=== PATIENT | female | born 1960 | race Caucasian/White ===

== ENCOUNTER → 2018-04-28 10:47 | Outpatient (CLI) | payer BC, SELFPAY | PROVIDERS: Family Provider Internal Medicine; PCP Internal Medicine; Visit Provider Internal Medicine Cardiovascular Disease | DX: R06.09 Other forms of dyspnea (principal); R06.02 Shortness of breath; I35.1 Nonrheumatic aortic (valve) insufficiency; I10 Essential (primary) hypertension; I51.7 Cardiomegaly | CPT/HCPCS: 93017; 93350 ==

== ENCOUNTER → 2018-04-29 10:59 | Outpatient (CLI) | payer BC, SELFPAY ==
--- NOTE | 2018-04-29 10:59 | ECHOD_ITS ---
Reason For Study: VALVE REPLACEMENT EVALUATION Procedure This was a 2D Doppler, Color Flow transthoracic echocardiogram. Exam performed in department. Left Ventricle Normal size and thickness. The estimated ejection fraction is 65 %. Stage 1 diastolic dysfunction. No regional wall motion abnormalities noted. Right Ventricle Normal size and thickness. Normal systolic function. Atria Normal left atrium. Normal right atrium. Normal atrial septum. Mitral Valve The mitral valve is structurally normal. No prolapse or stenosis seen. Tricuspid Valve Normal tricuspid valve. Trivial tricuspid valve insufficiency. Right ventricular systolic pressure estimated to be 27 mmHg. Aortic Valve Trisinus/trileaflet aortic valve. Mild diffuse aortic valve thickening. Mild (1+) aortic valve insufficiency. Pulmonic Valve Normal pulmonic valve. Trivial pulmonic valve insufficiency. Great Vessels Normal aortic root. Normal arch. Normal inferior vena cava. Inferior vena cava collapse with sniff. Pericardium/Pleural No pericardial effusion. MMode/2D Measurements & Calculations LVIDd: 4.4 cm IVSd: 1.00 cm LVOT diam: 2.0 cm LVIDs: 2.6 cm LVPWd: 0.98 cm LVOT area: 3.0 cm2 FS: 40.5 % Ao root diam: 3.2 cm LAV(MOD-bp): 43.4 ml LA A4 area: 14.0 cm2 LA dimension: 3.0 cm LAV(MOD-bp) Indexed: 24.1 ml/m2 LAV(MOD-sp2): 45.9 ml LAV(MOD-sp4): 37.6 ml RA A4 area: 9.3 cm2 Doppler Measurements & Calculations MV E max monroe: 57.9 cm/sec Lat Peak E' Monroe: 9.7 cm/sec Med Peak E' Monroe: 9.0 cm/sec MV A max monroe: 48.2 cm/sec E/E' lat: 5.9 E/E' med: 6.5 MV E/A: 1.2 Ao V2 max: 122.3 cm/sec AI max monroe: 366.1 cm/sec LV V1 max: 97.7 cm/sec Ao max P.0 mmHg AI max P.9 mmHg LV V1 max P.8 mmHg Ao V2 mean: 82.4 cm/sec AI dec slope: 187.7 cm/sec2 LV V1 mean P.1 mmHg Ao mean P.0 mmHg AI P1/2t: 571.1 msec LV V1 mean: 69.1 cm/sec Ao V2 VTI: 27.3 cm LV V1 VTI: 24.9 cm CARRILLO(I,D): 2.7 cm2 CARRILLO(V,D): 2.4 cm2 SV(LVOT): 74.5 ml PA V2 max: 96.1 cm/sec PI end-d monroe: 108.3 cm/sec TR max monroe: 231.1 cm/sec TR max P.5 mmHg Interpretation Summary The estimated ejection fraction is 65 %. Stage 1 diastolic dysfunction. Trivial tricuspid valve insufficiency. Right ventricular systolic pressure estimated to be 27 mmHg. Mild (1+) aortic valve insufficiency. Compared to echo report dated 04/08/2017, no appreciable changes noted. Ordering Physician: Keron Infante Referring Physician: Keron Infante Performed By: Mariia Forrest, MICHELE, RVT
== END ==
PROVIDERS: Family Provider Internal Medicine; PCP Internal Medicine; Visit Provider Internal Medicine Cardiovascular Disease
DX: I35.1 Nonrheumatic aortic (valve) insufficiency (principal); I49.3 Ventricular premature depolarization; I10 Essential (primary) hypertension
CPT/HCPCS: 93306

== ENCOUNTER → 2018-05-17 07:06 | Outpatient (CLI) | payer BC, SELFPAY ==
--- NOTE | 2018-05-17 07:24 | RAD_ITS ---
STUDY: X-RAY CHEST REASON FOR EXAM: Female, 58 years old. SOB, VT on holter, pt staes leaky aortic valve, having heart cath Aug 2 TECHNIQUE: Frontal and lateral views of the chest. COMPARISON: None. FINDINGS: The lungs are clear and expanded. There is no demonstrated pleural abnormality. Normal size heart. Normal mediastinum and tulio. Normal visualized pulmonary arteries. Normal visualized aortic arch and descending thoracic aorta. Normal visualized thoracic spine. Normal visualized ribs, clavicles, and shoulders. There is no demonstrated abnormality of the visualized soft tissue structures of the upper abdomen. RAD/Chest PA and Lateral IMPRESSION: Normal x-ray examination of the chest. Electronically Signed: Hamilton Luther MD at 20:14 EDT Tel , Service support ,
[2018-05-17 08:23] LABS: Absolute Neutrophil Count 4.5 X10^3/uL (2.0-7.7); Basophil# 0.05 X10^3/uL; Basophil% 0.6 % (0-1); Eosinophil# 0.99 X10^3/uL; Eosinophils% 11.9 % (0-5); Hematocrit 39.6 % (37-47); Hemoglobin 12.9 g/dl (12.0-15.0); Lymphocyte % 24.1 % (19-41); Mean Corp Hgb Conc 32.6 g/gl (32-36); Mean Corpuscular Hgb 29.5 pg (27.0-32.0); Mean Corpuscular Volume 90.4 fL (81-99); Mean Platelet Vol. 10.5 fl (6.2-12.0); Monocyte# 0.74 X10^3/uL; Monocyte% 8.9 % (0-10); Neutrophil % 54.1 % (47-70); Platelet Count 385 K/mm3 (150-450); RBC Distribution Width CV 12.3 % (11.6-14.6); RBC Distribution Width SD 39.8 fl (35.1-43.9); Red Blood Count 4.38 M/mm3 (4.2-5.4); White Blood Count 8.3 K/mm3 (4.4-11.0)
[2018-05-17 08:24] LABS: POSITIVE COUNT NO; POSITIVE DIFFERENTIAL NO; POSITIVE MORPHOLOGY NO
[2018-05-17 08:33] LABS: Prothrombin Time (Protime)PT. 13.4 SECONDS (11.7-14.9)
[2018-05-17 08:34] LABS: Partial Thromboplast Time 27.1 Seconds (24.1-36.2)
[2018-05-17 09:07] LABS: AST(SGOT) 16 U/L (15-37); Alanine Aminotransfer ALT/SGPT 22 U/L (13-56); Albumin, Serum 3.7 g/dL (3.2-5.0); Alkaline Phosphatase 73 U/L (45-117); Anion Gap 9 (5-15); BUN 15 mg/dL (7-18); BUN/Creat Ratio 19.5 RATIO (10-20); Bilirubin, Direct 0.09 mg/dL (0.00-0.30); Calcium,Total 9.1 mg/dL (8.5-10.1); Chloride 106 mmol/L (98-107); Cholesterol 167 mg/dL (200); Creatinine, Serum 0.77 mg/dL (0.55-1.02); EST Glomerular Filtration Rate 82 mL/min (>60); Est Glom Filt Rate - Afr Amer 99 mL/min (>60); Globulin 3.7 g/dL (2.2-4.2); Glucose 96 mg/dL (74-106); High Density Lipoprotein 57 mg/dL; Potassium 3.8 mmol/L (3.5-5.1); Protein, Total 7.4 g/dL (6.4-8.2); Sodium Level 142 mmol/L (136-145); Triglycerides 77 mg/dL; Very Low Density Lipoprotein 15 mg/dL (5-40)
== END ==
PROVIDERS: Family Provider Internal Medicine; PCP Internal Medicine; Visit Provider Internal Medicine Cardiovascular Disease
DX: I47.2 Ventricular tachycardia (principal); R06.09 Other forms of dyspnea; E78.5 Hyperlipidemia, unspecified; Z79.899 Other long term (current) drug therapy
CPT/HCPCS: 36415; 71046; 80048; 80061; 80076; 85025; 85610; 85730

== ENCOUNTER 2018-05-26 07:16 | Day surgery (SDC) | payer BC, SELFPAY ==
[2018-05-25 08:41] VITALS: BMI 29.5
--- NOTE | 2018-05-26 09:30 | CL.D_ITS ---
Patient Name: LANDY CROCKETT Study Date: 05/26/2018 Performing: Keron Infante MD Ht: 62.99 inches 160 cm : 1960 Wt: 167.55 lbs 76 kg Age: 58 Gender: female BSA: 1.79 PROCEDURE(S) PERFORMED BY16-UQL/LHC/COR/LV CLINICAL PROFILE AND INDICATIONS Indications: Suspected CAD, worsening dyspnea on exertion., New Onset Angina <= 2 months Heart Failure: None Stress/Imaging Stress Echocardiogram: Yes Result: NegativeStress Echocardiogram: Negative CAD Presentations: Other: Dyspnea on exertion Comorbidities/Risk Factors: Hypertension Dyslipidemia Chronic Lung Disease CONCLUSIONS Normal coronary arteries Normal LV size, wall motion,and systolic function Perserved Left Ventricular systolic function with normal EDP Left Ventricular Hypertrophy - Moderate RECOMMENDATIONS Referral back to Dr Chase for Asthma or other pulmonary issues. Increase cardizem to 240mg po daily for LVH and tachycardia. DESCRIPTION OF PROCEDURE The patient arrived to the procedure lab. The risks and benefits of the procedure as well as a full d escription of our services here and current unavailability of surgical backup were fully explained to the patient and/or their significant other prior to the catheterization. The Timeout was completed, verifying the correct patient and procedure. The patient's procedural site was prepped and draped in the usual fashion. Local anesthetic was given subcutaneously to right groin region with Lidocaine 2%. Using a modified Seldinger technique, arterial access was obtained via the right femoral artery, a 4 Fr sheath was inserted Venous access was obtained via the right femoral vein, a 7Fr sheath was insert ed. A 7Fr thermal dilution catheter was inserted and right heart pressures were recorded, it was then advanced to PA position for cardiac outputs. Thermal dilution cardiac outputs were then recorded. O2 saturations were then obtained. The Thermal dilution catheter was then removed. Left Ventriculograph y was performed in WRGIHT projection using a 4 Fr. Pigtail catheter. LV to AO pullback pressures were th en recorded. Left Coronary Artery selective angiography was performed in multiple views using a 4 Fr. JL5 catheter. Right Coronary Artery selective angiography was then performed in multiple views using a 4 Fr. 3DRC catheter.The arterial sheath was pulled and manual compression applied until hemostasis is achieved. CORONARY ANGIOGRAPHY DOMINANCE: Right Dominant LEFT HEART ASSESSMENT Left Ventricular Ejection Fraction: by LV Gram 75 % Normal LV wall motion Normal Left Ventricular systolic function Normal Left Ventricular systolic function Normal Left Ventricular End Diastolic Pressure Left Ventricular Hypertrophy RIGHT HEART ASSESSMENT Thermal CO: 6.11 Thermal CI: 3.41 Leonarda CO: 5.43 Leonarda CI: 3.03 PW: 08/03 7 PA: 15/06 14 RV: 27/-1 5 RA: 01/29 5 PVR: 92 SVR: 1270 Right Heart pressures - normal LEFT MAIN: Angiographically normal LEFT ANTERIOR DECENDING ARTERY: Angiographically normal CIRCUMFLEX ARTERY: Angiographically normal RIGHT CORONARY ARTERY: Angiographically normal COMPLICATIONS No Complications PROCEDURE MEDICATIONS SUMMARY OF HEMODYNAMIC DATA Time AIR REST ECG 07:37:26 RA 01/29 (5) SV 09:02:01 RV 27/-1, 5 09:02:13 PW 08/03 (7) PV 09:03:02 PA 15/06 (14) PA 09:03:17 LV 144/-23, 11 09:08:18 LV 134/-21, 10 09:08:28 LV 139/-19, 12 09:08:53 PW 09/08 (6) 09:08:53 LV 145/-18, 12 09:09:06 PW (8) 09:09:06 LV 145/-17, 13 09:10:25 RV 28/0, 5 09:10:25 LV 150/-16, 14 09:10:33 RV 29/0, 5 09:10:33 LV 135/-15, 17 09:11:42 LV 137/-16, 15 09:11:49 LVp 135/-16, 14 09:11:52 AOp 142/69 (102) 09:11:57 AO 136/72 (102) SA 09:13:19 Type SV CO (l/m) CI (l/m/ HR Time AIR REST Thermal 78.30 6.11 3.41 78 07:37:26 Leonarda 69.60 5.43 3.03 78 07:37:26 Label % O2 Pres/Loc Time AIR REST PA 71 PA 09:21:02 AO 96 PV 09:21:14 Signed By Keron Infante MD On 05/26/2018 09:29:16 Keron Infante MD
[2018-05-26 11:41] LABS: Blood Gas Specimen Type VEN; VBG BASE EXCESS 1 mmol/L (-1.0-3.5); VBG Bicarbonate 26 mmol/L (22-26); VBG Oxygen Content 27 mmol/L (23-33); VBG PO2 37 mmHg (25-40); VBG SO2 70 % (50-70); VBG pH 7.39 (7.32-7.42)
[2018-05-26 11:41] LABS: Base Excess 0 mmol/L (-2 to +2); Bicarbonate 25.1 mmol/L (22-26); Blood Gas Specimen Type ART; PO2 80 mmHG (75-100); SO2 96 % (95-99); Total Carbon Dioxide 26 mmol/L; pH 7.39 (7.35-7.45)
[2018-05-26 11:41] LABS: Blood Gas Specimen Type VEN; VBG BASE EXCESS 1 mmol/L (-1.0-3.5); VBG Bicarbonate 26 mmol/L (22-26); VBG Oxygen Content 27 mmol/L (23-33); VBG PO2 38 mmHg (25-40); VBG SO2 72 % (50-70); VBG pCO2 42.7 mmHg (41-51); VBG pH 7.39 (7.32-7.42)
== END 2018-05-26 14:27 | disposition home or self-care (01) ==
PROVIDERS: Family Provider Internal Medicine; PCP Internal Medicine; Visit Provider Internal Medicine Cardiovascular Disease
DX: R06.09 Other forms of dyspnea (principal); I10 Essential (primary) hypertension; E78.5 Hyperlipidemia, unspecified; J44.9 Chronic obstructive pulmonary disease, unspecified; R94.39 Abnormal result of other cardiovascular function study; R94.31 Abnormal electrocardiogram [ECG] [EKG]; Z79.899 Other long term (current) drug therapy; Z79.02 Long term (current) use of antithrombotics/antiplatelets; Z79.82 Long term (current) use of aspirin; Z87.891 Personal history of nicotine dependence
CPT/HCPCS: 82803; 93460; J7040; C1751; C1769; C1894; Q9967

== ENCOUNTER → 2018-11-04 13:58 | Outpatient (CLI) | payer BC, SELFPAY ==
[2018-11-04 13:34] VITALS: BMI 30.4
[2018-11-04 14:48] LABS: T4 Total, Thyroxin 8.5 ug/dL (4.8-13.9); Thyroid Stim Hormone (TSH) 2.06 uIU/mL (0.358-3.74)
== END ==
PROVIDERS: Family Provider Internal Medicine; PCP Internal Medicine; Referring Provider Internal Medicine Cardiovascular Disease; Visit Provider Internal Medicine Cardiovascular Disease
DX: I48.91 Unspecified atrial fibrillation (principal); R00.2 Palpitations
CPT/HCPCS: 36415; 84436; 84443

== ENCOUNTER → 2019-06-10 07:43 | Outpatient (CLI) | payer BC, SELFPAY ==
[2019-06-01 08:52] VITALS: BMI 30.4
[2019-06-10 08:56] LABS: AST(SGOT) 13 U/L (15-37); Alanine Aminotransfer ALT/SGPT 24 U/L (13-56); Albumin, Serum 3.7 g/dL (3.2-5.0); Alkaline Phosphatase 75 U/L (45-117); Cholesterol 145 mg/dL (200); Globulin 3.7 g/dL (2.2-4.2); High Density Lipoprotein 55 mg/dL; Protein, Total 7.4 g/dL (6.4-8.2); Triglycerides 72 mg/dL; Very Low Density Lipoprotein 14 mg/dL (5-40)
== END ==
PROVIDERS: Family Provider Internal Medicine; PCP Internal Medicine; Referring Provider Internal Medicine Cardiovascular Disease; Visit Provider Internal Medicine Cardiovascular Disease
DX: E78.00 Pure hypercholesterolemia, unspecified (principal)
CPT/HCPCS: 36415; 80061; 80076

== ENCOUNTER → 2019-06-15 13:46 | Outpatient (CLI) | payer BC, SELFPAY ==
[2019-06-01 08:52] VITALS: BMI 30.4
--- NOTE | 2019-06-15 13:48 | ECHOCS_ITS ---
Reason For Study: AFIB, VALVE REPL EVAL Procedure This was a 2D Doppler, Color Flow transthoracic echocardiogram. The study was technically difficult. Contrast injection was performed. Exam performed in department. Left Ventricle Normal size and thickness. The estimated ejection fraction is 65 %. Stage 1 diastolic dysfunction. No regional wall motion abnormalities noted. Right Ventricle Normal size and thickness. Normal systolic function. Atria Normal left atrium. Normal right atrium. Normal atrial septum. Mitral Valve The mitral valve is structurally normal. No prolapse or stenosis seen. Tricuspid Valve Normal tricuspid valve. Mild (1+) tricuspid valve insufficiency. Right ventricular systolic pressure estimated to be 26 mmHg. Aortic Valve Trisinus/trileaflet aortic valve. Mild (1+) aortic valve insufficiency. Pulmonic Valve Normal pulmonic valve. Great Vessels Normal aortic root. Normal arch. Normal inferior vena cava. Inferior vena cava collapse with sniff. Pericardium/Pleural No pericardial effusion. Medication 22 gauge I.V. with prn adaptor inserted into right arm. Diluted definity 3ml given slow IV push to enhance endocardial definition. MMode/2D Measurements & Calculations LVIDd: 3.7 cm IVSd: 0.98 cm Ao root diam: 3.4 cm LVIDs: 2.1 cm LVPWd: 0.95 cm RVDd: 2.4 cm FS: 43.2 % LAV(MOD-bp): 39.6 ml EDV(MOD-sp4): 74.1 ml EDV(MOD-sp2): 79.9 ml LAV(MOD-bp) Indexed: 22.0 ml/m2 ESV(MOD-sp4): 27.0 ml EF(MOD-sp2): 68.7 % LAV(MOD-sp2): 50.2 ml EF(MOD-sp4): 63.6 % LAV(MOD-sp4): 31.5 ml SV(MOD-sp4): 47.1 ml SV(MOD-sp2): 54.9 ml LA A4 area: 14.5 cm2 LA dimension(2D): 2.9 cm RA A4 area: 11.1 cm2 Time Measurements MV dec time: 0.23 sec Doppler Measurements & Calculations MV E max monroe: 42.7 cm/sec Lat Peak E' Monroe: 10.6 cm/sec Med Peak E' Monroe: 4.8 cm/sec MV A max monroe: 48.8 cm/sec E/E' lat: 4.0 E/E' med: 8.8 MV E/A: 0.88 Ao V2 max: 151.7 cm/sec AI max monroe: 467.6 cm/sec LV V1 max: 121.6 cm/sec Ao max P.2 mmHg AI max P.5 mmHg LV V1 max P.9 mmHg AI dec slope: 244.4 cm/sec2 AI P1/2t: 560.4 msec PA V2 max: 103.6 cm/sec PI end-d monroe: 92.2 cm/sec TR max monroe: 232.2 cm/sec TR max P.6 mmHg Interpretation Summary The estimated ejection fraction is 65 %. Stage 1 diastolic dysfunction. Mild (1+) tricuspid valve insufficiency. Right ventricular systolic pressure estimated to be 26 mmHg. Mild (1+) aortic valve insufficiency. Compared to echo report dated 04/29/2018, no appreciable changes noted. The study was technically difficult. Contrast injection was performed. Ordering Physician: Keron Infante Referring Physician: Yennifer Johnson Performed By: Angela Poe, MICHELE, RVT
== END ==
PROVIDERS: Family Provider Internal Medicine; PCP Internal Medicine; Referring Provider Internal Medicine Cardiovascular Disease; Visit Provider Internal Medicine Cardiovascular Disease
DX: I48.91 Unspecified atrial fibrillation (principal); I35.1 Nonrheumatic aortic (valve) insufficiency; I10 Essential (primary) hypertension; R06.09 Other forms of dyspnea
CPT/HCPCS: 93306; Q9957; A4216; C8929

== ENCOUNTER → 2019-07-03 14:48 | Outpatient (CLI) | payer BC, SELFPAY ==
[2019-06-01 08:52] VITALS: BMI 30.4
--- NOTE | 2019-07-03 14:51 | BI_ITS ---
MAMMOGRAPHY - BILATERAL SCREENING REASON FOR EXAM: Female, 59 years old. Routine annual screening examination. PERTINENT HISTORY: Mother with breast cancer. Remote left excisional breast biopsy. TECHNIQUE: Digital bilateral breast darrell (3D mammographic acquisition) in the CC and MLO projections. 2-D mediolateral oblique (MLO) and craniocaudad (CC) views of both breasts were obtained. CAD: Full Field Digital Mammography with Computer Added Detection was performed. COMPARISON: None. FINDINGS: Breast Composition: The breasts are heterogeneously dense, which may obscure small masses. There are no dominant masses or suspicious calcifications. Small benign-appearing bilateral axillary lymph nodes. No other significant abnormalities are identified. BI/SCREEN MAMM (CAD) W/DARRELL BILAT IMPRESSION: Negative screening mammogram. Yearly followup mammogram recommended. (A) ASSESSMENT CATEGORY: BIRADS Category 2: Benign. A letter regarding these results will be sent to the patient by the facility within 30 days. Approximately 10% of breast cancers are not detected by mammography. A normal mammogram should not delay biopsy of a clinically suspicious abnormality. [id number] Electronically Signed: Fady Villanueva, at 12:50 EDT , Service support ,
== END ==
PROVIDERS: Family Provider Internal Medicine; PCP Internal Medicine; Referring Provider Surgery; Visit Provider Internal Medicine
DX: Z12.31 Encounter for screening mammogram for malignant neoplasm of breast (principal)
CPT/HCPCS: 77063; 77067

== ENCOUNTER 2019-07-25 12:17 | Observation (INO) | payer BC, SELFPAY ==
[2019-06-01 08:52] VITALS: BMI 30.4
[2019-07-12 09:31] VITALS: BMI 30.4
[2019-07-20 08:17] LABS: Hematocrit 39.7 % (37-47); Hemoglobin 12.8 g/dL (12.0-15.0); Mean Corp Hgb Conc 32.2 g/dL (32-36); Mean Corpuscular Hgb 29.5 pg (27.0-32.0); Mean Corpuscular Volume 91.5 fL (81-99); Mean Platelet Vol. 10.1 fl (6.2-12.0); Platelet Count 400 K/mm3 (150-450); RBC Distribution Width CV 12.1 % (11.6-14.6); RBC Distribution Width SD 40.3 fl (35.1-43.9); Red Blood Count 4.34 M/mm3 (4.2-5.4); White Blood Count 8.1 K/mm3 (4.4-11.0)
[2019-07-20 08:44] LABS: Anion Gap 7 (5-15); BUN 15 mg/dL (7-18); BUN/Creat Ratio 16.9 RATIO (10-20); Calcium,Total 9.1 mg/dL (8.5-10.1); Chloride 108 mmol/L (98-107); Creatinine, Serum 0.89 mg/dL (0.55-1.02); EST Glomerular Filtration Rate 69 mL/min (>60); Est Glom Filt Rate - Afr Amer 84 mL/min (>60); Glucose 102 mg/dL (74-106); Sodium Level 143 mmol/L (136-145)
--- NOTE | 2019-07-24 18:28 | HP.PCM_ITS ---
History and Physical Date of Admission: 07/25/19 HISTORY OF PRESENT ILLNESS 59 year old woman presents with complaints of bilateral macromastia as well as associated painful symptomatology of neck pain, thoracic back pain, bilateral shoulder pain from shoulder grooving from the weight of her breasts on her bra straps, and inframammary intertrigo for which she uses powders for relief. She denies any trauma to her breasts. Denies any nipple discharge. Her mammogram on 07/03/19 showed the breasts are heterogeneously dense, which may obscure small masses. There are no dominant masses or suspicious calcifications. Small benign-appearing bilateral axillary lymph nodes. No other significant abnormalities are identified. She does have a family history of breast cancer. Her breast reduction has been approved. She is scheduled for surgery 07/25/19. She presents at this time for pre op evaluation. PAST MEDICAL HISTORY Atrial fibrillation Essential (primary) hypertension Mixed hyperlipidemia Paroxysmal ventricular tachycardia Chest pain Syncope and collapse Dyspnea on exertion Dizziness Nonrheumatic aortic valve insufficiency Asthma Palpitations Left ventricular hypertrophy Back problem Breast lump in female Frequent headaches PAST SURGICAL HISTORY left heart catheterization tubal ligation lumpectomy of left breast partial hysterectomy tonsillectomy ALLERGIES perfume bee pollen codeine niacin oxycodone HCl [From Percocet] propoxyphene napsylate [From Darvocet-N] simvastatin [From Zocor] bees electrode adhesive MEDICATIONS Epi Pen (for allergic rxn) [Epi Pen] losartan-hydrochlorothiazide flecainide albuterol sulfate HFA apixaban ezetimibe Budesonide/Formoterol Diltiazem HCl [Cartia Xt] FAMILY HISTORY Father - CVA (cerebral vascular accident), Diabetes, Hypertension, High cholesterol Mother - Breast cancer, Cancer, Diabetes, Hypertension Grandmother - CAD (coronary artery disease), Myocardial infarction Brother - Diabetes Aunt - Cancer SOCIAL HISTORY Smoking Status: Former smoker quit date: 06/25/96 pack-years: 16 Tobacco: How many years used: 12 Electronic Cigarette Use: not used how long ago did patient quit smokin years ago second hand exposure: No alcohol intake: current alcohol intake frequency: holidays/special occasions only Alcohol type: wine substance use type: does not use REVIEW OF SYSTEMS General - Denies fever, fatigue, and weight loss. Eyes - Denies cataracts and glaucoma. ENT - Denies nasal congestion and sore throat. Endocrine - Denies excessive thirst and urination. Has family history of breast cancer. Skin - Denies suspicious lesions and skin cancer. Has inframammary intertrigo for which she uses powders for relief. Musculoskeletal - Denies joint pain, joint stiffness, weakness of muscles and joints, and arthritis. Has neck pain and back pain. Her neck and back pain involve cervical and thoracic area. Has bilateral shoulder pain from shoulder grooving from the weight of her breasts on her bra straps. Neuro - Has headaches. Has lightheadedness. Cardiovascular - Denies chest pain and shortness of breath with exertion. Denies fatigue. Has lightheadedness. Is on Eliquis for atrial fibrillation. Psych - Has a history of anxiety and depression. Respiratory - Has shortness of breath and asthma. Denies chronic cough. Patient is a former smoker. Gastrointestinal - Denies nausea, vomiting, diarrhea and constipation. Hematologic - Has abnormal bruising. Is on Eliquis for atrial fibrillation. Genitourinary - Denies hematuria. Has frequent urinary tract infections. PHYSICAL EXAMINATION General - Alert and oriented. Patient's bra size is 42 DD. HEENT - PERRL. EOMI. Throat is clear. Neck - Supple. No bony tenderness. There is some pericervical soft tissue tenderness. Lungs- Clear to auscultation. Heart - Regular rate and rhythm. Breasts - Patient has bilateral macromastia. No breast masses palpable. No axillary adenopathy noted. left breast is a little larger. Distance from midclavicular line on the left to the nipple is 33 cm and from the nipple to the inframammary fold is 13 cm. Distance from midclavicular line on the right to the nipple is 32 cm and from nipple to the inframammary fold is 11 cm. Nipple areolar complex diameter is 6 cm bilaterally. No active inframammary intertrigo noted at this time. Abdomen - Soft and non distended. Back - No bony tenderness noted. There is perivertebral soft tissue tenderness in the upper thoracic area. Extremities - FROM. No axillary adenopathy. Radial pulses are palpable. There is some bilateral shoulder tenderness with shoulder grooving from the weight of her breasts on her bra straps. Neuro - CN II-XII grossly intact. Psych - Normal and mood and affect. ASSESSMENT 1. Bilateral macromastia. 2. Neck pain. 3. Thoracic back pain. 4. Bilateral shoulder pain from shoulder grooving from the weight of the breasts on her bra straps. 5. Inframammary intertrigo. 6. Family history of breast cancer. 7. Former smoker. PLAN Discussed with the patient the procedure of breast reduction mammoplasty. I feel this procedure would be beneficial in this patient as it would help relieve her painful symptomatology. There is a family history of breast cancer. She had a mammogram on 07/03/19 that showed the breasts are heterogeneously dense, which may obscure small masses. There are no dominant masses or suspicious calcifications. Small benign-appearing bilateral axillary lymph nodes. No other significant abnormalities are identified. I would remove approximately 600 g of breast tissue per side. We will send the tissue to pathology for analysis to rule out carcinoma. Discussed with patient the extent of scarring for this procedure. The biggest risk for wound healing problems is the T-zone area. Usually wound care and sometimes antibiotics are necessary for healing in this area. She would have drains in for a few days depending on the amount of tissue that is removed. She will be on antibiotics until the drains are removed. In general, the final breast size would range from a full C to a low D cup. Patient voices understanding. Surgery will be done under general anesthesia with a surgical observation overnight stay in the hospital. We have received medical approval for the surgery. It is scheduled for 07/25/19. Patient was informed of the risks and complications of the procedure including alternatives to surgery. These were discussed with her personally. She voices understanding and wishes to proceed. Some of the risks and complications were included in a form from the [employer]. Will also check with her Certified Prosthetist Vice President regarding the Eliquis to see if it can safely be held before her surgery.
[2019-07-25] VITALS (16 sets, daily range): BP systolic 98–139; BP diastolic 60–76; PULSE 79–101; RESP 16–17; TEMP 36–36.7; O2SAT 94–100; BMI 30.5
[2019-07-25] MEDS: Acetaminophen 500 MG Tablet 1000 MG PO ×3 (05:30→23:06)
[2019-07-25] MEDS: Gabapentin 600 MG Tablet PO (05:30)
[2019-07-25] MEDS: Scopolamine 1mg/72hr Patch 1 PATCH TRANSDERM. (06:09)
[2019-07-25] MEDS: Magnesium Sulfate 4gm/100mL 4 GM/100 ML IV.SOLN. IV (06:10)
[2019-07-25] MEDS: Lactated Ringers 1,000 ML 40 ML IV (06:19)
[2019-07-25 06:35] LABS: Bedside Glucose 182 mg/dL (70-110)
[2019-07-25] MEDS: Cefazolin 2 GM in 0.9% Normal Saline 100 ML IV (07:29)
--- NOTE | 2019-07-25 07:30 | BR_PTH ---
PATIENT: LANDY CROCKETT LOC: MS3 U#:[id number] AGE/SX: 59/F ROOM: MS308 RE07/25/[address]: Dr. Israel Dow MD : 1960 BED: 1 DIS: 07/28/2019 SPEC #: [id number] RECD: 07/25/19 12:25 STATUS: MAO RENoel #: [id number] MIGUELITO: 07/25/19 07:[address]: Israel Dow DEPT: SURGICAL PATHOLOGY RECD BY: Vu Barcenas ENTERED: 07/25/19 14:16 SP TYPE: MAMOPLASTY OTHR DR: Dr. Yennifer Johnson MD Tissues: A - Left breast, NOS B - Right breast, NOS Procedures: Surgery Specimen Level IV HEADER OPERATION: ERAS, breast, reduction mammoplasty PRE-OP DIAGNOSIS: Bilateral macromastias, neck, thoracic back and bilateral shoulder pain TISSUE SUBMITTED: A. Left breast tissue, B. Right breast tissue MICROSCOPIC DIAGNOSIS A. Left breast tissue, reduction mammoplasty: Benign breast tissue (733 gm). Focal area of dense fibrosis and lobular involution. Focal microcalcifications. B. Right breast tissue, reduction mammoplasty: Benign breast tissue (689 gm). Focal dense fibrosis and lobular involution. Focal fibrocystic changes and intraductal hyperplasia without atypia. SJ:kartik 07/27/19 COMMENT Please make reference to previous specimen ([id number]) left breast, core biopsy with diagnosis of breast tissue with dense fibrosis and mild chronic inflammation. MICROSCOPIC DESCRIPTION Slides are reviewed. GROSS DESCRIPTION A - Received in fixative is one container labeled with the patient's name and designated left breast tissue. The specimen consists of multiple pieces of fibroadipose tissue with a few of the pieces showing skin pieces and also detached pieces of skin weighing in aggregate 733 gm and measuring in aggregate 25 x 20 x 6 cm. No skin lesion is identified. Sections reveal patel-yellow cut surfaces mixed with patel-white fibrous area. The largest fibrous area measures 3.5 cm in greatest dimension. Psychotherapist sections are submitted in seven cassettes. Cassette 1 also contains the skin. / SJ:rg 07/26/19 B - Received in fixative is one container labeled with the patient's name and designated right breast tissue. The specimen consists of multiple pieces of fibroadipose tissue with a few of the pieces showing skin and also detached pieces of skin weighing in aggregate 689 gm and measuring in aggregate 22 x 18 x 6 cm. No skin lesion is identified. Sections reveal patel-yellow adipose cut surfaces mixed with patel-white fibrous areas. The largest fibrous area measures 3 cm in greatest dimension. Psychotherapist sections are submitted in eight cassettes. Cassette 1 also contains the skin. / SJ:rg 07/26/19 TC: 5 CPT: 07132 x2
[2019-07-25] MEDS: Lactated Ringers 1,000 ML 60 ML IV ×2 (08:30→14:54)
--- NOTE | 2019-07-25 12:15 | OP.PCM_ITS ---
Report of Operation Date of Procedure: 07/25/19 Pre-Operative Diagnosis: 1. Bilateral macromastia. 2. Neck pain. 3. T horacic back pain. 4. Bilateral shoulder pain from shoulder grooving from the weight of the breasts on her bra straps. 5. Inframammary intertrigo. 6. Family history of breast cancer. 7. Former smoker. Post-Operative Diagnosis: Same. Surgery/Procedure Performed:: Bilateral breast reduction mammaplasty. Description of Surgical Findings:: 59 year old woman presents with complaints of bilateral macromastia as well as associated painful symptomatology of neck pain, thoracic back pain, bilateral shoulder pain from shoulder grooving from the weight of her breasts on her bra straps, and inframammary intertrigo for which she uses powders for relief. She denies any trauma to her breasts. Denies any nipple discharge. Her mammogram on 07/03/19 showed the breasts are heterogeneously dense, which may obscure small masses. There are no dominant masses or suspicious calcifications. Small benign-appearing bilateral axillary lymph nodes. No other significant abnormalities are identified. She does have a family history of breast cancer. Her breast reduction has been approved. She is scheduled for surgery 07/25/19. Patient was informed of the risks and complications of the procedure including alternatives to surgery. These were discussed with the patient personally. Patient voices understanding and wishes to proceed. Some of the risks and complications were included in a form from the [employer]. IV Fluids - 3000 ml. Urine Output - 1400 ml. Tissue removed from the left breast - 666 grams. Tissue removed from the right breast - 616 grams. I used Domo absorbable hemostat, (I used 4 vials, 2 in each breast). Reference Number - [id number]. Lot Number - [id number]. Expiration - January 20, 2024. community development officer: Oliver Silveira Type of Anesthesia:: General Specimen's removed: 1. Left breast tissue to Pathology. 2. Right breast tissue to Pathology. Drains: Prabhu x 2 (one in each breast). Estimated Blood Loss (mL): 150 ml. Fluids Replaced: 4400 ml (IV Fluids 3000 ml, Urine Output 1400 ml). Description of Procedure: The patient was taken to the operating room and in the sitting position, preoperative markings were made. The sternal midline was marked down to the umbilicus. The inframammary folds were marked bilaterally. The midclavicular line was then marked down to the nipple, then from the nipple to the inframammary fold. The inframammary fold was then superimposed on the midclavicular line and I made a point 1 cm below that to be the new position of the nipple-areolar complex. 7 cm lines were then drawn divergent from that point to encompass the nipple-areolar complex. The distance between the divergent lines was 10 cm. The patient was then placed in the supine position and placed under general anesthesia and her breasts were prepped and draped in usual fashion. SCDs were placed for DVT prophylaxis. Perioperative antibiotics were given intravenously. A Rondon catheter was also placed. I then tattooed the preoperative markings with methylene blue and 25- gauge needle. I also tattooed the 12 o'clock position of the nipple-areolar complex to help with positioning of the nipple-areolar complex when it is brought through the keyhole incision at the end of the procedure to minimize kinking and twisting of the central breast mound pedicle. I then yaakov straight lines down from the lines drawn divergent around the nipple-areolar complex down to the inframammary fold. The width of the pedicle is 10 cm. I then used a 42 mm circular template for a new size of the nipple-areolar complex. The central markings were infiltrated with Xylocaine and epinephrine. The central skin was then deepithelialized. I started on the right side first and then went to the left side. I then mobilized medial and lateral breast flaps at the level of Caryl's fascia down to within a centimeter of the chest wall. This was met in the midline of the breast with dissection at the level of Caryl's fascia down to within a centimeter of the chest wall. Once the central breast mound pedicle was from the skin envelope, the reduction was then begun. Most of the tissue was removed from the superior aspect of the breast and the lateral aspect of the breast. I then sutured the leading edge of the medial and lateral breast flaps to the midline of the inframammary fold with 2-0 Vicryl suture. The vertical incision was approximated using surgical clips. The excess tissue from the medial and lateral breast flaps were excised and the hori zontal incision was approximated using surgical clips. The patient was then placed in a sitting position. Using a vertical limb length of 4.5 cm, I yaakov the new position of the new nipple-areolar complexes on both breasts. They were in good position on the central aspect of the breast mound. Good symmetry was noted between the left breast and the right breast. Good shape and contour and projection was noted and appeared clinically to be at least a full C cup. The patient was then placed back in the supine position and the surgical clips were removed. The breast wounds were then irrigated with Irrisept 0.05% Chlorhexidine and then followed with saline. Hemostasis was obtained using electrocautery. The tissue removed from the left breast was 666 grams. The tissue removed from the right breast was 616 grams. The tissue that was removed from the breasts was sent to Pathology for analysis to rule out carcinoma. After hemostasis was obtained using electrocautery, I then sprayed Domo absorbable hemostat into both breast wounds. I used two vials for each side. I then placed a size 15 Prabhu drain into each breast wound to be brought through the lateral aspect of the horizontal incision. I then closed the breast wounds by first approximating the leading edge of the medial and lateral breast flaps to the midline of the inframammary fold with 2-0 Vicryl suture. The deep dermis and subcutaneous tissue of the vertical incision and the horizontal incisions were approximated using 3-0 Monocryl interrupted sutures. The horizontal incision was then approximated using 4-0 V-Loc unidirectional barbed running subcuticular suture. I also placed a few 4-0 Prolene vertical mattress interrupted sutures at the level of the Tzone. The vertical incision was then closed on the skin with 4-0 Prolene interrupted sutures. With a vertical limb length of 4.5 cm, I yaakov a circular incision where the nipple-areolar complex would be brought through this keyhole incision. Incisions were made and the nipple areolar complex was brought through the keyhole incision. The 12 o'clock position of the nipple-areolar complex was lined up with the 12 o'clock position of the breast skin. The nipple-areolar complex was secured to the breast skin using 3-0 Monocryl interrupted sutures for deep dermis and subcutaneous tissue. The skin was approximated using 4-0 Prolene simple interrupted sutures. This was then covered with Histoacryl skin tissue adhesive. I sutured the drain to the skin using 3-0 nylon suture. At the end of the procedure, the breasts were soft and symmetrical with no evidence of vascular compromise. No evidence of hematomas were noted. The nipples were viable. I then dressed the breasts with a Kerlix gauze and a surgical bra. The patient tolerated the procedure well and will be sent to the recovery room in satisfactory condition. She will be admitted for surgical observation overnight stay. She will go home tomorrow once she is tolerating oral pain medication. I will remove the drains in a few days. She will be maintained on antibiotics until the drains are removed. She will keep her head elevated during the initial postoperative period. She will be maintained on a lifting restriction and keep her head elevated during the initial postoperative period. Postoperatively, she may get a compression sports bra as well. She will have th e Rondon removed in the morning. She will be sent home on antibiotics and pain medicine for a few days. Sutures will be removed in 1-2 weeks. Grafts/Implants Used: None. - Complications None. - Admit VTE Documentation VTE Present on Admission: No VTE Mechan Device Prophylaxis: SCD's VTE Pharm Prophylaxis ordered?: Yes Code Visit Surgery Charges CPT - 23776-33 ICD-10 - N62, M54.2, M54.6, M25.519, L30.4, Z80.3, Z87.891 15896 N62, M54.2, M54.6, M25.519, L30.4, Z80.3, Z87.891
[2019-07-25 13:06] LABS: Bedside Glucose 107 mg/dL (70-110)
--- NOTE | 2019-07-25 13:19 | SUR.PHASEI ---
Blood Glucose 107
[2019-07-25] MEDS: Cefazolin 1 GM/50 ML BAG IV ×2 (15:00→21:03)
[2019-07-25] MEDS: Ensure Surgery 237 ML LIQUID PO (16:49)
[2019-07-25] MEDS: Gabapentin 100 MG Capsule 200 MG PO (16:49)
[2019-07-25] MEDS: Gemfibrozil 600 MG Tablet PO (16:49)
[2019-07-25] MEDS: HYDROmorphone 1 MG/ML Syringe IV (18:47)
[2019-07-25] MEDS: Budesonide Respules 0.5 MG/2 ML AMPUL.NEB. INHALATION (19:28)
[2019-07-25] MEDS: Albuterol 2.5 MG/3 ML VIAL.NEB. INHALATION (19:28)
--- NOTE | 2019-07-25 20:00 | NURSING ---
ATTEMPTED TO GET PT OUT OF BED. PT C/O OF FEELING DIZZY. WILL CHECK BACK LATER TO SEE IF PT CAN GO TO CHAIR. SCOPOLAMINE NAUSEA PATCH BEHIND RT EAR D/C
[2019-07-25] MEDS: Docusate Sodium 100 MG Capsule PO (21:03)
[2019-07-25] MEDS: Flecainide 100 MG Tablet PO (21:03)
[2019-07-25 21:16] LABS: Bedside Glucose 220 mg/dL (70-110)
--- NOTE | 2019-07-25 21:25 | NURSING ---
PT CONTINUES TO C/O DIZZINESS. PT NOT UP YET. PT RT BREAST WITH NO DRAINAGE NOTED IN LUNA. ON THE RT FLANK SIDE OF DRESSING WITH MODERATE AMOUNT OF RED DRAINAGE NOTED. AREA OUTLINED. SMALL AMOUNT OF DRAINAGE NOTED ON LEFT BREAST FLANK AREA. WILL CONTINUE TO MONITOR. PT STATED EARLIER TODAY SHE NOTICED HER BREAST FELT WET ABOUT 1600.
--- NOTE | 2019-07-25 23:20 | NURSING ---
LUNA ON RT STILL NOT DRAINING TUBING STRIPED AND NOW LUNA DRAINED 50CC OF RED DRAINAGE. DRESSING TO RT BREAST REINFORCED
[2019-07-26] VITALS (7 sets, daily range): BP systolic 107–129; BP diastolic 42–66; PULSE 75–105; RESP 16–18; TEMP 36.2–36.7; O2SAT 93–99
[2019-07-26] MEDS: HYDROmorphone 1 MG/ML Syringe IV (03:11)
[2019-07-26] MEDS: Cefazolin 1 GM/50 ML BAG IV ×3 (05:13→21:30)
[2019-07-26] MEDS: Acetaminophen 500 MG Tablet 1000 MG PO ×3 (05:14→17:59)
[2019-07-26 05:33] LABS: Hematocrit 29.1 % (37-47); Hemoglobin 9.2 g/dL (12.0-15.0); Mean Corp Hgb Conc 31.6 g/dL (32-36); Mean Corpuscular Hgb 29.7 pg (27.0-32.0); Mean Corpuscular Volume 93.9 fL (81-99); Mean Platelet Vol. 9.8 fl (6.2-12.0); Platelet Count 287 K/mm3 (150-450); RBC Distribution Width CV 12.5 % (11.6-14.6); RBC Distribution Width SD 42.8 fl (35.1-43.9); White Blood Count 16.8 K/mm3 (4.4-11.0)
[2019-07-26 05:53] LABS: Anion Gap 5 (5-15); BUN 12 mg/dL (7-18); BUN/Creat Ratio 16.3 RATIO (10-20); Calcium,Total 8.1 mg/dL (8.5-10.1); Chloride 109 mmol/L (98-107); Creatinine, Serum 0.74 mg/dL (0.55-1.02); EST Glomerular Filtration Rate 86 mL/min (>60); Est Glom Filt Rate - Afr Amer 104 mL/min (>60); Estimated Creatinine Clearance 67.71 ml/min; Glucose 120 mg/dL (74-106); Potassium 4.2 mmol/L (3.5-5.1); Sodium Level 144 mmol/L (136-145)
[2019-07-26] MEDS: HYDROmorphone 2 MG TABLET PO (06:16)
[2019-07-26] MEDS: Gemfibrozil 600 MG Tablet PO ×2 (06:18→15:47)
[2019-07-26] MEDS: Budesonide Respules 0.5 MG/2 ML AMPUL.NEB. INHALATION ×2 (06:58→19:19)
[2019-07-26] MEDS: Albuterol 2.5 MG/3 ML VIAL.NEB. INHALATION ×3 (06:58→19:18)
[2019-07-26] MEDS: dilTIAZem CD 240 MG Capsule PO (09:07)
[2019-07-26] MEDS: Ezetimibe 10 MG Tablet PO (09:07)
[2019-07-26] MEDS: Losartan Potassium 50 MG Tablet PO (09:07)
[2019-07-26] MEDS: hydroCHLOROthiazide 12.5mg 12.5 MG PO (09:07)
[2019-07-26] MEDS: Docusate Sodium 100 MG Capsule PO (09:07)
[2019-07-26] MEDS: Gabapentin 100 MG Capsule 200 MG PO ×3 (09:07→17:59)
[2019-07-26] MEDS: Flecainide 100 MG Tablet PO ×2 (09:07→21:29)
[2019-07-26] MEDS: Ensure Surgery 237 ML LIQUID PO ×3 (09:14→18:01)
[2019-07-26] MEDS: Enoxaparin 40 MG/0.4 ML Syringe SC (09:14)
--- NOTE | 2019-07-26 09:34 | NURSING ---
cont. pulse ox placed 07/25/19 @ 1440
--- NOTE | 2019-07-26 13:05 | PCM.PN.SRG ---
Subjective: Postop #1 Patient is having incisional pain. The Dilaudid was not agreeing with her. She was having some dizziness after surgery. - Physical Exam General: Alert, Oriented x3 HEENT: PERRLA, EOMI Oral: Moist Mucosa Neck: Supple Abdomen: Soft, Non-Distended Skin: Incision - breast incisions are dry and intact. Breasts are soft and symmetrical. Nipples are viable. Neurological: Cranial nerves II-XII grossly intact Psych/Mental Status: Normal Affect, Appropriate Vital Signs Temp Pulse Resp BP Pulse Ox 98.1 F 90 18 113/42 L 96 07/26/19 09:29 07/26/19 09:29 07/26/19 09:29 07/26/19 09:29 07/26/19 09:29 Oxygen Flow Rate (L/min) 6 Oxygen Delivery Method Room Air Weight: 172 lb 6.424 oz Body Mass Index (BMI) 30.5 Intake and Output for Last 24 Hours 07/24/19 07/25/19 07/26/19 23:59 23:59 23:59 Intake Total 7230 / 7230 1910 / 1910 Output Total 3975 / 3975 2697 / 2697 Balance 3255 / 3255 -786 / -786 Drainage 125 ml yesterday, 97 ml today Laboratory Tests Past 24 Hrs 07/26/19 07/26/19 05:26 05:26 WBC 16.8 H RBC 3.10 L Hgb 9.2 L Hct 29.1 L MCV 93.9 MCH 29.7 MCHC 31.6 L RDW Std Deviation 42.8 RDW Coeff of Ela 12.5 Plt Count 287 MPV 9.8 Sodium 144 Potassium 4.2 Chloride 109 H Carbon Dioxide 30.0 Anion Gap 5 BUN 12 Creatinine 0.74 Estim Creat Clear Calc 67.71 Est GFR (MDRD) Af Amer 104 Est GFR (MDRD) Non-Af 86 BUN/Creatinine Ratio 16.3 Glucose 120 H Calcium 8.1 L POC Glucose 07/25/19 07/25/19 21:12 13:02 POC Glucose 220 H 107 Medical Necessity - Tobacco Use Smoking Status: Former smoker Tobacco Use: Non-smoker Assessment/Plan All Active Problems (Last Reviewed 07/12/19 @ 09:30 by Sue Cassidy) Dyspnea on exertion (Acute) Acute bronchitis (Resolved) Asthma with exacerbation (Resolved) Chest pain (Resolved) Dizziness and giddiness (Resolved) Dyspnea on exertion (Resolved) Syncope and collapse (Resolved) 1. Bilateral macromastia. 2. Neck pain. 3. Thoracic back pain. 4. Bilateral shoulder pain from shoulder grooving from the weight of the breasts on her bra straps. 5. Inframammary intertrigo. 6. Family history of breast cancer. 7. Former smoker. 8. s/p bilateral breast reduction mammaplasty. 9. Anemia of chronic disease, acute on chronic. 10. Postop dizziness. Patient is having some difficulty with pain control as the Dilaudid is not agreeing with her. She states she has had Morphine before. Will order that along with some Ultram. May also benefit from long acting Morphine as well for a couple of weeks. Would like her to have better pain control prior to discharge. The scopolamine patch was removed. When she tries to ambulate, she notices some unsteadiness from the dizziness. Would like to observe her one more day to make sure she is more steady on her feet with ambulation prior to discharge. Will restart her Eliquis tonight. Her Hgb is 9.2. She has anemia of chronic disease, acute on chronic. She had some operative blood loss of 150 ml. She also has IV dilution with her I's/O's positive for 2.5 liters. There is no clinical evidence of bleeding at this time. Will start Iron supplementation.
[2019-07-26] MEDS: APIXABAN 5 MG TABLET PO (21:29)
[2019-07-26] MEDS: 0.9% NaCl Peripheral Flush Adult/Peds IV (21:37)
[2019-07-27] VITALS (10 sets, daily range): BP systolic 113–130; BP diastolic 54–74; PULSE 80–88; RESP 15–18; TEMP 36.4–36.6; O2SAT 95–100
[2019-07-27] MEDS: Acetaminophen 500 MG Tablet 1000 MG PO ×3 (00:36→14:36)
[2019-07-27 05:31] LABS: Hematocrit 28.6 % (37-47); Hemoglobin 8.9 g/dL (12.0-15.0); Mean Corp Hgb Conc 31.1 g/dL (32-36); Mean Corpuscular Hgb 29.8 pg (27.0-32.0); Mean Corpuscular Volume 95.7 fL (81-99); Mean Platelet Vol. 10.2 fl (6.2-12.0); Platelet Count 279 K/mm3 (150-450); RBC Distribution Width CV 12.9 % (11.6-14.6); RBC Distribution Width SD 45.3 fl (35.1-43.9); Red Blood Count 2.99 M/mm3 (4.2-5.4); White Blood Count 11.6 K/mm3 (4.4-11.0)
[2019-07-27] MEDS: Cefazolin 1 GM/50 ML BAG IV ×3 (06:30→21:01)
[2019-07-27] MEDS: Gemfibrozil 600 MG Tablet PO ×2 (06:31→15:51)
[2019-07-27] MEDS: Albuterol 2.5 MG/3 ML VIAL.NEB. INHALATION ×2 (07:02→19:29)
[2019-07-27] MEDS: Budesonide Respules 0.5 MG/2 ML AMPUL.NEB. INHALATION ×2 (07:03→19:29)
[2019-07-27] MEDS: Ondansetron ODT 4 MG Tablet PO (10:02)
--- NOTE | 2019-07-27 11:08 | CASEMGMT ---
ANNI PATRICK NOTE: To room to talk with pt about discharge. Pt sitting up in recliner chair. Alert/oriented. Pt states she has no concerns with going home @ discharge. She states she is comfortable w/draining the LUNA drains if she would go home with them still in place and she has someone that is able to assist her with the LUNA drains and dressing changes. She states she does not feel like she needs HHC at this time. Pt made aware to ask for CM if any discharge needs/concerns arise. Lashaun REGALADO RN CM
[2019-07-27] MEDS: 0.9% Normal Saline 1,000 ML 100 ML IV (13:05)
[2019-07-27] MEDS: 0.9% NaCl Peripheral Flush Adult/Peds IV (13:06)
[2019-07-27] MEDS: proMETHazine 25 MG/ML Syringe 6.25 MG IV (13:06)
--- NOTE | 2019-07-27 14:06 | PCM.PN.HOSP ---
Subjective: Consult for postop medical management 59-year-old female with past medical history of hypertension, paroxysmal atrial fibrillation, on flecainide, apixaban who was admitted for elective breast reduction surgery for bilateral macromastia. Surgery was done 07/25/19. This morning patient complains of feeling foggy and dizzy when she woke up. She did not describe the dizziness as room spinning or feeling unsteady. She denied any chest pain or dizziness or palpitations. She has some nausea and headache with the feeling of fogginess. She otherwise rates the pain as 2 out of 10. She does not want any pain medications. She is on scheduled Tylenol. Vitals/I&O's: Vital Signs Temp Pulse Resp BP Pulse Ox 97.9 F 82 18 113/66 95 07/27/19 10:05 07/27/19 10:52 07/27/19 10:05 07/27/19 10:52 07/27/19 10:05 Oxygen Flow Rate (L/min) 6 Oxygen Delivery Method Room Air Weight: 78.2 kg Body Mass Index (BMI) 30.5 Intake and Output for Last 24 Hours 07/25/19 07/26/19 07/27/19 23:59 23:59 23:59 Intake Total 7230 / 7230 2010 / 2811 1650 / 1650 Output Total 3975 / 3975 2722 / 2722 800 / 800 Balance 3255 / 3255 -711 / 89 850 / 850 General: Alert, Oriented x3, Cooperative, No apparent distress HEENT: Atraumatic, PERRLA, EOMI, Normocephalic Oral: Moist Mucosa Neck: Supple, No JVD, Negative Carotid Bruits Lungs: Clear to auscultation, Normal air movement, - - In compression sports bra, LUNA drains in situ, dressing in situ Cardiovascular: Regular rate, Regular Rhythm, Normal S1, Normal S2, No murmurs Abdomen: Bowel Sounds Present, Soft, Non Tender, Non-Distended, No Hepato-splenomegaly Extremities: No edema Skin: No rashes, No breakdown Musculoskeletal: No Tenderness to Palpation of Joints or Extremities Lymphatic: No Cervical, Supraclavicular, or Inguinal Adenopathy Neurological: Cranial nerves II-XII grossly intact, Neuro grossly intact Psych/Mental Status: Normal Affect, Appropriate Laboratory Results 07/27/19 05:16: WBC 11.6 H, RBC 2.99 L, Hgb 8.9 L, Hct 28.6 L, MCV 95.7, MCH 29.8, MCHC 31.1 L, RDW Std Deviation 45.3 H, RDW Coeff of Ela 12.9, Plt Count 279, MPV 10.2 07/27/19 05:16: Prealbumin 15.0 L Current Medications Acetaminophen (Tylenol) 1,000 mg PO Q6 PENDING SALE TO [facility] Last Admin: 07/27/19 06:31 Dose: 1,000 mg Documented by: Albuterol Sulfate (Ventolin Aerosols) 2 mg INHALATION Q4H PRN PRN PRN Reason: SOB &/OR WHEEZING Albuterol Sulfate (Ventolin Aerosols) 2.5 mg INHALATION Q6HWA.RT PENDING SALE TO [facility] Last Admin: 07/27/19 13:30 Dose: Not Given Documented by: Apixaban (Eliquis) 5 mg PO BID PENDING SALE TO [facility] Last Admin: 07/26/19 21:29 Dose: 5 mg Documented by: Budesonide (Pulmicort Aerosol) 0.5 mg INHALATION Q12H.RT PENDING SALE TO [facility] Last Admin: 07/27/19 07:03 Dose: 0.5 mg Documented by: Diltiazem HCl (Cardizem Cd) 240 mg PO DAILY PENDING SALE TO [facility] Last Admin: 07/26/19 09:07 Dose: 240 mg Documented by: Docusate Sodium (Colace) 100 mg PO BID PENDING SALE TO [facility] Last Admin: 07/27/19 10:07 Dose: Not Given Documented by: Ezetimibe (Zetia) 10 mg PO DAILY PENDING SALE TO [facility] Last Admin: 07/26/19 09:07 Dose: 10 mg Documented by: Enteral Nutritional Formula (Ensure Surgery) 237 ml PO TIDCM PENDING SALE TO [facility] Last Admin: 07/27/19 11:55 Dose: Not Given Documented by: Epinephrine HCl () 0.3 mg IM X1 PRN PRN Reason: Anaphylaxis Flecainide Acetate (Tambocor) 100 mg PO BID PENDING SALE TO [facility] Last Admin: 07/26/19 21:29 Dose: 100 mg Documented by: Gabapentin (Neurontin) 200 mg PO TIDCM PENDING SALE TO [facility] Last Admin: 07/27/19 12:33 Dose: Not Given Documented by: Gemfibrozil (Lopid) 600 mg PO BIDAC PENDING SALE TO [facility] Last Admin: 07/27/19 06:31 Dose: 600 mg Documented by: Hydrochlorothiazide () 12.5 mg PO DAILY PENDING SALE TO [facility] Last Admin: 07/26/19 09:07 Dose: 12.5 mg Documented by: Cefazolin Sodium () 1 gm in 50 mls @ 100 mls/hr IV Q8 PENDING SALE TO [facility] Last Infusion: 07/27/19 07:05 Dose: Infused Documented by: Sodium Chloride () 250 mls @ 15 mls/hr IV .[id number] PRN PRN Reason: SALINE FLUSH Sodium Chloride () 1,000 mls @ 100 mls/hr IV .Q10H PENDING SALE TO [facility] Stop: 07/27/19 22:24 Last Admin: 07/27/19 13:05 Dose: 100 mls/hr Documented by: Ibuprofen (Motrin) 600 mg PO Q6H PRN PRN PRN Reason: Pain Score 1-10/10 Insulin Human Lispro (Humalog Kwikpen (Bkc)) 1 - 6 unit SC Q4H PRN PRN; Protocol PRN Reason: BG>/= 180, SEE PROTOCOL Losartan Potassium (Cozaar) 50 mg PO DAILY PENDING SALE TO [facility] Last Admin: 07/26/19 09:07 Dose: 50 mg Documented by: Magnesium Oxide (Mag-Ox 400) 400 mg PO BID PRN PRN PRN Reason: Constipation Ondansetron HCl (Zofran Odt) 4 mg PO Q6H PRN PRN PRN Reason: NAUSEA Last Admin: 07/27/19 10:02 Dose: 4 mg Documented by: Ondansetron HCl (Zofran) 4 mg IV Q6H PRN PRN PRN Reason: NAUSEA/VOMITING Polysaccharide Iron Complex (Ferrex 150) [facility] Sodium Chloride () 5 - 15 ml IV UD PRN PRN Reason: SALINE FLUSH Last Admin: 07/27/19 13:06 Dose: 10 ml Documented by: Medical Necessity - Tobacco Use Smoking Status: Former smoker Tobacco Use: Non-smoker Assessment/Plan All Active Problems (Last Reviewed 07/12/19 @ 09:30 by Sue Cassidy) Dyspnea on exertion (Acute) Acute bronchitis (Resolved) Asthma with exacerbation (Resolved) Chest pain (Resolved) Dizziness and giddiness (Resolved) Dyspnea on exertion (Resolved) Syncope and collapse (Resolved) 1. Intermittent dizziness, nausea likely secondary to medication side effect Telemetry shows normal sinus rhythm, orthostatic vitals negative We will recommend gentle IV fluids for 1 L, hold off use of narcotics, 2. Paroxysmal atrial fibrillation, normal sinus rhythm, Cardizem, and apixaban, 3. Hypertension 10 9, controlled, continue on hydrochlorothiazide, losartan, Cardizem, continue to monitor vitals 4. Dyslipidemia, on Zetia, gemfibrozil 5. DVT prophylaxis-on apixaban Code Visit Inpatient E&M: 12024 Subs Hosp L2
[2019-07-27] MEDS: dilTIAZem CD 240 MG Capsule PO (14:36)
[2019-07-27] MEDS: hydroCHLOROthiazide 12.5mg 12.5 MG PO (14:36)
[2019-07-27] MEDS: Gabapentin 100 MG Capsule 200 MG PO (14:36)
[2019-07-27] MEDS: Flecainide 100 MG Tablet PO ×2 (14:37→20:59)
[2019-07-27] MEDS: APIXABAN 5 MG TABLET PO ×2 (14:37→20:58)
[2019-07-27] MEDS: Losartan Potassium 50 MG Tablet PO (14:37)
[2019-07-27] MEDS: Ezetimibe 10 MG Tablet PO (14:37)
--- NOTE | 2019-07-27 17:41 | PCM.PN.SRG ---
Subjective: Postop #2 She has persistent dizziness after surgery. Also has some nausea when attempting to ambulate. She is also having trouble with Morphine. - Physical Exam General: Alert, Oriented x3 HEENT: PERRLA, EOMI Oral: Moist Mucosa Neck: Supple Abdomen: Soft, Non-Distended Skin: Incision - breast incisions are dry and intact. Breasts are soft and symmetrical. Nipples are viable. Neurological: Cranial nerves II-XII grossly intact Psych/Mental Status: Normal Affect, Appropriate Vital Signs Temp Pulse Resp BP Pulse Ox 97.5 F L 80 16 121/54 H 99 07/27/19 15:52 07/27/19 15:56 07/27/19 15:52 07/27/19 15:52 07/27/19 15:52 Oxygen Flow Rate (L/min) 6 Oxygen Delivery Method Room Air Weight: 172 lb 6.424 oz Body Mass Index (BMI) 30.5 Intake and Output for Last 24 Hours 07/25/19 07/26/19 07/27/19 23:59 23:59 23:59 Intake Total 7230 / 7230 2010 1916.67 / 1916.67 Output Total 3975 / 3975 2722 / 2722 822 / 822 Balance 3255 / 3255 -711 / 89 1094.67 / 1094.67 Drainage 122 ml today. Laboratory Tests Past 24 Hrs 07/27/19 07/27/19 05:16 05:16 WBC 11.6 H RBC 2.99 L Hgb 8.9 L Hct 28.6 L MCV 95.7 MCH 29.8 MCHC 31.1 L RDW Std Deviation 45.3 H RDW Coeff of Ela 12.9 Plt Count 279 MPV 10.2 Prealbumin 15.0 L Medical Necessity - Tobacco Use Smoking Status: Former smoker Tobacco Use: Non-smoker Assessment/Plan All Active Problems (Last Reviewed 07/12/19 @ 09:30 by Sue Cassidy) Dyspnea on exertion (Acute) Acute bronchitis (Resolved) Asthma with exacerbation (Resolved) Chest pain (Resolved) Dizziness and giddiness (Resolved) Dyspnea on exertion (Resolved) Syncope and collapse (Resolved) 1. Bilateral macromastia. 2. Neck pain. 3. Thoracic back pain. 4. Bilateral shoulder pain from shoulder grooving from the weight of the breasts on her bra straps. 5. Inframammary intertrigo. 6. Family history of breast cancer. 7. Former smoker. 8. s/p bilateral breast reduction mammaplasty. 9. Anemia of chronic disease, acute on chronic. 10. Postop dizziness. Patient is still having issues with Morphine. She would like to stick to Tylenol and Ibuprofen. She states she is not interested in Ultram. Will stop the Morphine as well as the long acting Morphine. When she tries to ambulate, she notices some unsteadiness from the dizziness as well as some nausea. It could be medication related, but because of her cardiac history, will obtain a Hospitalist consult for evaluation to see if anything needs to be done before discharge. Her Hgb is 8.9 which is slightly lower than the previous one at 9.2. She has anemia of chronic disease, acute on chronic. She had some operative blood loss of 150 ml. She also has IV dilution with her I's/O's positive for 3.5 liters. There is no clinical evidence of bleeding at this time. Continue Iron supplementation.
[2019-07-27] MEDS: Ensure Surgery 237 ML LIQUID PO (18:08)
[2019-07-27] MEDS: Ibuprofen 600 MG Tablet PO (20:58)
[2019-07-28] MEDS: Acetaminophen 500 MG Tablet 1000 MG PO ×3 (00:19→11:59)
[2019-07-28 04:00] VITALS: PULSE 78
[2019-07-28 04:11] VITALS: BP 105/54; PULSE 84; RESP 16; TEMP 36.6; O2SAT 97
[2019-07-28] MEDS: 0.9% NaCl IVPB Med Flush (250 mL) 15 ML IV (06:13)
[2019-07-28] MEDS: Cefazolin 1 GM/50 ML BAG IV ×2 (06:14→13:56)
[2019-07-28 07:18] LABS: Hematocrit 29.7 % (37-47); Hemoglobin 9.5 g/dL (12.0-15.0); Mean Corpuscular Hgb 30.2 pg (27.0-32.0); Mean Corpuscular Volume 94.3 fL (81-99); Mean Platelet Vol. 9.9 fl (6.2-12.0); Platelet Count 302 K/mm3 (150-450); RBC Distribution Width CV 12.8 % (11.6-14.6); RBC Distribution Width SD 43.7 fl (35.1-43.9); Red Blood Count 3.15 M/mm3 (4.2-5.4); White Blood Count 10.1 K/mm3 (4.4-11.0)
--- NOTE | 2019-07-28 07:19 | PN_ITS ---
Subjective: Patient was seen and examined. Complained of mild dizziness. Denied any chest pain or palpitations. She slept very well. She feels rested. Static vitals was negative. Patient was able to ambulate around the unit. Objective: Physical exam: General: Alert, Oriented x3, Cooperative, No apparent distress HEENT: Atraumatic, PERRLA, EOMI, Normocephalic Oral: Moist Mucosa Neck: Supple, No JVD, Negative Carotid Bruits Lungs: Clear to auscultation, Normal air movement, - - In compression sports bra, LUNA drains in situ, dressing in situ Cardiovascular: Regular rate, Regular Rhythm, Normal S1, Normal S2, No murmurs Abdomen: Bowel Sounds Present, Soft, Non Tender, Non-Distended, No Hepato- splenomegaly Extremities: No edema Skin: No rashes, No breakdown Musculoskeletal: No Tenderness to Palpation of Joints or Extremities Lymphatic: No Cervical, Supraclavicular, or Inguinal Adenopathy Neurological: Cranial nerves II-XII grossly intact, Neuro grossly intact Psych/Mental Status: Normal Affect, Appropriate Vitals/I&O's: Vital Signs Temp Pulse Resp BP Pulse Ox 97.9 F 84 16 105/54 L 97 07/28/19 04:11 07/28/19 04:11 07/28/19 04:11 07/28/19 04:11 07/28/19 04:11 Oxygen Flow Rate (L/min) 6 Oxygen Delivery Method Room Air Weight: 78.2 kg Body Mass Index (BMI) 30.5 Intake and Output for Last 24 Hours 07/26/19 07/27/19 07/28/19 23:59 23:59 23:59 Intake Total 2010 2545.00 / 3145.00 1255 / 1255 Output Total 2722 / 2722 832 / 832 6 / Balance -711 / 89 1713.00 / 2313.00 1249 / 1249 Laboratory Results 07/28/19 06:30: WBC Pending, RBC Pending, Hgb Pending, Hct Pending, MCV Pending, MCH Pending, MCHC Pending, RDW Std Deviation Pending, RDW Coeff of Ela Pending, Plt Count Pending Current Medications Acetaminophen (Tylenol) 1,000 mg PO Q6 NATASHA Last Admin: 07/28/19 06:13 Dose: 1,000 mg Documented by: Albuterol Sulfate (Ventolin Aerosols) 2 mg INHALATION Q4H PRN PRN PRN Reason: SOB &/OR WHEEZING Albuterol Sulfate (Ventolin Aerosols) 2.[address] [facility] Last Admin: 07/27/19 19:29 Dose: 2.5 mg Documented by: Apixaban (Eliquis) [address] [facility] Last Admin: 07/27/19 20:58 Dose: 5 mg Documented by: Budesonide (Pulmicort Aerosol) 0.[address] [facility] Last Admin: 07/27/19 19:29 Dose: 0.5 mg Documented by: Diltiazem HCl (Cardizem Cd) [address] [facility] Last Admin: 07/27/19 14:36 Dose: 240 mg Documented by: Docusate Sodium (Colace) [address] [facility] Last Admin: 07/27/19 22:36 Dose: Not Given Documented by: Ezetimibe (Zetia) [address] [facility] Last Admin: 07/27/19 14:37 Dose: 10 mg Documented by: Enteral Nutritional Formula (Ensure Surgery) [address] [facility] Last Admin: 07/27/19 18:08 Dose: 237 ml Documented by: Epinephrine HCl () 0.3 mg IM X1 PRN PRN Reason: Anaphylaxis Flecainide Acetate (Tambocor) [address] [facility] Last Admin: 07/27/19 20:59 Dose: 100 mg Documented by: Gabapentin (Neurontin) [address] [facility] Last Admin: 07/27/19 16:59 Dose: Not Given Documented by: Gemfibrozil (Lopid) [address] [facility] Last Admin: 07/27/19 15:51 Dose: 600 mg Documented by: Hydrochlorothiazide () 12.[address] [facility] Last Admin: 07/27/19 14:36 Dose: 12.5 mg Documented by: Cefazolin Sodium () 1 gm in 50 mls @ 100 mls/hr IV Q8 [facility] Last Admin: 07/28/19 06:14 Dose: 100 mls/hr Documented by: Sodium Chloride () 250 mls @ 15 mls/hr IV .[id number] PRN PRN Reason: SALINE FLUSH Last Admin: 07/28/19 06:13 Dose: 15 mls/hr Documented by: Ibuprofen (Motrin) 600 mg PO Q6H PRN PRN PRN Reason: Pain Score -08/03 Last Admin: 07/27/19 20:58 Dose: 600 mg Documented by: Insulin Human Lispro (Humalog Kwikpen (Bkc)) 1 - 6 unit SC Q4H PRN PRN; Protocol PRN Reason: BG>/= 180, SEE PROTOCOL Losartan Potassium (Cozaar) [address] [facility] Last Admin: 07/27/19 14:37 Dose: 50 mg Documented by: Magnesium Oxide (Mag-Ox 400) 400 mg PO BID PRN PRN PRN Reason: Constipation Ondansetron HCl (Zofran Odt) 4 mg PO Q6H PRN PRN PRN Reason: NAUSEA Last Admin: 07/27/19 10:02 Dose: 4 mg Documented by: Ondansetron HCl (Zofran) 4 mg IV Q6H PRN PRN PRN Reason: NAUSEA/VOMITING [facility] Admin: 07/27/19 12:00 Dose: Not Given Documented by: Sodium Chloride () 5 - 15 ml IV UD PRN PRN Reason: SALINE FLUSH Last Admin: 07/27/19 13:06 Dose: 10 ml Documented by: Medical Necessity - Tobacco Use Smoking Status: Former smoker Tobacco Use: Non-smoker Assessment/Plan All Active Problems (Last Reviewed 07/12/19 @ 09:30 by Sue Cassidy) Dyspnea on exertion (Acute) Acute bronchitis (Resolved) Asthma with exacerbation (Resolved) Chest pain (Resolved) Dizziness and giddiness (Resolved) Dyspnea on exertion (Resolved) Syncope and collapse (Resolved) 1. Intermittent dizziness, nausea likely secondary to medication side effects, improved Off narcotics. Negative orthostatic vitals. Ambulated around with no complains Telemetry showed no acute events; NSR seen. 2. Acute blood loss anemia, improving on oral iron 3. Paroxysmal atrial fibrillation, normal sinus rhythm, Cardizem, and apixaban, 4. Hypertension, controlled, continue on hydrochlorothiazide, losartan, Cardizem, 4. Dyslipidemia, on Zetia, gemfibrozil 5. DVT prophylaxis-on apixaban Ok for discharge from Hospital medicine perspective Code Visit Inpatient E&M: 03447 Subs Hosp L2
[2019-07-28 07:34] VITALS: PULSE 88; RESP 15; O2SAT 97
[2019-07-28] MEDS: Budesonide Respules 0.5 MG/2 ML AMPUL.NEB. INHALATION (07:34)
[2019-07-28] MEDS: Albuterol 2.5 MG/3 ML VIAL.NEB. INHALATION (07:34)
[2019-07-28 09:03] VITALS: PULSE 85
[2019-07-28] MEDS: Ensure Surgery 237 ML LIQUID PO ×2 (09:05→11:59)
[2019-07-28] MEDS: Gabapentin 100 MG Capsule 200 MG PO ×2 (09:06→12:00)
[2019-07-28] MEDS: Flecainide 100 MG Tablet PO (09:06)
[2019-07-28] MEDS: Gemfibrozil 600 MG Tablet PO (09:06)
[2019-07-28] MEDS: Ezetimibe 10 MG Tablet PO (09:06)
[2019-07-28] MEDS: Iron Polysaccharide Complex 150 MG CAPSULE PO (09:06)
[2019-07-28] MEDS: Losartan Potassium 50 MG Tablet PO (09:06)
[2019-07-28] MEDS: hydroCHLOROthiazide 12.5mg 12.5 MG PO (09:07)
[2019-07-28] MEDS: APIXABAN 5 MG TABLET PO (09:07)
[2019-07-28] MEDS: dilTIAZem CD 240 MG Capsule PO (09:07)
[2019-07-28 09:11] VITALS: BP 108/68; PULSE 85; RESP 16; TEMP 36.9; O2SAT 98
[2019-07-28 12:15] VITALS: BP 122/65; BP 123/71; BP 141/77; PULSE 83; PULSE 89
--- NOTE | 2019-07-28 13:57 | PCM.PN.SRG ---
Subjective: Postop #3 She has less nausea and dizziness. She is more steady with ambulation. - Physical Exam General: Alert, Oriented x3 HEENT: PERRLA, EOMI Oral: Moist Mucosa Neck: Supple Abdomen: Soft, Non-Distended Skin: Incision - breast incisions are dry and intact. Breasts are soft and symmetrical. Nipples are viable. Neurological: Cranial nerves II-XII grossly intact Psych/Mental Status: Normal Affect, Appropriate Vital Signs Temp Pulse Resp BP Pulse Ox 98.5 F 83 16 122/65 H 98 07/28/19 09:11 07/28/19 12:15 07/28/19 09:11 07/28/19 12:15 07/28/19 09:11 Oxygen Flow Rate (L/min) 6 Oxygen Delivery Method Room Air Weight: 172 lb 6.424 oz Body Mass Index (BMI) 30.5 Orthostatic Vital Signs Start: 07/27/19 10:52 Freq: q24h Status: Active Protocol: Activity Type Activity Date Activity User E-Sign Co-Sign Detail Recorded Client Recorded Date Recorded By Document 07/28/19 12:15 [place] [id number] 07/28/19 12:19 [place] 07/28/19 12:15 Orthostatic Vitals Standing -Blood Pressure (90/60-120/80 mm Hg) 141/77 H -Extremity Use Left Arm -Pulse Rate (60-100 beats/min) 89 Sitting -Blood Pressure (90/60-120/80 mm Hg) 123/71 H -Extremity Use Left Arm -Pulse Rate (60-100 beats/min) 83 Lying -Blood Pressure (90/60-120/80 mm Hg) 122/65 H -Extremity Use Left Arm -Pulse Rate (60-100 beats/min) 83 Intake and Output for Last 24 Hours 07/26/19 07/27/19 07/28/19 23:59 23:59 23:59 Intake Total 2010 2545.00 / 3145.00 1420.75 / 1420.75 Output Total 272 / 2722 832 / 832 6 / 6 Balance -711 / 89 1713.00 / 2313.00 1414.75 / 1414.75 Drainage 32 ml today. Laboratory Tests Past 24 Hrs 07/28/19 06:30 WBC 10.1 RBC 3.15 L Hgb 9.5 L Hct 29.7 L MCV 94.3 MCH 30.2 MCHC 32.0 RDW Std Deviation 43.7 RDW Coeff of Ela 12.8 Plt Count 302 MPV 9.9 Medical Necessity - Tobacco Use Smoking Status: Former smoker Tobacco Use: Non-smoker Assessment/Plan All Active Problems (Last Reviewed 07/12/19 @ 09:30 by Sue Cassidy) Dyspnea on exertion (Acute) Acute bronchitis (Resolved) Asthma with exacerbation (Resolved) Chest pain (Resolved) Dizziness and giddiness (Resolved) Dyspnea on exertion (Resolved) Syncope and collapse (Resolved) 1. Bilateral macromastia. 2. Neck pain. 3. Thoracic back pain. 4. Bilateral shoulder pain from shoulder grooving from the weight of the breasts on her bra straps. 5. Inframammary intertrigo. 6. Family history of breast cancer. 7. Former smoker. 8. s/p bilateral breast reduction mammaplasty. 9. Anemia of chronic disease, acute on chronic. 10. Postop dizziness, improved. 11. Postop nausea, improved. Patient is doing well with Tylenol and Ibuprofen for pain. She is more steady on her feet with ambulation with less dizziness and less nausea. Hospitalist input appreciated. A Holter monitor was obtained which showed no issues. It is felt her symptoms were medication related. Drainage has been 32 ml last 24 hours. The drains were removed today without difficulty. Her Hgb has improved to 9.5 from 8.9. She has anemia of chronic disease, acute on chronic. She had some operative blood loss of 150 ml. She also has IV dilution with her I's/O's positive for 3.5 liters. There is no clinical evidence of bleeding at this time. Continue Iron supplementation. Discharge home today. Keep head elevated. Continue surgical bra for compression. Continue lifting restriction. Wrote a script for Ibuprofen for pain (60 tabs). Wrote a script for Phenergan for nausea (30 tabs) and a refill. Wrote a script for Iron supplementation (30 tabs) and 2 refills. Followup office one week.
--- NOTE | 2019-07-28 14:23 | DCINST_ITS ---
You will use the following diet at home:: No restrictions, Other - encourage nutritional supplementation with protein to help the healing process. Discharge Activity: May not drive while taking narcotic pain medications., May Shower, - - keep head elevated. no heavy lifting. May shower in (days): 1 May resume sexual activity in: 10-14 days Weight Bearing Status: Weight bearing as tolerated Lifting Restrictions: 20 lbs. Keep extremity elevated above heart level: - - elevate head. Call your doctor if your incision/area has: Continuous Slow Oozing, Sudden Increased Bleeding, Increased Pain/ Swelling, Increased Redness, Foul Smelling Discharge, Swelling at the incision site Call your doctor if you observe: Fever of 101 or Higher, Coldness, Increased Pain, Shortness of breath, Chest pain, Calf discomfort, Uncontrolled pain Suture Line Care: - - dry dressings daily. Change Dressing in (Days):: 1 - dry dressings daily. Cleanse incision/area with: - - may get incisions wet in the shower. Allergies/Adverse Reactions: Allergies perfume Allergy (Severe, Verified 07/25/19 05:57) swelling bee pollen Allergy (Verified 07/25/19 05:57) Anaphylaxis codeine Allergy (Verified 07/25/19 05:57) Anaphylaxis niacin Allergy (Verified 07/25/19 05:57) Angioedema oxycodone HCl [From Percocet] Allergy (Verified 07/25/19 05:57) Anaphylaxis propoxyphene napsylate [From Darvocet-N] Allergy (Verified 07/25/19 05:57) Angioedema simvastatin [From Zocor] Allergy (Verified 07/25/19 05:57) Angioedema hydromorphone [From Dilaudid] Adverse Reaction (Mild, Verified 07/27/19 03:16) Other DIZZINESS, DRY MOUTH bees Allergy (Severe, Uncoded 07/25/19 05:57) anaphylaxis dogs Allergy (Severe, Uncoded 07/25/19 05:57) swelling electrode adhesive Allergy (Severe, Uncoded 07/25/19 05:57) blisters Medications to take at Discharge Epi Pen (for allergic rxn) 0.3 mg IM X1 PRN 03/21/16 losartan 50 mg-hydrochlorothiazide 12.5 mg tablet 1 tab PO QDAY #90 tab 01/25/19 gemfibrozil 600 mg tablet 600 mg PO BID #180 tab 02/06/19 flecainide 100 mg tablet 100 mg PO Q12H #60 tab 03/27/19 albuterol sulfate HFA 90 mcg/actuation aerosol inhaler 2 puff INHALATION PRN PRN g 04/20/19 albuterol sulfate concentrate 2.5 mg/0.5 mL solution for nebulization 2.5 mg INHALATION .PRN PRN ea 04/20/19 apixaban 5 mg tablet 5 mg PO BID #180 tab 05/24/19 ezetimibe 10 mg tablet 10 mg PO DAILY #90 tab 05/24/19 Budesonide/Formoterol 160/4.5 [Symbicort 160/4.5 Mcg Inhaler (SP)] 2 puff INHALATION BID 07/18/19 Diltiazem HCl [Cartia Xt] 240 mg PO DAILY 07/18/19 Albuterol Aerosols [Ventolin Aerosols] 2.5 mg INHALATION Q6HWA.RT vial.neb. 07/28/19 Budesonide Aerosol [Pulmicort Respules] 0.5 mg INHALATION Q12H.RT ampul.neb. 07/28/19 Docusate Sodium [Colace] 100 mg PO BID cap 07/28/19 Ibuprofen [Motrin] 600 mg PO Q6H PRN PRN #60 tab 07/28/19 Iron Polysaccharide Complex [Ferrex 150] 150 mg PO DAILYCM #30 cap 07/28/19 Losartan Potassium [Cozaar] 50 mg PO DAILY tab 07/28/19 hydroCHLOROthiazide [Hydrochlorothiazide] 12.5 mg PO DAILY cap 07/28/19 proMETHazine tablet [Phenergan tablet] 25 mg PO 4X/DAY PRN PRN #30 tab 07/28/19 The following prescriptions were given: Iron Polysaccharide Complex [Ferrex 150] 150 mg PO DAILYCM #30 cap Prescription Printed Ibuprofen [Motrin] 600 mg PO Q6H PRN PRN #60 tab PRN Reason: Pain Score 1-10/10 Prescription Printed proMETHazine tablet [Phenergan tablet] 25 mg PO 4X/DAY PRN PRN #30 tab PRN Reason: Nausea Prescription Printed Primary Care Physician: Yennifer Johnson MD [Primary Care Provider] - Test Results: Test results from this visit will be discussed in further detail at your follow- up appointment, if applicable. Please Follow Up With: Israel Dow MD When: one week. call [phone] for appt. Proposed Discharge Date: 07/28/19
--- NOTE | 2019-07-28 14:27 | PCM.DC.SUM ---
Discharge Date and Diagnosis Date of Admission: 07/25/19 Date of Discharge: 07/28/19 - Primary Discharge Diagnosis Bilateral macromastia. Postop dizziness, improved. Postop nausea, improved. Anemia of chronic disease, acute on chronic. - Secondary Discharge Diagnosis Former smoker Family history of breast cancer inframammary intertrigo bilateral shoulder pain from shoulder grooving from the weight of the breasts on her bra straps Chronic thoracic back pain Chronic neck pain Atrial fibrillation Essential (primary) hypertension Mixed hyperlipidemia History of left heart catheterization Paroxysmal ventricular tachycardia Chest pain Syncope and collapse Nonrheumatic aortic valve insufficiency Asthma Palpitations Left ventricular hypertrophy Hospital Course and Treatment Imaging Results: None. CONSULTATIONS Hospitalist Group - Dr. Brock. Operations: - - Surgery 07/25/19 - Bilateral breast reduction mammaplasty. Procedures: None Summary of Care Provided: 59 year old woman presents with complaints of bilateral macromastia as well as associated painful symptomatology of neck pain, thoracic back pain, bilateral shoulder pain from shoulder grooving from the weight of her breasts on her bra straps, and inframammary intertrigo for which she uses powders for relief. She denies any trauma to her breasts. Denies any nipple discharge. Her mammogram on 07/03/19 showed the breasts are heterogeneously dense, which may obscure small masses. There are no dominant masses or suspicious calcifications. Small benign-appearing bilateral axillary lymph nodes. No other significant abnormalities are identified. She does have a family history of breast cancer. Her breast reduction has been approved. On 07/25/19, the patient was taken to surgery where she underwent bilateral breast reduction mammaplasty. She tolerated the procedure well. She had trouble with nausea and dizziness postoperatively which led to difficulties with ambulation. Initially it was thought it was due to her pain medication as she is sensitive to pain medication. She did not tolerate Dilaudid. She was changed to Morphine which had the same result. She ended up tolerating Tylenol and Ibuprofen. Ultram was ordered, but she was not interested in taking it. Because of her persistent symptomatology, a Hospitalist consult was obtained because she has a cardiac history. A Holter monitor was done which showed no issues. Also orthostatics were done and were ok. It was felt that her symptomatology was medication related. On postop day #3, she was feeling better with less nausea and dizziness with ambulation. She was discharged home in satisfactory condition. Her Prealbumin was 15.0. Encouraged nutritional supplementation with protein to help the healing process. Her Hgb was decreased after surgery and ranged from 9.2 to 8.9 to 9.5 at discharge. She was started on Iron supplementation. There was no clinical evidence of bleeding postoperatively. Operative blood loss was 150 ml. There was also IV dilution as her I's/O's were positive about 3.5 liters. On the day of discharge, her drainage was 32 ml over the previous 24 hours. The drains were removed today without difficulty. After discharge she will keep her head elevated. Continue surgical bra for compression. Continue lifting restriction. Wrote a script for Ibuprofen for pain (60 tabs). Wrote a script for Phenergan for nausea (30 tabs) and a refill. Wrote a script for Iron supplementation (30 tabs) and 2 refills. Followup office one week. - Physical Exam General: Alert, Oriented x3 HEENT: PERRLA, EOMI Oral: Moist Mucosa Neck: Supple Abdomen: Soft, Non-Distended Skin: Incision - breast incisions are dry and intact. Breasts are soft and symmetrical. Nipples are viable. Neurological: Cranial nerves II-XII grossly intact Psych/Mental Status: Normal Affect, Appropriate Vital Signs Temp Pulse Resp BP Pulse Ox 98.5 F 83 16 122/65 H 98 07/28/19 09:11 07/28/19 12:15 07/28/19 09:11 07/28/19 12:15 07/28/19 09:11 Oxygen Flow Rate (L/min) 6 Oxygen Delivery Method Room Air Weight: 172 lb 6.424 oz Body Mass Index (BMI) 30.5 Orthostatic Vital Signs Start: 07/27/19 10:52 Freq: q24h Status: Active Protocol: Activity Type Activity Date Activity User E-Sign Co-Sign Detail Recorded Client Recorded Date Recorded By Document 07/28/19 12:15 [place] [id number] 07/28/19 12:19 [place] 07/28/19 12:15 Orthostatic Vitals Standing -Blood Pressure (90/60-120/80 mm Hg) 141/77 H -Extremity Use Left Arm -Pulse Rate (60-100 beats/min) 89 Sitting -Blood Pressure (90/60-120/80 mm Hg) 123/71 H -Extremity Use Left Arm -Pulse Rate (60-100 beats/min) 83 Lying -Blood Pressure (90/60-120/80 mm Hg) 122/65 H -Extremity Use Left Arm -Pulse Rate (60-100 beats/min) 83 Intake and Output for Last 24 Hours 07/26/19 07/27/19 07/28/19 23:59 23:59 23:59 Intake Total 2010 2545.00 / 3145.00 1420.75 / 1420.75 Output Total 272 2722 832 / 832 6 / Balance -711 / 89 1713.00 / 2313.00 1414.75 / 1414.75 Laboratory Tests Past 24 Hrs 07/28/19 06:30 WBC 10.1 RBC 3.15 L Hgb 9.5 L Hct 29.7 L MCV 94.3 MCH 30.2 MCHC 32.0 RDW Std Deviation 43.7 RDW Coeff of Ela 12.8 Plt Count 302 MPV 9.9 Discharge Diet: No Restrictions, - - encourage nutritional supplementation with protein to help the healing process. Discharge Activity: May not drive while taking narcotic pain medications., May Shower, - - keep head elevated. no heavy lifting. May shower in (days): 1 May resume sexual activity in: 10-14 days Weight Bearing Status: Weight bearing as tolerated Lifting Restrict to (lbs):: 20 Keep extremity elevated above heart level: - - elevate head. Call your doctor if your incision/area has: Continuous Slow Oozing, Sudden Increased Bleeding, Increased Pain/ Swelling, Increased Redness, Foul Smelling Discharge, Swelling at the incision site Call your doctor if you observe: Fever of 101 or Higher, Coldness, Increased Pain, Shortness of breath, Chest pain, Calf discomfort, Uncontrolled pain Suture Line Care: - - dry dressings daily. Change Dressing in (Days):: 1 - dry dressings daily. Cleanse incision/area with: - - may get incisions wet in the shower. Home Medications: Medications to take at Discharge Epi Pen (for allergic rxn) 0.3 mg IM X1 PRN 03/21/16 losartan 50 mg-hydrochlorothiazide 12.5 mg tablet 1 tab PO QDAY #90 tab 01/25/19 gemfibrozil 600 mg tablet 600 mg PO BID #180 tab 02/06/19 flecainide 100 mg tablet 100 mg PO Q12H #60 tab 03/27/19 albuterol sulfate HFA 90 mcg/actuation aerosol inhaler 2 puff INHALATION PRN PRN g 04/20/19 albuterol sulfate concentrate 2.5 mg/0.5 mL solution for nebulization 2.5 mg INHALATION .PRN PRN ea 04/20/19 apixaban 5 mg tablet 5 mg PO BID #180 tab 05/24/19 ezetimibe 10 mg tablet 10 mg PO DAILY #90 tab 05/24/19 Budesonide/Formoterol 160/4.5 [Symbicort 160/4.5 Mcg Inhaler (SP)] 2 puff INHALATION BID 07/18/19 Diltiazem HCl [Cartia Xt] 240 mg PO DAILY 07/18/19 Albuterol Aerosols [Ventolin Aerosols] 2.5 mg INHALATION Q6HWA.RT vial.neb. 07/28/19 Budesonide Aerosol [Pulmicort Respules] 0.5 mg INHALATION Q12H.RT ampul.neb. 07/28/19 Docusate Sodium [Colace] 100 mg PO BID cap 07/28/19 Ibuprofen [Motrin] 600 mg PO Q6H PRN PRN #60 tab 07/28/19 Iron Polysaccharide Complex [Ferrex 150] 150 mg PO DAILYCM #30 cap 07/28/19 Losartan Potassium [Cozaar] 50 mg PO DAILY tab 07/28/19 hydroCHLOROthiazide [Hydrochlorothiazide] 12.5 mg PO DAILY cap 07/28/19 proMETHazine tablet [Phenergan tablet] 25 mg PO 4X/DAY PRN PRN #30 tab 07/28/19 Following Prescrptions Were Given to Patient: Iron Polysaccharide Complex [Ferrex 150] 150 mg PO DAILYCM #30 cap Prescription Printed Ibuprofen [Motrin] 600 mg PO Q6H PRN PRN #60 tab PRN Reason: Pain Score 1-10/10 Prescription Printed proMETHazine tablet [Phenergan tablet] 25 mg PO 4X/DAY PRN PRN #30 tab PRN Reason: Nausea Prescription Printed Primary Care Physician: Yennifer Johnson MD [Primary Care Provider] - Please Follow Up With: Israel Dow MD When: one week. call [phone] for appt. Disposition: Home Minutes spent on discharge:: 35 Patient Condition:: Stable Medical Necessity - Tobacco Use Smoking Status: Former smoker Tobacco Use: Non-smoker Meaningful Use Info Meaningful Use Diagnoses (Choose all that apply): None applicable
== END 2019-07-28 15:00 | disposition home or self-care (01) ==
LOC: SDC 12:34
PROVIDERS: Anesthesiology; Admitting Provider Surgery; Family Provider Internal Medicine; PCP Internal Medicine; Referring Provider Surgery; Visit Provider Surgery
PROC: 0H0U0ZZ Alteration of Left Breast, Open Approach (ICD-10-PCS; CPT 19318; principal; 2019-07-25 07:15)
DX: N62 Hypertrophy of breast (principal); M54.2 Cervicalgia; M54.6 Pain in thoracic spine; M25.512 Pain in left shoulder; M25.511 Pain in right shoulder; L30.4 Erythema intertrigo; E78.2 Mixed hyperlipidemia; I10 Essential (primary) hypertension; J45.909 Unspecified asthma, uncomplicated; I48.0 Paroxysmal atrial fibrillation; G25.81 Restless legs syndrome; D63.8 Anemia in other chronic diseases classified elsewhere; F41.9 Anxiety disorder, unspecified; Z79.899 Other long term (current) drug therapy; Z80.3 Family history of malignant neoplasm of breast; Z87.891 Personal history of nicotine dependence; Z79.01 Long term (current) use of anticoagulants; Z79.51 Long term (current) use of inhaled steroids
CPT/HCPCS: 19318; 36415; 80048; 82962; 84134; 85027; 88305; 94640; 94762; 96361; 96365; 96366; 96372; 96375; 96376; 99218; J7030; J7050; J7120; A4216; G0378; G0379; J2405; Q9968

== ENCOUNTER → 2019-12-23 07:25 | Outpatient (CLI) | payer BC, SELFPAY ==
[2019-12-21 15:14] VITALS: BMI 29.5
[2019-12-23 08:18] LABS: Absolute Neutrophil Count 4.6 X10^3/uL (2.0-7.7); Basophil# 0.05 X10^3/uL; Basophil% 0.7 % (0-1); Eosinophil# 0.26 X10^3/uL; Eosinophils% 3.5 % (0-5); Hematocrit 38.8 % (37-47); Hemoglobin 12.3 g/dL (12.0-15.0); Lymphocyte % 22.8 % (19-41); Mean Corp Hgb Conc 31.7 g/dL (32-36); Mean Corpuscular Hgb 28.3 pg (27.0-32.0); Mean Corpuscular Volume 89.2 fL (81-99); Mean Platelet Vol. 10.1 fl (6.2-12.0); Monocyte# 0.84 X10^3/uL; Monocyte% 11.2 % (0-10); NRBC Flagged by Analyzer 0 % (0-5); Neutrophil # 4.59 X10^3/uL (2.7-7.7); Neutrophil % 61.4 % (47-70); Platelet Count 412 K/mm3 (150-450); RBC Distribution Width CV 12.6 % (11.6-14.6); RBC Distribution Width SD 41.1 fl (35.1-43.9); Red Blood Count 4.35 M/mm3 (4.2-5.4); White Blood Count 7.5 K/mm3 (4.4-11.0)
[2019-12-23 08:28] LABS: AST(SGOT) 18 U/L (15-37); Alanine Aminotransfer ALT/SGPT 24 U/L (13-56); Albumin, Serum 3.8 g/dL (3.2-5.0); Alkaline Phosphatase 79 U/L (45-117); Bilirubin, Direct 0.08 mg/dL (0.00-0.30); Cholesterol 157 mg/dL (200); High Density Lipoprotein 55 mg/dL; Protein, Total 7.8 g/dL (6.4-8.2); Triglycerides 71 mg/dL; Very Low Density Lipoprotein 14 mg/dL (5-40)
[2019-12-23 08:30] LABS: AST(SGOT) 17 U/L (15-37); Alanine Aminotransfer ALT/SGPT 24 U/L (13-56); Albumin, Serum 3.9 g/dL (3.2-5.0); Alkaline Phosphatase 79 U/L (45-117); Anion Gap 8 (5-15); BUN 22 mg/dL (7-18); BUN/Creat Ratio 20.2 RATIO (10-20); Calcium,Total 9.2 mg/dL (8.5-10.1); Chloride 105 mmol/L (98-107); Creatinine, Serum 1.09 mg/dL (0.55-1.02); EST Glomerular Filtration Rate 55 mL/min (>60); Est Glom Filt Rate - Afr Amer 66 mL/min (>60); Globulin 3.9 g/dL (2.2-4.2); Glucose 107 mg/dL (74-106); Potassium 3.8 mmol/L (3.5-5.1); Protein, Total 7.8 g/dL (6.4-8.2); Sodium Level 140 mmol/L (136-145)
== END ==
PROVIDERS: PCP Internal Medicine; Referring Provider Internal Medicine Cardiovascular Disease; Visit Provider Internal Medicine Cardiovascular Disease
DX: Z00.00 Encounter for general adult medical examination without abnormal findings (principal); E78.00 Pure hypercholesterolemia, unspecified
CPT/HCPCS: 36415; 80053; 80061; 80076; 85025

== ENCOUNTER → 2020-01-05 12:09 | Outpatient (CLI) | payer BC, SELFPAY ==
[2019-12-21 15:14] VITALS: BMI 29.5
[2019-12-26 17:11] VITALS: BMI 30.5
--- NOTE | 2020-01-05 12:12 | STEWCON_ITS ---
Reason For Study: ARRHYTHMIA-OTHER Stress Results Protocol: Igor Protocol WITH DEFINITY Maximum Predicted HR: 161 bpm Target HR: 137 bpm % Maximum Predicted HR: 89 % DurationHeart Rate Stage (mm:ss) (bpm) BP Comment BASELINE 77 120/704 CC DEFINITY FOR TEST STAGE 1 3:00 115 122/70 STAGE 2 3:00 122 152/78SLIGHT SOB, NO CHEST PAIN STAGE 3 3:00 144 182/80NO CHEST PAIN RECOVERY 90 138/80 Stress Duration: 9:00 mm:ss Maximum Stress HR: 144 bpm Baseline Echocardiogram Findings The estimated ejection fraction is 65 %. Stress Echo Wall motion Data Resting WM Intermediate WM Stress WM Resting Wall Motion Wall Motion Stress No regional wall motion No regional wall motion abnormalities noted. abnormalities noted. EKG Data The baseline ECG displays normal sinus rhythm. The patient exercised according to the regular Igor protocol for a total duration of 9:00. The maximum heart rate attained was 153 beats per minute. This was 95% of maximum predicted heart rate. The patient exercised into stage 4 of the Igor protocol. During stress, there were no ST or T wave changes noted to suggest ischemia. No clinical angina was noted. No arrhythmias noted. Interpretation Summary The estimated ejection fraction is 65 %. Normal, adequate, treadmill echocardiogram. Negative for ischemia by EKG and echocardiographic criteria. No anginal symptoms noted. No arrhythmias noted. Appropriate blood pressure response to exercise. Test terminated due to target heart rate achieved and dyspnea. Decrease sensitivity due to poor echo windows requiring Definity agent. Patient tolerated procedure well. No complications. The study was technically difficult. Contrast injection was performed. Ordering Physician: Keron Infante Referring Physician: Keron Infante Performed By: Angela Poe, RDCS, RVT
== END ==
PROVIDERS: PCP Internal Medicine; Referring Provider Internal Medicine Cardiovascular Disease; Visit Provider Internal Medicine Cardiovascular Disease
DX: I48.91 Unspecified atrial fibrillation (principal); R00.2 Palpitations
CPT/HCPCS: 93017; 93350; Q9957; A4216; C8928

== ENCOUNTER → 2020-01-23 07:14 | Outpatient (CLI) | payer BC, SELFPAY ==
[2019-12-26 17:11] VITALS: BMI 30.5
[2020-01-23 09:04] LABS: Anion Gap 6 (5-15); BUN 10 mg/dL (7-18); BUN/Creat Ratio 12.4 RATIO (10-20); Calcium,Total 9.2 mg/dL (8.5-10.1); Chloride 107 mmol/L (98-107); Creatinine, Serum 0.81 mg/dL (0.55-1.02); EST Glomerular Filtration Rate 77 mL/min (>60); Est Glom Filt Rate - Afr Amer 93 mL/min (>60); Glucose 102 mg/dL (74-106); Magnesium 2.5 mg/dL (1.6-2.6); Sodium Level 141 mmol/L (136-145)
== END ==
PROVIDERS: PCP Internal Medicine; Referring Provider Nurse Practitioner Family; Visit Provider Nurse Practitioner Family
DX: R25.2 Cramp and spasm (principal); R94.4 Abnormal results of kidney function studies
CPT/HCPCS: 36415; 80048; 83735

== ENCOUNTER → 2020-06-17 07:12 | Outpatient (CLI) | payer BC, SELFPAY ==
[2020-06-13 15:50] VITALS: BMI 29.4
[2020-06-17 08:50] LABS: AST(SGOT) 15 U/L (15-37); Alanine Aminotransfer ALT/SGPT 19 U/L (13-56); Albumin, Serum 3.6 g/dL (3.2-5.0); Alkaline Phosphatase 77 U/L (45-117); Bilirubin, Direct 0.13 mg/dL (0.00-0.30); Cholesterol 189 mg/dL (200); Globulin 3.9 g/dL (2.2-4.2); High Density Lipoprotein 58 mg/dL; Protein, Total 7.5 g/dL (6.4-8.2); Triglycerides 59 mg/dL; Very Low Density Lipoprotein 12 mg/dL (5-40)
== END ==
PROVIDERS: PCP Internal Medicine; Referring Provider Internal Medicine Cardiovascular Disease; Visit Provider Internal Medicine Cardiovascular Disease
DX: E78.2 Mixed hyperlipidemia (principal); E78.00 Pure hypercholesterolemia, unspecified
CPT/HCPCS: 36415; 80061; 80076

== ENCOUNTER → 2020-08-19 10:32 | Outpatient (CLI) | payer BC, SELFPAY ==
[2020-08-19 09:58] VITALS: BMI 30.1
--- NOTE | 2020-08-19 10:38 | RAD_ITS ---
STUDY: X-RAY - LUMBAR SPINE REASON FOR EXAM: Female, 60 years old. 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 COMPARISON: None FINDINGS: Normal lumbar lordosis. There is no substantial scoliosis. Minimal anterior listhesis of L4 on L5. There is multilevel endplate spondylosis of the lumbar vertebrae. There is multi-level degenerative disc disease with multi-level disc space narrowing. The soft tissue structures are unremarkable. RAD/L/S Spine Min 4 Views IMPRESSION: Degenerative changes of the spine, as detailed above. Electronically Signed: Fady Villanueva, at 10:27 EDT , Service support ,
== END ==
PROVIDERS: PCP Internal Medicine; Referring Provider Internal Medicine; Visit Provider Internal Medicine
DX: M54.10 Radiculopathy, site unspecified (principal)
CPT/HCPCS: 72110

== ENCOUNTER → 2020-08-27 07:20 | Outpatient (CLI) | payer BC, SELFPAY ==
[2020-07-29 12:19] VITALS: BMI 29.4
[2020-08-19 09:58] VITALS: BMI 30.1
--- NOTE | 2020-08-27 07:21 | BI_ITS ---
MAMMOGRAPHY - BILATERAL SCREENING REASON FOR EXAM: Female, 60 years old. Routine annual screening examination. PERTINENT HISTORY: Mother with breast cancer. Prior bilateral breast reduction surgery as well as left excisional breast biopsy. TECHNIQUE: Digital bilateral breast darrell (3D mammographic acquisition) in the CC and MLO projections. 2-D mediolateral oblique (MLO) and craniocaudad (CC) views of both breasts were obtained. CAD: Full Field Digital Mammography with Computer Added Detection was performed. COMPARISON: Comparison is made with prior study dated 07/03/2019. FINDINGS: Breast Composition: There are scattered areas of fibroglandular density. There are no dominant masses or suspicious calcifications. Since prior study, the patient underwent bilateral breast reduction surgery with decrease in the amount of breast tissue. Postoperative changes are seen along the inferior aspects of both breasts. No other significant abnormalities are identified. BI/SCREEN MAMM (CAD) W/DARRELL BILAT IMPRESSION: Stable bilateral screening mammogram. Yearly follow-up mammogram recommended. (A) ASSESSMENT CATEGORY: BIRADS Category 2: Benign. A letter regarding these results will be sent to the patient by the facility within 30 days. Approximately 10% of breast cancers are not detected by mammography. A normal mammogram should not delay biopsy of a clinically suspicious abnormality. [id number] Electronically Signed: Fady Villanueva, at 8:43 EST , Service support ,
== END ==
PROVIDERS: PCP Internal Medicine; Referring Provider Internal Medicine; Visit Provider Internal Medicine
DX: Z12.31 Encounter for screening mammogram for malignant neoplasm of breast (principal)
CPT/HCPCS: 77063; 77067

== ENCOUNTER 2020-10-21 10:30 | Outpatient (RCR) | payer BC, SELFPAY ==
[2020-08-19 09:58] VITALS: BMI 30.1
--- NOTE | 2020-09-25 15:45 | HP.PTEVAL_ITS ---
Patient's Visit Information LANDY CROCKETT is a 60 year old F referred to Physical Therapy by Dr. Yennifer Johnson MD with a diagnosis of LUMBAR RADICULOPATHY. Date of Evaluation: 09/25/20 Physical Therapist: Israel Weiss, PT, Cert MDT, OCS - Visit Plan Frequency: 2x /Week Duration: 4 Weeks Plan: PT INTERVETIONS INTIALLY MODALTIES ,PROGRESS TO DLS ABD/BACK,POSTURAL EX'S,SIENNA ROM - Subjective This 60 y/o female presents to physical therapy with lumbar radiculopthy. Patient has has lumbar pain for 5 weeks no incidous onet but lifting trash bags of leaves potentially. See Dr about one week but wasnet getting better . Patient was provided with steriods and muscle relaxer last 5 days . Then tried another presription of bacoflin,predisone and muscel relaxer. Patient had x-rays showed DDD. Patient pain located Right lumbar to buttuck to knee. Aggraveting bending,lifting ,and sitting. Alleviating factors walking moving. Denies parathesia/tingling occasionally in legs . Unable to sleep due to pain. Bowel/bladder -. Coughing/sneezing -. Patient affects ADL's ,housework tasks . Pateint lumbar radiculopathy affects QOL. SOCAIL: . VOCATION: [employer] - Pain Right Back Pain Intensity (Out of 10): 6 Pain Intensity Range: 10 Right Lower Extremity Pain Intensity (Out of 10): 6 Pain Intensity Range: 10 Right Hip Pain Intensity (Out of 10): 8 Pain Intensity Range: 10 Comment: groin - Objective POSTURE: mild foward posture. GAIT: antalgic gait reciprocal pattern antalgic gait right side. NEURO: denies parathesia/tingling ,reflexes L3-4,L4-5,L5-S1 1/3. PALPATION:tender L-S. SYMMTRIES: align. LUMBAR ROM: flexion mod loss pain right L-S,extension mod loss pain back groin,side glides min loss. FLEXABLITY: hams min loss. MMT: quads/hams 4-/5,hip flexion 3+/5 pain right ,ankle 4/5. HIP ROM: FLEXION 100 degrees pain ,IR pain 30 degrees - Special Tests L/S Slump test left side: Negative L/S Slump test right side: Positive L/S Left Straight Leg Raise: Negative L/S Right Straight Leg Raise: Negative L/S Left Femoral Nerve Tension: Negative L/S Right Femoral Nerve Tension: Positive Lumbar Standing: Flexion - Mechanical Response: No effect Lumbar Standing: Flexion - Symptoms During Testing: Increases Lumbar Standing: Flexion - Symptoms After Testing: Worse Lumbar Standing: Extension - Mechanical Response: No effect Lumbar Standing: Extension - Symptoms During Testing: Increases Lumbar Standing: Extension - Symptoms After Testing: Worse Lumbar Standing: Right Side Glides - Mechanical Response: No effect Lumbar Standing: Right Side [place] - Symptoms During Testing: No effect Lumbar Standing: Right Side [place] - Symptoms After Testing: No effect Lumbar Standing: Left Side [place] - Mechanical Response: No effect Lumbar Standing: Left Side [place] - Symptoms During Testing: No effect Lumbar Standing: Left Side [place] - Symptoms After Testing: No effect Lumbar Lying: Flexion - Mechanical Response: No effect Lumbar Lying: Flexion - Symptoms During Testing: Increases Lumbar Lying: Flexion - Symptoms After Testing: Worse Comments:: hip Lumbar Lying: Extension - Mechanical Response: No effect Lumbar Lying: Extension - Symptoms During Testing: Abolishes Lumbar Lying: Extension - Symptoms After Testing: Worse Comments:: right lumbar and hip-groin - Goals Goal 1:: I with HEP Goal Time Frame: 4-6 Weeks Goal 2:: Improve posture/body mechanics 80% of the time. Goal Time Frame: 4-6 Weeks Goal 3:: Patient to decrease lumbar pain and radiculopathy by 50 % or > to improve QOL. Goal Time Frame: 4-6 Weeks Goal 4:: Patient to improve lumbar ROM for function of recovery. Goal Time Frame: 4-6 Weeks Goal 5:: Patient to increase right leg strength by 4/5 to improve function and QOL. Goal Time Frame: 4-6 Weeks Goal 6:: Patient to improve back owestry score by 5 points or > to improv function. Goal Time Frame: 4-6 Weeks - Rehabilitation Potential Physical Therapy Diagnosis: This patient has possible disc involvement with derranagemnt worse with postion flexion and extension ,weakness RIGHT hip ,+ANR slump test but has moderate sensativity of hip motion and scouring test thus benifit from skilled PT and possible need of MRI to clarify symptoms Rehabilitation Potential: Good - Anticipated Interventions Patient/Client Instruction: Educate patient on: Condition, Plan of Care For the Purpose of:: To decrease pain, To increase ROM, To improve muscle performance and motor function, To improve ability to perform ADL's, To increase tolerance to activity/condition/position, To improve ability of physical actions for home/community/work/leisure, To improve health of tissue, To decrease soft tissue restriction, To increase flexibility/ROM, To reduce risk of recurrence, To improve health and function, To improve ability to perform tasks related to life management Therapeutic Exercise to Include: Strength training, Body mechanics, Postural training, Flexibilty training, Dynamic Lumbar Stabilization, [place] Exercises For the Purpose of:: To decrease pain, To decrease swelling/inflammation, To i mprove muscle performance and motor function, To improve ability to perform ADL's, To increase tolerance to activity/condition/position, To improve ability of physical actions for home/community/work/leisure, To improve health of tissue, To decrease soft tissue restriction, To increase flexibility/ROM, To improve health and function, To improve ability to perform tasks related to life management TENS: Yes IF ES: Yes Cryotherapy (ice pack, ice massage): Yes Thermo therapy (hot pack): Yes Ultrasound (thermal/non thermal): Yes For the Purpose of:: To decrease pain, To increase ROM, To improve nutrient delivery to tissue, To increase oxygenation perfusion, To improve muscle performance and motor function, To improve health of tissue, To decrease soft tissue restriction, To increase flexibility/ROM Thank you for the opportunity to evaluate your patient. For Medicare and Medicare HMO plans, please review the plan of care and approve it. It will need to be FAXED BACK to us at [phone] for Medicare purposes. For Medicare only, by signing this I certify the plan of care. Please let me know if there are questions or concerns regarding this plan of care. Physician Signature: Date:
== END 2020-10-21 19:00 | disposition home or self-care (01) ==
LOC: PT 10:30
PROVIDERS: PCP Internal Medicine; Referring Provider Internal Medicine; Visit Provider Internal Medicine
DX: M54.10 Radiculopathy, site unspecified (principal)
CPT/HCPCS: 97014; 97035; 97110; 97162; 97530; G0283

== ENCOUNTER → 2020-11-06 15:22 | Outpatient (CLI) | payer BC, SELFPAY ==
[2020-10-30 09:21] VITALS: BMI 30.1
--- NOTE | 2020-11-06 15:24 | MRI_ITS ---
STUDY: MRI LUMBAR SPINE WITHOUT CONTRAST REASON FOR EXAM: Female, 60 years old. radiculopathy -- pain low back and bilat legs R and gt;L x 3 months TECHNIQUE: Standardized fat and water weighted pulse sequences were obtained in the sagittal and axial planes. COMPARISON: Lumbar spine x-rays 08/19/2020 FINDINGS: T12-L1: Normal endplates. Normal disc height, hydration and morphology. Normal bilateral facet joints. Normal central canal and bilateral lateral recesses. Normal bilateral intervertebral neural foramina. Normal lumbar lordosis. There is no substantial scoliosis. Normal conus medullaris that terminates at T12-L1 L1-2: Normal endplates. Normal disc height, hydration and morphology. Normal bilateral facet joints. Normal central canal and bilateral lateral recesses. Normal bilateral intervertebral neural foramina. L2-3: Narrowed disc space with desiccation of the disc and minor annular bulge with small right posterolateral disc protrusion. Normal facet joints. Normal central canal. Mild right lateral recess stenosis. Normal bilateral neuroforamina L3-4: Narrowed disc space with desiccation of the disc and minor bulging disc osteophyte complex. Mild facet arthropathy. Mild to moderate narrowing of the central canal. Mild bilateral recess and moderate bilateral neuroforaminal stenosis. L4-5: Grade 1 spondylolisthesis. Normal disc space with desiccation of disc and mild bulging disc osteophyte complex. Facet arthropathy and thickening of ligamenta flava. Mild to moderate narrowing of the central canal. Moderate bilateral recess and neuroforaminal stenosis exaggerated by shortened pedicles. L5-S1: Normal endplates. Normal disc height, desiccation and minor annular bulge with small right posterolateral disc protrusion. Bilateral facet arthropathy.. Normal central canal. Mild bilateral recess stenosis and and neuroforaminal encroachment.. Normal visualized sacral ala. Normal visualized paraspinous soft tissue structures. No significant change since prior study given differences in imaging modalities MRI/Spine Lumbar (Routine) IMPRESSION: No evidence for acute fracture or other significant bony pathology. Mild spondylosis and multilevel spinal stenosis secondary to disc disease and bony hypertrophy most pronounced at L4-5. Findings as above Electronically Signed: Enoch Quiñonez MD at 16:34 EST , Service support ,
== END ==
PROVIDERS: PCP Internal Medicine; Referring Provider Internal Medicine; Visit Provider Internal Medicine
DX: M48.061 Spinal stenosis, lumbar region without neurogenic claudication (principal); M54.16 Radiculopathy, lumbar region; M54.5 Low back pain
CPT/HCPCS: 72148

== ENCOUNTER → 2021-01-06 15:28 | Outpatient (CLI) | payer BC, SELFPAY ==
[2021-01-06 14:55] VITALS: BMI 29.5
[2021-01-06 16:35] LABS: Absolute Lymphocyte Count 1.88 X10^3/uL (0.83-4.51); Absolute Neutrophil Count 8.4 X10^3/uL (2.0-7.7); Basophil# 0.07 X10^3/uL; Basophil% 0.6 % (0-1); Eosinophil# 0.25 X10^3/uL; Eosinophils% 2.2 % (0-5); Hematocrit 40.4 % (37-47); Hemoglobin 13.1 g/dL (12.0-15.0); Lymphocyte # 1.88 X10^3/ul (4.0); Lymphocyte % 16.3 % (19-41); Mean Corp Hgb Conc 32.4 g/dL (32-36); Mean Corpuscular Hgb 29.6 pg (27.0-32.0); Mean Corpuscular Volume 91.2 fL (81-99); Mean Platelet Vol. 10.1 fl (6.2-12.0); Monocyte# 0.83 X10^3/uL; Monocyte% 7.2 % (0-10); NRBC Flagged by Analyzer 0 % (0-5); Neutrophil # 8.43 X10^3/uL (2.7-7.7); Neutrophil % 73.1 % (47-70); Platelet Count 472 K/mm3 (150-450); RBC Distribution Width CV 12.3 % (11.6-14.6); RBC Distribution Width SD 41.1 fl (35.1-43.9); Red Blood Count 4.43 M/mm3 (4.2-5.4); White Blood Count 11.5 K/mm3 (4.4-11.0)
[2021-01-06 16:46] LABS: Anion Gap 6 (5-15); BUN 11 mg/dL (7-18); BUN/Creat Ratio 14.4 RATIO (10-20); Calcium,Total 9.6 mg/dL (8.5-10.1); Chloride 102 mmol/L (98-107); Creatinine, Serum 0.76 mg/dL (0.55-1.02); EST Glomerular Filtration Rate 82 mL/min (>60); Est Glom Filt Rate - Afr Amer 99 mL/min (>60); Glucose 83 mg/dL (74-106); Potassium 3.6 mmol/L (3.5-5.1); Sodium Level 137 mmol/L (136-145)
== END ==
PROVIDERS: PCP Internal Medicine; Visit Provider Internal Medicine
DX: I10 Essential (primary) hypertension (principal)
CPT/HCPCS: 36415; 80048; 85025

== ENCOUNTER → 2021-06-21 08:10 | Outpatient (CLI) | payer BC, SELFPAY ==
[2021-06-21 09:24] LABS: AST(SGOT) 15 U/L (15-37); Alanine Aminotransfer ALT/SGPT 23 U/L (13-56); Albumin, Serum 3.9 g/dL (3.2-5.0); Alkaline Phosphatase 83 U/L (45-117); Bilirubin, Direct 0.07 mg/dL (0.00-0.30); Cholesterol 159 mg/dL (200); Globulin 3.6 g/dL (2.2-4.2); High Density Lipoprotein 62 mg/dL; Protein, Total 7.5 g/dL (6.4-8.2); Triglycerides 62 mg/dL; Very Low Density Lipoprotein 12 mg/dL (5-40)
== END ==
PROVIDERS: PCP Internal Medicine; Referring Provider Internal Medicine Cardiovascular Disease; Visit Provider Internal Medicine Cardiovascular Disease
DX: E78.2 Mixed hyperlipidemia (principal); E78.00 Pure hypercholesterolemia, unspecified; I48.0 Paroxysmal atrial fibrillation; I35.1 Nonrheumatic aortic (valve) insufficiency; I10 Essential (primary) hypertension
CPT/HCPCS: 36415; 80061; 80076

== ENCOUNTER → 2021-07-08 10:38 | Outpatient (CLI) | payer BC, SELFPAY ==
[2021-07-08 12:11] LABS: Absolute Lymphocyte Count 1.57 X10^3/uL (0.83-4.51); Basophil# 0.06 X10^3/uL; Basophil% 0.7 % (0-1); Eosinophil# 0.35 X10^3/uL; Eosinophils% 3.9 % (0-5); Hemoglobin 12.9 g/dL (12.0-15.0); Lymphocyte # 1.57 X10^3/ul (0.83-4.51); Lymphocyte % 17.7 % (19-41); Mean Corp Hgb Conc 32.3 g/dL (32-36); Mean Corpuscular Hgb 29.3 pg (27.0-32.0); Mean Corpuscular Volume 90.9 fL (81-99); Mean Platelet Vol. 10.1 fl (6.2-12.0); NRBC Flagged by Analyzer 0 % (0-5); Neutrophil # 5.96 X10^3/uL (2.7-7.7); Platelet Count 448 K/mm3 (150-450); RBC Distribution Width CV 12.3 % (11.6-14.6); RBC Distribution Width SD 41.1 fl (35.1-43.9); White Blood Count 8.9 K/mm3 (4.4-11.0)
[2021-07-08 12:41] LABS: ALB/GLOB Ratio 0.9 RATIO (0.9-2.4); AST(SGOT) 17 U/L (15-37); Alanine Aminotransfer ALT/SGPT 26 U/L (13-56); Albumin, Serum 3.9 g/dL (3.2-5.0); Alkaline Phosphatase 91 U/L (45-117); Anion Gap 10 (5-15); BUN 12 mg/dL (7-18); BUN/Creat Ratio 15.4 RATIO (10-20); Calcium,Total 9.7 mg/dL (8.5-10.1); Chloride 101 mmol/L (98-107); Creatinine, Serum 0.78 mg/dL (0.55-1.02); EST Glomerular Filtration Rate 80 mL/min (>60); Est Glom Filt Rate - Afr Amer 97 mL/min (>60); Globulin 4.2 g/dL (2.2-4.2); Glucose 94 mg/dL (74-106); Protein, Total 8.1 g/dL (6.4-8.2); Sodium Level 138 mmol/L (136-145)
== END ==
PROVIDERS: PCP Internal Medicine; Referring Provider Internal Medicine; Visit Provider Internal Medicine
DX: I10 Essential (primary) hypertension (principal)
CPT/HCPCS: 36415; 80053; 85025

== ENCOUNTER → 2021-07-14 07:51 | Outpatient (CLI) | payer BC, SELFPAY ==
--- NOTE | 2021-07-14 07:52 | ECHOD_ITS ---
Reason For Study: MURMUR Procedure This was a 2D Doppler, Color Flow transthoracic echocardiogram. The study was technically difficult. Contrast injection was performed. Exam performed in department. Left Ventricle Normal LV size. Left ventricular systolic function is normal. The estimated ejection fraction is 65 %. No evidence for diastolic dysfunction. No regional wall motion abnormalities noted. Right Ventricle Normal RV size. Normal systolic function. Atria Normal left atrium. Normal right atrium. No doppler evidence for ASD. Mitral Valve There is no mitral annular calcification. Normal mitral valve. Trivial mitral valve insufficiency. Tricuspid Valve Normal tricuspid valve. Mild tricuspid valve insufficiency. Right ventricular systolic pressure estimated to be 19 mmHg. Aortic Valve Trisinus/trileaflet aortic valve. Normal aortic valve. Mild (1+) aortic valve insufficiency. Pulmonic Valve The pulmonic valve is not well visualized. Mild (1+) pulmonic valve insufficiency. Great Vessels Normal sized aortic root. Pericardium/Pleural No pericardial effusion. Medication Diluted definity 3.0ml given slow IV push to enhance endocardial definition. MMode/2D Measurements & Calculations LVIDd: 4.5 cm IVSd: 1.1 cm Ao root diam: 3.3 cm LVIDs: 2.6 cm LVPWd: 1.0 cm RVDd: 2.7 cm FS: 41.3 % LAV(MOD-bp): 46.3 ml LVAd ap4: 22.5 cm2 LVAd ap2: 21.1 cm2 LAV(MOD-bp) Indexed: 26.0 ml/m2 LVLd ap4: 7.0 cm LVLd ap2: 6.7 cm LAV(MOD-sp2): 45.5 ml EDV(MOD-sp4): 61.9 ml EDV(MOD-sp2): 54.6 ml LAV(MOD-sp4): 36.5 ml EDV(sp4-el): 61.3 ml EDV(sp2-el): 56.7 ml LVAs ap4: 11.6 cm2 LVLs ap4: 5.2 cm ESV(MOD-sp4): 21.4 ml ESV(sp4-el): 22.1 ml EF(MOD-sp4): 65.4 % EF(sp4-el): 64.0 % SV(MOD-sp4): 40.5 ml SV(sp4-el): 39.2 ml LA A4 area: 14.2 cm2 LA dimension(2D): 3.1 cm RA A4 area: 8.9 cm2 Time Measurements MV dec time: 0.24 sec Doppler Measurements & Calculations MV E max monroe: 49.2 cm/sec Lat Peak E' [place]: 8.6 cm/sec Med Peak E' [place]: 6.2 cm/sec MV A max monroe: 54.1 cm/sec E/E' lat: 5.7 E/E' med: 7.9 MV E/A: 0.91 Ao V2 max: 130.8 cm/sec AI max monroe: 385.9 cm/sec LV V1 max: 113.9 cm/sec Ao max P.8 mmHg AI max P.7 mmHg LV V1 max P.2 mmHg AI dec slope: 201.7 cm/sec2 AI P1/2t: 560.5 msec PA V2 max: 103.8 cm/sec TR max monroe: 201.5 cm/sec TR max P.3 mmHg ECHO/Echo Complete W/ Contrast Interpretation Summary The study was technically difficult. Contrast injection was performed. Left ventricular systolic function is normal. The estimated ejection fraction is 65 %. Trivial mitral valve insufficiency. Mild tricuspid valve insufficiency. Mild (1+) aortic valve insufficiency. Mild (1+) pulmonic valve insufficiency. Right ventricular systolic pressure estimated to be 19 mmHg. No evidence for diastolic dysfunction. Ordering Physician: Cyrus Lopez Referring Physician: Yennifer Johnson Performed By: Angela Poe, MARIECS, RVT
== END ==
PROVIDERS: PCP Internal Medicine; Referring Provider Internal Medicine Cardiovascular Disease; Visit Provider Internal Medicine Cardiovascular Disease
DX: I48.0 Paroxysmal atrial fibrillation (principal)
CPT/HCPCS: 93306; Q9957; A4216; C8929; J3490

== ENCOUNTER → 2021-08-18 13:07 | Outpatient (CLI) | payer BC, SELFPAY | PROVIDERS: PCP Internal Medicine; Visit Provider Physician Assistant Surgical | DX: Z11.52 Encounter for screening for COVID-19 (principal) | CPT/HCPCS: 87635; U0005; U0003 ==

== ENCOUNTER → 2021-08-28 13:05 | Outpatient (CLI) | payer BC, SELFPAY | PROVIDERS: PCP Internal Medicine; Visit Provider Physician Assistant | DX: Z11.52 Encounter for screening for COVID-19 (principal) | CPT/HCPCS: 87635; U0005; U0003 ==

== ENCOUNTER → 2021-09-02 15:25 | Outpatient (CLI) | payer BC, SELFPAY ==
--- NOTE | 2021-09-02 15:29 | RAD_ITS ---
EXAM: XR CHEST, 2 VIEWS CLINICAL INDICATION: Cough TECHNIQUE: Frontal and lateral views of the chest. This report was created using [employer] report generation technology. COMPARISON: None. FINDINGS: LUNGS AND PLEURAL SPACES: Unremarkable. No consolidation or edema. No pneumothorax. No effusion. HEART: Unremarkable. Cardiac silhouette not enlarged. MEDIASTINUM: Central airways and mediastinal contour are unremarkable. BONES/JOINTS: Unremarkable. SOFT TISSUES: Unremarkable. RAD/Chest PA and Lateral IMPRESSION: No radiographic evidence of acute cardiopulmonary disease. Electronically Signed: Clayton Shen MD at 16:02 EST , Service support ,
== END ==
PROVIDERS: PCP Internal Medicine; Referring Provider Internal Medicine; Visit Provider Internal Medicine
DX: R05.9 Cough, unspecified (principal)
CPT/HCPCS: 71046

== ENCOUNTER 2021-09-24 07:32 | Day surgery (SDC) | payer BC, SELFPAY ==
[2021-09-24 07:58] VITALS: BP 139/77; PULSE 91; RESP 16; TEMP 35.7; O2SAT 97; BMI 28.9
[2021-09-24] MEDS: Lactated Ringers 1,000 ML 15 ML IV (08:03)
--- NOTE | 2021-09-24 08:56 | PCM.HP.BLA ---
History and Physical Date of Admission: 09/24/21 Medications budesonide-formoterol 2 puff INHALATION BID 07/18/19 [History Confirmed 07/08/21] ibuprofen 600 mg PO Q6H PRN PRN #60 tab 07/28/19 [Rx Confirmed 07/08/21] albuterol sulfate 2.5 mg/0.5 mL solution for nebulization 2.5 mg INHALATION .PRN PRN #30 ea 01/10/20 [Rx Confirmed 07/08/21] albuterol sulfate 90 mcg/actuation aerosol inhaler 2 puff INHALATION PRN PRN #8.5 g 01/10/20 [Rx Confirmed 07/08/21] ropinirole 0.25 mg tablet 0.25 mg PO QHS #90 tab 03/19/20 [Rx Confirmed 07/08/21] ezetimibe 10 mg tablet 10 mg PO DAILY #90 tab 07/29/20 [Rx Confirmed 07/08/21] losartan 50 mg-hydrochlorothiazide 12.5 mg tablet See Rx Instructions .ROUTE .COMPLEX #90 tab 10/28/20 [Rx Confirmed 07/08/21] gemfibrozil 600 mg tablet 600 mg PO BID #180 tab 10/29/20 [Rx Confirmed 07/08/21] disability placard #1 ea 11/13/20 [Rx Confirmed 07/08/21] epinephrine 0.3 mg/0.3 mL injection, auto-injector 0.3 mg IM Q5-15M PRN #2 ea 04/08/21 [Rx Confirmed 07/08/21] apixaban 5 mg tablet 5 mg PO BID #180 tab 04/14/21 [Rx Confirmed 07/08/21] diltiazem HCl 240 mg capsule,extended release 24 hr 240 mg PO DAILY #90 cap 04/14/21 [Rx Confirmed 07/08/21] flecainide 100 mg tablet 100 mg PO Q12H #180 tab 04/14/21 [Rx Confirmed 07/08/21] baclofen 10 mg tablet 10 mg PO BID PRN tab 06/20/21 [History Confirmed 07/08/21] PFS Medical History (Updated 07/08/21 @ 10:[address] Yennifer Johnson MD) Asthma (12/06/15) Atrial fibrillation Back problem Breast lump in female Chest pain Chest pain Colon cancer screening Dizziness Dizziness and giddiness Dyspnea on exertion Dyspnea on exertion Essential (primary) hypertension Frequent headaches Left ventricular hypertrophy Mixed hyperlipidemia Nonrheumatic aortic valve insufficiency Palpitations Paroxysmal atrial fibrillation Paroxysmal ventricular tachycardia Preventative health care Routine adult health maintenance Seasonal allergies Syncope and collapse Syncope and collapse Surgical History H/O tubal ligation History of bilateral breast reduction surgery History of left heart catheterization (05/25/18) History of lumpectomy of left breast History of partial hysterectomy Hx of tonsillectomy Family History Father CVA (cerebral vascular accident) Diabetes Hypertension High cholesterol Mother Breast cancer Cancer Diabetes Hypertension Grandmother CAD (coronary artery disease) Myocardial infarction, Onset Age: 68 Brother Diabetes Aunt Cancer Social History Smoking Status: Former smoker quit date: 06/25/96 pack-years: 16 Tobacco: How many years used: 12 Electronic Cigarette Use: not used how long ago did patient quit smokin years ago second hand exposure: No alcohol intake: current alcohol intake frequency: holidays/special occasions only Alcohol type: wine substance use type: does not use caffeine: Yes Type: coffee Number of servings: 1 what type of physical activity do you participate in: none additional social history: DOES USE ASPIRIN DOES USE IBUPROFEN HPI HPI Chief Complaint: Preventive Details: LANDY CROCKETT, is a 61 F who presents for a screening colonoscopy. She has a past history of asthma, atrial fibrillation, hypercholesterolemia and mild hypertension. She comes in today for screening colonoscopy. She has not had a colonoscopy for over 10 years. He does not have any problems with her bowels. She has no history of polyps. She has no family history of colon cancer. Overall she is in pretty good health. ROS Const Constitutional: No body ache, chills, excessive sweating, fatigue, fever(s), headache(s), snoring, weakness, weight change, sleep problems, change in appetite or other Eyes Eyes: No blurry vision, change in vision, eye pain, Light sensitivity or other ENT ENT: No abnormal hearing, ear or mastoid pain, tinnitus, nasal congestion, headache(s), neck pain, sore throat or other Resp Respiratory: No cough, shortness of breath, snoring, wheezing or other Cardio Cardiology: No chest pain at rest, chest pain with exertion, excessive sweating, shortness of breath, lightheadedness, orthopnea, palpitations or other Gastro GI: No abdominal pain, change in bowel habits, constipation, cramping, diarrhea, nausea/dyspepsia, vomiting or other Genitourinary-Female: No burning urination, painful urination, urinary incontinence, urinary frequency, urinary urgency, abnormal vaginal bleeding, pelvic pain or other Musc Musculoskeletal: No abnormal gait, joint pain, back pain, limited range of motion, neck pain, numbness, tingling or other Skin Skin: No dry skin, redness, lesions, itchy eyes, rash, wounds or other Neuro Neurology: No abnormal gait, abnormal hearing, abnormal speech, dizziness, weakness, headache(s), memory loss, numbness, tingling or other Psych Psychiatric: No anxiety, No change in appetite, No depression, No memory loss, No Thoughts of harming yourself/Others and No other Endo Endocrine: No cold intolerance, excessive sweating, fatigue, flushing, heat intolerance, increased thirst/drinking, increased hunger, weight change or other Aller/Imm Allergy/Immunologic: No itchy eyes, seasonal allergy symptoms, hives, wheezing or other Dimitri/Lymp Hematologic/Lymphatic: No easy bleeding, easy bruising, enlarged lymph nodes or other Exam Const General: cooperative, comfortable and no acute distress Orientation: alert, awake and oriented x3 [facility] Head: normal to inspection, normocephalic and atraumatic Ears: hearing grossly normal bilaterally Neck Neck: normal visual inspection, full ROM, no lymphadenopathy and supple Neck mass: No Thyroid: thyroid normal Resp Effort & Inspection: normal respiratory effort and able to speak in complete sentences Auscultation: Bilateral: Clear to Auscultation Cardio Rate: regular rate Rhythm: regular rhythm Heart Sounds: S1 normal and S2 normal GI Palpation: soft (Nontender, no palpable organomegaly.) Neuro General: patient alert, patient awake, patient oriented x3, moves all extremities and CN's II-XI intact bilaterally Extrem General: no clubbing, cyanosis or edema Psych Appearance: grossly normal Mental Status: mental status grossly normal Mood: congruent mood Affect: normal affect Assessment and Plan Assessment and Plan (1) Colon cancer screening: Status: Acute Orders: Referrals: Gastroenterology Z12.11 Plan -patient will undergo colonoscopy. She was explained alternatives, risk, benefits including understanding bleeding, infection, sepsis, perforation, need for emergent . She will have an ASA 1.
--- NOTE | 2021-09-24 09:00 | COLBX_PTH ---
PATIENT: LANDY CROCKETT LOC: EN U#:[id number] AGE/SX: 61/F ROOM: RE09/24/[address]: Dr. Vernon Miner DO : 1960 BED: DIS: 09/24/2021 SPEC #: [id number] RECD: 09/24/21 10:33 STATUS: MAO REX #: [id number] MIGUELITO: 09/24/21 09:[address]: Vernon Miner DEPT: SURGICAL PATHOLOGY RECD BY: Sherry Harris ENTERED: 09/24/21 11:13 SP TYPE: COLON BX FER DR: Dr. Yennifer Johnson MD Tissues: COLON BIOPSY Procedures: Surgery Specimen Level IV HEADER OPERATION: Colonoscopy ? open access (MAC) PRE-OP DIAGNOSIS: Colon cancer screening TISSUE SUBMITTED: Biopsy of hepatic flexure polyp MICROSCOPIC DIAGNOSIS Hepatic flexure polyp, biopsy: Hyperplastic polyp. SJ:kartik 09/25/2021 MICROSCOPIC DESCRIPTION Slides are reviewed. GROSS DESCRIPTION Received in fixative is one container labeled with the patient's name and designated hepatic flexure polyp biopsy. The specimen consists of two irregular fragments of light patel soft tissue that in aggregate measure 0.5 x 0.5 x 0.1 cm. The specimen is totally submitted in one cassette. / SJ:kartik 09/24/21 TC:1 CPT: 32985
[2021-09-24 09:30] VITALS: BP 115/65; BP 120/73; BP 139/77; PULSE 77; PULSE 78; RESP 16; TEMP 36.2; O2SAT 98; O2SAT 99
--- NOTE | 2021-09-24 09:32 | OP.COLON_ITS ---
Patient Name: Leeann Beaulieu Procedure Date: 09/24/2021 8:59 AM Date of : 1960 Age: 61 Procedure: Colonoscopy Indications: Screening for colorectal malignant neoplasm Providers: Vernon Miner DO Medicines: See the Anesthesia note for documentation of the administered medications Patient Profile: Last Colonoscopy: more than 10 years ago. Complications: No immediate complications. Procedure: Pre-Anesthesia Assessment: - Prior to the procedure, a History and Physical was performed, and patient medications and allergies were reviewed. The patient is competent. The risks and benefits of the procedure and the sedation options and risks were discussed with the patient. All questions were answered and informed consent was obtained. Patient identification and proposed procedure were verified by the physician in the pre-procedure area. Mental Status Examination: alert and oriented. Airway Examination: normal oropharyngeal airway and neck mobility. Respiratory Examination: clear to auscultation. CV Examination: normal. Prophylactic Antibiotics: The patient does not require prophylactic antibiotics. Prior Anticoagulants: The patient has taken no previous anticoagulant or antiplatelet agents. After reviewing the risks and benefits, the patient was deemed in satisfactory condition to undergo the procedure. The anesthesia plan was to use moderate sedation / analgesia (conscious sedation). Immediately prior to administration of medications, the patient was re-assessed for adequacy to receive sedatives. The heart rate, respiratory rate, oxygen saturations, blood pressure, adequacy of pulmonary ventilation, and response to care were monitored throughout the procedure. The physical status of the patient was re-assessed after the procedure. After I obtained informed consent, the scope was passed under direct vision. Throughout the procedure, the patient's blood pressure, pulse, and oxygen saturations were monitored continuously. The Colonoscope was introduced through the anus and advanced to the cecum, identified by appendiceal orifice and ileocecal valve. The colonoscopy was performed without difficulty. The patient tolerated the procedure well. The quality of the bowel preparation was good. Moderate Sedation: Moderate (conscious) sedation was administered by the endoscopy nurse and supervised by the endoscopist. The patient's oxygen saturation, heart rate, blood pressure and response to care were monitored. Total physician intraservice time was 15 minutes. Scope In: 9:09:21 AM Scope Withdrawal Time 0 hours 10 minutes 1 second Scope Out: 9:25:42 AM Total Procedure Duration Time 0 hours 16 minutes 21 seconds Findings: The perianal and digital rectal examinations were normal. A 5 mm polyp was found in the hepatic flexure. The polyp was sessile. The polyp was removed with a jumbo cold forceps. Resection and retrieval were complete. Verification of patient identification for the specimen was done. Estimated blood loss was minimal. A few small-mouthed diverticula were found in the sigmoid colon and descending colon. There was no evidence of diverticular bleeding. Impression: - One 5 mm polyp at the hepatic flexure, removed with a jumbo cold forceps. Resected and retrieved. - Moderate diverticulosis in the sigmoid colon and in the descending colon. There was no evidence of diverticular bleeding. Recommendation: - Discharge patient to home. - Resume previous diet. - Continue present medications. - Await pathology results. - Repeat colonoscopy in 5 years for surveillance. - Return to GI office PRN. Procedure Code(s): --- Professional --- 65971, Colonoscopy, flexible; with biopsy, single or multiple G0500, Moderate sedation services provided by the same physician or other qualified health patient care specialist performing a gastrointestinal endoscopic service that sedation supports, requiring the presence of an independent trained observer to assist in the monitoring of the patient's level of consciousness and physiological status; initial 15 minutes of intra-service time; patient age 5 years or older (additional time may be reported with 21338, as appropriate) CPT copyright 2017 [employer]. All rights reserved. The codes documented in this report are preliminary and upon living coach review may be revised to meet current compliance requirements. Vernon Miner DO 09/24/2021 9:32:05 AM This report has been signed electronically. Number of Addenda: 1 Note Initiated On: 09/24/2021 8:59 AM Addendum Number: 1 Addendum Date: 07/01/2022 6:56:29 AM MAC was used instead of moderate sedation for the patient. Vernon Miner DO 07/01/2022 6:56:36 AM This report has been signed electronically.
--- NOTE | 2021-09-24 09:33 | OP.CCLET_ITS ---
07/01/2022 Yennifer Johnson MD [address] [place] [address] [place] [address] Re : Colonoscopy procedure for Leeann Beaulieu Dear Dr. Johnson This procedure was performed on Friday, September 24, 2021. My impressions and recommendations are as follows: Impressions : - One 5 mm polyp at the hepatic flexure, removed with a jumbo cold forceps. Resected and retrieved. - Moderate diverticulosis in the sigmoid colon and in the descending colon. There was no evidence of diverticular bleeding. Recommendations : - Discharge patient to home. - Resume previous diet. - Continue present medications. - Await pathology results. - Repeat colonoscopy in 5 years for surveillance. - Return to GI office PRN. My findings are described in the full procedure note, which is enclosed. If I can be of further assistance, please feel free to contact me at . Sincerely, Vernon Friend, 09/24/2021 9:32:05 AM This report has been signed electronically.
[2021-09-24 09:40] VITALS: BP 113/61; BP 139/77; PULSE 79; RESP 18; O2SAT 100
[2021-09-24 09:45] VITALS: BP 114/68; BP 139/77; PULSE 72; RESP 18; TEMP 36.2; O2SAT 100
[2021-09-24 09:51] VITALS: BP 139/77
== END 2021-09-24 10:19 | disposition home or self-care (01) ==
LOC: EN 07:32 → AC 07:33
PROVIDERS: PCP Internal Medicine; Referring Provider Internal Medicine; Visit Provider Internal Medicine Gastroenterology
PROC: 0DJD8ZZ Inspection of Lower Intestinal Tract, Via Natural or Artificial Opening Endoscopic (ICD-10-PCS; CPT 45378; principal; 2021-09-24 08:55)
DX: Z12.11 Encounter for screening for malignant neoplasm of colon (principal); K63.5 Polyp of colon; K57.30 Diverticulosis of large intestine without perforation or abscess without bleeding; I11.9 Hypertensive heart disease without heart failure; I48.0 Paroxysmal atrial fibrillation; I35.1 Nonrheumatic aortic (valve) insufficiency; J45.909 Unspecified asthma, uncomplicated; E78.2 Mixed hyperlipidemia; Z79.01 Long term (current) use of anticoagulants; Z79.899 Other long term (current) drug therapy; Z87.891 Personal history of nicotine dependence
CPT/HCPCS: 45380; 88305; J7120; J2405

== ENCOUNTER → 2021-09-25 12:41 | Outpatient (CLI) | payer BC, SELFPAY ==
[2021-04-08 15:17] VITALS: BMI 29.5
--- NOTE | 2021-09-25 12:44 | BI_ITS ---
MAMMOGRAPHY - BILATERAL SCREENING REASON FOR EXAM: Female, 61 years old. Routine annual screening examination. PERTINENT HISTORY: Mother with breast cancer. Remote left excisional breast biopsy. Prior bilateral reduction surgery. TECHNIQUE: Digital bilateral breast darrell (3D mammographic acquisition) in the CC and MLO projections. 2-D mediolateral oblique (MLO) and craniocaudad (CC) views of both breasts were obtained. CAD: Full Field Digital Mammography with Computer Added Detection was performed. COMPARISON: Comparison is made with prior study dated 08/27/2020 and 07/03/2019. FINDINGS: Breast Composition: There are scattered areas of fibroglandular density. There are no dominant masses or suspicious calcifications. Asymmetry of breast tissue in the breast tissue is seen in the upper-outer quadrant of the right breast as compared to the left side. This is unchanged. No other significant abnormalities are identified. There has been no significant change since the prior study. BI/SCRN MAMM (CAD)W/DARRELL BILAT IMPRESSION: Stable bilateral screening mammogram. Yearly follow-up mammogram recommended. (A) ASSESSMENT CATEGORY: BIRADS Category 2: Benign. A letter regarding these results will be sent to the patient by the facility within 30 days. Approximately 10% of breast cancers are not detected by mammography. A normal mammogram should not delay biopsy of a clinically suspicious abnormality. [id number] Electronically Signed: Fady Villanueva MD at 14:49 EST , Service support ,
--- NOTE | 2021-09-25 12:55 | BD_ITS ---
STUDY: DUAL ENERGY X-RAY ABSORPTIOMETRY / DXA REASON FOR EXAM: Female, 61 years old. Postmenopausal TECHNIQUE: Bone Mineral Density (BMD) measurements of lumbar spine and bilateral hips were obtained. COMPARISON: None. FINDINGS: Lumbar Spine (L1-L4): g/cm2 (0.955) / T-score (-0.8) / Z-score (0.7) Findings are suggestive of normal bone density with a low fracture risk. Left Femur Total: g/cm2 (0.835) / T-score (-0.9) / Z-score (0.2) Left Femoral Neck: g/cm2 (0.76) / T-score (-0.7) / Z-score (0.6) Right Femur Total: g/cm2 (0.845) / T-score (-0.8) / Z-score (0.2) Right Femoral Neck: g/cm2 (0.789) / T-score (-0.5) / Z-score (0.8) BD/Dexa Bone Density Study IMPRESSION: The patient is considered normal as outlined below according to World [employer] Organization (WHO) criteria with a low fracture risk. Reference Information: The T-score is the number of standard deviations above or below the standard which is normal for young adults at their peak bone mineral density. The World Health Organization (WHO) interprets the T-scores as follows: Above -1 Normal bone density Between -1 and -2.5 Osteopenia Equal to / or below -2.5 Osteoporosis As a practical clinical guideline, osteopenia may be graded as follows: Mild -1 through -1.5 Moderate -1.6 through -2.0 Severe -2.1 through -2.4 The Z-score is the number of standard deviations above or below age-matched controls. A Z-score of less than -1.5 would be considered abnormal. References: 1. NIH Osteoporosis and Related Bone Diseases www osteo.org 2. International Society for Clinical Densitometry www iscd.org 3. National Osteoporosis Foundation www nof.org Electronically Signed: Fady Villanueva MD at 8:38 EST , Service support ,
== END ==
PROVIDERS: PCP Internal Medicine; Referring Provider Internal Medicine; Visit Provider Internal Medicine
DX: Z12.31 Encounter for screening mammogram for malignant neoplasm of breast (principal); Z78.0 Asymptomatic menopausal state; Z80.3 Family history of malignant neoplasm of breast
CPT/HCPCS: 77063; 77067; 77080

== ENCOUNTER 2021-10-28 12:50 | Outpatient (CLI) | payer BC, SELFPAY | END 2021-10-28 23:59 | disposition short-term general hospital (02) | LOC: LABSPEC 12:51 | PROVIDERS: PCP Internal Medicine; Referring Provider Physician Assistant Surgical; Visit Provider Physician Assistant Surgical | DX: Z11.52 Encounter for screening for COVID-19 (principal) | CPT/HCPCS: 87635; U0003; U0005 ==

== ENCOUNTER 2021-12-15 06:58 | Outpatient (CLI) | payer BC, SELFPAY ==
[2021-12-15 07:57] LABS: AST(SGOT) 15 U/L (15-37); Alanine Aminotransfer ALT/SGPT 19 U/L (13-56); Albumin, Serum 3.7 g/dL (3.2-5.0); Alkaline Phosphatase 76 U/L (45-117); Bilirubin, Direct 0.11 mg/dL (0.00-0.30); Cholesterol 171 mg/dL (200); Globulin 3.5 g/dL (2.2-4.2); High Density Lipoprotein 59 mg/dL; Protein, Total 7.2 g/dL (6.4-8.2); Triglycerides 89 mg/dL; Very Low Density Lipoprotein 18 mg/dL (5-40)
== END 2021-12-15 23:59 | disposition home or self-care (01) ==
LOC: LAB 07:00
PROVIDERS: PCP Internal Medicine; Referring Provider Internal Medicine Cardiovascular Disease; Visit Provider Internal Medicine Cardiovascular Disease
DX: E78.00 Pure hypercholesterolemia, unspecified (principal); E78.2 Mixed hyperlipidemia
CPT/HCPCS: 36415; 80061; 80076

== ENCOUNTER 2022-05-04 16:53 | Emergency (ER) | payer BC, SELFPAY ==
[2022-05-04 16:54] VITALS: BP 185/86; PULSE 110; RESP 24; TEMP 36.2; O2SAT 100; BMI 30.4
--- NOTE | 2022-05-04 17:03 | EDS_ITS ---
HPI History of Present Illness Chief Complaint: Allergic Reaction Detail of Chief Complaint: Bee sting to right wrist and right knee. Informant: patient Onset/Context/Timing Onset: Today Context: Sudden Onset Timing: Continuous Current Severity: Moderate Maximum Severity: Moderate Narrative Narrative: 62-year-old female history of A. fib and allergy to bee stings. Was stung about an hour ago on her right wrist and right knee. Started having tightening in her throat and felt like she was having trouble breathing. Started having tightening in her throat and thought she was having trouble breathing. She has epinephrine pens but did not use it. Prior similar symptoms: Yes Recent Illness/Hospitalization: No PFSH PFSH Medical History Anemia Arthritis Asthma (12/06/15) Asthma exacerbation Atrial fibrillation Back pain Back problem Breast lump in female Cardiology follow-up encounter Chest pain Chest pain Colon cancer screening Cough Dizziness Dizziness and giddiness Dyspnea on exertion Dyspnea on exertion Essential (primary) hypertension Frequent headaches Heartburn History of atrial fibrillation History of echocardiogram History of stress test Hypertension Left ventricular hypertrophy Leg cramps Mixed hyperlipidemia Nonrheumatic aortic valve insufficiency Palpitations Paroxysmal atrial fibrillation Paroxysmal ventricular tachycardia Preventative health care Restless legs Routine adult health maintenance Seasonal allergies Shortness of breath on exertion Syncope and collapse Syncope and collapse Upper respiratory infection Wears glasses Home Medications budesonide-formoterol HFA 160 mcg-4.5 mcg/actuation aerosol inhaler 2 puff inhalation BID 07/18/19 [History Last Taken Unknown] ibuprofen 600 mg tablet 600 mg PO Q6H PRN PRN Pain Score 1-10/10 #60 tabs 07/28/19 [Rx Last Taken Unknown] albuterol sulfate 90 mcg/actuation aerosol inhaler (Proventil HFA) 2 puff inhalation PRN PRN Sob &/Or Wheezing #8.5 grams 01/10/20 [Rx Last Taken Unknown] ropinirole 0.25 mg tablet (Requip) 0.25 mg PO QHS #90 tabs 03/19/20 [Rx Last Taken Unknown] disability placard #1 ea 11/13/20 [Rx Last Taken Unknown] epinephrine 0.3 mg/0.3 mL injection, auto-injector 0.3 mg (0.3 mL) IM Q5-15M PRN anaphylaxis #2 ea 04/08/21 [Rx Last Taken Unknown] baclofen 10 mg tablet 10 mg PO BID PRN Pain 06/20/21 [History Last Taken Unknown] ezetimibe 10 mg tablet 10 mg PO DAILY #90 tabs 07/10/21 [Rx Last Taken Unknown] albuterol sulfate 2.5 mg/0.5 mL solution for nebulization 2.5 mg (0.5 mL) inhalation Q6H PRN Sob &/Or Wheezing #90 ea 08/27/21 [Rx Last Taken Unknown] gemfibrozil 600 mg tablet 600 mg PO BID #180 tabs 10/01/21 [Rx Last Taken Unknown] losartan 50 mg-hydrochlorothiazide 12.5 mg tablet See Rx Instructions .Route .COMPLEX #90 TABLETS 10/01/21 [Rx Last Taken Unknown] apixaban 5 mg tablet (Eliquis) 5 mg PO BID #180 tabs 03/30/22 [Rx Last Taken Unknown] diltiazem HCl 240 mg capsule,extended release 24 hr 240 mg PO DAILY #90 caps 03/30/22 [Rx Last Taken Unknown] flecainide 100 mg tablet 100 mg PO Q12H #180 tabs 03/30/22 [Rx Last Taken Unknown] Allergy/AdvReac Type Severity Reaction Status Date / Time Opioids - Morphine Analogues Allergy Severe Anaphylaxis Verified 09/24/21 07:57 perfume Allergy Severe swelling Verified 09/24/21 07:57 bee pollen Allergy Anaphylaxis Verified 09/24/21 07:57 codeine Allergy Anaphylaxis Verified 09/24/21 07:57 niacin Allergy Angioedema Verified 09/24/21 07:57 oxycodone HCl [From Percocet] Allergy Anaphylaxis Verified 09/24/21 07:57 propoxyphene napsylate Allergy Angioedema Verified 09/24/21 07:57 [From Darvocet-N] simvastatin [From Zocor] Allergy Angioedema Verified 09/24/21 07:57 hydromorphone [From Dilaudid] AdvReac Mild Other Verified 09/24/21 07:57 bees Allergy Severe anaphylaxis Uncoded 09/24/21 07:57 dogs Allergy Severe swelling Uncoded 09/24/21 07:57 electrode adhesive Allergy Severe blisters Uncoded 09/24/21 07:57 Family History Father CVA (cerebral vascular accident) Diabetes Hypertension High cholesterol Mother Breast cancer Cancer Diabetes Hypertension Grandmother CAD (coronary artery disease) Myocardial infarction, Onset Age: 68 Brother Diabetes Aunt Cancer Surgical History H/O tubal ligation History of bilateral breast reduction surgery History of cardiac catheterization History of left heart catheterization (05/25/18) History of lumpectomy of left breast History of partial hysterectomy Hx of colonoscopy Hx of tonsillectomy Social History Smoking Status: Former smoker quit date: 06/25/96 pack-years: 16 Tobacco: How many years used: 12 Electronic Cigarette Use: not used how long ago did patient quit smokin years ago second hand exposure: No alcohol intake: current alcohol intake frequency: holidays/special occasions only Alcohol type: wine substance use type: does not use caffeine: Yes Type: coffee Number of servings: 1 what type of physical activity do you participate in: none additional social history: DOES USE ASPIRIN DOES USE IBUPROFEN ROS ROS ED ROS Narrative Shortness of breath and throat tightening after the bee sting. Review of Systems ROS Unobtainable: Denies due to encephalopathy Constitutional Constitutional ED: Denies chills Eyes Eyes: Denies blurry vision ENT ENT ED: Denies ear pain Cardiovascular Cardiovascular: Denies chest pain Respiratory/Chest Respiratory/Chest: Reports dyspnea; Denies cough Gastrointestinal Gastrointestinal: Denies abdominal pain Genitourinary Genitourinary ED: Denies dysuria Musculoskeletal Musculoskeletal: Denies arthralgias Integumentary Denies abscess Neurologic Neurologic: Denies headache(s) Psychiatric Psychiatric: Denies anxiety Endocrine Endocrinology: Denies cold intolerance Hematologic/Lymphatic Hematologic/Lymphatic: Reports none Allergic/Immunologic Allergic/Immunologic ED: Denies mouth swelling, tongue swelling or urticaria EXAM Physical Exam Narrative Exam Narrative: 62-year-old female anxious. Vital signs stable. Pulse ox 100%. H EENT exam unremarkable. No swelling of lips or tongue. Posterior pharynx unremarkable. Neck nontender. Lungs are clear. Heart regular rhythm no murmur. Rate about 110. Abdomen soft. Moving all 4 extremities. Localized bee sting right wrist and right knee no stinger. Skin otherwise unremarkable. Local allergic reaction. Neurologically she is awake alert. No focal deficits. Anxious. Const Vital Signs: 05/04/22 16:54 05/04/22 18:49 Temperature 97.1 F L Temperature Source Temporal Pulse Rate 110 H 74 Respiratory Rate 24 H 16 Blood Pressure 185/86 H 132/74 H Blood Pressure Mean 119 93 Pulse Ox 100 Oxygen Delivery Method Room Air Positive well nourished and well developed; Negative for obese, cachectic, contractures or unkempt General Appearance ED: well developed; Negative for unkempt, cachectic or contractures Nutritional Appearance: Negative for cachectic or obese HEENT Reports moist mucous membranes; Denies dry mucous membranes Negative for trauma Mouth ED: No dry mucous membranes Mouth: No dry mucous membranes Eyes PERRL and EOMs intact bilaterally General Eye ED: Negative for pale conjunctiva or scleral icterus Neck no lymphadenopathy, supple and no JVD General: Negative for tenderness Chest Wall inspection of chest normal and palpation of chest normal Resp normal respiratory effort and clear to auscultation bilaterally Resp Narrative: Subjective dyspnea. Effort and Inspection: Negative for retractions Auscultation: Negative for rales, rhonchi or wheezes Cardio regular rhythm, S2 normal heart sound and no murmurs; Negative for regular rate Rate: tachycardic GI normal to inspection, nondistended, normoactive bowel sounds, non-tender, non- distended and no masses Inspection: Negative for abdominal distention Auscultation: normoactive bowel sounds Palpation: soft; Negative for tender or guarding Back/Spine no CVA tenderness Extremity normal to inspection Extremity Narrative: Except basting to right dorsal wrist and right knee. Local reaction. General Extremety ED: Negative for edema or tenderness General Extremity: Negative for edema Neuro oriented x3 and CN's II-XII intact bilaterally Sensorium / Orientation: alert; Negative for orientation impaired, lethargic or stuporous Motor Exam: strength 5/5 throughout; Negative for general weakness Psych mental status grossly normal Appearance: Negative for unkempt Attitude: No agitated Mood & Affect: Negative for depressed Skin No no rashes or lesions noted and no wounds Skin Narrative: Local reaction to bee stings. Rashes: rashes noted MDM MDM MDM Narrative Medical decision making narrative: Patient with reaction to bee stings. History of anaphylaxis. Treated with IV Solu-Medrol, IV Benadryl with IV Pepcid. Repeat exam at 6:45 pm she her symptoms completely resolved. The rash at the sting sites is resolved. She is having no trouble breathing or swallowing. Discharge Plan Triage Chief Complaint: Allergic Reaction ED Provider: Ilir Mckeon Dx/Rx/DC Orders Clinical Impression: Allergic reaction to hymenoptera venom, History of atrial fibrillation Instructions: ED General Allergic Reactions Prescriptions: No Action baclofen 10 mg tablet 10 mg PO BID PRN (Reason: Pain) epinephrine 0.3 mg/0.3 mL auto-injector 0.3 mg IM Q5-15M PRN (Reason: anaphylaxis) Qty: 2 2RF Rx Instructions: do not exceed 3 doses per episode albuterol sulfate 2.5 mg/0.5 mL solution for nebulization 2.5 mg/0.5 mL solution for nebulization 2.5 mg INHALATION Q6H PRN (Reason: Sob &/Or Wheezing) Qty: 90 3RF budesonide-formoterol 1 INHALER inhaler 2 puff inhalation BID ibuprofen 600 MG tablet 600 mg PO Q6H PRN PRN (Reason: Pain Score 1-10/10) Qty: 60 0RF albuterol sulfate [Proventil HFA] 90 mcg/actuation HFA aerosol inhaler 2 puff INHALATION PRN PRN (Reason: Sob &/Or Wheezing) Qty: 8.5 3RF ropinirole [Requip] 0.25 mg tablet 0.25 mg PO QHS Qty: 90 1RF Rx Instructions: administer 1-3 hours before bedtime (DME) disability placard See Rx Instructions .ROUTE .MEDSUPPLY Qty: 1 0RF Rx Instructions: As directed, Length of time: 5 years ezetimibe 10 mg tablet 10 mg PO DAILY Qty: 90 3RF losartan-hydrochlorothiazide 50-12.5 mg tablet See Rx Instructions .ROUTE .COMPLEX Qty: 90 3RF Dose Instruction: TAKE 1 TABLET BY MOUTH EVERY DAY Rx Instructions: TAKE 1 TABLET BY MOUTH EVERY DAY gemfibrozil 600 mg tablet 600 mg PO BID Qty: 180 3RF Eliquis 5 mg tablet 5 mg PO BID Qty: 180 3RF diltiazem HCl 240 mg capsule,extended release 24hr 240 mg PO DAILY Qty: 90 3RF flecainide 100 mg tablet 100 mg PO Q12H Qty: 180 3RF Primary Care Provider: Yennifer Johnson Referrals: Yennifer Johnson MD [Primary Care Provider] - As Needed Activity Restrictions/Additional Instructions: Ice to the bee stings. Benadryl as needed. Disposition Disposition: Home, Self Care Discharge Date/Time: 05/04/22 18:50
[2022-05-04] MEDS: DiphenhydrAMINE 50 MG/ML Syringe 25 MG IV (17:15)
[2022-05-04] MEDS: Famotidine 200 MG/20 ML MDV 20 MG in 0.9% Normal Saline (Pres. free 8 ML 300 MG IV (17:16)
[2022-05-04] MEDS: MethylPREDNISolone 125 MG/2 ML Vial IV (17:17)
[2022-05-04 18:49] VITALS: BP 132/74; PULSE 74; RESP 16
== END 2022-05-04 18:50 | disposition home or self-care (01) ==
PROVIDERS: Emergency Provider Emergency Medicine; PCP Internal Medicine; Visit Provider Emergency Medicine
DX: T63.444A Toxic effect of venom of bees, undetermined, initial encounter (principal); I48.91 Unspecified atrial fibrillation; I10 Essential (primary) hypertension; E78.2 Mixed hyperlipidemia; M19.90 Unspecified osteoarthritis, unspecified site; J45.909 Unspecified asthma, uncomplicated; Z87.891 Personal history of nicotine dependence; Z79.899 Other long term (current) drug therapy
CPT/HCPCS: 96374; 96375; 99282; A4216; J3490

== ENCOUNTER → 2022-05-15 | Outpatient (CLI) | payer BC, SELFPAY ==
[2022-05-15 09:07] LABS: AST(SGOT) 13 U/L (15-37); Alanine Aminotransfer ALT/SGPT 19 U/L (13-56); Albumin, Serum 3.6 g/dL (3.2-5.0); Alkaline Phosphatase 80 U/L (45-117); Cholesterol 162 mg/dL (200); Globulin 3.6 g/dL (2.2-4.2); High Density Lipoprotein 56 mg/dL; Protein, Total 7.2 g/dL (6.4-8.2); Triglycerides 85 mg/dL; Very Low Density Lipoprotein 17 mg/dL (5-40)
== END | disposition home or self-care (01) ==
LOC: LAB 07:09
PROVIDERS: PCP Internal Medicine; Referring Provider Internal Medicine Cardiovascular Disease; Visit Provider Internal Medicine Cardiovascular Disease
DX: E78.2 Mixed hyperlipidemia (principal)
CPT/HCPCS: 36415; 80061; 80076

== ENCOUNTER → 2022-06-09 | Outpatient (CLI) | payer BC, SELFPAY ==
[2022-06-09 17:52] LABS: Thyroid Stim Hormone (TSH) 1.73 uIU/mL (0.358-3.74)
[2022-06-09 19:30] LABS: Vitamin B12 362 pg/mL (211-911)
== END | disposition home or self-care (01) ==
LOC: BIMLAB 15:53
PROVIDERS: PCP Internal Medicine; Referring Provider Internal Medicine; Visit Provider Internal Medicine
DX: F32.A Depression, unspecified (principal); F41.9 Anxiety disorder, unspecified
CPT/HCPCS: 36415; 82607; 84439; 84443

== ENCOUNTER → 2022-06-24 | Outpatient (CLI) | payer BC, SELFPAY ==
[2022-06-24 17:09] LABS: Absolute Lymphocyte Count 2.61 X10^3/uL (0.83-4.51); Absolute Neutrophil Count 6.7 X10^3/uL (2.0-7.7); Basophil# 0.08 X10^3/uL; Basophil% 0.7 % (0-1); Eosinophil# 0.22 X10^3/uL; Hematocrit 39.4 % (37-47); Lymphocyte # 2.61 X10^3/ul (0.83-4.51); Lymphocyte % 24.3 % (19-41); Mean Corpuscular Hgb 30.4 pg (27.0-32.0); Mean Corpuscular Volume 92.3 fL (81-99); Mean Platelet Vol. 10.1 fl (6.2-12.0); Monocyte# 1.04 X10^3/uL; Monocyte% 9.7 % (0-10); NRBC Flagged by Analyzer 0 % (0-5); Neutrophil # 6.74 X10^3/uL (2.7-7.7); Neutrophil % 62.6 % (47-70); Platelet Count 433 K/mm3 (150-450); RBC Distribution Width CV 12.2 % (11.6-14.6); Red Blood Count 4.27 M/mm3 (4.2-5.4); White Blood Count 10.8 K/mm3 (4.4-11.0)
[2022-06-24 17:24] LABS: Anion Gap 4 (5-15); BUN 17 mg/dL (7-18); BUN/Creat Ratio 18.8 RATIO (10-20); Calcium,Total 9.7 mg/dL (8.5-10.1); Chloride 107 mmol/L (98-107); EST Glomerular Filtration Rate 67 mL/min (>60); Est Glom Filt Rate - Afr Amer 81 mL/min (>60); Glucose 81 mg/dL (74-106); Magnesium 2.4 mg/dL (1.6-2.6); Potassium 3.5 mmol/L (3.5-5.1); Sodium Level 142 mmol/L (136-145)
== END | disposition home or self-care (01) ==
LOC: LAB 15:47
PROVIDERS: PCP Internal Medicine; Referring Provider Nurse Practitioner Gerontology; Visit Provider Nurse Practitioner Gerontology
DX: R00.2 Palpitations (principal); R53.83 Other fatigue
CPT/HCPCS: 36415; 80048; 83735; 85025

== ENCOUNTER → 2022-07-28 | Outpatient (CLI) | payer BC, SELFPAY ==
--- NOTE | 2022-07-28 15:58 | US_ITS ---
STUDY: SUPERFICIAL ULTRASOUND - LEFT KNEE REASON FOR EXAM: Female, 62 years old. Lump behind knee TECHNIQUE: A superficial ultrasound was performed with real-time and static bailey-scale imaging. COMPARISON: None. FINDINGS: Localized heterogeneous collection posterior to the left knee measures 6.2 x 1.2 x 2.3 cm with complex internal echoes. 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 Electronically Signed: Angela Quiroz MD at 4:44 EDT ,
== END | disposition home or self-care (01) ==
LOC: US 15:57
PROVIDERS: PCP Internal Medicine; Referring Provider Physician Assistant; Visit Provider Physician Assistant
DX: R22.40 Localized swelling, mass and lump, unspecified lower limb (principal)
CPT/HCPCS: 76882

== ENCOUNTER → 2022-09-28 | Outpatient (CLI) | payer BC, SELFPAY ==
--- NOTE | 2022-09-28 07:02 | BI_ITS ---
MAMMOGRAPHY - BILATERAL SCREENING REASON FOR EXAM: Female, 62 years old. Routine annual screening examination. PERTINENT HISTORY: Mother with breast cancer. History of prior bilateral breast reduction surgery and prior left excisional breast biopsy TECHNIQUE: Digital bilateral breast darrell (3D mammographic acquisition) in the CC and MLO projections. 2-D mediolateral oblique (MLO) and craniocaudad (CC) views of both breasts were obtained. CAD: Full Field Digital Mammography with Computer Added Detection was performed. COMPARISON: Comparison is made with prior study dated 09/25/2021 and 08/27/2020. FINDINGS: Breast Composition: There are scattered areas of fibroglandular density. There are no dominant masses or suspicious calcifications. Stable small benign-appearing bilateral axillary lymph nodes. No other significant abnormalities are identified. There has been no significant change since the prior study. BI/SCRN MAMM (CAD)W/DARRELL BILAT IMPRESSION: Stable bilateral screening mammogram. Yearly follow-up mammogram recommended. (A) ASSESSMENT CATEGORY: BIRADS Category 2: Benign. A letter regarding these results will be sent to the patient by the facility within 30 days. Approximately 10% of breast cancers are not detected by mammography. A normal mammogram should not delay biopsy of a clinically suspicious abnormality. [id number] Electronically Signed: Fady Villanueva MD at 8:07 EST ,
== END | disposition home or self-care (01) ==
LOC: OPBI 07:01
PROVIDERS: PCP Internal Medicine; Visit Provider Internal Medicine
DX: Z12.31 Encounter for screening mammogram for malignant neoplasm of breast (principal); Z80.3 Family history of malignant neoplasm of breast; Z85.3 Personal history of malignant neoplasm of breast
CPT/HCPCS: 77063; 77067

== ENCOUNTER → 2022-10-31 | Outpatient (CLI) | payer BC, SELFPAY ==
[2022-10-31 08:04] LABS: AST(SGOT) 12 U/L (15-37); Alanine Aminotransfer ALT/SGPT 22 U/L (13-56); Albumin, Serum 3.9 g/dL (3.2-5.0); Alkaline Phosphatase 82 U/L (45-117); Cholesterol 176 mg/dL (200); Globulin 3.7 g/dL (2.2-4.2); High Density Lipoprotein 68 mg/dL; Protein, Total 7.6 g/dL (6.4-8.2); Triglycerides 88 mg/dL; Very Low Density Lipoprotein 18 mg/dL (5-40)
== END | disposition home or self-care (01) ==
LOC: LAB 07:28
PROVIDERS: PCP Internal Medicine; Visit Provider Internal Medicine Cardiovascular Disease
DX: E78.00 Pure hypercholesterolemia, unspecified (principal)
CPT/HCPCS: 36415; 80061; 80076

== ENCOUNTER → 2023-02-02 | Outpatient (CLI) | payer BC, SELFPAY ==
--- NOTE | 2023-02-02 13:24 | MRI_ITS ---
STUDY: MRI LEFT KNEE REASON FOR EXAM: Female, 62 years old. medial pain x 6 months, swelling, painful ambulation TECHNIQUE: Standardized fat and water weighted pulse sequences were obtained in all 3 orthogonal planes. COMPARISON: X-ray of the left knee dated August 06, 2022 FINDINGS: Free edge radial tearing is present in the body and anterior horn of the medial meniscus. There is also intrasubstance degenerative signal and slight swelling throughout the posterior horn of the medial meniscus. The body is partly subluxed out of the joint space due to narrowing. There is diffuse, greater than 50% thickness articular cartilage loss of the medial femorotibial compartment. There is mild osteoarthritic spur formation of the medial knee compartment. Mild subchondral reactive signal is also seen on both sides of the medial compartment with developing subchondral cystic changes. Normal medial collateral ligamentous complex (MCL). Normal distal semimembranosus, gracilis and semitendinosus tendons. There is attrition of the free edge of the lateral meniscus without a demonstrated meniscal tear. There is diffuse, less than 50% thickness articular cartilage loss of the lateral femorotibial compartment. Normal lateral femoral condyle and tibial plateau. Normal proximal tibiofibular articulation. Normal lateral collateral (fibular) ligament. Normal popliteus tendon. Normal biceps femoris tendon. Normal anterior cruciate ligament (ACL). Normal posterior cruciate ligament (PCL). Normal congruent patellofemoral articulation. There is diffuse, greater than 50% thickness articular cartilage loss of the patellofemoral compartment. There is full-thickness loss of cartilage is demonstrated over the median patellar ridge. Normal medial and lateral patellar retinaculum. Normal quadriceps tendon. Normal patellar tendon. Normal Hoffa''s fat pad. There is a moderate volume joint effusion. A moderate size Poe''s cyst is also present measuring 5.80 cm with slight leakage from its inferior border. The soft tissues are unremarkable. The otherwise visualized osseous structures are unremarkable. MRI/Lower Ext Joint Only (Routine) IMPRESSION: 1. Moderate DJD in the medial compartment with radial tearing of the anterior horn and body of the medial meniscus and degeneration the posterior horn. 2. Moderate to high-grade cartilage loss of the patellofemoral compartment 3. Moderate size joint effusion 4. Moderate-sized Poe''s cyst 5. Diffuse thinning/attrition of the lateral meniscus Electronically Signed: Maximilian Garnett MD at 23:49 EDT ,
== END | disposition home or self-care (01) ==
LOC: MRI 13:23
PROVIDERS: PCP Internal Medicine; Referring Provider Orthopaedic Surgery Sports Medicine; Visit Provider Orthopaedic Surgery Sports Medicine
DX: M71.22 Synovial cyst of popliteal space [Baker], left knee (principal); M17.12 Unilateral primary osteoarthritis, left knee
CPT/HCPCS: 73721

== ENCOUNTER 2023-02-24 05:44 | Day surgery (SDC) | payer BC, SELFPAY ==
[2023-02-24] VITALS (11 sets, daily range): BP systolic 81–148; BP diastolic 54–77; PULSE 66–79; RESP 16–18; TEMP 36.2–36.9; O2SAT 96–100; BMI 28.0
[2023-02-24] MEDS: Lactated Ringers 1,000 ML 15 ML IV ×2 (06:20→09:08)
--- NOTE | 2023-02-24 07:09 | HP.PCM_ITS ---
HPI - General HPI Narrative LANDY CROCKETT, is a 62 F who presents for left knee arthroscopy, MM and debridement. No changes to h and p. OK to proceed, left knee marked. RAB and post op WBAT with crutches discussed. Patient allergic to many narcotics, so getting spinal and block, will use tylenol and NSAIDs post op. No further questions. MR#: [id number] Acct: [id number] Name:? LANDY CROCKETT Rep #: [id number] : 1960 ? ? Provider: Dr. Nate Rubio MD Age/Sex:? 62/F ? ? [place] [facility] Status: Signed Intake Vital Signs ? 07/27/2213:39 Height 5 ft 3 in Intake Visit Reasons:?LEFT KNEE Chief Complaint: left knee pain Is patient in pain?: Yes Pain scale (1-10): 9 Allergies dog dander Allergy (Severe, Verified 02/04/23 08:04) SwellingOpioids - Morphine Analogues Allergy (Severe, Verified 02/04/23 08:04) Anaphylaxisperfume Allergy (Severe, Verified 02/04/23 08:04) swellingvenom-honey bee Allergy (Severe, Verified 02/04/23 08:04) Anaphylaxisbee pollen Allergy (Verified 02/04/23 08:04) Anaphylaxiscodeine Allergy (Verified 02/04/23 08:04) Anaphylaxisniacin Allergy (Verified 02/04/23 08:04) Angioedemaoxycodone HCl [From Percocet] Allergy (Verified 02/04/23 08:04) Anaphylaxispropoxyphene napsylate [From Darvocet-N] Allergy (Verified 02/04/23 08:04) Angioedemasimvastatin [From Zocor] Allergy (Verified 02/04/23 08:04) Angioedemaadhesive Adverse Reaction (Severe, Verified 02/04/23 08:04) Otherhydromorphone [From Dilaudid] Adverse Reaction (Mild, Verified 02/04/23 08:04) Other Medications ibuprofen 600 mg tablet 600 mg PO Q6H PRN PRN Pain Score 1-10/10 #60 tabs 10/0 02/10 [Rx Confirmed 02/04/23] disability placard #1 ea 11/13/20 [Rx Confirmed 02/04/23] omeprazole 40 mg capsule,delayed release 40 mg PO DAILY #90 caps 06/09/22 [Rx Confirmed 02/04/23] vitamin B complex (B Complex-Vitamin B12 tablet) 1 tab PO DAILY 06/24/22 [History Confirmed 02/04/23] calcium carbonate 200 mg calcium (500 mg)-vitamin D3 400 unit tablet tab PO 08/06/22 [History Confirmed 02/04/23] apixaban 5 mg tablet (Eliquis) 5 mg PO BID #180 tabs 11/02/22 [Rx Confirmed 02/04/23] diltiazem HCl 240 mg capsule,extended release 24 hr 240 mg PO DAILY #90 caps 11/02/22 [Rx Confirmed 02/04/23] ezetimibe 10 mg tablet 10 mg PO DAILY #90 tabs 11/02/22 [Rx Confirmed 02/04/23] flecainide 100 mg tablet 100 mg PO Q12H #180 tabs 11/02/22 [Rx Confirmed 02/04/23] gemfibrozil 600 mg tablet 600 mg PO BID #180 tabs 11/02/22 [Rx Confirmed 02/04/23] losartan 50 mg-hydrochlorothiazide 12.5 mg tablet 1 tab PO DAILY #90 TABLETS 11/02/22 [Rx Confirmed 02/04/23] PFSH Medical History?(Updated 02/04/23 @ 08:22 by Nate Rubio MD) Anemia Anxiety and depression Arthritis Asthma (12/06/15) Asthma exacerbation Atrial fibrillation Back pain Back problem Breast lump in female Cardiology follow-up encounter Change in bowel habits Chest pain Chest pain Colon cancer screening Cough Dizziness Dizziness and giddiness Dyspnea on exertion Dyspnea on exertion Essential (primary) hypertension Fecal incontinence Frequent headaches GERD (gastroesophageal reflux disease) Heartburn History of atrial fibrillation History of echocardiogram History of stress test Hypertension Left ventricular hypertrophy Leg cramps Mixed hyperlipidemia Nonrheumatic aortic valve insufficiency Osteoarthritis of left knee Palpitations Paroxysmal atrial fibrillation Paroxysmal ventricular tachycardia Preventative health care Restless legs Routine adult health maintenance Seasonal allergies Shortness of breath on exertion Syncope and collapse Syncope and collapse Synovial cyst of popliteal space [Poe], left knee Tear of medial meniscus of left knee Upper respiratory infection Wears glasses Surgical History? H/O tubal ligation History of bilateral breast reduction surgery History of cardiac catheterization History of left heart catheterization (05/25/18) History of lumpectomy of left breast History of partial hysterectomy Hx of colonoscopy Hx of tonsillectomy Family History? Father CVA (cerebral vascular accident) Diabetes Hypertension High cholesterolMother Breast cancer Cancer Diabetes HypertensionGrandmother?? CAD (coronary artery disease) Myocardial infarction,? Onset Age: 68Brother DiabetesAunt Cancer Social History? Smoking Status:? Former smoker quit date: 06/25/96 pack-years: 16 Tobacco: How many years used:? 12 Electronic Cigarette Use:? not used how long ago did patient quit smoking:? 23 years ago second hand exposure:? No alcohol intake:? current alcohol intake frequency: holidays/special occasions only Alcohol type: wine substance use type:? does not use caffeine:? Yes Type: coffee Number of servings: 1 what type of physical activity do you participate in:? none additional social history:? DOES USE ASPIRIN DOES USE IBUPROFEN HPI LEFT KNEE Details: Parts of this documentation were recorded by a scribe, this documentation accurately reflects the service provided and the decisions made by me, Dr. Nate Rubio MD 02/04/23 0803. LANDY CROCKETT is a 62 year old F follow-up left knee MRI .? The cortisone injection is worn off completely.? The patient is getting stabbing pain along the medial joint line and just superior to this especially with prolonged walking or twisting on the knee feels like there is some stabbing pain some giving way in that area.? Ortho Exam General General: Yes no acute distress Neurologic: Yes alert and Yes oriented x3 Psychologic: Yes reasonable and appropriate Right Knee Patella Translation: 2 Left Knee Skin/Wound: Yes CDI, No ecchymosis, No erythema and Yes swelling Knee ROM: Yes ROM-Flexion 0-140 Examination: Yes med jt line tenderness, No Lat jt line tenderness, No TTP inf pole patella, Yes Crepitus, Yes Pain with flexion, Yes Jay's Test, No TTP Patellar tendon, No TTP Tibial tubercle, No TTP Pes Anserine and No Illiotibial band tenderness Stability: NML: Anterior Drawer, NML: Davon, NML: Posterior Drawer, NML: Valgus 0, NML: Valgus 30, NML: Varus 0 and NML: Varus 30 Patella Translation: 2 Patellar Tilt Normal: Yes Patella Grind: Yes KNEE: normal gait Supplemental Info [facility] [place] Imaging Services [address] [place] [address] Lower Ext Joint Only (Routine) MR#:? [id number] Acct: [id number] Name:? LANDY CROCKETT Rep #: [id number] :?? 1960 F 62 ? From:? ? Maximilian Garnett MD PCP: Dr. Yennifer Johnson MD ? Status: REG CLI Study: Lower Ext Joint Only (Routine) ? Date of Exam: 02/02/23 Exam# [id number] ? Ordering Dr:? Nate Rubio MD STUDY:? MRI LEFT KNEE REASON FOR EXAM:? Female, 62 years old. ? medial pain x 6 months, swelling, painful ambulation TECHNIQUE:? Standardized fat and water weighted pulse sequences were obtained in all 3 orthogonal planes. COMPARISON:? X-ray of the left knee dated August 06, 2022 FINDINGS: Free edge radial tearing is present in the body and anterior horn of the medial meniscus. There is also intrasubstance degenerative signal and slight swelling throughout the posterior horn of the medial meniscus. The body is partly subluxed out of the joint space due to narrowing.? There is diffuse, greater than 50% thickness articular cartilage loss of the medial femorotibial compartment.? There is mild osteoarthritic spur formation of the medial knee compartment. ? Mild subchondral reactive signal is also seen on both sides of the medial compartment with developing subchondral cystic changes. Normal medial collateral ligamentous complex (MCL).? Normal distal semimembranosus, gracilis and semitendinosus tendons. There is attrition of the free edge of the lateral meniscus without a demonstrated meniscal tear.? There is diffuse, less than 50% thickness articular cartilage loss of the lateral femorotibial compartment.? Normal lateral femoral condyle and tibial plateau. Normal proximal tibiofibular articulation.? Normal lateral collateral (fibular) ligament.? Normal popliteus tendon.? Normal biceps femoris tendon. Normal anterior cruciate ligament (ACL).? Normal posterior cruciate ligament (PCL). Normal congruent patellofemoral articulation.? There is diffuse, greater than 50% thickness articular cartilage loss of the patellofemoral compartment. There is full-thickness loss of cartilage is demonstrated over the median patellar ridge. Normal medial and lateral patellar retinaculum. Normal quadriceps tendon.? Normal patellar tendon.? Normal Hoffa''s fat pad. There is a moderate volume joint effusion.? A moderate size Poe''s cyst is also present measuring 5.80 cm with slight leakage from its inferior border. The soft tissues are unremarkable.? The otherwise visualized osseous structures are unremarkable. MRI/Lower Ext Joint Only (Routine) IMPRESSION: 1.? Moderate DJD in the medial compartment with radial tearing of the anterior horn and body of the medial meniscus and degeneration the posterior horn. 2.? Moderate to high-grade cartilage loss of the patellofemoral compartment 3.? Moderate size joint effusion 4.? Moderate-sized Poe''s cyst 5.? Diffuse thinning/attrition of the lateral meniscus ? Electronically Signed: Maximilian Garnett MD at 23:49 EDT Reading Location ID and State: [address] [place] [address] , Service support? , ? Agree with the radiologist assessment there is tricompartmental osteoarthritis worse in the medial compartment with radial tearing of the body of the medial meniscus with some mild extrusion there. Coding Level of Care Code Off vis,est,level 4 Diagnoses Osteoarthritis of left knee? M17.12 Synovial cyst of popliteal space [Poe], left knee? M71.22 Tear of medial meniscus of left knee? S83.242A Comment decision for surgery with defined risks Assessment and Plan Assessment and Plan (1) Osteoarthritis of left knee: ?Status:?Acute ?Plan: 62-year-old female with left knee pain medial meniscus tear in the setting of moderate tricompartmental osteoarthritis and a Poe's cyst.? Discussed all the other treatment options rest ice anti-inflammatories not recommended the patient is on Eliquis continued injections viscosupplementation or cortisone activity modifications bracing physical therapy as well as a left knee arthroscopy, partial medial meniscectomy and debridement which may not resolve all the pain considering the moderate arthritis as well as considering a total knee arthroplasty.? Patient wishes to proceed with minimally invasive minor procedure probably less reliable than a total knee although patient does not desiring a large operation or joint replacement.? Discussed the pros and cons risks and benefits of this versus other treatment options as well as recovery 2 weeks on crutches 6 to 12 weeks before returning to normal activities.? Patient understands wishes to proceed.? 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 ?pros and cons risks and benefits were discussed with the patient including but not limited to infection, pain, stiffness, bleeding, damage to surrounding structures, neurovascular injury, recurrence or retear, failure or wear of hardware or fixation, instability, fracture, deep vein thrombosis and pulmonary embolism, anesthetic risks, , patient dissatisfaction, need for further surgery and other risks.? Patient understood and wished to proceed with surgery, and signed the informed consent documentation.? [facility] Medical History (Updated 02/17/23 @ 13:56 by Shanda Veronica) Anemia Anxiety and depression Arthritis Asthma (12/06/15) Asthma exacerbation Atrial fibrillation Back pain Back problem Breast lump in female Cardiology follow-up encounter Change in bowel habits Chest pain Chest pain Colon cancer screening Cough Dizziness Dizziness and giddiness Dyspnea on exertion Dyspnea on exertion Essential (primary) hypertension Fecal incontinence Frequent headaches GERD (gastroesophageal reflux disease) Heartburn High cholesterol History of atrial fibrillation History of echocardiogram History of stress test Hypertension Left ventricular hypertrophy Leg cramps Mixed hyperlipidemia Nonrheumatic aortic valve insufficiency Osteoarthritis of left knee Palpitations Paroxysmal atrial fibrillation Paroxysmal ventricular tachycardia Preventative health care Restless legs Routine adult health maintenance Seasonal allergies Shortness of breath on exertion Syncope and collapse Syncope and collapse Synovial cyst of popliteal space [Poe], left knee Tear of medial meniscus of left knee Upper respiratory infection Wears glasses Home Medications ibuprofen 600 mg tablet 600 mg PO Q6H PRN PRN Pain Score 1-08/03 #60 tabs 07/28/19 [Rx Last Taken Unknown] disability placard #1 ea 11/13/20 [Rx Last Taken Unknown] vitamin B complex (B Complex-Vitamin B12 tablet) 1 tab PO DAILY 06/24/22 [History Last Taken Unknown] calcium carbonate 200 mg calcium (500 mg)-vitamin D3 400 unit tablet 1 tab PO DAILY 08/06/22 [History Last Taken Unknown] apixaban 5 mg tablet (Eliquis) 5 mg PO BID #180 tabs 11/02/22 [Rx Last Taken 02/21/23] diltiazem HCl 240 mg capsule,extended release 24 hr 240 mg PO DAILY #90 caps 11/02/22 [Rx Last Taken 02/24/23 05:30] ezetimibe 10 mg tablet 10 mg PO DAILY #90 tabs 11/02/22 [Rx Last Taken Unknown] flecainide 100 mg tablet 100 mg PO Q12H #180 tabs 11/02/22 [Rx Last Taken 02/24/23 05:30] gemfibrozil 600 mg tablet 600 mg PO BID #180 tabs 11/02/22 [Rx Last Taken Unknown] losartan 50 mg-hydrochlorothiazide 12.5 mg tablet 1 tab PO DAILY #90 TABLETS 11/02/22 [Rx Last Taken Unknown] Allergy/AdvReac Type Severity Reaction Status Date / Time dog dander Allergy Severe Swelling Verified 02/24/23 06:22 Opioids - Morphine Analogues Allergy Severe Anaphylaxis Verified 02/24/23 06:22 perfume Allergy Severe swelling Verified 02/24/23 06:22 venom-honey bee Allergy Severe Anaphylaxis Verified 02/24/23 06:22 bee pollen Allergy Anaphylaxis Verified 02/24/23 06:22 codeine Allergy Anaphylaxis Verified 02/24/23 06:22 niacin Allergy Angioedema Verified 02/24/23 06:22 oxycodone HCl [From Percocet] Allergy Anaphylaxis Verified 02/24/23 06:22 propoxyphene napsylate Allergy Angioedema Verified 02/24/23 06:22 [From Darvocet-N] simvastatin [From Zocor] Allergy Angioedema Verified 02/24/23 06:22 adhesive AdvReac Severe Other Verified 02/24/23 06:22 hydromorphone [From Dilaudid] AdvReac Mild Other Verified 02/24/23 06:22 Family History Father CVA (cerebral vascular accident) Diabetes Hypertension High cholesterol Mother Breast cancer Cancer Diabetes Hypertension Grandmother CAD (coronary artery disease) Myocardial infarction, Onset Age: 68 Brother Diabetes Aunt Cancer Surgical History H/O tubal ligation History of bilateral breast reduction surgery History of cardiac catheterization History of left heart catheterization (05/25/18) History of lumpectomy of left breast History of partial hysterectomy Hx of colonoscopy Hx of tonsillectomy Social History Smoking Status: Former smoker quit date: 06/25/96 pack-years: 16 Tobacco: How many years used: 12 Electronic Cigarette Use: not used how long ago did patient quit smokin years ago second hand exposure: No alcohol intake: current alcohol intake frequency: holidays/special occasions only Alcohol type: wine substance use type: does not use caffeine: Yes Type: coffee Number of servings: 1 what type of physical activity do you participate in: none additional social history: DOES USE ASPIRIN DOES USE IBUPROFEN Vital Signs Vital Signs Vital Signs: 02/24/23 06:15 02/24/23 06:15 Temperature 98.1 F Temperature Source Temporal Pulse Rate 74 Respiratory Rate 18 Respiratory Pattern Normal Blood Pressure 131/77 H Blood Pressure Mean 95 Blood Pressure Source Monitor Blood Pressure Position Sitting Blood Pressure Location Right Arm Pulse Ox 100 Oxygen Delivery Method Room Air Weight Weight: 158 lb 11.725 oz Body Mass Index (BMI) 28.0
[2023-02-24] MEDS: Cefazolin 2 GM in 0.9% Normal Saline 100 ML IV (07:34)
[2023-02-24] MEDS: Epinephrine (1 mg/ml) 1 MG/ML VIAL (07:56)
--- NOTE | 2023-02-24 08:17 | DCINST_ITS ---
Discharge Instructions Diet Discharge Diet: No restrictions Activity Discharge Activity: Return to Normal Activity and Use Crutches Ice area for (Minutes): 10 Weight Bearing Status: Full weight bearing Keep extremity elevated above heart level: Operative Extremity Dressing / Incision Call your doctor if your incision/area has: Continuous Slow Oozing, Sudden Increased Bleeding, Increased Pain/ Swelling, Increased Redness, Foul Smelling Discharge and Swelling at the incision site Change Dressing in: leave in place till F/U Follow Up Care Please Follow Up With: Nate Rubio MD When: 2 days Test Results: Test results from this visit will be discussed in further detail at your follow- up appointment, if applicable. Discharge Plan Admission Attending Provider: Nate Rubio Primary Care Provider: Yennifer Johnson Instructions Patient Instructions: After Knee Arthroscopy Discharge Orders/Prescriptions Prescriptions: No Action vitamin B complex [B Complex-Vitamin B12] Tablet 1 tab PO DAILY calcium carbonate-vitamin D3 200 mg (500 mg) -400 unit tablet 1 tab PO DAILY ibuprofen 600 MG tablet 600 mg PO Q6H PRN PRN (Reason: Pain Score 1-10/10) Qty: 60 0RF (DME) disability placard See Rx Instructions .ROUTE .MEDSUPPLY Qty: 1 0RF Rx Instructions: As directed, Length of time: 5 years gemfibrozil 600 mg tablet 600 mg PO BID Qty: 180 3RF losartan-hydrochlorothiazide 50-12.5 mg tablet 1 tab PO DAILY Qty: 90 3RF Eliquis 5 mg tablet 5 mg PO BID Qty: 180 3RF diltiazem HCl 240 mg capsule,extended release 24hr 240 mg PO DAILY Qty: 90 3RF flecainide 100 mg tablet 100 mg PO Q12H Qty: 180 3RF ezetimibe 10 mg tablet 10 mg PO DAILY Qty: 90 3RF Referrals / Follow Up: Yennifer Johnson MD [Primary Care Provider] - Nate Rubio MD [Med Staff - Active Staff] - Disposition Disposition (needs filled in before D/C Order can be placed): Home, Self Care
--- NOTE | 2023-02-24 08:19 | PCM.OPRPT ---
Problems Associated Problem List Diagnoses (1) Tear of medial meniscus of left knee: (2) Osteoarthritis of left knee: Report of Operation Date of Procedure: 02/24/23 Pre-Operative Diagnosis: Left knee medial meniscus tear and osteoarthritis Post-Operative Diagnosis: Same Surgery/Procedure Performed:: Left knee arthroscopy, partial medial meniscectomy and debridement Surgeon: Nate Rubio Type of Anesthesia: Spinal Anesthesiologist: Carlos Orozco Estimated Blood Loss (mL): 10cc Description of Procedure: Patient brought to the operating room theater. Placed supine on the table. Stress positioner to the patient's left side. 30 inch tourniquet he left thigh appropriately padded. SCD on the nonoperative leg. 2 g IV Ancef administered prior to the start of the procedure. Spinal anesthetic administered prior to the entering the room. Left lower extremity prepped and draped in the usual sterile fashion chlorhexidine-based prep solution allowing over 3 minutes drying time prior to draping. Preoperative timeout performed to confirm site patient and surgery. Began by elevating the limb inflating the tourniquet to 250 mmHg. Made standard anterolateral and anteromedial arthroscopy incisions. Inserted the scope anterolaterally. Debrided small ligamentum mucosum. ACL and PCL appeared normal. Patellofemoral joint had grade 2-3 changes undersurface the patella as well as grade 3 some grade 4 changes on the trochlea. Again gently debrided, as well as some redundant soft tissue. Medial and lateral gutters entered no loose bodies. Arthroscopy pictures taken and saved onto the system throughout the case. Medial compartment entered. Grade 4 changes primarily at the medial femoral condyle as well as grade 3 mostly at the medial tibial plateau. Inner surface radial and degenerative tearing at the inner margin of the mid to posterior horn medial meniscus again debrided using a biter instruments and shaver to stable margins medial meniscus probed found to be stable. I next entered into the lateral compartment grade 1 changes both sides, lateral meniscus appeared normal and stable to probing. Arthroscope withdrawn. Case terminated tourniquet let down hemostasis achieved wound cleaned with wet and dry dressing followed application of Steri-Strips Adaptic 4 x 4 gauze ABD dressings and Conner bandage loosely wrapped. Patient transferred off the operating room table taken to postanesthetic care unit in stable condition. All sponge needle instrument counts were correct no complications plan for the patient weightbearing as tolerated crutches range of motion as tolerated follow-up in the office in 2 days time. Complications none Admit VTE Documentation VTE Present on Admission: No VTE Mechan Device Prophylaxis: SCD's Reason prophylaxis not ordered:: Treatment Not Indicated Procedures Musculoskeletal 20xxx-29xxx: Other Procedure See Report
[2023-02-24] MEDS: Acetaminophen 500 MG Tablet 1000 MG PO (10:49)
[2023-02-24] MEDS: Ondansetron 4 MG/2 ML Vial IV (11:48)
== END 2023-02-24 13:27 | disposition home or self-care (01) ==
LOC: SDC 05:45 → AC 05:46
PROVIDERS: PCP Internal Medicine; Referring Provider Orthopaedic Surgery Sports Medicine; Visit Provider Orthopaedic Surgery Sports Medicine
PROC: (CPT 29870; principal; 2023-02-24 07:10)
DX: S83.242A Other tear of medial meniscus, current injury, left knee, initial encounter (principal); I48.91 Unspecified atrial fibrillation; X58.XXXA Exposure to other specified factors, initial encounter; M17.12 Unilateral primary osteoarthritis, left knee; M71.22 Synovial cyst of popliteal space [Baker], left knee; I10 Essential (primary) hypertension; E78.2 Mixed hyperlipidemia; K21.9 Gastro-esophageal reflux disease without esophagitis; Z79.01 Long term (current) use of anticoagulants; Z79.1 Long term (current) use of non-steroidal anti-inflammatories (NSAID); Z79.899 Other long term (current) drug therapy; J45.909 Unspecified asthma, uncomplicated; Z87.891 Personal history of nicotine dependence
CPT/HCPCS: 29881; 64447; J7120; J2405

== ENCOUNTER → 2023-03-16 | Outpatient (CLI) | payer BC, SELFPAY ==
[2023-03-16 08:30] LABS: AST(SGOT) 17 U/L (15-37); Alanine Aminotransfer ALT/SGPT 22 U/L (13-56); Albumin, Serum 3.8 g/dL (3.2-5.0); Alkaline Phosphatase 88 U/L (45-117); Bilirubin, Direct 0.12 mg/dL (0.00-0.30); Cholesterol 179 mg/dL (200); High Density Lipoprotein 66 mg/dL; Protein, Total 7.8 g/dL (6.4-8.2); Triglycerides 62 mg/dL; Very Low Density Lipoprotein 12 mg/dL (5-40)
== END | disposition home or self-care (01) ==
LOC: LAB 07:19
PROVIDERS: PCP Internal Medicine; Referring Provider Internal Medicine Cardiovascular Disease; Visit Provider Internal Medicine Cardiovascular Disease
DX: E78.2 Mixed hyperlipidemia (principal); E78.00 Pure hypercholesterolemia, unspecified
CPT/HCPCS: 36415; 80061; 80076

== ENCOUNTER 2023-05-05 16:30 | Outpatient (RCR) | payer BC, SELFPAY ==
--- NOTE | 2023-03-17 12:01 | HP.PTEVAL ---
Patient's Visit Information LANDY CROCKETT is a 63 year old F referred to Physical Therapy by Dr. Nate Rubio MD with a diagnosis of L menisectomy/OA. Date of Evaluation: 03/17/23 Physical Therapist: JOYCE Siddiqui - Visit Plan Frequency: 2-3x /Week Duration: 2 Months Plan: 2-3X/ week for 6-8 weeks for Quad strength, L knee AROM/PROM/AAROM, L knee and hip strength, gait training, functional activities such as stairs with HEP. HEP: QS, TKE, heel slides, AA SLR - Subjective She had no incident. She has 10 grandkids and she has a trampoline and she skates. She had arthroscopic on 02-24-23. He took out It was either that or a knee replacement. R medial meniscal tear posterior horn,. She can not put al her weight on it. Her knee locks up if she sits too long. She can not squat. Her worst time is at night and she can not sleep. She has an ice machine and still swollen. She was just checked the other day by the Dr. She is not doing any exercises at home yet. She feels that she is very weak. The ice man has been great. She has had no pain meds. She wakes up constantly through the night. She has to be careful getting out of bed cause she has a high bed. She just got off one crutch the other day. - Pain L knee pain Pain Intensity (Out of 10): 7 - Objective Gait: walks with no AD, decreased stance time on the L LE, knee flexion, decreased stride length, no heel to toe gait pattern. Worked with pt to get back to 2 crutches with heel strike and she was able to walk much better with harish Quad activation. L knee AROM -4 degrees after working on extension to 114 decrease knee flex. Girth measurements: Tib tub 37.4, and 39.2, and 40.5. Pt is able to do a SLR (AA needed after about 5 SLR). Pt has no visible QS. Pt felt looser after Nu-step and did gain some ROM with Quad sets - Balance/Special Test Scores Lower Extremity Functional Score: 19 - Goals Goal 1:: I HEP Goal Time Frame: 6-8 Weeks Goal 2:: Walk with normal gait pattern with no antalgic gait Goal Time Frame: 6-8 Weeks Goal 3:: Increase L Knee AROM 0-120 Goal Time Frame: 6-8 Weeks Goal 4:: Be able to go up and down the steps recip with 1 hand rail for balance with no signs of weakness Goal Time Frame: 6-8 Weeks - Rehabilitation Potential Rehabilitation Potential: Good - Anticipated Interventions Patient/Client Instruction: Educate patient on: Condition, Plan of Care For the Purpose of:: To decrease pain, To decrease swelling/inflammation, To increase ROM, To improve nutrient delivery to tissue, To improve muscle performance and motor function, To improve ability to perform ADL's, To increase tolerance to activity/condition/position, To improve performance and independence with ADL's, To decrease level of supervision to perform tasks, To improve ability of physical actions for home/community/work/leisure, To improve gait and locomotor functions, To improve health of tissue, To decrease soft tissue restriction, To increase flexibility/ROM, To improve balance, To improve safety with gait Therapeutic Exercise to Include: Strength training, Endurance training, Balance training, Postural training, Flexibilty training, Gait and locomotor training, Neuromotor development, Passive ROM, Active ROM For the Purpose of:: To decrease pain, To decrease swelling/inflammation, To increase ROM, To increase oxygenation perfusion, To improve muscle performance and motor function, To improve ability to perform ADL's, To increase tolerance to activity/condition/position, To improve performance and independence with ADL's, To decrease level of supervision to perform tasks, To improve ability of physical actions for home/community/work/leisure, To improve gait and locomotor functions, To improve health of tissue, To decrease soft tissue restriction, To increase flexibility/ROM, To improve endurance, To improve balance Functional Training to Include: Gait training For the Purpose of:: To improve gait and locomotor functions, To improve safety with gait Manual Therapy Techniques to Include: Passive ROM For the Purpose of:: To increase flexibility/ROM Cryotherapy (ice pack, ice massage): Yes Vasopneumatic device: Yes For the Purpose of:: To decrease pain, To decrease swelling/inflammation, To increase ROM, To improve nutrient delivery to tissue Thank you for the opportunity to evaluate your patient. For Medicare and Medicare HMO plans, please review the plan of care and approve it. It will need to be FAXED BACK to us at [phone] for Medicare purposes. For Medicare only, by signing this I certify the plan of care. Please let me know if there are questions or concerns regarding this plan of care. Physician Signature: Date:
--- NOTE | 2023-05-05 17:28 | HP.PTDCSUM ---
Discharge Summary D/C summary: It has been my pleasure to treat LANDY CROCKETT referred by Dr. Nate Rubio MD, with the diagnosis of L menisectomy/OA for a total of 14 visit(s). Discharge Date: 05/05/23 Please see the following information for a summary of their discharge status. Subjective Subjective: At [employer] and does the Leg Press, biking, HEP 2 X/ kia. She is staying active. She feels that she is getting stronger. She knows her limits. She is doing good on steps. If she sit to long it takes her a few minutes until her L leg feels good and then she can walk on it. No more sharp pains. Pain L knee pain: Pain Intensity (Out of 10): 2 Overall Improvement % Improvement: 90 Objective Objective/Function: stairs: gait: pt is still not putting her full weight on the L LE with gait Stairs: up and down recip with one had rail... she still shows some signs of weakness on the L when ascending and decreased eccentric control when descending the steps. LE MMT: R hip flex 13 and L 13.8 R knee ext 16.8 L 14.8 R knee flex 10.5 and L 9.7 Goals Goal 1:: I HEP Goal Progress: Goal Met Goal 2:: Walk with normal gait pattern with no antalgic gait Goal Progress: Progressing Goal 3:: Increase L Knee AROM 0-120 Goal Progress: Goal Met Goal 4:: Be able to go up and down the steps recip with 1 hand rail for balance with no signs of weakness Goal Progress: Progressing Plan Plan: DC PT to I exercise program D/C Information Discharge Comments: DC PT to own I program d/c sentence: If there are questions or concerns regarding this patient's physical therapy, please feel free to call me at [phone]. Thank you for the referral of this patient. Sincerely, Susan Zambrano, MPT Balance/Gait/Functional tests Balance/Special Test Scores Lower Extremity Functional Score: 55
== END 2023-05-05 19:00 | disposition home or self-care (01) ==
LOC: PT 16:30
PROVIDERS: PCP Internal Medicine; Visit Provider Orthopaedic Surgery Sports Medicine
DX: S83.242D Other tear of medial meniscus, current injury, left knee, subsequent encounter (principal); M17.12 Unilateral primary osteoarthritis, left knee
CPT/HCPCS: 97014; 97110; 97161; 97530; G0283

== ENCOUNTER → 2023-07-03 | Outpatient (CLI) | payer BC, SELFPAY ==
[2023-07-03 09:10] LABS: AST(SGOT) 15 U/L (15-37); Alanine Aminotransfer ALT/SGPT 20 U/L (13-56); Albumin, Serum 3.8 g/dL (3.2-5.0); Alkaline Phosphatase 79 U/L (45-117); Bilirubin, Direct 0.14 mg/dL (0.00-0.30); Cholesterol 153 mg/dL (200); Globulin 3.8 g/dL (2.2-4.2); High Density Lipoprotein 53 mg/dL; Protein, Total 7.6 g/dL (6.4-8.2); Triglycerides 81 mg/dL; Very Low Density Lipoprotein 16 mg/dL (5-40)
== END | disposition home or self-care (01) ==
LOC: LAB 07:42
PROVIDERS: PCP Internal Medicine; Referring Provider Nurse Practitioner Gerontology; Visit Provider Nurse Practitioner Gerontology
DX: E78.2 Mixed hyperlipidemia (principal)
CPT/HCPCS: 36415; 80061; 80076

== ENCOUNTER → 2023-09-27 | Outpatient (CLI) | payer BC, SELFPAY ==
[2023-09-27 15:49] LABS: Absolute Lymphocyte Count 1.81 X10^3/uL (0.83-4.51); Absolute Neutrophil Count 8.1 X10^3/uL (2.0-7.7); Basophil# 0.07 X10^3/uL; Basophil% 0.6 % (0-1); Eosinophil# 0.15 X10^3/uL; Eosinophils% 1.4 % (0-5); Hematocrit 39.5 % (37-47); Hemoglobin 12.9 g/dL (12.0-15.0); Lymphocyte # 1.81 X10^3/ul (0.83-4.51); Lymphocyte % 16.5 % (19-41); Mean Corp Hgb Conc 32.7 g/dL (32-36); Mean Corpuscular Hgb 29.5 pg (27.0-32.0); Mean Corpuscular Volume 90.4 fL (81-99); Mean Platelet Vol. 10.3 fl (6.2-12.0); Monocyte# 0.84 X10^3/uL; Monocyte% 7.7 % (0-10); NRBC Flagged by Analyzer 0 % (0-5); Neutrophil # 8.05 X10^3/uL (2.7-7.7); Neutrophil % 73.3 % (47-70); Platelet Count 452 K/mm3 (150-450); RBC Distribution Width CV 11.9 % (11.6-14.6); RBC Distribution Width SD 39.6 fl (35.1-43.9); Red Blood Count 4.37 M/mm3 (4.2-5.4)
[2023-09-27 16:27] LABS: Anion Gap 9 (5-15); BUN 16 mg/dL (7-18); BUN/Creat Ratio 20.6 RATIO (10-20); Calcium,Total 9.4 mg/dL (8.5-10.1); Chloride 106 mmol/L (98-107); Creatinine, Serum 0.78 mg/dL (0.55-1.02); EST Glomerular Filtration Rate 80 mL/min (>60); Est Glom Filt Rate - Afr Amer 97 mL/min (>60); Glucose 90 mg/dL (74-106); Potassium 3.8 mmol/L (3.5-5.1); Sodium Level 139 mmol/L (136-145)
== END | disposition home or self-care (01) ==
LOC: BIMLAB 13:27
PROVIDERS: PCP Internal Medicine; Referring Provider Internal Medicine; Visit Provider Internal Medicine
DX: Z00.00 Encounter for general adult medical examination without abnormal findings (principal)
CPT/HCPCS: 36415; 80048; 85025

== ENCOUNTER → 2023-10-21 | Outpatient (CLI) | payer BC, SELFPAY ==
--- NOTE | 2023-10-21 07:37 | BI_ITS ---
MAMMOGRAPHY - BILATERAL SCREENING 3-D TOMOSYNTHESIS REASON FOR EXAM: Female, 63 years old. Routine annual screening mammogram. PERTINENT HISTORY: Mother with breast cancer. Prior bilateral breast reduction surgery and left excisional breast biopsy. TECHNIQUE: 2-D mammograms and 3-D Tomosynthesis of the breast (s) were performed. CAD was performed. COMPARISON: September 28, 2022, September 25, 2021 FINDINGS: The breast composition is almost entirely fat. Stable normal lymph nodes and scattered benign calcifications. No dominant masses, suspicious microcalcifications, asymmetries, skin thickening or nipple retraction. BI/SCRN MAMM (CAD)W/DARRELL BILAT IMPRESSION: No interval change and no mammographic signs of malignancy. Yearly screening mammogram recommended. ASSESSMENT CATEGORY: BIRADS Category 2: Benign. A letter regarding these results will be sent to the patient by the facility within 30 days. FOLLOW UP RECOMMENDATION: Yearly follow up mammogram recommended. (A) Approximately 10% of breast cancers are not detected by mammography. A normal mammogram should not delay biopsy of a clinically suspicious abnormality. Electronically Signed: Harpreet Fuentes MD at 11:02 EST ,
--- OUTSIDE RECORDS SUMMARY | 2023-10-21 07:39 | XMS RPT_ITS | CCD ---
Author Name Unknown Address [address] [place] [address] Organization [facility] Results Test Name Value Interpretation Reference Range Facil ity Summary Purpose Family History No Family History Records Found Advance Directives No Advanced Directives Records Found Additional Source Comments INFORMATION SOURCE (unrecogn ized section and content) FOR RECORDS PERTAINING TO PATIENTS WHO ARE OR HAVE BEEN ENROLLED IN A CHEMICAL DEPENDENCY/SUBSTANCEABUSE PROGRAM, SOME INFORMATION MAY BE OMITTED. This clinical summary was aggregated from multiple sources. Caution should be exercised in using it in the provision of clinical care. This summary normalizes information from multiple sources, and as a consequence, information in this document may materially change the coding, format and clinical context of patient data. In addition, data may be omitted in some cases. CLINICAL DECISIONS SHOULD BE BASED ON THE PRIMARY CLINICAL RECORDS. [employer] provides no warranty or guarantee of the accuracy or completeness of information in this document.
== END | disposition home or self-care (01) ==
LOC: OPBI 07:36
PROVIDERS: PCP Internal Medicine; Referring Provider Internal Medicine; Visit Provider Internal Medicine
DX: Z12.31 Encounter for screening mammogram for malignant neoplasm of breast (principal); Z80.3 Family history of malignant neoplasm of breast
CPT/HCPCS: 77063; 77067

== ENCOUNTER → 2023-12-16 | Outpatient (CLI) | payer BC, SELFPAY ==
[2023-12-16 14:07] LABS: Absolute Neutrophil Count 6.9 X10^3/uL (2.0-7.7); Basophil# 0.09 X10^3/uL; Basophil% 0.9 % (0-1); Eosinophil# 0.37 X10^3/uL; Eosinophils% 3.5 % (0-5); Hematocrit 38.9 % (37-47); Hemoglobin 12.4 g/dL (12.0-15.0); Lymphocyte % 20.1 % (19-41); Mean Corp Hgb Conc 31.9 g/dL (32-36); Mean Corpuscular Hgb 28.9 pg (27.0-32.0); Mean Corpuscular Volume 90.7 fL (81-99); Mean Platelet Vol. 9.8 fl (6.2-12.0); Monocyte% 8.6 % (0-10); NRBC Flagged by Analyzer 0 % (0-5); Neutrophil % 66.1 % (47-70); Platelet Count 453 K/mm3 (150-450); RBC Distribution Width CV 12.6 % (11.6-14.6); RBC Distribution Width SD 41.3 fl (35.1-43.9); Red Blood Count 4.29 M/mm3 (4.2-5.4); White Blood Count 10.4 K/mm3 (4.4-11.0)
[2023-12-16 14:43] LABS: Anion Gap 5 (5-15); BUN 15 mg/dL (7-18); BUN/Creat Ratio 17.3 RATIO (10-20); Calcium,Total 9.3 mg/dL (8.5-10.1); Chloride 107 mmol/L (98-107); Creatinine, Serum 0.87 mg/dL (0.55-1.02); EST Glomerular Filtration Rate 70 mL/min (>60); Est Glom Filt Rate - Afr Amer 85 mL/min (>60); Free T3 2.3 pg/mL (2.18-3.98); Glucose 95 mg/dL (74-106); Magnesium 2.5 mg/dL (1.6-2.6); Potassium 3.6 mmol/L (3.5-5.1); Sodium Level 141 mmol/L (136-145); Thyroid Stim Hormone (TSH) 1.76 uIU/mL (0.358-3.74)
== END | disposition home or self-care (01) ==
LOC: LAB 13:43
PROVIDERS: PCP Internal Medicine; Referring Provider Nurse Practitioner Gerontology; Visit Provider Nurse Practitioner Gerontology
DX: R53.83 Other fatigue (principal); R00.2 Palpitations
CPT/HCPCS: 36415; 80048; 83735; 84439; 84443; 84481; 85025

== ENCOUNTER → 2023-12-27 | Outpatient (CLI) | payer BC, SELFPAY ==
--- NOTE | 2023-12-27 07:49 | CDU_ITS ---
Reason For Study: Dizziness Rt. Velocities/BP Lt. Velocities/BP Prox CCA 99/23 cm/sec. Prox CCA 92/26 cm/sec. Mid CCA 67/20 cm/sec. Mid CCA 89/24 cm/sec. Dist CCA 80/18 cm/sec. Dist CCA 74/16 cm/sec. Prox ICA 81/23 cm/sec. Prox ICA 60/26 cm/sec. Mid ICA 72/24 cm/sec. Mid ICA 73/28 cm/sec. Dist ICA 68/25 cm/sec. Dist ICA 94/34 cm/sec. Rt. ICA/CCA = 1.2. Lt. ICA/CCA = 1.1. Prox ECA 91/15 cm/sec. Prox ECA 56/10 cm/sec. Rt. Vert. 79/28 cm/sec. Lt. Vert. 24/9 cm/sec. Right Extracranial There is heterogeneous, irregular atherosclerotic plaque noted in the right common carotid artery. There is heterogeneous, irregular atherosclerotic plaque noted in the right internal carotid artery. There is intimal thickening but no significant atherosclerotic plaque noted in the right external carotid artery. Antegrade flow is noted in the right vertebral artery. Left Extracranial There is intimal thickening but no significant atherosclerotic plaque noted in the left common carotid artery. There is no significant atherosclerotic plaque noted in the left internal carotid artery. There is no significant atherosclerotic plaque noted in the left external carotid artery. Antegrade flow is noted in the left vertebral artery. Procedure Carotid Duplex 95731. This is a Carotid Duplex examination using B-mode, color flow and specral Doppler. Exam performed in department. VL/Carotid Duplex Ultrasound Interpretation Summary Mild (<50%) stenosis right extracranial internal carotid. Normal left extracranial internal carotid. Patent and antegrade vertebrals bilaterally. Ordering Physician: Karile Johnson Referring Physician: Yennifer Johnson Performed By: Noa Rodriguez, MICHELE, RVT
--- OUTSIDE RECORDS SUMMARY | 2023-12-27 08:02 | XMS RPT_ITS | CCD ---
Author Name Unknown Address [address] [place] [address] Organization [facility] Results Test Name Value Interpretation [...] BE BASED ON THE PRIMARY CLINICAL RECORDS. [employer] provides no warranty or guarantee of the accuracy or completeness of information in this document.
== END | disposition home or self-care (01) ==
LOC: CVS 07:49
PROVIDERS: PCP Internal Medicine; Referring Provider Nurse Practitioner Gerontology; Visit Provider Nurse Practitioner Gerontology
DX: R42 Dizziness and giddiness (principal)
CPT/HCPCS: 93880

== ENCOUNTER → 2024-01-17 | Outpatient (CLI) | payer BC, SELFPAY ==
--- NOTE | 2024-01-17 13:49 | ECHOD_ITS ---
Reason For Study: ARRHYTHMIA Procedure This was a 2D Doppler, Color Flow transthoracic echocardiogram. The study was technically difficult. Exam performed in department. Left Ventricle Normal LV size. Left ventricular systolic function is normal. The left ventricular ejection fraction is 70 %. No regional wall motion abnormalities noted. Right Ventricle Normal RV size. Normal systolic function. Atria Normal left atrium. Normal right atrium. Mitral Valve Normal mitral valve. Tricuspid Valve Normal tricuspid valve. Aortic Valve Trisinus/trileaflet aortic valve. Mild (1+) eccentric aortic valve insufficiency. Pulmonic Valve Normal pulmonic valve. Great Vessels Normal aortic root. Pericardium/Pleural No pericardial effusion. MMode/2D Measurements & Calculations LVIDd: 4.2 cm IVSd: 1.1 cm LVOT diam: 1.9 cm LVIDs: 1.9 cm LVPWd: 0.78 cm LVOT area: 2.8 cm2 RVDd: 2.4 cm FS: 55.9 % Ao root diam: 3.1 cm LAV(MOD-bp): 20.6 ml LVAd ap4: 21.6 cm2 LAV(MOD-bp) Indexed: 11.8 ml/m2 LVLd ap4: 6.7 cm LAV(MOD-sp2): 29.2 ml EDV(MOD-sp4): 55.7 ml LAV(MOD-sp4): 15.0 ml EDV(sp4-el): 58.9 ml LVAs ap4: 9.5 cm2 LVLs ap4: 5.2 cm ESV(MOD-sp4): 14.5 ml ESV(sp4-el): 14.8 ml EF(MOD-sp4): 74.0 % EF(sp4-el): 74.8 % LVAd ap2: 16.6 cm2 SV(MOD-sp4): 41.2 ml SV(MOD-sp2): 27.2 ml LVLd ap2: 6.1 cm EDV(MOD-sp2): 36.2 ml EDV(sp2-el): 38.3 ml LVAs ap2: 7.1 cm2 LVLs ap2: 5.0 cm ESV(MOD-sp2): 9.0 ml ESV(sp2-el): 8.7 ml EF(MOD-sp2): 75.1 % SV(sp4-el): 44.1 ml LA dimension(2D): 3.3 cm LA A4 area: 9.3 cm2 RA A4 area: 8.4 cm2 TAPSE: 1.8 cm Time Measurements MV dec time: 0.20 sec Doppler Measurements & Calculations MV E max yamileth: 58.2 cm/sec Ao V2 max: 142.2 cm/sec MV A max yamileth: 56.4 cm/sec MV dec slope: 293.3 cm/sec2 Ao max P.1 mmHg MV E/A: 1.0 Ao V2 mean: 91.9 cm/sec Ao mean P.0 mmHg Ao V2 VTI: 34.4 cm AV (velocity ratio): 0.74 CARRILLO(I,D): 2.1 cm2 CARRILLO(V,D): 2.3 cm2 AI max yamileth: 379.4 cm/sec LV V1 max: 115.1 cm/sec SV(LVOT): 72.3 ml AI max P.6 mmHg LV V1 max P.3 mmHg AI dec slope: 151.7 cm/sec2 LV V1 mean P.8 mmHg AI P1/2t: 732.7 msec LV V1 mean: 78.2 cm/sec LV V1 VTI: 25.4 cm PA V2 max: 99.9 cm/sec PI end-d yamileth: 78.2 cm/sec PA max PG (full): 2.3 mmHg ECHO/Echo Complete Interpretation Summary Normal LV size. Left ventricular systolic function is normal. The left ventricular ejection fraction is 70 %. Mild (1+) eccentric aortic valve insufficiency. Ordering Physician: Karlie Johnson Referring Physician: Yennifer Johnson Performed By: Kiarra Flores RDCS
== END | disposition home or self-care (01) ==
PROVIDERS: PCP Internal Medicine; Referring Provider Nurse Practitioner Gerontology; Visit Provider Nurse Practitioner Gerontology
DX: I48.0 Paroxysmal atrial fibrillation (principal); I47.20 Ventricular tachycardia, unspecified
CPT/HCPCS: 93306

== ENCOUNTER → 2024-04-11 | Outpatient (CLI) | payer BC, SELFPAY ==
[2024-04-11 13:16] LABS: AST(SGOT) 25 U/L (15-37); Alanine Aminotransfer ALT/SGPT 26 U/L (13-56); Albumin, Serum 3.4 g/dL (3.2-5.0); Alkaline Phosphatase 97 U/L (45-117); Bilirubin, Direct 0.15 mg/dL (0.00-0.30); Cholesterol 152 mg/dL (200); Globulin 4.2 g/dL (2.2-4.2); High Density Lipoprotein 47 mg/dL; Protein, Total 7.6 g/dL (6.4-8.2); Triglycerides 153 mg/dL; Very Low Density Lipoprotein 31 mg/dL (5-40)
== END | disposition home or self-care (01) ==
LOC: BIMLAB 10:51
PROVIDERS: Nurse Practitioner Gerontology; PCP Internal Medicine; Referring Provider Internal Medicine; Visit Provider Internal Medicine
DX: E78.00 Pure hypercholesterolemia, unspecified (principal)
CPT/HCPCS: 36415; 80061; 80076

== ENCOUNTER 2024-06-15 16:00 | Outpatient (RCR) | payer BC, SELFPAY ==
--- NOTE | 2024-04-17 18:47 | HP.PTEVAL_ITS ---
Patient's Visit Information Visit Information Visit Information: LANDY CROCKETT is a 64 year old F referred to Physical Therapy by Tin West MD with a diagnosis of Left TKR 04/03/24. Date of Evaluation: 04/17/24 Physical Therapist: Meghan Lopez DPT Visit Plan Frequency: 2-3x /Week Duration: 6 Weeks Plan: Left TKR 04/03/24- focus on ROM and strength/stabilization- functional mobility HEP Given IE: HR/TR, SLS, step stretch, seated bolster extn stretch, quad set, SLR Subjective Subjective: Left TKR 04/03/[address] West at [facility]- she stayed overnight and headed home the next day. Single story home- grand daughter and at home to help- 2 steps to enter- no problems getting in/out. Fully I prior to surgery just painful. Worst: 10 Today: 4-5/10. Agg: being up to much, overdoing it, rolling over in bed, laying over on the side, getting in/out of the bathtub. Best: 210 Eases: ice, Tylenol. The pain is located in the knee itself and it aches in the back. She reports that the pain is mostly dull and achy but she does have some sharp and shooting pains. She does try to walk with intention due to not wanting to fall. She had falls due to buckling prior to surgery. Sleep: in her bed- disturbed- 2 nights ago. She feels that she is 20-30% back to normal activities. PMHx/Meds: see list per internal medicine 04/11/24. Goals: get moving to see her great grand baby. Objective Objective: Posture: forward head, rounded shoulders- can correct but does not maintain Gait: step to gait pattern with straight cane HR/TR: able with UE A- discomfort with TR SLS: weight shift but unable to SLS without UE A Observation: no s.s of infection ROM: 0-84 degrees with pain at end ranges Strength: Core: fair minus, Hip: 4-/5 with the exception of flexion: 2+/5- moderate A with SLR. Knee: Flexion: 7.3 Extn: 3.4 Ankle: 5/5 Flex: HS: severe, Gastroc: moderate Balance/Special Test Scores Lower Extremity Functional Score: 28 Goals Goal 1:: Patient will be I with HEP and progression Goal Time Frame: 6-8 Weeks Goal 2:: Patient will ambulate <300 feet with normalized gait pattern and no AD Goal Time Frame: 6-8 Weeks Goal 3:: Patient will asc/desc 8 stairs recip with no HR Goal Time Frame: 6-8 Weeks Goal 4:: Patient will demo 0-120 degrees of ROM Goal Time Frame: 6-8 Weeks Goal 5:: Patient will SLR without assistance Goal Time Frame: 6-8 Weeks Goal 6:: Patient will report 80% improvement Goal Time Frame: 6-8 Weeks Rehabilitation Potential Physical Therapy Diagnosis: Patient presents with hypomobility s/p TKR- she has decreased LE ROM, strength, flex, proprioception and muscular endurance leading to abnormal gait and decreased ability to perform ADL's. Rehabilitation Potential: Good Anticipated Interventions Patient/Client Instruction: Educate patient on: Benefits of Fitness Program Therapeutic Exercise to Include: Strength training, Endurance training, Balance training, Coordination, Agility training, Body mechanics, Postural training, Flexibilty training, Gait and locomotor training, Neuromotor development, Passive ROM, Active ROM, Dynamic Lumbar Stabilization and Scapular Strength/Stabilization For the Purpose of:: To improve muscle performance and motor function Functional Training to Include: Gait training Manual Therapy Techniques to Include: Passive ROM and Soft tissue mobilization TENS: Yes Cryotherapy (ice pack, ice massage): Yes Thermo therapy (hot pack): Yes Ultrasound (thermal/non thermal): No Text: Thank you for the opportunity to evaluate your patient. For Medicare and Medicare HMO plans, please review the plan of care and approve it. It will need to be FAXED BACK to us at [phone] for Medicare purposes. For Medicare only, by signing this I certify the plan of care. Please let me know if there are questions or concerns regarding this plan of care. Physician Signature: Date:
--- NOTE | 2024-05-18 15:30 | HP.PTREVAL ---
Re-Evaluation Intro: Tin West MD, It has been my pleasure to treat LANDY CROCKETT over the last 14 visits for Left TKR 04/03/24. Please see the progress note below for an update on the physical therapy plan of care! Subjective Subjective: Patient reports that she had a spot that kept busting loose and the scab came off and feel better. She is challenged with both up/down stairs. She is getting better sleep. She went grocery shopping 2 days in a row 1.5 hours each. Goes back to the MD on the 07 of June. She still uses her cane intermittently. Worst: 03/03 Objective Objective/Function: Posture: forward head, rounded shoulders- can correct but does not maintain Gait: no AD- slightly antalgic Stairs: asc/desc 8 recip with 2 HR- very hesitant HR/TR: able with UE A SLS: 5 seconds Observation: no s.s of infection ROM: 0-118 degrees Strength: Core: fair minus, Hip: 4+/5 Knee: Flexion: 23 Extn: 30 Ankle: 5/5 Flex: HS: moderate, Gastroc: moderate Plan Plan Plan: 05/18/24: Continue with POC- 2x a week for 4 weeks- add gym program and focus on recip stairs Left TKR 04/03/24- focus on ROM and strength/stabilization- functional mobility HEP Given IE: HR/TR, SLS, step stretch, seated bolster extn stretch, quad set, SLR Balance/Gait/Functional tests Balance/Special Test Scores Lower Extremity Functional Score: 28 Tug Test: <10 sec.=free mobile WOMAC Total Score: 31 WOMAC Percentage: 67.7100 Goals Goals Goal 1:: Patient will be I with HEP and progression Goal Time Frame: 6-8 Weeks Goal 2:: Patient will ambulate <300 feet with normalized gait pattern and no AD Goal Time Frame: 6-8 Weeks Goal 3:: Patient will asc/desc 8 stairs recip with no HR Goal Time Frame: 6-8 Weeks Goal 4:: Patient will demo 0-120 degrees of ROM Goal Time Frame: 6-8 Weeks Goal 5:: Patient will SLR without assistance Goal Time Frame: 6-8 Weeks Goal 6:: Patient will report 80% improvement Goal Time Frame: 6-8 Weeks Anticipated Interventions Anticipated Interventions Patient/Client Instruction: Educate patient on: Benefits of Fitness Program Therapeutic Exercise to Include: Strength training, Endurance training, Balance training, Coordination, Agility training, Body mechanics, Postural training, Flexibilty training, Gait and locomotor training, Neuromotor development, Passive ROM, Active ROM, Dynamic Lumbar Stabilization and Scapular Strength/Stabilization For the Purpose of:: To improve muscle performance and motor function Functional Training to Include: Gait training Manual Therapy Techniques to Include: Passive ROM and Soft tissue mobilization TENS: Yes Cryotherapy (ice pack, ice massage): Yes Thermo therapy (hot pack): Yes Ultrasound (thermal/non thermal): No Re-Evaluation Ending Re-evaluation ending: Please do not hesitate to contact me at [phone] by phone or if you have questions or concerns regarding this new plan of care! Sincerely, Meghan Lopez DPT
--- NOTE | 2024-06-15 16:29 | HP.PTDCSUM ---
Discharge Summary D/C summary: It has been my pleasure to treat LANDY CROCKETT referred by Tin West MD, with the diagnosis of Left TKR 04/03/24 for a total of 22 visit(s). Discharge Date: 06/15/24 Please see the following information for a summary of their discharge status. Subjective Subjective: Pt reports she is ready for discharge Pain Left Knee: Pain Intensity (Out of 10): 0 Overall Improvement % Improvement: 95 Objective Objective/Function: L knee pain 0/10 L knee ROM 0-123 degrees Pt is able to ascend and descend 10 stairs without difficulty Pt is I with HEP Rx goals achieved Goals Goal 1:: Patient will be I with HEP and progression Goal Progress: Goal Met Goal 2:: Patient will ambulate <300 feet with normalized gait pattern and no AD Goal Progress: Goal Met Goal 3:: Patient will asc/desc 8 stairs recip with no HR Goal Progress: Goal Met Goal 4:: Patient will demo 0-120 degrees of ROM Goal Progress: Goal Met Goal 5:: Patient will SLR without assistance Goal Progress: Goal Met Goal 6:: Patient will report 80% improvement Goal Progress: Goal Met Plan Plan: Discharge to HEP D/C Information Discharge Comments: Rx goals achieved d/c sentence: If there are questions or concerns regarding this patient's physical therapy, please feel free to call me at [phone]. Thank you for the referral of this patient. Sincerely, Clayton Valles, PT, ATC Balance/Gait/Functional tests Balance/Special Test Scores Lower Extremity Functional Score: 64 Tug Test: <10 sec.=free mobile WOMAC Total Score: 31 WOMAC Percentage: 67.7100 Improvement % Improvement: 95
== END 2024-06-15 19:00 | disposition home or self-care (01) ==
LOC: PT 16:00
PROVIDERS: PCP Internal Medicine; Referring Provider Orthopaedic Surgery; Visit Provider Orthopaedic Surgery
DX: M17.12 Unilateral primary osteoarthritis, left knee (principal); Z96.652 Presence of left artificial knee joint
CPT/HCPCS: 97110; 97140; 97162; 97530

== ENCOUNTER → 2024-07-10 | Outpatient (CLI) | payer BC, SELFPAY ==
[2024-07-10 16:38] LABS: Absolute Lymphocyte Count 1.74 X10^3/uL (0.83-4.51); Basophil# 0.05 X10^3/uL; Basophil% 0.5 % (0-1); Eosinophil# 0.18 X10^3/uL; Eosinophils% 1.8 % (0-5); Hematocrit 37.1 % (37-47); Hemoglobin 11.9 g/dL (12.0-15.0); Lymphocyte # 1.74 X10^3/ul (0.83-4.51); Lymphocyte % 17.7 % (19-41); Mean Corp Hgb Conc 32.1 g/dL (32-36); Mean Corpuscular Hgb 28.5 pg (27.0-32.0); Mean Corpuscular Volume 88.8 fL (81-99); Mean Platelet Vol. 9.9 fl (6.2-12.0); Monocyte# 0.79 X10^3/uL; Monocyte% 8.1 % (0-10); NRBC Flagged by Analyzer 0 % (0-5); Neutrophil # 6.98 X10^3/uL (2.7-7.7); Neutrophil % 71.2 % (47-70); Platelet Count 449 K/mm3 (150-450); RBC Distribution Width CV 13.1 % (11.6-14.6); RBC Distribution Width SD 42.4 fl (35.1-43.9); Red Blood Count 4.18 M/mm3 (4.2-5.4); White Blood Count 9.8 K/mm3 (4.4-11.0)
[2024-07-10 17:09] LABS: Anion Gap 6 (5-15); BUN 15 mg/dL (7-18); BUN/Creat Ratio 21.5 RATIO (10-20); Calcium,Total 9.5 mg/dL (8.5-10.1); Chloride 105 mmol/L (98-107); EST Glomerular Filtration Rate 90 mL/min (>60); Est Glom Filt Rate - Afr Amer 109 mL/min (>60); Glucose 106 mg/dL (74-106); Potassium 3.9 mmol/L (3.5-5.1); Sodium Level 138 mmol/L (136-145)
== END | disposition home or self-care (01) ==
LOC: BIMLAB 15:04
PROVIDERS: PCP Internal Medicine; Referring Provider Internal Medicine; Visit Provider Internal Medicine
DX: Z00.00 Encounter for general adult medical examination without abnormal findings (principal)
CPT/HCPCS: 36415; 80048; 85025

== ENCOUNTER → 2024-10-21 | Outpatient (CLI) | payer BC, SELFPAY ==
[2024-10-21 09:37] LABS: AST(SGOT) 14 U/L (15-37); Alanine Aminotransfer ALT/SGPT 17 U/L (13-56); Albumin, Serum 3.7 g/dL (3.2-5.0); Alkaline Phosphatase 90 U/L (45-117); Bilirubin, Direct 0.14 mg/dL (0.00-0.30); Cholesterol 184 mg/dL (200); High Density Lipoprotein 71 mg/dL; Protein, Total 7.7 g/dL (6.4-8.2); Triglycerides 55 mg/dL; Very Low Density Lipoprotein 11 mg/dL (5-40)
== END | disposition home or self-care (01) ==
LOC: LAB 08:22
PROVIDERS: PCP Internal Medicine; Referring Provider Nurse Practitioner Gerontology; Visit Provider Nurse Practitioner Gerontology
DX: E78.2 Mixed hyperlipidemia (principal)
CPT/HCPCS: 36415; 80061; 80076

== ENCOUNTER → 2024-10-24 | Outpatient (CLI) | payer BC, SELFPAY ==
--- NOTE | 2024-10-24 10:15 | BI_ITS ---
MAMMOGRAPHY - BILATERAL SCREENING 3-D TOMOSYNTHESIS REASON FOR EXAM: Female, 64 years old. Breast cancer Screening PERTINENT HISTORY: No significant family history. TECHNIQUE: 2-D mammograms and 3-D Tomosynthesis of the breast (s) were performed. CAD was performed. COMPARISON: 10/21/2023 FINDINGS: The breast composition is composed of scattered fibroglandular density. Scattered benign calcifications are seen. No dense spiculated masses or suspicious microcalcifications are identified. No architectural distortion is identified. There is no skin thickening or retraction. There has been no significant change since the prior study. BI/SCRN MAMM (CAD)W/ADRRELL BILAT IMPRESSION: No mammographic signs of malignancy. Routine yearly mammograms recommended. ASSESSMENT CATEGORY: BIRADS Category 1: Negative. A letter regarding these results will be sent to the patient by the facility within 30 days. FOLLOW UP RECOMMENDATION: Yearly follow up mammogram recommended. (A) Approximately 10% of breast cancers are not detected by mammography. A normal mammogram should not delay biopsy of a clinically suspicious abnormality. Electronically Signed: Deandre Ricks MD at 19:33 EST ,
--- NOTE | 2024-10-24 10:20 | BD_ITS ---
STUDY: DUAL ENERGY X-RAY ABSORPTIOMETRY / DXA REASON FOR EXAM: Female, 64 years old. Post Menopausal TECHNIQUE: Bone Mineral Density (BMD) measurements of lumbar spine and bilateral hips were obtained. COMPARISON: 09/25/2021 FINDINGS: Lumbar Spine (L1-L4): g/cm2 (0.986) / T-score (-0.6) / Z-score (1.2) Findings are suggestive of normal bone density with a low fracture risk. Left Femur Total: g/cm2 (0.760) / T-score (-1.5) / Z-score (-0.3) Left Femoral Neck: g/cm2 (0.786) / T-score (-0.6) / Z-score (0.9) Right Femur Total: g/cm2 (0.821) / T-score (-1.0) / Z-score (0.2) Right Femoral Neck: g/cm2 (0.867) / T-score (0.2) / Z-score (1.6) BD/Dexa Bone Density Study IMPRESSION: The patient is considered osteopenic as outlined below according to World [employer] Organization (WHO) criteria with a moderate fracture risk. There has been no change of bone density since the previous examination. Reference Information: The T-score is the number of standard deviations above or below the standard which is normal for young adults at their peak bone mineral density. The World Health Organization (WHO) interprets the T-scores as follows: Above -1 Normal bone density Between -1 and -2.5 Osteopenia Equal to / or below -2.5 Osteoporosis As a practical clinical guideline, osteopenia may be graded as follows: Mild -1 through -1.5 Moderate -1.6 through -2.0 Severe -2.1 through -2.4 The Z-score is the number of standard deviations above or below age-matched controls. A Z-score of less than -1.5 would be considered abnormal. References: 1. NIH Osteoporosis and Related Bone Diseases www osteo.org 2. International Society for Clinical Densitometry www iscd.org 3. National Osteoporosis Foundation www nof.org Electronically Signed: Deandre Ricks MD at 23:44 EST ,
== END | disposition home or self-care (01) ==
PROVIDERS: PCP Internal Medicine; Referring Provider Internal Medicine; Visit Provider Internal Medicine
DX: Z13.820 Encounter for screening for osteoporosis (principal); Z78.0 Asymptomatic menopausal state; Z12.31 Encounter for screening mammogram for malignant neoplasm of breast
CPT/HCPCS: 77063; 77067; 77080

== ENCOUNTER → 2025-03-24 | Outpatient (CLI) | payer BC, SELFPAY ==
[2025-03-24 09:05] LABS: AST(SGOT) 18 U/L (<=31); Alanine Aminotransfer ALT/SGPT 16 U/L (<=34); Albumin, Serum 4.5 g/dL (3.4-4.8); Alkaline Phosphatase 79 U/L (35-104); Bilirubin, Direct 0.14 mg/dL (0.00-0.30); Cholesterol 170 mg/dL (<=200); Globulin 2.9 g/dL (2.2-4.2); High Density Lipoprotein 50 mg/dL; Low Density Lipoprotein Calc. 98 mg/dL; Protein, Total 7.4 g/dL (5.9-8.4); Total Bilirubin 0.32 mg/dL (0.00-1.30); Triglycerides 111 mg/dL; Very Low Density Lipoprotein 22 mg/dL (5-40); cholesterol:hdl ratio screen 3.42
== END | disposition home or self-care (01) ==
LOC: LAB 07:41
PROVIDERS: PCP Internal Medicine; Referring Provider Nurse Practitioner Family; Visit Provider Nurse Practitioner Family
DX: E78.00 Pure hypercholesterolemia, unspecified (principal)
CPT/HCPCS: 36415; 80061; 80076

== ENCOUNTER → 2025-04-26 | Outpatient (CLI) | payer BC, SELFPAY ==
[2025-04-26 15:07] LABS: Hematocrit 38.2 % (37-47); Hemoglobin 12.6 g/dL (12.0-15.0); Immature Granulocytes Count 0.070 X10^3/uL (0.0-0.0); Mean Corp Hgb Conc 33.0 g/dL (32-36); Mean Corpuscular Volume 90.7 fL (81-99); Mean Platelet Vol. 10.0 fl (6.2-12.0); NRBC Flagged by Analyzer 0 % (0-5); Platelet Count 521 K/mm3 (150-450); RBC Distribution Width CV 12.4 % (11.6-14.6); RBC Distribution Width SD 40.5 fl (35.1-43.9); Red Blood Count 4.21 M/mm3 (4.2-5.4); White Blood Count 10.9 K/mm3 (4.4-11.0)
[2025-04-26 15:20] LABS: Anion Gap 11 (5-15); BUN 18 mg/dL (4-19); BUN/Creat Ratio 21.2 RATIO (10-20); Calcium,Total 9.8 mg/dL (7.6-11.0); Carbon Dioxide 26.5 mmol/L (21.0-32.0); Chloride 102 mmol/L (98-108); Glucose 97 mg/dL (70-99); Magnesium 2.5 mg/dL (1.5-2.2); Potassium 3.7 mmol/L (3.3-5.1); Pro- Brain NATRIURETIC PEPTIDE < 36 pg/mL (<=900)
--- OUTSIDE RECORDS SUMMARY | 2025-04-26 22:59 | XMS RPT_ITS | CCD ---
Author Organization [facility] Providers Care [employer] H[employer] Name Role Phone Dr. Yennifer Johnson Primary Care Provider [phone] Dr. Yennifer Johnson Attending Provider [phone] Dr. Yennifer Johnson Referring Provider [phone] Alex ENGINE BUILDER, ENGINE BUILDER-C Karlie Attending Provider Dr. Cyrus Lopez Attending Provider [phone] ELOISE Amaya Attending Provider UnavailDr. Yennifer Pedroza Primary Care Provider [phone]) Dr. Yennifer Johnson Referring Provider [phone] GINO Johnson NP Attending Provider Dr. Cyrus Lopez Attending Provider [phone] Dr. Yennifer Johnson Attending Provider [phone] ELOISE Amaya Attending Provider UnavailMD Nate Young Attending Provider [phone] Dr. Imtiaz Mccracken Attending Provider Dr. Yennifer Johnson Primary Care Provider [phone]) Dr. Yennifer Johnson Referring Provider [phone] Dr. Yennifer Johnson Primary Care Provider [phone]) Dr. Yennifer Johnson Referring Provider [phone] MD Nate Rubio Attending Provider [phone] MD Nate Rubio Referring Provider [phone] MD Nate Rubio Other Provider [phone] Yennifer Johnson Primary Care Provider [phone] Dr. Yennifer Johnson Referring Provider [phone] MD Nate Rubio Attending Provider [phone] Dr. Yennifer Johnson Primary Care Provider [phone] Dr. Yennifer Johnson Referring Provider [phone] Alex ENGINE BUILDER, ENGINE BUILDER-C Karlie Attending Provider Dr. Yennifer Johnson Attending Provider [phone] Pb NAVAS PA Sarabjit Nelson Attending Provider Dr. Yennifer Johnson Primary Care Provider [phone]) Dr. Yennifer Johnson Referring Provider [phone] Alex MAYER, ENGINE BUILDER-C Karlie Attending Provider Dr. Yennifer Johnson Primary Care Provider [phone] Dr. Yennifer Johnson Attending Provider [phone] Dr. Yennifer Johnson Referring Provider [phone] Pb NAVAS, PA Sarabjit Nelson Attending Provider Alex MAYER, ENGINE BUILDER-C Karlie Attending Provider Dr. Salazar Sim Attending Provider [phone] Alex MAYER, ENGINE BUILDER-C Karlie Referring Provider Dr. Imtiaz Mccracken Attending Provider [phone] Unavailable Primary Care Provider Unavailabl e [facility] Admitting Unavailable [facility] Attending Unavailable Dr. Yennifer Johnson MD Primary Care Provider Larry Taylor Attending Provider [phone] Larry Taylor Referring Provider [phone] Dr. Yennifer Johnson MD Referring Provider [phone] Alex [place] Attending Provider [phone] Alex MAYER-C, Karlie Referring Provider [phone] Oleghe, Efewongbe Attending Unavailable Oleghe, Efewongbe Referring Unavailable Oleghe, Efewongbe Primary Care Unavailable Oleghe, Efewongbe Referring Unavailable Oleghe, Efewongbe Primary Care Unavailable Oleghe, Efewongbe Attending Unavailable Alex ENGINE BUILDER, Karlie Attending Unavailable Alex ENGINE BUILDER, Karlie Referring Unavailable Oleghe, Efewongbe Primary Care Unavailable Oleghe, Efewongbe Primary Care Unavailable [place] Attending Unavailable [place] Referring Unavailable Oleghe, Efewongbe Attending Unavailable Oleghe, Efewongbe Referring Unavailable Oleghe, Efewongbe Primary Care Unavailable Oleghe, Efewongbe Referring Unavailable Alex ENGINE BUILDER, Karlie Attending Unavailable Oleghe, Efewongbe Primary Care Unavailable Oleghe, Efewongbe Primary Care Unavailable Roof ENGINE BUILDER, Larry Tejeda Attending Unavailable Roof ENGINE BUILDER, Larry H Referring Unavailable Alex ENGINE BUILDER, Karlie Attending Unavailable Alex ENGINE BUILDER, Karlie Referring Unavailable Oleghe, Efewongbe Primary Care Unavailable Allergies Allergy Classification Reported Allergen(s) Allergy Type Date of Onset Reaction(s) Facility (17 sources) Adhesive agent; Translations: [adhesive] Propensity to adverse reactions 2 Other [facility] Comment on above: FROM ELECTRODE ADHES AMANDA (16 sources) Bee pollen Drug Allergy 1 Anaphylaxis [facility] (19 sources) Codeine; Translations: [CODEINE] Drug Allergy 5 Anaphylaxis [facility] (19 sources) HYDROmorphone; Translations: [HYDROMORPHONE] Drug Allergy 9 Anaphylaxis [facility] Comment on above: DIZZINESS, DRY MOUTH (19 sources) Niacin; Translations: [NIACIN] Drug Allergy 7 Hives, Rash, Swelling [facility] (17 sources) oxyCODONE; Translations: [oxycodone HCl] Drug Allergy 1 Anaphylaxis [facility] (17 sources) Propoxyphene; Translations: [propoxyphene napsylate] Drug Allergy 1 Angioedema [facility] (19 sources) Simvastatin; Translations: [SIMVASTATIN] Drug Allergy 1 Other [facility] (16 sources) dog dander Allergy to substance 2 Swelling [facility] (17 sources) Opioids - Morphine Analogues; Translations: [Opioids - Morphine Analogues] Allergy to substance 1 Anaphylaxis [facility] (17 sources) perfume; Translations: [perfume] Allergy to substance 1 swelling [facility] (17 sources) venom-honey bee Allergy to substance 6 Anaphylaxis [facility] (3 sources) atorvastatin; Translations: [ATORVASTATIN CALCIUM] Drug Allergy 6 Other [facility] (3 sources) Grass pollen; Translations: [GRASS POLLEN] Propensity to adverse reactions to drug (disorder) 6 Cough [facility] (3 sources) house dust allergenic extract; Translations: [HOUSE DUST] Drug Allergy 6 Cough [facility] (3 sources) Mold Extract; Translations: [MOLD] Drug Allergy 6 Cough [facility] (3 sources) Morphine; Translations: [MORPHINE] Drug Allergy 9 Cough, Dizziness, Headache, Itching, Other, Palpitations, Shortness of breath [facility] (3 sources) oxyCODONE; Translations: [OXYCODONE] Drug Allergy 4 Cough, Dizziness, Headache, Itching, Other, Rash, Shortness of breath, Swelling [facility] (3 sources) Propoxyphene; Translations: [PROPOXYPHENE] Drug Allergy 4 Shortness of breath, Cough, Dizziness [facility] (3 sources) rosuvastatin; Translations: [ROSUVASTATIN CALCIUM] Drug Allergy 7 Other [facility] Repository (3 sources) wasp venom; Translations: [WASP VENOM] Propensity to adverse reactions to drug (disorder) 6 Anaphylaxis [facility] (2 sources) BEE VENOM PROTEIN (HONEY BEE); Translations: [BEE VENOM PROTEIN (HONEY BEE)] Propensity to adverse reactions to drug (disorder) 6 [facility] (1 source) ALLERGIES NOT ON FILE; Translations: [ALLERGIES NOT ON FILE] Propensity to adverse reactions (disorder) [place] [address] Repository (2 sources) Ketorolac Drug Allergy 4 Nausea [facility] Comment on above: swelling in face (1 source) Bee pollen Drug allergy (disorder) 5 [facility] Repository (1 source) Codeine Drug Allergy 5 [facility] Repository (1 source) HYDROmorphone Drug Allergy 5 [facility] Repository (1 source) Ketorolac Drug Allergy 5 [facility] Repository (1 source) Niacin Drug Allergy 5 [facility] Repository (1 source) Simvastatin Drug Allergy 5 [facility] Repository (1 source) venom-honey bee Drug allergy (disorder) 5 [facility] Repository (1 source) dog dander Drug allergy (disorder) 5 [facility] Repository Medications Current Medications Medication Drug Class(es) Dates Sig (Normalized) Sig (Original) acetaminophen 500 mg oral tablet (3 sources) Start: 04-04-2024 End: 04-19-2024 take 2 tablets by mouth every six hours for pain acetaminophen (Tylenol) 500 mg tablet Indications: Arthritis of left knee Take 2 tablets (1,000 mg) by mouth every 6 hours if needed for mild pain (1 - 3) for up to 15 days. 120 tablet 04/04/2024 04/19/2024 Active Start: 04-03-2024 take 1 tablet by norma th every six hours 1,000 mg, oral, Every 6 hours, First dose on Wed04/03/24 at 1300, Phase II/On Unit, If ordered PRN for pain, nurse is permitted to administer this medication for higher pain scores based on patient preference? Yes Start: 04-03-2024 End: 04-03-2024 take 650 mg by mouth once as needed for pain 650 mg, oral, Once, On Wed04/03/24 at 0645, For 1 dose, Preprocedure, If ordered PRN for pain, nurse is permitted to administer this medication for higher pain scores based on patient preference? Yes apixaban 5 mg oral tablet (20 sources) Factor Xa Inhibitor Start: 04-04-2024 End: 05-04-2024 take 1 tablet by mouth twice daily apixaban (Eliquis) 2.5 mg tablet Indications: Arthritis of left knee Take 1 tablet (2.5 mg) by mouth 2 times a day. 04/04/2024 05/04/2024 Active Start: 04-03-2024 take 2.5 mg by mouth every twelve hours 2.5 mg, oral, Every 12 hours scheduled, First dose on Wed04/03/24 at 1800, Phase II/On Unit Start: 05-31-2018 End: 11-06-2024 take 1 tablet by mouth twice daily Apixaban (Eliquis) 5 mg tablet Discontinued 5 mg PO TWICE A DAY 180 November 08, 2023 10:00am November 06, 2024 9:24am cefuroxime 500 mg oral tablet (2 sources) Cephalosporin Antibacterial Start: 04-04-2024 End: 04-09-2024 take 1 tablet by mouth twice daily cefuroxime (Ceftin) 500 mg tablet Indications: Urinary Tract Infection Take 1 tablet (500 mg) by mouth 2 times a day 10 tablet 04/04/2024 04/09/2024 Active disability placard (16 sources) Start: 11-13-2020 disability misael card Active 0 .ROUTE .MEDSUPPLY 1 0 November 13, 2020 1:00am Impaired physical mobility As directed, Length of time: 5 years Start: 11-13-2020 disability misael card Active 0 .ROUTE .MEDSUPPLY November 13, 2020 12:00am As directed, Length of time: 5 years Start: 11-13-2020 disability misael card Active 0 .ROUTE .MEDSUPPLY November 13, 2020 1:00am As directed, Length of time: 5 years docusate sodium 100 mg oral capsule (18 sources) Start: 04-03-2024 End: 04-19-2024 take 1 capsule by mouth twice daily docusate sodium (Colace) 100 mg capsule Indications: Arthritis of left knee Take 1 capsule (100 mg) by mouth 2 times a day for 15 days. 30 capsule 04/04/2024 04/19/2024 Active Start: 07-28-2019 End: 12-21-2019 take 1 capsule by mouth twice daily Docusate Sodium 100 MG capsule Discontinued 100 mg PO TWICE A DAY 0 July 28, 2019 12:00am December 21, 2019 10:12am gemfibrozil 600 mg oral tablet (20 sources) Peroxisome Proliferator Receptor alpha Agonist Start: 08-25-2018 End: 04-26-2025 take 1 tablet by mouth twice daily Gemfibrozil 600 mg tablet Active 0 .ROUTE .COMPLEX 180 April 26, 2025 1:26pm TAKE 1 TABLET BY MOUTH TWICE A DAY Start: 01-31-2018 End: 04-18-2018 take 1 tablet by mouth twice daily Gemfibrozil (Lopid) 600 mg tablet Discontinued 600 mg PO TWICE A DAY 180 3 January 31, 2018 1:22pm April 18, 2018 3:47pm Start: 03-21-2016 End: 01-10-2018 Gemfibrozil 600 MG tablet Discontinued 600 mg NG TWICE DAILY BEFORE MEALS March 21, 2016 12:00am January 10, 2018 1:43pm Start: 03-21-2016 End: 01-10-2018 Gemfibrozil Discontinued 600 MG NG TWICE DAILY BEFORE MEALS March 21, 2016 12:00am January 10, 2018 1:43pm hydroCHLOROthiazide 12.5 mg / losartan potassium 50 mg oral tablet (20 sources) Thiazide Diuretic, Angiotensin 2 Receptor Bull Start: 10-28-2020 End: 11-08-2023 take 1 tablet by mouth once daily Losartan-Hydrochlorothiazide Discontinued 1 TABLET PO DAILY November 02, 2022 10:30am November 08, 2023 11:40am Start: 02-08-2018 End: 04-26-2025 Losartan-Hydrochlorothiazide 50-12.5 mg tablet Active 1 {tbl} PO daily 90 April 26, 2025 1:20pm Start: 03-21-2016 End: 01-10-2018 Losartan-Hydrochlorothiazide 1 TAB tablet Discontinued 1 {tbl} PO DAILY March 21, 2016 12:00am January 10, 2018 1:43pm Start: 03-21-2016 End: 01-10-2018 take 1 tablet by mouth once daily Losartan-Hydrochlorothiazide Discontinue d 1 TABLET PO DAILY March 21, 2016 12:00am January 10, 2018 1:43pm ibuprofen 600 mg oral tablet (20 sources) Nonsteroidal Anti-inflammatory Drug Start: 04-04-2024 End: 04-09-2024 take 1 tablet by mouth every six hours for pain ibuprofen 600 mg tablet Indications: Arthritis of left knee Take 1 tablet (600 mg) by mouth every 6 hours if needed for mild pain (1 - 3) for up to 5 days. 20 tablet 04/04/2024 04/09/2024 Active Start: 07-28-2019 End: 12-16-2023 take 1 tablet by mouth every six hours as needed for pain Ibuprofen 600 MG tablet Discontinued 600 mg PO EVERY 6 HOURS NEEDED as needed for Pain Score -08/03 60 0 July 28, 2019 12:00am December 16, 2023 2:15pm Start: 03-21-2016 End: 10-01-2017 take 1 tablet by mouth four times daily as needed for pain Ibuprofen 600 MG tablet Discontinued 600 mg PO 4 TIMES DAILY as needed for Pain 20 0 March 21, 2016 10:41pm October 01, 2017 10:15pm 1 ml ketorolac tromethamine 30 mg/ml injection (1 source) Nonsteroidal Anti-inflammatory Drug, Cyclooxygenase Inhibitor Start: 04-03-2024 End: 04-08-2024 take 15 mg intravenously every six hours as needed 15 mg, intravenous, Every 6 hours PRN, pain breakthrough, Starting on Wed04/03/24 at 1212, For 5 days, Phase II/On Unit Multivitamin (Daily Multi-Vitamin) tablet (4 sources) Start: 12-16-2023 Multivitamin (Daily Multi-Vitamin) tablet Active 1 {tbl} PO DAILY December 16, 2023 1:00am Start: 12-16-2023 take 1 tablet by norma th once daily Multivitamin (Daily Multi-Vitamin) tablet Active 1 TABLET PO DAILY December 16, 2023 1:00am Start: 12-16-2023 take 1 tablet by norma th once daily Multivitamin (Daily Multi-Vitamin) tablet Active 1 TABLET PO DAILY December 16, 2023 12:00am multivitamin 1 tablet (1 source) Start: 04-03-2024 take 1 tablet by mouth once daily 1 tablet, oral, Daily, First dose on Wed04/03/24 at 1230, Phase II/On Unit omeprazole 40 mg delayed release oral capsule (6 sources) Proton Pump Inhibitor Start: 06-09-2022 take 40 mg by mouth once daily Omeprazole Active 40 MG PO DAILY June 09, 2022 12:00am 2 ml ondansetron 2 mg/ml injection (1 source) Serotonin-3 Receptor Antagonist Start: 04-03-2024 take 4 mg intravenously every eight hours as needed oxygen (O2) therapy (1 source) Start: 04-03-2024 2 L/min, inhalation, Continuous, Starting on Wed04/03/24 at 1230, Phase II/On Unit, Titrate supplemental oxygen to maintain oxygen saturation greater than or equal to 92%., Device: Nasal Cannula, Rate in liters per minute: 2 LPM, Keep O2 Sat Above: 92% polyethylene glycol 3350 15357 mg powder for oral solution (1 source) Osmotic Laxative Start: 04-03-2024 17 g, oral, Daily, First dose on Wed04/03/24 at 1230, Phase II/On Unit Completed/Discontinued Medications Medication Drug Class(es) Dates Sig (Normalized) Sig (Original) albuterol 5 mg/ml inhalation solution (20 sources) beta2-Adrenergic Agonist Start: 08-27-2021 End: 08-06-2022 take 2.5 mg by inhalation every six hours as needed for wheezing Albuterol Sulfate 2.5 mg/0.5 mL solution for nebulization Discontinued 2.5 mg INHALATION EVERY 6 HOURS as needed for Sob &/Or Wheezing 90 3 August 27, 2021 11:51am August 06, 2022 9:22am Start: 07-28-2019 End: 06-20-2021 take 2.5 mg by inhalation every six hours Albuterol Sulfate 2.5 MG/3 ML solution for nebulization Discontinued 2.5 mg INHALATION EVERY 6 HOURS WHILE AWAKE 0 July 28, 2019 12:00am June 20, 2021 2:19pm Start: 04-20-2019 End: 08-27-2021 Albuterol Sulfate 2.5 mg/0.5 mL solution for nebulization Discontinued 2.5 mg INHALATION .PRN as needed for Sob &/Or Wheezing 30 8 January 10, 2020 5:18pm August 27, 2021 11:51am Start: 04-20-2019 End: 08-06-2022 Albuterol Sulfate (Proventil Hfa) 90 mcg/actuation HFA aerosol inhaler Discontinued 2 NMA INHALATION NEEDED as needed for Sob &/Or Wheezing 8.5 3 January 10, 2020 5:18pm August 06, 2022 9:22am Start: 04-20-2019 End: 08-06-2022 Albuterol Sulfate (Proventil Hfa) 90 mcg/actuation HFA aerosol inhaler Discontinued 2 PUFF INHALATION NEEDED 8.5 January 10, 2020 5:18pm August 06, 2022 9:22am Start: 04-18-2018 End: 05-24-2018 Albuterol Sulfate (Proair Hf a) 90 mcg/actuation HFA aerosol inhaler Discontinued 2 NMA INHALATION Q4H as needed for shortness of breath or wheezing 18 April 18, 2018 3:47pm May 24, 2018 2:39pm Start: 04-18-2018 End: 05-24-2018 take 1 puff(s) by inhalation every four hours Albuterol Sulfate (Proair Hfa) 90 mcg/actuation HFA aerosol inhaler Discontinued 2 PUFF INHALATION Q4H April 18, 2018 3:47pm May 24, 2018 2:39pm Start: 04-18-2018 End: 04-18-2018 Albuterol Sulfate (Proair Hf a) 90 mcg/actuation HFA aerosol inhaler Discontinued 2 NMA INHALATION Q4H as needed for shortness of breath or wheezing 18 April 18, 2018 12:00am April 18, 2018 3:48pm Start: 04-18-2018 End: 04-18-2018 take 1 puff(s) by inhalation every four hours Albuterol Sulfate (Proair Hfa) 90 mcg/actuation HFA aerosol inhaler Discontinued 2 PUFF INHALATION Q4H April 18, 2018 12:00am April 18, 2018 3:48pm Start: 01-14-2018 End: 01-14-2018 Albuterol Sulfate (Proair Hf a) 90 mcg/actuation HFA aerosol inhaler Discontinued 2 NMA INHALATION Q4H as needed for shortness of breath or wheezing January 14, 2018 12:00am January 14, 2018 12:22pm Start: 01-14-2018 End: 01-14-2018 take 1 puff(s) by inhalation every four hours Albuterol Sulfate (Proair Hfa) 90 mcg/actuation HFA aerosol inhaler Discontinued 2 PUFF INHALATION Q4H January 14, 2018 12:00am January 14, 2018 12:22pm Start: 09-30-2017 End: 05-24-2018 take 2.5 mg by inhalation every four hours as needed for wheezing Albuterol Sulfate 2.5 mg /3 mL (0.083 %) solution for nebulization Discontinued 2.5 mg INHALATION Q4H as needed for shortness of breath or wheezing September 30, 2017 1:00am May 24, 2018 2:38pm Start: 01-28-2017 End: 09-30-2017 Albuterol Sulfate 6.7 GM HFA aerosol inhaler Discontinued 6.7 g IH NEEDED as needed for Shortness Of Breath January 28, 2017 12:00am September 30, 2017 12:13pm Start: 01-28-2017 End: 09-30-2017 Albuterol Sulfate Discontinu ed 6.7 GM IH NEEDED January 28, 2017 12:00am September 30, 2017 12:13pm amLODIPine 10 mg / valsartan 320 mg oral tablet (5 sources) Dihydropyridine Calcium Channel Bull, Angiotensin 2 Receptor Bull Start: 07-12-2023 End: 07-12-2023 Amlodipine-Valsartan 10-320 mg tablet Discontinued 1 {tbl} PO DAILY July 12, 2023 12:00am July 12, 2023 9:18am Start: 07-12-2023 End: 07-12-2023 take 1 tablet by mouth once daily Amlodipine-Valsartan Discontinued 1 TABLET PO DAILY July 12, 2023 12:00am July 12, 2023 9:18am amoxicillin 875 mg / clavulanate 125 mg oral tablet (16 sources) Penicillin-class Antibacterial Start: 08-27-2021 End: 09-02-2021 Amoxicillin-Pot Clavulanate 875-125 mg tablet Discontinued 1 {tbl} PO Q12H 14 August 27, 2021 12:00am September 02, 2021 3:31pm Start: 08-27-2021 End: 09-02-2021 take 1 tablet by mouth every twelve hours Amoxicillin-Pot Clavulanate Discontinued 1 TABLET PO Q12H August 27, 2021 12:00am September 02, 2021 3:31pm aspirin 81 mg delayed release oral tablet (20 sources) Platelet Aggregation Inhibitor, Nonsteroidal Anti-inflammatory Drug Start: 05-24-2018 End: 05-31-2018 take 1 tablet by mouth once daily Aspirin (Adult Aspirin Regimen) 81 mg tablet,delayed release (DR/EC) Discontinued 81 mg PO daily May 24, 2018 12:00am May 31, 2018 3:08pm Start: 03-21-2016 End: 01-10-2018 take 1 tablet by mouth once daily Aspirin 81 MG tablet,chewable Discontinued 81 mg PO DAILY@0800 March 21, 2016 12:00am January 10, 2018 1:42pm azithromycin 250 mg oral tablet (16 sources) Macrolide Antimicrobial Start: 01-10-2018 End: 01-15-2018 Azithromycin 250 mg tablet Discontinued 250 mg PO daily 6 5 0 January 10, 2018 12:00am January 14, 2018 12:00am January 15, 2018 12:06am Unspecified asthma with (acute) exacerbation Acute bronchitis, unspecified Take 2 tabs once on day one then take one tablet once daily for the next 4 days. baclofen 10 mg oral tablet (20 sources) gamma-Aminobutyric Acid-ergic Agonist Start: 08-19-2020 End: 08-06-2022 take 1 tablet by mouth twice daily as needed for pain Baclofen 10 mg tablet Discontinued 10 mg PO TWICE A DAY as needed for Pain June 20, 2021 2:18pm August 06, 2022 9:22am benzonatate 200 mg oral capsule (5 sources) Non-narcotic Antitussive Start: 10-06-2023 End: 12-16-2023 take 1 capsule by mouth three times daily as needed for cough Benzonatate 200 mg capsule Discontinued 200 mg PO THREE TIMES A DAY as needed for cough 14 0 October 06, 2023 1:00am December 16, 2023 2:15pm budesonide 0.25 mg/ml inhalation suspension (16 sources) Corticosteroid Start: 07-28-2019 End: 06-20-2021 take 0.5 mg by inhalation every twelve hours Budesonide 0.5 MG/2 ML suspension for nebulization Discontinued 0.5 mg INHALATION EVERY 12 HOURS 0 July 28, 2019 12:00am June 20, 2021 2:19pm Budesonide-Formote rol (20 sources) Corticosteroid, beta2-Adrenergic Agonist Start: 07-18-2019 End: 08-06-2022 Budesonide-Formot alfonso 1 INHALER inhaler Discontinued 2 NMA INHALATION TWICE A DAY July 18, 2019 12:00am August 06, 2022 9:22am Start: 07-18-2019 End: 08-06-2022 take 1 puff(s) by inhalation twice daily Budesonide-Formoterol Discontinued 2 PUFF INHALATION TWICE A DAY July 18, 2019 12:00am August 06, 2022 9:22am Start: 07-18-2019 End: 08-06-2022 take 1 puff(s) by inhalation twice daily Budesonide-Formoterol Discontinued 2 PUFF INHALATION TWICE A DAY July 17, 2019 11:00pm August 06, 2022 8:22am Start: 07-18-2019 take 1 puff(s) by in halation twice daily Budesonide-Formoterol Active 2 PUFF INHALATION TWICE A DAY July 18, 2019 12:00am Start: 08-25-2018 End: 01-10-2019 Budesonide-Formoterol (Symbi cameron) 160-4.5 mcg/actuation HFA aerosol inhaler Discontinued 2 NMA INHALATION TWICE A DAY as needed August 25, 2018 12:00am January 10, 2019 10:35am Start: 08-25-2018 End: 01-10-2019 take 1 puff(s) by inhalation twice daily Budesonide-Formoterol (Symbicort) 160-4.5 mcg/actuation HFA aerosol inhaler Discontinued 2 PUFF INHALATION TWICE A DAY August 25, 2018 12:00am January 10, 2019 10:35am Start: 04-18-2018 End: 05-24-2018 Budesonide-Formoterol (Symbi cameron) 160-4.5 mcg/actuation HFA aerosol inhaler Discontinued 2 NMA INHALATION .QD April 18, 2018 3:46pm May 24, 2018 2:39pm Start: 04-18-2018 End: 05-24-2018 take 1 puff(s) by inhalation once daily Budesonide-Formoterol (Symbicort) 160-4.5 mcg/actuation HFA aerosol inhaler Discontinued 2 PUFF INHALATION .QD April 18, 2018 3:46pm May 24, 2018 2:39pm Start: 10-15-2017 End: 04-18-2018 Budesonide-Formoterol (Symbi cameron) 160-4.5 mcg/actuation HFA aerosol inhaler Discontinued 2 NMA INHALATION TWICE A DAY 1 0 October 15, 2017 1:00am April 18, 2018 3:47pm administer with spacer, rinse mouth after each use Start: 10-15-2017 End: 04-18-2018 take 1 puff(s) by mouth twice daily Budesonide-Formoterol (Symbicort) 160-4.5 mcg/actuation HFA aerosol inhaler Discontinued 2 PUFF INHALATION TWICE A DAY 1 October 15, 2017 1:00am April 18, 2018 3:47pm administer with spacer, rinse mouth after each use Calcium Carbonate / vitamin D3 (10 sources) Start: 08-06-2022 End: 12-16-2023 take 1 tablet by mouth once daily Calcium Carbonate-Vitamin D3 Discontinued 1 TABLET PO DAILY August 06, 2022 12:00am December 16, 2023 2:15pm Start: 08-06-2022 End: 12-16-2023 take 1 tablet by mouth once daily Calcium Carbonate-Vitamin D3 Discontinued 1 TABLET PO DAILY August 05, 2022 11:00pm December 16, 2023 1:15pm Start: 08-06-2022 take 1 tablet by norma once daily Calcium Carbonate-Vitamin D3 Active 1 TABLET PO DAILY August 05, 2022 11:00pm Start: 08-06-2022 take 1 tablet by norma th once daily Calcium Carbonate-Vitamin D3 Active 1 TABLET PO DAILY August 06, 2022 12:00am Start: 08-06-2022 Calcium Carbon ate-Vitamin D3 Active TABLET PO August 06, 2022 12:00am Start: 08-06-2022 Calcium Carbon ate-Vitamin D3 Active TABLET PO August 05, 2022 11:00pm Calcium Carbonate-Vitamin D3 200 mg (500 mg) -400 unit tablet (2 sources) Start: 08-06-2022 End: 12-16-2023 Calcium Carbonate-Vitamin D3 200 mg (500 mg) -400 unit tablet Discontinued 1 {tbl} PO DAILY August 06, 2022 12:00am December 16, 2023 2:15pm calcium chloride 0.0014 meq/ml / potassium chloride 0.004 meq/ml / sodium chloride 0.103 meq/ml / sodium lactate 0.028 meq/ml injectable solution (2 sources) Start: 04-03-2024 End: 04-04-2024 take 125 mL intravenously every hour 125 mL/hr, intravenous, Continuous, Starting on Wed04/03/24 at 1230, For 24 hours, Phase II/On Unit carvedilol 3.125 mg oral tablet (20 sources) alpha-Adrenergic Bull, beta-Adrenergic Bull Start: 03-21-2016 End: 04-18-2018 take 1 tablet by mouth twice daily Carvedilol 3.125 mg tablet Discontinued 3.125 mg PO TWICE A DAY 180 3 January 28, 2018 1:52pm April 18, 2018 3:53pm ceFAZolin 2000 mg injection (1 source) Cephalosporin Antibacterial Start: 04-03-2024 End: 04-04-2024 take 2 g intravenously every eight hours 2 g, intravenous, Administer over 30 Minutes, Every 8 hours, First dose on Wed04/03/24 at 1600, For 2 doses, Phase II/On Unit, Start 8 hours after pre-op dose given. premix bag, Dosing of this medication varies based on severity of illness. Does this patient have sepsis or concern for sepsis (probable or documented infection plus systemic manifestations of infection)? No, Suspected Indication (Select all that apply): Surgical Prophylaxis, Indications: Surgical Prophylaxis celecoxib 200 mg oral capsule (1 source) Nonsteroidal Anti-inflammatory Drug Start: 04-03-2024 End: 04-03-2024 take 1 capsule by mouth once 400 mg, oral, Once, On Wed04/03/24 at 0645, For 1 dose, Preprocedure, Capsules may be opened and sprinkled on a spoonful of cold or room temperature applesauce. cetirizine hydrochloride 10 mg oral capsule (16 sources) Histamine-1 Receptor Antagonist Start: 03-21-2016 End: 01-10-2018 take 1 capsule by mouth once daily Cetirizine 10 MG capsule Discontinued 10 mg PO DAILY March 21, 2016 12:00am January 10, 2018 1:42pm chlorhexidine gluconate 1.2 mg/ml mouthwash (1 source) Start: 03-21-2024 End: 04-04-2024 chlorhexidine (Peridex) 0.12 % solution Indications: Preop testing Use as directed. 473 mL 03/21/2024 04/04/2024 Discontinued (Stop Taking at Discharge) clopidogrel 75 mg oral tablet (16 sources) [id number] Platelet Inhibitor Start: 05-16-2018 End: 05-31-2018 take 1 tablet by mouth once daily Clopidogrel (Plavix) 75 mg tablet Discontinued 75 mg PO daily 30 3 May 16, 2018 12:00am May 31, 2018 3:08pm cyclobenzaprine hydrochloride 10 mg oral tablet (16 sources) Muscle Relaxant Start: 01-28-2017 End: 01-10-2018 take 1 tablet by mouth three times daily as needed for muscle spasms Cyclobenzaprine 10 MG tablet Discontinued 10 mg PO THREE TIMES A DAY as needed for Muscle Spasm 20 0 January 28, 2017 12:00am January 10, 2018 1:42pm dexamethasone 6 mg oral tablet (5 sources) Corticosteroid Start: 10-06-2023 End: 12-16-2023 take 1 tablet by mouth once daily Dexamethasone 6 mg tablet Discontinued 6 mg PO DAILY 5 0 October 06, 2023 1:00am December 16, 2023 2:15pm 24 hr dilTIAZem hydrochloride 240 mg extended release oral capsule (20 sources) Calcium Channel Bull Start: 07-18-2019 End: 11-06-2024 take 1 capsule by mouth once daily Diltiazem Hcl 240 mg capsule,extended release 24hr Discontinued 240 mg PO DAILY 90 3 January 17, 2024 5:39pm November 06, 2024 9:24am Start: 05-26-2018 End: 05-19-2019 take 1 capsule by mouth once daily, then take 1 capsule by mouth every twenty-four hours Diltiazem Hcl (Cartia Xt) 240 mg capsule,extended release 24hr Discontinued 240 mg PO DAILY January 10, 2019 12:00am May 19, 2019 5:01pm Start: 05-12-2018 End: 05-26-2018 take 1 capsule by mouth once daily, then take 1 capsule by mouth every twenty-four hours Diltiazem Hcl (Cardizem Cd) 180 mg capsule,extended release 24hr Discontinued 180 mg PO daily 23 09May 12, 2018 12:00am May 26, 2018 10:23am Start: 04-18-2018 End: 05-12-2018 take 1 capsule by mouth once daily, then take 1 capsule by mouth every twenty-four hours Diltiazem Hcl (Cardizem Cd) 120 mg capsule,extended release 24hr Discontinued 120 mg PO daily 23 09April 18, 2018 3:55pm May 12, 2018 2:10pm [id number] 0.3 ml EPINEPHrine 1 mg/ml auto-injector (20 sources) alpha-Adrenergic Agonist, beta-Adrenergic Agonist, Catecholamine Start: 04-08-2021 End: 08-06-2022 Epinephrine 0.3 mg/0.3 mL auto-injector Discontinued 0.3 mg IM every 5 to 15 minutes as needed for anaphylaxis 2 2 April 08, 2021 12:00am August 06, 2022 9:22am do not exceed 3 doses per episode Start: 03-21-2016 End: 04-08-2021 inject 0.3 mg by intramuscular injection once as needed Epinephrine 0.3 MG syringe Discontinued 0.3 mg IM ONE TIME as needed for Anaphylaxis March 21, 2016 12:00am April 08, 2021 3:39pm ezetimibe 10 mg oral tablet (20 sources) Dietary Cholesterol Absorption Inhibitor Start: 03-21-2016 End: 11-06-2024 take 1 tablet by mouth once daily Ezetimibe 10 mg tablet Discontinued 10 mg PO DAILY 90 3 November 08, 2023 10:06am November 06, 2024 9:24am 1 ml fentaNYL 0.05 mg/ml injection (2 sources) Opioid Agonist Start: 04-03-2024 End: 04-03-2024 25 mcg, intravenous, Every 5 min PRN, pain moderate (4-6), first line, Starting on Wed04/03/24 at 0959, For 6 hours, Recovery (only), Max total of 200 micrograms regardless of dose., If ordered PRN for pain, nurse is permitted to administer this medication for higher pain scores based on patient preference? Yes Start: 04-03-2024 End: 04-03-2024 50 mcg, intravenous, Once, O n Wed04/03/24 at 0745, For 1 dose, Preprocedure, For nerve block flecainide acetate 100 mg oral tablet (20 sources) Antiarrhythmic Start: 08-29-2018 End: 11-29-2024 take 1 tablet by mouth every twelve hours Flecainide 100 mg tablet Discontinued 100 mg PO Q12H 180 3 March 09, 2024 9:19am November 29, 2024 9:12am Fluticasone Furoate-Vilanterol (16 sources) Corticosteroid, beta2-Adrenergic Agonist Start: 09-30-2017 End: 01-10-2018 Fluticasone Furoate-Vilanterol (Breo Ellipta) 200-25 mcg/dose blister with device Discontinued 1 NMA INHALATION daily September 30, 2017 1:00am January 10, 2018 1:43pm Start: 09-30-2017 End: 01-10-2018 Fluticasone Furoate-Vilanter ol (Breo Ellipta) 200-25 mcg/dose blister with device Discontinued 1 INH INHALATION daily September 30, 2017 12:00am January 10, 2018 12:43pm Start: 09-30-2017 End: 01-10-2018 Fluticasone Furoate-Vilanter ol (Breo Ellipta) 200-25 mcg/dose blister with device Discontinued 1 INH INHALATION daily September 30, 2017 1:00am January 10, 2018 1:43pm 120 actuat formoterol fumarate 0.005 mg/actuat / mometasone furoate 0.2 mg/actuat metered dose inhaler (20 sources) Corticosteroid, beta2-Adrenergic Agonist Start: 10-01-2017 End: 01-10-2018 Mometasone-Formoterol 8.8 GM HFA aerosol inhaler Discontinued 2 NMA INHALATION TWICE A DAY October 01, 2017 10:09pm January 10, 2018 1:43pm Start: 10-01-2017 End: 01-10-2018 take 1 puff(s) by inhalation twice daily Mometasone-Formoterol Discontinued 2 PUFF INHALATION TWICE A DAY October 01, 2017 10:09pm January 10, 2018 1:43pm Start: 03-21-2016 End: 10-01-2017 Mometasone-Formoterol 8.8 GM HFA aerosol inhaler Discontinued 8.8 g IH TWICE A DAY March 21, 2016 12:00am October 01, 2017 10:16pm furosemide 20 mg oral tablet (16 sources) Loop Diuretic Start: 01-10-2018 End: 04-18-2018 take 1 tablet by mouth once Furosemide (Lasix) 20 mg tablet Discontinued 20 mg PO ONCE January 10, 2018 12:00am April 18, 2018 3:48pm hydroCHLOROthiazide 12.5 mg oral capsule (16 sources) Thiazide Diuretic Start: 07-28-2019 End: 12-21-2019 take 1 capsule by mouth once daily Hydrochlorothiazide 12.5 MG capsule Discontinued 12.5 mg PO DAILY 0 July 28, 2019 12:00am December 21, 2019 10:13am LORazepam 0.5 mg oral tablet (15 sources) Benzodiazepine Start: 06-09-2022 End: 08-06-2022 take 1 tablet by mouth once daily as needed for anxiety Lorazepam 0.5 mg tablet Discontinued 0.5 mg PO DAILY as needed for anxiety 20 June 09, 2022 12:00am August 06, 2022 9:22am Anxiety and depression Anxiety disorder, unspecified Depression, unspecified losartan potassium 50 mg oral tablet (16 sources) Angiotensin 2 Receptor Bull Start: 07-28-2019 End: 12-21-2019 take 1 tablet by mouth once daily Losartan 50 MG tablet Discontinued 50 mg PO DAILY 0 July 28, 2019 12:00am December 21, 2019 10:13am methylPREDNISolone 4 mg oral tablet (20 sources) Corticosteroid Start: 08-19-2020 End: 01-06-2021 take 1 tablet by mouth once Methylprednisolone (Medrol (Devan)) 4 mg tablets,dose pack Discontinued 0 PO per package directions 21 0 September 17, 2020 2:10pm January 06, 2021 2:54pm PO PER PKG DIR Start: 01-10-2018 End: 01-15-2018 take 1 tablet by mouth once Methylprednisolone (Medrol (Devan)) 4 mg tablets,dose pack Discontinued 4 mg PO per package directions 21 5 0 January 10, 2018 12:00am January 14, 2018 12:00am January 15, 2018 12:06am 5 ml midazolam 1 mg/ml injection (1 source) Benzodiazepine Start: 04-03-2024 End: 04-03-2024 2 mg, intravenous, Once, On Wed04/03/24 at 0745, For 1 dose, Preprocedure, For Nerve block Multivitamin,Tx-I [place]-Minerals (Complete Multivitamin) tablet (2 sources) Start: 09-30-2017 End: 01-10-2018 Multivitamin,Tx-Iron- Minerals (Complete Multivitamin) tablet Discontinued 1 {tbl} PO daily September 30, 2017 1:00am January 10, 2018 1:43pm multivitamin,tx-i duncan-minerals tablet (14 sources) Start: 09-30-2017 End: 01-10-2018 take 1 tablet by mouth once daily multivitamin,tx-iron- minerals tablet Discontinued 1 TABLET PO daily September 30, 2017 12:00am January 10, 2018 12:43pm Start: 09-30-2017 End: 01-10-2018 take 1 tablet by mouth once daily multivitamin,su-vcik-zrrpfumy tablet Discontinued 1 TABLET PO daily September 30, 2017 1:00am January 10, 2018 1:43pm [place]-3 Fatty Acids (14 sources) Start: 01-10-2018 End: 05-24-2018 take 1000 mg by mouth once daily [place]-3 Fatty Acids Discontinued 1000 MG PO daily January 09, 2018 11:00pm May 24, 2018 1:40pm Start: 01-10-2018 End: 05-24-2018 take 1000 mg by mouth once daily [place]-3 Fatty Acids Discontinued 1000 MG PO daily January 10, 2018 12:00am May 24, 2018 2:40pm [place]-3 Fatty Acids 1,000 mg capsule (2 sources) Start: 01-10-2018 End: 05-24-2018 take 1 capsule by mouth once daily [place]-3 Fatty Acids 1,000 mg capsule Discontinued 1000 mg PO daily January 10, 2018 12:00am May 24, 2018 2:40pm polysaccharide iron complex 150 mg oral capsule (16 sources) Start: 07-28-2019 End: 12-21-2019 take 1 capsule by mouth once daily at mealtime Polysaccharide Iron Complex 150 MG capsule Discontinued 150 mg PO DAILY WITH MEALS 30 July 28, 2019 12:00am December 21, 2019 10:14am potassium chloride 10 meq extended release oral tablet (16 sources) Start: 09-30-2017 End: 01-10-2018 take 1 tablet by mouth once daily Potassium Chloride 10 mEq tablet extended release Discontinued 10 meq PO daily September 30, 2017 1:00am January 10, 2018 1:43pm povidone-iodine 50 mg/ml topical solution (1 source) Antiseptic Start: 04-03-2024 End: 04-03-2024 apply 1 dose topically once Topical, Once, On Wed04/03/24 at 0645, For 1 dose, Preprocedure predniSONE 20 mg oral tablet (20 sources) Start: 08-27-2021 End: 09-02-2021 take 2 tablets by mouth once daily Prednisone 20 mg tablet Discontinued 40 mg PO DAILY August 27, 2021 12:00am September 02, 2021 3:32pm Start: 08-27-2021 End: 09-02-2021 take 40 mg by mouth once daily Prednisone Discontinued 40 MG PO DAILY August 27, 2021 12:00am September 02, 2021 3:32pm Start: 09-30-2017 End: 01-10-2018 Prednisone 50 mg tablet Disc ontinued 50 mg PO As Directed September 30, 2017 1:00am January 10, 2018 1:43pm pregabalin 75 mg oral capsule (1 source) Start: 04-03-2024 End: 04-03-2024 take 75 mg by mouth once 75 mg, oral, Once, On Wed04/03/24 at 0645, For 1 dose, Preprocedure promethazine hydrochloride 25 mg oral tablet (16 sources) Phenothiazine Start: 07-28-2019 End: 12-21-2019 take 1 tablet by mouth four times daily as needed for nausea Promethazine 25 MG tablet Discontinued 25 mg PO 4 TIMES DAILY NEEDED as needed for Nausea 30 July 28, 2019 2:21pm December 21, 2019 10:14am rOPINIRole 0.25 mg oral tablet (20 sources) Nonergot Dopamine Agonist Start: 12-26-2019 End: 08-06-2022 take 1 tablet by mouth at bedtime Ropinirole (Requip) 0.25 mg tablet Discontinued 0.25 mg PO AT BEDTIME 90 March 19, 2020 9:33am August 06, 2022 9:21am administer 1-3 hours before bedtime sertraline 50 mg oral tablet (20 sources) Serotonin Reuptake Inhibitor Start: 06-09-2022 End: 08-06-2022 take 1 tablet by mouth once daily Sertraline 50 mg tablet Discontinued 50 mg PO DAILY 30 July 02, 2022 1:17pm August 06, 2022 9:22am Vitamin B Complex (B Complex-Vitamin B12) tablet (14 sources) Start: 06-24-2022 End: 12-16-2023 Vitamin B Complex (B Complex-Vitamin B12) tablet Discontinued 1 {tbl} PO DAILY June 24, 2022 12:00am December 16, 2023 2:15pm Start: 06-24-2022 End: 12-16-2023 take 1 tablet by mouth once daily Vitamin B Complex (B Complex-Vitamin B12) tablet Discontinued 1 TABLET PO DAILY June 24, 2022 12:00am December 16, 2023 2:15pm Start: 06-24-2022 End: 12-16-2023 take 1 tablet by mouth once daily Vitamin B Complex (B Complex-Vitamin B12) tablet Discontinued 1 TABLET PO DAILY June 23, 2022 11:00pm December 16, 2023 1:15pm Start: 06-24-2022 take 1 tablet by norma th once daily Vitamin B Complex (B Complex-Vitamin B12) tablet Active 1 TABLET PO DAILY June 23, 2022 11:00pm Start: 06-24-2022 take 1 tablet by norma th once daily Vitamin B Complex (B Complex-Vitamin B12) tablet Active 1 TABLET PO DAILY June 24, 2022 12:00am Problems Active Problems Problem Classification Problem Date Documented Da te Episodic/Chronic Acute bronchitis (16 sources) Acute bronchitis; Translations: [Acute bronchitis, unspecified] 04-17-2018 Episodic Anxiety disorders (20 sources) Mixed anxiety and depressive disorder; Translations: [Anxiety disorder, unspecified] Onset: 4 Chronic Asthma (20 sources) Exacerbation of asthma; Translations: [Unspecified asthma with (acute) exacerbation] Onset: 6 08-27-2021 Chronic Cardiac dysrhythmias (20 sources) Atrial fibrillation; Translations: [Unspecified atrial fibrillation] Onset: 4 Chronic Comment on above: The patient is most recent event recorder for 30 days showed no evidence of atrial fibrillation. The patient is usually aware when she is atrial fibs and she has not felt any. She continues to have very short palpitations and on her recent event recorder these were consistent with rare PVCs and occasional PACs. She also felt sinus tachycardia as palpitations. She continues on combination of diltiazem and flecainide. Her EKG today in office shows normal QT interval heart rate 74 in sinus rhythm with nonspecific QRS widening. She does have some minor T wave changes anteriorly. Cardiac dysrhythmias (20 sources) Palpitations; Translations: [Palpitations] Onset: Episodic Comment on above: Patient's palpitatio ns coincide with benign PACs and PVCs on her recent 30-day event recorder. Complications of surgical procedures or medical care (16 sources) Non-healing surgical wound; Translations: [Other complications of procedures, not elsewhere classified, initial encounter] 09-03-2019 Episodic Comment on above: at [facility] bilateral breasts Conditions associated with dizziness or vertigo (20 sources) Dizziness; Translations: [Dizziness and giddiness] 08-24-2018 Episodic Disorders of lipid metabolism (20 sources) Mixed hyperlipidemia; Translations: [Mixed hyperlipidemia] Onset: 4 Chronic Comment on above: Patient's lipids Jun total cholesterol 153, HDL 53, LDL 84, triglycerides 80. This is on ezetimibe and gemfibrozil. E Codes: Fall (3 sources) Unspecified fall, initial encounter; Translations: [Unspecified fall] Episodic Esophageal disorders (20 sources) Gastroesophageal reflux disease; Translations: [Gastro-esophageal reflux disease without esophagitis] Chronic Essential hypertension (20 sources) Essential hypertension; Translations: [Essential (primary) hypertension] Onset: 4 Chronic Heart valve disorders (20 sources) Aortic incompetence, non-rheumatic ; Translations: [Nonrheumatic aortic (valve) insufficiency] Chronic Comment on above: LEAKY AORTIC VALVE Joint disorders and dislocations; trauma-related (20 sources) Tear of medial meniscus of knee; Translations: [Other tear of medial meniscus, current injury, left knee, initial encounter] 02-04-2023 Episodic Malaise and fatigue (19 sources) Fatigue; Translations: [Other fatigue] Episodic Nonmalignant breast conditions (20 sources) Hypertrophy of breast; Translations: [Hypertrophy of breast] 07-24-2019 Episodic Nonspecific chest pain (20 sources) Chest pain; Translations: [Chest pain, unspecified] Episodic Osteoarthritis (20 sources) Osteoarthritis of left knee joint; Translations: [Unilateral primary osteoarthritis, left knee] Onset: Chronic Other aftercare (2 sources) Follow-up status; Translations: [Encounter for other orthopedic aftercare] 04-11-2024 Episodic Other and ill-defined heart disease (16 sources) Left ventricular hypertrophy; Translations: [Cardiomegaly] 10-01-2017 Chronic Other circulatory disease (16 sources) H/O: atrial fibrillation; Translations: [Personal history of other diseases of the circulatory system] 05-12-2022 Episodic Other connective tissue disease (3 sources) Other specified soft tissue disorders; Translations: [Other disorders of soft tissue] Episodic Other connective tissue disease (10 sources) Synovial cyst of left popliteal space; Translations: [Synovial cyst of popliteal space [Poe], left knee] 08-06-2022 Episodic Other connective tissue disease (8 sources) Synovial cyst of popliteal space [Poe], left knee; Translations: [Synovial cyst of popliteal space] Episodic Other gastrointestinal disorders (3 sources) Alteration in bowel elimination; Translations: [Change in bowel habit] Episodic Other gastrointestinal disorders (15 sources) Incontinence of feces; Translations: [Full incontinence of feces] 06-09-2022 Episodic Other gastrointestinal disorders (3 sources) Change in bowel habit; Translations: [Other symptoms involving digestive system] Episodic Other gastrointestinal disorders (3 sources) Full incontinence of feces; Translations: [Full incontinence of feces] Episodic Other gastrointestinal disorders (12 sources) Altered bowel function; Translations: [Change in bowel habit] 06-09-2022 Episodic Other inflammatory condition of skin (16 sources) Intertrigo; Translations: [Erythema intertrigo] 07-24-2019 Episodic Comment on above: inframammary intertr igo Other lower respiratory disease (20 sources) Dyspnea on exertion; Translations: [Other forms of dyspnea] 05-16-2018 Episodic Other lower respiratory disease (16 sources) Cough; Translations: [Cough] 09-02-2021 Episodic Other lower respiratory disease (1 source) Other forms of dyspnea; Translations: [Other forms of dyspnea] Onset: 5 Episodic Other lower respiratory disease (1 source) Shortness of breath; Translations: [Shortness of breath] Onset: 5 Episodic Other non-traumatic joint disorders (16 sources) Shoulder pain; Translations: [Pain in unspecified shoulder] 07-24-2019 Episodic Comment on above: bilateral shoulder p ain from shoulder grooving from the weight of the breasts on her bra straps Other non-traumatic joint disorders (3 sources) Pain in left knee; Translations: [Pain in joint, lower leg] Episodic Other upper respiratory infections (16 sources) Upper respiratory infection; Translations: [Acute upper respiratory infection, unspecified] 08-27-2021 Episodic [place]-; endo-; and myocarditis; cardiomyopathy (except that caused by tuberculosis or sexually transmitted disease) (2 sources) Heart valve disorder; Translations: [Endocarditis, valve unspecified] Onset: 4 04-03-2024 Chronic Poisoning by nonmedicinal substances (16 sources) Allergic reaction caused by hymenoptera venom; Translations: [Toxic effect of venom of other arthropod, accidental (unintentional), initial encounter] 05-12-2022 Episodic Residual codes; unclassified (16 sources) Family history of breast cancer; Translations: [Family history of malignant neoplasm of breast] 07-24-2019 Episodic Residual codes; unclassified (2 sources) Postoperative state; Translations: [Other specified postprocedural states] 04-11-2024 Episodic Screening and history of mental health and substance abuse codes (16 sources) Ex-smoker; Translations: [Personal history of nicotine dependence] 07-24-2019 Episodic Spondylosis; intervertebral disc disorders; other back problems (20 sources) Chronic thoracic back pain; Translations: [Pain in thoracic spine] 07-24-2019 Episodic Syncope (20 sources) Syncope and collapse; Translations: [Syncope and collapse] 08-24-2018 Episodic Urinary tract infections (1 source) Urinary tract infectious disease; Translations: [Urinary tract infection, site not specified] 04-04-2024 Episodic Past or Other Problems Problem Classification Problem Date Documented Date Episodic/Chronic Other screening for suspected conditions (not mental disorders or infectious disease) (17 sources) Patient encounter status; Translations: [Encounter for screening for malignant neoplasm of colon] Onset: 11-16-2024 07-08-2021 Episodic Residual codes; unclassified (16 sources) History of cardiac catheterization; Translations: [Other specified postprocedural states] Onset: 05-25-2018 05-26-2018 Episodic Comment on above: 2015 and 05/26/2018 vladimir Infante @ [facility]: normal coronaries Results Test Name Value Interpretation Reference Range Facility Absolute lymphocyte countOrd ered By: Karlie Johnson on 04-26-2025 Lymphocytes Auto (Unsp spec) [#/Vol] 1.90 10*3/uL 0.83-4.51 [facility] Absolute neutrophil countOrd ered By: Karlie Johnson on 04-26-2025 Neutrophils (Bld) [#/Vol] 7.6 10*3/uL 2.0-7.7 [facility] Anion gap in Serum or Plasma Ordered By: Karlie Johnson on 04-26-2025 Anion gap [Moles/Vol] 11 mmol/L 5-15 [facility] Automated lymphocyte count a s percentage of total leukocytesOrdered By: Karlie Johnson on 04-26-2025 Lymphocytes/100 WBC Auto (Unsp spec) 17.5 % Low 19-41 [facility] BUN/creatinine ratioOrdered By: Karlie Johnson on 04-26-2025 Urea nitrogen/Creatinine [Mass ratio] 21.2 mg/mg High 10-20 [facility] Basic Metabolic Profile (BMP )on 04-26-2025 BUN/CRE 21.2 RATIO High 10-20 [facility] Comment on above: Performed By: #### L 100.0100, L500.2500, L501.5200, L501.9520, L503.7505 ####[facility] [address] [place], [address] Calcium [Mass/Vol] 9.8 mg/dL Normal 7.6-11.0 [facility] Comment on above: Performed By: #### L 100.0100, L500.2500, L501.5200, [id number], L503.7505 ####[facility] [address] [place], [address] Chloride [Moles/Vol] 102 mmol/L Normal 98-108 [facility] Comment on above: Performed By: #### L 100.0100, L500.2500, [id number], [id number], [id number] ####[facility] [address] [place], [address] CO2 [Moles/Vol] 26.5 mmol/L Normal 21.0-32.0 [facility] Comment on above: Performed By: #### L 100.0100, L500.2500, [id number], [id number], [id number] ####[facility] [address] [place], [address] Creatinine [Mass/Vol] 0.87 mg/dL Normal 0.70-1.20 [facility] Comment on above: Performed By: #### L 100.0100, L500.2500, [id number], [id number], L503.7505 ####[facility] [address] [place], [address] GAP 11 Normal 5-15 [facility] Comment on above: Performed By: #### L 100.0100, L500.2500, [id number], [id number], [id number] ####[facility] [address] [place], [address] GFR/1.73 sq M.predicted among non-blacks MDRD (S/P/Bld) [Vol rate/Area] 74 mL/min/{1.73_m2} Normal >60 [facility] Comment on above: Result Comment: mL/m in/1.73m2 CKD-EPI Creatinine Equation (2020) Performed By: #### L 100.0100, L500.2500, [id number], [id number], [id number] ####[facility] [address] [place], [address] Glucose [Mass/Vol] 97 mg/dL Normal 70-99 [facility] Comment on above: Performed By: #### L 100.0100, L500.2500, [id number], [id number], [id number] ####[facility] [address] [place], [address] Potassium [Moles/Vol] 3.7 mmol/L Normal 3.3-5.1 [facility] Comment on above: Performed By: #### L 100.0100, L500.2500, [id number], [id number], [id number] ####[facility] [address] [place], [address] Sodium [Moles/Vol] 139 mmol/L Normal 133-145 [facility] Comment on above: Performed By: #### L 100.0100, L500.2500, L501.5200, L501.9520, L503.7505 ####[facility] [address] [place], [address] Urea nitrogen [Mass/Vol] 18 mg/dL Normal 4-19 [facility] Comment on above: Performed By: #### L 100.0100, L500.2500, L501.5200, L501.9520, L503.7505 ####[facility] [address] [place], [address] Basophil percentageOrdered B y: Karlie Johnson on 04-26-2024 Basophils/100 WBC (Bld) 0.7 % 0-1 [facility] CBC W/Diff, Automatedon Absolute Lymph 1.90 X10 3/uL Normal 0.83-4.51 [facility] Comment on above: Performed By: #### L 100.0100, L500.2500, L501.5200, L501.9520, L503.7505 ####[facility] [address] [place], [address] Absolute Neut 7.6 X10 3/uL Normal 2.0-7.7 [facility] Comment on above: Performed By: #### L 100.0100, L500.2500, L501.5200, L501.9520, L503.7505 ####[facility] [address] [place], [address] Basophils/100 WBC (Bld) 0.7 % Normal 0-1 [facility] Comment on above: Performed By: #### L 100.0100, L500.2500, L501.5200, L501.9520, L503.7505 ####[facility] [address] [place], [address] Eosinophils/100 WBC (Bld) 2.2 % Normal 0-5 [facility] Comment on above: Performed By: #### L 100.0100, L500.2500, L501.5200, L501.9520, L503.7505 ####[facility] [address] [place], [address] Erythrocyte distribution width (RBC) [Ratio] 12.4 % Normal 11.6-14.6 [facility] Comment on above: Performed By: #### L 100.0100, L500.2500, L501.5200, L501.9520, L503.7505 ####[facility] [address] [place], [address] Hematocrit (Bld) [Volume fraction] 38.2 % Normal 37-47 [facility] Comment on above: Performed By: #### L 100.0100, L500.2500, L501.5200, L501.9520, L503.7505 ####[facility] [address] [place], [address] Hemoglobin (Bld) [Mass/Vol] 12.6 g/dL Normal 12.0-15.0 [facility] Comment on above: Performed By: #### L 100.0100, L500.2500, L501.5200, L501.9520, L503.7505 ####[facility] [address] [place], [address] IG% 0.600 Normal 0.0-0.9 [facility] Comment on above: Result Comment: IG% - Immature Granulocytes (promyelocytes, myelocytes and metamyelocytes) > 1% indicates that a LEFT SHIFT is Present. Performed By: #### L 100.0100, L500.2500, L501.5200, L501.9520, L503.7505 ####[facility] [address] [place], [address] Lymphocytes/100 WBC (Bld) 17.5 % Low 19-41 [facility] Comment on above: Performed By: #### L 100.0100, L500.2500, L501.5200, L501.9520, L503.7505 ####[facility] [address] [place], [address] MCH (RBC) [Entitic mass] 29.9 pg Normal 27.0-32.0 [facility] Comment on above: Performed By: #### L 100.0100, L500.2500, L501.5200, L501.9520, L503.7505 ####[facility] [address] [place], [address] MCHC (RBC) [Mass/Vol] 33.0 g/dL Normal 32-36 [facility] Comment on above: Performed By: #### L 100.0100, L500.2500, L501.5200, L501.9520, L503.7505 ####[facility] [address] [place], [address] MCV (RBC) [Entitic vol] 90.7 fL Normal 81-99 [facility] Comment on above: Performed By: #### L 100.0100, L500.2500, L501.5200, L501.9520, L503.7505 ####[facility] [address] [place], [address] Monocytes/100 WBC (Bld) 9.1 % Normal 0-10 [facility] Comment on above: Performed By: #### L 100.0100, L500.2500, L501.5200, L501.9520, L503.7505 ####[facility] [address] [place], [address] Neutrophils/100 WBC (Bld) 69.9 % Normal 47-70 [facility] Comment on above: Performed By: #### L 100.0100, L500.2500, L501.5200, L501.9520, L503.7505 ####[facility] [address] [place], [address] Nucleated RBC (Bld) [#/Vol] 0 10*3/uL Normal 0-5 [facility] Comment on above: Performed By: #### L 100.0100, L500.2500, L501.5200, L501.9520, L503.7505 ####[facility] [address] [place], [address] Platelet mean volume (Bld) [Entitic vol] 10.0 fL Normal 6.2-12.0 [facility] Comment on above: Performed By: #### L 100.0100, L500.2500, L501.5200, L501.9520, L503.7505 ####[facility] [address] [place], [address] Platelets (Bld) [#/Vol] 521 10*3/uL High 150-450 [facility] Comment on above: Performed By: #### L 100.0100, L500.2500, L501.5200, L501.9520, L503.7505 ####[facility] [address] [place], [address] RBC (Bld) [#/Vol] 4.21 10*6/uL Normal 4.2-5.4 [facility] Comment on above: Performed By: #### L 100.0100, L500.2500, L501.5200, L501.9520, L503.7505 ####[facility] [address] [place], [address] RDW SD 40.5 fl Normal 35.1-43.9 [facility] Comment on above: Performed By: #### L 100.0100, L500.2500, L501.5200, L501.9520, L503.7505 ####[facility] [address] [place], [address] WBC (Bld) [#/Vol] 10.9 10*3/uL Normal 4.4-11.0 [facility] Comment on above: Performed By: #### L 100.0100, L500.2500, L501.5200, L501.9520, L503.7505 ####[facility] [address] [place], [address] Carbon dioxide, total [Moles /volume] in Central venous bloodOrdered By: Karlie Johnson on 04-26-2025 CO2 [Moles/Vol] 26.5 mmol/L 21.0-32.0 [facility] Cardiology Visit Reporton Cardiology Visit Report [facility] [address] [place] [address] OFFICE VISIT Date of Service: 04/26/25 MR#: [id number] Acct: [id number] Name: LEEANN CROCKETT Rep #: [id number] : 1960 Provider: GINO sesay Age/Sex: 65/F [place] [facility] [place] Status: Signed HPI HPI History of Present Illness Details: This is a 65-year-old white female who presents to the office today for a cardiovascular follow up visit. She has a history of paroxysmal atrial fibrillation, hyperlipidemia and hypertension. She was extensively evaluated back in 2018 including an invasive left heart catheterization. That cath showed normal LV function ejection fraction 75% and completely normal coronary arteries. The patient does have a strong family history of coronary artery disease she has hyperlipidemia which is well-controlled. She quit smoking in 1995 her blood pressure is well-controlled and she is not diabetic. Patient has a history of paroxysmal atrial fibrillation that has been well-controlled on combination of flecainide and diltiazem. She had an event recorder which she wore from December 20, 2023 through January 16, 2024. This showed no atrial fibrillation. She had occasional PVCs and PACs and some short runs of sinus tachycardia where she felt symptoms. She also had sinus tachycardia without any symptoms and she had some palpitations with normal sinus rhythm. At the patient's last office visit December 16, 2023 the patient had a normal CBC, electrolytes including calcium and magnesium were normal and she had normal thyroid studies. From a cardiac standpoint, the patient is doing well. She does acknowledge palpitations- she describes this as a fluttering/fast beat. She does acknowledge chest tightness-midsternal/l eft chest. She does acknowledge SOB with exertion. She states this is worsening. She does acknowledge orthopnea. She denies PND. She does not have bleeding issues; no blood in urine, stool, or nosebleeds. She does acknowledge fatigue. She denies myalgias, or claudication. She does not have edema, or sudden weight gain. She does acknowledge dizziness with palpitations or quick positional changes. She denies lightheadedness, syncopal or near syncopal episodes, and headaches. 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 Required: No Accompanied by: Self Is patient in pain?: No Allergies dog dander Allergy (Severe, Verified 04/26/25 13:10) Swelling Opioids - Morphine Analogues Allergy (Severe, Verified 04/26/25 13:10) Anaphylaxis perfume Allergy (Severe, Verified 04/26/25 13:10) swelling venom-honey bee Allergy (Severe, Verified 04/26/25 13:10) Anaphylaxis ketorolac (From Toradol) Allergy (Intermediate, Verified 04/26/25 13:10) Nausea bee pollen Allergy (Verified 04/26/25 13:10) Anaphylaxis codeine Allergy (Verified 04/26/25 13:10) Anaphylaxis niacin Allergy (Verified 04/26/25 13:10) Angioedema oxycodone HCl (From Percocet) Allergy (Verified 04/26/25 13:10) Anaphylaxis propoxyphene napsylate (From Darvocet-N) Allergy (Verified 04/26/25 13:10) Angioedema simvastatin (From Zocor) Allergy (Verified 04/26/25 13:10) Angioedema adhesive Adverse Reaction (Severe, Verified 04/26/25 13:10) Other hydromorphone (From Dilaudid) Adverse Reaction (Mild, Verified 04/26/25 13:10) Other Medications ???Medication ???Instructions ???Recorded ???Confirmed ???Type disability placard #1 ea 11/13/20 04/26/25 Rx multivitamin (Daily Multi-Vitamin 1 tab PO DAILY 12/16/23 04/26/25 History tablet) apixaban 5 mg tablet (Eliquis) 5 mg PO BID #180 tabs 11/06/2401/16 Rx diltiazem HCl 240 mg 240 mg PO DAILY #90 caps 11/06/24 04/26/25 Rx capsule,extended release 24 hr ezetimibe 10 mg tablet 10 mg PO DAILY #90 tabs 11/06/24 0 04/26/25 Rx flecainide 100 mg tablet 100 mg PO Q12H #180 tabs 11/29/24 04/26/25 Rx gemfibrozil 600 mg tablet See Rx Instructions .Route 5 04/26/25 Rx .COMPLEX #180 tabs losartan 50 mg-hydrochlorothiazide 1 tab PO QDAY #90 TABLETS 04/26/25 Rx 12.5 mg tablet Have you fallen in the past year?: No PFSH Medical History High cholesterol Tear of medial meniscus of left knee Osteoarthritis of left knee Synovial cyst of popliteal space [Poe], left knee Fecal incontinence Change in bowel habits GERD (gastroesophageal reflux disease) Anxiety and depression Wears glasses Arthritis Anemia Back pain Restless legs Heartburn Shortness of breath on exertion Leg cramps Hypertensi (more content not included)... Normal [facility] Chloride assayOrdered By: Tarik Johnson on 04-26-2025 Chloride [Moles/Vol] 102 mmol/L 98-108 [facility] Eosinophil percentageOrdered By: Karlie Johnson on 04-26-2025 Eosinophils/100 WBC (Bld) 2.2 % 0-5 [facility] Erythrocyte distribution wid th ratioOrdered By: Karlie Johnson on 04-26-2025 Erythrocyte distribution width (RBC) [Ratio] 12.4 % 11.6-14.6 [facility] Erythrocyte distribution wid th standard deviationOrdered By: Karlie Johnson on 04-26-2025 Erythrocyte distribution width (RBC) [Ratio] 40.5 fl 35.1-43.9 [facility] Glomerular filtration rate ( GFR) estimation/1.73 sq m using serum, plasma, or whole bOrdered By: Karlie Johnson on 04-26-2025 GFR/1.73 sq M.predicted among non-blacks MDRD (S/P/Bld) [Vol rate/Area] 74 mL/min/{1.73_m2} >60 [facility] Comment on above: mL/min/1.73m2 CKD-EP I Creatinine Equation (2020) Hematocrit Auto (Bld) [Volum e fraction]Ordered By: Karlie Johnson on 04-26-2025 Hematocrit (Bld) [Volume fraction] 38.2 % 37-47 [facility] Hemoglobin measurementOrdere d By: Karlie Johnson on 04-26-2025 Hemoglobin (Bld) [Mass/Vol] 12.6 g/dL 12.0-15.0 [facility] Immature granulocytes/100 WB C Auto (Bld)Ordered By: Karlie Johnson on 04-26-2025 Immature granulocytes/100 WBC (Bld) 0.600 % 0.0-0.9 [facility] Comment on above: IG% - Immature Granu locytes (promyelocytes, myelocytes and metamyelocytes) > 1% indicates that a LEFT SHIFT is Present. L503.7505on 04-26-2025 proBNP < 36 Normal <=900 [facility] Comment on above: Result Comment: Hear t Failure Unlikely: < 300 pg/mL Heart Failure Likely < 50 Years: > 450 pg/mL 50-75 Years: > 900 pg/mL >75 Years: > 1800 pg/mL Performed By: #### L 100.0100, L500.2500, L501.5200, L501.9520, L503.7505 ####[facility] [address] [place], [address] MCV (mean corpuscular volume ) determinationOrdered By: Karlie Johnson on 04-26-2025 MCV (RBC) [Entitic vol] 90.7 fL 81-99 [facility] Magnesiumon 04-26-2025 Magnesium [Mass/Vol] 2.5 mg/dL High 1.5-2.2 [facility] Comment on above: Performed By: #### L 100.0100, L500.2500, L501.5200, L501.9520, L503.7505 ####[facility] [address] [place], [address] Magnesium measurement (mass/ volume)Ordered By: Karlie Johnson on 04-26-2025 Magnesium (Unsp spec) [Mass/Vol] 2.5 mg/dL High 1.5-2.2 [facility] Mean corpuscular hemoglobin (MCH) determinationOrdered By: Karlie Johnson on 04-26-2025 MCH (RBC) [Entitic mass] 29.9 pg 27.0-32.0 [facility] Mean corpuscular hemoglobin concentration (MCHC) determinationOrdered By: Karlie Johnson on 04-26-2025 MCHC (RBC) [Mass/Vol] 33.0 g/dL 32-36 [facility] Mean platelet volume determi nationOrdered By: Karlie Johnson on 04-26-2025 Platelet mean volume (Bld) [Entitic vol] 10.0 fL 6.2-12.0 [facility] Monocyte percentageOrdered B y: Karlie Johnson on 04-26-2025 Monocytes/100 WBC (Bld) 9.1 % 0-10 [facility] Natriuretic peptide.B prohor franklyn N-Terminal [Mass/volume] in Serum or PlasmaOrdered By: Karlie Johnson on 04-26-2025 Natriuretic peptide.B prohormone N-Terminal [Mass/Vol] < 36 pg/mL <900 [facility] Comment on above: Heart Failure Unlike ly: < 300 pg/mLHeart Failure Likely< 50 Years: > 450 pg/mL50-75 Years: > 900 pg/mL>75 Years: > 1800 pg/mL Neutrophil percentageOrdered By: Karlie Johnson on 04-26-2025 Neutrophils/100 WBC (Bld) 69.9 % 47-70 [facility] Nucleated red blood cell per centageOrdered By: Karlie Johnson on 04-26-2025 Nucleated RBC/100 WBC (Bld) [Ratio] 0 % 0-5 [facility] Platelet countOrdered By: Tarik Johnson on 04-26-2025 Platelets (Bld) [#/Vol] 521 10*3/uL High 150-450 [facility] Potassium measurement (mass/ volume)Ordered By: Karlie Johnson on 04-26-2025 Potassium (Unsp spec) [Mass/Vol] 3.7 mmol/L 3.3-5.1 [facility] RBC Auto (Bld) [#/Vol]Ordere d By: Karlie Johnson on 04-26-2025 RBC (Bld) [#/Vol] 4.21 10*6/uL 4.2-5.4 [facility] Serum creatinine measurement (mass/volume)Ordered By: Karlie Johnson on 04-26-2025 Creatinine [Mass/Vol] 0.87 mg/dL 0.70-1.20 [facility] Serum glucose measurement (m ass/volume)Ordered By: Karlie Johnson on 04-26-2025 Glucose [Mass/Vol] 97 mg/dL 70-99 [facility] Serum or plasma calcium kyree urement (mass/volume)Ordered By: Karlie Johnson on 04-26-2025 Calcium [Mass/Vol] 9.8 mg/dL 7.6-11.0 [facility] Serum or plasma urea nitroge n measurement (mass/volume)Ordered By: Karlie Johnson on 04-26-2025 Urea nitrogen [Mass/Vol] 18 mg/dL 4-19 [facility] Sodium levelOrdered By: Adali Johnson on 04-26-2025 Sodium [Moles/Vol] 139 mmol/L 133-145 [facility] TSH DL <= 0.005 mIU/L QnOrde red By: Karlie Johnson on 04-26-2025 TSH Qn 1.970 uIU/mL 0.300-4.200 [facility] Thyroid Stim Hormone (TSH)on 04-26-2025 TSH 1.970 uIU/mL Normal 0.300-4.200 [facility] Comment on above: Performed By: #### L 100.0100, L500.2500, L501.5200, L501.9520, L503.7505 ####[facility] [address] [place], [address] White blood cell (WBC) count Ordered By: Karlie Johnson on 04-26-2025 WBC (Bld) [#/Vol] 10.9 10*3/uL 4.4-11.0 [facility] Bilirubin directOrdered By: Larry Rodriguez on 03-24-2025 Bilirubin.direct [Mass/Vol] 0.14 mg/dL 0.00-0.30 [facility] Bilirubin, totalOrdered By: Larry Rodriguez on 03-24-2025 Bilirubin [Mass/Vol] 0.32 mg/dL 0.00-1.30 [facility] Calculated very low density lipoprotein (VLDL) cholesterol measurementOrdered By: Larry Rodriguez on 03-24-2025 Calculated very low density lipoprotein (VLDL) cholesterol measurement 22 mg/dL 5-40 [facility] LDL calc ser/plasOrdered By: Larry Rodriguez on 03-24-2025 Cholesterol in LDL [Mass/Vol] 98 mg/dL [facility] Comment on above: Kpingmhbwp=654-545 m g/dL & Higher Llzw=895 mg/dL or greater Laboratory - Chemistry and C hemistry - challengeOrdered By: Larry Rodriguez on 03-24-2025 AST [Catalytic activity/Vol] 18 U/L <32 [facility] Lipid Profileon 03-24-2025 CHOL:HDL 3.42 Normal [facility] Comment on above: Performed By: #### L 500.4100, L500.3400 ####[facility] [address] [place], [address] Cholesterol [Mass/Vol] 170 mg/dL Normal <=200 [facility] Comment on above: Result Comment: Chol esterol level, Desirable <200 mg/dL Borderline high cholesterol 200-239 mg/dL High cholesterol >=240 mg/dL Recommendations of the NCEP Adult Treatment Panel for the following risk-cutoff thresholds for the [place] population. Performed By: #### L 500.4100, L500.3400 ####[facility] [address] [place], [address] Cholesterol in HDL [Mass/Vol] 50 mg/dL Normal [facility] Comment on above: Result Comment: Alexandra onvandana Cholesterol Education Program (NCEP) guidelines: <40 mg/dL: Low HDL-cholesterol (major risk factor for CHD) >= 60 mg/dL: High HDL-cholesterol (negative risk factor for CHD) HDL-cholesterol is affected by a number of factors, e.g. smoking, exercise, hormones, sex and age. Performed By: #### L 500.4100, L500.3400 ####[facility] [address] [place], [address] Cholesterol in LDL [Mass/Vol] 98 mg/dL Normal [facility] Comment on above: Result Comment: Bord hdelne=644-748 mg/dL Higher Dsec=790 mg/dL or greater Performed By: #### L 500.4100, L500.3400 ####[facility] [address] [place], [address] Cholesterol in VLDL [Mass/Vol] 22 mg/dL Normal 5-40 [facility] Comment on above: Performed By: #### L 500.4100, L500.3400 ####[facility] [address] [place], [address] Triglyceride [Mass/Vol] 111 mg/dL Normal [facility] Comment on above: Result Comment: The drugs N-Acetylcysteine and Metamizole may falsely depress this assay. Normal range: <150 mg/dL Borderline High: 150-199 mg/dL High: 200-499 mg/dL Very High: >500 mg/dL Performed By: #### L 500.4100, L500.3400 ####[facility] [address] [place], [address] Liver Profileon 03-24-2025 Albumin [Mass/Vol] 4.5 g/dL Normal 3.4-4.8 [facility] Comment on above: Performed By: #### L 500.4100, L500.3400 #### [facility] [address] [place], [address] ALK PHOS 79 U/L Normal 35-104 [facility] Comment on above: Performed By: #### L 500.4100, L500.3400 #### [facility] [address] [place], [address] ALT [Catalytic activity/Vol] 16 U/L Normal <=34 [facility] Comment on above: Performed By: #### L 500.4100, L500.3400 #### [facility] [address] [place], [address] AST [Catalytic activity/Vol] 18 U/L Normal <=31 [facility] Comment on above: Performed By: #### L 500.4100, L500.3400 #### [facility] [address] [place], [address] Bilirubin [Mass/Vol] 0.32 mg/dL Normal 0.00-1.30 [facility] Comment on above: Performed By: #### L 500.4100, L500.3400 #### [facility] [address] [place], [address] Bilirubin.direct [Mass/Vol] 0.14 mg/dL Normal 0.00-0.30 [facility] Comment on above: Performed By: #### L 500.4100, L500.3400 #### [facility] [address] [place], [address] Globulin (S) [Mass/Vol] 2.9 g/dL Normal 2.2-4.2 [facility] Comment on above: Performed By: #### L 500.4100, L500.3400 #### [facility] [address] [place], [address] T PROT 7.4 g/dL Normal 5.9-8.4 [facility] Comment on above: Performed By: #### L 500.4100, L500.3400 #### [facility] [address] [place], [address] Screening total cholesterol/ high density lipoprotein (HDL) cholesterol ratioOrdered By: Larry Rodriguez on 03-24-2025 Cholesterol.total/Jennifer sterol in HDL [Mass ratio] 3.42 {ratio} [facility] Serum globulin measurementOr dered By: Larry Rodriguez on 03-24-2025 Globulin (S) [Mass/Vol] 2.9 g/dL 2.2-4.2 [facility] Serum or plasma alanine castañeda otransferase (ALT) measurementOrdered By: Larry Rodriguez on 03-24-2025 ALT [Catalytic activity/Vol] 16 U/L <35 [facility] Serum or plasma albumin kyree urement (mass/volume)Ordered By: Larry Rodriguez on 03-24-2025 Albumin [Mass/Vol] 4.5 g/dL 3.4-4.8 [facility] Serum or plasma alkaline tevin sphatase measurementOrdered By: Larry Rodriguez on 03-24-2025 ALP [Catalytic activity/Vol] 79 U/L 35-104 [facility] Serum or plasma cholesterol in HDL measurement (mass/volume)Ordered By: Larry Rodriguez on 03-24-2025 Cholesterol in HDL [Mass/Vol] 50 mg/dL >40 [facility] Comment on above: National Cholesterol Education Program (NCEP) guidelines:<40 mg/dL: Low HDL-cholesterol (major risk factor for CHD)>= 60 mg/dL: High HDL-cholesterol (negative risk factor for CHD)HDL-cholesterol is affected by a number of factors, e.g. smoking, exercise, hormones, sex and age. Serum or plasma cholesterol measurement (mass/volume)Ordered By: Larry Rodriguez on 03-24-2025 Cholesterol [Mass/Vol] 170 mg/dL <201 [facility] Comment on above: Cholesterol level, D esirable <200 mg/dLBorderline high cholesterol 200-239 mg/dLHigh cholesterol >=240 mg/dLRecommendations of the NCEP Adult Treatment Panel for the following risk-cutoff thresholds for the [place] population. Total proteinOrdered By: Diallo Rodriguez on 03-24-2025 Protein [Mass/Vol] 7.4 g/dL 5.9-8.4 [facility] Triglycerides measurementOrd ered By: Larry Rodriguez on 03-24-2025 Triglyceride [Mass/Vol] 111 mg/dL <199 [facility] Comment on above: The drugs N-Acetylcy steine and Metamizole may falsely depress this assay. Normal range: <150 mg/dLBorderline High: 150-199 mg/dLHigh: 200-499 mg/dLVery High: >500 mg/dL Dexa Bone Density Studyon Dexa Bone Density Study [facility] Imaging Services [address] [place] [address] Dexa Bone Density Study MR#: [id number] Acct: [id number] Name: LEEANN CROCKETT Rep #: [id number] : 1960 F 64 From: Deandre Ricks MD PCP: Dr. Yennifer Johnson MD Status: [facility] Study: Dexa Bone Density Study Date of Exam: 10/24/24 Exam# [id number] Ordering Dr: Yennifer Johnson MD [id number] STUDY: DUAL ENERGY X-RAY ABSORPTIOMETRY / DXA REASON FOR EXAM: Female, 64 years old. Post Menopausal TECHNIQUE: Bone Mineral Density (BMD) measurements of lumbar spine and bilateral hips were obtained. COMPARISON: 09/25/2021 FINDINGS: Lumbar Spine (L1-L4): g/cm2 (0.986) / T-score (-0.6) / Z-score (1.2) Findings are suggestive of normal bone density with a low fracture risk. Left Femur Total: g/cm2 (0.760) / T-score (-1.5) / Z-score (-0.3) Left Femoral Neck: g/cm2 (0.786) / T-score (-0.6) / Z-score (0.9) Right Femur Total: g/cm2 (0.821) / T-score (-1.0) / Z-score (0.2) Right Femoral Neck: g/cm2 (0.867) / T-score (0.2) / Z-score (1.6) BD/Dexa Bone Density Study IMPRESSION: The patient is considered osteopenic as outlined below according to World [employer] Organization (WHO) criteria with a moderate fracture risk. There has been no change of bone density since the previous examination. Reference Information: The T-score is the number of standard deviations above or below the standard which is normal for young adults at their peak bone mineral density. The World Health Organization (WHO) interprets the T-scores as follows: Above -1 Normal bone density Between -1 and -2.5 Osteopenia Equal to / or below -2.5 Osteoporosis As a practical clinical guideline, osteopenia may be graded as follows: Mild -1 through -1.5 Moderate -1.6 through -2.0 Severe -2.1 through -2.4 The Z-score is the number of standard deviations above or below age-matched controls. A Z-score of less than -1.5 would be considered abnormal. References: 1. NIH Osteoporosis and Related Bone Diseases www osteo.org 2. International Society for Clinical Densitometry www iscd.org 3. National Osteoporosis Foundation www nof.org Electronically Signed: Deandre Ricks MD at 23:44 EST , CC: Dr. Yennifer Johnson MD Tmh Teacher: Signed Normal [facility] SCRN MAMM (CAD)W/DARRELL BILATo n 10-24-2024 SCRN MAMM (CAD)W/DARRELL BILAT [facility] Imaging Services [address] [place] [address] SCRN MAMM (CAD)W/DARRELL BILAT MR#: [id number] Acct: [id number] Name: LEEANN CROCKETT Rep #: [id number] : 1960 F 64 From: Deandre Ricks MD PCP: Dr. Yennifer Johnson MD Status: REG CLI Study: SCRN MAMM (CAD)W/DARRELL BILAT Date of Exam: 09/26 11/17 Exam# [id number] Ordering Dr: Yennifer Johnson MD [id number] MAMMOGRAPHY - BILATERAL SCREENING 3-D TOMOSYNTHESIS REASON FOR EXAM: Female, 64 years old. Breast cancer Screening PERTINENT HISTORY: No significant family history. TECHNIQUE: 2-D mammograms and 3-D Tomosynthesis of the breast (s) were performed. CAD was performed. COMPARISON: 10/21/2023 FINDINGS: The breast composition is composed of scattered fibroglandular density. Scattered benign calcifications are seen. No dense spiculated masses or suspicious microcalcifications are identified. No architectural distortion is identified. There is no skin thickening or retraction. There has been no significant change since the prior study. BI/SCRN MAMM (CAD)W/DARRELL BILAT IMPRESSION: No mammographic signs of malignancy. Routine yearly mammograms recommended. ASSESSMENT CATEGORY: BIRADS Category 1: Negative. A letter regarding these results will be sent to the patient by the facility within 30 days. FOLLOW UP RECOMMENDATION: Yearly follow up mammogram recommended. (A) Approximately 10% of breast cancers are not detected by mammography. A normal mammogram should not delay biopsy of a clinically suspicious abnormality. Electronically Signed: Deandre Ricks MD at 19:33 EST Reading Location ID and State: [address] [place] [address] Tel , Service support , CC: Dr. Yennifer Johnson MD Tmh Teacher: Signed Normal [facility] Lipid Profileon 10-21-2024 Cholesterol [Mass/Vol] 184 mg/dL Normal 200 [facility] Comment on above: Result Comment: <200 mg/dL Desirable 200-240 mg/dL Borderline >240 mg/dL High Risk Performed By: #### L 500.4100, L500.3400 #### [facility] Laboratory [facility] [place], [address] Cholesterol in HDL [Mass/Vol] 71 mg/dL Normal [facility] Comment on above: Result Comment: The drugs N-Acetylcysteine and Metamizole may falsely depress this assay. Reference Range HDL <40 mg/dL Low HDL Cholesterol HDL >or= 60 mg/dL High HDL Cholesterol Performed By: #### L 500.4100, L500.3400 #### [facility] [address] [place], [address] Cholesterol in LDL [Mass/Vol] 102 mg/dL Normal 0-130 [facility] Comment on above: Performed By: #### L 500.4100, L500.3400 #### [facility] [address] [place], [address] Cholesterol in VLDL [Mass/Vol] 11 mg/dL Normal 5-40 [facility] Comment on above: Performed By: #### L 500.4100, L500.3400 #### [facility] [address] [place], [address] Triglyceride [Mass/Vol] 55 mg/dL Normal [facility] Comment on above: Result Comment: The drugs N-Acetylcysteine and Metamizole may falsely depress this assay. Serum Triglycerides Reference Interval Normal <150 mg/dL Borderline high 150 - 199 mg/dL High 200 - 499 mg/dL Very High > or = 500 mg/dL Performed By: #### L 500.4100, L500.3400 #### [facility] [address] [place], [address] Liver Profileon 10-21-2024 Albumin [Mass/Vol] 3.7 g/dL Normal 3.2-5.0 [facility] Comment on above: Performed By: #### L 500.4100, L500.3400 #### [facility] [address] [place], [address] ALK P 90 U/L Normal 45-117 [facility] Comment on above: Performed By: #### L 500.4100, L500.3400 #### [facility] [address] [place], [address] ALT [Catalytic activity/Vol] 17 U/L Normal 13-56 [facility] Comment on above: Performed By: #### L 500.4100, L500.3400 #### [facility] [address] [place], [address] AST [Catalytic activity/Vol] 14 U/L Low 15-37 [facility] Comment on above: Performed By: #### L 500.4100, L500.3400 #### [facility] [address] [place], [address] Bilirubin [Mass/Vol] 0.40 mg/dL Normal 0.20-1.00 [facility] Comment on above: Result Comment: For patients on eltrombopag therapy, use of [employer] TBIL is not recommended. Performed By: #### L 500.4100, L500.3400 #### [facility] [address] [place], [address] Bilirubin.direct [Mass/Vol] 0.14 mg/dL Normal 0.00-0.30 [facility] Comment on above: Performed By: #### L 500.4100, L500.3400 #### [facility] [address] [place], [address] Globulin (S) [Mass/Vol] 4.0 g/dL Normal 2.2-4.2 [facility] Comment on above: Performed By: #### L 500.4100, L500.3400 #### [facility] [address] [place], [address] T PROT 7.7 g/dL Normal 6.4-8.2 [facility] Comment on above: Performed By: #### L 500.4100, L500.3400 #### [facility] [address] [place], [address] Basic Metabolic Profile (BMP )on 07-10-2024 BUN/CRE 21.5 RATIO High 10-20 [facility] Comment on above: Performed By: #### L 100.0100, L500.2500 #### [facility] [address] [place], [address] CA,Total 9.5 mg/dL Normal 8.5-10.1 [facility] Comment on above: Performed By: #### L 100.0100, L500.2500 #### [facility] [address] [place], [address] Chloride [Moles/Vol] 105 mmol/L Normal 98-107 [facility] Comment on above: Performed By: #### L 100.0100, L500.2500 #### [facility] [address] [place], [address] CO2 [Moles/Vol] 27.0 mmol/L Normal 21.0-32.0 [facility] Comment on above: Performed By: #### L 100.0100, L500.2500 #### [facility] [address] [place], [address] Creatinine [Mass/Vol] 0.70 mg/dL Normal 0.55-1.02 [facility] Comment on above: Result Comment: The validity of the calculated GFR GFRAA in patients over 70 years has not been determined. Clinical correlation is essential. Performed By: #### L 100.0100, L500.2500 #### [facility] [address] [place], [address] EST GFR - AA 109 mL/min Normal >60 [facility] Comment on above: Result Comment: Afri can [place] GFR Calc Performed By: #### L 100.0100, L500.2500 #### [facility] [address] [place], [address] GAP 6 Normal 5-15 [facility] Comment on above: Performed By: #### L 100.0100, L500.2500 #### [facility] [address] [place], [address] GFR/1.73 sq M.predicted among non-blacks MDRD (S/P/Bld) [Vol rate/Area] 90 mL/min/{1.73_m2} Normal >60 [facility] Comment on above: Result Comment: Non- GFR Calc Performed By: #### L 100.0100, L500.2500 #### [facility] [address] [place], [address] Glucose [Mass/Vol] 106 mg/dL Normal 74-106 [facility] Comment on above: Result Comment: Fast ing Glucose result from 100 to 125 mg/dL suggests IMPAIRED HOMEOSTASIS per A.D.A. criteria. Performed By: #### L 100.0100, L500.2500 #### [facility] [address] [place], [address] Potassium [Moles/Vol] 3.9 mmol/L Normal 3.5-5.1 [facility] Comment on above: Performed By: #### L 100.0100, L500.2500 #### [facility] [address] [place], [address] Sodium [Moles/Vol] 138 mmol/L Normal 136-145 [facility] Comment on above: Performed By: #### L 100.0100, L500.2500 #### [facility] [address] [place], [address] Urea nitrogen [Mass/Vol] 15 mg/dL Normal 7-18 [facility] Comment on above: Performed By: #### L 100.0100, L500.2500 #### [facility] [address] [place], [address] CBC W/Diff, Automatedon 09- Absolute Lymph 1.74 X10 3/uL Normal 0.83-4.51 [facility] Comment on above: Performed By: #### L 100.0100, L500.2500 #### [facility] [address] [place], [address] Absolute Neut 7.0 X10 3/uL Normal 2.0-7.7 [facility] Comment on above: Performed By: #### L 100.0100, L500.2500 #### [facility] [address] [place], [address] Basophils/100 WBC (Bld) 0.5 % Normal 0-1 [facility] Comment on above: Performed By: #### L 100.0100, L500.2500 #### [facility] [address] [place], [address] Eosinophils/100 WBC (Bld) 1.8 % Normal 0-5 [facility] Comment on above: Performed By: #### L 100.0100, L500.2500 #### [facility] [address] [place], [address] Erythrocyte distribution width (RBC) [Ratio] 13.1 % Normal 11.6-14.6 [facility] Comment on above: Performed By: #### L 100.0100, L500.2500 #### [facility] [address] [place], [address] Hematocrit (Bld) [Volume fraction] 37.1 % Normal 37-47 [facility] Comment on above: Performed By: #### L 100.0100, L500.2500 #### [facility] [address] [place], [address] Hemoglobin (Bld) [Mass/Vol] 11.9 g/dL Low 12.0-15.0 [facility] Comment on above: Performed By: #### L 100.0100, L500.2500 #### [facility] [address] [place], [address] IG% 0.700 Normal 0.0-0.9 [facility] Comment on above: Result Comment: IG% - Immature Granulocytes (promyelocytes, myelocytes and metamyelocytes) > 1% indicates that a LEFT SHIFT is Present. Performed By: #### L 100.0100, L500.2500 #### [facility] [address] [place], [address] Lymphocytes/100 WBC (Bld) 17.7 % Low 19-41 [facility] Comment on above: Performed By: #### L 100.0100, L500.2500 #### [facility] [address] [place], [address] MCH (RBC) [Entitic mass] 28.5 pg Normal 27.0-32.0 [facility] Comment on above: Performed By: #### L 100.0100, L500.2500 #### [facility] [address] [place], [address] MCHC (RBC) [Mass/Vol] 32.1 g/dL Normal 32-36 [facility] Comment on above: Performed By: #### L 100.0100, L500.2500 #### [facility] [address] [place], [address] MCV (RBC) [Entitic vol] 88.8 fL Normal 81-99 [facility] Comment on above: Performed By: #### L 100.0100, L500.2500 #### [facility] [address] [place], [address] Monocytes/100 WBC (Bld) 8.1 % Normal 0-10 [facility] Comment on above: Performed By: #### L 100.0100, L500.2500 #### [facility] [address] [place], [address] Neutrophils/100 WBC (Bld) 71.2 % High 47-70 [facility] Comment on above: Performed By: #### L 100.0100, L500.2500 #### [facility] [address] [place], [address] Nucleated RBC (Bld) [#/Vol] 0 10*3/uL Normal 0-5 [facility] Comment on above: Performed By: #### L 100.0100, L500.2500 #### [facility] [address] [place], [address] Platelet mean volume (Bld) [Entitic vol] 9.9 fL Normal 6.2-12.0 [facility] Comment on above: Performed By: #### L 100.0100, L500.2500 #### [facility] [address] [place], [address] Platelets (Bld) [#/Vol] 449 10*3/uL Normal 150-450 [facility] Comment on above: Performed By: #### L 100.0100, L500.2500 #### [facility] [address] [place], [address] RBC (Bld) [#/Vol] 4.18 10*6/uL Low 4.2-5.4 [facility] Comment on above: Performed By: #### L 100.0100, L500.2500 #### [facility] [address] [place], [address] RDW SD 42.4 fl Normal 35.1-43.9 [facility] Comment on above: Performed By: #### L 100.0100, L500.2500 #### [facility] [address] [place], [address] WBC (Bld) [#/Vol] 9.8 10*3/uL Normal 4.4-11.0 [facility] Comment on above: Performed By: #### L 100.0100, L500.2500 #### [facility] [address] [place], [address] Internal Medicine Office Vis itoshannan 07-10-2024 Internal Medicine Office Visit [facility] [address] [place] [address] [place] [address] OFFICE VISIT Date of Service: 07/10/24 MR#: [id number] Acct: [id number] Name: LEEANN CROCKETT Rep #: [id number] : 1960 Provider: Dr. Yennifer garza MD Age/Sex: 64/F Location[place] [facility] Status: Signed Intake Vital Signs 02/25/24 13:15 07/10/24 14:39 Height 5 ft 2 in 5 ft 2 in Weight: 158 lb BMI 28.9 BP 122/64 H Blood Pressure Location Lt brachial Position Sitting Respiration 16 Pulse 64 Pulse Source Monitor Temp 97.6 F L Temp Source Temporal Pulse Oximetry (%) 97 Oxygen Delivery Method room air Intake Visit Reasons: WELLNESS PHYSICAL Chief Complaint: wellness Financial Planning Adviser Required: No Accompanied by: Self Is patient in pain?: No Allergies dog dander Allergy (Severe, Verified 07/10/24 14:35) Swelling Opioids - Morphine Analogues Allergy (Severe, Verified 07/10/24 14:35) Anaphylaxis perfume Allergy (Severe, Verified 07/10/24 14:35) swelling venom-honey bee Allergy (Severe, Verified 07/10/24 14:35) Anaphylaxis ketorolac (From Toradol) Allergy (Intermediate, Verified 07/10/24 14:35) Nausea bee pollen Allergy (Verified 07/10/24 14:35) Anaphylaxis codeine Allergy (Verified 07/10/24 14:35) Anaphylaxis niacin Allergy (Verified 07/10/24 14:35) Angioedema oxycodone HCl (From Percocet) Allergy (Verified 07/10/24 14:35) Anaphylaxis propoxyphene napsylate (From Darvocet-N) Allergy (Verified 07/10/24 14:35) Angioedema simvastatin (From Zocor) Allergy (Verified 07/10/24 14:35) Angioedema adhesive Adverse Reaction (Severe, Verified 07/10/24 14:35) Other hydromorphone (From Dilaudid) Adverse Reaction (Mild, Verified 07/10/24 14:35) Other Medications ???Medication ???Instructions ???Recorded ???Confirmed ???Type disability placard #1 ea 11/13/20 07/10/24 Rx apixaban 5 mg tablet (Eliquis) 5 mg PO BID #180 tabs 11/08/23 07/10/24 Rx ezetimibe 10 mg tablet 10 mg PO DAILY #90 tabs 11/08/23 07/10/24 Rx gemfibrozil 600 mg tablet See Rx Instructions .Route 11/08/23 07/10/24 Rx .COMPLEX #180 tabs losartan 50 mg-hydrochlorothiazide See Rx Instructions .Route 11/08/23 07/10/24 Rx 12.5 mg tablet .COMPLEX #90 TABLETS multivitamin (Daily Multi-Vitamin 1 tab PO DAILY 12/16/23 07/10/24 History tablet) diltiazem HCl 240 mg 240 mg PO DAILY #90 caps 01/17/24 07/10/24 Rx capsule,extended release 24 hr flecainide 100 mg tablet 100 mg PO Q12H #180 tabs 03/09/24 07/10/24 Rx PFSH Medical History High cholesterol Tear of medial meniscus of left knee Osteoarthritis of left knee Synovial cyst of popliteal space [Poe], left knee Fecal incontinence Change in bowel habits GERD (gastroesophageal reflux disease) Anxiety and depression Wears glasses Arthritis Anemia Back pain Restless legs Heartburn Shortness of breath on exertion Leg cramps Hypertension History of echocardiogram History of stress test Cardiology follow-up encounter History of atrial fibrillation Cough Asthma exacerbation Upper respiratory infection Preventative health care Colon cancer screening Paroxysmal atrial fibrillation Routine adult health maintenance Frequent headaches Breast lump in female Back problem Seasonal allergies Atrial fibrillation Essential (primary) hypertension Mixed hyperlipidemia Paroxysmal ventricular tachycardia Chest pain Syncope and collapse Dyspnea on exertion Dizziness Nonrheumatic aortic valve insufficiency Asthma (12/06/15) Dizziness and giddiness Dyspnea on exertion Chest pain Palpitations Left ventricular hypertrophy Syncope and collapse Surgical History (Updated 07/10/24 @ 14:39 by Sandy Jimenez MA) History of knee surgery H/O arthroscopy of left knee History of cardiac catheterization Hx of colonoscopy History of bilateral breast reduction surgery History of left heart catheterization (05/25/18) History of lumpectomy of left breast History of partial hysterectomy Hx of tonsillectomy H/O tubal ligation Family History Father CVA (cerebral vascular accident) Diabetes Hypertension High cholesterol Mother Breast cancer Cancer Diabetes Hypertension Grandmother CAD (coronary artery disease) Myocardial infarction, Onset Age: 68 Brother Diabetes Aunt Cancer Social History Smoking Status: Former smoker quit date: 06/25/96 pack-years: 16 Tobacco: How many years used: 12 Electronic Cigarette Use: not used how long ago did patient quit smokin years ago second hand exposure: No alcohol intake: current alcohol intake frequency: holidays/special occasions only Alcohol type: wine substance use type: (more content not included)... Normal [facility] PT D/C Summary (1)on 024 PT D/C Summary (1) [facility] Physical Therapy [facility] [address] [place] [address] [address] [place] [address] / REHABILITATION SERVICES DISCHARGE SUMMARY MR#: [id number] Acct: [id number] Name: LEEANN CROCKETT Rep #: [id number] : 1960 64 From: Clayton Valles PT, ATC Referring Dr.: Tin West MD Status: REG RCR Insurance: [employer] INSURANCE Discharge Summary D/C summary: It has been my pleasure to treat LEEANN CROCKETT referred by Tin West MD, with the diagnosis of Left TKR 04/03/24 for a total of 22 visit(s). Discharge Date: 06/15/24 Please see the following information for a summary of their discharge status. Subjective Subjective: Pt reports she is ready for discharge Pain Left Knee: Pain Intensity (Out of 10): 0 Overall Improvement % Improvement: 95 Objective Objective/Function: L knee pain 0/10 L knee ROM 0-123 degrees Pt is able to ascend and descend 10 stairs without difficulty Pt is I with HEP Rx goals achieved Goals Goal 1:: Patient will be I with HEP and progression Goal Progress: Goal Met Goal 2:: Patient will ambulate <300 feet with normalized gait pattern and no AD Goal Progress: Goal Met Goal 3:: Patient will asc/desc 8 stairs recip with no HR Goal Progress: Goal Met Goal 4:: Patient will demo 0-120 degrees of ROM Goal Progress: Goal Met Goal 5:: Patient will SLR without assistance Goal Progress: Goal Met Goal 6:: Patient will report 80% improvement Goal Progress: Goal Met Plan Plan: Discharge to [facility] D/C Information Discharge Comments: Rx goals achieved d/c sentence: If there are questions or concerns regarding this patient's physical therapy, please feel free to call me at [phone]. Thank you for the referral of this patient. Sincerely, Clayton Valles, PT, ATC Balance/Gait/Functiona l tests Balance/Special Test Scores Lower Extremity Functional Score: 64 Tug Test: <10 sec.=free mobile WOMAC Total Score: 31 WOMAC Percentage: 67.7100 Improvement % Improvement: 95 06/15/24 1629 CC: Tin West MD; Dr. Yennifer Johnson MD [facility] Signed Normal [facility] Re-Evaluation - PT (1)on Re-Evaluation - PT (1) [facility] [address] [place] [address] [address] [place] [address] / REEVALUATION / MEDICARE RECERTIFICATION PHYSICAL THERAPY MR#: [id number] Acct: [id number] Name: LEEANN CROCKETT Rep #: [id number] : 1960 64 From: Meghan Lopez DPT Referring Dr.: Tin West MD Status:REG RCR Insurance: [employer] INSURANCE Re-Evaluation Intro: Tin West MD, It has been my pleasure to treat LEEANN CROCKETT over the last 14 visits for Left TKR 04/03/24. Please see the progress note below for an update on the physical therapy plan of care! Subjective Subjective: Patient reports that she had a spot that kept busting loose and the scab came off and feel better. She is challenged with both up/down stairs. She is getting better sleep. She went grocery shopping 2 days in a row 1.5 hours each. Goes back to the [place] on the 07 of June. She still uses her cane intermittently. Worst: 03/03 Objective Objective/Function: Posture: forward head, rounded shoulders- can correct but does not maintain Gait: no AD- slightly antalgic Stairs: asc/desc 8 recip with 2 HR- very hesitant HR/TR: able with UE A SLS: 5 seconds Observation: no s.s of infection ROM: 0-118 degrees Strength: Core: fair minus, Hip: 4+/5 Knee: Flexion: 23 Extn: 30 Ankle: 5/5 Flex: HS: moderate, Gastroc: moderate Plan Plan Plan: 05/18/24: Continue with POC- 2x a week for 4 weeks- add gym program and focus on recip stairs Left TKR 04/03/24- focus on ROM and strength/stabilization - functional mobility HEP Given IE: HR/TR, SLS, step stretch, seated bolster extn stretch, quad set, SLR Balance/Gait/Functiona l tests Balance/Special Test Scores Lower Extremity Functional Score: 28 Tug Test: <10 sec.=free mobile WOMAC Total Score: 31 WOMAC Percentage: 67.7100 Goals Goals Goal 1:: Patient will be I with HEP and progression Goal Time Frame: 6-8 Weeks Goal 2:: Patient will ambulate <300 feet with normalized gait pattern and no AD Goal Time Frame: 6-8 Weeks Goal 3:: Patient will asc/desc 8 stairs recip with no HR Goal Time Frame: 6-8 Weeks Goal 4:: Patient will demo 0-120 degrees of ROM Goal Time Frame: 6-8 Weeks Goal 5:: Patient will SLR without assistance Goal Time Frame: 6-8 Weeks Goal 6:: Patient will report 80% improvement Goal Time Frame: 6-8 Weeks Anticipated Interventions Anticipated Interventions Patient/Client Instruction: Educate patient on: Benefits of Fitness Program Therapeutic Exercise to Include: Strength training, Endurance training, Balance training, Coordination, Agility training, Body mechanics, Postural training, Flexibilty training, Gait and locomotor training, Neuromotor development, Passive ROM, Active ROM, Dynamic Lumbar Stabilization and Scapular Strength/Stabilization For the Purpose of:: To improve muscle performance and motor function Functional Training to Include: Gait training Manual Therapy Techniques to Include: Passive ROM and Soft tissue mobilization TENS: Yes Cryotherapy (ice pack, ice massage): Yes Thermo therapy (hot pack): Yes Ultrasound (thermal/non thermal): No Re-Evaluation Ending Re-evaluation ending: Please do not hesitate to contact me at [phone] by phone or if you have questions or concerns regarding this new plan of care! Sincerely, Meghan Lopez, DPT 05/18/24 1530 CC: Tin West MD; Dr. Yennifer Johnson MD ELR Signed For Medicare only, by signing this I certify the plan of care. Physicians Signature Date Normal [facility] Bacteria identifiedon 2023 Bacteria identified Cx Nom (U) Test: Urine Culture Specimen Source: Clean Catch/Voided Specimen Type: Urine Specimen Date: 04/04/2024 1057 Result Date: 04/05/2024 1613 Result Status: Final result Abnormal: No Resulting Lab: [facility] [address] [place] [address] CULTURE No growth Normal [facility] Comment on above: Performed By: #### 6 30-4 #### CONNOR Grant ([id number]) [facility] ([facility]) [address] [place] [address] Basic metabolic 2000 panelon 04-04-2024 Anion gap [Moles/Vol] 10 mmol/L NINF - 19 mmol/L [facility] Calcium [Mass/Vol] 8.7 mg/dL 8.5 - 10. 4 mg/dL [facility] Chloride [Moles/Vol] 105 mmol/L 97 - 10 7 mmol/L [facility] CO2 [Moles/Vol] 24 mmol/L 24 - 31 mmol/L [facility] Creatinine [Mass/Vol] 0.70 mg/dL 0.40 - 1.60 mg/dL [facility] eGFR - PINF [facility] Comment on above: Calculations of perla mated GFR are performed using the 2020 CKD-EPI Study Refit equation without the race variable for the IDMS-Traceable creatinine methods. https://jasn.asnjournals.org/content/early/ASN.2020 942133 Glucose [Mass/Vol] 151 mg/dL High 65 - 99 mg/dL [facility] Interpretation and review of laboratory results Abnormal [facility] Potassium [Moles/Vol] 4.1 mmol/L 3.4 - 5.1 mmol/L [facility] Sodium [Moles/Vol] 139 mmol/L 133 - 145 mmol/L [facility] Urea nitrogen [Mass/Vol] 18 mg/dL 8 - 25 mg/dL [facility] Anion gap [Moles/Vol] 10 mmol/L Normal <=19 [facility] Comment on above: Performed By: #### 2 4321-2 #### RONAL Alvarez ([id number]) [facility] () [address] [place] [address] Calcium [Mass/Vol] 8.7 mg/dL Normal 8.5-10.4 [facility] Comment on above: Performed By: #### 2 4321-2 #### RONAL Alvarez ([id number]) [facility] () [address] [place] [address] Chloride [Moles/Vol] 105 mmol/L Normal 97-107 [facility] Comment on above: Performed By: #### 2 4321-2 #### RONAL Alvarez ([id number]) [facility] () [address] [place] [address] CO2 [Moles/Vol] 24 mmol/L Normal 24-31 [facility] Comment on above: Performed By: #### 2 4321-2 #### RONAL Alvarez (44912) [facility] () [address] [place] [address] Creatinine [Mass/Vol] 0.70 mg/dL Normal 0.40-1.60 [facility] Comment on above: Performed By: #### 2 4321-2 #### RONAL Alvarez (72045) [facility] () [address] [place] [address] GFR/1.73 sq M.predicted MDRD (S/P/Bld) [Vol rate/Area] mL/min/{1.73_m2} Normal >60 [facility] Comment on above: Result Comment: Calc ulations of estimated GFR are performed using the 2020 CKD-EPI Study Refit equation without the race variable for the IDMS-Traceable creatinine methods. https://jasn.asnjournals.org/content/early//ASN.2020 231483 Performed By: #### 2 4321-2 #### RONAL Alvarez ([id number]) [facility] () [address] [place] [address] Glucose [Mass/Vol] 151 mg/dL High 65-99 [facility] Comment on above: Performed By: #### 2 4321-2 #### RONAL Alvarez ([id number]) [facility] () [address] [place] [address] Potassium [Moles/Vol] 4.1 mmol/L Normal 3.4-5.1 [facility] Comment on above: Performed By: #### 2 4321-2 #### RONAL Alvarez (37538) [facility] () [address] [place] [address] Sodium [Moles/Vol] 139 mmol/L Normal 133-145 [facility] Comment on above: Performed By: #### 2 4321-2 #### RONAL Alavrez (04460) [facility] () [address] [place] [address] Urea nitrogen [Mass/Vol] 18 mg/dL Normal 8-25 [facility] Comment on above: Performed By: #### 2 4321-2 #### RONAL Alvarez (21711) [facility] () [address] [place] [address] CBC panel Auto (Bld)on 04-04 Erythrocyte distribution width (RBC) [Ratio] 12.0 % 11.5 - 14.5 % [facility] Hematocrit (Bld) [Volume fraction] 30.1 % Low 36.0 - 46.0 % [facility] Hemoglobin (Bld) [Mass/Vol] 10.5 g/dL Low 12.0 - 16.0 g/dL [facility] Interpretation and review of laboratory results Abnormal [facility] MCH (RBC) [Entitic mass] 29.9 pg 26.0 - 34.0 pg [facility] MCHC (RBC) [Mass/Vol] 34.9 g/dL 32.0 - 36.0 g/dL [facility] MCV (RBC) [Entitic vol] 86 fL 80 - 100 fL [facility] Nucleated RBC/100 WBC (Bld) [Ratio] 0.0 % [facility] Platelets (Bld) [#/Vol] 360 10*3/uL [facility] RBC (Bld) [#/Vol] 3.51 10*6/uL Low [facility] WBC (Bld) [#/Vol] 21.9 10*3/uL High [facility] Erythrocyte distribution width (RBC) [Ratio] 12.0 % Normal 11.5-14.5 [facility] Comment on above: Performed By: #### 5 8410-2 #### RONAL Alvarez ([id number]) [facility] () [address] [place] [address] Hematocrit (Bld) [Volume fraction] 30.1 % Low 36.0-46.0 [facility] Comment on above: Performed By: #### 5 8410-2 #### RONAL Alvarez (66866) [facility] () [address] [place] [address] Hemoglobin (Bld) [Mass/Vol] 10.5 g/dL Low 12.0-16.0 [facility] Comment on above: Performed By: #### 5 8410-2 #### RONAL Alvarez (49374) [facility] () [address] [place] [address] MCH (RBC) [Entitic mass] 29.9 pg Normal 26.0-34.0 [facility] Comment on above: Performed By: #### 5 8410-2 #### RONAL Alvarez (60892) [facility] () [address] [place] [address] MCHC (RBC) [Mass/Vol] 34.9 g/dL Normal 32.0-36.0 [facility] Comment on above: Performed By: #### 5 8410-2 #### RONAL Alvarez (43541) [facility] () [address] [place] [address] MCV (RBC) [Entitic vol] 86 fL Normal 80-[address] [facility] Comment on above: Performed By: #### 5 8410-2 #### RONAL Alvarez (75336) [facility] () [address] [place] [address] Nucleated RBC/100 WBC (Bld) [Ratio] 0.0 /100 WBCs Normal 0.0-0.0 [facility] Comment on above: Performed By: #### 5 8410-2 #### RONAL Alvraez (19772) [facility] () [address] [place] [address] Platelets (Bld) [#/Vol] 360 x10*3/uL Normal 150-450 [facility] Comment on above: Performed By: #### 5 8410-2 #### RONAL Alvarez (56487) [facility] () [address] [place] [address] RBC (Bld) [#/Vol] 3.51 x10*6/uL Low 4.00-5.20 [facility] Comment on above: Performed By: #### 5 8410-2 #### RONAL Alvarez (23396) [facility] () [address] [place] [address] WBC (Bld) [#/Vol] 21.9 x10*3/uL High 4.4-11.3 [facility] Comment on above: Performed By: #### 5 8410-2 #### RONAL Alvarez (61962) [facility] () [address] [place] [address] No Panel Informationon 04-04 Interpretation and review of laboratory results Abnormal [facility] Urinalysis complete W Reflex Culture panel (U)on 04-04-2024 Appearance (U) Clear Clear [facility] Bilirubin (U) [Mass/Vol] Negative NEGATIVE [facility] Color (U) Light-Yellow Light-Yello w, Yellow, Dark-Yellow [facility] Glucose Auto test strip (U) [Mass/Vol] Normal Normal mg/dL [facility] Ketones (U) [Mass/Vol] Negative NEGAT AMANDA mg/dL [facility] Leukocyte esterase Auto test strip Ql (U) 75 Angi/ L Abnormal NEGATIVE [facility] Nitrite Auto test strip Ql (U) Negative NEGATIVE [facility] pH (U) 5.5 [pH] 5.0, 5.5, 6.0, 6.5, 7.0, 7.5, 8.0 [facility] Protein (U) [Mass/Vol] Negative NEGAT AMANDA, 10 (TRACE), 20 (TRACE) mg/dL [facility] RBC (U) [#/Vol] 0.1 (1+) Abnormal NEGATIVE [facility] Specific gravity (U) [Rel density] 1.011 1.005 - 1.035 [facility] Urobilinogen (U) [Mass/Vol] Normal Normal mg/dL [facility] Appearance (U) Clear Normal Clear [facility] Comment on above: Performed By: #### 5 8077-9 #### RNOAL Alvarez (55144) [facility] () [address] [place] [address] Bilirubin (U) [Mass/Vol] Negative Normal NEGATIVE [facility] Comment on above: Performed By: #### 5 8077-9 #### RONAL Alvarez (43652) [facility] () [address] [place] [address] Color (U) Light-Yellow Normal Light-Yello w, Yellow, Dark-Yellow [facility] Comment on above: Performed By: #### 5 8077-9 #### RONAL Alvarez (99344) [facility] () [address] [place] [address] Glucose Auto test strip (U) [Mass/Vol] Normal Normal Normal [facility] Comment on above: Performed By: #### 5 8077-9 #### RONAL Alvarez (74424) [facility] () [address] [place] [address] Ketones (U) [Mass/Vol] Negative Normal NEGATIVE [facility] Comment on above: Performed By: #### 5 8077-9 #### RONAL Alvarez (15529) [facility] () [address] [place] [address] Leukocyte esterase Auto test strip Ql (U) 75 Angi/???L Abnormal NEGATIVE [facility] Comment on above: Performed By: #### 5 8077-9 #### RONAL Alvarez (56666) [facility] () [address] [place] [address] Nitrite Auto test strip Ql (U) Negative Normal NEGATIVE [facility] Comment on above: Performed By: #### 5 8077-9 #### RONAL Alvarez (42992) [facility] () [address] [place] [address] pH (U) 5.5 [pH] Normal 5.0, 5.5, 6.0, 6.5, 7.0, 7.5, 8.0 [facility] Comment on above: Performed By: #### 5 8077-9 #### RONAL Alvarez (15324) [facility] () [address] [place] [address] Protein (U) [Mass/Vol] Negative Normal NEGAT AMANDA, 10 (TRACE), 20 (TRACE) [facility] Comment on above: Performed By: #### 5 8077-9 #### RONAL Alvarez (09412) [facility] () [address] [place] [address] RBC (U) [#/Vol] 0.1 (1+) Abnormal NEGATIVE [facility] Comment on above: Performed By: #### 5 8077-9 #### RONAL Alvarez (62359) [facility] () [address] [place] [address] Specific gravity (U) [Rel density] 1.011 Normal 1.005-1.035 [facility] Comment on above: Performed By: #### 5 8077-9 #### RONAL Alvarez (99729) [facility] () [address] [place] [address] Urobilinogen (U) [Mass/Vol] Normal Normal Normal [facility] Comment on above: Performed By: #### 5 8077-9 #### RONAL Alvarez ([id number]) [facility] () [address] [place] [address] Urinalysis microscopic panel Auto Ql (U)on 04-04-2024 Epithelial cells.squamous Auto (Urine sed) [#/Area] 1-9 (SPARSE) Reference range not established . /HPF [facility] Mucus Auto (Urine sed) [#/Area] FEW Reference range not established . /LPF [facility] RBC Auto (Urine sed) [#/Area] 11-20 Abnormal NONE, 1-2, 3-5 /HPF [facility] WBC Auto (Urine sed) [#/Area] 6-10 Abnormal 1-5, NONE /HPF [facility] Epithelial cells.squamous Auto (Urine sed) [#/Area] 1-9 (SPARSE) Normal Reference range not established . [facility] Comment on above: Performed By: #### 5 3315-8 #### RONAL Alvarez (59068) [facility] () [address] [place] [address] Mucus Auto (Urine sed) [#/Area] FEW Normal Reference range not established . [facility] Comment on above: Performed By: #### 5 3315-8 #### RONAL FISHER T ([id number]) [facility] () [address] [place] [address] RBC Auto (Urine sed) [#/Area] 11-20 Abnormal NONE, 1-2, 3-5 [facility] Comment on above: Performed By: #### 5 3315-8 #### RONAL FISHER T (07811) [facility] () [address] [place] [address] WBC Auto (Urine sed) [#/Area] 6-10 Abnormal 1-5, NONE [facility] Comment on above: Performed By: #### 5 3315-8 #### RONAL LOCKTIE T (31995) [facility] () [address] [place] [address] XR CHEST 1 VIEWon 04-04-2024 XR CHEST 1 VIEW Interpreted By: Rafael Ibanez, STUDY: XR CHEST 1 VIEW; ; 04/04/2024 8:59 am INDICATION: Signs/Symptoms:leukocy tosis. COMPARISON: None. ACCESSION NUMBER(S): [id number] ORDERING CLINICIAN: KESHAWN STEVENSON TECHNIQUE: Single AP view chest FINDINGS: Cardiac silhouette is within normal limits. No infiltrate or effusion identified. Visualized osseous structures demonstrate glenohumeral joint osteoarthritis bilaterally. IMPRESSION: 1. No acute process MACRO: None Signed by: Rafael Shepard 04/04/2024 9:46 AM Dictation workstation: [id number] Normal [facility] XR Chest Single viewon 06-11 -2024 1. No acute process MACRO: None Signed by: Rafael Shepard 04/04/2024 9:46 AM Dictation workstation: [id number] [facility] Interpreted By: Rafael Ibanez, STUDY: XR CHEST 1 VIEW; ; 04/04/2024 8:59 am INDICATION: Signs/Symptoms:leukocy tosis. COMPARISON: None. ACCESSION NUMBER(S): [id number] ORDERING CLINICIAN: KESHAWN STEVENSON TECHNIQUE: Single AP view chest FINDINGS: Cardiac silhouette is within normal limits. No infiltrate or effusion identified. Visualized osseous structures demonstrate glenohumeral joint osteoarthritis bilaterally. [facility] Rafael Shepard MD - 04/04/2024 Interpreted By: Rafael Shepard, STUDY: XR CHEST 1 VIEW; ; 04/04/2024 8:59 am INDICATION: Signs/Symptoms:leukocy tosis. COMPARISON: None. ACCESSION NUMBER(S): [id number] ORDERING CLINICIAN: KESHAWN STEVENSON TECHNIQUE: Single AP view chest FINDINGS: Cardiac silhouette is within normal limits. No infiltrate or effusion identified. Visualized osseous structures demonstrate glenohumeral joint osteoarthritis bilaterally. IMPRESSION: 1. No acute process MACRO: None Signed by: Rafael Shepard 04/04/2024 9:46 AM Dictation workstation: [id number] [facility] Work Phone: Radiology Study observation (narrative) [facility] Work Phone: XR Chest Single viewOrdered By: Rafael Shepard on 04-04-2024 [facility] Work Phone: XR KNEE LEFT 1-2 VIEWSon XR KNEE LEFT 1-2 VIEWS Interpreted By: Herman Marquez, STUDY: XR KNEE LEFT 1-2 VIEWS; 04/03/2024 10:27 am INDICATION: Signs/Symptoms:Post-op knee. COMPARISON: None. ACCESSION NUMBER(S): [id number] ORDERING CLINICIAN: TIN WEST FINDINGS: Components of left knee arthroplasty are in anatomic alignment. Postoperative soft tissue gas. IMPRESSION: New left knee arthroplasty in anatomic alignment. MACRO: None Signed by: Herman Marquez 04/03/2024 11:33 AM Dictation workstation: [id number] [facility] Comment on above: Order Comment: AP an d Lateral view of (left) postoperative knee in PACU. XR Knee - left 1 or 2 Viewso n 04-03-2024 New left knee arthroplasty in anatomic alignment. MACRO: None Signed by: Herman Marquez 04/03/2024 11:33 AM Dictation workstation: [id number] [facility] Interpreted By: Herman Marquez, STUDY: XR KNEE LEFT 1-2 VIEWS; 04/03/2024 10:27 am INDICATION: Signs/Symptoms:Post-op knee. COMPARISON: None. ACCESSION NUMBER(S): [id number] ORDERING CLINICIAN: TIN WEST FINDINGS: Components of left knee arthroplasty are in anatomic alignment. Postoperative soft tissue gas. [facility] Herman Marquez MD - 04/03/2024 Interpreted By: Herman Marquez, STUDY: XR KNEE LEFT 1-2 VIEWS; 04/03/2024 10:27 am INDICATION: Signs/Symptoms:Post-op knee. COMPARISON: None. ACCESSION NUMBER(S): [id number] ORDERING CLINICIAN: TIN WEST FINDINGS: Components of left knee arthroplasty are in anatomic alignment. Postoperative soft tissue gas. IMPRESSION: New left knee arthroplasty in anatomic alignment. MACRO: None Signed by: Herman Marquez 04/03/2024 11:33 AM Dictation workstation: [id number] [facility] Work Phone: Radiology Study observation (narrative) [facility] Work Phone: XR Knee - left 1 or 2 ViewsO rdered By: Herman Marquez on 04-03-2024 [facility] Work Phone: Basic metabolic 2000 panelon 03-21-2024 Anion gap [Moles/Vol] 15 mmol/L Normal <=19 [facility] Comment on above: Performed By: #### 2 4321-2 #### RONAL Alvarez ([id number]) [facility] () [address] [place] [address] Calcium [Mass/Vol] 10.2 mg/dL Normal 8.5-10.4 [facility] Comment on above: Performed By: #### 2 4321-2 #### RONAL Alvarez ([id number]) [facility] () [address] [place] [address] Chloride [Moles/Vol] 103 mmol/L Normal 97-107 [facility] Comment on above: Performed By: #### 2 4321-2 #### RONAL Alvarez (15986) [facility] () [address] [place] [address] CO2 [Moles/Vol] 24 mmol/L Normal 24-31 [facility] Comment on above: Performed By: #### 2 4321-2 #### RONAL Alvarez (65934) [facility] () [address] [place] [address] Creatinine [Mass/Vol] 0.90 mg/dL Normal 0.40-1.60 [facility] Comment on above: Performed By: #### 2 4321-2 #### RONAL Alvarez (44783) [facility] () [address] [place] [address] Glomerular filtration rate/1.73 sq M.predicted 72 mL/min/1.73m*2 Normal >60 [facility] Comment on above: Result Comment: Calc ulations of estimated GFR are performed using the 2020 CKD-EPI Study Refit equation without the race variable for the IDMS-Traceable creatinine methods. https://jasn.asnjournals.org/content/early//ASN.2020 810343 Performed By: #### 2 4321-2 #### RONAL Alvarez (21078) [facility] () [address] [place] [address] Glucose [Mass/Vol] 84 mg/dL Normal 65-99 [facility] Comment on above: Performed By: #### 2 4321-2 #### RONAL Alvarez (06829) [facility] () [address] [place] [address] Potassium [Moles/Vol] 4.5 mmol/L Normal 3.4-5.1 [facility] Comment on above: Performed By: #### 2 4321-2 #### RONAL Alvarez (59423) [facility] () [address] [place] [address] Sodium [Moles/Vol] 142 mmol/L Normal 133-145 [facility] Comment on above: Performed By: #### 2 4321-2 #### RONAL Alvarez (59100) [facility] () [address] [place] [address] Urea nitrogen [Mass/Vol] 18 mg/dL Normal 8-25 [facility] Comment on above: Performed By: #### 2 4321-2 #### RONAL Alvarez (32325) [facility] () [address] [place] [address] CBC W Auto Differential pane l (Bld)on 03-21-2024 Basophils (Bld) [#/Vol] 0.07 x10*3/uL Normal 0.00-0.10 [facility] Comment on above: Performed By: #### 5 7021-8 #### RONAL Alvarez (53077) [facility] () [address] [place] [address] Basophils/100 WBC (Bld) 0.7 % Normal 0.0-2.0 [facility] Comment on above: Performed By: #### 5 7021-8 #### RONAL Alvarez (76904) [facility] () [address] [place] [address] Eosinophils (Bld) [#/Vol] 0.12 x10*3/uL Normal 0.00-0.70 [facility] Comment on above: Performed By: #### 5 7021-8 #### RONAL Alvarez (43452) [facility] () [address] [place] [address] Eosinophils/100 WBC (Bld) 1.2 % Normal 0.0-6.0 [facility] Comment on above: Performed By: #### 5 7021-8 #### RONAL Alvarez (06536) [facility] () [address] [place] [address] Erythrocyte distribution width (RBC) [Ratio] 12.3 % Normal 11.5-14.5 [facility] Comment on above: Performed By: #### 5 7021-8 #### RONAL Alvarez (90725) [facility] () [address] [place] [address] Hematocrit (Bld) [Volume fraction] 41.4 % Normal 36.0-46.0 [facility] Comment on above: Performed By: #### 5 7021-8 #### RONAL Alvarez (50930) [facility] () [address] [place] [address] Hemoglobin (Bld) [Mass/Vol] 13.5 g/dL Normal 12.0-16.0 [facility] Comment on above: Performed By: #### 5 7021-8 #### RONAL Alvarez (34347) [facility] () [address] [place] [address] Immature granulocytes (Bld) [#/Vol] 0.03 x10*3/uL Normal 0.00-0.70 [facility] Comment on above: Performed By: #### 5 7021-8 #### RONAL Alvarez (42324) [facility] () [address] [place] [address] Immature granulocytes/100 WBC (Bld) 0.3 % Normal 0.0-0.9 [facility] Comment on above: Result Comment: Анна ture Granulocyte Count (IG) includes promyelocytes, myelocytes and metamyelocytes but does not include bands. Percent differential counts (%) should be interpreted in the context of the absolute cell counts (cells/UL). Performed By: #### 5 7021-8 #### RONAL Alvarez (47342) [facility] () [address] [place] [address] Lymphocytes (Bld) [#/Vol] 2.15 x10*3/uL Normal 1.20-4.80 [facility] Comment on above: Performed By: #### 5 7021-8 #### RONAL Alvarez (84811) [facility] () [address] [place] [address] Lymphocytes/100 WBC (Bld) 21.7 % Normal 13.0-44.0 [facility] Comment on above: Performed By: #### 5 7021-8 #### RONAL Alvarez (01180) [facility] () [address] [place] [address] MCH (RBC) [Entitic mass] 29.3 pg Normal 26.0-34.0 [facility] Comment on above: Performed By: #### 5 7021-8 #### RONAL Alvarez (67510) [facility] () [address] [place] [address] MCHC (RBC) [Mass/Vol] 32.6 g/dL Normal 32.0-36.0 [facility] Comment on above: Performed By: #### 5 7021-8 #### RONAL Alvarez (07490) [facility] () [address] [place] [address] MCV (RBC) [Entitic vol] 90 fL Normal 80-100 [facility] Comment on above: Performed By: #### 5 7021-8 #### RONAL Alvarez (15431) [facility] () [address] [place] [address] Monocytes (Bld) [#/Vol] 0.76 x10*3/uL Normal 0.10-1.00 [facility] Comment on above: Performed By: #### 5 7021-8 #### RONAL Alvarez (63822) [facility] () [address] [place] [address] Monocytes/100 WBC (Bld) 7.7 % Normal 2.0-10.0 [facility] Comment on above: Performed By: #### 5 7021-8 #### RONAL Alvarez (00384) [facility] () [address] [place] [address] Neutrophils (Bld) [#/Vol] 6.78 x10*3/uL Normal 1.20-7.70 [facility] Comment on above: Result Comment: Perc ent differential counts (%) should be interpreted in the context of the absolute cell counts (cells/uL). Performed By: #### 5 7021-8 #### RONAL Alvarez (29889) [facility] () [address] [place] [address] Neutrophils/100 WBC (Bld) 68.4 % Normal 40.0-80.0 [facility] Comment on above: Performed By: #### 5 7021-8 #### RONAL Alvarez (01915) [facility] () [address] [place] [address] Nucleated RBC/100 WBC (Bld) [Ratio] 0.0 /100 WBCs Normal 0.0-0.0 [facility] Comment on above: Performed By: #### 5 7021-8 #### RONAL Alvarez (94350) [facility] () [address] [place] [address] Platelets (Bld) [#/Vol] 439 x10*3/uL Normal 150-450 [facility] Comment on above: Performed By: #### 5 7021-8 #### RONAL Alvarez (64366) [facility] () [address] [place] [address] RBC (Bld) [#/Vol] 4.60 x10*6/uL Normal 4.00-5.20 [facility] Comment on above: Performed By: #### 5 7021-8 #### RONAL Alvarez ([id number]) [facility] () [address] [place] [address] WBC (Bld) [#/Vol] 9.9 x10*3/uL Normal 4.4-11.3 [facility] Comment on above: Performed By: #### 5 7021-8 #### RONAL Alvarez ([id number]) [facility] () [address] [place] [address] Staphylococcus aureus.methic illin resistant isolateon 03-21-2024 MRSA isol Org specific cx Ql (Nose) Test: Staphylococcus aureus/MRSA colonization, Culture Specimen Source: Anterior Nares Specimen Type: Swab Specimen Date: 03/21/2024 1412 Result Date: 03/23/2024 0747 Result Status: Final result Abnormal: No Resulting Lab: [facility] [address] [place], [place] [id number] CULTURE No Staphylococcus aureus isolated Normal [facility] Comment on above: Performed By: #### 5 2969-3 #### CONNOR Grant ([id number]) [facility] ([facility]) [id number] [place] [id number] Urinalysis complete W Reflex Culture panel (U)on 03-21-2024 Appearance (U) Clear Normal Clear [facility] Comment on above: Performed By: #### 5 8077-9 #### RONAL Alvarez ([id number]) [facility] () [address] [place] [address] Bilirubin (U) [Mass/Vol] Negative Normal NEGATIVE [facility] Comment on above: Performed By: #### 5 8077-9 #### RONAL Alvarez ([id number]) [facility] () [address] [place] [address] Color (U) Light-Yellow Normal Light-Yello w, Yellow, Dark-Yellow [facility] Comment on above: Performed By: #### 5 8077-9 #### RONAL Alvarez ([id number]) [facility] () [address] [place] [address] Glucose Auto test strip (U) [Mass/Vol] Normal Normal Normal [facility] Comment on above: Performed By: #### 5 8077-9 #### RONAL Alvarez ([id number]) [facility] () [address] [place] [address] Ketones (U) [Mass/Vol] Negative Normal NE[facility]IVE [facility] Comment on above: Performed By: #### 5 8077-9 #### RONAL Alvarez ([id number]) [facility] () [address] [place] [address] Leukocyte esterase Auto test strip Ql (U) Negative Normal NEGATIVE [facility] Comment on above: Performed By: #### 5 8077-9 #### RONAL Alvarez ([id number]) [facility] () [address] [place] [address] Nitrite Auto test strip Ql (U) Negative Normal NEGATIVE [facility] Comment on above: Performed By: #### 5 8077-9 #### RONAL Alvarez ([id number]) [facility] () [address] [place] [address] pH (U) 5.5 [pH] Normal 5.0, 5.5, 6.0, 6.5, 7.0, 7.5, 8.0 [facility] Comment on above: Performed By: #### 5 8077-9 #### RONAL Alvarez ([id number]) [facility] () [address] [place] [address] Protein (U) [Mass/Vol] Negative Normal NEGAT AMANDA, 10 (TRACE), 20 (TRACE) [facility] Comment on above: Performed By: #### 5 8077-9 #### RONAL Alvarez ([id number]) [facility] () [address] [place] [address] RBC (U) [#/Vol] Negative Normal NEGATIVE [facility] Comment on above: Performed By: #### 5 8077-9 #### RONAL Alvarez ([id number]) [facility] () [address] [place] [address] Specific gravity (U) [Rel density] 1.016 Normal 1.005-1.035 [facility] Comment on above: Performed By: #### 5 8077-9 #### RONAL Alvarez ([id number]) [facility] () [address] [place] [address] Urobilinogen (U) [Mass/Vol] Normal Normal Normal [facility] Comment on above: Performed By: #### 5 8077-9 #### RONAL Alvarez ([id number]) [facility] () [address] [place] [address] Absolute lymphocyte countOrd ered By: Karlie Johnson on 12-16-2023 Lymphocytes Auto (Unsp spec) [#/Vol] 2.10 10*3/uL 0.83-4.51 [facility] Automated lymphocyte count a s percentage of total leukocytesOrdered By: Karlie Johnson on 12-16-2023 Lymphocytes/100 WBC Auto (Unsp spec) 20.1 % 19-41 [facility] Basophil percentageOrdered B y: Karlie Johnson on 12-16-2023 Basophils/100 WBC (Bld) 0.9 % 0-1 [facility] Chloride [Moles/Vol] 107 mmol/L 98-[address] [facility] [address] [facility] Eosinophils/100 WBC (Bld) 3.5 % 0-5 [facility] Glucose [Mass/Vol] 95 mg/dL 74-106 [facility] Hemoglobin (Bld) [Mass/Vol] 12.4 g/dL 12.0-15.0 [facility] Monocytes/100 WBC (Bld) 8.6 % 0-10 [facility] Neutrophils (Bld) [#/Vol] 6.9 10*3/uL 2.0-7.7 [facility] Neutrophils/100 WBC (Bld) 66.1 % 47-70 [facility] Potassium [Moles/Vol] 3.6 mmol/L 3.5-5.1 [facility] Sodium [Moles/Vol] 141 mmol/L 136-145 [facility] WBC (Bld) [#/Vol] 10.4 10*3/uL 4.4-11.0 [facility] Determination of erythrocyte mean corpuscular volume (MCV)Ordered By: Karlie Johnson on 12-16-2023 MCV (RBC) [Entitic vol] 90.7 fL 81-99 [facility] Erythrocyte distribution wid th ratioOrdered By: Karlie Johnson on 12-16-2023 Erythrocyte distribution width (RBC) [Ratio] 12.6 % 11.6-14.6 [facility] Erythrocyte distribution wid th standard deviationOrdered By: Karlie Johnson on 12-16-2023 Erythrocyte distribution width (RBC) [Entitic vol] 41.3 fL 35.1-43.9 [facility] Hematocrit Auto (Bld) [Volum e fraction]Ordered By: Karlie Johnson on 12-16-2023 Hematocrit (Bld) [Volume fraction] 38.9 % 37-47 [facility] Immature granulocytes/100 WB C Auto (Bld)Ordered By: Karlie Johnson on 12-16-2023 Immature granulocytes/100 WBC (Bld) 0.800 % 0.0-0.9 [facility] Comment on above: IG% - Immature Granu locytes (promyelocytes, myelocytes and metamyelocytes) > 1% indicates that a LEFT SHIFT is Present. Laboratory - Chemistry and C hemistry - challengeOrdered By: Karlie Johnson on 12-16-2023 CO2 [Moles/Vol] 29.0 mmol/L 21.0-32.0 [facility] Magnesium [Mass/Vol] 2.5 mg/dL 1.6-2.6 [facility] Urea nitrogen/Creatinine [Mass ratio] 17.3 mg/mg 10-20 [facility] Laboratory - Hematology and Cell countsOrdered By: Karlie Johnson on 12-16-2023 MCH (RBC) [Entitic mass] 28.9 pg 27.0-32.0 [facility] MCHC (RBC) [Mass/Vol] 31.9 g/dL 32-36 [facility] Nucleated RBC/100 WBC (Bld) [Ratio] 0 % 0-5 [facility] Platelet mean volume (Bld) [Entitic vol] 9.8 fL 6.2-12.0 [facility] Platelets (Bld) [#/Vol] 453 10*3/uL 150-450 [facility] No Panel InformationOrdered By: Karlie Johnson on 12-16-2023 Estimated GFR (MDRD) Amer 85 mL/min >60 [facility] Comment on above: GFR Calc Estimated GFR (MDRD) Non-Af Amer 70 mL/min >60 [facility] Comment on above: Non- GFR Calc Free Triiodothyronine (T3) pg/dL 2.3 pg/mL 2.18-3.98 [facility] RBC Auto (Bld) [#/Vol]Ordere d By: Karlie Johnson on 12-16-2023 RBC (Bld) [#/Vol] 4.29 10*6/uL 4.2-5.4 [facility] Serum or plasma calcium kyree urement (mass/volume)Ordered By: Karlie Johnson on 12-16-2023 Calcium [Mass/Vol] 9.3 mg/dL 8.5-10.1 [facility] Serum or plasma creatinine m easurement (mass/volume)Ordered By: Karlie Johnson on 12-16-2023 Creatinine [Mass/Vol] 0.87 mg/dL 0.55-1.02 [facility] Comment on above: The validity of the calculated GFR & GFRAA in patients over 70 years has not been determined. Clinical correlation is essential. Serum or plasma thyroid stim ulating hormone (TSH) measurement (units/volume)Ordered By: Karlie Jhonson on 12-16-2023 TSH Qn 1.76 uIU/mL 0.358-3.74 [facility] Serum or plasma urea nitroge n measurement (mass/volume)Ordered By: Karlie Johnson on 12-16-2023 Urea nitrogen [Mass/Vol] 15 mg/dL 7-18 [facility] Thin prep Papanicolaou smear with manual screeningOrdered By: Karlie Johnson on 12-16-2023 Thin prep Papanicolaou smear with manual screening 5 5-15 [facility] Thin prep Papanicolaou smear with manual screening 1.10 ng/dL 0.76-1.46 [facility] Laboratory - Microbiology an d Antimicrobial susceptibilityon 10-06-2023 SARS-CoV-2 (COVID-19) RNA NEIL+probe Ql (Unsp spec) Detected [facility] No Panel Informationon 10-06 Influenza Types A,B Rapid (Clinic) Not detected [facility] Absolute lymphocyte countOrd ered By: Yennifer Johnson on 09-27-2023 Lymphocytes Auto (Unsp spec) [#/Vol] 1.81 10*3/uL 0.83-4.51 [facility] Basophil percentageOrdered B y: Yennifer Johnson on 09-27-2023 Basophils/100 WBC (Bld) 0.6 % 0-1 [facility] Chloride [Moles/Vol] 106 mmol/L 98-107 [facility] Eosinophils/100 WBC (Bld) 1.4 % 0-5 [facility] Glucose [Mass/Vol] 90 mg/dL 74-106 [facility] Neutrophils (Bld) [#/Vol] 8.1 10*3/uL 2.0-7.7 [facility] Neutrophils/100 WBC (Bld) 73.3 % 47-70 [facility] Potassium [Moles/Vol] 3.8 mmol/L 3.5-5.1 [facility] Sodium [Moles/Vol] 139 mmol/L 136-145 [facility] WBC (Bld) [#/Vol] 11.0 10*3/uL 4.4-11.0 [facility] Blood erythrocytes count (nu mber/volume)Ordered By: Yennifer Johnson on 09-27-2023 RBC (Bld) [#/Vol] 4.37 10*6/uL 4.2-5.4 [facility] Blood hemoglobin measurement (mass/volume)Ordered By: Yennifer Johnson on 09-27-2023 Hemoglobin (Bld) [Mass/Vol] 12.9 g/dL 12.0-15.0 [facility] Blood lymphocytes/100 leukoc ytesOrdered By: Yennifer Johnson on 09-27-2023 Lymphocytes/100 WBC (Bld) 16.5 % 19-41 [facility] Blood monocytes/100 leukocyt esOrdered By: Yennifer Johnson on 09-27-2023 Monocytes/100 WBC (Bld) 7.7 % 0-10 [facility] Blood platelet mean volumeOr dered By: Yennifer Johnson on 09-27-2023 Platelet mean volume (Bld) [Entitic vol] 10.3 fL 6.2-12.0 [facility] Determination of erythrocyte mean corpuscular volume (MCV)Ordered By: Yennifer Johnson on 09-27-2023 MCV (RBC) [Entitic vol] 90.4 fL 81-99 [facility] Hematocrit Auto (Bld) [Volum e fraction]Ordered By: Yennifer Johnson on 09-27-2023 Hematocrit (Bld) [Volume fraction] 39.5 % 37-47 [facility] Laboratory - Chemistry and C hemistry - challengeOrdered By: Yennifer Johnson on 09-27-2023 CO2 [Moles/Vol] 24.0 mmol/L 21.0-32.0 [facility] Urea nitrogen/Creatinine [Mass ratio] 20.6 mg/mg 10-20 [facility] Laboratory - Hematology and Cell countsOrdered By: Yennifer Johnson on 09-27-2023 Erythrocyte distribution width (RBC) [Entitic vol] 39.6 fL 35.1-43.9 [facility] Erythrocyte distribution width (RBC) [Ratio] 11.9 % 11.6-14.6 [facility] Immature granulocytes/100 WBC (Bld) 0.500 % 0.0-0.9 [facility] Comment on above: IG% - Immature Granu locytes (promyelocytes, myelocytes and metamyelocytes) > 1% indicates that a LEFT SHIFT is Present. MCH (RBC) [Entitic mass] 29.5 pg 27.0-32.0 [facility] Nucleated RBC/100 WBC (Bld) [Ratio] 0 % 0-5 [facility] MCHC Auto (RBC) [Mass/Vol]Or dered By: Yennifer Johnson on 09-27-2023 MCHC (RBC) [Mass/Vol] 32.7 g/dL 32-36 [facility] No Panel InformationOrdered By: Yennifer Johnson on 09-27-2023 Estimated GFR (MDRD) Amer 97 mL/min >60 [facility] Comment on above: GFR Calc Estimated GFR (MDRD) Non-Af Amer 80 mL/min >60 [facility] Comment on above: Non- GFR Calc Platelets bldOrdered By: Lokesh Johnson on 09-27-2023 Platelets (Bld) [#/Vol] 452 10*3/uL 150-450 [facility] Serum or plasma calcium kyree urement (mass/volume)Ordered By: Yennifer Johnson on 09-27-2023 Calcium [Mass/Vol] 9.4 mg/dL 8.5-10.1 [facility] Serum or plasma creatinine m easurement (mass/volume)Ordered By: Yennifer Johnson on 09-27-2023 Creatinine [Mass/Vol] 0.78 mg/dL 0.55-1.02 [facility] Comment on above: The validity of the calculated GFR & GFRAA in patients over 70 years has not been determined. Clinical correlation is essential. Serum or plasma urea nitroge n measurement (mass/volume)Ordered By: Yennifer Johnson on 09-27-2023 Urea nitrogen [Mass/Vol] 16 mg/dL 7-18 [facility] Thin prep Papanicolaou smear with manual screeningOrdered By: Yennifer Johnson on 09-27-2023 Thin prep Papanicolaou smear with manual screening 9 5-15 [facility] Basophil percentageOrdered B y: Karlie Johnson on 07-03-2023 Bilirubin [Mass/Vol] 0.40 mg/dL 0.20-1.00 [facility] Comment on above: For patients on eltr ombopag therapy, use of [employer] TBIL is not recommended. Cholesterol [Mass/Vol] 153 mg/dL <200 [facility] Comment on above: <200 mg/dL Desirable 200-240 mg/dL Borderline >240 mg/dL High Risk Protein [Mass/Vol] 7.6 g/dL 6.4-8.2 [facility] Triglyceride [Mass/Vol] 81 mg/dL <199 [facility] Comment on above: The drugs N-Acetylcy steine and Metamizole may falsely depress this assay.Serum Triglycerides Reference Interval Normal <150 mg/dL Borderline high 150 - 199 mg/dL High 200 - 499 mg/dL Very High > or = 500 mg/dL Direct bilirubinOrdered By: Karlie Johnson on 07-03-2023 Bilirubin.direct [Mass/Vol] 0.14 mg/dL 0.00-0.30 [facility] Laboratory - Chemistry and C hemistry - challengeOrdered By: Karlie Johnson on 07-03-2023 ALP [Catalytic activity/Vol] 79 U/L 45-117 [facility] ALT [Catalytic activity/Vol] 20 U/L 13-56 [facility] Globulin (S) [Mass/Vol] 3.8 g/dL 2.2-4.2 [facility] Serum or plasma albumin kyree urement (mass/volume)Ordered By: Karlie Johnson on 07-03-2023 Albumin [Mass/Vol] 3.8 g/dL 3.2-5.0 [facility] Serum or plasma cholesterol in HDL measurement (mass/volume)Ordered By: Karlie Johnson on 07-03-2023 Cholesterol in HDL [Mass/Vol] 53 mg/dL >40 [facility] Comment on above: The drugs N-Acetylcy steine and Metamizole may falsely depress this assay. Reference Range HDL <40 mg/dL Low HDL Cholesterol HDL >or= 60 mg/dL High HDL Cholesterol Serum or plasma cholesterol in VLDL measurement (mass/volume)Ordered By: Karlie Johnson on 07-03-2023 Cholesterol in VLDL [Mass/Vol] 16 mg/dL 5-40 [facility] Serum or plasma low density lipoprotein (LDL) cholesterol measurement (mass/volume)Ordered By: Karlie Johnson on 07-03-2023 Cholesterol in LDL [Mass/Vol] 84 mg/dL 0-130 [facility] Thin prep Papanicolaou smear with manual screeningOrdered By: Karlie Johnson on 07-03-2023 Thin prep Papanicolaou smear with manual screening 15 U/L 15-37 [facility] Basophil percentageOrdered B y: Dr. Lopez on 03-16-2023 Bilirubin [Mass/Vol] 0.30 mg/dL 0.20-1.00 [facility] Comment on above: For patients on eltr ombopag therapy, use of [employer] TBIL is not recommended. Cholesterol [Mass/Vol] 179 mg/dL <200 [facility] Comment on above: <200 mg/dL Desirable 200-240 mg/dL Borderline >240 mg/dL High Risk Protein [Mass/Vol] 7.8 g/dL 6.4-8.2 [facility] Triglyceride [Mass/Vol] 62 mg/dL <199 [facility] Comment on above: The drugs N-Acetylcy steine and Metamizole may falsely depress this assay.Serum Triglycerides Reference Interval Normal <150 mg/dL Borderline high 150 - 199 mg/dL High 200 - 499 mg/dL Very High > or = 500 mg/dL Direct bilirubinOrdered By: Dr. Lopez on 03-16-2023 Bilirubin.direct [Mass/Vol] 0.12 mg/dL 0.00-0.30 [facility] Laboratory - Chemistry and C hemistry - challengeOrdered By: Dr. Lopez on 03-16-2023 ALP [Catalytic activity/Vol] 88 U/L 45-117 [facility] ALT [Catalytic activity/Vol] 22 U/L 13-56 [facility] Globulin (S) [Mass/Vol] 4.0 g/dL 2.2-4.2 [facility] Serum or plasma albumin kyree urement (mass/volume)Ordered By: Dr. Lopez on 03-16-2023 Albumin [Mass/Vol] 3.8 g/dL 3.2-5.0 [facility] Serum or plasma cholesterol in HDL measurement (mass/volume)Ordered By: Dr. Lopez on 03-16-2023 Cholesterol in HDL [Mass/Vol] 66 mg/dL >40 [facility] Comment on above: The drugs N-Acetylcy steine and Metamizole may falsely depress this assay. Reference Range HDL <40 mg/dL Low HDL Cholesterol HDL >or= 60 mg/dL High HDL Cholesterol Serum or plasma cholesterol in VLDL measurement (mass/volume)Ordered By: Dr. Lopez on 03-16-2023 Cholesterol in VLDL [Mass/Vol] 12 mg/dL 5-40 [facility] Serum or plasma low density lipoprotein (LDL) cholesterol measurement (mass/volume)Ordered By: Dr. Lopez on 03-16-2023 Cholesterol in LDL [Mass/Vol] 101 mg/dL 0-130 [facility] Thin prep Papanicolaou smear with manual screeningOrdered By: Dr. Lopez on 03-16-2023 Thin prep Papanicolaou smear with manual screening 17 U/L 15-37 [facility] Basophil percentageOrdered B y: Dr. Lopez on 10-31-2022 Bilirubin [Mass/Vol] 0.50 mg/dL 0.20-1.00 [facility] Comment on above: For patients on eltr ombopag therapy, use of [employer] TBIL is not recommended. Cholesterol [Mass/Vol] 176 mg/dL <200 [facility] Comment on above: <200 mg/dL Desirable 200-240 mg/dL Borderline >240 mg/dL High Risk Protein [Mass/Vol] 7.6 g/dL 6.4-8.2 [facility] Triglyceride [Mass/Vol] 88 mg/dL <199 [facility] Comment on above: The drugs N-Acetylcy steine and Metamizole may falsely depress this assay.Serum Triglycerides Reference Interval Normal <150 mg/dL Borderline high 150 - 199 mg/dL High 200 - 499 mg/dL Very High > or = 500 mg/dL Direct bilirubinOrdered By: Dr. Lopez on 10-31-2022 Bilirubin.direct [Mass/Vol] 0.10 mg/dL 0.00-0.30 [facility] Laboratory - Chemistry and C hemistry - challengeOrdered By: Dr. Lopez on 10-31-2022 ALP [Catalytic activity/Vol] 82 U/L 45-117 [facility] ALT [Catalytic activity/Vol] 22 U/L 13-56 [facility] Globulin (S) [Mass/Vol] 3.7 g/dL 2.2-4.2 [facility] Serum or plasma albumin kyree urement (mass/volume)Ordered By: Dr. Lopez on 10-31-2022 Albumin [Mass/Vol] 3.9 g/dL 3.2-5.0 [facility] Serum or plasma cholesterol in HDL measurement (mass/volume)Ordered By: Dr. Lopez on 10-31-2022 Cholesterol in HDL [Mass/Vol] 68 mg/dL >40 [facility] Comment on above: The drugs N-Acetylcy steine and Metamizole may falsely depress this assay. Reference Range HDL <40 mg/dL Low HDL Cholesterol HDL >or= 60 mg/dL High HDL Cholesterol Serum or plasma cholesterol in VLDL measurement (mass/volume)Ordered By: Dr. Lopez on 10-31-2022 Cholesterol in VLDL [Mass/Vol] 18 mg/dL 5-40 [facility] Serum or plasma low density lipoprotein (LDL) cholesterol measurement (mass/volume)Ordered By: Dr. Lopez on 10-31-2022 Cholesterol in LDL [Mass/Vol] 90 mg/dL 0-130 [facility] Thin prep Papanicolaou smear with manual screeningOrdered By: Dr. Lopez on 10-31-2022 Thin prep Papanicolaou smear with manual screening 12 U/L 15-37 [facility] Absolute lymphocyte counton 06-24-2022 Lymphocytes Auto (Unsp spec) [#/Vol] 2.61 10*3/uL 0.83-4.51 [facility] Work Phone: Basophil percentageon 2021 Basophils/100 WBC (Bld) 0.7 % 0-1 [facility] Work Phone: Chloride [Moles/Vol] 107 mmol/L 98-107 [facility] Work Phone: Eosinophils/100 WBC (Bld) 2.0 % 0-5 [facility] Work Phone: Glucose [Mass/Vol] 81 mg/dL 74-106 [facility] Work Phone: Neutrophils (Bld) [#/Vol] 6.7 10*3/uL 2.0-7.7 [facility] Work Phone: Neutrophils/100 WBC (Bld) 62.6 % 47-70 [facility] Work Phone: Potassium [Moles/Vol] 3.5 mmol/L 3.5-5.1 [facility] Work Phone: [phone] Sodium [Moles/Vol] 142 mmol/L 136-145 [facility] Work Phone: [phone] WBC (Bld) [#/Vol] 10.8 10*3/uL 4.4-11.0 [facility] Work Phone: [phone] Blood erythrocytes count (nu mber/volume)on 06-24-2022 RBC (Bld) [#/Vol] 4.27 10*6/uL 4.2-5.4 [facility] Work Phone: [phone] Blood hemoglobin measurement (mass/volume)on 06-24-2022 Hemoglobin (Bld) [Mass/Vol] 13.0 g/dL 12.0-15.0 [facility] Work Phone: [phone] Blood lymphocytes/100 leukoc yteson 06-24-2022 Lymphocytes/100 WBC (Bld) 24.3 % 19-41 [facility] Work Phone: [phone] Blood monocytes/100 leukocyt eson 06-24-2022 Monocytes/100 WBC (Bld) 9.7 % 0-10 [facility] Work Phone: [phone] Blood platelet mean volumeon 06-24-2022 Platelet mean volume (Bld) [Entitic vol] 10.1 fL 6.2-12.0 [facility] Work Phone: [phone] Determination of erythrocyte mean corpuscular volume (MCV)on 06-24-2022 MCV (RBC) [Entitic vol] 92.3 fL 81-99 [facility] Work Phone: [phone] Hematocrit Auto (Bld) [Volum e fraction]on 06-24-2022 Hematocrit (Bld) [Volume fraction] 39.4 % 37-47 [facility] Work Phone: Laboratory - Chemistry and C hemistry - challengeon 06-24-2022 CO2 [Moles/Vol] 31.0 mmol/L 21.0-32.0 [facility] Work Phone: [phone] Magnesium [Mass/Vol] 2.4 mg/dL 1.6-2.6 [facility] Work Phone: [phone] Urea nitrogen/Creatinine [Mass ratio] 18.8 mg/mg 10-20 [facility] Work Phone: [phone] Laboratory - Hematology and Cell countson 06-24-2022 Erythrocyte distribution width (RBC) [Entitic vol] 41.0 fL 35.1-43.9 [facility] Work Phone: [phone] Erythrocyte distribution width (RBC) [Ratio] 12.2 % 11.6-14.6 [facility] Work Phone: [phone] Immature granulocytes/100 WBC (Bld) 0.700 % 0.0-0.9 [facility] Work Phone: [phone] Comment on above: IG% - Immature Granu locytes (promyelocytes, myelocytes and metamyelocytes) > 1% indicates that a LEFT SHIFT is Present. MCH (RBC) [Entitic mass] 30.4 pg 27.0-32.0 [facility] Work Phone: [phone] Nucleated RBC/100 WBC (Bld) [Ratio] 0 % 0-5 [facility] Work Phone: [phone] MCHC Auto (RBC) [Mass/Vol]on 06-24-2022 MCHC (RBC) [Mass/Vol] 33.0 g/dL 32-36 [facility] Work Phone: [phone] Panel Informationon 06-24 Estimated GFR (MDRD) Amer 81 mL/min >60 [facility] Work Phone: [phone] Comment on above: GFR Calc Estimated GFR (MDRD) Non-Af Amer 67 mL/min >60 [facility] Work Phone: [phone] Comment on above: Non- GFR Calc Platelets bldon 06-24-2022 Platelets (Bld) [#/Vol] 433 10*3/uL 150-450 [facility] Work Phone: [phone] Serum or plasma calcium kyree urement (mass/volume)on 06-24-2022 Calcium [Mass/Vol] 9.7 mg/dL 8.5-10.1 [facility] Work Phone: Serum or plasma creatinine m easurement (mass/volume)on 06-24-2022 Creatinine [Mass/Vol] 0.90 mg/dL 0.55-1.02 [facility] Work Phone: Comment on above: The validity of the calculated GFR & GFRAA in patients over 70 years has not been determined. Clinical correlation is essential. Serum or plasma urea nitroge n measurement (mass/volume)on 06-24-2022 Urea nitrogen [Mass/Vol] 17 mg/dL 7-18 [facility] Work Phone: Thin prep Papanicolaou smear with manual screeningon 06-24-2022 Thin prep Papanicolaou smear with manual screening 4 5-15 [facility] Work Phone: Laboratory - Chemistry and C hemistry - challengeon 06-09-2022 Cobalamin (Vitamin B12) [Mass/Vol] 362 pg/mL 211-911 [facility] Work Phone: Free T4 [Mass/Vol] 1.10 ng/dL 0.76-1.46 [facility] Work Phone: No Panel Informationon 06-09 Thyroid Stimulating Hormone (TSH) 1.73 uIU/mL 0.358-3.74 [facility] Work Phone: Basophil percentageon 2021 Bilirubin [Mass/Vol] 0.40 mg/dL 0.20-1.00 [facility] Work Phone: Comment on above: For patients on eltr ombopag therapy, use of [employer] TBIL is not recommended. Cholesterol [Mass/Vol] 162 mg/dL <200 [facility] Work Phone: Comment on above: <200 mg/dL Desirable 200-240 mg/dL Borderline >240 mg/dL High Risk Protein [Mass/Vol] 7.2 g/dL 6.4-8.2 [facility] Work Phone: Triglyceride [Mass/Vol] 85 mg/dL <199 [facility] Work Phone: Comment on above: The drugs N-Acetylcy steine and Metamizole may falsely depress this assay.Serum Triglycerides Reference Interval Normal <150 mg/dL Borderline high 150 - 199 mg/dL High 200 - 499 mg/dL Very High > or = 500 mg/dL Direct bilirubinon Bilirubin.direct [Mass/Vol] 0.10 mg/dL 0.00-0.30 [facility] Work Phone: Laboratory - Chemistry and C hemistry - challengeon 05-15-2022 ALP [Catalytic activity/Vol] 80 U/L 45-117 [facility] Work Phone: ALT [Catalytic activity/Vol] 19 U/L 13-56 [facility] Work Phone: Globulin (S) [Mass/Vol] 3.6 g/dL 2.2-4.2 [facility] Work Phone: [phone] Serum or plasma albumin kyree urement (mass/volume)on 05-15-2022 Albumin [Mass/Vol] 3.6 g/dL 3.2-5.0 [facility] Work Phone: Serum or plasma cholesterol in HDL measurement (mass/volume)on 05-15-2022 Cholesterol in HDL [Mass/Vol] 56 mg/dL >40 [facility] Work Phone: Comment on above: The drugs N-Acetylcy steine and Metamizole may falsely depress this assay. Reference Range HDL <40 mg/dL Low HDL Cholesterol HDL >or= 60 mg/dL High HDL Cholesterol Serum or plasma cholesterol in VLDL measurement (mass/volume)on 05-15-2022 Cholesterol in VLDL [Mass/Vol] 17 mg/dL 5-40 [facility] Work Phone: [phone] Serum or plasma low density lipoprotein (LDL) cholesterol measurement (mass/volume)on 05-15-2022 Cholesterol in LDL [Mass/Vol] 89 mg/dL 0-130 [facility] Work Phone: Thin prep Papanicolaou smear with manual screeningon 05-15-2022 Thin prep Papanicolaou smear with manual screening 13 U/L 15-37 [facility] Work Phone: CNPAnn Marie 05-22-2020 [facility] Telephone ([facility]) KEIRALEEANN Rudy ([id number]) 1960 F Date Time Provider Department 05/22/20 NUSRAT HOLLAND [facility] During your visit today, we recorded the following information about you: Sara Daviselver ELIZALDE 05/22/2020 11:01 AM Signed Patient calling was in urgent care 05/19 and put on bactrim rx. Patient said she has been sick Wednesday and Wednesday lightheaded, nausea, almost going to ER. Patient stopped taking the bactrim rx not taken any today. Patient asking if rx needs changed? Patient uses [facility] [place] for her pharmacy. Please advise Leeroy Toney MD 05/22/2020 11:58 AM Signed The urine culture is showing an infection with a bacteria that should respond to the bactrim prescribed. Since she is not feeling well, I will send in a different antibiotic. If she continues to have bad or worsening symptoms, then go to the ER. Leeann Samson LPN 05/22/2020 1:56 PM Signed Patient notified and verbalized understanding of instructions given.Leeann Samson LPN Allergies As of Date: 05/22/2020 Noted Allergy Reaction BEES 04/14/2006 10 - Anaphylaxis CODEINE 01/12/2006 CRESTOR (ROSUVASTATIN CALCIUM) 05/26/2007 Comments: myalgia DARVOCET A500 (PROPOXYPHENE N-JAY*01/12/2006 DUST 01/12/2006 GRASS POLLEN 01/12/2006 LIPITOR (ATORVASTATIN CALCIUM) 01/27/2006 5 - Intolerance Comments: MUSCLE ACHE MOLD 01/12/2006 NIASPAN (NIACIN (ANTIHYPERLIPIDEM*08/2 04/2007 2 - Rash 4 - Hives 7 - Swelling Comments: SWELLING OF TOUNGE PERCOCET (OXYCODONE-ACETAMINOPH EN)01/12/2006 SERTRALINE 01/02/2010 WASPS 04/14/2006 10 - Anaphylaxis Date Reviewed: 05/19/2020 Reviewed by: Nusrat Holland - Fully Assessed Reason for Visit: Medication Problem [65] Cmt: nausea Order(s):cephALEXin (KEFLEX) 500 mg capsuleTake 1 capsule by mouth twice daily for 5 days.Disp: 10 capsuleRfl: 0 Prescriptions as of 05/22/2020 Sig: CEPHALEXIN 500 MG CAPSULE Take 1 capsule by mouth twice* SULFAMETHOXAZOLE 800 MG-TRIME* Take 1 tablet by mouth twice * LORAZEPAM 1 MG TABLET Take 1 tablet by mouth as nee* EPINEPHRINE 0.3 MG/0.3 ML INJ* Inject 0.3 mL subcutaneously * MOMETASONE-FORMOTEROL HFA 100* Inhale 2 Puffs as instructed * MONTELUKAST 10 MG TABLET Take 1 tablet by mouth daily * ALBUTEROL SULFATE 2.5 MG/3 ML* Use 3 mL via nebulizer every * ALBUTEROL SULFATE HFA 90 MCG/* Inhale 2 Puffs as instructed * ALBUTEROL SULFATE 2.5 MG/3 ML* Use 3 mL via nebulizer every * CONJUGATED ESTROGENS 0.625 MG* Take 1 tablet by mouth once d* BENADRYL 25 MG CAPSULE Take one capsule every 6 hour* ADULT LOW DOSE ASPIRIN 81 MG * Take one(1) tablet daily. ZYRTEC 10 MG TABLET Take one(1) tablet daily. Problem List As Of Date 05/22/2020 Noted Resolved PANIC DISORDER WITHOUT AGORAPHOBIA [F41.0] ASTHMA UNSPECIFIED [J45.909] 01/13/2006 ESOPHAGEAL REFLUX [K21.9] 08/19/2007 HIATAL HERNIA [K44.9] 09/20/2007 HYPERLIPIDEMIA NEC/NOS [E78.5] 11/22/2008 Abdominal pain, unspecified site [R10.9] 08/21/2010 Hiatal hernia [K44.9] 09/12/2010 Gastritis [K29.70] 09/12/2010 Celiac disease [K90.0] 09/29/2010 Arthritis of both knees [M17.0] 10/12/2012 Menopause [Z78.0] 10/12/2012 Obesity [E66.9] 10/12/2012 Prescriptions ordered this encounter Disp Refills Start End CEPHALEXIN 500 MG CAPSULE 10 c* 0 05/22/2020 05/27/2020 Route: ORAL Sig: Take 1 capsule by mouth twice daily for 5 days. Encounter Status:Closed by LEEANN SAMSON LPN on 05/22/20 [facility] CNOVon 05-19-2020 CNOV Office Visit ([facility] ) LEEANN CROCKETT ([id number]) 1960 F Date Time Provider Department 05/19/20 8:15 AM NUSRAT HOLLAND [facility] During your visit today, we recorded the following information about you: Temperature Pulse Respiration Blood pressure 98.6 degrees 102/minute 16/minute 108/82 Weight 74.1 kg Nusrat Holland APRN.DRAWER MAKER 05/19/2020 8:46 AM Signed ASSESSMENT/PLAN: 1. Right flank pain - ICD9: 789.09, ICD10: R10.9 (primary - UA DIP, URINE (POC) - URINE CULTURE 2. Acute lower UTI - ICD9: 599.0, ICD10: N39.0 acute - UA positive for angi esterase, hematuria, proteinuria and nitrates - Send urine for culture - Begin treatment with Bactrim DS BID for 7 days - Patient education for prevention given 3. Dysuria - ICD9: 788.1, ICD10: R30.0 We will send the urine for culture, which shows us what organism, if any, we are treating. If we need to change the antibiotic coverage, you will receive a call in 48-72 hours. * Seek medical care immediately, call 911, or go to ER if you have high fevers, severe flank or low back pain, blood in your urine. * Follow up with primary care provider if symptoms persist or worsen. - UA DIP, URINE (POC) - URINE CULTURE Nusrat HollandGEORGIE.DRAWER MAKER 05/19/2020 8:53 AM Signed Subjective HPI HPI Leeann Crockett is a 60 year old female who presents today for CC of pain with urination and left flank pain. This started overnight. She does not have a fever. Feels nauseous, vomit x 1 ?acid reflux during the night. She has used no medications or treatment. No history of kidney stones, or frequent uti. BP 108/82 Pulse 102 Temp 37 ?C (98.6 ?F) (Temporal) Resp 16 Wt 74.1 kg (163 lb 6.4 oz) BMI 29.89 kg/m? Social History Tobacco Use - Smoking status: Former Smoker Packs/day: 1.00 Years: 10.00 Pack years: 10.00 Types: Cigarettes - Smokeless tobacco: Never Used - Tobacco comment: quit 1995 Substance Use Topics - Alcohol use: Yes Comment: rarely - Drug use: No PAST MEDICAL HISTORY Diagnosis Date - Allergic rhinitis, cause unspecified - Arthritis of both knees 10/12/2012 - Celiac disease 09/29/2010 - Menopause 10/12/2012 - Obesity 10/12/2012 - Panic disorder without agoraphobia I have confirmed and edited as necessary, the [facility] Review of Systems Constitutional: Negative for chills and fever. Gastrointestinal: Negative for abdominal pain. Genitourinary: Positive for dysuria and flank pain. Negative for frequency, hematuria and urgency. Objective Physical Exam Constitutional: She is oriented to person, place, and time and well-developed, well-nourished, and in no distress. Abdominal: Normal appearance and bowel sounds are normal. She exhibits no abdominal bruit, no pulsatile midline mass and no mass. There is no hepatosplenomegaly. There is no abdominal tenderness. There is CVA tenderness (right). There is no rigidity, no rebound, no guarding, no tenderness at McBurney's point and negative Perkins's sign. Neurological: She is alert and oriented to person, place, and time. Psychiatric: Affect normal. Nursing note and vitals reviewed. ASSESSMENT/PLAN: 1. Right flank pain - ICD9: 789.09, ICD10: R10.9 (primary - UA DIP, URINE (POC) - URINE CULTURE 2. Acute lower UTI - ICD9: 599.0, ICD10: N39.0 Acute, possible stone, nephritis - UA positive for angi esterase, hematuria, proteinuria and nitrates - Send urine for culture - Begin treatment with Bactrim DS BID for 7 days - Patient education for prevention given, red flags given 3. Dysuria - ICD9: 788.1, ICD10: R30.0 We will send the urine for culture, which shows us what organism, if any, we are treating. If we need to change the antibiotic coverage, you will receive a call in 48-72 hours. * Seek medical care immediately, call 911, or go to ER if you have high fevers, severe flank or low back pain, blood in your urine. * Follow up with primary care provider if symptoms persist or worsen. - UA DIP, URINE (POC) - URINE CULTURE Diagnosis and treatment plan were discussed and questions were answered to the patient's satisfaction. Pt acknowledged understanding of concepts and follow up plan. Specific signs and symptoms that would indicate the need for higher level of care were discussed in detail warranting prompt ER evaluation. Nusrat Holland, SOFTWARE SECURITY CONSULTANT.DRAWER MAKER Referring Provider: SELF [[id number]] Allergies As of Date: 05/19/2020 Noted Allergy Reaction BEES 04/14/2006 10 - Anaphylaxis CODEINE 01/12/2006 CRESTOR (ROSUVASTATIN CALCIUM) 05/26/2007 Comments: myalgia DARVOCET A500 (PROPOXYPHENE N-JAY*01/12/2006 DUST 01/12/2006 GRASS POLLEN 01/12/2006 LIPITOR (ATORVASTATIN CALCIUM) 01/27/2006 5 - Intolerance Comments: MUSCLE ACHE MOLD 01/12/2006 NIASPAN (NIACIN (ANTIHYPERLIPIDEM*05/26 2 - Rash 4 - Hives 7 - Swelling Comments: SWELLING OF TOUNGE PERCOCET (OXYCODONE-ACETAMINOPH EN)01/12/2006 SERTRALINE 01/02/2010 WASPS 04/14/2006 10 - Anaphylaxis Date Reviewed: 05/19/2020 Reviewed by: Nusrat Holland - Fully Assessed Reason for Visit: UTI [116] Primary Visit Diagnosis:Right flank pain [R10.9] Other Visit Diagnoses:Acute lower UTI [N39.0] Dysuria [R30.0] Order(s):UA DIP, URINE (POC) [5216045] Order #: [id number]. #:[id number] URINE CULTURE [SQURCUL] Order #: [id number] sulfamethoxazole-trime thoprim (BACTRIM DS) 800-160 mg per tabletTake 1 tablet by mouth twice daily for 7 days.Disp: 20 tabletRfl: 0 Prescriptions as of 05/19/2020 Sig: LORAZEPAM 1 MG TABLET Take 1 tablet by mouth as nee* EPINEPHRINE 0.3 MG/0.3 ML INJ* Inject 0.3 mL subcutaneously * MOMETASONE-FORMOTEROL HFA 100* Inhale 2 Puffs as instructed * MONTELUKAST 10 MG TABLET Take 1 tablet by mouth daily * ALBUTEROL SULFATE 2.5 MG/3 ML* Use 3 mL via nebulizer every * ALBUTEROL SULFATE HFA 90 MCG/* Inhale 2 Puffs as instructed * ALBUTEROL SULFATE 2.5 MG/3 ML* Use 3 mL via nebulizer every * CONJUGATED ESTROGENS 0.625 MG* Take 1 tablet by mouth once d* BENADRYL 25 MG CAPSULE Take one capsule every 6 hour* ADULT LOW DOSE ASPIRIN 81 MG * Take one(1) tablet daily. ZYRTEC 10 MG TABLET Take one(1) tablet daily. SULFAMETHOXAZOLE 800 MG-TRIME* Take 1 tablet by mouth twice * Problem List As Of Date 05/19/2020 Noted Resolved PANIC DISORDER WITHOUT AGORAPHOBIA [F41.0] ASTHMA UNSPECIFIED [J45.909] 01/13/2006 ESOPHAGEAL REFLUX [K21.9] 08/19/2007 HIATAL HERNIA [K44.9] 09/20/2007 HYPERLIPIDEMIA NEC/NOS [E78.5] 11/22/2008 Abdominal pain, unspecified site [R10.9] 08/21/2010 Hiatal hernia [K44.9] 09/12/2010 Gastritis [K29.70] 09/12/2010 Celiac disease [K90.0] 09/29/2010 Arthritis of both knees [M17.0] 10/12/2012 Menopause [Z78.0] 10/12/2012 Obesity [E66.9] 10/12/2012 Other instructions from your clinician: ASSESSMENT/PLAN: 1. Right flank pain - ICD9: 789.09, ICD10: R10.9 (primary - UA DIP, URINE (POC) - URINE CULTURE 2. Acute lower UTI - ICD9: 599.0, ICD10: N39.0 acute - UA positive for angi esterase, hematuria, proteinuria and nitrates - Send urine for culture - Begin treatment with Bactrim DS BID for 7 days - Patient education for prevention given 3. Dysuria - ICD9: 788.1, ICD10: R30.0 We will send the urine for culture, which shows us what organism, if any, we are treating. If we need to change the antibiotic coverage, you will receive a call in 48-72 hours. * Seek medical care immediately, call 911, or go to ER if you have high fevers, severe flank or low back pain, blood in your urine. * Follow up with primary care provider if symptoms persist or worsen. - UA DIP, URINE (POC) - URINE CULTURE Prescriptions ordered this encounter Disp Refills Start End SULFAMETHOXAZOLE 800 MG-TRIMETHOPRIM* 20 t* 0 05/19/2020 05/26/2020 Cmt: Ok to give generic equivalent Route: ORAL Sig: Take 1 tablet by mouth twice daily for 7 days. Encounter Status:Closed by NUSRAT HOLLAND CNP on 05/19/20 [facility] PROGRESSon 05-19-2020 PROGRESS HNO ID: [id number] Author: Nusrat Holland Service: ? Author Type: Nurse Practitioner Type: Progress Notes Filed: 05/19/2020 8:53 AM Note Text: Subjective HPI HPI Leeann Crockett is a 60 year old female who presents today for CC of pain with urination and left flank pain. This started overnight. She does not have a fever. Feels nauseous, vomit x 1 ?acid reflux during the night. She has used no medications or treatment. No history of kidney stones, or frequent uti. BP 108/82 Pulse 102 Temp 37 ?C (98.6 ?F) (Temporal) Resp 16 Wt 74.1 kg (163 lb 6.4 oz) BMI 29.89 kg/m? Social History Tobacco Use - Smoking status: Former Smoker Packs/day: 1.00 Years: 10.00 Pack years: 10.00 Types: Cigarettes - Smokeless tobacco: Never Used - Tobacco comment: quit 1995 Substance Use Topics - Alcohol use: Yes Comment: rarely - Drug use: No PAST MEDICAL HISTORY Diagnosis Date - Allergic rhinitis, cause unspecified - Arthritis of both knees 10/12/2012 - Celiac disease 09/29/2010 - Menopause 10/12/2012 - Obesity 10/12/2012 - Panic disorder without agoraphobia I have confirmed and edited as necessary, the [facility] Review of Systems Constitutional: Negative for chills and fever. Gastrointestinal: Negative for abdominal pain. Genitourinary: Positive for dysuria and flank pain. Negative for frequency, hematuria and urgency. Objective Physical Exam Constitutional: She is oriented to person, place, and time and well-developed, well-nourished, and in no distress. Abdominal: Normal appearance and bowel sounds are normal. She exhibits no abdominal bruit, no pulsatile midline mass and no mass. There is no hepatosplenomegaly. There is no abdominal tenderness. There is CVA tenderness (right). There is no rigidity, no rebound, no guarding, no tenderness at McBurney's point and negative Perkins's sign. Neurological: She is alert and oriented to person, place, and time. Psychiatric: Affect normal. Nursing note and vitals reviewed. ASSESSMENT/PLAN: 1. Right flank pain - ICD9: 789.09, ICD10: R10.9 (primary - UA DIP, URINE (POC) - URINE CULTURE 2. Acute lower UTI - ICD9: 599.0, ICD10: N39.0 Acute, possible stone, nephritis - UA positive for angi esterase, hematuria, proteinuria and nitrates - Send urine for culture - Begin treatment with Bactrim DS BID for 7 days - Patient education for prevention given, red flags given 3. Dysuria - ICD9: 788.1, ICD10: R30.0 We will send the urine for culture, which shows us what organism, if any, we are treating. If we need to change the antibiotic coverage, you will receive a call in 48-72 hours. * Seek medical care immediately, call 911, or go to ER if you have high fevers, severe flank or low back pain, blood in your urine. * Follow up with primary care provider if symptoms persist or worsen. - UA DIP, URINE (POC) - URINE CULTURE Diagnosis and treatment plan were discussed and questions were answered to the patient's satisfaction. Pt acknowledged understanding of concepts and follow up plan. Specific signs and symptoms that would indicate the need for higher level of care were discussed in detail warranting prompt ER evaluation. Nusrat Holland APRN.DRAWER MAKER Normal [facility] Urine Cultureon 05-19-2020 Bacteria identified Cx Nom (U) Sp. Request/Comment: - Specimen received in preservative Culture Result - >=100,000 CFU/ml Escherichia coli --> ABNORMAL ALERT ORGANISM: Escherichia coli METHOD: Minimum inhibitory concentration(Vitek) Antibiotic Interp EARNEST Status Ampicillin RESISTANT >=32 F Gentamicin SUSCEPTIBLE <=1 F Trimeth sulfameth SUSCEPTIBLE <=20 F Cefazolin SUSCEPTIBLE <=4 F CLSI breakpoints for therapy of uncomplicated UTI's due to E.coli, K.pneumoniae, and P.mirabilis were applied and may be used to predict the activity of oral agents(cefaclor, cefdinir, cefpodoxime, cefprozil, cefuroxime, cephalexin, loracarbef). Ciprofloxacin SUSCEPTIBLE <=0.25 F Nitrofurantoin SUSCEPTIBLE 32 F Cefepime SUSCEPTIBLE <=1 F Piperacillin/Tazobac SUSCEPTIBLE <=4 F Ampicillin Sulbact RESISTANT >=32 F Ceftriaxone SUSCEPTIBLE <=1 F Meropenem SUSCEPTIBLE <=0.25 F Ertapenem SUSCEPTIBLE <=0.5 F Critically abnormal [facility] Comment on above: Performed By: #### U RCUL #### [facility] [address] [place] [address] Vital Signs Date Time Vital Sign Value Performing Clinician Facility 04-26-2025 13:01-0400 Body height 157.[address] Yennifer Johnson MD Work Phone: [facility] 04-26-2025 13:01-0400 Body mass index (BMI) [Ratio] 28.7 kg/m2 Dr. Yennifer Johnson MD Work Phone: [facility] 04-26-2025 13:01-0400 Body weight 71.[address] Yennifer Johnson MD Work Phone: [facility] 04-26-2025 13:01-0400 Diastolic blood pressure 72 mm[Hg] Dr. Yennifer Johnson MD Work Phone: [facility] 04-26-2025 13:01-0400 Heart rate 82 /min Dr. Yennifer Johnson MD Work Phone: [facility] 04-26-2025 13:01-0400 Respiratory rate 18 /min Dr. Yennifer Johnson MD Work Phone: [facility] 04-26-2025 13:01-0400 Systolic blood pressure 118 mm[Hg] Dr. Yennifer Johnson MD Work Phone: [facility] 04-04-2024 12:06-0400 Body temperature 98.4 [degF] Tin West MD Work Phone: [facility] 04-04-2024 12:06-0400 Diastolic blood pressure 66 mm[Hg] Tin West MD Work Phone: [facility] 04-04-2024 12:06-0400 Respiratory rate 16 /min Tin West MD Work Phone: [facility] 04-04-2024 12:06-0400 SaO2% (BldA) [Mass fraction] 99 % Tin West MD Work Phone: [facility] 04-04-2024 12:06-0400 Systolic blood pressure 133 mm[Hg] Tin West MD Work Phone: [facility] 04-04-2024 03:27-0400 Body mass index (BMI) [Ratio] 32.5 kg/m2 Tin West MD Work Phone: [facility] 04-04-2024 03:27-0400 Body weight 80.6 kg Tin West MD Work Phone: [facility] 04-03-2024 12:15-0400 Heart rate 76 /min Tin West MD Work Phone: [facility] 12-16-2023 13:11-0500 Body height 157.[address] Yennifer Johnson Work Phone: [facility] 12-16-2023 13:11-0500 Body mass index (BMI) [Ratio] 29.2 kg/m2 Dr. Yennifer Johnson Work Phone: [facility] 12-16-2023 13:11-0500 Body weight 72.[address] Yennifer Johnson Work Phone: [facility] 12-16-2023 13:11-0500 Diastolic blood pressure 77 mm[Hg] Dr. Yennifer Johnson Work Phone: [facility] 12-16-2023 13:11-0500 Heart rate 73 /min Dr. Yennifer Johnson Work Phone: [facility] 12-16-2023 13:11-0500 Respiratory rate 18 /min Dr. Yennifer Johnson Work Phone: [facility] 12-16-2023 13:11-0500 SaO2% (BldA) [Mass fraction] 97 % Dr. Yennifer Johnson Work Phone: [facility] 12-16-2023 13:11-0500 Systolic blood pressure 123 mm[Hg] Dr. Yennifer Johnson Work Phone: [facility] 10-06-2023 11:20-0500 Body height 157.[address] Yennifer Johnson Work Phone: [facility] 10-06-2023 11:20-0500 Body mass index (BMI) [Ratio] 27.8 kg/m2 Dr. Yennifer Johnson Work Phone: [facility] 10-06-2023 11:20-0500 Body temperature 98.2 [degF] Dr. Yennifer Johnson Work Phone: [facility] 10-06-2023 11:20-0500 Body weight 68.[address] Yennifer Johnson Work Phone: [facility] 10-06-2023 11:20-0500 Diastolic blood pressure 63 mm[Hg] Dr. Yennifer Johnson Work Phone: [facility] 10-06-2023 11:20-0500 Heart rate 92 /min Dr. Yennifer Johnson Work Phone: [facility] 10-06-2023 11:20-0500 Respiratory rate 16 /min Dr. Yennifer Johnson Work Phone: [facility] 10-06-2023 11:20-0500 SaO2% (BldA) [Mass fraction] 96 % Dr. Yennifer Johnson Work Phone: [facility] 10-06-2023 11:20-0500 Systolic blood pressure 100 mm[Hg] Dr. Yennifer Johnson Work Phone: [facility] 09-27-2023 13:05-0500 Body mass index (BMI) [Ratio] 27.8 kg/m2 Dr. Yennifer Johnson Work Phone: [facility] 09-27-2023 13:05-0500 Body temperature 98.4 [degF] Dr. Yennifer Johnson Work Phone: [facility] 09-27-2023 13:05-0500 Body weight 71.[address] Yennifer Johnson Work Phone: [facility] 09-27-2023 13:05-0500 Diastolic blood pressure 80 mm[Hg] Dr. Yennifer Johnson Work Phone: [facility] 09-27-2023 13:05-0500 Heart rate 77 /min Dr. Yennifer Johnson Work Phone: [facility] 09-27-2023 13:05-0500 Respiratory rate 16 /min Dr. Yennifer Johnson Work Phone: [facility] 09-27-2023 13:05-0500 SaO2% (BldA) [Mass fraction] 98 % Dr. Yennifer Johnson Work Phone: [facility] 09-27-2023 13:05-0500 Systolic blood pressure 120 mm[Hg] Dr. Yennifer Johnson Work Phone: [facility] 07-12-2023 09:13-0400 Body mass index (BMI) [Ratio] 27.4 kg/m2 Dr. Yennifer Johnson Work Phone: [facility] 07-12-2023 09:13-0400 Body weight 70.[address] Yennifer Johnson Work Phone: [facility] 07-12-2023 09:13-0400 Diastolic blood pressure 84 mm[Hg] Dr. Yennifer Johnson Work Phone: [facility] 07-12-2023 09:13-0400 Heart rate 69 /min Dr. Yennifer Johnson Work Phone: [facility] 07-12-2023 09:13-0400 Respiratory rate 18 /min Dr. Yennifer Johnson Work Phone: [facility] 07-12-2023 09:13-0400 SaO2% (BldA) [Mass fraction] 98 % Dr. Yennifer Johnson Work Phone: [facility] 07-12-2023 09:13-0400 Systolic blood pressure 129 mm[Hg] Dr. Yennifer Johnson Work Phone: [facility] 02-24-2023 13:25-0400 Body temperature 98.5 [degF] Dr. Yennifer Johnson Work Phone: [facility] 02-24-2023 13:25-0400 Diastolic blood pressure 77 mm[Hg] Dr. Yennifer Johnson Work Phone: [facility] 02-24-2023 13:25-0400 Heart rate 67 /min Dr. Yennifer Johnson Work Phone: [facility] 02-24-2023 13:25-0400 Respiratory rate 16 /min Dr. Yennifer Johnson Work Phone: [facility] 02-24-2023 13:25-0400 SaO2% (BldA) [Mass fraction] 99 % Dr. Yennifer Johnson Work Phone: [facility] 02-24-2023 13:25-0400 Systolic blood pressure 138 mm[Hg] Dr. Yennifer Johnson Work Phone: [facility] 02-24-2023 06:15-0400 Body height 160.[address] Yennifer Johnson Work Phone: [facility] 02-24-2023 06:15-0400 Body mass index (BMI) [Ratio] 28 kg/m2 Dr. Yennifer Johnson Work Phone: [facility] 02-24-2023 06:15-0400 Body weight [address] Yennifer Johnson Work Phone: [facility] 07-27-2022 13:39-0400 Body height 160.[address] Yennifer Johnson Work Phone: [facility] 07-27-2022 13:39-0400 Body mass index (BMI) [Ratio] 28.7 kg/m2 Dr. Yennifer Johnson Work Phone: [facility] 07-27-2022 13:39-0400 Body temperature 97.5 [degF] Dr. Yennifer Johnson Work Phone: [facility] 07-27-2022 13:39-0400 Body weight 73.[address] Yennifer Johnson Work Phone: [facility] 07-27-2022 13:39-0400 Diastolic blood pressure 80 mm[Hg] Dr. Yennifer Johnson Work Phone: [facility] 07-27-2022 13:39-0400 Heart rate 83 /min Dr. Yennifer Johnson Work Phone: [facility] 07-27-2022 13:39-0400 Respiratory rate 14 /min Dr. Yennifer Johnson Work Phone: [facility] 07-27-2022 13:39-0400 SaO2% (BldA) [Mass fraction] 98 % Dr. Yennifer Johnson Work Phone: [facility] 07-27-2022 13:39-0400 Systolic blood pressure 130 mm[Hg] Dr. Yennifer Johnson Work Phone: [facility] 07-10-2022 10:57-0400 Body mass index (BMI) [Ratio] 28.7 kg/m2 Dr. Yennifer Johnson Work Phone: [facility] Work Phone: 07-10-2022 10:57-0400 Body temperature 97.2 [degF] Dr. Yennifer Johnson Work Phone: [facility] Work Phone: 07-10-2022 10:57-0400 Body weight 73.[address] Yennifer Johnson Work Phone: [facility] Work Phone: 07-10-2022 10:57-0400 Diastolic blood pressure 80 mm[Hg] Dr. Yennifer Johnson Work Phone: [facility] Work Phone: 07-10-2022 10:57-0400 Heart rate 71 /min Dr. Yennifer Johnson Work Phone: [facility] Work Phone: 07-10-2022 10:57-0400 Respiratory rate 16 /min Dr. Yennifer Johnson Work Phone: [facility] Work Phone: 07-10-2022 10:57-0400 SaO2% (BldA) [Mass fraction] 98 % Dr. Yennifer Johnson Work Phone: [facility] Work Phone: 07-10-2022 10:57-0400 Systolic blood pressure 122 mm[Hg] Dr. Yennifer Johnson Work Phone: [facility] Work Phone: 07-01-2022 08:03-0400 Body mass index (BMI) [Ratio] 28.8 kg/m2 Dr. Yennifer Johnson Work Phone: [facility] Work Phone: 07-01-2022 08:03-0400 Body temperature 98.3 [degF] Dr. Yennifer Johnson Work Phone: [facility] Work Phone: 07-01-2022 08:03-0400 Body weight 73.[address] Yennifer Johnson Work Phone: [facility] Work Phone: 07-01-2022 08:03-0400 Diastolic blood pressure 80 mm[Hg] Dr. Yennifer Johnson Work Phone: [facility] Work Phone: 07-01-2022 08:03-0400 Heart rate 85 /min Dr. Yennifer Johnson Work Phone: [facility] Work Phone: 07-01-2022 08:03-0400 Respiratory rate 18 /min Dr. Yennifer Johnson Work Phone: [facility] Work Phone: 07-01-2022 08:03-0400 SaO2% (BldA) [Mass fraction] 98 % Dr. Yennifer Johnson Work Phone: [facility] Work Phone: 07-01-2022 08:03-0400 Systolic blood pressure 130 mm[Hg] Dr. Yennifer Johnson Work Phone: [facility] Work Phone: 06-24-2022 14:49-0400 Body height 160.[address] Yennifer Johnson Work Phone: [facility] Work Phone: 06-24-2022 14:49-0400 Body mass index (BMI) [Ratio] 28.8 kg/m2 Dr. Yennifer Johnson Work Phone: [facility] Work Phone: 06-24-2022 14:49-0400 Body weight 73.[address] Yennifer Johnson Work Phone: [facility] Work Phone: 06-24-2022 14:49-0400 Diastolic blood pressure 79 mm[Hg] Dr. Yennifer Johnson Work Phone: [facility] Work Phone: 06-24-2022 14:49-0400 Heart rate 82 /min Dr. Yennifer Johnson Work Phone: [facility] Work Phone: 06-24-2022 14:49-0400 Respiratory rate 18 /min Dr. Yennifer Johnson Work Phone: [facility] Work Phone: 06-24-2022 14:49-0400 SaO2% (BldA) [Mass fraction] 97 % Dr. Yennifer Johnson Work Phone: [facility] Work Phone: 06-24-2022 14:49-0400 Systolic blood pressure 131 mm[Hg] Dr. Yennifer Johnson Work Phone: [facility] Work Phone: 06-09-2022 14:55-0400 Body height 160.[address] Yennifer Johnson Work Phone: [facility] Work Phone: 06-09-2022 14:55-0400 Body mass index (BMI) [Ratio] 28.3 kg/m2 Dr. Yennifer Johnson Work Phone: [facility] Work Phone: 06-09-2022 14:55-0400 Body temperature 97.9 [degF] Dr. Yennifer Johnson Work Phone: [facility] Work Phone: 06-09-2022 14:55-0400 Body weight 72.[address] Yennifer Johnson Work Phone: [facility] Work Phone: 06-09-2022 14:55-0400 Diastolic blood pressure 82 mm[Hg] Dr. Yennifer Johnson Work Phone: [facility] Work Phone: 06-09-2022 14:55-0400 Heart rate 80 /min Dr. Yennifer Johnson Work Phone: [facility] Work Phone: 06-09-2022 14:55-0400 Respiratory rate 14 /min Dr. Yennifer Johnson Work Phone: [facility] Work Phone: 06-09-2022 14:55-0400 SaO2% (BldA) [Mass fraction] 98 % Dr. Yennifer Johnson Work Phone: [facility] Work Phone: 06-09-2022 14:55-0400 Systolic blood pressure 134 mm[Hg] Dr. Yennifer Johnson Work Phone: [facility] Work Phone: 05-04-2022 18:49-0400 Diastolic blood pressure 74 mm[Hg] [facility] Work Phone: 05-04-2022 18:49-0400 Heart rate 74 /min [facility] Work Phone: 05-04-2022 18:49-0400 Respiratory rate 16 /min [facility] Work Phone: 05-04-2022 18:49-0400 Systolic blood pressure 132 mm[Hg] [facility] Work Phone: 05-04-2022 16:54-0400 Body height 160.02 cm [facility] Work Phone: 05-04-2022 16:54-0400 Body mass index (BMI) [Ratio] 30.4 kg/m2 [facility] Work Phone: 05-04-2022 16:54-0400 Body temperature 97.1 [degF] [facility] Work Phone: 05-04-2022 16:54-0400 Body weight 77.9 kg [facility] Work Phone: 05-04-2022 16:54-0400 SaO2% (BldA) [Mass fraction] 100 % [facility] Work Phone: Encounters Encounter Date Encounter Type Care Provider Facility Start: 04-26-2025 End: 04-26-2025 Patient encounter procedure Karlie CHRISTIAN -[facility] Work Phone: Start: 04-26-2025 End: 04-26-[address] Yennifer Johnson MD Work Phone: -[facility] Start: 03-24-2025 End: 03-24-[address] Yennifer Johnson MD Work Phone: [facility] Work Phone: Start: 03-24-2025 End: 03-24-2025 Patient encounter procedure Larry H Roof [employer] -[facility] Work Phone: Start: 03-24-2025 End: 03-24-2025 ambulatory [facility] Facility:[facility] Start: 10-24-2024 End: 10-24-2024 ambulatory [facility] Facility:[facility] Start: 10-21-2024 End: 10-21-2024 ambulatory Karlie Johnson NP Facility:[facility] Start: 08-07-2024 Encounter for genera l adult medical examination without abnormal findings [facility] Start: 07-10-2024 End: 07-10-2024 ambulatory [facility] Facility:[facility] Start: 07-10-2024 End: 07-10-2024 ambulatory [facility] Facility:[facility] Start: 06-15-2024 End: 06-15-2024 ambulatory [facility] Facility:[facility] Start: 04-03-2024 End: 04-04-2024 Subsequent hospital visit by physician Tin West MD Work Phone: [facility] Comment on above: Arthritis of left kn ee (Primary Dx); Urinary tract infection without hematuria, site unspecified Start: 03-21-2024 End: 03-21-2024 [facility] Start: 03-21-2024 End: 03-21-2024 Encounter for other preprocedural examination [facility] Start: 03-21-2024 End: 03-21-2024 ambulatory [facility] Start: 03-21-2024 End: 03-21-2024 Encounter for other preprocedural examination [facility] Start: 03-17-2024 ambulatory [facility] Start: 02-25-[address] Odessa Johnson MD Work Phone: [facility] Comment on above: The patient complain s of chronic dyspnea on exertion which is unchanged over several years. This dates back to the extensive evaluation that was done in 2018 including a normal left heart cath. She has had no change in her recent exercise tolerance. Her main limitation is her left knee. Start: 01-17-2024 Non-patient / Non-visit Dr. Roz Johnson Work Phone: [facility] Work Phone: Start: 01-17-2024 Non-patient / Non-visit Dr. Roz Johnson Work Phone: [facility] Start: 01-17-2024 End: 01-17-[address] Yennifer Johnson Work Phone: [facility] Work Phone: Start: 01-17-2024 End: 01-17-[address] [facility] Work Phone: Start: 12-27-2023 Non-patient / Non-visit Dr. Roz Johnson Work Phone: [facility] Work Phone: Start: 12-27-2023 Non-patient / Non-visit Dr. Roz Johnson Work Phone: [facility] Start: 12-27-2023 End: 12-27-[address] [facility]enn[facility] Work Phone: Start: 12-20-[address] Elder Johnson [facility] Work Phone: Start: 12-16-2023 End: 12-16-[address] Yennifer Johnson Work Phone: [facility] Work Phone: Start: 12-16-2023 End: 12-16-[address] Yennifer Johnson Work Phone: [facility] Work Phone: Start: 10-21-2023 End: 10-21-[address] Yennifer Johnson Work Phone: [facility] Work Phone: Start: 10-21-2023 End: 10-21-[address] Yennifer Johnson Work Phone: [facility]-Outpatient Breast Imaging Work Phone: Start: 10-06-2023 End: 10-06-[address] Yennifer Johnson Work Phone: [facility] Work Phone: Start: 09-27-2023 End: 09-27-2023 Encounter for general adult medical examination without abnormal findings Dr. Yennifer Johnson Work Phone: [facility] Start: 09-27-2023 End: 09-27-[address] Yennifer Johnson Work Phone: [facility] Work Phone: Start: 07-12-2023 End: 07-12-[address] Yennifer Johnson Work Phone: [facility] Work Phone: Start: 07-03-2023 End: 07-03-[address] Yennifer Johnson Work Phone: [facility] Work Phone: Start: 07-03-2023 End: 07-03-[address] Yennifer Johnson Work Phone: [facility]Labor[facility] Work Phone: Start: 05-05-2023 End: 05-05-[address] Yennifer Johnson Work Phone: [facility] Work Phone: Start: 05-05-2023 End: 05-05-[address] Yennifer Johnson Work Phone: [facility]-Physical Therapy Work Phone: Start: 04-06-2023 End: 04-06-[address] Yennifer Johnson Work Phone: [facility] Work Phone: Start: 03-26-[address] Robert Johnson Work Phone: [facility]-Physical Therapy Start: 03-16-2023 End: 03-16-[address] Yennifer Johnson Work Phone: [facility] Work Phone: Start: 03-16-2023 End: 03-16-[address] Yennifer Johnson Work Phone: [facility]Laboratory Start: 03-09-2023 End: 03-09-[address] Yennifer Johnson Work Phone: [facility] Start: 02-26-2023 End: 02-26-[address] Yennifer Johnson Work Phone: [facility] Start: 02-24-2023 Non-patient / Non-visit Dr. Roz Johnson Work Phone: [facility] Start: 02-24-2023 End: 02-24-2023 Admission to same day surgery center Dr. Yennifer Johnson Work Phone: [facility]Surgical Day Care Start: 02-24-2023 End: 02-24-[address] Yennifer Johnson Work Phone: [facility] Work Phone: Start: 02-04-2023 End: 02-04-[address] Yennifer Johnson Work Phone: [facility] Start: 02-02-2023 End: 02-02-[address] Yennifer Johnson Work Phone: [facility] Work Phone: Start: 02-02-2023 End: 02-02-[address] Yennifer Johnson Work Phone: [facility] Start: 01-19-2023 End: 01-19-[address] Yennifer Johnson Work Phone: [facility] Start: 10-31-2022 End: 10-31-[address] Yennifer Johnson Work Phone: [facility] Work Phone: Start: 10-31-2022 End: 10-31-[address] Yennifer Johnson Work Phone: [facility]Laboratory Start: 09-28-2022 End: 09-28-[address] Yennifer Johnson Work Phone: [facility] Work Phone: Start: 09-28-2022 End: 09-28-[address] Yennifer Johnson Work Phone: [facility]-Outpatient Breast Imaging Start: 08-06-2022 End: 08-06-[address] Yennifer Johnson Work Phone: [facility] Start: 07-28-2022 End: 07-28-[address] Yennifer Johnson Work Phone: [facility] Work Phone: Start: 07-28-2022 End: 07-28-[address] Yennifer Johnson Work Phone: [facility] Start: 07-27-2022 End: 07-27-[address] Yennifer Johnson Work Phone: [facility] Start: 07-10-2022 End: 07-10-[address] Yennifer Johnson Work Phone: [facility] Start: 07-01-[address] Elder Johnson Work Phone: [facility] Start: 07-01-2022 End: 07-01-2022 Encounter for general adult medical examination without abnormal findings Dr. Yennifer Johnson Work Phone: [facility] Start: 07-01-2022 End: 07-01-2022 Non-patient / Non-visit Dr. Yennifer Johnson Work Phone: [facility] Start: 06-24-2022 End: 06-24-[address] Yennifer Johnson Work Phone: [facility] Work Phone: Start: 06-24-2022 End: 06-24-[address] Yennifer Johnson Work Phone: [facility] Start: 06-09-2022 End: 06-09-[address] Yennifer Johnson Work Phone: [facility] Start: 06-09-2022 End: 06-09-[address] Yennifer Johnson Work Phone: [facility] Start: 05-15-2022 End: 05-15-2022 Patient encounter procedure [facility]Labor[facility] Start: 05-04-2022 End: 05-04-2022 Emergency department patient visit [facility]Emergency Department Start: 07-08-2021 Patient encounter status [facility] Start: 04-08-2021 Patient encounter status [facility] Procedures Date Procedure Procedure Detail Performing Clinician Start: 04-04-2024 Urinalysis microscop ic panel - Urine Qualitative by Automated Keshawn Stevenson SOFTWARE SECURITY [employer] Work Phone: Start: 04-04-2024 Urnls dip stick/tabl et reagent auto microscopy Keshawn Stevenson SOFTWARE SECURITY CONSULTANT[employer] Work Phone: Start: 04-04-2024 Radiologic exam ches t single view Keshawn Stevenson SOFTWARE SECURITY CONSULTANT-[employer] Work Phone: Start: 04-04-2024 Basic metabolic pane l calcium total Tin West MD Work Phone: Start: 04-03-2024 Radiologic examinati on knee 1/2 views Tin West MD Work Phone: Start: 04-03-2024 PULSE OXIMETRY, CONTINUOUS Israel Corea MD Work Phone: Start: 10-21-2023 Screening mammography D hermilo Johnson Work Phone: Start: 02-24-[address] Yennifer Johnson Work Phone: Start: 02-02-2023 MRI of joint of lowe r extremity Dr. Yennifer Johnson Work Phone: Start: 09-28-2022 Screening mammography D hermilo Johnson Work Phone: Start: 08-06-2022 Radiologic examinati on of knee Dr. Yennifer Johnson Work Phone: Start: 07-28-[address] Yennifer Johnson Work Phone: Plan of Treatment Date Care Activity Detail Author Start: 06-25-2024 Influenza vaccination Influenz a Vaccine (Season Ended) [facility] Start: 04-11-2024 End: 04-04-2025 Basic metabolic 2000 panel - Serum or Plasma Basic metabolic panel Lab Routine Arthritis of left knee Urinary tract infection without hematuria, site unspecified Expected: 04/11/2024 (Approximate), Expires: 04/04/2025 [facility] Work Phone: Comment on above: Expected: 04/11/2024 (Approximate), Expires: 04/04/2025 Start: 04-11-2024 End: 04-04-2025 CBC panel - Blood by Automated count CBC Lab Routine Arthritis of left knee Urinary tract infection without hematuria, site unspecified Expected: 04/11/2024 (Approximate), Expires: 04/04/2025 [facility] Work Phone: Comment on above: Expected: 04/11/2024 (Approximate), Expires: 04/04/2025 Start: 12-16-2023 Evaluation of diagno stic study results [facility] Start: 06-25-2023 COVID-19 Vaccine ( season) COVID-19 Vaccine ( season) [facility] Start: 03-09-2023 Patient referral [facility] Work Phone: Start: 02-24-2023 Anes open/surg arthroscopic proc knee joint nos ANESTH KNEE JOINT SURGERY [facility] Start: 02-24-2023 Arthrs kne surg w/meniscectomy med/lat w/shvg KNEE ARTHROSCOPY/SURGERY [facility] Start: 02-24-2023 Injection aa&/strd femoral nerve NJX AA&/STRD FEMORAL NRV IMG [facility] Start: 02-24-2023 Notification of physician [facility] Start: 02-24-2023 Application of device W [facility] Start: 02-24-2023 Application of ice collar, cap or bag [facility] Start: 02-24-2023 Assessment of risk o f venous thromboembolism [facility] Start: 02-24-2023 Catheterization of vein [facility] Start: 02-24-2023 Deep breathing and coughing exercises [facility] Start: 02-24-2023 Following clinical pathway protocol [facility] Start: 02-24-2023 Gait training procedure [facility] Start: 02-24-2023 Incentive spirometry [facility] Start: 02-24-2023 Introduction of urin jose c catheter [facility] Start: 02-24-2023 End: 02-24-2023 Patient discharge [facility] Start: 02-24-2023 Patient education [facility] Start: 02-24-2023 Provision of activit y privileges [facility] Start: 02-24-2023 Taking patient vital signs [facility] Start: 02-24-2023 Vital signs measurements [facility] Start: 02-24-2023 End: 02-24-2023 [facility] Start: 02-24-2023 Medication education [facility] Start: 06-09-2022 Patient referral [facility] Work Phone: Start: 2020 RSV patient s and/or patients aged 60+ years (1 - 1-dose 60+ series) RSV patients and/or patients aged 60+ years (1 - 1-dose 60+ series) [facility] Start: 01-14-2016 DTaP/Tdap/Td Vaccine s (2 - Tdap) DTaP/Tdap/Td Vaccines (2 - Tdap) [facility] Start: 2010 Zoster Vaccines (1 of 2) Zoste r Vaccines (1 of 2) [facility] Start: 2000 Screening for malign ant neoplasm of breast Mammogram [facility] Start: 1978 Diabetes mellitus screening Diabetes Screening [facility] Start: 1978 [facility]: 1966 Pneumococcal Vaccine : 65+ Years (1 of 2 - PCV) Pneumococcal Vaccine: 65+ Years (1 of 2 - PCV) [facility] Start: 1966 Pneumococcal Vaccine : Pediatrics (0 to 5 Years) and At-Risk Patients (6 to 64 Years) (1 of 2 - PCV) Pneumococcal Vaccine: Pediatrics (0 to 5 Years) and At-Risk Patients (6 to 64 Years) (1 of 2 - PCV) [facility] Start: 1961 MMR Vaccines (1 of 1 - Standard series) MMR Vaccines (1 of 1 - Standard series) [facility] Start: 1960 HIV screening HIV Screening [facility] Start: 1960 Lipid panel Lipid Panel [facility] Start: 1960 Screening for malign ant neoplasm of colon [facility] Start: 1960 Yearly Adult Physical Yearly Adult P hysical [facility] [address] [facility] End: 04-04-2024 Bacteria identified in Urine by Culture [facility] Work Phone: Comment on above: Once (Lab) for 1 Occ urrences starting 04/04/2024 until 04/04/2024 Cardiac event recording [facility] Work Phone: Electrocardiogram, 12-lead PRN ACS symptoms Electrocardiogram, 12-lead PRN ACS symptoms ECG Routine As needed until discontinued starting 04/03/2024 [facility] Work Phone: Comment on above: As needed until disc ontinued starting 04/03/2024 Electrocardiogram, 12-lead PRN ACS symptoms Electrocardiogram, 12-lead PRN ACS symptoms ECG Routine 04/04/2024 7:42 AM EDT [facility] Work Phone: End: 04-04-[address] [facility] Work Phone: Comment on above: Once for 1 Occurrenc es starting 04/04/2024 until 04/04/2024 End: 04-04-2024 Rondon Catheter Removal Rondon Catheter Removal Procedures Routine Once for 1 Occurrences starting 04/04/2024 until 04/04/2024 [facility] Work Phone: Comment on above: Once for 1 Occurrenc es starting 04/04/2024 until 04/04/2024 End: 04-03-2024 Incentive spirometry Instruct Incentive spirometry Instruct Respiratory Care Routine Once for 1 Occurrences starting 04/03/2024 until 04/03/2024 [facility] Work Phone: Comment on above: Once for 1 Occurrenc es starting 04/03/2024 until 04/03/2024 MG Breast - bilatera l Screening [facility] Work Phone: Patient Education [facility] Work Phone: Patient referral [facility] Work Phone: End: 04-04-2024 Urinalysis complete W Reflex Culture panel - Urine [facility] Work Phone: Comment on above: Once (Lab) for 1 Occ urrences starting 04/04/2024 until 04/04/2024 US Carotid arteries [facility] Immunizations Immunization Date Immunization Notes Care Provider Liz pierce 08-31-2022 influenza virus vaccine, unspecified formulation Tin West MD Work Phone: [facility] Work Phone: 06-17-2021 Covid (Pfizer) [facility] Payers Date Payer Category Payer Self-pay [id number] 2023 Unknown [id number] 2017 Unknown [id number] 2005 Unknown [id number] 1960 Unknown [id number] 2.16.8 [id number] 1960 Unknown [id number] 2.16.8 [id number] 1960 Unknown [id number] 2.16.8 [id number] Medicare [id number] Unknown [id number] 2.16.8 [id number] Unknown [id number] 2.16.8 [id number] Unknown [id number] 2.16.8 [id number] Unknown [id number] 2.16.8 [id number] Unknown [id number] 2.16.8 [id number] Unknown [id number] 2.16.8 [id number] Unknown [id number] 2.16.8 [id number] Unknown [id number] 2.16.8 [id number] Social History Date Type Detail Facility Start: 05-04-2022 End: 12-16-2023 Tobacco smoking status [facility] Unknown if ever smoked [facility] Start: 07-18-2019 Non-smoker [facility] Start: 1960 Sex Assigned At Female [facility] Start: 12-16-2023 End: 03-21-2024 Tobacco smoking status ILIS Ex-smoker [facility] Work Phone: Start: 02-23-1980 End: 02-23-1996 History of tobacco use Current smoker [facility] Work Phone: Start: 02-23-1980 End: 02-23-1996 History of tobacco use Cigarette Smoker [facility] Work Phone: Start: 03-21-2024 End: 04-03-2024 Cigarettes smoked current (pack per day) - Reported 0.4 [facility] Start: 03-21-2024 Tobacco use and exposure Smokeless tobacco non-user [facility] Work Phone: Start: 04-03-2024 Alcoholic beverage intake Current drinker of alcohol (finding) [facility] Work Phone: Start: 04-03-2024 B1300 Health Literacy [facility] How often do you nee d to have someone help you when you read instructions, pamphlets, or other written material from your doctor or pharmacy [SILS] Never [facility] Has the electric, gas, oil, or water company threatened to shut off services in your home in past 12Mo No [facility] Work Phone: Are you now , , , , never or living with a partner? [facility] Work Phone: How often to you hav e a drink containing alcohol? Never [facility] Work Phone: Do you feel stress - tense, restless, nervous, or anxious, or unable to sleep at night because your mind is troubled all the time - these days [OSQ] Not at all [facility] Work Phone: (I/We) worried whether (my/our) food would run out before (I/we) got money to buy more. Never true [facility] Work Phone: Start: 03-21-2024 Alcohol Comment Glass of wine maybe once a month [facility] Work Phone: Start: 03-19-2024 Gender identity Identifies as female gender (finding) [facility] Work Phone: Start: 03-24-2024 End: 04-03-2024 Exposure to SARS-CoV-2 (event) Not sure [facility] NEGATED: Highlighted row [facility] Medical Equipment Procedure Code Equipment Code Equipment Origin al Text Equipment Identifier Dates Breast reduction GRACE 3GRM HEMOSTAT ABS FDA Start: 07-25-2019 Breast reduction GRACE 3GRM HEMOSTAT ABS FDA Start: 07-25-2019 Breast reduction GRACE 3GRM HEMOSTAT ABS FDA Start: 07-25-2019 Breast reduction GRACE 3GRM HEMOSTAT ABS FDA Start: 07-25-2019 Breast reduction GRACE 3GRM HEMOSTAT ABS FDA Start: 07-25-2019 Breast reduction GRACE 3GRM HEMOSTAT ABS FDA Start: 07-25-2019 Breast reduction GRACE 3GRM HEMOSTAT ABS FDA Start: 07-25-2019 Breast reduction GRACE 3GRM HEMOSTAT ABS FDA Start: 07-25-2019 Breast reduction GRACE 3GRM HEMOSTAT ABS FDA Start: 07-25-2019 Breast reduction GRACE 3GRM HEMOSTAT ABS FDA Start: 07-25-2019 Breast reduction GRACE 3GRM HEMOSTAT ABS FDA Start: 07-25-2019 Breast reduction GRACE 3GRM HEMOSTAT ABS FDA Start: 07-25-2019 Breast reduction GRACE 3GRM HEMOSTAT ABS FDA Start: 07-25-2019 Breast reduction GRACE 3GRM HEMOSTAT ABS FDA Start: 07-25-2019 Breast reduction GRACE 3GRM HEMOSTAT ABS FDA Start: 07-25-2019 Breast reduction GRACE 3GRM HEMOSTAT ABS FDA Start: 07-25-2019 Breast reduction GRACE 3GRM HEMOSTAT ABS FDA Start: 07-25-2019 Breast reduction GRACE 3GRM HEMOSTAT ABS FDA Start: 07-25-2019 Breast reduction GRACE 3GRM HEMOSTAT ABS FDA Start: 07-25-2019 Breast reduction GRACE 3GRM HEMOSTAT ABS FDA Start: 07-25-2019 Breast reduction GRACE 3GRM HEMOSTAT ABS FDA Start: 07-25-2019 Breast reduction GRACE 3GRM HEMOSTAT ABS FDA Start: 07-25-2019 Breast reduction GRACE 3GRM HEMOSTAT ABS FDA Start: 07-25-2019 Breast reduction GRACE 3GRM HEMOSTAT ABS FDA Start: 07-25-2019 Breast reduction GRACE 3GRM HEMOSTAT ABS FDA Start: 07-25-2019 Breast reduction GRACE 3GRM HEMOSTAT ABS FDA Start: 07-25-2019 Breast reduction GRACE 3GRM HEMOSTAT ABS FDA Start: 07-25-2019 Breast reduction GRACE 3GRM HEMOSTAT ABS FDA Start: 07-25-2019 Breast reduction GRACE 3GRM HEMOSTAT ABS FDA Start: 07-25-2019 Breast reduction GRACE 3GRM HEMOSTAT ABS FDA Start: 07-25-2019 Breast reduction GRACE 3GRM HEMOSTAT ABS FDA Start: 07-25-2019 Breast reduction GRACE 3GRM HEMOSTAT ABS FDA Start: 07-25-2019 Breast reduction GRACE 3GRM HEMOSTAT ABS FDA Start: 07-25-2019 Breast reduction GRACE 3GRM HEMOSTAT ABS FDA Start: 07-25-2019 Breast reduction GRACE 3GRM HEMOSTAT ABS FDA Start: 07-25-2019 Breast reduction GRACE 3GRM HEMOSTAT ABS FDA Start: 07-25-2019 Breast reduction GRACE 3GRM HEMOSTAT ABS FDA Start: 07-25-2019 Breast reduction GRACE 3GRM HEMOSTAT ABS FDA Start: 07-25-2019 Breast reduction GRACE 3GRM HEMOSTAT ABS FDA Start: 07-25-2019 Breast reduction GRACE 3GRM HEMOSTAT ABS FDA Start: 07-25-2019 Breast reduction GRACE 3GRM HEMOSTAT ABS FDA Start: 07-25-2019 Breast reduction GRACE 3GRM HEMOSTAT ABS FDA Start: 07-25-2019 Breast reduction GRACE 3GRM HEMOSTAT ABS FDA Start: 07-25-2019 Breast reduction GRACE 3GRM HEMOSTAT ABS FDA Start: 07-25-2019 Breast reduction GRACE 3GRM HEMOSTAT ABS FDA Start: 07-25-2019 Breast reduction GRACE 3GRM HEMOSTAT ABS FDA Start: 07-25-2019 Breast reduction GRACE 3GRM HEMOSTAT ABS FDA Start: 07-25-2019 Breast reduction GRACE 3GRM HEMOSTAT ABS FDA Start: 07-25-2019 Breast reduction GRACE 3GRM HEMOSTAT ABS FDA Start: 07-25-2019 Breast reduction GRACE 3GRM HEMOSTAT ABS FDA Start: 07-25-2019 Breast reduction GRACE 3GRM HEMOSTAT ABS FDA Start: 07-25-2019 Breast reduction GRACE 3GRM HEMOSTAT ABS FDA Start: 07-25-2019 Breast reduction GRACE 3GRM HEMOSTAT ABS FDA Start: 07-25-2019 Breast reduction GRACE 3GRM HEMOSTAT ABS FDA Start: 07-25-2019 Breast reduction GRACE 3GRM HEMOSTAT ABS FDA Start: 07-25-2019 Breast reduction GRACE 3GRM HEMOSTAT ABS FDA Start: 07-25-2019 Breast reduction GRACE 3GRM HEMOSTAT ABS FDA Start: 07-25-2019 Breast reduction GRACE 3GRM HEMOSTAT ABS FDA Start: 07-25-2019 Breast reduction GRACE 3GRM HEMOSTAT ABS FDA Start: 07-25-2019 Breast reduction GRACE 3GRM HEMOSTAT ABS FDA Start: 07-25-2019 Breast reduction GRACE 3GRM HEMOSTAT ABS FDA Start: 07-25-2019 Breast reduction GRACE 3GRM HEMOSTAT ABS FDA Start: 07-25-2019 Breast reduction GRACE 3GRM HEMOSTAT ABS FDA Start: 07-25-2019 Breast reduction GRACE 3GRM HEMOSTAT ABS FDA Start: 07-25-2019 Patella, Triathl on, Asymmetric, Size A32 - [id number] Start: 04-03-2024 Component, Ps Femoral, P3, Beaded W/Pa, Left - [id number] Start: 04-03-2024 Baseplate, Triathlon Tritanium, Size 3, 44mm - [id number] Start: 04-03-2024 Size 3, 11mm Triathlon Ps Tibial Insert - [id number] Start: 04-03-2024 Goals Date Patient Goal Desired Activity /State Mental Status Date Assessment Result Facility 02-24-2023 Cognitive function Level Of Cons ciousness Awake;Appropriate;Follows Commands;Drowsy [facility] Work Phone: 02-24-2023 Cognitive function Voice/Name [facility] Work Phone: Clinical Notes 02-24-2023 to 04-26-2025 Note Date & Type Note Facility 04-26-2025 Progress note Note Date/Time April 26, 2025 1:29pm [facility] [address] [place] [address]. [address] [place] [address] OFFICE VISIT Date of Service: 04/26/25 MR#: [id number] Acct: [id number] Name: LEEANN CROCKETT Rep #: [id number] : 1960 Provider: GINO Johnson Age/Sex: 65/F [place] [facility] Status: Signed HPI HPI History of Present Illness Details: This is a 65-year-old white female who presents to the office today for a cardiovascular follow up visit. She has a history of paroxysmal atrial fibrillation, hyperlipidemia and hypertension. She was extensively evaluated back in 2018 including an invasive left heart catheterization. That cath showed normal LV function ejection fraction 75% and completely normal coronary arteries. The patient does have a strong family history of coronary artery disease she has hyperlipidemia which is well-controlled. She quit smoking in 1995 her blood pressure is well-controlled and she is not diabetic. Patient has a history of paroxysmal atrial fibrillation that has been well-controlled on combination of flecainide and diltiazem. She had an event recorder which she wore from December 20, 2023 through January 16, 2024. This showed no atrial fibrillation. She had occasional PVCs and PACs and some short runs of sinus tachycardia where she felt symptoms. She also had sinus tachycardia without any symptoms and she had some palpitations with normal sinus rhythm. At the patient's last office visit December 16, 2023 the patient had a normal CBC, electrolytes including calcium and magnesium were normal and she had normalthyroid studies. From a cardiac standpoint, the patient is doing well. She does acknowledge palpitations- she describes this as a fluttering/fast beat. She does acknowledgechest tightness-midsternal/left chest. She does acknowledge SOB with exertion. She states this is worsening. She does acknowledge orthopnea. She denies PND. She does not have bleeding issues; no blood in urine, stool, or nosebleeds. She does acknowledge fatigue. She denies myalgias, or claudication. She does not have edema, or sudden weight gain. She does acknowledge dizziness with palpitations or quick positional changes. She denies lightheadedness, syncopal or near syncopal episodes, and headaches. 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 Required: No Accompanied by: Self Is patient in pain?: No Allergies dog dander Allergy (Severe, Verified 04/26/25 13:10) Swelling Opioids - Morphine Analogues Allergy (Severe, Verified 04/26/25 13:10) Anaphylaxis perfume Allergy (Severe, Verified 04/26/25 13:10) swelling venom-honey bee Allergy (Severe, Verified 04/26/25 13:10) Anaphylaxis ketorolac (From Toradol) Allergy (Intermediate, Verified 04/26/25 13:10) Nausea bee pollen Allergy (Verified 04/26/25 13:10) Anaphylaxis codeine Allergy (Verified 04/26/25 13:10) Anaphylaxis niacin Allergy (Verified 04/26/25 13:10) Angioedema oxycodone HCl (From Percocet) Allergy (Verified 04/26/25 13:10) Anaphylaxis propoxyphene napsylate (From Darvocet-N) Allergy (Verified 04/26/25 13:10) Angioedema simvastatin (From Zocor) Allergy (Verified 04/26/25 13:10) Angioedema adhesive Adverse Reaction (Severe, Verified 04/26/25 13:10) Other hydromorphone (From Dilaudid) Adverse Reaction (Mild, Verified 04/26/25 13:10) Other Medications ?Medication ?Instructions ?Recorded ?Confirmed ?Type disability placard #1 ea 11/13/20 04/26/25 Rx multivitamin (Daily Multi-Vitamin 1 tab PO DAILY 12/1604/26/25 History tablet) apixaban 5 mg tablet (Eliquis) 5 mg PO BID #180 tabs 0 11/06/24 04/26/25 Rx diltiazem HCl 240 mg 240 mg PO DAILY #90 caps 04/26/25 Rx capsule,extended release 24 hr ezetimibe 10 mg tablet 10 mg PO DAILY #90 tabs 10/2504/26/25 Rx flecainide 100 mg tablet 100 mg PO Q12H #180 tabs 03/1804/26/25 Rx gemfibrozil 600 mg tablet See Rx Instructions .Route 0 04/26/25 04/26/25 Rx .COMPLEX #180 tabs losartan 50 mg-hydrochlorothiazide 1 tab PO QDAY #90 T ABLETS 04/26/25 04/26/25 Rx 12.5 mg tablet Have you fallen in the past year?: No PFSH Medical History High cholesterol Tear of medial meniscus of left knee Osteoarthritis of left knee Synovial cyst of popliteal space [Poe], left knee Fecal incontinence Change in bowel habits GERD (gastroesophageal reflux disease) Anxiety and depression Wears glasses Arthritis Anemia Back pain Restless legs Heartburn Shortness of breath on exertion Leg cramps Hypertension History of echocardiogram History of stress test Cardiology follow-up encounter History of atrial fibrillation Cough Asthma exacerbation Upper respiratory infection Preventative health care Colon cancer screening Paroxysmal atrial fibrillation Routine adult health maintenance Frequent headaches Breast lump in female Back problem Seasonal allergies Atrial fibrillation Essential (primary) hypertension Mixed hyperlipidemia Paroxysmal ventricular tachycardia Chest pain Syncope and collapse Dyspnea on exertion Dizziness Nonrheumatic aortic valve insufficiency Asthma (12/06/15) Dizziness and giddiness Dyspnea on exertion Chest pain Palpitations Left ventricular hypertrophy Syncope and collapse Surgical History History of knee surgery H/O arthroscopy of left knee History of cardiac catheterization Hx of colonoscopy History of bilateral breast reduction surgery History of left heart catheterization (05/25/18) History of lumpectomy of left breast History of partial hysterectomy Hx of tonsillectomy H/O tubal ligation Family History Father CVA (cerebral vascular accident) Diabetes Hypertension High cholesterol Mother Breast cancer Cancer Diabetes Hypertension Grandmother CAD (coronary artery disease) Myocardial infarction, Onset Age: 68 Brother Diabetes Aunt Cancer Social History Smoking Status: Former smoker quit date: 06/25/96 pack-years: 16 Tobacco: How many years used: 12 Electronic Cigarette Use: not used how long ago did patient quit smokin years ago second hand exposure: No alcohol intake: current alcohol intake frequency: holidays/special occasions only Alcohol type: wine substance use type: does not use caffeine: Yes Type: coffee Number of servings: 1 what type of physical activity do you participate in: none additional social history: DOES USE ASPIRIN DOES USE IBUPROFEN ROS Const Const: Positive for fatigue and weakness Eyes Eyes: Negative for change in vision ENT ENT: Positive for dizziness and balance problems Cardio Chest Pain: Yes Frequency: daily Character: tightness Onset: other Location: mid sternal and left chest Duration: minutes Palpitations: Yes (fluttering) feels like its: pounding and irregular Edema: None Resp Respiratory: Positive for SOB with activity, SOB at rest and SOB orthopnea\SOB lying down GI GI: Negative nausea or heartburn Musc Musc: Positive for balance problems Neuro Neuro: Positive for dizziness and weakness; Negative for lightheadedness, near syncope or syncope Endo Endo: Positive for fatigue Cardiology Exam Const Appearance: cooperative, healthy appearing and no acute distress Nutritional Appearance: overweight Orientation: alert and oriented x3 Head Head: normal to inspection Ears: hearing grossly normal bilaterally Nose: external nose normal Face and Sinus: face symmetric Eyes General: appearance normal, both eyes and all related structures Eyelids: eyelids normal Conjunctivae: conjunctivae normal Pupils: PERRL and pupil size EOM: EOM intact bilaterally Neck Neck: no JVD Carotids: Negative bruit Chest Chest inspection: normal inspection of the chest Auscultation: Bilateral: Clear to Auscultation Cardio Palpation: normal PMI Rate: regular rate Rhythm: regular rhythm; Negative ectopic beats Heart sounds: S1 normal and S2 normal; Negative rub, gallop or murmur GI GI: normal to inspection Neuro General: patient alert and patient oriented x3 Skin Skin: no rashes or lesions noted Extremities Pulses: Normal: Right Posterior Tibial Pulse, Left Posterior Tibial Pulse, Right Radial Pulse and Left Radial Pulse Lower Extremity Edema: None: Bilateral Psych Psychological: normal affect Supplemental Info Supplemental Information Echocardiogram 01/17/2024 Interpretation Summary Normal LV size. Left ventricular systolic function is normal. The left ventricular ejection fraction is 70 %. Mild (1+) eccentric aortic valve insufficiency. Carotid Duplex 12/27/2023 Interpretation Summary Mild (<50%) stenosis right extracranial internal carotid. Normal left extracranial internal carotid. Patent and antegrade vertebrals bilaterally. Stress Echocardiogram 01/05/2020 Interpretation Summary The estimated ejection fraction is 65 %. Normal, adequate, treadmill echocardiogram. Negative for ischemia by EKG and echocardiographic criteria. No anginal symptoms noted. No arrhythmias noted. Appropriate blood pressure response to exercise. Test terminated due to target heart rate achieved and dyspnea. Decrease sensitivity due to poor echo windows requiring Definity agent. Patient tolerated procedure well. No complications. The study was technically difficult. Contrast injection was performed. Cardiac Catheterization 05/26/2018 CONCLUSIONS Normal coronary arteries Normal LV size, wall motion,and systolic function Perserved Left Ventricular systolic function with normal EDP Left Ventricular Hypertrophy - Moderate RECOMMENDATIONS Referral back to Dr Chase for Asthma or other pulmonary issues. Increase cardizem to 240mg po daily for LVH and tachycardia. CORONARY ANGIOGRAPHY DOMINANCE: Right Dominant LEFT HEART ASSESSMENT Left Ventricular Ejection Fraction: by LV Gram 75 % Normal LV wall motion Normal Left Ventricular systolic function Normal Left Ventricular systolic function Normal Left Ventricular End Diastolic Pressure Left Ventricular Hypertrophy RIGHT HEART ASSESSMENT Thermal CO: 6.11 Thermal CI: 3.41 Leonarda CO: 5.43 Leonarda CI: 3.03 PW: 08/03 7 PA: 15/06 14 RV: 27/-1 5 RA: 01/29 5 PVR: 92 SVR: 1270 Right Heart pressures - normal LEFT MAIN: Angiographically normal LEFT ANTERIOR DECENDING ARTERY: Angiographically normal CIRCUMFLEX ARTERY: Angiographically normal RIGHT CORONARY ARTERY: Angiographically normal Labs: LDL Cholesterol 102 mg/dL (0-130) HDL Cholesterol 50 mg/dL (40-) Cholesterol 170 mg/dL (<=200) Triglycerides 111 mg/dL (-199) Diagnostics: Electrocardiogram Echocardiogram Transesophageal Echocardiogram Stress Echocardiogram Cardiac Catheterization Chest X-Ray Abdomen/Pelvis CT Carotid Duplex Pulmonary: Pulmonary Function Test Past Visits: Cardiology Visit 04/26/25 Assessment and Plan Assessment and Plan (1) Paroxysmal atrial fibrillation: Status: Acute Plan: Patient has a history of paroxysmal atrial fibrillation. She does acknowledge palpitations daily. She appears to be in a regular rhythm on exam today. Her heart rate is well-controlled at this time. Would like to obtain a 24-hour Holter monitor to further assess this. Depending on results, further recommendations will be made. She will continue Eliquis 5 mg twice daily, diltiazem 240 mg daily, and flecainide 100 mg twice daily. The patient has a history of normal coronary arteries by cath 6 years ago and minimal valvular heart disease. (2) Mixed hyperlipidemia: Status: Chronic Plan: Patient has a history of hyperlipidemia. Her most recent lipid panel from 03/24/2025: Cholesterol 170, HDL 50, LDL 98, triglycerides 111. She will continue Zetia 10 mg daily, along with aggressive risk factor and lifestyle modifications. (3) Palpitations: Status: Chronic Comment: Patient's palpitations coincide with benign PACs and PVCs on her recent 30-day event recorder. Plan: Patient does acknowledge palpitations. Would like to obtain a 24-hour Holter monitor to further assess her heart rate and rhythm. Depending on results, further recommendations will be made. (4) Dyspnea on exertion: Status: Acute Plan: Patient acknowledges dyspnea. Would like to obtain an echocardiogram, and lab work to further assess this. Depending on results, further recommendations will be made. Orders: Orders Echo Complete Today R06.02 - Shortness of breath, R06.09 - Other forms of dyspnea Basic Metabolic Profile (BMP) Today R06.02 - Shortness of breath CBC W/Diff, Automated Today R06.02 - Shortness of breath Thyroid Stim Hormone (TSH) Today R00.2 - Palpitations, R06.02 - Shortness of breath Magnesium Today R06.02 - Shortness of breath Pro- Brain NATRIURETIC PEPTIDE Today R06.02 - Shortness of breath Cardiac Holter Monitor, 24 Hrs Today R00.2 - Palpitations Medications: Changed From losartan-hydrochlorothiazide 50-12.5 mg TAKE 1 TABLET BY MOUTH EVERY DAY 90 TABLETS 1RF To losartan-hydrochlorothiazide 50-12.5 mg 1 TAB PO QDAY 90 TABLETS 3RF Refilled gemfibrozil TAKE 1 TABLET BY MOUTH TWICE A DAY 180 tabs 3RF Plan Details Additional Comments: Patient will follow-up in 3 months, or sooner if needed. Thank you for allowing me to participate in the care of your patient. Please do not hesitate to call if any issues arise. This note was generated using a voice recognition system and there may be incorrect words, spelling, or punctuation that were not noted when reviewing the office note prior to saving. Portions of this documentation were copied and pasted from previous office visit notes to provide cohesive continuity of the history. The note has been reviewed, edited, and updated, as necessary. 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) Coding Level of Care Code Off vis,est,level 4 Diagnoses Paroxysmal atrial fibrillation I48.0 Mixed hyperlipidemia E78.2 Palpitations R00.2 Dyspnea on exertion R06.09 Coding Level of Care Code Off vis,est,level 4 Diagnoses Paroxysmal atrial fibrillation I48.0 Mixed hyperlipidemia E78.2 Palpitations R00.2 Dyspnea on exertion R06.09 Clinical Quality Measures Falls Risk Screening/Assistive Devices Have you fallen in the past year?: No 04/26/25 [id number] <Electronically signed by Karlie Johnson NP [employer]INE BUILDER-C> Date _ Karlie Johnson NP [employer] BUILDER-C Cosigner Signature: Date (if applicable) CC: Dr. Yennifer Johnson MD ~ [facility] Work Phone: 1(201) 815-720407-03-2025 Evaluation note* Diagnosis Onset Date Resolution Status Admit Date Dyspnea on exertion acute April 26, 2025 12:56pm Paroxysmal atrial fibrillation acute April 26, 2025 12:56pm Mixed hyperlipidemia chronic April 26, 2025 12:56pm Palpitations chronic April 26 12:56pm [facility] Work Phone: 1(528) 266-602807-03-2025 Progress [facility] [place], [place] [address] OFFICE VISIT Date of Service: 04/26/25 MR#: [id number] Acct: [id number] Name: LEEANN CROCKETT Rep #: [id number] : 1960 Provider: GINO Johnson Age/Sex: 65/F [place] [facility] [place] Status: Signed HPI HPI History of Present Illness Details: This is a 65-year-old white female who presents to the office today for a cardiovascular follow up visit. She has a history of paroxysmal atrial fibrillation, hyperlipidemia and hypertension. She was extensively evaluated back in 2017 including an invasive left heart catheterization. That cath showed normal LV function ejection fraction 75% and completely normal coronary arteries. The patient does have a strong family history of coronary artery disease she has hyperlipidemia which is well- controlled. She quit smoking in 1995 her blood pressure is well-controlled and she is not diabetic. Patient has a history of paroxysmal atrial fibrillation that has been well- controlled on combination of flecainide and diltiazem. She had an event recorder which she wore from December 20, 2023 through January 16, 2024. This showed no atrial fibrillation. She had occasional PVCs and PACs and some short runs of sinus tachycardia where she felt symptoms. She also had sinus tachycardia without any symptoms and she had some palpitations with normal sinus rhythm. At the patient's last office visit December 16, 2023 the patient had a normal CBC, electrolytes including calcium and magnesium were normal and she had normalthyroid studies. From a cardiac standpoint, the patient is doing well. She does acknowledge palpitations- she describes this as a fluttering/fast beat. She does acknowledgechest tightness-midsternal/left chest. She does acknowledge SOB with exertion. She states this is worsening. She does acknowledge orthopnea. She denies PND. She does not have bleeding issues; no blood in urine, stool, or nosebleeds. She does acknowledge fatigue. She denies myalgias, or claudication. She does not have edema, or sudden weight gain. She does acknowledge dizziness with palpitations or quick positional changes. She denies lightheadedness, syncopal or near syncopal episodes, and headaches. 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 Required: No Accompanied by: Self Is patient in pain?: No Allergies dog dander Allergy (Severe, Verified 04/26/25 13:10) Swelling Opioids - Morphine Analogues Allergy (Severe, Verified 04/26/25 13:10) Anaphylaxis perfume Allergy (Severe, Verified 04/26/25 13:10) swelling venom-honey bee Allergy (Severe, Verified 04/26/25 13:10) Anaphylaxis ketorolac (From Toradol) Allergy (Intermediate, Verified 04/26/25 13:10) Nausea bee pollen Allergy (Verified 04/26/25 13:10) Anaphylaxis codeine Allergy (Verified 04/26/25 13:10) Anaphylaxis niacin Allergy (Verified 04/26/25 13:10) Angioedema oxycodone HCl (From Percocet) Allergy (Verified 04/26/25 13:10) Anaphylaxis propoxyphene napsylate (From Darvocet-N) Allergy (Verified 04/26/25 13:10) Angioedema simvastatin (From Zocor) Allergy (Verified 04/26/25 13:10) Angioedema adhesive Adverse Reaction (Severe, Verified 04/26/25 13:10) Other hydromorphone (From Dilaudid) Adverse Reaction (Mild, Verified 04/26/25 13:10) Other Medications ?Medication ?Instructions ?Recorded ?Confirmed ?Type disability placard #1 ea 11/13/20 04/26/25 Rx multivitamin (Daily Multi-Vitamin 1 tab PO DAILY 12/1604/26/25 History tablet) apixaban 5 mg tablet (Eliquis) 5 mg PO BID #180 tabs 0 11/06/24 04/26/25 Rx diltiazem HCl 240 mg 240 mg PO DAILY #90 caps 04/26/25 Rx capsule,extended release 24 hr ezetimibe 10 mg tablet 10 mg PO DAILY #90 tabs 10/2504/26/25 Rx flecainide 100 mg tablet 100 mg PO Q12H #180 tabs 03/1804/26/25 Rx gemfibrozil 600 mg tablet See Rx Instructions .Route 0 04/26/25 04/26/25 Rx .COMPLEX #180 tabs losartan 50 mg-hydrochlorothiazide 1 tab PO QDAY #90 T ABLETS 04/26/25 04/26/25 Rx 12.5 mg tablet Have you fallen in the past year?: No PFSH Medical History High cholesterol Tear of medial meniscus of left knee Osteoarthritis of left knee Synovial cyst of popliteal space [Poe], left knee Fecal incontinence Change in bowel habits GERD (gastroesophageal reflux disease) Anxiety and depression Wears glasses Arthritis Anemia Back pain Restless legs Heartburn Shortness of breath on exertion Leg cramps Hypertension History of echocardiogram History of stress test Cardiology follow-up encounter History of atrial fibrillation Cough Asthma exacerbation Upper respiratory infection Preventative health care Colon cancer screening Paroxysmal atrial fibrillation Routine adult health maintenance Frequent headaches Breast lump in female Back problem Seasonal allergies Atrial fibrillation Essential (primary) hypertension Mixed hyperlipidemia Paroxysmal ventricular tachycardia Chest pain Syncope and collapse Dyspnea on exertion Dizziness Nonrheumatic aortic valve insufficiency Asthma (12/06/15) Dizziness and giddiness Dyspnea on exertion Chest pain Palpitations Left ventricular hypertrophy Syncope and collapse Surgical History History of knee surgery H/O arthroscopy of left knee History of cardiac catheterization Hx of colonoscopy History of bilateral breast reduction surgery History of left heart catheterization (05/25/18) History of lumpectomy of left breast History of partial hysterectomy Hx of tonsillectomy H/O tubal ligation Family History Father CVA (cerebral vascular accident) Diabetes Hypertension High cholesterol Mother Breast cancer Cancer Diabetes Hypertension Grandmother CAD (coronary artery disease) Myocardial infarction, Onset Age: 68 Brother Diabetes Aunt Cancer Social History Smoking Status: Former smoker quit date: 06/25/96 pack-years: 16 Tobacco: How many years used: 12 Electronic Cigarette Use: not used how long ago did patient quit smokin years ago second hand exposure: No alcohol intake: current alcohol intake frequency: holidays/special occasions only Alcohol type: wine substance use type: does not use caffeine: Yes Type: coffee Number of servings: 1 what type of physical activity do you participate in: none additional social history: DOES USE ASPIRIN DOES USE IBUPROFEN ROS Const Const: Positive for fatigue and weakness Eyes Eyes: Negative for change in vision ENT ENT: Positive for dizziness and balance problems Cardio Chest Pain: Yes Frequency: daily Character: tightness Onset: other Location: mid sternal and left chest Duration: minutes Palpitations: Yes (fluttering) feels like its: pounding and irregular Edema: None Resp Respiratory: Positive for SOB with activity, SOB at rest and SOB orthopnea\SOB lying down GI GI: Negative nausea or heartburn Musc Musc: Positive for balance problems Neuro Neuro: Positive for dizziness and weakness; Negative for lightheadedness, near syncope or syncope Endo Endo: Positive for fatigue Cardiology Exam Const Appearance: cooperative, healthy appearing and no acute distress Nutritional Appearance: overweight Orientation: alert and oriented x3 Head Head: normal to inspection Ears: hearing grossly normal bilaterally Nose: external nose normal Face and Sinus: face symmetric Eyes General: appearance normal, both eyes and all related structures Eyelids: eyelids normal Conjunctivae: conjunctivae normal Pupils: PERRL and pupil size EOM: EOM intact bilaterally Neck Neck: no JVD Carotids: Negative bruit Chest Chest inspection: normal inspection of the chest Auscultation: Bilateral: Clear to Auscultation Cardio Palpation: normal PMI Rate: regular rate Rhythm: regular rhythm; Negative ectopic beats Heart sounds: S1 normal and S2 normal; Negative rub, gallop or murmur GI GI: normal to inspection Neuro General: patient alert and patient oriented x3 Skin Skin: no rashes or lesions noted Extremities Pulses: Normal: Right Posterior Tibial Pulse, Left Posterior Tibial Pulse, Right Radial Pulse and Left Radial Pulse Lower Extremity Edema: None: Bilateral Psych Psychological: normal affect Supplemental Info Supplemental Information Echocardiogram 01/17/2024 Interpretation Summary Normal LV size. Left ventricular systolic function is normal. The left ventricular ejection fraction is 70 %. Mild (1+) eccentric aortic valve insufficiency. Carotid Duplex 12/27/2023 Interpretation Summary Mild (<50%) stenosis right extracranial internal carotid. Normal left extracranial internal carotid. Patent and antegrade vertebrals bilaterally. Stress Echocardiogram 01/05/2020 Interpretation Summary The estimated ejection fraction is 65 %. Normal, adequate, treadmill echocardiogram. Negative for ischemia by EKG and echocardiographic criteria. No anginal symptoms noted. No arrhythmias noted. Appropriate blood pressure response to exercise. Test terminated due to target heart rate achieved and dyspnea. Decrease sensitivity due to poor echo windows requiring Definity agent. Patient tolerated procedure well. No complications. The study was technically difficult. Contrast injection was performed. Cardiac Catheterization 05/26/2018 CONCLUSIONS Normal coronary arteries Normal LV size, wall motion,and systolic function Perserved Left Ventricular systolic function with normal EDP Left Ventricular Hypertrophy - Moderate RECOMMENDATIONS Referral back to Dr Chase for Asthma or other pulmonary issues. Increase cardizem to 240mg po daily for LVH and tachycardia. CORONARY ANGIOGRAPHY DOMINANCE: Right Dominant LEFT HEART ASSESSMENT Left Ventricular Ejection Fraction: by LV Gram 75 % Normal LV wall motion Normal Left Ventricular systolic function Normal Left Ventricular systolic function Normal Left Ventricular End Diastolic Pressure Left Ventricular Hypertrophy RIGHT HEART ASSESSMENT Thermal CO: 6.11 Thermal CI: 3.41 Leonarda CO: 5.43 Leonarda CI: 3.03 PW: 08/03 7 PA: 15/06 14 RV: 27/-1 5 RA: 01/29 5 PVR: 92 SVR: 1270 Right Heart pressures - normal LEFT MAIN: Angiographically normal LEFT ANTERIOR DECENDING ARTERY: Angiographically normal CIRCUMFLEX ARTERY: Angiographically normal RIGHT CORONARY ARTERY: Angiographically normal Labs: LDL Cholesterol 102 mg/dL (0-130) HDL Cholesterol 50 mg/dL (40-) Cholesterol 170 mg/dL (<=200) Triglycerides 111 mg/dL (-199) Diagnostics: Electrocardiogram Echocardiogram Transesophageal Echocardiogram Stress Echocardiogram Cardiac Catheterization Chest X-Ray Abdomen/Pelvis CT Carotid Duplex Pulmonary: Pulmonary Function Test Past Visits: Cardiology Visit 04/26/25 Assessment and Plan Assessment and Plan (1) Paroxysmal atrial fibrillation: Status: Acute Plan: Patient has a history of paroxysmal atrial fibrillation. She does acknowledge palpitations daily. She appears to be in a regular rhythm on exam today. Her heart rate is well-controlled at this time. Would like to obtain a 24-hour Holter monitor to further assess this. Depending on results, further r ecommendations will be made. She will continue Eliquis 5 mg twice daily, diltiazem 240 mg daily, and flecainide 100 mg twice daily. The patient has a history of normal coronary arteries by cath 6 years ago and minimal valvular heart disease. (2) Mixed hyperlipidemia: Status: Chronic Plan: Patient has a history of hyperlipidemia. Her most recent lipid panel from 03/24/2025: Cholesterol 170, HDL 50, LDL 98, triglycerides 111. She will continue Zetia 10 mg daily, along with aggressive risk factor and lifestyle modifications. (3) Palpitations: Status: Chronic Comment: Patient's palpitations coincide with benign PACs and PVCs on her recent 30-day event recorder. Plan: Patient does acknowledge palpitations. Would like to obtain a 24-hour Holter monitor to further assess her heart rate and rhythm. Depending on results, further recommendations will be made. (4) Dyspnea on exertion: Status: Acute Plan: Patient acknowledges dyspnea. Would like to obtain an echocardiogram, and lab work to further assess this. Depending on results, further recommendations will be made. Orders: Orders Echo Complete Today R06.02 - Shortness of breath, R06.09 - Other forms of dyspnea Basic Metabolic Profile (BMP) Today R06.02 - Shortness of breath CBC W/Diff, Automated Today R06.02 - Shortness of breath Thyroid Stim Hormone (TSH) Today R00.2 - Palpitations, R06.02 - Shortness of breath Magnesium Today R06.02 - Shortness of breath Pro- Brain NATRIURETIC PEPTIDE Today R06.02 - Shortness of breath Cardiac Holter Monitor, 24 Hrs Today R00.2 - Palpitations Medications: Changed From losartan-hydrochlorothiazide 50-12.5 mg TAKE 1 TABLET BY MOUTH EVERY DAY 90 TABLETS 1RF To losartan-hydrochlorothiazide 50-12.5 mg 1 TAB PO QDAY 90 TABLETS 3RF Refilled gemfibrozil TAKE 1 TABLET BY MOUTH TWICE A DAY 180 tabs 3RF Plan Details Additional Comments: Patient will follow-up in 3 months, or sooner if needed. Thank you for allowing me to participate in the care of your patient. Please do not hesitate to call if any issues arise. This note was generated using a voice recognition system and there may be incorrect words, spelling, or punctuation that were not noted when reviewing the office note prior to saving. Portions of this documentation were copied and pasted from previous office visit notes to provide cohesive continuity of the history. The note has been reviewed, edited, and updated, as necessary. 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) Coding Level of Care Code Off vis,est,level 4 Diagnoses Paroxysmal atrial fibrillation I48.0 Mixed hyperlipidemia E78.2 Palpitations R00.2 Dyspnea on exertion R06.09 Coding Level of Care Code Off vis,est,level 4 Diagnoses Paroxysmal atrial fibrillation I48.0 Mixed hyperlipidemia E78.2 Palpitations R00.2 Dyspnea on exertion R06.09 Clinical Quality Measures Falls Risk Screening/Assistive Devices Have you fallen in the past year?: No 04/26/25 1329 ENGINE BUILDER ENGINE BUILDER-C> Date _ Karlie Johnson ENGINE BUILDER ENGINE BUILDER-C Cosigner Signature: Date (if applicable) CC: Dr. Yennifer Johnson MD ~ [facility]06-11-2024 History of Present illness Narrative* Elizabeth Song, PT - 04/04/2024 3:05 PM EDT Physical Therapy Physical Therapy Treatment Patient Name: Leeann Alonso Today's Date: 04/04/2024 Time Calculation Start Time: 1345 Stop Time: 1415 Time Calculation (min): 30 min Assessment/Plan PT Assessment PT Assessment Results: Decreased strength, Decreased range of motion, Decreased endurance, Impairedbalance, Decreased mobility, Decreased coordination, Impaired judgement, Decreased safety awareness, Impaired vision, Impaired sensation, Decreased skin integrity, Orthopedic restrictions, Pain Rehab Prognosis: Excellent Evaluation/Treatment Tolerance: Patient tolerated treatment well Medical Staff Made Aware: Yes Strengths: Ability to acquire knowledge Barriers to Participation: Comorbidities End of Session Communication: Bedside nurse Assessment Comment: The patient is progressing well towards functional goals during hospital stay; supervision for transfers and ambulation with RW. The patient would benefit from skilled therapy services after DC to assist with addressing functional deficits. End of Session Patient Position: Bed, 3 rail up, Alarm off, not on at start of session PT Plan Inpatient/Swing Bed or Outpatient: Inpatient PT Plan Treatment/Interventions: Transfer training, Bed mobility, Gait training, Stair training, Balance training, Neuromuscular re-education, Strengthening, Endurance training, Range of motion, Therapeutic exercise, Therapeutic activity, Home exercise program PT Plan: Skilled PT PT Frequency: BID PT Discharge Recommendations: Low intensity level of continued care Equipment Recommended upon Discharge: Wheeled walker PT Recommended Transfer Status: Assist x1 PT - OK to Discharge: Yes General Visit Information: PT Visit PT Received On: 04/04/24 Response to Previous Treatment: Patient with no complaints from previous session. General Family/Caregiver Present: Yes Caregiver Feedback: spouse present Prior to Session Communication: Bedside nurse Patient Position Received: Up in chair, Alarm off, not on at start of session Preferred Learning Style: verbal, visual General Comment: Cleared by nursing. Pt pleasant and agreeable to therapy Subjective Precautions: Precautions Hearing/Visual Limitations: glasses LE Weight Bearing Status: Weight Bearing as Tolerated Medical Precautions: Fall precautions Post-Surgical Precautions: Left total knee precautions Precautions Comment: Educated pt on TKR precautions, handout provided Objective Pain: Pain Assessment Pain Assessment: 0-10 Pain Score: 6 Pain Type: Surgical pain Pain Location: Knee Pain Orientation: Left Pain Interventions: Repositioned, Ambulation/increased activity Cognition: Cognition Overall Cognitive Status: Within Functional Limits Orientation Level: Oriented X4 Coordination: Coordination Comment: incresed time for mobility completion Postural Control: Postural Control Posture Comment: mild forward head posture Static Standing Balance Static Standing-Balance Support: Bilateral upper extremity supported (RW) Static Standing-Level of Assistance: Close supervision Static Standing-Comment/Number of Minutes: Narrow FATOU Dynamic Standing Balance Dynamic Standing-Balance Support: Bilateral upper extremity supported (RW) Dynamic Standing-Comments: Distant supervision for ambulation with RW Extremity/Trunk Assessments: RLE RLE : Within Functional Limits LLE LLE : (ankle WFL; knee flex/ext: 3/5; knee AROM: 5-85 deg; hip flex/ext: WFL) Activity Tolerance: Activity Tolerance Endurance: Tolerates 10 - 20 min exercise with multiple rests Rate of Perceived Exertion (RPE): 5/10 Treatments: Therapeutic Exercise Therapeutic Exercise Performed: Yes Therapeutic Exercise Activity 1: AP x 15 reps alin Therapeutic Exercise Activity 2: QS x 5 reps alin Therapeutic Exercise Activity 3: Heel slides x 5 reps alin Therapeutic Exercise Activity 4: LAQ x 8 reps LLE Therapeutic Activity Therapeutic Activity Performed: Yes Therapeutic Activity 1: Education provided on hip precautions with VCs provided throughout mobility. Bed Mobility Bed Mobility: Yes Bed Mobility 1 Bed Mobility 1: Sitting to supine Level of Assistance 1: Distant supervision Bed Mobility Comments 1: good completion with HOB to 0 deg Ambulation/Gait Training Ambulation/Gait Training Performed: Yes Ambulation/Gait Training 1 Surface 1: Level tile Device 1: Rolling walker Assistance 1: Distant supervision Quality of Gait 1: Antalgic, Shuffling gait Comments/Distance (ft) 1: 30ftx4 with RW; slow skyler with reciprocal gait pattern Transfers Transfer: Yes Transfer 1 Transfer From 1: Sit to, Stand to Transfer to 1: Stand, Sit Technique 1: Sit to stand, Stand to sit Transfer Device 1: Walker Transfer Level of Assistance 1: Distant supervision Trials/Comments 1: completed x 4 trials; intermittent VC for completion Stairs Stairs: Yes Stairs Rails 1: Right Curb Step 1: No Device 1: Single point cane Assistance 1: Minimum assistance Comment/Number of Steps 1: 4 steps ascend/descend with use of 1 rail and cane; handout issued for use of cane on steps. Good completion; Prosper with VCs for safe sequencing provided. Outcome Measures: [facility] Basic Mobility Turning from your back to your side while in a flat bed without using bedrails: None Moving from lying on your back to sitting on the side of a flat bed without using bedrails: None Moving to and from bed to chair (including a wheelchair): A little Standing up from a chair using your arms (e.g. wheelchair or bedside chair): A little To walk in hospital room: A little Climbing 3-5 steps with railing: A little Basic Mobility - Total Score: 20 Encounter Problems Encounter Problems (Active) PT Problem Strength (Progressing) Start: 04/03/24 Expected End: 04/17/24 The patient will demonstrate an overall strength of 4/5 in BLE to assist with completion of functional mobility. Knee Precautions (Met) Start: 04/03/24 Expected End: 04/17/24 Resolved: 04/04/24 The patient will be able to recall 3/3 knee precautions with minimal VC. Functional Mobility (Progressing) Start: 04/03/24 Expected End: 04/17/24 The patient will complete functional mobility (bed mobility, transfers, etc.) at a mod indep level with LRAD by DC. Ambulation (Progressing) Start: 04/03/24 Expected End: 04/17/24 The patient will be able to ambulate at a mod indep level for >75ftx1 with RW and steady gait. Stairs (Progressing) Start: 04/03/24 Expected End: 04/17/24 The patient will be able to ascend/descend 2 steps without the use of rails at a mod indep level byDC. Lt Knee AROM (Progressing) Start: 04/03/24 Expected End: 04/17/24 The patient will be able to demonstrate AROM of Lt knee of 0-90 deg to assist with completion of functional mobility. * Keshawn Stevenson, SOFTWARE SECURITY CONSULTANT-DRAWER MAKER - 04/04/2024 11:59 AM EDT Celeste Crockett is a 64 y.o. female on day 0 of admission presenting with Arthritis of left knee. Subjective Patient seen and examined. Awake/alert/oriented. Denies chest pain, shortness of breath, fevers, chills, nausea, or vomiting. No abdominal discomfort. Denies lightheadedness or dizziness. No dysuria. Objective Last Recorded Vitals BP 133/71 (BP Location: Left arm, Patient Position: Lying) Pulse 76 Temp 36.8 C (98.2 F) (Temporal) Resp 17 Wt 80.6 kg (177 lb 11.1 oz) SpO2 100% Intake/Output last 3 Shifts: Intake/Output Summary (Last 24 hours) at 04/04/2024 1159 Last data filed at 04/04/2024 1101 Gross per 24 hour Intake 1000 ml Output 3510 ml Net -2510 ml Admission Weight Weight: 80.6 kg (177 lb 11.1 oz) (04/04/24 0327) Daily Weight 04/04/24 : 80.6 kg (177 lb 11.1 oz) Image Results XR chest 1 view Narrative: Interpreted By: Rafael Shepard, STUDY: XR CHEST 1 VIEW; ; 04/04/2024 8:59 am INDICATION: Signs/Symptoms:leukocytosis. COMPARISON: None. ACCESSION NUMBER(S): [id number] ORDERING CLINICIAN: KESHAWN STEVENSON TECHNIQUE: Single AP view chest FINDINGS: Cardiac silhouette is within normal limits. No infiltrate or effusion identified. Visualized osseous structures demonstrate glenohumeral joint osteoarthritis bilaterally. Impression: 1. No acute process MACRO: None Signed by: Rafael Shepard 04/04/2024 9:46 AM Dictation workstation: [id number] Physical Exam Vitals reviewed. Constitutional: Appearance: Normal appearance. HENT: Head: Normocephalic and atraumatic. Eyes: Extraocular Movements: Extraocular movements intact. Conjunctiva/sclera: Conjunctivae normal. Cardiovascular: Rate and Rhythm: Normal rate and regular rhythm. Pulmonary: Effort: Pulmonary effort is normal. Breath sounds: Normal breath sounds. No wheezing, rhonchi or rales. Abdominal: General: Bowel sounds are normal. Palpations: Abdomen is soft. Tenderness: There is no abdominal tenderness. Skin: General: Skin is warm and dry. Comments: Surgical dressing intact Neurological: General: No focal deficit present. Mental Status: She is alert and oriented to person, place, and time. Relevant Results Lab Results Component Value Date GLUCOSE 151 (H) 04/04/2024 CALCIUM 8.7 04/04/2024 NA 139 04/04/2024 K 4.1 04/04/2024 CO2 24 04/04/2024 CL 105 04/04/2024 BUN 18 04/04/2024 CREATININE 0.70 04/04/2024 Lab Results Component Value Date WBC 21.9 (H) 04/04/2024 HGB 10.5 (L) 04/04/2024 HCT 30.1 (L) 04/04/2024 MCV 86 04/04/2024 PLT 360 04/04/2024 XR chest 1 view Result Date: 04/04/2024 Interpreted By: Rafael Shepard, STUDY: XR CHEST 1 VIEW; ; 04/04/2024 8:59 am INDICATION: Signs/Symptoms:leukocytosis. COMPARISON: None. ACCESSION NUMBER(S): [id number] ORDERING CLINICIAN: KESHAWN STEVENSON TECHNIQUE: Single AP view chest FINDINGS: Cardiac silhouette is within normal limits. No infiltrate or effusion identified. Visualized osseous structures demonstrate glenohumeral joint osteoarthritis bilaterally. 1. No acute process MACRO: None Signed by: Rafael Shepard 04/04/2024 9:46 AM Dictation workstation:[id number] XR knee left 1-2 views Result Date: 04/03/2024 Interpreted By: Herman Marquez, STUDY: XR KNEE LEFT 1-2 VIEWS; 04/03/2024 10:27 am INDICATION: Signs/Symptoms:Post-op knee. COMPARISON: None. ACCESSION NUMBER(S): [id number] ORDERING CLINICIAN: TIN WEST FINDINGS: Components of left knee arthroplasty are in anatomic alignment. Postoperative soft tissue gas. New left knee arthroplasty in anatomic alignment. MACRO: None Signed by: Herman Marquez 04/03/2024 11:33 AM Dictation workstation: [id number] Assessment/Plan Principal Problem: Arthritis of left knee Active Problems: HTN (hypertension) Hyperlipidemia Valvular heart disease Atrial fibrillation (Multi) Asthma (HHS-HCC) Anxiety Atrial fibrillation Eliquis resumed per orthopedic surgery at decreased dose Continue flecainide and diltiazem Monitor on tele Left knee osteoarthritis S/p left total knee arthroplasty by Dr. West on 04/03/24 Pain management Incentive spirometer Bowel regimen Management per orthopedic surgery Leukocytosis UA positive, culture pending Will cover with ATB Recommend repeat labs in a week Hypertension Hold losartan/hydrochlorothiazide-resume on discharge Diltiazem resumed Monitor blood pressure Hyperlipidemia Continue zetia and lopid Plan Admitted to orthopedic surgery Pain management/bowel regimen Encourage incentive spirometer DVT prophylaxis: eliquis restarted at decreased dose per ortho PT/OT Script sent for Ceftin for UTI, repeat labs in a week Follow up with her PCP in a week, discussed with the patient Medically stable for discharge Discharge per orthopedic surgery SANDOVAL Marcos * Tin West MD - 04/04/2024 11:55 AM EDT Leeann Alonso is a 64 y.o. female on day 0 of admission presenting with Arthritis of left knee. Subjective Doing well. Resting in bed. Thinks that her face is flushed. She is not sure if she has reacted to the Toradol or not. Pain is otherwise controlled. She was able to ambulate some in the hallway with therapy. No other concerns today. Wants to try to go home. Objective Physical Exam Alert and oriented x 3 Family at the bedside Left lower extremity: Drain output noted. Dressing dry. Still needs some assistance with straight leg raise. Compartments of the thigh and calf are soft. Neurovascular intact distally with active ankle dorsiflexion plantarflexion. Last Recorded Vitals Blood pressure 133/71, pulse 76, temperature 36.8 C (98.2 F), temperature source Temporal, resp. rate 17, weight 80.6 kg (177 lb 11.1 oz), SpO2 100%. Relevant Results I reviewed postoperative imaging of the left knee: Stable positioning of press- fit knee replacement. Results for orders placed or performed during the hospital encounter of 04/03/24 (from the past 24 hour(s)) CBC Result Value Ref Range WBC 21.9 (H) 4.4 - 11.3 x10*3/uL nRBC 0.0 0.0 - 0.0 /100 WBCs RBC 3.51 (L) 4.00 - 5.20 x10*6/uL Hemoglobin 10.5 (L) 12.0 - 16.0 g/dL Hematocrit 30.1 (L) 36.0 - 46.0 % MCV 86 80 - 100 fL MCH 29.9 26.0 - 34.0 pg MCHC 34.9 32.0 - 36.0 g/dL RDW 12.0 11.5 - 14.5 % Platelets 360 150 - 450 x10*3/uL Basic metabolic panel Result Value Ref Range Glucose 151 (H) 65 - 99 mg/dL Sodium 139 133 - 145 mmol/L Potassium 4.1 3.4 - 5.1 mmol/L Chloride 105 97 - 107 mmol/L Bicarbonate 24 24 - 31 mmol/L Urea Nitrogen 18 8 - 25 mg/dL Creatinine 0.70 0.40 - 1.60 mg/dL eGFR >90 >60 mL/min/1.73m*2 Calcium 8.7 8.5 - 10.4 mg/dL Anion Gap 10 <=19 mmol/L Urinalysis with Reflex Culture and Microscopic Result Value Ref Range Color, Urine Light-Yellow Light-Yellow, Yellow, Dark-Yellow Appearance, Urine Clear Clear Specific [place], Urine 1.011 1.005 - 1.035 pH, Urine 5.5 5.0, 5.5, 6.0, 6.5, 7.0, 7.5, 8.0 Protein, Urine NEGATIVE NEGATIVE, 10 (TRACE), 20 (TRACE) mg/dL Glucose, Urine Normal Normal mg/dL Blood, Urine 0.1 (1+) (A) NEGATIVE Ketones, Urine NEGATIVE NEGATIVE mg/dL Bilirubin, Urine NEGATIVE NEGATIVE Urobilinogen, Urine Normal Normal mg/dL Nitrite, Urine NEGATIVE NEGATIVE Leukocyte Esterase, Urine 75 Angi/ L (A) NEGATIVE Microscopic Only, Urine Result Value Ref Range WBC, Urine 6-10 (A) 1-5, NONE /HPF RBC, Urine 11-20 (A) NONE, 1-2, 3-5 /HPF Squamous Epithelial Cells, Urine 1-9 (SPARSE) Reference range not established. /HPF Mucus, Urine FEW Reference range not established. /LPF Assessment/Plan Principal Problem: Arthritis of left knee Active Problems: HTN (hypertension) Hyperlipidemia Valvular heart disease Atrial fibrillation (Multi) Asthma (HHS-HCC) Anxiety Problem List: Left total knee replacement: Postoperative day 1. Mobilize physical therapy weightbearing as tolerated. Plan for home with home health care. DVT risk: She is on Eliquis 5 mg twice daily for A-fib prophylaxis. Will transition to 2.5 mg twicedaily to balance prophylaxis and surgical bleeding risk. Transition after 2 weeks to full dose. Tin West MD * REHANA Snider - 04/04/2024 10:49 AM EDT Occupational Therapy OT Treatment Patient Name: Leeann CORTESN: [id number] Today's Date: 04/04/2024 Time Calculation Start Time: 08 Stop Time: 0849 Time Calculation (min): 39 min Assessment: OT Assessment: Tolerated session well, demonstrating improved functional tolerance with good carryover of TKR precautions throughout tx. Pt would benefit from continued skilled OT services to improvestrength, balance, and functional tolerance to increase independence with IADL/ADL tasks upon homegoing End of Session Communication: Bedside nurse End of Session Patient Position: Up in chair, Alarm off, caregiver present (electrostatic powder coating technician entering) OT Assessment Results: Decreased ADL status, Decreased endurance, Decreased IADLs, Decreased functional mobility Plan: Treatment Interventions: ADL retraining, Functional transfer training, UE strengthening/ROM, Equipment evaluation/education, Patient/family training OT Frequency: 5 times per week OT Discharge Recommendations: Low intensity level of continued care OT - OK to Discharge: Yes Treatment Interventions: ADL retraining, Functional transfer training, UE strengthening/ROM, Equipment evaluation/education, Patient/family training Subjective Previous Visit Info: OT Last Visit OT Received On: 04/04/24 General: General Prior to Session Communication: Bedside nurse Patient Position Received: Bed, 3 rail up, Alarm off, not on at start of session General Comment: Cleared for therapy per RN. Pt supine in bed upon arrival and agreeable to tx Precautions: Hearing/Visual Limitations: glasses LE Weight Bearing Status: Weight Bearing as Tolerated Medical Precautions: Fall precautions Post-Surgical Precautions: Left total knee precautions Precautions Comment: Pt unable to recall TKR precautions, re-educated with good carryover throughout session Pain: Pain Assessment Pain Assessment: 0-10 Pain Score: 0 - No pain Pain Type: Acute pain, Surgical pain Pain Location: Knee Pain Orientation: Left Objective Cognition: Cognition Overall Cognitive Status: Within Functional Limits Activities of Daily Living: Grooming Grooming Level of Assistance: Setup Grooming Where Assessed: Standing sinkside Grooming Comments: Donning deodorant, face + hand washing and oral hygiene tasks UE Dressing UE Dressing Level of Assistance: Minimum assistance UE Dressing Comments: don/doff gown LE Dressing LE Dressing Adaptive Equipment: Utility Operator, Sock aide Sock Level of Assistance: Setup, Close supervision LE Dressing Where Assessed: Toilet LE Dressing Comments: don/doff socks with use of AE following education with good carryover of use Toileting Toileting Level of Assistance: Close supervision Where Assessed: Toilet Toileting Comments: completing pericare hygiene independently Functional Standing Tolerance: Time: ~15 min Functional Standing Tolerance Comments: tolerated standing during ADL tasks in restroom Bed Mobility/Transfers: Bed Mobility Bed Mobility: Yes Bed Mobility 1 Bed Mobility 1: Supine to sitting Level of Assistance 1: Minimum assistance, Minimal verbal cues Bed Mobility Comments 1: assist with LLE advancement off EOB with cues to scoot hips to EOB Transfers Transfer: Yes Transfer 1 Technique 1: Sit to stand, Stand to sit Transfer Device 1: Walker Transfer Level of Assistance 1: Minimum assistance, Minimal verbal cues Trials/Comments 1: assist for trunk elevation off EOB with cues for proper hand placement and eccentric lowering to chair Transfers 2 Technique 2: Sit to stand, Stand to sit Transfer Level of Assistance 2: Close supervision, Minimal verbal cues Trials/Comments 2: cues for use of grab bar and for eccentric lowering to shower bench Toilet Transfers Toilet Transfer Type: To and from Toilet Transfer to: Standard toilet Toilet Transfers: Supervision, Verbal cues Toilet Transfers Comments: cues for use of grab bar for UE support and for eccentric lowering to toilet Tub Transfers Tub Transfer Type: To and from Tub Transfer to: Standing Tub Transfers: Minimal assistance Tub Transfers Comments: assist for balance with cues for BLE sequencing and carryover of TKR precautions. SImulated shower bench performed with pt expressing understanding Functional Mobility: Functional Mobility Functional Mobility Performed: Yes Functional Mobility 1 Device 1: Rolling walker Assistance 1: Contact guard Comments 1: functional mobility short household distance x2 at W with CGA with cues for carryoverof TKR, demonstrating fair balance throughout task Standing Balance: Dynamic Standing Balance Dynamic Standing-Balance: Forward lean, Reaching for objects, Reaching across midline Dynamic Standing-Comments: fair balance during grooming tasks sinkside Outcome Measures:[facility] Daily Activity Putting on and taking off regular lower body clothing: A little Bathing (including washing, rinsing, drying): A little Putting on and taking off regular upper body clothing: A little Toileting, which includes using toilet, bedpan or urinal: A little Taking care of personal grooming such as brushing teeth: A little Eating Meals: None Daily Activity - Total Score: 19 Education Documentation Body Mechanics, taught by REHANA Snider at 04/04/2024 10:48 AM. Learner: Patient Readiness: Acceptance Method: Explanation Response: Verbalizes Understanding, Demonstrated Understanding Precautions, taught by REHANA Snider at 04/04/2024 10:48 AM. Learner: Patient Readiness: Acceptance Method: Explanation Response: Verbalizes Understanding, Demonstrated Understanding ADL Training, taught by REHANA Snider at 04/04/2024 10:48 AM. Learner: Patient Readiness: Acceptance Method: Explanation Response: Verbalizes Understanding, Demonstrated Understanding Education Comments No comments found. Problem: ADLs Goal: Pt will complete ADL tasks at mod I with use of AE prn Outcome: Progressing Problem: Instrumental Activities of Daily Living Goal: Pt will perform simple IADLs/retrieval of items at mod I. Outcome: Progressing Problem: Functional Mobility Goal: Pt will perform functional mobility household distances at mod I with use of RW. Outcome: Progressing Problem: OT Transfers Goal: Pt will perform functional transfers at mod I. Outcome: Progressing Problem: Pt will independently maintain TKA precautions while completing ADL/IADL tasks and functional transfers/mobility. Goal: Goal 3 Outcome: Progressing * Elizabeth Song PT - 04/04/2024 9:15 AM EDT Physical Therapy Physical Therapy Treatment Patient Name: Leeann Alonso Today's Date: 04/04/2024 Time Calculation Start Time: 914 Stop Time: 939 Time Calculation (min): 25 min Assessment/Plan PT Assessment PT Assessment Results: Decreased strength, Decreased range of motion, Decreased endurance, Impairedbalance, Decreased mobility, Decreased coordination, Impaired judgement, Decreased safety awareness, Impaired vision, Impaired sensation, Decreased skin integrity, Orthopedic restrictions, Pain Rehab Prognosis: Excellent Evaluation/Treatment Tolerance: Patient tolerated treatment well Medical Staff Made Aware: Yes Strengths: Ability to acquire knowledge Barriers to Participation: Comorbidities End of Session Communication: Bedside nurse Assessment Comment: The patient is progressing well towards functional goals during hospital stay. Pt requires close supervision to CGA for mobility and ambulation with RW. The patient would continueto benefit from skilled therapy services to address functional deficits. End of Session Patient Position: Bed, 3 rail up, Alarm off, not on at start of session PT Plan Inpatient/Swing Bed or Outpatient: Inpatient PT Plan Treatment/Interventions: Transfer training, Bed mobility, Gait training, Stair training, Balance training, Neuromuscular re-education, Strengthening, Endurance training, Range of motion, Therapeutic exercise, Therapeutic activity, Home exercise program PT Plan: Skilled PT PT Frequency: BID PT Discharge Recommendations: Low intensity level of continued care Equipment Recommended upon Discharge: Wheeled walker PT Recommended Transfer Status: Assist x1 PT - OK to Discharge: Yes General Visit Information: PT Visit PT Received On: 04/04/24 Response to Previous Treatment: Patient with no complaints from previous session. General Reason for Referral: mobility impairment s/p elective Lt TKR Referred By: Tin West MD Past Medical History Relevant to Rehab: anx, afib, HLD, HTN, panic disorder Family/Caregiver Present: Yes Caregiver Feedback: spouse present Co-Treatment: OT Co-Treatment Reason: initial post-op eval; optimize pt outcomes Prior to Session Communication: Bedside nurse Patient Position Received: Up in chair, Alarm off, not on at start of session Preferred Learning Style: verbal, visual General Comment: Cleared by nursing. Pt pleasant and agreeable to therapy Subjective Precautions: Precautions Hearing/Visual Limitations: glasses LE Weight Bearing Status: Weight Bearing as Tolerated Medical Precautions: Fall precautions Post-Surgical Precautions: Left total knee precautions Precautions Comment: Educated pt on TKR precautions, handout provided Objective Pain: Pain Assessment Pain Assessment: 0-10 Pain Score: 5 - Moderate pain Pain Type: Surgical pain Pain Location: Knee Pain Orientation: Left Pain Interventions: Repositioned, Ambulation/increased activity, Cold pack Cognition: Cognition Overall Cognitive Status: Within Functional Limits Orientation Level: Oriented X4 Coordination: Coordination Comment: incresed time for mobility completion Postural Control: Postural Control Posture Comment: mild forward head posture Static Sitting Balance Static Sitting-Balance Support: Feet supported, Bilateral upper extremity supported Static Sitting-Level of Assistance: Close supervision Static Sitting-Comment/Number of Minutes: EOB for > 5 min Static Standing Balance Static Standing-Balance Support: Bilateral upper extremity supported (RW) Static Standing-Level of Assistance: Close supervision Static Standing-Comment/Number of Minutes: Narrow FATOU Dynamic Standing Balance Dynamic Standing-Balance Support: Bilateral upper extremity supported (RW) Dynamic Standing-Comments: Close supervision for ambulation with RW; narrow FATOU Extremity/Trunk Assessments: RLE RLE : Within Functional Limits LLE LLE : (ankle WFL; knee flex/ext: 3/5; knee AROM: 5-90 deg; hip flex/ext: WFL) Activity Tolerance: Activity Tolerance Endurance: Tolerates 10 - 20 min exercise with multiple rests Activity Tolerance Comments: pt reports dizziness with activity Rate of Perceived Exertion (RPE): 5/10 Treatments: Therapeutic Exercise Therapeutic Exercise Performed: Yes Therapeutic Exercise Activity 1: AP x 15 reps alin Therapeutic Exercise Activity 2: QS x 5 reps alin Therapeutic Exercise Activity 3: Heel slides x 5 reps alin Therapeutic Exercise Activity 4: LAQ x 8 reps LLE Therapeutic Activity Therapeutic Activity Performed: Yes Therapeutic Activity 1: Education provided on hip precautions with VCs provided throughout mobility. Bed Mobility Bed Mobility: Yes Bed Mobility 1 Bed Mobility 1: Sitting to supine Level of Assistance 1: Minimum assistance Bed Mobility Comments 1: [place] for LLE into supine Ambulation/Gait Training Ambulation/Gait Training Performed: Yes Ambulation/Gait Training 1 Surface 1: Level tile Device 1: Rolling walker Assistance 1: Contact guard Quality of Gait 1: Antalgic, Shuffling gait Comments/Distance (ft) 1: 45ftx2 with RW and CGA; decreased skyler with VCs for increasing Lt heelstrike and knee flexion during swing phase. Transfers Transfer: Yes Transfer 1 Transfer From 1: Chair with arms to, Stand to Transfer to 1: Stand, Bed Technique 1: Sit to stand, Stand to sit Transfer Device 1: Walker Transfer Level of Assistance 1: Contact guard Trials/Comments 1: VCs for safe sequencing Outcome Measures: [facility] Basic Mobility Turning from your back to your side while in a flat bed without using bedrails: None Moving from lying on your back to sitting on the side of a flat bed without using bedrails: None Moving to and from bed to chair (including a wheelchair): A little Standing up from a chair using your arms (e.g. wheelchair or bedside chair): A little To walk in hospital room: A little Climbing 3-5 steps with railing: A lot Basic Mobility - Total Score: 19 Education Documentation Precautions, taught by Elizabeth Song PT at 04/04/2024 10:32 AM. Learner: Patient Readiness: Acceptance Method: Explanation Response: Verbalizes Understanding Comment: Educated pt on TKR precautions; intermittent VCs provided throughout mobility Mobility Training, taught by Elizabeth Song PT at 04/04/2024 10:32 AM. Learner: Patient Readiness: Acceptance Method: Explanation Response: Verbalizes Understanding Comment: Educated pt on TKR precautions; intermittent VCs provided throughout mobility Education Comments No comments found. Encounter Problems Encounter Problems (Active) PT Problem Strength (Progressing) Start: 04/03/24 Expected End: 04/17/24 The patient will demonstrate an overall strength of 4/5 in BLE to assist with completion of functional mobility. Knee Precautions (Progressing) Start: 04/03/24 Expected End: 04/17/24 The patient will be able to recall 3/3 knee precautions with minimal VC. Functional Mobility (Progressing) Start: 04/03/24 Expected End: 04/17/24 The patient will complete functional mobility (bed mobility, transfers, etc.) at a mod indep level with LRAD by DC. Ambulation (Progressing) Start: 04/03/24 Expected End: 04/17/24 The patient will be able to ambulate at a mod indep level for >75ftx1 with RW and steady gait. Stairs (Progressing) Start: 04/03/24 Expected End: 04/17/24 The patient will be able to ascend/descend 2 steps without the use of rails at a mod indep level byDC. Lt Knee AROM (Progressing) Start: 04/03/24 Expected End: 04/17/24 The patient will be able to demonstrate AROM of Lt knee of 0-90 deg to assist with completion of functional mobility. * RADHA Quan - 04/04/2024 8:45 AM EDT [facility] sent referral information to pts choice [facility] via [facility] on 04/03, have not received any response. [facility] faxed information to them at [phone] this morning, contact information included on facesheet with request for response. Update: [facility] confirmed they can accept the pt. Hospitalist DRAWER MAKER able to input corrected homecare order, this along with other dc information was sent to [facility]. 04/04/24 0845 Discharge Planning Patient expects to be discharged to: Home with [facility] * Shanelle Tijerina, OT - 04/03/2024 2:52 PM EDT Occupational Therapy Evaluation Patient Name: Leeann Alonso : 1960 Today's Date: 04/03/24 Time Calculation Start Time: 1316 Stop Time: 1336 Time Calculation (min): 20 min Assessment: OT Assessment: Pt would benefit from acute OT services to address deficits in ADLs/IADLs, functional mobility, and transfers End of Session Communication: Bedside nurse End of Session Patient Position: Bed, 3 rail up, Alarm on (all needs in reach) OT Assessment Results: Decreased ADL status, Decreased endurance, Decreased IADLs, Decreased functional mobility Strengths: Ability to acquire knowledge, Living arrangement secure, Premorbid level of function, Support of extended family/friends, Support and attitude of living partners Plan: Treatment Interventions: ADL retraining, Functional transfer training, UE strengthening/ROM, Equipment evaluation/education, Patient/family training OT Frequency: 5 times per week OT Discharge Recommendations: Low intensity level of continued care (recommend assist/supervision upon d/c) OT - OK to Discharge: Yes Treatment Interventions: ADL retraining, Functional transfer training, UE strengthening/ROM, Equipment evaluation/education, Patient/family training Subjective Current Problem: 1. Arthritis of left knee Walker rolling General: OT Received On: 04/03/24 General Reason for Referral: The patient is a 64 y.o. female admitted to the hospital s/p elective Lt TKR completed on 04/03/[address] West. Referred By: Tin West MD Past Medical History Relevant to Rehab: anx, afib, HLD, HTN, panic disorder Co-Treatment: PT Prior to Session Communication: Bedside nurse Patient Position Received: Bed, 3 rail up, Alarm off, not on at start of session General Comment: Cleared by nursing. Pt pleasant and agreeable to therapy Precautions: Hearing/Visual Limitations: glasses LE Weight Bearing Status: Weight Bearing as Tolerated Medical Precautions: Fall precautions, Oxygen therapy device and L/min (3L O2) Post-Surgical Precautions: Left total knee precautions Precautions Comment: Educated pt on TKR precautions, handout provided Pain: Pain Assessment Pain Assessment: 0-10 Pain Score: 0 - No pain Objective Cognition: Overall Cognitive Status: Within Functional Limits Home Living: Type of Home: House Lives With: Spouse Home Adaptive Equipment: Walker rolling or standard, Cane Home Layout: One level Home Access: Stairs to enter without rails Entrance Stairs-Rails: None Entrance Stairs-Number of Steps: 2 Bathroom Shower/Tub: Tub/shower unit Bathroom Toilet: Adaptive toilet seating Bathroom Equipment: None Home Living Comments: Patient has a basement that she does not use Prior Function: Level of [place]: Independent with ADLs and functional transfers, Independent with homemaking with ambulation Receives Help From: Family ADL Assistance: Independent Homemaking Assistance: Independent (shares IADLs with spouse) Ambulatory Assistance: Independent 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) Leisure: has grandchild at home; small dog Prior Function Comments: pt denies h/o recent falls ADL: Eating Assistance: Independent Grooming Assistance: Stand by Bathing Assistance: Moderate UE Dressing Assistance: Stand by LE Dressing Assistance: Moderate Toileting Assistance with Device: Minimal Activities of Daily Living: LE Dressing LE Dressing: Yes Sock Level of Assistance: Moderate assistance LE Dressing Where Assessed: Bed level LE Dressing Comments: donning left sock Activity Tolerance: Endurance: Decreased tolerance for upright activites Bed Mobility/Transfers: Bed Mobility Bed Mobility: (mod A for trunk and assist with LLE supine<>seated EOB) Transfers Transfer: (min A for balance and controlled descent sit<>stand bed level, VCs for safe hand and leg placement) Functional Mobility: Functional Mobility Functional Mobility Performed: (min A for functional mobility ~2-3 side steps with RW) Sitting Balance: Static Sitting Balance Static Sitting-Level of Assistance: Contact guard Vision:Vision - Basic Assessment Current Vision: Wears glasses all the time Sensation: Sensation Comment: pt denied numbness/paresthesia BUEs Strength: Strength Comments: WFL Hand Function: Hand Function Gross Grasp: Functional Coordination: Functional Extremities: RUE RUE : Within Functional Limits and LUE LUE: Within Functional Limits Outcome Measures: [facility] Daily Activity Putting on and taking off regular lower body clothing: A lot Bathing (including washing, rinsing, drying): A lot Putting on and taking off regular upper body clothing: A little Toileting, which includes using toilet, bedpan or urinal: A little Taking care of personal grooming such as brushing teeth: A little Eating Meals: None Daily Activity - Total Score: 17 Education Documentation Body Mechanics, taught by Shanelle Tijerina OT at 04/03/2024 2:50 PM. Learner: Patient Readiness: Acceptance Method: Explanation, Demonstration Response: Verbalizes Understanding, Needs Reinforcement Precautions, taught by Shanelle Tijerina OT at 04/03/2024 2:50 PM. Learner: Patient Readiness: Acceptance Method: Explanation, Demonstration Response: Verbalizes Understanding, Needs Reinforcement ADL Training, taught by Shanelle Tijerina OT at 04/03/2024 2:50 PM. Learner: Patient Readiness: Acceptance Method: Explanation, Demonstration Response: Verbalizes Understanding, Needs Reinforcement Education Comments No comments found. Goals: Encounter Problems Encounter Problems (Active) ADLs Pt will complete ADL tasks at mod I with use of AE prn (Progressing) Start: 04/03/24 Expected End: 05/01/24 Functional Mobility Pt will perform functional mobility household distances at mod I with use of RW. (Progressing) Start: 04/03/24 Expected End: 05/01/24 Instrumental Activities of Daily Living Pt will perform simple IADLs/retrieval of items at mod I. (Progressing) Start: 04/03/24 Expected End: 05/01/24 OT Transfers Pt will perform functional transfers at mod I. (Progressing) Start: 04/03/24 Expected End: 05/01/24 Pt will independently maintain TKA precautions while completing ADL/IADL tasks and functional transfers/mobility. Goal 3 (Progressing) Start: 04/03/24 Expected End: 05/01/24 * RADHA Quan - 04/03/2024 2:05 PM EDT Pt underwent left knee arthroplasty on this day with Dr West. [facility] [facility] received message from hospitalist ENGINE BUILDER with information on which [place]care [place]. [facility] called pts room and spoke with her over the phone. Pt lives with her spouse and granddaughter in a ranch home, 2 steps to enter. Pt is normally independent for mobility, drives, wears glasses, no hearing aids needed. Pt denies concerns for housing, finances or food. Pt states she has hx of anxiety however it is under control.Pts PCP is Dr Johnson, prescriptions filled through [facility] [address], [facility]. Pt confirmed she would like [facility], referral sent via careport, await response. 04/03/24 1401 Discharge Planning Living Arrangements Spouse/significant other;Family members Support Systems Spouse/significant other;Family members Type of Residence Private residence Number of Stairs to Enter Residence 2 Number of Stairs Within Residence 0 Who is requesting discharge planning? Provider Home or Post Acute Services In home services Type of Home Care Services Home PT Patient expects to be discharged to: Home with [facility] Financial Resource Strain How hard is it for you to pay for the very basics like food, housing, medical care, and heating? Not hard Housing Stability In the last 12 months, was there a time when you were not able to pay the mortgage or rent on time?N In the last 12 months, how many places have you lived? 1 In the last 12 months, was there a time when you did not have a steady place to sleep or slept in ashelter (including now)? N Transportation Needs In the past 12 months, has lack of transportation kept you from medical appointments or from getting medications? no In the past 12 months, has lack of transportation kept you from meetings, work, or from getting things needed for daily living? No * Elizabeth Song, PT - 04/03/2024 1:15 PM EDT Physical Therapy Physical Therapy Evaluation & Treatment Patient Name: Celeste Crockett Today's Date: 04/03/2024 Time Calculation Start Time: 1315 Stop Time: 1350 Time Calculation (min): 35 min Assessment/Plan PT Assessment PT Assessment Results: Decreased strength, Decreased range of motion, Decreased endurance, Impairedbalance, Decreased mobility, Decreased coordination, Impaired judgement, Decreased safety awareness, Impaired vision, Impaired sensation, Decreased skin integrity, Orthopedic restrictions, Pain Rehab Prognosis: Excellent Evaluation/Treatment Tolerance: Patient tolerated treatment well Medical Staff Made Aware: Yes Strengths: Ability to acquire knowledge Barriers to Participation: Comorbidities End of Session Communication: Bedside nurse Assessment Comment: The patient is a 64 y.o. female admitted to the hospital s/p elective Lt TKR completed on 04/03/[address] West. The patient currently requires min to modA for transfers and bedsideambulation with RW. The patient has experienced a functional decline and would continue to benefit from skilled therapy services to address functional deficits. End of Session Patient Position: Bed, 3 rail up, Alarm on IP OR SWING BED PT PLAN Inpatient or Swing Bed: Inpatient PT Plan Treatment/Interventions: Transfer training, Bed mobility, Gait training, Stair training, Balance training, Neuromuscular re-education, Strengthening, Endurance training, Range of motion, Therapeutic exercise, Therapeutic activity, Home exercise program PT Plan: Skilled PT PT Frequency: BID PT Discharge Recommendations: Low intensity level of continued care Equipment Recommended upon Discharge: Wheeled walker PT Recommended Transfer Status: Assist x1 PT - OK to Discharge: Yes Subjective General Visit Information: General Reason for Referral: mobility impairment s/p elective Lt TKR Referred By: Tin West MD Past Medical History Relevant to Rehab: anx, afib, HLD, HTN, panic disorder Co-Treatment: OT Co-Treatment Reason: initial post-op eval; optimize pt outcomes Prior to Session Communication: Bedside nurse Patient Position Received: Bed, 3 rail up, Alarm off, not on at start of session Preferred Learning Style: verbal, visual General Comment: The patient is a 64 y.o. female admitted to the hospital s/p elective Lt TKR completed on 04/03/[address] West. Home Living: Home Living Type of Home: House Lives With: Spouse Home Adaptive Equipment: Walker rolling or standard, Cane Home Layout: One level Home Access: Stairs to enter without rails Entrance Stairs-Rails: None Entrance Stairs-Number of Steps: 2 Bathroom Shower/Tub: Tub/shower unit Bathroom Toilet: Adaptive toilet seating Bathroom Equipment: None Home Living Comments: Patient has a basement that she does not use Prior Level of Function: Prior Function Per Pt/Caregiver Report Level of Forrest: Independent with ADLs and functional transfers, Independent with homemaking with ambulation Receives Help From: Family ADL Assistance: Independent Homemaking Assistance: Independent (shares IADLs with spouse) Ambulatory Assistance: Independent 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) Leisure: has grandchild at home; small dog Prior Function Comments: pt denies h/o recent falls Precautions: Precautions Hearing/Visual Limitations: glasses LE Weight Bearing Status: Weight Bearing as Tolerated Medical Precautions: Fall precautions, Oxygen therapy device and L/min (3L O2) Post-Surgical Precautions: Left total knee precautions Precautions Comment: Educated pt on TKR precautions; intermittent VCs provided throughout mobility Objective Pain: Pain Assessment Pain Assessment: 0-10 Pain Score: 0 - No pain Pain Interventions: Repositioned, Cold pack Cognition: Cognition Overall Cognitive Status: Within Functional Limits Orientation Level: Oriented X4 General Assessments: General Observation General Observation: pleasant; +IV, LUNA drain Activity Tolerance Endurance: Tolerates less than 10 min exercise, no significant change in vital signs Activity Tolerance Comments: pt reports dizziness with activity Rate of Perceived Exertion (RPE): 5/10 Sensation Sensation Comment: pt reports tingling in Lt toes Strength Strength Comments: RLE WFL; LLE grossly 3-3+/5 Coordination Coordination Comment: incresed time for mobility completion Postural Control Posture Comment: mild forward head posture Static Sitting Balance Static Sitting-Balance Support: Feet supported, Bilateral upper extremity supported Static Sitting-Level of Assistance: Close supervision Static Sitting-Comment/Number of Minutes: EOB for > 5 min Static Standing Balance Static Standing-Balance Support: Bilateral upper extremity supported (RW) Static Standing-Level of Assistance: Minimum assistance Static Standing-Comment/Number of Minutes: Narrow FATOU with forward flexed posture Dynamic Standing Balance Dynamic Standing-Balance Support: Bilateral upper extremity supported (RW) Dynamic Standing-Comments: Prosper with RW for lateral steps at bedside; VCs for safe sequencing Functional Assessments: Bed Mobility Bed Mobility: Yes Bed Mobility 1 Bed Mobility 1: Supine to sitting, Sitting to supine Level of Assistance 1: Moderate assistance Bed Mobility Comments 1: Assist for trunk up/down and moving BLE in/out of bed with use of bed rails and HOB to 20 deg Transfers Transfer: Yes Transfer 1 Transfer From 1: Bed to, Stand to Transfer to 1: Stand, Bed Technique 1: Sit to stand, Stand to sit Transfer Device 1: Walker Transfer Level of Assistance 1: Minimum assistance Trials/Comments 1: VCs for safe sequencing; Prosper for completion of transfers Ambulation/Gait Training Ambulation/Gait Training Performed: Yes Ambulation/Gait Training 1 Surface 1: Level tile Device 1: Rolling walker Assistance 1: Minimum assistance Quality of Gait 1: Antalgic, Shuffling gait Comments/Distance (ft) 1: 5ftx1 at bedside with VCs for safe sequencing of gait and for use of RW Extremity/Trunk Assessments: RLE RLE : Within Functional Limits LLE LLE : (ankle WFL; knee flex/ext: 3/5; knee AROM: 10-80 deg; hip flex/ext: WFL) Treatments: Therapeutic Exercise Therapeutic Exercise Performed: Yes (completed in supine) Therapeutic Exercise Activity 1: AP x 15 reps alin Therapeutic Exercise Activity 2: QS x 5 reps alin Therapeutic Exercise Activity 3: Heel slides x 5 reps alin Bed Mobility Bed Mobility: Yes Bed Mobility 1 Bed Mobility 1: Supine to sitting, Sitting to supine Level of Assistance 1: Moderate assistance Bed Mobility Comments 1: Assist for trunk up/down and moving BLE in/out of bed with use of bed rails and HOB to 20 deg Ambulation/Gait Training Ambulation/Gait Training Performed: Yes Ambulation/Gait Training 1 Surface 1: Level tile Device 1: Rolling walker Assistance 1: Minimum assistance Quality of Gait 1: Antalgic, Shuffling gait Comments/Distance (ft) 1: 5ftx1 at bedside with VCs for safe sequencing of gait and for use of RW Transfers Transfer: Yes Transfer 1 Transfer From 1: Bed to, Stand to Transfer to 1: Stand, Bed Technique 1: Sit to stand, Stand to sit Transfer Device 1: Walker Transfer Level of Assistance 1: Minimum assistance Trials/Comments 1: VCs for safe sequencing; Prosper for completion of transfers Outcome Measures: [facility] Basic Mobility Turning from your back to your side while in a flat bed without using bedrails: A little Moving from lying on your back to sitting on the side of a flat bed without using bedrails: A lot Moving to and from bed to chair (including a wheelchair): A little Standing up from a chair using your arms (e.g. wheelchair or bedside chair): A little To walk in hospital room: A little Climbing 3-5 steps with railing: Total Basic Mobility - Total Score: 15 Encounter Problems Encounter Problems (Active) PT Problem Strength (Progressing) Start: 04/03/24 Expected End: 04/17/24 The patient will demonstrate an overall strength of 4/5 in BLE to assist with completion of functional mobility. Knee Precautions (Progressing) Start: 04/03/24 Expected End: 04/17/24 The patient will be able to recall 3/3 knee precautions with minimal VC. Functional Mobility (Progressing) Start: 04/03/24 Expected End: 04/17/24 The patient will complete functional mobility (bed mobility, transfers, etc.) at a mod indep level with LRAD by DC. Ambulation (Progressing) Start: 04/03/24 Expected End: 04/17/24 The patient will be able to ambulate at a mod indep level for >75ftx1 with RW and steady gait. Stairs (Progressing) Start: 04/03/24 Expected End: 04/17/24 The patient will be able to ascend/descend 2 steps without the use of rails at a mod indep level byDC. Lt Knee AROM (Progressing) Start: 04/03/24 Expected End: 04/17/24 The patient will be able to demonstrate AROM of Lt knee of 0-90 deg to assist with completion of functional mobility. Education Documentation Precautions, taught by Elizabeth Song PT at 04/03/2024 2:12 PM. Learner: Patient Readiness: Acceptance Method: Explanation Response: Verbalizes Understanding Comment: Educated pt on TKR precautions; intermittent VCs provided throughout mobility Mobility Training, taught by Elizabeth Song PT at 04/03/2024 2:12 PM. Learner: Patient Readiness: Acceptance Method: Explanation Response: Verbalizes Understanding Comment: Educated pt on TKR precautions; intermittent VCs provided throughout mobility Education Comments No comments found. documented in this [facility] Work Phone: 1(524) 193-953506-11-2024 Hospital course Narrative* Tin West MD - 04/04/2024 11:58 AM EDT Discharge Diagnosis Arthritis of left knee Issues Requiring Follow-Up Left total knee Test Results Pending At Discharge Pending Labs Order Current Status Extra Urine Way Tube In process Urinalysis with Reflex Culture and Microscopic In process Urine Culture In process Hospital Course Patient brought to the operating room day of admission for left total knee replacement. Uncomplicated surgery admitted to regular nursing floor. Plan for home with home health care. Pertinent Physical Exam At Time of Discharge Physical Exam Home Medications Medication List START taking these medications acetaminophen 500 mg tablet; Commonly known as: Tylenol; Take 2 tablets (1,000 mg) by mouth every 6 hours if needed for mild pain (1 - 3) for up to 15 days. docusate sodium 100 mg capsule; Commonly known as: Colace; Take 1 capsule (100 mg) by mouth 2 times a day for 15 days. ibuprofen 600 mg tablet; Take 1 tablet (600 mg) by mouth every 6 hours if needed for mild pain (1 - 3) for up to 5 days. CHANGE how you take these medications * Eliquis 5 mg tablet; Generic drug: apixaban; What changed: Another medication with the same name was added. Make sure you understand how and when to take each. * apixaban 2.5 mg tablet; Commonly known as: Eliquis; Take 1 tablet (2.5 mg) by mouth 2 times a day.; What changed: You were already taking a medication with the same name, and this prescription was added. Make sure you understand how and when to take each. * This list has 2 medication(s) that are the same as other medications prescribed for you. Read the directions carefully, and ask your doctor or other care provider to review them with you. CONTINUE taking these medications dilTIAZem CD 240 mg 24 hr capsule; Commonly known as: Cardizem CD ezetimibe 10 mg tablet; Commonly known as: Zetia flecainide 100 mg tablet; Commonly known as: Tambocor gemfibrozil 600 mg tablet; Commonly known as: Lopid losartan-hydrochlorothiazide 50-12.5 mg tablet; Commonly known as: Hyzaar STOP taking these medications chlorhexidine 0.12 % solution; Commonly known as: Peridex Outpatient Follow-Up No future appointments. Tin West MD documented in this [facility] Work Phone: [phone]) 129-900306-11-2024 Nurse Note* Pao Foley RN - 04/04/2024 7:19 AM EDT Assumed care of patient. Patient is resting in bed, and talking on her phone. She was made aware that therapy would be in to work with her this morning. She will be up to a chair. Call light is in place will continue to monitor. [facility]06-11-2024 Nurse Note* Pao Foley RN - 04/04/2024 7:19 AM EDT Assumed care of patient. Patient is resting in bed, and talking on her phone. She was made aware that therapy would be in to work with her this morning. She will be up to a chair. Call light is in place will continue to monitor. * Alyssa Graham RN - 04/03/2024 7:30 PM EDT Assumed care of pt this evening, sitting up in bed, at bedside, denies pain, dressing to left knee c/d/I, hemovac with small amt bloody drainage noted, iv fluids per order documented in this [facility] Work Phone: 1(923) 838-758106-11-2024 Plan of care note* Care Plan - Alyssa Graham RN - 04/04/2024 3:03 AM EDT The patient's goals for the shift include No pain The clinical goals for the shift include pain management Over the shift, the patient did make progress toward the following goals. Problem: Pain Goal: My pain/discomfort is manageable Outcome: Progressing Problem: Safety Goal: Patient will be injury free during hospitalization Outcome: Progressing Problem: Safety Goal: I will remain free of falls Outcome: Progressing Problem: Daily Care Goal: Daily care needs are met Outcome: Progressing Problem: Psychosocial Needs Goal: Demonstrates ability to cope with hospitalization/illness Outcome: Progressing [facility] Work Phone: [phone]) 263-816306-11-2024 Miscellaneous Notes* Care Plan - Alyssa Graham RN - 04/04/2024 3:03 AM EDT The patient's goals for the shift include No pain The clinical goals for the shift include pain management Over the shift, the patient did make progress toward the following goals. Problem: Pain Goal: My pain/discomfort is manageable Outcome: Progressing Problem: Safety Goal: Patient will be injury free during hospitalization Outcome: Progressing Problem: Safety Goal: I will remain free of falls Outcome: Progressing Problem: Daily Care Goal: Daily care needs are met Outcome: Progressing Problem: Psychosocial Needs Goal: Demonstrates ability to cope with hospitalization/illness Outcome: Progressing * Treatment Plan - Chante Ma MD - 04/03/2024 3:33 PM EDT Patient was seen and examined by me personally. He is see detailed initial consult and physical exam in [facility] by Larisa Stevenson. I talked in detail with DRAWER MAKER regarding assessment and plan. I agree with assessment and plan. Patient had history of left knee osteoarthritis and feeling weaker on the left lower extremity for long time. General: In moderate distress, cooperating during physical exam. HEENT: Pupils are equal and reactive to light and commendation , oral mucosa dry, no JVD Cardiovascular: Normal sinus rhythm, no MRG. Lungs: Clear to auscultation bilaterally, no wheezing, no crackles, no dullness to percussion. Abdomen: No hepatosplenomegaly appreciated, soft , not tender, positive bowel sounds, positive bowel movement. Neuro: Alert and oriented x 3 , sensation intact. Psych: Patient had great insight was going on Musculoskeletal: Left knee dressing in place Vascular: Pulses are intact in upper and lower extremities Skin: No petechiae, ecchymosis or other stigmata for dermatology disease. Atrial fibrillation Patient see regular certified ophthalmic medical technician. Continue with flecainide, Cardizem ,Eliquis. Left knee osteoarthritis Status post left total knee arthroplasty Continue with pain medication Physical therapy to evaluate her Hypertension Fairly controlled Patient is on Cardizem Hyperlipidemia Patient lives in [place]. Discussed with care coordination on the case plan to discharge with home health care. Discussed with her family present in the room. * Care Plan - Joanne Shetty RN - 04/03/2024 2:04 PM EDT The patient's goals for the shift include No pain The clinical goals for the shift include No pain Over the shift, the patient did not make progress toward the following goals. * Perioperative Nursing Note - Odilia Desai RN - 04/03/2024 11:50 AM EDT Transport at bedside. Patient transferred to Division Status Stable. * Perioperative Nursing Note - Odilia Desai RN - 04/03/2024 10:00 AM EDT Patient received to Pacu Mclean #3 from OR. Anesthesia at bedside. Report received. Initial assessmentcomplete. VSS on Loan Coordinator. Patient resting appears comfortable. No signs or symptoms of painnoted. * Op Note - Tin West MD - 04/03/2024 8:24 AM EDT Arthroplasty Resurfacing Total Knee 22757 - FL ARTHRP KNE CONDYLE&PLATU MEDIAL&LAT COMPARTMENTS Operative Note Date: 04/03/2024 OR Location: [facility] OR Name: Leeann Alonso, : 1960, Age: 64 y.o., , Sex: female PRE Diagnosis Left knee osteoarthritis POST Diagnosis Same Procedures Left total knee arthroplasty subvastus approach Surgeons * Tin West - Primary Resident/Fellow/Other Drill Press Set Up Operator: nitza Snowden joe Procedure Summary Implants: Styker Cemented Triathlon Total Knee: Femur size 3 posterior stabilized, size 3 primary tibial baseplate, size A32 N2Vac Patella, size 3x11 posterior stabilized N2Vac tibial bearing insert Anesthesia: LMA with adductor canal block ASA: III Anesthesia Staff: Anesthesiologist: Israel Corea MD PROOF TESTER: ANNALEE Walsh Estimated Blood Loss: 50 mL Specimen: No specimens collected Staff: Match Up Person: Katy Rodgers RN Scrub Person: Tesfaye Wright; Cy Sorto; Nikki Gr Drains and/or Catheters: 2 Hemovac Tourniquet Times: Total Tourniquet Time Documented: Thigh (Left) - 49 minutes Total: Thigh (Left) - 49 minutes Findings: Patient had severe degenerative changes with medial joint space [id number] apposition and peripheral osteophyte formation. Absent ACL. Stable implantation of the above components. Neutralalignment stable in extension to an axial loading exam. Patella tracked normally through a subvastus approach. Indications: Leeann Alonso is an 64 y.o. female who is having surgery for LEFT KNEE OSTEOARTHRITIS. Patient presented with pain and symptoms of her left knee. Pain not relieved with conservative care affecting daily activities. She had reached a point of disability. X-rays revealed severe degenerative change along the medial joint space. I discussed with her further options and she wishedto proceed with a knee replacement surgery. I discussed with the patient the risks, benefits, alternatives, complications of a total knee replacement. The risks, including but not limited to, deep vein thrombosis, pulmonary embolism, infection, knee stiffness, periprosthetic fracture, damage to ligaments tendons or neurovascular structures was discussed. Despite these risks they elected to proceed. Procedure Details: Medications: Antibiotics: Ancef 2 g IV, tranexamic acid 2 g IV, Decadron 10 milligrams IV Patient was seen and evaluated in the preoperative area and the left leg was marked as the operative extremity. They were then brought back to the operating room after anesthesia administered an adductor canal block. Patient was laid supine on the table and anesthesia team controlled the head neck and airway administered general anesthetic. Rondon catheter was inserted. The well leg was wrapped and secured to the table. The operative leg was prepped with a well- padded thigh tourniquet. We then washed the skin with a chlorhexidine wash and alcohol. We then prepped with a ChloraPrep and draped in the usual fashion. An operative time-out was performed. I then exsanguinated the leg with an Esmarch and elevated the tourniquet to 250 millimeters of mercury. I marked out the anterior landmarks of the knee and a midline incision. I created the incision withthe scalpel and used the Bovie to dissect down through the subcutaneous tissue to the level of the extensor mechanism. I created full- thickness skin flaps medial and laterally. Identified the VMO andplaced a Hohmann retractor deep to this to retract the extensor mechanism laterally. Marked out thesubvastus approach. I created this with the scalpel. I then used the Bovie to dissect a subperiosteal dissection off the proximal medial tibia. I removed the infrapatellar fat pad. I released the lateral synovium and was able to flex the knee and translate the patella laterally. Patient had severe wear of the medial compartment. I marked out Whitesides line and debrided the anterior cruciate ligament. I debrided the intercondylar notch and used a drill to enter the femoral canal. I then used a flexible intramedullary alignment guide with distal cutting jig set for 5 degree valgus on the left side with an 8 millimeter resection. I set this on the more prominent medial condyle. I pinned this into position and protected the soft tissues while I resected the distal femur. My cut measured at 8millimeters. Now turned my attention to the tibia. I used a extramedullary guide centered in the tibial spines. I aligned it with respect to the medial 3rd of the tubercle, to tibial crest, and centered over talus. I adjusted for a neutral slope. I pinned the block in position with a 4 millimeter resection off the medial side. I then used a drop ly as a secondary check. I then protected the soft tissues and resected the proximal tibia. I measured the lateral thickness at 10 millimeters. I now brought the knee into extension and used the gap balancing block. I was satisfied with the alignment and the extension gap. Now returned to the femur using the 3 degree external rotation sizing guide and pinned this into position with respect to Whitesides line, epicondylar axis and a tibial cut. I measured the femur at a size 3-4. I initially placed the size 4 4 in 1 cutting block and pinned this down. I thenresected the anterior and posterior condyles and chamfers. I then cleaned the bone cuts with a rongeur and an osteotome. I now placed the cruciate retaining trial femoral component in position and aligned with the lateral femur. This appeared to be oversized medial to laterally. I felt that there is still room to downsized to a 3 femoral component. I removed the femoral trial and repositioned a size three 4-in-1 cutting guide. I resected the anterior and anterior chamfer bone cuts. The other cuts did not have resections. I then trialed the size 3 cruciate retaining femoral component along thelateral edge. This had a better fit. I drilled for the lug holes. I now placed the box cutting guide in line with the lateral border of the femur. I pinned this into position then used a distal chisel and oscillating saw to resect the box and removed the PCL with the Bovie. I now cleaned the posterior aspect of the knee with the Bovie removing the medial and lateral meniscus in their entirety. I preserved the popliteus tendon. I then took a curved osteotome and resected the posterior condylar osteophytes bilaterally decompressing the posterior space. I provisionally sized the tibia to a size 3. I did a trial reduction with the trial components and a 7 millimeter insert. I brought the knee through range of motion was satisfied with the tracking and varus valgus stability throughout. The northway patella tracked normally. I everted the patella with 2 towel clips. I circumferentially burned a round this with the Bovie. The patella measured 22 millimeters in thickness. I took a freehand resection down to 14 millimeters of bone circumferentially. I sized an asymmetric 32. I alligned the drill guide with the medial border and drilled for the Press-Fit component. I then placed a trial and tested the kinematics and the patella tracked normally through the sub vastus approach. I now removedthe trial components and finished my tibial preparation. I pinned the base plate into position and then used the keel punch. I now removed the base plate and used the 4 corner drill guide. I now removed this and thoroughly irrigated the soft tissue and bone in preparation for implantation. I flexedthe knee and translated the tibia forward. I impacted the tibial component 1st. I then reduced the knee. I now impacted the femoral component. I cleaned the locking mechanism and inserted the polyethylene component. I also irrigated clean and dried the patella seated the patellar component. I tested the knee through range of motion was satisfied with the tracking of the patella and knee kinematics. I extended the knee and irrigated with Betadine. I washed this out with normal saline. I then packed the knee and dropped the tourniquet. I obtained hemostasis. I then placed 1 intra-articular drain and closed the arthrotomy in a semi flexed position with #2 Ethibond for a watertight seal tested through range of motion. I then placed an extra-articular drain, irrigated and closed in a layered fashion of running 0 Vicryl, buried interrupted 2-0 Vicryl, running 4-0 Monocryl. Dermabond and a silver dressing were applied. The patient tolerated procedure well and was awakened taken to PACU in stable condition. No complications encountered. Complications: None; patient tolerated the procedure well. Disposition: PACU - hemodynamically stable. Condition: stable Attending Attestation: I performed the procedure. Tin West * Pre-Procedure Note - Cynthia Lopez RN - 04/03/2024 7:57 AM EDT PREOP NERVE BLOCK COMPLETED, PATIENT TOLERATED WELL. PHOTO TO CHART documented in this encounter[facility] Work Phone: [phone] 871-876206-10-2024 Nurse Note* Alyssa Graham RN - 04/03/2024 7:30 PM EDT Assumed care of pt this evening, sitting up in bed, at bedside, denies pain, dressing to left knee c/d/I, hemovac with small amt bloody drainage noted, iv fluids per order [facility]06-10-2024 Note* Treatment Plan - Chante Ma MD - 04/03/2024 3:33 PM EDT Patient was seen and examined by me personally. He is see detailed initial consult and physical exam in epic by Larisa Stevenson. I talked in detail with DRAWER MAKER regarding assessment and plan. I agree with assessment and plan. Patient had history of left knee osteoarthritis and feeling weaker on the left lower extremity for long time. General: In moderate distress, cooperating during physical exam. HEENT: Pupils are equal and reactive to light and commendation , oral mucosa dry, no JVD Cardiovascular: Normal sinus rhythm, no MRG. Lungs: Clear to auscultation bilaterally, no wheezing, no crackles, no dullness to percussion. Abdomen: No hepatosplenomegaly appreciated, soft , not tender, positive bowel sounds, positive bowel movement. Neuro: Alert and oriented x 3 , sensation intact. Psych: Patient had great insight was going on Musculoskeletal: Left knee dressing in place Vascular: Pulses are intact in upper and lower extremities Skin: No petechiae, ecchymosis or other stigmata for dermatology disease. Atrial fibrillation Patient see regular certified ophthalmic medical technician. Continue with flecainide, Cardizem ,Eliquis. Left knee osteoarthritis Status post left total knee arthroplasty Continue with pain medication Physical therapy to evaluate her Hypertension Fairly controlled Patient is on Cardizem Hyperlipidemia Patient lives in [place]. Discussed with care coordination on the case plan to discharge with home health care. Discussed with her family present in the room. [facility] Work Phone: [phone]) 830-326106-10-2024 Plan of care note* Care Plan - Joanne Shetty RN - 04/03/2024 2:04 PM EDT The patient's goals for the shift include No pain The clinical goals for the shift include No pain Over the shift, the patient did not make progress toward the following goals. [facility] Work Phone: [phone] 326-361906-10-2024 Consult note* Keshawn Stevenson APRN-ABHISHEK - 04/03/2024 1:51 PM EDTAssociated Order(s): Inpatient consult to Medicine Inpatient consult to Medicine Consult performed by: Keshawn Stevenson APRN-DRAWER MAKER Consult ordered by: Tin West MD Reason for consult: HTN, HLD, A fib Reason For Consult HTN, HLD, A fib History Of Present Illness Celeste Crockett is a 64 y.o. female with a past medical history of atrial fibrillation on apixaban, HLT, HTN, and aortic valve insufficiency who presented to [facility] for an anticipated left total knee replacement. Patient had been having left knee pain for years that became progressively worse. Reported difficulty standing and walking. She had been receiving injections however no longer effective. Recently fell due to instability. Patient underwent left total knee arthroplasty by Dr. West on 04/03/24. Does report pain behind her knee, mild nausea, and feeling lightheaded when she stood with therapy. Denies chest pain, shortness of breath, or vomiting. No abdominal discomfort. Admitted to [facility]. Medicine consulted for management of chronic medical conditions, HTN, A fib, HLD. Past Medical History She has a past medical history of Anxiety, Aortic valve insufficiency, Arthritis, Asthma ([facility]),Atrial fibrillation (Multi), Easy bruising, Heart disease (2018), Hyperlipidemia, Hypertension, Joint pain, Panic disorder, and Vision loss. Surgical History She has a past surgical history that includes Other surgical history (Left); Cardiac catheterization (2018); Other surgical history; Hysterectomy; Tonsillectomy; Breast biopsy (2016?); Breast lumpectomy; Colonoscopy (2018); and Upper gastrointestinal endoscopy (2018). Social History She reports that she quit smoking about 28 years ago. Her smoking use included cigarettes. She started smoking about 44 years ago. She has a 7.5 pack-year smoking history. She has never used smokeless tobacco. She reports current alcohol use. She reports that she does not use drugs. Family History Family History Problem Relation Name Age of Onset Arthritis Mother Brianda pulido Cancer Mother Briandamendy pulido Diabetes Mother Brianda duboison Hypertension Mother Brianda pulido Miscarriages / Stillbirths Mother Brianda pulido Hearing loss Father Silvestre pulido Heart disease Father Silvestre pulido Hypertension Father Silvestre pulido Kidney disease Father Silvestre pulido Stroke Father Silvestre pulido Arthritis Father Silvestre pulido Heart disease Brother Mian ashok Allergies Bee venom protein (honey bee), Codeine, Hydromorphone, Morphine, Oxycodone, Propoxyphene, Wasp venom, Atorvastatin calcium, Grass pollen, House dust, Mold, Rosuvastatin calcium, Simvastatin, and Niacin Review of Systems As per HPI. At least 10 systems reviewed and are otherwise negative Physical Exam General: Well developed. NAD. HEENT: PERRL. EOMI. [place] conjunctiva. Trachea midline. Cardiovascular: S1, S2. RRR. No edema. Respiratory: Breath sounds clear bilaterally, posterior anterior chest. No cyanosis. No hypoxia. GI: Abdomen soft, nontender. Bowel sounds present in all quadrants . : No bladder distention. MS: CORRAL. Right surgical knee. Neuro: Alert, oriented. No numbness or paresthesia. Skin: Warm, dry. Surgical dressing intact. Last Recorded Vitals BP 136/70 (BP Location: Right arm, Patient Position: Lying) Pulse 76 Temp 37.2 C (99 F) (Temporal) Resp 19 SpO2 97% Relevant Results Lab Results Component Value Date GLUCOSE 84 03/21/2024 CALCIUM 10.2 03/21/2024 NA 142 03/21/2024 K 4.5 03/21/2024 CO2 24 03/21/2024 CL 103 03/21/2024 BUN 18 03/21/2024 CREATININE 0.90 03/21/2024 Lab Results Component Value Date WBC 9.9 03/21/2024 HGB 13.5 03/21/2024 HCT 41.4 03/21/2024 MCV 90 03/21/2024 PLT 439 03/21/2024 XR knee left 1-2 views Result Date: 04/03/2024 Interpreted By: Herman Marquez, STUDY: XR KNEE LEFT 1-2 VIEWS; 04/03/2024 10:27 am INDICATION: Signs/Symptoms:Post-op knee. COMPARISON: None. ACCESSION NUMBER(S): [id number] ORDERING CLINICIAN: TIN WEST FINDINGS: Components of left knee arthroplasty are in anatomic alignment. Postoperative soft tissue gas. New left knee arthroplasty in anatomic alignment. MACRO: None Signed by: Herman Marquez 04/03/2024 11:33 AM Dictation workstation: [id number] Assessment/Plan Atrial fibrillation Eliquis resumed per orthopedic surgery at decreased dose Continue flecainide and diltiazem Monitor on tele Left knee osteoarthritis S/p left total knee arthroplasty by Dr. West on 04/03/24 Pain management Incentive spirometer Bowel regimen Management per orthopedic surgery Hypertension Hold losartan/hydrochlorothiazide Diltiazem resumed Monitor blood pressure Hyperlipidemia Continue zetia and lopid Plan Admitted to orthopedic surgery Pain management/bowel regimen Encourage incentive spirometer DVT prophylaxis: eliquis restarted at decreased dose per ortho PT/OT CBC and BMP in AM Thank you so much for this consult. Will continue to follow. SANDOVAL Marcos [facility] Work Phone: [phone] Consult note* SANDOVAL Marcos - 04/03/2024 1:51 PM EDTAssociated Order(s): Inpatient consult to Medicine Inpatient consult to Medicine Consult performed by: SANDOVAL Marcos Consult ordered by: Tin West MD Reason for consult: HTN, HLD, A fib Reason For Consult HTN, HLD, A fib History Of Present Illness Celeste Crockett is a 64 y.o. female with a past medical history of atrial fibrillation on apixaban, HLT, HTN, and aortic valve insufficiency who presented to [facility] for an anticipated left total knee replacement. Patient had been having left knee pain for years that became progressively worse. Reported difficulty standing and walking. She had been receiving injections however no longer effective. Recently fell due to instability. Patient underwent left total knee arthroplasty by Dr. West on 04/03/24. Does report pain behind her knee, mild nausea, and feeling lightheaded when she stood with therapy. Denies chest pain, shortness of breath, or vomiting. No abdominal discomfort. Admitted to [facility]. Medicine consulted for management of chronic medical conditions, HTN, A fib, HLD. Past Medical History She has a past medical history of Anxiety, Aortic valve insufficiency, Arthritis, Asthma ([facility]),Atrial fibrillation (Multi), Easy bruising, Heart disease (2018), Hyperlipidemia, Hypertension, Joint pain, Panic disorder, and Vision loss. Surgical History She has a past surgical history that includes Other surgical history (Left); Cardiac catheterization (2018); Other surgical history; Hysterectomy; Tonsillectomy; Breast biopsy (2016?); Breast lumpectomy; Colonoscopy (2018); and Upper gastrointestinal endoscopy (2018). Social History She reports that she quit smoking about 28 years ago. Her smoking use included cigarettes. She started smoking about 44 years ago. She has a 7.5 pack-year smoking history. She has never used smokeless tobacco. She reports current alcohol use. She reports that she does not use drugs. Family History Family History Problem Relation Name Age of Onset Arthritis Mother Brianda pulido Cancer Mother Brianda pulido Diabetes Mother Brianda pulido Hypertension Mother Brianda pulido Miscarriages / Stillbirths Mother Brianda pulido Hearing loss Father Silvestre pulido Heart disease Father Silvestre pulido Hypertension Father Silvestre pulido Kidney disease Father Silvestre pulido Stroke Father Silvestre pulido Arthritis Father Silvestre pulido Heart disease Brother Mian pulido Allergies Bee venom protein (honey bee), Codeine, Hydromorphone, Morphine, Oxycodone, Propoxyphene, Wasp venom, Atorvastatin calcium, Grass pollen, House dust, Mold, Rosuvastatin calcium, Simvastatin, and Niacin Review of Systems As per HPI. At least 10 systems reviewed and are otherwise negative Physical Exam General: Well developed. NAD. HEENT: PERRL. EOMI. [place] conjunctiva. Trachea midline. Cardiovascular: S1, S2. RRR. No edema. Respiratory: Breath sounds clear bilaterally, posterior anterior chest. No cyanosis. No hypoxia. GI: Abdomen soft, nontender. Bowel sounds present in all quadrants . : No bladder distention. MS: CORRAL. Right surgical knee. Neuro: Alert, oriented. No numbness or paresthesia. Skin: Warm, dry. Surgical dressing intact. Last Recorded Vitals BP 136/70 (BP Location: Right arm, Patient Position: Lying) Pulse 76 Temp 37.2 C (99 F) (Temporal) Resp 19 SpO2 97% Relevant Results Lab Results Component Value Date GLUCOSE 84 03/21/2024 CALCIUM 10.2 03/21/2024 NA 142 03/21/2024 K 4.5 03/21/2024 CO2 24 03/21/2024 CL 103 03/21/2024 BUN 18 03/21/2024 CREATININE 0.90 03/21/2024 Lab Results Component Value Date WBC 9.9 03/21/2024 HGB 13.5 03/21/2024 HCT 41.4 03/21/2024 MCV 90 03/21/2024 PLT 439 03/21/2024 XR knee left 1-2 views Result Date: 04/03/2024 Interpreted By: Herman Marquez, STUDY: XR KNEE LEFT 1-2 VIEWS; 04/03/2024 10:27 am INDICATION: Signs/Symptoms:Post-op knee. COMPARISON: None. ACCESSION NUMBER(S): [id number] ORDERING CLINICIAN: TIN WEST FINDINGS: Components of left knee arthroplasty are in anatomic alignment. Postoperative soft tissue gas. New left knee arthroplasty in anatomic alignment. MACRO: None Signed by: Herman Marquez 04/03/2024 11:33 AM Dictation workstation: [id number] Assessment/Plan Atrial fibrillation Eliquis resumed per orthopedic surgery at decreased dose Continue flecainide and diltiazem Monitor on tele Left knee osteoarthritis S/p left total knee arthroplasty by Dr. West on 04/03/24 Pain management Incentive spirometer Bowel regimen Management per orthopedic surgery Hypertension Hold losartan/hydrochlorothiazide Diltiazem resumed Monitor blood pressure Hyperlipidemia Continue zetia and lopid Plan Admitted to orthopedic surgery Pain management/bowel regimen Encourage incentive spirometer DVT prophylaxis: eliquis restarted at decreased dose per ortho PT/OT CBC and BMP in AM Thank you so much for this consult. Will continue to follow. SANDOVAL Marcos documented in this encounterUnHocking [facility] Work Phone: [phone]) [phone] Note* Perioperative Nursing Note - Odilia Desai RN - 04/03/2024 11:50 AM EDT Transport at bedside. Patient transferred to Division Status Stable. [facility]06-10-2024 Note* Perioperative Nursing Note - Odilia Desai RN - 04/03/2024 10:00 AM EDT Patient received to Pacu Mclean #3 from OR. Anesthesia at bedside. Report received. Initial assessmentcomplete. VSS on Loan Coordinator. Patient resting appears comfortable. No signs or symptoms of painnoted. [facility] Work Phone: [phone]) 277-757106-10-2024 Hospital Discharge instructions* Discharge Instructions* Tin West MD - 04/03/2024 9:41 AM EDT Dressing: remove after 1 week. Call if any drainage is coming out of the bandage. Weight bearing: weight bear as tolerated Showering: may shower Bathing: no tub bathing or pools Driving: no driving Call with any concerns. documented in this encounterUnHocking [facility] Work Phone: [phone]) 515-525806-10-2024 Note* Op Note - Tin West MD - 04/03/2024 8:24 AM EDT Arthroplasty Resurfacing Total Knee [id number] - FL ARTHRP KNE CONDYLE&PLATU MEDIAL&LAT COMPARTMENTS Operative Note Date: 04/03/2024 OR Location: [facility] Name: Leeann Alonso, : 1960, Age: 64 y.o., , Sex: female PRE Diagnosis Left knee osteoarthritis POST Diagnosis Same Procedures Left total knee arthroplasty subvastus approach Surgeons * Tin West - Primary Resident/Fellow/Other Drill Press Set Up Operator: nitza Snowden joe Procedure Summary Implants: Styker Cemented Triathlon Total Knee: Femur size 3 posterior stabilized, size 3 primary tibial baseplate, size A32 N2Vac Patella, size 3x11 posterior stabilized N2Vac tibial bearing insert Anesthesia: LMA with adductor canal block ASA: III Anesthesia Staff: Anesthesiologist: Israel Corea MD PROOF TESTER: Nikki Alex APRN-PROOF TESTER Estimated Blood Loss: 50 mL Specimen: No specimens collected Staff: Match Up Person: Katy Rodgers RN Scrub Person: Tesfaye Wright; Cy Sorto; Nikki Gr Drains and/or Catheters: 2 Hemovac Tourniquet Times: Total Tourniquet Time Documented: Thigh (Left) - 49 minutes Total: Thigh (Left) - 49 minutes Findings: Patient had severe degenerative changes with medial joint space [id number] apposition and peripheral osteophyte formation. Absent ACL. Stable implantation of the above components. Neutralalignment stable in extension to an axial loading exam. Patella tracked normally through a subvastus approach. Indications: Leeann Alonso is an 64 y.o. female who is having surgery for LEFT KNEE OSTEOARTHRITIS. Patient presented with pain and symptoms of her left knee. Pain not relieved with conservative care affecting daily activities. She had reached a point of disability. X-rays revealed severe degenerative change along the medial joint space. I discussed with her further options and she wishedto proceed with a knee replacement surgery. I discussed with the patient the risks, benefits, alternatives, complications of a total knee replacement. The risks, including but not limited to, deep vein thrombosis, pulmonary embolism, infection, knee stiffness, periprosthetic fracture, damage to ligaments tendons or neurovascular structures was discussed. Despite these risks they elected to proceed. Procedure Details: Medications: Antibiotics: Ancef 2 g IV, tranexamic acid 2 g IV, Decadron 10 milligrams IV Patient was seen and evaluated in the preoperative area and the left leg was marked as the operative extremity. They were then brought back to the operating room after anesthesia administered an adductor canal block. Patient was laid supine on the table and anesthesia team controlled the head neck and airway administered general anesthetic. Rondon catheter was inserted. The well leg was wrapped and secured to the table. The operative leg was prepped with a well- padded thigh tourniquet. We then washed the skin with a chlorhexidine wash and alcohol. We then prepped with a ChloraPrep and draped in the usual fashion. An operative time-out was performed. I then exsanguinated the leg with an Esmarch and elevated the tourniquet to 250 millimeters of mercury. I marked out the anterior landmarks of the knee and a midline incision. I created the incision withthe scalpel and used the Bovie to dissect down through the subcutaneous tissue to the level of the extensor mechanism. I created full- thickness skin flaps medial and laterally. Identified the VMO andplaced a Hohmann retractor deep to this to retract the extensor mechanism laterally. Marked out thesubvastus approach. I created this with the scalpel. I then used the Bovie to dissect a subperiosteal dissection off the proximal medial tibia. I removed the infrapatellar fat pad. I released the lateral synovium and was able to flex the knee and translate the patella laterally. Patient had severe wear of the medial compartment. I marked out Whitesides line and debrided the anterior cruciate ligament. I debrided the intercondylar notch and used a drill to enter the femoral canal. I then used a flexible intramedullary alignment guide with distal cutting jig set for 5 degree valgus on the left side with an 8 millimeter resection. I set this on the more prominent medial condyle. I pinned this into position and protected the soft tissues while I resected the distal femur. My cut measured at 8millimeters. Now turned my attention to the tibia. I used a extramedullary guide centered in the tibial spines. I aligned it with respect to the medial 3rd of the tubercle, to tibial crest, and centered over talus. I adjusted for a neutral slope. I pinned the block in position with a 4 millimeter resection off the medial side. I then used a drop ly as a secondary check. I then protected the soft tissues and resected the proximal tibia. I measured the lateral thickness at 10 millimeters. I now brought the knee into extension and used the gap balancing block. I was satisfied with the alignment and the extension gap. Now returned to the femur using the 3 degree external rotation sizing guide and pinned this into position with respect to Whites[place] line, epicondylar axis and a tibial cut. I measured the femur at a size 3-4. I initially placed the size 4 4 in 1 cutting block and pinned this down. I thenresected the anterior and posterior condyles and chamfers. I then cleaned the bone cuts with a rongeur and an osteotome. I now placed the cruciate retaining trial femoral component in position and aligned with the lateral femur. This appeared to be oversized medial to laterally. I felt that there is still room to downsized to a 3 femoral component. I removed the femoral trial and repositioned a size three 4-in-1 cutting guide. I resected the anterior and anterior chamfer bone cuts. The other cuts did not have resections. I then trialed the size 3 cruciate retaining femoral component along thelateral edge. This had a better fit. I drilled for the lug holes. I now placed the box cutting guide in line with the lateral border of the femur. I pinned this into position then used a distal chisel and oscillating saw to resect the box and removed the PCL with the Bovie. I now cleaned the posterior aspect of the knee with the Bovie removing the medial and lateral meniscus in their entirety. I preserved the popliteus tendon. I then took a curved osteotome and resected the posterior condylar osteophytes bilaterally decompressing the posterior space. I provisionally sized the tibia to a size 3. I did a trial reduction with the trial components and a 7 millimeter insert. I brought the knee through range of motion was satisfied with the tracking and varus valgus stability throughout. The northway patella tracked normally. I everted the patella with 2 towel clips. I circumferentially burned a round this with the Bovie. The patella measured 22 millimeters in thickness. I took a freehand resection down to 14 millimeters of bone circumferentially. I sized an asymmetric 32. I alligned the drill guide with the medial border and drilled for the Press-Fit component. I then placed a trial and tested the kinematics and the patella tracked normally through the sub vastus approach. I now removedthe trial components and finished my tibial preparation. I pinned the base plate into position and then used the keel punch. I now removed the base plate and used the 4 corner drill guide. I now removed this and thoroughly irrigated the soft tissue and bone in preparation for implantation. I flexedthe knee and translated the tibia forward. I impacted the tibial component 1st. I then reduced the knee. I now impacted the femoral component. I cleaned the locking mechanism and inserted the polyethylene component. I also irrigated clean and dried the patella seated the patellar component. I tested the knee through range of motion was satisfied with the tracking of the patella and knee kinematics. I extended the knee and irrigated with Betadine. I washed this out with normal saline. I then packed the knee and dropped the tourniquet. I obtained hemostasis. I then placed 1 intra-articular drain and closed the arthrotomy in a semi flexed position with #2 Ethibond for a watertight seal tested through range of motion. I then placed an extra-articular drain, irrigated and closed in a layered fashion of running 0 Vicryl, buried interrupted 2-0 Vicryl, running 4-0 Monocryl. Dermabond and a silver dressing were applied. The patient tolerated procedure well and was awakened taken to PACU in stable condition. No complications encountered. Complications: None; patient tolerated the procedure well. Disposition: PACU - hemodynamically stable. Condition: stable Attending Attestation: I performed the procedure. Tin West [facility] Work Phone: 1(243) 533-756606-10-2024 Note* Pre-Procedure Note - Cynthia Lopez RN - 04/03/2024 7:57 AM EDT PREOP NERVE BLOCK COMPLETED, PATIENT TOLERATED WELL. PHOTO TO CHART [facility]06-10-2024 Attending History and physical note * Tin West MD - 04/03/2024 7:34 AM EDT H&P reviewed. The patient was examined and there are no changes to the H&P. Source Note - Nikki Zaragoza APRN-DRAWER MAKER - 03/21/2024 1:45 PM EDT CPM/PAT Evaluation Name: Leeann Crockett (Leeann Alonso) /Age: 503/03/1960/64 y.o. In-Person Chief Complaint: Left knee osteoarthritis HPI Pt is a 64 year old female with left knee osteoarthritis. Pt reports she has had left knee pain forseveral years that has gradually worsened. Due to taking care of others in her family she has had to postpone taking care of her knee pain. Pt was managing her knee pain with injections. Pt also usesice and ibuprofen to manage her pain. Pt describes her pain as an aching pain that occurs with prolo nged walking and standing. Her left knee occasionally feels unstable and has caused her to fall about 2 months ago. Pt denies weakness, numbness, or tingling in her left foot. Pt was examined by her surgeon and has been scheduled for left total knee arthroplasty. Past Medical History: Diagnosis Date Anxiety Aortic valve insufficiency Mild Arthritis left knee Asthma (HHS-HCC) Atrial fibrillation (Multi) Hyperlipidemia Hypertension Panic disorder Past Surgical History: Procedure Laterality Date CARDIAC CATHETERIZATION 2018 Normal coronary arteries HYSTERECTOMY OTHER SURGICAL HISTORY Left left knee meniscus repair OTHER SURGICAL HISTORY breast reduction TONSILLECTOMY Social History Tobacco Use Smoking status: Former Current packs/day: 0.00 Average packs/day: 0.3 packs/day for 2.4 years (0.6 ttl pk-yrs) Types: Cigarettes Start date: 1981 Quit date: 03/21/1984 Years since quittin.0 Smokeless tobacco: Never Substance Use Topics Alcohol use: Yes Comment: glass of wine once per month Social History Substance and Sexual Activity Drug Use Never Allergies Allergen Reactions Bee Venom Protein (Honey Bee) Anaphylaxis Codeine Anaphylaxis Hydromorphone Anaphylaxis Morphine Cough, Dizziness, Headache, Itching, Other, Palpitations and Shortness of breath Oxycodone Cough, Dizziness, Headache, Itching, Other, Rash, Shortness of breath and Swelling Propoxyphene Shortness of breath, Cough and Dizziness Wasp Venom Anaphylaxis Atorvastatin Calcium Other MUSCLE ACHE Grass Pollen Cough House Dust Cough Mold Cough Rosuvastatin Calcium Other myalgia Simvastatin Other Leg cramping Niacin Hives, Rash and Swelling SWELLING OF TOUNGE Current Outpatient Medications Medication Sig Dispense Refill dilTIAZem CD (Cardizem CD) 240 mg 24 hr capsule Take 1 capsule (240 mg) by mouth once daily. Eliquis 5 mg tablet Take 1 tablet (5 mg) by mouth 2 times a day. ezetimibe (Zetia) 10 mg tablet Take 1 tablet (10 mg) by mouth once daily. flecainide (Tambocor) 100 mg tablet Take 1 tablet (100 mg) by mouth every 12 hours. gemfibrozil (Lopid) 600 mg tablet Take 1 tablet (600 mg) by mouth 2 times a day. losartan-hydrochlorothiazide (Hyzaar) 50-12.5 mg tablet Take 1 tablet by mouth once daily. chlorhexidine (Peridex) 0.12 % solution Use as directed. 473 mL 0 No current facility-administered medications for this visit. Review of Systems Constitutional: Positive for activity change. HENT: Negative. Respiratory: Positive for shortness of breath (H/O mild SOB on exertion). Cardiovascular: Negative. Gastrointestinal: Negative. Endocrine: Negative. Genitourinary: Negative. Musculoskeletal: Left knee pain Skin: Negative. Neurological: Negative. Hematological: Negative. Psychiatric/Behavioral: Negative. BP 128/50 Pulse 76 Temp 37 C (98.6 F) (Temporal) Ht 1.575 m (5' 2) Wt 71.3 kg (157 lb 1.6 oz) SpO2 100% BMI 28.73 kg/m Physical Exam Vitals reviewed. Constitutional: Appearance: Normal appearance. HENT: Head: Normocephalic and atraumatic. Nose: Nose normal. Mouth/Throat: Mouth: Mucous membranes are moist. Pharynx: Oropharynx is clear. Eyes: Extraocular Movements: Extraocular movements intact. Conjunctiva/sclera: Conjunctivae normal. Pupils: Pupils are equal, round, and reactive to light. Cardiovascular: Rate and Rhythm: Normal rate and regular rhythm. Pulses: Normal pulses. Heart sounds: Normal heart sounds. Pulmonary: Effort: Pulmonary effort is normal. Breath sounds: Normal breath sounds. Abdominal: General: Bowel sounds are normal. Palpations: Abdomen is soft. Musculoskeletal: Cervical back: Normal range of motion and neck supple. Comments: Left knee pain with weight bearing Skin: General: Skin is warm and dry. Neurological: General: No focal deficit present. Mental Status: She is alert and oriented to person, place, and time. Mental status is at baseline. Psychiatric: Mood and Affect: Mood normal. Behavior: Behavior normal. Thought Content: Thought content normal. Judgment: Judgment normal. PAT AIRWAY: Airway: Mallampati:: III TM distance:: >3 FB Neck ROM:: Full normal ASA: 3 DASI: 24.2 METS: 5.7 CHADS: 2.8% RCRI: 0.9% STOP BAN Assessment and Plan: Primary osteoarthritis of left knee: arthroplasty resurfacing total knee left. HTN: Pt is taking losartan- hydrochlorothiazide. Paroxsymal atrial fibrillation: Pt is taking diltiazem, flecainide, and Eliquis. Hyperlipidemia: pt is taking Zetia; elevated triglycerides pt is taking gemfibrozil. Asthma: Pt denies needing to use her albuterol rescue inhaler. Aortic insufficiency: Last ECHO completed on 01/17/2024 scanned into Epic on 03/21/2024 under headingEpic notes. Panic disorder CBC and BMP completed in PAT. EKG completed on 02/25/2024. Dr Gann's cardiac clearance was scanned into Epic media scanned on 03/21/2024 under heading Epic notes. SANDOVAL Mcmullen [facility] Work Phone: 1(182) 355-772006-10-2024 History and physical note* Tin West MD - 04/03/2024 7:34 AM EDT H&P reviewed. The patient was examined and there are no changes to the H&P. Source Note - SANDOVAL Mcmullen - 03/21/2024 1:45 PM EDT CPM/PAT Evaluation Name: Leeann Crockett (Leeann Alonso) /Age: 503/03/1960/64 y.o. In-Person Chief Complaint: Left knee osteoarthritis HPI Pt is a 64 year old female with left knee osteoarthritis. Pt reports she has had left knee pain forseveral years that has gradually worsened. Due to taking care of others in her family she has had to postpone taking care of her knee pain. Pt was managing her knee pain with injections. Pt also usesice and ibuprofen to manage her pain. Pt describes her pain as an aching pain that occurs with prolo nged walking and standing. Her left knee occasionally feels unstable and has caused her to fall about 2 months ago. Pt denies weakness, numbness, or tingling in her left foot. Pt was examined by her surgeon and has been scheduled for left total knee arthroplasty. Past Medical History: Diagnosis Date Anxiety Aortic valve insufficiency Mild Arthritis left knee Asthma (HHS-HCC) Atrial fibrillation (Multi) Hyperlipidemia Hypertension Panic disorder Past Surgical History: Procedure Laterality Date CARDIAC CATHETERIZATION 2018 Normal coronary arteries HYSTERECTOMY OTHER SURGICAL HISTORY Left left knee meniscus repair OTHER SURGICAL HISTORY breast reduction TONSILLECTOMY Social History Tobacco Use Smoking status: Former Current packs/day: 0.00 Average packs/day: 0.3 packs/day for 2.4 years (0.6 ttl pk-yrs) Types: Cigarettes Start date: 1981 Quit date: 03/21/1984 Years since quittin.0 Smokeless tobacco: Never Substance Use Topics Alcohol use: Yes Comment: glass of wine once per month Social History Substance and Sexual Activity Drug Use Never Allergies Allergen Reactions Bee Venom Protein (Honey Bee) Anaphylaxis Codeine Anaphylaxis Hydromorphone Anaphylaxis Morphine Cough, Dizziness, Headache, Itching, Other, Palpitations and Shortness of breath Oxycodone Cough, Dizziness, Headache, Itching, Other, Rash, Shortness of breath and Swelling Propoxyphene Shortness of breath, Cough and Dizziness Wasp Venom Anaphylaxis Atorvastatin Calcium Other MUSCLE ACHE Grass Pollen Cough House Dust Cough Mold Cough Rosuvastatin Calcium Other myalgia Simvastatin Other Leg cramping Niacin Hives, Rash and Swelling SWELLING OF TOUNGE Current Outpatient Medications Medication Sig Dispense Refill dilTIAZem CD (Cardizem CD) 240 mg 24 hr capsule Take 1 capsule (240 mg) by mouth once daily. Eliquis 5 mg tablet Take 1 tablet (5 mg) by mouth 2 times a day. ezetimibe (Zetia) 10 mg tablet Take 1 tablet (10 mg) by mouth once daily. flecainide (Tambocor) 100 mg tablet Take 1 tablet (100 mg) by mouth every 12 hours. gemfibrozil (Lopid) 600 mg tablet Take 1 tablet (600 mg) by mouth 2 times a day. losartan-hydrochlorothiazide (Hyzaar) 50-12.5 mg tablet Take 1 tablet by mouth once daily. chlorhexidine (Peridex) 0.12 % solution Use as directed. 473 mL 0 No current facility-administered medications for this visit. Review of Systems Constitutional: Positive for activity change. HENT: Negative. Respiratory: Positive for shortness of breath (H/O mild SOB on exertion). Cardiovascular: Negative. Gastrointestinal: Negative. Endocrine: Negative. Genitourinary: Negative. Musculoskeletal: Left knee pain Skin: Negative. Neurological: Negative. Hematological: Negative. Psychiatric/Behavioral: Negative. BP 128/50 Pulse 76 Temp 37 C (98.6 F) (Temporal) Ht 1.575 m (5' 2) Wt 71.3 kg (157 lb 1.6 oz) SpO2 100% BMI 28.73 kg/m Physical Exam Vitals reviewed. Constitutional: Appearance: Normal appearance. HENT: Head: Normocephalic and atraumatic. Nose: Nose normal. Mouth/Throat: Mouth: Mucous membranes are moist. Pharynx: Oropharynx is clear. Eyes: Extraocular Movements: Extraocular movements intact. Conjunctiva/sclera: Conjunctivae normal. Pupils: Pupils are equal, round, and reactive to light. Cardiovascular: Rate and Rhythm: Normal rate and regular rhythm. Pulses: Normal pulses. Heart sounds: Normal heart sounds. Pulmonary: Effort: Pulmonary effort is normal. Breath sounds: Normal breath sounds. Abdominal: General: Bowel sounds are normal. Palpations: Abdomen is soft. Musculoskeletal: Cervical back: Normal range of motion and neck supple. Comments: Left knee pain with weight bearing Skin: General: Skin is warm and dry. Neurological: General: No focal deficit present. Mental Status: She is alert and oriented to person, place, and time. Mental status is at baseline. Psychiatric: Mood and Affect: Mood normal. Behavior: Behavior normal. Thought Content: Thought content normal. Judgment: Judgment normal. PAT AIRWAY: Airway: Mallampati:: III TM distance:: >3 FB Neck ROM:: Full normal ASA: 3 DASI: 24.2 METS: 5.7 CHADS: 2.8% RCRI: 0.9% STOP BAN Assessment and Plan: Primary osteoarthritis of left knee: arthroplasty resurfacing total knee left. HTN: Pt is taking losartan- hydrochlorothiazide. Paroxsymal atrial fibrillation: Pt is taking diltiazem, flecainide, and Eliquis. Hyperlipidemia: pt is taking Zetia; elevated triglycerides pt is taking gemfibrozil. Asthma: Pt denies needing to use her albuterol rescue inhaler. Aortic insufficiency: Last ECHO completed on 01/17/2024 scanned into [facility] on 03/21/2024 under headingEpic notes. Panic disorder CBC and BMP completed in PAT. EKG completed on 02/25/2024. Dr Gann's cardiac clearance was scanned into [facility] media scanned on 03/21/2024 under heading Epic notes. SANDOVAL Mcmullen documented in this [facility] Work Phone: 1(395) 411-101407-12-2023 Discharge summary Author Susan Zambrano [facility] May 05, 2023 5:28pm Note Date/Time May 05, 2023 5:28 pm [facility] Physical Therapy [facility] [address] [place] [address] / REHABILITATION SERVICES DISCHARGE SUMMARY MR#: [id number] Acct: [id number] Name: LEEANN CROCKETT Rep #: [id number] : 1960 63 From: Susan Zambrano MP T Referring Dr.: Dr. Nate Rubio MD Status: REG RCR Insurance: [employer]ANCE Discharge Summary D/C summary: It has been my pleasure to treat LEEANN CROCKETT referred by Dr. Nate Rubio MD, with the diagnosis of L menisectomy/OA for a total of 14 visit(s). Discharge Date: 05/05/23 Please see the following information for a summary of their discharge status. Subjective Subjective: At [employer] and does the Leg Press, biking, HEP 2 X/ kia. Sheis staying active. She feels that she is getting stronger. She knows her limits. She is doing good on steps. If she sit to long it takes her a few minutes until her L leg feels good and then she can walk on it. No more sharp pains. Pain L knee pain: Pain Intensity (Out of 10): 2 Overall Improvement % Improvement: 90 Objective Objective/Function: stairs: gait: pt is still not putting her full weight on the L LE with gait Stairs: up and down recip with one had rail... she still shows some signs of weakness on the L when ascending and decreased eccentric control when descendingthe steps. LE MMT: R hip flex 13 and L 13.8 R knee ext 16.8 L 14.8 R knee flex 10.5 and L 9.7 Goals Goal 1:: I HEP Goal Progress: Goal Met Goal 2:: Walk with normal gait pattern with no antalgic gait Goal Progress: Progressing Goal 3:: Increase L Knee AROM 0-120 Goal Progress: Goal Met Goal 4:: Be able to go up and down the steps recip with 1 hand rail for balance with no signs of weakness Goal Progress: Progressing Plan Plan: DC PT to I exercise program D/C Information Discharge Comments: DC PT to own I program d/c sentence: If there are questions or concerns regarding this patient's physical therapy, please feel free to call me at [phone]. Thank you for the referral of thispatient. Sincerely, JOYCE Siddiqui Balance/Gait/Functional tests Balance/Special Test Scores Lower Extremity Functional Score: 55 <Electronically signed by Susan Zambrano MPT> 05/05/23 1728 CC: Dr. Yennifer Johnson MD; Dr. Nate Rubio MD ~ Signed [facility] Work Phone: 1([phone]) 613-862805-03-[address] Rubio [facility] February 24, 2023 8:18am Note Date/Time February 24, 2023 8:18am [facility] Medical Records Department [address] [place] [address] Instructions for Home/Discharge Instructions 02/24/23 0817 MR#: [id number] Acct: [id number] Name: LEEANN CROCKETT Rep #:[id number] : 1960 62 From: Nate Rubio MD PCP: Dr. Yennifer Johnson MD [place] [facility] Inst[place] Diet Discharge Diet: No restrictions Activity Discharge Activity: Return to Normal Activity and Use Crutches Ice area for (Minutes): 10 Weight Bearing Status: Full weight bearing Keep extremity elevated above heart level: Operative Extremity Dressing / Incision Call your doctor if your incision/area has: Continuous Slow Oozing, Sudden Increased Bleeding, Increased Pain/ Swelling, Increased Redness, Foul Smelling Discharge and Swelling at the incision site Change Dressing in: leave in place till F/U Follow Up Care Please Follow Up With: Nate Rubio MD When: 2 days Test Results: Test results from this visit will be discussed in further detail at your follow- up appointment, if applicable. Discharge Plan Admission Attending Provider: Nate Rubio Primary Care Provider: Yennifer Johnson Instructions Patient Instructions: After Knee Arthroscopy Discharge Orders/Prescriptions Prescriptions: No Action vitamin B complex [B Complex-Vitamin B12] Tablet 1 tab PO DAILY calcium carbonate-vitamin D3 200 mg (500 mg) -400 unit tablet 1 tab PO DAILY ibuprofen 600 MG tablet 600 mg PO Q6H PRN PRN (Reason: Pain Score 1-10/10) Qty: 60 0RF (DME) disability placard See Rx Instructions .ROUTE .MEDSUPPLY Qty: 1 0RF Rx Instructions: As directed, Length of time: 5 years gemfibrozil 600 mg tablet 600 mg PO BID Qty: 180 3RF losartan-hydrochlorothiazide 50-12.5 mg tablet 1 tab PO DAILY Qty: 90 3RF Eliquis 5 mg tablet 5 mg PO BID Qty: 180 3RF diltiazem HCl 240 mg capsule,extended release 24hr 240 mg PO DAILY Qty: 90 3RF flecainide 100 mg tablet 100 mg PO Q12H Qty: 180 3RF ezetimibe 10 mg tablet 10 mg PO DAILY Qty: 90 3RF Referrals / Follow Up: Yennifer Johnson MD [Primary Care Provider] - Nate Rubio MD [Med Staff - Active Staff] - Disposition Disposition (needs filled in before D/C Order can be placed): Home, Self Care 02/24/23 0818<Electronically signed by Nate Rubio MD>Nate Rubio MD CC: Dr. Yennifer Johnson MD ~ Signed [facility] Work Phone: [phone]) [phone] History and physical note Author Dr. Rubio [facility] February 24, 2023 7:11am Note Date/Time February 24, 2023 7:11am [facility] Medical Records Department [address] [place] [address] History & Physical Exam 02/24/23 0709 MR#: [id number] Acct: [id number] Name: LEEANN CROCKETT Rep #:[id number] : 1960 62 From: Nate Rubio MD PCP: Dr. Yennifer Johnson MD [place] [facility] [address] HPI - General HPI Narrative LEEANN CROCKETT, is a 62 F who presents for left knee arthroscopy, MM and debridement. No changes to h and p. OK to proceed, left knee marked. RAB and post op WBAT with crutches discussed. Patient allergic to many narcotics, so getting spinal and block, will use tylenol and NSAIDs post op. No further questions. MR#: [id number] Acct: [id number] Name:LEEANN CERVANTES Rep #: [id number] : 1960 ? ? Provider: Dr. Nate Rubio MD Age/Sex:? 62/F ? ? [place] [facility] [place] Status: Signed Intake Vital Signs ? 07/27/2213:39 Height 5 ft 3 in Intake Visit Reasons:?LEFT KNEE Chief Complaint: left knee pain Is patient in pain?: Yes Pain scale (1-10): 9 Allergies dog dander Allergy (Severe, Verified 02/04/23 08:04) SwellingOpioids - Morphine Analogues Allergy (Severe, Verified 02/04/23 08:04) Anaphylaxisperfume Allergy (Severe, Verified 02/04/23 08:04) swellingvenom-honey bee Allergy (Severe, Verified 02/04/23 08:04) Anaphylaxisbee pollen Allergy (Verified 02/04/23 08:04) Anaphylaxiscodeine Allergy (Verified 02/04/23 08:04) Anaphylaxisniacin Allergy (Verified 02/04/23 08:04) Angioedemaoxycodone HCl [From Percocet] Allergy (Verified 02/04/23 08:04) Anaphylaxispropoxyphene napsylate [From Darvocet-N] Allergy (Verified 02/04/23 08:04) Angioedemasimvastatin [From Zocor] Allergy (Verified 02/04/23 08:04) Angioedemaadhesive Adverse Reaction (Severe, Verified 02/04/23 08:04) Otherhydromorphone [From Dilaudid] Adverse Reaction (Mild, Verified 02/04/23 08:04) Other Medications ibuprofen 600 mg tablet 600 mg PO Q6H PRN PRN Pain Score 1-08/03 #60 tabs 07/28/19 [Rx Confirmed 02/04/23] disability placard #1 ea 11/13/20 [Rx Confirmed 02/04/23] omeprazole 40 mg capsule,delayed release 40 mg PO DAILY #90 caps 06/09/22 [Rx Confirmed 02/04/23] vitamin B complex (B Complex-Vitamin B12 tablet) 1 tab PO DAILY 06/24/22 [History Confirmed 02/04/23] calcium carbonate 200 mg calcium (500 mg)-vitamin D3 400 unit tablet tab PO 08/06/22 [History Confirmed 02/04/23] apixaban 5 mg tablet (Eliquis) 5 mg PO BID #180 tabs 11/02/22 [Rx Confirmed 02/04/23] diltiazem HCl 240 mg capsule,extended release 24 hr 240 mg PO DAILY #90 caps 11/02/22 [Rx Confirmed 02/04/23] ezetimibe 10 mg tablet 10 mg PO DAILY #90 tabs 11/02/22 [Rx Confirmed 02/04/23] flecainide 100 mg tablet 100 mg PO Q12H #180 tabs 11/02/22 [Rx Confirmed 02/04/23] gemfibrozil 600 mg tablet 600 mg PO BID #180 tabs 11/02/22 [Rx Confirmed 02/04/23] losartan 50 mg-hydrochlorothiazide 12.5 mg tablet 1 tab PO DAILY #90 TABLETS 11/02/22 [Rx Confirmed 02/04/23] PFSH Medical History?(Updated 02/04/23 @ 08:22 by Nate Rubio MD) Anemia Anxiety and depression Arthritis Asthma (12/06/15) Asthma exacerbation Atrial fibrillation Back pain Back problem Breast lump in female Cardiology follow-up encounter Change in bowel habits Chest pain Chest pain Colon cancer screening Cough Dizziness Dizziness and giddiness Dyspnea on exertion Dyspnea on exertion Essential (primary) hypertension Fecal incontinence Frequent headaches GERD (gastroesophageal reflux disease) Heartburn History of atrial fibrillation History of echocardiogram History of stress test Hypertension Left ventricular hypertrophy Leg cramps Mixed hyperlipidemia Nonrheumatic aortic valve insufficiency Osteoarthritis of left knee Palpitations Paroxysmal atrial fibrillation Paroxysmal ventricular tachycardia Preventative health care Restless legs Routine adult health maintenance Seasonal allergies Shortness of breath on exertion Syncope and collapse Syncope and collapse Synovial cyst of popliteal space [Poe], left knee Tear of medial meniscus of left knee Upper respiratory infection Wears glasses Surgical History? H/O tubal ligation History of bilateral breast reduction surgery History of cardiac catheterization History of left heart catheterization (05/25/18) History of lumpectomy of left breast History of partial hysterectomy Hx of colonoscopy Hx of tonsillectomy Family History? Father CVA (cerebral vascular accident) Diabetes Hypertension High cholesterolMother Breast cancer Cancer Diabetes HypertensionGrandmother?? CAD (coronary artery disease) Myocardial infarction,? Onset Age: 68Brother DiabetesAunt Cancer Social History? Smoking Status:? Former smoker quit date: 06/25/96 pack-years: 16 Tobacco: How many years used:? 12 Electronic Cigarette Use:? not used how long ago did patient quit smoking:? 23 years ago second hand exposure:? No alcohol intake:? current alcohol intake frequency: holidays/special occasions only Alcohol type: wine substance use type:? does not use caffeine:? Yes Type: coffee Number of servings: 1 what type of physical activity do you participate in:? none additional social history:? DOES USE ASPIRIN DOES USE IBUPROFEN HPI LEFT KNEE Details: Parts of this documentation were recorded by a scribe, this documentation accurately reflects the service provided and the decisions made by me, Dr. Nate Rubio MD 02/04/23 0803. LEEANN CROCKETT is a 62 year old F follow-up left knee MRI .? The cortisone injection is worn off completely.? The patient is getting stabbing pain along the medial joint line and just superior to this especially with prolonged walking or twisting on the knee feels like there is some stabbing pain some giving way in that area.? Ortho Exam General General: Yes no acute distress Neurologic: Yes alert and Yes oriented x3 Psychologic: Yes reasonable and appropriate Right Knee Patella Translation: 2 Left Knee Skin/Wound: Yes CDI, No ecchymosis, No erythema and Yes swelling Knee ROM: Yes ROM-Flexion 0-140 Examination: Yes med jt line tenderness, No Lat jt line tenderness, No TTP inf pole patella, Yes Crepitus, Yes Pain with flexion, Yes Jay's Test, No TTP Patellar tendon, No TTP Tibial tubercle, No TTP Pes Anserine and No Illiotibial band tenderness Stability: NML: Anterior Drawer, NML: Davon, NML: Posterior Drawer, NML: Valgus 0, NML: Valgus 30, NML: Varus 0 and NML: Varus 30 Patella Translation: 2 Patellar Tilt Normal: Yes Patella Grind: Yes KNEE: normal gait Supplemental Info [facility] Imaging Services [address] [place] [address] Lower Ext Joint Only (Routine) MR#:? [id number] Acct: [id number] Name:? LEEANN CROCKETT Rep #: [id number] :?? 1960 F 62 ? From:? ? Maximilian Garnett MD PCP: Dr. Yennifer Johnson MD ? Status: REG CLI Study: Lower Ext Joint Only (Routine) ? Date of Exam: 02/02/23 Exam# [id number] ? Ordering Dr:? Nate Rubio MD STUDY:? MRI LEFT KNEE REASON FOR EXAM:? Female, 62 years old. ? medial pain x 6 months, swelling, painful ambulation TECHNIQUE:? Standardized fat and water weighted pulse sequences were obtained in all 3 orthogonal planes. COMPARISON:? X-ray of the left knee dated August 06, 2022 FINDINGS: Free edge radial tearing is present in the body and anterior horn of the medial meniscus. There is also intrasubstance degenerative signal and slight swelling throughout the posterior horn of the medial meniscus. The body is partly subluxed out of the joint space due to narrowing.? There is diffuse, greater than 50% thickness articular cartilage loss of the medial femorotibial compartment.? There is mild osteoarthritic spur formation of the medial knee compartment. ? Mild subchondral reactive signal is also seen on both sides of the medial compartment with developing subchondral cystic changes. Normal medial collateral ligamentous complex (MCL).? Normal distal semimembranosus, gracilis and semitendinosus tendons. There is attrition of the free edge of the lateral meniscus without a demonstrated meniscal tear.? There is diffuse, less than 50% thickness articular cartilage loss of the lateral femorotibial compartment.? Normal lateral femoral condyle and tibial plateau. Normal proximal tibiofibular articulation.? Normal lateral collateral (fibular) ligament.? Normal popliteus tendon.? Normal biceps femoris tendon. Normal anterior cruciate ligament (ACL).? Normal posterior cruciate ligament (PCL). Normal congruent patellofemoral articulation.? There is diffuse, greater than 50% thickness articular cartilage loss of the patellofemoral compartment. There is full-thickness loss of cartilage is demonstrated over the median patellar ridge. Normal medial and lateral patellar retinaculum. Normal quadriceps tendon.? Normal patellar tendon.? Normal Hoffa''s fat pad. There is a moderate volume joint effusion.? A moderate size Poe''s cyst is also present measuring 5.80 cm with slight leakage from its inferior border. The soft tissues are unremarkable.? The otherwise visualized osseous structures are unremarkable. MRI/Lower Ext Joint Only (Routine) IMPRESSION: 1.? Moderate DJD in the medial compartment with radial tearing of the anterior horn and body of the medial meniscus and degeneration the posterior horn. 2.? Moderate to high-grade cartilage loss of the patellofemoral compartment 3.? Moderate size joint effusion 4.? Moderate-sized Poe''s cyst 5.? Diffuse thinning/attrition of the lateral meniscus ? Electronically Signed: Maximilian Garnett MD at 23:49 EDT Reading Location ID and State: [address] [address] , Service support? , ? Agree with the radiologist assessment there is tricompartmental osteoarthritis worse in the medial compartment with radial tearing of the body of the medial meniscus with some mild extrusion there. Coding Level of Care Code Off vis,est,level 4 Diagnoses Osteoarthritis of left knee? M17.12 Synovial cyst of popliteal space [Poe], left knee? M71.22 Tear of medial meniscus of left knee? S83.242A Comment decision for surgery with defined risks Assessment and Plan Assessment and Plan (1) Osteoarthritis of left knee: ?Status:?Acute ?Plan: 62-year-old female with left knee pain medial meniscus tear in the setting of moderate tricompartmental osteoarthritis and a Poe's cyst.? Discussed all the other treatment options rest ice anti-inflammatories not recommended the patient is on Eliquis continued injections viscosupplementation or cortisone activity modifications bracing physical therapy as well as a left knee arthroscopy, partial medial meniscectomy and debridement which may not resolve all the pain considering the moderate arthritis as well as considering a total knee arthroplasty.? Patient wishes to proceed with minimally invasive minor procedure probably less reliable than a total knee although patient does not desiring a large operation or joint replacement.? Discussed the pros and cons risks and benefits of this versus other treatment options as well as recovery 2 weeks on crutches 6 to 12 weeks before returning to normal activities.? Patient understands wishes to proceed.? We will have to get her certified ophthalmic medical technician Dr. Lopez clearance / opinion on when to hold eliquis. ?pros and cons risks and benefits were discussed with the patient including but not limited to infection, pain, stiffness, bleeding, damage to surrounding structures, neurovascular injury, recurrence or retear, failure or wear of hardware or fixation, instability, fracture, deep vein thrombosis and pulmonary embolism, anesthetic risks, , patient dissatisfaction, need for further surgery and other risks.? Patient understood and wished to proceed with surgery, and signed the informed consent documentation.? [facility] Medical History (Updated 02/17/23 @ 13:56 by Shanda Veronica) Anemia Anxiety and depression Arthritis Asthma (12/06/15) Asthma exacerbation Atrial fibrillation Back pain Back problem Breast lump in female Cardiology follow-up encounter Change in bowel habits Chest pain Chest pain Colon cancer screening Cough Dizziness Dizziness and giddiness Dyspnea on exertion Dyspnea on exertion Essential (primary) hypertension Fecal incontinence Frequent headaches GERD (gastroesophageal reflux disease) Heartburn High cholesterol History of atrial fibrillation History of echocardiogram History of stress test Hypertension Left ventricular hypertrophy Leg cramps Mixed hyperlipidemia Nonrheumatic aortic valve insufficiency Osteoarthritis of left knee Palpitations Paroxysmal atrial fibrillation Paroxysmal ventricular tachycardia Preventative health care Restless legs Routine adult health maintenance Seasonal allergies Shortness of breath on exertion Syncope and collapse Syncope and collapse Synovial cyst of popliteal space [Poe], left knee Tear of medial meniscus of left knee Upper respiratory infection Wears glasses Home Medications ibuprofen 600 mg tablet 600 mg PO Q6H PRN PRN Pain Score 1-08/03 #60 tabs 07/28/19 [Rx Last Taken Unknown] disability placard #1 ea 11/13/20 [Rx Last Taken Unknown] vitamin B complex (B Complex-Vitamin B12 tablet) 1 tab PO DAILY 06/24/22 [History Last Taken Unknown] calcium carbonate 200 mg calcium (500 mg)-vitamin D3 400 unit tablet 1 tab PO DAILY 08/06/22 [History Last Taken Unknown] apixaban 5 mg tablet (Eliquis) 5 mg PO BID #180 tabs 11/02/22 [Rx Last Taken 02/21/23] diltiazem HCl 240 mg capsule,extended release 24 hr 240 mg PO DAILY #90 caps 11/02/22 [Rx Last Taken 02/24/23 05:30] ezetimibe 10 mg tablet 10 mg PO DAILY #90 tabs 11/02/22 [Rx Last Taken Unknown] flecainide 100 mg tablet 100 mg PO Q12H #180 tabs 11/02/22 [Rx Last Taken 02/24/23 05:30] gemfibrozil 600 mg tablet 600 mg PO BID #180 tabs 11/02/22 [Rx Last Taken Unknown] losartan 50 mg-hydrochlorothiazide 12.5 mg tablet 1 tab PO DAILY #90 TABLETS 11/02/22 [Rx Last Taken Unknown] Allergy/AdvReac Type Severity Reaction Status Date / Time dog dander Allergy Severe Swelling Verified 02/24/23 06:22 Opioids - Morphine Analogues Allergy Severe Anaphylaxis Verified 02/24/23 06:22 perfume Allergy Severe swelling Verified 02/24/23 06:22 venom-honey bee Allergy Severe Anaphylaxis Verified 02/24/23 06:22 bee pollen Allergy Anaphylaxis Verified 02/24/23 06:22 codeine Allergy Anaphylaxis Verified 02/24/23 06:22 niacin Allergy Angioedema Verified 02/24/23 06:22 oxycodone HCl [From Percocet] Allergy Anaphylaxis Verified 02/24/23 06:22 propoxyphene napsylate Allergy Angioedema Verified 02/24/23 06:22 [From Darvocet-N] simvastatin [From Zocor] Allergy Angioedema Verified 02/24/23 06:22 adhesive AdvReac Severe Other Verified 02/24/23 06:22 hydromorphone [From Dilaudid] AdvReac Mild Other Verified 02/24/23 06:22 Family History Father CVA (cerebral vascular accident) Diabetes Hypertension High cholesterol Mother Breast cancer Cancer Diabetes Hypertension Grandmother CAD (coronary artery disease) Myocardial infarction, Onset Age: 68 Brother Diabetes Aunt Cancer Surgical History H/O tubal ligation History of bilateral breast reduction surgery History of cardiac catheterization History of left heart catheterization (05/25/18) History of lumpectomy of left breast History of partial hysterectomy Hx of colonoscopy Hx of tonsillectomy Social History Smoking Status: Former smoker quit date: 06/25/96 pack-years: 16 Tobacco: How many years used: 12 Electronic Cigarette Use: not used how long ago did patient quit smokin years ago second hand exposure: No alcohol intake: current alcohol intake frequency: holidays/special occasions only Alcohol type: wine substance use type: does not use caffeine: Yes Type: coffee Number of servings: 1 what type of physical activity do you participate in: none additional social history: DOES USE ASPIRIN DOES USE IBUPROFEN Vital Signs Vital Signs Vital Signs: 02/24/23 06:15 02/24/23 06:15 Temperature 98.1 F Temperature Source Temporal Pulse Rate 74 Respiratory Rate 18 Respiratory Pattern Normal Blood Pressure 131/77 H Blood Pressure Mean 95 Blood Pressure Source Monitor Blood Pressure Position Sitting Blood Pressure Location Right Arm Pulse Ox 100 Oxygen Delivery Method Room Air Weight Weight: 158 lb 11.725 oz Body Mass Index (BMI) 28.0 02/24/23 0711 <Electronically signed by Nate Rubio MD> Cosigner Signature (if applicable): CC: Dr. Yennifer Johnson MD; Dr. Nate Rubio MD~ Signed [facility] Work Phone: [phone]) 806-935505-03-2023 Procedure [facility] Evaluation noteNo assessment information availableMer[facility] Work Phone: Evaluation note* Diagnosis Onset Date Resolution Status Anxiety and depression acute Change in bowel habits acute Fecal incontinence acute GERD (gastroesophageal reflux disease) acute [facility] Work Phone: Evaluation note* Diagnosis Onset Date Resolution Status Anxiety and depression acute Change in bowel habits acute Fecal incontinence acute GERD (gastroesophageal reflux disease) acute Chest pressure acute Fatigue acute Paroxysmal atrial fibrillation acute Essential (primary) hypertension chronic Mixed hyperlipidemia chronic Nonrheumatic aortic valve insufficiency chronic Palpitations chronic [facility] Work Phone: Evaluation note* Diagnosis Onset Date Resolution Status Change in bowel habits acute Fecal incontinence acute Anxiety and depression chron ic GERD (gastroesophageal reflux disease) chronic Chest pressure acute Fatigue acute Paroxysmal atrial fibrillation acute Essential (primary) hypertension chronic Mixed hyperlipidemia chronic Nonrheumatic aortic valve insufficiency chronic Palpitations chronic Preventative health care acu te Anxiety and depression chron ic GERD (gastroesophageal reflux disease) chronic Palpable mass of soft tissue of knee noneactive Posterior left knee pain non eactive Fall noneactive [facility] Work Phone: Evaluation note* Diagnosis Onset Date Resolution Status Chest pressure acute Fatigue acute Paroxysmal atrial fibrillation acute Essential (primary) hypertension chronic Mixed hyperlipidemia chronic Nonrheumatic aortic valve insufficiency chronic Palpitations chronic Preventative health care acu te Anxiety and depression chron ic GERD (gastroesophageal reflux disease) chronic Palpable mass of soft tissue of knee noneactive Posterior left knee pain non eactive Fall noneactive Osteoarthritis of left knee acute Synovial cyst of popliteal space [Poe], left knee acute [facility] Work Phone: Evaluation note* Diagnosis Onset Date Resolution Status Palpable mass of soft tissue of knee noneactive Posterior left knee pain non eactive Fall noneactive Osteoarthritis of left knee acute Synovial cyst of popliteal space [Poe], left knee acute [facility] Work Phone: Evaluation note* Diagnosis Onset Date Resolution Status Osteoarthritis of left knee acute Osteoarthritis of left knee acute Synovial cyst of popliteal space [Poe], left knee acute Tear of medial meniscus of left knee acute [facility] Work Phone: Evaluation note* Diagnosis Onset Date Resolution Status Osteoarthritis of left knee acute Osteoarthritis of left knee acute Synovial cyst of popliteal space [Poe], left knee acute Tear of medial meniscus of left knee acute Osteoarthritis of left knee acute Tear of medial meniscus of left knee acute [facility] Work Phone: Evaluation note* Diagnosis Onset Date Resolution Status Osteoarthritis of left knee acute Osteoarthritis of left knee acute Synovial cyst of popliteal space [Poe], left knee acute Tear of medial meniscus of left knee acute Osteoarthritis of left knee acute Tear of medial meniscus of left knee acute Osteoarthritis of left knee acute Tear of medial meniscus of left knee acute Osteoarthritis of left knee acute Tear of medial meniscus of left knee acute [facility] Work Phone: Evaluation note* Diagnosis Onset Date Resolution Status Osteoarthritis of left knee acute Osteoarthritis of left knee acute Synovial cyst of popliteal space [Poe], left knee acute Tear of medial meniscus of left knee acute Osteoarthritis of left knee acute Tear of medial meniscus of left knee acute Osteoarthritis of left knee acute Tear of medial meniscus of left knee acute Osteoarthritis of left knee acute Tear of medial meniscus of left knee acute Tear of medial meniscus of left knee acute [facility] Work Phone: Evaluation note* Diagnosis Onset Date Resolution Status Tear of medial meniscus of left knee acute [facility] Work Phone: Evaluation note* Diagnosis Onset Date Resolution Status Paroxysmal atrial fibrillation acute Essential (primary) hypertension chronic Mixed hyperlipidemia chronic Nonrheumatic aortic valve insufficiency chronic Preventative health care acu te [facility] Work Phone: Evaluation note* Diagnosis Onset Date Resolution Status Preventative health care acu te Fatigue acute Paroxysmal atrial fibrillation acute Dizziness chronic Essential (primary) hypertension chronic Mixed hyperlipidemia chronic Nonrheumatic aortic valve insufficiency chronic Palpitations chronic [facility] Work Phone: Evaluation note* Diagnosis Arthritis of left knee- Primary Arthritis of left knee Urinary tract infection without hematuria, site unspecified HTN (hypertension) Unspecified essential hypertension Hyperlipidemia Other and unspecified hyperlipidemia Valvular heart disease Endocarditis, valve unspecified, unspecified cause Atrial fibrillation (Multi) Atrial fibrillation Asthma (HHS-HCC) Unspecified asthma Anxiety Anxiety state, unspecified documented in this encounter [facility] Work Phone[facility] Work Phone: Reason for referral (narrative)No reason for referral information availableWOhioHealth [facility] Work Phone: Summary Purpose Family History No Family History Records Found Relationship Condition Age at Onset Recorded Date/T bobo father Cerebrovascular accident (CVA) Unknown Diabetes mellitus Unknown Hypertension Unknown High blood cholesterol Unknown mother Malignant neoplasm of breast Unknown Malignant neoplasm Unknown grandmother Coronary artery disease Unknown Myocardial infarction 68 brother Diabetes mellitus Unknown aunt Malignant neoplasm Unknown Advance Directives No Advanced Directives Records Found Advance Directive Response Recorded Date/ Time Advance Directives No May 26 7:34am Living Will No May 04, 2022 4:57pm Power of Masonry Inspector No May 04 4:57pm Advance Directive Response Recorded Date/ Time Advance Directives No May 26 6:34am Living Will No May 04, 2022 3:57pm Power of Masonry Inspector No May 04 3:57pm Advance Directive Response Recorded Date/ Time Name of Medical Power of Masonry Inspector - STEPHANIE RIVERA February 17, 2023 1:47pm Advance Directives No May 26 7:34am Living Will Yes February 17, 2023 1:47pm Power of Masonry Inspector Yes February 17 1:47pm Advance Directive Response Recorded Date/ Time Advance Directives No May 26 7:34am Living Will Yes February 17, 2023 1:47pm Power of Masonry Inspector Yes February 17 1:47pm Advance Directive Response Recorded Date/ Time Advance Directives No May 26 6:34am Living Will Yes October 06 10:45am Power of Masonry Inspector Yes October 06, 2023 10:45am Advance Directive Response Recorded Date/ Time Advance Directives No May 26 7:34am Living Will Yes October 06 11:45am Power of Masonry Inspector Yes October 06, 2023 11:45am Date Activated Date Inactivated Comments 04/03/2024 6:17 AM Question Answer Comments Plan of Care: Code Status Discussion Not Compl eted Decision Maker: Provider Rationale: Patient condition does not warra nt discussion Advance Directive Response Recorded Date/ Time Advance Directives No May 26 7:34am Chief Complaint and Reason for Visit Chief Complaint sting INT LABS Chief Complaint sting INT LABS CHK UP Reason for Visit Anxiety and depressi on Change in bowel habits Fecal incontinence GERD (gastroesophageal reflux disease) Chief Complaint sting INT LABS CHK UP 1 Y FU E-ORDER Reason for Visit Anxiety and depressi on Change in bowel habits Fecal incontinence GERD (gastroesophageal reflux disease) Chest pressure Fatigue Paroxysmal atrial fibrillation Essential (primary) hypertension Mixed hyperlipidemia Nonrheumatic aortic valve insufficiency Palpitations Chief Complaint sting INT LABS CHK UP 1 Y FU E-ORDER holter PALPS 1 m fu FELL OFF OF PORCH, HURT KNEE LUMP BEHIND KNEE Reason for Visit Change in bowel habi ts Fecal incontinence Anxiety and depression GERD (gastroesophageal reflux disease) Chest pressure Fatigue Paroxysmal atrial fibrillation Essential (primary) hypertension Mixed hyperlipidemia Nonrheumatic aortic valve insufficiency Palpitations Preventative health care Anxiety and depression GERD (gastroesophageal reflux disease) Palpable mass of soft tissue of knee Posterior left knee pain Fall Chief Complaint 1 Y FU E-ORDER holter PALPS 1 m fu FELL OFF OF PORCH, HURT KNEE LUMP BEHIND KNEE LEFT KNEE room 1 xray SCREENING Reason for Visit Chest pressure Fatigue Paroxysmal atrial fibrillation Essential (primary) hypertension Mixed hyperlipidemia Nonrheumatic aortic valve insufficiency Palpitations Preventative health care Anxiety and depression GERD (gastroesophageal reflux disease) Palpable mass of soft tissue of knee Posterior left knee pain Fall Osteoarthritis of left knee Synovial cyst of popliteal space [Poe], left knee Chief Complaint FELL OFF OF PORCH, H URT KNEE LUMP BEHIND KNEE LEFT KNEE room 1 xray SCREENING Reason for Visit Palpable mass of sof t tissue of knee Posterior left knee pain Fall Osteoarthritis of left knee Synovial cyst of popliteal space [Poe], left knee Chief Complaint LEFT KNEE LEFT KNEE PAIN LEFT KNEE Reason for Visit Osteoarthritis of le ft knee Osteoarthritis of left knee Synovial cyst of popliteal space [Poe], left knee Tear of medial meniscus of left knee Chief Complaint LEFT KNEE LEFT KNEE PAIN LEFT KNEE LT KNEE ARTHROSCOPY PARTIAL MEDIAL MENISCECTOMY,DE LT KNEE ARTHROSCOPY PARTIAL MEDIAL MENISCECTOMY,DE Reason for Visit Osteoarthritis of le ft knee Osteoarthritis of left knee Synovial cyst of popliteal space [Poe], left knee Tear of medial meniscus of left knee Osteoarthritis of left knee Tear of medial meniscus of left knee Chief Complaint LEFT KNEE LEFT KNEE PAIN LEFT KNEE LT KNEE ARTHROSCOPY PARTIAL MEDIAL MENISCECTOMY,DE LT KNEE ARTHROSCOPY PARTIAL MEDIAL MENISCECTOMY,DE left knee left knee INT LABS TEAR OF MEDIAL MENISCUS LFT KNEE / RX HERE Reason for Visit Osteoarthritis of le ft knee Osteoarthritis of left knee Synovial cyst of popliteal space [Poe], left knee Tear of medial meniscus of left knee Osteoarthritis of left knee Tear of medial meniscus of left knee Osteoarthritis of left knee Tear of medial meniscus of left knee Osteoarthritis of left knee Tear of medial meniscus of left knee Chief Complaint LEFT KNEE LEFT KNEE PAIN LEFT KNEE LT KNEE ARTHROSCOPY PARTIAL MEDIAL MENISCECTOMY,DE LT KNEE ARTHROSCOPY PARTIAL MEDIAL MENISCECTOMY,DE left knee left knee INT LABS LEFT KNEE TEAR OF MEDIAL MENISCUS LFT KNEE / RX HERE Reason for Visit Osteoarthritis of le ft knee Osteoarthritis of left knee Synovial cyst of popliteal space [Poe], left knee Tear of medial meniscus of left knee Osteoarthritis of left knee Tear of medial meniscus of left knee Osteoarthritis of left knee Tear of medial meniscus of left knee Osteoarthritis of left knee Tear of medial meniscus of left knee Tear of medial meniscus of left knee Chief Complaint INT LABS LEFT KNEE TEAR OF MEDIAL MENISCUS LFT KNEE / RX HERE Reason for Visit Tear of medial menis cus of left knee Chief Complaint 1 Y FU FU/WANTS MAMM ORDER FLU EXPOSURE/FEVER/CONGESTION/COUGH SCREENING Reason for Visit Paroxysmal atrial fi brillation Essential (primary) hypertension Mixed hyperlipidemia Nonrheumatic aortic valve insufficiency Preventative health care Chief Complaint FU/WANTS MAMM ORDER FLU EXPOSURE/FEVER/CONGESTION/COUGH SCREENING SOB, fatigue: already on Eliquis, Flecainide PALPITATIONS KATHARINE TO READ Reason for Visit Preventative health care Fatigue Paroxysmal atrial fibrillation Dizziness Essential (primary) hypertension Mixed hyperlipidemia Nonrheumatic aortic valve insufficiency Palpitations Chief Complaint FU/WANTS MAMM ORDER FLU EXPOSURE/FEVER/CONGESTION/COUGH SCREENING SOB, fatigue: already on Eliquis, Flecainide PALPITATIONS KATHARINE TO READ DIZZINESS Amb Documentation ARRTHTHMIA Amb Documentation Reason for Visit Preventative health care Fatigue Paroxysmal atrial fibrillation Dizziness Essential (primary) hypertension Mixed hyperlipidemia Nonrheumatic aortic valve insufficiency Palpitations Chief Complaint Admit Date INT LAB ORDERS March 24, 2025 7:38a m Chief Complaint Admit Date INT LAB ORDERS March 24, 2025 7:38a m 1 Y FU April 26, 2025 12:56 pm E-ORDER April 26, 2025 1:25p m Reason for Visit Admit Date Dyspnea on exertion April 26, 2025 12:56 pm Paroxysmal atrial fibrillation April 26, 2025 12:56pm Mixed hyperlipidemia April 26, 2025 12:5 6pm Palpitations April 26, 2025 12:56 pm Reason for Referral Specialty Diagnoses / Procedures Referred By Arnie alvarez Referred To Contact Home Health Services Diagnoses Arthritis of left knee Keshawn Stevenson, SOFTWARE SECURITY CONSULTANT-DRAWER MAKER [address] [place] [address] Referral ID Status Reason Start Date Expiration Date Visits Requested Visits Authorized [id number] Pending Review Specialty Services Required 04/04/2024 04/04/[phone] Additional Source Comments INFORMATION SOURCE (unrecogn ized section and content) DATE CREATED AUTHOR 05/23/2020 [facility] DATE CREATED AUTHOR AUTHOR'S ORGANIZ ATION 03/26/2024 [facility] DATE CREATED AUTHOR AUTHOR'S ORGANIZ ATION 04/07/[address] [facility] DATE CREATED AUTHOR AUTHOR'S ORGANIZ ATION 04/26/2025 [facility] Goals (unrecognized section and content) Goals may be documented in a n alternate sectionGoals may be documented in an alternate sectionGoals may be documented in an alternate sectionGoals may be documented in an alternate sectionGoals may be documented in an alternate sectionGoals may be documented in an alternate sectionGoals may be documented in an alternate sectionGoals may be documented in an alternate sectionGoals may be documented in an alternate sectionGoals may be documented in an alternate sectionGoals may be documented in an alternate sectionGoals may be documented in an alternate sectionGoals may be documented in an alternate section Care Teams (unrecognized sec tion and content) Team Status: Active Member Role Status Dates Dr. Yennifer Johnson MD Family Provider Active Dr. Yennifer Johnson MD Primary Care Provider Active Team Status: Inactive Member Role Status Dates Dr. Yennifer Johnson MD Primary Care Provider, Refer ring Provider Active ELOISE Chow Attending Provider Active Team Status: Inactive Member Role Status Dates Dr. Yennifer Johnson MD Primary Care Provider, Refer ring Provider Active Nate Rubio MD Attending Provider Active Team Status: Inactive Member Role Status Dates Dr. Yennifer Johnson MD Primary Care Provider Active Dr. Imtiaz Mccracken MD Attending Provider Active Team Status: Inactive Member Role Status Dates Dr. Yennifer Johnson MD Primary Care Provider, Atten ding Provider Active Team Status: Inactive Member Role Status Dates Dr. Yennifer Johnson MD Primary Care Provider Active ELOISE Chow Attending Provider, Referring Pro vider Active Team Status: Inactive Member Role Status Dates Dr. Yennifer Johnson MD Primary Care Provider Active Dr. Cyrus Lopez MD Attending Provider Active Team Status: Inactive Member Role Status Dates Dr. Yennifer Johnson MD Primary Care Provider Active Nate Rubio MD Attending Provider, Referring Prov ider Active Team Status: Active Member Role Status Dates Dr. Yennifer Johnson MD Primary Care Provider Active Nate Rubio MD Attending Provider, Referring Provider, Other Provider Active Team Status: Active Member Role Status Dates Dr. Yennifer Johnson MD Primary Care Provider Active Nate Rubio MD Attending Provider Active Team Status: Inactive Member Role Status Dates Dr. Yennifer Johnson MD Primary Care Provider Active Dr. Cyrus Lopez MD Attending Provider, Referring Provider Active Karlie Johnson ENGINE BUILDER, ENGINE BUILDER-C Other Provider Active Team Status: Inactive Member Role Status Dates Dr. Yennifer Johnson MD Primary Care Provider Active Nate Rubio MD Attending Provider Active Team Status: Inactive Member Role Status Dates Dr. Yennifer Johnson MD Primary Care Provider Active Karlie Johnson ENGINE BUILDER, ENGINE BUILDER-C Attending Provider, Referring P rovider Active Team Status: Inactive Member Role Status Dates Dr. Yennifer Johnson MD Primary Care Provider, Refer ring Provider Active Karlie Johnson ENGINE BUILDER, ENGINE BUILDER-C Attending Provider Active Team Status: Inactive Member Role Status Dates Dr. Yennifer Johnson MD Primary Care P rovider, Attending Provider, Referring Provider Active Team Status: Inactive Member Role Status Dates Dr. Yennifer Johnson MD Primary Care Provider, Refer ring Provider Active Sarabjit Ambriz PA, PA Attending Provider Active Team Status: Active Member Role Status Dates Dr. Yennifer Johnson MD Primary Care Provider Active Karlie Johnson ENGINE BUILDER, ENGINE BUILDER-C Attending Provider, Referring P rovider Active Team Status: Active Member Role Status Dates Dr. Yennifer Johnson MD Primary Care Provider Active Dr. Salazar Sim MD Attending Provider Active Karlie Johnson ENGINE BUILDER, ENGINE BUILDER-C Referring Provider Active Team Status: Active Member Role Status Dates Dr. Yennifer Johnson MD Primary Care Provider Active Kralie Johnson ENGINE BUILDER, ENGINE BUILDER-C Attending Provider Active Team Status: Active Member Role Status Dates Dr. Yennifer Johnson MD Primary Care Provider Active Dr. Imtiaz Mccracken MD Attending Provider Active Team Status: Inactive Member Role Status Dates Dr. Yennifer Johnson MD Primary Care Provider Active Start: March 24, 2025 End: March 24, 2025 Larry Rodriguez ENGINE BUILDER, ENGINE BUILDER-C Attending Provider Active S tart: March 24, 2025 End: March 24, 2025 Larry Rodriguez ENGINE BUILDER, ENGINE BUILDER-C Referring Provider Active S tart: March 24, 2025 End: March 24, 2025 Team Status: Active Member Role/Relationship Status Dates Dr. Yennifer Johnson MD Family Provider Active Dr. Yennifer Johnson MD Primary Care Provider Active Team Status: Inactive Member Role/Relationship Status Dates Dr. Yennifer Johnson MD Primary Care Provider Active Start: March 24, 2025 End: March 24, 2025 Larry Rodriguez ENGINE BUILDER, ENGINE BUILDER-C Attending Provider Active S tart: March 24, 2025 End: March 24, 2025 Larry Rodriguez ENGINE BUILDER, ENGINE BUILDER-C Referring Provider Active S tart: March 24, 2025 End: March 24, 2025 Team Status: Inactive Member Role/Relationship Status Dates Dr. Yennifer Johnson MD Primary Care Provider Active Start: April 26, 2025 End: April 26, 2025 Dr. Yennifer Johnson MD Referring Provider Active Start: April 26, 2025 End: April 26, 2025 Karlie Johnson ENGINE BUILDER, ENGINE BUILDER-C Attending Provider Active Start: April 26, 2025 End: April 26, 2025 Team Status: Active Member Role/Relationship Status Dates Dr. Yennifer Johnson MD Primary Care Provider Active Start: April 26, 2025 Karlie Johnson NP, ENGINE BUILDER-C Attending Provider Active Start: April 26, 2025 Karlie Johnson NP, ENGINE BUILDER-C Referring Provider Active Start: April 26, 2025 Reason for Visit (unrecogniz ed section and content) Specialty Diagnoses / Procedures Referred By Arnie alvarez Referred To Contact Diagnoses Primary osteoarthritis of left knee LEFT KNEE OSTEOARTHRITIS Procedures FL ARTHRP KNE CONDYLE&PLATU MEDIAL&LAT COMPARTMENTS Arthroplasty Resurfacing Total Knee Tin West MD [address] [facility] [address] [place] [address] [place] [address] [place] [address] Referral ID Status Reason Start Date Expiration Date Visits Re quested Visits Authorized [id number] 1 1 Scheduled Active and Recently Administ ered Medications (unrecognized section and content) Medication Order 04/02/2024 04/03/2024 04/04/2024 acetaminophen (Tylenol) tablet 1,000 mg 1,000 mg, oral, Every 6 hours, First dose on Wed04/03/24 at 1300, Phase II/On Unit, If ordered PRN for pain, nurse is permitted to administer this medication for higher pain scores based on patient preference? Yes 1308 (Given - Provider: Joanne Shetty RN - Comment: scheduled q 6)1830 (Given - Provider: Pao Foley RN) 0023 (Given - Provider: Alyssa Graham RN)0649 (Given - Provider: Alyssa Graham RN)1352 (Given - Provider: Pao Foley RN)1900 (Due) acetaminophen (Tylenol) tablet 650 mg (COMPLETED) 650 mg, oral, Once, On Wed04/03/24 at 0645, For 1 dose, Preprocedure, If ordered PRN for pain, nurse is permitted to administer this medication for higher pain scores based on patient preference? Yes 0647 (Given - Provider: Arleth Ramon RN) apixaban (Eliquis) tablet 2.5 mg 2.5 mg, oral, Every 12 hours scheduled, First dose on Wed04/03/24 at 1800, Phase II/On Unit 1757 (Given - Provider: Pao Foley RN) 0850 (Given - Provider: Pao Foley RN)2100 (Due) ceFAZolin in dextrose (iso-os) (Ancef) IVPB 2 g (COMPLETED) 2 g, intravenous, Administer over 30 Minutes, Once, On Wed04/03/24 at 0645, For 1 dose, Preprocedure, Administer within 60 minutes prior to incision. premix bag, Dosing of this medication varies based on severity of illness. Does this patient have sepsis or concern for sepsis (probable or documented infection plus systemic manifestations of infection)? No, Suspected Indication (Select all that apply): Surgical Prophylaxis, Indications: Surgical Prophylaxis 0809 (Given - Provider: Nikki Alex APRN-PROOF TESTER) ceFAZolin in dextrose (iso-os) (Ancef) IVPB 2 g (COMPLETED) 2 g, intravenous, Administer over 30 Minutes, Every 8 hours, First dose on Wed04/03/24 at 1600, For 2 doses, Phase II/On Unit, Start 8 hours after pre-op dose given. premix bag, Dosing of this medication varies based on severity of illness. Does this patient have sepsis or concern for sepsis (probable or documented infection plus systemic manifestations of infection)? No, Suspected Indication (Select all that apply): Surgical Prophylaxis, Indications: Surgical Prophylaxis 1521 (New Bag - Provider: Pao Foley RN)1551 (Stopped - Provider: Pao Foley RN) 0023 (New Bag - Provider: Alyssa Graham RN)0053 (Stopped - Provider: Alyssa Graham RN) cefuroxime (Ceftin) tablet 500 mg 500 mg, oral, 2 times daily, First dose on Wed04/04/24 at 1230, For 5 days, Suspected Indication (Select all that apply): Urinary Tract Infection, Type of Therapy: Empiric, Type of Urinary Tract Infection: Uncomplicated, Indications: Urinary Tract Infection 1352 (Given - Provid er: Pao Foley RN)2100 (Due) celecoxib (CeleBREX) capsule 400 mg (COMPLETED) 400 mg, oral, Once, On Wed04/03/24 at 0645, For 1 dose, Preprocedure, Capsules may be opened and sprinkled on a spoonful of cold or room temperature applesauce. 0647 (Given - Provider: Arleth Ramon RN) dilTIAZem CD (Cardizem CD) 24 hr capsule 240 mg 240 mg, oral, Daily, First dose on Wed04/03/24 at 1230, Phase II/On Unit, Do not crush, chew, or split. 1230 (Not Given - Provider: Joanne Shetty RN - Reason: Patient/family refused - Comment: pt took prior to admission) 0850 (Given - Provider: Pao Foley RN) docusate sodium (Colace) capsule 100 mg 100 mg, oral, 2 times daily, First dose on Wed04/03/24 at 1230, Phase II/On Unit 1311 (Given - Provider: Joanne Shetty RN)2152 (Given - Provider: Alyssa Graham RN) 0850 (Given - Provider: Pao Foley RN)2100 (Due) ezetimibe (Zetia) tablet 10 mg 10 mg, oral, Daily, First dose on Wed04/03/24 at 1230, Phase II/On Unit 1307 (Given - Provider: Joanne Shetty RN) 0850 (Given - Provider: Pao Foley RN) fentaNYL PF (Sublimaze) injection 50 mcg (COMPLETED) 50 mcg, intravenous, Once, On Wed04/03/24 at 0745, For 1 dose, Preprocedure, For nerve block 0750 (Given - Provider: Cynthia Lopez, RN - Comment: PREOP NERVE BLOCK) flecainide (Tambocor) tablet 100 mg 100 mg, oral, Every 12 hours, First dose on Wed04/03/24 at 2100, Phase II/On Unit 2152 (Given - Provider: Alyssa Graham RN) 0850 (Given - Provider: Pao Foley RN)2100 (Due) gemfibrozil (Lopid) tablet 600 mg 600 mg, oral, 2 times daily, First dose on Wed04/03/24 at 1230, Phase II/On Unit 1230 (Not Given - Provider: Joanne Shetty RN - Reason: Patient/family refused - Comment: pt took in the am)2152 (Given - Provider: Alyssa Graham RN) 0850 (Given - Provider: Pao Foley RN)2100 (Due) midazolam (Versed) injection 2 mg (COMPLETED) 2 mg, intravenous, Once, On Wed04/03/24 at 0745, For 1 dose, Preprocedure, For Nerve block 0751 (Given - Provider: Cynthia Lopez, RN - Comment: PREOP NERVE BLOCK) multivitamin 1 tablet 1 tablet, oral, Daily, First dose on Wed04/03/24 at 1230, Phase II/On Unit 1310 (Given - Provider: Joanne Shetty RN) 0850 (Given - Provider: Pao Foley RN) polyethylene glycol (Glycolax, Miralax) packet 17 g 17 g, oral, Daily, First dose on Wed04/03/24 at 1230, Phase II/On Unit 1307 (Given - Provider: Joanne Shetty RN) 0850 (Given - Provider: Pao Foley RN) povidone-iodine 5 % kit kit (COMPLETED) Topical, Once, On Wed04/03/24 at 0645, For 1 dose, Preprocedure 0649 (Given - Provider: Arleth Ramon RN) pregabalin (Lyrica) capsule 75 mg (COMPLETED) 75 mg, oral, Once, On Wed04/03/24 at 0645, For 1 dose, Preprocedure 0648 (Given - Provider: Arleth Ramon RN) Continuous Medication Order 04/02/2024 04/03/2024 04/04/2024 lactated Ringer's infusion (CANCELED) 100 mL/hr, intravenous, Continuous, Starting on Wed04/03/24 at 0645, Preprocedure 0705 (New Bag - Provider: Arleth Ramon RN)0759 (Continued by Anesthesia - Provider: Nikki Alex APRN-PROOF TESTER)0915 (New Bag - Provider: Nikki Alex APRN-PROOF TESTER)1212 (Stopped - Provider: Pao Foley RN) lactated Ringer's infusion 125 mL/hr, intravenous, Continuous, Starting on Wed04/03/24 at 1230, For 24 hours, Phase II/On Unit 1216 (New Bag - Provider: Joanne Shetty RN) oxygen (O2) therapy 2 L/min, inhalation, Continuous, Starting on Wed04/03/24 at 1230, Phase II/On Unit, Titrate supplemental oxygen to maintain oxygen saturation greater than or equal to 92%., Device: Nasal Cannula, Rate in liters per minute: 2 LPM, Keep O2 Sat Above: 92% 1230 (Start - Provider: Héctor Simnetal, CONE TENDER) PRN Medication Order 04/02/2024 04/03/2024 04/04/2024 fentaNYL PF (Sublimaze) injection 25 mcg (CANCELED) 25 mcg, intravenous, Every 5 min PRN, pain moderate (4-6), first line, Starting on Wed04/03/24 at 0959, For 6 hours, Recovery (only), Max total of 200 micrograms regardless of dose., If ordered PRN for pain, nurse is permitted to administer this medication for higher pain scores based on patient preference? Yes 1027 (Given - Provider: Odilia Desai RN)1032 (Given - Provider: Odilia Desai RN) ketorolac (Toradol) injection 15 mg 15 mg, intravenous, Every 6 hours PRN, pain breakthrough, Starting on Wed04/03/24 at 1212, For 5 days, Phase II/On Unit 2202 (Given - Provider: Alyssa Graham, ANNI) 0607 (Given - Provider: Alyssa Graham, ANNI) ondansetron (Zofran) injection 4 mg 4 mg, intravenous, Every 8 hours PRN, nausea/vomiting, first line, Starting on Wed04/03/24 at 1212, Phase II/On Unit, When administering via IV Push, administer over 3-5 minutes. FOR RECORDS PERTAINING TO PATIENTS WHO ARE [...] BE BASED ON THE PRIMARY CLINICAL RECORDS. Printed Piece [facility]. provides no warranty or guarantee of the accuracy or completeness of information in this document.
--- OUTSIDE RECORDS SUMMARY | 2025-04-26 22:59 | XMS RPT_ITS | CCD ---
Author Organization [facility] Providers Care Geophysical Drafter Name Role Phone Dr. Yennifer Johnson Primary Care Provider [phone] Dr. Yennifer Johnson Attending Provider [phone] Dr. Yennifer Johnson Referring Provider [phone] Alex DEPUTY HARBORMASTER, DEPUTY HARBORMASTER-C Karlie Attending Provider Dr. Cyrus Lopez Attending [...] Dr. Yennifer Johnson Referring Provider [phone] Alex DEPUTY HARBORMASTER, DEPUTY HARBORMASTER-C Karlie Attending Provider Dr. Yennifer Johnson Attending Provider [phone] Pb NAVAS PA Sarabjit Nelson Attending Provider Dr. Yennifer Johnson Primary Care Provider [phone] Dr. Yennifer Johnson Referring Provider [phone] Alex MAYER, DEPUTY HARBORMASTER-C Karlie Attending Provider Dr. Yennifer Johnson Primary Care Provider [phone] Dr. Yennifer Johnson Attending Provider [phone] Dr. Yennifer Johnson Referring Provider [phone] Pb NAVAS, PA Sarabjit Nelson Attending Provider Alex MAYER, DEPUTY HARBORMASTER-C Karlie Attending Provider Dr. Salazar Sim Attending Provider [phone] Alex MAYER, DEPUTY HARBORMASTER-C Karlie Referring Provider Dr. Imtiaz Mccracken Attending Provider [phone] Unavailable Primary Care Provider Unavailabl e [facility] Admitting Unavailable [facility] Attending Unavailable Dr. Yennifer Johnson MD Primary Care Provider Larry Taylor Attending Provider [phone] Larry Taylor Referring Provider [phone] Dr. Yennifer Johnsno MD Referring Provider [phone] Alex [place] Attending Provider [phone] Alex MAYER-C, Karlie Referring Provider [phone] Oleghe, Efewongbe Attending Unavailable Oleghe, Efewongbe Referring Unavailable Oleghe, Efewongbe Primary Care Unavailable Oleghe, Efewongbe Referring Unavailable Oleghe, Efewongbe Primary Care Unavailable Oleghe, Efewongbe Attending Unavailable Alex DEPUTY HARBORMASTER, Karlie Attending Unavailable Alex DEPUTY HARBORMASTER, Karlie Referring Unavailable Oleghe, Efewongbe Primary Care Unavailable Oleghe, Efewongbe Primary Care Unavailable [place] Attending Unavailable [place] Referring Unavailable Oleghe, Efewongbe Attending Unavailable Oleghe, Efewongbe Referring Unavailable Oleghe, Efewongbe Primary Care Unavailable Oleghe, Efewongbe Referring Unavailable Alex DEPUTY HARBORMASTER, Karlie Attending Unavailable Oleghe, Efewongbe Primary Care Unavailable Oleghe, Efewongbe Primary Care Unavailable Roof DEPUTY HARBORMASTER, Larry Tejeda Attending Unavailable Roof DEPUTY HARBORMASTER, Larry H Referring Unavailable Alex DEPUTY HARBORMASTER, Karlie Attending Unavailable Alex DEPUTY HARBORMASTER, Karlie Referring Unavailable Oleghe, Efewongbe Primary Care Unavailable Allergies Allergy Classification Reported Allergen(s) Allergy Type Date of Onset Reaction(s) Facility (17 sources) Adhesive agent; Translations: [adhesive] Propensity to adverse reactions 2 Other [facility] Comment on above: FROM ELECTRODE ADHES AMANDA (16 sources) Bee pollen Drug Allergy 1 Anaphylaxis [facility] (19 sources) Codeine; Translations: [CODEINE] Drug Allergy 5 Anaphylaxis [facility] (19 sources) HYDROmorphone; Translations: [HYDROMORPHONE] Drug Allergy 9 Anaphylaxis [facility] Comment on above: DIZZINESS, DRY MOUTH (19 sources) Niacin; Translations: [NIACIN] Drug Allergy 7 Hives, Rash, Swelling [facility] (17 sources) oxyCODONE; Translations: [oxycodone HCl] Drug Allergy 1 Anaphylaxis [facility] (17 sources) Propoxyphene; Translations: [propoxyphene napsylate] Drug Allergy 1 Angioedema [facility] (19 sources) Simvastatin; Translations: [SIMVASTATIN] Drug Allergy 1 Other [facility] (16 sources) dog dander Allergy to substance 2 Swelling [facility] (17 sources) Opioids - Morphine Analogues; Translations: [Opioids - Morphine Analogues] Allergy to substance 1 Anaphylaxis [facility] (17 sources) perfume; Translations: [perfume] Allergy to substance 1 swelling [facility] (17 sources) venom-honey bee Allergy to substance 6 Anaphylaxis [facility] (3 sources) atorvastatin; Translations: [ATORVASTATIN CALCIUM] Drug Allergy [address] [facility] (3 sources) Grass pollen; Translations: [GRASS POLLEN] Propensity to adverse reactions to drug (disorder) [address] [facility] (3 sources) house dust allergenic extract; Translations: [HOUSE DUST] Drug Allergy [address] [facility] (3 sources) Mold Extract; Translations: [MOLD] Drug Allergy [address] [facility] (3 sources) Morphine; Translations: [MORPHINE] Drug Allergy 9 Cough, Dizziness, Headache, Itching, Other, Palpitations, Shortness of breath [facility] (3 sources) oxyCODONE; Translations: [OXYCODONE] Drug Allergy 4 Cough, Dizziness, Headache, Itching, Other, Rash, Shortness of breath, Swelling [facility] (3 sources) Propoxyphene; Translations: [PROPOXYPHENE] Drug Allergy 4 Shortness of breath, Cough, Dizziness [facility] (3 sources) rosuvastatin; Translations: [ROSUVASTATIN CALCIUM] Drug Allergy 7 Other [facility] Repository (3 sources) wasp venom; Translations: [WASP VENOM] Propensity to adverse reactions to drug (disorder) [address] [facility] (2 sources) BEE VENOM PROTEIN (HONEY BEE); Translations: [BEE VENOM PROTEIN (HONEY BEE)] Propensity to adverse reactions to drug (disorder) 6 [facility] (1 source) ALLERGIES NOT ON FILE; Translations: [ALLERGIES NOT ON FILE] Propensity to adverse reactions (disorder) [place] [address] Repository (2 sources) Ketorolac Drug Allergy 4 Nausea [facility] Comment on above: swelling in face (1 source) Bee pollen Drug allergy (disorder) 5 [facility] Repository (1 source) Codeine Drug Allergy 5 [facility] Repository (1 source) HYDROmorphone Drug Allergy 5 [facility] Repository (1 source) Ketorolac Drug Allergy 5 [facility] Repository (1 source) Niacin Drug Allergy 5 [facility] Repository (1 source) Simvastatin Drug Allergy 5 [facility] Repository (1 source) venom-honey bee Drug allergy (disorder) 5 [facility] Repository (1 source) dog dander Drug allergy (disorder) 5 [facility] Repository Medications Current Medications Medication Drug [...] O2 Sat Above: 92% polyethylene glycol 3350 77439 mg powder for oral solution (1 source) [...] 18, 2018 3:55pm May 12, 2018 2:10pm [id number] 0.3 ml EPINEPHrine 1 mg/ml auto-injector (20 [...] take 1 tablet by mouth once daily multivitamin,ld-fbaw-awtgocig tablet Discontinued 1 TABLET PO daily September 30, 2017 1:00am January 10, 2018 1:43pm [place]-3 Fatty Acids (14 sources) Start: 01-10-2018 End: 05-24-2018 take 1000 mg by mouth once daily [place]-3 Fatty Acids Discontinued 1000 MG PO daily January 09, 2018 11:00pm May 24, 2018 1:40pm Start: 01-10-2018 End: 05-24-2018 take 1000 mg by mouth once daily [place]-3 Fatty Acids Discontinued 1000 MG PO daily January 10, 2018 12:00am May 24, 2018 2:40pm Gas[place]-3 Fatty Acids 1,000 mg capsule (2 sources) Start: 01-10-2018 End: 05-24-2018 take 1 capsule by mouth once daily Gasquet-3 Fatty Acids 1,000 mg capsule Discontinued 1000 [...] above: 2015 and 05/26/2018 vladimir Infante @ [facility]: normal coronaries Results Test Name Value Interpretation Reference Range Facility Absolute lymphocyte countOrd ered By: Karlie Johnson on 04-26-2025 Lymphocytes Auto (Unsp spec) [#/Vol] 1.90 10*3/uL 0.83-4.51 [facility] Absolute neutrophil countOrd ered By: Karlie Johnson on 04-26-2025 Neutrophils (Bld) [#/Vol] 7.6 10*3/uL 2.0-7.7 [facility] Anion gap in Serum or Plasma Ordered By: Karlie Johnson on 04-26-2025 Anion gap [Moles/Vol] 11 mmol/L 5-15 [facility] Automated lymphocyte count a s percentage of total leukocytesOrdered By: Karlie Johnson on 04-26-2025 Lymphocytes/100 WBC Auto (Unsp spec) 17.5 % Low 19-41 [facility] BUN/creatinine ratioOrdered By: Karlie Johnson on 04-26-2025 Urea nitrogen/Creatinine [Mass ratio] 21.2 mg/mg High 10-20 [facility] Basic Metabolic Profile (BMP )on 04-26-2025 BUN/CRE 21.2 RATIO High 10-20 [facility] Comment on above: Performed By: #### L 100.0100, L500.2500, L501.5200, L501.9520, L503.7505 ####[facility] [address] [place], [address] Calcium [Mass/Vol] 9.8 mg/dL Normal 7.6-11.0 [facility] Comment on above: Performed By: #### L 100.0100, L500.2500, L501.5200, L501.9520, L503.7505 ####[facility] [address] [place], [address] Chloride [Moles/Vol] 102 mmol/L Normal 98-108 [facility] Comment on above: Performed By: #### L 100.0100, L500.2500, L501.5200, L501.9520, L503.7505 ####[facility] [address] [place], [address] CO2 [Moles/Vol] 26.5 mmol/L Normal 21.0-32.0 [facility] Comment on above: Performed By: #### L 100.0100, L500.2500, L501.5200, L501.9520, L503.7505 ####[facility] [address] [place], [address] Creatinine [Mass/Vol] 0.87 mg/dL Normal 0.70-1.20 [facility] Comment on above: Performed By: #### L 100.0100, L500.2500, L501.5200, L501.9520, L503.7505 ####[facility] [address] [place], [address] GAP 11 Normal 5-15 [facility] Comment on above: Performed By: #### L 100.0100, L500.2500, L501.5200, L501.9520, L503.7505 ####[facility] [address] [place], [address] GFR/1.73 sq M.predicted among non-blacks MDRD (S/P/Bld) [Vol rate/Area] 74 mL/min/{1.73_m2} Normal >60 [facility] Comment on above: Result Comment: mL/m in/1.73m2 CKD-EPI Creatinine Equation (2020) Performed By: #### L 100.0100, L500.2500, L501.5200, L501.9520, L503.7505 ####[facility] [address] [place], [address] Glucose [Mass/Vol] 97 mg/dL Normal 70-99 [facility] Comment on above: Performed By: #### L 100.0100, L500.2500, L501.5200, L501.9520, L503.7505 ####[facility] [address] [place], [address] Potassium [Moles/Vol] 3.7 mmol/L Normal 3.3-5.1 [facility] Comment on above: Performed By: #### L 100.0100, L500.2500, L501.5200, L501.9520, L503.7505 ####[facility] [address] [place], [address] Sodium [Moles/Vol] 139 mmol/L Normal 133-145 [facility] Comment on above: Performed By: #### L 100.0100, L500.2500, L501.5200, L501.9520, L503.7505 ####[facility] [address] [place], [address] Urea nitrogen [Mass/Vol] 18 mg/dL Normal 4-19 [facility] Comment on above: Performed By: #### L 100.0100, L500.2500, L501.5200, L501.9520, L503.7505 ####[facility] [address] [place], [address] Basophil percentageOrdered B y: Karlie Johnson on 04-26-2024 Basophils/100 WBC (Bld) 0.7 % 0-1 [facility] CBC W/Diff, Automatedon Absolute Lymph 1.90 X10 3/uL Normal 0.83-4.51 [facility] Comment on above: Performed By: #### L 100.0100, L500.2500, L501.5200, L501.9520, L503.7505 ####[facility] [address] [place], [address] Absolute Neut 7.6 X10 3/uL Normal 2.0-7.7 [facility] Comment on above: Performed By: #### L 100.0100, L500.2500, L501.5200, L501.9520, L503.7505 ####[facility] [address] [place], [address] Basophils/100 WBC (Bld) 0.7 % Normal 0-1 [facility] Comment on above: Performed By: #### L 100.0100, L500.2500, L501.5200, L501.9520, L503.7505 ####[facility] [address] [place], [address] Eosinophils/100 WBC (Bld) 2.2 % Normal 0-5 [facility] Comment on above: Performed By: #### L 100.0100, L500.2500, L501.5200, L501.9520, L503.7505 ####[facility] [address] [place], [address] Erythrocyte distribution width (RBC) [Ratio] 12.4 % Normal 11.6-14.6 [facility] Comment on above: Performed By: #### L 100.0100, L500.2500, L501.5200, L501.9520, L503.7505 ####[facility] [address] [place], [address] Hematocrit (Bld) [Volume fraction] 38.2 % Normal 37-47 [facility] Comment on above: Performed By: #### L 100.0100, L500.2500, L501.5200, L501.9520, L503.7505 ####[facility] [address] [place], [address] Hemoglobin (Bld) [Mass/Vol] 12.6 g/dL Normal 12.0-15.0 [facility] Comment on above: Performed By: #### L 100.0100, L500.2500, L501.5200, L501.9520, L503.7505 ####[facility] [address] [place], [address] IG% 0.600 Normal 0.0-0.9 [facility] Comment on above: Result Comment: IG% - Immature Granulocytes (promyelocytes, myelocytes and metamyelocytes) > 1% indicates that a LEFT SHIFT is Present. Performed By: #### L 100.0100, L500.2500, L501.5200, L501.9520, L503.7505 ####[facility] [address] [place], [address] Lymphocytes/100 WBC (Bld) 17.5 % Low 19-41 [facility] Comment on above: Performed By: #### L 100.0100, L500.2500, L501.5200, L501.9520, L503.7505 ####[facility] [address] [place], [address] MCH (RBC) [Entitic mass] 29.9 pg Normal 27.0-32.0 [facility] Comment on above: Performed By: #### L 100.0100, L500.2500, L501.5200, L501.9520, L503.7505 ####[facility] [address] [place], [address] MCHC (RBC) [Mass/Vol] 33.0 g/dL Normal 32-36 [facility] Comment on above: Performed By: #### L 100.0100, L500.2500, L501.5200, L501.9520, L503.7505 ####[facility] [address] [place], [address] MCV (RBC) [Entitic vol] 90.7 fL Normal 81-[address] [facility] Comment on above: Performed By: #### L 100.0100, L500.2500, L501.5200, L501.9520, L503.7505 ####[facility] [address] [place], [address] Monocytes/100 WBC (Bld) 9.1 % Normal 0-10 [facility] Comment on above: Performed By: #### L 100.0100, L500.2500, L501.5200, L501.9520, L503.7505 ####[facility] [address] [place], [address] Neutrophils/100 WBC (Bld) 69.9 % Normal 47-70 [facility] Comment on above: Performed By: #### L 100.0100, L500.2500, L501.5200, L501.9520, L503.7505 ####[facility] [address] [place], [address] Nucleated RBC (Bld) [#/Vol] 0 10*3/uL Normal 0-5 [facility] Comment on above: Performed By: #### L 100.0100, L500.2500, L501.5200, L501.9520, L503.7505 ####[facility] [address] [place], [address] Platelet mean volume (Bld) [Entitic vol] 10.0 fL Normal 6.2-12.0 [facility] Comment on above: Performed By: #### L 100.0100, L500.2500, L501.5200, L501.9520, L503.7505 ####[facility] [address] [place], [address] Platelets (Bld) [#/Vol] 521 10*3/uL High 150-450 [facility] Comment on above: Performed By: #### L 100.0100, L500.2500, L501.5200, L501.9520, L503.7505 ####[facility] [address] [place], [address] RBC (Bld) [#/Vol] 4.21 10*6/uL Normal 4.2-5.4 [facility] Comment on above: Performed By: #### L 100.0100, L500.2500, L501.5200, L501.9520, L503.7505 ####[facility] [address] [place], [address] RDW SD 40.5 fl Normal 35.1-43.9 [facility] Comment on above: Performed By: #### L 100.0100, L500.2500, L501.5200, L501.9520, L503.7505 ####[facility] [address] [place], [address] WBC (Bld) [#/Vol] 10.9 10*3/uL Normal 4.4-11.0 [facility] Comment on above: Performed By: #### L 100.0100, L500.2500, L501.5200, L501.9520, L503.7505 ####[facility] [address] [place], [address] Carbon dioxide, total [Moles /volume] in Central venous bloodOrdered By: Karlie Johnson on 04-26-2025 CO2 [Moles/Vol] 26.5 mmol/L 21.0-32.0 [facility] Cardiology Visit Reporton Cardiology Visit Report [facility] 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 Normal [facility] Chloride assayOrdered By: Tarik Johnson on 04-26-2025 Chloride [Moles/Vol] 102 mmol/L 98-108 [facility] Eosinophil percentageOrdered By: Karlie Johnson on 04-26-2025 Eosinophils/100 WBC (Bld) 2.2 % 0-5 [facility] Erythrocyte distribution wid th ratioOrdered By: Karlie Johnson on 04-26-2025 Erythrocyte distribution width (RBC) [Ratio] 12.4 % 11.6-14.6 [facility] Erythrocyte distribution wid th standard deviationOrdered By: Karlie Johnson on 04-26-2025 Erythrocyte distribution width (RBC) [Ratio] 40.5 fl 35.1-43.9 [facility] Glomerular filtration rate ( GFR) estimation/1.73 sq m using serum, plasma, or whole bOrdered By: Karlie Johnson on 04-26-2025 GFR/1.73 sq M.predicted among non-blacks MDRD (S/P/Bld) [Vol rate/Area] 74 mL/min/{1.73_m2} >60 [facility] Comment on above: mL/min/1.73m2 CKD-EP I Creatinine Equation (2020) Hematocrit Auto (Bld) [Volum e fraction]Ordered By: Karlie Johnson on 04-26-2025 Hematocrit (Bld) [Volume fraction] 38.2 % 37-47 [facility] Hemoglobin measurementOrdere d By: Karlie Johnson on 04-26-2025 Hemoglobin (Bld) [Mass/Vol] 12.6 g/dL 12.0-15.0 [facility] Immature granulocytes/100 WB C Auto (Bld)Ordered By: Karlie Johnson on 04-26-2025 Immature granulocytes/100 WBC (Bld) 0.600 % 0.0-0.9 [facility] Comment on above: IG% - Immature Granu locytes (promyelocytes, myelocytes and metamyelocytes) > 1% indicates that a LEFT SHIFT is Present. L503.7505on 04-26-2025 proBNP < 36 Normal <=900 [facility] Comment on above: Result Comment: Hear t Failure Unlikely: < 300 pg/mL Heart Failure Likely < 50 Years: > 450 pg/mL 50-75 Years: > 900 pg/mL >75 Years: > 1800 pg/mL Performed By: #### L 100.0100, L500.2500, L501.5200, L501.9520, L503.7505 ####[facility] [address] [place], [address] MCV (mean corpuscular volume ) determinationOrdered By: Karlie Johnson on 04-26-2025 MCV (RBC) [Entitic vol] 90.7 fL 81-99 [facility] Magnesiumon 04-26-2025 Magnesium [Mass/Vol] 2.5 mg/dL High 1.5-2.2 [facility] Comment on above: Performed By: #### L 100.0100, L500.2500, L501.5200, L501.9520, L503.7505 ####[facility] [address] [place], [address] Magnesium measurement (mass/ volume)Ordered By: Karlie Johnson on 04-26-2025 Magnesium (Unsp spec) [Mass/Vol] 2.5 mg/dL High 1.5-2.2 [facility] Mean corpuscular hemoglobin (MCH) determinationOrdered By: Karlie Johnson on 04-26-2025 MCH (RBC) [Entitic mass] 29.9 pg 27.0-32.0 [facility] Mean corpuscular hemoglobin concentration (MCHC) determinationOrdered By: Karlie Johnson on 04-26-2025 MCHC (RBC) [Mass/Vol] 33.0 g/dL 32-36 [facility] Mean platelet volume determi nationOrdered By: Karlie Johnson on 04-26-2025 Platelet mean volume (Bld) [Entitic vol] 10.0 fL 6.2-12.0 [facility] Monocyte percentageOrdered B y: Karlie Johnson on 04-26-2025 Monocytes/100 WBC (Bld) 9.1 % 0-10 [facility] Natriuretic peptide.B prohor franklyn N-Terminal [Mass/volume] in Serum or PlasmaOrdered By: Karlie Johnson on 04-26-2025 Natriuretic peptide.B prohormone N-Terminal [Mass/Vol] < 36 pg/mL <900 [facility] Comment on above: Heart Failure Unlike ly: < 300 pg/mLHeart Failure Likely< 50 Years: > 450 pg/mL50-75 Years: > 900 pg/mL>75 Years: > 1800 pg/mL Neutrophil percentageOrdered By: Karlie Johnson on 04-26-2025 Neutrophils/100 WBC (Bld) 69.9 % 47-70 [facility] Nucleated red blood cell per centageOrdered By: Karlie Johnson on 04-26-2025 Nucleated RBC/100 WBC (Bld) [Ratio] 0 % 0-5 [facility] Platelet countOrdered By: Tarik Johnson on 04-26-2025 Platelets (Bld) [#/Vol] 521 10*3/uL High 150-450 [facility] Potassium measurement (mass/ volume)Ordered By: Karlie Johnson on 04-26-2025 Potassium (Unsp spec) [Mass/Vol] 3.7 mmol/L 3.3-5.1 [facility] RBC Auto (Bld) [#/Vol]Ordere d By: Karlie Johnson on 04-26-2025 RBC (Bld) [#/Vol] 4.21 10*6/uL 4.2-5.4 [facility] Serum creatinine measurement (mass/volume)Ordered By: Karlie Johnson on 04-26-2025 Creatinine [Mass/Vol] 0.87 mg/dL 0.70-1.20 [facility] Serum glucose measurement (m ass/volume)Ordered By: Karlie Johnson on 04-26-2025 Glucose [Mass/Vol] 97 mg/dL 70-99 [facility] Serum or plasma calcium kyree urement (mass/volume)Ordered By: Karlie Johnson on 04-26-2025 Calcium [Mass/Vol] 9.8 mg/dL 7.6-11.0 [facility] Serum or plasma urea nitroge n measurement (mass/volume)Ordered By: Karlie Johnson on 04-26-2025 Urea nitrogen [Mass/Vol] 18 mg/dL 4-19 [facility] Sodium levelOrdered By: Adali Johnson on 04-26-2025 Sodium [Moles/Vol] 139 mmol/L 133-145 [facility] TSH DL <= 0.005 mIU/L QnOrde red By: Karlie Johnson on 04-26-2025 TSH Qn 1.970 uIU/mL 0.300-4.200 [facility] Thyroid Stim Hormone (TSH)on 04-26-2025 TSH 1.970 uIU/mL Normal 0.300-4.200 [facility] Comment on above: Performed By: #### L 100.0100, L500.2500, L501.5200, L501.9520, L503.7505 ####[facility] [address] [place], [address] White blood cell (WBC) count Ordered By: Karlie Johnson on 04-26-2025 WBC (Bld) [#/Vol] 10.9 10*3/uL 4.4-11.0 [facility] Bilirubin directOrdered By: Larry Rodriguez on 03-24-2025 Bilirubin.direct [Mass/Vol] 0.14 mg/dL 0.00-0.30 [facility] Bilirubin, totalOrdered By: Larry Rodriguez on 03-24-2025 Bilirubin [Mass/Vol] 0.32 mg/dL 0.00-1.30 [facility] Calculated very low density lipoprotein (VLDL) cholesterol measurementOrdered By: Larry Rodriguez on 03-24-2025 Calculated very low density lipoprotein (VLDL) cholesterol measurement 22 mg/dL 5-40 [facility] LDL calc ser/plasOrdered By: Larry Rodriguez on 03-24-2025 Cholesterol in LDL [Mass/Vol] 98 mg/dL [facility] Comment on above: Fyzvaxshac=090-018 m g/dL & Higher Glcm=008 mg/dL or greater Laboratory - Chemistry and C hemistry - challengeOrdered By: Larry Rodriguez on 03-24-2025 AST [Catalytic activity/Vol] 18 U/L <32 [facility] Lipid Profileon 03-24-2025 CHOL:HDL 3.42 Normal [facility] Comment on above: Performed By: #### L 500.4100, L500.3400 ####[facility] [address] [facility] [place], [address] Cholesterol [Mass/Vol] 170 mg/dL Normal <=200 [facility] Comment on above: Result Comment: Chol esterol level, Desirable <200 mg/dL Borderline high cholesterol 200-239 mg/dL High cholesterol >=240 mg/dL Recommendations of the NCEP Adult Treatment Panel for the following risk-cutoff thresholds for the [place] population. Performed By: #### L 500.4100, L500.3400 ####[facility] [address] [place], [address] Cholesterol in HDL [Mass/Vol] 50 mg/dL Normal [facility] Comment on above: Result Comment: Alexandra onvandana Cholesterol Education Program (NCEP) guidelines: <40 mg/dL: Low HDL-cholesterol (major risk factor for CHD) >= 60 mg/dL: High HDL-cholesterol (negative risk factor for CHD) HDL-cholesterol is affected by a number of factors, e.g. smoking, exercise, hormones, sex and age. Performed By: #### L 500.4100, L500.3400 ####[facility] [address] [place], [address] Cholesterol in LDL [Mass/Vol] 98 mg/dL Normal [facility] Comment on above: Result Comment: Bord qumyfg=904-216 mg/dL Higher Lsam=858 mg/dL or greater Performed By: #### L 500.4100, L500.3400 ####[facility] [address] [place], [address] Cholesterol in VLDL [Mass/Vol] 22 mg/dL Normal 5-40 [facility] Comment on above: Performed By: #### L 500.4100, L500.3400 ####[facility] [address] [place], [address] Triglyceride [Mass/Vol] 111 mg/dL Normal [facility] Comment on above: Result Comment: The drugs N-Acetylcysteine and Metamizole may falsely depress this assay. Normal range: <150 mg/dL Borderline High: 150-199 mg/dL High: 200-499 mg/dL Very High: >500 mg/dL Performed By: #### L 500.4100, L500.3400 ####[facility] [address] [place], [address] Liver Profileon 03-24-2025 Albumin [Mass/Vol] 4.5 g/dL Normal 3.4-4.8 [facility] Comment on above: Performed By: #### L 500.4100, L500.3400 #### [facility] Laboratory [address] [place], [address] ALK PHOS 79 U/L Normal 35-104 [facility] Comment on above: Performed By: #### L 500.4100, L500.3400 #### [facility] [address] [place], [address] ALT [Catalytic activity/Vol] 16 U/L Normal <=34 [facility] Comment on above: Performed By: #### L 500.4100, L500.3400 #### [facility] [address] [place], [address] AST [Catalytic activity/Vol] 18 U/L Normal <=31 [facility] Comment on above: Performed By: #### L 500.4100, L500.3400 #### [facility] [address] [place], [address] Bilirubin [Mass/Vol] 0.32 mg/dL Normal 0.00-1.30 [facility] Comment on above: Performed By: #### L 500.4100, L500.3400 #### [facility] [address] [place], [address] Bilirubin.direct [Mass/Vol] 0.14 mg/dL Normal 0.00-0.30 [facility] Comment on above: Performed By: #### L 500.4100, L500.3400 #### [facility] [address] [place], [address] Globulin (S) [Mass/Vol] 2.9 g/dL Normal 2.2-4.[address] [facility] Comment on above: Performed By: #### L 500.4100, L500.3400 #### [facility] [address] [place], [address] T PROT 7.4 g/dL Normal 5.9-8.4 [facility] Comment on above: Performed By: #### L 500.4100, L500.3400 #### [facility] [address] [place], [address] Screening total cholesterol/ high density lipoprotein (HDL) cholesterol ratioOrdered By: Larry Rodriguez on 03-24-2025 Cholesterol.total/Jennifer sterol in HDL [Mass ratio] 3.42 {ratio} [facility] Serum globulin measurementOr dered By: Larry Rodriguez on 03-24-2025 Globulin (S) [Mass/Vol] 2.9 g/dL 2.2-4.2 [facility] Serum or plasma alanine castañeda otransferase (ALT) measurementOrdered By: Larry Rodriguez on 03-24-2025 ALT [Catalytic activity/Vol] 16 U/L <35 [facility] Serum or plasma albumin kyree urement (mass/volume)Ordered By: Larry Rodriguez on 03-24-2025 Albumin [Mass/Vol] 4.5 g/dL 3.4-4.8 [facility] Serum or plasma alkaline tevin sphatase measurementOrdered By: Larry Rodriguez on 03-24-2025 ALP [Catalytic activity/Vol] 79 U/L 35-104 [facility] Serum or plasma cholesterol in HDL measurement (mass/volume)Ordered By: Larry Rodriguez on 03-24-2025 Cholesterol in HDL [Mass/Vol] 50 mg/dL >40 [facility] Comment on above: National Cholesterol Education Program (NCEP) guidelines:<40 mg/dL: Low HDL-cholesterol (major risk factor for CHD)>= 60 mg/dL: High HDL-cholesterol (negative risk factor for CHD)HDL-cholesterol is affected by a number of factors, e.g. smoking, exercise, hormones, sex and age. Serum or plasma cholesterol measurement (mass/volume)Ordered By: Larry Rodriguez on 03-24-2025 Cholesterol [Mass/Vol] 170 mg/dL <201 [facility] Comment on above: Cholesterol level, D esirable <200 mg/dLBorderline high cholesterol 200-239 mg/dLHigh cholesterol >=240 mg/dLRecommendations of the NCEP Adult Treatment Panel for the following risk-cutoff thresholds for the [place] population. Total proteinOrdered By: Diallo Rodriguez on 03-24-2025 Protein [Mass/Vol] 7.4 g/dL 5.9-8.4 [facility] Triglycerides measurementOrd ered By: Larry Rodriguez on 03-24-2025 Triglyceride [Mass/Vol] 111 mg/dL <199 [facility] Comment on above: The drugs N-Acetylcy steine and Metamizole may falsely depress this assay. Normal range: <150 mg/dLBorderline High: 150-199 mg/dLHigh: 200-499 mg/dLVery High: >500 mg/dL Dexa Bone Density Studyon Dexa Bone Density Study [facility] Imaging Services [address] [place] [address] Dexa Bone Density Study MR#: [id number] Acct: [id number] Name: LEEANN CROCKETT Rep #: [id number] : 1960 F 64 From: Deandre Ricks MD PCP: Dr. Yennifer Johnson MD Status: [facility] Study: Dexa Bone Density Study Date of Exam: 10/24/24 Exam# [id number] Ordering Dr: Yennifer Johnson MD [id number] STUDY: DUAL ENERGY X-RAY ABSORPTIOMETRY / DXA [...] EST , CC: Dr. 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 Imaging Services [address] [place] [address] SCRN MAMM (CAD)W/DARRELL BILAT MR#: [id number] Acct: [id number] Name: LEEANN CROCKETT Rep #: [id number] : 1960 F 64 From: Deandre Ricks MD PCP: Dr. Yennifer Johnson MD Status: REG CLI Study: SCRN MAMM (CAD)W/DARRELL BILAT Date of Exam: 09/26 11/17 Exam# [id number] Ordering Dr: Yennifer Johnson MD [id number] MAMMOGRAPHY - BILATERAL SCREENING 3-D TOMOSYNTHESIS REASON [...] 19:33 EST Reading Location ID and State: [address] [place] [address] Tel , Service support , CC: Dr. 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, [address] Cholesterol in HDL [Mass/Vol] 71 mg/dL Normal [facility] Comment on above: Result Comment: The drugs N-Acetylcysteine and Metamizole may falsely depress this assay. Reference Range HDL <40 mg/dL Low HDL Cholesterol HDL >or= 60 mg/dL High HDL Cholesterol Performed By: #### L 500.4100, L500.3400 #### [facility] [address] [place], [address] Cholesterol in LDL [Mass/Vol] 102 mg/dL Normal 0-130 [facility] Comment on above: Performed By: #### L 500.4100, L500.3400 #### [facility] [address] [place], [address] Cholesterol in VLDL [Mass/Vol] 11 mg/dL Normal 5-40 [facility] Comment on above: Performed By: #### L 500.4100, L500.3400 #### [facility] [address] [place], [address] Triglyceride [Mass/Vol] 55 mg/dL Normal [facility] Comment on above: Result Comment: The drugs N-Acetylcysteine and Metamizole may falsely depress this assay. Serum Triglycerides Reference Interval Normal <150 mg/dL Borderline high 150 - 199 mg/dL High 200 - 499 mg/dL Very High > or = 500 mg/dL Performed By: #### L 500.4100, L500.3400 #### [facility] [address] [place], [address] Liver Profileon 10-21-2024 Albumin [Mass/Vol] 3.7 g/dL Normal 3.2-5.0 [facility] Comment on above: Performed By: #### L 500.4100, L500.3400 #### [facility] [address] [place], [address] ALK P 90 U/L Normal 45-117 [facility] Comment on above: Performed By: #### L 500.4100, L500.3400 #### [facility] [address] [place], [address] ALT [Catalytic activity/Vol] 17 U/L Normal 13-56 [facility] Comment on above: Performed By: #### L 500.4100, L500.3400 #### [facility] [address] [place], [address] AST [Catalytic activity/Vol] 14 U/L Low 15-37 [facility] Comment on above: Performed By: #### L 500.4100, L500.3400 #### [facility] [address] [place], [address] Bilirubin [Mass/Vol] 0.40 mg/dL Normal 0.20-1.00 [facility] Comment on above: Result Comment: For patients on eltrombopag therapy, use of Dimension Terral TBIL is not recommended. Performed By: #### L 500.4100, L500.3400 #### [facility] [address] [place], [address] Bilirubin.direct [Mass/Vol] 0.14 mg/dL Normal 0.00-0.30 [facility] Comment on above: Performed By: #### L 500.4100, L500.3400 #### [facility] [address] [place], [address] Globulin (S) [Mass/Vol] 4.0 g/dL Normal 2.2-4.[address] [facility] Comment on above: Performed By: #### L 500.4100, L500.3400 #### [facility] [address] [place], [address] T PROT 7.7 g/dL Normal 6.4-8.2 [facility] Comment on above: Performed By: #### L 500.4100, L500.3400 #### [facility] [address] [place], [address] Basic Metabolic Profile (BMP )on 07-10-2024 BUN/CRE 21.5 RATIO High 10-20 [facility] Comment on above: Performed By: #### L 100.0100, L500.2500 #### [facility] [address] [place], [address] CA,Total 9.5 mg/dL Normal 8.5-10.1 [facility] Comment on above: Performed By: #### L 100.0100, L500.2500 #### [facility] [address] [place], [address] Chloride [Moles/Vol] 105 mmol/L Normal 98-107 [facility] Comment on above: Performed By: #### L 100.0100, L500.2500 #### [facility] [address] [place], [address] CO2 [Moles/Vol] 27.0 mmol/L Normal 21.0-32.0 [facility] Comment on above: Performed By: #### L 100.0100, L500.2500 #### [facility] [address] [place], [address] Creatinine [Mass/Vol] 0.70 mg/dL Normal 0.55-1.02 [facility] Comment on above: Result Comment: The validity of the calculated GFR GFRAA in patients over 70 years has not been determined. Clinical correlation is essential. Performed By: #### L 100.0100, L500.2500 #### [facility] [address] [place], [address] EST GFR - AA 109 mL/min Normal >60 [facility] Comment on above: Result Comment: Afri can Indian GFR Calc Performed By: #### L 100.0100, L500.2500 #### [facility] [address] [place], [address] GAP 6 Normal 5-15 [facility] Comment on above: Performed By: #### L 100.0100, L500.2500 #### [facility] [address] [place], [address] GFR/1.73 sq M.predicted among non-blacks MDRD (S/P/Bld) [Vol rate/Area] 90 mL/min/{1.73_m2} Normal >60 [facility] Comment on above: Result Comment: Non- GFR Calc Performed By: #### L 100.0100, L500.2500 #### [facility] [address] [place], [address] Glucose [Mass/Vol] 106 mg/dL Normal 74-106 [facility] Comment on above: Result Comment: Fast ing Glucose result from 100 to 125 mg/dL suggests IMPAIRED HOMEOSTASIS per A.D.A. criteria. Performed By: #### L 100.0100, L500.2500 #### [facility] [address] [place], [address] Potassium [Moles/Vol] 3.9 mmol/L Normal 3.5-5.1 [facility] Comment on above: Performed By: #### L 100.0100, L500.2500 #### [facility] [address] [place], [address] Sodium [Moles/Vol] 138 mmol/L Normal 136-145 [facility] Comment on above: Performed By: #### L 100.0100, L500.2500 #### [facility] [address] [place], [address] Urea nitrogen [Mass/Vol] 15 mg/dL Normal 7-18 [facility] Comment on above: Performed By: #### L 100.0100, L500.2500 #### [facility] [address] [place], [address] CBC W/Diff, Automatedon 09- Absolute Lymph 1.74 X10 3/uL Normal 0.83-4.51 [facility] Comment on above: Performed By: #### L 100.0100, L500.2500 #### [facility] [address] [place], [address] Absolute Neut 7.0 X10 3/uL Normal 2.0-7.7 [facility] Comment on above: Performed By: #### L 100.0100, L500.2500 #### [facility] [address] [place], [address] Basophils/100 WBC (Bld) 0.5 % Normal 0-1 [facility] Comment on above: Performed By: #### L 100.0100, L500.2500 #### [facility] [address] [place], [address] Eosinophils/100 WBC (Bld) 1.8 % Normal 0-5 [facility] Comment on above: Performed By: #### L 100.0100, L500.2500 #### [facility] [address] [place], [address] Erythrocyte distribution width (RBC) [Ratio] 13.1 % Normal 11.6-14.6 [facility] Comment on above: Performed By: #### L 100.0100, L500.2500 #### [facility] [address] [place], [address] Hematocrit (Bld) [Volume fraction] 37.1 % Normal 37-47 [facility] Comment on above: Performed By: #### L 100.0100, L500.2500 #### [facility] [address] [place], [address] Hemoglobin (Bld) [Mass/Vol] 11.9 g/dL Low 12.0-15.0 [facility] Comment on above: Performed By: #### L 100.0100, L500.2500 #### [facility] [address] [place], [address] IG% 0.700 Normal 0.0-0.9 [facility] Comment on above: Result Comment: IG% - Immature Granulocytes (promyelocytes, myelocytes and metamyelocytes) > 1% indicates that a LEFT SHIFT is Present. Performed By: #### L 100.0100, L500.2500 #### [facility] [address] [place], [address] Lymphocytes/100 WBC (Bld) 17.7 % Low 19-41 [facility] Comment on above: Performed By: #### L 100.0100, L500.2500 #### [facility] [address] [place], [address] MCH (RBC) [Entitic mass] 28.5 pg Normal 27.0-32.0 [facility] Comment on above: Performed By: #### L 100.0100, L500.2500 #### [facility] [address] [place], [address] MCHC (RBC) [Mass/Vol] 32.1 g/dL Normal 32-36 [facility] Comment on above: Performed By: #### L 100.0100, L500.2500 #### [facility] [address] [place], [address] MCV (RBC) [Entitic vol] 88.8 fL Normal 81-[address] [facility] Comment on above: Performed By: #### L 100.0100, L500.2500 #### [facility] [address] [place], [address] Monocytes/100 WBC (Bld) 8.1 % Normal 0-[address] [facility] Comment on above: Performed By: #### L 100.0100, L500.2500 #### [facility] [address] [place], [address] Neutrophils/100 WBC (Bld) 71.2 % High 47-70 [facility] Comment on above: Performed By: #### L 100.0100, L500.2500 #### [facility] [address] [place], [address] Nucleated RBC (Bld) [#/Vol] 0 10*3/uL Normal 0-5 [facility] Comment on above: Performed By: #### L 100.0100, L500.2500 #### [facility] [address] [place], [address] Platelet mean volume (Bld) [Entitic vol] 9.9 fL Normal 6.2-12.0 [facility] Comment on above: Performed By: #### L 100.0100, L500.2500 #### [facility] [address] [place], [address] Platelets (Bld) [#/Vol] 449 10*3/uL Normal 150-450 [facility] Comment on above: Performed By: #### L 100.0100, L500.2500 #### [facility] [address] [place], [address] RBC (Bld) [#/Vol] 4.18 10*6/uL Low 4.2-5.4 [facility] Comment on above: Performed By: #### L 100.0100, L500.2500 #### [facility] [address] [place], [address] RDW SD 42.4 fl Normal 35.1-43.9 [facility] Comment on above: Performed By: #### L 100.0100, L500.2500 #### [facility] [address] [place], [address] WBC (Bld) [#/Vol] 9.8 10*3/uL Normal 4.4-11.0 [facility] Comment on above: Performed By: #### L 100.0100, L500.2500 #### [facility] [address] [place], [address] Internal Medicine Office Vis itoshannan 07-10-2024 Internal Medicine Office Visit [facility] [address] [place] [address] [place] [address] OFFICE VISIT Date of Service: 07/10/24 MR#: [id number] Acct: [id number] Name: LEEANN CROCKETT Rep #: [id number] : 1960 Provider: Dr. 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 Normal [facility] PT D/C Summary (1)on 024 PT D/C Summary (1) [facility] Physical Therapy [facility] [address] [place] [address] [address] [place] [address] / REHABILITATION SERVICES DISCHARGE SUMMARY MR#: [id number] Acct: [id number] Name: LEEANN CROCKETT Rep #: [id number] : 1960 64 From: Clayton Valles PT, [...] Progress: Goal Met Plan Plan: Discharge to [facility] D/C Information Discharge Comments: Rx goals achieved d/c sentence: If there are questions or concerns regarding this patient's physical therapy, please feel free to call me at [phone]. Thank you for the referral of this patient. Sincerely, Clayton Valles, PT, ATC Balance/Gait/Functiona l tests Balance/Special Test Scores Lower Extremity Functional Score: 64 Tug Test: <10 sec.=free mobile WOMAC Total Score: 31 WOMAC Percentage: 67.7100 Improvement % Improvement: 95 06/15/24 1629 CC: Tin West MD; Dr. Yennifer Johnson MD [facility] Signed Normal [facility] Re-Evaluation - PT (1)on Re-Evaluation - PT (1) [facility] Physical Therapy [facility] [address] [place] [address] [address] [place] [address] / REEVALUATION / MEDICARE RECERTIFICATION PHYSICAL THERAPY MR#: [id number] Acct: [id number] Name: LEEANN CROCKETT Rep #: [id number] : 1960 64 From: Meghan Lopez DPT [...] do not hesitate to contact me at [phone] by phone or if you have questions or concerns regarding this new plan of care! Sincerely, Meghan Lopez, DPT 05/18/24 1530 CC: Tin West MD; Dr. Yennifer Johnson MD ELR Signed For Medicare only, by signing this I certify the plan of care. Physicians Signature Date Normal [facility] Bacteria identifiedon 2023 Bacteria identified Cx Nom (U) Test: Urine Culture Specimen Source: Clean Catch/Voided Specimen Type: Urine Specimen Date: 04/04/2024 1057 Result Date: 04/05/2024 1613 Result Status: Final result Abnormal: No Resulting Lab: [facility] [address] [place] [address] CULTURE No growth Normal [facility] Comment on above: Performed By: #### 6 30-4 #### CONNOR Grant ([id number]) [facility] ([facility]) [address] [place] [address] Basic metabolic 2000 panelon 04-04-2024 Anion gap [Moles/Vol] 10 mmol/L NINF - 19 mmol/L [facility] Calcium [Mass/Vol] 8.7 mg/dL 8.5 - 10. 4 mg/dL [facility] Chloride [Moles/Vol] 105 mmol/L 97 - 10 7 mmol/L [facility] CO2 [Moles/Vol] 24 mmol/L 24 - 31 mmol/L [facility] Creatinine [Mass/Vol] 0.70 mg/dL 0.40 - 1.60 mg/dL [facility] eGFR - PINF [facility] Comment on above: Calculations of perla mated GFR are performed using the 2020 CKD-EPI Study Refit equation without the race variable for the IDMS-Traceable creatinine methods. https://jasn.asnjournals.org/content/early/ASN.2020 581343 Glucose [Mass/Vol] 151 mg/dL High 65 - 99 mg/dL [facility] Interpretation and review of laboratory results Abnormal [facility] Potassium [Moles/Vol] 4.1 mmol/L 3.4 - 5.1 mmol/L [facility] Sodium [Moles/Vol] 139 mmol/L 133 - 145 mmol/L [facility] Urea nitrogen [Mass/Vol] 18 mg/dL 8 - 25 mg/dL [facility] Anion gap [Moles/Vol] 10 mmol/L Normal <=19 [facility] Comment on above: Performed By: #### 2 4321-2 #### RONAL Alvarez ([id number]) [facility] () [address] [place] [address] Calcium [Mass/Vol] 8.7 mg/dL Normal 8.5-10.4 [facility] Comment on above: Performed By: #### 2 4321-2 #### RONAL Alvarez (53375) [facility] () [address] [place] [address] Chloride [Moles/Vol] 105 mmol/L Normal 97-107 [facility] Comment on above: Performed By: #### 2 4321-2 #### RONAL Alvarez (27473) [facility] () [address] [place] [address] CO2 [Moles/Vol] 24 mmol/L Normal 24-31 [facility] Comment on above: Performed By: #### 2 4321-2 #### RONAL Alvarez (94666) [facility] () [address] [place] [address] Creatinine [Mass/Vol] 0.70 mg/dL Normal 0.40-1.60 [facility] Comment on above: Performed By: #### 2 4321-2 #### RONAL Alvarez ([id number]) [facility] () [address] [place] [address] GFR/1.73 sq M.predicted MDRD (S/P/Bld) [Vol rate/Area] mL/min/{1.73_m2} Normal >60 [facility] Comment on above: Result Comment: Calc ulations of estimated GFR are performed using the 2020 CKD-EPI Study Refit equation without the race variable for the IDMS-Traceable creatinine methods. https://jasn.asnjournals.org/content/early//ASN.2020 177528 Performed By: #### 2 4321-2 #### RONAL Alvarez ([id number]) [facility] () [address] [place] [address] Glucose [Mass/Vol] 151 mg/dL High 65-99 [facility] Comment on above: Performed By: #### 2 4321-2 #### RONAL Alvarez (35453) [facility] () [address] [place] [address] Potassium [Moles/Vol] 4.1 mmol/L Normal 3.4-5.1 [facility] Comment on above: Performed By: #### 2 4321-2 #### RONAL Alvarez (33497) [facility] () [address] [place] [address] Sodium [Moles/Vol] 139 mmol/L Normal 133-145 [facility] Comment on above: Performed By: #### 2 4321-2 #### RONAL Alvarez (74213) [facility] () [address] [place] [address] Urea nitrogen [Mass/Vol] 18 mg/dL Normal 8-25 [facility] Comment on above: Performed By: #### 2 4321-2 #### RONAL Alvarez (17476) [facility] () [address] [place] [address] CBC panel Auto (Bld)on 04-04 Erythrocyte distribution width (RBC) [Ratio] 12.0 % 11.5 - 14.5 % [facility] Hematocrit (Bld) [Volume fraction] 30.1 % Low 36.0 - 46.0 % [facility] Hemoglobin (Bld) [Mass/Vol] 10.5 g/dL Low 12.0 - 16.0 g/dL [facility] Interpretation and review of laboratory results Abnormal [facility] MCH (RBC) [Entitic mass] 29.9 pg 26.0 - 34.0 pg [facility] MCHC (RBC) [Mass/Vol] 34.9 g/dL 32.0 - 36.0 g/dL [facility] MCV (RBC) [Entitic vol] 86 fL 80 - 100 fL [facility] Nucleated RBC/100 WBC (Bld) [Ratio] 0.0 % [facility] Platelets (Bld) [#/Vol] 360 10*3/uL [facility] RBC (Bld) [#/Vol] 3.51 10*6/uL Low [facility] WBC (Bld) [#/Vol] 21.9 10*3/uL High [facility] Erythrocyte distribution width (RBC) [Ratio] 12.0 % Normal 11.5-14.5 [facility] Comment on above: Performed By: #### 5 8410-2 #### RONAL Alvarez (10946) [facility] () [address] [place] [address] Hematocrit (Bld) [Volume fraction] 30.1 % Low 36.0-46.0 [facility] Comment on above: Performed By: #### 5 8410-2 #### RONAL Alvarez (62412) [facility] () [address] [place] [address] Hemoglobin (Bld) [Mass/Vol] 10.5 g/dL Low 12.0-16.0 [facility] Comment on above: Performed By: #### 5 8410-2 #### RONAL Alvarez (19095) [facility] () [address] [place] [address] MCH (RBC) [Entitic mass] 29.9 pg Normal 26.0-34.0 [facility] Comment on above: Performed By: #### 5 8410-2 #### RONAL Alvarez (12922) [facility] () [address] [place] [address] MCHC (RBC) [Mass/Vol] 34.9 g/dL Normal 32.0-36.0 [facility] Comment on above: Performed By: #### 5 8410-2 #### RONAL Alvarez (40296) [facility] () [address] [place] [address] MCV (RBC) [Entitic vol] 86 fL Normal 80-100 [facility] Comment on above: Performed By: #### 5 8410-2 #### RONAL Alvarez (34636) [facility] () [address] [place] [address] Nucleated RBC/100 WBC (Bld) [Ratio] 0.0 /100 WBCs Normal 0.0-0.0 [facility] Comment on above: Performed By: #### 5 8410-2 #### RONAL Alvarez (28584) [facility] () [address] [place] [address] Platelets (Bld) [#/Vol] 360 x10*3/uL Normal 150-450 [facility] Comment on above: Performed By: #### 5 8410-2 #### RONAL Alvarez (93508) [facility] () [address] [place] [address] RBC (Bld) [#/Vol] 3.51 x10*6/uL Low 4.00-5.20 [facility] Comment on above: Performed By: #### 5 8410-2 #### RONAL Alvarez (33381) [facility] () [address] [place] [address] WBC (Bld) [#/Vol] 21.9 x10*3/uL High 4.4-11.3 [facility] Comment on above: Performed By: #### 5 8410-2 #### RONAL Alvarez (05263) [facility] () [address] [place] [address] No Panel Informationon 04-04 Interpretation and review of laboratory results Abnormal [facility] Urinalysis complete W Reflex Culture panel (U)on 04-04-2024 Appearance (U) Clear Clear [facility] Bilirubin (U) [Mass/Vol] Negative NEGATIVE [facility] Color (U) Light-Yellow Light-Yello w, Yellow, Dark-Yellow [facility] Glucose Auto test strip (U) [Mass/Vol] Normal Normal mg/dL [facility] Ketones (U) [Mass/Vol] Negative NEGAT AMANDA mg/dL [facility] Leukocyte esterase Auto test strip Ql (U) 75 Angi/ L Abnormal NEGATIVE [facility] Nitrite Auto test strip Ql (U) Negative NEGATIVE [facility] pH (U) 5.5 [pH] 5.0, 5.5, 6.0, 6.5, 7.0, 7.5, 8.0 [facility] Protein (U) [Mass/Vol] Negative NEGAT AMANDA, 10 (TRACE), 20 (TRACE) mg/dL [facility] RBC (U) [#/Vol] 0.1 (1+) Abnormal NEGATIVE [facility] Specific gravity (U) [Rel density] 1.011 1.005 - 1.035 [facility] Urobilinogen (U) [Mass/Vol] Normal Normal mg/dL [facility] Appearance (U) Clear Normal Clear [facility] Comment on above: Performed By: #### 5 8077-9 #### RONAL Alvarez (78328) [facility] () [address] [place] [address] Bilirubin (U) [Mass/Vol] Negative Normal NEGATIVE [facility] Comment on above: Performed By: #### 5 8077-9 #### RONAL Alvarez (99360) [facility] () [address] [place] [address] Color (U) Light-Yellow Normal Light-Yello w, Yellow, Dark-Yellow [facility] Comment on above: Performed By: #### 5 8077-9 #### RONAL Alvarez (28183) [facility] () [address] [place] [address] Glucose Auto test strip (U) [Mass/Vol] Normal Normal Normal [facility] Comment on above: Performed By: #### 5 8077-9 #### RONAL Alvarez (82338) [facility] () [address] [place] [address] Ketones (U) [Mass/Vol] Negative Normal NEGATIVE [facility] Comment on above: Performed By: #### 5 8077-9 #### RONAL Alvarez (98068) [facility] () [address] [place] [address] Leukocyte esterase Auto test strip Ql (U) 75 Angi/???L Abnormal NEGATIVE [facility] Comment on above: Performed By: #### 5 8077-9 #### RONAL Alvarez (16770) [facility] () [address] [place] [address] Nitrite Auto test strip Ql (U) Negative Normal NEGATIVE [facility] Comment on above: Performed By: #### 5 8077-9 #### RONAL Alvarez (97068) [facility] () [address] [place] [address] pH (U) 5.5 [pH] Normal 5.0, 5.5, 6.0, 6.5, 7.0, 7.5, 8.0 [facility] Comment on above: Performed By: #### 5 8077-9 #### RONAL Alvarez (34259) [facility] () [address] [place] [address] Protein (U) [Mass/Vol] Negative Normal NEGAT AMANDA, 10 (TRACE), 20 (TRACE) [facility] Comment on above: Performed By: #### 5 8077-9 #### RONAL Alvarez (09995) [facility] () [address] [place] [address] RBC (U) [#/Vol] 0.1 (1+) Abnormal NEGATIVE [facility] Comment on above: Performed By: #### 5 8077-9 #### RONAL Alvarez (78162) [facility] () [address] [place] [address] Specific gravity (U) [Rel density] 1.011 Normal 1.005-1.035 [facility] Comment on above: Performed By: #### 5 8077-9 #### RONAL Alvarez (67027) [facility] () [address] [place] [address] Urobilinogen (U) [Mass/Vol] Normal Normal Normal [facility] Comment on above: Performed By: #### 5 8077-9 #### RONAL Alvarez (03148) [facility] () [address] [place] [address] Urinalysis microscopic panel Auto Ql (U)on 04-04-2024 Epithelial cells.squamous Auto (Urine sed) [#/Area] 1-9 (SPARSE) Reference range not established . /HPF [facility] Mucus Auto (Urine sed) [#/Area] FEW Reference range not established . /LPF [facility] RBC Auto (Urine sed) [#/Area] 11-20 Abnormal NONE, 1-2, 3-5 /HPF [facility] WBC Auto (Urine sed) [#/Area] 6-10 Abnormal 1-5, NONE /HPF [facility] Epithelial cells.squamous Auto (Urine sed) [#/Area] 1-9 (SPARSE) Normal Reference range not established . [facility] Comment on above: Performed By: #### 5 3315-8 #### RONAL Alvarez (38854) [facility] () [address] [place] [address] Mucus Auto (Urine sed) [#/Area] FEW Normal Reference range not established . [facility] Comment on above: Performed By: #### 5 3315-8 #### RONAL FISHER T (33022) [facility] () [address] [place] [address] RBC Auto (Urine sed) [#/Area] 11-20 Abnormal NONE, 1-2, 3-5 [facility] Comment on above: Performed By: #### 5 3315-8 #### RONAL FISHER T (29512) [facility] () [address] [place] [address] WBC Auto (Urine sed) [#/Area] 6-10 Abnormal 1-5, NONE [facility] Comment on above: Performed By: #### 5 3315-8 #### RONAL LOCKTIE T (23975) [facility] () [address] [place] [address] XR CHEST 1 VIEWon 04-04-2024 XR CHEST 1 VIEW Interpreted By: Rafael Ibanez, STUDY: XR CHEST 1 VIEW; ; 04/04/2024 8:59 am INDICATION: Signs/Symptoms:leukocy tosis. COMPARISON: None. ACCESSION NUMBER(S): [id number] ORDERING CLINICIAN: KESHAWN STEVENSON TECHNIQUE: Single AP view chest FINDINGS: Cardiac silhouette is within normal limits. No infiltrate or effusion identified. Visualized osseous structures demonstrate glenohumeral joint osteoarthritis bilaterally. IMPRESSION: 1. No acute process MACRO: None Signed by: Rafael Shepard 04/04/2024 9:46 AM Dictation workstation: [id number] Normal [facility] XR Chest Single viewon 06-11 -2024 1. No acute process MACRO: None Signed by: Rafael Shepard 04/04/2024 9:46 AM Dictation workstation: [id number] [facility] Interpreted By: Rafael Ibanez, STUDY: XR CHEST 1 VIEW; ; 04/04/2024 8:59 am INDICATION: Signs/Symptoms:leukocy tosis. COMPARISON: None. ACCESSION NUMBER(S): [id number] ORDERING CLINICIAN: KESHAWN STEVENSON TECHNIQUE: Single AP view chest FINDINGS: Cardiac silhouette is within normal limits. No infiltrate or effusion identified. Visualized osseous structures demonstrate glenohumeral joint osteoarthritis bilaterally. [facility] Rafael Shepard MD - 04/04/2024 Interpreted By: Rafael Shepard, STUDY: XR CHEST 1 VIEW; ; 04/04/2024 8:59 am INDICATION: Signs/Symptoms:leukocy tosis. COMPARISON: None. ACCESSION NUMBER(S): [id number] ORDERING CLINICIAN: KESHAWN STEVENSON TECHNIQUE: Single AP view chest FINDINGS: Cardiac silhouette is within normal limits. No infiltrate or effusion identified. Visualized osseous structures demonstrate glenohumeral joint osteoarthritis bilaterally. IMPRESSION: 1. No acute process MACRO: None Signed by: Rafael Shepard 04/04/2024 9:46 AM Dictation workstation: [id number] [facility] Work Phone: Radiology Study observation (narrative) [facility] Work Phone: XR Chest Single viewOrdered By: Rafael Shepard on 04-04-2024 [facility] Work Phone: XR KNEE LEFT 1-2 VIEWSon XR KNEE LEFT 1-2 VIEWS Interpreted By: Herman Marquez, STUDY: XR KNEE LEFT 1-2 VIEWS; 04/03/2024 10:27 am INDICATION: Signs/Symptoms:Post-op knee. COMPARISON: None. ACCESSION NUMBER(S): [id number] ORDERING CLINICIAN: TIN WEST FINDINGS: Components of left knee arthroplasty are in anatomic alignment. Postoperative soft tissue gas. IMPRESSION: New left knee arthroplasty in anatomic alignment. MACRO: None Signed by: Herman Marquez 04/03/2024 11:33 AM Dictation workstation: [id number] [facility] Comment on above: Order Comment: AP an d Lateral view of (left) postoperative knee in PACU. XR Knee - left 1 or 2 Viewso n 04-03-2024 New left knee arthroplasty in anatomic alignment. MACRO: None Signed by: Herman Marquez 04/03/2024 11:33 AM Dictation workstation: [id number] [facility] Interpreted By: Herman Marquez, STUDY: XR KNEE LEFT 1-2 VIEWS; 04/03/2024 10:27 am INDICATION: Signs/Symptoms:Post-op knee. COMPARISON: None. ACCESSION NUMBER(S): [id number] ORDERING CLINICIAN: TIN WEST FINDINGS: Components of left knee arthroplasty are in anatomic alignment. Postoperative soft tissue gas. [facility] Herman Marquez MD - 04/03/2024 Interpreted By: Herman Marquez, STUDY: XR KNEE LEFT 1-2 VIEWS; 04/03/2024 10:27 am INDICATION: Signs/Symptoms:Post-op knee. COMPARISON: None. ACCESSION NUMBER(S): [id number] ORDERING CLINICIAN: TIN WEST FINDINGS: Components of left knee arthroplasty are in anatomic alignment. Postoperative soft tissue gas. IMPRESSION: New left knee arthroplasty in anatomic alignment. MACRO: None Signed by: Herman Marquez 04/03/2024 11:33 AM Dictation workstation: [id number] [facility] Work Phone: Radiology Study observation (narrative) [facility] Work Phone: XR Knee - left 1 or 2 ViewsO rdered By: Herman Marquez on 04-03-2024 [facility] Work Phone: Basic metabolic 2000 panelon 03-21-2024 Anion gap [Moles/Vol] 15 mmol/L Normal <=19 [facility] Comment on above: Performed By: #### 2 4321-2 #### RONAL Alvarez ([id number]) [facility] () [address] [place] [address] Calcium [Mass/Vol] 10.2 mg/dL Normal 8.5-10.4 [facility] Comment on above: Performed By: #### 2 4321-2 #### RONAL Alvarez (56164) [facility] () [address] [place] [address] Chloride [Moles/Vol] 103 mmol/L Normal 97-107 [facility] Comment on above: Performed By: #### 2 4321-2 #### RONAL Alvarez (95926) [facility] () [address] [place] [address] CO2 [Moles/Vol] 24 mmol/L Normal 24-31 [facility] Comment on above: Performed By: #### 2 4321-2 #### RONAL Alvarez (99968) [facility] () [address] [place] [address] Creatinine [Mass/Vol] 0.90 mg/dL Normal 0.40-1.60 [facility] Comment on above: Performed By: #### 2 4321-2 #### RONAL Alvarez (95711) [facility] () [address] [place] [address] Glomerular filtration rate/1.73 sq M.predicted 72 mL/min/1.73m*2 Normal >60 [facility] Comment on above: Result Comment: Calc ulations of estimated GFR are performed using the 2020 CKD-EPI Study Refit equation without the race variable for the IDMS-Traceable creatinine methods. https://jasn.asnjournals.org/content/early//ASN.2020 590063 Performed By: #### 2 4321-2 #### RONAL Alvarez (27426) [facility] () [address] [place] [address] Glucose [Mass/Vol] 84 mg/dL Normal 65-99 [facility] Comment on above: Performed By: #### 2 4321-2 #### RONAL Alvarez (95292) [facility] () [address] [place] [address] Potassium [Moles/Vol] 4.5 mmol/L Normal 3.4-5.1 [facility] Comment on above: Performed By: #### 2 4321-2 #### RONAL Alvarez (19105) [facility] () [address] [place] [address] Sodium [Moles/Vol] 142 mmol/L Normal 133-145 [facility] Comment on above: Performed By: #### 2 4321-2 #### RONAL Alvarez (46243) [facility] () [address] [place] [address] Urea nitrogen [Mass/Vol] 18 mg/dL Normal 8-25 [facility] Comment on above: Performed By: #### 2 4321-2 #### RONAL Alvarez (10157) [facility] () [address] [place] [address] CBC W Auto Differential pane l (Bld)on 03-21-2024 Basophils (Bld) [#/Vol] 0.07 x10*3/uL Normal 0.00-0.10 [facility] Comment on above: Performed By: #### 5 7021-8 #### RONAL Alvarez (76910) [facility] () [address] [place] [address] Basophils/100 WBC (Bld) 0.7 % Normal 0.0-2.0 [facility] Comment on above: Performed By: #### 5 7021-8 #### RONAL Alvarez (31230) [facility] () [address] [place] [address] Eosinophils (Bld) [#/Vol] 0.12 x10*3/uL Normal 0.00-0.70 [facility] Comment on above: Performed By: #### 5 7021-8 #### RONAL Alvarez (40046) [facility] () [address] [place] [address] Eosinophils/100 WBC (Bld) 1.2 % Normal 0.0-6.0 [facility] Comment on above: Performed By: #### 5 7021-8 #### RONAL Alvarez (33764) [facility] () [address] [place] [address] Erythrocyte distribution width (RBC) [Ratio] 12.3 % Normal 11.5-14.5 [facility] Comment on above: Performed By: #### 5 7021-8 #### RONAL Alvarez ([id number]) [facility] () [address] [place] [address] Hematocrit (Bld) [Volume fraction] 41.4 % Normal 36.0-46.0 [facility] Comment on above: Performed By: #### 5 7021-8 #### RONAL Alvarez (60143) [facility] () [address] [place] [address] Hemoglobin (Bld) [Mass/Vol] 13.5 g/dL Normal 12.0-16.0 [facility] Comment on above: Performed By: #### 5 7021-8 #### RONAL Alvarez (52217) [facility] () [address] [place] [address] Immature granulocytes (Bld) [#/Vol] 0.03 x10*3/uL Normal 0.00-0.70 [facility] Comment on above: Performed By: #### 5 7021-8 #### RONAL Alvarez (89131) [facility] () [address] [place] [address] Immature granulocytes/100 WBC (Bld) 0.3 % Normal 0.0-0.9 [facility] Comment on above: Result Comment: Анна ture Granulocyte Count (IG) includes promyelocytes, myelocytes and metamyelocytes but does not include bands. Percent differential counts (%) should be interpreted in the context of the absolute cell counts (cells/UL). Performed By: #### 5 7021-8 #### RONAL Alvarez (90732) [facility] () [address] [place] [address] Lymphocytes (Bld) [#/Vol] 2.15 x10*3/uL Normal 1.20-4.80 [facility] Comment on above: Performed By: #### 5 7021-8 #### RONAL Alvarez (79896) [facility] () [address] [place] [address] Lymphocytes/100 WBC (Bld) 21.7 % Normal 13.0-44.0 [facility] Comment on above: Performed By: #### 5 7021-8 #### RONAL Alvarez (51633) [facility] () [address] [place] [address] MCH (RBC) [Entitic mass] 29.3 pg Normal 26.0-34.0 [facility] Comment on above: Performed By: #### 5 7021-8 #### RONAL Alvarez (19331) [facility] () [address] [place] [address] MCHC (RBC) [Mass/Vol] 32.6 g/dL Normal 32.0-36.0 [facility] Comment on above: Performed By: #### 5 7021-8 #### RONAL Alvarez (68483) [facility] () [address] [place] [address] MCV (RBC) [Entitic vol] 90 fL Normal 80-100 [facility] Comment on above: Performed By: #### 5 7021-8 #### RONAL Alvarez (63188) [facility] () [address] [place] [address] Monocytes (Bld) [#/Vol] 0.76 x10*3/uL Normal 0.10-1.00 [facility] Comment on above: Performed By: #### 5 7021-8 #### RONAL Alvarez (07543) [facility] () [address] [place] [address] Monocytes/100 WBC (Bld) 7.7 % Normal 2.0-10.0 [facility] Comment on above: Performed By: #### 5 7021-8 #### RONAL Alvarez (44516) [facility] () [address] [place] [address] Neutrophils (Bld) [#/Vol] 6.78 x10*3/uL Normal 1.20-7.70 [facility] Comment on above: Result Comment: Perc ent differential counts (%) should be interpreted in the context of the absolute cell counts (cells/uL). Performed By: #### 5 7021-8 #### RONAL Alvarez (83100) [facility] () [address] [place] [address] Neutrophils/100 WBC (Bld) 68.4 % Normal 40.0-80.0 [facility] Comment on above: Performed By: #### 5 7021-8 #### RONAL Alvarez (64366) [facility] () [address] [place] [address] Nucleated RBC/100 WBC (Bld) [Ratio] 0.0 /100 WBCs Normal 0.0-0.0 [facility] Comment on above: Performed By: #### 5 7021-8 #### RONAL Alvarez (61788) [facility] () [address] [place] [address] Platelets (Bld) [#/Vol] 439 x10*3/uL Normal 150-450 [facility] Comment on above: Performed By: #### 5 7021-8 #### RONAL Alvarez (33647) [facility] () [address] [place] [address] RBC (Bld) [#/Vol] 4.60 x10*6/uL Normal 4.00-5.20 [facility] Comment on above: Performed By: #### 5 7021-8 #### RONAL Alvarez (09583) [facility] () [address] [place] [address] WBC (Bld) [#/Vol] 9.9 x10*3/uL Normal 4.4-11.3 [facility] Comment on above: Performed By: #### 5 7021-8 #### RONAL Alvarez (96144) [facility] () [address] [place] [address] Staphylococcus aureus.methic illin resistant isolateon 03-21-2024 MRSA isol Org specific cx Ql (Nose) Test: Staphylococcus aureus/MRSA colonization, Culture Specimen Source: Anterior Nares Specimen Type: Swab Specimen Date: 03/21/2024 1412 Result Date: 03/23/2024 0747 Result Status: Final result Abnormal: No Resulting Lab: [facility] [address] [place], [place] [id number] CULTURE No Staphylococcus aureus isolated Normal [facility] Comment on above: Performed By: #### 5 2969-3 #### CONNOR Grant ([id number]) [facility] ([facility]) [address] [place] [address] Urinalysis complete W Reflex Culture panel (U)on 03-21-2024 Appearance (U) Clear Normal Clear [facility] Comment on above: Performed By: #### 5 8077-9 #### RONAL Alvarez (53700) [facility] () [address] [place] [address] Bilirubin (U) [Mass/Vol] Negative Normal NEGATIVE [facility] Comment on above: Performed By: #### 5 8077-9 #### RONAL Alvarez ([id number]) [facility] () [address] [place] [address] Color (U) Light-Yellow Normal Light-Yello w, Yellow, Dark-Yellow [facility] Comment on above: Performed By: #### 5 8077-9 #### RONAL Alvarez ([id number]) [facility] () [address] [place] [address] Glucose Auto test strip (U) [Mass/Vol] Normal Normal Normal [facility] Comment on above: Performed By: #### 5 8077-9 #### RONAL Alvarez ([id number]) [facility] () [address] [place] [address] Ketones (U) [Mass/Vol] Negative Normal NEGATIVE [facility] on above: Performed By: #### 5 8077-9 #### RONAL Alvarez ([id number]) [facility] () [address] [place] [address] Leukocyte esterase Auto test strip Ql (U) Negative Normal NEGATIVE [facility] Comment on above: Performed By: #### 5 8077-9 #### RONAL Alvarez ([id number]) [facility] () [address] [place] [address] Nitrite Auto test strip Ql (U) Negative Normal NEGATIVE [facility] Comment on above: Performed By: #### 5 8077-9 #### RONAL Alvarez ([id number]) [facility] () [address] [place] [address] pH (U) 5.5 [pH] Normal 5.0, 5.5, 6.0, 6.5, 7.0, 7.5, 8.0 [facility] Comment on above: Performed By: #### 5 8077-9 #### RONAL Alvarez ([id number]) [facility] () [address] [place] [address] Protein (U) [Mass/Vol] Negative Normal NEGAT AMANDA, 10 (TRACE), 20 (TRACE) [facility] Comment on above: Performed By: #### 5 8077-9 #### RONAL Alvarez ([id number]) [facility] () [address] [place] [address] RBC (U) [#/Vol] Negative Normal NEGATIVE [facility] Comment on above: Performed By: #### 5 8077-9 #### RONAL Alvarez ([id number]) [facility] () [address] [place] [address] Specific gravity (U) [Rel density] 1.016 Normal 1.005-1.035 [facility] Comment on above: Performed By: #### 5 8077-9 #### RONAL Alvarez ([id number]) [facility] () [address] [place] [address] Urobilinogen (U) [Mass/Vol] Normal Normal Normal [facility] Comment on above: Performed By: #### 5 8077-9 #### RONAL Alvarez ([id number]) [facility] () [address] [place] [address] Absolute lymphocyte countOrd ered By: Karlie Johnson on 12-16-2023 Lymphocytes Auto (Unsp spec) [#/Vol] 2.10 10*3/uL 0.83-4.51 [facility] Automated lymphocyte count a s percentage of total leukocytesOrdered By: Karlie Johnson on 12-16-2023 Lymphocytes/100 WBC Auto (Unsp spec) 20.1 % 19-41 [facility] Basophil percentageOrdered B y: Karlie Johnson on 12-16-2023 Basophils/100 WBC (Bld) 0.9 % 0-1 [facility] Chloride [Moles/Vol] 107 mmol/L 98-107 [facility] [address] [facility] Eosinophils/100 WBC (Bld) 3.5 % 0-5 [facility] Glucose [Mass/Vol] 95 mg/dL 74-106 [facility] Hemoglobin (Bld) [Mass/Vol] 12.4 g/dL 12.0-15.0 [facility] Monocytes/100 WBC (Bld) 8.6 % 0-10 [facility] Neutrophils (Bld) [#/Vol] 6.9 10*3/uL 2.0-7.7 [facility] Neutrophils/100 WBC (Bld) 66.1 % 47-70 [facility] Potassium [Moles/Vol] 3.6 mmol/L 3.5-5.1 [facility] Sodium [Moles/Vol] 141 mmol/L 136-145 [facility] WBC (Bld) [#/Vol] 10.4 10*3/uL 4.4-11.0 [facility] Determination of erythrocyte mean corpuscular volume (MCV)Ordered By: Karlie Johnson on 12-16-2023 MCV (RBC) [Entitic vol] 90.7 fL 81-99 [facility] Erythrocyte distribution wid th ratioOrdered By: Karlie Johnson on 12-16-2023 Erythrocyte distribution width (RBC) [Ratio] 12.6 % 11.6-14.6 [facility] Erythrocyte distribution wid th standard deviationOrdered By: Karlie Johnson on 12-16-2023 Erythrocyte distribution width (RBC) [Entitic vol] 41.3 fL 35.1-43.9 [facility] Hematocrit Auto (Bld) [Volum e fraction]Ordered By: Karlie Johnson on 12-16-2023 Hematocrit (Bld) [Volume fraction] 38.9 % 37-47 [facility] Immature granulocytes/100 WB C Auto (Bld)Ordered By: Karlie Johnson on 12-16-2023 Immature granulocytes/100 WBC (Bld) 0.800 % 0.0-0.9 [facility] Comment on above: IG% - Immature Granu locytes (promyelocytes, myelocytes and metamyelocytes) > 1% indicates that a LEFT SHIFT is Present. Laboratory - Chemistry and C hemistry - challengeOrdered By: Karlie Johnson on 12-16-2023 CO2 [Moles/Vol] 29.0 mmol/L 21.0-32.0 [facility] Magnesium [Mass/Vol] 2.5 mg/dL 1.6-2.6 [facility] Urea nitrogen/Creatinine [Mass ratio] 17.3 mg/mg 10-20 [facility] Laboratory - Hematology and Cell countsOrdered By: Karlie Johnson on 12-16-2023 MCH (RBC) [Entitic mass] 28.9 pg 27.0-32.0 [facility] MCHC (RBC) [Mass/Vol] 31.9 g/dL 32-36 [facility] Nucleated RBC/100 WBC (Bld) [Ratio] 0 % 0-5 [facility] Platelet mean volume (Bld) [Entitic vol] 9.8 fL 6.2-12.0 [facility] Platelets (Bld) [#/Vol] 453 10*3/uL 150-450 [facility] No Panel InformationOrdered By: Karlie Johnson on 12-16-2023 Estimated GFR (MDRD) Amer 85 mL/min >60 [facility] Comment on above: GFR Calc Estimated GFR (MDRD) Non-Af Amer 70 mL/min >60 [facility] Comment on above: Non- GFR Calc Free Triiodothyronine (T3) pg/dL 2.3 pg/mL 2.18-3.98 [facility] RBC Auto (Bld) [#/Vol]Ordere d By: Karlie Johnson on 12-16-2023 RBC (Bld) [#/Vol] 4.29 10*6/uL 4.2-5.4 [facility] Serum or plasma calcium kyree urement (mass/volume)Ordered By: Karlie Johnson on 12-16-2023 Calcium [Mass/Vol] 9.3 mg/dL 8.5-10.1 [facility] Serum or plasma creatinine m easurement (mass/volume)Ordered By: Karlie Johnson on 12-16-2023 Creatinine [Mass/Vol] 0.87 mg/dL 0.55-1.02 [facility] Comment on above: The validity of the calculated GFR & GFRAA in patients over 70 years has not been determined. Clinical correlation is essential. Serum or plasma thyroid stim ulating hormone (TSH) measurement (units/volume)Ordered By: Karlie Johnson on 12-16-2023 TSH Qn 1.76 uIU/mL 0.358-3.74 [facility] Serum or plasma urea nitroge n measurement (mass/volume)Ordered By: Karlie Johnson on 12-16-2023 Urea nitrogen [Mass/Vol] 15 mg/dL 7-18 [facility] Thin prep Papanicolaou smear with manual screeningOrdered By: Karlie Johnson on 12-16-2023 Thin prep Papanicolaou smear with manual screening 5 5-15 [facility] Thin prep Papanicolaou smear with manual screening 1.10 ng/dL 0.76-1.46 [facility] Laboratory - Microbiology an d Antimicrobial susceptibilityon 10-06-2023 SARS-CoV-2 (COVID-19) RNA NEIL+probe Ql (Unsp spec) Detected [facility] No Panel Informationon 10-06 Influenza Types A,B Rapid (Clinic) Not detected [facility] Absolute lymphocyte countOrd ered By: Yennifer Johnson on 09-27-2023 Lymphocytes Auto (Unsp spec) [#/Vol] 1.81 10*3/uL 0.83-4.51 [facility] Basophil percentageOrdered B y: Yennifer Johnson on 09-27-2023 Basophils/100 WBC (Bld) 0.6 % 0-1 [facility] Chloride [Moles/Vol] 106 mmol/L 98-107 [facility] Eosinophils/100 WBC (Bld) 1.4 % 0-5 [facility] Glucose [Mass/Vol] 90 mg/dL 74-106 [facility] Neutrophils (Bld) [#/Vol] 8.1 10*3/uL 2.0-7.7 [facility] Neutrophils/100 WBC (Bld) 73.3 % 47-70 [facility] Potassium [Moles/Vol] 3.8 mmol/L 3.5-5.1 [facility] Sodium [Moles/Vol] 139 mmol/L 136-145 [facility] WBC (Bld) [#/Vol] 11.0 10*3/uL 4.4-11.0 [facility] Blood erythrocytes count (nu mber/volume)Ordered By: Yennifer Johnson on 09-27-2023 RBC (Bld) [#/Vol] 4.37 10*6/uL 4.2-5.4 [facility] Blood hemoglobin measurement (mass/volume)Ordered By: Yennifer Johnson on 09-27-2023 Hemoglobin (Bld) [Mass/Vol] 12.9 g/dL 12.0-15.0 [facility] Blood lymphocytes/100 leukoc ytesOrdered By: Yennifer Johnson on 09-27-2023 Lymphocytes/100 WBC (Bld) 16.5 % 19-41 [facility] Blood monocytes/100 leukocyt esOrdered By: Yennifer Johnson on 09-27-2023 Monocytes/100 WBC (Bld) 7.7 % 0-10 [facility] Blood platelet mean volumeOr dered By: Yennifer Johnson on 09-27-2023 Platelet mean volume (Bld) [Entitic vol] 10.3 fL 6.2-12.0 [facility] Determination of erythrocyte mean corpuscular volume (MCV)Ordered By: Yennifer Johnson on 09-27-2023 MCV (RBC) [Entitic vol] 90.4 fL 81-99 [facility] Hematocrit Auto (Bld) [Volum e fraction]Ordered By: Yennifer Johnson on 09-27-2023 Hematocrit (Bld) [Volume fraction] 39.5 % 37-47 [facility] Laboratory - Chemistry and C hemistry - challengeOrdered By: Yennifer Johnson on 09-27-2023 CO2 [Moles/Vol] 24.0 mmol/L 21.0-32.0 [facility] Urea nitrogen/Creatinine [Mass ratio] 20.6 mg/mg 10-20 [facility] Laboratory - Hematology and Cell countsOrdered By: Yennifer Johnson on 09-27-2023 Erythrocyte distribution width (RBC) [Entitic vol] 39.6 fL 35.1-43.9 [facility] Erythrocyte distribution width (RBC) [Ratio] 11.9 % 11.6-14.6 [facility] Immature granulocytes/100 WBC (Bld) 0.500 % 0.0-0.9 [facility] Comment on above: IG% - Immature Granu locytes (promyelocytes, myelocytes and metamyelocytes) > 1% indicates that a LEFT SHIFT is Present. MCH (RBC) [Entitic mass] 29.5 pg 27.0-32.0 [facility] Nucleated RBC/100 WBC (Bld) [Ratio] 0 % 0-5 [facility] MCHC Auto (RBC) [Mass/Vol]Or dered By: Yennifer Johnson on 09-27-2023 MCHC (RBC) [Mass/Vol] 32.7 g/dL 32-36 [facility] No Panel InformationOrdered By: Yennifer Johnson on 09-27-2023 Estimated GFR (MDRD) Amer 97 mL/min >60 [facility] Comment on above: GFR Calc Estimated GFR (MDRD) Non-Af Amer 80 mL/min >60 [facility] Comment on above: Non- GFR Calc Platelets bldOrdered By: Lokesh Johnson on 09-27-2023 Platelets (Bld) [#/Vol] 452 10*3/uL 150-450 [facility] Serum or plasma calcium kyree urement (mass/volume)Ordered By: Yennifer Johnson on 09-27-2023 Calcium [Mass/Vol] 9.4 mg/dL 8.5-10.1 [facility] Serum or plasma creatinine m easurement (mass/volume)Ordered By: Yennifer Johnson on 09-27-2023 Creatinine [Mass/Vol] 0.78 mg/dL 0.55-1.02 [facility] Comment on above: The validity of the calculated GFR & GFRAA in patients over 70 years has not been determined. Clinical correlation is essential. Serum or plasma urea nitroge n measurement (mass/volume)Ordered By: Yennifer Johnson on 09-27-2023 Urea nitrogen [Mass/Vol] 16 mg/dL 7-18 [facility] Thin prep Papanicolaou smear with manual screeningOrdered By: Yennifer Johnson on 09-27-2023 Thin prep Papanicolaou smear with manual screening 9 5-15 [facility] Basophil percentageOrdered B y: Karlie Johnson on 07-03-2023 Bilirubin [Mass/Vol] 0.40 mg/dL 0.20-1.00 [facility] Comment on above: For patients on eltr ombopag therapy, use of Dimension Terral TBIL is not recommended. Cholesterol [Mass/Vol] 153 mg/dL <200 [facility] Comment on above: <200 mg/dL Desirable 200-240 mg/dL Borderline >240 mg/dL High Risk Protein [Mass/Vol] 7.6 g/dL 6.4-8.2 [facility] Triglyceride [Mass/Vol] 81 mg/dL <199 [facility] Comment on above: The drugs N-Acetylcy steine and Metamizole may falsely depress this assay.Serum Triglycerides Reference Interval Normal <150 mg/dL Borderline high 150 - 199 mg/dL High 200 - 499 mg/dL Very High > or = 500 mg/dL Direct bilirubinOrdered By: Karlie Johnson on 07-03-2023 Bilirubin.direct [Mass/Vol] 0.14 mg/dL 0.00-0.30 [facility] Laboratory - Chemistry and C hemistry - challengeOrdered By: Karlie Johnson on 07-03-2023 ALP [Catalytic activity/Vol] 79 U/L 45-117 [facility] ALT [Catalytic activity/Vol] 20 U/L 13-56 [facility] Globulin (S) [Mass/Vol] 3.8 g/dL 2.2-4.[address] [facility] Serum or plasma albumin kyree urement (mass/volume)Ordered By: Karlie Johnson on 07-03-2023 Albumin [Mass/Vol] 3.8 g/dL 3.2-5.0 [facility] Serum or plasma cholesterol in HDL measurement (mass/volume)Ordered By: Karlie Johnson on 07-03-2023 Cholesterol in HDL [Mass/Vol] 53 mg/dL >40 [facility] Comment on above: The drugs N-Acetylcy steine and Metamizole may falsely depress this assay. Reference Range HDL <40 mg/dL Low HDL Cholesterol HDL >or= 60 mg/dL High HDL Cholesterol Serum or plasma cholesterol in VLDL measurement (mass/volume)Ordered By: Karlie Johnson on 07-03-2023 Cholesterol in VLDL [Mass/Vol] 16 mg/dL 5-40 [facility] Serum or plasma low density lipoprotein (LDL) cholesterol measurement (mass/volume)Ordered By: Karlie Johnson on 07-03-2023 Cholesterol in LDL [Mass/Vol] 84 mg/dL 0-130 [facility] Thin prep Papanicolaou smear with manual screeningOrdered By: Karlie Johnson on 07-03-2023 Thin prep Papanicolaou smear with manual screening 15 U/L 15-37 [facility] Basophil percentageOrdered B y: Dr. Lopez on 03-16-2023 Bilirubin [Mass/Vol] 0.30 mg/dL 0.20-1.00 [facility] Comment on above: For patients on eltr ombopag therapy, use of Dimension Terral TBIL is not recommended. Cholesterol [Mass/Vol] 179 mg/dL <200 [facility] Comment on above: <200 mg/dL Desirable 200-240 mg/dL Borderline >240 mg/dL High Risk Protein [Mass/Vol] 7.8 g/dL 6.4-8.2 [facility] Triglyceride [Mass/Vol] 62 mg/dL <199 [facility] Comment on above: The drugs N-Acetylcy steine and Metamizole may falsely depress this assay.Serum Triglycerides Reference Interval Normal <150 mg/dL Borderline high 150 - 199 mg/dL High 200 - 499 mg/dL Very High > or = 500 mg/dL Direct bilirubinOrdered By: Dr. Lopez on 03-16-2023 Bilirubin.direct [Mass/Vol] 0.12 mg/dL 0.00-0.30 [facility] Laboratory - Chemistry and C hemistry - challengeOrdered By: Dr. Lopez on 03-16-2023 ALP [Catalytic activity/Vol] 88 U/L 45-117 [facility] ALT [Catalytic activity/Vol] 22 U/L 13-56 [facility] Globulin (S) [Mass/Vol] 4.0 g/dL 2.2-4.[address] [facility] Serum or plasma albumin kyree urement (mass/volume)Ordered By: Dr. Lopez on 03-16-2023 Albumin [Mass/Vol] 3.8 g/dL 3.2-5.0 [facility] Serum or plasma cholesterol in HDL measurement (mass/volume)Ordered By: Dr. Lopez on 03-16-2023 Cholesterol in HDL [Mass/Vol] 66 mg/dL >40 [facility] Comment on above: The drugs N-Acetylcy steine and Metamizole may falsely depress this assay. Reference Range HDL <40 mg/dL Low HDL Cholesterol HDL >or= 60 mg/dL High HDL Cholesterol Serum or plasma cholesterol in VLDL measurement (mass/volume)Ordered By: Dr. Lopez on 03-16-2023 Cholesterol in VLDL [Mass/Vol] 12 mg/dL 5-40 [facility] Serum or plasma low density lipoprotein (LDL) cholesterol measurement (mass/volume)Ordered By: Dr. Lopez on 03-16-2023 Cholesterol in LDL [Mass/Vol] 101 mg/dL 0-130 [facility] Thin prep Papanicolaou smear with manual screeningOrdered By: Dr. Lopez on 03-16-2023 Thin prep Papanicolaou smear with manual screening 17 U/L 15-37 [facility] Basophil percentageOrdered B y: Dr. Lopez on 10-31-2022 Bilirubin [Mass/Vol] 0.50 mg/dL 0.20-1.00 [facility] Comment on above: For patients on eltr ombopag therapy, use of Dimension Terral TBIL is not recommended. Cholesterol [Mass/Vol] 176 mg/dL <200 [facility] Comment on above: <200 mg/dL Desirable 200-240 mg/dL Borderline >240 mg/dL High Risk Protein [Mass/Vol] 7.6 g/dL 6.4-8.2 [facility] Triglyceride [Mass/Vol] 88 mg/dL <199 [facility] Comment on above: The drugs N-Acetylcy steine and Metamizole may falsely depress this assay.Serum Triglycerides Reference Interval Normal <150 mg/dL Borderline high 150 - 199 mg/dL High 200 - 499 mg/dL Very High > or = 500 mg/dL Direct bilirubinOrdered By: Dr. Lopez on 10-31-2022 Bilirubin.direct [Mass/Vol] 0.10 mg/dL 0.00-0.30 [facility] Laboratory - Chemistry and C hemistry - challengeOrdered By: Dr. Lopez on 10-31-2022 ALP [Catalytic activity/Vol] 82 U/L 45-117 [facility] ALT [Catalytic activity/Vol] 22 U/L 13-56 [facility] Globulin (S) [Mass/Vol] 3.7 g/dL 2.2-4.2 [facility] Serum or plasma albumin kyree urement (mass/volume)Ordered By: Dr. Lopez on 10-31-2022 Albumin [Mass/Vol] 3.9 g/dL 3.2-5.0 [facility] Serum or plasma cholesterol in HDL measurement (mass/volume)Ordered By: Dr. Lopez on 10-31-2022 Cholesterol in HDL [Mass/Vol] 68 mg/dL >40 [facility] Comment on above: The drugs N-Acetylcy steine and Metamizole may falsely depress this assay. Reference Range HDL <40 mg/dL Low HDL Cholesterol HDL >or= 60 mg/dL High HDL Cholesterol Serum or plasma cholesterol in VLDL measurement (mass/volume)Ordered By: Dr. Lopez on 10-31-2022 Cholesterol in VLDL [Mass/Vol] 18 mg/dL 5-40 [facility] Serum or plasma low density lipoprotein (LDL) cholesterol measurement (mass/volume)Ordered By: Dr. Lopez on 10-31-2022 Cholesterol in LDL [Mass/Vol] 90 mg/dL 0-130 [facility] Thin prep Papanicolaou smear with manual screeningOrdered By: Dr. Lopez on 10-31-2022 Thin prep Papanicolaou smear with manual screening 12 U/L 15-37 [facility] Absolute lymphocyte counton 06-24-2022 Lymphocytes Auto (Unsp spec) [#/Vol] 2.61 10*3/uL 0.83-4.51 [facility] Work Phone: Basophil percentageon 2021 Basophils/100 WBC (Bld) 0.7 % 0-1 [facility] Work Phone: Chloride [Moles/Vol] 107 mmol/L 98-107 [facility] Work Phone: Eosinophils/100 WBC (Bld) 2.0 % 0-5 [facility] Work Phone: Glucose [Mass/Vol] 81 mg/dL 74-106 [facility] Work Phone: Neutrophils (Bld) [#/Vol] 6.7 10*3/uL 2.0-7.7 [facility] Work Phone: Neutrophils/100 WBC (Bld) 62.6 % 47-70 [facility] Work Phone: Potassium [Moles/Vol] 3.5 mmol/L 3.5-5.1 [facility] Work Phone: [phone] Sodium [Moles/Vol] 142 mmol/L 136-145 [facility] Work Phone: [phone] WBC (Bld) [#/Vol] 10.8 10*3/uL 4.4-11.0 [facility] Work Phone: [phone] Blood erythrocytes count (nu mber/volume)on 06-24-2022 RBC (Bld) [#/Vol] 4.27 10*6/uL 4.2-5.4 [facility] Work Phone: [phone] Blood hemoglobin measurement (mass/volume)on 06-24-2022 Hemoglobin (Bld) [Mass/Vol] 13.0 g/dL 12.0-15.0 [facility] Work Phone: [phone] Blood lymphocytes/100 leukoc yteson 06-24-2022 Lymphocytes/100 WBC (Bld) 24.3 % 19-41 [facility] Work Phone: [phone] Blood monocytes/100 leukocyt eson 06-24-2022 Monocytes/100 WBC (Bld) 9.7 % 0-10 [facility] Work Phone: [phone] Blood platelet mean volumeon 06-24-2022 Platelet mean volume (Bld) [Entitic vol] 10.1 fL 6.2-12.0 [facility] Work Phone: [phone] Determination of erythrocyte mean corpuscular volume (MCV)on 06-24-2022 MCV (RBC) [Entitic vol] 92.3 fL 81-99 [facility] Work Phone: [phone] Hematocrit Auto (Bld) [Volum e fraction]on 06-24-2022 Hematocrit (Bld) [Volume fraction] 39.4 % 37-47 [facility] Work Phone: Laboratory - Chemistry and C hemistry - challengeon 06-24-2022 CO2 [Moles/Vol] 31.0 mmol/L 21.0-32.0 [facility] Work Phone: [phone] Magnesium [Mass/Vol] 2.4 mg/dL 1.6-2.6 [facility] Work Phone: [phone] Urea nitrogen/Creatinine [Mass ratio] 18.8 mg/mg 10-20 [facility] Work Phone: [phone] Laboratory - Hematology and Cell countson 06-24-2022 Erythrocyte distribution width (RBC) [Entitic vol] 41.0 fL 35.1-43.9 [facility] Work Phone: [phone] Erythrocyte distribution width (RBC) [Ratio] 12.2 % 11.6-14.6 [facility] Work Phone: [phone] Immature granulocytes/100 WBC (Bld) 0.700 % 0.0-0.9 [facility] Work Phone: [phone] Comment on above: IG% - Immature Granu locytes (promyelocytes, myelocytes and metamyelocytes) > 1% indicates that a LEFT SHIFT is Present. MCH (RBC) [Entitic mass] 30.4 pg 27.0-32.0 [facility] Work Phone: [phone] Nucleated RBC/100 WBC (Bld) [Ratio] 0 % 0-5 [facility] Work Phone: [phone] MCHC Auto (RBC) [Mass/Vol]on 06-24-2022 MCHC (RBC) [Mass/Vol] 33.0 g/dL 32-36 [facility] Work Phone: [phone] No Panel Informationon 06-24 Estimated GFR (MDRD) Amer 81 mL/min >60 [facility] Work Phone: [phone] Comment on above: GFR Calc Estimated GFR (MDRD) Non-Af Amer 67 mL/min >60 [facility] Work Phone: [phone] Comment on above: Non- GFR Calc Platelets bldon 06-24-2022 Platelets (Bld) [#/Vol] 433 10*3/uL 150-450 [facility] Work Phone: [phone] Serum or plasma calcium kyree urement (mass/volume)on 06-24-2022 Calcium [Mass/Vol] 9.7 mg/dL 8.5-10.1 [facility] Work Phone: Serum or plasma creatinine m easurement (mass/volume)on 06-24-2022 Creatinine [Mass/Vol] 0.90 mg/dL 0.55-1.02 [facility] Work Phone: Comment on above: The validity of the calculated GFR & GFRAA in patients over 70 years has not been determined. Clinical correlation is essential. Serum or plasma urea nitroge n measurement (mass/volume)on 06-24-2022 Urea nitrogen [Mass/Vol] 17 mg/dL 7-18 [facility] Work Phone: Thin prep Papanicolaou smear with manual screeningon 06-24-2022 Thin prep Papanicolaou smear with manual screening 4 5-15 [facility] Work Phone: Laboratory - Chemistry and C hemistry - challengeon 06-09-2022 Cobalamin (Vitamin B12) [Mass/Vol] 362 pg/mL 211-911 [facility] Work Phone: Free T4 [Mass/Vol] 1.10 ng/dL 0.76-1.46 [facility] Work Phone: No Panel Informationon 06-09 Thyroid Stimulating Hormone (TSH) 1.73 uIU/mL 0.358-3.74 [facility] Work Phone: Basophil percentageon 2021 Bilirubin [Mass/Vol] 0.40 mg/dL 0.20-1.00 [facility] Work Phone: Comment on above: For patients on eltr ombopag therapy, use of Dimension Terral TBIL is not recommended. Cholesterol [Mass/Vol] 162 mg/dL <200 [facility] Work Phone: Comment on above: <200 mg/dL Desirable 200-240 mg/dL Borderline >240 mg/dL High Risk Protein [Mass/Vol] 7.2 g/dL 6.4-8.2 [facility] Work Phone: Triglyceride [Mass/Vol] 85 mg/dL <199 [facility] Work Phone: Comment on above: The drugs N-Acetylcy steine and Metamizole may falsely depress this assay.Serum Triglycerides Reference Interval Normal <150 mg/dL Borderline high 150 - 199 mg/dL High 200 - 499 mg/dL Very High > or = 500 mg/dL Direct bilirubinon Bilirubin.direct [Mass/Vol] 0.10 mg/dL 0.00-0.30 [facility] Work Phone: Laboratory - Chemistry and C hemistry - challengeon 05-15-2022 ALP [Catalytic activity/Vol] 80 U/L 45-117 [facility] Work Phone: ALT [Catalytic activity/Vol] 19 U/L 13-56 [facility] Work Phone: Globulin (S) [Mass/Vol] 3.6 g/dL 2.2-4.2 [facility] Work Phone: [phone] Serum or plasma albumin kyree urement (mass/volume)on 05-15-2022 Albumin [Mass/Vol] 3.6 g/dL 3.2-5.0 [facility] Work Phone: Serum or plasma cholesterol in HDL measurement (mass/volume)on 05-15-2022 Cholesterol in HDL [Mass/Vol] 56 mg/dL >40 [facility] Work Phone: Comment on above: The drugs N-Acetylcy steine and Metamizole may falsely depress this assay. Reference Range HDL <40 mg/dL Low HDL Cholesterol HDL >or= 60 mg/dL High HDL Cholesterol Serum or plasma cholesterol in VLDL measurement (mass/volume)on 05-15-2022 Cholesterol in VLDL [Mass/Vol] 17 mg/dL 5-40 [facility] Work Phone: [phone] Serum or plasma low density lipoprotein (LDL) cholesterol measurement (mass/volume)on 05-15-2022 Cholesterol in LDL [Mass/Vol] 89 mg/dL 0-130 [facility] Work Phone: Thin prep Papanicolaou smear with manual screeningon 05-15-2022 Thin prep Papanicolaou smear with manual screening 13 U/L 15-37 [facility] Work Phone: CNPAnn Marie 05-22-2020 [facility] Telephone (UCWSTR) KEIRALEEANN Rudy ([id number]) 1960 F Date Time Provider Department 05/22/20 [...] asking if rx needs changed? Patient uses [facility] for her pharmacy. Please advise Leeroy Toney [...] notified and verbalized understanding of instructions given.Leeann aSmson LPN Allergies As of Date: 05/22/2020 Noted [...] Status:Closed by LEEANN SAMSON LPN on 05/22/20 [facility] CNOVon 05-19-2020 CNOV Office Visit (UCWSTR ) LEEANN CROCKETT ([id number]) 1960 F Date Time Provider Department 05/19/20 8:15 AM NUSRAT HOLLAND [facility] During your visit today, we recorded the following information about you: Temperature Pulse Respiration Blood pressure 98.6 degrees 102/minute 16/minute 108/82 Weight 74.1 kg Nusrat Holland APRN.CRIMPING PRESS OPERATOR 05/19/2020 8:46 AM Signed ASSESSMENT/PLAN: 1. Right [...] DIP, URINE (POC) - URINE CULTURE Nusrat HollandGEORGIE.CRIMPING PRESS OPERATOR 05/19/2020 8:53 AM Signed Subjective HPI HPI [...] have confirmed and edited as necessary, the [facility] Review of Systems Constitutional: Negative for [...] detail warranting prompt ER evaluation. Nusrat Holland, BAND AID MACHINE OPERATOR.CRIMPING PRESS OPERATOR Referring Provider: SELF [200] Allergies As of [...] [N39.0] Dysuria [R30.0] Order(s):UA DIP, URINE (POC) [4077217] Order #: [id number] #:[id number] URINE CULTURE [SQURCUL] Order #: [id number] sulfamethoxazole-trime thoprim (BACTRIM DS) 800-160 mg per [...] by NUSRAT HOLLAND CNP on 05/19/20 Normal [facility] PROGRESSon 05-19-2020 PROGRESS HNO ID: [id number] Author: Nusrat Holland Service: ? Author Type: [...] have confirmed and edited as necessary, the [facility] Review of Systems Constitutional: Negative for [...] detail warranting prompt ER evaluation. Nusrat Holland APRN.CRIMPING PRESS OPERATOR Normal [facility] Urine Cultureon 05-19-2020 Bacteria identified Cx Nom [...] F Ertapenem SUSCEPTIBLE <=0.5 F Critically abnormal [facility] Comment on above: Performed By: #### U RCUL #### [facility] [address] [place] [address] Vital Signs Date Time Vital Sign Value Performing Clinician Facility 04-26-2025 13:01-0400 Body height 157.[address] Yennifer Johnson MD Work Phone: [facility] 04-26-2025 13:01-0400 Body mass index (BMI) [Ratio] 28.7 kg/m2 Dr. Yennifer Johnson MD Work Phone: [facility] 04-26-2025 13:01-0400 Body weight 71.[address] Yennifer Johnson MD Work Phone: [facility] 04-26-2025 13:01-0400 Diastolic blood pressure 72 mm[Hg] Dr. Yennifer Johnson MD Work Phone: [facility] 04-26-2025 13:01-0400 Heart rate 82 /min Dr. Yennifer Johnson MD Work Phone: [facility] 04-26-2025 13:01-0400 Respiratory rate 18 /min Dr. Yennifer Johnson MD Work Phone: [facility] 04-26-2025 13:01-0400 Systolic blood pressure 118 mm[Hg] Dr. Yennifer Johnson MD Work Phone: [facility] 04-04-2024 12:06-0400 Body temperature 98.4 [degF] Tin West MD Work Phone: [facility] 04-04-2024 12:06-0400 Diastolic blood pressure 66 mm[Hg] Tin West MD Work Phone: [facility] 04-04-2024 12:06-0400 Respiratory rate 16 /min Tin West MD Work Phone: [facility] 04-04-2024 12:06-0400 SaO2% (BldA) [Mass fraction] 99 % Tin West MD Work Phone: [facility] 04-04-2024 12:06-0400 Systolic blood pressure 133 mm[Hg] Tin West MD Work Phone: [facility] 04-04-2024 03:27-0400 Body mass index (BMI) [Ratio] 32.5 kg/m2 Tin West MD Work Phone: [facility] 04-04-2024 03:27-0400 Body weight 80.6 kg Tin West MD Work Phone: [facility] 04-03-2024 12:15-0400 Heart rate 76 /min Tin West MD Work Phone: [facility] 12-16-2023 13:11-0500 Body height 157.[address] Yennifer Johnson Work Phone: [facility] 12-16-2023 13:11-0500 Body mass index (BMI) [Ratio] 29.2 kg/m2 Dr. Yennifer Johnson Work Phone: [facility] 12-16-2023 13:11-0500 Body weight 72.[address] Yennifer Johnson Work Phone: [facility] 12-16-2023 13:11-0500 Diastolic blood pressure 77 mm[Hg] Dr. Yennifer Johnson Work Phone: [facility] 12-16-2023 13:11-0500 Heart rate 73 /min Dr. Yennifer Johnson Work Phone: [facility] 12-16-2023 13:11-0500 Respiratory rate 18 /min Dr. Yennifer Johnson Work Phone: [facility] 12-16-2023 13:11-0500 SaO2% (BldA) [Mass fraction] 97 % Dr. Yennifer Johnson Work Phone: [facility] 12-16-2023 13:11-0500 Systolic blood pressure 123 mm[Hg] Dr. Yennifer Johnson Work Phone: [facility] 10-06-2023 11:20-0500 Body height 157.[address] Yennifer Johnson Work Phone: [facility] 10-06-2023 11:20-0500 Body mass index (BMI) [Ratio] 27.8 kg/m2 Dr. Yennifer Johnson Work Phone: [facility] 10-06-2023 11:20-0500 Body temperature 98.2 [degF] Dr. Yennifer Johnson Work Phone: [facility] 10-06-2023 11:20-0500 Body weight 68.[address] Yennifer Johnson Work Phone: [facility] 10-06-2023 11:20-0500 Diastolic blood pressure 63 mm[Hg] Dr. Yennifer Johnson Work Phone: [facility] 10-06-2023 11:20-0500 Heart rate 92 /min Dr. Yennifer Johnson Work Phone: [facility] 10-06-2023 11:20-0500 Respiratory rate 16 /min Dr. Yennifer Johnson Work Phone: [facility] 10-06-2023 11:20-0500 SaO2% (BldA) [Mass fraction] 96 % Dr. Yennifer Johnson Work Phone: [facility] 10-06-2023 11:20-0500 Systolic blood pressure 100 mm[Hg] Dr. Yennifer Johnson Work Phone: [facility] 09-27-2023 13:05-0500 Body mass index (BMI) [Ratio] 27.8 kg/m2 Dr. Yennifer Johnson Work Phone: [facility] 09-27-2023 13:05-0500 Body temperature 98.4 [degF] Dr. Yennifer Johnson Work Phone: [facility] 09-27-2023 13:05-0500 Body weight 71.[address] Yennifer Johnson Work Phone: [facility] 09-27-2023 13:05-0500 Diastolic blood pressure 80 mm[Hg] Dr. Yennifer Johnson Work Phone: [facility] 09-27-2023 13:05-0500 Heart rate 77 /min Dr. Yennifer Johnson Work Phone: [facility] 09-27-2023 13:05-0500 Respiratory rate 16 /min Dr. Yennifer Johnson Work Phone: [facility] 09-27-2023 13:05-0500 SaO2% (BldA) [Mass fraction] 98 % Dr. Yennifer Johnson Work Phone: [facility] 09-27-2023 13:05-0500 Systolic blood pressure 120 mm[Hg] Dr. Yennifer Johnson Work Phone: [facility] 07-12-2023 09:13-0400 Body mass index (BMI) [Ratio] 27.4 kg/m2 Dr. Yennifer Johnson Work Phone: [facility] 07-12-2023 09:13-0400 Body weight 70.[address] Yennifer Johnson Work Phone: [facility] 07-12-2023 09:13-0400 Diastolic blood pressure 84 mm[Hg] Dr. Yennifer Johnson Work Phone: [facility] 07-12-2023 09:13-0400 Heart rate 69 /min Dr. Yennifer Johnson Work Phone: [facility] 07-12-2023 09:13-0400 Respiratory rate 18 /min Dr. Yennifer Johnson Work Phone: [facility] 07-12-2023 09:13-0400 SaO2% (BldA) [Mass fraction] 98 % Dr. Yennifer Johnson Work Phone: [facility] 07-12-2023 09:13-0400 Systolic blood pressure 129 mm[Hg] Dr. Yennifer Johnson Work Phone: [facility] 02-24-2023 13:25-0400 Body temperature 98.5 [degF] Dr. Yennifer Johnson Work Phone: [facility] 02-24-2023 13:25-0400 Diastolic blood pressure 77 mm[Hg] Dr. Yennifer Johnson Work Phone: [facility] 02-24-2023 13:25-0400 Heart rate 67 /min Dr. Yennifer Johnson Work Phone: [facility] 02-24-2023 13:25-0400 Respiratory rate 16 /min Dr. Yennifer Johnson Work Phone: [facility] 02-24-2023 13:25-0400 SaO2% (BldA) [Mass fraction] 99 % Dr. Yennifer Johnson Work Phone: [facility] 02-24-2023 13:25-0400 Systolic blood pressure 138 mm[Hg] Dr. Yennifer Johnson Work Phone: [facility] 02-24-2023 06:15-0400 Body height 160.[address] Yennifer Johnson Work Phone: [facility] 02-24-2023 06:15-0400 Body mass index (BMI) [Ratio] 28 kg/m2 Dr. Yennifer Johnson Work Phone: [facility] 02-24-2023 06:15-0400 Body weight [address] Yennifer Johnson Work Phone: [facility] 07-27-2022 13:39-0400 Body height 160.[address] Yennifer Johnson Work Phone: [facility] 07-27-2022 13:39-0400 Body mass index (BMI) [Ratio] 28.7 kg/m2 Dr. Yennifer Johnson Work Phone: [facility] 07-27-2022 13:39-0400 Body temperature 97.5 [degF] Dr. Yennifer Johnson Work Phone: [facility] 07-27-2022 13:39-0400 Body weight 73.[address] Yennifer Johnson Work Phone: [facility] 07-27-2022 13:39-0400 Diastolic blood pressure 80 mm[Hg] Dr. Yennifer Johnson Work Phone: [facility] 07-27-2022 13:39-0400 Heart rate 83 /min Dr. Yennifer Johnson Work Phone: [facility] 07-27-2022 13:39-0400 Respiratory rate 14 /min Dr. Yennifer Johnson Work Phone: [facility] 07-27-2022 13:39-0400 SaO2% (BldA) [Mass fraction] 98 % Dr. Yennifer Johnson Work Phone: [facility] 07-27-2022 13:39-0400 Systolic blood pressure 130 mm[Hg] Dr. Yennifer Johnson Work Phone: [facility] 07-10-2022 10:57-0400 Body mass index (BMI) [Ratio] 28.7 kg/m2 Dr. Yennifer Johnson Work Phone: [facility] Work Phone: 07-10-2022 10:57-0400 Body temperature 97.2 [degF] Dr. Yennifer Johnson Work Phone: [facility] Work Phone: 07-10-2022 10:57-0400 Body weight 73.[address] Yennifer Johnson Work Phone: [facility] Work Phone: 07-10-2022 10:57-0400 Diastolic blood pressure 80 mm[Hg] Dr. Yennifer Johnson Work Phone: [facility] Work Phone: 07-10-2022 10:57-0400 Heart rate 71 /min Dr. Yennifer Johnson Work Phone: [facility] Work Phone: 07-10-2022 10:57-0400 Respiratory rate 16 /min Dr. Yennifer Johnson Work Phone: [facility] Work Phone: 07-10-2022 10:57-0400 SaO2% (BldA) [Mass fraction] 98 % Dr. Yennifer Johnson Work Phone: [facility] Work Phone: 07-10-2022 10:57-0400 Systolic blood pressure 122 mm[Hg] Dr. Yennifer Johnson Work Phone: [facility] Work Phone: 07-01-2022 08:03-0400 Body mass index (BMI) [Ratio] 28.8 kg/m2 Dr. Yennifer Johnson Work Phone: [facility] Work Phone: 07-01-2022 08:03-0400 Body temperature 98.3 [degF] Dr. Yennifer Johnson Work Phone: [facility] Work Phone: 07-01-2022 08:03-0400 Body weight 73.[address] Yennifer Johnson Work Phone: [facility] Work Phone: 07-01-2022 08:03-0400 Diastolic blood pressure 80 mm[Hg] Dr. Yennifer Johnson Work Phone: [facility] Work Phone: 07-01-2022 08:03-0400 Heart rate 85 /min Dr. Yennifer Johnson Work Phone: [facility] Work Phone: 07-01-2022 08:03-0400 Respiratory rate 18 /min Dr. Yennifer Johnson Work Phone: [facility] Work Phone: 07-01-2022 08:03-0400 SaO2% (BldA) [Mass fraction] 98 % Dr. Yennifer Johnson Work Phone: [facility] Work Phone: 07-01-2022 08:03-0400 Systolic blood pressure 130 mm[Hg] Dr. Yennifer Johnson Work Phone: [facility] Work Phone: 06-24-2022 14:49-0400 Body height 160.[address] Yennifer Johnson Work Phone: [facility] Work Phone: 06-24-2022 14:49-0400 Body mass index (BMI) [Ratio] 28.8 kg/m2 Dr. Yennifer Johnson Work Phone: [facility] Work Phone: 06-24-2022 14:49-0400 Body weight 73.[address] Yennifer Johnson Work Phone: [facility] Work Phone: 06-24-2022 14:49-0400 Diastolic blood pressure 79 mm[Hg] Dr. Yennifer Johnson Work Phone: [facility] Work Phone: 06-24-2022 14:49-0400 Heart rate 82 /min Dr. Yennifer Johnson Work Phone: [facility] Work Phone: 06-24-2022 14:49-0400 Respiratory rate 18 /min Dr. Yennifer Johnson Work Phone: [facility] Work Phone: 06-24-2022 14:49-0400 SaO2% (BldA) [Mass fraction] 97 % Dr. Yennifer Johnson Work Phone: [facility] Work Phone: 06-24-2022 14:49-0400 Systolic blood pressure 131 mm[Hg] Dr. Yennifer Johnson Work Phone: [facility] Work Phone: 06-09-2022 14:55-0400 Body height 160.[address] Yennifer Johnson Work Phone: [facility] Work Phone: 06-09-2022 14:55-0400 Body mass index (BMI) [Ratio] 28.3 kg/m2 Dr. Yennifer Johnson Work Phone: [facility] Work Phone: 06-09-2022 14:55-0400 Body temperature 97.9 [degF] Dr. Yennifer Johnson Work Phone: [facility] Work Phone: 06-09-2022 14:55-0400 Body weight 72.[address] Yennifer Johnson Work Phone: [facility] Work Phone: 06-09-2022 14:55-0400 Diastolic blood pressure 82 mm[Hg] Dr. Yennifer Johnson Work Phone: [facility] Work Phone: 06-09-2022 14:55-0400 Heart rate 80 /min Dr. Yennifer Johnson Work Phone: [facility] Work Phone: 06-09-2022 14:55-0400 Respiratory rate 14 /min Dr. Yennifer Johnson Work Phone: [facility] Work Phone: 06-09-2022 14:55-0400 SaO2% (BldA) [Mass fraction] 98 % Dr. Yennifer Johnson Work Phone: [facility] Work Phone: 06-09-2022 14:55-0400 Systolic blood pressure 134 mm[Hg] Dr. Yennifer Johnson Work Phone: [facility] Work Phone: 05-04-2022 18:49-0400 Diastolic blood pressure 74 mm[Hg] [facility] Work Phone: 05-04-2022 18:49-0400 Heart rate 74 /min [facility] Work Phone: 05-04-2022 18:49-0400 Respiratory rate 16 /min [facility] Work Phone: 05-04-2022 18:49-0400 Systolic blood pressure 132 mm[Hg] [facility] Work Phone: 05-04-2022 16:54-0400 Body height 160.02 cm [facility] Work Phone: 05-04-2022 16:54-0400 Body mass index (BMI) [Ratio] 30.4 kg/m2 [facility] Work Phone: 05-04-2022 16:54-0400 Body temperature 97.1 [degF] [facility] Work Phone: 05-04-2022 16:54-0400 Body weight 77.9 kg [facility] Work Phone: 05-04-2022 16:54-0400 SaO2% (BldA) [Mass fraction] 100 % [facility] Work Phone: Encounters Encounter Date Encounter Type Care Provider Facility Start: 04-26-2025 End: 04-26-2025 Patient encounter procedure Karlie CHRISTIAN [facility] Work Phone: Start: 04-26-2025 End: 04-26-[address] Yennifer Johnson MD Work Phone: -[facility] Start: 03-24-2025 End: 03-24-[address] Yennifer Johnson MD Work Phone: [facility] Work Phone: Start: 03-24-2025 End: 03-24-2025 Patient encounter procedure Larry H Roof [facility] Work Phone: Start: 03-24-2025 End: 03-24-2025 ambulatory [facility] Facility:[facility] Start: 10-24-2024 End: 10-24-2024 ambulatory [facility] Facility:[facility] Start: 10-21-2024 End: 10-21-2024 ambulatory Karlie Johnson NP Facility:[facility] Start: 08-07-2024 Encounter for genera l adult medical examination without abnormal findings [facility] Start: 07-10-2024 End: 07-10-2024 ambulatory [facility] Facility:[facility] Start: 07-10-2024 End: 07-10-2024 ambulatory [facility] Facility:[facility] Start: 06-15-2024 End: 06-15-2024 ambulatory [facility] Facility:[facility] Start: 04-03-2024 End: 04-04-2024 Subsequent hospital visit by physician Tin West MD Work Phone: [facility] Comment on above: Arthritis of left kn ee (Primary Dx); Urinary tract infection without hematuria, site unspecified Start: 03-21-2024 End: 03-21-2024 [facility] Start: 03-21-2024 End: 03-21-2024 Encounter for other preprocedural examination [facility] Start: 03-21-2024 End: 03-21-2024 ambulatory [facility] Start: 03-21-2024 End: 03-21-2024 Encounter for other preprocedural examination [facility] Start: 03-17-2024 ambulatory [facility] Start: 02-25-[address] Odessa Johnson MD Work Phone: [facility] Comment on above: The patient complain [...] / Non-visit Dr. Roz Johnson Work Phone: [facility] Work Phone: Start: 01-17-2024 Non-patient / Non-visit Dr. Roz Johnson Work Phone: [facility] Start: 01-17-2024 End: 01-17-[address] Yennifer Johnson Work Phone: [facility] Work Phone: Start: 01-17-2024 End: 01-17-[address] [facility] Work Phone: Start: 12-27-2023 Non-patient / Non-visit Dr. Roz Johnson Work Phone: [facility] Work Phone: Start: 12-27-2023 Non-patient / Non-visit Dr. Roz Johnson Work Phone: [facility] Start: 12-27-2023 End: 12-27-[address] [facility] Work [facility]: Start: 12-20-[address] Elder Johnson [facility] Work Phone: Start: 12-16-2023 End: 12-16-[address] Yennifer Johnson Work Phone: [facility] Work Phone: Start: 12-16-2023 End: 12-16-[address] Yennifer Johnson Work Phone: [facility] Work Phone: Start: 10-21-2023 End: 10-21-[address] Yennifer Johnson Work Phone: [facility] Work Phone: Start: 10-21-2023 End: 10-21-[address] Yennifer Johnson Work Phone: [facility]-Outpatient Breast Imaging Work Phone: Start: 10-06-2023 End: 10-06-[address] Yennifer Johnson Work Phone: [facility] Work Phone: Start: 09-27-2023 End: 09-27-2023 Encounter for general adult medical examination without abnormal findings Dr. Yennifer Johnson Work Phone: [facility] Start: 09-27-2023 End: 09-27-[address] Yennifer Johnson Work Phone: [facility] Work Phone: Start: 07-12-2023 End: 07-12-[address] Yennifer Johnson Work Phone: [facility] Work Phone: Start: 07-03-2023 End: 07-03-[address] Yennifer Johnson Work Phone: [facility] Work Phone: Start: 07-03-2023 End: 07-03-[address] Yennifer Johnson Work Phone: [facility] Work Phone: Start: 05-05-2023 End: 05-05-[address] Yennifer Johnson Work Phone: [facility] Work Phone: Start: 05-05-2023 End: 05-05-[address] Yennifer Johnson Work Phone: [facility]-Physical Therapy Work Phone: Start: 04-06-2023 End: 04-06-[address] Yennifer Johnson Work Phone: [facility] Work Phone: Start: 03-26-[address] Robert Johnson Work Phone: [facility]Physical Therapy Start: 03-16-2023 End: 03-16-[address] Yennifer Johnson Work Phone: [facility] Work Phone: Start: 03-16-2023 End: 03-16-[address] Yennifer Johnson Work Phone: [facility]Laboratory Start: 03-09-2023 End: 03-09-[address] Yennifer Johnson Work Phone: [facility] Start: 02-26-2023 End: 02-26-[address] Yennifer Johnson Work Phone: [facility] Start: 02-24-2023 Non-patient / Non-visit Dr. Roz Johnson Work Phone: [facility] Start: 02-24-2023 End: 02-24-2023 Admission to same day surgery center Dr. Yennifer Johnson Work Phone: [facility] Start: 02-24-2023 End: 02-24-[address] Yennifer Johnson Work Phone: [facility] Work Phone: Start: 02-04-2023 End: 02-04-[address] Yennifer Johnson Work Phone: [facility] Start: 02-02-2023 End: 02-02-2023 ambulatory Dr. Yennifer Johnson Work Phone: [facility] Work Phone: Start: 02-02-2023 End: 02-02-[address] Yennifer Johnson Work Phone: [facility] Start: 01-19-2023 End: 01-19-[address] Yennifer Johnson Work Phone: [facility] Start: 10-31-2022 End: 10-31-[address] Yennifer Johnson Work Phone: [facility] Work Phone: Start: 10-31-2022 End: 10-31-[address] Yennifer Johnson Work Phone: [facility]-Laboratory Start: 09-28-2022 End: 09-28-[address] Yennifer Johnson Work Phone: [facility] Work Phone: Start: 09-28-2022 End: 09-28-[address] Yennifer Johnson Work Phone: [facility]-Outpatient Breast Imaging Start: 08-06-2022 End: 08-06-[address] Yennifer Johnson Work Phone: [facility] Start: 07-28-2022 End: 07-28-[address] Yennifer Johnson Work Phone: [facility] Work Phone: Start: 07-28-2022 End: 07-28-[address] Yennifer Johnson Work Phone: [facility] Start: 07-27-2022 End: 07-27-[address] Yennifer Johnson Work Phone: [facility] Start: 07-10-2022 End: 07-10-[address] Yennifer Johnson Work Phone: [facility] Start: 07-01-[address] Elder Johnson Work Phone: [facility]-Cardiovascula r Services Start: 07-01-2022 End: 07-01-2022 Encounter for general adult medical examination without abnormal findings Dr. Yennifer Johnson Work Phone: [facility] Start: 07-01-2022 End: 07-01-2022 Non-patient / Non-visit Dr. Yennifer Johnson Work Phone: [facility] Start: 06-24-2022 End: 06-24-[address] Yennifer Johnson Work Phone: [facility] Work Phone: Start: 06-24-2022 End: 06-24-[address] Yennifer Johnson Work Phone: [facility] Start: 06-09-2022 End: 06-09-[address] Yennifer Johnson Work Phone: [facility] Start: 06-09-2022 End: 06-09-[address] Yennifer Johnson Work Phone: [facility] Start: 05-15-2022 End: 05-15-2022 Patient encounter procedure [facility]-Laboratory Start: 05-04-2022 End: 05-04-2022 Emergency department patient visit [facility]-Emergency Department Start: 07-08-2021 Patient encounter status [facility] Start: 04-08-2021 Patient encounter status [facility] Procedures Date Procedure Procedure Detail Performing Clinician Start: 04-04-2024 Urinalysis microscop ic panel - Urine Qualitative by Automated Keshawn Stevenson BAND AID MACHINE OPERATOR-[employer] Work Phone: Start: 04-04-2024 Urnls dip stick/tabl et reagent auto microscopy Keshawn Stevenson BAND AID MACHINE OPERATOR-CRIMPING PRESS OPERATOR Work Phone: Start: 04-04-2024 Radiologic exam ches t single view Keshawn Stevenson BAND AID MACHINE OPERATOR-CRIMPING PRESS OPERATOR Work Phone: Start: 04-04-2024 Basic metabolic pane l calcium total Tin West MD Work Phone: Start: 04-03-2024 Radiologic examinati on knee 1/2 views Tin eWst MD Work Phone: Start: 04-03-2024 PULSE OXIMETRY, [...] Influenza vaccination Influenz a Vaccine (Season Ended) [facility] Start: 04-11-2024 End: 04-04-2025 Basic metabolic 2000 panel - Serum or Plasma Basic metabolic panel Lab Routine Arthritis of left knee Urinary tract infection without hematuria, site unspecified Expected: 04/11/2024 (Approximate), Expires: 04/04/2025 [facility] Work Phone: Comment on above: Expected: 04/11/2024 (Approximate), Expires: 04/04/2025 Start: 04-11-2024 End: 04-04-2025 CBC panel - Blood by Automated count CBC Lab Routine Arthritis of left knee Urinary tract infection without hematuria, site unspecified Expected: 04/11/2024 (Approximate), Expires: 04/04/2025 [facility] Work Phone: Comment on above: Expected: 04/11/2024 (Approximate), Expires: 04/04/2025 Start: 12-16-2023 Evaluation of diagno stic study results [facility] Start: 06-25-2023 COVID-19 Vaccine ( season) COVID-19 Vaccine ( season) [facility] Start: 03-09-2023 Patient referral [facility] Work Phone: Start: 02-24-2023 Anes open/surg arthroscopic proc knee joint nos ANESTH KNEE JOINT SURGERY [facility] Start: 02-24-2023 Arthrs kne surg w/meniscectomy med/lat w/shvg KNEE ARTHROSCOPY/SURGERY [facility] Start: 02-24-2023 Injection aa&/strd femoral nerve NJX AA&/STRD FEMORAL NRV IMG [facility] Start: 02-24-2023 Notification of physician [facility] Start: 02-24-2023 Application of device [facility] Start: 02-24-2023 Application of ice collar, cap or bag [facility] Start: 02-24-2023 Assessment of risk o f venous thromboembolism [facility] Start: 02-24-2023 Catheterization of vein [facility] Start: 02-24-2023 Deep breathing and coughing exercises [facility] Start: 02-24-2023 Following clinical pathway protocol [facility] Start: 02-24-2023 Gait training procedure [facility] Start: 02-24-2023 Incentive spirometry [facility] Start: 02-24-2023 Introduction of urin jose c catheter [facility] Start: 02-24-2023 End: 02-24-2023 Patient discharge [facility] Start: 02-24-2023 Patient education [facility] Start: 02-24-2023 Provision of activit y privileges [facility] Start: 02-24-2023 Taking patient vital signs [facility] Start: 02-24-2023 Vital signs measurements [facility] Start: 02-24-2023 End: 02-24-2023 [facility] Start: 02-24-2023 Medication education [facility] Start: 06-09-2022 Patient referral [facility] Work Phone: Start: 2020 RSV patient s and/or patients aged 60+ years (1 - 1-dose 60+ series) RSV patients and/or patients aged 60+ years (1 - 1-dose 60+ series) [facility] Start: 01-14-2016 DTaP/Tdap/Td Vaccine s (2 - Tdap) DTaP/Tdap/Td Vaccines (2 - Tdap) [facility] Start: 2010 Zoster Vaccines (1 of 2) Zoste r Vaccines (1 of 2) [facility] Start: 2000 Screening for malign ant neoplasm of breast Mammogram [facility] Start: 1978 Diabetes mellitus screening Diabetes Screening [facility] Start: 1978 Hepatitis C [facility]: 1966 Pneumococcal Vaccine : 65+ Years (1 of 2 - PCV) Pneumococcal Vaccine: 65+ Years (1 of 2 - PCV) [facility] Start: 1966 Pneumococcal Vaccine : Pediatrics (0 to 5 Years) and At-Risk Patients (6 to 64 Years) (1 of 2 - PCV) Pneumococcal Vaccine: Pediatrics (0 to 5 Years) and At-Risk Patients (6 to 64 Years) (1 of 2 - PCV) [facility] Start: 1961 MMR Vaccines (1 of 1 - Standard series) MMR Vaccines (1 of 1 - Standard series) [facility] Start: 1960 HIV screening HIV Screening [facility] Start: 1960 Lipid panel Lipid Panel [facility] Start: 1960 Screening for malign ant neoplasm of colon [facility] Start: 1960 Yearly Adult Physical Yearly Adult P hysical [facility] 24 Hour ECG [facility] End: 04-04-2024 Bacteria identified in Urine by Culture [facility] Work Phone: Comment on above: Once (Lab) for 1 Occ urrences starting 04/04/2024 until 04/04/2024 Cardiac event recording [facility] Work Phone: Electrocardiogram, 12-lead PRN ACS symptoms Electrocardiogram, 12-lead PRN ACS symptoms ECG Routine As needed until discontinued starting 04/03/2024 [facility] Work Phone: Comment on above: As needed until disc ontinued starting 04/03/2024 Electrocardiogram, 12-lead PRN ACS symptoms Electrocardiogram, 12-lead PRN ACS symptoms ECG Routine 04/04/2024 7:42 AM EDT [facility] Work Phone: End: 04-04-[address] [facility] Work Phone: Comment on above: Once for 1 Occurrenc es starting 04/04/2024 until 04/04/2024 End: 04-04-2024 Rondon Catheter Removal Rondon Catheter Removal Procedures Routine Once for 1 Occurrences starting 04/04/2024 until 04/04/2024 [facility] Work Phone: Comment on above: Once for 1 Occurrenc es starting 04/04/2024 until 04/04/2024 End: 04-03-2024 Incentive spirometry Instruct Incentive spirometry Instruct Respiratory Care Routine Once for 1 Occurrences starting 04/03/2024 until 04/03/2024 [facility] Service Area Work Phone: Comment on above: Once for 1 Occurrenc es starting 04/03/2024 until 04/03/2024 MG Breast - bilatera l Screening [facility] Work Phone: Patient Education [facility] Work Phone: Patient referral [facility] Work Phone: End: 04-04-2024 Urinalysis complete W Reflex Culture panel - Urine [facility] Area Work Phone: Comment on above: Once (Lab) for 1 Occ urrences starting 04/04/2024 until 04/04/2024 US Carotid arteries [facility] Immunizations Immunization Date Immunization Notes Care Provider Liz pierce 08-31-2022 influenza virus vaccine, unspecified formulation Tin West MD Work Phone: [facility] Work Phone: 06-17-2021 Covid (Pfizer) [facility] Payers Date Payer Category Payer Self-pay [id number] 2023 Unknown [id number] 2017 Unknown [id number] 2005 Unknown [id number] 1960 Unknown [id number] 2.16.8 [id number] 1960 Unknown [id number] 2.16.8 [id number] 1960 Unknown [id number] 2.16.8 [id number] Medicare [id number] [id number] Unknown [id number] 2.16.8 [id number] Unknown [id number] 2.16.8 [id number] Unknown [id number] 2.16.8 [id number] Unknown [id number] 2.16.8 [id number] Unknown [id number] 2.16.8 [id number] Unknown [id number] 2.16.8 [id number] Unknown [id number] 2.16.8 [id number] Unknown [id number] 2.16.8 [id number] Social History Date Type Detail Facility Start: 05-04-2022 End: 12-16-2023 Tobacco smoking status [facility] Unknown if ever smoked [facility] Start: 07-18-2019 Non-smoker [facility] Start: 1960 Sex Assigned At Female [facility] Start: 12-16-2023 End: 03-21-2024 Tobacco smoking status ARIS Ex-smoker [facility] Work Phone: Start: 02-23-1980 End: 02-23-1996 History of tobacco use Current smoker [facility] Work Phone: Start: 02-23-1980 End: 02-23-1996 History of tobacco use Cigarette Smoker [facility] Work Phone: Start: 03-21-2024 End: 04-03-2024 Cigarettes smoked current (pack per day) - Reported 0.4 [facility] Start: 03-21-2024 Tobacco use and exposure Smokeless tobacco non-user [facility] Work Phone: Start: 04-03-2024 Alcoholic beverage intake Current drinker of alcohol (finding) [facility] Work Phone: Start: 04-03-2024 B1300 Health Literacy [facility] How often do you nee d to have someone help you when you read instructions, pamphlets, or other written material from your doctor or pharmacy [SILS] Never [facility] Has the electric, gas, oil, or water company threatened to shut off services in your home in past 12Mo No [facility] Work Phone: Are you now , , , , never or living with a partner? [facility] Work Phone: How often to you hav e a drink containing alcohol? Never [facility] Work Phone: Do you feel stress - tense, restless, nervous, or anxious, or unable to sleep at night because your mind is troubled all the time - these days [OSQ] Not at all [facility] Work Phone: (I/We) worried whether (my/our) food would run out before (I/we) got money to buy more. Never true [facility] Work Phone: Start: 03-21-2024 Alcohol Comment Glass of wine maybe once a month [facility] Work Phone: Start: 03-19-2024 Gender identity Identifies as female gender (finding) [facility] Work Phone: Start: 03-24-2024 End: 04-03-2024 Exposure to SARS-CoV-2 (event) Not sure [facility] NEGATED: Highlighted row [facility] Medical Equipment Procedure Code Equipment Code [...] Patella, Triathl on, Asymmetric, Size A32 - [id number] Start: 04-03-2024 Component, Ps Femoral, P3, Beaded W/Pa, Left - [id number] Start: 04-03-2024 Baseplate, Triathlon Tritanium, Size 3, 44mm - [id number] Start: 04-03-2024 Size 3, 11mm Triathlon Ps Tibial Insert - [id number] Start: 04-03-2024 Goals Date Patient Goal Desired Activity /State Mental Status Date Assessment Result Facility 02-24-2023 Cognitive function Level Of Cons ciousness Awake;Appropriate;Follows Commands;Drowsy [facility] Work Phone: 02-24-2023 Cognitive function Voice/Name [facility] Work Phone: Clinical Notes 02-24-2023 to 04-26-2025 Note Date & Type Note Facility 04-26-2025 Progress note Note Date/Time April 26, 2025 1:29pm [facility] [address] [place] [address]. [address] [place] [address] OFFICE VISIT Date of Service: 04/26/25 MR#: [id number] Acct: [id number] Name: LEEANN CROCKETT Rep #: [id number] : 1960 Provider: GINO Johnson Age/Sex: 65/F [facility] Status: Signed HPI HPI History of Present [...] Monitor Intake Visit Reasons: 1 Y FU Brokerage Clerk Required: No Accompanied by: Self Is patient [...] updated, as necessary. Follow Up: 3 Months (DEPUTY HARBORMASTER/PA) Coding Level of Care Code Off vis,est,level 4 Diagnoses Paroxysmal atrial fibrillation I48.0 Mixed hyperlipidemia E78.2 Palpitations R00.2 Dyspnea on exertion R06.09 Coding Level of Care Code Off vis,est,level 4 Diagnoses Paroxysmal atrial fibrillation I48.0 Mixed hyperlipidemia E78.2 Palpitations R00.2 Dyspnea on exertion R06.09 Clinical Quality Measures Falls Risk Screening/Assistive Devices Have you fallen in the past year?: No 04/26/25 2889 <Electronically signed by Karlie Johnson NP DEPUTY HARBORMASTER-C> Date _ Karlie Johnson NP DEPUTY HARBORMASTER-C Cosigner Signature: Date (if applicable) CC: Dr. Yennifer Johnson MD ~ [facility] Work Phone: 1(898) 494-310607-03-2025 Evaluation note* Diagnosis Onset Date Resolution Status Admit Date Dyspnea on exertion acute April 26, 2025 12:56pm Paroxysmal atrial fibrillation acute April 26, 2025 12:56pm Mixed hyperlipidemia chronic April 26, 2025 12:56pm Palpitations chronic April 26 12:56pm [facility] Work Phone: 1(494) 810-177407-03-2025 Progress [facility]. [address] [place], [place] [address] OFFICE VISIT Date of Service: 04/26/25 MR#: [id number] Acct: [id number] Name: LEEANN CROCKETT Rep #: [id number] : 1960 Provider: GINO Johnson Age/Sex: 65/F Location[place] [facility] Status: Signed HPI HPI History of Present [...] Monitor Intake Visit Reasons: 1 Y FU Brokerage Clerk Required: No Accompanied by: Self Is patient [...] updated, as necessary. Follow Up: 3 Months (DEPUTY HARBORMASTER/PA) Coding Level of Care Code Off vis,est,level 4 Diagnoses Paroxysmal atrial fibrillation I48.0 Mixed hyperlipidemia E78.2 Palpitations R00.2 Dyspnea on exertion R06.09 Coding Level of Care Code Off vis,est,level 4 Diagnoses Paroxysmal atrial fibrillation I48.0 Mixed hyperlipidemia E78.2 Palpitations R00.2 Dyspnea on exertion R06.09 Clinical Quality Measures Falls Risk Screening/Assistive Devices Have you fallen in the past year?: No 04/26/25 1329 DEPUTY HARBORMASTER DEPUTY HARBORMASTER-C> Date _ Karlie Johnson DEPUTY HARBORMASTER DEPUTY HARBORMASTER-C Cosigner Signature: Date (if applicable) CC: Dr. Yennifer Johnson MD ~ [facility]06-11-2024 History of Present illness Narrative* [...] VCs for safe sequencing provided. Outcome Measures: [facility] Basic Mobility Turning from your back to [...] completion of functional mobility. * Keshawn Stevenson, BAND AID MACHINE OPERATOR-CRIMPING PRESS OPERATOR - 04/04/2024 11:59 AM EDT Celeste Crockett [...] am INDICATION: Signs/Symptoms:leukocytosis. COMPARISON: None. ACCESSION NUMBER(S): [id number] ORDERING CLINICIAN: KESHAWN STEVENSON TECHNIQUE: Single AP view chest FINDINGS: Cardiac silhouette is within normal limits. No infiltrate or effusion identified. Visualized osseous structures demonstrate glenohumeral joint osteoarthritis bilaterally. Impression: 1. No acute process MACRO: None Signed by: Rafael Shepard 04/04/2024 9:46 AM Dictation workstation: Spiration Physical Exam Vitals reviewed. Constitutional: Appearance: Normal [...] am INDICATION: Signs/Symptoms:leukocytosis. COMPARISON: None. ACCESSION NUMBER(S): [id number] ORDERING CLINICIAN: KESHAWN STEVENSON TECHNIQUE: Single AP view chest FINDINGS: Cardiac silhouette is within normal limits. No infiltrate or effusion identified. Visualized osseous structures demonstrate glenohumeral joint osteoarthritis bilaterally. 1. No acute process MACRO: None Signed by: Rafael Shepard 04/04/2024 9:46 AM Dictation workstation:[id number] XR knee left 1-2 views Result Date: 04/03/2024 Interpreted By: Herman Marquez, STUDY: XR KNEE LEFT 1-2 VIEWS; 04/03/2024 10:27 am INDICATION: Signs/Symptoms:Post-op knee. COMPARISON: None. ACCESSION NUMBER(S): [id number] ORDERING CLINICIAN: TIN WEST FINDINGS: Components of left knee arthroplasty are in anatomic alignment. Postoperative soft tissue gas. New left knee arthroplasty in anatomic alignment. MACRO: None Signed by: Herman Marquez 04/03/2024 11:33 AM Dictation workstation: [id number] Assessment/Plan Principal Problem: Arthritis of left knee [...] Yellow, Dark-Yellow Appearance, Urine Clear Clear Specific [place], Urine 1.011 1.005 - 1.035 pH, Urine [...] Therapy OT Treatment Patient Name: Leeann CORTESN: [id number] Today's Date: 04/04/2024 Time Calculation Start Time: [...] Up in chair, Alarm off, caregiver present (desktop support technician entering) OT Assessment Results: Decreased ADL [...] gown LE Dressing LE Dressing Adaptive Equipment: Refinery Operator Vapor Recovery Unit, Sock aide Sock Level of Assistance: Setup, [...] fair balance during grooming tasks sinkside Outcome Measures:[facility] Daily Activity Putting on and taking off [...] 1: VCs for safe sequencing Outcome Measures: [facility] Basic Mobility Turning from your back to [...] assist with completion of functional mobility. * ARDHA Quan - 04/04/2024 8:45 AM EDT [facility] sent referral information to pts choice [facility] via [employer] on 04/03, have not received any response. [facility] faxed information to them at [phone] this morning, contact information included on facesheet with request for response. Update: [facility] confirmed they can accept the pt. Hospitalist CRIMPING PRESS OPERATOR able to input corrected homecare order, this along with other dc information was sent to [facility]. 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 [facility] received message from hospitalist DEPUTY HARBORMASTER with information on which homecare agency pt would like at [place]. [facility] called pts room and spoke with her [...] PCP is Dr Johnson, prescriptions filled through [facility] [address], [facility]. Pt confirmed she would like [facility], referral sent via [employer], await response. 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 documented in this [facility] Work Phone: 1(753) 156-101206-11-2024 Hospital course Narrative* Tin West MD - [...] appointments. Tin West MD documented in this [facility] Work Phone: 1(646) 975-373306-11-2024 Nurse Note* Pao Foley RN - 04/04/2024 7:19 AM EDT Assumed care of patient. Patient is resting in bed, and talking on her phone. She was made aware that therapy would be in to work with her this morning. She will be up to a chair. Call light is in place will continue to monitor. [facility]06-11-2024 Nurse Note* Pao Foley RN - 04/04/2024 [...] iv fluids per order documented in this [facility] Work Phone: 1(708) 373-723906-11-2024 Plan of care note* Care Plan - [...] ability to cope with hospitalization/illness Outcome: Progressing [facility] Work Phone: 1(116) 525-180206-11-2024 Miscellaneous Notes* Care Plan - Alyssa Graham [...] detailed initial consult and physical exam in [facility] by Larisa Stevenson. I talked in detail with CRIMPING PRESS OPERATOR regarding assessment and plan. I agree with [...] dermatology disease. Atrial fibrillation Patient see regular physical plant manager. Continue with flecainide, Cardizem ,Eliquis. Left knee osteoarthritis Status post left total knee arthroplasty Continue with pain medication Physical therapy to evaluate her Hypertension Fairly controlled Patient is on Cardizem Hyperlipidemia Patient lives in [place]. Discussed with care coordination on the case [...] 10:00 AM EDT Patient received to [place] [facility]3 from OR. Anesthesia at bedside. Report received. Initial assessmentcomplete. VSS on Creative Producer. Patient resting appears comfortable. No signs or symptoms of painnoted. * Op Note - Tin West MD - 04/03/2024 8:24 AM EDT Arthroplasty Resurfacing Total Knee 34033 - WA ARTHRP KNE CONDYLE&PLATU MEDIAL&LAT COMPARTMENTS Operative Note Date: 04/03/2024 OR Location: [facility] OR Name: Leeann Alonso, : 1960, Age: 64 y.o., , Sex: female PRE Diagnosis Left knee osteoarthritis POST Diagnosis Same Procedures Left total knee arthroplasty subvastus approach Surgeons * Tin West - Primary Resident/Fellow/Other Recreation Technician: nitza Snowden joe Procedure Summary Implants: Styker Cemented Triathlon Total Knee: Femur size 3 posterior stabilized, size 3 primary tibial baseplate, size A32 N2Vac Patella, size 3x11 posterior stabilized N2Vac tibial bearing insert Anesthesia: LMA with adductor canal block ASA: III Anesthesia Staff: Anesthesiologist: Israel Corea MD ATMOSPHERIC PHYSICIST: ANNALEE Walsh Estimated Blood Loss: 50 mL Specimen: No specimens collected Staff: Striper Machine: Katy Rodgers RN Scrub Person: Tesfaye Wright; Cy Sorto; Nikki Gr Drains and/or Catheters: 2 Hemovac Tourniquet Times: Total Tourniquet Time Documented: Thigh (Left) - 49 minutes Total: Thigh (Left) - 49 minutes Findings: Patient had severe degenerative changes with medial joint space [id number] apposition and peripheral osteophyte formation. Absent ACL. [...] tracking and varus valgus stability throughout. The [place] patella tracked normally. I everted the patella [...] WELL. PHOTO TO CHART [facility] Work Phone: 1(300) 777-289706-10-2024 Nurse Note* Alyssa Graham RN - 04/03/2024 7:30 PM EDT Assumed care of pt this evening, sitting up in bed, at bedside, denies pain, dressing to left knee c/d/I, hemovac with small amt bloody drainage noted, iv fluids per order [facility]-10-2024 Note* Treatment Plan - Chante Ma MD - 04/03/2024 3:33 PM EDT Patient was seen and examined by me personally. He is see detailed initial consult and physical exam in epic by Larisa Stevenson. I talked in detail with CRIMPING PRESS OPERATOR regarding assessment and plan. I agree with [...] dermatology disease. Atrial fibrillation Patient see regular physical plant manager. Continue with flecainide, Cardizem ,Eliquis. Left knee osteoarthritis Status post left total knee arthroplasty Continue with pain medication Physical therapy to evaluate her Hypertension Fairly controlled Patient is on Cardizem Hyperlipidemia Patient lives in [place]. Discussed with care coordination on the case plan to discharge with home health care. Discussed with her family present in the room. [facility] Work Phone: 1(993) 381-865106-10-2024 Plan of care note* Care Plan - Joanne Shetty RN - 04/03/2024 2:04 PM EDT The patient's goals for the shift include No pain The clinical goals for the shift include No pain Over the shift, the patient did not make progress toward the following goals. [facility] Work Phone: 1([phone]) 307-802906-10-2024 Consult note* Keshawn Stevenson APRN-ABHISHEK - 04/03/2024 1:51 PM EDTAssociated Order(s): Inpatient consult to Medicine Inpatient consult to Medicine Consult performed by: Keshawn Stevenson APRN-CRIMPING PRESS OPERATOR Consult ordered by: Tin West MD Reason for consult: HTN, HLD, A fib Reason For Consult HTN, HLD, A fib History Of Present Illness Celeste Crockett is a 64 y.o. female with a past medical history of atrial fibrillation on apixaban, HLT, HTN, and aortic valve insufficiency who presented to [facility] for an anticipated left total knee replacement. [...] or vomiting. No abdominal discomfort. Admitted to [facility]. Medicine consulted for management of chronic medical conditions, HTN, A fib, HLD. Past Medical History She has a past medical history of Anxiety, Aortic valve insufficiency, Arthritis, Asthma ([facility]),Atrial fibrillation (Multi), Easy bruising, Heart disease (2018), [...] General: Well developed. NAD. HEENT: PERRL. EOMI. Kathryn conjunctiva. Trachea midline. Cardiovascular: S1, S2. RRR. [...] INDICATION: Signs/Symptoms:Post-op knee. COMPARISON: None. ACCESSION NUMBER(S): [id number] ORDERING CLINICIAN: TIN WEST FINDINGS: Components of left knee arthroplasty are in anatomic alignment. Postoperative soft tissue gas. New left knee arthroplasty in anatomic alignment. MACRO: None Signed by: Herman Marquez 04/03/2024 11:33 AM Dictation workstation: [id number] Assessment/Plan Atrial fibrillation Eliquis resumed per orthopedic [...] consult. Will continue to follow. SANDOVAL Marcos [facility] Work Phone: 1([phone]) 124-670606-10-2024 Consult note* SANDOVAL Marcos - 04/03/2024 1:51 [...] and aortic valve insufficiency who presented to [facility] for an anticipated left total knee replacement. Patient had been having left knee pain for years that became progressively worse. Reported difficulty standing and walking. She had been receiving injections however no longer effective. Recently fell due to instability. Patient underwent left total knee arthroplasty by Dr. Wets on 04/03/24. Does report pain behind her knee, mild nausea, and feeling lightheaded when she stood with therapy. Denies chest pain, shortness of breath, or vomiting. No abdominal discomfort. Admitted to [facility]. Medicine consulted for management of chronic medical [...] General: Well developed. NAD. HEENT: PERRL. EOMI. Kathryn conjunctiva. Trachea midline. Cardiovascular: S1, S2. RRR. [...] INDICATION: Signs/Symptoms:Post-op knee. COMPARISON: None. ACCESSION NUMBER(S): [id number] ORDERING CLINICIAN: TIN WEST FINDINGS: Components of left knee arthroplasty are in anatomic alignment. Postoperative soft tissue gas. New left knee arthroplasty in anatomic alignment. MACRO: None Signed by: Herman Marquez 04/03/2024 11:33 AM Dictation workstation: [id number] Assessment/Plan Atrial fibrillation Eliquis resumed per orthopedic [...] to follow. SANDOVAL Marcos [facility] Work Phone: [phone]) 309-929206-10-2024 Note* Perioperative Nursing Note - Odilia Desai RN - 04/03/2024 11:50 AM EDT Transport at bedside. Patient transferred to Division Status Stable. [facility]-10-[facility] Note* Perioperative Nursing Note - Odilia Desai RN - 04/03/2024 10:00 AM EDT Patient received to [place] [facility]3 from OR. Anesthesia at bedside. Report received. Initial assessmentcomplete. VSS on Creative Producer. Patient resting appears comfortable. No signs or symptoms of painnoted. [facility] Work Phone: 1([phone]) 236-258106-10-2024 Hospital Discharge instructions* Discharge Instructions* Tin West MD - 04/03/2024 9:41 AM EDT Dressing: remove after 1 week. Call if any drainage is coming out of the bandage. Weight bearing: weight bear as tolerated Showering: may shower Bathing: no tub bathing or pools Driving: no driving Call with any concerns. documented in this [facility] Work Phone: [phone]) 203-242406-10-2024 Note* Op Note - Tin West MD - 04/03/2024 8:24 AM EDT Arthroplasty Resurfacing Total Knee 60505 - WA ARTHRP KNE CONDYLE&PLATU MEDIAL&LAT COMPARTMENTS Operative Note Date: 04/03/2024 OR Location: [facility] [facility] OR Name: Leeann Alonso, : 1960, Age: 64 y.o., , Sex: female PRE Diagnosis Left knee osteoarthritis POST Diagnosis Same Procedures Left total knee arthroplasty subvastus approach Surgeons * Tin West - Primary Resident/Fellow/Other Recreation Technician: nitza Snowden joe Procedure Summary Implants: Styker Cemented Triathlon Total Knee: Femur size 3 posterior stabilized, size 3 primary tibial baseplate, size A32 N2Vac Patella, size 3x11 posterior stabilized N2Vac tibial bearing insert Anesthesia: LMA with adductor canal block ASA: III Anesthesia Staff: Anesthesiologist: Israel Corea MD ATMOSPHERIC PHYSICIST: Nikki Alex APRN-ATMOSPHERIC PHYSICIST Estimated Blood Loss: 50 mL Specimen: No specimens collected Staff: Striper Machine: Katy Rodgers RN Scrub Person: Tesfaye Wright; Cy Sroto; Nikki Gr Drains and/or Catheters: 2 Hemovac Tourniquet Times: Total Tourniquet Time Documented: Thigh (Left) - 49 minutes Total: Thigh (Left) - 49 minutes Findings: Patient had severe degenerative changes with medial joint space [id number] apposition and peripheral osteophyte formation. Absent ACL. [...] tracking and varus valgus stability throughout. The [place] patella tracked normally. I everted the patella [...] Attestation: I performed the procedure. Tin West [facility] Work Phone: 1([phone]) 110-687506-10-2024 Note* Pre-Procedure Note - Cynthia Lopez RN - 04/03/2024 7:57 AM EDT PREOP NERVE BLOCK COMPLETED, PATIENT TOLERATED WELL. PHOTO TO CHART [facility]06-10-2024 Attending History and physical note * Tin West MD - 04/03/2024 7:34 AM EDT H&P reviewed. The patient was examined and there are no changes to the H&P. Source Note - Nikki Zaragoza APRN-CRIMPING PRESS OPERATOR - 03/21/2024 1:45 PM EDT CPM/PAT Evaluation [...] 03/21/2024 under heading Epic notes. SANDOVAL Mcmullen [facility] Work Phone: [phone] History and physical note* Tin West MD [...] Last ECHO completed on 01/17/2024 scanned into [employer] on 03/21/2024 under headingEpic notes. Panic disorder CBC and BMP completed in PAT. EKG completed on 02/25/2024. Dr Gann's cardiac clearance was scanned into [employer] media scanned on 03/21/2024 under heading Epic notes. SANDOVAL Mcmullen documented in this [facility] Work Phone: 1(344) 111-423407-12-2023 Discharge summary Author Susan Zambrano [facility] May 05, 2023 5:28pm Note Date/Time May 05, 2023 5:28 pm [facility] Physical Therapy [facility] [address] [place] [address] / REHABILITATION SERVICES DISCHARGE SUMMARY MR#: [id number] Acct: [id number] Name: LEEANN CROCKETT Rep #: [id number] : 1960 63 From: Susan Zambrano [...] please feel free to call me at [phone]. Thank you for the referral of thispatient. Sincerely, JOYCE Siddiqui Balance/Gait/Functional tests Balance/Special Test Scores Lower Extremity Functional Score: 55 <Electronically signed by Susan Zambrano MPT> 05/05/23 1728 CC: Dr. Yennifer Johnson MD; Dr. Nate Rubio MD ~ Signed [facility] Work Phone: 1(486) 861-652505-03-[address] Rubio [facility] February 24, 2023 8:18am Note Date/Time February 24, 2023 8:18am [facility] Medical Records Department [address] [place] [address] Instructions for Home/Discharge Instructions 02/24/23 0817 MR#: [id number] Acct: [id number] Name: LEEANN CROCKETT Rep #:[id number] : 1960 62 From: Nate Rubio MD PCP: Dr. Yennifer Johnson MD Status:R EG [facility] Discharge Instructions Diet Discharge Diet: No restrictions [...] Yennifer Johnson MD [Primary Care Provider] - Ntae Rubio MD [Med Staff - Active Staff] - Disposition Disposition (needs filled in before D/C Order can be placed): Home, Self Care 02/24/23 0818<Electronically signed by Nate Rubio MD>Nate Rubio MD CC: Dr. Yennifer Johnson MD ~ Signed [facility] Work Phone: 1(620) 356-693605-03-2023 History and physical note Author Dr. Rubio [facility] February 24, 2023 7:11am Note Date/Time February 24, 2023 7:11am [facility] Medical Records Department [address] [place] [address] History & Physical Exam 02/24/23 0709 MR#: [id number] Acct: [id number] Name: LEEANN CROCKETT Rep #:[id number] : 1960 62 From: Nate Rubio MD PCP: Dr. Yennifer Johnson MD Status:R EG [facility] Location: [place] [address]1 HPI - General HPI Narrative LEEANN CROCKETT, is a 62 F who presents for left knee arthroscopy, MM and debridement. No changes to h and p. OK to proceed, left knee marked. RAB and post op WBAT with crutches discussed. Patient allergic to many narcotics, so getting spinal and block, will use tylenol and NSAIDs post op. No further questions. MR#: [id number] Acct: [id number] Name:LEEANN CERVANTES Rep #: [id number] : 1960 ? ? Provider: Dr. Nate Rubio MD Age/Sex:? 62/F ? ? [facility] Status: Signed Intake Vital Signs ? 07/27/2213:39 [...] Grind: Yes KNEE: normal gait Supplemental Info [facility] Imaging Services [address] [place] [address] Lower Ext Joint Only (Routine) MR#:? [id number] Acct: [id number] Name:? LEEANN CROCKETT Rep #: [id number] :?? 1960 F 62 ? From:? ? Maximilian Garnett MD PCP: Dr. Yennifer Johnson MD ? Status: REG CLI Study: Lower Ext Joint Only (Routine) ? Date of Exam: 02/02/23 Exam# [id number] ? Ordering Dr:? Nate Rubio MD STUDY:? [...] 23:49 EDT Reading Location ID and State: [address] [place] [address] , Service support? , ? Agree with [...] proceed.? We will have to get her physical plant manager Dr. Lopez clearance / opinion on when [...] surgery, and signed the informed consent documentation.? [facility] Medical History (Updated 02/17/23 @ 13:56 by [...] Johnson MD; Dr. Nate Rubio MD~ Signed [facility] Work Phone: 1(158) 963-516705-03-2023 Procedure [facility] Evaluation noteNo assessment information availableC[facility] Work Phone: Evaluation note* Diagnosis Onset Date Resolution Status Anxiety and depression acute Change in bowel habits acute Fecal incontinence acute GERD (gastroesophageal reflux disease) acute [facility] Work Phone: Evaluation note* Diagnosis Onset Date Resolution Status Anxiety and depression acute Change in bowel habits acute Fecal incontinence acute GERD (gastroesophageal reflux disease) acute Chest pressure acute Fatigue acute Paroxysmal atrial fibrillation acute Essential (primary) hypertension chronic Mixed hyperlipidemia chronic Nonrheumatic aortic valve insufficiency chronic Palpitations chronic [facility] Work Phone: Evaluation note* Diagnosis Onset [...] left knee pain non eactive Fall noneactive [facility] Work Phone: Evaluation note* Diagnosis Onset [...] of popliteal space [Poe], left knee acute [facility] Work Phone: Evaluation note* Diagnosis Onset Date Resolution Status Palpable mass of soft tissue of knee noneactive Posterior left knee pain non eactive Fall noneactive Osteoarthritis of left knee acute Synovial cyst of popliteal space [Poe], left knee acute [facility] Work Phone: Evaluation note* Diagnosis Onset Date Resolution Status Osteoarthritis of left knee acute Osteoarthritis of left knee acute Synovial cyst of popliteal space [Poe], left knee acute Tear of medial meniscus of left knee acute [facility] Work Phone: Evaluation note* Diagnosis Onset Date Resolution Status Osteoarthritis of left knee acute Osteoarthritis of left knee acute Synovial cyst of popliteal space [Poe], left knee acute Tear of medial meniscus of left knee acute Osteoarthritis of left knee acute Tear of medial meniscus of left knee acute [facility] Work Phone: Evaluation note* Diagnosis Onset [...] of medial meniscus of left knee acute [facility] Work Phone: Evaluation note* Diagnosis Onset [...] of medial meniscus of left knee acute [facility] Work Phone: Evaluation note* Diagnosis Onset Date Resolution Status Tear of medial meniscus of left knee acute [facility] Work Phone: Evaluation note* Diagnosis Onset Date Resolution Status Paroxysmal atrial fibrillation acute Essential (primary) hypertension chronic Mixed hyperlipidemia chronic Nonrheumatic aortic valve insufficiency chronic Preventative health care acu te [facility] Work Phone: Evaluation note* Diagnosis Onset Date Resolution Status Preventative health care acu te Fatigue acute Paroxysmal atrial fibrillation acute Dizziness chronic Essential (primary) hypertension chronic Mixed hyperlipidemia chronic Nonrheumatic aortic valve insufficiency chronic Palpitations chronic [facility] Work Phone: Evaluation note* Diagnosis Arthritis of left knee- Primary Arthritis of left knee Urinary tract infection without hematuria, site unspecified HTN (hypertension) Unspecified essential hypertension Hyperlipidemia Other and unspecified hyperlipidemia Valvular heart disease Endocarditis, valve unspecified, unspecified cause Atrial fibrillation (Multi) Atrial fibrillation Asthma (HHS-HCC) Unspecified asthma Anxiety Anxiety state, unspecified documented in this encounter [facility] Work Phone: [facility] Work Phone[facility] Work Phone: Reason for referral (narrative)No reason for referral information availableWEast [facility] Work Phone: Summary Purpose Family History [...] No May 04, 2022 4:57pm Power of Ophthalmic Photographer No May 04 4:57pm Advance Directive Response Recorded Date/ Time Advance Directives No May 26 6:34am Living Will No May 04, 2022 3:57pm Power of Ophthalmic Photographer No May 04 3:57pm Advance Directive Response Recorded Date/ Time Name of Medical Power of Ophthalmic Photographer - STEPHANIE RIVERA February 17, 2023 1:47pm Advance Directives No May 26 7:34am Living Will Yes February 17, 2023 1:47pm Power of Ophthalmic Photographer Yes February 17 1:47pm Advance Directive Response Recorded Date/ Time Advance Directives No May 26 7:34am Living Will Yes February 17, 2023 1:47pm Power of Ophthalmic Photographer Yes February 17 1:47pm Advance Directive Response Recorded Date/ Time Advance Directives No May 26 6:34am Living Will Yes October 06 10:45am Power of Ophthalmic Photographer Yes October 06, 2023 10:45am Advance Directive Response Recorded Date/ Time Advance Directives No May 26 7:34am Living Will Yes October 06 11:45am Power of Ophthalmic Photographer Yes October 06, 2023 11:45am Date Activated [...] Diagnoses Arthritis of left knee Keshawn Stevenson, BAND AID MACHINE OPERATOR-CRIMPING PRESS OPERATOR [address] [place] [address] Referral ID Status Reason Start Date Expiration Date Visits Requested Visits Authorized [id number] Pending Review Specialty Services Required 04/04/2024 04/04/2025 999 999 Additional Source Comments INFORMATION SOURCE (unrecogn ized section and content) DATE CREATED AUTHOR 05/23/2020 [facility] DATE CREATED AUTHOR AUTHOR'S ORGANIZ ATION 03/26/2024 [facility] DATE CREATED AUTHOR AUTHOR'S ORGANIZ ATION 04/07/2024 [facility] DATE CREATED AUTHOR AUTHOR'S ORGANIZ ATION 04/26/2025 [facility] Goals (unrecognized section and content) Goals may [...] Attending Provider, Referring Provider Active Karlie Johnson DEPUTY HARBORMASTER, DEPUTY HARBORMASTER-C Other Provider Active Team Status: Inactive Member Role Status Dates Dr. Yennifer Johnson MD Primary Care Provider Active Nate Rubio MD Attending Provider Active Team Status: Inactive Member Role Status Dates Dr. Yennifer Johnson MD Primary Care Provider Active Karlie Johnson DEPUTY HARBORMASTER, DEPUTY HARBORMASTER-C Attending Provider, Referring P rovider Active Team Status: Inactive Member Role Status Dates Dr. Yennifer Johnson MD Primary Care Provider, Refer ring Provider Active Karlie Johnson DEPUTY HARBORMASTER, DEPUTY HARBORMASTER-C Attending Provider Active Team Status: Inactive Member [...] MD Primary Care Provider Active Karlie Johnson DEPUTY HARBORMASTER, DEPUTY HARBORMASTER-C Attending Provider, Referring P rovider Active Team Status: Active Member Role Status Dates Dr. Yennifer Johnson MD Primary Care Provider Active Dr. Salazar Sim MD Attending Provider Active Karlie Johnson DEPUTY HARBORMASTER, DEPUTY HARBORMASTER-C Referring Provider Active Team Status: Active Member Role Status Dates Dr. Yennifer Johnson MD Primary Care Provider Active Karlie Johnson DEPUTY HARBORMASTER, DEPUTY HARBORMASTER-C Attending Provider Active Team Status: Active Member Role Status Dates Dr. Yennifer Johnson MD Primary Care Provider Active Dr. Imtiaz Mccracken MD Attending Provider Active Team Status: Inactive Member Role Status Dates Dr. Yennifer Johnson MD Primary Care Provider Active Start: March 24, 2025 End: March 24, 2025 Larry Rodriguez DEPUTY HARBORMASTER, DEPUTY HARBORMASTER-C Attending Provider Active S tart: March 24, 2025 End: March 24, 2025 Larry Rodriguez DEPUTY HARBORMASTER, DEPUTY HARBORMASTER-C Referring Provider Active S tart: March 24, 2025 End: March 24, 2025 Team Status: Active Member Role/Relationship Status Dates Dr. Yennifer Johnson MD Family Provider Active Dr. Yennifer Johnson MD Primary Care Provider Active Team Status: Inactive Member Role/Relationship Status Dates Dr. Yennifer Johnson MD Primary Care Provider Active Start: March 24, 2025 End: March 24, 2025 Larry Rodriguez DEPUTY HARBORMASTER, DEPUTY HARBORMASTER-C Attending Provider Active S tart: March 24, 2025 End: March 24, 2025 Larry Rodriguez DEPUTY HARBORMASTER, DEPUTY HARBORMASTER-C Referring Provider Active S tart: March 24, 2025 End: March 24, 2025 Team Status: Inactive Member Role/Relationship Status Dates Dr. Yennifer Johnson MD Primary Care Provider Active Start: April 26, 2025 End: April 26, 2025 Dr. Yennifer Johnson MD Referring Provider Active Start: April 26, 2025 End: April 26, 2025 Karlie Johnson DEPUTY HARBORMASTER, DEPUTY HARBORMASTER-C Attending Provider Active Start: April 26, 2025 End: April 26, 2025 Team Status: Active Member Role/Relationship Status Dates Dr. Yennifer Johnson MD Primary Care Provider Active Start: April 26, 2025 Karlie Johnson NP, DEPUTY HARBORMASTER-C Attending Provider Active Start: April 26, 2025 Karlie Johnson NP, DEPUTY HARBORMASTER-C Referring Provider Active Start: April 26, 2025 Reason for Visit (unrecogniz ed section and content) Specialty Diagnoses / Procedures Referred By Arnie alvarez Referred To Contact Diagnoses Primary osteoarthritis of left knee LEFT KNEE OSTEOARTHRITIS Procedures WA ARTHRP KNE CONDYLE&PLATU MEDIAL&LAT COMPARTMENTS Arthroplasty Resurfacing Total Knee Tin West MD [address] [facility] [address] [place] [address] [place] [address] [place] [address] Referral ID Status Reason Start Date Expiration Date Visits Re quested Visits Authorized [id number] 1 1 Scheduled Active and Recently Administ [...] Prophylaxis 0809 (Given - Provider: Nikki Alex APRN-ATMOSPHERIC PHYSICIST) ceFAZolin in dextrose (iso-os) (Ancef) IVPB 2 [...] (Continued by Anesthesia - Provider: Nikki Alex APRN-ATMOSPHERIC PHYSICIST)0915 (New Bag - Provider: Nikki Alex APRN-ATMOSPHERIC PHYSICIST)1212 (Stopped - Provider: Pao Foley RN) lactated [...] Above: 92% 1230 (Start - Provider: Héctor Simental, SUGAR SAMPLER) PRN Medication Order 04/02/2024 04/03/2024 04/04/2024 [email or web address] [...] BE BASED ON THE PRIMARY CLINICAL RECORDS. [employer] [facility]. provides no warranty or guarantee of the accuracy or completeness of [phone] in [phone] [id number]
== END | disposition home or self-care (01) ==
LOC: LAB 13:26
PROVIDERS: PCP Internal Medicine; Referring Provider Nurse Practitioner Gerontology; Visit Provider Nurse Practitioner Gerontology
DX: R06.02 Shortness of breath (principal); R00.2 Palpitations
CPT/HCPCS: 36415; 80048; 83735; 83880; 84443; 85025

== ENCOUNTER → 2025-05-11 | Outpatient (CLI) | payer BC, SELFPAY ==
--- OUTSIDE RECORDS SUMMARY | 2025-05-11 06:55 | XMS RPT_ITS | CCD ---
Author Organization [facility] Providers Care Pole Incisor Operator Name Role Phone Dr. Yennifer Johnson Primary Care Provider [phone] Dr. Yennifer Johnson Attending Provider [phone] Dr. Yennifer Johnson Referring Provider [phone] Alex AIR POLLUTION ANALYST, AIR POLLUTION ANALYST-C Karlie Attending Provider Dr. Cyrus Lopez Attending [...] [phone] MD Nate Rubio Referring Provider [phone] MD Nate Rubio Other Provider [phone] Yennifer Johnson Primary Care Provider [phone] Dr. Yennifer Johnson Referring Provider [phone] MD Nate Rubio Attending Provider [phone] Dr. Yennifer Johnson Primary Care Provider [phone] Dr. Yennifer Johnson Referring Provider [phone] Alex AIR POLLUTION ANALYST, AIR POLLUTION ANALYST-C Karlie Attending Provider Dr. Yennifer Johnson Attending Provider [phone] Pb NAVAS PA Sarabjit Nelson Attending Provider Dr. Yennifer Johnson Primary Care Provider [phone] Dr. Yennifer Johnson Referring Provider [phone] Alex MAYER, AIR POLLUTION ANALYST-C Karlie Attending Provider Dr. Yennifer Johnson Primary Care Provider [phone] Dr. Yennifer Johnson Attending Provider [phone] Dr. Yennifer Johnson Referring Provider [phone] Pb NAVAS, [place] Sarabjit Nelson Attending Provider Alex MAYER, AIR POLLUTION ANALYST-C Karlie Attending Provider Dr. Salazar Sim Attending Provider [phone] Alex MAYER, AIR POLLUTION ANALYST-C Karlie Referring Provider Dr. Imtiaz Mccracken Attending Provider [phone] Unavailable Primary Care Provider Unavailabl e [facility] Admitting Unavailable [facility] Attending Unavailable Dr. Yennifer Johnson MD Primary Care Provider Larry Taylor Attending Provider [phone] Larry Taylor Referring Provider [phone] Dr. Yennifer Johnson MD Referring Provider [phone] Alex [place] Attending Provider [phone] Alex MAYER-C, Karlie Referring Provider [phone] Dr. Cy Peterson MD Attending Provider Oleghe, Efewongbe Primary Care Unavailable Oleghe, Efewongbe Attending Unavailable Oleghe, Efewongbe Referring Unavailable Oleghe, Efewongbe Primary Care Unavailable Oleghe, Efewongbe Attending Unavailable Oleghe, Efewongbe Referring Unavailable Alex AIR POLLUTION ANALYST, Karlie Attending Unavailable Alex AIR POLLUTION ANALYST, Karlie Referring Unavailable Oleghe, Efewongbe Primary Care Unavailable Oleghe, Efewongbe Primary Care Unavailable Alex AIR POLLUTION ANALYST, Karlie Attending Unavailable Oleghe, Efewongbe Referring Unavailable Oleghe, Efewongbe Primary Care Unavailable Cy Peterson Attending Unavailable Oleghe, Efewongbe Referring Unavailable Oleghe, Efewongbe Primary Care Unavailable Alex AIR POLLUTION ANALYST, Karlie Referring Unavailable Alex AIR POLLUTION ANALYST, Karlie Attending Unavailable Oleghe, Efewongbe Primary Care Unavailable Alex AIR POLLUTION ANALYST, Karlie Referring Unavailable Alex AIR POLLUTION ANALYST, Karlie Attending Unavailable Oleghe, Efewongbe Primary Care Unavailable Michael AIR POLLUTION ANALYST, Larry Tejeda Attending Unavailable Michael AIR POLLUTION ANALYSTLarry H Referring Unavailable Oleghe, Efewongbe Primary Care Unavailable Oleghe, Efewongbe Attending Unavailable Oleghe, Efewongbe Referring Unavailable Oleghe, Efewongbe Primary Care Unavailable Tin West Attending Unavailable Tin West Referring Unavailable Allergies Allergy Classification Reported Allergen(s) Allergy Type Date of Onset Reaction(s) Facility (19 sources) Adhesive agent; Translations: [adhesive] Propensity to adverse reactions 2 Other [facility] Comment on above: FROM ELECTRODE ADHES AMANDA (18 sources) Bee pollen Drug Allergy 1 Anaphylaxis [facility] (20 sources) Codeine; Translations: [CODEINE] Drug Allergy 5 Anaphylaxis [facility] (20 sources) HYDROmorphone; Translations: [HYDROMORPHONE] Drug Allergy 9 Anaphylaxis [facility] Comment on above: DIZZINESS, DRY MOUTH (20 sources) Niacin; Translations: [NIACIN] Drug Allergy 7 Hives, Rash, Swelling [facility] (19 sources) oxyCODONE; Translations: [oxycodone HCl] Drug Allergy 1 Anaphylaxis [facility] (19 sources) Propoxyphene; Translations: [propoxyphene napsylate] Drug Allergy 1 Angioedema [facility] (20 sources) Simvastatin; Translations: [SIMVASTATIN] Drug Allergy 1 Other [facility] (18 sources) dog dander Allergy to substance 2 Swelling [facility] (19 sources) Opioids - Morphine Analogues; Translations: [Opioids - Morphine Analogues] Allergy to substance 1 Anaphylaxis [facility] (19 sources) perfume; Translations: [perfume] Allergy to substance 1 swelling [facility] (19 sources) venom-honey bee Allergy to substance 6 Anaphylaxis [facility] (3 sources) atorvastatin; Translations: [ATORVASTATIN CALCIUM] Drug Allergy 6 Other [facility] (3 sources) Grass pollen; Translations: [GRASS POLLEN] Propensity to adverse reactions to drug (disorder) 6 Cough [facility] (3 sources) house dust allergenic extract; Translations: [HOUSE DUST] Drug Allergy 6 Cough [facility] (3 sources) Mold Extract; Translations: [MOLD] Drug Allergy 6 Cough [facility] (3 sources) Morphine; Translations: [MORPHINE] Drug Allergy 9 Cough, Dizziness, Headache, Itching, Other, Palpitations, Shortness of breath [facility] (3 sources) oxyCODONE; Translations: [OXYCODONE] Drug Allergy 4 Cough, Dizziness, Headache, Itching, Other, Rash, Shortness of breath, Swelling [facility] (3 sources) Propoxyphene; Translations: [PROPOXYPHENE] Drug Allergy 4 Shortness of breath, Cough, Dizziness [facility] (3 sources) rosuvastatin; Translations: [ROSUVASTATIN CALCIUM] Drug Allergy 7 Other [facility] (3 sources) wasp venom; Translations: [WASP VENOM] Propensity to adverse reactions to drug (disorder) 6 Anaphylaxis [facility] (2 sources) BEE VENOM PROTEIN (HONEY BEE); Translations: [BEE VENOM PROTEIN (HONEY BEE)] Propensity to adverse reactions to drug (disorder) 6 [facility] Repository (1 source) ALLERGIES NOT ON FILE; Translations: [ALLERGIES NOT ON FILE] Propensity to adverse reactions (disorder) [facility] 3 Repository (4 sources) Ketorolac Drug Allergy 4 Nausea [facility] Comment on above: swelling in face (1 source) Bee pollen Drug allergy (disorder) 5 [facility] Repository (1 source) Codeine Drug Allergy 5 [facility] Repository (1 source) HYDROmorphone Drug Allergy 5 [facility] Repository (1 source) Ketorolac Drug Allergy 5 [facility] Repository (1 source) Niacin Drug Allergy 5 [facility] Repository (1 source) Simvastatin Drug Allergy 5 [facility] Repository (1 source) venom-honey bee Drug allergy (disorder) 5 [facility] Repository (1 source) dog dander Drug allergy (disorder) 5 [facility] Repository Medications Current Medications Medication Drug Class(es) [...] 5 mg PO TWICE A DAY 180 3 November 08, 2023 10:00am November 06, 2024 9:24am cefuroxime 500 mg oral tablet (2 sources) Cephalosporin Antibacterial Start: 04-04-2024 End: 04-09-2024 take 1 tablet by mouth twice daily cefuroxime (Ceftin) 500 mg tablet Indications: Urinary Tract Infection Take 1 tablet (500 mg) by mouth 2 times a day 10 tablet 04/04/2024 04/09/2024 Active disability placard (18 sources) Start: 11-13-2020 disability misael card Active [...] years docusate sodium 100 mg oral capsule (20 sources) Start: 04-03-2024 End: 04-19-2024 take 1 [...] 28, 2019 12:00am December 21, 2019 10:12am ibuprofen 600 mg oral tablet (20 sources) [...] HOURS NEEDED as needed for Pain Score 1-10/10 60 0 July 28, 2019 12:00am December [...] Phase II/On Unit Multivitamin (Daily Multi-Vitamin) tablet (6 sources) Start: 12-16-2023 Multivitamin (Daily Multi-Vitamin) tablet [...] O2 Sat Above: 92% polyethylene glycol 3350 91611 mg powder for oral solution (1 source) [...] as needed for Sob &/Or Wheezing 90 August 27, 2021 11:51am August 06, 2022 [...] mg / valsartan 320 mg oral tablet (7 sources) Dihydropyridine Calcium Channel Bull, Angiotensin 2 [...] mg / clavulanate 125 mg oral tablet (18 sources) Penicillin-class Antibacterial Start: 08-27-2021 End: 09-02-2021 Amoxicillin-Pot Clavulanate 875-125 mg tablet Discontinued 1 {tbl} PO Q12H 14 0 August 27, 2021 12:00am September 02, 2021 [...] 2018 1:42pm azithromycin 250 mg oral tablet (18 sources) Macrolide Antimicrobial Start: 01-10-2018 End: 01-15-2018 [...] 2022 9:22am benzonatate 200 mg oral capsule (7 sources) Non-narcotic Antitussive Start: 10-06-2023 End: 12-16-2023 take 1 capsule by mouth three times daily as needed for cough Benzonatate 200 mg capsule Discontinued 200 mg PO THREE TIMES A DAY as needed for cough 14 0 October 06, 2023 1:00am December 16, 2023 2:15pm budesonide 0.25 mg/ml inhalation suspension (18 sources) Corticosteroid Start: 07-28-2019 End: 06-20-2021 take [...] 200 mg (500 mg) -400 unit tablet (4 sources) Start: 08-06-2022 End: 12-16-2023 Calcium Carbonate-Vitamin [...] applesauce. cetirizine hydrochloride 10 mg oral capsule (18 sources) Histamine-1 Receptor Antagonist Start: 03-21-2016 End: [...] at Discharge) clopidogrel 75 mg oral tablet (18 sources) [id number] Platelet Inhibitor Start: 05-16-2018 End: 05-31-2018 take 1 tablet by mouth once daily Clopidogrel (Plavix) 75 mg tablet Discontinued 75 mg PO daily 30 3 May 16, 2018 12:00am May 31, 2018 3:08pm cyclobenzaprine hydrochloride 10 mg oral tablet (18 sources) Muscle Relaxant Start: 01-28-2017 End: 01-10-2018 take 1 tablet by mouth three times daily as needed for muscle spasms Cyclobenzaprine 10 MG tablet Discontinued 10 mg PO THREE TIMES A DAY as needed for Muscle Spasm 20 0 January 28, 2017 12:00am January 10, 2018 1:42pm dexamethasone 6 mg oral tablet (7 sources) Corticosteroid Start: 10-06-2023 End: 12-16-2023 take [...] release 24hr Discontinued 180 mg PO daily 30 May 12, 2018 12:00am May 26, 2018 10:23am Start: 04-18-2018 End: 05-12-2018 take 1 capsule by mouth once daily, then take 1 capsule by mouth every twenty-four hours Diltiazem Hcl (Cardizem Cd) 120 mg capsule,extended release 24hr Discontinued 120 mg PO daily 30 April 18, 2018 3:55pm May 12, 2018 2:10pm [id number] 0.3 ml EPINEPHrine 1 mg/ml auto-injector (20 sources) alpha-Adrenergic Agonist, beta-Adrenergic Agonist, Catecholamine Start: 04-08-2021 End: 08-06-2022 Epinephrine 0.3 mg/0.3 mL auto-injector Discontinued 0.3 mg IM every 5 to 15 minutes as needed for anaphylaxis 2 April 08, 2021 12:00am August 06, [...] tablet Discontinued 10 mg PO DAILY 90 November 08, 2023 10:06am November 06, 2024 [...] 9:19am November 29, 2024 9:12am Fluticasone Furoate-Vilanterol (18 sources) Corticosteroid, beta2-Adrenergic Agonist Start: 09-30-2017 End: [...] 2017 10:16pm furosemide 20 mg oral tablet (18 sources) Loop Diuretic Start: 01-10-2018 End: 04-18-2018 take 1 tablet by mouth once Furosemide (Lasix) 20 mg tablet Discontinued 20 mg PO ONCE January 10, 2018 12:00am April 18, 2018 3:48pm gemfibrozil 600 mg oral tablet (20 sources) Peroxisome Proliferator Receptor alpha Agonist Start: 08-25-2018 End: 04-26-2025 take 1 tablet by mouth twice daily Gemfibrozil 600 mg tablet Discontinued 0 .ROUTE .COMPLEX 180 1 April 13, 2025 8:14am April 26, 2025 1:26pm TAKE 1 TABLET [...] January 10, 2018 1:43pm hydroCHLOROthiazide 12.5 mg oral capsule (18 sources) Thiazide Diuretic Start: 07-28-2019 End: 12-21-2019 take 1 capsule by mouth once daily Hydrochlorothiazide 12.5 MG capsule Discontinued 12.5 mg PO DAILY 0 July 28, 2019 12:00am December 21, 2019 10:13am hydroCHLOROthiazide 12.5 mg / losartan potassium 50 mg oral tablet (20 sources) Thiazide Diuretic, Angiotensin 2 Receptor Bull Start: 10-28-2020 End: 11-08-2023 take 1 tablet by mouth once daily Losartan-Hydrochloroth iazide Discontinued 1 TABLET PO DAILY November 02, 2022 10:30am November 08, 2023 11:40am Start: 02-08-2018 End: 04-26-2025 take 1 tablet by mouth once daily Losartan-Hydrochlorothiazide 50-12.5 mg tablet Discontinued 0 .ROUTE .COMPLEX 90 December 01, 2024 5:18pm April 26, 2025 1:20pm TAKE 1 TABLET BY MOUTH EVERY DAY Start: 03-21-2016 End: 01-10-2018 Losartan-Hydrochlorothiazide 1 TAB tablet Discontinued 1 {tbl} PO DAILY March 21, 2016 12:00am January 10, 2018 1:43pm Start: 03-21-2016 End: 01-10-2018 take 1 tablet by mouth once daily Losartan-Hydrochlorothiazide Discontinue d 1 TABLET PO DAILY March 21, 2016 12:00am January 10, 2018 1:43pm LORazepam 0.5 mg oral tablet (17 sources) Benzodiazepine Start: 06-09-2022 End: 08-06-2022 take 1 tablet by mouth once daily as needed for anxiety Lorazepam 0.5 mg tablet Discontinued 0.5 mg PO DAILY as needed for anxiety June 09, 2022 12:00am August 06, 2022 9:22am Anxiety and depression Anxiety disorder, unspecified Depression, unspecified losartan potassium 50 mg oral tablet (18 sources) Angiotensin 2 Receptor Bull Start: 07-28-2019 End: 12-21-2019 take 1 tablet by mouth once daily Losartan 50 MG tablet Discontinued 50 mg PO DAILY July 28, 2019 12:00am December 21, 2019 [...] Nerve block Multivitamin,Tx-I duncan-Minerals (Complete Multivitamin) tablet (4 sources) Start: 09-30-2017 End: 01-10-2018 Multivitamin,Tx-Iron- Minerals [...] take 1 tablet by mouth once daily multivitamin,vg-kncu-jaeiulyq tablet Discontinued 1 TABLET PO daily September 30, 2017 1:00am January 10, 2018 1:43pm Lebeau-3 Fatty Acids (14 sources) Start: 01-10-2018 End: 05-24-2018 take 1000 mg by mouth once daily Lebeau-3 Fatty Acids Discontinued 1000 MG PO daily January 09, 2018 11:00pm May 24, 2018 1:40pm Start: 01-10-2018 End: 05-24-2018 take 1000 mg by mouth once daily Lebeau-3 Fatty Acids Discontinued 1000 MG PO daily January 10, 2018 12:00am May 24, 2018 2:40pm Lebeau-3 Fatty Acids 1,000 mg capsule (4 sources) Start: 01-10-2018 End: 05-24-2018 take 1 capsule by mouth once daily Lebeau-3 Fatty Acids 1,000 mg capsule Discontinued 1000 mg PO daily January 10, 2018 12:00am May 24, 2018 2:40pm polysaccharide iron complex 150 mg oral capsule (18 sources) Start: 07-28-2019 End: 12-21-2019 take 1 capsule by mouth once daily at mealtime Polysaccharide Iron Complex 150 MG capsule Discontinued 150 mg PO DAILY WITH MEALS July 28, 2019 12:00am December 21, 2019 10:14am potassium chloride 10 meq extended release oral tablet (18 sources) Start: 09-30-2017 End: 01-10-2018 take 1 [...] Preprocedure promethazine hydrochloride 25 mg oral tablet (18 sources) Phenothiazine Start: 07-28-2019 End: 12-21-2019 take [...] tablet Discontinued 0.25 mg PO AT BEDTIME March 19, 2020 9:33am August 06, 2022 9:21am administer 1-3 hours before bedtime sertraline 50 mg oral tablet (20 sources) Serotonin Reuptake Inhibitor Start: 06-09-2022 End: 08-06-2022 take 1 tablet by mouth once daily Sertraline 50 mg tablet Discontinued 50 mg PO DAILY 30 July 02, 2022 1:17pm August 06, 2022 9:22am Vitamin B Complex (B Complex-Vitamin B12) tablet (16 sources) Start: 06-24-2022 End: 12-16-2023 Vitamin B [...] Date Documented Da te Episodic/Chronic Acute bronchitis (18 sources) Acute bronchitis; Translations: [Acute bronchitis, unspecified] [...] dysrhythmias (20 sources) Palpitations; Translations: [Palpitations] Onset: 5 Episodic Comment on above: Patient's palpitatio ns coincide with benign PACs and PVCs on her recent 30-day event recorder. Complications of surgical procedures or medical care (18 sources) Non-healing surgical wound; Translations: [Other complications [...] initial encounter] 02-04-2023 Episodic Malaise and fatigue (20 sources) Fatigue; Translations: [Other fatigue] Episodic Neoplasms of unspecified nature or uncertain behavior (4 sources) Thrombocytosis; Translations: [Thrombocythemia] 05-02-2025 Episodic Comment on above: Mild, asymptomatic.D iscussed thrombocytosis, evaluation and management, indications for therapy.Since her platelets are mildly elevated, observation can be done. She agreed. Nonmalignant breast conditions (20 sources) Hypertrophy of breast; Translations: [Hypertrophy of breast] 07-24-2019 Episodic Nonspecific chest pain (20 sources) Chest pain; Translations: [Chest pain, unspecified] Episodic Osteoarthritis (20 sources) Osteoarthritis of left knee joint; Translations: [Unilateral primary osteoarthritis, left knee] Onset: 4 Chronic Other aftercare (4 sources) Follow-up status; Translations: [Encounter for other orthopedic aftercare] 04-11-2024 Episodic Other and ill-defined heart disease (18 sources) Left ventricular hypertrophy; Translations: [Cardiomegaly] 10-01-2017 Chronic Other circulatory disease (18 sources) H/O: atrial fibrillation; Translations: [Personal history of other diseases of the circulatory system] 05-12-2022 Episodic Other connective tissue disease (3 sources) Other specified soft tissue disorders; Translations: [Other disorders of soft tissue] Episodic Other connective tissue disease (10 sources) Synovial cyst of left popliteal space; Translations: [Synovial cyst of popliteal space [Poe], left knee] 08-06-2022 Episodic Other connective tissue disease (10 sources) Synovial cyst of popliteal space [Poe], left knee; Translations: [Synovial cyst of popliteal space] Episodic Other gastrointestinal disorders (3 sources) Alteration in bowel elimination; Translations: [Change in bowel habit] Episodic Other gastrointestinal disorders (17 sources) Incontinence of feces; Translations: [Full incontinence of feces] 06-09-2022 Episodic Other gastrointestinal disorders (3 sources) Change in bowel habit; Translations: [Other symptoms involving digestive system] Episodic Other gastrointestinal disorders (3 sources) Full incontinence of feces; Translations: [Full incontinence of feces] Episodic Other gastrointestinal disorders (14 sources) Altered bowel function; Translations: [Change in bowel habit] 06-09-2022 Episodic Other inflammatory condition of skin (18 sources) Intertrigo; Translations: [Erythema intertrigo] 07-24-2019 Episodic Comment on above: inframammary intertr igo Other lower respiratory disease (20 sources) Dyspnea on exertion; Translations: [Other forms of dyspnea] 05-16-2018 Episodic Other lower respiratory disease (18 sources) Cough; Translations: [Cough] 09-02-2021 Episodic Other lower respiratory disease (1 source) Shortness of breath; Translations: [Shortness of breath] Onset: 5 Episodic Other lower respiratory disease (1 source) Other forms of dyspnea; Translations: [Other forms of dyspnea] Onset: 5 Episodic Other non-traumatic joint disorders (18 sources) Shoulder pain; Translations: [Pain in unspecified shoulder] 07-24-2019 Episodic Comment on above: bilateral shoulder p ain from shoulder grooving from the weight of the breasts on her bra straps Other non-traumatic joint disorders (3 sources) Pain in left knee; Translations: [Pain in joint, lower leg] Episodic Other upper respiratory infections (18 sources) Upper respiratory infection; Translations: [Acute upper respiratory infection, unspecified] 08-27-2021 Episodic Analia-; endo-; and myocarditis; cardiomyopathy (except that caused by tuberculosis or sexually transmitted disease) (2 sources) Heart valve disorder; Translations: [Endocarditis, valve unspecified] Onset: 04-03-2024 Chronic Poisoning by nonmedicinal substances (18 sources) Allergic reaction caused by hymenoptera venom; Translations: [Toxic effect of venom of other arthropod, accidental (unintentional), initial encounter] 05-12-2022 Episodic Residual codes; unclassified (18 sources) Family history of breast cancer; Translations: [Family history of malignant neoplasm of breast] 07-24-2019 Episodic Residual codes; unclassified (4 sources) Postoperative state; Translations: [Other specified postprocedural states] 04-11-2024 Episodic Screening and history of mental health and substance abuse codes (18 sources) Ex-smoker; Translations: [Personal history of nicotine [...] conditions (not mental disorders or infectious disease) (19 sources) Patient encounter status; Translations: [Encounter for screening for malignant neoplasm of colon] Onset: 11-16-2024 07-08-2021 Episodic Residual codes; unclassified (18 sources) History of cardiac catheterization; Translations: [Other specified postprocedural states] Onset: 05-25-2018 05-26-2018 Episodic Comment on above: 2015 and 05/26/2018 vladimir Infante @ [facility]: normal coronaries Results Test Name Value Interpretation Reference Range Facility Oncology Visit Reporton Oncology Visit Report [facility] [place] [address] OFFICE VISIT Date of Service: 05/02/25 0900 MR#: [id number] Acct: [id number] Name: LEEANN CROCKETT Rep #: [id number] : 1960 From: Cy Peterson MD Age/Sex: 65/F [place] [facility] [place] Signed HPI Subjective Date of Service 05/02/25 Chief Complaint Referred for thrombocytosis. History of Present Illness 65y.o.woman was found to slight elevation of PLT and referred for evaluation. She denies bleeding disorders, anemia. [facility] Medical History Thrombocytosis High cholesterol Tear of medial meniscus of [...] DOES USE ASPIRIN DOES USE IBUPROFEN ROS Constitutional Constitutional: Reports systems reviewed and no addt'l complaints, except as documented Eyes Eyes: Reports systems reviewed and no addt'l complaints, except as documented ENT HEENT: Reports systems reviewed and no addt'l complaints, except as documented Cardiovascular Cardiovascular: Reports systems reviewed and no addt'l complaints, except as documented Respiratory/Chest Respiratory/Chest: Reports systems reviewed and no addt'l complaints, except as documented Gastrointestinal Gastrointestinal: Reports systems reviewed and no addt'l complaints, except as documented Genitourinary Genitourinary: Reports systems reviewed and no addt'l complaints, except as documented Musculoskeletal Musculoskeletal: Reports systems reviewed and no addt'l complaints, except as documented Integumentary Integumentary: Reports systems reviewed and no addt'l complaints, except as documented Neurologic Neurologic: Reports systems reviewed and no addt'l complaints, except as documented Psychiatric Psychiatric: Reports systems reviewed and no addt'l complaints, except as documented Endocrine Endocrinology: Reports systems reviewed and no addt'l complaints, except as documented Hematologic/Lymphatic Hematologic/Lymphatic: Reports systems reviewed and no addt'l complaints, except as documented Allergic/Immunologic Allergic/Immunologic: Reports systems reviewed and no addt'l complaints, except as documented Intake Vital Signs 04/26/25 13:01 05/02/25 09:01 Height 5 ft 2 in 5 ft 2 in Weight: 71.923 kg BMI 29.0 BP 124/68 H Blood Pressure Location Lt brachial Position Sitting Respiration 15 Pulse 67 Pulse Source Monitor Pulse Oximetry (%) 97 Oxygen Delivery Method room air (more content not included)... Normal [facility] Absolute lymphocyte countOrd ered By: Karlie Johnson on 04-26-2025 Lymphocytes Auto (Unsp spec) [#/Vol] 1.90 10*3/uL 0.83-4.51 [facility] Absolute neutrophil countOrd ered By: Karlie Johnson on 04-26-2025 Neutrophils (Bld) [#/Vol] 7.6 10*3/uL 2.0-7.7 [facility] Anion gap in Serum or Plasma Ordered By: Karlie Johnson on 04-26-2025 Anion gap [Moles/Vol] 11 mmol/L 5-15 [facility] Automated lymphocyte count a s percentage of total leukocytesOrdered By: Karlie Johnson on 04-26-2025 Lymphocytes/100 WBC Auto (Unsp spec) 17.5 % Low 19-41 [facility] BUN/creatinine ratioOrdered By: Karlie Johnson on 04-26-2025 Urea nitrogen/Creatinine [Mass ratio] 21.2 mg/mg High 10-20 [facility] Basic Metabolic Profile (BMP )on 04-26-2025 BUN/CRE 21.2 RATIO High 10-20 [facility] Comment on above: Performed By: #### L 100.0100, L500.2500, L501.5200, L501.9520, L503.7505 ####[facility] [address] [place], [address] Calcium [Mass/Vol] 9.8 mg/dL Normal 7.6-11.0 [facility] Comment on above: Performed By: #### L 100.0100, L500.2500, L501.5200, L501.9520, L503.7505 ####[facility] [address] [place], [address] Chloride [Moles/Vol] 102 mmol/L Normal 98-108 [facility] Comment on above: Performed By: #### L 100.0100, L500.2500, L501.5200, L501.9520, L503.7505 ####[facility] [address] [place], [address] CO2 [Moles/Vol] 26.5 mmol/L Normal 21.0-32.0 [facility] Comment on above: Performed By: #### L 100.0100, L500.2500, L501.5200, L501.9520, L503.7505 ####[facility] [address] [place], [address] Creatinine [Mass/Vol] 0.87 mg/dL Normal 0.70-1.20 [facility] Comment on above: Performed By: #### L 100.0100, L500.2500, L501.5200, L501.9520, L503.7505 ####[facility] [address] [place], [address] GAP 11 Normal 5-15 [facility] Comment on above: Performed By: #### L 100.0100, L500.2500, L501.5200, L501.9520, L503.7505 ####[facility] [address] [place], [address] GFR/1.73 sq M.predicted among non-blacks MDRD (S/P/Bld) [Vol rate/Area] 74 mL/min/{1.73_m2} Normal >60 [facility] Comment on above: Result Comment: mL/m in/1.73m2 CKD-EPI Creatinine Equation (2020) Performed By: #### L 100.0100, L500.2500, L501.5200, L501.9520, L503.7505 ####[facility] [address] [place], [address] Glucose [Mass/Vol] 97 mg/dL Normal 70-99 [facility] Comment on above: Performed By: #### L 100.0100, L500.2500, L501.5200, L501.9520, L503.7505 ####[facility] [address] [place], [address] Potassium [Moles/Vol] 3.7 mmol/L Normal 3.3-5.1 [facility] Comment on above: Performed By: #### L 100.0100, L500.2500, L501.5200, L501.9520, L503.7505 ####[facility] [address] [place], [address] Sodium [Moles/Vol] 139 mmol/L Normal 133-145 [facility] Comment on above: Performed By: #### L 100.0100, L500.2500, L501.5200, L501.9520, L503.7505 ####[facility] [address] [place], [address] Urea nitrogen [Mass/Vol] 18 mg/dL Normal 4-19 [facility] Comment on above: Performed By: #### L 100.0100, L500.2500, L501.5200, L501.9520, L503.7505 ####[facility] [address] [place], [address] Basophil percentageOrdered B y: Karlie Johnson on 04-26-2024 Basophils/100 WBC (Bld) 0.7 % 0-1 [facility] CBC W/Diff, Automatedon Absolute Lymph 1.90 X10 3/uL Normal 0.83-4.51 [facility] Comment on above: Performed By: #### L 100.0100, L500.2500, L501.5200, L501.9520, L503.7505 ####[facility] [address] [place], [address] Absolute Neut 7.6 X10 3/uL Normal 2.0-7.7 [facility] Comment on above: Performed By: #### L 100.0100, L500.2500, L501.5200, L501.9520, L503.7505 ####[facility] [address] [place], [address] Basophils/100 WBC (Bld) 0.7 % Normal 0-1 [facility] Comment on above: Performed By: #### L 100.0100, L500.2500, L501.5200, L501.9520, L503.7505 ####[facility] [address] [place], [address] Eosinophils/100 WBC (Bld) 2.2 % Normal 0-5 [facility] Comment on above: Performed By: #### L 100.0100, L500.2500, L501.5200, L501.9520, L503.7505 ####[facility] [address] [place], [address] Erythrocyte distribution width (RBC) [Ratio] 12.4 % Normal 11.6-14.6 [facility] Comment on above: Performed By: #### L 100.0100, L500.2500, L501.5200, L501.9520, L503.7505 ####[facility] [address] [place], [address] Hematocrit (Bld) [Volume fraction] 38.2 % Normal 37-47 [facility] Comment on above: Performed By: #### L 100.0100, L500.2500, L501.5200, L501.9520, L503.7505 ####[facility] [address] [place], [address] Hemoglobin (Bld) [Mass/Vol] 12.6 g/dL Normal 12.0-15.0 [facility] Comment on above: Performed By: #### L 100.0100, L500.2500, L501.5200, L501.9520, L503.7505 ####[facility] [address] [place], [address] IG% 0.600 Normal 0.0-0.9 [facility] Comment on above: Result Comment: IG% - Immature Granulocytes (promyelocytes, myelocytes and metamyelocytes) > 1% indicates that a LEFT SHIFT is Present. Performed By: #### L 100.0100, L500.2500, L501.5200, L501.9520, L503.7505 ####[facility] [address] [place], [address] Lymphocytes/100 WBC (Bld) 17.5 % Low 19-41 [facility] Comment on above: Performed By: #### L 100.0100, L500.2500, L501.5200, L501.9520, L503.7505 ####[facility] [address] [place], [address] MCH (RBC) [Entitic mass] 29.9 pg Normal 27.0-32.0 [facility] Comment on above: Performed By: #### L 100.0100, L500.2500, L501.5200, L501.9520, L503.7505 ####[facility] [address] [place], [address] MCHC (RBC) [Mass/Vol] 33.0 g/dL Normal 32-36 [facility] Comment on above: Performed By: #### L 100.0100, L500.2500, L501.5200, L501.9520, L503.7505 ####[facility] [address] [place], [address] MCV (RBC) [Entitic vol] 90.7 fL Normal 81-99 [facility] Comment on above: Performed By: #### L 100.0100, L500.2500, L501.5200, L501.9520, L503.7505 ####[facility] [address] [place], [address] Monocytes/100 WBC (Bld) 9.1 % Normal 0-10 [facility] Comment on above: Performed By: #### L 100.0100, L500.2500, L501.5200, L501.9520, L503.7505 ####[facility] [address] [place], [address] Neutrophils/100 WBC (Bld) 69.9 % Normal 47-70 [facility] Comment on above: Performed By: #### L 100.0100, L500.2500, L501.5200, L501.9520, L503.7505 ####[facility] [address] [place], [address] Nucleated RBC (Bld) [#/Vol] 0 10*3/uL Normal 0-5 [facility] Comment on above: Performed By: #### L 100.0100, L500.2500, L501.5200, L501.9520, L503.7505 ####[facility] [address] [place], [address] Platelet mean volume (Bld) [Entitic vol] 10.0 fL Normal 6.2-12.0 [facility] Comment on above: Performed By: #### L 100.0100, L500.2500, L501.5200, L501.9520, L503.7505 ####[facility] [address] [place], [address] Platelets (Bld) [#/Vol] 521 10*3/uL High 150-450 [facility] Comment on above: Performed By: #### L 100.0100, L500.2500, L501.5200, L501.9520, L503.7505 ####[facility] [address] [place], [address] RBC (Bld) [#/Vol] 4.21 10*6/uL Normal 4.2-5.4 [facility] Comment on above: Performed By: #### L 100.0100, L500.2500, L501.5200, L501.9520, L503.7505 ####[facility] [address] [place], [address] RDW SD 40.5 fl Normal 35.1-43.9 [facility] Comment on above: Performed By: #### L 100.0100, L500.2500, L501.5200, L501.9520, L503.7505 ####[facility] [address] [place], [address] WBC (Bld) [#/Vol] 10.9 10*3/uL Normal 4.4-11.0 [facility] Comment on above: Performed By: #### L 100.0100, L500.2500, L501.5200, L501.9520, L503.7505 ####[facility] [address] [place], [address] Carbon dioxide, total [Moles /volume] in Central venous bloodOrdered By: Karlie Johnson on 04-26-2025 CO2 [Moles/Vol] 26.5 mmol/L 21.0-32.0 [facility] Cardiology Visit Reporton Cardiology Visit Report [facility] [address] [place], [place] [address] OFFICE VISIT Date of Service: 04/26/25 MR#: [id number] Acct: [id number] Name: LEEANN CROCKETT Rep #: [id number] : 1960 Provider: GINO sesay Age/Sex: 65/F Location[facility] Status: Signed HPI HPI History of Present [...] Monitor Intake Visit Reasons: 1 Y FU Plastic Joint Maker Required: No Accompanied by: Self Is patient [...] the past year?: No PFSH Medical History (Reviewed 04/26/25 @ 13:09 by Karlie Johnson AIR POLLUTION ANALYST, AIR POLLUTION ANALYST-C) High cholesterol Tear of medial meniscus of left knee Osteoarthritis of left knee Synovial cyst of popliteal space [Poe], left knee Fecal incontinence Change in bowel habits GERD (gastroesophageal reflux disease) Anxiety and depression Wears glasses Arthritis Anemia Back pain Restless legs Heartburn Shortness of breath on exertion Leg cramps Hypertensi (more content not included)... Normal [facility] Chloride assayOrdered By: Tarik Johnson on 04-26-2025 Chloride [Moles/Vol] 102 mmol/L 98-108 [facility] Eosinophil percentageOrdered By: Karlie Johnson on 04-26-2025 Eosinophils/100 WBC (Bld) 2.2 % 0-5 [facility] Erythrocyte distribution wid th ratioOrdered By: Karlie Johnson on 04-26-2025 Erythrocyte distribution width (RBC) [Ratio] 12.4 % 11.6-14.6 [facility] Erythrocyte distribution wid th standard deviationOrdered By: Karlie Johnson on 04-26-2025 Erythrocyte distribution width (RBC) [Ratio] 40.5 fl 35.1-43.9 [facility] Glomerular filtration rate ( GFR) estimation/1.73 sq m using serum, plasma, or whole bOrdered By: Karlie Johnson on 04-26-2025 GFR/1.73 sq M.predicted among non-blacks MDRD (S/P/Bld) [Vol rate/Area] 74 mL/min/{1.73_m2} >60 [facility] Comment on above: mL/min/1.73m2 CKD-EP I Creatinine Equation (2020) Hematocrit Auto (Bld) [Volum e fraction]Ordered By: Karlie Johnson on 04-26-2025 Hematocrit (Bld) [Volume fraction] 38.2 % 37-47 [facility] Hemoglobin measurementOrdere d By: Karlie Johnson on 04-26-2025 Hemoglobin (Bld) [Mass/Vol] 12.6 g/dL 12.0-15.0 [facility] Immature granulocytes/100 WB C Auto (Bld)Ordered By: Karlie Johnson on 04-26-2025 Immature granulocytes/100 WBC (Bld) 0.600 % 0.0-0.9 [facility] Comment on above: IG% - Immature Granu locytes (promyelocytes, myelocytes and metamyelocytes) > 1% indicates that a LEFT SHIFT is Present. Iron measurement (mass/mass) Ordered By: Yennifer Johnson on 04-26-2025 Iron (Unsp spec) [Mass/Mass] 65 ug/dL 50-170 [facility] L503.7505on 04-26-2025 proBNP < 36 Normal <=900 [facility] Comment on above: Result Comment: Hear t Failure Unlikely: < 300 pg/mL Heart Failure Likely < 50 Years: > 450 pg/mL 50-75 Years: > 900 pg/mL >75 Years: > 1800 pg/mL Performed By: #### L 100.0100, L500.2500, L501.5200, L501.9520, L503.7505 ####[facility] [address] [facility] [address] [place], [place], [address] MCV (mean corpuscular volume ) determinationOrdered By: Karlie Johnson on 04-26-2025 MCV (RBC) [Entitic vol] 90.7 fL 81-99 [facility] Magnesiumon 04-26-2025 Magnesium [Mass/Vol] 2.5 mg/dL High 1.5-2.2 [facility] Comment on above: Performed By: #### L 100.0100, L500.2500, L501.5200, L501.9520, L503.7505 ####[facility] [address] [place], [place], [address] Magnesium measurement (mass/ volume)Ordered By: Karlie Johnson on 04-26-2025 Magnesium (Unsp spec) [Mass/Vol] 2.5 mg/dL High 1.5-2.2 [facility] Mean corpuscular hemoglobin (MCH) determinationOrdered By: Karlie Johnson on 04-26-2025 MCH (RBC) [Entitic mass] 29.9 pg 27.0-32.0 [facility] Mean corpuscular hemoglobin concentration (MCHC) determinationOrdered By: Karlie Johnson on 04-26-2025 MCHC (RBC) [Mass/Vol] 33.0 g/dL 32-36 [facility] Mean platelet volume determi nationOrdered By: Karlie Johnson on 04-26-2025 Platelet mean volume (Bld) [Entitic vol] 10.0 fL 6.2-12.0 [facility] Monocyte percentageOrdered B y: Karlie Johnson on 04-26-2025 Monocytes/100 WBC (Bld) 9.1 % 0-10 [facility] Natriuretic peptide.B prohor franklyn N-Terminal [Mass/volume] in Serum or PlasmaOrdered By: Karlie Johnson on 04-26-2025 Natriuretic peptide.B prohormone N-Terminal [Mass/Vol] < 36 pg/mL <900 [facility] Comment on above: Heart Failure Unlike ly: < 300 pg/mLHeart Failure Likely< 50 Years: > 450 pg/mL50-75 Years: > 900 pg/mL>75 Years: > 1800 pg/mL Neutrophil percentageOrdered By: Karlie Johnson on 04-26-2025 Neutrophils/100 WBC (Bld) 69.9 % 47-70 [facility] No Panel InformationOrdered By: Yennifer Johnson on 04-26-2025 Unsaturated Iron Binding Capacity 356 ug/dL 228-428 [facility] Nucleated red blood cell per centageOrdered By: Karlie Johnson on 04-26-2025 Nucleated RBC/100 WBC (Bld) [Ratio] 0 % 0-5 [facility] Platelet countOrdered By: Tarik Johnson on 04-26-2025 Platelets (Bld) [#/Vol] 521 10*3/uL High 150-450 [facility] Potassium measurement (mass/ volume)Ordered By: Karlie Johnson on 04-26-2025 Potassium (Unsp spec) [Mass/Vol] 3.7 mmol/L 3.3-5.1 [facility] RBC Auto (Bld) [#/Vol]Ordere d By: Karlie Johnson on 04-26-2025 RBC (Bld) [#/Vol] 4.21 10*6/uL 4.2-5.4 [facility] Serum creatinine measurement (mass/volume)Ordered By: Karlie Johnson on 04-26-2025 Creatinine [Mass/Vol] 0.87 mg/dL 0.70-1.20 [facility] Serum glucose measurement (m ass/volume)Ordered By: Karlie Johnson on 04-26-2025 Glucose [Mass/Vol] 97 mg/dL 70-99 [facility] Serum or plasma calcium kyree urement (mass/volume)Ordered By: Karlie Johnson on 04-26-2025 Calcium [Mass/Vol] 9.8 mg/dL 7.6-11.0 [facility] Serum or plasma ferritin terri surement (mass/volume)Ordered By: Yennifer Johnson on 04-26-2025 Ferritin [Mass/Vol] 69 ng/mL 22-378 [facility] Serum or plasma iron saturat ion measurement (mass fraction)Ordered By: Yennifer Johnson on 04-26-2025 Iron saturation [Mass fraction] 15.0 % 13-59 [facility] Serum or plasma urea nitroge n measurement (mass/volume)Ordered By: Karlie Johnson on 04-26-2025 Urea nitrogen [Mass/Vol] 18 mg/dL 4-19 [facility] Sodium levelOrdered By: Adali Johnson on 04-26-2025 Sodium [Moles/Vol] 139 mmol/L 133-145 [facility] TSH DL <= 0.005 mIU/L QnOrde red By: Karlie Johnson on 04-26-2025 TSH Qn 1.970 uIU/mL 0.300-4.200 [facility] Thyroid Stim Hormone (TSH)on 04-26-2025 TSH 1.970 uIU/mL Normal 0.300-4.200 [facility] Comment on above: Performed By: #### L 100.0100, L500.2500, L501.5200, L501.9520, L503.7505 ####[facility] [address] [place], [address] White blood cell (WBC) count Ordered By: Karlie Johnson on 04-26-2025 WBC (Bld) [#/Vol] 10.9 10*3/uL 4.4-11.0 [facility] Bilirubin directOrdered By: Larry Rodriguez on 03-24-2025 Bilirubin.direct [Mass/Vol] 0.14 mg/dL 0.00-0.30 [facility] Bilirubin, totalOrdered By: Larry Rodriguez on 03-24-2025 Bilirubin [Mass/Vol] 0.32 mg/dL 0.00-1.30 [facility] Calculated very low density lipoprotein (VLDL) cholesterol measurementOrdered By: Larry Rodriguez on 03-24-2025 Calculated very low density lipoprotein (VLDL) cholesterol measurement 22 mg/dL 5-40 [facility] LDL calc ser/plasOrdered By: Larry Rodriguez on 03-24-2025 Cholesterol in LDL [Mass/Vol] 98 mg/dL [facility] Comment on above: Cdvbwgdpos=824-282 m g/dL & Higher Ltgn=842 mg/dL or greater Laboratory - Chemistry and C hemistry - challengeOrdered By: Larry Rodriguez on 03-24-2025 AST [Catalytic activity/Vol] 18 U/L <32 [facility] Lipid Profileon 03-24-2025 CHOL:HDL 3.42 Normal [facility] Comment on above: Performed By: #### L 500.4100, L500.3400 #### [facility] [address] [place], [address] Cholesterol [Mass/Vol] 170 mg/dL Normal <=200 [facility] Comment on above: Result Comment: Chol esterol level, Desirable <200 mg/dL Borderline high cholesterol 200-239 mg/dL High cholesterol >=240 mg/dL Recommendations of the NCEP Adult Treatment Panel for the following risk-cutoff thresholds for the [place] population. Performed By: #### L 500.4100, L500.3400 #### [facility] [address] [place], [address] Cholesterol in HDL [Mass/Vol] 50 mg/dL Normal [facility] Comment on above: Result Comment: Alexandra onal Cholesterol Education Program (NCEP) guidelines: <40 mg/dL: Low HDL-cholesterol (major risk factor for CHD) >= 60 mg/dL: High HDL-cholesterol (negative risk factor for CHD) HDL-cholesterol is affected by a number of factors, e.g. smoking, exercise, hormones, sex and age. Performed By: #### L 500.4100, L500.3400 #### [facility] [address] [place], [address] Cholesterol in LDL [Mass/Vol] 98 mg/dL Normal [facility] Comment on above: Result Comment: Bord dzgwfy=869-822 mg/dL Higher Uamn=121 mg/dL or greater Performed By: #### L 500.4100, L500.3400 #### [facility] [address] [place], [address] Cholesterol in VLDL [Mass/Vol] 22 mg/dL Normal 5-40 [facility] Comment on above: Performed By: #### L 500.4100, L500.3400 #### [facility] [address] [place], [address] Triglyceride [Mass/Vol] 111 mg/dL Normal [facility] Comment on above: Result Comment: The drugs N-Acetylcysteine and Metamizole may falsely depress this assay. Normal range: <150 mg/dL Borderline High: 150-199 mg/dL High: 200-499 mg/dL Very High: >500 mg/dL Performed By: #### L 500.4100, L500.3400 #### [facility] [address] [place], [address] Liver Profileon 03-24-2025 Albumin [Mass/Vol] 4.5 g/dL Normal 3.4-4.8 [facility] Comment on above: Performed By: #### L 500.4100, L500.3400 #### [facility] [address] [place], [address] ALK PHOS 79 U/L Normal 35-104 [facility] Comment on above: Performed By: #### L 500.4100, L500.3400 #### [facility] [address] [place], [address] ALT [Catalytic activity/Vol] 16 U/L Normal <=34 [facility] Comment on above: Performed By: #### L 500.4100, L500.3400 #### [facility] [address] [place], [address] AST [Catalytic activity/Vol] 18 U/L Normal <=31 [facility] Comment on above: Performed By: #### L 500.4100, L500.3400 #### [facility] [address] [place], [address] Bilirubin [Mass/Vol] 0.32 mg/dL Normal 0.00-1.30 [facility] Comment on above: Performed By: #### L 500.4100, L500.3400 #### [facility] [address] [place], [address] Bilirubin.direct [Mass/Vol] 0.14 mg/dL Normal 0.00-0.30 [facility] Comment on above: Performed By: #### L 500.4100, L500.3400 #### [facility] [address] [place], [address] Globulin (S) [Mass/Vol] 2.9 g/dL Normal 2.2-4.2 [facility] Comment on above: Performed By: #### L 500.4100, L500.3400 #### [facility] [address] [place], [address] T PROT 7.4 g/dL Normal 5.9-8.4 [facility] Comment on above: Performed By: #### L 500.4100, L500.3400 #### [facility] [address] [place], [address] Screening total cholesterol/ high density lipoprotein (HDL) cholesterol ratioOrdered By: Larry Rodriguez on 03-24-2025 Cholesterol.total/Jennifer sterol in HDL [Mass ratio] 3.42 {ratio} [facility] Serum globulin measurementOr dered By: Larry Rodriguez on 03-24-2025 Globulin (S) [Mass/Vol] 2.9 g/dL 2.2-4.2 [facility] Serum or plasma alanine castañeda otransferase (ALT) measurementOrdered By: Larry Rodriguez on 03-24-2025 ALT [Catalytic activity/Vol] 16 U/L <35 [facility] Serum or plasma albumin kyree urement (mass/volume)Ordered By: Larry Rodriguez on 03-24-2025 Albumin [Mass/Vol] 4.5 g/dL 3.4-4.8 [facility] Serum or plasma alkaline tevin sphatase measurementOrdered By: Larry Rodriguez on 03-24-2025 ALP [Catalytic activity/Vol] 79 U/L 35-104 [facility] Serum or plasma cholesterol in HDL measurement (mass/volume)Ordered By: Larry Rodriguez on 03-24-2025 Cholesterol in HDL [Mass/Vol] 50 mg/dL >40 [facility] Comment on above: National Cholesterol Education Program [...] the following risk-cutoff thresholds for the [place] population. Total proteinOrdered By: Diallo Rodriguez on 03-24-2025 Protein [Mass/Vol] 7.4 g/dL 5.9-8.4 [facility] Triglycerides measurementOrd ered By: Larry Rodriguez on 03-24-2025 Triglyceride [Mass/Vol] 111 mg/dL <199 [facility] Comment on above: The drugs N-Acetylcy steine and Metamizole may falsely depress this assay. Normal range: <150 mg/dLBorderline High: 150-199 mg/dLHigh: 200-499 mg/dLVery High: >500 mg/dL Dexa Bone Density Studyon Dexa Bone Density Study [facility] Services [address] [place] [id number] Dexa Bone Density Study MR#: [id number] Acct: [id number] Name: LEEANN CROCKETT Rep #: [id number] : 1960 F 64 From: Deandre Ricks MD PCP: Dr. Yennifer Johnson MD Status: [facility] Study: Dexa Bone Density Study Date of Exam: 10/24/24 Exam# [id number] Ordering Dr: Yennifer Johnson MD [id number] STUDY: DUAL ENERGY X-RAY ABSORPTIOMETRY / DXA [...] EST , CC: Dr. Yennifer Johnson MD Feather Duster Winder: Signed Normal [facility] SCRN MAMM (CAD)W/DARRELL BILATo n 10-24-2024 SCRN MAMM (CAD)W/DARRELL BILAT [facility] Imaging Services [address] [place] [id number] SCRN MAMM (CAD)W/DARRELL BILAT MR#: [id number] Acct: [id number] Name: LEEANN CROCKETT Rep #: [id number] : 1960 F 64 From: Deandre Ricks MD PCP: Dr. Yennifer Johnson MD Status: [facility] Study: SCRN MAMM (CAD)W/DARRELL BILAT Date of Exam: 09/26 11/17 Exam# [id number] Ordering Dr: Yennifer Johnson [place] [id number] MAMMOGRAPHY - BILATERAL SCREENING 3-D TOMOSYNTHESIS REASON [...] Signed: Deandre Ricks MD at 19:33 EST , CC: Dr. Yennifer Johnson MD Feather Duster Winder: Signed Normal [facility] Lipid Profileon 10-21-2024 Cholesterol [Mass/Vol] 184 mg/dL Normal 200 [facility] Comment on above: Result Comment: <200 mg/dL Desirable 200-240 mg/dL Borderline >240 mg/dL High Risk Performed By: #### L 500.4100, L500.3400 #### [facility] [address] [place], [address] Cholesterol in HDL [Mass/Vol] 71 mg/dL Normal [facility] Comment on above: Result Comment: The drugs N-Acetylcysteine and Metamizole may falsely depress this assay. Reference Range HDL <40 mg/dL Low HDL Cholesterol HDL >or= 60 mg/dL High HDL Cholesterol Performed By: #### L 500.4100, L500.3400 #### [facility] [address] [place], [address] Cholesterol in LDL [Mass/Vol] 102 mg/dL Normal 0-130 [facility] Comment on above: Performed By: #### L 500.4100, L500.3400 #### [facility] [address] [place], [address] Cholesterol in VLDL [Mass/Vol] 11 mg/dL Normal 5-40 [facility] Comment on above: Performed By: #### L 500.4100, L500.3400 #### [facility] [address] [place], [address] Triglyceride [Mass/Vol] 55 mg/dL Normal [facility] Comment on above: Result Comment: The drugs N-Acetylcysteine and Metamizole may falsely depress this assay. Serum Triglycerides Reference Interval Normal <150 mg/dL Borderline high 150 - 199 mg/dL High 200 - 499 mg/dL Very High > or = 500 mg/dL Performed By: #### L 500.4100, L500.3400 #### [facility] [address] [place], [address] Liver Profileon 10-21-2024 Albumin [Mass/Vol] 3.7 g/dL Normal 3.2-5.0 [facility] Comment on above: Performed By: #### L 500.4100, L500.3400 #### [facility] [address] [place], [address] ALK P 90 U/L Normal 45-117 [facility] Comment on above: Performed By: #### L 500.4100, L500.3400 #### [facility] [address] [place], [address] ALT [Catalytic activity/Vol] 17 U/L Normal 13-56 [facility] Comment on above: Performed By: #### L 500.4100, L500.3400 #### [facility] [address] [place], [address] AST [Catalytic activity/Vol] 14 U/L Low 15-37 [facility] Comment on above: Performed By: #### L 500.4100, L500.3400 #### [facility] [address] [place], [address] Bilirubin [Mass/Vol] 0.40 mg/dL Normal 0.20-1.00 [facility] Comment on above: Result Comment: For patients on eltrombopag therapy, use of Dimension [place] TBIL is not recommended. Performed By: #### L 500.4100, L500.3400 #### [facility] [address] [place], [address] Bilirubin.direct [Mass/Vol] 0.14 mg/dL Normal 0.00-0.30 [facility] Comment on above: Performed By: #### L 500.4100, L500.3400 #### [facility] [address] [place], [address] Globulin (S) [Mass/Vol] 4.0 g/dL Normal 2.2-4.2 [facility] Comment on above: Performed By: #### L 500.4100, L500.3400 #### [facility] [address] [place], [address] T PROT 7.7 g/dL Normal 6.4-8.2 [facility] Comment on above: Performed By: #### L 500.4100, L500.3400 #### [facility] [address] [place], [address] Basic Metabolic Profile (BMP )on 07-10-2024 BUN/CRE 21.5 RATIO High 10-20 [facility] Comment on above: Performed By: #### L 100.0100, L500.2500 ####[facility] [address] [place], [address] CA,Total 9.5 mg/dL Normal 8.5-10.1 [facility] Comment on above: Performed By: #### L 100.0100, L500.2500 ####[facility] [address] [place], [address] Chloride [Moles/Vol] 105 mmol/L Normal 98-107 [facility] Comment on above: Performed By: #### L 100.0100, L500.2500 ####[facility] [address] [place], [address] CO2 [Moles/Vol] 27.0 mmol/L Normal 21.0-32.0 [facility] Comment on above: Performed By: #### L 100.0100, L500.2500 ####[facility] [address] [place], [address] Creatinine [Mass/Vol] 0.70 mg/dL Normal 0.55-1.02 [facility] Comment on above: Result Comment: The validity of the calculated GFR GFRAA in patients over 70 years has not been determined. Clinical correlation is essential. Performed By: #### L 100.0100, L500.2500 ####[facility] [address] [place], [address] EST GFR - AA 109 mL/min Normal >60 [facility] Comment on above: Result Comment: Afri can Moroccan GFR Calc Performed By: #### L 100.0100, L500.2500 ####[facility] [address] [place], [address] GAP 6 Normal 5-15 [facility] Comment on above: Performed By: #### L 100.0100, L500.2500 ####[facility] [address] [place], [address] GFR/1.73 sq M.predicted among non-blacks MDRD (S/P/Bld) [Vol rate/Area] 90 mL/min/{1.73_m2} Normal >60 [facility] Comment on above: Result Comment: Non- GFR Calc Performed By: #### L 100.0100, L500.2500 ####[facility] [address] [place], [address] Glucose [Mass/Vol] 106 mg/dL Normal 74-106 [facility] Comment on above: Result Comment: Fast ing Glucose result from 100 to 125 mg/dL suggests IMPAIRED HOMEOSTASIS per A.D.A. criteria. Performed By: #### L 100.0100, L500.2500 ####[facility] [address] [place], [address] Potassium [Moles/Vol] 3.9 mmol/L Normal 3.5-5.1 [facility] Comment on above: Performed By: #### L 100.0100, L500.2500 ####[facility] [address] [place], [address] Sodium [Moles/Vol] 138 mmol/L Normal 136-145 [facility] Comment on above: Performed By: #### L 100.0100, L500.2500 ####[facility] [address] [place], [address] Urea nitrogen [Mass/Vol] 15 mg/dL Normal 7-18 [facility] Comment on above: Performed By: #### L 100.0100, L500.2500 ####[facility] [address] [place], [address] CBC W/Diff, Automatedon 06-25 Absolute Lymph 1.74 X10 3/uL Normal 0.83-4.51 [facility] Comment on above: Performed By: #### L 100.0100, L500.2500 #### [facility] [address] [place], [address] Absolute Neut 7.0 X10 3/uL Normal 2.0-7.7 [facility] Comment on above: Performed By: #### L 100.0100, L500.2500 #### [facility] [address] [place], [address] Basophils/100 WBC (Bld) 0.5 % Normal 0-1 [facility] Comment on above: Performed By: #### L 100.0100, L500.2500 #### [facility] [address] [place], [address] Eosinophils/100 WBC (Bld) 1.8 % Normal 0-5 [facility] Comment on above: Performed By: #### L 100.0100, L500.2500 #### [facility] [address] [place], [address] Erythrocyte distribution width (RBC) [Ratio] 13.1 % Normal 11.6-14.6 [facility] Comment on above: Performed By: #### L 100.0100, L500.2500 #### [facility] [address] [place], [address] Hematocrit (Bld) [Volume fraction] 37.1 % Normal 37-47 [facility] Comment on above: Performed By: #### L 100.0100, L500.2500 #### [facility] [address] [place], [address] Hemoglobin (Bld) [Mass/Vol] 11.9 g/dL Low 12.0-15.0 [facility] Comment on above: Performed By: #### L 100.0100, L500.2500 #### [facility] [address] [place], [address] IG% 0.700 Normal 0.0-0.9 [facility] Comment on above: Result Comment: IG% - Immature Granulocytes (promyelocytes, myelocytes and metamyelocytes) > 1% indicates that a LEFT SHIFT is Present. Performed By: #### L 100.0100, L500.2500 #### [facility] [address] [place], [address] Lymphocytes/100 WBC (Bld) 17.7 % Low 19-41 [facility] Comment on above: Performed By: #### L 100.0100, L500.2500 #### [facility] [address] [place], [address] MCH (RBC) [Entitic mass] 28.5 pg Normal 27.0-32.0 [facility] Comment on above: Performed By: #### L 100.0100, L500.2500 #### [facility] [address] [place], [address] MCHC (RBC) [Mass/Vol] 32.1 g/dL Normal 32-36 [facility] Comment on above: Performed By: #### L 100.0100, L500.2500 #### [facility] [address] [place], [address] MCV (RBC) [Entitic vol] 88.8 fL Normal 81-99 [facility] Comment on above: Performed By: #### L 100.0100, L500.2500 #### [facility] [address] [place], [address] Monocytes/100 WBC (Bld) 8.1 % Normal 0-10 [facility] Comment on above: Performed By: #### L 100.0100, L500.2500 #### [facility] [address] [place], [address] Neutrophils/100 WBC (Bld) 71.2 % High 47-70 [facility] Comment on above: Performed By: #### L 100.0100, L500.2500 #### [facility] [address] [place], [address] Nucleated RBC (Bld) [#/Vol] 0 10*3/uL Normal 0-5 [facility] Comment on above: Performed By: #### L 100.0100, L500.2500 #### [facility] [address] [place], [address] Platelet mean volume (Bld) [Entitic vol] 9.9 fL Normal 6.2-12.0 [facility] Comment on above: Performed By: #### L 100.0100, L500.2500 #### [facility] [address] [place], [address] Platelets (Bld) [#/Vol] 449 10*3/uL Normal 150-450 [facility] Comment on above: Performed By: #### L 100.0100, L500.2500 #### [facility] [address] [place], [address] RBC (Bld) [#/Vol] 4.18 10*6/uL Low 4.2-5.4 [facility] Comment on above: Performed By: #### L 100.0100, L500.2500 #### [facility] [address] [place], [address] RDW SD 42.4 fl Normal 35.1-43.9 [facility] Comment on above: Performed By: #### L 100.0100, L500.2500 #### [facility] [address] [place], [address] WBC (Bld) [#/Vol] 9.8 10*3/uL Normal 4.4-11.0 [facility] Comment on above: Performed By: #### L 100.0100, L500.2500 #### [facility] [address] [place], [address] Internal Medicine Office Vis aden 07-10-2024 Internal Medicine Office Visit [facility] [address] [place] [address] [address] [place] [address] OFFICE VISIT Date of Service: 07/10/24 MR#: [id number] Acct: [id number] Name: LEEANN CROCKETT Rep #: [id number] : 1960 Provider: Dr. 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 Normal [facility] PT D/C Summary (1)on 024 PT D/C Summary (1) [facility] Physical Therapy [facility] [address] [place] [address] / REHABILITATION SERVICES DISCHARGE SUMMARY MR#: [id number] Acct: [id number] Name: LEEANN CROCKETT Rep #: [id number] : 1960 64 From: Clayton Valles PT, [...] Progress: Goal Met Plan Plan: Discharge to HEP D/C Information Discharge Comments: Rx goals achieved d/c sentence: If there are questions or concerns regarding this patient's physical therapy, please feel free to call me at [phone]. Thank you for the referral of this patient. Sincerely, Clayton Valles, PT, ATC Balance/Gait/Functiona l tests Balance/Special Test Scores Lower Extremity Functional Score: 64 Tug Test: <10 sec.=free mobile WOMAC Total Score: 31 WOMAC Percentage: 67.7100 Improvement % Improvement: 95 06/15/24 1629 CC: Tin West MD; Dr. Yennifer Johnson MD [facility] Signed Normal [facility] Re-Evaluation - PT (1)on Re-Evaluation - PT (1) [facility] [address] [place] [address] / REEVALUATION / MEDICARE RECERTIFICATION PHYSICAL THERAPY MR#: [id number] Acct: [id number] Name: LEEANN CROCKETT Rep #: [id number] : 1960 64 From: Meghan Lopez DPT [...] She still uses her cane intermittently. Worst: 5/10 Objective Objective/Function: Posture: forward head, rounded shoulders- [...] do not hesitate to contact me at [phone] by phone or if you have questions or concerns regarding this new plan of care! Sincerely, Meghan Lopez, DPT 05/18/24 2812 CC: Tin West MD; Dr. Yennifer Johnson MD ELR Signed For Medicare only, by signing this I certify the plan of care. Physicians Signature Date Normal [facility] Bacteria identifiedon 2023 Bacteria identified Cx Nom (U) Test: Urine Culture Specimen Source: Clean Catch/Voided Specimen Type: Urine Specimen Date: 04/04/2024 1057 Result Date: 04/05/2024 1613 Result Status: Final result Abnormal: No Resulting Lab: [facility] [address] [id number] CULTURE No growth Normal [facility] Comment on above: Performed By: #### 6 30-4 #### CONNOR Grant ([id number]) [facility] ([facility]) [address] [place] [address] Basic metabolic 2000 panelon 04-04-2024 Anion gap [Moles/Vol] 10 mmol/L NINF - 19 mmol/L [facility] Calcium [Mass/Vol] 8.7 mg/dL 8.5 - 10. 4 mg/dL [facility] Chloride [Moles/Vol] 105 mmol/L 97 - 10 7 mmol/L [facility] CO2 [Moles/Vol] 24 mmol/L 24 - 31 mmol/L [facility] Creatinine [Mass/Vol] 0.70 mg/dL 0.40 - 1.60 mg/dL [facility] eGFR - PINF [facility] Comment on above: Calculations of perla mated GFR are performed using the 2020 CKD-EPI Study Refit equation without the race variable for the IDMS-Traceable creatinine methods. https://jasn.asnjournals.org/content/early//ASN.2020 868317 Glucose [Mass/Vol] 151 mg/dL High 65 - 99 mg/dL [facility] Interpretation and review of laboratory results Abnormal [facility] Potassium [Moles/Vol] 4.1 mmol/L 3.4 - 5.1 mmol/L [facility] Sodium [Moles/Vol] 139 mmol/L 133 - 145 mmol/L [facility] Urea nitrogen [Mass/Vol] 18 mg/dL 8 - 25 mg/dL [facility] Anion gap [Moles/Vol] 10 mmol/L Normal <=19 [facility] Comment on above: Performed By: #### 2 4321-2 #### RONAL Alvarez ([id number]) [facility] () [address] [place] [address] Calcium [Mass/Vol] 8.7 mg/dL Normal 8.5-10.4 [facility] Comment on above: Performed By: #### 2 4321-2 #### RONAL Alvarez ([id number]) [facility] () [address] [place] [address] Chloride [Moles/Vol] 105 mmol/L Normal 97-107 [facility] Comment on above: Performed By: #### 2 4321-2 #### RONAL Alvarez ([id number]) [facility] () [address] [place] [address] CO2 [Moles/Vol] 24 mmol/L Normal 24-31 [facility] Comment on above: Performed By: #### 2 4321-2 #### RONAL Alvarez ([id number]) [facility] () [address] [place] [address] Creatinine [Mass/Vol] 0.70 mg/dL Normal 0.40-1.60 [facility] Comment on above: Performed By: #### 2 4321-2 #### RONAL Alvarez ([id number]) [facility] () [address] [place] [address] GFR/1.73 sq M.predicted MDRD (S/P/Bld) [Vol rate/Area] mL/min/{1.73_m2} Normal >60 [facility] Comment on above: Result Comment: Calc ulations of estimated GFR are performed using the 2020 CKD-EPI Study Refit equation without the race variable for the IDMS-Traceable creatinine methods. https://jasn.asnjournals.org/content/early// 473841 Performed By: #### 2 4321-2 #### RONAL Alvarez ([id number]) [facility] () [address] [place] [address] Glucose [Mass/Vol] 151 mg/dL High 65-99 [facility] Comment on above: Performed By: #### 2 4321-2 #### RONAL Alvarez ([id number]) [facility] () [address] [place] [address] Potassium [Moles/Vol] 4.1 mmol/L Normal 3.4-5.1 [facility] Comment on above: Performed By: #### 2 4321-2 #### RONAL Alvarez ([id number]) [facility] () [address] [place] [address] Sodium [Moles/Vol] 139 mmol/L Normal 133-145 [facility] Comment on above: Performed By: #### 2 4321-2 #### RONAL Alvarez ([id number]) [facility] () [address] [place] [address] Urea nitrogen [Mass/Vol] 18 mg/dL Normal 8-25 [facility] Comment on above: Performed By: #### 2 4321-2 #### RONAL Alvarez ([id number]) [facility] () [address] [place] [address] CBC panel Auto (Bld)on 04-04 Erythrocyte distribution width (RBC) [Ratio] 12.0 % 11.5 - 14.5 % [facility] Hematocrit (Bld) [Volume fraction] 30.1 % Low 36.0 - 46.0 % [facility] Hemoglobin (Bld) [Mass/Vol] 10.5 g/dL Low 12.0 - 16.0 g/dL [facility] Interpretation and review of laboratory results Abnormal [facility] MCH (RBC) [Entitic mass] 29.9 pg 26.0 - 34.0 pg [facility] MCHC (RBC) [Mass/Vol] 34.9 g/dL 32.0 - 36.0 g/dL [facility] MCV (RBC) [Entitic vol] 86 fL 80 - 100 fL [facility] Nucleated RBC/100 WBC (Bld) [Ratio] 0.0 % [facility] Platelets (Bld) [#/Vol] 360 10*3/uL [facility] RBC (Bld) [#/Vol] 3.51 10*6/uL Low [facility] WBC (Bld) [#/Vol] 21.9 10*3/uL [facility] Erythrocyte distribution width (RBC) [Ratio] 12.0 % Normal 11.5-14.5 [facility] Comment on above: Performed By: #### 5 8410-2 #### RONAL Alvarez ([id number]) [facility] () [address] [place] [address] Hematocrit (Bld) [Volume fraction] 30.1 % Low 36.0-46.0 [facility] Comment on above: Performed By: #### 5 8410-2 #### RONAL Alvarez ([id number]) [facility] () [address] [place] [address] Hemoglobin (Bld) [Mass/Vol] 10.5 g/dL Low 12.0-16.0 [facility] Comment on above: Performed By: #### 5 8410-2 #### RONAL Alvarez ([id number]) [facility] () [address] [place] [address] MCH (RBC) [Entitic mass] 29.9 pg Normal 26.0-34.0 [facility] Comment on above: Performed By: #### 5 8410-2 #### RONAL Alvarez ([id number]) [facility] () [address] [place] [address] MCHC (RBC) [Mass/Vol] 34.9 g/dL Normal 32.0-36.0 [facility] Comment on above: Performed By: #### 5 8410-2 #### RONAL Alvarez ([id number]) [facility] () [address] [place] [address] MCV (RBC) [Entitic vol] 86 fL Normal 80-[address] [facility] Comment on above: Performed By: #### 5 8410-2 #### RONAL Alvarez ([id number]) [facility] () [address] [place] [address] Nucleated RBC/100 WBC (Bld) [Ratio] 0.0 /100 WBCs Normal 0.0-0.0 [facility] Comment on above: Performed By: #### 5 8410-2 #### RONAL Alvarez ([id number]) [facility] () [address] [place] [address] Platelets (Bld) [#/Vol] 360 x10*3/uL Normal 150-450 [facility] Comment on above: Performed By: #### 5 8410-2 #### RONAL Alvarez ([id number]) [facility] () [address] [place] [address] RBC (Bld) [#/Vol] 3.51 x10*6/uL Low 4.00-5.20 [facility] Comment on above: Performed By: #### 5 8410-2 #### RONAL Alvarez ([id number]) [facility] () [address] [place] [address] WBC (Bld) [#/Vol] 21.9 x10*3/uL High 4.4-11.3 [facility] Comment on above: Performed By: #### 5 8410-2 #### RONAL Alvarez ([id number]) [facility] () [address] [place] [address] No Panel Informationon 04-04 Interpretation and review of laboratory results Abnormal [facility] Urinalysis complete W Reflex Culture panel (U)on 04-04-2024 Appearance (U) Clear Clear [facility] Bilirubin (U) [Mass/Vol] Negative NEGATIVE [facility] Color (U) Light-Yellow Light-Yello w, Yellow, Dark-Yellow [facility] Glucose Auto test strip (U) [Mass/Vol] Normal Normal mg/dL [facility] Ketones (U) [Mass/Vol] Negative NEGAT AMANDA mg/dL [facility] Leukocyte esterase Auto test strip Ql (U) 75 Angi/ L Abnormal NEGATIVE [facility] Nitrite Auto test strip Ql (U) Negative NEGATIVE [facility] pH (U) 5.5 [pH] 5.0, 5.5, 6.0, 6.5, 7.0, 7.5, 8.0 [facility] Protein (U) [Mass/Vol] Negative NEGAT AMANDA, 10 (TRACE), 20 (TRACE) mg/dL [facility] RBC (U) [#/Vol] 0.1 (1+) Abnormal NEGATIVE [facility] Specific gravity (U) [Rel density] 1.011 1.005 - 1.035 [facility] Urobilinogen (U) [Mass/Vol] Normal Normal mg/dL [facility] Appearance (U) Clear Normal Clear [facility] Comment on above: Performed By: #### 5 8077-9 #### RONAL Alvarez ([id number]) [facility] () [address] [place] [address] Bilirubin (U) [Mass/Vol] Negative Normal NEGATIVE [facility] Comment on above: Performed By: #### 5 8077-9 #### RONAL Alvarez ([id number]) [facility] () [address] [place] [address] Color (U) Light-Yellow Normal Light-Yello w, Yellow, Dark-Yellow [facility] Comment on above: Performed By: #### 5 8077-9 #### RONAL Alvarez ([id number]) [facility] () [address] [place] [address] Glucose Auto test strip (U) [Mass/Vol] Normal Normal Normal [facility] Comment on above: Performed By: #### 5 8077-9 #### RONAL Alvarez ([id number]) [facility] () [address] [place] [address] Ketones (U) [Mass/Vol] Negative Normal NEGATIVE [facility] Comment on above: Performed By: #### 5 8077-9 #### RONAL Alvarez ([id number]) [facility] () [address] [place] [address] Leukocyte esterase Auto test strip Ql (U) 75 Angi/???L Abnormal NEGATIVE [facility] Comment on above: Performed By: #### 5 8077-9 #### RONAL Alvarez ([id number]) [facility] () [address] [place] [address] Nitrite Auto test strip Ql (U) Negative Normal NEGATIVE [facility] Comment on above: Performed By: #### 5 8077-9 #### RONAL Alvarez ([id number]) [facility] () [address] [place] [address] pH (U) 5.5 [pH] Normal 5.0, 5.5, 6.0, 6.5, 7.0, 7.5, 8.0 [facility] Comment on above: Performed By: #### 5 8077-9 #### RONAL Alvarez ([id number]) [facility] () [address] [place] [address] Protein (U) [Mass/Vol] Negative Normal NEGAT AMANDA, 10 (TRACE), 20 (TRACE) [facility] Comment on above: Performed By: #### 5 8077-9 #### RONAL Alvarez ([id number]) [facility] () [address] [place] [address] RBC (U) [#/Vol] 0.1 (1+) Abnormal NEGATIVE [facility] Comment on above: Performed By: #### 5 9677-9 #### RONAL Alvarez ([id number]) [facility] () [address] [place] [address] Specific gravity (U) [Rel density] 1.011 Normal 1.005-1.035 [facility] Comment on above: Performed By: #### 5 8077-9 #### RONAL Alvarez ([id number]) [facility] () [address] [place] [address] Urobilinogen (U) [Mass/Vol] Normal Normal Normal [facility] Comment on above: Performed By: #### 5 8077-9 #### RONAL Alvarez ([id number]) [facility] () [address] [place] [address] Urinalysis microscopic panel Auto Ql (U)on 04-04-2024 Epithelial cells.squamous Auto (Urine sed) [#/Area] 1-9 (SPARSE) Reference range not established . /HPF [facility] Mucus Auto (Urine sed) [#/Area] FEW Reference range not established . /LPF [facility] RBC Auto (Urine sed) [#/Area] 11-20 Abnormal NONE, 1-2, 3-5 /HPF [facility] WBC Auto (Urine sed) [#/Area] 6-10 Abnormal 1-5, NONE /HPF [facility] Epithelial cells.squamous Auto (Urine sed) [#/Area] 1-9 (SPARSE) Normal Reference range not established . [facility] Comment on above: Performed By: #### 5 3315-8 #### RONAL Alvarez ([id number]) [facility] () [address] [place] [address] Mucus Auto (Urine sed) [#/Area] FEW Normal Reference range not established . [facility] Comment on above: Performed By: #### 5 3315-8 #### RONAL Alvarez ([id number]) [facility] () [address] [place] [address] RBC Auto (Urine sed) [#/Area] 11-20 Abnormal NONE, 1-2, 3-5 [facility] Comment on above: Performed By: #### 5 3315-8 #### RONAL Alvarez ([id number]) [facility] () [address] [place] [address] WBC Auto (Urine sed) [#/Area] 6-10 Abnormal 1-5, NONE [facility] Comment on above: Performed By: #### 5 3315-8 #### RONAL FISHER T ([id number]) [facility] () [address] [place] [address] XR CHEST 1 VIEWon 04-04-2024 XR CHEST 1 VIEW Interpreted By: Rafael Ibanez, STUDY: XR CHEST 1 VIEW; ; 04/04/2024 8:59 am INDICATION: Signs/Symptoms:leukocy tosis. COMPARISON: None. ACCESSION NUMBER(S): [id number] ORDERING CLINICIAN: KESHAWN STEVENSON TECHNIQUE: Single AP view chest FINDINGS: Cardiac silhouette is within normal limits. No infiltrate or effusion identified. Visualized osseous structures demonstrate glenohumeral joint osteoarthritis bilaterally. IMPRESSION: 1. No acute process MACRO: None Signed by: Rafael Shepard 04/04/2024 9:46 AM Dictation workstation: [id number] Normal [facility] XR Chest Single viewon 04-04 1. No acute process MACRO: None Signed by: Rafael Shepard 04/04/2024 9:46 AM Dictation workstation: [id number] [facility] Interpreted By: Rafael Ibanez, STUDY: XR CHEST 1 VIEW; ; 04/04/2024 8:59 am INDICATION: Signs/Symptoms:leukocy tosis. COMPARISON: None. ACCESSION NUMBER(S): [id number] ORDERING CLINICIAN: KESHAWN STEVENSON TECHNIQUE: Single AP view chest FINDINGS: Cardiac silhouette is within normal limits. No infiltrate or effusion identified. Visualized osseous structures demonstrate glenohumeral joint osteoarthritis bilaterally. [facility] Rafael Shepard MD - 04/04/2024 Interpreted By: Rafael Shepard, STUDY: XR CHEST 1 VIEW; ; 04/04/2024 8:59 am INDICATION: Signs/Symptoms:leukocy tosis. COMPARISON: None. ACCESSION NUMBER(S): [id number] ORDERING CLINICIAN: KESHAWN STEVENSON TECHNIQUE: Single AP view chest FINDINGS: Cardiac silhouette is within normal limits. No infiltrate or effusion identified. Visualized osseous structures demonstrate glenohumeral joint osteoarthritis bilaterally. IMPRESSION: 1. No acute process MACRO: None Signed by: Rafael Shepard 04/04/2024 9:46 AM Dictation workstation: [id number] [facility] Work Phone: Radiology Study observation (narrative) [facility] Work Phone: XR Chest Single viewOrdered By: Rafael Shepard on 04-04-2024 [facility] Work Phone: XR KNEE LEFT 1-2 VIEWSon XR KNEE LEFT 1-2 VIEWS Interpreted By: Herman Marquez, STUDY: XR KNEE LEFT 1-2 VIEWS; 04/03/2024 10:27 am INDICATION: Signs/Symptoms:Post-op knee. COMPARISON: None. ACCESSION NUMBER(S): [id number] ORDERING CLINICIAN: TIN WEST FINDINGS: Components of left knee arthroplasty are in anatomic alignment. Postoperative soft tissue gas. IMPRESSION: New left knee arthroplasty in anatomic alignment. MACRO: None Signed by: Herman Marquez 04/03/2024 11:33 AM Dictation workstation: [id number] [facility] Comment on above: Order Comment: AP an d Lateral view of (left) postoperative knee in PACU. XR Knee - left 1 or 2 Viewso n 04-03-2024 New left knee arthroplasty in anatomic alignment. MACRO: None Signed by: Herman Marquez 04/03/2024 11:33 AM Dictation workstation: [id number] [facility] Interpreted By: Herman Marquez, STUDY: XR KNEE LEFT 1-2 VIEWS; 04/03/2024 10:27 am INDICATION: Signs/Symptoms:Post-op knee. COMPARISON: None. ACCESSION NUMBER(S): [id number] ORDERING CLINICIAN: TIN WEST FINDINGS: Components of left knee arthroplasty are in anatomic alignment. Postoperative soft tissue gas. [facility] Herman Marquez MD - 04/03/2024 Interpreted By: Herman Marquez, STUDY: XR KNEE LEFT 1-2 VIEWS; 04/03/2024 10:27 am INDICATION: Signs/Symptoms:Post-op knee. COMPARISON: None. ACCESSION NUMBER(S): [id number] ORDERING CLINICIAN: TIN WEST FINDINGS: Components of left knee arthroplasty are in anatomic alignment. Postoperative soft tissue gas. IMPRESSION: New left knee arthroplasty in anatomic alignment. MACRO: None Signed by: Herman Marquez 04/03/2024 11:33 AM Dictation workstation: [id number] [facility] Work Phone: Radiology Study observation (narrative) [facility] Work Phone: XR Knee - left 1 or 2 ViewsO rdered By: Herman Marquez on 04-03-2024 [facility] Work Phone: Basic metabolic 2000 panelon 03-21-2024 Anion gap [Moles/Vol] 15 mmol/L Normal <=19 [facility] Comment on above: Performed By: #### 2 4321-2 #### RONAL Alvarez ([id number]) [facility] () [address] [place] [address] Calcium [Mass/Vol] 10.2 mg/dL Normal 8.5-10.4 [facility] Comment on above: Performed By: #### 2 4321-2 #### RONAL Alvarez ([id number]) [facility] () [address] [place] [address] Chloride [Moles/Vol] 103 mmol/L Normal 97-107 [facility] Comment on above: Performed By: #### 2 4321-2 #### RONAL Alvarez ([id number]) [facility] () [address] [place] [address] CO2 [Moles/Vol] 24 mmol/L Normal 24-31 [facility] Comment on above: Performed By: #### 2 4321-2 #### RONAL Alvarez ([id number]) [facility] () [address] [place] [address] Creatinine [Mass/Vol] 0.90 mg/dL Normal 0.40-1.60 [facility] Comment on above: Performed By: #### 2 4321-2 #### RONAL Alvarez ([id number]) [facility] () [address] [place] [address] Glomerular filtration rate/1.73 sq M.predicted 72 mL/min/1.73m*2 Normal >60 [facility] Comment on above: Result Comment: Calc ulations of estimated GFR are performed using the 2020 CKD-EPI Study Refit equation without the race variable for the IDMS-Traceable creatinine methods. https://jasn.asnjournals.org/content/early//ASN.2020 437261 Performed By: #### 2 4320-2 #### RONAL Alvarez ([id number]) [facility] () [address] [place] [address] Glucose [Mass/Vol] 84 mg/dL Normal 65-99 [facility] Comment on above: Performed By: #### 2 4321-2 #### RONAL Alvarez ([id number]) [facility] () [address] [place] [address] Potassium [Moles/Vol] 4.5 mmol/L Normal 3.4-5.1 [facility] Comment on above: Performed By: #### 2 4321-2 #### RONAL Alvarez ([id number]) [facility] () [address] [place] [address] Sodium [Moles/Vol] 142 mmol/L Normal 133-145 [facility] Comment on above: Performed By: #### 2 4321-2 #### RONAL Alvarez ([id number]) [facility] () [address] [place] [address] Urea nitrogen [Mass/Vol] 18 mg/dL Normal 8-25 [facility] Comment on above: Performed By: #### 2 4321-2 #### RONAL Alvarez ([id number]) [facility] () [address] [place] [address] CBC W Auto Differential pane l (Bld)on 03-21-2024 Basophils (Bld) [#/Vol] 0.07 x10*3/uL Normal 0.00-0.10 [facility] Comment on above: Performed By: #### 5 7021-8 #### RONAL Alvarez ([id number]) [facility] () [address] [place] [address] Basophils/100 WBC (Bld) 0.7 % Normal 0.0-2.0 [facility] Comment on above: Performed By: #### 5 7021-8 #### RONAL Alvarez ([id number]) [facility] () [address] [place] [address] Eosinophils (Bld) [#/Vol] 0.12 x10*3/uL Normal 0.00-0.70 [facility] Comment on above: Performed By: #### 5 7021-8 #### RONAL Alvarez ([id number]) [facility] () [address] [place] [address] Eosinophils/100 WBC (Bld) 1.2 % Normal 0.0-6.0 [facility] Comment on above: Performed By: #### 5 7021-8 #### RONAL Alvarez ([id number]) [facility] () [address] [place] [address] Erythrocyte distribution width (RBC) [Ratio] 12.3 % Normal 11.5-14.5 [facility] Comment on above: Performed By: #### 5 7021-8 #### RONAL Alvarez ([id number]) [facility] () [address] [place] [address] Hematocrit (Bld) [Volume fraction] 41.4 % Normal 36.0-46.0 [facility] Comment on above: Performed By: #### 5 7021-8 #### RONAL FISHER T ([id number]) [facility] () [address] [place] [address] Hemoglobin (Bld) [Mass/Vol] 13.5 g/dL Normal 12.0-16.0 [facility] Comment on above: Performed By: #### 5 7021-8 #### RONAL Alvarez ([id number]) [facility] () [address] [place] [address] Immature granulocytes (Bld) [#/Vol] 0.03 x10*3/uL Normal 0.00-0.70 [facility] Comment on above: Performed By: #### 5 7021-8 #### RONAL Alvarez ([id number]) [facility] () [address] [place] [address] Immature granulocytes/100 WBC (Bld) 0.3 % Normal 0.0-0.9 [facility] Comment on above: Result Comment: Анна ture Granulocyte Count (IG) includes promyelocytes, myelocytes and metamyelocytes but does not include bands. Percent differential counts (%) should be interpreted in the context of the absolute cell counts (cells/UL). Performed By: #### 5 7021-8 #### RONAL Alvarez ([id number]) [facility] () [address] [place] [address] Lymphocytes (Bld) [#/Vol] 2.15 x10*3/uL Normal 1.20-4.80 [facility] Comment on above: Performed By: #### 5 7021-8 #### RONAL FISHER T ([id number]) [facility] () [address] [place] [address] Lymphocytes/100 WBC (Bld) 21.7 % Normal 13.0-44.0 [facility] Comment on above: Performed By: #### 5 7021-8 #### RONAL Alvarez ([id number]) [facility] () [address] [place] [address] MCH (RBC) [Entitic mass] 29.3 pg Normal 26.0-34.0 [facility] Comment on above: Performed By: #### 5 7021-8 #### RONAL Alvarez ([id number]) [facility] () [address] [place] [address] MCHC (RBC) [Mass/Vol] 32.6 g/dL Normal 32.0-36.0 [facility] Comment on above: Performed By: #### 5 7021-8 #### RONAL Alvarez ([id number]) [facility] () [address] [place] [address] MCV (RBC) [Entitic vol] 90 fL Normal 80-100 [facility] Comment on above: Performed By: #### 5 7021-8 #### RONAL Alvarez ([id number]) [facility] () [address] [place] [address] Monocytes (Bld) [#/Vol] 0.76 x10*3/uL Normal 0.10-1.00 [facility] Comment on above: Performed By: #### 5 7021-8 #### RONAL Alvarez ([id number]) [facility] () [address] [place] [address] Monocytes/100 WBC (Bld) 7.7 % Normal 2.0-10.0 [facility] Comment on above: Performed By: #### 5 7021-8 #### RONAL Alvarez ([id number]) [facility] () [address] [place] [address] Neutrophils (Bld) [#/Vol] 6.78 x10*3/uL Normal 1.20-7.70 [facility] Comment on above: Result Comment: Perc ent differential counts (%) should be interpreted in the context of the absolute cell counts (cells/uL). Performed By: #### 5 7021-8 #### RONAL Alvarez ([id number]) [facility] () [address] [place] [address] Neutrophils/100 WBC (Bld) 68.4 % Normal 40.0-80.0 [facility] Comment on above: Performed By: #### 5 7021-8 #### RONAL Alvarez ([id number]) [facility] () [address] [place] [address] Nucleated RBC/100 WBC (Bld) [Ratio] 0.0 /100 WBCs Normal 0.0-0.0 [facility] Comment on above: Performed By: #### 5 7021-8 #### RONAL Alvarez ([id number]) [facility] () [address] [place] [address] Platelets (Bld) [#/Vol] 439 x10*3/uL Normal 150-450 [facility] Comment on above: Performed By: #### 5 7021-8 #### RONAL Alvarez ([id number]) [facility] () [address] [place] [address] RBC (Bld) [#/Vol] 4.60 x10*6/uL Normal 4.00-5.20 [facility] Comment on above: Performed By: #### 5 7021-8 #### RONAL Alvarez ([id number]) [facility] () [address] [place] [address] WBC (Bld) [#/Vol] 9.9 x10*3/uL Normal 4.4-11.3 [facility] Comment on above: Performed By: #### 5 7021-8 #### RONAL Alvarez ([id number]) [facility] () [address] [place] [address] Staphylococcus aureus.methic illin resistant isolateon 03-21-2024 MRSA isol Org specific cx Ql (Nose) Test: Staphylococcus aureus/MRSA colonization, Culture Specimen Source: Anterior Nares Specimen Type: Swab Specimen Date: 03/21/2024 1412 Result Date: 03/23/2024 0747 Result Status: Final result Abnormal: No Resulting Lab: [facility] [id number] [place] [address] CULTURE No Staphylococcus aureus isolated Normal [facility] Comment on above: Performed By: #### 5 2969-3 #### CONNOR Grant ([id number]) [facility] ([facility]) [address] [place] [address] Urinalysis complete W Reflex Culture panel (U)on 03-21-2024 Appearance (U) Clear Normal Clear [facility] Comment on above: Performed By: #### 5 8077-9 #### RONAL Alvarez ([id number]) [facility] () [address] [place] [address] Bilirubin (U) [Mass/Vol] Negative Normal NEGATIVE [facility] Comment on above: Performed By: #### 5 8077-9 #### RONAL Alvarez ([id number]) [facility] () [address] [place] [address] Color (U) Light-Yellow Normal Light-Yello w, Yellow, Dark-Yellow [facility] Comment on above: Performed By: #### 5 8077-9 #### RONAL Alvarez ([id number]) [facility] () [address] [place] [address] Glucose Auto test strip (U) [Mass/Vol] Normal Normal Normal [facility] Comment on above: Performed By: #### 5 8077-9 #### RONAL Alvarez ([id number]) [facility] () [address] [place] [address] Ketones (U) [Mass/Vol] Negative Normal NEGATIVE [facility] Comment on above: Performed By: #### 5 8077-9 #### RONAL Alvarez ([id number]) [facility] () [address] [place] [address] Leukocyte esterase Auto test strip Ql (U) Negative Normal NEGATIVE [facility] Comment on above: Performed By: #### 5 8077-9 #### RONAL Alvarez ([id number]) [facility] () [address] [place] [address] Nitrite Auto test strip Ql (U) Negative Normal NEGATIVE [facility] Comment on above: Performed By: #### 5 8077-9 #### RONAL Alvarez ([id number]) [facility] () [address] [place] [address] pH (U) 5.5 [pH] Normal 5.0, 5.5, 6.0, 6.5, 7.0, 7.5, 8.0 [facility] Comment on above: Performed By: #### 5 8077-9 #### RONAL Alvarez ([id number]) [facility] () [address] [place] [address] Protein (U) [Mass/Vol] Negative Normal NEGAT AMANDA, 10 (TRACE), 20 (TRACE) [facility] Comment on above: Performed By: #### 5 8077-9 #### RONAL Alvarez ([id number]) [facility] () [address] [place] [address] RBC (U) [#/Vol] Negative Normal NEGATIVE [facility] Comment on above: Performed By: #### 5 8077-9 #### RONAL Alvarez ([id number]) [facility] () [address] [place] [address] Specific gravity (U) [Rel density] 1.016 Normal 1.005-1.035 [facility] Comment on above: Performed By: #### 5 8077-9 #### RONAL Alvarez ([id number]) [facility] () [address] [place] [address] Urobilinogen (U) [Mass/Vol] Normal Normal Normal [facility] Comment on above: Performed By: #### 5 8077-9 #### RONAL Alvarez ([id number]) [facility] ([facility]) [address] [place] [address] Absolute lymphocyte countOrd ered By: Karlie Johnson on 12-16-2023 Lymphocytes Auto (Unsp spec) [#/Vol] 2.10 10*3/uL 0.83-4.51 [facility] Automated lymphocyte count a s percentage of total leukocytesOrdered By: Karlie Johnson on 12-16-2023 Lymphocytes/100 WBC Auto (Unsp spec) 20.1 % 19-41 [facility] Basophil percentageOrdered B y: Karlie Johnson on 12-16-2023 Basophils/100 WBC (Bld) 0.9 % 0-1 [facility] Chloride [Moles/Vol] 107 mmol/L 98-107 [facility] Eosinophils/100 WBC (Bld) 3.5 % 0-5 [facility] Glucose [Mass/Vol] 95 mg/dL 74-106 [facility] Hemoglobin (Bld) [Mass/Vol] 12.4 g/dL 12.0-15.0 [facility] Monocytes/100 WBC (Bld) 8.6 % 0-10 [facility] Neutrophils (Bld) [#/Vol] 6.9 10*3/uL 2.0-7.7 [facility] Neutrophils/100 WBC (Bld) 66.1 % 47-70 [facility] Potassium [Moles/Vol] 3.6 mmol/L 3.5-5.1 [facility] Sodium [Moles/Vol] 141 mmol/L 136-145 [facility] WBC (Bld) [#/Vol] 10.4 10*3/uL 4.4-11.0 [facility] Determination of erythrocyte mean corpuscular volume (MCV)Ordered By: Karlie Johnson on 12-16-2023 MCV (RBC) [Entitic vol] 90.7 fL 81-99 [facility] Erythrocyte distribution wid th ratioOrdered By: Karlie Johnson on 12-16-2023 Erythrocyte distribution width (RBC) [Ratio] 12.6 % 11.6-14.6 [facility] Erythrocyte distribution wid th standard deviationOrdered By: Karlie Johnson on 12-16-2023 Erythrocyte distribution width (RBC) [Entitic vol] 41.3 fL 35.1-43.9 [facility] Hematocrit Auto (Bld) [Volum e fraction]Ordered By: Karlie Johnson on 12-16-2023 Hematocrit (Bld) [Volume fraction] 38.9 % 37-47 [facility] Immature granulocytes/100 WB C Auto (Bld)Ordered By: Karlie Johnson on 12-16-2023 Immature granulocytes/100 WBC (Bld) 0.800 % 0.0-0.9 [facility] Comment on above: IG% - Immature Granu locytes (promyelocytes, myelocytes and metamyelocytes) > 1% indicates that a LEFT SHIFT is Present. Laboratory - Chemistry and C hemistry - challengeOrdered By: Karlie Johnson on 12-16-2023 CO2 [Moles/Vol] 29.0 mmol/L 21.0-32.0 [facility] Magnesium [Mass/Vol] 2.5 mg/dL 1.6-2.6 [facility] Urea nitrogen/Creatinine [Mass ratio] 17.3 mg/mg 10-20 [facility] Laboratory - Hematology and Cell countsOrdered By: Karlie Johnson on 12-16-2023 MCH (RBC) [Entitic mass] 28.9 pg 27.0-32.0 [facility] MCHC (RBC) [Mass/Vol] 31.9 g/dL 32-36 [facility] Nucleated RBC/100 WBC (Bld) [Ratio] 0 % 0-5 [facility] Platelet mean volume (Bld) [Entitic vol] 9.8 fL 6.2-12.0 [facility] Platelets (Bld) [#/Vol] 453 10*3/uL 150-450 [facility] No Panel InformationOrdered By: Karlie Johnson on 12-16-2023 Estimated GFR (MDRD) Amer 85 mL/min >60 [facility] Comment on above: GFR Calc Estimated GFR (MDRD) Non-Af Amer 70 mL/min >60 [facility] Comment on above: Non- GFR Calc Free Triiodothyronine (T3) pg/dL 2.3 pg/mL 2.18-3.98 [facility] RBC Auto (Bld) [#/Vol]Ordere d By: Karlie Johnson on 12-16-2023 RBC (Bld) [#/Vol] 4.29 10*6/uL 4.2-5.4 [facility] Serum or plasma calcium kyree urement (mass/volume)Ordered By: Karlie Johnson on 12-16-2023 Calcium [Mass/Vol] 9.3 mg/dL 8.5-10.1 [facility] Serum or plasma creatinine m easurement (mass/volume)Ordered By: Karlie Johnson on 12-16-2023 Creatinine [Mass/Vol] 0.87 mg/dL 0.55-1.02 [facility] Comment on above: The validity of the calculated GFR & GFRAA in patients over 70 years has not been determined. Clinical correlation is essential. Serum or plasma thyroid stim ulating hormone (TSH) measurement (units/volume)Ordered By: Karlie Johnson on 12-16-2023 TSH Qn 1.76 uIU/mL 0.358-3.74 [facility] Serum or plasma urea nitroge n measurement (mass/volume)Ordered By: Karlie Johnson on 12-16-2023 Urea nitrogen [Mass/Vol] 15 mg/dL 7-18 [facility] Thin prep Papanicolaou smear with manual screeningOrdered By: Karlie Johnson on 12-16-2023 Thin prep Papanicolaou smear with manual screening 5 5-15 [facility] Thin prep Papanicolaou smear with manual screening 1.10 ng/dL 0.76-1.46 [facility] Laboratory - Microbiology an d Antimicrobial susceptibilityon 10-06-2023 SARS-CoV-2 (COVID-19) RNA NEIL+probe Ql (Unsp spec) Detected [facility] No Panel Informationon 10-06 Influenza Types A,B Rapid (Clinic) Not detected [facility] Absolute lymphocyte countOrd ered By: Yennifer Johnson on 09-27-2023 Lymphocytes Auto (Unsp spec) [#/Vol] 1.81 10*3/uL 0.83-4.51 [facility] Basophil percentageOrdered B y: Yennifer Johnson on 09-27-2023 Basophils/100 WBC (Bld) 0.6 % 0-1 [facility] Chloride [Moles/Vol] 106 mmol/L 98-107 [facility] Eosinophils/100 WBC (Bld) 1.4 % 0-5 [facility] Glucose [Mass/Vol] 90 mg/dL 74-106 [facility] Neutrophils (Bld) [#/Vol] 8.1 10*3/uL 2.0-7.7 [facility] Neutrophils/100 WBC (Bld) 73.3 % 47-70 [facility] Potassium [Moles/Vol] 3.8 mmol/L 3.5-5.1 [facility] Sodium [Moles/Vol] 139 mmol/L 136-145 [facility] WBC (Bld) [#/Vol] 11.0 10*3/uL 4.4-11.0 [facility] Blood erythrocytes count (nu mber/volume)Ordered By: Yennifer Johnson on 09-27-2023 RBC (Bld) [#/Vol] 4.37 10*6/uL 4.2-5.4 [facility] Blood hemoglobin measurement (mass/volume)Ordered By: Yennifer Johnson on 09-27-2023 Hemoglobin (Bld) [Mass/Vol] 12.9 g/dL 12.0-15.0 [facility] Blood lymphocytes/100 leukoc ytesOrdered By: Yennifer Johnson on 09-27-2023 Lymphocytes/100 WBC (Bld) 16.5 % 19-41 [facility] Blood monocytes/100 leukocyt esOrdered By: Yennifer Johnson on 09-27-2023 Monocytes/100 WBC (Bld) 7.7 % 0-10 [facility] Blood platelet mean volumeOr dered By: Yennifer Johnson on 09-27-2023 Platelet mean volume (Bld) [Entitic vol] 10.3 fL 6.2-12.0 [facility] Determination of erythrocyte mean corpuscular volume (MCV)Ordered By: Yennifer Johnson on 09-27-2023 MCV (RBC) [Entitic vol] 90.4 fL 81-99 [facility] Hematocrit Auto (Bld) [Volum e fraction]Ordered By: Yennifer Johnson on 09-27-2023 Hematocrit (Bld) [Volume fraction] 39.5 % 37-47 [facility] Laboratory - Chemistry and C hemistry - challengeOrdered By: Yennifer Johnson on 09-27-2023 CO2 [Moles/Vol] 24.0 mmol/L 21.0-32.0 [facility] Urea nitrogen/Creatinine [Mass ratio] 20.6 mg/mg 10-20 [facility] Laboratory - Hematology and Cell countsOrdered By: Yennifer Johnson on 09-27-2023 Erythrocyte distribution width (RBC) [Entitic vol] 39.6 fL 35.1-43.9 [facility] Erythrocyte distribution width (RBC) [Ratio] 11.9 % 11.6-14.6 [facility] Immature granulocytes/100 WBC (Bld) 0.500 % 0.0-0.9 [facility] Comment on above: IG% - Immature Granu locytes (promyelocytes, myelocytes and metamyelocytes) > 1% indicates that a LEFT SHIFT is Present. MCH (RBC) [Entitic mass] 29.5 pg 27.0-32.0 [facility] Nucleated RBC/100 WBC (Bld) [Ratio] 0 % 0-5 [facility] MCHC Auto (RBC) [Mass/Vol]Or dered By: Yennifer Johnson on 09-27-2023 MCHC (RBC) [Mass/Vol] 32.7 g/dL 32-36 [facility] No Panel InformationOrdered By: Yennifer Johnson on 09-27-2023 Estimated GFR (MDRD) Amer 97 mL/min >60 [facility] Comment on above: GFR Calc Estimated GFR (MDRD) Non-Af Amer 80 mL/min >60 [facility] Comment on above: Non- GFR Calc Platelets bldOrdered By: Lokesh Johnson on 09-27-2023 Platelets (Bld) [#/Vol] 452 10*3/uL 150-450 [facility] Serum or plasma calcium kyree urement (mass/volume)Ordered By: Yennifer Johnson on 09-27-2023 Calcium [Mass/Vol] 9.4 mg/dL 8.5-10.1 [facility] Serum or plasma creatinine m easurement (mass/volume)Ordered By: Yennifer Johnson on 09-27-2023 Creatinine [Mass/Vol] 0.78 mg/dL 0.55-1.02 [facility] Comment on above: The validity of the calculated GFR & GFRAA in patients over 70 years has not been determined. Clinical correlation is essential. Serum or plasma urea nitroge n measurement (mass/volume)Ordered By: Yennifer Johnson on 09-27-2023 Urea nitrogen [Mass/Vol] 16 mg/dL 7-18 [facility] Thin prep Papanicolaou smear with manual screeningOrdered By: Yennifer Johnson on 09-27-2023 Thin prep Papanicolaou smear with manual screening 9 5-15 [facility] Basophil percentageOrdered B y: Karlie Johnson on 07-03-2023 Bilirubin [Mass/Vol] 0.40 mg/dL 0.20-1.00 [facility] Comment on above: For patients on eltr ombopag therapy, use of [place] TBIL is not recommended. Cholesterol [Mass/Vol] 153 mg/dL <200 [facility] Comment on above: <200 mg/dL Desirable 200-240 mg/dL Borderline >240 mg/dL High Risk Protein [Mass/Vol] 7.6 g/dL 6.4-8.2 [facility] Triglyceride [Mass/Vol] 81 mg/dL <199 [facility] Comment on above: The drugs N-Acetylcy steine and Metamizole may falsely depress this assay.Serum Triglycerides Reference Interval Normal <150 mg/dL Borderline high 150 - 199 mg/dL High 200 - 499 mg/dL Very High > or = 500 mg/dL Direct bilirubinOrdered By: Karlie Johnson on 07-03-2023 Bilirubin.direct [Mass/Vol] 0.14 mg/dL 0.00-0.30 [facility] Laboratory - Chemistry and C hemistry - challengeOrdered By: Karlie Johnson on 07-03-2023 ALP [Catalytic activity/Vol] 79 U/L 45-117 [facility] ALT [Catalytic activity/Vol] 20 U/L 13-56 [facility] Globulin (S) [Mass/Vol] 3.8 g/dL 2.2-4.2 [facility] Serum or plasma albumin kyree urement (mass/volume)Ordered By: Karlie Johnson on 07-03-2023 Albumin [Mass/Vol] 3.8 g/dL 3.2-5.0 [facility] Serum or plasma cholesterol in HDL measurement (mass/volume)Ordered By: Karlie Johnson on 07-03-2023 Cholesterol in HDL [Mass/Vol] 53 mg/dL >40 [facility] Comment on above: The drugs N-Acetylcy steine and Metamizole may falsely depress this assay. Reference Range HDL <40 mg/dL Low HDL Cholesterol HDL >or= 60 mg/dL High HDL Cholesterol Serum or plasma cholesterol in VLDL measurement (mass/volume)Ordered By: Karlie Johnson on 07-03-2023 Cholesterol in VLDL [Mass/Vol] 16 mg/dL 5-40 [facility] Serum or plasma low density lipoprotein (LDL) cholesterol measurement (mass/volume)Ordered By: Karlie Johnson on 07-03-2023 Cholesterol in LDL [Mass/Vol] 84 mg/dL 0-130 [facility] Thin prep Papanicolaou smear with manual screeningOrdered By: Karlie Johnson on 07-03-2023 Thin prep Papanicolaou smear with manual screening 15 U/L 15-37 [facility] Basophil percentageOrdered B y: Dr. Lopez on 03-16-2023 Bilirubin [Mass/Vol] 0.30 mg/dL 0.20-1.00 [facility] Comment on above: For patients on eltr ombopag therapy, use of [place] TBIL is not recommended. Cholesterol [Mass/Vol] 179 mg/dL <200 [facility] Comment on above: <200 mg/dL Desirable 200-240 mg/dL Borderline >240 mg/dL High Risk Protein [Mass/Vol] 7.8 g/dL 6.4-8.2 [facility] Triglyceride [Mass/Vol] 62 mg/dL <199 [facility] Comment on above: The drugs N-Acetylcy steine and Metamizole may falsely depress this assay.Serum Triglycerides Reference Interval Normal <150 mg/dL Borderline high 150 - 199 mg/dL High 200 - 499 mg/dL Very High > or = 500 mg/dL Direct bilirubinOrdered By: Dr. Lopez on 03-16-2023 Bilirubin.direct [Mass/Vol] 0.12 mg/dL 0.00-0.30 [facility] Laboratory - Chemistry and C hemistry - challengeOrdered By: Dr. Lopez on 03-16-2023 ALP [Catalytic activity/Vol] 88 U/L 45-117 [facility] ALT [Catalytic activity/Vol] 22 U/L 13-56 [facility] Globulin (S) [Mass/Vol] 4.0 g/dL 2.2-4.2 [facility] Serum or plasma albumin kryee urement (mass/volume)Ordered By: Dr. Lopez on 03-16-2023 Albumin [Mass/Vol] 3.8 g/dL 3.2-5.0 [facility] Serum or plasma cholesterol in HDL measurement (mass/volume)Ordered By: Dr. Lopez on 03-16-2023 Cholesterol in HDL [Mass/Vol] 66 mg/dL >40 [facility] Comment on above: The drugs N-Acetylcy steine and Metamizole may falsely depress this assay. Reference Range HDL <40 mg/dL Low HDL Cholesterol HDL >or= 60 mg/dL High HDL Cholesterol Serum or plasma cholesterol in VLDL measurement (mass/volume)Ordered By: Dr. Lopez on 03-16-2023 Cholesterol in VLDL [Mass/Vol] 12 mg/dL 5-40 [facility] Serum or plasma low density lipoprotein (LDL) cholesterol measurement (mass/volume)Ordered By: Dr. Lopez on 03-16-2023 Cholesterol in LDL [Mass/Vol] 101 mg/dL 0-130 [facility] Thin prep Papanicolaou smear with manual screeningOrdered By: Dr. Lopez on 03-16-2023 Thin prep Papanicolaou smear with manual screening 17 U/L 15-37 [facility] Basophil percentageOrdered B y: Dr. Lopez on 10-31-2022 Bilirubin [Mass/Vol] 0.50 mg/dL 0.20-1.00 [facility] Comment on above: For patients on eltr ombopag therapy, use of [place] TBIL is not recommended. Cholesterol [Mass/Vol] 176 mg/dL <200 [facility] Comment on above: <200 mg/dL Desirable 200-240 mg/dL Borderline >240 mg/dL High Risk Protein [Mass/Vol] 7.6 g/dL 6.4-8.2 [facility] Triglyceride [Mass/Vol] 88 mg/dL <199 [facility] Comment on above: The drugs N-Acetylcy steine and Metamizole may falsely depress this assay.Serum Triglycerides Reference Interval Normal <150 mg/dL Borderline high 150 - 199 mg/dL High 200 - 499 mg/dL Very High > or = 500 mg/dL Direct bilirubinOrdered By: Dr. Lopez on 10-31-2022 Bilirubin.direct [Mass/Vol] 0.10 mg/dL 0.00-0.30 [facility] Laboratory - Chemistry and C hemistry - challengeOrdered By: Dr. Lopez on 10-31-2022 ALP [Catalytic activity/Vol] 82 U/L 45-117 [facility] ALT [Catalytic activity/Vol] 22 U/L 13-56 [facility] Globulin (S) [Mass/Vol] 3.7 g/dL 2.2-4.2 [facility] Serum or plasma albumin kyree urement (mass/volume)Ordered By: Dr. Lopez on 10-31-2022 Albumin [Mass/Vol] 3.9 g/dL 3.2-5.0 [facility] Serum or plasma cholesterol in HDL measurement (mass/volume)Ordered By: Dr. Lopez on 10-31-2022 Cholesterol in HDL [Mass/Vol] 68 mg/dL >40 [facility] Comment on above: The drugs N-Acetylcy steine and Metamizole may falsely depress this assay. Reference Range HDL <40 mg/dL Low HDL Cholesterol HDL >or= 60 mg/dL High HDL Cholesterol Serum or plasma cholesterol in VLDL measurement (mass/volume)Ordered By: Dr. Lopez on 10-31-2022 Cholesterol in VLDL [Mass/Vol] 18 mg/dL 5-40 [facility] Serum or plasma low density lipoprotein (LDL) cholesterol measurement (mass/volume)Ordered By: Dr. Lopez on 10-31-2022 Cholesterol in LDL [Mass/Vol] 90 mg/dL 0-130 [facility] Thin prep Papanicolaou smear with manual screeningOrdered By: Dr. Lopez on 10-31-2022 Thin prep Papanicolaou smear with manual screening 12 U/L 15-37 [facility] Absolute lymphocyte counton 06-24-2022 Lymphocytes Auto (Unsp spec) [#/Vol] 2.61 10*3/uL 0.83-4.51 [facility] Work Phone: Basophil percentageon 2021 Basophils/100 WBC (Bld) 0.7 % 0-1 [facility] Work Phone: Chloride [Moles/Vol] 107 mmol/L 98-107 [facility] Work Phone: Eosinophils/100 WBC (Bld) 2.0 % 0-5 [facility] Work Phone: Glucose [Mass/Vol] 81 mg/dL 74-106 [facility] Work Phone: Neutrophils (Bld) [#/Vol] 6.7 10*3/uL 2.0-7.7 [facility] Work Phone: Neutrophils/100 WBC (Bld) 62.6 % 47-70 [facility] Work Phone: Potassium [Moles/Vol] 3.5 mmol/L 3.5-5.1 [facility] Work Phone: Sodium [Moles/Vol] 142 mmol/L 136-145 [facility] Work Phone: WBC (Bld) [#/Vol] 10.8 10*3/uL 4.4-11.0 [facility] Work Phone: Blood erythrocytes count (nu mber/volume)on 06-24-2022 RBC (Bld) [#/Vol] 4.27 10*6/uL 4.2-5.4 [facility] Work Phone: Blood hemoglobin measurement (mass/volume)on 06-24-2022 Hemoglobin (Bld) [Mass/Vol] 13.0 g/dL 12.0-15.0 [facility] Work Phone: Blood lymphocytes/100 leukoc yteson 06-24-2022 Lymphocytes/100 WBC (Bld) 24.3 % 19-41 [facility] Work Phone: Blood monocytes/100 leukocyt eson 06-24-2022 Monocytes/100 WBC (Bld) 9.7 % 0-10 [facility] Work Phone: Blood platelet mean volumeon 06-24-2022 Platelet mean volume (Bld) [Entitic vol] 10.1 fL 6.2-12.0 [facility] Work Phone: Determination of erythrocyte mean corpuscular volume (MCV)on 06-24-2022 MCV (RBC) [Entitic vol] 92.3 fL 81-99 [facility] Work Phone: Hematocrit Auto (Bld) [Volum e fraction]on 06-24-2022 Hematocrit (Bld) [Volume fraction] 39.4 % 37-47 [facility] Work Phone: Laboratory - Chemistry and C hemistry - challengeon 06-24-2022 CO2 [Moles/Vol] 31.0 mmol/L 21.0-32.0 [facility] Work Phone: [phone] Magnesium [Mass/Vol] 2.4 mg/dL 1.6-2.6 [facility] Work Phone: [phone] Urea nitrogen/Creatinine [Mass ratio] 18.8 mg/mg 10-20 [facility] Work Phone: Laboratory - Hematology and Cell countson 06-24-2022 Erythrocyte distribution width (RBC) [Entitic vol] 41.0 fL 35.1-43.9 [facility] Work Phone: [phone] Erythrocyte distribution width (RBC) [Ratio] 12.2 % 11.6-14.6 [facility] Work Phone: [phone] Immature granulocytes/100 WBC (Bld) 0.700 % 0.0-0.9 [facility] Work Phone: Comment on above: IG% - Immature Granu locytes (promyelocytes, myelocytes and metamyelocytes) > 1% indicates that a LEFT SHIFT is Present. MCH (RBC) [Entitic mass] 30.4 pg 27.0-32.0 [facility] Work Phone: [phone] Nucleated RBC/100 WBC (Bld) [Ratio] 0 % 0-5 [facility] Work Phone: [phone] MCHC Auto (RBC) [Mass/Vol]on 06-24-2022 MCHC (RBC) [Mass/Vol] 33.0 g/dL 32-36 [facility] Work Phone: No Panel Informationon 06-24 Estimated GFR (MDRD) Amer 81 mL/min >60 [facility] Work Phone: Comment on above: GFR Calc Estimated GFR (MDRD) Non-Af Amer 67 mL/min >60 [facility] Work Phone: [phone] Comment on above: Non- GFR Calc Platelets bldon 06-24-2022 Platelets (Bld) [#/Vol] 433 10*3/uL 150-450 [facility] Work Phone: [phone] Serum or plasma calcium kyere urement (mass/volume)on 06-24-2022 Calcium [Mass/Vol] 9.7 mg/dL 8.5-10.1 [facility] Work Phone: [phone] Serum or plasma creatinine m easurement (mass/volume)on 06-24-2022 Creatinine [Mass/Vol] 0.90 mg/dL 0.55-1.02 [facility] Work Phone: [phone] Comment on above: The validity of the calculated GFR & GFRAA in patients over 70 years has not been determined. Clinical correlation is essential. Serum or plasma urea nitroge n measurement (mass/volume)on 06-24-2022 Urea nitrogen [Mass/Vol] 17 mg/dL 7-18 [facility] Work Phone: [phone] Thin prep Papanicolaou smear with manual screeningon 06-24-2022 Thin prep Papanicolaou smear with manual screening 4 5-15 [facility] Work Phone: Laboratory - Chemistry and C hemistry - challengeon 06-09-2022 Cobalamin (Vitamin B12) [Mass/Vol] 362 pg/mL 211-911 [facility] Work Phone: Free T4 [Mass/Vol] 1.10 ng/dL 0.76-1.46 [facility] Work Phone: [phone] No Panel Informationon 06-09 Thyroid Stimulating Hormone (TSH) 1.73 uIU/mL 0.358-3.74 [facility] Work Phone: Basophil percentageon 2021 Bilirubin [Mass/Vol] 0.40 mg/dL 0.20-1.00 [facility] Work Phone: Comment on above: For patients on eltr ombopag therapy, use of [place] TBIL is not recommended. Cholesterol [Mass/Vol] 162 mg/dL <200 [facility] Work Phone: Comment on above: <200 mg/dL Desirable 200-240 mg/dL Borderline >240 mg/dL High Risk Protein [Mass/Vol] 7.2 g/dL 6.4-8.2 [facility] Work Phone: [phone] Triglyceride [Mass/Vol] 85 mg/dL <199 [facility] Work Phone: [phone] Comment on above: The drugs N-Acetylcy steine and Metamizole may falsely depress this assay.Serum Triglycerides Reference Interval Normal <150 mg/dL Borderline high 150 - 199 mg/dL High 200 - 499 mg/dL Very High > or = 500 mg/dL Direct bilirubinon Bilirubin.direct [Mass/Vol] 0.10 mg/dL 0.00-0.30 [facility] Work Phone: [phone] Laboratory - Chemistry and C hemistry - challengeon 05-15-2022 ALP [Catalytic activity/Vol] 80 U/L 45-117 [facility] Work Phone: [phone] ALT [Catalytic activity/Vol] 19 U/L 13-56 [facility] Work Phone: Globulin (S) [Mass/Vol] 3.6 g/dL 2.2-4.2 [facility] Work Phone: Serum or plasma albumin kyree urement (mass/volume)on 05-15-2022 Albumin [Mass/Vol] 3.6 g/dL 3.2-5.0 [facility] Work Phone: Serum or plasma cholesterol in HDL measurement (mass/volume)on 05-15-2022 Cholesterol in HDL [Mass/Vol] 56 mg/dL >40 [facility] Work Phone: Comment on above: The drugs N-Acetylcy steine and Metamizole may falsely depress this assay. Reference Range HDL <40 mg/dL Low HDL Cholesterol HDL >or= 60 mg/dL High HDL Cholesterol Serum or plasma cholesterol in VLDL measurement (mass/volume)on 05-15-2022 Cholesterol in VLDL [Mass/Vol] 17 mg/dL 5-40 [facility] Work Phone: Serum or plasma low density lipoprotein (LDL) cholesterol measurement (mass/volume)on 05-15-2022 Cholesterol in LDL [Mass/Vol] 89 mg/dL 0-130 [facility] Work Phone: Thin prep Papanicolaou smear with manual screeningon 05-15-2022 Thin prep Papanicolaou smear with manual screening 13 U/L 15-37 [facility] Work Phone: [facility] LEEANN CROCKETT ([id number]) 1960 F Date Time Provider Department 05/22[facility]20 [facility] During your visit today, we recorded the following information about you: Sara Serrano LPN 05/22/2020 11:01 AM Signed Patient calling was in urgent care 05/19 and put on bactrim rx. Patient said she has been sick Wednesday and Wednesday lightheaded, nausea, almost going to ER. Patient stopped taking the bactrim rx not taken any today. Patient asking if rx needs changed? Patient uses [facility] for her pharmacy. Please advise Leeroy Toney [...] Status:Closed by LEEANN SAMSON LPN on 05/22/20 [facility] Amanda 05-19-2020 [facility] Office Visit (UCWSTR ) LEEANN CROCKETT ([id number]) 1960 F Date Time Provider Department 05/19/20 8:15 AM NUSRAT HOLLAND During your visit today, we recorded the following information about you: Temperature Pulse Respiration Blood pressure 98.6 degrees 102/minute 16/minute 108/82 Weight 74.1 kg Nusrat Holland APRN.[facility] 05/19/2020 8:46 AM Signed ASSESSMENT/PLAN: 1. Right [...] DIP, URINE (POC) - URINE CULTURE Nusrat Holland APRN.CNP 05/19/2020 8:53 AM Signed Subjective HPI HPI [...] have confirmed and edited as necessary, the [facility] Review of Systems Constitutional: Negative for chills [...] detail warranting prompt ER evaluation. Nusrat Holland APRN.[employer] Referring Provider: SELF [200] Allergies As of [...] [N39.0] Dysuria [R30.0] Order(s):UA DIP, URINE (POC) [4561271] Order #: [id number]. #:[id number] URINE CULTURE [SQURCUL] Order #: [id number] sulfamethoxazole-trime thoprim (BACTRIM DS) 800-160 mg per [...] by NUSRAT HOLLAND CNP on 05/19/20 Normal [facility] PROGRESSon 05-19-2020 PROGRESS HNO ID: [id number] Author: Nusrat Holland Service: ? Author Type: [...] have confirmed and edited as necessary, the [facility] Review of Systems Constitutional: Negative for chills [...] detail warranting prompt ER evaluation. Nusrat Holland APRN.[employer] Normal [facility] Urine Cultureon 05-19-2020 Bacteria identified Cx Nom [...] F Ertapenem SUSCEPTIBLE <=0.5 F Critically abnormal [facility] Comment on above: Performed By: #### U RCUL #### [facility] [address] [address] Vital Signs Date Time Vital Sign Value Performing Clinician Facility 05-02-2025 09:01-0400 Body height 157.[address] Yennifer Johnson MD Work Phone: [facility] 05-02-2025 09:01-0400 Body mass index (BMI) [Ratio] 29 kg/m2 Dr. Yennifer Johnson MD Work Phone: [facility] 05-02-2025 09:01-0400 Body weight 71.[address] Yennifer Johnson MD Work Phone: [facility] 05-02-2025 09:01-0400 Diastolic blood pressure 68 mm[Hg] Dr. Yennifer Johnson MD Work Phone: [facility] 05-02-2025 09:01-0400 Heart rate 67 /min Dr. Yennifer Johnson MD Work Phone: [facility] 05-02-2025 09:01-0400 Respiratory rate 15 /min Dr. Yennifer Johnson MD Work Phone: [facility] 05-02-2025 09:01-0400 SaO2% (BldA) [Mass fraction] 97 % Dr. Yennifer Johnson MD Work Phone: [facility] 05-02-2025 09:01-0400 Systolic blood pressure 124 mm[Hg] Dr. Yennifer Johnson MD Work Phone: [facility] 04-26-2025 13:01-0400 Body height 157.[address] Yennifer Johnson MD Work Phone: [facility] 04-26-2025 13:01-0400 Body mass index (BMI) [Ratio] 28.7 kg/m2 Dr. Yennifer Johnson MD Work Phone: [facility] 04-26-2025 13:01-0400 Body weight 71.[address] Yennifer Johnson MD Work Phone: [facility] 04-26-2025 13:01-0400 Diastolic blood pressure 72 mm[Hg] Dr. Yennifer Johnson MD Work Phone: [facility] 04-26-2025 13:01-0400 Heart rate 82 /min Dr. Yennifer Johnson MD Work Phone: [facility] 04-26-2025 13:01-0400 Respiratory rate 18 /min Dr. Yennifer Johnson MD Work Phone: [facility] 04-26-2025 13:01-0400 Systolic blood pressure 118 mm[Hg] Dr. Yennifer Johnson MD Work Phone: [facility] 04-04-2024 12:06-0400 Body temperature 98.4 [degF] Tin West MD Work Phone: [facility] 04-04-2024 12:06-0400 Diastolic blood pressure 66 mm[Hg] Tin West MD Work Phone: [facility] 04-04-2024 12:06-0400 Respiratory rate 16 /min Tin West MD Work Phone: [facility] 04-04-2024 12:06-0400 SaO2% (BldA) [Mass fraction] 99 % Tin West MD Work Phone: [facility] 04-04-2024 12:06-0400 Systolic blood pressure 133 mm[Hg] Tin West MD Work Phone: [facility] 04-04-2024 03:27-0400 Body mass index (BMI) [Ratio] 32.5 kg/m2 Tin West MD Work Phone: [facility] 04-04-2024 03:27-0400 Body weight 80.6 kg Tin West MD Work Phone: [facility] 04-03-2024 12:15-0400 Heart rate 76 /min Tin West MD Work Phone: [facility] 12-16-2023 13:11-0500 Body height 157.[address] Yennifer Johnson Work Phone: [facility] 12-16-2023 13:11-0500 Body mass index (BMI) [Ratio] 29.2 kg/m2 Dr. Yennifer Johnson Work Phone: [facility] 12-16-2023 13:11-0500 Body weight 72.[address] Yennifer Johnson Work Phone: [facility] 12-16-2023 13:11-0500 Diastolic blood pressure 77 mm[Hg] Dr. Yennifer Johnson Work Phone: [facility] 12-16-2023 13:11-0500 Heart rate 73 /min Dr. Yennifer Johnson Work Phone: [facility] 12-16-2023 13:11-0500 Respiratory rate 18 /min Dr. Yennifer Johnson Work Phone: [facility] 12-16-2023 13:11-0500 SaO2% (BldA) [Mass fraction] 97 % Dr. Yennifer Johnson Work Phone: [facility] 12-16-2023 13:11-0500 Systolic blood pressure 123 mm[Hg] Dr. Yennifer Johnson Work Phone: [facility] 10-06-2023 11:20-0500 Body height 157.[address] Yennifer Johnson Work Phone: [facility] 10-06-2023 11:20-0500 Body mass index (BMI) [Ratio] 27.8 kg/m2 Dr. Yennifer Johnson Work Phone: [facility] 10-06-2023 11:20-0500 Body temperature 98.2 [degF] Dr. Yennifer Johnson Work Phone: [facility] 10-06-2023 11:20-0500 Body weight 68.[address] Yennifer Johnson Work Phone: [facility] 10-06-2023 11:20-0500 Diastolic blood pressure 63 mm[Hg] Dr. Yennifer Johnson Work Phone: [facility] 10-06-2023 11:20-0500 Heart rate 92 /min Dr. Yennifer Johnson Work Phone: [facility] 10-06-2023 11:20-0500 Respiratory rate 16 /min Dr. Yennifer Johnson Work Phone: [facility] 10-06-2023 11:20-0500 SaO2% (BldA) [Mass fraction] 96 % Dr. Yennifer Johnson Work Phone: [facility] 10-06-2023 11:20-0500 Systolic blood pressure 100 mm[Hg] Dr. Yennifer Johnson Work Phone: [facility] 09-27-2023 13:05-0500 Body mass index (BMI) [Ratio] 27.8 kg/m2 Dr. Yennifer Johnson Work Phone: [facility] 09-27-2023 13:05-0500 Body temperature 98.4 [degF] Dr. Yennifer Johnson Work Phone: [facility] 09-27-2023 13:05-0500 Body weight 71.[address] Yennifer Johnson Work Phone: [facility] 09-27-2023 13:05-0500 Diastolic blood pressure 80 mm[Hg] Dr. Yennifer Johnson Work Phone: [facility] 09-27-2023 13:05-0500 Heart rate 77 /min Dr. Yennifer Johnson Work Phone: [facility] 09-27-2023 13:05-0500 Respiratory rate 16 /min Dr. Yennifer Johnson Work Phone: [facility] 09-27-2023 13:05-0500 SaO2% (BldA) [Mass fraction] 98 % Dr. Yennifer Johnson Work Phone: [facility] 09-27-2023 13:05-0500 Systolic blood pressure 120 mm[Hg] Dr. Yennifer Johnson Work Phone: [facility] 07-12-2023 09:13-0400 Body mass index (BMI) [Ratio] 27.4 kg/m2 Dr. Yennifer Johnson Work Phone: [facility] 07-12-2023 09:13-0400 Body weight 70.[address] Yennifer Johnson Work Phone: [facility] 07-12-2023 09:13-0400 Diastolic blood pressure 84 mm[Hg] Dr. Yennifer Johnson Work Phone: [facility] 07-12-2023 09:13-0400 Heart rate 69 /min Dr. Yennifer Johnson Work Phone: [facility] 07-12-2023 09:13-0400 Respiratory rate 18 /min Dr. Yennifer Johnson Work Phone: [facility] 07-12-2023 09:13-0400 SaO2% (BldA) [Mass fraction] 98 % Dr. Yennifer Johnson Work Phone: [facility] 07-12-2023 09:13-0400 Systolic blood pressure 129 mm[Hg] Dr. Yennifer Johnson Work Phone: [facility] 02-24-2023 13:25-0400 Body temperature 98.5 [degF] Dr. Yennifer Johnson Work Phone: [facility] 02-24-2023 13:25-0400 Diastolic blood pressure 77 mm[Hg] Dr. Yennifer Johnson Work Phone: [facility] 02-24-2023 13:25-0400 Heart rate 67 /min Dr. Yennifer Johnson Work Phone: [facility] 02-24-2023 13:25-0400 Respiratory rate 16 /min Dr. Yennifer Johnson Work Phone: [facility] 02-24-2023 13:25-0400 SaO2% (BldA) [Mass fraction] 99 % Dr. Yennifer Johnson Work Phone: [facility] 02-24-2023 13:25-0400 Systolic blood pressure 138 mm[Hg] Dr. Yennifer Johnson Work Phone: [facility] 02-24-2023 06:15-0400 Body height 160.[address] Yennifer Johnson Work Phone: [facility] 02-24-2023 06:15-0400 Body mass index (BMI) [Ratio] 28 kg/m2 Dr. Yennifer Johnson Work Phone: [facility] 02-24-2023 06:15-0400 Body weight [address] Yennifer Johnson Work Phone: [facility] 07-27-2022 13:39-0400 Body height 160.[address] Yennifer Johnson Work Phone: [facility] 07-27-2022 13:39-0400 Body mass index (BMI) [Ratio] 28.7 kg/m2 Dr. Yennifer Johnson Work Phone: [facility] 07-27-2022 13:39-0400 Body temperature 97.5 [degF] Dr. Yennifer Johnson Work Phone: [facility] 07-27-2022 13:39-0400 Body weight 73.[address] Yennifer Johnson Work Phone: [facility] 07-27-2022 13:39-0400 Diastolic blood pressure 80 mm[Hg] Dr. Yennifer Johnson Work Phone: [facility] 07-27-2022 13:39-0400 Heart rate 83 /min Dr. Yennifer Johnson Work Phone: [facility] 07-27-2022 13:39-0400 Respiratory rate 14 /min Dr. Yennifer Johnson Work Phone: [facility] 07-27-2022 13:39-0400 SaO2% (BldA) [Mass fraction] 98 % Dr. Yennifer Johnson Work Phone: [facility] 07-27-2022 13:39-0400 Systolic blood pressure 130 mm[Hg] Dr. Yennifer Johnson Work Phone: [facility] 07-10-2022 10:57-0400 Body mass index (BMI) [Ratio] 28.7 kg/m2 Dr. Yennifer Johnson Work Phone: [facility] Work Phone: 07-10-2022 10:57-0400 Body temperature 97.2 [degF] Dr. Yennifer Johnson Work Phone: [facility] Work Phone: 07-10-2022 10:57-0400 Body weight 73.[address] Yennifer Johnson Work Phone: [facility] Work Phone: 07-10-2022 10:57-0400 Diastolic blood pressure 80 mm[Hg] Dr. Yennifer Johnson Work Phone: [facility] Work Phone: 07-10-2022 10:57-0400 Heart rate 71 /min Dr. Yennifer Johnson Work Phone: [facility] Work Phone: 07-10-2022 10:57-0400 Respiratory rate 16 /min Dr. Yennifer Johnson Work Phone: [facility] Work Phone: 07-10-2022 10:57-0400 SaO2% (BldA) [Mass fraction] 98 % Dr. Yennifer Johnson Work Phone: [facility] Work Phone: 07-10-2022 10:57-0400 Systolic blood pressure 122 mm[Hg] Dr. Yennifer Johnson Work Phone: [facility] Work Phone: 07-01-2022 08:03-0400 Body mass index (BMI) [Ratio] 28.8 kg/m2 Dr. Yennifer Johnson Work Phone: [facility] Work Phone: 07-01-2022 08:03-0400 Body temperature 98.3 [degF] Dr. Yennifer Johnson Work Phone: [facility] Work Phone: 07-01-2022 08:03-0400 Body weight 73.[address] Yennifer Johnson Work Phone: [facility] Work Phone: 07-01-2022 08:03-0400 Diastolic blood pressure 80 mm[Hg] Dr. Yennifer Johnson Work Phone: [facility] Work Phone: 07-01-2022 08:03-0400 Heart rate 85 /min Dr. Yennifer Johnson Work Phone: [facility] Work Phone: 07-01-2022 08:03-0400 Respiratory rate 18 /min Dr. Yennifer Johnson Work Phone: [facility] Work Phone: 07-01-2022 08:03-0400 SaO2% (BldA) [Mass fraction] 98 % Dr. Yennifer Johnson Work Phone: [facility] Work Phone: 07-01-2022 08:03-0400 Systolic blood pressure 130 mm[Hg] Dr. Yennifer Johnson Work Phone: [facility] Work Phone: 06-24-2022 14:49-0400 Body height 160.[address] Yennifer Johnson Work Phone: [facility] Work Phone: 06-24-2022 14:49-0400 Body mass index (BMI) [Ratio] 28.8 kg/m2 Dr. Yennifer Johnson Work Phone: [facility] Work Phone: 06-24-2022 14:49-0400 Body weight 73.[address] Yennifer Johnson Work Phone: [facility] Work Phone: 06-24-2022 14:49-0400 Diastolic blood pressure 79 mm[Hg] Dr. Yennifer Johnson Work Phone: [facility] Work Phone: 06-24-2022 14:49-0400 Heart rate 82 /min Dr. Yennifer Johnson Work Phone: [facility] Work Phone: 06-24-2022 14:49-0400 Respiratory rate 18 /min Dr. Yennifer Johnson Work Phone: [facility] Work Phone: 06-24-2022 14:49-0400 SaO2% (BldA) [Mass fraction] 97 % Dr. Yennifer Johnson Work Phone: [facility] Work Phone: 06-24-2022 14:49-0400 Systolic blood pressure 131 mm[Hg] Dr. eYnnifer Johnson Work Phone: [facility] Work Phone: 06-09-2022 14:55-0400 Body height 160.[address] Yennifre Johnson Work Phone: [facility] Work Phone: 06-09-2022 14:55-0400 Body mass index (BMI) [Ratio] 28.3 kg/m2 Dr. Yennifer Johnson Work Phone: [facility] Work Phone: 06-09-2022 14:55-0400 Body temperature 97.9 [degF] Dr. Yennifer Johnson Work Phone: [facility] Work Phone: 06-09-2022 14:55-0400 Body weight 72.[address] Yennifer Johnson Work Phone: [facility] Work Phone: 06-09-2022 14:55-0400 Diastolic blood pressure 82 mm[Hg] Dr. Yennifer Johnson Work Phone: [facility] Work Phone: 06-09-2022 14:55-0400 Heart rate 80 /min Dr. Yennifer Johnson Work Phone: [facility] Work Phone: 06-09-2022 14:55-0400 Respiratory rate 14 /min Dr. Yennifer Johnson Work Phone: [facility] Work Phone: 06-09-2022 14:55-0400 SaO2% (BldA) [Mass fraction] 98 % Dr. Yennifer Johnson Work Phone: [facility] Work Phone: 06-09-2022 14:55-0400 Systolic blood pressure 134 mm[Hg] Dr. Yennifer Johnson Work Phone: [facility] Work Phone: 05-04-2022 18:49-0400 Diastolic blood pressure 74 mm[Hg] [facility] Work Phone: 05-04-2022 18:49-0400 Heart rate 74 /min [facility] Work Phone: 05-04-2022 18:49-0400 Respiratory rate 16 /min [facility] Work Phone: 05-04-2022 18:49-0400 Systolic blood pressure 132 mm[Hg] [facility] Work Phone: 05-04-2022 16:54-0400 Body height 160.02 cm [facility] Work Phone: 05-04-2022 16:54-0400 Body mass index (BMI) [Ratio] 30.4 kg/m2 [facility] Work Phone: 05-04-2022 16:54-0400 Body temperature 97.1 [degF] [facility] Work Phone: 05-04-2022 16:54-0400 Body weight 77.9 kg [facility] Work Phone: 05-04-2022 16:54-0400 SaO2% (BldA) [Mass fraction] 100 % [facility] Work Phone: Encounters Encounter Date Encounter Type Care Provider Facility Start: 05-11-2025 ambulatory [facility] Facili ty:[facility] Start: 05-02-2025 End: 05-02-[address] Cy Peterson MD -[facility] Work Phone: Start: 05-02-2025 End: 05-02-[address] Yennifer Johnson MD Work Phone: -[facility] Start: 04-26-2025 End: 04-26-2025 Patient encounter procedure Karlie Johnson [employer] ANALYST-C -[facility] Work Phone: Start: 04-26-2025 End: 04-26-[address] Yennifer Johnson MD Work Phone: -[facility] Start: 04-26-2025 End: 04-26-2025 ambulatory [facility] Facility:[facility] Start: 03-24-2025 End: 03-24-[address] Yennifer Johnson MD Work Phone: [facility] Work Phone: Start: 03-24-2025 End: 03-24-2025 Patient encounter procedure Larry Rodriguez AIR POLLUTION ANALYST-C -Laboratory Work Phone: Start: 03-24-2025 End: 03-24-2025 ambulatory [facility] Facility:[facility] Start: 10-24-2024 End: 10-24-2024 ambulatory [facility] Facility:[facility] Start: 10-21-2024 End: 10-21-2024 ambulatory Karlie Johnson NP Facility:[facility] Start: 08-07-2024 Encounter for genera l adult medical examination without abnormal findings [facility] Start: 07-10-2024 End: 07-10-2024 ambulatory [facility] Facility:[facility] Start: 07-10-2024 End: 07-10-2024 ambulatory [facility] Facility:[facility] Start: 06-15-2024 End: 06-15-2024 ambulatory Yennifer Johnson Facility:[facility] Start: 04-03-2024 End: 04-04-2024 Subsequent hospital visit by physician Tin West MD Work Phone: [facility] Comment on above: Arthritis of left kn ee (Primary Dx); Urinary tract infection without hematuria, site unspecified Start: 03-21-2024 End: 03-21-2024 ambulatory [facility] Start: 03-21-2024 End: 03-21-2024 Encounter for other preprocedural examination [facility] Start: 03-21-2024 End: 03-21-2024 ambulatory [facility] Start: 03-21-2024 End: 03-21-2024 Encounter for other preprocedural examination [facility] Start: 03-17-2024 ambulatory [facility] Start: 02-25-[address] Odessa Johnson MD Work Phone: [facility] Comment on above: The patient complain s of chronic dyspnea on exertion which is unchanged over several years. This dates back to the extensive evaluation that was done in 2018 including a normal left heart cath. She has had no change in her recent exercise tolerance. Her main limitation is her left knee. Start: 01-17-2024 Non-patient / Non-visit Dr. Roz Johnson Work Phone: [facility] Work Phone: Start: 01-17-2024 Non-patient / Non-visit Dr. Roz Johnson Work Phone: [facility] Start: 01-17-2024 End: 01-17-[address] Yennifer Johnson Work Phone: [facility] Work Phone: Start: 01-17-2024 End: 01-17-[address] [facility] Work Phone: Start: 12-27-2023 Non-patient / Non-visit Dr. Roz Johnson Work Phone: [facility] Work Phone: Start: 12-27-2023 Non-patient / Non-visit Dr. Roz Johnson Work Phone: [facility] Start: 12-27-2023 End: 12-27-[address] [facility]ennifer [facility] Work Phone: Start: 12-20-[address] Elder Johnson [facility] Work Phone: Start: 12-16-2023 End: 12-16-[address] Yennifer Johnson Work Phone: [facility] Work Phone: Start: 12-16-2023 End: 12-16-[address] Yennifer Johnson Work Phone: [facility] Work Phone: Start: 10-21-2023 End: 10-21-[address] Yennifer Johnson Work Phone: [facility] Work Phone: Start: 10-21-2023 End: 10-21-[address] Yennifer Johnson Work Phone: [facility]Outpatient Breast Imaging Work Phone: Start: 10-06-2023 End: 10-06-[address] Yennifer Johnson Work Phone: [facility] Work Phone: Start: 09-27-2023 End: 09-27-2023 Encounter for general adult medical examination without abnormal findings Dr. Yennifer Johnson Work Phone: [facility] Start: 09-27-2023 End: 09-27-[address] Yennifer Johnson Work Phone: [facility] Work Phone: Start: 07-12-2023 End: 07-12-[address] Yennifer Johnson Work Phone: [facility] Work Phone: Start: 07-03-2023 End: 07-03-[address] Yennifer Johnsno Work Phone: [facility] Work Phone: Start: 07-03-2023 End: 07-03-[address] Yennifer Johnson Work Phone: [facility]Labor[facility] Work Phone: Start: 05-05-2023 End: 05-05-[address] Yennifer Johnson Work Phone: [facility] Work Phone: Start: 05-05-2023 End: 05-05-[address] Yennifer Johnson Work Phone: [facility]Physical Therapy Work Phone: Start: 04-06-2023 End: 04-06-[address] Yennifer Johnson Work Phone: [facility] Work Phone: Start: 03-26-[address] Robert Johnson Work Phone: [facility] Therapy Start: 03-16-2023 End: 03-16-[address] Yennifer Johnson Work Phone: [facility] Work Phone: Start: 03-16-2023 End: 03-16-[address] Yennifer Johnson Work Phone: [facility]Laboratory Start: 03-09-2023 End: 03-09-[address] Yennifer Johnson Work Phone: [facility] Start: 02-26-2023 End: 02-26-[address] Yennifer Johnson Work Phone: [facility] Start: 02-24-2023 Non-patient / Non-visit Dr. Roz Johnson Work Phone: [facility] Start: 02-24-2023 End: 02-24-2023 Admission to same day surgery center Dr. Yennifer Johnson Work Phone: [facility] Day [facility] Start: 02-24-2023 End: 02-24-[address] Yennifer Johnson Work Phone: [facility] Work Phone: Start: 02-04-2023 End: 02-04-[address] Yennifer Johnson Work Phone: [facility] Start: 02-02-2023 End: 02-02-[address] Yennifer Johnson Work Phone: [facility] Work Phone: Start: 02-02-2023 End: 02-02-[address] Yennifer Johnson Work Phone: [facility] Start: 01-19-2023 End: 01-19-[address] Yennifer Johnson Work Phone: [facility] Start: 10-31-2022 End: 10-31-[address] Yennifer Johnson Work Phone: [facility] Work Phone: Start: 10-31-2022 End: 10-31-[address] Yennifer Johnson Work Phone: [facility]Laboratory Start: 09-28-2022 End: 09-28-[address] Yennifer Johnson Work Phone: [facility] Work Phone: Start: 09-28-2022 End: 09-28-[address] Yennifer Johnson Work Phone: [facility]Outpatient Breast Imaging Start: 08-06-2022 End: 08-06-[address] Yennifer Johnson Work Phone: [facility] Start: 07-28-2022 End: 07-28-[address] Yennifer Johnson Work Phone: [facility] Work Phone: Start: 07-28-2022 End: 07-28-[address] Yennifer Johnson Work Phone: [facility] Start: 07-27-2022 End: 07-27-[address] Yennifer Johnson Work Phone: [facility] Start: 07-10-2022 End: 07-10-[address] Yennifer Johnson Work Phone: [facility] Start: 09-07-[address] Elder Johnson Work Phone: [facility] Start: 07-01-2022 End: 07-01-2022 Encounter for general adult medical examination without abnormal findings Dr. Yennifer Johnson Work Phone: [facility] Start: 07-01-2022 End: 07-01-2022 Non-patient / Non-visit Dr. Yennifer Johnson Work Phone: [facility] Start: 06-24-2022 End: 06-24-[address] Yennifer Johnson Work Phone: [facility] Work Phone: Start: 06-24-2022 End: 06-24-[address] Yennifer Johnson Work Phone: [facility] Start: 06-09-2022 End: 06-09-[address] Yennifer Johnson Work Phone: [facility]-Laboratory, [place] Start: 06-09-2022 End: 06-09-[address] Yennifer Johnson Work Phone: [facility] Start: 05-15-2022 End: 05-15-2022 Patient encounter procedure [facility] Start: 05-04-2022 End: 05-04-2022 Emergency department patient visit [facility]Emergency Department Start: 07-08-2021 Patient encounter status [facility] Start: 04-08-2021 Patient encounter status [facility] Procedures Date Procedure Procedure Detail Performing Clinician Start: 04-26-2025 Total iron binding c apacity measurement Dr. Yennifer Johnson MD Work Phone: Start: 04-04-2024 Urinalysis microscop ic panel - Urine Qualitative by Automated Keshawn Stevenson [employer] Work Phone: Start: 04-04-2024 Urnls dip stick/tabl et reagent auto microscopy Keshawn Stevenson [employer] Work Phone: Start: 04-04-2024 Radiologic exam ches t single view Keshawn Stevenson [employer] Work Phone: Start: 04-04-2024 Basic metabolic pane l calcium total Tin West MD Work Phone: Start: 04-03-2024 Radiologic examinati on knee 1/2 views Tin West MD Work Phone: Start: 04-03-2024 PULSE OXIMETRY, CONTINUOUS Israel Corea MD Work Phone: Start: 10-21-2023 Screening mammography Shira Johnson Work Phone: Start: 02-24-[address] Yennifer Johnson Work Phone: Start: 02-02-2023 MRI of joint of lowe r extremity Dr. Yennifer Johnson Work Phone: Start: 09-28-2022 Screening mammography Shira Johnson Work Phone: Start: 08-06-2022 Radiologic examinati on of knee Dr. Yennifer Johnson Work Phone: Start: 07-28-[address] Yennifer Johnson Work Phone: Plan of Treatment Date Care Activity Detail Author Start: 06-25-2024 Influenza vaccination Influenz a Vaccine (Season Ended) [facility] Start: 04-11-2024 End: 04-04-2025 Basic metabolic 2000 panel - Serum or Plasma Basic metabolic panel Lab Routine Arthritis of left knee Urinary tract infection without hematuria, site unspecified Expected: 04/11/2024 (Approximate), Expires: 04/04/2025 [facility] Work Phone: Comment on above: Expected: 04/11/2024 (Approximate), Expires: 04/04/2025 Start: 04-11-2024 End: 04-04-2025 CBC panel - Blood by Automated count CBC Lab Routine Arthritis of left knee Urinary tract infection without hematuria, site unspecified Expected: 04/11/2024 (Approximate), Expires: 04/04/2025 [facility] Work Phone: Comment on above: Expected: 04/11/2024 (Approximate), Expires: 04/04/2025 Start: 12-16-2023 Evaluation of diagno stic study results [facility] Start: 06-25-2023 COVID-19 Vaccine () COVID-19 Vaccine () [facility] Start: 03-09-2023 Patient referral [facility] Work Phone: Start: 02-24-2023 Anes open/surg arthroscopic proc knee joint nos ANESTH KNEE JOINT SURGERY [facility] Start: 02-24-2023 Arthrs kne surg w/meniscectomy med/lat w/shvg KNEE ARTHROSCOPY[facility] [facility] Start: 02-24-2023 Injection aa&/strd femoral nerve NJX AA&/STRD FEMORAL NRV IMG [facility] Start: 02-24-2023 Notification of physician [facility] Start: 02-24-2023 Application of device [facility] Start: 02-24-2023 Application of ice collar, cap or bag [facility] Start: 02-24-2023 Assessment of risk o f venous thromboembolism [facility] Start: 02-24-2023 Catheterization of vein [facility] Start: 02-24-2023 Deep breathing and coughing exercises [facility] Start: 02-24-2023 Following clinical pathway protocol [facility] Start: 02-24-2023 Gait training procedure [facility] Start: 02-24-2023 Incentive spirometry [facility] Start: 02-24-2023 Introduction of urin jose c catheter [facility] Start: 02-24-2023 End: 02-24-2023 Patient discharge [facility] Start: 02-24-2023 Patient education [facility] Start: 02-24-2023 Provision of activit y privileges [facility] Start: 02-24-2023 Taking patient vital signs [facility] Start: 02-24-2023 Vital signs measurements [facility] Start: 02-24-2023 End: 02-24-2023 [facility] Start: 02-24-2023 Medication education [facility] Start: 06-09-2022 Patient referral [facility] Work Phone: Start: 2020 RSV patient s and/or patients aged 60+ years (1 - 1-dose 60+ series) RSV patients and/or patients aged 60+ years (1 - 1-dose 60+ series) [facility] Start: 01-14-2016 DTaP/Tdap/Td Vaccine s (2 - Tdap) DTaP/Tdap/Td Vaccines (2 - Tdap) [facility] Start: 2010 Zoster Vaccines (1 of 2) Zoste r Vaccines (1 of 2) [facility] Start: 2000 Screening for malign ant neoplasm of breast Mammogram [facility] Start: 1978 Diabetes mellitus screening Diabetes Screening [facility] Start: 1978 [facility] Start: 1966 Pneumococcal Vaccine : 65+ Years (1 of 2 - PCV) Pneumococcal Vaccine: 65+ Years (1 of 2 - PCV) [facility] Start: 1966 Pneumococcal Vaccine : Pediatrics (0 to 5 Years) and At-Risk Patients (6 to 64 Years) (1 of 2 - PCV) Pneumococcal Vaccine: Pediatrics (0 to 5 Years) and At-Risk Patients (6 to 64 Years) (1 of 2 - PCV) [facility] Start: 1961 MMR Vaccines (1 of 1 - Standard series) MMR Vaccines (1 of 1 - Standard series) [facility] Start: 1960 HIV screening HIV Screening [facility] Start: 1960 Lipid panel Lipid Panel [facility] Start: 1960 Screening for malign ant neoplasm of colon [facility] Start: 1960 Yearly Adult Physical Yearly Adult P hysical [facility] 24 Hour ECG [facility] End: 04-04-2024 Bacteria identified in Urine by Culture [facility] Work Phone: Comment on above: Once (Lab) for 1 Occ urrences starting 04/04/2024 until 04/04/2024 C reactive protein [Mass/volume] in Serum or Plasma [facility] Cardiac event recording [facility] Work Phone: CBC W Auto Different ial panel - Blood [facility] Comprehensive metabo lic 2000 panel - Serum or Plasma [facility] Electrocardiogram, 12-lead PRN ACS symptoms Electrocardiogram, 12-lead PRN ACS symptoms ECG Routine As needed until discontinued starting 04/03/2024 [facility] Work Phone: Comment on above: As needed until disc ontinued starting 04/03/2024 Electrocardiogram, 12-lead PRN ACS symptoms Electrocardiogram, 12-lead PRN ACS symptoms ECG Routine 04/04/2024 7:42 AM EDT [facility] Work Phone: Erythrocyte sediment ation rate [facility] End: 04-04-[address] Tube [facility] Work Phone: Comment on above: Once for 1 Occurrenc es starting 04/04/2024 until 04/04/2024 Ferritin [Mass/volum e] in Serum or Plasma [facility] Folate [Moles/volume ] in Serum or Plasma [facility] End: 04-04-2024 Rondon Catheter Removal Rondon Catheter Removal Procedures Routine Once for 1 Occurrences starting 04/04/2024 until 04/04/2024 [facility] Work Phone: Comment on above: Once for 1 Occurrenc es starting 04/04/2024 until 04/04/2024 End: 04-03-2024 Incentive spirometry Instruct Incentive spirometry Instruct Respiratory Care Routine Once for 1 Occurrences starting 04/03/2024 until 04/03/[address] [facility] Service Area Work Phone: Comment on above: Once for 1 Occurrenc es starting 04/03/2024 until 04/03/2024 Iron and Iron bindin g capacity panel - Serum or Plasma [facility] Magnesium measurement [facility] MG Breast - bilatera l Screening [facility] Work Phone: Patient Education [facility] Work Phone: Patient referral [facility] Work Phone: Procedure [facility] Reticulocyte count [facility] Serum inorganic phos phate measurement [facility] End: 04-04-2024 Urinalysis complete W Reflex Culture panel - Urine [facility] Service Area Work Phone: Comment on above: Once (Lab) for 1 Occ urrences starting 04/04/2024 until 04/04/2024 US Carotid arteries [facility] Vitamin B12 measurement [facility] Immunizations Immunization Date Immunization Notes Care Provider Fa cility 08-31-2022 influenza virus vaccine, unspecified formulation Tin West MD Work Phone: [facility] Work Phone: 06-17-2021 Covid (Pfizer) [facility] Payers Date Payer Category Payer Self-pay [id number] 2023 Unknown [id number] 2017 Unknown [id number] 2005 Unknown [id number] 1960 Unknown [id number] 2.16.8 [id number] 1960 Unknown [id number] 2.16.8 [id number] 1960 Unknown [id number] 2.16.8 [id number] Medicare [id number] Unknown [id number] 2.16.8 [id number] Unknown [id number] 2.16.8 [id number] Unknown [id number] 2.16.8 [id number] Unknown [id number] 2.16.8 [id number] Unknown [id number] 2.16.8 [id number] Unknown [id number] 2.16.8 [id number] Unknown [id number] 2.16.8 [id number] Unknown [id number] 2.16.8 [id number] Unknown [id number] 2.16.8 [id number] Unknown [id number] 2.16.8 [id number] Social History Date Type Detail Facility Start: 05-04-2022 End: 12-16-2023 Tobacco smoking status MSIS Unknown if ever smoked [facility] Start: 07-18-2019 Non-smoker [facility] Start: 1960 Sex Assigned At Female [facility] Start: 12-16-2023 End: 03-21-2024 Tobacco smoking status NHIS Ex-smoker [facility] Work Phone: Start: 02-23-1980 End: 02-23-1996 History of tobacco use Current smoker [facility] Work Phone: Start: 02-23-1980 End: 02-23-1996 History of tobacco use Cigarette Smoker [facility] Work Phone: Start: 03-21-2024 End: 04-03-2024 Cigarettes smoked current (pack per day) - Reported 0.4 [facility] Start: 03-21-2024 Tobacco use and exposure Smokeless tobacco non-user [facility] Work Phone: Start: 04-03-2024 Alcoholic beverage intake Current drinker of alcohol (finding) [facility] Work Phone: Start: 04-03-2024 B1300 Health Literacy [facility] How often do you nee d to have someone help you when you read instructions, pamphlets, or other written material from your doctor or pharmacy [SILS] Never [facility] Has the electric, gas, oil, or water Payward threatened to shut off services in your home in past 12Mo No [facility] Work Phone: Are you now , , , , never or living with a partner? [facility] Work Phone: How often to you hav e a drink containing alcohol? Never [facility] Work Phone: Do you feel stress - tense, restless, nervous, or anxious, or unable to sleep at night because your mind is troubled all the time - these days [OSQ] Not at all [facility] Work Phone: (I/We) worried whether (my/our) food would run out before (I/we) got money to buy more. Never true [facility] Work Phone: Start: 03-21-2024 Alcohol Comment Glass of wine maybe once a month [facility] Work Phone: Start: 03-19-2024 Gender identity Identifies as female gender (finding) [facility] Work Phone: Start: 03-24-2024 End: 04-03-2024 Exposure to SARS-CoV-2 (event) Not sure [facility] NEGATED: Highlighted row [facility] Medical Equipment Procedure Code Equipment Code Equipment [...] HEMOSTAT ABS FDA Start: 07-25-2019 Breast reduction RGACE 3GRM HEMOSTAT ABS FDA Start: 07-25-2019 Breast [...] HEMOSTAT ABS FDA Start: 07-25-2019 Breast reduction GARCE 3GRM HEMOSTAT ABS FDA Start: 07-25-2019 Breast reduction GRACE 3GRM HEMOSTAT ABS FDA Start: 07-25-2019 Breast reduction GRACE 3GRM HEMOSTAT ABS FDA Start: 07-25-2019 Patella, Triathl on, Asymmetric, Size A32 - [id number] Start: 04-03-2024 Component, Ps Femoral, P3, Beaded W/Pa, Left - [id number] Start: 04-03-2024 Baseplate, Triathlon Tritanium, Size 3, 44mm - [id number] Start: 04-03-2024 Size 3, 11mm Triathlon Ps Tibial Insert - [id number] Start: 04-03-2024 Goals Date Patient Goal Desired Activity /State Mental Status Date Assessment Result Facility 02-24-2023 Cognitive function Level Of Cons ciousness Awake;Appropriate;Follows Commands;Drowsy [facility] Work Phone: 02-24-2023 Cognitive function Voice/Name [facility] Work Phone: Clinical Notes 02-24-2023 to 05-02-2025 Note Date & Type Note Facility 05-02-2025 Progress note [facility] 04-26-2025 Progress note Note Date/Time April 26, 2025 1:29pm [facility] [address] [place] [address] OFFICE VISIT Date of Service: 04/26/25 MR#: [id number] Acct: [id number] Name: LEEANN CROCKETT Rep #: [id number] : 1960 Provider: GINO Johnson Age/Sex: 65/F Location: [facility] Status: Signed HPI HPI History of Present [...] Monitor Intake Visit Reasons: 1 Y FU Plastic Joint Maker Required: No Accompanied by: Self Is patient [...] the past year?: No PFSH Medical History (Reviewed 04/26/25 @ 13:09 by Karlie Johnson AIR POLLUTION ANALYST, AIR POLLUTION ANALYST-C) High cholesterol Tear of medial meniscus of [...] ventricular hypertrophy Syncope and collapse Surgical History (Reviewed 04/26/25 @ 13:09 by Karlie Johnson AIR POLLUTION ANALYST, AIR POLLUTION ANALYST-C) History of knee surgery H/O arthroscopy of left knee History of cardiac catheterization Hx of colonoscopy History of bilateral breast reduction surgery History of left heart catheterization (05/25/18) History of lumpectomy of left breast History of partial hysterectomy Hx of tonsillectomy H/O tubal ligation Family History (Reviewed 04/26/25 @ 13:09 by Karlie Johnson AIR POLLUTION ANALYST, AIR POLLUTION ANALYST-C) Father CVA (cerebral vascular accident) Diabetes Hypertension [...] Leonarda CI: 3.03 PW: 08/03 7 PA: / 14 RV: 27/-1 5 RA: 01/29 5 [...] updated, as necessary. Follow Up: 3 Months (AIR POLLUTION ANALYST/PA) Coding Level of Care Code Off vis,est,level 4 Diagnoses Paroxysmal atrial fibrillation I48.0 Mixed hyperlipidemia E78.2 Palpitations R00.2 Dyspnea on exertion R06.09 Coding Level of Care Code Off vis,est,level 4 Diagnoses Paroxysmal atrial fibrillation I48.0 Mixed hyperlipidemia E78.2 Palpitations R00.2 Dyspnea on exertion R06.09 Clinical Quality Measures Falls Risk Screening/Assistive Devices Have you fallen in the past year?: No 04/26/25 1329 <Electronically signed by Karlie CHRISTIAN> Date _ Karlie CHRISTIAN Cosigner Signature: Date (if applicable) CC: Dr. Yennifer Johnson MD ~ [facility] Work Phone: 1(945) 523-228507-03-2025 Evaluation note* Diagnosis Onset Date Resolution Status Admit Date Dyspnea on exertion acute April 26, 2025 12:56pm Paroxysmal atrial fibrillation acute April 26, 2025 12:56pm Mixed hyperlipidemia chronic April 26, 2025 12:56pm Palpitations chronic April 26 12:56pm [place] [employer] [facility] Work Phone: 1(890) 687-728707-03-2025 Evaluation note* Diagnosis Onset Date Resolution Status Admit Date Dyspnea on exertion acute April 26, 2025 12:56pm Paroxysmal atrial fibrillation acute April 26, 2025 12:56pm Mixed hyperlipidemia chronic April 26, 2025 12:56pm Palpitations chronic April 26 12:56pm Thrombocytosis chronic May 02, 2025 8:49am [facility] Work Phone: 1(540) 397-202207-03-2025 Progress [facility] [address] [place], [place] [address] OFFICE VISIT Date of Service: 04/26/25 MR#: [id number] Acct: [id number] Name: LEEANN CROCKETT Rep #: [id number] : 1960 Provider: GINO Johnson Age/Sex: 65/F Location: [facility] Status: Signed HPI HPI History of Present [...] Monitor Intake Visit Reasons: 1 Y FU Plastic Joint Maker Required: No Accompanied by: Self Is patient [...] the past year?: No PFSH Medical History (Reviewed 04/26/25 @ 13:09 by Karlie Johnson AIR POLLUTION ANALYST, AIR POLLUTION ANALYST-C) High cholesterol Tear of medial meniscus of [...] of tonsillectomy H/O tubal ligation Family History (Reviewed 04/26/25 @ 13:09 by Karlie Johnson AIR POLLUTION ANALYST, AIR POLLUTION ANALYST-C) Father CVA (cerebral vascular accident) Diabetes Hypertension High cholesterol Mother Breast cancer Cancer Diabetes Hypertension Grandmother CAD (coronary artery disease) Myocardial infarction, Onset Age: 68 Brother Diabetes Aunt Cancer Social History (Reviewed 04/26/25 @ 13:09 by Karlie Johnson AIR POLLUTION ANALYST, AIR POLLUTION ANALYST-C) Smoking Status: Former smoker quit date: 06/25/96 [...] updated, as necessary. Follow Up: 3 Months (AIR POLLUTION ANALYST/PA) Coding Level of Care Code Off vis,est,level 4 Diagnoses Paroxysmal atrial fibrillation I48.0 Mixed hyperlipidemia E78.2 Palpitations R00.2 Dyspnea on exertion R06.09 Coding Level of Care Code Off vis,est,level 4 Diagnoses Paroxysmal atrial fibrillation I48.0 Mixed hyperlipidemia E78.2 Palpitations R00.2 Dyspnea on exertion R06.09 Clinical Quality Measures Falls Risk Screening/Assistive Devices Have you fallen in the past year?: No 04/26/25 1329 AIR POLLUTION ANALYST AIR POLLUTION ANALYST-C> Date _ Karlie Johnson AIR POLLUTION ANALYST AIR POLLUTION ANALYST-C Cosigner Signature: Date (if applicable) CC: Dr. Yennifer Johnson MD ~ [facility]06-11-2024 History of Present illness Narrative* [...] VCs for safe sequencing provided. Outcome Measures: [facility] Basic Mobility Turning from your back [...] completion of functional mobility. * Keshawn Stevenson, INSURANCE MARKETING REP-[employer] MANAGEMENT - 04/04/2024 11:59 AM EDT Celeste Crockett [...] am INDICATION: Signs/Symptoms:leukocytosis. COMPARISON: None. ACCESSION NUMBER(S): [id number] ORDERING CLINICIAN: KESHAWN STEVENSON TECHNIQUE: Single AP view chest FINDINGS: Cardiac silhouette is within normal limits. No infiltrate or effusion identified. Visualized osseous structures demonstrate glenohumeral joint osteoarthritis bilaterally. Impression: 1. No acute process MACRO: None Signed by: Rafael Shepard 04/04/2024 9:46 AM Dictation workstation: [id number] Physical Exam Vitals reviewed. Constitutional: Appearance: Normal [...] am INDICATION: Signs/Symptoms:leukocytosis. COMPARISON: None. ACCESSION NUMBER(S): [id number] ORDERING CLINICIAN: KESHAWN STEVENSON TECHNIQUE: Single AP view chest FINDINGS: Cardiac silhouette is within normal limits. No infiltrate or effusion identified. Visualized osseous structures demonstrate glenohumeral joint osteoarthritis bilaterally. 1. No acute process MACRO: None Signed by: Rafale Shepard 04/04/2024 9:46 AM Dictation workstation:[id number] XR knee left 1-2 views Result Date: 04/03/2024 Interpreted By: Herman Marquez, STUDY: XR KNEE LEFT 1-2 VIEWS; 04/03/2024 10:27 am INDICATION: Signs/Symptoms:Post-op knee. COMPARISON: None. ACCESSION NUMBER(S): [id number] ORDERING CLINICIAN: TIN WEST FINDINGS: Components of left knee arthroplasty are in anatomic alignment. Postoperative soft tissue gas. New left knee arthroplasty in anatomic alignment. MACRO: None Signed by: Herman Marquez 04/03/2024 11:33 AM Dictation workstation: [id number] Assessment/Plan Principal Problem: Arthritis of left knee [...] Yellow, Dark-Yellow Appearance, Urine Clear Clear Specific Dexter, Urine 1.011 1.005 - 1.035 pH, Urine [...] Occupational Therapy OT Treatment Patient Name: Leeann Alonso Today's Date: 04/04/2024 Time Calculation Start Time: 0810 Stop Time: 0849 Time Calculation (min): 39 [...] Up in chair, Alarm off, caregiver present (home appliance technician entering) OT Assessment Results: Decreased ADL [...] gown LE Dressing LE Dressing Adaptive Equipment: Information Services Assistant, Sock aide Sock Level of Assistance: Setup, [...] functional mobility short household distance x2 at FWW with CGA with cues for carryoverof TKR, demonstrating fair balance throughout task Standing Balance: Dynamic Standing Balance Dynamic Standing-Balance: Forward lean, Reaching for objects, Reaching across midline Dynamic Standing-Comments: fair balance during grooming tasks sinkside Outcome Measures:[facility] Daily Activity Putting on and taking [...] Goal: Goal 3 Outcome: Progressing * Elizabeth Song, PT - 04/04/2024 9:15 AM EDT Physical [...] 1: VCs for safe sequencing Outcome Measures: [facility] Basic Mobility Turning from your back [...] RADHA Quan - 04/04/2024 8:45 AM EDT [facility] sent referral information to pts choice [facility] via [email or web address] on 04/03, have not received any response. [facility] faxed information to them at [phone] this morning, contact information included on facesheet with request for response. Update: [facility] confirmed they can accept the pt. Hospitalist [employer] SALES [employer] MANAGEMENT able to input corrected homecare order, this along with other dc information was sent to [facility]. 04/04/24 0845 Discharge Planning Patient expects to be discharged to: Home with 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 [facility] received message from hospitalist AIR POLLUTION ANALYST with information on which homecare agency [place] like [place]. [facility] called pts room and spoke with [...] PCP is Dr Johnson, prescriptions filled through [facility] [id number] [facility], [facility]. Pt confirmed she would like [facility], referral sent via careport, await response. 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 documented in this [facility] Work Phone: 1(243) 907-281906-11-2024 Hospital course Narrative* Tin West MD - [...] appointments. Tin West MD [facility] Phone: 1(870) 676-968106-11-2024 Nurse Note* Pao Foley RN - 04/04/2024 7:19 AM EDT Assumed care of patient. Patient is resting in bed, and talking on her phone. She was made aware that therapy would be in to work with her this morning. She will be up to a chair. Call light is in place will continue to monitor. [facility]06-11-2024 Nurse Note* Pao Foley RN - 04/04/2024 [...] iv fluids per order [facility] Work Phone: 1(309) 438-103906-11-2024 Plan of care note* Care Plan - [...] ability to cope with hospitalization/illness Outcome: Progressing [facility] Work Phone: 1(979) 747-478706-11-2024 Miscellaneous Notes* Care Plan - Alyssa Graham [...] detailed initial consult and physical exam in [facility] by Larisa Stevenson. I talked in detail with [employer] SERV[employer] SALES AND MANAGEMENT regarding assessment and plan. I agree with [...] dermatology disease. Atrial fibrillation Patient see regular manufacturing accountant. Continue with flecainide, Cardizem ,Eliquis. Left knee osteoarthritis Status post left total knee arthroplasty Continue with pain medication Physical therapy to evaluate her Hypertension Fairly controlled Patient is on Cardizem Hyperlipidemia Patient lives in [place]. Discussed with care coordination on the case [...] EDT Transport at bedside. Patient transferred to [facility] Status Stable. * Perioperative Nursing Note - Odilia Desai RN - 04/03/2024 10:00 AM EDT Patient received to Pacu Talala #3 from OR. Anesthesia at bedside. Report received. Initial assessmentcomplete. VSS on Fruit [employer] Nut Farm Worker. Patient resting appears comfortable. No signs or symptoms of painnoted. * Op Note - Tin West MD - 04/03/2024 8:24 AM EDT Arthroplasty Resurfacing Total Knee [id number] - LA ARTHRP KNE CONDYLE&PLATU MEDIAL&LAT COMPARTMENTS Operative Note Date: 04/03/2024 OR Location: [facility] OR Name: Leeann Alonso, : 1960, Age: 64 y.o., , Sex: female PRE Diagnosis Left knee osteoarthritis POST Diagnosis Same Procedures Left total knee arthroplasty subvastus approach Surgeons * Tin West - Primary Resident/Fellow/Other Highway Administrative Engineer: nitza Snowden joe Procedure Summary Implants: Styker Cemented Triathlon Total Knee: Femur size 3 posterior stabilized, size 3 primary tibial baseplate, size A32 N2Vac Patella, size 3x11 posterior stabilized N2Vac tibial bearing insert Anesthesia: LMA with adductor canal block ASA: III Anesthesia Staff: Anesthesiologist: Israel Corea MD FLORIST HELPER: Nikki Alex APRN-FLORIST HELPER Estimated Blood Loss: 50 mL Specimen: No specimens collected Staff: Reed Dipper: Katy Rodgers RN Scrub Person: Tesfaye Wright; Cy Sorto; Nikki Gr Drains and/or Catheters: 2 Hemovac Tourniquet Times: Total Tourniquet Time Documented: Thigh (Left) - 49 minutes Total: Thigh (Left) - 49 minutes Findings: Patient had severe degenerative changes with medial joint space niet-ec-bhyb apposition and peripheral osteophyte formation. Absent ACL. [...] tracking and varus valgus stability throughout. The kasaan patella tracked normally. I everted the patella [...] WELL. PHOTO TO CHART documented in this [facility] Work Phone: 1(133) 779-470006-10-2024 Nurse Note* Alyssa Graham RN - 04/03/2024 7:30 PM EDT Assumed care of pt this evening, sitting up in bed, at bedside, denies pain, dressing to left knee c/d/I, hemovac with small amt bloody drainage noted, iv fluids per order [facility]06-10-2024 Note* Treatment Plan - Chante Ma MD - 04/03/2024 3:33 PM EDT Patient was seen and examined by me personally. He is see detailed initial consult and physical exam in [facility] by Larisa Stevenson. I talked in detail with [employer] regarding assessment and plan. I agree with [...] dermatology disease. Atrial fibrillation Patient see regular manufacturing accountant. Continue with flecainide, Cardizem ,Eliquis. Left knee osteoarthritis Status post left total knee arthroplasty Continue with pain medication Physical therapy to evaluate her Hypertension Fairly controlled Patient is on Cardizem Hyperlipidemia Patient lives in [place]. Discussed with care coordination on the case plan to discharge with home health care. Discussed with her family present in the room. [facility] Work Phone: 1(142) 409-980706-10-2024 Plan of care note* Care Plan - Joanne Shetty RN - 04/03/2024 2:04 PM EDT The patient's goals for the shift include No pain The clinical goals for the shift include No pain Over the shift, the patient did not make progress toward the following goals. [facility] Work Phone: 1(728) 376-122106-10-2024 Consult note* SANDOVAL Marcos - 04/03/2024 1:51 [...] and aortic valve insufficiency who presented to [facility] for an anticipated left total knee [...] or vomiting. No abdominal discomfort. Admitted to [facility]. Medicine consulted for management of chronic [...] General: Well developed. NAD. HEENT: PERRL. EOMI. [place] conjunctiva. Trachea midline. Cardiovascular: S1, S2. RRR. [...] INDICATION: Signs/Symptoms:Post-op knee. COMPARISON: None. ACCESSION NUMBER(S): [id number] ORDERING CLINICIAN: TIN WEST FINDINGS: Components of left knee arthroplasty are in anatomic alignment. Postoperative soft tissue gas. New left knee arthroplasty in anatomic alignment. MACRO: None Signed by: Herman Marquez 04/03/2024 11:33 AM Dictation workstation: [id number] Assessment/Plan Atrial fibrillation Eliquis resumed per orthopedic [...] consult. Will continue to follow. SANDOVAL Marcos [facility] Work Phone: 1(358) 501-582406-10-2024 Consult note* SANDOVAL Marcos - 04/03/2024 1:51 PM EDTAssociated Order(s): Inpatient consult to Medicine Inpatient consult to Medicine Consult performed by: Keshawn Stevenson, [place] Consult ordered by: Tin West MD Reason for consult: HTN, HLD, A fib Reason For Consult HTN, HLD, A fib History Of Present Illness Celeste Crockett is a 64 y.o. female with a past medical history of atrial fibrillation on apixaban, HLT, HTN, and aortic valve insufficiency who presented to [facility] for an anticipated left total knee [...] or vomiting. No abdominal discomfort. Admitted to [facility]. Medicine consulted for management of chronic medical conditions, HTN, A fib, HLD. Past Medical History She has a past medical history of Anxiety, Aortic valve insufficiency, Arthritis, Asthma ([facility]),Atrial fibrillation (Multi), Easy bruising, Heart disease (2018), [...] Name Age of Onset Arthritis Mother Brianda duboison Cancer Mother Briandamendy pulido Diabetes Mother Brianda duboison Hypertension Mother Brianda pulido Miscarriages / Stillbirths Mother Brianda pulido Hearing loss Father Silvestre pulido Heart disease Father Silvestre pulido Hypertension Father Silvestre pulido Kidney disease Father iSlvestre pulido Stroke Father Silvestre pulido Arthritis Father Silvestre pulido Heart disease Brother Mian pulido Allergies Bee venom protein (honey bee), Codeine, Hydromorphone, Morphine, Oxycodone, Propoxyphene, Wasp venom, Atorvastatin calcium, Grass pollen, House dust, Mold, Rosuvastatin calcium, Simvastatin, and Niacin Review of Systems As per HPI. At least 10 systems reviewed and are otherwise negative Physical Exam General: Well developed. NAD. HEENT: PERRL. EOMI. [place]ham conjunctiva. Trachea midline. Cardiovascular: S1, S2. RRR. [...] INDICATION: Signs/Symptoms:Post-op knee. COMPARISON: None. ACCESSION NUMBER(S): [id number] ORDERING CLINICIAN: TIN WEST FINDINGS: Components of left knee arthroplasty are in anatomic alignment. Postoperative soft tissue gas. New left knee arthroplasty in anatomic alignment. MACRO: None Signed by: Herman Marquez 04/03/2024 11:33 AM Dictation workstation: [id number] Assessment/Plan Atrial fibrillation Eliquis resumed per orthopedic [...] to follow. SANDOVAL Marcos documented in this [facility] Work Phone: [phone]) 985-965906-10-2024 Note* Perioperative Nursing Note - Odilia Desai RN - 04/03/2024 11:50 AM EDT Transport at bedside. Patient transferred to Division Status Stable. [facility]06-10-2024 Note* Perioperative Nursing Note - Odilia Desai RN - 04/03/2024 10:00 AM EDT Patient received to Pacu Talala #3 from OR. Anesthesia at bedside. Report received. Initial assessmentcomplete. VSS on [employer] Worker. Patient resting appears comfortable. No signs or symptoms of painnoted. [facility] Work Phone: 1([phone]) 399-923306-10-2024 Hospital Discharge instructions* Discharge Instructions* Tin West MD - 04/03/2024 9:41 AM EDT Dressing: remove after 1 week. Call if any drainage is coming out of the bandage. Weight bearing: weight bear as tolerated Showering: may shower Bathing: no tub bathing or pools Driving: no driving Call with any concerns. documented in this [facility] Work Phone: [phone]) 505-991406-10-2024 Note* Op Note - Tin West MD - 04/03/2024 8:24 AM EDT Arthroplasty Resurfacing Total Knee 61532 - LA ARTHRP KNE CONDYLE&PLATU MEDIAL&LAT COMPARTMENTS Operative Note Date: 04/03/2024 OR Location: [facility] Name: Leeann Alonso, : 1960, Age: 64 y.o., , Sex: female PRE Diagnosis Left knee osteoarthritis POST Diagnosis Same Procedures Left total knee arthroplasty subvastus approach Surgeons * Tin West - Primary Resident/Fellow/Other Highway Administrative Engineer: nitza Snowden joe Procedure Summary Implants: Styker Cemented Triathlon Total Knee: Femur size 3 posterior stabilized, size 3 primary tibial baseplate, size A32 N2Vac Patella, size 3x11 posterior stabilized N2Vac tibial bearing insert Anesthesia: LMA with adductor canal block ASA: III Anesthesia Staff: Anesthesiologist: Israel Corea MD FLORIST HELPER: Nikki Alex APRN-FLORIST HELPER Estimated Blood Loss: 50 mL Specimen: No specimens collected Staff: Reed Dipper: Katy Rodgers RN Scrub Person: Tesfaye Wright; Cy Sorto; Nikki Gr Drains and/or Catheters: 2 Hemovac Tourniquet Times: Total Tourniquet Time Documented: Thigh (Left) - 49 minutes Total: Thigh (Left) - 49 minutes Findings: Patient had severe degenerative changes with medial joint space hegm-sn-mcfr apposition and peripheral osteophyte formation. Absent ACL. [...] tracking and varus valgus stability throughout. The kasaan patella tracked normally. I everted the patella [...] Attestation: I performed the procedure. Tin West [facility] Work Phone: [phone]) [phone] Note* Pre-Procedure Note - Cynthia Lopez RN - 04/03/2024 7:57 AM EDT PREOP NERVE BLOCK COMPLETED, PATIENT TOLERATED WELL. PHOTO TO CHART [facility]06-10-2024 Attending History and physical note * Tin West MD - 04/03/2024 7:34 AM EDT H&P reviewed. The patient was examined and there are no changes to the H&P. Source Note - Nikki Zaragoza APRN-[employer]GEMENT - 03/21/2024 1:45 PM EDT CPM/PAT Evaluation [...] 03/21/2024 under heading Epic notes. SANDOVAL Mcmullen [facility] Work Phone: [phone]) 995-454506-10-2024 History and physical note* Tin West MD - 04/03/2024 7:34 AM EDT H&P reviewed. The patient was examined and there are no changes to the H&P. Source Note - KelleOdessa Zaragoza, [place] - 03/21/2024 1:45 PM EDT CPM/PAT Evaluation Name: Leeann Crockett (Leeann Alonso) /Age: 5 1960 y.o. In-Person Chief Complaint: Left knee osteoarthritis [...] Surgical History: Procedure Laterality Date CARDIAC CATHETERIZATION 2017 Normal coronary arteries HYSTERECTOMY OTHER SURGICAL HISTORY [...] Last ECHO completed on 01/17/2024 scanned into [employer] on 03/21/2024 under headingEpic notes. Panic disorder CBC and BMP completed in PAT. EKG completed on 02/25/2024. Dr Gann's cardiac clearance was scanned into Epic media scanned on 03/21/2024 under heading Epic notes. SANDOVAL Mcmullen documented in this [facility] Work Phone: [phone]) 940-460107-12-2023 Discharge summary Author Susan Zambrano [facility] May 05, 2023 5:28pm Note Date/Time May 05, 2023 5:28 pm [facility] Physical Therapy [facility] [address] [place] [address]. [address] [place] [address] / REHABILITATION SERVICES DISCHARGE SUMMARY MR#: [id number] Acct: [id number] Name: LEEANN CROCKETT Rep #: [id number] : 1960 63 From: Susan Zambrano Scot Referring Dr.: Dr. Nate Rubio MD Status: REG RCR Insurance: [employer] Discharge Summary D/C summary: [...] please feel free to call me at [phone]. Thank you for the referral of thispatient. Sincerely, JOYCE Siddiqui Balance/Gait/Functional tests Balance/Special Test Scores Lower Extremity Functional Score: 55 <Electronically signed by Susan Zambrano MPT> 05/05/23 3701 CC: Dr. Yennifer Johnson MD; Dr. Nate Rubio MD ~ Signed [facility] Work Phone: 1([phone]) 154-201805-03-[address] Rubio [facility] February 24, 2023 8:18am Note Date/Time February 24, 2023 8:18am [facility] Medical Records Department [address] [place] [address] Instructions for Home/Discharge Instructions 02/24/23 0817 MR#: [id number] Acct: [id number] Name: LEEANN CROCKETT Rep #:[id number] : 1960 62 From: Nate Rubio MD PCP: Dr. Yennifer Johnson MD Status:R EG [facility] Discharge Instructions Diet Discharge Diet: No restrictions [...] CC: Dr. Yennifer Johnson MD ~ Signed [facility] Work Phone: 1([phone]) 123-606805-03-2023 History and physical note Author Dr. Rubio [facility] February 24, 2023 7:11am Note Date/Time February 24, 2023 7:11am [facility] Medical Records Department [address] [place] [address] History & Physical Exam 02/24/23 0709 MR#: [id number] Acct: [id number] Name: LEEANN CROCKETT Rep #:[id number] : 1960 62 From: Nate Rubio MD PCP: Dr. Yennifer Johnson MD Status:R [facility] Location: [place] [address] HPI - General HPI Narrative LEEANN CROCKETT, is a 62 F who presents for left knee arthroscopy, MM and debridement. No changes to h and p. OK to proceed, left knee marked. RAB and post op WBAT with crutches discussed. Patient allergic to many narcotics, so getting spinal and block, will use tylenol and NSAIDs post op. No further questions. MR#: [id number] Acct: [id number] Name:? LEEANN CROCKETT Rep #: [id number] : 1960 ? ? Provider: Dr. Nate Rubio MD Age/Sex:? 62/F ? ? Location: [facility] Status: Signed Intake Vital Signs ? 07/27/2213:39 [...] mg PO Q6H PRN PRN Pain Score 1-10/10 #60 tabs 07/28/19 [Rx Confirmed 02/04/23] disability [...] Grind: Yes KNEE: normal gait Supplemental Info [facility] Imaging Services [address] [place] [address] Lower Ext Joint Only (Routine) MR#:? [id number] Acct: [id number] Name:? LEEANN CROCKETT Rep #: [id number] :?? 1960 F 62 ? From:? ? Maximilian Garnett MD PCP: Dr. Yennifer Johnson MD ? Status: REG CLI Study: Lower Ext Joint Only (Routine) ? Date of Exam: 02/02/23 Exam# [id number] ? Ordering Dr:? Nate Rubio MD STUDY:? [...] 23:49 EDT Reading Location ID and State: [facility] / [place] , Service support? , ? Agree with [...] proceed.? We will have to get her manufacturing accountant Dr. Lopez clearance / opinion on when [...] surgery, and signed the informed consent documentation.? [facility] Medical History (Updated 02/17/23 @ 13:56 by [...] Johnson MD; Dr. Nate Rubio MD~ Signed [facility] Work Phone: 1([phone]) 566-857705-03-2023 Procedure [facility] Evaluation noteNo assessment information availableTrumbull Regional Medical Center Work Phone: evaluation note* Diagnosis Onset Date Resolution Status Anxiety and depression acute Change in bowel habits acute Fecal incontinence acute GERD (gastroesophageal reflux disease) acute [facility] Work Phone: Evaluation note* Diagnosis Onset Date Resolution Status Anxiety and depression acute Change in bowel habits acute Fecal incontinence acute GERD (gastroesophageal reflux disease) acute Chest pressure acute Fatigue acute Paroxysmal atrial fibrillation acute Essential (primary) hypertension chronic Mixed hyperlipidemia chronic Nonrheumatic aortic valve insufficiency chronic Palpitations chronic [facility] Work Phone: Evaluation note* Diagnosis Onset Date [...] left knee pain non eactive Fall noneactive [facility] Work Phone: Evaluation note* Diagnosis Onset Date [...] of popliteal space [Poe], left knee acute [facility] Work Phone: Evaluation note* Diagnosis Onset Date Resolution Status Palpable mass of soft tissue of knee noneactive Posterior left knee pain non eactive Fall noneactive Osteoarthritis of left knee acute Synovial cyst of popliteal space [Poe], left knee acute [facility] Work Phone: Evaluation note* Diagnosis Onset Date Resolution Status Osteoarthritis of left knee acute Osteoarthritis of left knee acute Synovial cyst of popliteal space [Poe], left knee acute Tear of medial meniscus of left knee acute [facility] Work Phone: Evaluation note* Diagnosis Onset Date Resolution Status Osteoarthritis of left knee acute Osteoarthritis of left knee acute Synovial cyst of popliteal space [Poe], left knee acute Tear of medial meniscus of left knee acute Osteoarthritis of left knee acute Tear of medial meniscus of left knee acute [facility] Work Phone: Evaluation note* Diagnosis Onset Date [...] of medial meniscus of left knee acute [facility] Work Phone: Evaluation note* Diagnosis Onset [...] of medial meniscus of left knee acute [facility] Work Phone: Evaluation note* Diagnosis Onset Date Resolution Status Tear of medial meniscus of left knee acute [facility] Work Phone: Evaluation note* Diagnosis Onset Date Resolution Status Paroxysmal atrial fibrillation acute Essential (primary) hypertension chronic Mixed hyperlipidemia chronic Nonrheumatic aortic valve insufficiency chronic Preventative health care acu te [facility] Work Phone: Evaluation note* Diagnosis Onset Date Resolution Status Preventative health care acu te Fatigue acute Paroxysmal atrial fibrillation acute Dizziness chronic Essential (primary) hypertension chronic Mixed hyperlipidemia chronic Nonrheumatic aortic valve insufficiency chronic Palpitations chronic [facility] Work Phone: Evaluation note* Diagnosis Arthritis of left knee- Primary Arthritis of left knee Urinary tract infection without hematuria, site unspecified HTN (hypertension) Unspecified essential hypertension Hyperlipidemia Other and unspecified hyperlipidemia Valvular heart disease Endocarditis, valve unspecified, unspecified cause Atrial fibrillation (Multi) Atrial fibrillation Asthma ([facility]) Unspecified asthma Anxiety Anxiety state, unspecified documented in this encounter [facility] Work Phone: [facility] Work Phone: [facility] Work Phone: Progress note Author Cy Peterson [facility] Note Date/Time May 02, 2025 9:37a m [facility] [address] [place] [address] OFFICE VISIT Date of Service: 05/02/25 0900 MR#: [id number] Acct: [id number] Name: LEEANN CROCKETT Rep #: [id number] : 1960 From: Cy Peterson MD Age/Sex: 65/F [place] [facility] Status: Signed HPI Subjective Date of Service 05/02/25 Chief Complaint Referred for thrombocytosis. History of Present Illness 65y.o.woman was found to slight elevation of PLT and referred for evaluation. She denies bleeding disorders, anemia. [facility] Medical History Thrombocytosis High cholesterol Tear of medial meniscus of [...] DOES USE ASPIRIN DOES USE IBUPROFEN ROS Constitutional Constitutional: Reports systems reviewed and no addt'l complaints, except as documented Eyes Eyes: Reports systems reviewed and no addt'l complaints, except as documented ENT HEENT: Reports systems reviewed and no addt'l complaints, except as documented Cardiovascular Cardiovascular: Reports systems reviewed and no addt'l complaints, except as documented Respiratory/Chest Respiratory/Chest: Reports systems reviewed and no addt'l complaints, except as documented Gastrointestinal Gastrointestinal: Reports systems reviewed and no addt'l complaints, except as documented Genitourinary Genitourinary: Reports systems reviewed and no addt'l complaints, except as documented Musculoskeletal Musculoskeletal: Reports systems reviewed and no addt'l complaints, except as documented Integumentary Integumentary: Reports systems reviewed and no addt'l complaints, except as documented Neurologic Neurologic: Reports systems reviewed and no addt'l complaints, except as documented Psychiatric Psychiatric: Reports systems reviewed and no addt'l complaints, except as documented Endocrine Endocrinology: Reports systems reviewed and no addt'l complaints, except as documented Hematologic/Lymphatic Hematologic/Lymphatic: Reports systems reviewed and no addt'l complaints, except as documented Allergic/Immunologic Allergic/Immunologic: Reports systems reviewed and no addt'l complaints, except as documented Intake Vital Signs 04/26/25 13:01 05/02/25 09:01 Height 5 ft 2 in 5 ft 2 in Weight: 71.923 kg BMI 29.0 BP 124/68 H Blood Pressure Location Lt brachial Position Sitting Respiration 15 Pulse 67 Pulse Source Monitor Pulse Oximetry (%) 97 Oxygen Delivery Method room air Intake Accompanied by: Self Is patient in pain?: No Allergies dog dander Allergy (Severe, Verified 05/02/25 09:07) Swelling Opioids - Morphine Analogues Allergy (Severe, Verified 05/02/25 09:07) Anaphylaxis perfume Allergy (Severe, Verified 05/02/25 09:07) swelling venom-honey bee Allergy (Severe, Verified 05/02/25 09:07) Anaphylaxis ketorolac (From Toradol) Allergy (Intermediate, Verified 05/02/25 09:07) Nausea bee pollen Allergy (Verified 05/02/25 09:07) Anaphylaxis codeine Allergy (Verified 05/02/25 09:07) Anaphylaxis niacin Allergy (Verified 05/02/25 09:07) Angioedema oxycodone HCl (From Percocet) Allergy (Verified 05/02/25 09:07) Anaphylaxis propoxyphene napsylate (From Darvocet-N) Allergy (Verified 05/02/25 09:07) Angioedema simvastatin (From Zocor) Allergy (Verified 05/02/25 09:07) Angioedema adhesive Adverse Reaction (Severe, Verified 05/02/25 09:07) Other hydromorphone (From Dilaudid) Adverse Reaction (Mild, Verified 05/02/25 09:07) Other Medications ?Medication ?Instructions ?Recorded ?Confirmed ?Type disability placmya #1 ea 11/13/20 04/26/25 Rx multivitamin (Daily Multi-Vitamin 1 tab PO DAILY 12/1605/02/25 History tablet) apixaban 5 mg tablet (Eliquis) 5 mg PO BID #180 tabs 0 11/06/24 05/02/25 Rx diltiazem HCl 240 mg 240 mg PO DAILY #90 caps 05/02/25 Rx capsule,extended release 24 hr ezetimibe 10 mg tablet 10 mg PO DAILY #90 tabs 10/2505/02/25 Rx flecainide 100 mg tablet 100 mg PO Q12H #180 tabs 03/1805/02/25 Rx gemfibrozil 600 mg tablet See Rx Instructions .Route 0 04/26/25 05/02/25 Rx .COMPLEX #180 tabs losartan 50 mg-hydrochlorothiazide 1 tab PO QDAY #90 T ABLETS 04/26/25 05/02/25 Rx 12.5 mg tablet Have you fallen in the past year?: No Central Venous Access Central Venous Access: No Laboratory Tests 09/27/23 12/16/23 07/10/24 13:28 13:51 15:05 WBC Hgb Hct MCV Plt Count 452 H 453 H 449 Absolute Neuts (auto) Absolute Lymphs (auto) Sodium Potassium Chloride Carbon Dioxide BUN Creatinine Glucose Calcium Magnesium Iron TIBC Iron Saturation Unsaturated IBC Ferritin 04/26/25 04/26/25 13:28 21:08 WBC 10.9 Hgb 12.6 Hct 38.2 MCV 90.7 Plt Count 521 H Absolute Neuts (auto) 7.6 Absolute Lymphs (auto) 1.90 Sodium 139 Potassium 3.7 Chloride 102 Carbon Dioxide 26.5 BUN 18 Creatinine 0.87 Glucose 97 Calcium 9.8 Magnesium 2.5 H Iron 65 TIBC 421 Iron Saturation 15.0 Unsaturated IBC 356 Ferritin 69 Exam Physical Exam Const alert, oriented x3 and no apparent distress HEENT normocephalic, external ears normal and external nose normal Eyes PERRL, EOMs intact bilaterally, conjunctivae normal and no scleral icterus Neck supple Lymph Lymphatic: no lymphadenopathy noted Resp normal respiratory effort and clear to auscultation bilaterally Cardio regular rate, regular rhythm, S1 normal heart sound and S2 normal heart sound GI soft to palpation and non-tender Back/Spine no CVA tenderness Extremity no clubbing, cyanosis or edema Skin no rashes or lesions noted Neuro oriented x3, CN's II-XII intact bilaterally, moves all extremities and no focal motor deficits Psych mental status grossly normal Coding Level of Care Code Off vis,new,level 3 Exam Problem Focused Diagnoses Thrombocytosis D75.839 Assessment and Plan Assessment and Plan (1) Thrombocytosis: Status: Chronic Comment: Mild, asymptomatic. Discussed thrombocytosis, evaluation and management, indications for therapy. Since her platelets are mildly elevated, observation can be done. She agreed. Plan: To do observation. Monitor counts. RTC 3 months. Plan Details Follow Up: 3 Months Clinical Quality Measures Falls Risk Screening/Assistive Devices Have you fallen in the past year?: No 05/02/25 0937 <Electronically signed by Cy Silva> Date _ Cy Peterson MD [facility] Signature: Date (if applicable) CC: Dr. Yennifer Johnson MD ~ [place] [facility] Work Phone: Reason for referral (narrative)No reason for referral information availableWRegency Hospital Company Work Phone: Summary Purpose Family History No [...] No May 04, 2022 4:57pm Power of Hop Farmer No May 04 4:57pm Advance Directive Response Recorded Date/ Time Advance Directives No May 26 6:34am Living Will No May 04, 2022 3:57pm Power of Hop Farmer No May 04 3:57pm Advance Directive Response Recorded Date/ Time Name of Medical Power of Hop Farmer - STEPHANIE RIVERA February 17, 2023 1:47pm Advance Directives No May 26 7:34am Living Will Yes February 17, 2023 1:47pm Power of Hop Farmer Yes February 17 1:47pm Advance Directive Response Recorded Date/ Time Advance Directives No May 26 7:34am Living Will Yes February 17, 2023 1:47pm Power of Hop Farmer Yes February 17 1:47pm Advance Directive Response Recorded Date/ Time Advance Directives No May 26 6:34am Living Will Yes October 06, 10:45am Power of Hop Farmer Yes October 06, 2023 10:45am Advance Directive Response Recorded Date/ Time Advance Directives No May 26 7:34am Living Will Yes October 06, 11:45am Power of Hop Farmer Yes October 06, 2023 11:45am Date Activated [...] 6pm Palpitations April 26, 2025 12:56 pm Chief Complaint Admit Date INT LAB ORDERS March 24, 2025 7:38a m 1 Y FU April 26, 2025 12:56 pm E-ORDER April 26, 2025 1:25p m THROMBOCYTOSIS May 02, 2025 8:49a m Reason for Visit Admit Date Dyspnea on exertion April 26, 2025 12:56 pm Paroxysmal atrial fibrillation April 26, 2025 12:56pm Mixed hyperlipidemia April 26, 2025 12:5 6pm Palpitations April 26, 2025 12:56 pm Thrombocytosis May 02, 2025 8:49a m Reason for Referral Specialty Diagnoses / Procedures Referred By Arnie t Referred To Contact Home Health Services Diagnoses Arthritis of left knee Keshawn Stevenson, [employer]ANCE [employer]ET[employer] [address] [place] [address] Referral ID Status Reason Start Date Expiration Date Visits Requested Visits Authorized [id number] Pending Review Specialty Services Required 04/04/2024 04/04/2025 [id number] Additional Source Comments INFORMATION SOURCE (unrecogn ized section and content) DATE CREATED AUTHOR 05/23/2020 [facility] DATE CREATED AUTHOR AUTHOR'S ORGANIZ ATION 03/26/2024 [facility] DATE CREATED AUTHOR AUTHOR'S ORGANIZ ATION 04/07/2024 [facility] DATE CREATED AUTHOR AUTHOR'S ORGANIZ ATION 05/09/2025 [facility] Goals (unrecognized section and content) Goals [...] Status: Inactive Member Role Status Dates Dr. Ynenifer Johnson MD Primary Care Provider Active Dr. [...] Attending Provider, Referring Provider Active Karlie Johnson AIR POLLUTION ANALYST, AIR POLLUTION ANALYST-C Other Provider Active Team Status: Inactive Member Role Status Dates Dr. Yennifer Johnson MD Primary Care Provider Active Nate Rubio MD Attending Provider Active Team Status: Inactive Member Role Status Dates Dr. Yennifer Johnson MD Primary Care Provider Active Karlie Johnson AIR POLLUTION ANALYST, AIR POLLUTION ANALYST-C Attending Provider, Referring P rovider Active Team Status: Inactive Member Role Status Dates Dr. Yennifer Johnson MD Primary Care Provider, Refer ring Provider Active Karlie Johnson AIR POLLUTION ANALYST, AIR POLLUTION ANALYST-C Attending Provider Active Team Status: Inactive Member [...] MD Primary Care Provider Active Karlie Johnson AIR POLLUTION ANALYST, AIR POLLUTION ANALYST-C Attending Provider, Referring P rovider Active Team Status: Active Member Role Status Dates Dr. Yennifer Johnson MD Primary Care Provider Active Dr. Salazar Sim MD Attending Provider Active Karlie Johnson AIR POLLUTION ANALYST, AIR POLLUTION ANALYST-C Referring Provider Active Team Status: Active Member Role Status Dates Dr. Yennifer Johnson MD Primary Care Provider Active Karlie Johnson AIR POLLUTION ANALYST, AIR POLLUTION ANALYST-C Attending Provider Active Team Status: Active Member Role Status Dates Dr. Yennifer Johnson MD Primary Care Provider Active Dr. Imtiaz Mccracken MD Attending Provider Active Team Status: Inactive Member Role Status Dates Dr. Yennifer Johnson MD Primary Care Provider Active Start: March 24, 2025 End: March 24, 2025 Larry Rodriguez AIR POLLUTION ANALYST, AIR POLLUTION ANALYST-C Attending Provider Active S tart: March 24, 2025 End: March 24, 2025 Larry Rodriguez AIR POLLUTION ANALYST, AIR POLLUTION ANALYST-C Referring Provider Active S tart: March 24, 2025 End: March 24, 2025 Team Status: Active Member Role/Relationship Status Dates Dr. Yennifer Johnson MD Family Provider Active Dr. Yennifer Johnson MD Primary Care Provider Active Team Status: Inactive Member Role/Relationship Status Dates Dr. Yennifer Johnson MD Primary Care Provider Active Start: March 24, 2025 End: March 24, 2025 Larry Rodriguez AIR POLLUTION ANALYST, AIR POLLUTION ANALYST-C Attending Provider Active S tart: March 24, 2025 End: March 24, 2025 Larry Rodriguez AIR POLLUTION ANALYST, AIR POLLUTION ANALYST-C Referring Provider Active S tart: March 24, 2025 End: March 24, 2025 Team Status: Inactive Member Role/Relationship Status Dates Dr. Yennifer Johnson MD Primary Care Provider Active Start: April 26, 2025 End: April 26, 2025 Dr. Yennifer Johnson MD Referring Provider Active Start: April 26, 2025 End: April 26, 2025 Karlie Johnson AIR POLLUTION ANALYST, AIR POLLUTION ANALYST-C Attending Provider Active Start: April 26, 2025 End: April 26, 2025 Team Status: Active Member Role/Relationship Status Dates Dr. Yennifer Johnson MD Primary Care Provider Active Start: April 26, 2025 Karlie Johnson AIR POLLUTION ANALYST, AIR POLLUTION ANALYST-C Attending Provider Active Start: April 26, 2025 Karlie Johnson AIR POLLUTION ANALYST, AIR POLLUTION ANALYST-C Referring Provider Active Start: April 26, 2025 Team Status: Active Member Role/Relationship Status Dates Dr. Yennifer Johnson MD Primary Care Provider Active Team Status: Inactive Member Role/Relationship Status Dates Dr. Yennifer Johnson MD Primary Care Provider Active Start: May 02, 2025 End: May 02, 2025 Dr. Yennifer Johnson MD Referring Provider Active Start: May 02, 2025 End: May 02, 2025 Dr. Cy Peterson MD Attending Provider Active S tart: May 02, 2025 End: May 02, 2025 Team Status: Inactive Member Role/Relationship Status Dates Dr. Yennifer Johnson MD Primary Care Provider Active Start: April 26, 2025 End: April 26, 2025 Karlie Johnson AIR POLLUTION ANALYST, AIR POLLUTION ANALYST-C Attending Provider Active Start: April 26, 2025 End: April 26, 2025 Karlie Johnson NP, AIR POLLUTION ANALYST-C Referring Provider Active Start: April 26, 2025 End: April 26, 2025 Reason for Visit (unrecogniz ed section and content) Specialty Diagnoses / Procedures Referred By Arnie alvarez Referred To Contact Diagnoses Primary osteoarthritis of left knee LEFT KNEE OSTEOARTHRITIS Procedures LA ARTHRP KNE CONDYLE&PLATU MEDIAL&LAT COMPARTMENTS Arthroplasty Resurfacing Total Knee Tin West MD [address] [facility] [address] [place] [address] [place] [address] [place] [address] Referral ID Status Reason Start Date Expiration Date Visits Re quested Visits Authorized [id number] 1 1 Scheduled Active and Recently Administ [...] scheduled q [phone] (Given - Provider: Pao Foley, ANNI) 0023 (Given - Provider: Alyssa Graham, ANNI)0649 (Given - Provider: Alyssa Graham, ANNI)1352 (Given - Provider: Pao Foley RN)1900 (Due) [...] Prophylaxis 0809 (Given - Provider: Nikki Alex APRN-FLORIST HELPER) ceFAZolin in dextrose (iso-os) (Ancef) IVPB 2 [...] RN) 0023 (New Bag - Provider: Alyssa Graham, ANNI)0053 (Stopped - Provider: Alyssa Graham, ANNI) cefuroxime (Ceftin) tablet 500 mg 500 mg, [...] Unit 1311 (Given - Provider: Joanne Shetty RN)2153 (Given - Provider: Alyssa Graham RN) 0850 [...] nerve block 0750 (Given - Provider: Cynthia Lopez RN - Comment: PREOP NERVE BLOCK) flecainide (Tambocor) tablet 100 mg 100 mg, oral, Every 12 hours, First dose on Wed04/03/24 at 2100, Phase II/On Unit 2153 (Given - Provider: Alyssa Graham RN) 0850 (Given - Provider: Pao Foley RN)2100 (Due) gemfibrozil (Lopid) tablet 600 mg 600 mg, oral, 2 times daily, First dose on Wed04/03/24 at 1230, Phase II/On Unit 1230 (Not Given - Provider: Joanne Shetty RN - Reason: Patient/family refused - Comment: pt took in the am)2153 (Given - Provider: Alyssa Graham RN) 0850 (Given - Provider: Pao Foley, RN)2100 (Due) midazolam (Versed) injection 2 mg (COMPLETED) 2 mg, intravenous, Once, On Wed04/03/24 at 0745, For 1 dose, Preprocedure, For Nerve block 0751 (Given - Provider: Cynthia Lopez RN - Comment: PREOP NERVE BLOCK) multivitamin [...] (Continued by Anesthesia - Provider: Nikki Alex APRN-GANGA)0915 (New Bag - Provider: ANNALEE Walsh)1212 (Stopped - Provider: Pao Foley RN) lactated [...] 92% 1230 (Start - Provider: Héctor Simental, INSIGHTS STRATEGIST) PRN Medication Order 04/02/2024 04/03/2024 04/04/2024 [id number] [...] BE BASED ON THE PRIMARY CLINICAL RECORDS. [facility] [employer] [facility]. provides no warranty or guarantee of the accuracy or completeness of information in this document.
== END | disposition home or self-care (01) ==
LOC: PSN 06:50
PROVIDERS: PCP Internal Medicine; Referring Provider Nurse Practitioner Gerontology; Visit Provider Nurse Practitioner Gerontology
DX: R00.2 Palpitations (principal)
CPT/HCPCS: 93225; 93226

== ENCOUNTER → 2025-05-12 | Outpatient (CLI) | payer BC, SELFPAY ==
--- OUTSIDE RECORDS SUMMARY | 2025-05-12 08:00 | XMS RPT_ITS | CCD ---
Author Organization [facility] Providers Care [employer] Supervisor Name Role Phone Dr. Yennifer Johnson Primary Care Provider [phone] Dr. Yennifer Johnson Attending Provider [phone] Dr. Yennifer Johnson Referring Provider [phone] Alex PROSTHETIC AIDES TEACHER, PROSTHETIC AIDES TEACHER-C Karlie Attending Provider Dr. Cyrus Lopez Attending [...] Dr. Yennifer Johnson Referring Provider [phone] Alex PROSTHETIC AIDES TEACHER, PROSTHETIC AIDES TEACHER-C Karlie Attending Provider Dr. Yennifer Johnson Attending Provider [phone] Pb NAVAS PA Sarabjit Nelson Attending Provider Dr. Yennifer Johnson Primary Care Provider [phone] Dr. Yennifer Johnson Referring Provider [phone] Alex MAYER, PROSTHETIC AIDES TEACHER-C Karlie Attending Provider Dr. Yennifer Johnson Primary Care Provider [phone] Dr. Yennifer Johnson Attending Provider [phone] Dr. Yennifer Johnson Referring Provider [phone] Pb NAVAS, PA Sarabjit Nelson Attending Provider Alex MAYER, PROSTHETIC AIDES TEACHER-C Karlie Attending Provider Dr. Salazar Sim Attending Provider [phone] Alex MAYER, PROSTHETIC AIDES TEACHER-C Karlie Referring Provider Dr. Imtiaz Mccracken Attending [...] Attending Unavailable Oleghe, Efewongbe Referring Unavailable Alex PROSTHETIC AIDES TEACHER, Karlie Attending Unavailable Alex PROSTHETIC AIDES TEACHER, Karlie Referring Unavailable Oleghe, Efewongbe Primary Care Unavailable Oleghe, Efewongbe Primary Care Unavailable Alex PROSTHETIC AIDES TEACHER, Karlie Attending Unavailable Oleghe, Efewongbe Referring Unavailable Oleghe, Efewongbe Primary Care Unavailable Cy Peterson Attending Unavailable Oleghe, Efewongbe Referring Unavailable Oleghe, Efewongbe Primary Care Unavailable Alex PROSTHETIC AIDES TEACHER, Karlie Referring Unavailable Alex PROSTHETIC AIDES TEACHER, Karlie Attending Unavailable Oleghe, Efewongbe Primary Care Unavailable Alex PROSTHETIC AIDES TEACHER, Karlie Referring Unavailable Alex PROSTHETIC AIDES TEACHER, Karlie Attending Unavailable Oleghe, Efewongbe Primary Care Unavailable Michael PROSTHETIC AIDES TEACHER, Larry Tejeda Attending Unavailable Michael PROSTHETIC AIDES TEACHERLarry H Referring Unavailable Oleghe, Efewongbe Primary Care Unavailable Oleghe, Efewongbe Attending Unavailable Oleghe, Efewongbe Referring Unavailable Oleghe, Efewongbe Primary Care Unavailable Tin West Attending Unavailable Tin West Referring Unavailable Allergies Allergy Classification Reported Allergen(s) Allergy Type Date of Onset Reaction(s) Facility (19 sources) Adhesive agent; Translations: [adhesive] Propensity to adverse reactions 2 Other [facility] Comment on above: FROM ELECTRODE ADHES AMANDA (18 sources) Bee pollen Drug Allergy 1 Anaphylaxis [facility] (20 sources) Codeine; Translations: [CODEINE] Drug Allergy 5 Anaphylaxis [facility] (20 sources) HYDROmorphone; Translations: [HYDROMORPHONE] Drug Allergy 9 Anaphylaxis [facility] Comment on above: DIZZINESS, DRY MOUTH (20 sources) Niacin; Translations: [NIACIN] Drug Allergy 7 Hives, Rash, Swelling [facility] (19 sources) oxyCODONE; Translations: [oxycodone HCl] Drug Allergy 1 Anaphylaxis [facility] (19 sources) Propoxyphene; Translations: [propoxyphene napsylate] Drug Allergy 1 Angioedema [facility] (20 sources) Simvastatin; Translations: [SIMVASTATIN] Drug Allergy 1 Other [facility] (18 sources) dog dander Allergy to substance 2 Swelling [facility] (19 sources) Opioids - Morphine Analogues; Translations: [Opioids - Morphine Analogues] Allergy to substance 1 Anaphylaxis [facility] (19 sources) perfume; Translations: [perfume] Allergy to substance 1 swelling [facility] (19 sources) venom-honey bee Allergy to substance 6 Anaphylaxis [facility] (3 sources) atorvastatin; Translations: [ATORVASTATIN CALCIUM] Drug Allergy 6 Other [facility] (3 sources) Grass pollen; Translations: [GRASS POLLEN] Propensity to adverse reactions to drug (disorder) 6 Cough [facility] (3 sources) house dust allergenic extract; Translations: [HOUSE DUST] Drug Allergy 6 Cough [facility] (3 sources) Mold Extract; Translations: [MOLD] Drug Allergy 6 Cough [facility] (3 sources) Morphine; Translations: [MORPHINE] Drug Allergy 9 Cough, Dizziness, Headache, Itching, Other, Palpitations, Shortness of breath [facility] (3 sources) oxyCODONE; Translations: [OXYCODONE] Drug Allergy 4 Cough, Dizziness, Headache, Itching, Other, Rash, Shortness of breath, Swelling [facility] (3 sources) Propoxyphene; Translations: [PROPOXYPHENE] Drug Allergy 4 Shortness of breath, Cough, Dizziness [facility] (3 sources) rosuvastatin; Translations: [ROSUVASTATIN CALCIUM] Drug Allergy 7 Other [facility] (3 sources) wasp venom; Translations: [WASP VENOM] Propensity to adverse reactions to drug (disorder) 6 Anaphylaxis [facility] (2 sources) BEE VENOM PROTEIN (HONEY BEE); Translations: [BEE VENOM PROTEIN (HONEY BEE)] Propensity to adverse reactions to drug (disorder) 6 [facility] Repository (1 source) ALLERGIES NOT ON FILE; Translations: [ALLERGIES NOT ON FILE] Propensity to adverse reactions (disorder) [facility] 3 Repository (4 sources) Ketorolac Drug Allergy 4 Nausea [facility] Comment on above: swelling in face (1 source) Bee pollen Drug allergy (disorder) 5 [facility] Repository (1 source) Codeine Drug Allergy 5 [facility] Repository (1 source) HYDROmorphone Drug Allergy 5 [facility] Repository (1 source) Ketorolac Drug Allergy 5 [facility] Repository (1 source) Niacin Drug Allergy 5 [facility] Repository (1 source) Simvastatin Drug Allergy 5 [facility] Repository (1 source) venom-honey bee Drug allergy (disorder) 5 [facility] Repository (1 source) dog dander Drug allergy (disorder) 5 [facility] Repository Medications Current Medications Medication Drug [...] O2 Sat Above: 92% polyethylene glycol 3350 44472 mg powder for oral solution (1 source) [...] 18, 2018 3:55pm May 12, 2018 2:10pm [id number] 0.3 ml EPINEPHrine 1 mg/ml auto-injector (20 [...] take 1 tablet by mouth once daily multivitamin,sk-kwzo-cqxfyfit tablet Discontinued 1 TABLET PO daily September 30, 2017 1:00am January 10, 2018 1:43pm [place]-3 Fatty Acids (14 sources) Start: 01-10-2018 End: 05-24-2018 take 1000 mg by mouth once daily [place]-3 Fatty Acids Discontinued 1000 MG PO daily January 09, 2018 11:00pm May 24, 2018 1:40pm Start: 01-10-2018 End: 05-24-2018 take 1000 mg by mouth once daily [place]-3 Fatty Acids Discontinued 1000 MG PO daily January 10, 2018 12:00am May 24, 2018 2:40pm [place]-3 Fatty Acids 1,000 mg capsule (4 sources) Start: 01-10-2018 End: 05-24-2018 take 1 capsule by mouth once daily [place]-3 Fatty Acids 1,000 mg capsule Discontinued 1000 [...] 2015 and 05/26/2018 vladimir Infante @ [facility]: normal coronaries Results Test Name Value Interpretation Reference Range Facility Oncology Visit Reporton Oncology Visit Report [facility] [place] [address] OFFICE VISIT Date of Service: 05/02/25 0900 MR#: [id number] Acct: [id number] Name: LEEANN CROCKETT Rep #: [id number] : 1960 From: Cy Peterson MD Age/Sex: 65/F Location: [facility] [place] Status: Signed HPI Subjective Date of Service 05/02/25 Chief Complaint Referred for thrombocytosis. History of Present Illness 65y.o.woman was found to slight elevation of PLT and referred for evaluation. She denies bleeding disorders, anemia. [facility] Medical History Thrombocytosis High cholesterol Tear of [...] room air (more content not included)... Normal [facility] Absolute lymphocyte countOrd ered By: Karlie Johnson on 04-26-2025 Lymphocytes Auto (Unsp spec) [#/Vol] 1.90 10*3/uL 0.83-4.51 [facility] Absolute neutrophil countOrd ered By: Karlie Johnson on 04-26-2025 Neutrophils (Bld) [#/Vol] 7.6 10*3/uL 2.0-7.7 [facility] Anion gap in Serum or Plasma Ordered By: Karlie Johnson on 04-26-2025 Anion gap [Moles/Vol] 11 mmol/L 5-15 [facility] Automated lymphocyte count a s percentage of total leukocytesOrdered By: Karlie Johnson on 04-26-2025 Lymphocytes/100 WBC Auto (Unsp spec) 17.5 % Low 19-41 [facility] BUN/creatinine ratioOrdered By: Karlie Johnson on 04-26-2025 Urea nitrogen/Creatinine [Mass ratio] 21.2 mg/mg High 10-20 [facility] Basic Metabolic Profile (BMP )on 04-26-2025 BUN/CRE 21.2 RATIO High 10-20 [facility] Comment on above: Performed By: #### L 100.0100, L500.2500, L501.5200, L501.9520, L503.7505 ####[facility] [address] [place], [address] Calcium [Mass/Vol] 9.8 mg/dL Normal 7.6-11.0 [facility] Comment on above: Performed By: #### L 100.0100, L500.2500, L501.5200, L501.9520, L503.7505 ####[facility] [address] [place], [address] Chloride [Moles/Vol] 102 mmol/L Normal 98-108 [facility] Comment on above: Performed By: #### L 100.0100, L500.2500, L501.5200, L501.9520, L503.7505 ####[facility] [address] [place], [address] CO2 [Moles/Vol] 26.5 mmol/L Normal 21.0-32.0 [facility] Comment on above: Performed By: #### L 100.0100, L500.2500, L501.5200, L501.9520, L503.7505 ####[facility] [address] [place], [address] Creatinine [Mass/Vol] 0.87 mg/dL Normal 0.70-1.20 [facility] Comment on above: Performed By: #### L 100.0100, L500.2500, L501.5200, L501.9520, L503.7505 ####[facility] [address] [place], [address] GAP 11 Normal 5-15 [facility] Comment on above: Performed By: #### L 100.0100, L500.2500, L501.5200, L501.9520, L503.7505 ####[facility] [address] [place], [address] GFR/1.73 sq M.predicted among non-blacks MDRD (S/P/Bld) [Vol rate/Area] 74 mL/min/{1.73_m2} Normal >60 [facility] Comment on above: Result Comment: mL/m in/1.73m2 CKD-EPI Creatinine Equation (2020) Performed By: #### L 100.0100, L500.2500, L501.5200, L501.9520, L503.7505 ####[facility] [address] [place], [address] Glucose [Mass/Vol] 97 mg/dL Normal 70-99 [facility] Comment on above: Performed By: #### L 100.0100, L500.2500, L501.5200, L501.9520, L503.7505 ####[facility] [address] [place], [address] Potassium [Moles/Vol] 3.7 mmol/L Normal 3.3-5.1 [facility] Comment on above: Performed By: #### L 100.0100, L500.2500, L501.5200, L501.9520, L503.7505 ####[facility] [address] [place], [address] Sodium [Moles/Vol] 139 mmol/L Normal 133-145 [facility] Comment on above: Performed By: #### L 100.0100, L500.2500, L501.5200, L501.9520, L503.7505 ####[facility] [address] [place], [address] Urea nitrogen [Mass/Vol] 18 mg/dL Normal 4-19 [facility] Comment on above: Performed By: #### L 100.0100, L500.2500, L501.5200, L501.9520, L503.7505 ####[facility] [address] [place], [address] Basophil percentageOrdered B y: Karlie Johnson on 04-26-2024 Basophils/100 WBC (Bld) 0.7 % 0-1 [facility] CBC W/Diff, Automatedon Absolute Lymph 1.90 X10 3/uL Normal 0.83-4.51 [facility] Comment on above: Performed By: #### L 100.0100, L500.2500, L501.5200, L501.9520, L503.7505 ####[facility] [address] [place], [address] Absolute Neut 7.6 X10 3/uL Normal 2.0-7.7 [facility] Comment on above: Performed By: #### L 100.0100, L500.2500, L501.5200, L501.9520, L503.7505 ####[facility] [address] [place], [address] Basophils/100 WBC (Bld) 0.7 % Normal 0-1 [facility] Comment on above: Performed By: #### L 100.0100, L500.2500, L501.5200, L501.9520, L503.7505 ####[facility] [address] [place], [address] Eosinophils/100 WBC (Bld) 2.2 % Normal 0-5 [facility] Comment on above: Performed By: #### L 100.0100, L500.2500, L501.5200, L501.9520, L503.7505 ####[facility] [address] [place], [address] Erythrocyte distribution width (RBC) [Ratio] 12.4 % Normal 11.6-14.6 [facility] Comment on above: Performed By: #### L 100.0100, L500.2500, L501.5200, L501.9520, L503.7505 ####[facility] [address] [place], [address] Hematocrit (Bld) [Volume fraction] 38.2 % Normal 37-47 [facility] Comment on above: Performed By: #### L 100.0100, L500.2500, L501.5200, L501.9520, L503.7505 ####[facility] [address] [place], [address] Hemoglobin (Bld) [Mass/Vol] 12.6 g/dL Normal 12.0-15.0 [facility] Comment on above: Performed By: #### L 100.0100, L500.2500, L501.5200, L501.9520, L503.7505 ####[facility] [address] [place], [address] IG% 0.600 Normal 0.0-0.9 [facility] Comment on above: Result Comment: IG% - Immature Granulocytes (promyelocytes, myelocytes and metamyelocytes) > 1% indicates that a LEFT SHIFT is Present. Performed By: #### L 100.0100, L500.2500, L501.5200, L501.9520, L503.7505 ####[facility] [address] [place], [address] Lymphocytes/100 WBC (Bld) 17.5 % Low 19-41 [facility] Comment on above: Performed By: #### L 100.0100, L500.2500, L501.5200, L501.9520, L503.7505 ####[facility] [address] [place], [address] MCH (RBC) [Entitic mass] 29.9 pg Normal 27.0-32.0 [facility] Comment on above: Performed By: #### L 100.0100, L500.2500, L501.5200, L501.9520, L503.7505 ####[facility] [address] [place], [address] MCHC (RBC) [Mass/Vol] 33.0 g/dL Normal 32-36 [facility] Comment on above: Performed By: #### L 100.0100, L500.2500, L501.5200, L501.9520, L503.7505 ####[facility] [address] [place], [address] MCV (RBC) [Entitic vol] 90.7 fL Normal 81-99 [facility] Comment on above: Performed By: #### L 100.0100, L500.2500, L501.5200, L501.9520, L503.7505 ####[facility] [address] [place], [address] Monocytes/100 WBC (Bld) 9.1 % Normal 0-10 [facility] Comment on above: Performed By: #### L 100.0100, L500.2500, L501.5200, L501.9520, L503.7505 ####[facility] [address] [place], [address] Neutrophils/100 WBC (Bld) 69.9 % Normal 47-70 [facility] Comment on above: Performed By: #### L 100.0100, L500.2500, L501.5200, L501.9520, L503.7505 ####[facility] [address] [place], [address] Nucleated RBC (Bld) [#/Vol] 0 10*3/uL Normal 0-5 [facility] Comment on above: Performed By: #### L 100.0100, L500.2500, L501.5200, L501.9520, L503.7505 ####[facility] [address] [place], [address] Platelet mean volume (Bld) [Entitic vol] 10.0 fL Normal 6.2-12.0 [facility] Comment on above: Performed By: #### L 100.0100, L500.2500, L501.5200, L501.9520, L503.7505 ####[facility] [address] [place], [address] Platelets (Bld) [#/Vol] 521 10*3/uL High 150-450 [facility] Comment on above: Performed By: #### L 100.0100, L500.2500, L501.5200, L501.9520, L503.7505 ####[facility] [address] [place], [address] RBC (Bld) [#/Vol] 4.21 10*6/uL Normal 4.2-5.4 [facility] Comment on above: Performed By: #### L 100.0100, L500.2500, L501.5200, L501.9520, L503.7505 ####[facility] [address] [place], [address] RDW SD 40.5 fl Normal 35.1-43.9 [facility] Comment on above: Performed By: #### L 100.0100, L500.2500, L501.5200, L501.9520, L503.7505 ####[facility] [address] [place], [address] WBC (Bld) [#/Vol] 10.9 10*3/uL Normal 4.4-11.0 [facility] Comment on above: Performed By: #### L 100.0100, L500.2500, L501.5200, L501.9520, L503.7505 ####[facility] [address] [place], [address] Carbon dioxide, total [Moles /volume] in Central venous bloodOrdered By: Karlie Johnson on 04-26-2025 CO2 [Moles/Vol] 26.5 mmol/L 21.0-32.0 [facility] Cardiology Visit Reporton Cardiology Visit Report [facility] [address] [place], [place] [address] OFFICE VISIT Date of Service: 04/26/25 MR#: [id number] Acct: [id number] Name: LEEANN CROCKETT Rep #: [id number] : 1960 Provider: GINO sesay Age/Sex: 65/F Location: 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 Normal [facility] Chloride assayOrdered By: Tarik Johnson on 04-26-2025 Chloride [Moles/Vol] 102 mmol/L 98-108 [facility] Eosinophil percentageOrdered By: Karlie Johnson on 04-26-2025 Eosinophils/100 WBC (Bld) 2.2 % 0-5 [facility] Erythrocyte distribution wid th ratioOrdered By: Karlie Johnson on 04-26-2025 Erythrocyte distribution width (RBC) [Ratio] 12.4 % 11.6-14.6 [facility] Erythrocyte distribution wid th standard deviationOrdered By: Karlie Johnson on 04-26-2025 Erythrocyte distribution width (RBC) [Ratio] 40.5 fl 35.1-43.9 [facility] Glomerular filtration rate ( GFR) estimation/1.73 sq m using serum, plasma, or whole bOrdered By: Karlie Johnson on 04-26-2025 GFR/1.73 sq M.predicted among non-blacks MDRD (S/P/Bld) [Vol rate/Area] 74 mL/min/{1.73_m2} >60 [facility] Comment on above: mL/min/1.73m2 CKD-EP I Creatinine Equation (2020) Hematocrit Auto (Bld) [Volum e fraction]Ordered By: Kralie Johnson on 04-26-2025 Hematocrit (Bld) [Volume fraction] 38.2 % 37-47 [facility] Hemoglobin measurementOrdere d By: Karlie Johnson on 04-26-2025 Hemoglobin (Bld) [Mass/Vol] 12.6 g/dL 12.0-15.0 [facility] Immature granulocytes/100 WB C Auto (Bld)Ordered By: Karlie Johnson on 04-26-2025 Immature granulocytes/100 WBC (Bld) 0.600 % 0.0-0.9 [facility] Comment on above: IG% - Immature Granu locytes (promyelocytes, myelocytes and metamyelocytes) > 1% indicates that a LEFT SHIFT is Present. Iron measurement (mass/mass) Ordered By: Yennifer Johnson on 04-26-2025 Iron (Unsp spec) [Mass/Mass] 65 ug/dL 50-170 [facility] L503.7505on 04-26-2025 proBNP < 36 Normal <=900 [facility] Comment on above: Result Comment: Hear t Failure Unlikely: < 300 pg/mL Heart Failure Likely < 50 Years: > 450 pg/mL 50-75 Years: > 900 pg/mL >75 Years: > 1800 pg/mL Performed By: #### L 100.0100, L500.2500, L501.5200, L501.9520, L503.7505 ####[facility] [address] [facility] [address] [place], [place], [address] MCV (mean corpuscular volume ) determinationOrdered By: Karlie Johnson on 04-26-2025 MCV (RBC) [Entitic vol] 90.7 fL 81-99 [facility] Magnesiumon 04-26-2025 Magnesium [Mass/Vol] 2.5 mg/dL High 1.5-2.2 [facility] Comment on above: Performed By: #### L 100.0100, L500.2500, L501.5200, L501.9520, L503.7505 ####[facility] [address] [place], [place], [id number] Magnesium measurement (mass/ volume)Ordered By: Karlie Johnson on 04-26-2025 Magnesium (Unsp spec) [Mass/Vol] 2.5 mg/dL High 1.5-2.2 [facility] Mean corpuscular hemoglobin (MCH) determinationOrdered By: Karlie Johnson on 04-26-2025 MCH (RBC) [Entitic mass] 29.9 pg 27.0-32.0 [facility] Mean corpuscular hemoglobin concentration (MCHC) determinationOrdered By: Karlie Johnson on 04-26-2025 MCHC (RBC) [Mass/Vol] 33.0 g/dL 32-36 [facility] Mean platelet volume determi nationOrdered By: Karlie Johnson on 04-26-2025 Platelet mean volume (Bld) [Entitic vol] 10.0 fL 6.2-12.0 [facility] Monocyte percentageOrdered B y: Karlie Johnson on 04-26-2025 Monocytes/100 WBC (Bld) 9.1 % 0-10 [facility] Natriuretic peptide.B prohor franklyn N-Terminal [Mass/volume] in Serum or PlasmaOrdered By: Karlie Johnson on 04-26-2025 Natriuretic peptide.B prohormone N-Terminal [Mass/Vol] < 36 pg/mL <900 [facility] Comment on above: Heart Failure Unlike ly: < 300 pg/mLHeart Failure Likely< 50 Years: > 450 pg/mL50-75 Years: > 900 pg/mL>75 Years: > 1800 pg/mL Neutrophil percentageOrdered By: Karlie Johnson on 04-26-2025 Neutrophils/100 WBC (Bld) 69.9 % 47-70 [facility] No Panel InformationOrdered By: Yennifer Johnson on 04-26-2025 Unsaturated Iron Binding Capacity 356 ug/dL 228-428 [facility] Nucleated red blood cell per centageOrdered By: Karlie Johnson on 04-26-2025 Nucleated RBC/100 WBC (Bld) [Ratio] 0 % 0-5 [facility] Platelet countOrdered By: Tarik Johnson on 04-26-2025 Platelets (Bld) [#/Vol] 521 10*3/uL High 150-450 [facility] Potassium measurement (mass/ volume)Ordered By: Karlie Johnson on 04-26-2025 Potassium (Unsp spec) [Mass/Vol] 3.7 mmol/L 3.3-5.1 [facility] RBC Auto (Bld) [#/Vol]Ordere d By: Karlie Johnson on 04-26-2025 RBC (Bld) [#/Vol] 4.21 10*6/uL 4.2-5.4 [facility] Serum creatinine measurement (mass/volume)Ordered By: Karlie Johnson on 04-26-2025 Creatinine [Mass/Vol] 0.87 mg/dL 0.70-1.20 [facility] Serum glucose measurement (m ass/volume)Ordered By: Karlie Johnson on 04-26-2025 Glucose [Mass/Vol] 97 mg/dL 70-99 [facility] Serum or plasma calcium kyree urement (mass/volume)Ordered By: Karlie Johnson on 04-26-2025 Calcium [Mass/Vol] 9.8 mg/dL 7.6-11.0 [facility] Serum or plasma ferritin terri surement (mass/volume)Ordered By: Yennifer Johnson on 04-26-2025 Ferritin [Mass/Vol] 69 ng/mL 22-378 [facility] Serum or plasma iron saturat ion measurement (mass fraction)Ordered By: Yennifer Johnson on 04-26-2025 Iron saturation [Mass fraction] 15.0 % 13-59 [facility] Serum or plasma urea nitroge n measurement (mass/volume)Ordered By: Karlie Johnson on 04-26-2025 Urea nitrogen [Mass/Vol] 18 mg/dL 4-19 [facility] Sodium levelOrdered By: Adali Johnson on 04-26-2025 Sodium [Moles/Vol] 139 mmol/L 133-145 [facility] TSH DL <= 0.005 mIU/L QnOrde red By: Karlie Johnson on 04-26-2025 TSH Qn 1.970 uIU/mL 0.300-4.200 [facility] Thyroid Stim Hormone (TSH)on 04-26-2025 TSH 1.970 uIU/mL Normal 0.300-4.200 [facility] Comment on above: Performed By: #### L 100.0100, L500.2500, L501.5200, L501.9520, L503.7505 ####[facility] [address] [place], [address] White blood cell (WBC) count Ordered By: Karlie Johnson on 04-26-2025 WBC (Bld) [#/Vol] 10.9 10*3/uL 4.4-11.0 [facility] Bilirubin directOrdered By: Larry Rodriguez on 03-24-2025 Bilirubin.direct [Mass/Vol] 0.14 mg/dL 0.00-0.30 [facility] Bilirubin, totalOrdered By: Larry Rodriguez on 03-24-2025 Bilirubin [Mass/Vol] 0.32 mg/dL 0.00-1.30 [facility] Calculated very low density lipoprotein (VLDL) cholesterol measurementOrdered By: Larry Rodriguez on 03-24-2025 Calculated very low density lipoprotein (VLDL) cholesterol measurement 22 mg/dL 5-40 [facility] LDL calc ser/plasOrdered By: Larry Rodriguez on 03-24-2025 Cholesterol in LDL [Mass/Vol] 98 mg/dL [facility] Comment on above: Rvalgcmpqo=275-755 m g/dL & Higher Nkaw=840 mg/dL or greater Laboratory - Chemistry and C hemistry - challengeOrdered By: Larry Rodriguez on 03-24-2025 AST [Catalytic activity/Vol] 18 U/L <32 [facility] Lipid Profileon 03-24-2025 CHOL:HDL 3.42 Normal [facility] Comment on above: Performed By: #### L 500.4100, L500.3400 #### [facility] [address] [place], [address] Cholesterol [Mass/Vol] 170 mg/dL Normal <=200 [facility] Comment on above: Result Comment: Chol esterol level, Desirable <200 mg/dL Borderline high cholesterol 200-239 mg/dL High cholesterol >=240 mg/dL Recommendations of the NCEP Adult Treatment Panel for the following risk-cutoff thresholds for the [place] population. Performed By: #### L 500.4100, L500.3400 #### [facility] [address] [place], [address] Cholesterol in HDL [Mass/Vol] 50 mg/dL Normal [facility] Comment on above: Result Comment: Alexandra onal Cholesterol Education Program (NCEP) guidelines: <40 mg/dL: Low HDL-cholesterol (major risk factor for CHD) >= 60 mg/dL: High HDL-cholesterol (negative risk factor for CHD) HDL-cholesterol is affected by a number of factors, e.g. smoking, exercise, hormones, sex and age. Performed By: #### L 500.4100, L500.3400 #### [facility] [address] [place], [address] Cholesterol in LDL [Mass/Vol] 98 mg/dL Normal [facility] Comment on above: Result Comment: Bord ozfpxm=857-274 mg/dL Higher Dxuu=710 mg/dL or greater Performed By: #### L 500.4100, L500.3400 #### [facility] [address] [place], [address] Cholesterol in VLDL [Mass/Vol] 22 mg/dL Normal 5-40 [facility] Comment on above: Performed By: #### L 500.4100, L500.3400 #### [facility] [address] [place], [address] Triglyceride [Mass/Vol] 111 mg/dL Normal [facility] Comment on above: Result Comment: The drugs N-Acetylcysteine and Metamizole may falsely depress this assay. Normal range: <150 mg/dL Borderline High: 150-199 mg/dL High: 200-499 mg/dL Very High: >500 mg/dL Performed By: #### L 500.4100, L500.3400 #### [facility] [address] [place], [address] Liver Profileon 03-24-2025 Albumin [Mass/Vol] 4.5 g/dL Normal 3.4-4.8 [facility] Comment on above: Performed By: #### L 500.4100, L500.3400 #### [facility] [address] [place], [address] ALK PHOS 79 U/L Normal 35-104 [facility] Comment on above: Performed By: #### L 500.4100, L500.3400 #### [facility] [address] [place], [address] ALT [Catalytic activity/Vol] 16 U/L Normal <=34 [facility] Comment on above: Performed By: #### L 500.4100, L500.3400 #### [facility] [address] [place], [address] AST [Catalytic activity/Vol] 18 U/L Normal <=31 [facility] Comment on above: Performed By: #### L 500.4100, L500.3400 #### [facility] [address] [place], [address] Bilirubin [Mass/Vol] 0.32 mg/dL Normal 0.00-1.30 [facility] Comment on above: Performed By: #### L 500.4100, L500.3400 #### [facility] [address] [place], [address] Bilirubin.direct [Mass/Vol] 0.14 mg/dL Normal 0.00-0.30 [facility] Comment on above: Performed By: #### L 500.4100, L500.3400 #### [facility] [address] [place], [address] Globulin (S) [Mass/Vol] 2.9 g/dL Normal 2.2-4.2 [facility] Comment on above: Performed By: #### L 500.4100, L500.3400 #### [facility] [address] [place], [address] T PROT 7.4 g/dL Normal 5.9-8.4 [facility] Comment on above: Performed By: #### L 500.4100, L500.3400 #### [facility] [address] [place], [address] Screening total cholesterol/ high density lipoprotein (HDL) cholesterol ratioOrdered By: Larry Rodriguez on 03-24-2025 Cholesterol.total/Jennifer sterol in HDL [Mass ratio] 3.42 {ratio} [facility] Serum globulin measurementOr dered By: Larry Rodriguez on 03-24-2025 Globulin (S) [Mass/Vol] 2.9 g/dL 2.2-4.2 [facility] Serum or plasma alanine castañeda otransferase (ALT) measurementOrdered By: Larry Rodriguez on 03-24-2025 ALT [Catalytic activity/Vol] 16 U/L <35 [facility] Serum or plasma albumin kyree urement (mass/volume)Ordered By: Larry Rodriguez on 03-24-2025 Albumin [Mass/Vol] 4.5 g/dL 3.4-4.8 [facility] Serum or plasma alkaline tevin sphatase measurementOrdered By: Larry Rodriguez on 03-24-2025 ALP [Catalytic activity/Vol] 79 U/L 35-104 [facility] Serum or plasma cholesterol in HDL measurement (mass/volume)Ordered By: Larry Rodriguez on 03-24-2025 Cholesterol in HDL [Mass/Vol] 50 mg/dL >40 [facility] Comment on above: National Cholesterol Education Program (NCEP) guidelines:<40 mg/dL: Low HDL-cholesterol (major risk factor for CHD)>= 60 mg/dL: High HDL-cholesterol (negative risk factor for CHD)HDL-cholesterol is affected by a number of factors, e.g. smoking, exercise, hormones, sex and age. Serum or plasma cholesterol measurement (mass/volume)Ordered By: Larry Rodriguez on 03-24-2025 Cholesterol [Mass/Vol] 170 mg/dL <201 [facility] Comment on above: Cholesterol level, D esirable <200 mg/dLBorderline high cholesterol 200-239 mg/dLHigh cholesterol >=240 mg/dLRecommendations of the NCEP Adult Treatment Panel for the following risk-cutoff thresholds for the [place] population. Total proteinOrdered By: Diallo Rodriguez on 03-24-2025 Protein [Mass/Vol] 7.4 g/dL 5.9-8.4 [facility] Triglycerides measurementOrd ered By: Larry Rodriguez on 03-24-2025 Triglyceride [Mass/Vol] 111 mg/dL <199 [facility] Comment on above: The drugs N-Acetylcy steine and Metamizole may falsely depress this assay. Normal range: <150 mg/dLBorderline High: 150-199 mg/dLHigh: 200-499 mg/dLVery High: >500 mg/dL Dexa Bone Density Studyon Dexa Bone Density Study [facility] Imaging Services [address] [place] [address] [id number] Dexa Bone Density Study MR#: [id number] Acct: [id number] Name: LEEANN CROCKETT Rep #: [id number] : 1960 F 64 From: Deandre Ricks MD PCP: Dr. Yennifer Johnson MD Status: [facility] Study: Dexa Bone Density Study Date of Exam: 10/24/24 Exam# [id number] Ordering Dr: Yennifer Johnson MD [id number] STUDY: DUAL ENERGY X-RAY ABSORPTIOMETRY / DXA [...] EST , CC: Dr. Yennifer Johnson MD Critical Care Nurse: Signed Normal [facility] SCRN MAMM (CAD)W/DARRELL BILATo n 10-24-2024 SCRN MAMM (CAD)W/DARRELL BILAT [facility] Imaging Services [address] [place] [address] SCRN MAMM (CAD)W/DARRELL BILAT MR#: [id number] Acct: [id number] Name: LEEANN CROCKETT Rep #: [id number] : 1960 F 64 From: Deandre Ricks MD PCP: Dr. Yennifer Johnson MD Status: REG [facility] Study: SCRN MAMM (CAD)W/DARRELL BILAT Date of Exam: 09/26 11/17 Exam# [id number] Ordering Dr: Yennifer Johnson [place] [id number] MAMMOGRAPHY - BILATERAL SCREENING 3-D TOMOSYNTHESIS REASON [...] EST , CC: Dr. Yennifer Johnson MD Critical Care Nurse: Signed Normal [facility] Lipid Profileon 10-21-2024 Cholesterol [Mass/Vol] 184 mg/dL Normal 200 [facility] Comment on above: Result Comment: <200 mg/dL Desirable 200-240 mg/dL Borderline >240 mg/dL High Risk Performed By: #### L 500.4100, L500.3400 #### [facility] [address] [place], [address] Cholesterol in HDL [Mass/Vol] 71 mg/dL Normal [facility] Comment on above: Result Comment: The drugs N-Acetylcysteine and Metamizole may falsely depress this assay. Reference Range HDL <40 mg/dL Low HDL Cholesterol HDL >or= 60 mg/dL High HDL Cholesterol Performed By: #### L 500.4100, L500.3400 #### [facility] [address] [place], [address] Cholesterol in LDL [Mass/Vol] 102 mg/dL Normal 0-130 [facility] Comment on above: Performed By: #### L 500.4100, L500.3400 #### [facility] [address] [place], [address] Cholesterol in VLDL [Mass/Vol] 11 mg/dL Normal 5-40 [facility] Comment on above: Performed By: #### L 500.4100, L500.3400 #### [facility] [address] [place], [address] Triglyceride [Mass/Vol] 55 mg/dL Normal [facility] Comment on above: Result Comment: The drugs N-Acetylcysteine and Metamizole may falsely depress this assay. Serum Triglycerides Reference Interval Normal <150 mg/dL Borderline high 150 - 199 mg/dL High 200 - 499 mg/dL Very High > or = 500 mg/dL Performed By: #### L 500.4100, L500.3400 #### [facility] [address] [place], [address] Liver Profileon 10-21-2024 Albumin [Mass/Vol] 3.7 g/dL Normal 3.2-5.0 [facility] Comment on above: Performed By: #### L 500.4100, L500.3400 #### [facility] [address] [place], [address] ALK P 90 U/L Normal 45-117 [facility] Comment on above: Performed By: #### L 500.4100, L500.3400 #### [facility] [address] [place], [address] ALT [Catalytic activity/Vol] 17 U/L Normal 13-56 [facility] Comment on above: Performed By: #### L 500.4100, L500.3400 #### [facility] [address] [place], [address] AST [Catalytic activity/Vol] 14 U/L Low 15-37 [facility] Comment on above: Performed By: #### L 500.4100, L500.3400 #### [facility] [address] [place], [address] Bilirubin [Mass/Vol] 0.40 mg/dL Normal 0.20-1.00 [facility] Comment on above: Result Comment: For patients on eltrombopag therapy, use of Dimension [place] TBIL is not recommended. Performed By: #### L 500.4100, L500.3400 #### [facility] [address] [place], [address] Bilirubin.direct [Mass/Vol] 0.14 mg/dL Normal 0.00-0.30 [facility] Comment on above: Performed By: #### L 500.4100, L500.3400 #### [facility] [address] [place], [address] Globulin (S) [Mass/Vol] 4.0 g/dL Normal 2.2-4.2 [facility] Comment on above: Performed By: #### L 500.4100, L500.3400 #### [facility] [address] [place], [address] T PROT 7.7 g/dL Normal 6.4-8.2 [facility] Comment on above: Performed By: #### L 500.4100, L500.3400 #### [facility] [address] [place], [address] Basic Metabolic Profile (BMP )on 07-10-2024 BUN/CRE 21.5 RATIO High 10-20 [facility] Comment on above: Performed By: #### L 100.0100, L500.2500 ####[facility] [address] [place], [address] CA,Total 9.5 mg/dL Normal 8.5-10.1 [facility] Comment on above: Performed By: #### L 100.0100, L500.2500 ####[facility] [address] [place], [address] Chloride [Moles/Vol] 105 mmol/L Normal 98-107 [facility] Comment on above: Performed By: #### L 100.0100, L500.2500 ####[facility] [address] [place], [address] CO2 [Moles/Vol] 27.0 mmol/L Normal 21.0-32.0 [facility] Comment on above: Performed By: #### L 100.0100, L500.2500 ####[facility] [address] [place], [address] Creatinine [Mass/Vol] 0.70 mg/dL Normal 0.55-1.02 [facility] Comment on above: Result Comment: The validity of the calculated GFR GFRAA in patients over 70 years has not been determined. Clinical correlation is essential. Performed By: #### L 100.0100, L500.2500 ####[facility] [address] [place], [address] EST GFR - AA 109 mL/min Normal >60 [facility] Comment on above: Result Comment: Afri can Afghan GFR Calc Performed By: #### L 100.0100, L500.2500 ####[facility] [address] [place], [address] GAP 6 Normal 5-15 [facility] Comment on above: Performed By: #### L 100.0100, L500.2500 ####[facility] [address] [place], [address] GFR/1.73 sq M.predicted among non-blacks MDRD (S/P/Bld) [Vol rate/Area] 90 mL/min/{1.73_m2} Normal >60 [facility] Comment on above: Result Comment: Non- GFR Calc Performed By: #### L 100.0100, L500.2500 ####[facility] [address] [place], [address] Glucose [Mass/Vol] 106 mg/dL Normal 74-106 [facility] Comment on above: Result Comment: Fast ing Glucose result from 100 to 125 mg/dL suggests IMPAIRED HOMEOSTASIS per A.D.A. criteria. Performed By: #### L 100.0100, L500.2500 ####[facility] [address] [place], [address] Potassium [Moles/Vol] 3.9 mmol/L Normal 3.5-5.1 [facility] Comment on above: Performed By: #### L 100.0100, L500.2500 ####[facility] [address] [place], [address] Sodium [Moles/Vol] 138 mmol/L Normal 136-145 [facility] Comment on above: Performed By: #### L 100.0100, L500.2500 ####[facility] [address] [place], [address] Urea nitrogen [Mass/Vol] 15 mg/dL Normal 7-18 [facility] Comment on above: Performed By: #### L 100.0100, L500.2500 ####[facility] [address] [place], [address] CBC W/Diff, Automatedon 06-25 Absolute Lymph 1.74 X10 3/uL Normal 0.83-4.51 [facility] Comment on above: Performed By: #### L 100.0100, L500.2500 #### [facility] [address] [place], [address] Absolute Neut 7.0 X10 3/uL Normal 2.0-7.7 [facility] Comment on above: Performed By: #### L 100.0100, L500.2500 #### [facility] [address] [place], [address] Basophils/100 WBC (Bld) 0.5 % Normal 0-1 [facility] Comment on above: Performed By: #### L 100.0100, L500.2500 #### [facility] [address] [place], [address] Eosinophils/100 WBC (Bld) 1.8 % Normal 0-5 [facility] Comment on above: Performed By: #### L 100.0100, L500.2500 #### [facility] [address] [place], [address] Erythrocyte distribution width (RBC) [Ratio] 13.1 % Normal 11.6-14.6 [facility] Comment on above: Performed By: #### L 100.0100, L500.2500 #### [facility] [address] [place], [address] Hematocrit (Bld) [Volume fraction] 37.1 % Normal 37-47 [facility] Comment on above: Performed By: #### L 100.0100, L500.2500 #### [facility] [address] [place], [address] Hemoglobin (Bld) [Mass/Vol] 11.9 g/dL Low 12.0-15.0 [facility] Comment on above: Performed By: #### L 100.0100, L500.2500 #### [facility] [address] [place], [address] IG% 0.700 Normal 0.0-0.9 [facility] Comment on above: Result Comment: IG% - Immature Granulocytes (promyelocytes, myelocytes and metamyelocytes) > 1% indicates that a LEFT SHIFT is Present. Performed By: #### L 100.0100, L500.2500 #### [facility] [address] [place], [address] Lymphocytes/100 WBC (Bld) 17.7 % Low 19-41 [facility] Comment on above: Performed By: #### L 100.0100, L500.2500 #### [facility] [address] [place], [address] MCH (RBC) [Entitic mass] 28.5 pg Normal 27.0-32.0 [facility] Comment on above: Performed By: #### L 100.0100, L500.2500 #### [facility] [address] [place], [address] MCHC (RBC) [Mass/Vol] 32.1 g/dL Normal 32-36 [facility] Comment on above: Performed By: #### L 100.0100, L500.2500 #### [facility] [address] [place], [address] MCV (RBC) [Entitic vol] 88.8 fL Normal 81-99 [facility] Comment on above: Performed By: #### L 100.0100, L500.2500 #### [facility] [address] [place], [address] Monocytes/100 WBC (Bld) 8.1 % Normal 0-10 [facility] Comment on above: Performed By: #### L 100.0100, L500.2500 #### [facility] [address] [place], [address] Neutrophils/100 WBC (Bld) 71.2 % High 47-70 [facility] Comment on above: Performed By: #### L 100.0100, L500.2500 #### [facility] [address] [place], [address] Nucleated RBC (Bld) [#/Vol] 0 10*3/uL Normal 0-5 [facility] Comment on above: Performed By: #### L 100.0100, L500.2500 #### [facility] [address] [place], [address] Platelet mean volume (Bld) [Entitic vol] 9.9 fL Normal 6.2-12.0 [facility] Comment on above: Performed By: #### L 100.0100, L500.2500 #### [facility] [address] [place], [address] Platelets (Bld) [#/Vol] 449 10*3/uL Normal 150-450 [facility] Comment on above: Performed By: #### L 100.0100, L500.2500 #### [facility] [address] [place], [address] RBC (Bld) [#/Vol] 4.18 10*6/uL Low 4.2-5.4 [facility] Comment on above: Performed By: #### L 100.0100, L500.2500 #### [facility] [address] [place], [address] RDW SD 42.4 fl Normal 35.1-43.9 [facility] Comment on above: Performed By: #### L 100.0100, L500.2500 #### [facility] [address] [place], [address] WBC (Bld) [#/Vol] 9.8 10*3/uL Normal 4.4-11.0 [facility] Comment on above: Performed By: #### L 100.0100, L500.2500 #### [facility] [address] [place], [address] Internal Medicine Office Vis aden 07-10-2024 Internal Medicine Office Visit [facility] [address] [place] [address] [address] [place] [address] OFFICE VISIT Date of Service: 07/10/24 MR#: [id number] Acct: [id number] Name: LEEANN CROCKETT Rep #: [id number] : 1960 Provider: Dr. Yennifer garza MD Age/Sex: 64/F [place] [facility] Status: Signed Intake Vital Signs 02/25/24 13:15 [...] Visit Reasons: WELLNESS PHYSICAL Chief Complaint: wellness Systems Test Technician Required: No Accompanied by: Self Is patient [...] use type: (more content not included)... Normal [facility] PT D/C Summary (1)on 024 PT D/C Summary (1) [facility] Physical Therapy [facility] [address] [place] [address] / REHABILITATION SERVICES DISCHARGE SUMMARY MR#: [id number] Acct: [id number] Name: LEEANN CROCKETT Rep #: [id number] : 1960 64 From: Clayton Valles PT, [...] please feel free to call me at [phone]. Thank you for the referral of this patient. Sincerely, Clayton Valles, PT, ATC Balance/Gait/Functiona l tests Balance/Special Test Scores Lower Extremity Functional Score: 64 Tug Test: <10 sec.=free mobile WOMAC Total Score: 31 WOMAC Percentage: 67.7100 Improvement % Improvement: 95 06/15/24 1629 CC: Tin West MD; Dr. Yennifer Johnson MD [facility] Signed Normal [facility] Re-Evaluation - PT (1)on Re-Evaluation - PT (1) [facility] [address] [place] [address] / REEVALUATION / MEDICARE RECERTIFICATION PHYSICAL THERAPY MR#: [id number] Acct: [id number] Name: LEEANN CROCKETT Rep #: [id number] : 1960 64 From: Meghan Lopez DPT [...] do not hesitate to contact me at [phone] by phone or if you have questions or concerns regarding this new plan of care! Sincerely, Meghan Lopez, DPT 05/18/24 3437 CC: Tin West MD; Dr. Yennifer Johnson MD ELR Signed For Medicare only, by signing this I certify the plan of care. Physicians Signature Date Normal [facility] Bacteria identifiedon 2023 Bacteria identified Cx Nom (U) Test: Urine Culture Specimen Source: Clean Catch/Voided Specimen Type: Urine Specimen Date: 04/04/2024 1057 Result Date: 04/05/2024 1613 Result Status: Final result Abnormal: No Resulting Lab: [facility] [address] [place] [id number] CULTURE No growth Normal [facility] Comment on above: Performed By: #### 6 30-4 #### CONNOR Grant ([id number]) [facility] ([facility]) [address] [place] [address] Basic metabolic 2000 panelon 04-04-2024 Anion gap [Moles/Vol] 10 mmol/L NINF - 19 mmol/L [facility] Calcium [Mass/Vol] 8.7 mg/dL 8.5 - 10. 4 mg/dL [facility] Chloride [Moles/Vol] 105 mmol/L 97 - 10 7 mmol/L [facility] CO2 [Moles/Vol] 24 mmol/L 24 - 31 mmol/L [facility] Creatinine [Mass/Vol] 0.70 mg/dL 0.40 - 1.60 mg/dL [facility] eGFR - PINF [facility] Comment on above: Calculations of perla mated GFR are performed using the 2020 CKD-EPI Study Refit equation without the race variable for the IDMS-Traceable creatinine methods. https://jasn.asnjournals.org/content/early//ASN.2020 506970 Glucose [Mass/Vol] 151 mg/dL High 65 - 99 mg/dL [facility] Interpretation and review of laboratory results Abnormal [facility] Potassium [Moles/Vol] 4.1 mmol/L 3.4 - 5.1 mmol/L [facility] Sodium [Moles/Vol] 139 mmol/L 133 - 145 mmol/L [facility] Urea nitrogen [Mass/Vol] 18 mg/dL 8 - 25 mg/dL [facility] Anion gap [Moles/Vol] 10 mmol/L Normal <=19 [facility] Comment on above: Performed By: #### 2 4321-2 #### RONAL Alvarez ([id number]) [facility] () [address] [place] [address] Calcium [Mass/Vol] 8.7 mg/dL Normal 8.5-10.4 [facility] Comment on above: Performed By: #### 2 4321-2 #### RONAL Alvarez ([id number]) [facility] () [address] [place] [address] Chloride [Moles/Vol] 105 mmol/L Normal 97-107 [facility] Comment on above: Performed By: #### 2 4321-2 #### RONAL Alvarez ([id number]) [facility] () [address] [place] [address] CO2 [Moles/Vol] 24 mmol/L Normal 24-31 [facility] Comment on above: Performed By: #### 2 4321-2 #### RONAL Alvarez ([id number]) [facility] () [address] [place] [address] Creatinine [Mass/Vol] 0.70 mg/dL Normal 0.40-1.60 [facility] Comment on above: Performed By: #### 2 4321-2 #### RONAL Alvarez ([id number]) [facility] () [address] [place] [address] GFR/1.73 sq M.predicted MDRD (S/P/Bld) [Vol rate/Area] mL/min/{1.73_m2} Normal >60 [facility] Comment on above: Result Comment: Calc ulations of estimated GFR are performed using the 2020 CKD-EPI Study Refit equation without the race variable for the IDMS-Traceable creatinine methods. https://jasn.asnjournals.org/content/early// 708848 Performed By: #### 2 4321-2 #### RONAL Alvarez ([id number]) [facility] () [address] [place] [address] Glucose [Mass/Vol] 151 mg/dL High 65-99 [facility] Comment on above: Performed By: #### 2 4321-2 #### RONAL Alvarez ([id number]) [facility] () [address] [place] [address] Potassium [Moles/Vol] 4.1 mmol/L Normal 3.4-5.1 [facility] Comment on above: Performed By: #### 2 4321-2 #### RONAL Alvarez (15290) [facility] () [address] [place] [address] Sodium [Moles/Vol] 139 mmol/L Normal 133-145 [facility] Comment on above: Performed By: #### 2 4321-2 #### RONAL Alvarez (71702) [facility] () [address] [place] [address] Urea nitrogen [Mass/Vol] 18 mg/dL Normal 8-25 [facility] Comment on above: Performed By: #### 2 4321-2 #### RONAL Alvarez ([id number]) [facility] () [address] [place] [address] CBC panel Auto (Bld)on 04-04 Erythrocyte distribution width (RBC) [Ratio] 12.0 % 11.5 - 14.5 % [facility] Hematocrit (Bld) [Volume fraction] 30.1 % Low 36.0 - 46.0 % [facility] Hemoglobin (Bld) [Mass/Vol] 10.5 g/dL Low 12.0 - 16.0 g/dL [facility] Interpretation and review of laboratory results Abnormal [facility] MCH (RBC) [Entitic mass] 29.9 pg 26.0 - 34.0 pg [facility] MCHC (RBC) [Mass/Vol] 34.9 g/dL 32.0 - 36.0 g/dL [facility] MCV (RBC) [Entitic vol] 86 fL 80 - 100 fL [facility] Nucleated RBC/100 WBC (Bld) [Ratio] 0.0 % [facility] Platelets (Bld) [#/Vol] 360 10*3/uL [facility] RBC (Bld) [#/Vol] 3.51 10*6/uL Low [facility] WBC (Bld) [#/Vol] 21.9 10*3/uL [facility] Eryth[facility] distribution width (RBC) [Ratio] 12.0 % Normal 11.5-14.5 [facility] Comment on above: Performed By: #### 5 8410-2 #### RONAL Alvarez ([id number]) [facility] () [address] [place] [address] Hematocrit (Bld) [Volume fraction] 30.1 % Low 36.0-46.0 [facility] Comment on above: Performed By: #### 5 8410-2 #### RONAL Alvarez ([id number]) [facility] () [address] [place] [address] Hemoglobin (Bld) [Mass/Vol] 10.5 g/dL Low 12.0-16.0 [facility] Comment on above: Performed By: #### 5 8410-2 #### RONAL Alvarez (38551) [facility] () [address] [place] [address] MCH (RBC) [Entitic mass] 29.9 pg Normal 26.0-34.0 [facility] Comment on above: Performed By: #### 5 8410-2 #### RONAL Alvarez (74087) [facility] () [address] [place] [address] MCHC (RBC) [Mass/Vol] 34.9 g/dL Normal 32.0-36.0 [facility] Comment on above: Performed By: #### 5 8410-2 #### RONAL Alvarez ([id number]) [facility] () [address] [place] [address] MCV (RBC) [Entitic vol] 86 fL Normal 80-100 [facility] Comment on above: Performed By: #### 5 8410-2 #### RONAL Alvarez (96997) [facility] () [address] [place] [address] Nucleated RBC/100 WBC (Bld) [Ratio] 0.0 /100 WBCs Normal 0.0-0.0 [facility] Comment on above: Performed By: #### 5 8410-2 #### RONAL Alvarez (88297) [facility] () [address] [place] [address] Platelets (Bld) [#/Vol] 360 x10*3/uL Normal 150-450 [facility] Comment on above: Performed By: #### 5 8410-2 #### RONAL Alvarez (55526) [facility] () [address] [place] [address] RBC (Bld) [#/Vol] 3.51 x10*6/uL Low 4.00-5.20 [facility] Comment on above: Performed By: #### 5 8410-2 #### RONAL Alvarez (25553) [facility] () [address] [place] [address] WBC (Bld) [#/Vol] 21.9 x10*3/uL High 4.4-11.3 [facility] Comment on above: Performed By: #### 5 8410-2 #### RONAL Alvarez ([id number]) [facility] () [address] [place] [address] No Panel Informationon 04-04 Interpretation and review of laboratory results Abnormal [facility] Urinalysis complete W Reflex Culture panel (U)on 04-04-2024 Appearance (U) Clear Clear [facility] Bilirubin (U) [Mass/Vol] Negative NEGATIVE [facility] Color (U) Light-Yellow Light-Yello w, Yellow, Dark-Yellow [facility] Glucose Auto test strip (U) [Mass/Vol] Normal Normal mg/dL [facility] Ketones (U) [Mass/Vol] Negative NEGAT AMANDA mg/dL [facility] Leukocyte esterase Auto test strip Ql (U) 75 Angi/ L Abnormal NEGATIVE [facility] Nitrite Auto test strip Ql (U) Negative NEGATIVE [facility] pH (U) 5.5 [pH] 5.0, 5.5, 6.0, 6.5, 7.0, 7.5, 8.0 [facility] Protein (U) [Mass/Vol] Negative NEGAT AMANDA, 10 (TRACE), 20 (TRACE) mg/dL [facility] RBC (U) [#/Vol] 0.1 (1+) Abnormal NEGATIVE [facility] Specific gravity (U) [Rel density] 1.011 1.005 - 1.035 [facility] Urobilinogen (U) [Mass/Vol] Normal Normal mg/dL [facility] Appearance (U) Clear Normal Clear [facility] Comment on above: Performed By: #### 5 8077-9 #### RONAL Alvarez (61428) [facility] () [address] [place] [address] Bilirubin (U) [Mass/Vol] Negative Normal NEGATIVE [facility] Comment on above: Performed By: #### 5 8077-9 #### RONAL Alvarez (36275) [facility] () [address] [place] [address] Color (U) Light-Yellow Normal Light-Yello w, Yellow, Dark-Yellow [facility] Comment on above: Performed By: #### 5 8077-9 #### RONAL Alvarez ([id number]) [facility] () [address] [place] [address] Glucose Auto test strip (U) [Mass/Vol] Normal Normal Normal [facility] Comment on above: Performed By: #### 5 8077-9 #### RONAL Alvarez ([id number]) [facility] () [address] [place] [address] Ketones (U) [Mass/Vol] Negative Normal NEGATIVE [facility] Comment on above: Performed By: #### 5 8077-9 #### RONAL Alvarez (25179) [facility] () [address] [place] [address] Leukocyte esterase Auto test strip Ql (U) 75 Angi/???L Abnormal NEGATIVE [facility] Comment on above: Performed By: #### 5 8077-9 #### RONAL Alvarez (75056) [facility] () [address] [place] [address] Nitrite Auto test strip Ql (U) Negative Normal NEGATIVE [facility] Comment on above: Performed By: #### 5 8077-9 #### RONAL Alvarez ([id number]) [facility] () [address] [place] [address] pH (U) 5.5 [pH] Normal 5.0, 5.5, 6.0, 6.5, 7.0, 7.5, 8.0 [facility] Comment on above: Performed By: #### 5 8077-9 #### RONAL Alvarez (77787) [facility] () [address] [place] [address] Protein (U) [Mass/Vol] Negative Normal NEGAT AMANDA, 10 (TRACE), 20 (TRACE) [facility] Comment on above: Performed By: #### 5 8077-9 #### RONAL Alvarez (94713) [facility] () [address] [place] [address] RBC (U) [#/Vol] 0.1 (1+) Abnormal NEGATIVE [facility] Comment on above: Performed By: #### 5 3077-9 #### RONAL Alvarez (08752) [facility] () [address] [place] [address] Specific gravity (U) [Rel density] 1.011 Normal 1.005-1.035 [facility] Comment on above: Performed By: #### 5 8077-9 #### RONAL Alvarez (96387) [facility] () [address] [place] [address] Urobilinogen (U) [Mass/Vol] Normal Normal Normal [facility] Comment on above: Performed By: #### 5 8077-9 #### RONAL Alvarez (22941) [facility] () [address] [place] [address] Urinalysis microscopic panel Auto Ql (U)on 04-04-2024 Epithelial cells.squamous Auto (Urine sed) [#/Area] 1-9 (SPARSE) Reference range not established . /HPF [facility] Mucus Auto (Urine sed) [#/Area] FEW Reference range not established . /LPF [facility] RBC Auto (Urine sed) [#/Area] 11-20 Abnormal NONE, 1-2, 3-5 /HPF [facility] WBC Auto (Urine sed) [#/Area] 6-10 Abnormal 1-5, NONE /HPF [facility] Epithelial cells.squamous Auto (Urine sed) [#/Area] 1-9 (SPARSE) Normal Reference range not established . [facility] Comment on above: Performed By: #### 5 3315-8 #### RONAL Alvarez ([id number]) [facility] () [address] [place] [address] Mucus Auto (Urine sed) [#/Area] FEW Normal Reference range not established . [facility] Comment on above: Performed By: #### 5 3315-8 #### RONAL Alvarez (84661) [facility] () [address] [place] [address] RBC Auto (Urine sed) [#/Area] 11-20 Abnormal NONE, 1-2, 3-5 [facility] Comment on above: Performed By: #### 5 3315-8 #### RONAL Alvarez ([id number]) [facility] () [address] [place] [address] WBC Auto (Urine sed) [#/Area] 6-10 Abnormal 1-5, NONE [facility] Comment on above: Performed By: #### 5 3315-8 #### RONAL FISHER T ([id number]) [facility] () [address] [place] [address] XR CHEST 1 VIEWon 04-04-2024 XR CHEST 1 VIEW Interpreted By: Rafael Ibanez, STUDY: XR CHEST 1 VIEW; ; 04/04/2024 8:59 am INDICATION: Signs/Symptoms:leukocy tosis. COMPARISON: None. ACCESSION NUMBER(S): [id number] ORDERING CLINICIAN: KESHAWN STEVENSON TECHNIQUE: Single AP view chest FINDINGS: Cardiac silhouette is within normal limits. No infiltrate or effusion identified. Visualized osseous structures demonstrate glenohumeral joint osteoarthritis bilaterally. IMPRESSION: 1. No acute process MACRO: None Signed by: Rafael Shepard 04/04/2024 9:46 AM Dictation workstation: [id number] Normal [facility] XR Chest Single viewon 04-04 1. No acute process MACRO: None Signed by: Rafael Shepard 04/04/2024 9:46 AM Dictation workstation: [id number] [facility] Interpreted By: Rafael Ibanez, STUDY: XR CHEST 1 VIEW; ; 04/04/2024 8:59 am INDICATION: Signs/Symptoms:leukocy tosis. COMPARISON: None. ACCESSION NUMBER(S): [id number] ORDERING CLINICIAN: KESHAWN STEVENSON TECHNIQUE: Single AP view chest FINDINGS: Cardiac silhouette is within normal limits. No infiltrate or effusion identified. Visualized osseous structures demonstrate glenohumeral joint osteoarthritis bilaterally. [facility] Rafael Shepard MD - 04/04/2024 Interpreted By: Rafael Shepard, STUDY: XR CHEST 1 VIEW; ; 04/04/2024 8:59 am INDICATION: Signs/Symptoms:leukocy tosis. COMPARISON: None. ACCESSION NUMBER(S): [id number] ORDERING CLINICIAN: KESHAWN STEVENSON TECHNIQUE: Single AP view chest FINDINGS: Cardiac silhouette is within normal limits. No infiltrate or effusion identified. Visualized osseous structures demonstrate glenohumeral joint osteoarthritis bilaterally. IMPRESSION: 1. No acute process MACRO: None Signed by: Rafael Shepard 04/04/2024 9:46 AM Dictation workstation: [id number] [facility] Work Phone: Radiology Study observation (narrative) [facility] Work Phone: XR Chest Single viewOrdered By: Rafael Shepard on 04-04-2024 [facility] Work Phone: XR KNEE LEFT 1-2 VIEWSon XR KNEE LEFT 1-2 VIEWS Interpreted By: Herman Marquez, STUDY: XR KNEE LEFT 1-2 VIEWS; 04/03/2024 10:27 am INDICATION: Signs/Symptoms:Post-op knee. COMPARISON: None. ACCESSION NUMBER(S): [id number] ORDERING CLINICIAN: TIN WEST FINDINGS: Components of left knee arthroplasty are in anatomic alignment. Postoperative soft tissue gas. IMPRESSION: New left knee arthroplasty in anatomic alignment. MACRO: None Signed by: Herman Marquez 04/03/2024 11:33 AM Dictation workstation: [id number] [facility] Comment on above: Order Comment: AP an d Lateral view of (left) postoperative knee in PACU. XR Knee - left 1 or 2 Viewso n 04-03-2024 New left knee arthroplasty in anatomic alignment. MACRO: None Signed by: Herman Marquez 04/03/2024 11:33 AM Dictation workstation: [id number] [facility] Interpreted By: Herman Marquez, STUDY: XR KNEE LEFT 1-2 VIEWS; 04/03/2024 10:27 am INDICATION: Signs/Symptoms:Post-op knee. COMPARISON: None. ACCESSION NUMBER(S): [id number] ORDERING CLINICIAN: TIN WEST FINDINGS: Components of left knee arthroplasty are in anatomic alignment. Postoperative soft tissue gas. [facility] Herman Marquez MD - 04/03/2024 Interpreted By: Herman Marquez, STUDY: XR KNEE LEFT 1-2 VIEWS; 04/03/2024 10:27 am INDICATION: Signs/Symptoms:Post-op knee. COMPARISON: None. ACCESSION NUMBER(S): [id number] ORDERING CLINICIAN: TIN WEST FINDINGS: Components of left knee arthroplasty are in anatomic alignment. Postoperative soft tissue gas. IMPRESSION: New left knee arthroplasty in anatomic alignment. MACRO: None Signed by: Herman Marquez 04/03/2024 11:33 AM Dictation workstation: [id number] [facility] Work Phone: Radiology Study observation (narrative) [facility] Work Phone: XR Knee - left 1 or 2 ViewsO rdered By: Herman Marquez on 04-03-2024 [facility] Work Phone: Basic metabolic 2000 panelon 03-21-2024 Anion gap [Moles/Vol] 15 mmol/L Normal <=19 [facility] Comment on above: Performed By: #### 2 4321-2 #### RONAL Alvarez ([id number]) [facility] () [address] [place] [address] Calcium [Mass/Vol] 10.2 mg/dL Normal 8.5-10.4 [facility] Comment on above: Performed By: #### 2 4321-2 #### RONAL Alvarez ([id number]) [facility] () [address] [place] [address] Chloride [Moles/Vol] 103 mmol/L Normal 97-107 [facility] Comment on above: Performed By: #### 2 4321-2 #### RONAL Alvarez (60817) [facility] () [address] [place] [address] CO2 [Moles/Vol] 24 mmol/L Normal 24-31 [facility] Comment on above: Performed By: #### 2 4321-2 #### RONAL Alvarez (15286) [facility] () [address] [place] [address] Creatinine [Mass/Vol] 0.90 mg/dL Normal 0.40-1.60 [facility] Comment on above: Performed By: #### 2 4321-2 #### RONAL Alvarez (70677) [facility] () [address] [place] [address] Glomerular filtration rate/1.73 sq M.predicted 72 mL/min/1.73m*2 Normal >[address] [facility] Comment on above: Result Comment: Calc ulations of estimated GFR are performed using the 2020 CKD-EPI Study Refit equation without the race variable for the IDMS-Traceable creatinine methods. https://jasn.asnjournals.org/content/early//ASN.2020 794386 Performed By: #### 2 4320-2 #### RONAL Alvarez (59790) [facility] () [address] [place] [address] Glucose [Mass/Vol] 84 mg/dL Normal 65-99 [facility] Comment on above: Performed By: #### 2 4321-2 #### RONAL Alvarez (29355) [facility] () [address] [place] [address] Potassium [Moles/Vol] 4.5 mmol/L Normal 3.4-5.1 [facility] Comment on above: Performed By: #### 2 4321-2 #### RONAL Alvarez (13675) [facility] () [address] [place] [address] Sodium [Moles/Vol] 142 mmol/L Normal 133-145 [facility] Comment on above: Performed By: #### 2 4321-2 #### RONAL Alvarez (70314) [facility] () [address] [place] [address] Urea nitrogen [Mass/Vol] 18 mg/dL Normal 8-[address] [facility] Comment on above: Performed By: #### 2 4321-2 #### RONAL Alvarez (20053) [facility] () [address] [place] [address] CBC W Auto Differential pane l (Bld)on 03-21-2024 Basophils (Bld) [#/Vol] 0.07 x10*3/uL Normal 0.00-0.[address] [facility] Comment on above: Performed By: #### 5 7021-8 #### RONAL Alvarez (24090) [facility] () [address] [place] [address] Basophils/100 WBC (Bld) 0.7 % Normal 0.0-2.0 [facility] Comment on above: Performed By: #### 5 7021-8 #### RONAL Alvarez (87463) [facility] () [address] [place] [address] Eosinophils (Bld) [#/Vol] 0.12 x10*3/uL Normal 0.00-0.[address] [facility] Comment on above: Performed By: #### 5 7021-8 #### RONAL Alavrez (46706) [facility] () [address] [place] [address] Eosinophils/100 WBC (Bld) 1.2 % Normal 0.0-6.[address] [facility] Comment on above: Performed By: #### 5 7021-8 #### RONAL Alvarez (53193) [facility] () [address] [place] [address] Erythrocyte distribution width (RBC) [Ratio] 12.3 % Normal 11.5-14.[address] [facility] Comment on above: Performed By: #### 5 7021-8 #### RONAL Alvarez (65702) [facility] () [address] [place] [address] Hematocrit (Bld) [Volume fraction] 41.4 % Normal 36.0-46.[address] [facility] Comment on above: Performed By: #### 5 7021-8 #### RONAL FISHER T (29893) [facility] () [address] [place] [address] Hemoglobin (Bld) [Mass/Vol] 13.5 g/dL Normal 12.0-16.[address] [facility] Comment on above: Performed By: #### 5 7021-8 #### RONAL Alvarez (11385) [facility] () [address] [place] [address] Immature granulocytes (Bld) [#/Vol] 0.03 x10*3/uL Normal 0.00-0.[address] [facility] Comment on above: Performed By: #### 5 7021-8 #### RONAL Alvarez (12109) [facility] () [address] [place] [address] Immature granulocytes/100 WBC (Bld) 0.3 % Normal 0.0-0.[address] [facility] Comment on above: Result Comment: Анна ture Granulocyte Count (IG) includes promyelocytes, myelocytes and metamyelocytes but does not include bands. Percent differential counts (%) should be interpreted in the context of the absolute cell counts (cells/UL). Performed By: #### 5 7021-8 #### RONAL Alvarez (53510) [facility] () [address] [place] [address] Lymphocytes (Bld) [#/Vol] 2.15 x10*3/uL Normal 1.20-4.[address] [facility] Comment on above: Performed By: #### 5 7021-8 #### RONAL FISHER T (27246) [facility] () [address] [place] [address] Lymphocytes/100 WBC (Bld) 21.7 % Normal 13.0-44.[address] [facility] Comment on above: Performed By: #### 5 7021-8 #### ORNAL Alvarez ([id number]) [facility] () [address] [place] [address] MCH (RBC) [Entitic mass] 29.3 pg Normal 26.0-34.[address] [facility] Comment on above: Performed By: #### 5 7021-8 #### RONAL Alvarez (53074) [facility] () [address] [place] [address] MCHC (RBC) [Mass/Vol] 32.6 g/dL Normal 32.0-36.0 [facility] Comment on above: Performed By: #### 5 7021-8 #### RONAL Alvarez (72187) [facility] () [address] [place] [address] MCV (RBC) [Entitic vol] 90 fL Normal 80-100 [facility] Comment on above: Performed By: #### 5 7021-8 #### RONAL Alvarez (48577) [facility] () [address] [place] [address] Monocytes (Bld) [#/Vol] 0.76 x10*3/uL Normal 0.10-1.[address] [facility] Comment on above: Performed By: #### 5 7021-8 #### RONAL Alvarez (76157) [facility] () [address] [place] [address] Monocytes/100 WBC (Bld) 7.7 % Normal 2.0-10.0 [facility] Comment on above: Performed By: #### 5 7021-8 #### RONAL Alvarez (97892) [facility] () [address] [place] [address] Neutrophils (Bld) [#/Vol] 6.78 x10*3/uL Normal 1.20-7.[address] [facility] Comment on above: Result Comment: Perc ent differential counts (%) should be interpreted in the context of the absolute cell counts (cells/uL). Performed By: #### 5 7021-8 #### RONAL Alvarez (65159) [facility] () [address] [place] [address] Neutrophils/100 WBC (Bld) 68.4 % Normal 40.0-80.[address] [facility] Comment on above: Performed By: #### 5 7021-8 #### RONAL Alvarez (31692) [facility] () [address] [place] [address] Nucleated RBC/100 WBC (Bld) [Ratio] 0.0 /100 WBCs Normal 0.0-0.[address] [facility] Comment on above: Performed By: #### 5 7021-8 #### RONAL Alvarez (04758) [facility] () [address] [place] [address] Platelets (Bld) [#/Vol] 439 x10*3/uL Normal 150-[address] [facility] Comment on above: Performed By: #### 5 7021-8 #### RONAL Alvarez (38289) [facility] () [address] [place] [address] RBC (Bld) [#/Vol] 4.60 x10*6/uL Normal 4.00-5.20 [facility] Comment on above: Performed By: #### 5 7021-8 #### RONAL Alvarez (20246) [facility] () [address] [place] [address] WBC (Bld) [#/Vol] 9.9 x10*3/uL Normal 4.4-11.3 [facility] Comment on above: Performed By: #### 5 7021-8 #### RONAL Alvarez (73356) [facility] () [address] [place] [address] Staphylococcus aureus.methic illin resistant isolateon 03-21-2024 MRSA isol Org specific cx Ql (Nose) Test: Staphylococcus aureus/MRSA colonization, Culture Specimen Source: Anterior Nares Specimen Type: Swab Specimen Date: 03/21/2024 1412 Result Date: 03/23/2024 0747 Result Status: Final result Abnormal: No Resulting Lab: [facility] [id number] [place] [address] CULTURE No Staphylococcus aureus isolated Normal [facility] Comment on above: Performed By: #### 5 2969-3 #### CONNOR Grant ([id number]) [facility] ([facility]) [id number] [place] [address] Urinalysis complete W Reflex Culture panel (U)on 03-21-2024 Appearance (U) Clear Normal Clear [facility] Comment on above: Performed By: #### 5 8077-9 #### RONAL Alvarez (49182) [facility] () [address] [place] [address] Bilirubin (U) [Mass/Vol] Negative Normal NEGATIVE [facility] Comment on above: Performed By: #### 5 8077-9 #### RONAL Alvarez (72318) [facility] () [address] [place] [address] Color (U) Light-Yellow Normal Light-Yello w, Yellow, Dark-Yellow [facility] Comment on above: Performed By: #### 5 8077-9 #### RONAL Alvarez (28069) [facility] () [address] [place] [address] Glucose Auto test strip (U) [Mass/Vol] Normal Normal Normal [facility] Comment on above: Performed By: #### 5 8077-9 #### RONAL Alvarez (97020) [facility] () [address] [place] [address] Ketones (U) [Mass/Vol] Negative Normal NEGATIVE [facility] Comment on above: Performed By: #### 5 8077-9 #### RONAL Alvarez (01189) [facility] () [address] [place] [address] Leukocyte esterase Auto test strip Ql (U) Negative Normal NEGATIVE [facility] Comment on above: Performed By: #### 5 8077-9 #### RONAL Alvarez (88715) [facility] () [address] [place] [address] Nitrite Auto test strip Ql (U) Negative Normal NEGATIVE [facility] Comment on above: Performed By: #### 5 8077-9 #### RONAL Alvarez (33097) [facility] () [address] [place] [address] pH (U) 5.5 [pH] Normal 5.0, 5.5, 6.0, 6.5, 7.0, 7.5, 8.[address] [facility] Comment on above: Performed By: #### 5 8077-9 #### RONAL Alvarez (28649) [facility] () [address] [place] [address] Protein (U) [Mass/Vol] Negative Normal NEGAT AMANDA, 10 (TRACE), 20 (TRACE) [facility] Comment on above: Performed By: #### 5 8077-9 #### RONAL Alvarez (62866) [facility] () [address] [place] [address] RBC (U) [#/Vol] Negative Normal NEGATIVE [facility] Comment on above: Performed By: #### 5 8077-9 #### RONAL Alvarez ([id number]) [facility] () [address] [place] [address] Specific gravity (U) [Rel density] 1.016 Normal 1.005-1.[address] [facility] Comment on above: Performed By: #### 5 8077-9 #### RONAL Alvarez (92527) [facility] () [address] [place] [address] Urobilinogen (U) [Mass/Vol] Normal Normal Normal [facility] Comment on above: Performed By: #### [id number] #### RONAL Alvarez ([id number]) [facility] ([facility]) [id number] [place] [address] Absolute lymphocyte countOrd ered By: Karlie Johnson on 12-16-2023 Lymphocytes Auto (Unsp spec) [#/Vol] 2.10 10*3/uL 0.83-4.51 [facility] Automated lymphocyte count a s percentage of total leukocytesOrdered By: Karlie Johnson on 12-16-2023 Lymphocytes/100 WBC Auto (Unsp spec) 20.1 % 19-41 [facility] Basophil percentageOrdered B y: Karlie Johnson on 12-16-2023 Basophils/100 WBC (Bld) 0.9 % 0-1 [facility] Chloride [Moles/Vol] 107 mmol/L 98-107 [facility] Eosinophils/100 WBC (Bld) 3.5 % 0-5 [facility] Glucose [Mass/Vol] 95 mg/dL 74-106 [facility] Hemoglobin (Bld) [Mass/Vol] 12.4 g/dL 12.0-15.0 [facility] Monocytes/100 WBC (Bld) 8.6 % 0-10 [facility] Neutrophils (Bld) [#/Vol] 6.9 10*3/uL 2.0-7.7 [facility] Neutrophils/100 WBC (Bld) 66.1 % 47-70 [facility] Potassium [Moles/Vol] 3.6 mmol/L 3.5-5.1 [facility] Sodium [Moles/Vol] 141 mmol/L 136-145 [facility] WBC (Bld) [#/Vol] 10.4 10*3/uL 4.4-11.0 [facility] Determination of erythrocyte mean corpuscular volume (MCV)Ordered By: Karlie Johnson on 12-16-2023 MCV (RBC) [Entitic vol] 90.7 fL 81-99 [facility] Erythrocyte distribution wid th ratioOrdered By: Karlie Johnson on 12-16-2023 Erythrocyte distribution width (RBC) [Ratio] 12.6 % 11.6-14.6 [facility] Erythrocyte distribution wid th standard deviationOrdered By: Karlie Johnson on 12-16-2023 Erythrocyte distribution width (RBC) [Entitic vol] 41.3 fL 35.1-43.9 [facility] Hematocrit Auto (Bld) [Volum e fraction]Ordered By: Karlie Johnson on 12-16-2023 Hematocrit (Bld) [Volume fraction] 38.9 % 37-47 [facility] Immature granulocytes/100 WB C Auto (Bld)Ordered By: Karlie Johnson on 12-16-2023 Immature granulocytes/100 WBC (Bld) 0.800 % 0.0-0.9 [facility] Comment on above: IG% - Immature Granu locytes (promyelocytes, myelocytes and metamyelocytes) > 1% indicates that a LEFT SHIFT is Present. Laboratory - Chemistry and C hemistry - challengeOrdered By: Karlie Johnson on 12-16-2023 CO2 [Moles/Vol] 29.0 mmol/L 21.0-32.0 [facility] Magnesium [Mass/Vol] 2.5 mg/dL 1.6-2.6 [facility] Urea nitrogen/Creatinine [Mass ratio] 17.3 mg/mg 10-20 [facility] Laboratory - Hematology and Cell countsOrdered By: Karlie Johnson on 12-16-2023 MCH (RBC) [Entitic mass] 28.9 pg 27.0-32.0 [facility] MCHC (RBC) [Mass/Vol] 31.9 g/dL 32-36 [facility] Nucleated RBC/100 WBC (Bld) [Ratio] 0 % 0-5 [facility] Platelet mean volume (Bld) [Entitic vol] 9.8 fL 6.2-12.0 [facility] Platelets (Bld) [#/Vol] 453 10*3/uL 150-450 [facility] No Panel InformationOrdered By: Karlie Johnson on 12-16-2023 Estimated GFR (MDRD) Amer 85 mL/min >60 [facility] Comment on above: GFR Calc Estimated GFR (MDRD) Non-Af Amer 70 mL/min >60 [facility] Comment on above: Non- GFR Calc Free Triiodothyronine (T3) pg/dL 2.3 pg/mL 2.18-3.98 [facility] RBC Auto (Bld) [#/Vol]Ordere d By: Karlie Johnson on 12-16-2023 RBC (Bld) [#/Vol] 4.29 10*6/uL 4.2-5.4 [facility] Serum or plasma calcium kyree urement (mass/volume)Ordered By: Karlie Johnson on 12-16-2023 Calcium [Mass/Vol] 9.3 mg/dL 8.5-10.1 [facility] Serum or plasma creatinine m easurement (mass/volume)Ordered By: Karlie Johnson on 12-16-2023 Creatinine [Mass/Vol] 0.87 mg/dL 0.55-1.02 [facility] Comment on above: The validity of the calculated GFR & GFRAA in patients over 70 years has not been determined. Clinical correlation is essential. Serum or plasma thyroid stim ulating hormone (TSH) measurement (units/volume)Ordered By: Karlie Johnson on 12-16-2023 TSH Qn 1.76 uIU/mL 0.358-3.74 [facility] Serum or plasma urea nitroge n measurement (mass/volume)Ordered By: Karlie Johnson on 12-16-2023 Urea nitrogen [Mass/Vol] 15 mg/dL 7-18 [facility] Thin prep Papanicolaou smear with manual screeningOrdered By: Karlie Johnson on 12-16-2023 Thin prep Papanicolaou smear with manual screening 5 5-15 [facility] Thin prep Papanicolaou smear with manual screening 1.10 ng/dL 0.76-1.46 [facility] Laboratory - Microbiology an d Antimicrobial susceptibilityon 10-06-2023 SARS-CoV-2 (COVID-19) RNA NEIL+probe Ql (Unsp spec) Detected [facility] No Panel Informationon 10-06 Influenza Types A,B Rapid (Clinic) Not detected [facility] Absolute lymphocyte countOrd ered By: Yennifer Johnson on 09-27-2023 Lymphocytes Auto (Unsp spec) [#/Vol] 1.81 10*3/uL 0.83-4.51 [facility] Basophil percentageOrdered B y: Yennifer Johnson on 09-27-2023 Basophils/100 WBC (Bld) 0.6 % 0-1 [facility] Chloride [Moles/Vol] 106 mmol/L 98-107 [facility] Eosinophils/100 WBC (Bld) 1.4 % 0-5 [facility] Glucose [Mass/Vol] 90 mg/dL 74-106 [facility] Neutrophils (Bld) [#/Vol] 8.1 10*3/uL 2.0-7.7 [facility] Neutrophils/100 WBC (Bld) 73.3 % 47-70 [facility] Potassium [Moles/Vol] 3.8 mmol/L 3.5-5.1 [facility] Sodium [Moles/Vol] 139 mmol/L 136-145 [facility] WBC (Bld) [#/Vol] 11.0 10*3/uL 4.4-11.0 [facility] Blood erythrocytes count (nu mber/volume)Ordered By: Yennifer Johnson on 09-27-2023 RBC (Bld) [#/Vol] 4.37 10*6/uL 4.2-5.4 [facility] Blood hemoglobin measurement (mass/volume)Ordered By: Yennifer Johnson on 09-27-2023 Hemoglobin (Bld) [Mass/Vol] 12.9 g/dL 12.0-15.0 [facility] Blood lymphocytes/100 leukoc ytesOrdered By: Yennifer Johnson on 09-27-2023 Lymphocytes/100 WBC (Bld) 16.5 % 19-41 [facility] Blood monocytes/100 leukocyt esOrdered By: Yennifer Johnson on 09-27-2023 Monocytes/100 WBC (Bld) 7.7 % 0-10 [facility] Blood platelet mean volumeOr dered By: Yennifer Johnson on 09-27-2023 Platelet mean volume (Bld) [Entitic vol] 10.3 fL 6.2-12.0 [facility] Determination of erythrocyte mean corpuscular volume (MCV)Ordered By: Yennifer Johnson on 09-27-2023 MCV (RBC) [Entitic vol] 90.4 fL 81-99 [facility] Hematocrit Auto (Bld) [Volum e fraction]Ordered By: Yennifer Johnson on 09-27-2023 Hematocrit (Bld) [Volume fraction] 39.5 % 37-47 [facility] Laboratory - Chemistry and C hemistry - challengeOrdered By: Yennifer Johnson on 09-27-2023 CO2 [Moles/Vol] 24.0 mmol/L 21.0-32.0 [facility] Urea nitrogen/Creatinine [Mass ratio] 20.6 mg/mg 10-20 [facility] Laboratory - Hematology and Cell countsOrdered By: Yennifer Johnson on 09-27-2023 Erythrocyte distribution width (RBC) [Entitic vol] 39.6 fL 35.1-43.9 [facility] Erythrocyte distribution width (RBC) [Ratio] 11.9 % 11.6-14.6 [facility] Immature granulocytes/100 WBC (Bld) 0.500 % 0.0-0.9 [facility] Comment on above: IG% - Immature Granu locytes (promyelocytes, myelocytes and metamyelocytes) > 1% indicates that a LEFT SHIFT is Present. MCH (RBC) [Entitic mass] 29.5 pg 27.0-32.0 [facility] Nucleated RBC/100 WBC (Bld) [Ratio] 0 % 0-5 [facility] MCHC Auto (RBC) [Mass/Vol]Or dered By: Yennifer Johnson on 09-27-2023 MCHC (RBC) [Mass/Vol] 32.7 g/dL 32-36 [facility] No Panel InformationOrdered By: Yennifer Johnson on 09-27-2023 Estimated GFR (MDRD) Amer 97 mL/min >60 [facility] Comment on above: GFR Calc Estimated GFR (MDRD) Non-Af Amer 80 mL/min >60 [facility] Comment on above: Non- GFR Calc Platelets bldOrdered By: Lokesh Johnson on 09-27-2023 Platelets (Bld) [#/Vol] 452 10*3/uL 150-450 [facility] Serum or plasma calcium kyree urement (mass/volume)Ordered By: Yennifer Johnson on 09-27-2023 Calcium [Mass/Vol] 9.4 mg/dL 8.5-10.1 [facility] Serum or plasma creatinine m easurement (mass/volume)Ordered By: Yennifer Johnson on 09-27-2023 Creatinine [Mass/Vol] 0.78 mg/dL 0.55-1.02 [facility] Comment on above: The validity of the calculated GFR & GFRAA in patients over 70 years has not been determined. Clinical correlation is essential. Serum or plasma urea nitroge n measurement (mass/volume)Ordered By: Yennifer Johnson on 09-27-2023 Urea nitrogen [Mass/Vol] 16 mg/dL 7-18 [facility] Thin prep Papanicolaou smear with manual screeningOrdered By: Yennifer Johnson on 09-27-2023 Thin prep Papanicolaou smear with manual screening 9 5-15 [facility] Basophil percentageOrdered B y: Karlie Johnson on 07-03-2023 Bilirubin [Mass/Vol] 0.40 mg/dL 0.20-1.00 [facility] Comment on above: For patients on eltr ombopag therapy, use of Dimension [place] TBIL is not recommended. Cholesterol [Mass/Vol] 153 mg/dL <200 [facility] Comment on above: <200 mg/dL Desirable 200-240 mg/dL Borderline >240 mg/dL High Risk Protein [Mass/Vol] 7.6 g/dL 6.4-8.2 [facility] Triglyceride [Mass/Vol] 81 mg/dL <199 [facility] Comment on above: The drugs N-Acetylcy steine and Metamizole may falsely depress this assay.Serum Triglycerides Reference Interval Normal <150 mg/dL Borderline high 150 - 199 mg/dL High 200 - 499 mg/dL Very High > or = 500 mg/dL Direct bilirubinOrdered By: Karlie Johnson on 07-03-2023 Bilirubin.direct [Mass/Vol] 0.14 mg/dL 0.00-0.30 [facility] Laboratory - Chemistry and C hemistry - challengeOrdered By: Karlie Johnson on 07-03-2023 ALP [Catalytic activity/Vol] 79 U/L 45-117 [facility] ALT [Catalytic activity/Vol] 20 U/L 13-56 [facility] Globulin (S) [Mass/Vol] 3.8 g/dL 2.2-4.2 [facility] Serum or plasma albumin kyree urement (mass/volume)Ordered By: Karlie Johnson on 07-03-2023 Albumin [Mass/Vol] 3.8 g/dL 3.2-5.0 [facility] Serum or plasma cholesterol in HDL measurement (mass/volume)Ordered By: Karlie Johnson on 07-03-2023 Cholesterol in HDL [Mass/Vol] 53 mg/dL >40 [facility] Comment on above: The drugs N-Acetylcy steine and Metamizole may falsely depress this assay. Reference Range HDL <40 mg/dL Low HDL Cholesterol HDL >or= 60 mg/dL High HDL Cholesterol Serum or plasma cholesterol in VLDL measurement (mass/volume)Ordered By: Karlie Johnson on 07-03-2023 Cholesterol in VLDL [Mass/Vol] 16 mg/dL 5-40 [facility] Serum or plasma low density lipoprotein (LDL) cholesterol measurement (mass/volume)Ordered By: Karlie Johnson on 07-03-2023 Cholesterol in LDL [Mass/Vol] 84 mg/dL 0-130 [facility] Thin prep Papanicolaou smear with manual screeningOrdered By: Karlie Johnson on 07-03-2023 Thin prep Papanicolaou smear with manual screening 15 U/L 15-37 [facility] Basophil percentageOrdered B y: Dr. Lopez on 03-16-2023 Bilirubin [Mass/Vol] 0.30 mg/dL 0.20-1.00 [facility] Comment on above: For patients on eltr ombopag therapy, use of [place] TBIL is not recommended. Cholesterol [Mass/Vol] 179 mg/dL <200 [facility] Comment on above: <200 mg/dL Desirable 200-240 mg/dL Borderline >240 mg/dL High Risk Protein [Mass/Vol] 7.8 g/dL 6.4-8.2 [facility] Triglyceride [Mass/Vol] 62 mg/dL <199 [facility] Comment on above: The drugs N-Acetylcy steine and Metamizole may falsely depress this assay.Serum Triglycerides Reference Interval Normal <150 mg/dL Borderline high 150 - 199 mg/dL High 200 - 499 mg/dL Very High > or = 500 mg/dL Direct bilirubinOrdered By: Dr. Lopez on 03-16-2023 Bilirubin.direct [Mass/Vol] 0.12 mg/dL 0.00-0.30 [facility] Laboratory - Chemistry and C hemistry - challengeOrdered By: Dr. Lopez on 03-16-2023 ALP [Catalytic activity/Vol] 88 U/L 45-117 [facility] ALT [Catalytic activity/Vol] 22 U/L 13-56 [facility] Globulin (S) [Mass/Vol] 4.0 g/dL 2.2-4.2 [facility] Serum or plasma albumin kyree urement (mass/volume)Ordered By: Dr. Lopez on 03-16-2023 Albumin [Mass/Vol] 3.8 g/dL 3.2-5.0 [facility] Serum or plasma cholesterol in HDL measurement (mass/volume)Ordered By: Dr. Lopez on 03-16-2023 Cholesterol in HDL [Mass/Vol] 66 mg/dL >40 [facility] Comment on above: The drugs N-Acetylcy steine and Metamizole may falsely depress this assay. Reference Range HDL <40 mg/dL Low HDL Cholesterol HDL >or= 60 mg/dL High HDL Cholesterol Serum or plasma cholesterol in VLDL measurement (mass/volume)Ordered By: Dr. Lopez on 03-16-2023 Cholesterol in VLDL [Mass/Vol] 12 mg/dL 5-40 [facility] Serum or plasma low density lipoprotein (LDL) cholesterol measurement (mass/volume)Ordered By: Dr. Lopez on 03-16-2023 Cholesterol in LDL [Mass/Vol] 101 mg/dL 0-130 [facility] Thin prep Papanicolaou smear with manual screeningOrdered By: Dr. Lopez on 03-16-2023 Thin prep Papanicolaou smear with manual screening 17 U/L 15-37 [facility] Basophil percentageOrdered B y: Dr. Lopez on 10-31-2022 Bilirubin [Mass/Vol] 0.50 mg/dL 0.20-1.00 [facility] Comment on above: For patients on eltr ombopag therapy, use of [place] TBIL is not recommended. Cholesterol [Mass/Vol] 176 mg/dL <200 [facility] Comment on above: <200 mg/dL Desirable 200-240 mg/dL Borderline >240 mg/dL High Risk Protein [Mass/Vol] 7.6 g/dL 6.4-8.2 [facility] Triglyceride [Mass/Vol] 88 mg/dL <199 [facility] Comment on above: The drugs N-Acetylcy steine and Metamizole may falsely depress this assay.Serum Triglycerides Reference Interval Normal <150 mg/dL Borderline high 150 - 199 mg/dL High 200 - 499 mg/dL Very High > or = 500 mg/dL Direct bilirubinOrdered By: Dr. Lopez on 10-31-2022 Bilirubin.direct [Mass/Vol] 0.10 mg/dL 0.00-0.30 [facility] Laboratory - Chemistry and C hemistry - challengeOrdered By: Dr. Lopez on 10-31-2022 ALP [Catalytic activity/Vol] 82 U/L 45-117 [facility] ALT [Catalytic activity/Vol] 22 U/L 13-56 [facility] Globulin (S) [Mass/Vol] 3.7 g/dL 2.2-4.2 [facility] Serum or plasma albumin kyree urement (mass/volume)Ordered By: Dr. Lopez on 10-31-2022 Albumin [Mass/Vol] 3.9 g/dL 3.2-5.0 [facility] Serum or plasma cholesterol in HDL measurement (mass/volume)Ordered By: Dr. Lopez on 10-31-2022 Cholesterol in HDL [Mass/Vol] 68 mg/dL >40 [facility] Comment on above: The drugs N-Acetylcy steine and Metamizole may falsely depress this assay. Reference Range HDL <40 mg/dL Low HDL Cholesterol HDL >or= 60 mg/dL High HDL Cholesterol Serum or plasma cholesterol in VLDL measurement (mass/volume)Ordered By: Dr. Lopez on 10-31-2022 Cholesterol in VLDL [Mass/Vol] 18 mg/dL 5-40 [facility] Serum or plasma low density lipoprotein (LDL) cholesterol measurement (mass/volume)Ordered By: Dr. Lopez on 10-31-2022 Cholesterol in LDL [Mass/Vol] 90 mg/dL 0-130 [facility] Thin prep Papanicolaou smear with manual screeningOrdered By: Dr. Lopez on 10-31-2022 Thin prep Papanicolaou smear with manual screening 12 U/L 15-37 [facility] Absolute lymphocyte counton 06-24-2022 Lymphocytes Auto (Unsp spec) [#/Vol] 2.61 10*3/uL 0.83-4.51 [facility] Work Phone: Basophil percentageon 2021 Basophils/100 WBC (Bld) 0.7 % 0-1 [facility] Work Phone: Chloride [Moles/Vol] 107 mmol/L 98-107 [facility] Work Phone: Eosinophils/100 WBC (Bld) 2.0 % 0-5 [facility] Work Phone: Glucose [Mass/Vol] 81 mg/dL 74-106 [facility] Work Phone: Neutrophils (Bld) [#/Vol] 6.7 10*3/uL 2.0-7.7 [facility] Work Phone: Neutrophils/100 WBC (Bld) 62.6 % 47-70 [facility] Work Phone: Potassium [Moles/Vol] 3.5 mmol/L 3.5-5.1 [facility] Work Phone: Sodium [Moles/Vol] 142 mmol/L 136-145 [facility] Work Phone: WBC (Bld) [#/Vol] 10.8 10*3/uL 4.4-11.0 [facility] Work Phone: Blood erythrocytes count (nu mber/volume)on 06-24-2022 RBC (Bld) [#/Vol] 4.27 10*6/uL 4.2-5.4 [facility] Work Phone: Blood hemoglobin measurement (mass/volume)on 06-24-2022 Hemoglobin (Bld) [Mass/Vol] 13.0 g/dL 12.0-15.0 [facility] Work Phone: Blood lymphocytes/100 leukoc yteson 06-24-2022 Lymphocytes/100 WBC (Bld) 24.3 % 19-41 [facility] Work Phone: Blood monocytes/100 leukocyt eson 06-24-2022 Monocytes/100 WBC (Bld) 9.7 % 0-10 [facility] Work Phone: Blood platelet mean volumeon 06-24-2022 Platelet mean volume (Bld) [Entitic vol] 10.1 fL 6.2-12.0 [facility] Work Phone: Determination of erythrocyte mean corpuscular volume (MCV)on 06-24-2022 MCV (RBC) [Entitic vol] 92.3 fL 81-99 [facility] Work Phone: Hematocrit Auto (Bld) [Volum e fraction]on 06-24-2022 Hematocrit (Bld) [Volume fraction] 39.4 % 37-47 [facility] Work Phone: Laboratory - Chemistry and C hemistry - challengeon 06-24-2022 CO2 [Moles/Vol] 31.0 mmol/L 21.0-32.0 [facility] Work Phone: [phone] Magnesium [Mass/Vol] 2.4 mg/dL 1.6-2.6 [facility] Work Phone: [phone] Urea nitrogen/Creatinine [Mass ratio] 18.8 mg/mg 10-20 [facility] Work Phone: Laboratory - Hematology and Cell countson 06-24-2022 Erythrocyte distribution width (RBC) [Entitic vol] 41.0 fL 35.1-43.9 [facility] Work Phone: [phone] Erythrocyte distribution width (RBC) [Ratio] 12.2 % 11.6-14.6 [facility] Work Phone: [phone] Immature granulocytes/100 WBC (Bld) 0.700 % 0.0-0.9 [facility] Work Phone: Comment on above: IG% - Immature Granu locytes (promyelocytes, myelocytes and metamyelocytes) > 1% indicates that a LEFT SHIFT is Present. MCH (RBC) [Entitic mass] 30.4 pg 27.0-32.0 [facility] Work Phone: [phone] Nucleated RBC/100 WBC (Bld) [Ratio] 0 % 0-5 [facility] Work Phone: [phone] MCHC Auto (RBC) [Mass/Vol]on 06-24-2022 MCHC (RBC) [Mass/Vol] 33.0 g/dL 32-36 [facility] Work Phone: No Panel Informationon 06-24 Estimated GFR (MDRD) Amer 81 mL/min >60 [facility] Work Phone: Comment on above: GFR Calc Estimated GFR (MDRD) Non-Af Amer 67 mL/min >60 [facility] Work Phone: [phone] Comment on above: Non- GFR Calc Platelets bldon 06-24-2022 Platelets (Bld) [#/Vol] 433 10*3/uL 150-450 [facility] Work Phone: [phone] Serum or plasma calcium kyree urement (mass/volume)on 06-24-2022 Calcium [Mass/Vol] 9.7 mg/dL 8.5-10.1 [facility] Work Phone: [phone] Serum or plasma creatinine m easurement (mass/volume)on 06-24-2022 Creatinine [Mass/Vol] 0.90 mg/dL 0.55-1.02 [facility] Work Phone: [phone] Comment on above: The validity of the calculated GFR & GFRAA in patients over 70 years has not been determined. Clinical correlation is essential. Serum or plasma urea nitroge n measurement (mass/volume)on 06-24-2022 Urea nitrogen [Mass/Vol] 17 mg/dL 7-18 [facility] Work Phone: [phone] Thin prep Papanicolaou smear with manual screeningon 06-24-2022 Thin prep Papanicolaou smear with manual screening 4 5-15 [facility] Work Phone: Laboratory - Chemistry and C hemistry - challengeon 06-09-2022 Cobalamin (Vitamin B12) [Mass/Vol] 362 pg/mL 211-911 [facility] Work Phone: Free T4 [Mass/Vol] 1.10 ng/dL 0.76-1.46 [facility] Work Phone: [phone] No Panel Informationon 06-09 Thyroid Stimulating Hormone (TSH) 1.73 uIU/mL 0.358-3.74 [facility] Work Phone: Basophil percentageon 2021 Bilirubin [Mass/Vol] 0.40 mg/dL 0.20-1.00 [facility] Work Phone: Comment on above: For patients on eltr ombopag therapy, use of Dimension [place] TBIL is not recommended. Cholesterol [Mass/Vol] 162 mg/dL <200 [facility] Work Phone: Comment on above: <200 mg/dL Desirable 200-240 mg/dL Borderline >240 mg/dL High Risk Protein [Mass/Vol] 7.2 g/dL 6.4-8.2 [facility] Work Phone: [phone] Triglyceride [Mass/Vol] 85 mg/dL <199 [facility] Work Phone: [phone] Comment on above: The drugs N-Acetylcy steine and Metamizole may falsely depress this assay.Serum Triglycerides Reference Interval Normal <150 mg/dL Borderline high 150 - 199 mg/dL High 200 - 499 mg/dL Very High > or = 500 mg/dL Direct bilirubinon Bilirubin.direct [Mass/Vol] 0.10 mg/dL 0.00-0.30 [facility] Work Phone: [phone] Laboratory - Chemistry and C hemistry - challengeon 05-15-2022 ALP [Catalytic activity/Vol] 80 U/L 45-117 [facility] Work Phone: [phone] ALT [Catalytic activity/Vol] 19 U/L 13-56 [facility] Work Phone: Globulin (S) [Mass/Vol] 3.6 g/dL 2.2-4.2 [facility] Work Phone: Serum or plasma albumin kyree urement (mass/volume)on 05-15-2022 Albumin [Mass/Vol] 3.6 g/dL 3.2-5.0 [facility] Work Phone: Serum or plasma cholesterol in HDL measurement (mass/volume)on 05-15-2022 Cholesterol in HDL [Mass/Vol] 56 mg/dL >40 [facility] Work Phone: Comment on above: The drugs N-Acetylcy steine and Metamizole may falsely depress this assay. Reference Range HDL <40 mg/dL Low HDL Cholesterol HDL >or= 60 mg/dL High HDL Cholesterol Serum or plasma cholesterol in VLDL measurement (mass/volume)on 05-15-2022 Cholesterol in VLDL [Mass/Vol] 17 mg/dL 5-40 [facility] Work Phone: Serum or plasma low density lipoprotein (LDL) cholesterol measurement (mass/volume)on 05-15-2022 Cholesterol in LDL [Mass/Vol] 89 mg/dL 0-130 [facility] Work Phone: Thin prep Papanicolaou smear with manual screeningon 05-15-2022 Thin prep Papanicolaou smear with manual screening 13 U/L 15-37 [facility] Work Phone: [facility] LEEANN CROCKETT ([id number]) 1960 F Date Time Provider Department 05/22[facility] your visit today, we recorded the following information about you: Sara Serrano LPN 05/22/2020 11:01 AM Signed Patient calling was in urgent care 05/19 and put on bactrim rx. Patient said she has been sick Wednesday and Wednesday lightheaded, nausea, almost going to ER. Patient stopped taking the bactrim rx not taken any today. Patient asking if rx needs changed? Patient uses [facility] for her pharmacy. Please advise Leeroy Toney [...] Status:Closed by LEEANN SAMSON LPN on 05/22/20 [facility] Amanda 05-19-2020 [facility] Office Visit ([facility]WSTR ) LEEANN CORCKETT ([id number]) 1960 F Date Time Provider Department 05/19/20 8:15 AM NUSRAT HOLLAND During your visit today, we recorded the following information about you: Temperature Pulse Respiration Blood pressure 98.6 degrees 102/minute 16/minute 108/82 Weight 74.1 kg Nusrat Holland APRN.[facility] 05/19/2020 8:46 AM Signed ASSESSMENT/PLAN: 1. [...] have confirmed and edited as necessary, the [facility] Review of Systems Constitutional: Negative for chills [...] detail warranting prompt ER evaluation. Nusrat Holland APRN.[employer] Referring Provider: SELF [200] Allergies As of [...] [N39.0] Dysuria [R30.0] Order(s):UA DIP, URINE (POC) [5412368] Order #: [id number]. #:[id number] URINE CULTURE [SQURCUL] Order #: [id number] sulfamethoxazole-trime thoprim (BACTRIM DS) 800-160 mg per [...] by NUSRAT HOLLAND CNP on 05/19/20 Normal [facility] PROGRESSon 05-19-2020 PROGRESS HNO ID: [id number] Author: Nusrat Holland Service: ? Author Type: [...] have confirmed and edited as necessary, the [facility] Review of Systems Constitutional: Negative for chills [...] detail warranting prompt ER evaluation. Nusrat Holland APRN.[employer] Normal [facility] Urine Cultureon 05-19-2020 Bacteria identified Cx Nom [...] F Ertapenem SUSCEPTIBLE <=0.5 F Critically abnormal [facility] Comment on above: Performed By: #### U RCUL #### [facility] [address] [address] Vital Signs Date Time Vital Sign Value Performing Clinician Facility 05-02-2025 09:01-0400 Body height 157.[address] Yennifer Johnson MD Work Phone: [facility] 05-02-2025 09:01-0400 Body mass index (BMI) [Ratio] 29 kg/m2 Dr. Yennifer Johnson MD Work Phone: [facility] 05-02-2025 09:01-0400 Body weight 71.[address] Yennifer Johnson MD Work Phone: [facility] 05-02-2025 09:01-0400 Diastolic blood pressure 68 mm[Hg] Dr. Yennifer Johnson MD Work Phone: [facility] 05-02-2025 09:01-0400 Heart rate 67 /min Dr. Yennifer Johnson MD Work Phone: [facility] 05-02-2025 09:01-0400 Respiratory rate 15 /min Dr. Yennifer Johnson MD Work Phone: [facility] 05-02-2025 09:01-0400 SaO2% (BldA) [Mass fraction] 97 % Dr. Yennifer Johnson MD Work Phone: [facility] 05-02-2025 09:01-0400 Systolic blood pressure 124 mm[Hg] Dr. Yennifer Johnson MD Work Phone: [facility] 04-26-2025 13:01-0400 Body height 157.[address] Yennifer Johnson MD Work Phone: [facility] 04-26-2025 13:01-0400 Body mass index (BMI) [Ratio] 28.7 kg/m2 Dr. Yennifer Johnson MD Work Phone: [facility] 04-26-2025 13:01-0400 Body weight 71.[address] Yennifer Johnson MD Work Phone: [facility] 04-26-2025 13:01-0400 Diastolic blood pressure 72 mm[Hg] Dr. Yennifer Johnson MD Work Phone: [facility] 04-26-2025 13:01-0400 Heart rate 82 /min Dr. Yennifer Johnson MD Work Phone: [facility] 04-26-2025 13:01-0400 Respiratory rate 18 /min Dr. Yennifer Johnson MD Work Phone: [facility] 04-26-2025 13:01-0400 Systolic blood pressure 118 mm[Hg] Dr. Yennifer Johnson MD Work Phone: [facility] 04-04-2024 12:06-0400 Body temperature 98.4 [degF] Tin West MD Work Phone: [facility] 04-04-2024 12:06-0400 Diastolic blood pressure 66 mm[Hg] Tin West MD Work Phone: [facility] 04-04-2024 12:06-0400 Respiratory rate 16 /min Tin West MD Work Phone: [facility] 04-04-2024 12:06-0400 SaO2% (BldA) [Mass fraction] 99 % Tin West MD Work Phone: [facility] 04-04-2024 12:06-0400 Systolic blood pressure 133 mm[Hg] Tin West MD Work Phone: [facility] 04-04-2024 03:27-0400 Body mass index (BMI) [Ratio] 32.5 kg/m2 Tin West MD Work Phone: [facility] 04-04-2024 03:27-0400 Body weight 80.6 kg Tin West MD Work Phone: [facility] 04-03-2024 12:15-0400 Heart rate 76 /min Tin West MD Work Phone: [facility] 12-16-2023 13:11-0500 Body height 157.[address] Yennifer Johnson Work Phone: [facility] 12-16-2023 13:11-0500 Body mass index (BMI) [Ratio] 29.2 kg/m2 Dr. Yennifer Johnson Work Phone: [facility] 12-16-2023 13:11-0500 Body weight 72.[address] Yennifer Johnson Work Phone: [facility] 12-16-2023 13:11-0500 Diastolic blood pressure 77 mm[Hg] Dr. Yennifer Johnson Work Phone: [facility] 12-16-2023 13:11-0500 Heart rate 73 /min Dr. Yennifer Johnson Work Phone: [facility] 12-16-2023 13:11-0500 Respiratory rate 18 /min Dr. Yennifer Johnson Work Phone: [facility] 12-16-2023 13:11-0500 SaO2% (BldA) [Mass fraction] 97 % Dr. Yennifer Johnson Work Phone: [facility] 12-16-2023 13:11-0500 Systolic blood pressure 123 mm[Hg] Dr. Yennifer Johnson Work Phone: [facility] 10-06-2023 11:20-0500 Body height 157.[address] Yennifer Johnson Work Phone: [facility] 10-06-2023 11:20-0500 Body mass index (BMI) [Ratio] 27.8 kg/m2 Dr. Yennifer Johnson Work Phone: [facility] 10-06-2023 11:20-0500 Body temperature 98.2 [degF] Dr. Yennifer Johnson Work Phone: [facility] 10-06-2023 11:20-0500 Body weight 68.[address] Yennifer Johnson Work Phone: [facility] 10-06-2023 11:20-0500 Diastolic blood pressure 63 mm[Hg] Dr. Yennifer Johnson Work Phone: [facility] 10-06-2023 11:20-0500 Heart rate 92 /min Dr. Yennifer Johnson Work Phone: [facility] 10-06-2023 11:20-0500 Respiratory rate 16 /min Dr. Yennifer Johnson Work Phone: [facility] 10-06-2023 11:20-0500 SaO2% (BldA) [Mass fraction] 96 % Dr. Yennifer Johnson Work Phone: [facility] 10-06-2023 11:20-0500 Systolic blood pressure 100 mm[Hg] Dr. Yennifer Johnson Work Phone: [facility] 09-27-2023 13:05-0500 Body mass index (BMI) [Ratio] 27.8 kg/m2 Dr. Yennifer Johnson Work Phone: [facility] 09-27-2023 13:05-0500 Body temperature 98.4 [degF] Dr. Yennifer Johnson Work Phone: [facility] 09-27-2023 13:05-0500 Body weight 71.[address] Yennifer Johnson Work Phone: [facility] 09-27-2023 13:05-0500 Diastolic blood pressure 80 mm[Hg] Dr. Yennifer Johnosn Work Phone: [facility] 09-27-2023 13:05-0500 Heart rate 77 /min Dr. Yennifer Johnson Work Phone: [facility] 09-27-2023 13:05-0500 Respiratory rate 16 /min Dr. Yennifer Johnson Work Phone: [facility] 09-27-2023 13:05-0500 SaO2% (BldA) [Mass fraction] 98 % Dr. Yennifer Johnson Work Phone: [facility] 09-27-2023 13:05-0500 Systolic blood pressure 120 mm[Hg] Dr. Yennifer Johnson Work Phone: [facility] 07-12-2023 09:13-0400 Body mass index (BMI) [Ratio] 27.4 kg/m2 Dr. Yennifer Johnson Work Phone: [facility] 07-12-2023 09:13-0400 Body weight 70.[address] Yennifer Johnson Work Phone: [facility] 07-12-2023 09:13-0400 Diastolic blood pressure 84 mm[Hg] Dr. Yennifer Johnson Work Phone: [facility] 07-12-2023 09:13-0400 Heart rate 69 /min Dr. Yennifer Johnson Work Phone: [facility] 07-12-2023 09:13-0400 Respiratory rate 18 /min Dr. Yennifer Johnson Work Phone: [facility] 07-12-2023 09:13-0400 SaO2% (BldA) [Mass fraction] 98 % Dr. Yennifer Johnson Work Phone: [facility] 07-12-2023 09:13-0400 Systolic blood pressure 129 mm[Hg] Dr. Yennifer Johnson Work Phone: [facility] 02-24-2023 13:25-0400 Body temperature 98.5 [degF] Dr. Yennifer Johnson Work Phone: [facility] 02-24-2023 13:25-0400 Diastolic blood pressure 77 mm[Hg] Dr. Yennifer Johnson Work Phone: [facility] 02-24-2023 13:25-0400 Heart rate 67 /min Dr. Yennifer Johnson Work Phone: [facility] 02-24-2023 13:25-0400 Respiratory rate 16 /min Dr. Yennifer Johnson Work Phone: [facility] 02-24-2023 13:25-0400 SaO2% (BldA) [Mass fraction] 99 % Dr. Yennifer Johnson Work Phone: [facility] 02-24-2023 13:25-0400 Systolic blood pressure 138 mm[Hg] Dr. Yennifer Johnson Work Phone: [facility] 02-24-2023 06:15-0400 Body height 160.[address] Yennifer Johnson Work Phone: [facility] 02-24-2023 06:15-0400 Body mass index (BMI) [Ratio] 28 kg/m2 Dr. Yennifer Johnson Work Phone: [facility] 02-24-2023 06:15-0400 Body weight [address] Yennifer Johnson Work Phone: [facility] 07-27-2022 13:39-0400 Body height 160.[address] Yennifer Johnson Work Phone: [facility] 07-27-2022 13:39-0400 Body mass index (BMI) [Ratio] 28.7 kg/m2 Dr. Yennifer Johnson Work Phone: [facility] 07-27-2022 13:39-0400 Body temperature 97.5 [degF] Dr. Yennifer Johnson Work Phone: [facility] 07-27-2022 13:39-0400 Body weight 73.[address] Yennifer Johnson Work Phone: [facility] 07-27-2022 13:39-0400 Diastolic blood pressure 80 mm[Hg] Dr. Yennifer Johnson Work Phone: [facility] 07-27-2022 13:39-0400 Heart rate 83 /min Dr. Yennifer Johnson Work Phone: [facility] 07-27-2022 13:39-0400 Respiratory rate 14 /min Dr. Yennifer Johnson Work Phone: [facility] 07-27-2022 13:39-0400 SaO2% (BldA) [Mass fraction] 98 % Dr. Yennifer Johnson Work Phone: [facility] 07-27-2022 13:39-0400 Systolic blood pressure 130 mm[Hg] Dr. Yennifer Johnson Work Phone: [facility] 07-10-2022 10:57-0400 Body mass index (BMI) [Ratio] 28.7 kg/m2 Dr. Yennifer Johnson Work Phone: [facility] Work Phone: 07-10-2022 10:57-0400 Body temperature 97.2 [degF] Dr. Yennifer Johnson Work Phone: [facility] Work Phone: 07-10-2022 10:57-0400 Body weight 73.[address] Yennifer Johnson Work Phone: [facility] Work Phone: 07-10-2022 10:57-0400 Diastolic blood pressure 80 mm[Hg] Dr. Yennifer Johnson Work Phone: [facility] Work Phone: 07-10-2022 10:57-0400 Heart rate 71 /min Dr. Yennifer Johnson Work Phone: [facility] Work Phone: 07-10-2022 10:57-0400 Respiratory rate 16 /min Dr. Yennifer Johnson Work Phone: [facility] Work Phone: 07-10-2022 10:57-0400 SaO2% (BldA) [Mass fraction] 98 % Dr. Yennifer Johnson Work Phone: [facility] Work Phone: 07-10-2022 10:57-0400 Systolic blood pressure 122 mm[Hg] Dr. Yennifer Johnson Work Phone: [facility] Work Phone: 07-01-2022 08:03-0400 Body mass index (BMI) [Ratio] 28.8 kg/m2 Dr. Yennifer Johnson Work Phone: [facility] Work Phone: 07-01-2022 08:03-0400 Body temperature 98.3 [degF] Dr. Yennifer Johnson Work Phone: [facility] Work Phone: 07-01-2022 08:03-0400 Body weight 73.[address] Yennifer Johnson Work Phone: [facility] Work Phone: 07-01-2022 08:03-0400 Diastolic blood pressure 80 mm[Hg] Dr. Yennifer Johnson Work Phone: [facility] Work Phone: 07-01-2022 08:03-0400 Heart rate 85 /min Dr. Yennifer Johnson Work Phone: [facility] Work Phone: 07-01-2022 08:03-0400 Respiratory rate 18 /min Dr. Yennifer Johnson Work Phone: [facility] Work Phone: 07-01-2022 08:03-0400 SaO2% (BldA) [Mass fraction] 98 % Dr. Yennifer Johnson Work Phone: [facility] Work Phone: 07-01-2022 08:03-0400 Systolic blood pressure 130 mm[Hg] Dr. Yennifer Johnson Work Phone: [facility] Work Phone: 06-24-2022 14:49-0400 Body height 160.[address] Yennifer Johnson Work Phone: [facility] Work Phone: 06-24-2022 14:49-0400 Body mass index (BMI) [Ratio] 28.8 kg/m2 Dr. Yennifer Johnson Work Phone: [facility] Work Phone: 06-24-2022 14:49-0400 Body weight 73.[address] Yennifer Johnson Work Phone: [facility] Work Phone: 06-24-2022 14:49-0400 Diastolic blood pressure 79 mm[Hg] Dr. Ynenifer Johnson Work Phone: [facility] Work Phone: 06-24-2022 14:49-0400 Heart rate 82 /min Dr. Yennifer Johnson Work Phone: [facility] Work Phone: 06-24-2022 14:49-0400 Respiratory rate 18 /min Dr. Yennifer Johnson Work Phone: [facility] Work Phone: 06-24-2022 14:49-0400 SaO2% (BldA) [Mass fraction] 97 % Dr. Yennifer Johnson Work Phone: [facility] Work Phone: 06-24-2022 14:49-0400 Systolic blood pressure 131 mm[Hg] Dr. Yennifer Johnson Work Phone: [facility] Work Phone: 06-09-2022 14:55-0400 Body height 160.[address] Yennifer Johnson Work Phone: [facility] Work Phone: 06-09-2022 14:55-0400 Body mass index (BMI) [Ratio] 28.3 kg/m2 Dr. Yennifer Johnson Work Phone: [facility] Work Phone: 06-09-2022 14:55-0400 Body temperature 97.9 [degF] Dr. Yennifer Johnson Work Phone: [facility] Work Phone: 06-09-2022 14:55-0400 Body weight 72.[address] Yennifer Johnson Work Phone: [facility] Work Phone: 06-09-2022 14:55-0400 Diastolic blood pressure 82 mm[Hg] Dr. Yennifer Johnson Work Phone: [facility] Work Phone: 06-09-2022 14:55-0400 Heart rate 80 /min Dr. Yennifer Johnson Work Phone: [facility] Work Phone: 06-09-2022 14:55-0400 Respiratory rate 14 /min Dr. Yennifer Johnson Work Phone: [facility] Work Phone: 06-09-2022 14:55-0400 SaO2% (BldA) [Mass fraction] 98 % Dr. Yennifer Johnson Work Phone: [facility] Work Phone: 06-09-2022 14:55-0400 Systolic blood pressure 134 mm[Hg] Dr. Yennifer Johnson Work Phone: [facility] Work Phone: 05-04-2022 18:49-0400 Diastolic blood pressure 74 mm[Hg] [facility] Work Phone: 05-04-2022 18:49-0400 Heart rate 74 /min [facility] Work Phone: 05-04-2022 18:49-0400 Respiratory rate 16 /min [facility] Work Phone: 05-04-2022 18:49-0400 Systolic blood pressure 132 mm[Hg] [facility] Work Phone: 05-04-2022 16:54-0400 Body height 160.02 cm [facility] Work Phone: 05-04-2022 16:54-0400 Body mass index (BMI) [Ratio] 30.4 kg/m2 [facility] Work Phone: 05-04-2022 16:54-0400 Body temperature 97.1 [degF] [facility] Work Phone: 05-04-2022 16:54-0400 Body weight 77.9 kg [facility] Work Phone: 05-04-2022 16:54-0400 SaO2% (BldA) [Mass fraction] 100 % [facility] Work Phone: Encounters Encounter Date Encounter Type Care Provider Facility Start: 05-11-2025 ambulatory [facility] Facili ty:[facility] Start: 05-02-2025 End: 05-02-[address] Cy Peterson MD -[facility] Work Phone: Start: 05-02-2025 End: 05-02-[address] 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 Yennifer Johnson MD Work Phone: -[facility] Start: 04-26-2025 End: 04-26-2025 ambulatory [facility] Facility:[facility] Start: 03-24-2025 End: 03-24-[address] 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 Work Phone: Start: 03-24-2025 End: 03-24-2025 ambulatory [facility] Facility:[facility] Start: 10-24-2024 End: 10-24-2024 ambulatory [facility] Facility:[facility] Start: 10-21-2024 End: 10-21-2024 ambulatory Karlie Johnson NP Facility:[facility] Start: 08-07-2024 Encounter for genera l adult medical examination without abnormal findings [facility] Start: 07-10-2024 End: 07-10-2024 ambulatory [facility] Start: 07-10-2024 End: 07-10-2024 ambulatory [facility] Facility:[facility] Start: 06-15-2024 End: 06-15-2024 ambulatory Yennifer Johnson Facility:[facility] Start: 04-03-2024 End: 04-04-2024 Subsequent hospital visit by physician Tin West MD Work Phone: [facility] Comment on above: Arthritis of left kn ee (Primary Dx); Urinary tract infection without hematuria, site unspecified Start: 03-21-2024 End: 03-21-[address] [facility] Start: 03-21-2024 End: 03-21-2024 Encounter for other preprocedural examination [facility] Start: 03-21-2024 End: 03-21-2024 ambulatory [facility] Start: 03-21-2024 End: 03-21-2024 Encounter for other preprocedural examination [facility] Start: 03-17-2024 ambulatory [facility] Start: 02-25-[address] Odessa Johnson MD Work Phone: [facility] Comment on above: The patient complain [...] / Non-visit Dr. Roz Johnson Work Phone: [facility] Work Phone: Start: 01-17-2024 Non-patient / Non-visit Dr. Roz Johnson Work Phone: [facility] Start: 01-17-2024 End: 01-17-[address] Yennifer Johnson Work Phone: [facility] Work Phone: Start: 01-17-2024 End: 01-17-[address] [facility] Work Phone: Start: 12-27-2023 Non-patient / Non-visit Dr. Roz Johnson Work Phone: [facility] Work Phone: Start: 12-27-2023 Non-patient / Non-visit Dr. Roz Johnson Work Phone: [facility] Start: 12-27-2023 End: 12-27-[address] [facility]enn[facility] Work Phone: Start: 12-20-[address] Elder Johnson [facility] Work Phone: Start: 12-16-2023 End: 12-16-[address] Yennifer Johnson Work Phone: [facility] Work Phone: Start: 12-16-2023 End: 12-16-[address] Yennifer Johnson Work Phone: [facility] Work Phone: Start: 10-21-2023 End: 10-21-[address] Yennifer Johnson Work Phone: [facility] Work Phone: Start: 10-21-2023 End: 10-21-[address] Yennifer Johnson Work Phone: [facility]Outpatient [facility] Work Phone: Start: 10-06-2023 End: 10-06-[address] Yennifer Johnson Work Phone: [facility] Work Phone: Start: 09-27-2023 End: 09-27-2023 Encounter for general adult medical examination without abnormal findings Dr. Yennifer Johnson Work Phone: [facility] Start: 09-27-2023 End: 09-27-[address] Yennifer Johnson Work Phone: [facility] Work Phone: Start: 07-12-2023 End: 07-12-[address] Yennifer Johnson Work Phone: [facility] Work Phone: Start: 07-03-2023 End: 07-03-[address] Yennifer Johnson Work Phone: [facility] Work Phone: Start: 07-03-2023 End: 07-03-[address] Yennifer Johnson Work Phone: [facility]Labor[facility] Work Phone: Start: 05-05-2023 End: 05-05-[address] Yennifer Johnson Work Phone: [facility] Work Phone: Start: 05-05-2023 End: 05-05-[address] Yennifer Johnson Work Phone: [facility]Physical Therapy Work Phone: Start: 04-06-2023 End: 04-06-[address] Yennifer Johnson Work Phone: [facility] Work Phone: Start: 03-26-[address] Robert Johnson Work Phone: [facility] Start: 03-16-2023 End: 03-16-[address] Yennifer Johnson Work Phone: [facility] Work Phone: Start: 03-16-2023 End: 03-16-[address] Yennifer Johnson Work Phone: [facility] Start: 03-09-2023 End: 03-09-[address] Yennifer Johnson Work Phone: [facility] Start: 02-26-2023 End: 02-26-[address] Yennifer Johnson Work Phone: [facility] Start: 02-24-2023 Non-patient / Non-visit Dr. Roz Johnson Work Phone: [facility] Start: 02-24-2023 End: 02-24-2023 Admission to same day surgery center Dr. Yennifer Johnson Work Phone: [facility] Start: 02-24-2023 End: 02-24-[address] Yennifer Johnson Work Phone: [facility] Work Phone: Start: 02-04-2023 End: 02-04-[address] Yennifer Johnson Work Phone: [facility] Start: 02-02-2023 End: 02-02-[address] Yennifer Johnson Work Phone: [facility] Work Phone: Start: 02-02-2023 End: 02-02-[address] Yennifer Johnson Work Phone: [facility] Start: 01-19-2023 End: 01-19-[address] Yennifer Johnson Work Phone: [facility] Start: 10-31-2022 End: 10-31-[address] Yennifer Johnson Work Phone: [facility] Work Phone: Start: 10-31-2022 End: 10-31-[address] Yennifer Johnson Work Phone: [facility] Start: 09-28-2022 End: 09-28-[address] Yennifer Johnson Work Phone: [facility] Work Phone: Start: 09-28-2022 End: 09-28-[address] Yennifer Johnson Work Phone: [facility]Outpatient Breast [facility] Start: 08-06-2022 End: 08-06-[address] Yennifer Johnson Work Phone: [facility] Start: 07-28-2022 End: 07-28-[address] Yennifer Johnson Work Phone: [facility] Work Phone: Start: 07-28-2022 End: 07-28-[address] Yennifer Johnson Work Phone: [facility] Start: 07-27-2022 End: 07-27-[address] Yennifer Johnson Work Phone: [facility] Start: 07-10-2022 End: 07-10-[address] Yennifer Johnson Work Phone: [facility] Start: 09-07-[address] Elder Johnson Work Phone: [facility] Start: 07-01-2022 End: 07-01-2022 Encounter for general adult medical examination without abnormal findings Dr. Yennifer Johnson Work Phone: [facility] Start: 07-01-2022 End: 07-01-2022 Non-patient / Non-visit Dr. Yennifer Johnson Work Phone: [facility] Start: 06-24-2022 End: 06-24-[address] Yennifer Johnson Work Phone: [facility] Work Phone: Start: 06-24-2022 End: 06-24-[address] Yennifer Johnson Work Phone: [facility] Start: 06-09-2022 End: 06-09-[address] Yennifer Johnson Work Phone: [facility]-Laboratory, [facility] Start: 06-09-2022 End: 06-09-[address] Yennifer Johnson Work Phone: [facility] Start: 05-15-2022 End: 05-15-2022 Patient encounter procedure [facility] Start: 05-04-2022 End: 05-04-2022 Emergency department patient visit [facility] Start: 07-08-2021 Patient encounter status [facility] Start: 04-08-2021 Patient encounter status [facility] Procedures Date Procedure Procedure Detail Performing Clinician Start: 04-26-2025 Total iron binding c apacity measurement Dr. Yennifer Johnson MD Work Phone: Start: 04-04-2024 Urinalysis microscop ic panel - Urine Qualitative by Automated Keshawn Stevenson ACCOUNTANT PROPERTY-FORGE HEATER Work Phone: Start: 04-04-2024 Urnls dip stick/tabl et reagent auto microscopy Keshawn Stevenson ACCOUNTANT PROPERTY-FORGE HEATER Work Phone: Start: 04-04-2024 Radiologic exam ches t single view Keshawn Stevenson ACCOUNTANT PROPERTY-FORGE HEATER Work Phone: Start: 04-04-2024 Basic metabolic pane [...] Influenza vaccination Influenz a Vaccine (Season Ended) [facility] Start: 04-11-2024 End: 04-04-2025 Basic metabolic 2000 panel - Serum or Plasma Basic metabolic panel Lab Routine Arthritis of left knee Urinary tract infection without hematuria, site unspecified Expected: 04/11/2024 (Approximate), Expires: 04/04/2025 [facility] Work Phone: Comment on above: Expected: 04/11/2024 (Approximate), Expires: 04/04/2025 Start: 04-11-2024 End: 04-04-2025 CBC panel - Blood by Automated count CBC Lab Routine Arthritis of left knee Urinary tract infection without hematuria, site unspecified Expected: 04/11/2024 (Approximate), Expires: 04/04/2025 [facility] Work Phone: Comment on above: Expected: 04/11/2024 (Approximate), Expires: 04/04/2025 Start: 12-16-2023 Evaluation of diagno stic study results [facility] Start: 06-25-2023 COVID-19 Vaccine () COVID-19 Vaccine () [facility] Start: 03-09-2023 Patient referral [facility] Work Phone: Start: 02-24-2023 Anes open/surg arthroscopic proc knee joint nos ANESTH KNEE JOINT SURGERY [facility] Start: 02-24-2023 Arthrs kne surg w/meniscectomy med/lat w/shvg KNEE ARTHROSCOPY/SURGERY [facility] Start: 02-24-2023 Injection aa&/strd femoral nerve NJX AA&/STRD FEMORAL NRV IMG [facility] Start: 02-24-2023 Notification of physician [facility] Start: 02-24-2023 Application of device W [facility] Start: 02-24-2023 Application of ice collar, cap or bag [facility] Start: 02-24-2023 Assessment of risk o f venous thromboembolism [facility] Start: 02-24-2023 Catheterization of vein [facility] Start: 02-24-2023 Deep breathing and coughing exercises [facility] Start: 02-24-2023 Following clinical pathway protocol [facility] Start: 02-24-2023 Gait training procedure [facility] Start: 02-24-2023 Incentive spirometry [facility] Start: 02-24-2023 Introduction of urin jose c catheter [facility] Start: 02-24-2023 End: 02-24-2023 Patient discharge [facility] Start: 02-24-2023 Patient education [facility] Start: 02-24-2023 Provision of activit y privileges [facility] Start: 02-24-2023 Taking patient vital signs [facility] Start: 02-24-2023 Vital signs measurements [facility] Start: 02-24-2023 End: 02-24-2023 [facility] Start: 02-24-2023 Medication education [facility] Start: 06-09-2022 Patient referral [facility] Work Phone: Start: 2020 RSV patient s and/or patients aged 60+ years (1 - 1-dose 60+ series) RSV patients and/or patients aged 60+ years (1 - 1-dose 60+ series) [facility] Start: 01-14-2016 DTaP/Tdap/Td Vaccine s (2 - Tdap) DTaP/Tdap/Td Vaccines (2 - Tdap) [facility] Start: 2010 Zoster Vaccines (1 of 2) Zoste r Vaccines (1 of 2) [facility] Start: 2000 Screening for malign ant neoplasm of breast Mammogram [facility] Start: 1978 Diabetes mellitus screening Diabetes Screening [facility] Start: 1978 [facility]atitis C [facility]: 1966 Pneumococcal Vaccine : 65+ Years (1 of 2 - PCV) Pneumococcal Vaccine: 65+ Years (1 of 2 - PCV) [facility] Start: 1966 Pneumococcal Vaccine : Pediatrics (0 to 5 Years) and At-Risk Patients (6 to 64 Years) (1 of 2 - PCV) Pneumococcal Vaccine: Pediatrics (0 to 5 Years) and At-Risk Patients (6 to 64 Years) (1 of 2 - PCV) [facility] Start: 1961 MMR Vaccines (1 of 1 - Standard series) MMR Vaccines (1 of 1 - Standard series) [facility] Start: 1960 HIV screening HIV Screening [facility] Start: 1960 Lipid panel Lipid Panel [facility] Start: 1960 Screening for malign ant neoplasm of colon [facility] Start: 1960 Yearly Adult Physical Yearly Adult P hysical [facility] 24 Hour ECG [facility] End: 04-04-2024 Bacteria identified in Urine by Culture [facility] Work Phone: Comment on above: Once (Lab) for 1 Occ urrences starting 04/04/2024 until 04/04/2024 C reactive protein [Mass/volume] in Serum or Plasma [facility] Cardiac event recording [facility] Work Phone: CBC W Auto Different ial panel - Blood [facility] Comprehensive metabo lic 2000 panel - Serum or Plasma [facility] Electrocardiogram, 12-lead PRN ACS symptoms Electrocardiogram, 12-lead PRN ACS symptoms ECG Routine As needed until discontinued starting 04/03/2024 [facility] Work Phone: Comment on above: As needed until disc ontinued starting 04/03/2024 Electrocardiogram, 12-lead PRN ACS symptoms Electrocardiogram, 12-lead PRN ACS symptoms ECG Routine 04/04/2024 7:42 AM EDT [facility] Work Phone: Erythrocyte sediment ation rate [facility] End: 04-04-[address]ube [facility] Work Phone: Comment on above: Once for 1 Occurrenc es starting 04/04/2024 until 04/04/2024 Ferritin [Mass/volum e] in Serum or Plasma [facility] Folate [Moles/volume ] in Serum or Plasma [facility] End: 04-04-2024 Rondon Catheter Removal Rondon Catheter Removal Procedures Routine Once for 1 Occurrences starting 04/04/2024 until 04/04/2024 [facility] Work Phone: Comment on above: Once for 1 Occurrenc es starting 04/04/2024 until 04/04/2024 End: 04-03-2024 Incentive spirometry Instruct Incentive spirometry Instruct Respiratory Care Routine Once for 1 Occurrences starting 04/03/2024 until 04/03/2024 [facility] Work Phone: Comment on above: Once for 1 Occurrenc es starting 04/03/2024 until 04/03/2024 Iron and Iron bindin g capacity panel - Serum or Plasma [facility] Magnesium measurement [facility] MG Breast - bilatera l Screening [facility] Work Phone: Patient Education [facility] Work Phone: Patient referral [facility] Work Phone: Procedure [facility] Reticulocyte count [facility] Serum inorganic phos phate measurement [facility] End: 04-04-2024 Urinalysis complete W Reflex Culture panel - Urine [facility] Service [facility] Work Phone: Comment on above: Once (Lab) for 1 Occ urrences starting 04/04/2024 until 04/04/2024 US Carotid arteries [facility] Vitamin B12 measurement [facility] Immunizations Immunization Date Immunization Notes Care Provider Fa cility 08-31-2022 influenza virus vaccine, unspecified formulation Tin West MD Work Phone: [facility] Work Phone: 06-17-2021 Covid (Pfizer) [facility] Payers Date Payer Category Payer Self-pay [id number] 2023 Unknown [id number] 2017 Unknown [id number] 2005 Unknown [id number] 1960 Unknown [id number] 2.16.8 [id number] 1960 Unknown [id number] 2.16.8 [id number] 1960 Unknown [id number] 2.16.8 [id number] Medicare [id number] Unknown [id number] 2.16.8 [id number] Unknown [id number] 2.16.8 [id number] Unknown [id number] 2.16.8 [id number] Unknown [id number] 2.16.8 [id number] Unknown [id number] 2.16.8 [id number] Unknown [id number] 2.16.8 [id number] Unknown [id number] 2.16.8 [id number] Unknown [id number] 2.16.8 [id number] Unknown [id number] 2.16.8 [id number] Unknown [id number] 2.16.8 [id number] Social History Date Type Detail Facility Start: 05-04-2022 End: 12-16-2023 Tobacco smoking status ILIS Unknown if ever smoked [facility] Start: 07-18-2019 Non-smoker [facility] Start: 1960 Sex Assigned At Female W [facility] Start: 12-16-2023 End: 03-21-2024 Tobacco smoking status NHIS Ex-smoker [facility] Work Phone: Start: 02-23-1980 End: 02-23-1996 History of tobacco use Current smoker [facility] Work Phone: Start: 02-23-1980 End: 02-23-1996 History of tobacco use Cigarette Smoker [facility] Work Phone: Start: 03-21-2024 End: 04-03-2024 Cigarettes smoked current (pack per day) - Reported 0.4 [facility] Start: 03-21-2024 Tobacco use and exposure Smokeless tobacco non-user [facility] Work Phone: Start: 04-03-2024 Alcoholic beverage intake Current drinker of alcohol (finding) [facility] Work Phone: Start: 04-03-2024 B1300 Health Literacy [facility] How often do you nee d to have someone help you when you read instructions, pamphlets, or other written material from your doctor or pharmacy [SILS] Never [facility] Has the electric, gas, oil, or water [place] threatened to shut off services in your home in past 12Mo No [facility] Work Phone: Are you now , , , , never or living with a partner? [facility] Work Phone: How often to you hav e a drink containing alcohol? Never [facility] Work Phone: Do you feel stress - tense, restless, nervous, or anxious, or unable to sleep at night because your mind is troubled all the time - these days [OSQ] Not at all [facility] Work Phone: (I/We) worried whether (my/our) food would run out before (I/we) got money to buy more. Never true [facility] Work Phone: Start: 03-21-2024 Alcohol Comment Glass of wine maybe once a month [facility] Work Phone: Start: 03-19-2024 Gender identity Identifies as female gender (finding) [facility] Work Phone: Start: 03-24-2024 End: 04-03-2024 Exposure to SARS-CoV-2 (event) Not sure [facility] NEGATED: Highlighted row [facility] Medical Equipment Procedure Code Equipment Code [...] Patella, Triathl on, Asymmetric, Size A32 - [id number] Start: 04-03-2024 Component, Ps Femoral, P3, Beaded W/Pa, Left - [id number] Start: 04-03-2024 Baseplate, Triathlon Tritanium, Size 3, 44mm - [id number] Start: 04-03-2024 Size 3, 11mm Triathlon Ps Tibial Insert - [id number] Start: 04-03-2024 Goals Date Patient Goal Desired Activity /State Mental Status Date Assessment Result Facility 02-24-2023 Cognitive function Level Of Cons ciousness Awake;Appropriate;Follows Commands;Drowsy [facility] Work Phone: 02-24-2023 Cognitive function Voice/Name [facility] Work Phone: Clinical Notes 02-24-2023 to 05-02-2025 Note Date & Type Note Facility 05-02-2025 Progress note [facility] 04-26-2025 Progress note Note Date/Time April 26, 2025 1:29pm [facility] [address] [place] [address] OFFICE VISIT Date of Service: 04/26/25 MR#: [id number] Acct: [id number] Name: LEEANN CROCKETT Rep #: [id number] : 1960 Provider: GINO Johnson Age/Sex: 65/F [place] [facility] Status: Signed HPI HPI History of [...] Monitor Intake Visit Reasons: 1 Y FU Systems Test Technician Required: No Accompanied by: Self Is patient [...] (Reviewed 04/26/25 @ 13:09 by Karlie Johnson PROSTHETIC AIDES TEACHER, PROSTHETIC AIDES TEACHER-C) High cholesterol Tear of medial meniscus of [...] (Reviewed 04/26/25 @ 13:09 by Karlie Johnson PROSTHETIC AIDES TEACHER, PROSTHETIC AIDES TEACHER-C) History of knee surgery H/O arthroscopy of left knee History of cardiac catheterization Hx of colonoscopy History of bilateral breast reduction surgery History of left heart catheterization (05/25/18) History of lumpectomy of left breast History of partial hysterectomy Hx of tonsillectomy H/O tubal ligation Family History (Reviewed 04/26/25 @ 13:09 by Karlie Johnson PROSTHETIC AIDES TEACHER, PROSTHETIC AIDES TEACHER-C) Father CVA (cerebral vascular accident) Diabetes Hypertension [...] updated, as necessary. Follow Up: 3 Months (PROSTHETIC AIDES TEACHER/PA) Coding Level of Care Code Off vis,est,level [...] applicable) CC: Dr. Yennifer Johnson MD ~ [facility] Work Phone: 1(545) 114-801107-03-2025 Evaluation note* Diagnosis Onset Date Resolution Status Admit Date Dyspnea on exertion acute April 26, 2025 12:56pm Paroxysmal atrial fibrillation acute April 26, 2025 12:56pm Mixed hyperlipidemia chronic April 26, 2025 12:56pm Palpitations chronic April 26 12:56pm [facility] Work Phone: 1(951) 598-319007-03-2025 Evaluation note* Diagnosis Onset Date Resolution Status Admit Date Dyspnea on exertion acute April 26, 2025 12:56pm Paroxysmal atrial fibrillation acute April 26, 2025 12:56pm Mixed hyperlipidemia chronic April 26, 2025 12:56pm Palpitations chronic April 26 12:56pm Thrombocytosis chronic May 02, 2025 8:49am [facility] Work Phone: 1(618) 390-751107-03-2025 Progress [facility] [address] [place], [place] [address] OFFICE VISIT Date of Service: 04/26/25 MR#: [id number] Acct: [id number] Name: LEEANN CROCKETT Rep #: [id number] : 1960 Provider: GINO Johnson Age/Sex: 65/F [place] [facility] Status: Signed HPI HPI History of [...] Monitor Intake Visit Reasons: 1 Y FU Systems Test Technician Required: No Accompanied by: Self Is patient [...] (Reviewed 04/26/25 @ 13:09 by Karlie Johnson PROSTHETIC AIDES TEACHER, PROSTHETIC AIDES TEACHER-C) High cholesterol Tear of medial meniscus of [...] (Reviewed 04/26/25 @ 13:09 by Karlie Johnson PROSTHETIC AIDES TEACHER, PROSTHETIC AIDES TEACHER-C) Father CVA (cerebral vascular accident) Diabetes Hypertension High cholesterol Mother Breast cancer Cancer Diabetes Hypertension Grandmother CAD (coronary artery disease) Myocardial infarction, Onset Age: 68 Brother Diabetes Aunt Cancer Social History (Reviewed 04/26/25 @ 13:09 by Kalrie Johnson PROSTHETIC AIDES TEACHER, PROSTHETIC AIDES TEACHER-C) Smoking Status: Former smoker quit date: 06/25/96 [...] updated, as necessary. Follow Up: 3 Months (PROSTHETIC AIDES TEACHER/PA) Coding Level of Care Code Off vis,est,level 4 Diagnoses Paroxysmal atrial fibrillation I48.0 Mixed hyperlipidemia E78.2 Palpitations R00.2 Dyspnea on exertion R06.09 Coding Level of Care Code Off vis,est,level 4 Diagnoses Paroxysmal atrial fibrillation I48.0 Mixed hyperlipidemia E78.2 Palpitations R00.2 Dyspnea on exertion R06.09 Clinical Quality Measures Falls Risk Screening/Assistive Devices Have you fallen in the past year?: No 04/26/25 1329 PROSTHETIC AIDES TEACHER PROSTHETIC AIDES TEACHER-C> Date _ Karlie Johnson PROSTHETIC AIDES TEACHER PROSTHETIC AIDES TEACHER-C Cosigner Signature: Date (if applicable) CC: Dr. Yennifer Johnson MD ~ [facility]06-11-2024 History of Present illness Narrative* [...] VCs for safe sequencing provided. Outcome Measures: [facility] Basic Mobility Turning from your back to [...] completion of functional mobility. * Keshawn Stevenson, ACCOUNTANT PROPERTY-FORGE HEATER - 04/04/2024 11:59 AM EDT Celeste Crockett [...] am INDICATION: Signs/Symptoms:leukocytosis. COMPARISON: None. ACCESSION NUMBER(S): [id number] ORDERING CLINICIAN: KESHAWN STEVENSON TECHNIQUE: Single AP view chest FINDINGS: Cardiac silhouette is within normal limits. No infiltrate or effusion identified. Visualized osseous structures demonstrate glenohumeral joint osteoarthritis bilaterally. Impression: 1. No acute process MACRO: None Signed by: Rafael Shepard 04/04/2024 9:46 AM Dictation workstation: [id number] Physical Exam Vitals reviewed. Constitutional: Appearance: Normal [...] am INDICATION: Signs/Symptoms:leukocytosis. COMPARISON: None. ACCESSION NUMBER(S): [id number] ORDERING CLINICIAN: KESHAWN STEVENSON TECHNIQUE: Single AP view chest FINDINGS: Cardiac silhouette is within normal limits. No infiltrate or effusion identified. Visualized osseous structures demonstrate glenohumeral joint osteoarthritis bilaterally. 1. No acute process MACRO: None Signed by: Rafael Shepard 04/04/2024 9:46 AM Dictation workstation:[id number] XR knee left 1-2 views Result Date: 04/03/2024 Interpreted By: Herman Marquez, STUDY: XR KNEE LEFT 1-2 VIEWS; 04/03/2024 10:27 am INDICATION: Signs/Symptoms:Post-op knee. COMPARISON: None. ACCESSION NUMBER(S): [id number] ORDERING CLINICIAN: TIN WEST FINDINGS: Components of left knee arthroplasty are in anatomic alignment. Postoperative soft tissue gas. New left knee arthroplasty in anatomic alignment. MACRO: None Signed by: Herman Marquez 04/03/2024 11:33 AM Dictation workstation: [id number] Assessment/Plan Principal Problem: Arthritis of left knee [...] Yellow, Dark-Yellow Appearance, Urine Clear Clear Specific [place], Urine 1.011 1.005 - 1.035 pH, Urine [...] Up in chair, Alarm off, caregiver present (cryptologic technician operator/analyst entering) OT Assessment Results: Decreased ADL status, [...] gown LE Dressing LE Dressing Adaptive Equipment: Business Management Intern, Sock aide Sock Level of Assistance: Setup, [...] fair balance during grooming tasks sinkside Outcome Measures:[facility] Daily Activity Putting on and taking off [...] transfers/mobility. Goal: Goal 3 Outcome: Progressing * lEizabeth Song, PT - 04/04/2024 9:15 AM EDT [...] 1: VCs for safe sequencing Outcome Measures: [facility] Basic Mobility Turning from your back to [...] RADHA Quan - 04/04/2024 8:45 AM EDT [facility] sent referral information to pts choice [facility] via [employer] on 04/03, have not received any response. [facility] faxed information to them at [phone] this morning, contact information included on facesheet with request for response. Update: [facility] confirmed they can accept the pt. Hospitalist FORGE HEATER able to input corrected homecare order, this along with other dc information was sent to [facility]. 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 [facility] received message from hospitalist PROSTHETIC AIDES TEACHER with information on which homecare agency pt would like at [place]. [facility] called pts room and spoke with [...] PCP is Dr Johnson, prescriptions filled through [facility] [address] [facility]. 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 documented in this [facility] Work Phone: 1(225) 326-454006-11-2024 Hospital course Narrative* Tin West MD - [...] appointments. Tin West [facility] Phone: 1(812) 873-963106-11-2024 Nurse Note* Pao Foley RN - 04/04/2024 7:19 AM EDT Assumed care of patient. Patient is resting in bed, and talking on her phone. She was made aware that therapy would be in to work with her this morning. She will be up to a chair. Call light is in place will continue to monitor. [facility]06-11-2024 Nurse Note* Pao Foley RN - [...] iv fluids per order [facility] Work Phone: 1(675) 140-790606-11-2024 Plan of care note* Care Plan - [...] ability to cope with hospitalization/illness Outcome: Progressing [facility] Work Phone: 1(704) 500-742106-11-2024 Miscellaneous Notes* Care Plan - Alyssa Graham [...] detailed initial consult and physical exam in [facility] by Larisa Stevenson. I talked in detail with FORGE HEATER regarding assessment and plan. I agree with [...] dermatology disease. Atrial fibrillation Patient see regular stake driver. Continue with flecainide, Cardizem ,Eliquis. Left knee osteoarthritis Status post left total knee arthroplasty Continue with pain medication Physical therapy to evaluate her Hypertension Fairly controlled Patient is on Cardizem Hyperlipidemia Patient lives in [place]. Discussed with care coordination on the case [...] EDT Transport at bedside. Patient transferred to [facility] Status Stable. * Perioperative Nursing Note - Odilia Desai RN - 04/03/2024 10:00 AM EDT Patient received to [facility] [place] [facility]3 from OR. Anesthesia at bedside. Report received. Initial assessmentcomplete. VSS on Substance Abuse Specialist. Patient resting appears comfortable. No signs or symptoms of painnoted. * Op Note - Tin West MD - 04/03/2024 8:24 AM EDT Arthroplasty Resurfacing Total Knee 44110 - AR ARTHRP KNE CONDYLE&PLATU MEDIAL&LAT COMPARTMENTS Operative Note Date: 04/03/2024 OR Location: [facility] OR Name: Leeann Alonso, : 1960, Age: 64 y.o., , Sex: female PRE Diagnosis Left knee osteoarthritis POST Diagnosis Same Procedures Left total knee arthroplasty subvastus approach Surgeons * Tin West - Primary Resident/Fellow/Other Cell Room Operator: nitza Snowden joe Procedure Summary Implants: Styker Cemented Triathlon Total Knee: Femur size 3 posterior stabilized, size 3 primary tibial baseplate, size A32 N2Vac Patella, size 3x11 posterior stabilized N2Vac tibial bearing insert Anesthesia: LMA with adductor canal block ASA: III Anesthesia Staff: Anesthesiologist: Israel Corea MD PARTS PICKER: Nikki Alex APRN-PARTS PICKER Estimated Blood Loss: 50 mL Specimen: No specimens collected Staff: [facility] Assistant: Katy Rodgers RN Scrub Person: Tesfaye Wright; Cy Sorto; Nikki Gr Drains and/or Catheters: 2 Hemovac Tourniquet Times: Total Tourniquet Time Documented: Thigh (Left) - 49 minutes Total: Thigh (Left) - 49 minutes Findings: Patient had severe degenerative changes with medial joint space [id number]-[id number] apposition and peripheral osteophyte formation. Absent ACL. [...] tracking and varus valgus stability throughout. The asa'carsarmiut patella tracked normally. I everted the patella [...] WELL. PHOTO TO CHART documented in this [facility] Work Phone: 1(858) 440-679206-10-2024 Nurse Note* Alyssa Graham RN - 04/03/2024 7:30 PM EDT Assumed care of pt this evening, sitting up in bed, at bedside, denies pain, dressing to left knee c/d/I, hemovac with small amt bloody drainage noted, iv fluids per order [facility]06-10-2024 Note* Treatment Plan - Chante Ma MD - 04/03/2024 3:33 PM EDT Patient was seen and examined by me personally. He is see detailed initial consult and physical exam in [facility] by Larisa Stevenson. I talked in detail with FORGE HEATER regarding assessment and plan. I agree with [...] dermatology disease. Atrial fibrillation Patient see regular stake driver. Continue with flecainide, Cardizem ,Eliquis. Left knee osteoarthritis Status post left total knee arthroplasty Continue with pain medication Physical therapy to evaluate her Hypertension Fairly controlled Patient is on Cardizem Hyperlipidemia Patient lives in [place]. Discussed with care coordination on the case plan to discharge with home health care. Discussed with her family present in the room. [facility] Work Phone: 1(230) 815-478706-10-2024 Plan of care note* Care Plan - Joanne Shetty RN - 04/03/2024 2:04 PM EDT The patient's goals for the shift include No pain The clinical goals for the shift include No pain Over the shift, the patient did not make progress toward the following goals. [facility] Work Phone: 1(960) 290-296306-10-2024 Consult note* SANDOVAL Marcos - 04/03/2024 1:51 [...] and aortic valve insufficiency who presented to [facility] for an anticipated left total knee replacement. [...] or vomiting. No abdominal discomfort. Admitted to [facility]. Medicine consulted for management of chronic medical [...] General: Well developed. NAD. HEENT: PERRL. EOMI. [place] conjunctiva. Trachea midline. Cardiovascular: S1, S2. RRR. [...] INDICATION: Signs/Symptoms:Post-op knee. COMPARISON: None. ACCESSION NUMBER(S): [id number] ORDERING CLINICIAN: TIN WEST FINDINGS: Components of left knee arthroplasty are in anatomic alignment. Postoperative soft tissue gas. New left knee arthroplasty in anatomic alignment. MACRO: None Signed by: Herman Marquez 04/03/2024 11:33 AM Dictation workstation: [id number] Assessment/Plan Atrial fibrillation Eliquis resumed per orthopedic [...] consult. Will continue to follow. SANDOVAL Marcos [facility] Work Phone: [phone]) 422-735106-10-2024 Consult note* SANDOVAL Marcos - 04/03/2024 1:51 PM EDTAssociated Order(s): Inpatient consult to Medicine Inpatient consult to Medicine Consult performed by: Keshawn Stevenson, [employer]-FORGE HEATER Consult ordered by: Tin West MD Reason for consult: HTN, HLD, A fib Reason For Consult HTN, HLD, A fib History Of Present Illness Celeste Crockett is a 64 y.o. female with a past medical history of atrial fibrillation on apixaban, HLT, HTN, and aortic valve insufficiency who presented to [facility] for an anticipated left total knee replacement. [...] or vomiting. No abdominal discomfort. Admitted to [facility]. Medicine consulted for management of chronic medical conditions, HTN, A fib, HLD. Past Medical History She has a past medical history of Anxiety, Aortic valve insufficiency, Arthritis, Asthma ([facility]),Atrial fibrillation (Multi), Easy bruising, Heart disease (2018), [...] General: Well developed. NAD. HEENT: PERRL. EOMI. [place] conjunctiva. Trachea midline. Cardiovascular: S1, S2. RRR. [...] INDICATION: Signs/Symptoms:Post-op knee. COMPARISON: None. ACCESSION NUMBER(S): [id number] ORDERING CLINICIAN: TIN WEST FINDINGS: Components of left knee arthroplasty are in anatomic alignment. Postoperative soft tissue gas. New left knee arthroplasty in anatomic alignment. MACRO: None Signed by: Herman Marquez 04/03/2024 11:33 AM Dictation workstation: [id number] Assessment/Plan Atrial fibrillation Eliquis resumed per orthopedic [...] to follow. SANDOVAL Marcos documented in this [facility] Work Phone: [phone]) 862-420806-10-2024 Note* Perioperative Nursing Note - Odilia Desai RN - 04/03/2024 11:50 AM EDT Transport at bedside. Patient transferred to Division Status Stable. [facility]06-10-2024 Note* Perioperative Nursing Note - Odilia Desai RN - 04/03/2024 10:00 AM EDT Patient received to [facility] [place] [facility]3 from OR. Anesthesia at bedside. Report received. Initial assessmentcomplete. VSS on Substance Abuse Specialist. Patient resting appears comfortable. No signs or symptoms of painnoted. [facility] Work Phone: 1([phone]) 995-658106-10-2024 Hospital Discharge instructions* Discharge Instructions* Tin West MD - 04/03/2024 9:41 AM EDT Dressing: remove after 1 week. Call if any drainage is coming out of the bandage. Weight bearing: weight bear as tolerated Showering: may shower Bathing: no tub bathing or pools Driving: no driving Call with any concerns. documented in this [facility] Work Phone: 1(248) 249-691806-10-2024 Note* Op Note - Tin West MD - 04/03/2024 8:24 AM EDT Arthroplasty Resurfacing Total Knee 11670 - AR ARTHRP KNE CONDYLE&PLATU MEDIAL&LAT COMPARTMENTS Operative Note Date: 04/03/2024 OR Location: [facility] Name: Leeann Alonso, : 1960, Age: 64 y.o., , Sex: female PRE Diagnosis Left knee osteoarthritis POST Diagnosis Same Procedures Left total knee arthroplasty subvastus approach Surgeons * Tin West - Primary Resident/Fellow/Other Cell Room Operator: nitza Snowden joe Procedure Summary Implants: Styker Cemented Triathlon Total Knee: Femur size 3 posterior stabilized, size 3 primary tibial baseplate, size A32 N2Vac Patella, size 3x11 posterior stabilized N2Vac tibial bearing insert Anesthesia: LMA with adductor canal block ASA: III Anesthesia Staff: Anesthesiologist: Israel Corea MD PARTS PICKER: Nikki Alex APRN-PARTS PICKER Estimated Blood Loss: 50 mL Specimen: No specimens collected Staff: Metallurgical Laboratory Assistant: Katy Rodgers RN Scrub Person: Tesfaye Wright; Cy Sorto; Nikki Gr Drains and/or Catheters: 2 Hemovac Tourniquet Times: Total Tourniquet Time Documented: Thigh (Left) - 49 minutes Total: Thigh (Left) - 49 minutes Findings: Patient had severe degenerative changes with medial joint space gdil-nx-iksx apposition and peripheral osteophyte formation. Absent ACL. [...] tracking and varus valgus stability throughout. The asa'carsarmiut patella tracked normally. I everted the patella [...] Attestation: I performed the procedure. Tin West [facility] Work Phone: 1(395) 462-674006-10-2024 Note* Pre-Procedure Note - Cynthia Lopez RN - 04/03/2024 7:57 AM EDT PREOP NERVE BLOCK COMPLETED, PATIENT TOLERATED WELL. PHOTO TO CHART [facility]06-10-2024 Attending History and physical note * Tin West MD - 04/03/2024 7:34 AM EDT H&P reviewed. The patient was examined and there are no changes to the H&P. Source Note - Nikki Zaragoza APRN-FORGE HEATER - 03/21/2024 1:45 PM EDT CPM/PAT Evaluation [...] 03/21/2024 under heading Epic notes. SANDOVAL Mcmullen [facility] Work Phone: 1([phone]) 203-958206-10-2024 History and physical note* Tin West MD - 04/03/2024 7:34 AM EDT H&P reviewed. The patient was examined and there are no changes to the H&P. Source Note - KelleOdessa Zaragoza, [employer]IE-FORGE HEATER - 03/21/2024 1:45 PM EDT CPM/PAT Evaluation [...] Last ECHO completed on 01/17/2024 scanned into [employer]verse[employer] on 03/21/2024 under headingEpic notes. Panic disorder CBC and BMP completed in PAT. EKG completed on 02/25/2024. Dr Gann's cardiac clearance was scanned into Epic media scanned on 03/21/2024 under heading Epic notes. SANDOVAL Mcmullen documented in this [facility] Work Phone: 1(180) 589-703207-12-2023 Discharge summary Author Susan Zambrano [facility] May 05, 2023 5:28pm Note Date/Time May 05, 2023 5:28 pm [facility] Physical Therapy [facility] [address] [place] [address]. [address] [place] [address] / REHABILITATION SERVICES DISCHARGE SUMMARY MR#: [id number] Acct: [id number] Name: LEEANN CROCKETT Rep #: [id number] : 1960 63 From: Susan Zambrano [...] please feel free to call me at [phone]. Thank you for the referral of thispatient. Sincerely, JOYCE Siddiqui Balance/Gait/Functional tests Balance/Special Test Scores Lower Extremity Functional Score: 55 <Electronically signed by Susan Zambrano MPT> 05/05/23 0715 CC: Dr. Yennifer Johnson MD; Dr. Nate Rubio MD ~ Signed [facility] Work Phone: [phone]) [phone] Rubio [facility] February 24, 2023 8:18am Note Date/Time February 24, 2023 8:18am [facility] Medical Records Department [address] [place] [address] Instructions for Home/Discharge Instructions 02/24/23 0817 MR#: [id number] Acct: [id number] Name: LEEANN CROCKETT Rep #:[id number] : 1960 62 From: Nate Rubio MD PCP: Dr. Yennifer Johnson MD Status:R [facility] Discharge Instructions Diet Discharge Diet: No restrictions [...] CC: Dr. Yennifer Johnson MD ~ Signed [facility] Work Phone: [phone]) [phone] History and physical note Author Dr. Rubio [facility] February 24, 2023 7:11am Note Date/Time February 24, 2023 7:11am [facility] Medical Records Department [address] [place] [address] History & Physical Exam 02/24/23 0709 MR#: [id number] Acct: [id number] Name: LEEANN CROCKETT Rep #:[id number] : 1960 62 From: Nate Rubio MD PCP: Dr. Yennifer Johnson MD Status:R [facility] Location: [place] [address] HPI - General HPI Narrative LEEANN CROCKETT, is a 62 F who presents for left knee arthroscopy, MM and debridement. No changes to h and p. OK to proceed, left knee marked. RAB and post op WBAT with crutches discussed. Patient allergic to many narcotics, so getting spinal and block, will use tylenol and NSAIDs post op. No further questions. MR#: [id number] Acct: [id number] Name:? LEEANN CROCKETT Rep #: [id number] : 1960 ? ? Provider: Dr. Nate Rubio MD Age/Sex:? 62/F ? ? [place] [facility] Status: Signed Intake Vital Signs ? 07/27/2213:39 [...] Grind: Yes KNEE: normal gait Supplemental Info [facility] Imaging Services [address] [place] [address] Lower Ext Joint Only (Routine) MR#:? [id number] Acct: [id number] Name:? LEEANN CROCKETT Rep #: [id number] :?? 1960 F 62 ? From:? ? Maximilian Garnett MD PCP: Dr. Yennifer Johnson MD ? Status: REG CLI Study: Lower Ext Joint Only (Routine) ? Date of Exam: 02/02/23 Exam# [id number] ? Ordering Dr:? Nate Rubio MD STUDY:? [...] 23:49 EDT Reading Location ID and State: [facility] / [place] , Service support? , [...] proceed.? We will have to get her stake driver Dr. Lopez clearance / opinion on when [...] surgery, and signed the informed consent documentation.? [facility] Medical History (Updated 02/17/23 @ 13:56 by [...] Johnson MD; Dr. Nate Rubio MD~ Signed [facility] Work Phone: 1([phone]) 640-265505-03-2023 Procedure [facility] Evaluation noteNo assessment information availableGuernsey Memorial Hospital Work Phone: evaluation note* Diagnosis Onset Date Resolution Status Anxiety and depression acute Change in bowel habits acute Fecal incontinence acute GERD (gastroesophageal reflux disease) acute [facility] Work Phone: Evaluation note* Diagnosis Onset Date Resolution Status Anxiety and depression acute Change in bowel habits acute Fecal incontinence acute GERD (gastroesophageal reflux disease) acute Chest pressure acute Fatigue acute Paroxysmal atrial fibrillation acute Essential (primary) hypertension chronic Mixed hyperlipidemia chronic Nonrheumatic aortic valve insufficiency chronic Palpitations chronic [facility] Work Phone: Evaluation note* Diagnosis Onset [...] left knee pain non eactive Fall noneactive [facility] Work Phone: Evaluation note* Diagnosis Onset [...] of popliteal space [Poe], left knee acute [facility] Work Phone: Evaluation note* Diagnosis Onset Date Resolution Status Palpable mass of soft tissue of knee noneactive Posterior left knee pain non eactive Fall noneactive Osteoarthritis of left knee acute Synovial cyst of popliteal space [Poe], left knee acute [facility] Work Phone: Evaluation note* Diagnosis Onset Date Resolution Status Osteoarthritis of left knee acute Osteoarthritis of left knee acute Synovial cyst of popliteal space [Poe], left knee acute Tear of medial meniscus of left knee acute [facility] Work Phone: Evaluation note* Diagnosis Onset Date Resolution Status Osteoarthritis of left knee acute Osteoarthritis of left knee acute Synovial cyst of popliteal space [Poe], left knee acute Tear of medial meniscus of left knee acute Osteoarthritis of left knee acute Tear of medial meniscus of left knee acute [facility] Work Phone: Evaluation note* Diagnosis Onset [...] of medial meniscus of left knee acute [facility] Work Phone: Evaluation note* Diagnosis [...] of medial meniscus of left knee acute [facility] Work Phone: Evaluation note* Diagnosis Onset Date Resolution Status Tear of medial meniscus of left knee acute [facility] Work Phone: Evaluation note* Diagnosis Onset Date Resolution Status Paroxysmal atrial fibrillation acute Essential (primary) hypertension chronic Mixed hyperlipidemia chronic Nonrheumatic aortic valve insufficiency chronic Preventative health care acu te [facility] Work Phone: Evaluation note* Diagnosis Onset Date Resolution Status Preventative health care acu te Fatigue acute Paroxysmal atrial fibrillation acute Dizziness chronic Essential (primary) hypertension chronic Mixed hyperlipidemia chronic Nonrheumatic aortic valve insufficiency chronic Palpitations chronic [facility] Work Phone: Evaluation note* Diagnosis Arthritis of left knee- Primary Arthritis of left knee Urinary tract infection without hematuria, site unspecified HTN (hypertension) Unspecified essential hypertension Hyperlipidemia Other and unspecified hyperlipidemia Valvular heart disease Endocarditis, valve unspecified, unspecified cause Atrial fibrillation (Multi) Atrial fibrillation Asthma ([facility]) Unspecified asthma Anxiety Anxiety state, unspecified documented in this encounter [facility] Work Phone: [facility] Work Phone: [facility] Dis[facility] instructionsW[facility] Work Phone: Progress note Author Cy Peterson [facility] Note Date/Time May 02, 2025 9:37a m [facility] [address] [place] [address] OFFICE VISIT Date of Service: 05/02/25 0900 MR#: [id number] Acct: [id number] Name: LEEANN CROCKETT Rep #: [id number] : 1960 From: Cy Peterson MD Age/Sex: 65/F Location: [facility] Status: Signed HPI Subjective Date of Service 05/02/25 Chief Complaint Referred for thrombocytosis. History of Present Illness 65y.o.woman was found to slight elevation of PLT and referred for evaluation. She denies bleeding disorders, anemia. [facility] Medical History Thrombocytosis High cholesterol Tear of [...] Cy Silva> Date _ Cy Peterson MD [facility] Signature: Date (if applicable) CC: Dr. Yennifer Johnson MD ~ [employer] Work Phone: Reason for referral (narrative)No reason for referral information availableWUniversity [facility]als [facility] Work Phone: Summary Purpose Family History No [...] No May 04, 2022 4:57pm Power of Dean Of Education No May 04 4:57pm Advance Directive Response Recorded Date/ Time Advance Directives No May 26 6:34am Living Will No May 04, 2022 3:57pm Power of Dean Of Education No May 04 3:57pm Advance Directive Response Recorded Date/ Time Name of Medical Power of Dean Of Education - STEPHANIE RIVERA February 17, 2023 1:47pm Advance Directives No May 26 7:34am Living Will Yes February 17, 2023 1:47pm Power of Dean Of Education Yes February 17 1:47pm Advance Directive Response Recorded Date/ Time Advance Directives No May 26 7:34am Living Will Yes February 17, 2023 1:47pm Power of Dean Of Education Yes February 17 1:47pm Advance Directive Response Recorded Date/ Time Advance Directives No May 26 6:34am Living Will Yes October 06, 10:45am Power of Dean Of Education Yes October 06, 2023 10:45am Advance Directive Response Recorded Date/ Time Advance Directives No May 26 7:34am Living Will Yes October 06, 11:45am Power of Dean Of Education Yes October 06, 2023 11:45am Date Activated [...] Diagnoses Arthritis of left knee Keshawn Stevenson, ACCOUNTANT PROPERTY-FORGE HEATER [address] [place] [address] Referral ID Status Reason Start Date Expiration Date Visits Requested Visits Authorized [id number] Pending Review Specialty Services Required 04/04/2024 04/04/[phone] Additional Source Comments INFORMATION SOURCE (unrecogn ized section and content) DATE CREATED AUTHOR 05/23/2020 [facility] DATE CREATED AUTHOR AUTHOR'S ORGANIZ ATION 03/26/2024 [facility] DATE CREATED AUTHOR AUTHOR'S ORGANIZ ATION 04/07/2024 [facility] DATE CREATED AUTHOR AUTHOR'S ORGANIZ ATION 05/09/2025 [facility] Goals (unrecognized section and content) Goals may [...] Attending Provider, Referring Provider Active Karlie Johnson PROSTHETIC AIDES TEACHER, PROSTHETIC AIDES TEACHER-C Other Provider Active Team Status: Inactive Member Role Status Dates Dr. Yennifer Johnson MD Primary Care Provider Active Nate Rubio MD Attending Provider Active Team Status: Inactive Member Role Status Dates Dr. Yennifer Johnson MD Primary Care Provider Active Karlie Johnson PROSTHETIC AIDES TEACHER, PROSTHETIC AIDES TEACHER-C Attending Provider, Referring P rovider Active Team Status: Inactive Member Role Status Dates Dr. Yennifer Johnson MD Primary Care Provider, Refer ring Provider Active Karlie Johnson PROSTHETIC AIDES TEACHER, PROSTHETIC AIDES TEACHER-C Attending Provider Active Team Status: Inactive Member [...] MD Primary Care Provider Active Karlie Johnson PROSTHETIC AIDES TEACHER, PROSTHETIC AIDES TEACHER-C Attending Provider, Referring P rovider Active Team Status: Active Member Role Status Dates Dr. Yennifer Johnson MD Primary Care Provider Active Dr. Salazar Sim MD Attending Provider Active Karlie Johnson PROSTHETIC AIDES TEACHER, PROSTHETIC AIDES TEACHER-C Referring Provider Active Team Status: Active Member Role Status Dates Dr. Yennifer Johnson MD Primary Care Provider Active Karlie Johnson PROSTHETIC AIDES TEACHER, PROSTHETIC AIDES TEACHER-C Attending Provider Active Team Status: Active Member Role Status Dates Dr. Yennifer Johnson MD Primary Care Provider Active Dr. Imtiaz Mccracken MD Attending Provider Active Team Status: Inactive Member Role Status Dates Dr. Yennifer Johnson MD Primary Care Provider Active Start: March 24, 2025 End: March 24, 2025 Larry Rodriguez PROSTHETIC AIDES TEACHER, PROSTHETIC AIDES TEACHER-C Attending Provider Active S tart: March 24, 2025 End: March 24, 2025 Larry Rodriguez PROSTHETIC AIDES TEACHER, PROSTHETIC AIDES TEACHER-C Referring Provider Active S tart: March 24, 2025 End: March 24, 2025 Team Status: Active Member Role/Relationship Status Dates Dr. Yennifer Johnson MD Family Provider Active Dr. Yennifer Johnson MD Primary Care Provider Active Team Status: Inactive Member Role/Relationship Status Dates Dr. Yennifer Johnson MD Primary Care Provider Active Start: March 24, 2025 End: March 24, 2025 Larry Rodriguez PROSTHETIC AIDES TEACHER, PROSTHETIC AIDES TEACHER-C Attending Provider Active S tart: March 24, 2025 End: March 24, 2025 Larry Rodriguez PROSTHETIC AIDES TEACHER, PROSTHETIC AIDES TEACHER-C Referring Provider Active S tart: March 24, 2025 End: March 24, 2025 Team Status: Inactive Member Role/Relationship Status Dates Dr. Yennifer Johnson MD Primary Care Provider Active Start: April 26, 2025 End: April 26, 2025 Dr. Yennifer Johnson MD Referring Provider Active Start: April 26, 2025 End: April 26, 2025 Karlie Johnson PROSTHETIC AIDES TEACHER, PROSTHETIC AIDES TEACHER-C Attending Provider Active Start: April 26, 2025 End: April 26, 2025 Team Status: Active Member Role/Relationship Status Dates Dr. Yennifer Johnson MD Primary Care Provider Active Start: April 26, 2025 Karlie Johnson PROSTHETIC AIDES TEACHER, PROSTHETIC AIDES TEACHER-C Attending Provider Active Start: April 26, 2025 Karlie Johnson PROSTHETIC AIDES TEACHER, PROSTHETIC AIDES TEACHER-C Referring Provider Active Start: April 26, 2025 [...] 2025 End: April 26, 2025 Karlie Johnson PROSTHETIC AIDES TEACHER, PROSTHETIC AIDES TEACHER-C Attending Provider Active Start: April 26, 2025 End: April 26, 2025 Karlie Johnson NP, PROSTHETIC AIDES TEACHER-C Referring Provider Active Start: April 26, 2025 End: April 26, 2025 Reason for Visit (unrecogniz ed section and content) Specialty Diagnoses / Procedures Referred By Arnie alvarez Referred To Contact Diagnoses Primary osteoarthritis of left knee LEFT KNEE OSTEOARTHRITIS Procedures AR ARTHRP KNE CONDYLE&PLATU MEDIAL&LAT COMPARTMENTS Arthroplasty Resurfacing Total Knee Tin West MD [address] [facility] [address] [place] [address] [place] [address] [place] [address] Referral ID Status Reason Start Date Expiration Date Visits Re quested Visits Authorized [id number] 1 1 Scheduled Active and Recently Administ [...] Prophylaxis 0809 (Given - Provider: Nikki Alex APRN-PARTS PICKER) ceFAZolin in dextrose (iso-os) (Ancef) IVPB 2 [...] 92% 1230 (Start - Provider: Héctor Simental, MEDICAL TRANSCRIPTION RADIOLOGY) PRN Medication Order 04/02/2024 04/03/2024 04/04/2024 [email or web address] [...] BE BASED ON THE PRIMARY CLINICAL RECORDS. [facility] [employer] [facility]. provides no warranty or guarantee of the accuracy or completeness of information in this document.
--- NOTE | 2025-05-12 08:01 | ECHOD_ITS ---
Reason For Study Reason For Study: PAROXYSMAL A-FIB Procedure This was a 2D Doppler, Color Flow transthoracic echocardiogram. Exam performed in department. Left Ventricle Normal LV size. Left ventricular systolic function is normal. The left ventricular ejection fraction is 65 %. No regional wall motion abnormalities noted. Right Ventricle Normal RV size. Normal systolic function. Atria Normal left atrium. Normal right atrium. Mitral Valve Normal mitral valve. Tricuspid Valve Normal tricuspid valve. Mild (1+) tricuspid valve insufficiency. Pulmonary artery systolic pressure is 24 mmHg. Aortic Valve Trisinus/trileaflet aortic valve. Pulmonic Valve Normal pulmonic valve. Mild (1+) pulmonic valve insufficiency. Great Vessels Normal aortic root. The pulmonary artery is normal size. Inferior vena cava collapse with respiration. Pericardium/Pleural No pericardial effusion. MMode/2D Measurements & Calculations LVIDd: 5.0 cm IVSd: 0.83 cm Ao root diam: 3.0 cm LVIDs: 2.9 cm LVPWd: 0.94 cm RVDd: 2.8 cm FS: 40.8 % LAV(MOD-sp4): 28.7 ml LVAd ap4: 21.0 cm2 LVAd ap2: 17.8 cm2 LVLd ap4: 6.4 cm LVLd ap2: 6.3 cm EDV(MOD-sp4): 56.4 ml EDV(MOD-sp2): 42.3 ml EDV(sp4-el): 58.1 ml EDV(sp2-el): 42.6 ml LVAs ap4: 11.4 cm2 LVAs ap2: 9.4 cm2 LVLs ap4: 5.2 cm LVLs ap2: 5.0 cm ESV(MOD-sp4): 20.1 ml ESV(MOD-sp2): 14.5 ml ESV(sp4-el): 21.0 ml ESV(sp2-el): 15.0 ml EF(MOD-sp4): 64.4 % EF(MOD-sp2): 65.8 % EF(sp4-el): 63.9 % SV(MOD-sp4): 36.3 ml SV(MOD-sp2): 27.8 ml SV(sp4-el): 37.1 ml SI(MOD-sp4): 21.0 ml/m2 SI(MOD-sp2): 16.1 ml/m2 LA A4 area: 12.1 cm2 LA dimension(2D): 3.0 cm RA A4 area: 10.7 cm2 TAPSE: 1.9 cm Time Measurements MV dec time: 0.14 sec Doppler Measurements & Calculations MV E max monroe: 49.1 cm/sec Lat Peak E' Monroe: 13.2 cm/sec Med Peak E' Monroe: 11.5 cm/sec MV A max monroe: 38.1 cm/sec E/E' lat: 3.7 E/E' med: 4.3 MV E/A: 1.3 MV V2 max: 78.7 cm/sec MV P1/2t max monroe: 76.6 cm/sec Ao V2 max: 100.2 cm/sec MV max P.5 mmHg MV P1/2t: 48.5 msec Ao max P.0 mmHg MV V2 mean: 37.0 cm/sec Ao V2 mean: 70.0 cm/sec MV mean P.72 mmHg MV dec slope: 462.5 cm/sec2 Ao mean P.1 mmHg MV V2 VTI: 17.8 cm MVA(P1/2t): 4.5 cm2 Ao V2 VTI: 22.8 cm AV (velocity ratio): 1.1 AI max monroe: 336.9 cm/sec LV V1 max: 96.1 cm/sec PA V2 max: 106.2 cm/sec AI max P.4 mmHg LV V1 max P.7 mmHg PA V2 mean: 68.0 cm/sec LV V1 mean P.0 mmHg PA V2 VTI: 20.5 cm AI dec slope: 161.6 cm/sec2 LV V1 mean: 66.1 cm/sec AI P1/2t: 610.7 msec LV V1 VTI: 24.0 cm TR max monroe: 226.6 cm/sec PI dec slope: 130.9 cm/sec2 TR max P.5 mmHg ECHO/Echo Complete Interpretation Summary Normal LV size. Left ventricular systolic function is normal. The left ventricular ejection fraction is 65 %. Structurally normal valves. Ordering Physician: Karlie Johnson Referring Physician: Yennifer Johnson Performed By: Mariia Forrest RDCS, RVT
== END | disposition home or self-care (01) ==
LOC: CVS 07:57
PROVIDERS: PCP Internal Medicine; Referring Provider Nurse Practitioner Gerontology; Visit Provider Nurse Practitioner Gerontology
DX: I49.9 Cardiac arrhythmia, unspecified (principal)
CPT/HCPCS: 93306

== ENCOUNTER → 2025-08-01 | Outpatient (CLI) | payer BC, SELFPAY | END | disposition home or self-care (01) | LOC: CVS 07:47 | PROVIDERS: PCP Internal Medicine; Referring Provider Nurse Practitioner Gerontology; Visit Provider Nurse Practitioner Gerontology | DX: R42 Dizziness and giddiness (principal) | CPT/HCPCS: 93880 ==

== ENCOUNTER → 2025-08-15 | Outpatient (CLI) | payer BC, SELFPAY ==
--- OUTSIDE RECORDS SUMMARY | 2025-08-15 06:15 | XMS RPT_ITS | CCD ---
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 Yennifer Johnson Primary Care Provider [phone] Dr. Yennifer Johnson Attending Provider [phone] Dr. Yennifer Johnson Referring Provider [phone] Alex OPERATIONS SUPERVISOR 2ND SHIFT, OPERATIONS SUPERVISOR 2ND SHIFT-C Karlie Attending Provider Dr. Cyrus Lopez Attending Provider [phone] ELOISE Amaya Attending Provider Unavailab Dr. Yennifer Yin Primary Care Provider 1(33 0) Dr. Yennifer Johnson Referring Provider [phone] Alex MAYER, LEYLA-C Karlie Attending Provider Dr. Cyrus Lopez Attending Provider 1(330) Dr. Yennifer Johnson Attending Provider [phone] ELOISE Amaya Attending Provider MD Nate Jolly Attending Provider [phone] Dr. Imtiaz Mccracken Attending Provider Dr. Yennifer Johnson Primary Care Provider 1(33 0) Dr. Yennifer Johnson Referring Provider [phone] Dr. Yennifer Johnson Primary Care Provider 1(33 0) Dr. Yennifer Johnson Referring Provider [phone] MD Nate Rubio Attending Provider [phone] MD Nate Rubio Referring Provider [phone] MD Nate Rubio Other Provider [phone] Yennifer Johnson Primary Care Provider 1(33 0) Dr. Yennifer Johnson Referring Provider [phone] MD Nate Rubio Attending Provider [phone] Dr. Yennifer Johnson Primary Care Provider 1(33 0) Dr. Yennifer Johnson Referring Provider [phone] Alex OPERATIONS SUPERVISOR 2ND SHIFT, OPERATIONS SUPERVISOR 2ND SHIFT-C Karlie Attending Provider Dr. Yennifer Johnson Attending Provider [phone] Pb NAVAS PA Sarabjit Nelson Attending Provider Dr. Yennifer Johnson Primary Care Provider 1(33 [phone]) Dr. Yennifer Johnson Referring Provider [phone] Alex OPERATIONS SUPERVISOR 2ND SHIFT, OPERATIONS SUPERVISOR 2ND SHIFT-C Karlie Attending Provider Dr. Yennifer Johnson Primary Care Provider 1(33 0) Dr. Yennifer Johnson Attending Provider [phone] Dr. Yennifer Johnson Referring Provider [phone] Pb NAVAS PA Sarabjit Nelson Attending Provider Alex MAYER, OPERATIONS SUPERVISOR 2ND SHIFT-C Karlie Attending Provider Dr. Salazar Sim Attending Provider [phone] Alex OPERATIONS SUPERVISOR 2ND SHIFT, OPERATIONS SUPERVISOR 2ND SHIFT-C Karlie Referring Provider Dr. Imtiaz Mccracken Attending Provider [phone] Unavailable Primary Care Provider Unavailjacqui e [facility] Admitting Unavailable [facility] Attending Unavailable Dr. Yennifer Johnson MD Primary Care Provider Michael MAYER-Larry Tamez Attending Provider [phone] Michael MAYER-Larry Tamez Referring Provider [phone] Dr. Yennifer Johnson MD Referring Provider 1([phone] Alex MAYER-CKarlie Attending Provider [phone] Alex MAYER-CKarlie Referring Provider Kristen SWARTZ, Dr. Benoit Attending Provider Kaykay SWARTZ, Dr. Kitchen Attending Provider [phone] Elizabeth SWARTZ, Dr. De Oliveira Attending Provider [phone] Elizabeth SWARTZ, Dr. De Oliveira Primary Care Physician Karlie Alfred Attending Physician Kristen SWARTZ, Dr. Benoit Attending Physician Kaykay SWARTZ, Dr. Kitchen Attending Physician Elizabeth SWARTZ, Dr. De Oliveira Attending Physician [phone] Kristen SWARTZ, Dr. Benoit Referring Provider Oleghe, Efewongbe Primary Care Unavailable Imtiaz Mccracken Attending Unavailable Oleghe, Efewongbe Primary Care Unavailable Cy Peterson Referring Unavailable Cy Peterson Attending Unavailable Alex OPERATIONS SUPERVISOR 2ND SHIFT, Karlie Referring Unavailable Oleghe, Efewongbe Primary Care Unavailable Alex MAYER, Karlie Attending Unavailable Oleghe, Efewongbe Referring Unavailable Oleghe, Efewongbe Primary Care Unavailable Cy Maldonado Attending Unavailable Oleghe, Efewongbe Referring Unavailable Oleghe, Efewongbe Attending Unavailable Oleghe, Efewongbe Primary Care Unavailable Alex MAYER, Karlie Referring Unavailable Oleghe, Efewongbe Primary Care Unavailable Alex OPERATIONS SUPERVISOR 2ND SHIFT, Karlie Attending Unavailable Alex OPERATIONS SUPERVISOR 2ND SHIFT, Karlie Referring Unavailable Oleghe, Efewongbe Primary Care Unavailable Alex OPERATIONS SUPERVISOR 2ND SHIFT, Karlie Attending Unavailable Oleghe, Efewongbe Referring Unavailable Oleghe, Efewongbe Primary Care Unavailable Alex OPERATIONS SUPERVISOR 2ND SHIFT, Karlie Attending Unavailable Johnson OPERATIONS SUPERVISOR 2ND SHIFT, Karlie Referring Unavailable Johnson OPERATIONS SUPERVISOR 2ND SHIFT, Karlie Attending Unavailable Oleghe, Efewongbe Primary Care Unavailable Oleghe, Efewongbe Primary Care Unavailable Imtiaz Mccracken Attending Unavailable Salazar Sim Attending Unavailable Oleghe, Efewongbe Primary Care Unavailable Oleghe, Efewongbe Primary Care Unavailable Alex MAYER, Karlie Attending Unavailable Oleghe, Efewongbe Primary Care Unavailable Alex MAYER, Karlie Referring Unavailable Alex MAYER, Karlie Attending Unavailable Larry Rodriguez NP Referring Unavailable Larry Rodriguez NP Attending Unavailable Oleghe, Efewongbe Primary Care Unavailable Alex OPERATIONS SUPERVISOR 2ND SHIFT, Karlei Referring Unavailable Alex MAYER, Karlie Attending Unavailable Oleghe, Efewongbe Primary Care Unavailable Oleghe, Efewongbe Referring Unavailable Oleghe, Efewongbe Primary Care Unavailable Alex MAYER, Karlie Attending Unavailable Oleghe, Efewongbe Referring Unavailable Oleghe, Efewongbe Primary Care Unavailable Oleghe, Efewongbe Attending Unavailable Oleghe, Efewongbe Referring Unavailable Cy Peterson Attending Unavailable Oleghe, Efewongbe Primary Care Unavailable Oleghe, Efewongbe Primary Care Unavailable Alex OPERATIONS SUPERVISOR 2ND SHIFT, Karlie Attending Unavailable Alex MAYER, Karlie Referring Unavailable Oleghe, Efewongbe Primary Care Unavailable Imtiaz Mccracken Attending Unavailable Oleghe, Efewongbe Referring Unavailable Oleghe, Efewongbe Primary Care Unavailable Oleghe, Efewongbe Attending Unavailable Oleghe, Efewongbe Referring Unavailable Oleghe, Efewongbe Primary Care Unavailable Cy Peterson Attending Unavailable Allergies Allergy Classification Reported Allergen(s) Allergy Type Date of Onset Reaction(s) Facility (20 sources) Adhesive agent; Translations: [adhesive] Propensity to adverse reactions 2 Other [facility] Comment on above: FROM ELECTRODE ADHES AMANDA (20 sources) Bee pollen Drug Allergy 1 Anaphylaxis [facility] (20 sources) Codeine; Translations: [CODEINE] Drug Allergy 5 Anaphylaxis [facility] (20 sources) HYDROmorphone; Translations: [HYDROMORPHONE] Drug Allergy 9 Anaphylaxis [facility] Comment on above: DIZZINESS, DRY MOUTH (20 sources) Niacin; Translations: [NIACIN] Drug Allergy 7 Hives, Rash, Swelling [facility] (20 sources) oxyCODONE; Translations: [oxycodone HCl] Drug Allergy 1 Anaphylaxis [facility] (20 sources) Propoxyphene; Translations: [propoxyphene napsylate] Drug Allergy 1 Angioedema [facility] (20 sources) Simvastatin; Translations: [SIMVASTATIN] Drug Allergy 1 Other [facility] (20 sources) dog dander Allergy to substance 2 Swelling [facility] (20 sources) Opioids - Morphine Analogues; Translations: [Opioids - Morphine Analogues] Allergy to substance 1 Anaphylaxis [facility] (20 sources) perfume; Translations: [perfume] Allergy to substance 1 swelling [facility] (20 sources) venom-honey bee Allergy to substance 6 Anaphylaxis [facility] (3 sources) atorvastatin; Translations: [ATORVASTATIN CALCIUM] Drug Allergy 6 Other [facility] (3 sources) Grass pollen; Translations: [GRASS POLLEN] Propensity to adverse reactions to drug (disorder) 6 Cough [facility] (3 sources) house dust allergenic extract; Translations: [HOUSE DUST] Drug Allergy 6 Cough [facility] (3 sources) Mold Extract; Translations: [MOLD] Drug Allergy 6 Cough [facility] (3 sources) Morphine; Translations: [MORPHINE] Drug Allergy 9 Cough, Dizziness, Headache, Itching, Other, Palpitations, Shortness of breath [facility] (3 sources) oxyCODONE; Translations: [OXYCODONE] Drug Allergy 4 Cough, Dizziness, Headache, Itching, Other, Rash, Shortness of breath, Swelling [facility] (3 sources) Propoxyphene; Translations: [PROPOXYPHENE] Drug Allergy 4 Shortness of breath, Cough, Dizziness [facility] (3 sources) rosuvastatin; Translations: [ROSUVASTATIN CALCIUM] Drug Allergy 7 Other [facility] Repository (3 sources) wasp venom; Translations: [WASP VENOM] Propensity to adverse reactions to drug (disorder) 6 Anaphylaxis [facility] (2 sources) BEE VENOM PROTEIN (HONEY BEE); Translations: [BEE VENOM PROTEIN (HONEY BEE)] Propensity to adverse reactions to drug (disorder) 6 [facility] (1 source) ALLERGIES NOT ON FILE; Translations: [ALLERGIES NOT ON FILE] Propensity to adverse reactions (disorder) [place] [address] Repository (10 sources) Ketorolac Drug Allergy 4 Nausea [facility] Comment on above: swelling in face (1 source) Bee pollen Drug allergy (disorder) [facility] Repository (1 source) Codeine Drug Allergy 5 [facility] Repository (1 source) HYDROmorphone Drug Allergy 5 [facility] Repository (1 source) Ketorolac Drug Allergy 5 [facility] Repository (1 source) Niacin Drug Allergy 5 [facility] Repository (1 source) Simvastatin Drug Allergy 5 [facility] Repository (1 source) venom-honey bee Drug allergy (disorder) 5 [facility] Repository (1 source) dog dander Drug allergy (disorder) [facility] Repository Medications Current Medications Medication Drug Class(es) [...] 10 tablet 04/04/2024 04/09/2024 Active disability placard (20 sources) Start: 11-13-2020 disability misael card Active [...] 28, 2019 12:00am December 21, 2019 10:12am eszopiclone 2 mg oral tablet (3 sources) Start: 10-03-2025 Eszopiclone (Lunesta) 2 mg tablet Active 1 mg PO AT BEDTIME 30 0 July 27, 2025 12:00am Insomnia Insomnia, unspecified Take 1/2 tab QHS PRN x 2 weeks. Increase to 1 tablet if needed Complies with drug therapy ibuprofen 600 mg oral tablet (20 sources) [...] HOURS NEEDED as needed for Pain Score 1-10 60 0 July 28, 2019 12:00am December [...] Phase II/On Unit Multivitamin (Daily Multi-Vitamin) tablet (12 sources) Start: 12-16-2023 Multivitamin (Daily Multi-Vitamin) tablet Active 1 {tbl} PO DAILY December 16, 2023 1:00am Complies with drug therapy Start: 12-16-2023 Multivitamin ( Daily Multi-Vitamin) tablet Active 1 {tbl} PO DAILY December 16, 2023 1:00am Start: 12-16-2023 [facility] Multivitamin (Daily Multi-Vitamin) tablet Active [...] O2 Sat Above: 92% polyethylene glycol 3350 20158 mg powder for oral solution (1 source) Osmotic Laxative Start: 04-03-2024 17 g, oral, Daily, First dose on Wed04/03/24 at 1230, Phase II/On Unit sertraline 50 mg oral tablet (20 sources) Serotonin Reuptake Inhibitor Start: 07-27-2025 Sertraline 50 mg tablet Active 50 mg PO daily 21 01July 27, 2025 12:00am Take half tablet for 2 weeks then increase to 1 tablet Complies with drug therapy Start: 06-09-2022 End: 08-06-2022 take 1 tablet by mouth once daily Sertraline 50 mg tablet Discontinued 50 mg PO DAILY 23 11July 02, 2022 1:17pm August 06, 2022 9:22am Completed/Discontinued Medications Medication Drug Class(es) Dates Sig [...] for shortness of breath or wheezing 18 6 April 18, 2018 3:47pm May 24, 2018 [...] needed for shortness of breath or wheezing 11 04April 18, 2018 12:00am April 18, 2018 3:48pm [...] mg / valsartan 320 mg oral tablet (13 sources) Dihydropyridine Calcium Channel Bull, Angiotensin 2 [...] mg / clavulanate 125 mg oral tablet (20 sources) Penicillin-class Antibacterial Start: 08-27-2021 End: 09-02-2021 [...] 2018 1:42pm azithromycin 250 mg oral tablet (20 sources) Macrolide Antimicrobial Start: 01-10-2018 End: 01-15-2018 [...] 2022 9:22am benzonatate 200 mg oral capsule (13 sources) Non-narcotic Antitussive Start: 10-06-2023 End: 12-16-2023 take 1 capsule by mouth three times daily as needed for cough Benzonatate 200 mg capsule Discontinued 200 mg PO THREE TIMES A DAY as needed for cough 14 0 October 06, 2023 1:00am December 16, 2023 2:15pm budesonide 0.25 mg/ml inhalation suspension (20 sources) Corticosteroid Start: 07-28-2019 End: 06-20-2021 take [...] 200 mg (500 mg) -400 unit tablet (10 sources) Start: 08-06-2022 End: 12-16-2023 Calcium Carbonate-Vitamin [...] mouth once 400 mg, oral, Once, On 04/03/24 at 0645, For 1 dose, Preprocedure, Capsules may be opened and sprinkled on a spoonful of cold or room temperature applesauce. cetirizine hydrochloride 10 mg oral capsule (20 sources) Histamine-1 Receptor Antagonist Start: 03-21-2016 End: [...] at Discharge) clopidogrel 75 mg oral tablet (20 sources) [id number] Platelet Inhibitor Start: 05-16-2018 End: 05-31-2018 take 1 tablet by mouth once daily Clopidogrel (Plavix) 75 mg tablet Discontinued 75 mg PO daily 30 May 16, 2018 12:00am May 31, 2018 3:08pm cyclobenzaprine hydrochloride 10 mg oral tablet (20 sources) Muscle Relaxant Start: 01-28-2017 End: 01-10-2018 take 1 tablet by mouth three times daily as needed for muscle spasms Cyclobenzaprine 10 MG tablet Discontinued 10 mg PO THREE TIMES A DAY as needed for Muscle Spasm 20 January 28, 2017 12:00am January 10, 2018 1:42pm dexamethasone 6 mg oral tablet (13 sources) Corticosteroid Start: 10-06-2023 End: 12-16-2023 take 1 tablet by mouth once daily Dexamethasone 6 mg tablet Discontinued 6 mg PO DAILY 5 October 06, 2023 1:00am December 16, 2023 [...] 18, 2018 3:55pm May 12, 2018 2:10pm [id number] 0.3 ml EPINEPHrine 1 mg/ml auto-injector (20 [...] 9:19am November 29, 2024 9:12am Fluticasone Furoate-Vilanterol (20 sources) Corticosteroid, beta2-Adrenergic Agonist Start: 09-30-2017 End: [...] 2017 10:16pm furosemide 20 mg oral tablet (20 sources) Loop Diuretic Start: 01-10-2018 End: 04-18-2018 [...] 2018 1:43pm hydroCHLOROthiazide 12.5 mg oral capsule (20 sources) Thiazide Diuretic Start: 07-28-2019 End: 12-21-2019 [...] Losartan-Hydrochloroth iazide Discontinued 1 TABLET PO DAILY 90 November 02, 2022 10:30am November 08, 2023 [...] 2018 1:43pm LORazepam 0.5 mg oral tablet (20 sources) Benzodiazepine Start: 06-09-2022 End: 08-06-2022 take 1 tablet by mouth once daily as needed for anxiety Lorazepam 0.5 mg tablet Discontinued 0.5 mg PO DAILY as needed for anxiety 20 June 09, 2022 12:00am August 06, 2022 9:22am Anxiety and depression Anxiety disorder, unspecified Depression, unspecified losartan potassium 50 mg oral tablet (20 sources) Angiotensin 2 Receptor Bull Start: 07-28-2019 [...] Discontinued 0 PO per package directions 21 September 17, 2020 2:10pm January 06, 2021 [...] Nerve block Multivitamin,Tx-I duncan-Minerals (Complete Multivitamin) tablet (10 sources) Start: 09-30-2017 End: 01-10-2018 Multivitamin,Tx-Iron- Minerals [...] take 1 tablet by mouth once daily multivitamin,cs-ifpc-dklbxaof tablet Discontinued 1 TABLET PO daily September 30, 2017 1:00am January 10, 2018 1:43pm [place]-3 Fatty Acids (14 sources) Start: 01-10-2018 End: 05-24-2018 take 1000 mg by mouth once daily [place]-3 Fatty Acids Discontinued 1000 MG PO daily January 09, 2018 11:00pm May 24, 2018 1:40pm Start: 01-10-2018 End: 05-24-2018 take 1000 mg by mouth once daily [place]-3 Fatty Acids Discontinued 1000 MG PO daily January 10, 2018 12:00am May 24, 2018 2:40pm [place]-3 Fatty Acids 1,000 mg capsule (10 sources) Start: 01-10-2018 End: 05-24-2018 take 1 capsule by mouth once daily [place]-3 Fatty Acids 1,000 mg capsule Discontinued 1000 mg PO daily January 10, 2018 12:00am May 24, 2018 2:40pm polysaccharide iron complex 150 mg oral capsule (20 sources) Start: 07-28-2019 End: 12-21-2019 take 1 capsule by mouth once daily at mealtime Polysaccharide Iron Complex 150 MG capsule Discontinued 150 mg PO DAILY WITH MEALS July 28, 2019 12:00am December 21, 2019 10:14am potassium chloride 10 meq extended release oral tablet (20 sources) Start: 09-30-2017 End: 01-10-2018 take 1 [...] Preprocedure promethazine hydrochloride 25 mg oral tablet (20 sources) Phenothiazine Start: 07-28-2019 End: 12-21-2019 take [...] Discontinued 0.25 mg PO AT BEDTIME 90 1 March 19, 2020 9:33am August 06, 2022 9:21am administer 1-3 hours before bedtime Vitamin B Complex (B Complex-Vitamin B12) tablet (20 sources) Start: 06-24-2022 End: 12-16-2023 Vitamin B [...] Date Documented Da te Episodic/Chronic Acute bronchitis (20 sources) Acute bronchitis; Translations: [Acute bronchitis, unspecified] [...] Complications of surgical procedures or medical care (20 sources) Non-healing surgical wound; Translations: [Other complications of procedures, not elsewhere classified, initial encounter] 09-03-2019 Episodic Comment on above: at [place] bilateral breasts Conditions associated with dizziness or vertigo (20 sources) Dizziness; Translations: [Dizziness and giddiness] Onset: 5 08-24-2018 Episodic Conditions associated with dizziness or vertigo (2 sources) Conditions associated with dizziness or vertigo Disorders of lipid metabolism (20 sources) Mixed [...] Neoplasms of unspecified nature or uncertain behavior (20 sources) Thrombocytosis; Translations: [Thrombocythemia] 05-02-2025 Episodic Comment on above: Mild, asymptomatic.D iscussed thrombocytosis, evaluation and management, indications for therapy.Since her platelets are mildly elevated, observation can be done. She agreed. PLT are normal today . Nonmalignant breast conditions (20 sources) Hypertrophy of breast; Translations: [Hypertrophy of breast] 07-24-2019 Episodic Nonspecific chest pain (20 sources) Chest pain; Translations: [Chest pain, unspecified] Onset: 5 Episodic Osteoarthritis (20 sources) Osteoarthritis of left knee joint; Translations: [Unilateral primary osteoarthritis, left knee] Onset: 4 Chronic Other aftercare (10 sources) Follow-up status; Translations: [Encounter for other orthopedic aftercare] 04-11-2024 Episodic Other and ill-defined heart disease (20 sources) Left ventricular hypertrophy; Translations: [Cardiomegaly] 10-01-2017 Chronic Other and unspecified benign neoplasm (9 sources) Pigmented skin lesion ; Translations: [Melanocytic nevi, unspecified] 05-28-2025 Episodic Other circulatory disease (20 sources) H/O: atrial fibrillation; Translations: [Personal history of other diseases of the circulatory system] 05-12-2022 Episodic Other connective tissue disease (3 sources) Other specified soft tissue disorders; Translations: [Other disorders of soft tissue] Episodic Other connective tissue disease (10 sources) Synovial cyst of left popliteal space; Translations: [Synovial cyst of popliteal space [Poe], left knee] 08-06-2022 Episodic Other connective tissue disease (16 sources) Synovial cyst of popliteal space [Poe], left knee; Translations: [Synovial cyst of popliteal space] Episodic Other connective tissue disease (4 sources) Cyst of bursa; Translations: [Other bursal cyst, right hand] Episodic Other gastrointestinal disorders (3 sources) Alteration in bowel elimination; Translations: [Change in bowel habit] Episodic Other gastrointestinal disorders (20 sources) Incontinence of feces; Translations: [Full incontinence of feces] 06-09-2022 Episodic Other gastrointestinal disorders (3 sources) Change in bowel habit; Translations: [Other symptoms involving digestive system] Episodic Other gastrointestinal disorders (3 sources) Full incontinence of feces; Translations: [Full incontinence of feces] Episodic Other gastrointestinal disorders (20 sources) Altered bowel function; Translations: [Change in bowel habit] 06-09-2022 Episodic Other inflammatory condition of skin (20 sources) Intertrigo; Translations: [Erythema intertrigo] 07-24-2019 Episodic Comment on above: inframammary intertr igo Other lower respiratory disease (20 sources) Dyspnea on exertion; Translations: [Other forms of dyspnea] 05-16-2018 Episodic Other lower respiratory disease (20 sources) Cough; Translations: [Cough] 09-02-2021 Episodic Other non-traumatic joint disorders (20 sources) Shoulder pain; Translations: [Pain in unspecified shoulder] 07-24-2019 Episodic Comment on above: bilateral shoulder p ain from shoulder grooving from the weight of the breasts on her bra straps Other non-traumatic joint disorders (3 sources) Pain in left knee; Translations: [Pain in joint, lower leg] Episodic Other skin disorders (6 sources) Cyst of finger; Translations: [Other specified disorders of skin] Episodic Other skin disorders (6 sources) Localized swelling of finger of right hand; Translations: [Localized swelling, mass and lump, right upper limb] Episodic Other skin disorders (1 source) Localized swelling, mass and lump, right upper limb; Translations: [Localized swelling, mass and lump, right upper limb] Onset: 5 Episodic Other upper respiratory infections (20 sources) Upper respiratory infection; Translations: [Acute upper respiratory infection, unspecified] 08-27-2021 Episodic Analia-; endo-; and myocarditis; cardiomyopathy (except that caused by tuberculosis or sexually transmitted disease) (2 sources) Heart valve disorder; Translations: [Endocarditis, valve unspecified] Onset: 4 04-03-2024 Chronic Poisoning by nonmedicinal substances (20 sources) Allergic reaction caused by hymenoptera venom; Translations: [Toxic effect of venom of other arthropod, accidental (unintentional), initial encounter] 05-12-2022 Episodic Residual codes; unclassified (20 sources) Family history of breast cancer; Translations: [Family history of malignant neoplasm of breast] 07-24-2019 Episodic Residual codes; unclassified (10 sources) Postoperative state; Translations: [Other specified postprocedural states] 04-11-2024 Episodic Residual codes; unclassified (8 sources) Insomnia; Translations: [Insomnia, unspecified] 05-28-2025 Episodic Residual codes; unclassified (1 source) Insomnia, unspecified; Translations: [Insomnia, unspecified] Onset: Episodic Screening and history of mental health and substance abuse codes (20 sources) Ex-smoker; Translations: [Personal history of nicotine dependence] 07-24-2019 Episodic Spondylosis; intervertebral disc disorders; other back problems (20 sources) Chronic thoracic back pain; Translations: [Pain in thoracic spine] 07-24-2019 Episodic Syncope (20 sources) Syncope and collapse; Translations: [Syncope and collapse] 08-24-2018 Episodic Unclassified (1 source) Encounter for preventive care Unclassified (1 source) Z00.00 - Encounter for general adult medical examination without abnormal findings Unclassified (3 sources) Patient encounter status Unclassified (3 sources) Z00.00 - Encounter for general adult medical examination without abnormal findings,D22.9 - Melanocytic nevi, unspecified Unclassified (1 source) M71.341 - Other bursal cyst, right hand Unclassified (2 sources) R22.31 - Localized swelling, mass and lump, right upper limb Unclassified (2 sources) Thrombocytosis, unspecified; Translations: [Thrombocytosis, unspecified] Onset: Urinary tract infections (1 source) Urinary tract infectious disease; Translations: [Urinary tract infection, site not specified] 04-04-2024 Episodic Past or Other Problems Problem Classification Problem Date Documented Date Episodic/Chronic Other lower respiratory disease (1 source) Shortness of breath; Translations: [Shortness of breath] Onset: 05-02-2025 Episodic Other lower respiratory disease (1 source) Other forms of dyspnea; Translations: [Other forms of dyspnea] Onset: 04-26-2025 Episodic Other screening for suspected conditions (not mental disorders or infectious disease) (20 sources) Patient encounter status; Translations: [Encounter for screening for malignant neoplasm of colon] Onset: 11-16-2024 07-08-2021 Episodic Residual codes; unclassified (20 sources) History of cardiac catheterization; Translations: [Other specified postprocedural states] Onset: 05-25-2018 05-26-2018 Episodic Comment on above: 2015 and 05/26/2018 vladimir Infante @ [facility]: normal coronaries Results Test Name Value Interpretation Reference Range Facility L3410.9992on 08-09-2025 [facility] [place]. COMMENT Normal . [facility] Comment on above: Order Comment: [id number] [id number] WITH REFLEX-WB LAV-RT Result Comment: Test Ordered: [id number] JAK2 V617F rfx CALR/MPL/E12-15 Test(s) 614116-[id number] V617F Result was developed and its performance characteristics determined by [facility]. It has not been cleared or approved by the Food and Drug Administration. Specimen Type Comment: ROBERTS Reference Range: . NOT PROVIDED JAK2 V617F Result Comment ROBERTS Reference Range: . NEGATIVE The JAK2 V617F mutation is not detected in the provided specimen of this individual. Results should be interpreted in conjunction with clinical and other laboratory findings for the most accurate interpretation. Reflex Comment ROBERTS Reference Range: . Reflex to CALR Mutation Analysis, JAK2 Exon 12-15 Mutation Analysis, and MPL Mutation Analysis is indicated. CALR Result Comment ROBERTS Reference Range: . NEGATIVE No insertions or deletions were detected within the analyzed region of the calreticulin (CALR) gene. A negative result does not entirely exclude the possibility of a clonal population carrying CALR gene mutations that are not covered by this assay. Results should be interpreted in conjunction with clinical and laboratory findings for the most accurate interpretation. MPL Result Comment ROBERTS Reference Range: . NEGATIVE No MPL mutation was identified in the provided specimen of this individual. Results should be interpreted in conjunction with clinical and other laboratory findings for the most accurate interpretation. E12-15 Result Comment ROBERTS Reference Range: . NEGATIVE JAK2 mutations were not detected in exons 12, 13, 14 and 15. The G to T nucleotide change encoding the V617F mutation was not detected. This result does not rule out the presence of JAK2 mutation at a level below the detection sensitivity of this assay, the presence of other mutations outside the analyzed region of the JAK2 gene, or the presence of a myeloproliferative or other neoplasm. Result must be correlated with other clinical data for the most accurate diagnosis. V617F Rfx CALR/MPL/E12-15 Bkgd Comment TG Reference Range: . Molecular testing of blood or bone marrow is useful in the evaluation of suspected myeloproliferative neoplasms (MPN). Mutations in the JAK2, MPL, and CALR genes are present in virtually all MPNs and their presence help distinguish benign reactive processes from clonal neoplasms. These mutations are generally considered mutually exclusive, although concurrent clones have been reported in rare patients. This test will assess for the [id number] (exon 14) mutation first and will reflex to CALR mutation analysis, MPL mutation analysis, and JAK2 exon 12 to 15 mutation analysis if the [id number] mutation is negative. The JAK2 (Janus kinase 2) gene encodes for a non-receptor protein tyrosine kinase that activates cytokine and growth factor signaling. The V617F (c.1849 G>T) mutation results in constitutive activation of JAK2 and downstream STAT5 and ERK signaling. The V617F mutation is observed in approximately 95% of polycythemia vera (PV), 60% of essential thrombocythemia (ET) and primary myelofibrosis (PMF). It is also infrequently present (3-5%) in myelodysplastic syndrome, chronic myelomonocytic leukemia, and other atypical chronic myeloid disorders. A small percentage of JAK2 mutation positive patients (3.3%) contain other non-V617F mutations within exons 12 to 15. In particular, mutations in exon 12 of JAK2 have been described in approximately 3% of patients with PV. JAK2 allele burden correlates with clinical phenotype, with low levels of mutant allele characterized by thrombocytosis, intermediate levels with erythrocytosis, and high mutant allele burden correlating with enhanced myelopoiesis of the BM, leukocytosis, increasing spleen size, and circulating FA53-mydfsmjd cells. The CALR (Calreticulin) gene encodes for a multifunctional calcium-binding protein involved in many cellular activities such as growth, proliferation, adhesion, and programmed cell . Among patients with JAK2 negative MPNs, CALR are found in approximately 70% of patients with JAK2-negative essential thrombocythemia (ET) and 60-88% of patients with JAK2-negative primary myelofibrosis(PMF). Only a minority of patients (approximately 8%) with myelodysplasia have mutations in the CALR gene. CALR mutations are rarely detected in patients with de royal acute myeloid leukemia, chronic myelogenous leukemia, lymphoid leukemia, or solid tumors. CALR mutations are not detected in polycythemia and generally appear to be mutually exclusive with JAK2 mutations and MPL mutations. The majority of mutational changes involve a variety of insertion deletion mutations in exon 9 of the calreticulin gene: approximately 53% of all CALR mutations are a 52 bp deletion (type-1) while the second most prevalent mutation (approximately 32%) contains a 5 bp insertion (type-2). Other mutations (non-type 1 or type 2) are s (more content not included)... Performed By: #### L 500.3400, L500.4100 #### [facility] [address] [place], [place], [address] Finger(s) Min 2 Viewson 07-25 Finger(s) Min 2 Views [facility] Imaging Services [address] [place], [place] [address] Finger(s) Min 2 Views MR#: [id number] Acct: [id number] Name: LEEANN CROCKETT Rep #: [id number] : 1960 F 65 From: Venice Garcia MD PCP: Dr. Yennifer Johnson MD Status: DEP AMB Study: Finger(s) Min 2 Views Date of Exam: 08/08/25 Exam# [id number] Ordering Dr: Cy Maldonado DO PROCEDURE: FINGER(S) MIN 2 VIEWS 08/08/2025 REASON FOR EXAM: PAINFUL LUMP TECHNIQUE: Procedure Code: RADFIN Modality: DX Procedure: FINGER(S) MIN 2 VIEWS Laterality: Right COMPARISON: None FINDINGS: Bones: No acute fracture or dislocation. Joints: Moderate DIP degenerative change without erosions. Osteophytosis. Moderate base of the thumb degenerative change. The remainder of the joint spaces are preserved. Soft tissues: Unremarkable Other: N/a RAD/Finger(s) Min 2 Views IMPRESSION: DEGENERATIVE OSTEOARTHROSIS. NO ACUTE FINDINGS. Reading Location: [facility] CC: Dr. Yennifer Johnson MD; Dr. Cy Maldonado DO Pomologist: Signed Normal [facility] Orthopedic Visit Reporton Orthopedic Visit Report [facility] [address] [place] [address] [address] [place], [place] [address] OFFICE VISIT Date of Service: 08/08/25 MR#: [id number] Acct: [id number] Name: LEEANN CROCKETT CHAZ Rep #: [id number] : 1960 Provider: Dr. Cy klein DO Age/Sex: 65/F Location[place] [facility] Status: Signed with Addenda ADDENDUM by Gale Chance on 08/08/25 at 1600 Office Procedure Documentation entered by Gale Chance 08/08/25 16:00: Office Injections/Aspirations Procedure Detail Procedure performed by: Cy Maldonado Ortho Injection Site: Yes Medication Given: Yes Ortho Injections/Aspirations Details: Obtained consent for aspiration. Under sterile conditions, aspirated 1cc of clear yellow gelatinous fluid from the patients right index finger. The patient tolerated the aspiration well without any noted complications. Patient should call our office if redness develops, pain worsens or if they have any concerns. Ortho Injections Injections Is this a patient provided medication?: No Details: Obtained consent for injection. Under sterile conditions, injected the patients right index finger with .25cc bupivacaine .25cc depo medrol. The patient tolerated the injection well without any noted complication. Patient should call our office if redness develops, pain worsens or if they have any concerns. Office Meds Depo-Medrol 40 mg/mL suspension for injection Performing Provider: Cy Maldonado DO Performing Location: [facility] Administered by: Cy Maldonado DO on 08/08/25 15:58 Dose Route Admin Location Dispensed Lot Number Expiration Date Package NDC NDC Sports Physiologist 10 mg intra-articular right index finger 0.25 mL [id number] 06/25/27 1663-0115-33 00 [id number] PHARMACIA- UPJHN Date cc: * Signed Intake Vital Signs 08/01/25 10:49 Height 5 ft 2 in Intake Visit Reasons: RIGHT HAND Allergies dog dander Allergy (Severe, Verified 08/08/25 11:03) Swelling Opioids - Morphine Analogues Allergy (Severe, Verified 08/08/25 11:03) Anaphylaxis perfume Allergy (Severe, Verified 08/08/25 11:03) swelling venom-honey bee Allergy (Severe, Verified 08/08/25 11:03) Anaphylaxis ketorolac (From Toradol) Allergy (Intermediate, Verified 08/08/25 11:03) Nausea bee pollen Allergy (Verified 08/08/25 11:03) Anaphylaxis codeine Allergy (Verified 08/08/25 11:03) Anaphylaxis niacin Allergy (Verified 08/08/25 11:03) Angioedema oxycodone HCl (From Percocet) Allergy (Verified 08/08/25 11:03) Anaphylaxis propoxyphene napsylate (From Darvocet-N) Allergy (Verified 08/08/25 11:03) Angioedema simvastatin (From Zocor) Allergy (Verified 08/08/25 11:03) Angioedema adhesive Adverse Reaction (Severe, Verified 08/08/25 11:03) Other hydromorphone (From Dilaudid) Adverse Reaction (Mild, Verified 08/08/25 11:03) Other Medications ???Medication ???Instructions ???Recorded ???Confirmed ???Type disability placard #1 ea 11/13/20 08/08/25 Rx multivitamin (Daily Multi-Vitamin 1 tab PO DAILY 12/16/23 08/08/25 History tablet) apixaban 5 mg tablet (Eliquis) 5 mg PO BID #180 tabs 11/06/24 Rx diltiazem HCl 240 mg 240 mg PO DAILY #90 caps 11/06/24 08/08/25 Rx capsule,extended release 24 hr ezetimibe 10 mg tablet 10 mg PO DAILY #90 tabs 11/06/24 1 Rx flecainide 100 mg tablet 100 mg PO Q12H #180 tabs 11/29/24 08/08/25 Rx gemfibrozil 600 mg tablet See Rx Instructions .Route 5 08/08/25 Rx .COMPLEX #180 tabs losartan 50 mg-hydrochlorothiazide 1 tab PO QDAY #90 TABLETS 08/08/25 Rx 12.5 mg tablet eszopiclone 2 mg tablet (Lunesta) 1 mg (1/2 x 2 mg) PO QHS #30 tabs 07/27/25 08/08/25 Rx sertraline 50 mg tablet 50 mg PO QDAY #30 tabs 07/27/25 Rx Have you fallen in the past year?: No PFSH Medical History Localized swelling of finger of right hand Other bursal cyst, right hand Cyst of finger Insomnia Skin mole Thrombocytosis High cholesterol Tear of medial meniscus [...] Breast lump in female Back problem Seasonal (more content not included)... Normal [facility] Absolute lymphocyte countOrd ered By: Cy Chowdhurykourtney on 08-01-2025 Lymphocytes Auto (Unsp spec) [#/Vol] 1.66 10*3/uL 0.83-4.51 [facility] Absolute neutrophil countOrd ered By: Cy [facility] on 08-01-2025 Neutrophils (Bld) [#/Vol] 5.4 10*3/uL 2.0-7.7 [facility] Automated lymphocyte count a s percentage of total leukocytesOrdered By: Cy Chowdhurykourtney on 08-01-2025 Lymphocytes/100 WBC Auto (Unsp spec) 20.0 % 19-41 [facility] Basophil percentageOrdered B y: Cy Trentonkourtney on 08-01-2025 Basophils/100 WBC (Bld) 0.8 % 0-1 [facility] CBC W/Diff, Automatedon Absolute Lymph 1.66 X10 3/uL Normal 0.83-4.51 [facility] Comment on above: Performed By: #### L 500.3400, L500.4100 #### [facility] [address] [place], [address] Absolute Neut 5.4 X10 3/uL Normal 2.0-7.7 [facility] Comment on above: Performed By: #### L 500.3400, L500.4100 #### [facility] [address] [place], [address] Basophils/100 WBC (Bld) 0.8 % Normal 0-1 [facility] Comment on above: Performed By: #### L 500.3400, L500.4100 #### [facility] [address] [place], [address] Eosinophils/100 WBC (Bld) 2.9 % Normal 0-5 [facility] Comment on above: Performed By: #### L 500.3400, L500.4100 #### [facility] [address] [place], [address] Erythrocyte distribution width (RBC) [Ratio] 12.2 % Normal 11.6-14.6 [facility] Comment on above: Performed By: #### L 500.3400, L500.4100 #### [facility] [address] [place], [address] Hematocrit (Bld) [Volume fraction] 39.2 % Normal 37-47 [facility] Comment on above: Performed By: #### L 500.3400, L500.4100 #### [facility] [address] [place], [address] Hemoglobin (Bld) [Mass/Vol] 13.0 g/dL Normal 12.0-15.0 [facility] Comment on above: Performed By: #### L 500.3400, L500.4100 #### [facility] [address] [place], [address] IG% 0.800 Normal 0.0-0.9 [facility] Comment on above: Result Comment: IG% - Immature Granulocytes (promyelocytes, myelocytes and metamyelocytes) > 1% indicates that a LEFT SHIFT is Present. Performed By: #### L 500.3400, L500.4100 #### [facility] [address] [place], [address] Lymphocytes/100 WBC (Bld) 20.0 % Normal 19-41 [facility] Comment on above: Performed By: #### L 500.3400, L500.4100 #### [facility] [address] [place], [address] MCH (RBC) [Entitic mass] 29.8 pg Normal 27.0-32.0 [facility] Comment on above: Performed By: #### L 500.3400, L500.4100 #### [facility] [address] [place], [address] MCHC (RBC) [Mass/Vol] 33.2 g/dL Normal 32-36 [facility] Comment on above: Performed By: #### L 500.3400, L500.4100 #### [facility] [address] [place], [address] MCV (RBC) [Entitic vol] 89.9 fL Normal 81-99 [facility] Comment on above: Performed By: #### L 500.3400, L500.4100 #### [facility] [address] [place], [address] Monocytes/100 WBC (Bld) 10.2 % High 0-10 [facility] Comment on above: Performed By: #### L 500.3400, L500.4100 #### [facility] [address] [place], [address] Neutrophils/100 WBC (Bld) 65.3 % Normal 47-70 [facility] Comment on above: Performed By: #### L 500.3400, L500.4100 #### [facility] [address] [place], [address] Nucleated RBC (Bld) [#/Vol] 0 10*3/uL Normal 0-5 [facility] Comment on above: Performed By: #### L 500.3400, L500.4100 #### [facility] [address] [place], [address] Platelet mean volume (Bld) [Entitic vol] 9.6 fL Normal 6.2-12.0 [facility] Comment on above: Performed By: #### L 500.3400, L500.4100 #### [facility] [address] [place], [address] Platelets (Bld) [#/Vol] 419 10*3/uL Normal 150-450 [facility] Comment on above: Performed By: #### L 500.3400, L500.4100 #### [facility] [address] [place], [address] RBC (Bld) [#/Vol] 4.36 10*6/uL Normal 4.2-5.4 [facility] Comment on above: Performed By: #### L 500.3400, L500.4100 #### [facility] [address] [place], [address] RDW SD 40.2 fl Normal 35.1-43.9 [facility] Comment on above: Performed By: #### L 500.3400, L500.4100 #### [facility] [address] [place], [address] WBC (Bld) [#/Vol] 8.3 10*3/uL Normal 4.4-11.0 [facility] Comment on above: Performed By: #### L 500.3400, L500.4100 #### [facility] [address] [place], [address] CRPon 08-01-2025 C-REACTIVE PROT 3.44 mg/L High 0.0-3.0 [facility] Comment on above: Performed By: #### L 500.3400, L500.4100 #### [facility] [address] [place], [address] Carotid Duplex Ultrasoundon 08-01-2025 Carotid Duplex Ultrasound [facility] [address] [place] [address] Carotid Duplex Ultrasound 08/01/25 0807 MR#: [id number] Acct: [id number] Name: LEEANN CROCKETT Rep #: [id number] : 1960 65 From: Salazar Sim MD Attending Dr: STANISLAV ChamorroC Status: REG C LI Ordering Dr: Karlie Johnson NP OPERATIONS SUPERVISOR 2ND SHIFT-C Date: 08/01/25 Location: [facility] Sex: F C Admitted: Reason For Study Reason For Study: Dizziness Rt. Velocities/BP Lt. Velocities/BP Prox CCA 85.1/17.6 cm/sec. Prox CCA 89.1/21.6 cm/sec. Mid CCA 68.3/24.1 cm/sec. Mid CCA 84.2/19.2 cm/sec. Dist CCA 70.7/24.1 cm/sec. Dist CCA 68.3/24.1 cm/sec. Prox ICA 67/26.5 cm/sec. Prox ICA 58.2/22.3 cm/sec. Mid ICA 80.6/34.8 cm/sec. Mid ICA 88.4/26.2 cm/sec. Dist ICA 79.2/29.6 cm/sec. Dist ICA 88.2/36.3 cm/sec. Rt. ICA/CCA = 1.18. Lt. ICA/CCA = 1.05. Prox ECA 91.6/14.2 cm/sec. Prox ECA 51.3/6.1 cm/sec. Rt. Vert. 45.9/18.5 cm/sec. Lt. Vert. 54.4/19.5 cm/sec. Right Extracranial There is intimal thickening but no significant atherosclerotic plaque noted in the right common carotid artery. There is homogeneous, smooth atherosclerotic plaque noted in the right internal carotid artery. The right internal carotid artery is very tortuous. There is intimal thickening but no significant atherosclerotic plaque noted in the right external carotid artery. Antegrade flow is noted in the right vertebral artery. Left Extracranial There is intimal thickening but no significant atherosclerotic plaque noted in the left common carotid artery. There is intimal thickening but no significant atherosclerotic plaque noted in the left internal carotid artery. The left internal carotid artery is very tortuous. There is intimal thickening but no significant atherosclerotic plaque noted in the left external carotid artery. Antegrade flow is noted in the left vertebral artery. Procedure Carotid Duplex 49034. This is a Carotid Duplex examination using B-mode, color flow and specral Doppler. Exam performed in department. VL/Carotid Duplex Ultrasound Interpretation Summary Mild (<50%) stenosis right extracranial internal carotid. Normal left extracranial internal carotid. Patent and antegrade vertebrals bilaterally. Ordering Physician: Karlie Johnson Referring Physician: Yennifer Johnson Performed By: Luann Gillette RVT and Student 08/02/25 1406 Date Salazar Sim MD CC: GINO Johnson; Dr. Yennifer Johnson MD Date Dictated: 08/01/25806 Date Transcribed: 08/02/251405 Pomologist: Signed Normal [facility] Comprehensive Metabolic Prof cton 08-01-2025 Albumin [Mass/Vol] 4.6 g/dL Normal 3.4-4.8 [facility] Comment on above: Performed By: #### L 500.3400, L500.4100 #### [facility] [address] [place], [address] Albumin/Globulin [Mass ratio] 1.5 {ratio} Normal 0.9-2.4 [facility] Comment on above: Performed By: #### L 500.3400, L500.4100 #### [facility] [address] [place], [address] ALK PHOS 79 U/L Normal 35-104 [facility] Comment on above: Performed By: #### L 500.3400, L500.4100 #### [facility] [address] [place], [address] ALT [Catalytic activity/Vol] 14 U/L Normal <=34 [facility] Comment on above: Performed By: #### L 500.3400, L500.4100 #### [facility] [address] [place], [address] AST [Catalytic activity/Vol] 18 U/L Normal <=31 [facility] Comment on above: Performed By: #### L 500.3400, L500.4100 #### [facility] [address] [place], [address] Bilirubin [Mass/Vol] 0.37 mg/dL Normal 0.00-1.30 [facility] Comment on above: Performed By: #### L 500.3400, L500.4100 #### [facility] [address] [place], [address] BUN/CRE 24.7 RATIO High 10-20 [facility] Comment on above: Performed By: #### L 500.3400, L500.4100 #### [facility] [address] [place], [address] Calcium [Mass/Vol] 9.8 mg/dL Normal 7.6-11.0 [facility] Comment on above: Performed By: #### L 500.3400, L500.4100 #### [facility] [address] [place], [address] Chloride [Moles/Vol] 103 mmol/L Normal 98-108 [facility] Comment on above: Performed By: #### L 500.3400, L500.4100 #### [facility] [address] [place], [address] CO2 [Moles/Vol] 24.7 mmol/L Normal 21.0-32.0 [facility] Comment on above: Performed By: #### L 500.3400, L500.4100 #### [facility] [address] [place], [address] Creatinine [Mass/Vol] 0.85 mg/dL Normal 0.70-1.20 [facility] Comment on above: Performed By: #### L 500.3400, L500.4100 #### [facility] [address] [place], [address] ECRCL 61.66 ml/min Normal 50-250 [facility] Comment on above: Performed By: #### L 500.3400, L500.4100 #### [facility] [address] [place], [address] GAP 14 Normal 5-15 [facility] Comment on above: Performed By: #### L 500.3400, L500.4100 #### [facility] [address] [place], [address] GFR/1.73 sq M.predicted among non-blacks MDRD (S/P/Bld) [Vol rate/Area] 76 mL/min/{1.73_m2} Normal >60 [facility] Comment on above: Result Comment: mL/m in/1.73m2 CKD-EPI Creatinine Equation (2020) Performed By: #### L 500.3400, L500.4100 #### [facility] [address] [place], [address] Globulin (S) [Mass/Vol] 3.2 g/dL Normal 2.2-4.2 [facility] Comment on above: Performed By: #### L 500.3400, L500.4100 #### [facility] [address] [place], [address] Glucose [Mass/Vol] 99 mg/dL Normal 70-99 [facility] Comment on above: Performed By: #### L 500.3400, L500.4100 #### [facility] [address] [place], [address] Potassium [Moles/Vol] 4.1 mmol/L Normal 3.3-5.1 [facility] Comment on above: Performed By: #### L 500.3400, L500.4100 #### [facility] [address] [place], [address] Sodium [Moles/Vol] 141 mmol/L Normal 133-145 [facility] Comment on above: Performed By: #### L 500.3400, L500.4100 #### [facility] [address] [place], [address] T PROT 7.8 g/dL Normal 5.9-8.4 [facility] Comment on above: Performed By: #### L 500.3400, L500.4100 #### [facility] [address] [place], [address] Urea nitrogen [Mass/Vol] 21 mg/dL High 4-19 [facility] Comment on above: Performed By: #### L 500.3400, L500.4100 #### [facility] [address] [place], [address] Eosinophil percentageOrdered By: Cy Peterson on 08-01-2025 Eosinophils/100 WBC (Bld) 2.9 % 0-5 [facility] Erythrocyte Sed Rateon 08-01 SED RATE 6 mm/hr Normal 0-30 [facility] Comment on above: Performed By: #### L 500.3400, L500.4100 #### [facility] [address] [place], [address] Erythrocyte distribution wid th ratioOrdered By: Cy Peterson on 08-01-2025 Erythrocyte distribution width (RBC) [Ratio] 12.2 % 11.6-14.6 [facility] [facility] Erythrocyte distribution wid th standard deviationOrdered By: Cy Peterson on 08-01-2025 Erythrocyte distribution width (RBC) [Ratio] 40.2 fl 35.1-43.9 [facility] Erythrocyte sedimentation ra teOrdered By: Cy Peterson on 08-01-2025 ESR (Bld) [Velocity] 6 mm/h 0-30 [facility] Ferritinon 08-01-2025 Ferritin [Mass/Vol] 62 ng/mL Normal 22-378 [facility] Comment on above: Performed By: #### L 500.3400, L500.4100 #### [facility] Laboratory [address] [place], [address] Hematocrit Auto (Bld) [Volum e fraction]Ordered By: Cy Peterson on 08-01-2025 Hematocrit (Bld) [Volume fraction] 39.2 % 37-47 [facility] Hemoglobin measurementOrdere d By: Cy Peterson on 08-01-2025 Hemoglobin (Bld) [Mass/Vol] 13.0 g/dL 12.0-15.0 [facility] Immature granulocytes/100 WB C Auto (Bld)Ordered By: Cy Peterson on 08-01-2025 Immature granulocytes/100 WBC (Bld) 0.800 % 0.0-0.9 [facility] Comment on above: IG% - Immature Granu locytes (promyelocytes, myelocytes and metamyelocytes) > 1% indicates that a LEFT SHIFT is Present. Iron+Iron Binding Capacityon 08-01-2025 Iron [Mass/Vol] 93 ug/dL Normal 50-170 [facility] Comment on above: Performed By: #### L 500.3400, L500.4100 #### [facility] Laboratory [address] [place], [address] IRON SATURATION 21.4 Normal 13-59 [facility] Comment on above: Performed By: #### L 500.3400, L500.4100 #### [facility] [address] [place], [address] TIBC 434 ug/dL Normal 250-450 [facility] Comment on above: Performed By: #### L 500.3400, L500.4100 #### [facility] [address] [place], [address] UIBC 341 ug/dL Normal 228-428 [facility] Comment on above: Performed By: #### L 500.3400, L500.4100 #### [facility] [address] [place], [address] LDHon 08-01-2025 LDH 148 U/L Normal 84-246 [facility] Comment on above: Order Comment: 1 Performed By: #### L 500.3400, L500.4100 #### [facility] [address] [place], [address] MCV (mean corpuscular volume ) determinationOrdered By: Cy Peterson on 08-01-2025 MCV (RBC) [Entitic vol] 89.9 fL 81-99 [facility] Magnesiumon 08-01-2025 Magnesium [Mass/Vol] 2.4 mg/dL High 1.5-2.2 [facility] Comment on above: Performed By: #### L 500.3400, L500.4100 #### [facility] [address] [place], [address] Mean corpuscular hemoglobin (MCH) determinationOrdered By: Cy Peterson on 08-01-2025 MCH (RBC) [Entitic mass] 29.8 pg 27.0-32.0 [facility] Mean corpuscular hemoglobin concentration (MCHC) determinationOrdered By: Cy Peterson on 08-01-2025 MCHC (RBC) [Mass/Vol] 33.2 g/dL 32-36 [facility] Mean platelet volume determi nationOrdered By: Cy Peterson on 08-01-2025 Platelet mean volume (Bld) [Entitic vol] 9.6 fL 6.2-12.0 [facility] Monocyte percentageOrdered B y: Cy Peterson on 08-01-2025 Monocytes/100 WBC (Bld) 10.2 % High 0-10 [facility] Neutrophil percentageOrdered By: Cy Peterson on 08-01-2025 Neutrophils/100 WBC (Bld) 65.3 % 47-70 [facility] Nucleated red blood cell per centageOrdered By: Cy Peterson on 08-01-2025 Nucleated RBC/100 WBC (Bld) [Ratio] 0 % 0-5 [facility] Oncology Visit Reporton 10-0 Oncology Visit Report [facility] [address] [place] [address] OFFICE VISIT Date of Service: 08/01/25 1048 MR#: [id number] Acct: [id number] Name: LEEANN CROCKETT Rep #: [id number] : 1960 From: Cy Peterson MD Age/Sex: 65/F [place] [facility] Status: Signed HPI Subjective Date of Service 08/01/25 Chief Complaint F/u for thrombocytopenia. History of Present Illness 65y.o.woman was found to slight elevation of PLT and referred for evaluation. She denies bleeding disorders, anemia. She is on observation, comes for follow up. Feels well. [facility] Medical History Localized swelling of finger of right hand Other bursal cyst, right hand Cyst of finger Insomnia Skin mole Thrombocytosis High cholesterol Tear of medial meniscus [...] history: DOES USE ASPIRIN DOES USE IBUPROFEN Intake Vital Signs 05/02/25 09:01 07/27/25 08:48 08/01/25 10:49 Height 5 ft 2 in 5 ft 2 in 5 ft 2 in Weight: 73.482 kg 72.83 kg BMI 29.6 29.3 BP 125/80 H 121/82 H Blood Pressure Location Lt brachial Lt brachial Position Sitting Sitting Respiration 18 16 Pulse 76 69 Pulse Source Monitor Monitor Temp 98.4 F Temperature Source Temporal Artery Pulse Oximetry (%) 98 99 Oxygen Delivery Method room air room air Intake Is patient in pain?: No Allergies dog dander Allergy (Severe, Verified 08/01/25 10:53) Swelling Opioids - Morphine Analogues Allergy (Severe, Verified 08/01/25 10:53) Anaphylaxis perfume Allergy (Severe, Verified 08/01/25 10:53) swelling venom-honey bee Allergy (Severe, Verified 08/01/25 10:53) Anaphylaxis ketorolac (From Toradol) Allergy (Intermediate, Verified 08/01/25 10:53) Nausea bee pollen Allergy (Verified 08/01/25 10:53) Anaphylaxis codeine Allergy (Verified 08/01/25 10:53) Anaphylaxis niacin Allergy (Verified 08/01/25 10:53) Angioedema oxycodone HCl (From Percocet) Allergy (Verified 08/01/25 10:53) Anaphylaxis propoxyphene napsylate (From Darvocet-N) Allergy (Verified 08/01/25 10:53) Angioedema simvastatin (From Zocor) Allergy (Verified 08/01/25 10:53) Angioedema adhesive Adverse Reaction (Severe, Verified 08/01/25 10:53) Other hydromorphone (From Dilaudid) Adverse Reaction (Mild, Verified 08/01/25 10:53) Other Medications ???Medication ???Instructions ???Recorded ???Confirmed ???Type disability placard #1 ea 11/13/20 08/01/25 Rx multivita (more content not included)... Normal [facility] Phosphoruson 08-01-2025 Phosphate [Mass/Vol] 3.8 mg/dL Normal 2.7-4.5 [facility] Comment on above: Performed By: #### L 500.3400, L500.4100 #### [facility] Laboratory [address] [place], [address] Platelet countOrdered By: Poonam Peterson on 08-01-2025 Platelets (Bld) [#/Vol] 419 10*3/uL 150-450 [facility] RBC Auto (Bld) [#/Vol]Ordere d By: Cy Peterson on 08-01-2025 RBC (Bld) [#/Vol] 4.36 10*6/uL 4.2-5.4 [facility] Retic Panelon 08-01-2025 IM RET FRACTION 12.20 Normal 3.00-15.90 [facility] Comment on above: Performed By: #### L 500.3400, L500.4100 #### [facility] Laboratory [address] [place], [address] RET-HE 32.9 pg Normal 30-35 [facility] Comment on above: Performed By: #### L 500.3400, L500.4100 #### [facility] [address] [place], [address] Retic Count 2.10 High 0.5-1.5 [facility] Comment on above: Performed By: #### L 500.3400, L500.4100 #### [facility] [address] [place], [address] Reticulocyte hemoglobin equi valent (RET-He) measurementOrdered By: Cy Peterson on 08-01-2025 Hemoglobin (Reticulocytes) [Entitic mass] 32.9 pg 30-35 [facility] Reticulocytes Auto (Bld) [#/ Vol]Ordered By: Cy Peterson on 08-01-2025 Reticulocytes/100 RBC (Bld) 2.10 % High 0.5-1.5 [facility] Vitamin B12on 08-01-2025 Cobalamin (Vitamin B12) [Mass/Vol] 241 pg/mL Normal 180-914 [facility] Comment on above: Performed By: #### L 500.3400, L500.4100 #### [facility] [address] [place], [address] White blood cell (WBC) count Ordered By: Cy Peterson on 08-01-2025 WBC (Bld) [#/Vol] 8.3 10*3/uL 4.4-11.0 [facility] Cardiology Visit Reporton Cardiology Visit Report [facility] [address] [place] [address] OFFICE VISIT Date of Service: 07/27/25 MR#: [id number] Acct: [id number] Name: LEEANN CROCKETT CHAZ Rep #: [id number] : 1960 Provider: GINO sesay Age/Sex: 65/F [place] [facility] [place] Status: Signed HPI HPI History of [...] a strong family history of coronary artery disease. She has hyperlipidemia which is well-controlled. She quit smoking in 1995 her blood pressure is well-controlled and she is not diabetic. Patient has a history of paroxysmal atrial fibrillation that has been well-controlled on combination of flecainide and diltiazem. Patient's 24-hour Holter monitor from 05/11/2025 demonstrated normal sinus rhythm with an average heart rate of 72 bpm. VE 0.0%, SVE 0.0%, atrial fibrillation 0.0%. From a cardiac standpoint, the patient is doing well. She does acknowledge occasional palpitations with "working too hard". She does acknowledge occasional chest tightness with "over doing it", and occasional heart burn. She states that the antacids work. She denies any chest pain, pressure or heaviness. She does acknowledge SOB with again "over doing it". She denies Orthopnea, and PND. She does not have bleeding issues; no blood in urine, stool, or nosebleeds. She does acknowledge fatigue-easily. She denies myalgias, or claudication. She does not have edema, or sudden weight gain. She does acknowledge dizziness. She states the room is "wavy". She states this can be constant and intermittent. She denies lightheadedness, syncopal or near syncopal episodes, and headaches. Intake Vital Signs 04/26/25 13:01 05/28/25 07:36 07/27/25 07:41 07/27/25 07:44 07/27/25 08:48 Height 5 ft 2 in 5 ft 2 in 5 ft 2 in 5 ft 2 in 5 ft 2 in Weight: 162 lb BMI 29.6 BP 125/80 H Blood Pressure Location Lt brachial Position Sitting Respiration 18 Pulse 76 Pulse Source Monitor Pulse Oximetry (%) 98 Oxygen Delivery Method room air Intake Visit Reasons: 3 M FU Continuous Improvement Specialist Required: No Is patient in pain?: No Allergies dog dander Allergy (Severe, Verified 07/27/25 09:22) Swelling Opioids - Morphine Analogues Allergy (Severe, Verified 07/27/25 09:22) Anaphylaxis perfume Allergy (Severe, Verified 07/27/25 09:22) swelling venom-honey bee Allergy (Severe, Verified 07/27/25 09:22) Anaphylaxis ketorolac (From Toradol) Allergy (Intermediate, Verified 07/27/25 09:22) Nausea bee pollen Allergy (Verified 07/27/25 09:22) Anaphylaxis codeine Allergy (Verified 07/27/25 09:22) Anaphylaxis niacin Allergy (Verified 07/27/25 09:22) Angioedema oxycodone HCl (From Percocet) Allergy (Verified 07/27/25 09:22) Anaphylaxis propoxyphene napsylate (From Darvocet-N) Allergy (Verified 07/27/25 09:22) Angioedema simvastatin (From Zocor) Allergy (Verified 07/27/25 09:22) Angioedema adhesive Adverse Reaction (Severe, Verified 07/27/25 09:22) Other hydromorphone (From Dilaudid) Adverse Reaction (Mild, Verified 07/27/25 09:22) Other Medications ???Medication ???Instructions ???Recorded ???Confirmed ???Type disability placard #1 ea 11/13/20 07/27/25 Rx multivitamin (Daily Multi-Vitamin 1 tab PO DAILY 12/16/23 07/27/25 History tablet) apixaban 5 mg tablet (Eliquis) 5 mg PO BID #180 tabs 11/06/2401/16 Rx diltiazem HCl 240 mg 240 mg PO DAILY #90 caps 11/06/24 07/27/25 Rx capsule,extended release 24 hr ezetimibe 10 mg tablet 10 mg PO DAILY #90 tabs 11/06/24 1 Rx flecainide 100 mg tablet 100 mg PO Q12H #180 tabs 11/29/24 07/27/25 Rx gemfibrozil 600 mg tablet See Rx Instructions .Route 5 07/27/25 Rx .COMPLEX #180 tabs losartan 50 mg-hydrochlorothiazide 1 tab PO QDAY #90 TABLETS 07/27/25 Rx 12.5 mg tablet eszopiclone 2 mg tablet (Lunesta) 1 mg (1/2 x 2 mg) PO QHS #30 tabs 07/27/25 07/27/25 Rx sertraline 50 mg tablet 50 mg PO QDAY #30 tabs 07/27/25 Rx Ejection fraction %: 70 Have you fallen in the past year?: Yes [facility] History (Reviewed 07/27/25 @ 09:22 by Karlie Johnson OPERATIONS SUPERVISOR 2ND SHIFT, OPERATIONS SUPERVISOR 2ND SHIFT-C) Localized swelling of finger of right hand Other bursal cyst, right hand Cyst of finger Insomnia Skin mole Thrombocytosis High cholesterol Tear of medial meniscus of left knee Osteoarthritis of left knee 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 Normal [facility] Internal Medicine Office Vis iton 07-27-2025 Internal Medicine Office Visit [facility] Internal Medicine [address] [place] [address] [place] [address] OFFICE VISIT Date of Service: 07/27/25 MR#: [id number] Acct: [id number] Name: LEEANN CROCKETT Rep #: [id number] : 1960 Provider: Dr. Yennifer garza MD Age/Sex: 65/F [place] [facility] Status: Signed Intake Vital Signs 05/28/25 07:36 07/27/25 07:44 Height 5 ft 2 in 5 ft 2 in Weight: 162 lb 4 oz BMI 29.7 BP 128/68 H Blood Pressure Location Lt brachial Position Sitting Respiration 16 Pulse 75 Pulse Source Monitor Temp 97.5 F L Temp Source Temporal Pulse Oximetry (%) 99 Oxygen Delivery Method room air Intake Visit Reasons: 2 M FU Chief Complaint: fu Continuous Improvement Specialist Required: No Accompanied by: Self Is patient in pain?: No Allergies dog dander Allergy (Severe, Verified 07/27/25 09:22) Swelling Opioids - Morphine Analogues Allergy (Severe, Verified 07/27/25 09:22) Anaphylaxis perfume Allergy (Severe, Verified 07/27/25 09:22) swelling venom-honey bee Allergy (Severe, Verified 07/27/25 09:22) Anaphylaxis ketorolac (From Toradol) Allergy (Intermediate, Verified 07/27/25 09:22) Nausea bee pollen Allergy (Verified 07/27/25 09:22) Anaphylaxis codeine Allergy (Verified 07/27/25 09:22) Anaphylaxis niacin Allergy (Verified 07/27/25 09:22) Angioedema oxycodone HCl (From Percocet) Allergy (Verified 07/27/25 09:22) Anaphylaxis propoxyphene napsylate (From Darvocet-N) Allergy (Verified 07/27/25 09:22) Angioedema simvastatin (From Zocor) Allergy (Verified 07/27/25 09:22) Angioedema adhesive Adverse Reaction (Severe, Verified 07/27/25 09:22) Other hydromorphone (From Dilaudid) Adverse Reaction (Mild, Verified 07/27/25 09:22) Other Medications ???Medication ???Instructions ???Recorded ???Confirmed ???Type disability placard #1 ea 11/13/20 07/27/25 Rx multivitamin (Daily Multi-Vitamin 1 tab PO DAILY 12/16/23 07/27/25 History tablet) apixaban 5 mg tablet (Eliquis) 5 mg PO BID #180 tabs 11/06/2401/16 Rx diltiazem HCl 240 mg 240 mg PO DAILY #90 caps 11/06/24 07/27/25 Rx capsule,extended release 24 hr ezetimibe 10 mg tablet 10 mg PO DAILY #90 tabs 11/06/24 1 Rx flecainide 100 mg tablet 100 mg PO Q12H #180 tabs 11/29/24 07/27/25 Rx gemfibrozil 600 mg tablet See Rx Instructions .Route 5 07/27/25 Rx .COMPLEX #180 tabs losartan 50 mg-hydrochlorothiazide 1 tab PO QDAY #90 TABLETS 07/27/25 Rx 12.5 mg tablet eszopiclone 2 mg tablet (Lunesta) 1 mg (1/2 x 2 mg) PO QHS #30 tabs 07/27/25 07/27/25 Rx sertraline 50 mg tablet 50 mg PO QDAY #30 tabs 07/27/25 Rx Have you fallen in the past year?: No PFSH Medical History (Updated 07/27/25 @ 09:28 by Karlie Johnson NP, OPERATIONS SUPERVISOR 2ND SHIFT-C) Localized swelling of finger of right hand Other bursal cyst, right hand Cyst of finger Insomnia Skin mole Thrombocytosis High cholesterol Tear of medial meniscus [...] Brother Diabetes Aunt Cancer Social History (Reviewed (more content not included)... Normal [facility] Internal Medicine Office Vis aden 05-28-2025 Internal Medicine Office Visit [facility] [address] [place] [address] [place] [address] OFFICE VISIT Date of Service: 05/28/25 MR#: [id number] Acct: [id number] Name: LEEANN CROCKETT Rep #: [id number] : 1960 Provider: Dr. Yennifer garza MD Age/Sex: 65/F [place] [facility] Status: Signed Intake Vital Signs 07/10/24 14:39 05/28/25 07:36 Height 5 ft 2 in 5 ft 2 in Weight: 158 lb BMI 28.9 BP 120/68 Blood Pressure Location Lt brachial Position Sitting Respiration 16 Pulse 72 Pulse Source Monitor Temp 97 F L Temp Source Temporal Pulse Oximetry (%) 98 Oxygen Delivery Method room air Intake Visit Reasons: MED FU Chief Complaint: fu Continuous Improvement Specialist Required: No Accompanied by: Self Is patient in pain?: No Allergies dog dander Allergy (Severe, Verified 05/28/25 07:32) Swelling Opioids - Morphine Analogues Allergy (Severe, Verified 05/28/25 07:32) Anaphylaxis perfume Allergy (Severe, Verified 05/28/25 07:32) swelling venom-honey bee Allergy (Severe, Verified 05/28/25 07:32) Anaphylaxis ketorolac (From Toradol) Allergy (Intermediate, Verified 05/28/25 07:32) Nausea bee pollen Allergy (Verified 05/28/25 07:32) Anaphylaxis codeine Allergy (Verified 05/28/25 07:32) Anaphylaxis niacin Allergy (Verified 05/28/25 07:32) Angioedema oxycodone HCl (From Percocet) Allergy (Verified 05/28/25 07:32) Anaphylaxis propoxyphene napsylate (From Darvocet-N) Allergy (Verified 05/28/25 07:32) Angioedema simvastatin (From Zocor) Allergy (Verified 05/28/25 07:32) Angioedema adhesive Adverse Reaction (Severe, Verified 05/28/25 07:32) Other hydromorphone (From Dilaudid) Adverse Reaction (Mild, Verified 05/28/25 07:32) Other Medications ???Medication ???Instructions ???Recorded ???Confirmed ???Type disability placard #1 ea 11/13/20 05/28/25 Rx multivitamin (Daily Multi-Vitamin 1 tab PO DAILY 12/16/23 05/28/25 History tablet) apixaban 5 mg tablet (Eliquis) 5 mg PO BID #180 tabs 11/06/2402/16 Rx diltiazem HCl 240 mg 240 mg PO DAILY #90 caps 11/06/24 05/28/25 Rx capsule,extended release 24 hr ezetimibe 10 mg tablet 10 mg PO DAILY #90 tabs 11/06/24 0 05/28/25 Rx flecainide 100 mg tablet 100 mg PO Q12H #180 tabs 11/29/24 05/28/25 Rx gemfibrozil 600 mg tablet See Rx Instructions .Route 5 05/28/25 Rx .COMPLEX #180 tabs losartan 50 mg-hydrochlorothiazide 1 tab PO QDAY #90 TABLETS 05/28/25 Rx 12.5 mg tablet Have you fallen in the past year?: No Nurse's Note: everything going well concerned with some spots and mole would like them looked at [facility] Medical History (Updated 05/28/25 @ 08:[address] Yennifer Johnson MD) Insomnia Skin mole Thrombocytosis High cholesterol Tear of medial meniscus [...] used how long ago did patient quit smoking: (more content not included)... Normal [facility] Echocardiogram study reportO rdered By: Imtiaz Mccracken on 05-14-2025 Study report [facility] [address] [place] [address] Echo Complete 05/12/25 0803 MR#: [id number] Acct: [id number] Name: LEEANN CROCKETT Rep #:[id number] : 1960 65 From: Imtiaz Silva Attending Dr: Karlie Johnson, GINO S tatus: REG CLI Ordering Dr: Karlie Johnson NP, NP-Dashawn Loki e: 05/12/25 Location: [facility] Sex: F C Admitted: Reason For Study Reason For Study: PAROXYSMAL A-FIB Procedure This was a 2D Doppler, Color Flow transthoracic echocardiogram. Exam performed in department. Left Ventricle Normal LV size. Left ventricular systolic function is normal. The left ventricular ejection fraction is 65 %. No regional wall motion abnormalities noted. Right Ventricle Normal RV size. Normal systolic function. Atria Normal left atrium. Normal right atrium. Mitral Valve Normal mitral valve. Tricuspid Valve Normal tricuspid valve. Mild (1+) tricuspid valve insufficiency. Pulmonary artery systolic pressure is 24 mmHg. Aortic Valve Trisinus/trileaflet aortic valve. Pulmonic Valve Normal pulmonic valve. Mild (1+) pulmonic valve insufficiency. Great Vessels Normal aortic root. The pulmonary artery is normal size. Inferior vena cava collapse with respiration. Pericardium/Pleural No pericardial effusion. MMode/2D Measurements & Calculations LVIDd: 5.0 cm IVSd: 0.83 cm Ao root diam: 3.0 cm LVIDs: 2.9 cm LVPWd: 0.94 cm RVDd: 2.8 cm FS: 40.8 % LAV(MOD-sp4): 28.7 ml LVAd ap4: 21.0 cm2 LVAd ap2: 17.8 cm2 LVLd ap4: 6.4 cm LVLd ap2: 6.3 cm EDV(MOD-sp4): 56.4 ml EDV(MOD-sp2): 42.3 ml EDV(sp4-el): 58.1 ml EDV(sp2-el): 42.6 ml LVAs ap4: 11.4 cm2 LVAs ap2: 9.4 cm2 LVLs ap4: 5.2 cm LVLs ap2: 5.0 cm ESV(MOD-sp4): 20.1 ml ESV(MOD-sp2): 14.5 ml ESV(sp4-el): 21.0 ml ESV(sp2-el): 15.0 ml EF(MOD-sp4): 64.4 % EF(MOD-sp2): 65.8 % EF(sp4-el): 63.9 % SV(MOD-sp4): 36.3 ml SV(MOD-sp2): 27.8 ml SV(sp4-el): 37.1 ml SI(MOD-sp4): 21.0 ml/m2 SI(MOD-sp2): 16.1 ml/m2 LA A4 area: 12.1 cm2 LA dimension(2D): 3.0 cm RA A4 area: 10.7 cm2 TAPSE: 1.9 cm Time Measurements MV dec time: 0.14 sec Doppler Measurements & Calculations MV E max yamileth: 49.1 cm/sec Lat Peak E' Yamileth: 13.2 cm/sec Med Peak E' Yamileth: 11.5 cm/sec MV A max yamileth: 38.1 cm/sec E/E' lat: 3.7 E/E' med: 4.3 MV E/A: 1.3 MV V2 max: 78.7 cm/sec MV P1/2t max yamileth: 76.6 cm/sec Ao V2 max: 100.2 cm/sec MV max P.5 mmHg MV P1/2t: 48.5 msec Ao max P.0 mmHg MV V2 mean: 37.0 cm/sec Ao V2 mean: 70.0 cm/sec MV mean P.72 mmHg MV dec slope: 462.5 cm/sec2 Ao mean P.1 mmHg MV V2 VTI: 17.8 cm MVA(P1/2t): 4.5 cm2 Ao V2 VTI: 22.8 cm AV (velocity ratio): 1.1 AI max yamileth: 336.9 cm/sec LV V1 max: 96.1 cm/sec PA V2 max: 106.2 cm/sec AI max P.4 mmHg LV V1 max P.7 mmHg PA V2 mean: 68.0 cm/sec LV V1 mean P.0 mmHg PA V2 VTI: 20.5 cm AI dec slope: 161.6 cm/sec2 LV V1 mean: 66.1 cm/sec AI P1/2t: 610.7 msec LV V1 VTI: 24.0 cm TR max yamileth: 226.6 cm/sec PI dec slope: 130.9 cm/sec2 TR max P.5 mmHg ECHO/Echo Complete Interpretation Summary Normal LV size. Left ventricular systolic function is normal. The left ventricular ejection fraction is 65 %. Structurally normal valves. Ordering Physician: Karlie Johnson Referring Physician: Yennifer Johnson Performed By: Mariia Forrest, MARIECS, RVT 05/14/25739 Date _ Imtiaz Mccracken MD CC: OPERATIONS SUPERVISOR 2ND SHIFT-C Karlie Johnson; Dr. Yennifer Johnson MD ~ Date Dictated: 05/12/25 08 Date Transcribed: 05/14/25739 Pomologist: Signed [facility] Work Phone: Echo Completeon 05-12-2025 Echo Complete [facility] [address] [place] [address] Echo Complete 05/12/25 0803 MR#: [id number] Acct: [id number] Name: LEEANN CROCKETT Rep #: [id number] : 1960 65 From: Imtiaz Mccracken MD Attending Dr: Karlie Johnson NP-C Status: REG C Ordering Dr: Karlie Johnson NP OPERATIONS SUPERVISOR 2ND SHIFT-C Date: 05/12/25 Location: [facility] Sex: F C Admitted: Reason For Study Reason For Study: PAROXYSMAL A-FIB Procedure This was a 2D Doppler, Color Flow transthoracic echocardiogram. Exam performed in department. Left Ventricle Normal LV size. Left ventricular systolic function is normal. The left ventricular ejection fraction is 65 %. No regional wall motion abnormalities noted. Right Ventricle Normal RV size. Normal systolic function. Atria Normal left atrium. Normal right atrium. Mitral Valve Normal mitral valve. Tricuspid Valve Normal tricuspid valve. Mild (1+) tricuspid valve insufficiency. Pulmonary artery systolic pressure is 24 mmHg. Aortic Valve Trisinus/trileaflet aortic valve. Pulmonic Valve Normal pulmonic valve. Mild (1+) pulmonic valve insufficiency. Great Vessels Normal aortic root. The pulmonary artery is normal size. Inferior vena cava collapse with respiration. Pericardium/Pleural No pericardial effusion. MMode/2D Measurements Calculations LVIDd: 5.0 cm IVSd: 0.83 cm Ao root diam: 3.0 cm LVIDs: 2.9 cm LVPWd: 0.94 cm RVDd: 2.8 cm FS: 40.8 % LAV(MOD-sp4): 28.7 ml LVAd ap4: 21.0 cm2 LVAd ap2: 17.8 cm2 LVLd ap4: 6.4 cm LVLd ap2: 6.3 cm EDV(MOD-sp4): 56.4 ml EDV(MOD-sp2): 42.3 ml EDV(sp4-el): 58.1 ml EDV(sp2-el): 42.6 ml LVAs ap4: 11.4 cm2 LVAs ap2: 9.4 cm2 LVLs ap4: 5.2 cm LVLs ap2: 5.0 cm ESV(MOD-sp4): 20.1 ml ESV(MOD-sp2): 14.5 ml ESV(sp4-el): 21.0 ml ESV(sp2-el): 15.0 ml EF(MOD-sp4): 64.4 % EF(MOD-sp2): 65.8 % EF(sp4-el): 63.9 % SV(MOD-sp4): 36.3 ml SV(MOD-sp2): 27.8 ml SV(sp4-el): 37.1 ml SI(MOD-sp4): 21.0 ml/m2 SI(MOD-sp2): 16.1 ml/m2 LA A4 area: 12.1 cm2 LA dimension(2D): 3.0 cm RA A4 area: 10.7 cm2 TAPSE: 1.9 cm Time Measurements MV dec time: 0.14 sec Doppler Measurements Calculations MV E max yamileth: 49.1 cm/sec Lat Peak E' Yamileth: 13.2 cm/sec Med Peak E' Yamileth: 11.5 cm/sec MV A max yamileth: 38.1 cm/sec E/E' lat: 3.7 E/E' med: 4.3 MV E/A: 1.3 MV V2 max: 78.7 cm/sec MV P1/2t max yamileth: 76.6 cm/sec Ao V2 max: 100.2 cm/sec MV max P.5 mmHg MV P1/2t: 48.5 msec Ao max P.0 mmHg MV V2 mean: 37.0 cm/sec Ao V2 mean: 70.0 cm/sec MV mean P.72 mmHg MV dec slope: 462.5 cm/sec2 Ao mean P.1 mmHg MV V2 VTI: 17.8 cm MVA(P1/2t): 4.5 cm2 Ao V2 VTI: 22.8 cm AV (velocity ratio): 1.1 AI max yamileth: 336.9 cm/sec LV V1 max: 96.1 cm/sec PA V2 max: 106.2 cm/sec AI max P.4 mmHg LV V1 max P.7 mmHg PA V2 mean: 68.0 cm/sec LV V1 mean P.0 mmHg PA V2 VTI: 20.5 cm AI dec slope: 161.6 cm/sec2 LV V1 mean: 66.1 cm/sec AI P1/2t: 610.7 msec LV V1 VTI: 24.0 cm TR max yamileth: 226.6 cm/sec PI dec slope: 130.9 cm/sec2 TR max P.5 mmHg ECHO/Echo Complete Interpretation Summary Normal LV size. Left ventricular systolic function is normal. The left ventricular ejection fraction is 65 %. Structurally normal valves. Ordering Physician: Karlie Johnson Referring Physician: Yennifer Johnson Performed By: Mariia Forrest, MARIECS, RVT 05/14/25739 Date Imtiaz Mccracken MD CC: IGNO Johnson; Dr. Yennifer Johnson MD Date Dictated: 05/12/25802 Date Transcribed: 05/14/25739 Pomologist: Signed Karol [facility] Oncology Visit Reporton Oncology Visit Report [facility] [place] [address] OFFICE VISIT Date of Service: 05/02/25 09 MR#: [id number] Acct: [id number] Name: LEEANN CROCKETT Rep #: [id number] : 1960 From: Cy Peterson MD Age/Sex: 65/F [place] [facility] [place]: Signed HPI Subjective Date of Service 05/02/25 Chief Complaint Referred for thrombocytosis. History of Present Illness 65y.o.woman was found to slight elevation of PLT and referred for evaluation. She denies bleeding disorders, anemia. [facility] Medical History Thrombocytosis High cholesterol Tear of [...] Brother Diabetes Aunt Cancer Social History (Reviewed 05/02/25 @ 09:07 by Shahla Barron Smoking Status: Former smoker quit date: 06/25/96 [...] room air (more content not included)... Normal [facility] Absolute lymphocyte countOrd ered By: Karlie Johnson on 04-26-2025 Lymphocytes Auto (Unsp spec) [#/Vol] 1.90 10*3/uL 0.83-4.51 [facility] Absolute neutrophil countOrd ered By: Karlie Johnson on 04-26-2025 Neutrophils (Bld) [#/Vol] 7.6 10*3/uL 2.0-7.7 [facility] Anion gap in Serum or Plasma Ordered By: Karlie Johnson on 04-26-2025 Anion gap [Moles/Vol] 11 mmol/L 5-15 [facility] Automated lymphocyte count a s percentage of total leukocytesOrdered By: Karlie Johnson on 04-26-2025 Lymphocytes/100 WBC Auto (Unsp spec) 17.5 % Low 19-41 [facility] BUN/creatinine ratioOrdered By: Karlie Johnson on 04-26-2025 Urea nitrogen/Creatinine [Mass ratio] 21.2 mg/mg High 10-20 [facility] Basic Metabolic Profile (BMP )on 04-26-2025 BUN/CRE 21.2 RATIO High 10-20 [facility] Comment on above: Performed By: #### L 501.5200, L501.9520, L503.7505, L100.0100, L500.2500 #### [facility] [address] [place], [address] Calcium [Mass/Vol] 9.8 mg/dL Normal 7.6-11.0 [facility] Comment on above: Performed By: #### L 501.5200, L501.9520, L503.7505, L100.0100, L500.2500 #### [facility] [address] [place], [address] Chloride [Moles/Vol] 102 mmol/L Normal 98-108 [facility] Comment on above: Performed By: #### L 501.5200, L501.9520, L503.7505, L100.0100, L500.2500 #### [facility] [address] [place], [address] CO2 [Moles/Vol] 26.5 mmol/L Normal 21.0-32.0 [facility] Comment on above: Performed By: #### L 501.5200, L501.9520, L503.7505, L100.0100, L500.2500 #### [facility] [address] [place], [address] Creatinine [Mass/Vol] 0.87 mg/dL Normal 0.70-1.20 [facility] Comment on above: Performed By: #### L 501.5200, L501.9520, L503.7505, L100.0100, L500.2500 #### [facility] [address] [place], [address] GAP 11 Normal 5-15 [facility] Comment on above: Performed By: #### L 501.5200, L501.9520, L503.7505, L100.0100, L500.2500 #### [facility] [address] [place], [address] GFR/1.73 sq M.predicted among non-blacks MDRD (S/P/Bld) [Vol rate/Area] 74 mL/min/{1.73_m2} Normal >60 [facility] Comment on above: Result Comment: mL/m in/1.73m2 CKD-EPI Creatinine Equation (2020) Performed By: #### L 501.5200, L501.9520, L503.7505, L100.0100, L500.2500 #### [facility] [address] [place], [address] Glucose [Mass/Vol] 97 mg/dL Normal 70-99 [facility] Comment on above: Performed By: #### L 501.5200, L501.9520, L503.7505, L100.0100, L500.2500 #### [facility] [address] [place], [address] Potassium [Moles/Vol] 3.7 mmol/L Normal 3.3-5.1 [facility] Comment on above: Performed By: #### L 501.5200, L501.9520, L503.7505, L100.0100, L500.2500 #### [facility] [address] [place], [address] Sodium [Moles/Vol] 139 mmol/L Normal 133-145 [facility] Comment on above: Performed By: #### L 501.5200, L501.9520, L503.7505, L100.0100, L500.2500 #### [facility] [address] [place], [address] Urea nitrogen [Mass/Vol] 18 mg/dL Normal 4-19 [facility] Comment on above: Performed By: #### L 501.5200, L501.9520, L503.7505, L100.0100, L500.2500 #### [facility] [address] [place], [address] Basophil percentageOrdered B y: Karlie Johnson on 04-26-2025 Basophils/100 WBC (Bld) 0.7 % 0-1 [facility] CBC W/Diff, Automatedon Absolute Lymph 1.90 X10 3/uL Normal 0.83-4.51 [facility] Comment on above: Performed By: #### L 501.5200, L501.9520, L503.7505, L100.0100, L500.2500 #### [facility] [address] [place], [address] Absolute Neut 7.6 X10 3/uL Normal 2.0-7.7 [facility] Comment on above: Performed By: #### L 501.5200, L501.9520, L503.7505, L100.0100, L500.2500 #### [facility] [address] [place], [address] Basophils/100 WBC (Bld) 0.7 % Normal 0-1 [facility] Comment on above: Performed By: #### L 501.5200, L501.9520, L503.7505, L100.0100, L500.2500 #### [facility] [address] [place], [address] Eosinophils/100 WBC (Bld) 2.2 % Normal 0-5 [facility] Comment on above: Performed By: #### L 501.5200, L501.9520, L503.7505, L100.0100, L500.2500 #### [facility] [address] [place], [address] Erythrocyte distribution width (RBC) [Ratio] 12.4 % Normal 11.6-14.6 [facility] Comment on above: Performed By: #### L 501.5200, L501.9520, L503.7505, L100.0100, L500.2500 #### [facility] [address] [place], [address] Hematocrit (Bld) [Volume fraction] 38.2 % Normal 37-47 [facility] Comment on above: Performed By: #### L 501.5200, L501.9520, L503.7505, L100.0100, L500.2500 #### [facility] [address] [place], [address] Hemoglobin (Bld) [Mass/Vol] 12.6 g/dL Normal 12.0-15.0 [facility] Comment on above: Performed By: #### L 501.5200, L501.9520, L503.7505, L100.0100, L500.2500 #### [facility] [address] [place], [address] IG% 0.600 Normal 0.0-0.9 [facility] Comment on above: Result Comment: IG% - Immature Granulocytes (promyelocytes, myelocytes and metamyelocytes) > 1% indicates that a LEFT SHIFT is Present. Performed By: #### L 501.5200, L501.9520, L503.7505, L100.0100, L500.2500 #### [facility] [address] [place], [address] Lymphocytes/100 WBC (Bld) 17.5 % Low 19-41 [facility] Comment on above: Performed By: #### L 501.5200, L501.9520, L503.7505, L100.0100, L500.2500 #### [facility] [address] [place], [address] MCH (RBC) [Entitic mass] 29.9 pg Normal 27.0-32.0 [facility] Comment on above: Performed By: #### L 501.5200, L501.9520, L503.7505, L100.0100, L500.2500 #### [facility] [address] [place], [address] MCHC (RBC) [Mass/Vol] 33.0 g/dL Normal 32-36 [facility] Comment on above: Performed By: #### L 501.5200, L501.9520, L503.7505, L100.0100, L500.2500 #### [facility] [address] [place], [address] MCV (RBC) [Entitic vol] 90.7 fL Normal 81-99 [facility] Comment on above: Performed By: #### L 501.5200, L501.9520, L503.7505, L100.0100, L500.2500 #### [facility] [address] [place], [address] Monocytes/100 WBC (Bld) 9.1 % Normal 0-10 [facility] Comment on above: Performed By: #### L 501.5200, L501.9520, L503.7505, L100.0100, L500.2500 #### [facility] [address] [place], [address] Neutrophils/100 WBC (Bld) 69.9 % Normal 47-70 [facility] Comment on above: Performed By: #### L 501.5200, L501.9520, L503.7505, L100.0100, L500.2500 #### [facility] [address] [place], [address] Nucleated RBC (Bld) [#/Vol] 0 10*3/uL Normal 0-5 [facility] Comment on above: Performed By: #### L 501.5200, L501.9520, L503.7505, L100.0100, L500.2500 #### [facility] [address] [place], [address] Platelet mean volume (Bld) [Entitic vol] 10.0 fL Normal 6.2-12.0 [facility] Comment on above: Performed By: #### L 501.5200, L501.9520, L503.7505, L100.0100, L500.2500 #### [facility] [address] [place], [address] Platelets (Bld) [#/Vol] 521 10*3/uL High 150-450 [facility] Comment on above: Performed By: #### L 501.5200, L501.9520, L503.7505, L100.0100, L500.2500 #### [facility] [address] [place], [address] RBC (Bld) [#/Vol] 4.21 10*6/uL Normal 4.2-5.4 [facility] Comment on above: Performed By: #### L 501.5200, L501.9520, L503.7505, L100.0100, L500.2500 #### [facility] [address] [place], [address] RDW SD 40.5 fl Normal 35.1-43.9 [facility] Comment on above: Performed By: #### L 501.5200, L501.9520, L503.7505, L100.0100, L500.2500 #### [facility] [address] [place], [address] WBC (Bld) [#/Vol] 10.9 10*3/uL Normal 4.4-11.0 [facility] Comment on above: Performed By: #### L 501.5200, L501.9520, L503.7505, L100.0100, L500.2500 #### [facility] [address] [place], [address] Carbon dioxide, total [Moles /volume] in Central venous bloodOrdered By: Karlie Johnson on 04-26-2025 CO2 [Moles/Vol] 26.5 mmol/L 21.0-32.0 [facility] Cardiology Visit Reporton Cardiology Visit Report [facility] 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 Normal [facility] Chloride assayOrdered By: Tarik Johnson on 04-26-2025 Chloride [Moles/Vol] 102 mmol/L 98-108 [facility] Eosinophil percentageOrdered By: Karlie Johnson on 04-26-2025 Eosinophils/100 WBC (Bld) 2.2 % 0-5 [facility] Erythrocyte distribution wid th ratioOrdered By: Karlie Johnson on 04-26-2025 Erythrocyte distribution width (RBC) [Ratio] 12.4 % 11.6-14.6 [facility] Erythrocyte distribution wid th standard deviationOrdered By: Karlie Johnson on 04-26-2025 Erythrocyte distribution width (RBC) [Ratio] 40.5 fl 35.1-43.9 [facility] Glomerular filtration rate ( GFR) estimation/1.73 sq m using serum, plasma, or whole bOrdered By: Karlie Johnson on 04-26-2025 GFR/1.73 sq M.predicted among non-blacks MDRD (S/P/Bld) [Vol rate/Area] 74 mL/min/{1.73_m2} >60 [facility] Comment on above: mL/min/1.73m2 CKD-EP I Creatinine Equation (2020) Hematocrit Auto (Bld) [Volum e fraction]Ordered By: Karlie Johnson on 04-26-2025 Hematocrit (Bld) [Volume fraction] 38.2 % 37-47 [facility] Hemoglobin measurementOrdere d By: Karlie Johnson on 04-26-2025 Hemoglobin (Bld) [Mass/Vol] 12.6 g/dL 12.0-15.0 [facility] Immature granulocytes/100 WB C Auto (Bld)Ordered By: Karlie Johnson on 04-26-2025 Immature granulocytes/100 WBC (Bld) 0.600 % 0.0-0.9 [facility] Comment on above: IG% - Immature Granu locytes (promyelocytes, myelocytes and metamyelocytes) > 1% indicates that a LEFT SHIFT is Present. Iron measurement (mass/mass) Ordered By: Yennifer Johnson on 04-26-2025 Iron (Unsp spec) [Mass/Mass] 65 ug/dL 50-170 [facility] L503.7505on 04-26-2025 proBNP < 36 Normal <=900 [facility] Comment on above: Result Comment: Hear t Failure Unlikely: < 300 pg/mL Heart Failure Likely < 50 Years: > 450 pg/mL 50-75 Years: > 900 pg/mL >75 Years: > 1800 pg/mL Performed By: #### L 501.5200, L501.9520, L503.7505, L100.0100, L500.2500 #### [facility] [address] [place], [address] MCV (mean corpuscular volume ) determinationOrdered By: Karlie Johnson on 04-26-2025 MCV (RBC) [Entitic vol] 90.7 fL 81-99 [facility] Magnesiumon 04-26-2025 Magnesium [Mass/Vol] 2.5 mg/dL High 1.5-2.2 [facility] Comment on above: Performed By: #### L 501.5200, L501.9520, L503.7505, L100.0100, L500.2500 #### [facility] [address] [place], [place], [address] Magnesium measurement (mass/ volume)Ordered By: Karlie Johnson on 04-26-2025 Magnesium (Unsp spec) [Mass/Vol] 2.5 mg/dL High 1.5-2.2 [facility] Mean corpuscular hemoglobin (MCH) determinationOrdered By: Karlie Johnson on 04-26-2025 MCH (RBC) [Entitic mass] 29.9 pg 27.0-32.0 [facility] Mean corpuscular hemoglobin concentration (MCHC) determinationOrdered By: Karlie Johnson on 04-26-2025 MCHC (RBC) [Mass/Vol] 33.0 g/dL 32-36 [facility] Mean platelet volume determi nationOrdered By: Karlie Johnson on 04-26-2025 Platelet mean volume (Bld) [Entitic vol] 10.0 fL 6.2-12.0 [facility] Monocyte percentageOrdered B y: Karlie Johnson on 04-26-2025 Monocytes/100 WBC (Bld) 9.1 % 0-10 [facility] Natriuretic peptide.B prohor franklyn N-Terminal [Mass/volume] in Serum or PlasmaOrdered By: Karlie Johnson on 04-26-2025 Natriuretic peptide.B prohormone N-Terminal [Mass/Vol] < 36 pg/mL <900 [facility] Comment on above: Heart Failure Unlike ly: < 300 pg/mLHeart Failure Likely< 50 Years: > 450 pg/mL50-75 Years: > 900 pg/mL>75 Years: > 1800 pg/mL Neutrophil percentageOrdered By: Karlie Johnson on 04-26-2025 Neutrophils/100 WBC (Bld) 69.9 % 47-70 [facility] No Panel InformationOrdered By: Yennifer Johnson on 04-26-2025 Unsaturated Iron Binding Capacity 356 ug/dL 228-428 [facility] Nucleated red blood cell per centageOrdered By: Karlie Johnson on 04-26-2025 Nucleated RBC/100 WBC (Bld) [Ratio] 0 % 0-5 [facility] Platelet countOrdered By: Tarik Johnson on 04-26-2025 Platelets (Bld) [#/Vol] 521 10*3/uL High 150-450 [facility] Potassium measurement (mass/ volume)Ordered By: Karlie Johnson on 04-26-2025 Potassium (Unsp spec) [Mass/Vol] 3.7 mmol/L 3.3-5.1 [facility] RBC Auto (Bld) [#/Vol]Ordere d By: Karlie Johnson on 04-26-2025 RBC (Bld) [#/Vol] 4.21 10*6/uL 4.2-5.4 [facility] Serum creatinine measurement (mass/volume)Ordered By: Karlie Johnson on 04-26-2025 Creatinine [Mass/Vol] 0.87 mg/dL 0.70-1.20 [facility] Serum glucose measurement (m ass/volume)Ordered By: Karlie Johnson on 04-26-2025 Glucose [Mass/Vol] 97 mg/dL 70-99 [facility] Serum or plasma calcium kyree urement (mass/volume)Ordered By: Karlie Johnson on 04-26-2025 Calcium [Mass/Vol] 9.8 mg/dL 7.6-11.0 [facility] Serum or plasma ferritin terri surement (mass/volume)Ordered By: Yennifer Johnson on 04-26-2025 Ferritin [Mass/Vol] 69 ng/mL 22-378 [facility] Serum or plasma iron saturat ion measurement (mass fraction)Ordered By: Yennifer Johnson on 04-26-2025 Iron saturation [Mass fraction] 15.0 % 13-59 [facility] Serum or plasma urea nitroge n measurement (mass/volume)Ordered By: Karlie Johnson on 04-26-2025 Urea nitrogen [Mass/Vol] 18 mg/dL 4-19 [facility] Sodium levelOrdered By: Adali Johnson on 04-26-2025 Sodium [Moles/Vol] 139 mmol/L 133-145 [facility] TSH DL <= 0.005 mIU/L QnOrde red By: Karlie Johnson on 04-26-2025 TSH Qn 1.970 uIU/mL 0.300-4.200 [facility] Thyroid Stim Hormone (TSH)on 04-26-2025 TSH 1.970 uIU/mL Normal 0.300-4.200 [facility] Comment on above: Performed By: #### L 501.5200, L501.9520, L503.7505, L100.0100, L500.2500 #### [facility] [address] [place], [place], [address] White blood cell (WBC) count Ordered By: Karlie Johnson on 04-26-2025 WBC (Bld) [#/Vol] 10.9 10*3/uL 4.4-11.0 [facility] Bilirubin directOrdered By: Larry Rodriguez on 03-24-2025 Bilirubin.direct [Mass/Vol] 0.14 mg/dL 0.00-0.30 [facility] Bilirubin, totalOrdered By: Larry Rodriguez on 03-24-2025 Bilirubin [Mass/Vol] 0.32 mg/dL 0.00-1.30 [facility] Calculated very low density lipoprotein (VLDL) cholesterol measurementOrdered By: Larry Rodriguez on 03-24-2025 Calculated very low density lipoprotein (VLDL) cholesterol measurement 22 mg/dL 5-40 [facility] LDL calc ser/plasOrdered By: Larry Rodriguez on 03-24-2025 Cholesterol in LDL [Mass/Vol] 98 mg/dL [facility] Comment on above: Kshyxqnzda=169-957 m g/dL & Higher Ehme=131 mg/dL or greater Laboratory - Chemistry and C hemistry - challengeOrdered By: Larry Rodriguez on 05-31-2025 AST [Catalytic activity/Vol] 18 U/L <32 [facility] Lipid Profileon 03-24-2025 CHOL:HDL 3.42 Normal [facility] Comment on above: Performed By: #### L 500.3400, L500.4100 #### [facility] [address] [place], [address] Cholesterol [Mass/Vol] 170 mg/dL Normal <=200 [facility] Comment on above: Result Comment: Chol esterol level, Desirable <200 mg/dL Borderline high cholesterol 200-239 mg/dL High cholesterol >=240 mg/dL Recommendations of the NCEP Adult Treatment Panel for the following risk-cutoff thresholds for the [place] population. Performed By: #### L 500.3400, L500.4100 #### [facility] [address] [place], [address] Cholesterol in HDL [Mass/Vol] 50 mg/dL Normal [facility] Comment on above: Result Comment: Alexandra onal Cholesterol Education Program (NCEP) guidelines: <40 mg/dL: Low HDL-cholesterol (major risk factor for CHD) >= 60 mg/dL: High HDL-cholesterol (negative risk factor for CHD) HDL-cholesterol is affected by a number of factors, e.g. smoking, exercise, hormones, sex and age. Performed By: #### L 500.3400, L500.4100 #### [facility] [address] [place], [address] Cholesterol in LDL [Mass/Vol] 98 mg/dL Normal [facility] Comment on above: Result Comment: Bord luvcoi=978-134 mg/dL Higher Mouz=351 mg/dL or greater Performed By: #### L 500.3400, L500.4100 #### [facility] [address] [place], [address] Cholesterol in VLDL [Mass/Vol] 22 mg/dL Normal 5-40 [facility] Comment on above: Performed By: #### L 500.3400, L500.4100 #### [facility] [address] [place], [address] Triglyceride [Mass/Vol] 111 mg/dL Normal [facility] Comment on above: Result Comment: The drugs N-Acetylcysteine and Metamizole may falsely depress this assay. Normal range: <150 mg/dL Borderline High: 150-199 mg/dL High: 200-499 mg/dL Very High: >500 mg/dL Performed By: #### L 500.3400, L500.4100 #### [facility] [address] [place], [address] Liver Profileon 03-24-2025 Albumin [Mass/Vol] 4.5 g/dL Normal 3.4-4.8 [facility] Comment on above: Performed By: #### L 500.3400, L500.4100 #### [facility] [address] [place], [address] ALK PHOS 79 U/L Normal 35-104 [facility] Comment on above: Performed By: #### L 500.3400, L500.4100 #### [facility] [address] [place], [address] ALT [Catalytic activity/Vol] 16 U/L Normal <=34 [facility] Comment on above: Performed By: #### L 500.3400, L500.4100 #### [facility] [address] [place], [address] AST [Catalytic activity/Vol] 18 U/L Normal <=31 [facility] Comment on above: Performed By: #### L 500.3400, L500.4100 #### [facility] [address] [place], [address] Bilirubin [Mass/Vol] 0.32 mg/dL Normal 0.00-1.30 [facility] Comment on above: Performed By: #### L 500.3400, L500.4100 #### [facility] [address] [place], [address] Bilirubin.direct [Mass/Vol] 0.14 mg/dL Normal 0.00-0.30 [facility] Comment on above: Performed By: #### L 500.3400, L500.4100 #### [facility] [address] [place], [address] Globulin (S) [Mass/Vol] 2.9 g/dL Normal 2.2-4.2 [facility] [facility] Comment on above: Performed By: #### L 500.3400, L500.4100 #### [facility] [address] [place], [address] T PROT 7.4 g/dL Normal 5.9-8.4 [facility] Comment on above: Performed By: #### L 500.3400, L500.4100 #### [facility] [address] [place], [address] Screening total cholesterol/ high density lipoprotein (HDL) cholesterol ratioOrdered By: Larry Rodriguez on 03-24-2025 Cholesterol.total/Jennifer sterol in HDL [Mass ratio] 3.42 {ratio} [facility] Serum globulin measurementOr dered By: Larry Rodriguez on 03-24-2025 Globulin (S) [Mass/Vol] 2.9 g/dL 2.2-4.2 [facility] Serum or plasma alanine castañeda otransferase (ALT) measurementOrdered By: Larry Rodriguez on 03-24-2025 ALT [Catalytic activity/Vol] 16 U/L <35 [facility] Serum or plasma albumin kyree urement (mass/volume)Ordered By: Larry Rodriguez on 03-24-2025 Albumin [Mass/Vol] 4.5 g/dL 3.4-4.8 [facility] Serum or plasma alkaline tevin sphatase measurementOrdered By: Larry Rodriguez on 03-24-2025 ALP [Catalytic activity/Vol] 79 U/L 35-104 [facility] Serum or plasma cholesterol in HDL measurement (mass/volume)Ordered By: Larry Rodriguez on 03-24-2025 Cholesterol in HDL [Mass/Vol] 50 mg/dL >40 [facility] Comment on above: National Cholesterol Education Program (NCEP) guidelines:<40 mg/dL: Low HDL-cholesterol (major risk factor for CHD)>= 60 mg/dL: High HDL-cholesterol (negative risk factor for CHD)HDL-cholesterol is affected by a number of factors, e.g. smoking, exercise, hormones, sex and age. Serum or plasma cholesterol measurement (mass/volume)Ordered By: Larry Rodriguez on 03-24-2025 Cholesterol [Mass/Vol] 170 mg/dL <201 [facility] Comment on above: Cholesterol level, D esirable <200 mg/dLBorderline high cholesterol 200-239 mg/dLHigh cholesterol >=240 mg/dLRecommendations of the NCEP Adult Treatment Panel for the following risk-cutoff thresholds for the [place] population. Total proteinOrdered By: Diallo Rodriguez on 03-24-2025 Protein [Mass/Vol] 7.4 g/dL 5.9-8.4 [facility] Triglycerides measurementOrd ered By: Larry Rodriguez on 03-24-2025 Triglyceride [Mass/Vol] 111 mg/dL <199 [facility] Comment on above: The drugs N-Acetylcy steine and Metamizole may falsely depress this assay. Normal range: <150 mg/dLBorderline High: 150-199 mg/dLHigh: 200-499 mg/dLVery High: >500 mg/dL Dexa Bone Density Studyon Dexa Bone Density Study [facility] Imaging Services [address] [place] [address] [id number] Dexa Bone Density Study MR#: [id number] Acct: [id number] Name: LEEANN CROCKETT Rep #: [id number] : 1960 F 64 From: Deandre Ricks MD PCP: Dr. Yennifer Johnson MD Status: [facility] Study: Dexa Bone Density Study Date of Exam: 10/24/24 Exam# [id number] Ordering Dr: Yennifer Johnson MD [id number] STUDY: DUAL ENERGY X-RAY ABSORPTIOMETRY / DXA [...] EST , CC: Dr. Yennifer Johnson MD Pomologist: Signed Normal [facility] SCRN MAMM (CAD)W/DARRELL BILATo n 10-24-2024 SCRN MAMM (CAD)W/DARRELL BILAT [facility] Imaging Services [address] [place] [address] SCRN MAMM (CAD)W/DARRELL BILAT MR#: [id number] Acct: [id number] Name: LEEANN CROCKETT Rep #: [id number] : 1960 F 64 From: Deandre Ricks MD PCP: Dr. Yennifer Johnson MD Status: REG [facility] Study: SCRN MAMM (CAD)W/DARRELL BILAT Date of Exam: 09/26 11/17 Exam# [id number] Ordering Dr: Yennifer Johnson MD [id number] MAMMOGRAPHY - BILATERAL SCREENING 3-D TOMOSYNTHESIS REASON [...] EST , CC: Dr. Yennifer Johnson MD Pomologist: Signed Normal [facility] Lipid Profileon 10-21-2024 Cholesterol [Mass/Vol] 184 mg/dL Normal 200 [facility] Comment on above: Result Comment: <200 mg/dL Desirable 200-240 mg/dL Borderline >240 mg/dL High Risk Performed By: #### L 500.4100, L500.3400 #### [facility] [address] [place], [address] Cholesterol in HDL [Mass/Vol] 71 mg/dL Normal [facility] Comment on above: Result Comment: The drugs N-Acetylcysteine and Metamizole may falsely depress this assay. Reference Range HDL <40 mg/dL Low HDL Cholesterol HDL >or= 60 mg/dL High HDL Cholesterol Performed By: #### L 500.4100, L500.3400 #### [facility] [address] [place], [address] Cholesterol in LDL [Mass/Vol] 102 mg/dL Normal 0-130 [facility] Comment on above: Performed By: #### L 500.4100, L500.3400 #### [facility] [address] [place], [address] Cholesterol in VLDL [Mass/Vol] 11 mg/dL Normal 5-40 [facility] Comment on above: Performed By: #### L 500.4100, L500.3400 #### [facility] [address] [place], [address] Triglyceride [Mass/Vol] 55 mg/dL Normal [facility] Comment on above: Result Comment: The drugs N-Acetylcysteine and Metamizole may falsely depress this assay. Serum Triglycerides Reference Interval Normal <150 mg/dL Borderline high 150 - 199 mg/dL High 200 - 499 mg/dL Very High > or = 500 mg/dL Performed By: #### L 500.4100, L500.3400 #### [facility] [address] [place], [address] Liver Profileon 10-21-2024 Albumin [Mass/Vol] 3.7 g/dL Normal 3.2-5.0 [facility] Comment on above: Performed By: #### L 500.4100, L500.3400 #### [facility] [address] [place], [address] ALK P 90 U/L Normal 45-117 [facility] Comment on above: Performed By: #### L 500.4100, L500.3400 #### [facility] [address] [place], [address] ALT [Catalytic activity/Vol] 17 U/L Normal 13-56 [facility] Comment on above: Performed By: #### L 500.4100, L500.3400 #### [facility] [address] [place], [address] AST [Catalytic activity/Vol] 14 U/L Low 15-37 [facility] Comment on above: Performed By: #### L 500.4100, L500.3400 #### [facility] [address] [place], [address] Bilirubin [Mass/Vol] 0.40 mg/dL Normal 0.20-1.00 [facility] Comment on above: Result Comment: For patients on eltrombopag therapy, use of Dimension Oxford TBIL is not recommended. Performed By: #### L 500.4100, L500.3400 #### [facility] [address] [place], [address] Bilirubin.direct [Mass/Vol] 0.14 mg/dL Normal 0.00-0.30 [facility] Comment on above: Performed By: #### L 500.4100, L500.3400 #### [facility] [address] [place], [address] Globulin (S) [Mass/Vol] 4.0 g/dL Normal 2.2-4.2 [facility] Comment on above: Performed By: #### L 500.4100, L500.3400 #### [facility] [address] [place], [address] T PROT 7.7 g/dL Normal 6.4-8.2 [facility] Comment on above: Performed By: #### L 500.4100, L500.3400 #### [facility] [address] [place], [address] Bacteria identifiedon 2023 Bacteria identified Cx Nom (U) Test: Urine Culture Specimen Source: Clean Catch/Voided Specimen Type: Urine Specimen Date: 04/04/2024 1057 Result Date: 04/05/2024 1613 Result Status: Final result Abnormal: No Resulting Lab: [facility] [address] [place], [place] [address] CULTURE No growth Normal [facility] Comment on above: Performed By: #### 6 30-4 #### HEATHER Grant ([id number]) [facility] ([facility] [address] [place], [place] [id number] Basic metabolic 2000 panelon 04-04-2024 Anion gap [Moles/Vol] 10 mmol/L NINF - 19 mmol/L [facility] Calcium [Mass/Vol] 8.7 mg/dL 8.5 - 10. 4 mg/dL [facility] Chloride [Moles/Vol] 105 mmol/L 97 - 10 7 mmol/L [facility] CO2 [Moles/Vol] 24 mmol/L 24 - 31 mmol/L [facility] Creatinine [Mass/Vol] 0.70 mg/dL 0.40 - 1.60 mg/dL [facility] eGFR - PINF [facility] Comment on above: Calculations of perla mated GFR are performed using the 2020 CKD-EPI Study Refit equation without the race variable for the IDMS-Traceable creatinine methods. https://jasn.asnjournals.org/content//ASN.2020 293532 Glucose [Mass/Vol] 151 mg/dL High 65 - 99 mg/dL [facility] Interpretation and review of laboratory results Abnormal [facility] Potassium [Moles/Vol] 4.1 mmol/L 3.4 - 5.1 mmol/L [facility] Sodium [Moles/Vol] 139 mmol/L 133 - 145 mmol/L [facility] Urea nitrogen [Mass/Vol] 18 mg/dL 8 - 25 mg/dL [facility] Anion gap [Moles/Vol] 10 mmol/L Normal <=19 [facility] Comment on above: Performed By: #### 2 4321-2 #### RON[facility] Alvarez ([id number]) [facility] () [address] [place] [address] Calcium [Mass/Vol] 8.7 mg/dL Normal 8.5-10.4 [facility] Comment on above: Performed By: #### 2 4321-2 #### RONAL Alvarez ([id number]) [facility] () [address] [place] [address] Chloride [Moles/Vol] 105 mmol/L Normal 97-107 [facility] Comment on above: Performed By: #### 2 4321-2 #### RONAL Alvarez ([id number]) [facility] () [address] [place] [address] CO2 [Moles/Vol] 24 mmol/L Normal 24-31 [facility] Comment on above: Performed By: #### 2 4321-2 #### RONAL Alvarez ([id number]) [facility] () [address] [place] [address] Creatinine [Mass/Vol] 0.70 mg/dL Normal 0.40-1.60 [facility] Comment on above: Performed By: #### 2 4321-2 #### RONAL Alvarez ([id number]) [facility] () [address] [place] [address] GFR/1.73 sq M.predicted MDRD (S/P/Bld) [Vol rate/Area] mL/min/{1.73_m2} Normal >60 [facility] Comment on above: Result Comment: Calc ulations of estimated GFR are performed using the 2020 CKD-EPI Study Refit equation without the race variable for the IDMS-Traceable creatinine methods. https://jasn.asnjournals.org/content/early//ASN.2020 643040 Performed By: #### 2 4321-2 #### RONAL Alvarez ([id number]) [facility] () [address] [place] [address] Glucose [Mass/Vol] 151 mg/dL High 65-99 [facility] Comment on above: Performed By: #### 2 4321-2 #### RONAL Alvarez ([id number]) [facility] () [address] [place] [address] Potassium [Moles/Vol] 4.1 mmol/L Normal 3.4-5.1 [facility] Comment on above: Performed By: #### 2 4321-2 #### RONAL Alvarez ([id number]) [facility] () [address] [place] [address] Sodium [Moles/Vol] 139 mmol/L Normal 133-145 [facility] Comment on above: Performed By: #### 2 4321-2 #### RONAL Alvarez ([id number]) [facility] () [address] [place] [address] Urea nitrogen [Mass/Vol] 18 mg/dL Normal 8-25 [facility] Comment on above: Performed By: #### 2 4321-2 #### RONAL Alvarez (85594) [facility] () [address] [place] [address] CBC panel Auto (Bld)on 04-04 Erythrocyte distribution width (RBC) [Ratio] 12.0 % 11.5 - 14.5 % [facility] Hematocrit (Bld) [Volume fraction] 30.1 % Low 36.0 - 46.0 % [facility] Hemoglobin (Bld) [Mass/Vol] 10.5 g/dL Low 12.0 - 16.0 g/dL [facility] Interpretation and review of laboratory results Abnormal [facility] MCH (RBC) [Entitic mass] 29.9 pg 26.0 - 34.0 pg [facility] MCHC (RBC) [Mass/Vol] 34.9 g/dL 32.0 - 36.0 g/dL [facility] MCV (RBC) [Entitic vol] 86 fL 80 - 100 fL [facility] Nucleated RBC/100 WBC (Bld) [Ratio] 0.0 % [facility] Platelets (Bld) [#/Vol] 360 10*3/uL [facility] RBC (Bld) [#/Vol] 3.51 10*6/uL Low [facility] WBC (Bld) [#/Vol] 21.9 10*3/uL High [facility] Erythrocyte distribution width (RBC) [Ratio] 12.0 % Normal 11.5-14.5 [facility] Comment on above: Performed By: #### 5 8410-2 #### RONAL Alvarez ([id number]) [facility] () [address] [place] [address] Hematocrit (Bld) [Volume fraction] 30.1 % Low 36.0-46.0 [facility] Comment on above: Performed By: #### 5 8410-2 #### RONAL Alvarez ([id number]) [facility] () [address] [place] [address] Hemoglobin (Bld) [Mass/Vol] 10.5 g/dL Low 12.0-16.0 [facility] Comment on above: Performed By: #### 5 8410-2 #### RONAL Alvarez (59656) [facility] () [address] [place] [address] MCH (RBC) [Entitic mass] 29.9 pg Normal 26.0-34.0 [facility] Comment on above: Performed By: #### 5 8410-2 #### RONAL Alvarez (36556) [facility] () [address] [place] [address] MCHC (RBC) [Mass/Vol] 34.9 g/dL Normal 32.0-36.0 [facility] Comment on above: Performed By: #### 5 8410-2 #### RONAL Alvarez ([id number]) [facility] () [address] [place] [address] MCV (RBC) [Entitic vol] 86 fL Normal 80-100 [facility] Comment on above: Performed By: #### 5 8410-2 #### RONAL Alvarez ([id number]) [facility] () [address] [place] [address] Nucleated RBC/100 WBC (Bld) [Ratio] 0.0 /100 WBCs Normal 0.0-0.0 [facility] Comment on above: Performed By: #### 5 8410-2 #### RONAL Alvarez ([id number]) [facility] () [address] [place] [address] Platelets (Bld) [#/Vol] 360 x10*3/uL Normal 150-450 [facility] Comment on above: Performed By: #### 5 8410-2 #### RONAL Alvarez ([id number]) [facility] () [address] [place] [address] RBC (Bld) [#/Vol] 3.51 x10*6/uL Low 4.00-5.20 [facility] Comment on above: Performed By: #### 5 8410-2 #### RONAL Alvarez (88683) [facility] () [address] [place] [address] WBC (Bld) [#/Vol] 21.9 x10*3/uL High 4.4-11.3 [facility] Comment on above: Performed By: #### 5 8410-2 #### RONAL Alvarez (39099) [facility] () [address] [place] [address] No Panel Informationon 04-04 Interpretation and review of laboratory results Abnormal [facility] Urinalysis complete W Reflex Culture panel (U)on 04-04-2024 Appearance (U) Clear Clear [facility] Bilirubin (U) [Mass/Vol] Negative NEGATIVE [facility] Color (U) Light-Yellow Light-Yello w, Yellow, Dark-Yellow [facility] Glucose Auto test strip (U) [Mass/Vol] Normal Normal mg/dL [facility] Ketones (U) [Mass/Vol] Negative NEGAT AMANDA mg/dL [facility] Leukocyte esterase Auto test strip Ql (U) 75 Angi/ L Abnormal NEGATIVE [facility] Nitrite Auto test strip Ql (U) Negative NEGATIVE [facility] pH (U) 5.5 [pH] 5.0, 5.5, 6.0, 6.5, 7.0, 7.5, 8.0 [facility] Protein (U) [Mass/Vol] Negative NEGAT AMANDA, 10 (TRACE), 20 (TRACE) mg/dL [facility] RBC (U) [#/Vol] 0.1 (1+) Abnormal NEGATIVE [facility] Specific gravity (U) [Rel density] 1.011 1.005 - 1.035 [facility] Urobilinogen (U) [Mass/Vol] Normal Normal mg/dL [facility] Appearance (U) Clear Normal Clear [facility] Comment on above: Performed By: #### 5 8077-9 #### RONAL Alvarez (23935) [facility] () [address] [place] [address] Bilirubin (U) [Mass/Vol] Negative Normal NEGATIVE [facility] Comment on above: Performed By: #### 5 8077-9 #### RONAL Alvarez ([id number]) [facility] () [address] [place] [address] Color (U) Light-Yellow Normal Light-Yello w, Yellow, Dark-Yellow [facility] Comment on above: Performed By: #### 5 8077-9 #### RONAL Alvarez (83402) [facility] () [address] [place] [address] Glucose Auto test strip (U) [Mass/Vol] Normal Normal Normal [facility] Comment on above: Performed By: #### 5 8077-9 #### RONAL Alvarez (15982) [facility] () [address] [place] [address] Ketones (U) [Mass/Vol] Negative Normal NEGATIVE [facility] Comment on above: Performed By: #### 5 8077-9 #### RONAL Alvarez (33110) [facility] () [address] [place] [address] Leukocyte esterase Auto test strip Ql (U) 75 Angi/???L Abnormal NEGATIVE [facility] Comment on above: Performed By: #### 5 8077-9 #### RONAL Alvarez (42546) [facility] () [address] [place] [address] Nitrite Auto test strip Ql (U) Negative Normal NEGATIVE [facility] Comment on above: Performed By: #### 5 8077-9 #### RONAL Alvarez (94680) [facility] () [address] [place] [address] pH (U) 5.5 [pH] Normal 5.0, 5.5, 6.0, 6.5, 7.0, 7.5, 8.0 [facility] Comment on above: Performed By: #### 5 8077-9 #### RONAL Alvarez (03061) [facility] () [address] [place] [address] Protein (U) [Mass/Vol] Negative Normal NEGAT AMANDA, 10 (TRACE), 20 (TRACE) [facility] Comment on above: Performed By: #### 5 8077-9 #### RONAL Alvarez (12705) [facility] () [address] [place] [address] RBC (U) [#/Vol] 0.1 (1+) Abnormal NEGATIVE [facility] Comment on above: Performed By: #### 5 8077-9 #### RONAL Alvarez (36402) [facility] () [address] [place] [address] Specific gravity (U) [Rel density] 1.011 Normal 1.005-1.035 [facility] Comment on above: Performed By: #### 5 8077-9 #### RONAL Alvarez (96232) [facility] () [address] [place] [address] Urobilinogen (U) [Mass/Vol] Normal Normal Normal [facility] Comment on above: Performed By: #### 5 8077-9 #### RONAL Alvarez (94058) [facility] () [address] [place] [address] Urinalysis microscopic panel Auto Ql (U)on 04-04-2024 Epithelial cells.squamous Auto (Urine sed) [#/Area] 1-9 (SPARSE) Reference range not established . /HPF [facility] Mucus Auto (Urine sed) [#/Area] FEW Reference range not established . /LPF [facility] RBC Auto (Urine sed) [#/Area] 11-20 Abnormal NONE, 1-2, 3-5 /HPF [facility] WBC Auto (Urine sed) [#/Area] 6-10 Abnormal 1-5, NONE /HPF [facility] Epithelial cells.squamous Auto (Urine sed) [#/Area] 1-9 (SPARSE) Normal Reference range not established . [facility] Comment on above: Performed By: #### 5 3315-8 #### RONAL FISHER T (09045) [facility] () [address] [place] [address] Mucus Auto (Urine sed) [#/Area] FEW Normal Reference range not established . [facility] Comment on above: Performed By: #### 5 3315-8 #### RONAL FISHER T (43099) [facility] () [address] [place] [address] RBC Auto (Urine sed) [#/Area] 11-20 Abnormal NONE, 1-2, 3-5 [facility] Comment on above: Performed By: #### 5 3315-8 #### RONAL FISHER T (55599) [facility] () [address] [place] [address] WBC Auto (Urine sed) [#/Area] 6-10 Abnormal 1-5, NONE [facility] Comment on above: Performed By: #### 5 3315-8 #### RONAL FISHER T (46864) [facility] () [address] [place] [address] XR CHEST 1 VIEWon 04-04-2024 XR CHEST 1 VIEW Interpreted By: Rafael Ibanez, STUDY: XR CHEST 1 VIEW; ; 04/04/2024 8:59 am INDICATION: Signs/Symptoms:leukocy tosis. COMPARISON: None. ACCESSION NUMBER(S): [id number] ORDERING CLINICIAN: KESHAWN STEVENSON TECHNIQUE: Single AP view chest FINDINGS: Cardiac silhouette is within normal limits. No infiltrate or effusion identified. Visualized osseous structures demonstrate glenohumeral joint osteoarthritis bilaterally. IMPRESSION: 1. No acute process MACRO: None Signed by: Rafael Shepard 04/04/2024 9:46 AM Dictation workstation: [id number] [facility] XR Chest Single viewon 04-04 1. No acute process MACRO: None Signed by: Rafael Shepard 04/04/2024 9:46 AM Dictation workstation: [id number] [facility] Interpreted By: Rafael Ibanez, STUDY: XR CHEST 1 VIEW; ; 04/04/2024 8:59 am INDICATION: Signs/Symptoms:leukocy tosis. COMPARISON: None. ACCESSION NUMBER(S): [id number] ORDERING CLINICIAN: KESHAWN STEVENSON TECHNIQUE: Single AP view chest FINDINGS: Cardiac silhouette is within normal limits. No infiltrate or effusion identified. Visualized osseous structures demonstrate glenohumeral joint osteoarthritis bilaterally. [facility] Rafael Shepard MD - 04/04/2024 Interpreted By: Rafael Shepard, STUDY: XR CHEST 1 VIEW; ; 04/04/2024 8:59 am INDICATION: Signs/Symptoms:leukocy tosis. COMPARISON: None. ACCESSION NUMBER(S): [id number] ORDERING CLINICIAN: KESHAWN STEVENSON TECHNIQUE: Single AP view chest FINDINGS: Cardiac silhouette is within normal limits. No infiltrate or effusion identified. Visualized osseous structures demonstrate glenohumeral joint osteoarthritis bilaterally. IMPRESSION: 1. No acute process MACRO: None Signed by: Rafael Shepard 04/04/2024 9:46 AM Dictation workstation: [id number] [facility] Work Phone: Radiology Study observation (narrative) [facility] Work Phone: XR Chest Single viewOrdered By: Rafael Shepard on 04-04-2024 [facility] Work Phone: XR KNEE LEFT 1-2 VIEWSon XR KNEE LEFT 1-2 VIEWS Interpreted By: Herman Marquez, STUDY: XR KNEE LEFT 1-2 VIEWS; 04/03/2024 10:27 am INDICATION: Signs/Symptoms:Post-op knee. COMPARISON: None. ACCESSION NUMBER(S): [id number] ORDERING CLINICIAN: TIN WEST FINDINGS: Components of left knee arthroplasty are in anatomic alignment. Postoperative soft tissue gas. IMPRESSION: New left knee arthroplasty in anatomic alignment. MACRO: None Signed by: Herman Marquez 04/03/2024 11:33 AM Dictation workstation: [id number] [facility] Comment on above: Order Comment: AP an d Lateral view of (left) postoperative knee in PACU. XR Knee - left 1 or 2 Viewso n 04-03-2024 New left knee arthroplasty in anatomic alignment. MACRO: None Signed by: Herman Marquez 04/03/2024 11:33 AM Dictation workstation: [id number] [facility] Interpreted By: Herman Marquez, STUDY: XR KNEE LEFT 1-2 VIEWS; 04/03/2024 10:27 am INDICATION: Signs/Symptoms:Post-op knee. COMPARISON: None. ACCESSION NUMBER(S): [id number] ORDERING CLINICIAN: TIN WEST FINDINGS: Components of left knee arthroplasty are in anatomic alignment. Postoperative soft tissue gas. [facility] Herman Marquez MD - 04/03/2024 Interpreted By: Herman Marquez, STUDY: XR KNEE LEFT 1-2 VIEWS; 04/03/2024 10:27 am INDICATION: Signs/Symptoms:Post-op knee. COMPARISON: None. ACCESSION NUMBER(S): [id number] ORDERING CLINICIAN: TIN WEST FINDINGS: Components of left knee arthroplasty are in anatomic alignment. Postoperative soft tissue gas. IMPRESSION: New left knee arthroplasty in anatomic alignment. MACRO: None Signed by: Herman Marquez 04/03/2024 11:33 AM Dictation workstation: [id number] [facility] Work Phone: Radiology Study observation (narrative) [facility] Work Phone: XR Knee - left 1 or 2 ViewsO rdered By: Herman Marquez on 04-03-2024 [facility] [facility] Work Phone: Basic metabolic 2000 panelon 03-21-2024 Anion gap [Moles/Vol] 15 mmol/L Normal <=19 [facility] Comment on above: Performed By: #### 2 4321-2 #### RONAL Alvarez ([id number]) [facility] () [address] [place] [address] Calcium [Mass/Vol] 10.2 mg/dL Normal 8.5-10.4 [facility] Comment on above: Performed By: #### 2 4321-2 #### RONAL Alvarez ([id number]) [facility] () [address] [place] [address] Chloride [Moles/Vol] 103 mmol/L Normal 97-107 [facility] Comment on above: Performed By: #### 2 4321-2 #### RONAL Alvarez ([id number]) [facility] () [address] [place] [address] CO2 [Moles/Vol] 24 mmol/L Normal 24-31 [facility] Comment on above: Performed By: #### 2 4321-2 #### RONAL Alvarez ([id number]) [facility] () [address] [place] [address] Creatinine [Mass/Vol] 0.90 mg/dL Normal 0.40-1.60 [facility] Comment on above: Performed By: #### 2 4321-2 #### RONAL Alvarez ([id number]) [facility] () [address] [place] [address] Glomerular filtration rate/1.73 sq M.predicted 72 mL/min/1.73m*2 Normal >60 [facility] Comment on above: Result Comment: Calc ulations of estimated GFR are performed using the 2020 CKD-EPI Study Refit equation without the race variable for the IDMS-Traceable creatinine methods. https://jasn.asnjournals.org/content/early/ASN 163636 Performed By: #### 2 4321-2 #### RONAL Alvarez ([id number]) [facility] () [address] [place] [address] Glucose [Mass/Vol] 84 mg/dL Normal 65-99 [facility] Comment on above: Performed By: #### 2 4321-2 #### RONAL Alvarez ([id number]) [facility] () [address] [place] [address] Potassium [Moles/Vol] 4.5 mmol/L Normal 3.4-5.1 [facility] Comment on above: Performed By: #### 2 4321-2 #### RONAL Alvarez ([id number]) [facility] () [address] [place] [address] Sodium [Moles/Vol] 142 mmol/L Normal 133-145 [facility] Comment on above: Performed By: #### 2 4321-2 #### RONAL Alvarez ([id number]) [facility] () [address] [place] [address] Urea nitrogen [Mass/Vol] 18 mg/dL Normal 8-25 [facility] Comment on above: Performed By: #### 2 4321-2 #### RONAL Alvarez ([id number]) [facility] () [address] [place] [address] CBC W Auto Differential pane l (Bld)on 03-21-2024 Basophils (Bld) [#/Vol] 0.07 x10*3/uL Normal 0.00-0.10 [facility] Comment on above: Performed By: #### 5 7021-8 #### RONAL Alvarez ([id number]) [facility] () [address] [place] [address] Basophils/100 WBC (Bld) 0.7 % Normal 0.0-2.0 [facility] Comment on above: Performed By: #### 5 7021-8 #### RONAL Alvarez ([id number]) [facility] () [address] [place] [address] Eosinophils (Bld) [#/Vol] 0.12 x10*3/uL Normal 0.00-0.70 [facility] Comment on above: Performed By: #### 5 7021-8 #### RONAL Alvarez ([id number]) [facility] () [address] [place] [address] Eosinophils/100 WBC (Bld) 1.2 % Normal 0.0-6.0 [facility] Comment on above: Performed By: #### 5 7021-8 #### RONAL Alvarez ([id number]) [facility] () [address] [place] [address] Erythrocyte distribution width (RBC) [Ratio] 12.3 % Normal 11.5-14.5 [facility] Comment on above: Performed By: #### 5 7021-8 #### RONAL Alvarez ([id number]) [facility] () [address] [place] [address] Hematocrit (Bld) [Volume fraction] 41.4 % Normal 36.0-46.0 [facility] Comment on above: Performed By: #### 5 7021-8 #### RONAL Alvarez ([id number]) [facility] () [address] [place] [address] Hemoglobin (Bld) [Mass/Vol] 13.5 g/dL Normal 12.0-16.0 [facility] Comment on above: Performed By: #### 5 7021-8 #### RONAL Alvarez ([id number]) [facility] () [address] [place] [address] Immature granulocytes (Bld) [#/Vol] 0.03 x10*3/uL Normal 0.00-0.70 [facility] Comment on above: Performed By: #### 5 7021-8 #### RONAL Alvarez ([id number]) [facility] () [address] [place] [address] Immature granulocytes/100 WBC (Bld) 0.3 % Normal 0.0-0.9 [facility] Comment on above: Result Comment: Анна ture Granulocyte Count (IG) includes promyelocytes, myelocytes and metamyelocytes but does not include bands. Percent differential counts (%) should be interpreted in the context of the absolute cell counts (cells/UL). Performed By: #### 5 7021-8 #### RONAL Alvarez ([id number]) [facility] () [address] [place] [address] Lymphocytes (Bld) [#/Vol] 2.15 x10*3/uL Normal 1.20-4.80 [facility] Comment on above: Performed By: #### 5 7021-8 #### RONAL Alvarez ([id number]) [facility] () [address] [place] [address] Lymphocytes/100 WBC (Bld) 21.7 % Normal 13.0-44.0 [facility] Comment on above: Performed By: #### 5 7021-8 #### RONAL Alvarez ([id number]) [facility] () [address] [place] [address] MCH (RBC) [Entitic mass] 29.3 pg Normal 26.0-34.0 [facility] Comment on above: Performed By: #### 5 7021-8 #### RONAL Alvarez ([id number]) [facility] () [address] [place] [address] MCHC (RBC) [Mass/Vol] 32.6 g/dL Normal 32.0-36.0 [facility] Comment on above: Performed By: #### 5 7021-8 #### RONAL Alvarez ([id number]) [facility] () [address] [place] [address] MCV (RBC) [Entitic vol] 90 fL Normal 80-100 [facility] Comment on above: Performed By: #### 5 7021-8 #### RONAL Alvarez ([id number]) [facility] () [address] [place] [address] Monocytes (Bld) [#/Vol] 0.76 x10*3/uL Normal 0.10-1.00 [facility] Comment on above: Performed By: #### 5 7021-8 #### RONAL Alvarez ([id number]) [facility] () [address] [place] [address] Monocytes/100 WBC (Bld) 7.7 % Normal 2.0-10.0 [facility] Comment on above: Performed By: #### 5 7021-8 #### RONAL Alvarez ([id number]) [facility] () [address] [place] [address] Neutrophils (Bld) [#/Vol] 6.78 x10*3/uL Normal 1.20-7.70 [facility] Comment on above: Result Comment: Perc ent differential counts (%) should be interpreted in the context of the absolute cell counts (cells/uL). Performed By: #### 5 7021-8 #### RONAL Alvarez ([id number]) [facility] () [address] [place] [address] Neutrophils/100 WBC (Bld) 68.4 % Normal 40.0-80.0 [facility] Comment on above: Performed By: #### 5 7021-8 #### RONAL Alvarez ([id number]) [facility] () [address] [place] [address] Nucleated RBC/100 WBC (Bld) [Ratio] 0.0 /100 WBCs Normal 0.0-0.0 [facility] Comment on above: Performed By: #### 5 7021-8 #### RONAL Alvarez ([id number]) [facility] () [address] [place] [address] Platelets (Bld) [#/Vol] 439 x10*3/uL Normal 150-450 [facility] Comment on above: Performed By: #### 5 7021-8 #### RONAL Alvarez ([id number]) [facility] () [address] [place] [address] RBC (Bld) [#/Vol] 4.60 x10*6/uL Normal 4.00-5.20 [facility] Comment on above: Performed By: #### 5 7021-8 #### RONAL Alvarez ([id number]) [facility] () [address] [place] [address] WBC (Bld) [#/Vol] 9.9 x10*3/uL Normal 4.4-11.3 [facility] Comment on above: Performed By: #### 5 7021-8 #### RONAL Alvarez ([id number]) [facility] () [address] [place] [address] Staphylococcus aureus.methic illin resistant isolateon 03-21-2024 MRSA isol Org specific cx Ql (Nose) Test: Staphylococcus aureus/MRSA colonization, Culture Specimen Source: Anterior Nares Specimen Type: Swab Specimen Date: 03/21/2024 141 Result Date: 03/23/2024 0747 Result Status: Final result Abnormal: No Resulting Lab: [facility] [address] [place] [address] CULTURE No Staphylococcus aureus isolated Normal [facility] Comment on above: Performed By: #### 5 2969-3 #### HEATHER Grant ([id number]) [facility] ([facility]) [address] [place], [place] [id number] Urinalysis complete W Reflex Culture panel (U)on 03-21-2024 Appearance (U) Clear Normal Clear [facility] Comment on above: Performed By: #### 5 8077-9 #### RONAL Alvarez ([id number]) [facility] () [address] [place] [address] Bilirubin (U) [Mass/Vol] Negative Normal NEGATIVE [facility] Comment on above: Performed By: #### 5 8077-9 #### RONAL Alvarez ([id number]) [facility] () [address] [place] [address] Color (U) Light-Yellow Normal Light-Yello w, Yellow, Dark-Yellow [facility] Comment on above: Performed By: #### 5 8077-9 #### RONAL Alvarez ([id number]) [facility] () [address] [place] [address] Glucose Auto test strip (U) [Mass/Vol] Normal Normal Normal [facility] Comment on above: Performed By: #### 5 8077-9 #### RONAL Alvarez ([id number]) [facility] () [address] [place] [address] Ketones (U) [Mass/Vol] Negative Normal NEGATIVE [facility] Comment on above: Performed By: #### 5 8077-9 #### RONAL Alvarez ([id number]) [facility] () [address] [place] [address] Leukocyte esterase Auto test strip Ql (U) Negative Normal NEGATIVE [facility] Comment on above: Performed By: #### 5 8077-9 #### RONAL Alvarez ([id number]) [facility] () [address] [place] [address] Nitrite Auto test strip Ql (U) Negative Normal NEGATIVE [facility] Comment on above: Performed By: #### 5 8077-9 #### RONAL Alvarez ([id number]) [facility] () [address] [place] [address] pH (U) 5.5 [pH] Normal 5.0, 5.5, 6.0, 6.5, 7.0, 7.5, 8.0 [facility] Comment on above: Performed By: #### 5 8077-9 #### RONAL Alvarez ([id number]) [facility] () [address] [place] [address] Protein (U) [Mass/Vol] Negative Normal NEGAT AMANDA, 10 (TRACE), 20 (TRACE) [facility] Comment on above: Performed By: #### 5 8077-9 #### RONAL Alvarez ([id number]) [facility] () [address] [place] [address] RBC (U) [#/Vol] Negative Normal NEGATIVE [facility] Comment on above: Performed By: #### 5 8077-9 #### RONAL Alvarez ([id number]) [facility] () [address] [place] [address] Specific gravity (U) [Rel density] 1.016 Normal 1.005-1.035 [facility] Comment on above: Performed By: #### 5 8077-9 #### RONAL Alvarez ([id number]) [facility] () [address] [place] [address] Urobilinogen (U) [Mass/Vol] Normal Normal Normal [facility] Comment on above: Performed By: #### 5 8077-9 #### RONAL Alvarez ([id number]) [facility] () [address] [place] [address] Absolute lymphocyte countOrd ered By: Karlie Johnson on 12-16-2023 Lymphocytes Auto (Unsp spec) [#/Vol] 2.10 10*3/uL 0.83-4.51 [facility] Automated lymphocyte count a s percentage of total leukocytesOrdered By: Karlie Johnson on 12-16-2023 Lymphocytes/100 WBC Auto (Unsp spec) 20.1 % 19-41 [facility] Basophil percentageOrdered B y: Karlie Johnson on 12-16-2023 Basophils/100 WBC (Bld) 0.9 % 0-1 [facility] Chloride [Moles/Vol] 107 mmol/L 98-107 [facility] Eosin[facility]/100 WBC (Bld) 3.5 % 0-5 [facility] Glucose [Mass/Vol] 95 mg/dL 74-106 [facility] Hemoglobin (Bld) [Mass/Vol] 12.4 g/dL 12.0-15.0 [facility] Monocytes/100 WBC (Bld) 8.6 % 0-10 [facility] Neutrophils (Bld) [#/Vol] 6.9 10*3/uL 2.0-7.7 [facility] Neutrophils/100 WBC (Bld) 66.1 % 47-70 [facility] Potassium [Moles/Vol] 3.6 mmol/L 3.5-5.1 [facility] Sodium [Moles/Vol] 141 mmol/L 136-145 [facility] WBC (Bld) [#/Vol] 10.4 10*3/uL 4.4-11.0 [facility] Determination of erythrocyte mean corpuscular volume (MCV)Ordered By: Karlie Johnson on 12-16-2023 MCV (RBC) [Entitic vol] 90.7 fL 81-99 [facility] Erythrocyte distribution wid th ratioOrdered By: Karlie Johnson on 12-16-2023 Erythrocyte distribution width (RBC) [Ratio] 12.6 % 11.6-14.6 [facility] Erythrocyte distribution wid th standard deviationOrdered By: Karlie Johnson on 12-16-2023 Erythrocyte distribution width (RBC) [Entitic vol] 41.3 fL 35.1-43.9 [facility] Hematocrit Auto (Bld) [Volum e fraction]Ordered By: Karlie Johnson on 12-16-2023 Hematocrit (Bld) [Volume fraction] 38.9 % 37-47 [facility] Immature granulocytes/100 WB C Auto (Bld)Ordered By: Karlie Johnson on 12-16-2023 Immature granulocytes/100 WBC (Bld) 0.800 % 0.0-0.9 [facility] Comment on above: IG% - Immature Granu locytes (promyelocytes, myelocytes and metamyelocytes) > 1% indicates that a LEFT SHIFT is Present. Laboratory - Chemistry and C hemistry - challengeOrdered By: Karlie Johnson on 12-16-2023 CO2 [Moles/Vol] 29.0 mmol/L 21.0-32.0 [facility] Magnesium [Mass/Vol] 2.5 mg/dL 1.6-2.6 [facility] Urea nitrogen/Creatinine [Mass ratio] 17.3 mg/mg 10-20 [facility] Laboratory - Hematology and Cell countsOrdered By: Karlie Johnson on 12-16-2023 MCH (RBC) [Entitic mass] 28.9 pg 27.0-32.0 [facility] MCHC (RBC) [Mass/Vol] 31.9 g/dL 32-36 [facility] Nucleated RBC/100 WBC (Bld) [Ratio] 0 % 0-5 [facility] Platelet mean volume (Bld) [Entitic vol] 9.8 fL 6.2-12.0 [facility] Platelets (Bld) [#/Vol] 453 10*3/uL 150-450 [facility] No Panel InformationOrdered By: Karlie Johnson on 12-16-2023 Estimated GFR (MDRD) Amer 85 mL/min >60 [facility] Comment on above: GFR Calc Estimated GFR (MDRD) Non-Af Amer 70 mL/min >60 [facility] Comment on above: Non- GFR Calc Free Triiodothyronine (T3) pg/dL 2.3 pg/mL 2.18-3.98 [facility] RBC Auto (Bld) [#/Vol]Ordere d By: Karlie Johnson on 12-16-2023 RBC (Bld) [#/Vol] 4.29 10*6/uL 4.2-5.4 [facility] Serum or plasma calcium kyree urement (mass/volume)Ordered By: Karlie Johnson on 12-16-2023 Calcium [Mass/Vol] 9.3 mg/dL 8.5-10.1 [facility] Serum or plasma creatinine m easurement (mass/volume)Ordered By: Karlie Johnson on 12-16-2023 Creatinine [Mass/Vol] 0.87 mg/dL 0.55-1.02 [facility] Comment on above: The validity of the calculated GFR & GFRAA in patients over 70 years has not been determined. Clinical correlation is essential. Serum or plasma thyroid stim ulating hormone (TSH) measurement (units/volume)Ordered By: Karlie Johnson on 12-16-2023 TSH Qn 1.76 uIU/mL 0.358-3.74 [facility] Serum or plasma urea nitroge n measurement (mass/volume)Ordered By: Karlie Johnson on 12-16-2023 Urea nitrogen [Mass/Vol] 15 mg/dL 7-18 [facility] Thin prep Papanicolaou smear with manual screeningOrdered By: Karlie Johnson on 12-16-2023 Thin prep Papanicolaou smear with manual screening 5 5-15 [facility] Thin prep Papanicolaou smear with manual screening 1.10 ng/dL 0.76-1.46 [facility] Laboratory - Microbiology an d Antimicrobial susceptibilityon 10-06-2023 SARS-CoV-2 (COVID-19) RNA NEIL+probe Ql (Unsp spec) Detected [facility] No Panel Informationon 10-06 Influenza Types A,B Rapid (Clinic) Not detected [facility] Absolute lymphocyte countOrd ered By: Yennifer Johnson on 09-27-2023 Lymphocytes Auto (Unsp spec) [#/Vol] 1.81 10*3/uL 0.83-4.51 [facility] Basophil percentageOrdered B y: Yennifer Johnson on 09-27-2023 Basophils/100 WBC (Bld) 0.6 % 0-1 [facility] Chloride [Moles/Vol] 106 mmol/L 98-107 [facility] Eosinophils/100 WBC (Bld) 1.4 % 0-5 [facility] Glucose [Mass/Vol] 90 mg/dL 74-106 [facility] Neutrophils (Bld) [#/Vol] 8.1 10*3/uL 2.0-7.7 [facility] Neutrophils/100 WBC (Bld) 73.3 % 47-70 [facility] Potassium [Moles/Vol] 3.8 mmol/L 3.5-5.1 [facility] Sodium [Moles/Vol] 139 mmol/L 136-145 [facility] WBC (Bld) [#/Vol] 11.0 10*3/uL 4.4-11.0 [facility] Blood erythrocytes count (nu mber/volume)Ordered By: Yennifer Johnson on 09-27-2023 RBC (Bld) [#/Vol] 4.37 10*6/uL 4.2-5.4 [facility] Blood hemoglobin measurement (mass/volume)Ordered By: Yennifer Johnson on 09-27-2023 Hemoglobin (Bld) [Mass/Vol] 12.9 g/dL 12.0-15.0 [facility] Blood lymphocytes/100 leukoc ytesOrdered By: Yennifer Johnson on 09-27-2023 Lymphocytes/100 WBC (Bld) 16.5 % 19-41 [facility] Blood monocytes/100 leukocyt esOrdered By: Yennifer Johnson on 09-27-2023 Monocytes/100 WBC (Bld) 7.7 % 0-10 [facility] Blood platelet mean volumeOr dered By: Yennifer Johnson on 09-27-2023 Platelet mean volume (Bld) [Entitic vol] 10.3 fL 6.2-12.0 [facility] Determination of erythrocyte mean corpuscular volume (MCV)Ordered By: Yennifer Johnson on 09-27-2023 MCV (RBC) [Entitic vol] 90.4 fL 81-99 [facility] Hematocrit Auto (Bld) [Volum e fraction]Ordered By: Yennifer Johnson on 09-27-2023 Hematocrit (Bld) [Volume fraction] 39.5 % 37-47 [facility] Laboratory - Chemistry and C hemistry - challengeOrdered By: Yennifer Johnson on 09-27-2023 CO2 [Moles/Vol] 24.0 mmol/L 21.0-32.0 [facility] Urea nitrogen/Creatinine [Mass ratio] 20.6 mg/mg 10-20 [facility] Laboratory - Hematology and Cell countsOrdered By: Yennifer Johnson on 09-27-2023 Erythrocyte distribution width (RBC) [Entitic vol] 39.6 fL 35.1-43.9 [facility] Erythrocyte distribution width (RBC) [Ratio] 11.9 % 11.6-14.6 [facility] Immature granulocytes/100 WBC (Bld) 0.500 % 0.0-0.9 [facility] Comment on above: IG% - Immature Granu locytes (promyelocytes, myelocytes and metamyelocytes) > 1% indicates that a LEFT SHIFT is Present. MCH (RBC) [Entitic mass] 29.5 pg 27.0-32.0 [facility] Nucleated RBC/100 WBC (Bld) [Ratio] 0 % 0-5 [facility] MCHC Auto (RBC) [Mass/Vol]Or dered By: Yennifer Johnson on 09-27-2023 MCHC (RBC) [Mass/Vol] 32.7 g/dL 32-36 [facility] No Panel InformationOrdered By: Yennifer Johnson on 09-27-2023 Estimated GFR (MDRD) Amer 97 mL/min >60 [facility] Comment on above: GFR Calc Estimated GFR (MDRD) Non-Af Amer 80 mL/min >60 [facility] Comment on above: Non- GFR Calc Platelets bldOrdered By: Lokesh Johnson on 09-27-2023 Platelets (Bld) [#/Vol] 452 10*3/uL 150-450 [facility] Serum or plasma calcium kyree urement (mass/volume)Ordered By: Yennifer Johnson on 09-27-2023 Calcium [Mass/Vol] 9.4 mg/dL 8.5-10.1 [facility] Serum or plasma creatinine m easurement (mass/volume)Ordered By: Yennifer Johnson on 09-27-2023 Creatinine [Mass/Vol] 0.78 mg/dL 0.55-1.02 [facility] Comment on above: The validity of the calculated GFR & GFRAA in patients over 70 years has not been determined. Clinical correlation is essential. Serum or plasma urea nitroge n measurement (mass/volume)Ordered By: Yennifer Johnson on 09-27-2023 Urea nitrogen [Mass/Vol] 16 mg/dL 7-18 [facility] Thin prep Papanicolaou smear with manual screeningOrdered By: Yennifer Johnson on 09-27-2023 Thin prep Papanicolaou smear with manual screening 9 5-15 [facility] Basophil percentageOrdered B y: Karlie Johnson on 07-03-2023 Bilirubin [Mass/Vol] 0.40 mg/dL 0.20-1.00 [facility] Comment on above: For patients on eltr ombopag therapy, use of Dimension [place] TBIL is not recommended. Cholesterol [Mass/Vol] 153 mg/dL <200 [facility] Comment on above: <200 mg/dL Desirable 200-240 mg/dL Borderline >240 mg/dL High Risk Protein [Mass/Vol] 7.6 g/dL 6.4-8.2 [facility] Triglyceride [Mass/Vol] 81 mg/dL <199 [facility] Comment on above: The drugs N-Acetylcy steine and Metamizole may falsely depress this assay.Serum Triglycerides Reference Interval Normal <150 mg/dL Borderline high 150 - 199 mg/dL High 200 - 499 mg/dL Very High > or = 500 mg/dL Direct bilirubinOrdered By: Karlie Johnson on 07-03-2023 Bilirubin.direct [Mass/Vol] 0.14 mg/dL 0.00-0.30 [facility] Laboratory - Chemistry and C hemistry - challengeOrdered By: Karlie Johnson on 07-03-2023 ALP [Catalytic activity/Vol] 79 U/L 45-117 [facility] ALT [Catalytic activity/Vol] 20 U/L 13-56 [facility] Globulin (S) [Mass/Vol] 3.8 g/dL 2.2-4.2 [facility] Serum or plasma albumin kyree urement (mass/volume)Ordered By: Karlie Johnson on 07-03-2023 Albumin [Mass/Vol] 3.8 g/dL 3.2-5.0 [facility] Serum or plasma cholesterol in HDL measurement (mass/volume)Ordered By: Karlie Johnson on 07-03-2023 Cholesterol in HDL [Mass/Vol] 53 mg/dL >40 [facility] Comment on above: The drugs N-Acetylcy steine and Metamizole may falsely depress this assay. Reference Range HDL <40 mg/dL Low HDL Cholesterol HDL >or= 60 mg/dL High HDL Cholesterol Serum or plasma cholesterol in VLDL measurement (mass/volume)Ordered By: Karlie Johnson on 07-03-2023 Cholesterol in VLDL [Mass/Vol] 16 mg/dL 5-40 [facility] Serum or plasma low density lipoprotein (LDL) cholesterol measurement (mass/volume)Ordered By: Karlie Johnson on 07-03-2023 Cholesterol in LDL [Mass/Vol] 84 mg/dL 0-130 [facility] Thin prep Papanicolaou smear with manual screeningOrdered By: Karlie Johnson on 07-03-2023 Thin prep Papanicolaou smear with manual screening 15 U/L 15-37 [facility] Basophil percentageOrdered B y: Dr. Lopez on 03-16-2023 Bilirubin [Mass/Vol] 0.30 mg/dL 0.20-1.00 [facility] Comment on above: For patients on eltr ombopag therapy, use of Dimension [place] TBIL is not recommended. Cholesterol [Mass/Vol] 179 mg/dL <200 [facility] Comment on above: <200 mg/dL Desirable 200-240 mg/dL Borderline >240 mg/dL High Risk Protein [Mass/Vol] 7.8 g/dL 6.4-8.2 [facility] Triglyceride [Mass/Vol] 62 mg/dL <199 [facility] Comment on above: The drugs N-Acetylcy steine and Metamizole may falsely depress this assay.Serum Triglycerides Reference Interval Normal <150 mg/dL Borderline high 150 - 199 mg/dL High 200 - 499 mg/dL Very High > or = 500 mg/dL Direct bilirubinOrdered By: Dr. Lopez on 03-16-2023 Bilirubin.direct [Mass/Vol] 0.12 mg/dL 0.00-0.30 [facility] Laboratory - Chemistry and C hemistry - challengeOrdered By: Dr. Lopez on 03-16-2023 ALP [Catalytic activity/Vol] 88 U/L 45-117 [facility] ALT [Catalytic activity/Vol] 22 U/L 13-56 [facility] Globulin (S) [Mass/Vol] 4.0 g/dL 2.2-4.2 [facility] Serum or plasma albumin kyree urement (mass/volume)Ordered By: Dr. Lopez on 03-16-2023 Albumin [Mass/Vol] 3.8 g/dL 3.2-5.0 [facility] Serum or plasma cholesterol in HDL measurement (mass/volume)Ordered By: Dr. Lopez on 03-16-2023 Cholesterol in HDL [Mass/Vol] 66 mg/dL >40 [facility] Comment on above: The drugs N-Acetylcy steine and Metamizole may falsely depress this assay. Reference Range HDL <40 mg/dL Low HDL Cholesterol HDL >or= 60 mg/dL High HDL Cholesterol Serum or plasma cholesterol in VLDL measurement (mass/volume)Ordered By: Dr. Lopez on 03-16-2023 Cholesterol in VLDL [Mass/Vol] 12 mg/dL 5-40 [facility] Serum or plasma low density lipoprotein (LDL) cholesterol measurement (mass/volume)Ordered By: Dr. Lopez on 03-16-2023 Cholesterol in LDL [Mass/Vol] 101 mg/dL 0-130 [facility] Thin prep Papanicolaou smear with manual screeningOrdered By: Dr. Lopez on 03-16-2023 Thin prep Papanicolaou smear with manual screening 17 U/L 15-37 [facility] Basophil percentageOrdered B y: Dr. Lopez on 10-31-2022 Bilirubin [Mass/Vol] 0.50 mg/dL 0.20-1.00 [facility] Comment on above: For patients on eltr ombopag therapy, use of Dimension Oxford TBIL is not recommended. Cholesterol [Mass/Vol] 176 mg/dL <200 [facility] Comment on above: <200 mg/dL Desirable 200-240 mg/dL Borderline >240 mg/dL High Risk Protein [Mass/Vol] 7.6 g/dL 6.4-8.2 [facility] Triglyceride [Mass/Vol] 88 mg/dL <199 [facility] Comment on above: The drugs N-Acetylcy steine and Metamizole may falsely depress this assay.Serum Triglycerides Reference Interval Normal <150 mg/dL Borderline high 150 - 199 mg/dL High 200 - 499 mg/dL Very High > or = 500 mg/dL Direct bilirubinOrdered By: Dr. Lopez on 10-31-2022 Bilirubin.direct [Mass/Vol] 0.10 mg/dL 0.00-0.30 [facility] Laboratory - Chemistry and C hemistry - challengeOrdered By: Dr. Lopez on 10-31-2022 ALP [Catalytic activity/Vol] 82 U/L 45-117 [facility] ALT [Catalytic activity/Vol] 22 U/L 13-56 [facility] Globulin (S) [Mass/Vol] 3.7 g/dL 2.2-4.2 [facility] Serum or plasma albumin kyree urement (mass/volume)Ordered By: Dr. Lopez on 10-31-2022 Albumin [Mass/Vol] 3.9 g/dL 3.2-5.0 [facility] Serum or plasma cholesterol in HDL measurement (mass/volume)Ordered By: Dr. Lopez on 10-31-2022 Cholesterol in HDL [Mass/Vol] 68 mg/dL >40 [facility] Comment on above: The drugs N-Acetylcy steine and Metamizole may falsely depress this assay. Reference Range HDL <40 mg/dL Low HDL Cholesterol HDL >or= 60 mg/dL High HDL Cholesterol Serum or plasma cholesterol in VLDL measurement (mass/volume)Ordered By: Dr. Lopez on 10-31-2022 Cholesterol in VLDL [Mass/Vol] 18 mg/dL 5-40 [facility] Serum or plasma low density lipoprotein (LDL) cholesterol measurement (mass/volume)Ordered By: Dr. Lopez on 10-31-2022 Cholesterol in LDL [Mass/Vol] 90 mg/dL 0-130 [facility] Thin prep Papanicolaou smear with manual screeningOrdered By: Dr. Lopez on 10-31-2022 Thin prep Papanicolaou smear with manual screening 12 U/L 15-37 [facility] Absolute lymphocyte counton 06-24-2022 Lymphocytes Auto (Unsp spec) [#/Vol] 2.61 10*3/uL 0.83-4.51 [facility] Work Phone: Basophil percentageon 2021 Basophils/100 WBC (Bld) 0.7 % 0-1 [facility] Work Phone: Chloride [Moles/Vol] 107 mmol/L 98-107 [facility] Work Phone: Eosinophils/100 WBC (Bld) 2.0 % 0-5 [facility] Work Phone: Glucose [Mass/Vol] 81 mg/dL 74-106 [facility] Work Phone: Neutrophils (Bld) [#/Vol] 6.7 10*3/uL 2.0-7.7 [facility] Work Phone: [phone] Neutrophils/100 WBC (Bld) 62.6 % 47-70 [facility] Work Phone: [phone] Potassium [Moles/Vol] 3.5 mmol/L 3.5-5.1 [facility] Work Phone: [phone] Sodium [Moles/Vol] 142 mmol/L 136-145 [facility]: [phone] WBC (Bld) [#/Vol] 10.8 10*3/uL 4.4-11.0 [facility] Work Phone: [phone] Blood erythrocytes count (nu mber/volume)on 06-24-2022 RBC (Bld) [#/Vol] 4.27 10*6/uL 4.2-5.4 [facility] Work Phone: [phone] Blood hemoglobin measurement (mass/volume)on 06-24-2022 Hemoglobin (Bld) [Mass/Vol] 13.0 g/dL 12.0-15.0 [facility] Work Phone: [phone] Blood lymphocytes/100 leukoc yteson 06-24-2022 Lymphocytes/100 WBC (Bld) 24.3 % 19-41 [facility] Work Phone: [phone] Blood monocytes/100 leukocyt eson 06-24-2022 Monocytes/100 WBC (Bld) 9.7 % 0-10 [facility] Work Phone: [phone] Blood platelet mean volumeon 06-24-2022 Platelet mean volume (Bld) [Entitic vol] 10.1 fL 6.2-12.0 [facility] Work Phone: [phone] Determination of erythrocyte mean corpuscular volume (MCV)on 06-24-2022 MCV (RBC) [Entitic vol] 92.3 fL 81-99 [facility] Work Phone: [phone] Hematocrit Auto (Bld) [Volum e fraction]on 06-24-2022 Hematocrit (Bld) [Volume fraction] 39.4 % 37-47 [facility] Work Phone: [phone] Laboratory - Chemistry and C hemistry - challengeon 06-24-2022 CO2 [Moles/Vol] 31.0 mmol/L 21.0-32.0 [facility] Work Phone: [phone] Magnesium [Mass/Vol] 2.4 mg/dL 1.6-2.6 [facility] Work Phone: [phone] Urea nitrogen/Creatinine [Mass ratio] 18.8 mg/mg 10-20 [facility] Work Phone: [phone] Laboratory - Hematology and Cell countson 06-24-2022 Erythrocyte distribution width (RBC) [Entitic vol] 41.0 fL 35.1-43.9 [facility] Work Phone: [phone] Erythrocyte distribution width (RBC) [Ratio] 12.2 % 11.6-14.6 [facility] Work Phone: [phone] Immature granulocytes/100 WBC (Bld) 0.700 % 0.0-0.9 [facility] Work Phone: [phone] Comment on above: IG% - Immature Granu locytes (promyelocytes, myelocytes and metamyelocytes) > 1% indicates that a LEFT SHIFT is Present. MCH (RBC) [Entitic mass] 30.4 pg 27.0-32.0 [facility] Work Phone: [phone] Nucleated RBC/100 WBC (Bld) [Ratio] 0 % 0-5 [facility] Work Phone: [phone] MCHC Auto (RBC) [Mass/Vol]on 06-24-2022 MCHC (RBC) [Mass/Vol] 33.0 g/dL 32-36 [facility] Work Phone: [phone] Panel Informationon 06-24 Estimated GFR (MDRD) Amer 81 mL/min >60 [facility] Work Phone: [phone] Comment on above: GFR Calc Estimated GFR (MDRD) Non-Af Amer 67 mL/min >60 [facility] Work Phone: Comment on above: Non- GFR Calc Platelets bldon 06-24-2022 Platelets (Bld) [#/Vol] 433 10*3/uL 150-450 [facility] Work Phone: Serum or plasma calcium kyree urement (mass/volume)on 06-24-2022 Calcium [Mass/Vol] 9.7 mg/dL 8.5-10.1 [facility] Work Phone: [phone] Serum or plasma creatinine m easurement (mass/volume)on 06-24-2022 Creatinine [Mass/Vol] 0.90 mg/dL 0.55-1.02 [facility] Work Phone: Comment on above: The validity of the calculated GFR & GFRAA in patients over 70 years has not been determined. Clinical correlation is essential. Serum or plasma urea nitroge n measurement (mass/volume)on 06-24-2022 Urea nitrogen [Mass/Vol] 17 mg/dL 7-18 [facility] Work Phone: Thin prep Papanicolaou smear with manual screeningon 06-24-2022 Thin prep Papanicolaou smear with manual screening 4 5-15 [facility] Work Phone: [phone] Laboratory - Chemistry and C hemistry - challengeon 06-09-2022 Cobalamin (Vitamin B12) [Mass/Vol] 362 pg/mL 211-911 [facility] Work Phone: [phone] Free T4 [Mass/Vol] 1.10 ng/dL 0.76-1.46 [facility] Work Phone: [phone] Panel Informationon 06-09 Thyroid Stimulating Hormone (TSH) 1.73 uIU/mL 0.358-3.74 [facility] Work Phone: Basophil percentageon 2021 Bilirubin [Mass/Vol] 0.40 mg/dL 0.20-1.00 [facility] Work Phone: Comment on above: For patients on eltr ombopag therapy, use of Dimension [place] TBIL is not recommended. Cholesterol [Mass/Vol] 162 mg/dL <200 [facility] Work Phone: Comment on above: <200 mg/dL Desirable 200-240 mg/dL Borderline >240 mg/dL High Risk Protein [Mass/Vol] 7.2 g/dL 6.4-8.2 [facility] Work Phone: [phone] Triglyceride [Mass/Vol] 85 mg/dL <199 [facility] Work Phone: [phone] Comment on above: The drugs N-Acetylcy steine and Metamizole may falsely depress this assay.Serum Triglycerides Reference Interval Normal <150 mg/dL Borderline high 150 - 199 mg/dL High 200 - 499 mg/dL Very High > or = 500 mg/dL Direct bilirubinon 2 Bilirubin.direct [Mass/Vol] 0.10 mg/dL 0.00-0.30 [facility] Work Phone: [phone] Laboratory - Chemistry and C hemistry - challengeon 05-15-2022 ALP [Catalytic activity/Vol] 80 U/L 45-117 [facility] Work Phone: [phone] ALT [Catalytic activity/Vol] 19 U/L 13-56 [facility] Work Phone: [phone] Globulin (S) [Mass/Vol] 3.6 g/dL 2.2-4.2 [facility] Work Phone: [phone] Serum or plasma albumin kyree urement (mass/volume)on 05-15-2022 Albumin [Mass/Vol] 3.6 g/dL 3.2-5.0 [facility] Work Phone: [phone] Serum or plasma cholesterol in HDL measurement (mass/volume)on 05-15-2022 Cholesterol in HDL [Mass/Vol] 56 mg/dL >40 [facility] Work Phone: Comment on above: The drugs N-Acetylcy steine and Metamizole may falsely depress this assay. Reference Range HDL <40 mg/dL Low HDL Cholesterol HDL >or= 60 mg/dL High HDL Cholesterol Serum or plasma cholesterol in VLDL measurement (mass/volume)on 05-15-2022 Cholesterol in VLDL [Mass/Vol] 17 mg/dL 5-40 [facility] Work Phone: Serum or plasma low density lipoprotein (LDL) cholesterol measurement (mass/volume)on 05-15-2022 Cholesterol in LDL [Mass/Vol] 89 mg/dL 0-130 [facility] Work Phone: Thin prep Papanicolaou smear with manual screeningon 05-15-2022 Thin prep Papanicolaou smear with manual screening 13 U/L 15-37 [facility] Work Phone: CNPNon 05-22-2020 [facility] Telephone ([facility]) LEEANN CROCKETT ([id number]) 1960 F Date Time Provider Department 05/22/20 NUSRAT HOLLAND [facility] During your visit today, we recorded the following information about you: Sara Serrano TONIO 05/22/2020 11:01 AM Signed Patient calling was in urgent care 05/19 and put on bactrim rx. Patient said she has been sick Wednesday and Wednesday lightheaded, nausea, almost going to ER. Patient stopped taking the bactrim rx not taken any today. Patient asking if rx needs changed? Patient uses [facility] for her pharmacy. Please advise Leeroy Toney [...] Status:Closed by LEEANN SAMSON LPN on 05/22/20 [facility] CNOVon 05-19-2020 CNOV Office Visit (UCWSTR ) LEEANN CROCKETT ([id number]) 1960 F Date Time Provider Department 05/19/20 8:15 AM NUSRAT HOLLAND [facility] During your visit today, we recorded the following information about you: Temperature Pulse Respiration Blood pressure 98.6 degrees 102/minute 16/minute 108/82 Weight 74.1 kg Nusrat Holland APRN.CNP 05/19/2020 8:46 AM Signed ASSESSMENT/PLAN: 1. Right [...] UA DIP, URINE (POC) - URINE CULTURE Nusratfaizan LorenzoBRODY bai 05/19/2020 8:53 AM Signed Subjective HPI HPI [...] have confirmed and edited as necessary, the [facility] Review of Systems Constitutional: Negative for [...] detail warranting prompt ER evaluation. Nusrat Holland APRN.SENIOR SOFTWARE QUALITY ENGINEER Referring Provider: SELF [200] Allergies As of [...] [N39.0] Dysuria [R30.0] Order(s):UA DIP, URINE (POC) [3300105] Order #: [id number]. #:[id number] URINE CULTURE [SQURCUL] Order #: [id number] sulfamethoxazole-trime thoprim (BACTRIM DS) 800-160 mg per [...] by NUSRAT HOLLAND CNP on 05/19/20 Normal [facility] PROGRESSon 05-19-2020 PROGRESS HNO ID: [id number] Author: Nusrat Holland Service: ? Author Type: [...] have confirmed and edited as necessary, the [facility] Review of Systems Constitutional: Negative for [...] detail warranting prompt ER evaluation. Nusrat Holland APRN.SENIOR SOFTWARE QUALITY ENGINEER Normal [facility] Urine Cultureon 05-19-2020 Bacteria identified Cx [...] F Ertapenem SUSCEPTIBLE <=0.5 F Critically abnormal [facility] Comment on above: Performed By: #### U [facility] #### [facility] [address] [place] [address] Vital Signs Date Time Vital Sign Value Performing Clinician Facility 08-01-2025 10:49-0400 Body height 157.[address] Yennifer Johnson MD Work Phone: [facility] 08-01-2025 10:49-0400 Body mass index (BMI) [Ratio] 29.3 kg/m2 Dr. Yennifer Johnson MD Work Phone: [facility] 08-01-2025 10:49-0400 Body temperature 98.4 [degF] Dr. Yennifer Johnson MD Work Phone: [facility] 08-01-2025 10:49-0400 Body weight 72.[address] Yennifer Johnson MD Work Phone: [facility] 08-01-2025 10:49-0400 Diastolic blood pressure 82 mm[Hg] Dr. Yennifer Johnson MD Work Phone: [facility] 08-01-2025 10:49-0400 Heart rate 69 /min Dr. Yennifer Johnson MD Work Phone: [facility] 08-01-2025 10:49-0400 Respiratory rate 16 /min Dr. Yennifer Johnson MD Work Phone: [facility] 08-01-2025 10:49-0400 SaO2% (BldA) [Mass fraction] 99 % Dr. Yennifer Johnson MD Work Phone: [facility] 08-01-2025 10:49-0400 Systolic blood pressure 121 mm[Hg] Dr. Yennifer Johnson MD Work Phone: [facility] 07-27-2025 08:48-0400 Body height 157.[address] Yennifer Johnson MD Work Phone: [facility] 07-27-2025 08:48-0400 Body mass index (BMI) [Ratio] 29.6 kg/m2 Dr. Yennifer Johnson MD Work Phone: [facility] 07-27-2025 08:48-0400 Body weight 73.[address] Yennifer Johnson MD Work Phone: [facility] 07-27-2025 08:48-0400 Diastolic blood pressure 80 mm[Hg] Dr. Yennifer Johnson MD Work Phone: [facility] 07-27-2025 08:48-0400 Heart rate 76 /min Dr. Yennifer Johnson MD Work Phone: [facility] 07-27-2025 08:48-0400 Respiratory rate 18 /min Dr. Yennifer Johnson MD Work Phone: [facility] 07-27-2025 08:48-0400 SaO2% (BldA) [Mass fraction] 98 % Dr. Yennifer Johnson MD Work Phone: [facility] 07-27-2025 08:48-0400 Systolic blood pressure 125 mm[Hg] Dr. Yennifer Johnson MD Work Phone: [facility] 07-27-2025 07:44-0400 Body height 157.[address] Yennifer Johnson MD Work Phone: [facility] 07-27-2025 07:44-0400 Body mass index (BMI) [Ratio] 29.7 kg/m2 Dr. Yennifer Johnson MD Work Phone: [facility] 07-27-2025 07:44-0400 Body temperature 97.5 [degF] Dr. Yennifer Johnson MD Work Phone: [facility] 07-27-2025 07:44-0400 Body weight 73.[address] Yennifer Johnson MD Work Phone: [facility] 07-27-2025 07:44-0400 Diastolic blood pressure 68 mm[Hg] Dr. Yennifer Johnson MD Work Phone: [facility] 07-27-2025 07:44-0400 Heart rate 75 /min Dr. Yennifer Johnson MD Work Phone: [facility] 07-27-2025 07:44-0400 Respiratory rate 16 /min Dr. Yennifer Johnson MD Work Phone: [facility] 07-27-2025 07:44-0400 SaO2% (BldA) [Mass fraction] 99 % Dr. Yennifer Johnson MD Work Phone: [facility] 07-27-2025 07:44-0400 Systolic blood pressure 128 mm[Hg] Dr. Yennifer Johnson MD Work Phone: [facility] 05-28-2025 07:36-0400 Body height 157.[address] Yennifer Johnson MD Work Phone: [facility] 05-28-2025 07:36-0400 Body mass index (BMI) [Ratio] 28.9 kg/m2 Dr. Yennifer Johnson MD Work Phone: [facility] 05-28-2025 07:36-0400 Body temperature 97 [degF] Dr. Yennifer Johnson MD Work Phone: [facility] 05-28-2025 07:36-0400 Body weight 71.[address] Yennifer Johnson MD Work Phone: [facility] 05-28-2025 07:36-0400 Diastolic blood pressure 68 mm[Hg] Dr. Yennifer Johnson MD Work Phone: [facility] 05-28-2025 07:36-0400 Heart rate 72 /min Dr. Yennifer Johnson MD Work Phone: [facility] 05-28-2025 07:36-0400 Respiratory rate 16 /min Dr. Yennifer Johnson MD Work Phone: [facility] 05-28-2025 07:36-0400 SaO2% (BldA) [Mass fraction] 98 % Dr. Yennifer Johnson MD Work Phone: [facility] 05-28-2025 07:36-0400 Systolic blood pressure 120 mm[Hg] Dr. Yennifer Johnson MD Work Phone: [facility] 05-02-2025 09:01-0400 Body height 157.[address] Yennifer Johnson MD Work Phone: [facility] 05-02-2025 09:01-0400 Body mass index (BMI) [Ratio] 29 kg/m2 Dr. Yennifer Johnson MD Work Phone: [facility] 05-02-2025 09:01-0400 Body weight 71.[address] Yennifer Johnson MD Work Phone: [facility] 05-02-2025 09:01-0400 Diastolic blood pressure 68 mm[Hg] Dr. Yennifer Johnson MD Work Phone: [facility] 05-02-2025 09:01-0400 Heart rate 67 /min Dr. Yennifer Johnson MD Work Phone: [facility] 05-02-2025 09:01-0400 Respiratory rate 15 /min Dr. Yennifer Johnson MD Work Phone: [facility] 05-02-2025 09:01-0400 SaO2% (BldA) [Mass fraction] 97 % Dr. Yennifer Johnson MD Work Phone: [facility] 05-02-2025 09:01-0400 Systolic blood pressure 124 mm[Hg] Dr. Yennifer Johnson MD Work Phone: [facility] 04-26-2025 13:01-0400 Body height 157.[address] Yennifer Johnson MD Work Phone: [facility] 04-26-2025 13:01-0400 Body mass index (BMI) [Ratio] 28.7 kg/m2 Dr. Yennifer Johnson MD Work Phone: [facility] 04-26-2025 13:01-0400 Body weight 71.[address] Yennifer Johnson MD Work Phone: [facility] 04-26-2025 13:01-0400 Diastolic blood pressure 72 mm[Hg] Dr. Yennifer Johnson MD Work Phone: [facility] 04-26-2025 13:01-0400 Heart rate 82 /min Dr. Yennifer Johnson MD Work Phone: [facility] 04-26-2025 13:01-0400 Respiratory rate 18 /min Dr. Yennifer Johnson MD Work Phone: [facility] 04-26-2025 13:01-0400 Systolic blood pressure 118 mm[Hg] Dr. Yennifer Johnson MD Work Phone: [facility] 04-04-2024 12:06-0400 Body temperature 98.4 [degF] Tin West MD Work Phone: [facility] 04-04-2024 12:06-0400 Diastolic blood pressure 66 mm[Hg] Tin West MD Work Phone: [facility] 04-04-2024 12:06-0400 Respiratory rate 16 /min Tin West MD Work Phone: [facility] 04-04-2024 12:06-0400 SaO2% (BldA) [Mass fraction] 99 % Tin West MD Work Phone: [facility] 04-04-2024 12:06-0400 Systolic blood pressure 133 mm[Hg] Tin West MD Work Phone: [facility] 04-04-2024 03:27-0400 Body mass index (BMI) [Ratio] 32.5 kg/m2 Tin West MD Work Phone: [facility] 04-04-2024 03:27-0400 Body weight 80.6 kg Tin West MD Work Phone: [facility] 04-03-2024 12:15-0400 Heart rate 76 /min Tin West MD Work Phone: [facility] 12-16-2023 13:11-0500 Body height 157.[address] Yennifer Johnson Work Phone: [facility] 12-16-2023 13:11-0500 Body mass index (BMI) [Ratio] 29.2 kg/m2 Dr. Yennifer Johnson Work Phone: [facility] 12-16-2023 13:11-0500 Body weight 72.[address] Yennifer Johnson Work Phone: [facility] 12-16-2023 13:11-0500 Diastolic blood pressure 77 mm[Hg] Dr. Yennifer Johnson Work Phone: [facility] 12-16-2023 13:11-0500 Heart rate 73 /min Dr. Yennifer Johnson Work Phone: [facility] 12-16-2023 13:11-0500 Respiratory rate 18 /min Dr. Yennifer Johnson Work Phone: [facility] 12-16-2023 13:11-0500 SaO2% (BldA) [Mass fraction] 97 % Dr. Yennifer Johnson Work Phone: [facility] 12-16-2023 13:11-0500 Systolic blood pressure 123 mm[Hg] Dr. Yennifer Johnson Work Phone: [facility] 10-06-2023 11:20-0500 Body height 157.[address] Yennifer Johnson Work Phone: [facility] 10-06-2023 11:20-0500 Body mass index (BMI) [Ratio] 27.8 kg/m2 Dr. Yennifer Johnson Work Phone: [facility] 10-06-2023 11:20-0500 Body temperature 98.2 [degF] Dr. Yennifer Johnson Work Phone: [facility] 10-06-2023 11:20-0500 Body weight 68.[address] Yennifer Johnson Work Phone: [facility] 10-06-2023 11:20-0500 Diastolic blood pressure 63 mm[Hg] Dr. Yennifer Johnson Work Phone: [facility] 10-06-2023 11:20-0500 Heart rate 92 /min Dr. Yennifer Johnson Work Phone: [facility] 10-06-2023 11:20-0500 Respiratory rate 16 /min Dr. Yennifer Johnson Work Phone: [facility] 10-06-2023 11:20-0500 SaO2% (BldA) [Mass fraction] 96 % Dr. Yennifer Johnson Work Phone: [facility] 10-06-2023 11:20-0500 Systolic blood pressure 100 mm[Hg] Dr. Yennifer Johnson Work Phone: [facility] 09-27-2023 13:05-0500 Body mass index (BMI) [Ratio] 27.8 kg/m2 Dr. Yennifer Johnson Work Phone: [facility] 09-27-2023 13:05-0500 Body temperature 98.4 [degF] Dr. Yennifer Johnson Work Phone: [facility] 09-27-2023 13:05-0500 Body weight 71.[address] Yennifer Johnson Work Phone: [facility] 09-27-2023 13:05-0500 Diastolic blood pressure 80 mm[Hg] Dr. Yennifer Johnson Work Phone: [facility] 09-27-2023 13:05-0500 Heart rate 77 /min Dr. Yennifer Johnson Work Phone: [facility] 09-27-2023 13:05-0500 Respiratory rate 16 /min Dr. Yennifer Johnson Work Phone: [facility] 09-27-2023 13:05-0500 SaO2% (BldA) [Mass fraction] 98 % Dr. Yennifer Johnson Work Phone: [facility] 09-27-2023 13:05-0500 Systolic blood pressure 120 mm[Hg] Dr. Yennifer Johnson Work Phone: [facility] 07-12-2023 09:13-0400 Body mass index (BMI) [Ratio] 27.4 kg/m2 Dr. Yennifer Johnson Work Phone: [facility] 07-12-2023 09:13-0400 Body weight 70.[address] Yennifer Johnson Work Phone: [facility] 07-12-2023 09:13-0400 Diastolic blood pressure 84 mm[Hg] Dr. Yennifer Johnson Work Phone: [facility] 07-12-2023 09:13-0400 Heart rate 69 /min Dr. Yennifer Johnson Work Phone: [facility] 07-12-2023 09:13-0400 Respiratory rate 18 /min Dr. Yennifer Johnson Work Phone: [facility] 07-12-2023 09:13-0400 SaO2% (BldA) [Mass fraction] 98 % Dr. Yennifer Johnson Work Phone: [facility] 07-12-2023 09:13-0400 Systolic blood pressure 129 mm[Hg] Dr. Yennifer Johnson Work Phone: [facility] 02-24-2023 13:25-0400 Body temperature 98.5 [degF] Dr. Yennifer Johnson Work Phone: [facility] 02-24-2023 13:25-0400 Diastolic blood pressure 77 mm[Hg] Dr. Yennifer Johnson Work Phone: [facility] 02-24-2023 13:25-0400 Heart rate 67 /min Dr. Yennifer Johnson Work Phone: [facility] 02-24-2023 13:25-0400 Respiratory rate 16 /min Dr. Yennifer Johnson Work Phone: [facility] 02-24-2023 13:25-0400 SaO2% (BldA) [Mass fraction] 99 % Dr. Yennifer Johnson Work Phone: [facility] 02-24-2023 13:25-0400 Systolic blood pressure 138 mm[Hg] Dr. Yennifer Johnson Work Phone: [facility] 02-24-2023 06:15-0400 Body height 160.[address] Yennifer Johnson Work Phone: [facility] 02-24-2023 06:15-0400 Body mass index (BMI) [Ratio] 28 kg/m2 Dr. Yennifer Johnson Work Phone: [facility] 02-24-2023 06:15-0400 Body weight [address] Yennifer Johnson Work Phone: [facility] 07-27-2022 13:39-0400 Body height 160.[address] Yennifer Johnson Work Phone: [facility] 07-27-2022 13:39-0400 Body mass index (BMI) [Ratio] 28.7 kg/m2 Dr. Yennifer Johnson Work Phone: [facility] 07-27-2022 13:39-0400 Body temperature 97.5 [degF] Dr. Yennifer Johnson Work Phone: [facility] 07-27-2022 13:39-0400 Body weight 73.[address] Yennifer Johnson Work Phone: [facility] 07-27-2022 13:39-0400 Diastolic blood pressure 80 mm[Hg] Dr. Yennifer Johnson Work Phone: [facility] 07-27-2022 13:39-0400 Heart rate 83 /min Dr. Yennifer Johnson Work Phone: [facility] 07-27-2022 13:39-0400 Respiratory rate 14 /min Dr. Yennifer Johnson Work Phone: [facility] 07-27-2022 13:39-0400 SaO2% (BldA) [Mass fraction] 98 % Dr. Yennifer Johnson Work Phone: [facility] 07-27-2022 13:39-0400 Systolic blood pressure 130 mm[Hg] Dr. Yennifer Johnson Work Phone: [facility] 07-10-2022 10:57-0400 Body mass index (BMI) [Ratio] 28.7 kg/m2 Dr. Yennifer Johnson Work Phone: [facility] Work Phone: 07-10-2022 10:57-0400 Body temperature 97.2 [degF] Dr. Yennifer Johnson Work Phone: [facility] Work Phone: 07-10-2022 10:57-0400 Body weight 73.[address] Yennifer Johnson Work Phone: [facility] Work Phone: 07-10-2022 10:57-0400 Diastolic blood pressure 80 mm[Hg] Dr. Yennifer Johnson Work Phone: [facility] Work Phone: 07-10-2022 10:57-0400 Heart rate 71 /min Dr. Yennifer Johnson Work Phone: [facility] Work Phone: 07-10-2022 10:57-0400 Respiratory rate 16 /min Dr. Yennifer Johnson Work Phone: [facility] Work Phone: 07-10-2022 10:57-0400 SaO2% (BldA) [Mass fraction] 98 % Dr. Yennifer Johnson Work Phone: [facility] Work Phone: 07-10-2022 10:57-0400 Systolic blood pressure 122 mm[Hg] Dr. Yennifer Johnson Work Phone: [facility] Work Phone: 07-01-2022 08:03-0400 Body mass index (BMI) [Ratio] 28.8 kg/m2 Dr. Yennifer Johnson Work Phone: [facility] Work Phone: 07-01-2022 08:03-0400 Body temperature 98.3 [degF] Dr. Yennifer Johnson Work Phone: [facility] Work Phone: 07-01-2022 08:03-0400 Body weight 73.[address] Yennifer Johnson Work Phone: [facility] Work Phone: 07-01-2022 08:03-0400 Diastolic blood pressure 80 mm[Hg] Dr. Yennifer Johnson Work Phone: [facility] Work Phone: 07-01-2022 08:03-0400 Heart rate 85 /min Dr. Yennifer Johnson Work Phone: [facility] Work Phone: 07-01-2022 08:03-0400 Respiratory rate 18 /min Dr. Yennifer Johnson Work Phone: [facility] Work Phone: 07-01-2022 08:03-0400 SaO2% (BldA) [Mass fraction] 98 % Dr. Yennifer Johnson Work Phone: [facility] Work Phone: 07-01-2022 08:03-0400 Systolic blood pressure 130 mm[Hg] Dr. Yennifer Johnson Work Phone: [facility] Work Phone: 06-24-2022 14:49-0400 Body height 160.[address] Yennifer Johnson Work Phone: [facility] Work Phone: 06-24-2022 14:49-0400 Body mass index (BMI) [Ratio] 28.8 kg/m2 Dr. Yennifer Johnson Work Phone: [facility] Work Phone: 06-24-2022 14:49-0400 Body weight 73.[address] Yennifer Johnson Work Phone: [facility] Work Phone: 06-24-2022 14:49-0400 Diastolic blood pressure 79 mm[Hg] Dr. Yennifer Johnson Work Phone: [facility] Work Phone: 06-24-2022 14:49-0400 Heart rate 82 /min Dr. Yennifer Johnson Work Phone: [facility] Work Phone: 06-24-2022 14:49-0400 Respiratory rate 18 /min Dr. Yennifer Johnson Work Phone: [facility] Work Phone: 06-24-2022 14:49-0400 SaO2% (BldA) [Mass fraction] 97 % Dr. Yennifer Johnson Work Phone: [facility] Work Phone: 06-24-2022 14:49-0400 Systolic blood pressure 131 mm[Hg] Dr. Yennifer Johnson Work Phone: [facility] Work Phone: 06-09-2022 14:55-0400 Body height 160.[address] Yennifer Johnson Work Phone: [facility] Work Phone: 06-09-2022 14:55-0400 Body mass index (BMI) [Ratio] 28.3 kg/m2 Dr. Yennifer Johnson Work Phone: [facility] Work Phone: 06-09-2022 14:55-0400 Body temperature 97.9 [degF] Dr. Yennifer Johnson Work Phone: [facility] Work Phone: 06-09-2022 14:55-0400 Body weight 72.[address] Yennifer Johnson Work Phone: [facility] Work Phone: 06-09-2022 14:55-0400 Diastolic blood pressure 82 mm[Hg] Dr. Yennifer Johnson Work Phone: [facility] Work Phone: 06-09-2022 14:55-0400 Heart rate 80 /min Dr. Yennifer Johnson Work Phone: [facility] Work Phone: 06-09-2022 14:55-0400 Respiratory rate 14 /min Dr. Yennifer Johnson Work Phone: [facility] Work Phone: 06-09-2022 14:55-0400 SaO2% (BldA) [Mass fraction] 98 % Dr. Yennifer Johnson Work Phone: [facility] Work Phone: 06-09-2022 14:55-0400 Systolic blood pressure 134 mm[Hg] Dr. Yennifer Johnson Work Phone: [facility] Work Phone: 05-04-2022 18:49-0400 Diastolic blood pressure 74 mm[Hg] [facility] Work Phone: 05-04-2022 18:49-0400 Heart rate 74 /min [facility] Work Phone: 05-04-2022 18:49-0400 Respiratory rate 16 /min [facility] Work Phone: 05-04-2022 18:49-0400 Systolic blood pressure 132 mm[Hg] [facility] Work Phone: 05-04-2022 16:54-0400 Body height 160.02 cm [facility] Work Phone: 05-04-2022 16:54-0400 Body mass index (BMI) [Ratio] 30.4 kg/m2 [facility] Work Phone: 05-04-2022 16:54-0400 Body temperature 97.1 [degF] [facility] Work Phone: 05-04-2022 16:54-0400 Body weight 77.9 kg [facility] Work Phone: 05-04-2022 16:54-0400 SaO2% (BldA) [Mass fraction] 100 % [facility] Work Phone: Encounters Encounter Date Encounter Type Care Provider Facility Start: 08-08-2025 End: 08-08-2025 ambulatory Yennifer Araujoe Facility:[facility] Start: 08-02-2025 [facility] Start: 08-01-2025 End: 08-01-[address] Cy Peterson MD -[facility] Work Phone: Start: 08-01-[address] Cy Peterson MD [facility] Start: 08-01-2025 End: 08-01-[address] Yennifer Johnson MD Work Phone: [facility] Start: 08-01-2025 Patient encounter procedure Karlie Johnson OPERATIONS SUPERVISOR 2ND [employer]-C -Cardiovascular Services Work Phone: Start: 08-01-2025 ambulatory [facility] Start: 07-27-2025 End: 07-27-2025 Patient encounter procedure Karlie Johnson OPERATIONS SUPERVISOR 2ND SHIFT-C -[facility] Work Phone: Start: 07-27-2025 End: 07-27-[address] Yennifer Johnson MD Work Phone: [facility] Start: 07-27-2025 End: 07-27-[address] Yennifer Johnson MD -[facility] Work Phone: Start: 07-27-2025 End: 07-27-[address] Yennifer Johnson MD Work Phone: -[facility] Start: 05-28-2025 Encounter for genera l adult medical examination without abnormal findings [facility] Start: 05-28-2025 End: 05-28-[address] Yennifer Johnson MD -[facility] Work Phone: Start: 05-28-2025 End: 05-28-[address] Yennifer Johnson MD [facility] Start: 05-28-2025 End: 05-28-[address] Yennifer Johnson MD Work Phone: -[facility] Start: 05-14-2025 Non-patient / Non-visit Karlie rdz OPERATIONS SUPERVISOR 2ND SHIFT-C -[facility] Work Phone: Start: 05-14-2025 ambulatory Yennifer Jennings ty:[facility] Start: 05-12-2025 Non-patient / Non-visit Dr. Gina SWARTZ -[facility] Start: 05-12-2025 End: 05-12-[address] Yennifer Johnson MD Work Phone: -Cardiovascular Services Start: 05-12-2025 End: 05-12-2025 Patient encounter procedure Karlie Johnson OPERATIONS SUPERVISOR 2ND SH[employer]-C -Cardiovascular Services Work Phone: Start: 05-11-2025 Non-patient / Non-visit Dr. Gina SWARTZ -[facility] Work Phone: Start: 05-11-2025 End: 05-12-[address] Yennifer Johnson MD Work Phone: -Pulmonary Services/Neurology Start: 05-11-2025 End: 05-11-2025 Patient encounter procedure Karlie Johnson OPERATIONS SUPERVISOR 2ND SHIFT-C -Pulmonary Services/Neurology Work Phone: Start: 05-11-2025 End: 05-11-2025 ambulatory Karlie Johnson OPERATIONS SUPERVISOR 2ND SHIFT Facility:[facility] Start: 05-02-2025 End: 05-02-[address] Cy Peterson MD -[facility] Work Phone: Start: 05-02-2025 End: 05-02-[address] Yennifer Johnson MD Work Phone: -[facility] Start: 04-26-2025 End: 04-26-2025 Patient encounter procedure Karlie Johnson OPERATIONS SUPERVISOR 2ND SHIFT-C -[facility] Work Phone: Start: 04-26-2025 End: 04-26-[address] Yennifer Johnson MD Work Phone: -[facility] Start: 04-26-2025 End: 04-26-2025 ambulatory Karlie Johnson OPERATIONS SUPERVISOR 2ND SHIFT Facility:[facility] Start: 03-24-2025 End: 03-24-[address] Yennifer Jhonson MD Work Phone: [facility] Work Phone: Start: 03-24-2025 End: 03-24-2025 Patient encounter procedure Larry Rodriguez OPERATIONS SUPERVISOR 2ND SHIFT-C -Laboratory Work Phone: Start: 03-24-2025 End: 03-24-2025 ambulatory Larry Rodriguez OPERATIONS SUPERVISOR 2ND SHIFT Facility:[facility] Start: 10-24-2024 End: 10-24-2024 ambulatory Yennifer Johnson Facility:[facility] Start: 10-21-2024 End: 10-21-2024 ambulatory Karlie Johnson OPERATIONS SUPERVISOR 2ND SHIFT Facility:[facility] Start: 04-03-2024 End: 04-04-2024 Subsequent hospital visit by physician Tin West MD Work Phone: [facility] Comment on above: Arthritis of left kn ee (Primary Dx); Urinary tract infection without hematuria, site unspecified Start: 03-21-2024 End: 03-21-2024 ambulatory [facility] Start: 03-21-2024 End: 03-21-2024 Encounter for other preprocedural examination [facility] Start: 03-21-2024 End: 03-21-2024 ambulatory [facility] Start: 03-21-2024 End: 03-21-2024 Encounter for other preprocedural examination [facility] Start: 03-17-2024 ambulatory [facility] Start: 02-25-[address] Odessa Johnson MD Work Phone: [facility] Comment on above: The patient complain s of chronic dyspnea on exertion which is unchanged over several years. This dates back to the extensive evaluation that was done in 2018 including a normal left heart cath. She has had no change in her recent exercise tolerance. Her main limitation is her left knee. Start: 01-17-2024 Non-patient / Non-visit Dr. Roz Johnson Work Phone: [facility] Work Phone: Start: 01-17-2024 Non-patient / Non-visit Dr. Roz Johnson Work Phone: [facility] Start: 01-17-2024 End: 01-17-[address] Yennifer Johnson Work Phone: [facility] Work Phone: Start: 01-17-2024 End: 01-17-[address] Yennifer Johnson Work Phone: [facility]-Cardiovascula r Services Work Phone: Start: 12-27-2023 Non-patient / Non-visit Dr. Roz Johnson Work Phone: [facility] Work Phone: Start: 12-27-2023 Non-patient / Non-visit Dr. Roz Johnson Work Phone: [facility] Start: 12-27-2023 End: 12-27-[address] Yennifer Johnson Work Phone: [facility]-Cardiovasla r Services Work Phone: Start: 12-20-[address] Elder Johnson Work Phone: [facility]-Cardiovasla r Services Work Phone: Start: 12-16-2023 End: 12-16-[address] Yennifer Johnson Work Phone: [facility] Work Phone: Start: 12-16-2023 End: 12-16-[address] Yennifer Johnson Work Phone: [facility] Work Phone: Start: 10-21-2023 End: 10-21-[address] Yennifer Johnson Work Phone: [facility] Work Phone: Start: 10-21-2023 End: 10-21-[address] Yennifer Johnson Work Phone: [facility]-Outpatient Breast Imaging Work Phone: Start: 10-06-2023 End: 10-06-[address] Yennifer Johnson Work Phone: [facility] Work Phone: Start: 09-27-2023 End: 09-27-2023 Encounter for general adult medical examination without abnormal findings Dr. Yennifer Johnson Work Phone: [facility] Start: 09-27-2023 End: 09-27-[address] Yennifer Johnson Work Phone: [facility] Internal Medicine Work Phone: Start: 07-12-2023 End: 07-12-[address] Yennifer Johnson Work Phone: [facility] Work Phone: Start: 07-03-2023 End: 07-03-[address] Yennifer Johnson Work Phone: [facility] Work Phone: Start: 07-03-2023 End: 07-03-[address] Yennifer Johnson Work Phone: [facility]-Laboratory Work Phone: Start: 05-05-2023 End: 05-05-[address] Yennifer Johnson Work Phone: [facility] Work Phone: Start: 05-05-2023 End: 05-05-[address] Yennifer Johnson Work Phone: [facility]-Physical Therapy Work Phone: Start: 04-06-2023 End: 04-06-[address] Yennifer Johnson Work Phone: [facility] Work Phone: Start: 03-26-[address] Robert Johnson Work Phone: [facility]-Physical Therapy Start: 03-16-2023 End: 03-16-[address] Yennifer Johnson Work Phone: [facility] Work Phone: Start: 03-16-2023 End: 03-16-[address] Yennifer Johnson Work Phone: [facility]-Laboratory Start: 03-09-2023 End: 03-09-[address] Yennifer Johnson Work Phone: [facility] Start: 02-26-2023 End: 02-26-[address] Yennifer Johnson Work Phone: [facility] Start: 02-24-2023 Non-patient / Non-visit Dr. Roz Johnson Work Phone: [facility] Start: 02-24-2023 End: 02-24-2023 Admission to same day surgery center Dr. Yennifer Johnson Work Phone: [facility]-Surgical Day Care Start: 02-24-2023 End: 02-24-[address] Yennifer Johnson Work Phone: [facility] Work Phone: Start: 02-04-2023 End: 02-04-[address] Yennifer Johnson Work Phone: [facility] Start: 02-02-2023 End: 02-02-[address] Yennifer Johnson Work Phone: [facility] Work Phone: Start: 02-02-2023 End: 02-02-[address] Yennifer Johnson Work Phone: [facility]-MRI - [facility] Start: 01-19-2023 End: 01-19-[address] Yennifer Johnson Work Phone: [facility] Start: 10-31-2022 End: 10-31-[address] Yennifer Johnsno Work Phone: [facility] Work Phone: Start: 10-31-2022 End: 10-31-[address] Yennifer Johnson Work Phone: [facility]-Laboratory Start: 09-28-2022 End: 09-28-[address] Yennifer Johnson Work Phone: [facility] Work Phone: Start: 09-28-2022 End: 09-28-[address] Yennifer Johnson Work Phone: [facility]-Outpatient Breast Imaging Start: 08-06-2022 End: 08-06-[address] Yennifer Johnson Work Phone: [facility] Start: 07-28-2022 End: 07-28-[address] Yennifer Johnson Work Phone: [facility] Work Phone: Start: 07-28-2022 End: 07-28-[address] Yennifer Johnson Work Phone: [facility]-Ultrasound, [facility] Start: 07-27-2022 End: 07-27-[address] Yennifer Johnson Work Phone: [facility] Internal Medicine Start: 07-10-2022 End: 07-10-[address] Yennifer Johnson Work Phone: [facility] Internal Medicine Start: 07-01-[address] Elder Johnson Work Phone: [facility]-Cardiovascula r Services Start: 07-01-2022 End: 07-01-2022 Encounter for general adult medical examination without abnormal findings Dr. Yennifer Johnson Work Phone: [facility] Start: 07-01-2022 End: 07-01-2022 Non-patient / Non-visit Dr. Yennifer Johnson Work Phone: [facility] Start: 06-24-2022 End: 06-24-[address] Yennifer Johnson Work Phone: [facility] Work Phone: Start: 06-24-2022 End: 06-24-[address] Yennifer Johnson Work Phone: [facility] Start: 06-09-2022 End: 06-09-[address] Yennifer Johnson Work Phone: [facility]-Laboratory, [facility] Start: 06-09-2022 End: 06-09-[address] Yennifer Johnson Work Phone: [facility] Internal Medicine Start: 05-15-2022 End: 05-15-2022 Patient encounter procedure [facility]-Laboratory Start: 05-04-2022 End: 05-04-2022 Emergency department patient visit [facility]-Emergency Department Start: 07-08-2021 Patient encounter status [facility] Start: 04-08-2021 Patient encounter status [facility] Procedures Date Procedure Procedure Detail Performing Clinician Start: 08-01-[address] fraction Dr. Yennifer Johnson MD Work Phone: Start: 04-26-2025 Total iron binding c apacity measurement Dr. Yennifer Johnson MD Work Phone: Start: 04-04-2024 Urinalysis microscop ic panel - Urine Qualitative by Automated Keshawnalok Stevenson [employer]REE [employer]ER[employer]IOR SOFTWARE QUALITY ENGINEER Work Phone: Start: 04-04-2024 Urnls dip stick/tabl et reagent auto microscopy Keshawn Carrionland [employer]ER-SENIOR SOFTWARE QUALITY ENGINEER Work Phone: Start: 04-04-2024 Radiologic exam ches t single view Keshawn Stevenson TREE [employer]ER-SENIOR SOFTWARE QUALITY ENGINEER Work Phone: Start: 04-04-2024 Basic metabolic pane [...] Treatment Date Care Activity Detail Author Start: 08-15-2025 ambulatory Ambulatory Facility:[facility] Start: 08-01-2025 End: 08-01-2025 Lactate dehydrogenase measurement [facility] Start: 08-01-2025 End: 08-01-2025 Procedure [facility] Start: 08-01-2025 Reticulocyte count [facility] Start: 08-01-2025 End: 08-01-2025 Serum inorganic phosphate measurement [facility] Start: 08-01-2025 End: 08-01-2025 Vitamin B12 measurement [facility] Start: 08-01-2025 C reactive protein [Mass/volume] in Serum or Plasma [facility] Start: 08-01-2025 Comprehensive metabo lic 2000 panel - Serum or Plasma [facility] Start: 08-01-2025 Ferritin [Mass/volum e] in Serum or Plasma [facility] Start: 08-01-2025 Iron and Iron bindin g capacity panel - Serum or Plasma [facility] Start: 08-01-2025 Magnesium measurement [facility] Start: 08-01-2025 [facility] Start: 07-27-2025 Radionuclide imaging of perfusion of myocardium under exercise stress [facility] Start: 07-27-2025 End: 07-27-2025 Evaluation of diagnostic study results [facility] Start: 06-25-2024 Influenza vaccination Influenz a Vaccine (Season Ended) [facility] Start: 04-11-2024 End: 04-04-2025 Basic metabolic 2000 panel - Serum or Plasma Basic metabolic panel Lab Routine Arthritis of left knee Urinary tract infection without hematuria, site unspecified Expected: 04/11/2024 (Approximate), Expires: 04/04/2025 [facility] Work Phone: Comment on above: Expected: 04/11/2024 (Approximate), Expires: 04/04/2025 Start: 04-11-2024 End: 04-04-2025 CBC panel - Blood by Automated count CBC Lab Routine Arthritis of left knee Urinary tract infection without hematuria, site unspecified Expected: 04/11/2024 (Approximate), Expires: 04/04/2025 [facility] Work Phone: Comment on above: Expected: 04/11/2024 (Approximate), Expires: 04/04/2025 Start: 12-16-2023 Evaluation of diagno stic study results [facility] Start: 06-25-2023 COVID-19 Vaccine ( season) COVID-19 Vaccine () [facility] Start: 03-09-2023 Patient referral [facility] Work Phone: Start: 02-24-2023 Anes open/surg arthroscopic proc knee joint nos ANESTH KNEE JOINT SURGERY [facility] Start: 02-24-2023 Arthrs kne surg w/meniscectomy med/lat w/shvg KNEE ARTHROSCOPY/SURGERY [facility] Start: 02-24-2023 Injection aa&/strd f emoral nerve NJX AA&/STRD FEMORAL NRV IMG [facility] Start: 02-24-2023 Notification of physician [facility] Start: 02-24-2023 Application of device [facility] Start: 02-24-2023 Application of ice c ollar, cap or bag [facility] Start: 02-24-2023 Assessment of risk o f venous thromboembolism [facility] Start: 02-24-2023 Catheterization of vein [facility] Start: 02-24-2023 Deep breathing and coughing exercises [facility] Start: 02-24-2023 Following clinical p athway protocol [facility] Start: 02-24-2023 Gait training procedure [facility] Start: 02-24-2023 Incentive spirometry [facility] Start: 02-24-2023 Introduction of urin jose c catheter [facility] Start: 02-24-2023 End: 02-24-2023 Patient discharge [facility] Start: 02-24-2023 Patient education [facility] Start: 02-24-2023 Provision of activit y privileges [facility] Start: 02-24-2023 Taking patient vital signs [facility] Start: 02-24-2023 Vital signs measurements [facility] Start: 02-24-2023 End: 02-24-2023 [facility] Start: 02-24-2023 Medication education [facility] Start: 06-09-2022 Patient referral [facility] Work Phone: Start: 2020 RSV patient s and/or patients aged 60+ years (1 - 1-dose 60+ series) RSV patients and/or patients aged 60+ years (1 - 1-dose 60+ series) [facility] Start: 01-14-2016 DTaP/Tdap/Td Vaccine s (2 - Tdap) DTaP/Tdap/Td Vaccines (2 - Tdap) [facility] Start: 2010 Zoster Vaccines (1 of 2) Zoste r Vaccines (1 of 2) [facility] Start: 2000 Screening for malign ant neoplasm of breast Mammogram [facility] Start: 1978 Diabetes mellitus screening Diabetes Screening [facility] Start: 1978 Hepatitis C screening Hepatitis C Sc reening [facility] Start: 1966 Pneumococcal Vaccine : 65+ Years (1 of 2 - PCV) Pneumococcal Vaccine: 65+ Years (1 of 2 - PCV) [facility] Start: 1966 Pneumococcal Vaccine : Pediatrics (0 to 5 Years) and At-Risk Patients (6 to 64 Years) (1 of 2 - PCV) Pneumococcal Vaccine: Pediatrics (0 to 5 Years) and At-Risk Patients (6 to 64 Years) (1 of 2 - PCV) [facility] Start: 1961 MMR Vaccines (1 of 1 - Standard series) MMR Vaccines (1 of 1 - Standard series) [facility] Start: 1960 HIV screening HIV Screening [facility] Start: 1960 Lipid panel Lipid Panel [facility] Start: 1960 Screening for malign ant neoplasm of colon [facility] Start: 1960 Yearly Adult Physical Yearly Adult P hysical [facility] 24 Hour ECG [facility] Alanine aminotransfe rase [Enzymatic activity/volume] in Serum or Plasma [facility] Albumin [Mass/volume ] in Serum or Plasma [facility] Alkaline phosphatase [Enzymatic activity/volume] in Serum or Plasma [facility] Anion gap in Serum o r Plasma [facility] End: 04-04-2024 Bacteria identified in Urine by Culture [facility] Work Phone: Comment on above: Once (Lab) for 1 Occ urrences starting 04/04/2024 until 04/04/2024 Bilirubin, total measurement [facility] BUN/Creatinine ratio [facility] C reactive protein [Mass/volume] in Serum or Plasma [facility] C reactive protein [Mass/volume] in Serum or Plasma [facility] Calcium [Mass/volume ] in Serum or Plasma [facility] Carbon dioxide, tota l [Moles/volume] in Central venous blood [facility] Cardiac event recording [facility] Work Phone: CBC W Auto Different ial panel - Blood [facility] CBC W Auto Different ial panel - Blood [facility] Comprehensive metabo lic 1999 panel - Serum or Plasma [facility] metabo lic 1999 panel - Serum or Plasma [facility] Creatinine [Mass/vol ume] in Serum or Plasma [facility] Electrocardiogram, 1 2-lead PRN ACS symptoms Electrocardiogram, 12-lead PRN ACS symptoms ECG Routine As needed until discontinued starting 04/03/2024 [facility] Work Phone: Comment on above: As needed until disc ontinued starting 04/03/2024 Electrocardiogram, 1 2-lead PRN ACS symptoms Electrocardiogram, 12-lead PRN ACS symptoms ECG Routine 04/04/2024 7:42 AM EDT [facility] Work Phone: Erythrocyte sediment ation rate [facility] Erythrocyte sediment ation rate [facility] End: 04-04-[address] Tube [facility] Work Phone: Comment on above: Once for 1 Occurrenc es starting 04/04/2024 until 04/04/2024 Ferritin [Mass/volum e] in Serum or Plasma [facility] Ferritin [Mass/volum e] in Serum or Plasma [facility] Folate [Moles/volume ] in Serum or Plasma [facility] Folate [Moles/volume ] in Serum or Plasma [facility] End: 04-04-2024 Rondon Catheter Removal Rondon Catheter Removal Procedures Routine Once for 1 Occurrences starting 04/04/2024 until 04/04/2024 [facility] Work Phone: Comment on above: Once for 1 Occurrenc es starting 04/04/2024 until 04/04/2024 Glucose [Mass/volume ] in Serum or Plasma [facility] End: 04-03-2024 Incentive spirometry Instruct Incentive spirometry Instruct Respiratory Care Routine Once for 1 Occurrences starting 04/03/2024 until 04/03/2024 [facility] Work Phone: Comment on above: Once for 1 Occurrenc es starting 04/03/2024 until 04/03/2024 Iron [Mass/mass] in Unspecified specimen [facility] Iron and Iron bindin g capacity panel - Serum or Plasma [facility] Iron and Iron bindin g capacity panel - Serum or Plasma [facility] Iron saturation [Mas s Fraction] in Serum or Plasma [facility] Lactate dehydrogenas e measurement [facility] Magnesium measurement [facility] Magnesium measurement [facility] Measurement of renal function [facility] MG Breast - bilatera l Screening [facility] Work Phone: Patient Education [facility] Work Phone: [facility] Work Phone: Potassium measurement [facility] Procedure [facility] Procedure [facility] Reticulocyte count [facility] Reticulocyte count [facility] Serum chloride measurement [facility] Serum inorganic phos phate measurement [facility] Serum inorganic phos phate measurement [facility] Sodium measurement [facility] Total iron binding capacity measurement [facility] Total protein measurement [facility] Urea nitrogen [Mass/volume] in Serum or Plasma [facility] End: 04-04-2024 Urinalysis complete W Reflex Culture panel - Urine [facility] Work Phone: Comment on above: Once (Lab) for 1 Occ urrences starting 04/04/2024 until 04/04/2024 Carotid arteries [facility] US Carotid arteries [facility] Heart [facility] Heart [facility] Vitamin B12 measurement [facility] Vitamin B12 measurement [facility] Immunizations Immunization Date Immunization Notes Care Provider Fa cility 08-31-2022 influenza virus vaccine, unspecified formulation Tin West MD Work Phone: [facility] Work Phone: 06-17-2021 Covid (Pfizer) [facility] Payers Date Payer Category Payer Self-pay [id number] 2023 Unknown [id number] 2017 Unknown [id number] 2005 Unknown [id number] 1960 Unknown [id number] 2.16.8 [id number] 1960 Unknown [id number] 2.16.8 40.1.432841.3.579.2.1244 1960 Unknown [id number] 2.16.8 40.1.716194.3.579.2.1244 Medicare [id number] Unknown [id number] 2.16.8 40.1.135276.3.579.2.462 Unknown [id number] 2.16.8 40.1.550129.3.579.2.462 Unknown [id number] 2.16.8 40.1.863044.3.579.2.462 Unknown [id number] 2.16.8 40.1.694484.3.579.2.462 Unknown [id number] 2.16.8 40.1.579283.3.579.2.462 Unknown [id number] 2.16.8 40.1.287398.3.579.2.462 Unknown [id number] 2.16.8 40.1.712366.3.579.2.462 Unknown [id number] 2.16.8 40.1.101913.3.579.2.462 Unknown [id number] 2.16.8 40.1.432758.3.579.2.462 Unknown [id number] 2.16.8 40.1.797715.3.579.2.462 Unknown [id number] 2.16.8 40.1.390722.3.579.2.462 Unknown [id number] 2.16.8 40.1.695224.3.579.2.462 Unknown [id number] 2.16.8 40.1.883434.3.579.2.462 Unknown [id number] 2.16.8 40.1.044635.3.579.2.462 Unknown [id number] 2.16.8 40.1.981319.3.579.2.462 Unknown [id number] 2.16.8 40.1.037205.3.579.2.462 Unknown [id number] 2.16.8 40.1.060934.3.579.2.462 Unknown [id number] 2.16.8 40.1.986398.3.579.2.462 Unknown [id number] 2.16.8 40.1.526038.3.579.2.462 Unknown [id number] 2.16.8 40.1.261519.3.579.2.462 Unknown [id number] 2.16.8 40.1.312808.3.579.2.462 Unknown [id number] 2.16.8 40.1.458394.3.579.2.462 Social History Date Type Detail Facility Start: 05-04-2022 End: 12-16-2023 Tobacco smoking status NEIS Unknown if ever smoked [facility] Start: 07-18-2019 Non-smoker [facility] Start: 1960 Sex Assigned At Female W [facility] Start: 12-16-2023 End: 03-21-2024 Tobacco smoking status NHIS Ex-smoker [facility] Work Phone: Start: 02-23-1980 End: 02-23-1996 History of tobacco use Current smoker [facility] Work Phone: Start: 02-23-1980 End: 02-23-1996 History of tobacco use Cigarette Smoker [facility] Work Phone: Start: 03-21-2024 End: 04-03-2024 Cigarettes smoked current (pack per day) - Reported 0.4 [facility] Start: 03-21-2024 Tobacco use and exposure Smokeless tobacco non-user [facility] Work Phone: Start: 04-03-2024 Alcoholic beverage intake Current drinker of alcohol (finding) [facility] Work Phone: Start: 04-03-2024 B1300 Health Literacy [facility] How often do you nee d to have someone help you when you read instructions, pamphlets, or other written material from your doctor or pharmacy [SILS] Never [facility] Has the Firet[employer], oil, or water [employer] threatened to shut off services in your home in past 12Mo No [facility] Work Phone: Are you now , , , , never or living with a partner? [facility] Work Phone: How often to you hav e a drink containing alcohol? Never [facility] Work Phone: Do you feel stress - tense, restless, nervous, or anxious, or unable to sleep at night because your mind is troubled all the time - these days [OSQ] Not at all [facility] Work Phone: (I/We) worried whether (my/our) food would run out before (I/we) got money to buy more. Never true [facility] Work Phone: Start: 03-21-2024 Alcohol Comment Glass of wine maybe once a month [facility] Work Phone: Start: 03-19-2024 Gender identity Identifies as female gender (finding) [facility] Work Phone: Start: 03-24-2024 End: 04-03-2024 Exposure to SARS-CoV-2 (event) Not sure [facility] NEGATED: Highlighted row [facility] Medical Equipment Procedure Code Equipment Code Equipment Origin al Text Equipment Identifier Dates Breast reduction GRACE 3GRM HEMOSTAT ABS FDA Start: 07-25-2019 Breast reduction GRAEC 3GRM HEMOSTAT ABS FDA Start: 07-25-2019 Breast [...] reduction GRACE 3GRM HEMOSTAT ABS FDA Start: 10-01-2019 Breast reduction GRACE 3GRM HEMOSTAT ABS FDA [...] Patella, Triathl on, Asymmetric, Size A32 - [id number] Start: 04-03-2024 Component, Ps Femoral, P3, Beaded W/Pa, Left - [id number] Start: 04-03-2024 Baseplate, Triathlon Tritanium, Size 3, 44mm - [id number] Start: 04-03-2024 Size 3, 11mm Triathlon Ps Tibial Insert - [id number] Start: 04-03-2024 Goals Date Patient Goal Desired Activity /State Mental Status Date Assessment Result Facility 02-24-2023 Cognitive function Level Of Cons ciousness Awake;Appropriate;Follows Commands;Drowsy [facility] Work Phone: 02-24-2023 Cognitive function Voice/Name [facility] Work Phone: Clinical Notes 02-24-2023 to 08-01-2025 Note Date & Type Note Facility 08-01-[address] [facility] 05-02-[address] [facility] 04-26-2025 Progress note Note Date/Time April 26, 2025 1:29pm [facility] [address] [place] [address] OFFICE VISIT Date of Service: 04/26/25 MR#: [id number] Acct: [id number] Name: LEEANN CROCKETT Rep #: [id number] : 1960 Provider: GINO Johnson Age/Sex: 65/F [place] [facility] Status: Signed HPI HPI History of [...] Monitor Intake Visit Reasons: 1 Y FU Continuous Improvement Specialist Required: No Accompanied by: Self Is patient [...] (Reviewed 04/26/25 @ 13:09 by Karlie Johnson OPERATIONS SUPERVISOR 2ND SHIFT, OPERATIONS SUPERVISOR 2ND SHIFT-C) High cholesterol Tear of medial meniscus of [...] (Reviewed 04/26/25 @ 13:09 by Karlie Johnson OPERATIONS SUPERVISOR 2ND SHIFT, OPERATIONS SUPERVISOR 2ND SHIFT-C) History of knee surgery H/O arthroscopy of left knee History of cardiac catheterization Hx of colonoscopy History of bilateral breast reduction surgery History of left heart catheterization (05/25/18) History of lumpectomy of left breast History of partial hysterectomy Hx of tonsillectomy H/O tubal ligation Family History (Reviewed 04/26/25 @ 13:09 by Karlie Johnson OPERATIONS SUPERVISOR 2ND SHIFT, OPERATIONS SUPERVISOR 2ND SHIFT-C) Father CVA (cerebral vascular accident) Diabetes Hypertension High cholesterol Mother Breast cancer Cancer Diabetes Hypertension Grandmother CAD (coronary artery disease) Myocardial infarction, Onset Age: 68 Brother Diabetes Aunt Cancer Social History (Reviewed 04/26/25 @ 13:09 by Karlie Johnson OPERATIONS SUPERVISOR 2ND SHIFT, OPERATIONS SUPERVISOR 2ND SHIFT-C) Smoking Status: Former smoker quit date: 06/25/96 [...] with activity, SOB at rest and SOB orthopnea\\SOB lying down GI GI: Negative nausea or [...] Leonarda CO: 5.43 Leonarda CI: 3.03 PW: 10/10 7 PA: 22/8 14 RV: 27/-1 5 RA: 01/29 5 [...] updated, as necessary. Follow Up: 3 Months (OPERATIONS SUPERVISOR 2ND SHIFT/PA) Coding Level of Care Code Off vis,est,level [...] No 04/26/25 1329 <Electronically signed by Karlie Johnson NP OPERATIONS SUPERVISOR 2ND SHIFT-C> Date _ Karlie oJhnson NP OPERATIONS SUPERVISOR 2ND SHIFT-C Cosigner Signature: Date (if applicable) CC: Dr. Yennifer Johnson MD ~ [facility] Work Phone: 1(526) 990-919007-03-2025 Evaluation note* Diagnosis Onset Date Resolution Status Admit Date Dyspnea on exertion acute April 26, 2025 12:56pm Paroxysmal atrial fibrillation acute April 26, 2025 12:56pm Mixed hyperlipidemia chronic April 26, 2025 12:56pm Palpitations chronic April 26 12:56pm [facility] Work Phone: 1(748) 664-538307-03-2025 Evaluation note* Diagnosis Onset Date Resolution Status Admit Date Dyspnea on exertion acute April 26, 2025 12:56pm Paroxysmal atrial fibrillation acute April 26, 2025 12:56pm Mixed hyperlipidemia chronic April 26, 2025 12:56pm Palpitations chronic April 26 12:56pm Thrombocytosis chronic May 02, 2025 8:49am [facility] Work Phone: 1(757) 424-355607-03-2025 Evaluation note* Diagnosis Onset Date Resolution Status Admit Date Dyspnea on exertion acute April 26, 2025 12:56pm Mixed hyperlipidemia chronic April 26, 2025 12:56pm Palpitations chronic April 26 12:56pm Paroxysmal atrial fibrillation chron ic April 26, 2025 12:56pm Thrombocytosis chronic May 02, 2025 8:49am Preventative health care acute May 28, 2025 7:40am Anxiety and depression chronic Au kelly 2024 7:40am Essential (primary) hypertension chr onic May 28, 2025 7:40am Insomnia chronic May 28 7:40am Paroxysmal atrial fibrillation chron ic May 28, 2025 7:40am Skin mole chronic May 28 7:40am Thrombocytosis chronic May 7:40am [facility] Work Phone: 1([phone]) 905-999007-03-2025 Evaluation note* Diagnosis Onset Date Resolution Status Admit Date Dyspnea on exertion acute April 26, 2025 12:56pm Mixed hyperlipidemia chronic April 26, 2025 12:56pm Palpitations chronic April 26 12:56pm Paroxysmal atrial fibrillation chron ic April 26, 2025 12:56pm Thrombocytosis chronic May 02, 2025 8:49am Preventative health care acute May 28, 2025 7:40am Anxiety and depression chronic Au kelly 2024 7:40am Essential (primary) hypertension chronic May 28, 2025 7:40am Insomnia chronic May 28 7:40am Paroxysmal atrial fibrillation chron ic May 28, 2025 7:40am Skin mole chronic May 28 7:40am Thrombocytosis chronic May 7:40am Anxiety and depression chronic Oc tob2024 7:35am Insomnia chronic July 27 7:35am Localized swelling of finger of right hand chronic July 27 7:35am Thrombocytosis chronic July 7:35am Dyspnea on exertion acute Octob er 2024 8:45am Dizziness chronic July 27, 8:45am Mixed hyperlipidemia chronic Octo damian 2024 8:45am Palpitations chronic July 27, 2025 8:45am Paroxysmal atrial fibrillation chron ic July 27, 2025 8:45am [facility] Work Phone: 1(676) 302-684707-03-2025 Evaluation note* Diagnosis Onset Date Resolution Status Admit Date Dyspnea on exertion acute April 26, 2025 12:56pm Mixed hyperlipidemia chronic April 26, 2025 12:56pm Palpitations chronic April 26 12:56pm Paroxysmal atrial fibrillation chron ic April 26, 2025 12:56pm Thrombocytosis chronic May 02, 2025 8:49am Preventative health care acute May 28, 2025 7:40am Anxiety and depression chronic Au 2024 7:40am Essential (primary) hypertension chronic May 28, 2025 7:40am Insomnia chronic May 28 7:40am Paroxysmal atrial fibrillation chron ic May 28, 2025 7:40am Skin mole chronic May 28 7:40am Thrombocytosis chronic May 7:40am Anxiety and depression chronic Oc 2024 7:35am Insomnia chronic July 27 7:35am Localized swelling of finger of right hand chronic July 27 7:35am Thrombocytosis chronic July 7:35am Chest tightness acute July 272024 8:45am Dizziness chronic July 27 8:45am Mixed hyperlipidemia chronic Oct2024 8:45am Palpitations chronic July 27, 2025 8:45am Paroxysmal atrial fibrillation chron ic July 27, 2025 8:45am Thrombocytosis chronic July 10:00am [facility] Work Phone: 1(900) 563-605407-03-2025 Progress [facility] [address] [place] [address]. [address] [place] [address] OFFICE VISIT Date of Service: 04/26/25 MR#: [id number] Acct: [id number] Name: LEEANN CROCKETT Rep #: [id number] : 1960 Provider: GINO Johnson Age/Sex: 65/F [place] [facility] Status: Signed HPI HPI History of [...] Monitor Intake Visit Reasons: 1 Y FU Continuous Improvement Specialist Required: No Accompanied by: Self Is patient [...] (Reviewed 04/26/25 @ 13:09 by Karlie Johnson OPERATIONS SUPERVISOR 2ND SHIFT, OPERATIONS SUPERVISOR 2ND SHIFT-C) History of knee surgery H/O arthroscopy of left knee History of cardiac catheterization Hx of colonoscopy History of bilateral breast reduction surgery History of left heart catheterization (05/25/18) History of lumpectomy of left breast History of partial hysterectomy Hx of tonsillectomy H/O tubal ligation Family History (Reviewed 04/26/25 @ 13:09 by Karlie Johnson OPERATIONS SUPERVISOR 2ND SHIFT, OPERATIONS SUPERVISOR 2ND SHIFT-C) Father CVA (cerebral vascular accident) Diabetes Hypertension High cholesterol Mother Breast cancer Cancer Diabetes Hypertension Grandmother CAD (coronary artery disease) Myocardial infarction, Onset Age: 68 Brother Diabetes Aunt Cancer Social History (Reviewed 04/26/25 @ 13:09 by Karlie Johnson OPERATIONS SUPERVISOR 2ND SHIFT, OPERATIONS SUPERVISOR 2ND SHIFT-C) Smoking Status: Former smoker quit date: 06/25/96 [...] with activity, SOB at rest and SOB orthopnea\\SOB lying down GI GI: Negative nausea or [...] updated, as necessary. Follow Up: 3 Months (OPERATIONS SUPERVISOR 2ND SHIFT/PA) Coding Level of Care Code Off vis,est,level 4 Diagnoses Paroxysmal atrial fibrillation I48.0 Mixed hyperlipidemia E78.2 Palpitations R00.2 Dyspnea on exertion R06.09 Coding Level of Care Code Off vis,est,level 4 Diagnoses Paroxysmal atrial fibrillation I48.0 Mixed hyperlipidemia E78.2 Palpitations R00.2 Dyspnea on exertion R06.09 Clinical Quality Measures Falls Risk Screening/Assistive Devices Have you fallen in the past year?: No 04/26/25 1329 OPERATIONS SUPERVISOR 2ND SHIFT OPERATIONS SUPERVISOR 2ND SHIFT-C> Date _ Karlie Johnson OPERATIONS SUPERVISOR 2ND SHIFT OPERATIONS SUPERVISOR 2ND SHIFT-C Cosigner Signature: Date (if applicable) CC: Dr. Yennifer Johnson MD ~ [facility]06-11-2024 History of Present illness Narrative* Elizabeth Duncan, PT - 04/04/2024 3:05 PM EDT Physical Therapy Physical Therapy Treatment Patient Name: Leeann Ordonez" Today's Date: 04/04/2024 Time Calculation Start Time: [...] VCs for safe sequencing provided. Outcome Measures: [facility] Basic Mobility Turning from your back to [...] with completion of functional mobility. * Keshawn Stevenson APRN-SENIOR SOFTWARE QUALITY ENGINEER - 04/04/2024 11:59 AM EDT Celeste Crockett [...] am INDICATION: Signs/Symptoms:leukocytosis. COMPARISON: None. ACCESSION NUMBER(S): [id number] ORDERING CLINICIAN: KESHAWN STEVENSON TECHNIQUE: Single AP view chest FINDINGS: Cardiac silhouette is within normal limits. No infiltrate or effusion identified. Visualized osseous structures demonstrate glenohumeral joint osteoarthritis bilaterally. Impression: 1. No acute process MACRO: None Signed by: Rafael Shepard 04/04/2024 9:46 AM Dictation workstation: [id number] Physical Exam Vitals reviewed. Constitutional: Appearance: Normal [...] am INDICATION: Signs/Symptoms:leukocytosis. COMPARISON: None. ACCESSION NUMBER(S): [id number] ORDERING CLINICIAN: KESHAWN STEVENSON TECHNIQUE: Single AP view chest FINDINGS: Cardiac silhouette is within normal limits. No infiltrate or effusion identified. Visualized osseous structures demonstrate glenohumeral joint osteoarthritis bilaterally. 1. No acute process MACRO: None Signed by: Rafael Shepard 04/04/2024 9:46 AM Dictation workstation:[id number] XR knee left 1-2 views Result Date: 04/03/2024 Interpreted By: Herman Marquez, STUDY: XR KNEE LEFT 1-2 VIEWS; 04/03/2024 10:27 am INDICATION: Signs/Symptoms:Post-op knee. COMPARISON: None. ACCESSION NUMBER(S): [id number] ORDERING CLINICIAN: TIN WEST FINDINGS: Components of left knee arthroplasty are in anatomic alignment. Postoperative soft tissue gas. New left knee arthroplasty in anatomic alignment. MACRO: None Signed by: Herman Marquez 04/03/2024 11:33 AM Dictation workstation: [id number] Assessment/Plan Principal Problem: Arthritis of left knee [...] MD - 04/04/2024 11:55 AM EDT Leeann Ordonez" is a 64 y.o. female on day [...] Yellow, Dark-Yellow Appearance, Urine Clear Clear Specific [place], Urine 1.011 1.005 - 1.035 pH, Urine [...] Occupational Therapy OT Treatment Patient Name: Leeann Ordonez" Today's Date: 04/04/2024 Time Calculation Start Time: 809 Stop Time: 848 Time Calculation (min): 39 min Assessment: OT Assessment: Tolerated session well, demonstrating improved functional tolerance with good carryover of TKR precautions throughout tx. Pt would benefit from continued skilled OT services to improvestrength, balance, and functional tolerance to increase independence with IADL/ADL tasks upon homegoing End of Session Communication: Bedside nurse End of Session Patient Position: Up in chair, Alarm off, caregiver present (manufacturing engineering technician entering) OT Assessment Results: Decreased ADL [...] gown LE Dressing LE Dressing Adaptive Equipment: Ingot Caster, Sock aide Sock Level of Assistance: Setup, [...] fair balance during grooming tasks sinkside Outcome Measures:[facility] Daily Activity Putting on and taking off [...] Therapy Physical Therapy Treatment Patient Name: Leeann Crockett "Celeste" Today's Date: 04/04/2024 Time Calculation Start Time: [...] 1: VCs for safe sequencing Outcome Measures: [facility] Basic Mobility Turning from your back to [...] RADHA Quan - 04/04/2024 8:45 AM EDT [facility] sent referral information to pts choice [facility] via careport on 04/03, have not received any response. [facility] faxed information to them at [phone] this morning, contact information included on facesheet with request for response. Update: [facility] confirmed they can accept the pt. Hospitalist SENIOR SOFTWARE QUALITY ENGINEER able to input corrected homecare order, this along with other dc information was sent to [facility]. 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 [facility] received message from hospitalist OPERATIONS SUPERVISOR 2ND SHIFT with information on which homecare agency pt would like at [place]. [facility] called pts room and spoke [...] PCP is Dr Johnson, prescriptions filled through [facility] [address] [facility], [facility]. Pt confirmed she would like [facility], referral sent via careRapidMiner, await response. 04/03/24 1401 Discharge Planning Living Arrangements Spouse/significant other;Family members Support Systems Spouse/significant other;Family members Type of Residence Private residence Number of Stairs to Enter Residence 2 Number of Stairs Within Residence 0 Who is requesting discharge planning? Provider Home or Post Acute Services In home services Type of Home Care Services Home PT Patient expects to be discharged to: Home with [facility] Financial Resource Strain How hard [...] a 64 y.o. 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 documented in this [facility] Work Phone: 1(542) 306-764906-11-2024 Hospital course Narrative* Tin West MD - [...] appointments. Tin West MD [facility] Phone: 1([phone]) 221-888906-11-2024 Nurse Note* Pao Foley RN - 04/04/2024 7:19 AM EDT Assumed care of patient. Patient is resting in bed, and talking on her phone. She was made aware that therapy would be in to work with her this morning. She will be up to a chair. Call light is in place will continue to monitor. [facility]06-11-[facility] Nurse Note* Pao Foley RN - [...] iv fluids per order [facility] Work Phone: 1([phone]) 211-503906-11-2024 Plan of care note* Care Plan - [...] ability to cope with hospitalization/illness Outcome: Progressing [facility] Work Phone: 1([phone]) 388-458006-11-2024 Miscellaneous Notes* Care Plan - Alyssa Graham [...] detailed initial consult and [facility] by Larisa Stevenson. I talked in detail with SENIOR SOFTWARE QUALITY ENGINEER regarding assessment and plan. I agree with [...] dermatology disease. Atrial fibrillation Patient see regular home and school visitor. Continue with flecainide, Cardizem ,Eliquis. Left knee osteoarthritis Status post left total knee arthroplasty Continue with pain medication Physical therapy to evaluate her Hypertension Fairly controlled Patient is on Cardizem Hyperlipidemia Patient lives in [place]. Discussed with care coordination on the case [...] 10:00 AM EDT Patient received to Pacu Carlton #3 from OR. Anesthesia at bedside. Report received. Initial assessmentcomplete. VSS on Commercial Attache. Patient resting appears comfortable. No signs or symptoms of painnoted. * Op Note - Tin West MD - 04/03/2024 8:24 AM EDT Arthroplasty Resurfacing Total Knee 98157 - [place] ARTHRP KNE CONDYLE&PLATU MEDIAL&LAT COMPARTMENTS Operative Note Date: 04/03/2024 OR Location: [facility] Name: Leeann Ordonez", : 1960, Age: 64 y.o., , Sex: female PRE Diagnosis Left knee osteoarthritis POST Diagnosis Same Procedures Left total knee arthroplasty subvastus approach Surgeons * Tin West - Primary Resident/Fellow/Other Admitting Representative: nitza Snowden joe Procedure Summary Implants: Styker Cemented Triathlon Total Knee: Femur size 3 posterior stabilized, size 3 primary tibial baseplate, size A32 N2Vac Patella, size 3x11 posterior stabilized N2Vac tibial bearing insert Anesthesia: LMA with adductor canal block ASA: III Anesthesia Staff: Anesthesiologist: Israel Corea MD TOWER SUPERVISOR: Nikki Alex APRN-TOWER SUPERVISOR Estimated Blood Loss: 50 mL Specimen: No specimens collected Staff: Power Crane Operator: Katy Rodgers RN Scrub Person: Tesfaye Wright; Cy Sorto; Nikki Gr Drains and/or Catheters: 2 Hemovac Tourniquet Times: Total Tourniquet Time Documented: Thigh (Left) - 49 minutes Total: Thigh (Left) - 49 minutes Findings: Patient had severe degenerative changes with medial joint space [id number] apposition and peripheral osteophyte formation. Absent ACL. Stable implantation of the above components. Neutralalignment stable in extension to an axial loading exam. Patella tracked normally through a subvastus approach. Indications: Leeann Ordonez" is an 64 y.o. female who is [...] tracking and varus valgus stability throughout. The [place] patella tracked normally. I everted the patella [...] WELL. PHOTO TO CHART documented in this [facility] Work Phone: 1([phone]) 736-947006-10-2024 Nurse Note* Alyssa Graham RN - 04/03/2024 7:30 PM EDT Assumed care of pt this evening, sitting up in bed, at bedside, denies pain, dressing to left knee c/d/I, hemovac with small amt bloody drainage noted, iv fluids per order [facility]-10[facility] Note* Treatment Plan - Chante Ma MD - 04/03/2024 3:33 PM EDT Patient was seen and examined by me personally. He is see detailed initial consult and physical exam in [facility] by Larisa Stevenson. I talked in detail with SENIOR SOFTWARE QUALITY ENGINEER regarding assessment and plan. I agree with [...] dermatology disease. Atrial fibrillation Patient see regular home and school visitor. Continue with flecainide, Cardizem ,Eliquis. Left knee osteoarthritis Status post left total knee arthroplasty Continue with pain medication Physical therapy to evaluate her Hypertension Fairly controlled Patient is on Cardizem Hyperlipidemia Patient lives in [place]. Discussed with care coordination on the case plan to discharge with home health care. Discussed with her family present in the room. T [facility] Work Phone: [phone]) [phone] Plan of care note* Care Plan - Joanne Shetty RN - 04/03/2024 2:04 PM EDT The patient's goals for the shift include No pain The clinical goals for the shift include No pain Over the shift, the patient did not make progress toward the following goals. [facility] Work Phone: 1([phone]) 932-762606-10-2024 Consult note* SANDOVAL Marcos - 04/03/2024 1:51 [...] and aortic valve insufficiency who presented to [facility] for an anticipated left total knee replacement. [...] or vomiting. No abdominal discomfort. Admitted to [facility]. Medicine consulted for management of chronic medical [...] General: Well developed. NAD. HEENT: PERRL. EOMI. [place] conjunctiva. Trachea midline. Cardiovascular: S1, S2. RRR. No edema. Respiratory: Breath sounds clear bilaterally, posterior anterior chest. No cyanosis. No hypoxia. GI: Abdomen soft, nontender. Bowel sounds present in all quadrants . : No bladder distention. MS: ELLIS. Right surgical knee. Neuro: Alert, oriented. No [...] INDICATION: Signs/Symptoms:Post-op knee. COMPARISON: None. ACCESSION NUMBER(S): [id number] ORDERING CLINICIAN: TIN WEST FINDINGS: Components of left knee arthroplasty are in anatomic alignment. Postoperative soft tissue gas. New left knee arthroplasty in anatomic alignment. MACRO: None Signed by: Herman Marquez 04/03/2024 11:33 AM Dictation workstation: [id number] Assessment/Plan Atrial fibrillation Eliquis resumed per orthopedic [...] consult. Will continue to follow. SANDOVAL Marcos [facility] Work Phone: [phone]) 982-267206-10-2024 Consult note* SANDOVAL Marcos - 04/03/2024 1:51 [...] and aortic valve insufficiency who presented to [facility] for an anticipated left total knee replacement. [...] or vomiting. No abdominal discomfort. Admitted to [facility]. Medicine consulted for management of chronic medical [...] General: Well developed. NAD. HEENT: PERRL. EOMI. [place] conjunctiva. Trachea midline. Cardiovascular: S1, S2. RRR. No edema. Respiratory: Breath sounds clear bilaterally, posterior anterior chest. No cyanosis. No hypoxia. GI: Abdomen soft, nontender. Bowel sounds present in all quadrants . : No bladder distention. MS: ELLIS. Right surgical knee. Neuro: Alert, oriented. No [...] INDICATION: Signs/Symptoms:Post-op knee. COMPARISON: None. ACCESSION NUMBER(S): [id number] ORDERING CLINICIAN: TIN WEST FINDINGS: Components of left knee arthroplasty are in anatomic alignment. Postoperative soft tissue gas. New left knee arthroplasty in anatomic alignment. MACRO: None Signed by: Herman Marquez 04/03/2024 11:33 AM Dictation workstation: [id number] Assessment/Plan Atrial fibrillation Eliquis resumed per orthopedic [...] to follow. SANDOVAL Marcos [facility] Work Phone: [phone] 483-881906-10-2024 Note* Perioperative Nursing Note - Odilia Desai RN - 04/03/2024 11:50 AM EDT Transport at bedside. Patient transferred to Division Status Stable. [facility] Note* Perioperative Nursing Note - Odilia Desai RN - 04/03/2024 10:00 AM EDT Patient received to Pacu Carlton #3 from OR. Anesthesia at bedside. Report received. Initial assessmentcomplete. VSS on Commercial Attache. Patient resting appears comfortable. No signs or symptoms of painnoted. [facility] Work Phone: [phone]) 478-567706-10-2024 Hospital Discharge instructions* Discharge Instructions* Tin West MD - 04/03/2024 9:41 AM EDT Dressing: remove after 1 week. Call if any drainage is coming out of the bandage. Weight bearing: weight bear as tolerated Showering: may shower Bathing: no tub bathing or pools Driving: no driving Call with any concerns. documented in this [facility] Work Phone: [phone]) 384-609906-10-2024 Note* Op Note - Tin Wets MD - 04/03/2024 8:24 AM EDT Arthroplasty Resurfacing Total Knee 89347 - [place] ARTHRP KNE CONDYLE&PLATU MEDIAL&LAT COMPARTMENTS Operative Note Date: 04/03/2024 OR Location: [facility] Name: Leeann Crockett "Celeste", : 1960, Age: 64 y.o., , Sex: female PRE Diagnosis Left knee osteoarthritis POST Diagnosis Same Procedures Left total knee arthroplasty subvastus approach Surgeons * Tin West - Primary Resident/Fellow/Other Admitting Representative: nitza Snowden joe Procedure Summary Implants: Styker Cemented Triathlon Total Knee: Femur size 3 posterior stabilized, size 3 primary tibial baseplate, size A32 N2Vac Patella, size 3x11 posterior stabilized N2Vac tibial bearing insert Anesthesia: LMA with adductor canal block ASA: III Anesthesia Staff: Anesthesiologist: Israel Corea MD TOWER SUPERVISOR: Nikki Alex APRN-TOWER SUPERVISOR Estimated Blood Loss: 50 mL Specimen: No specimens collected Staff: Power Crane Operator: Katy Rodgers RN Scrub Person: Tesfaye Wright; Cy Sorto; Nikki Gr Drains and/or Catheters: 2 Hemovac Tourniquet Times: Total Tourniquet Time Documented: Thigh (Left) - 49 minutes Total: Thigh (Left) - 49 minutes Findings: Patient had severe degenerative changes with medial joint space oohk-kr-dorq apposition and peripheral osteophyte formation. Absent ACL. Stable implantation of the above components. Neutralalignment stable in extension to an axial loading exam. Patella tracked normally through a subvastus approach. Indications: Leeann Ordonez" is an 64 y.o. female who is [...] tracking and varus valgus stability throughout. The [place] patella tracked normally. I everted the patella [...] Attestation: I performed the procedure. Tin West [facility] Work Phone: 1([phone]) 319-182806-10-2024 Note* Pre-Procedure Note - Cynthia Lopez RN - 04/03/2024 7:57 AM EDT PREOP NERVE BLOCK COMPLETED, PATIENT TOLERATED WELL. PHOTO TO CHART [facility]06-10-2024 Attending History and physical note * Tin West MD - 04/03/2024 7:34 AM EDT H&P reviewed. The patient was examined and there are no changes to the H&P. Source Note - Nikki Zaragoza, TREE PRUNER-SENIOR SOFTWARE QUALITY ENGINEER - 03/21/2024 1:45 PM EDT CPM/PAT Evaluation Name: Leeann Crockett (Leeann Crockett "Celeste") /Age: 503/03/1960/64 y.o. In-Person Chief Complaint: Left [...] (98.6 F) (Temporal) Ht 1.575 m (5' 2") Wt 71.3 kg (157 lb 1.6 oz) [...] 03/21/2024 under heading Epic notes. SANDOVAL Mcmullen [facility] Work Phone: 1([phone]) 304-159006-10-2024 History and physical note* Tin West MD - 04/03/2024 7:34 AM EDT H&P reviewed. The patient was examined and there are no changes to the H&P. Source Note - SANDOVAL Mcmullen - 03/21/2024 1:45 PM EDT CPM/PAT Evaluation Name: Leeann Crockett (Leeann Crockett "Celeste") /Age: 503/03/1960/64 y.o. In-Person Chief Complaint: Left [...] (98.6 F) (Temporal) Ht 1.575 m (5' 2") Wt 71.3 kg (157 lb 1.6 oz) [...] notes. SANDOVAL Mcmullen documented in this [facility] Work Phone: [phone]) 414-549607-12-2023 Discharge summary Author Susan Zambrano [facility] May 05, 2023 5:28pm Note Date/Time May 05, 2023 5:28 pm [facility] Physical Therapy [facility] [address] [place] [address] [address] [place] [address] / REHABILITATION SERVICES DISCHARGE SUMMARY MR#: [id number] Acct: [id number] Name: LEEANN CROCKETT Rep #: [id number] : 1960 63 From: Susan Alvarez Referring Dr.: Dr. Nate Rubio MD Status: [...] please feel free to call me at [phone]. Thank you for the referral of thispatient. Sincerely, JOYCE Siddiqui Balance/Gait/Functional tests Balance/Special Test Scores Lower Extremity Functional Score: 55 <Electronically signed by Susan Zambrano MPT> 05/05/23 9082 CC: Dr. Yennifer Johnson MD; Dr. Nate Rubio MD ~ Signed [facility] Work Phone: 1([phone]) 169-756805-03-[address] Rubio [facility] February 24, 2023 8:18am Note Date/Time February 24, 2023 8:18am [facility] Medical Records Department [address] [place] [address] Instructions for Home/Discharge Instructions 02/24/23 0817 MR#: [id number] Acct: [id number] Name: ESTEBANJERICHOLEEANN LEE Rep #:[id number] : 1960 62 From: Nate Rubio MD PCP: Dr. Yennifer Johnson MD Status:R [place] [facility] [place] Inst[place] Diet Discharge Diet: No restrictions [...] CC: Dr. Yennifer Johnson MD ~ Signed [facility] Work Phone: 1([phone]) 436-542605-03-2023 History and physical note Author Dr. Rubio [facility] February 24, 2023 7:11am Note Date/Time February 24, 2023 7:11am [facility] Health System Medical Records Department [address] [place] [address] History & Physical Exam 02/24/23 0709 MR#: [id number] Acct: [id number] Name: LEEANN CROCKETT Rep #:[id number] : 1960 62 From: Nate Rubio MD PCP: Dr. Yennifer Johnson MD Status:R [facility] Location: [place] [address] HPI - General HPI Narrative LEEANN CROCKETT, is a 62 F who presents for left knee arthroscopy, MM and debridement. No changes to h and p. OK to proceed, left knee marked. RAB and post op WBAT with crutches discussed. Patient allergic to many narcotics, so getting spinal and block, will use tylenol and NSAIDs post op. No further questions. MR#: [id number] Acct: [id number] Name:? LEEANN CROCKETT Rep #: [id number] : 1960 ? ? Provider: Dr. Nate Rubio MD Age/Sex:? 62/F ? ? [place] [facility] Status: Signed Intake Vital Signs ? 07/27/2213:39 [...] Grind: Yes KNEE: normal gait Supplemental Info [facility] Imaging Services [address] [place] [address] Lower Ext Joint Only (Routine) MR#:? [id number] Acct: [id number] Name:? LEEANN CROCKETT Rep #: [id number] :?? 1960 F 62 ? From:? ? Maximilian Garnett MD PCP: Dr. Yennifer Johnson MD ? Status: REG CLI Study: Lower Ext Joint Only (Routine) ? Date of Exam: 02/02/23 Exam# [id number] ? Ordering Dr:? Nate Rubio MD STUDY:? [...] Normal proximal tibiofibular articulation.? Normal lateral collateral ("fibular") ligament.? Normal popliteus tendon.? Normal biceps femoris [...] 23:49 EDT Reading Location ID and State: [address] [place] [address] , Service support? , ? Agree with [...] proceed.? We will have to get her home and school visitor Dr. Lopez clearance / opinion on when [...] signed the informed consent documentation.? [facility] Medical History (Updated 02/17/23 @ 13:56 by [...] Johnson MD; Dr. Nate Rubio MD~ Signed [facility] Work Phone: 1([phone]) 453-211105-03-2023 Procedure [facility] Evaluation noteNo assessment information availableChildren'S Hospital For Rehabilitation Work Phone: Evaluation note* Diagnosis Onset Date Resolution Status Anxiety and depression acute Change in bowel habits acute Fecal incontinence acute GERD (gastroesophageal reflux disease) acute [facility] Work Phone: Evaluation note* Diagnosis Onset Date Resolution Status Anxiety and depression acute Change in bowel habits acute Fecal incontinence acute GERD (gastroesophageal reflux disease) acute Chest pressure acute Fatigue acute Paroxysmal atrial fibrillation acute Essential (primary) hypertension chronic Mixed hyperlipidemia chronic Nonrheumatic aortic valve insufficiency chronic Palpitations chronic [facility] Work Phone: Evaluation note* Diagnosis Onset Date [...] left knee pain non eactive Fall noneactive [facility] Work Phone: Evaluation note* Diagnosis Onset Date [...] of popliteal space [Poe], left knee acute [facility] Work Phone: Evaluation note* Diagnosis Onset Date Resolution Status Palpable mass of soft tissue of knee noneactive Posterior left knee pain non eactive Fall noneactive Osteoarthritis of left knee acute Synovial cyst of popliteal space [Poe], left knee acute [facility] Work Phone: Evaluation note* Diagnosis Onset Date Resolution Status Osteoarthritis of left knee acute Osteoarthritis of left knee acute Synovial cyst of popliteal space [Poe], left knee acute Tear of medial meniscus of left knee acute [facility] Work Phone: Evaluation note* Diagnosis Onset Date Resolution Status Osteoarthritis of left knee acute Osteoarthritis of left knee acute Synovial cyst of popliteal space [Poe], left knee acute Tear of medial meniscus of left knee acute Osteoarthritis of left knee acute Tear of medial meniscus of left knee acute [facility] Work Phone: Evaluation note* Diagnosis Onset Date [...] of medial meniscus of left knee acute [facility] Work Phone: Evaluation note* Diagnosis Onset Date [...] of medial meniscus of left knee acute [facility] Work Phone: Evaluation note* Diagnosis Onset Date Resolution Status Tear of medial meniscus of left knee acute [facility] Work Phone: Evaluation note* Diagnosis Onset Date Resolution Status Paroxysmal atrial fibrillation acute Essential (primary) hypertension chronic Mixed hyperlipidemia chronic Nonrheumatic aortic valve insufficiency chronic Preventative health care acu te [facility] Work Phone: Evaluation note* Diagnosis Onset Date Resolution Status Preventative health care acu te Fatigue acute Paroxysmal atrial fibrillation acute Dizziness chronic Essential (primary) hypertension chronic Mixed hyperlipidemia chronic Nonrheumatic aortic valve insufficiency chronic Palpitations chronic [facility] Work Phone: Evaluation note* Diagnosis Arthritis of left knee- Primary Arthritis of left knee Urinary tract infection without hematuria, site unspecified HTN (hypertension) Unspecified essential hypertension Hyperlipidemia Other and unspecified hyperlipidemia Valvular heart disease Endocarditis, valve unspecified, unspecified cause Atrial fibrillation (Multi) Atrial fibrillation Asthma ([facility]) Unspecified asthma Anxiety Anxiety state, unspecified documented in this encounter [facility] Work Phone: [facility] Phone[facility] Work Phone: Hospital Discharge instructionsAmbulatory Orders* Dermatology Location: None Selected [facility] [facility] Work Phone: Hospital Discharge instructionsAmbulatory Orders* Plastic surgery Location: None Selected [facility] Work Phone: Hospital Discharge instructionsAmbulatory Orders* Ears, Nose and Throat Location: None Selected [facility] Work Phone: Progress note Author Cy Peterson [facility] Services Note Date/Time May 02, 2025 9:37a m [facility] [address] [address] OFFICE VISIT Date of Service: 05/02/25 0900 MR#: [id number] Acct: [id number] Name: LEEANN CROCKETT Rep #: [id number] : 1960 From: Cy Peterson MD Age/Sex: 65/F [place] [facility] [place]: Signed HPI Subjective Date of Service 05/02/25 Chief Complaint Referred for thrombocytosis. History of Present Illness 65y.o.woman was found to slight elevation of PLT and referred for evaluation. She denies bleeding disorders, anemia. [facility] Medical History Thrombocytosis High cholesterol Tear of [...] Cy Silva> Date _ Cy Peterson MD Cosigner Signature: Date (if applicable) CC: Dr. Yennifer Johnson MD ~ [facility] Work Phone: Progress note Author Cy Peterson [facility] Note Date/Time August 01, 2025 11 :19am [facility] [address] [address] OFFICE VISIT Date of Service: 08/01/25 1048 MR#: [id number] Acct: [id number] Name: LEEANN CROCKETT Rep #: [id number] : 1960 From: Cy Peterson MD Age/Sex: 65/F [place] [facility] [place]: Signed HPI Subjective Date of Service 08/01/25 Chief Complaint F/u for thrombocytopenia. History of Present Illness 65y.o.woman was found to slight elevation of PLT and referred for evaluation. She denies bleeding disorders, anemia. She is on observation, comes for follow up. Feels well. [facility] Medical History Localized swelling of finger of right hand Other bursal cyst, right hand Cyst of finger Insomnia Skin mole Thrombocytosis High cholesterol Tear of medial meniscus [...] history: DOES USE ASPIRIN DOES USE IBUPROFEN Intake Vital Signs 05/02/25 09:01 07/27/25 08:48 08/01/25 10:49 Height 5 ft 2 in 5 ft 2 in 5 ft 2 in Weight: 73.482 kg 72.83 kg BMI 29.6 29.3 BP 125/80 H 121/82 H Blood Pressure Location Lt brachial Lt brachial Position Sitting Sitting Respiration 18 16 Pulse 76 69 Pulse Source Monitor Monitor Temp 98.4 F Temperature Source Temporal Artery Pulse Oximetry (%) 98 99 Oxygen Delivery Method room air room air Intake Is patient in pain?: No Allergies dog dander Allergy (Severe, Verified 08/01/25 10:53) Swelling Opioids - Morphine Analogues Allergy (Severe, Verified 08/01/25 10:53) Anaphylaxis perfume Allergy (Severe, Verified 08/01/25 10:53) swelling venom-honey bee Allergy (Severe, Verified 08/01/25 10:53) Anaphylaxis ketorolac (From Toradol) Allergy (Intermediate, Verified 08/01/25 10:53) Nausea bee pollen Allergy (Verified 08/01/25 10:53) Anaphylaxis codeine Allergy (Verified 08/01/25 10:53) Anaphylaxis niacin Allergy (Verified 08/01/25 10:53) Angioedema oxycodone HCl (From Percocet) Allergy (Verified 08/01/25 10:53) Anaphylaxis propoxyphene napsylate (From Darvocet-N) Allergy (Verified 08/01/25 10:53) Angioedema simvastatin (From Zocor) Allergy (Verified 08/01/25 10:53) Angioedema adhesive Adverse Reaction (Severe, Verified 08/01/25 10:53) Other hydromorphone (From Dilaudid) Adverse Reaction (Mild, Verified 08/01/25 10:53) Other Medications ?Medication ?Instructions ?Recorded ?Confirmed ?Type disability placard #1 ea 11/13/20 08/01/25 Rx multivitamin (Daily Multi-Vitamin 1 tab PO DAILY 12/1608/01/25 History tablet) apixaban 5 mg tablet (Eliquis) 5 mg PO BID #180 tabs 0 11/06/24 08/01/25 Rx diltiazem HCl 240 mg 240 mg PO DAILY #90 caps 08/01/25 Rx capsule,extended release 24 hr ezetimibe 10 mg tablet 10 mg PO DAILY #90 tabs 10/2508/01/25 Rx flecainide 100 mg tablet 100 mg PO Q12H #180 tabs 03/1808/01/25 Rx gemfibrozil 600 mg tablet See Rx Instructions .Route 0 04/26/25 08/01/25 Rx .COMPLEX #180 tabs losartan 50 mg-hydrochlorothiazide 1 tab PO QDAY #90 T ABLETS 04/26/25 08/01/25 Rx 12.5 mg tablet eszopiclone 2 mg tablet (Lunesta) 1 mg (1/2 x 2 mg) PO QHS #30 tabs 07/27/25 08/01/25 Rx sertraline 50 mg tablet 50 mg PO QDAY #30 tabs 07/2708/01/25 Rx Have you fallen in the past year?: No Laboratory Tests 09/27/23 12/16/23 07/10/24 13:28 13:51 15:05 WBC Hgb Hct MCV Plt Count 452 H 453 H 449 Absolute Neuts (auto) Absolute Lymphs (auto) Sodium Potassium Chloride Carbon Dioxide BUN Creatinine Glucose Calcium Magnesium Iron TIBC Iron Saturation Unsaturated IBC Ferritin 04/26/25 04/26/25 08/01/25 13:28 21:08 10:03 WBC 10.9 8.3 Hgb 12.6 13.0 Hct 38.2 39.2 MCV 90.7 Plt Count 521 H 419 Absolute Neuts (auto) 7.6 Absolute Lymphs (auto) 1.90 Sodium 139 Potassium 3.7 Chloride 102 Carbon Dioxide 26.5 BUN 18 Creatinine 0.87 Glucose 97 Calcium 9.8 Magnesium 2.5 H Iron 65 TIBC 421 Iron Saturation 15.0 Unsaturated IBC 356 Ferritin 69 Coding Level of Care Code Off vis,est,level 3 Exam Problem Focused Diagnoses Thrombocytosis D75.839 Assessment and Plan Assessment and Plan (1) Thrombocytosis: Status: Chronic Comment: PLT are normal today. Plan: To continue observation. Monitor counts. JAK2 Mutation is pending. RTC 6 months. Plan Details Follow Up: 6 Months Clinical Quality Measures Falls Risk Screening/Assistive Devices Have you fallen in the past year?: No 08/01/25 1119 <Electronically signed by Cy Silva> Date _ Cy Eubakns Signature: Date (if applicable) CC: Dr. Yennifer Johnson MD ~ [facility] Work Phone: Reason for referral (narrative)No reason for referral information availableWBrecksville [facility] Work Phone: Summary Purpose Family History [...] No May 04, 2022 4:57pm Power of [employer] Driver No May 04 4:57pm Advance Directive Response Recorded Date/ Time Advance Directives No May 26 6:34am Living Will No May 04, 2022 3:57pm Power of [employer] Driver No May 04 3:57pm Advance Directive Response Recorded Date/ Time Name of Medical Power of [employer] Driver - STEPHANIE RIVERA February 17, 2023 1:47pm Advance Directives No May 26 018 7:34am Living Will Yes February 17, 2023 1:47pm Power of [employer] Driver Yes February 17 1:47pm Advance Directive Response Recorded Date/ Time Advance Directives No May 26 7:34am Living Will Yes February 17, 2023 1:47pm Power of [employer] Driver Yes February 17 1:47pm Advance Directive Response Recorded Date/ Time Advance Directives No May 26 6:34am Living Will Yes October 06 10:45am Power of [employer] Driver Yes October 06, 2023 10:45am Advance Directive Response Recorded Date/ Time Advance Directives No Mccamey 2nd, 2 018 7:34am Living Will Yes October 06 023 11:45am Power of [employer] Driver Yes October 06, 2023 11:45am Date Activated [...] SOB, fatigue: already on Eliquis, Flecainide PALPITATIONS KAYKAY TO READ Reason for Visit Preventative health care Fatigue Paroxysmal atrial fibrillation Dizziness Essential (primary) hypertension Mixed hyperlipidemia Nonrheumatic aortic valve insufficiency Palpitations Chief Complaint FU/WANTS MAMM ORDER FLU EXPOSURE/FEVER/CONGESTION/COUGH SCREENING SOB, fatigue: already on Eliquis, Flecainide PALPITATIONS KAYKAY TO READ DIZZINESS Amb Documentation ARRTHTHMIA Amb Documentation Reason for Visit Preventative health care Fatigue Paroxysmal atrial fibrillation Dizziness Essential (primary) hypertension Mixed hyperlipidemia Nonrheumatic aortic valve insufficiency Palpitations Chief Complaint Admit Date INT LAB ORDERS March 24, 2025 7:38a m Chief Complaint Admit Date INT LAB ORDERS March 24, 2025 7:38a m 1 Y April 26, 2025 12:56 pm E-ORDER April 26, 2025 1:25p m Reason for Visit Admit Date Dyspnea on exertion April 26, 2025 12:56 pm Paroxysmal atrial fibrillation April 26, 2025 12:56pm Mixed hyperlipidemia April 26, 2025 12:5 6pm Palpitations April 26, 2025 12:56 pm Chief Complaint Admit Date INT LAB ORDERS March 24, 2025 7:38a m 1 Y April 26, 2025 12:56 pm E-ORDER April 26, 2025 1:25p m THROMBOCYTOSIS May 02, 2025 8:49a m Reason for Visit Admit Date Dyspnea on exertion April 26, 2025 12:56 pm Paroxysmal atrial fibrillation April 26, 2025 12:56pm Mixed hyperlipidemia April 26, 2025 12:5 6pm Palpitations April 26, 2025 12:56 pm Thrombocytosis May 02, 2025 8:49a m Chief Complaint Admit Date INT LAB ORDERS March 24, 2025 7:38a m 1 Y April 26, 2025 12:56 pm E-ORDER April 26, 2025 1:25p m THROMBOCYTOSIS May 02, 2025 8:49a m palpitations May 11, 2025 6:48 am palpitations May 11, 2025 7:05 am dyspnea/SOB May 12, 2025 7:56 am Amb Documentation May 14, 2025 11:2 2am Chief Complaint Admit Date INT LAB ORDERS March 24, 2025 7:38a m 1 Y April 26, 2025 12:56 pm E-ORDER April 26, 2025 1:25p m THROMBOCYTOSIS May 02, 2025 8:49a m palpitations May 11, 2025 6:48 am palpitations May 11, 2025 7:05 am dyspnea/SOB May 12, 2025 7:56 am Amb Documentation May 14, 2025 11:2 2am MED FU May 28, 2025 7:4 0am Chief Complaint Admit Date 1 Y April 26, 2025 12:56 pm E-ORDER April 26, 2025 1:25p m THROMBOCYTOSIS May 02, 2025 8:49a m palpitations May 11, 2025 6:48 am palpitations May 11, 2025 7:05 am dyspnea/SOB May 12, 2025 7:56 am Amb Documentation May 14, 2025 11:2 2am MED FU May 28, 2025 7:4 0am 2 M FU July 27, 2025 7: 35am Reason for Visit Admit Date Dyspnea on exertion April 26, 2025 12:56 pm Mixed hyperlipidemia April 26, 2025 12:5 6pm Palpitations April 26, 2025 12:56 pm Paroxysmal atrial fibrillation April 26, 2025 12:56pm Thrombocytosis May 02, 2025 8:49a m Preventative health care May 28 7:40am Anxiety and depression May 28, 2025 7:40am Essential (primary) hypertension May 28, 2025 7:40am Insomnia May 28, 2025 7:4 0am Paroxysmal atrial fibrillation May 7:40am Skin mole May 28, 2025 7:4 0am Thrombocytosis May 28, 2025 7:4 0am Chief Complaint Admit Date 1 Y FU April 26, 2025 12:56 pm E-ORDER April 26, 2025 1:25p m THROMBOCYTOSIS May 02, 2025 8:49a m palpitations May 11, 2025 6:48 am palpitations May 11, 2025 7:05 am dyspnea/SOB May 12, 2025 7:56 am Amb Documentation May 14, 2025 11:2 2am MED FU May 28, 2025 7:4 0am 2 M FU July 27, 2025 7: 35am 3 M FU July 27, 2025 8: 45am Reason for Visit Admit Date Dyspnea on exertion April 26, 2025 12:56 pm Mixed hyperlipidemia April 26, 2025 12:5 6pm Palpitations April 26, 2025 12:56 pm Paroxysmal atrial fibrillation April 26, 2025 12:56pm Thrombocytosis May 02, 2025 8:49a m Preventative health care May 28 7:40am Anxiety and depression May 28, 2025 7:40am Essential (primary) hypertension May 28, 2025 7:40am Insomnia May 28, 2025 7:4 0am Paroxysmal atrial fibrillation May 7:40am Skin mole May 28, 2025 7:4 0am Thrombocytosis May 28, 2025 7:4 0am Anxiety and depression July 27, 2025 7:35am Insomnia July 27, 2025 7: 35am Localized swelling of finger of right jhaveri July 27, 2025 7:35am Thrombocytosis July 27, 2025 7: 35am Dyspnea on exertion July 27, 2025 8: 45am Dizziness July 27, 2025 8: 45am Mixed hyperlipidemia July 27, 2025 8 :45am Palpitations July 27, 2025 8: 45am Paroxysmal atrial fibrillation July 272024 8:45am Chief Complaint Admit Date 1 Y FU April 26, 2025 12:56 pm E-ORDER April 26, 2025 1:25p m THROMBOCYTOSIS May 02, 2025 8:49a m palpitations May 11, 2025 6:48 am palpitations May 11, 2025 7:05 am dyspnea/SOB May 12, 2025 7:56 am Amb Documentation May 14, 2025 11:2 2am MED FU May 28, 2025 7:4 0am 2 M FU July 27, 2025 7: 35am 3 M FU July 27, 2025 8: 45am DIZZINESS August 01, 2025 7: 46am 3 MONTHS LABS August 01, 2025 9: 57am 3 MONTHS LABS August 01, 2025 10 :00am Reason for Visit Admit Date Dyspnea on exertion April 26, 2025 12:56 pm Mixed hyperlipidemia April 26, 2025 12:5 6pm Palpitations April 26, 2025 12:56 pm Paroxysmal atrial fibrillation April 26, 2025 12:56pm Thrombocytosis May 02, 2025 8:49a m Preventative health care May 28 7:40am Anxiety and depression May 28, 2025 7:40am Essential (primary) hypertension May 28, 2025 7:40am Insomnia May 28, 2025 7:4 0am Paroxysmal atrial fibrillation May 7:40am Skin mole May 28, 2025 7:4 0am Thrombocytosis May 28, 2025 7:4 0am Anxiety and depression July 27, 2025 7:35am Insomnia July 27, 2025 7: 35am Localized swelling of finger of right jhaveri nd July 27, 2025 7:35am Thrombocytosis July 27, 2025 7: 35am Chest tightness July 27, 2025 8: 45am Dizziness July 27, 2025 8: 45am Mixed hyperlipidemia July 27, 2025 8 :45am Palpitations July 27, 2025 8: 45am Paroxysmal atrial fibrillation July [id number] 8:45am Thrombocytosis August 01, 2025 10 :00am Reason for Referral Specialty Diagnoses / Procedures Referred By Contac t Referred To Contact Home Health Services Diagnoses Arthritis of left knee Keshawn Stevenson Shira, TREE PRUNER-SENIOR SOFTWARE QUALITY ENGINEER [address] [facility] [address] [place] [address] Referral ID Status Reason Start Date Expiration Date Visits Requested Visits Authorized [id number] Pending Review Specialty Services Required 04/04/2024 04/04/[phone] Additional Source Comments INFORMATION SOURCE (unrecogn ized section and content) DATE CREATED AUTHOR 05/23/2020 [facility] DATE CREATED AUTHOR AUTHOR'S ORGANIZ ATION 03/26/2024 [facility] DATE CREATED AUTHOR AUTHOR'S ORGANIZ ATION 04/07/[address] [facility] DATE CREATED AUTHOR AUTHOR'S ORGANIZ ATION 08/10/2025 [facility] Goals (unrecognized section and content) Goals may [...] Active Member Role Status Dates Dr. Yennifer Johsnon MD Primary Care Provider Active Nate Rubio MD Attending Provider Active Team Status: Inactive Member Role Status Dates Dr. Yennifer Johnson MD Primary Care Provider Active Dr. Cyrus Lopez MD Attending Provider, Referring Provider Active Karlie Johnson OPERATIONS SUPERVISOR 2ND SHIFT, OPERATIONS SUPERVISOR 2ND SHIFT-C Other Provider Active Team Status: Inactive Member Role Status Dates Dr. Yennifer Johnson MD Primary Care Provider Active Nate Rubio MD Attending Provider Active Team Status: Inactive Member Role Status Dates Dr. Yennifer Johnson MD Primary Care Provider Active Karlie Johnson OPERATIONS SUPERVISOR 2ND SHIFT, OPERATIONS SUPERVISOR 2ND SHIFT-C Attending Provider, Referring P rovider Active Team Status: Inactive Member Role Status Dates Dr. Yennifer Johnson MD Primary Care Provider, Refer ring Provider Active Karlie Johnson OPERATIONS SUPERVISOR 2ND SHIFT, OPERATIONS SUPERVISOR 2ND SHIFT-C Attending Provider Active Team Status: Inactive Member [...] MD Primary Care Provider Active Karlie Johnson OPERATIONS SUPERVISOR 2ND SHIFT, OPERATIONS SUPERVISOR 2ND SHIFT-C Attending Provider, Referring Dayna nolasco Active Team Status: Active Member Role Status Dates Dr. Yennifer Johnson MD Primary Care Provider Active Dr. Salazar Sim MD Attending Provider Active Karlie Johnson OPERATIONS SUPERVISOR 2ND SHIFT, OPERATIONS SUPERVISOR 2ND SHIFT-C Referring Provider Active Team Status: Active Member Role Status Dates Dr. Yennifer Johnson MD Primary Care Provider Active Karlie Johnson OPERATIONS SUPERVISOR 2ND SHIFT, OPERATIONS SUPERVISOR 2ND SHIFT-C Attending Provider Active Team Status: Active Member Role Status Dates Dr. Yennifer Johnson MD Primary Care Provider Active Dr. Imtiaz Mccracken MD Attending Provider Active Team Status: Inactive Member Role Status Dates Dr. Yennifer Johnson MD Primary Care Provider Active Start: March 24, 2025 End: March 24, 2025 Larry Rodriguez OPERATIONS SUPERVISOR 2ND SHIFT, OPERATIONS SUPERVISOR 2ND SHIFT-C Attending Provider Active S tart: March 24, 2025 End: March 24, 2025 Larry Rodriguez OPERATIONS SUPERVISOR 2ND SHIFT, OPERATIONS SUPERVISOR 2ND SHIFT-C Referring Provider Active S tart: March 24, 2025 End: March 24, 2025 Team Status: Active Member Role/Relationship Status Dates Dr. Yennifer Johnson MD Family Provider Active Dr. Yennifer Johnson MD Primary Care Provider Active Team Status: Inactive Member Role/Relationship Status Dates Dr. Yennifer Johnson MD Primary Care Provider Active Start: March 24, 2025 End: March 24, 2025 Larry Rodriguez OPERATIONS SUPERVISOR 2ND SHIFT, OPERATIONS SUPERVISOR 2ND SHIFT-C Attending Provider Active S tart: March 24, 2025 End: March 24, 2025 Larry Rodriguez OPERATIONS SUPERVISOR 2ND SHIFT, OPERATIONS SUPERVISOR 2ND SHIFT-C Referring Provider Active S tart: March 24, 2025 End: March 24, 2025 Team Status: Inactive Member Role/Relationship Status Dates Dr. Yennifer Johnson MD Primary Care Provider Active Start: April 26, 2025 End: April 26, 2025 Dr. Yennifer Johnson MD Referring Provider Active Start: April 26, 2025 End: April 26, 2025 Karlie Johnson OPERATIONS SUPERVISOR 2ND SHIFT, OPERATIONS SUPERVISOR 2ND SHIFT-C Attending Provider Active Start: April 26, 2025 End: April 26, 2025 Team Status: Active Member Role/Relationship Status Dates Dr. Yennifer Johnson MD Primary Care Provider Active Start: April 26, 2025 Karlie Johnson OPERATIONS SUPERVISOR 2ND SHIFT, OPERATIONS SUPERVISOR 2ND SHIFT-C Attending Provider Active Start: April 26, 2025 Karlie Johnson OPERATIONS SUPERVISOR 2ND SHIFT, OPERATIONS SUPERVISOR 2ND SHIFT-C Referring Provider Active Start: April 26, 2025 [...] 2025 End: April 26, 2025 Karlie Johnson OPERATIONS SUPERVISOR 2ND SHIFT, OPERATIONS SUPERVISOR 2ND SHIFT-C Attending Provider Active Start: April 26, 2025 End: April 26, 2025 Karlie Johnson OPERATIONS SUPERVISOR 2ND SHIFT, OPERATIONS SUPERVISOR 2ND SHIFT-C Referring Provider Active Start: April 26, 2025 End: April 26, 2025 Team Status: Active Member Role/Relationship Status Dates Dr. Yennifer Johnson MD Primary Care Provider Active Start: May 11, 2025 Karlie Johnson OPERATIONS SUPERVISOR 2ND SHIFT, OPERATIONS SUPERVISOR 2ND SHIFT-C Attending Provider Active Start: May 11, 2025 Karlie Johnson OPERATIONS SUPERVISOR 2ND SHIFT, OPERATIONS SUPERVISOR 2ND SHIFT-C Referring Provider Active Start: May 11, 2025 Team Status: Active Member Role/Relationship Status Dates Dr. Yennifer Johnson MD Primary Care Provider Active Start: May 11, 2025 Dr. Imtiaz Mccracken MD Attending Provider Active S tart: May 11, 2025 Karlie Johnson OPERATIONS SUPERVISOR 2ND SHIFT, OPERATIONS SUPERVISOR 2ND SHIFT-C Referring Provider Active Start: May 11, 2025 Team Status: Inactive Member Role/Relationship Status Dates Dr. Yennifer Johnson MD Primary Care Provider Active Start: May 12, 2025 End: May 12, 2025 Karlie Johnson OPERATIONS SUPERVISOR 2ND SHIFT, OPERATIONS SUPERVISOR 2ND SHIFT-C Attending Provider Active Start: May 12, 2025 End: May 12, 2025 Karlie Johnson OPERATIONS SUPERVISOR 2ND SHIFT, OPERATIONS SUPERVISOR 2ND SHIFT-C Referring Provider Active Start: May 12, 2025 End: May 12, 2025 Team Status: Active Member Role/Relationship Status Dates Dr. Yennifer Johnson MD Primary Care Provider Active Start: May 12, 2025 Dr. Imtiaz Mccracken MD Attending Provider Active S tart: May 12, 2025 Team Status: Active Member Role/Relationship Status Dates Dr. Yennifer Johnson MD Primary Care Provider Active Start: May 14, 2025 Karlie Johnson OPERATIONS SUPERVISOR 2ND SHIFT, OPERATIONS SUPERVISOR 2ND SHIFT-C Attending Provider Active Start: May 14, 2025 Team Status: Inactive Member Role/Relationship Status Dates Dr. Yennifer Johnson MD Primary Care Provider Active Start: May 11, 2025 End: May 11, 2025 Karlie Johnson OPERATIONS SUPERVISOR 2ND SHIFT, OPERATIONS SUPERVISOR 2ND SHIFT-C Attending Provider Active Start: May 11, 2025 End: May 11, 2025 Karlie Johnson OPERATIONS SUPERVISOR 2ND SHIFT, OPERATIONS SUPERVISOR 2ND SHIFT-C Referring Provider Active Start: May 11, 2025 End: May 11, 2025 Team Status: Inactive Member Role/Relationship Status Dates Dr. Yennifer Johnson MD Primary Care Provider Active Start: May 28, 2025 End: May 28, 2025 Dr. Yennifer Johnson MD Attending Provider Active Start: May 28, 2025 End: May 28, 2025 Dr. Yennifer Johnson MD Referring Provider Active Start: May 28, 2025 End: May 28, 2025 Team Status: Active Member Role/Relationship Status Dates Dr. Yennifer Johnson MD Primary care physician Activ e Team Status: Inactive Member Role/Relationship Status Dates Dr. Yennifer Johnson MD Primary care physician Activ e Start: April 26, 2025 End: April 26, 2025 Dr. Yennifer Johnson MD Referring Provider Active Start: April 26, 2025 End: April 26, 2025 Karlie Johnson OPERATIONS SUPERVISOR 2ND SHIFT, OPERATIONS SUPERVISOR 2ND SHIFT-C Attending physician Active Start: April 26, 2025 End: April 26, 2025 Team Status: Inactive Member Role/Relationship Status Dates Dr. Yennifer Johnson MD Primary care physician Activ e Start: April 26, 2025 End: April 26, 2025 Karlie Johnson OPERATIONS SUPERVISOR 2ND SHIFT, OPERATIONS SUPERVISOR 2ND SHIFT-C Attending physician Active Start: April 26, 2025 End: April 26, 2025 Karlie Johnson OPERATIONS SUPERVISOR 2ND SHIFT, OPERATIONS SUPERVISOR 2ND SHIFT-C Referring Provider Active Start: April 26, 2025 End: April 26, 2025 Team Status: Inactive Member Role/Relationship Status Dates Dr. Yennifer Johnson MD Primary care physician Activ e Start: May 02, 2025 End: May 02, 2025 Dr. Yennifer Johnson MD Referring Provider Active Start: May 02, 2025 End: May 02, 2025 Dr. Cy Peterson MD Attending physician Active Start: May 02, 2025 End: May 02, 2025 Team Status: Inactive Member Role/Relationship Status Dates Dr. Yennifer Johnson MD Primary care physician Activ e Start: May 11, 2025 End: May 11, 2025 Karlie Johnson OPERATIONS SUPERVISOR 2ND SHIFT, OPERATIONS SUPERVISOR 2ND SHIFT-C Attending physician Active Start: May 11, 2025 End: May 11, 2025 Karlie Johnson OPERATIONS SUPERVISOR 2ND SHIFT, OPERATIONS SUPERVISOR 2ND SHIFT-C Referring Provider Active Start: May 11, 2025 End: May 11, 2025 Team Status: Active Member Role/Relationship Status Dates Dr. Yennifer Johnson MD Primary care physician Activ e Start: May 11, 2025 Dr. Imtiaz Mccracken MD Attending physician Active Start: May 11, 2025 Karlie Johnson OPERATIONS SUPERVISOR 2ND SHIFT, OPERATIONS SUPERVISOR 2ND SHIFT-C Referring Provider Active Start: May 11, 2025 Team Status: Inactive Member Role/Relationship Status Dates Dr. Yennifer Johnson MD Primary care physician Activ e Start: May 12, 2025 End: May 12, 2025 Karlie Johnson OPERATIONS SUPERVISOR 2ND SHIFT, OPERATIONS SUPERVISOR 2ND SHIFT-C Attending physician Active Start: May 12, 2025 End: May 12, 2025 Karlie Johnson OPERATIONS SUPERVISOR 2ND SHIFT, OPERATIONS SUPERVISOR 2ND SHIFT-C Referring Provider Active Start: May 12, 2025 End: May 12, 2025 Team Status: Active Member Role/Relationship Status Dates Dr. Yennifer Johnson MD Primary care physician Activ e Start: May 12, 2025 Dr. Imtiaz Mccracken MD Attending physician Active Start: May 12, 2025 Team Status: Active Member Role/Relationship Status Dates Dr. Yennifer Johnson MD Primary care physician Activ e Start: May 14, 2025 Karlie Johnson OPERATIONS SUPERVISOR 2ND SHIFT, OPERATIONS SUPERVISOR 2ND SHIFT-C Attending physician Active Start: May 14, 2025 Team Status: Inactive Member Role/Relationship Status Dates Dr. Yennifer Johnson MD Primary care physician Activ e Start: May 28, 2025 End: May 28, 2025 Dr. Yennifer Johnson MD Attending physician Active Start: May 28, 2025 End: May 28, 2025 Dr. Yennifer Johnson MD Referring Provider Active Start: May 28, 2025 End: May 28, 2025 Team Status: Inactive Member Role/Relationship Status Dates Dr. Yennifer Johnson MD Primary care physician Activ e Start: July 27, 2025 End: July 27, 2025 Dr. Yennifer Johnson MD Attending physician Active Start: July 27, 2025 End: July 27, 2025 Dr. Yennifer Johnson MD Referring Provider Active Start: July 27, 2025 End: July 27, 2025 Team Status: Inactive Member Role/Relationship Status Dates Dr. Yennifer Johnson MD Primary care physician Activ e Start: July 27, 2025 End: July 27, 2025 Dr. Yennifer Johnson MD Referring Provider Active Start: July 27, 2025 End: July 27, 2025 Karlie Johnson OPERATIONS SUPERVISOR 2ND SHIFT, OPERATIONS SUPERVISOR 2ND SHIFT-C Attending physician Active Start: July 27, 2025 End: July 27, 2025 Team Status: Active Member Role/Relationship Status Dates Dr. Yennifer Johnson MD Primary care physician Activ e Start: August 01, 2025 Karlie Johnson OPERATIONS SUPERVISOR 2ND SHIFT, OPERATIONS SUPERVISOR 2ND SHIFT-C Attending physician Active Start: August 01, 2025 Karlie Johnson OPERATIONS SUPERVISOR 2ND SHIFT, OPERATIONS SUPERVISOR 2ND SHIFT-C Referring Provider Active Start: August 01, 2025 Team Status: Active Member Role/Relationship Status Dates Dr. Yennifer Johnson MD Primary care physician Activ e Start: August 01, 2025 Dr. Cy Peterson MD Attending physician Active Start: August 01, 2025 Dr. Cy Peterson MD Referring Provider Active S tart: August 01, 2025 Team Status: Inactive Member Role/Relationship Status Dates Dr. Yennifer Johnson MD Primary care physician Activ e Start: August 01, 2025 End: August 01, 2025 Dr. Yennifer Johnson MD Referring Provider Active Start: August 01, 2025 End: August 01, 2025 Dr. Cy Peterson MD Attending physician Active Start: August 01, 2025 End: August 01, 2025 Reason for Visit (unrecogniz ed section and content) Specialty Diagnoses / Procedures Referred By Arnie alvarez Referred To Contact Diagnoses Primary osteoarthritis of left knee LEFT KNEE OSTEOARTHRITIS Procedures [place] ARTHRP KNE CONDYLE&PLATU MEDIAL&LAT COMPARTMENTS Arthroplasty Resurfacing Total Knee Tin West MD [address] [facility] [address] [place] [address] [place] [address] [place] [address] Referral ID Status Reason Start Date Expiration Date Visits Re quested Visits Authorized [id number] 1 1 Scheduled Active and Recently Administ [...] Foley RN) 0023 (Given - Provider: Alyssa Graham, ANNI)0649 (Given - Provider: Alyssa Graham, ANNI)1352 (Given - Provider: Pao Foley, ANNI)1900 (Due) acetaminophen (Tylenol) tablet 650 mg (COMPLETED) [...] that apply): Surgical Prophylaxis, Indications: Surgical Prophylaxis 08 (Given - Provider: Nikki Alex APRN-TOWER SUPERVISOR) ceFAZolin in dextrose (iso-os) (Ancef) IVPB 2 [...] to admission) 0850 (Given - Provider: Pao Foley, ANNI) docusate sodium (Colace) capsule 100 mg 100 [...] block 0750 (Given - Provider: Cynthia Lopez, ANNI - Comment: PREOP NERVE BLOCK) flecainide (Tambocor) tablet 100 mg 100 mg, oral, Every 12 hours, First dose on Wed04/03/24 at 2100, Phase II/On Unit 215 (Given - Provider: Alyssa Graham RN) 0850 (Given - Provider: Pao Foley, RN)2100 (Due) gemfibrozil (Lopid) tablet 600 mg [...] II/On Unit 1310 (Given - Provider: Joanne Shtety RN) 0850 (Given - Provider: Pao Foley [...] (Continued by Anesthesia - Provider: Nikki Alex APRN-TOWER SUPERVISOR)0915 (New Bag - Provider: ANNALEE Walsh)1212 (Stopped [...] 92% 1230 (Start - Provider: Héctor Simental, WINDING INSPECTOR) PRN Medication Order 04/02/2024 04/03/2024 04/04/2024 [email or web address] [...] preference? Yes 1027 (Given - Provider: Odilia Desai, ANNI)1032 (Given - Provider: Odilia Desai, RN) ketorolac (Toradol) injection 15 mg 15 mg, intravenous, Every 6 hours PRN, pain breakthrough, Starting on Wed04/03/24 at 1212, For 5 days, Phase II/On Unit 2202 (Given - Provider: Alyssa Graham, ANNI) 06 (Given - Provider: Alyssa Graham, ANNI) ondansetron [...] BE BASED ON THE PRIMARY CLINICAL RECORDS. [facility] [facility]. provides no warranty or guarantee of the accuracy or completeness of information in this document.
--- NOTE | 2025-08-15 09:42 | STRESSREP_ITS ---
Stress Test Report Date: 08/15/2025 Procedure: Exercise tolerance test/imaging study Indications: Chest pain Consent: Per the patient Procedure: The patient exercised on a Igor protocol for 5 minutes and 1 second achieving a peak heart rate of 139 bpm (89% predicted maximal heart rate) with a peak blood pressure 180/68 mmHg and a peak MET capacity of 7.0 METs. The baseline ECG demonstrated sinus rhythm with incomplete right bundle branch block. The peak exercise ECG failed to show any ischemic changes. There were no cardiac dysrhythmias pretest, during exercise, or recovery. The functional capacity was considered average. There was no complaint of chest discomfort during exercise or recovery. The examination was discontinued secondary to target heart rate being achieved. The patient was injected with 11.8 mCi of technetium 99m Cardiolite and subsequently rest SPECT Cardiolite nuclear imaging was obtained in the horizontal long, vertical long, and short axis views. Post-exercise, the patient was injected with 34.1 mCi of technetium 99m Cardiolite and subsequently stress SPECT Cardiolite nuclear imaging was obtained in the horizontal long, vertical long, and short axis views. A gated Cardiolite study at peak stress was obtained. Rest and stress SPECT Cardiolite nuclear imaging status post realignment, normalization, and attenuation correction, demonstrates the appearance of relative uniform tracer uptake and myocardial perfusion appearing within normal limits. There is end systolic thickening and brightening. The gated Cardiolite study demonstrates myocardial thickening and inward wall motion. The reported LVEF is 85%. Impression: 1. Technically adequate (percent predicted maximal heart rate greater than 85%) exercise tolerance test 2. Peak exercise ECG with no ischemic changes 3. There were no cardiac dysrhythmias pretest, during exercise, or recovery 4. Rest and stress SPECT Cardiolite nuclear imaging demonstrate relative uniform tracer uptake and myocardial perfusion appearing within normal limits. 5. The gated Cardiolite study reports an LVEF of 85%. This note was generated with [employer]ation software. It may contain incorrect words, spelling, and punctuation that were not noted in checking the note before signing.
== END | disposition home or self-care (01) ==
LOC: CVS 06:12
PROVIDERS: PCP Internal Medicine; Referring Provider Nurse Practitioner Gerontology; Visit Provider Nurse Practitioner Gerontology
DX: R07.89 Other chest pain (principal); Z79.899 Other long term (current) drug therapy
CPT/HCPCS: 78452; 93017; A9500; A4216

== ENCOUNTER → 2025-09-29 | Outpatient (CLI) | payer BC, SELFPAY ==
--- OUTSIDE RECORDS SUMMARY | 2025-09-29 07:47 | XMS RPT_ITS | CCD ---
Author Organization [facility] Care Team Providers Care Business Support Liaison Name Role Phone Dr. Yennifer Johnson Primary Care Provider [phone] Dr. Yennifer Johnson Attending Provider [phone] Dr. Yennifer Johnson Referring Provider [phone] Alex RIVETING MACHINE OPERATOR AUTOMATIC, RIVETING MACHINE OPERATOR AUTOMATIC-C Karlie Attending Provider Dr. Cyrus Lopez Attending [...] Dr. Yennifer Johnson Referring Provider [phone] Alex RIVETING MACHINE OPERATOR AUTOMATIC, RIVETING MACHINE OPERATOR AUTOMATIC-C Karlie Attending Provider Dr. Yennifer Johnson Attending Provider [phone] NAVAS PA Sarabjit Nelson Attending Provider Dr. Yennifer Johnson Primary Care Provider [phone] Dr. Yennifer Johnson Referring Provider [phone] Alex RIVETING MACHINE OPERATOR AUTOMATIC, RIVETING MACHINE OPERATOR AUTOMATIC-C Karlie Attending Provider Dr. Yennifer Johnson Primary Care Provider [phone] Dr. Yennifer Johnson Attending Provider [phone] Dr. Yennifer Johnson Referring Provider [phone] NAVAS PA Sarabjit Nelson Attending Provider Alex MAYER, RIVETING MACHINE OPERATOR AUTOMATIC-C Karlie Attending Provider Dr. Salazar Sim Attending Provider [phone] Alex RIVETING MACHINE OPERATOR AUTOMATIC, RIVETING MACHINE OPERATOR AUTOMATIC-C Karlie Referring Provider Dr. Imtiaz Mccracken Attending Provider [phone] Unavailable Primary Care Provider Unavailjacqui e [facility] Admitting Unavailable [facility] Attending Unavailable Dr. Yennifer Johnson MD Primary Care Provider Michael MAYER-Larry Tamez Attending Provider [phone] Michael MAYER-Larry Tamez Referring Provider [phone] Dr. Yennifer Johnson MD Referring Provider [phone] Alex MAYER-CKarlie Attending Provider [phone] Alex MAYER-C, Karlie Referring Provider Kristen WSARTZ, Dr. Benoit Attending Provider Kaykay SWARTZ, Dr. Kitchen Attending Provider Elizabeth SWARTZ, Dr. De Oliveira Attending Provider [phone] Elizabeth SWARTZ, Dr. De Oliveira Primary Care Physician Alex RIVETING MACHINE OPERATOR AUTOMATIC-C, Karlie Attending Physician Kristen SWARTZ, Dr. Benoit Attending Physician Kaykay SWARTZ, Dr. Kitchen Attending Physician Elizabeth SWARTZ, Dr. De Oliveira Attending Physician [phone] Kristen SWARTZ, Dr. Benoit Referring Provider Chiquis SWARTZ, Dr. Lincoln Attending Physician Erica ALEXANDER, Dr. Benoit Attending Physician Alex RIVETING MACHINE OPERATOR AUTOMATIC-C, Kralie Nurse Practitioner [phone] Tevin SWARTZ, Dr. Daniel Attending Physician Oleghe, Efewongbe Primary Care Unavailable Johnson RIVETING MACHINE OPERATOR AUTOMATIC, Karlie Referring Unavailable Johnson RIVETING MACHINE OPERATOR AUTOMATIC, Karlie Attending Unavailable Oleghe, Efewongbe Primary Care Unavailable Alex RIVETING MACHINE OPERATOR AUTOMATIC, Karlie Referring Unavailable Johnson RIVETING MACHINE OPERATOR AUTOMATIC, Karlie Attending Unavailable Oleghe, Efewongbe Primary Care Unavailable Roof RIVETING MACHINE OPERATOR AUTOMATIC, Larry H Referring Unavailable Roof RIVETING MACHINE OPERATOR AUTOMATIC, Larry H Attending Unavailable Oleghe, Efewongbe Primary Care Unavailable Oleghe, Efewongbe Referring Unavailable Johnson RIVETING MACHINE OPERATOR AUTOMATIC, Karlie Attending Unavailable Oleghe, Efewongbe Primary Care Unavailable Oleghe, Efewongbe Referring Unavailable Oleghe, Efewongbe Attending Unavailable Johnson RIVETING MACHINE OPERATOR AUTOMATIC, Karlie Attending Unavailable Oleghe, Efewongbe Primary Care Unavailable Alex RIVETING MACHINE OPERATOR AUTOMATIC, Karlie Referring Unavailable Oleghe, Efewongbe Primary Care Unavailable Cy Peterson Referring Unavailable Cy Peterson Attending Unavailable Oleghe, Efewongbe Primary Care Unavailable Alex RIVETING MACHINE OPERATOR AUTOMATIC, Karlie Referring Unavailable Johnson RIVETING MACHINE OPERATOR AUTOMATIC, Karlie Attending Unavailable Johnson RIVETING MACHINE OPERATOR AUTOMATIC, Karlie Referring Unavailable Oleghe, Efewongbe Primary Care Unavailable Imtiaz Mccracken Attending Unavailable María Abarca Attending Unavailable Johnson RIVETING MACHINE OPERATOR AUTOMATIC, Karlie Consulting Unavailable Karlie Johnson NP Referring Unavailable Oleghe, Efewongbe Primary Care Unavailable [...] Attending Unavailable Oleghe, Efewongbe Referring Unavailable Alex MAYER, Karlie Attending Unavailable Oleghe, Efewongbe Primary Care Unavailable Oleghe, Efewongbe Referring Unavailable Oleghe, Efewongbe Primary Care Unavailable Oleghe, Efewongbe Attending Unavailable Karlie Johnson NP Referring Unavailable Oleghe, Efewongbe Primary Care Unavailable Alex MAYER, Karlie Attending Unavailable Oleghe, Efewongbe Referring Unavailable Cy Maldonado Attending Unavailable Oleghe, Efewongbe Primary Care Unavailable Oleghe, Efewongbe Referring Unavailable Oleghe, Efewongbe Primary Care Unavailable Cy Peterson Attending Unavailable Oleghe, Efewongbe Primary Care Unavailable Alex MAYER, Karlie Attending Unavailable Salazar Sim Attending Unavailable Karlie Johnson NP Referring Unavailable Oleghe, Efewongbe Primary Care Unavailable Imtiaz Mccracken Attending Unavailable Oleghe, Efewongbe Primary Care Unavailable Oleghe, Efewongbe Primary Care Unavailable Karlie Johnson NP Referring Unavailable Alex MAYER, Karlie Attending Unavailable Allergies Allergy Classification Reported Allergen(s) Allergy Type Date of Onset Reaction(s) Facility (20 sources) Adhesive agent; Translations: [adhesive] Propensity to adverse reactions 2 Other [facility] Comment on above: FROM ELECTRODE ADHES AMANDA (20 sources) Bee pollen Drug Allergy 1 Anaphylaxis [facility] (20 sources) Codeine; Translations: [CODEINE] Drug Allergy 5 Anaphylaxis [facility] (20 sources) HYDROmorphone; Translations: [HYDROMORPHONE] Drug Allergy 9 Anaphylaxis [facility] Comment on above: DIZZINESS, DRY MOUTH (20 sources) Niacin; Translations: [NIACIN] Drug Allergy 7 Hives, Rash, Swelling [facility] (20 sources) oxyCODONE; Translations: [oxycodone HCl] Drug Allergy 1 Anaphylaxis [facility] (20 sources) Propoxyphene; Translations: [propoxyphene napsylate] Drug Allergy 1 Angioedema [facility] (20 sources) Simvastatin; Translations: [SIMVASTATIN] Drug Allergy 1 Other [facility] (20 sources) dog dander Allergy to substance 2 Swelling [facility] (20 sources) Opioids - Morphine Analogues; Translations: [Opioids - Morphine Analogues] Allergy to substance 1 Anaphylaxis [facility] (20 sources) perfume; Translations: [perfume] Allergy to substance 1 swelling [facility] (20 sources) venom-honey bee Allergy to substance 6 Anaphylaxis [facility] (3 sources) atorvastatin; Translations: [ATORVASTATIN CALCIUM] Drug Allergy 6 [facility] (3 sources) Grass pollen; Translations: [GRASS POLLEN] Propensity to adverse reactions to drug (disorder) 6 Cough [facility] (3 sources) house dust allergenic extract; Translations: [HOUSE DUST] Drug Allergy 6 Cough [facility] (3 sources) Mold Extract; Translations: [MOLD] Drug Allergy 6 Cough [facility] (3 sources) Morphine; Translations: [MORPHINE] Drug Allergy 9 Cough, Dizziness, Headache, Itching, Other, Palpitations, Shortness of breath [facility] (3 sources) oxyCODONE; Translations: [OXYCODONE] Drug Allergy 4 Cough, Dizziness, Headache, Itching, Other, Rash, Shortness of breath, Swelling [facility] (3 sources) Propoxyphene; Translations: [PROPOXYPHENE] Drug Allergy 4 Shortness of breath, Cough, Dizziness [facility] (3 sources) rosuvastatin; Translations: [ROSUVASTATIN CALCIUM] Drug Allergy 7 Other [facility] Repository (3 sources) wasp venom; Translations: [WASP VENOM] Propensity to adverse reactions to drug (disorder) 6 Anaphylaxis [facility] Repository (2 sources) BEE VENOM PROTEIN (HONEY BEE); Translations: [BEE VENOM PROTEIN (HONEY BEE)] Propensity to adverse reactions to drug (disorder) 6 [facility] Repository (1 source) ALLERGIES NOT ON FILE; Translations: [ALLERGIES NOT ON FILE] Propensity to adverse reactions (disorder) [facility] 3 Repository (12 sources) Ketorolac Drug Allergy 4 Nausea [facility] Comment on above: swelling in face (1 source) Bee pollen Drug allergy (disorder) 5 [facility] Repository (1 source) Codeine Drug Allergy 5 [facility] Repository (1 source) HYDROmorphone Drug Allergy 5 [facility] Repository (1 source) Ketorolac Drug Allergy 5 [facility] Repository (1 source) Niacin Drug Allergy 5 [facility] Repository (1 source) Simvastatin Drug Allergy 5 [facility] Repository (1 source) venom-honey bee Drug allergy (disorder) 5 [facility] Repository (1 source) dog dander Drug allergy (disorder) 5 [facility] Repository Medications Current Medications Medication [...] oral, Every 6 hours, First dose on 04/03/24 at 1300, Phase II/On Unit, If ordered [...] 2019 10:12am eszopiclone 2 mg oral tablet (5 sources) Start: 07-27-2025 ibuprofen 600 mg oral tablet (20 sources) [...] Phase II/On Unit Multivitamin (Daily Multi-Vitamin) tablet (14 sources) Start: 12-16-2023 Start: 12-16-2023 Multivitamin ( Daily Multi-Vitamin) tablet [...] O2 Sat Above: 92% polyethylene glycol 3350 25364 mg powder for oral solution (1 source) Osmotic Laxative Start: 04-03-2024 17 g, oral, Daily, First dose on Wed04/03/24 at 1230, Phase II/On Unit sertraline 50 mg oral tablet (20 sources) Serotonin Reuptake Inhibitor Start: 07-27-2025 Start: 06-09-2022 End: 08-06-2022 take 1 tablet [...] mg / valsartan 320 mg oral tablet (15 sources) Dihydropyridine Calcium Channel Bull, Angiotensin 2 [...] 2022 9:22am benzonatate 200 mg oral capsule (15 sources) Non-narcotic Antitussive Start: 10-06-2023 End: 12-16-2023 [...] 2 NMA INHALATION TWICE A DAY 1 October 15, 2017 1:00am April 18, 2018 3:47pm administer with spacer, rinse mouth after each use Start: 10-15-2017 End: 04-18-2018 take 1 puff(s) by mouth twice daily Budesonide-Formoterol (Symbicort) 160-4.5 mcg/actuation HFA aerosol inhaler Discontinued 2 PUFF INHALATION TWICE A DAY October 15, 2017 1:00am April 18, 2018 [...] 200 mg (500 mg) -400 unit tablet (12 sources) Start: 08-06-2022 End: 12-16-2023 Calcium Carbonate-Vitamin [...] 3.125 mg PO TWICE A DAY 180 January 28, 2018 1:52pm April 18, 2018 [...] 2018 1:42pm dexamethasone 6 mg oral tablet (15 sources) Corticosteroid Start: 10-06-2023 End: 12-16-2023 take [...] 18, 2018 3:55pm May 12, 2018 2:10pm [id number] 0.3 ml EPINEPHrine 1 mg/ml auto-injector (20 [...] Nerve block Multivitamin,Tx-I duncan-Minerals (Complete Multivitamin) tablet (12 sources) Start: 09-30-2017 End: 01-10-2018 Multivitamin,Tx-Iron- Minerals [...] take 1 tablet by mouth once daily multivitamin,zv-wldr-ougtasnd tablet Discontinued 1 TABLET PO daily September 30, 2017 1:00am January 10, 2018 1:43pm Everson-3 Fatty Acids (14 sources) Start: 01-10-2018 End: 05-24-2018 take 1000 mg by mouth once daily Everson-3 Fatty Acids Discontinued 1000 MG PO daily January 09, 2018 11:00pm May 24, 2018 1:40pm Start: 01-10-2018 End: 05-24-2018 take 1000 mg by mouth once daily Everson-3 Fatty Acids Discontinued 1000 MG PO daily January 10, 2018 12:00am May 24, 2018 2:40pm Everson-3 Fatty Acids 1,000 mg capsule (12 sources) Start: 01-10-2018 End: 05-24-2018 take 1 capsule by mouth once daily Everson-3 Fatty Acids 1,000 mg capsule Discontinued 1000 [...] TIMES DAILY NEEDED as needed for Nausea 23 11July 28, 2019 2:21pm December 21, 2019 10:14am [...] have some minor T wave changes anteriorly. Complications of surgical procedures or medical care (20 sources) Non-healing surgical wound; Translations: [Other complications of procedures, not elsewhere classified, initial encounter] 09-03-2019 Episodic Comment on above: at [facility] bilateral breasts Conditions associated with dizziness or vertigo (20 sources) Dizziness; Translations: [Dizziness and giddiness] Onset: 5 08-24-2018 Episodic Conditions associated with dizziness or vertigo (4 sources) Conditions associated with dizziness or vertigo [...] left knee] Onset: 4 Chronic Other aftercare (12 sources) Follow-up status; Translations: [Encounter for other orthopedic aftercare] 04-11-2024 Episodic Other and ill-defined heart disease (20 sources) Left ventricular hypertrophy; Translations: [Cardiomegaly] 10-01-2017 Chronic Other and unspecified benign neoplasm (15 sources) Pigmented skin lesion ; Translations: [Melanocytic [...] knee] 08-06-2022 Episodic Other connective tissue disease (18 sources) Synovial cyst of popliteal space [Poe], left knee; Translations: [Synovial cyst of popliteal space] Episodic Other connective tissue disease (6 sources) Cyst of bursa; Translations: [Other bursal cyst, right hand] Episodic Other connective tissue disease (4 sources) Digital mucous cyst; Translations: [Ganglion, unspecified hand] 08-08-2025 Episodic Other gastrointestinal disorders (3 sources) Alteration [...] joint, lower leg] Episodic Other skin disorders (8 sources) Cyst of finger; Translations: [Other specified disorders of skin] Episodic Other skin disorders (12 sources) Localized swelling of finger of right [...] of breast] 07-24-2019 Episodic Residual codes; unclassified (12 sources) Postoperative state; Translations: [Other specified postprocedural states] 04-11-2024 Episodic Residual codes; unclassified (14 sources) Insomnia; Translations: [Insomnia, unspecified] 05-28-2025 Episodic [...] adult medical examination without abnormal findings Unclassified (5 sources) Patient encounter status Unclassified (5 sources) Z00.00 - Encounter for general adult medical examination without abnormal findings,D22.9 - Melanocytic nevi, unspecified Unclassified (1 source) M71.341 - Other bursal cyst, right hand Unclassified (4 sources) R22.31 - Localized swelling, mass and lump, right upper limb Unclassified (2 sources) Thrombocytosis, unspecified; Translations: [Thrombocytosis, unspecified] Onset: Urinary tract infections (1 source) Urinary tract infectious disease; Translations: [Urinary tract infection, site not specified] 04-04-2024 Episodic Past or Other Problems Problem Classification Problem Date Documented Date Episodic/Chronic Cardiac dysrhythmias (20 sources) Palpitations; Translations: [Palpitations] Onset: 05-18-2025 Episodic Comment on above: Patient's palpitatio ns coincide with benign PACs and PVCs on her recent 30-day event recorder. Other lower respiratory disease (1 source) Shortness [...] 2015 and 05/26/2018 vladimir Infante @ [facility]: normal coronaries Results Test Name Value Interpretation Reference Range Facility Stress Reporton 08-15-2025 Stress Report [facility] [address] [place] [address] MR#: [id number] Acct: [id number] Name: LEEANN CROCKETT Rep #: [id number] : 1960 65 From: María Abarca MD Primary Care: Dr. Yennifer Johnson MD Status: REG CLI Referring Dr: Karlie Johnson NP RIVETING MACHINE OPERATOR AUTOMATIC-C Sex: F C Stress Test Report Date: 08/15/2025 Procedure: Exercise tolerance test/imaging study Indications: Chest pain Consent: Per the patient Procedure: The patient exercised on a Igor protocol for 5 minutes and 1 second achieving a peak heart rate of 139 bpm (89% predicted maximal heart rate) with a peak blood pressure 180/68 mmHg and a peak MET capacity of 7.0 METs. The baseline ECG demonstrated sinus rhythm with incomplete right bundle branch block. The peak exercise ECG failed to show any ischemic changes. There were no cardiac dysrhythmias pretest, during exercise, or recovery. The functional capacity was considered average. There was no complaint of chest discomfort during exercise or recovery. The examination was discontinued secondary to target heart rate being achieved. The patient was injected with 11.8 mCi of technetium 99m Cardiolite and subsequently rest SPECT Cardiolite nuclear imaging was obtained in the horizontal long, vertical long, and short axis views. Post-exercise, the patient was injected with 34.1 mCi of technetium 99m Cardiolite and subsequently stress SPECT Cardiolite nuclear imaging was obtained in the horizontal long, vertical long, and short axis views. A gated Cardiolite study at peak stress was obtained. Rest and stress SPECT Cardiolite nuclear imaging status post realignment, normalization, and attenuation correction, demonstrates the appearance of relative uniform tracer uptake and myocardial perfusion appearing within normal limits. There is end systolic thickening and brightening. The gated Cardiolite study demonstrates myocardial thickening and inward wall motion. The reported LVEF is 85%. Impression: 1. Technically adequate (percent predicted maximal heart rate greater than 85%) exercise tolerance test 2. Peak exercise ECG with no ischemic changes 3. There were no cardiac dysrhythmias pretest, during exercise, or recovery 4. Rest and stress SPECT Cardiolite nuclear imaging demonstrate relative uniform tracer uptake and myocardial perfusion appearing within normal limits. 5. The gated Cardiolite study reports an LVEF of 85%. This note was generated with [employer] dictation software. It may contain incorrect words, spelling, and punctuation that were not noted in checking the note before signing. 08/15/25945 Date María Abarca MD CC: GINO Johnson; Dr. Yennifer Johnson MD Date Dictated: 08/15/25941 Date Transcribed: 08/15/25941 Sports Physiologist: RENATA Signed Normal [facility] [id number] 08-09-2025 [facility]. COMMENT Normal . [facility] Comment on above: Order Comment: [id number] WITH REFLEX-WB LAV-RT Result Comment: Test Ordered: [id number] JAK2 V617F rfx CALR/MPL/E12-15 Test(s) [id number] V617F Result was developed and its performance [...] patients. This test will assess for the [id number] (exon 14) mutation first and will reflex to CALR mutation analysis, MPL mutation analysis, and JAK2 exon 12 to 15 mutation analysis if the [id number] mutation is negative. The JAK2 (Janus kinase [...] BM, leukocytosis, increasing spleen size, and circulating WO20-vzblqgjz cells. The CALR (Calreticulin) gene encodes for [...] Performed By: #### L 500.3400, L500.4100 #### [facility] [address] [place], [place], [address] Finger(s) Min 2 Viewson 07-25 Finger(s) Min 2 Views [facility] Imaging Services [address] [place] [address] Finger(s) Min 2 Views MR#: [id number] Acct: [id number] Name: LEEANN CROCKETT Rep #: [id number] : 1960 F 65 From: Venice Garcia MD PCP: Dr. Yennifer Johnson MD Status: DEP AMB Study: Finger(s) Min 2 Views Date of Exam: 08/08/25 Exam# [id number] Ordering Dr: Cy Maldonado DO PROCEDURE: FINGER(S) [...] DEGENERATIVE OSTEOARTHROSIS. NO ACUTE FINDINGS. Reading [facility] CC: Dr. Yennifer Johnson MD; Dr. Cy Maldonado DO Sports Physiologist: Signed Normal [facility] Orthopedic Visit Reporton Orthopedic Visit Report [facility] [address] [place] [address] [address] [place] [address] OFFICE VISIT Date of Service: 08/08/25 MR#: [id number] Acct: [id number] Name: LEEANN CROCKETT Rep #: [id number] : 1960 Provider: Dr. Cy klein DO Age/Sex: 65/F Location: [facility] Status: Signed with Addenda ADDENDUM by Gale [...] Performing Provider: Cy Maldonado DO Performing Location: [facility] Administered by: Cy Maldonado DO on 08/08/25 15:58 Dose Route Admin Location Dispensed Lot Number Expiration Date Package NDC NDC Bung Dropper 10 mg intra-articular right index finger 0.25 mL [id number] 06/25/27 7257-9976-40 00 [id number] [facility] UP[facility] Date cc: * Signed Intake Vital Signs [...] problem Seasonal (more content not included)... Normal [facility] Absolute lymphocyte countOrd ered By: Cy Peterson on 08-01-2025 Lymphocytes Auto (Unsp spec) [#/Vol] 1.66 10*3/uL 0.83-4.51 [facility] Absolute neutrophil countOrd ered By: Cy Peterson on 08-01-2025 Neutrophils (Bld) [#/Vol] 5.4 10*3/uL 2.0-7.7 [facility] Anion gap in Serum or Plasma Ordered By: Cy Peterson on 08-01-2025 Anion gap [Moles/Vol] 14 mmol/L - [facility] Automated lymphocyte count a s percentage of total leukocytesOrdered By: Cy Peterson on 08-01-2025 Lymphocytes/100 WBC Auto (Unsp spec) 20.0 % - [facility] BUN/creatinine ratioOrdered By: Cy Peterson on 08-01-2025 Urea nitrogen/Creatinine [Mass ratio] 24.7 mg/mg High 10- [facility] Basophil percentageOrdered B y: Cy Peterson on 08-01-2025 Basophils/100 WBC (Bld) 0.8 % 0-[address] [facility] Bilirubin, totalOrdered By: Cy Peterson on 08-01-2025 Bilirubin [Mass/Vol] 0.37 mg/dL 0.00-1.30 [facility] CBC W/Diff, Automatedon Absolute Lymph 1.66 X10 3/uL Normal 0.83-4.51 [facility] Comment on above: Performed By: #### L 500.4100, L500.3400 #### [facility] [address] [place], [address] Absolute Neut 5.4 X10 3/uL Normal 2.0-7.7 [facility] Comment on above: Performed By: #### L 500.4100, L500.3400 #### [facility] [address] [place], [address] Basophils/100 WBC (Bld) 0.8 % Normal 0-[address] [facility] Comment on above: Performed By: #### L 500.4100, L500.3400 #### [facility] [address] [place], [address] Eosinophils/100 WBC (Bld) 2.9 % Normal 0-5 [facility] Comment on above: Performed By: #### L 500.4100, L500.3400 #### [facility] [address] [place], [address] Erythrocyte distribution width (RBC) [Ratio] 12.2 % Normal 11.6-14.6 [facility] Comment on above: Performed By: #### L 500.4100, L500.3400 #### [facility] [address] [place], [address] Hematocrit (Bld) [Volume fraction] 39.2 % Normal 37-47 [facility] Comment on above: Performed By: #### L 500.4100, L500.3400 #### [facility] [address] [place], [address] Hemoglobin (Bld) [Mass/Vol] 13.0 g/dL Normal 12.0-15.0 [facility] Comment on above: Performed By: #### L 500.4100, L500.3400 #### [facility] [address] [place], [address] IG% 0.800 Normal 0.0-0.9 [facility] Comment on above: Result Comment: IG% - Immature Granulocytes (promyelocytes, myelocytes and metamyelocytes) > 1% indicates that a LEFT SHIFT is Present. Performed By: #### L 500.4100, L500.3400 #### [facility] [address] [place], [address] Lymphocytes/100 WBC (Bld) 20.0 % Normal 19-41 [facility] Comment on above: Performed By: #### L 500.4100, L500.3400 #### [facility] [facility] [address] [place], [address] MCH (RBC) [Entitic mass] 29.8 pg Normal 27.0-32.0 [facility] Comment on above: Performed By: #### L 500.4100, L500.3400 #### [facility] [address] [place], [address] MCHC (RBC) [Mass/Vol] 33.2 g/dL Normal 32-36 [facility] Comment on above: Performed By: #### L 500.4100, L500.3400 #### [facility] [address] [place], [address] MCV (RBC) [Entitic vol] 89.9 fL Normal 81-[address] [facility] Comment on above: Performed By: #### L 500.4100, L500.3400 #### [facility] [address] [place], [address] Monocytes/100 WBC (Bld) 10.2 % High 0-[address] [facility] Comment on above: Performed By: #### L 500.4100, L500.3400 #### [facility] [address] [place], [address] Neutrophils/100 WBC (Bld) 65.3 % Normal 47-70 [facility] Comment on above: Performed By: #### L 500.4100, L500.3400 #### [facility] [address] [place], [address] Nucleated RBC (Bld) [#/Vol] 0 10*3/uL Normal 0-5 [facility] Comment on above: Performed By: #### L 500.4100, L500.3400 #### [facility] [address] [place], [address] Platelet mean volume (Bld) [Entitic vol] 9.6 fL Normal 6.2-12.0 [facility] Comment on above: Performed By: #### L 500.4100, L500.3400 #### [facility] [address] [place], [address] Platelets (Bld) [#/Vol] 419 10*3/uL Normal 150-450 [facility] Comment on above: Performed By: #### L 500.4100, L500.3400 #### [facility] [address] [place], [address] RBC (Bld) [#/Vol] 4.36 10*6/uL Normal 4.2-5.4 [facility] Comment on above: Performed By: #### L 500.4100, L500.3400 #### [facility] [address] [place], [address] RDW SD 40.2 fl Normal 35.1-43.9 [facility] Comment on above: Performed By: #### L 500.4100, L500.3400 #### [facility] [address] [place], [address] WBC (Bld) [#/Vol] 8.3 10*3/uL Normal 4.4-11.0 [facility] Comment on above: Performed By: #### L 500.4100, L500.3400 #### [facility] [address] [place], [address] CRPon 08-01-2025 C-REACTIVE PROT 3.44 mg/L High 0.0-3.0 [facility] Comment on above: Performed By: #### L 500.4100, L500.3400 #### [facility] [address] [place], [address] Carbon dioxide, total [Moles /volume] in Central venous bloodOrdered By: Cy Peterson on 08-01-2025 CO2 [Moles/Vol] 24.7 mmol/L 21.0-32.0 [facility] Carotid Duplex Ultrasoundon 08-01-2025 Carotid Duplex Ultrasound [facility] [address] [place] [address] Carotid Duplex Ultrasound 08/01/25 0807 MR#: [id number] Acct: [id number] Name: LEEANN CROCKETT Rep #: [id number] : 1960 65 From: Salazar Sim MD Attending Dr: Karlie Johnson NP-C Status: REG C Ordering Dr: Karlie Johnson NP RIVETING MACHINE OPERATOR AUTOMATIC-C Date: 08/01/25 Location: [facility] Sex: F C [...] the left vertebral artery. Procedure Carotid Duplex 13843. This is a Carotid Duplex examination using B-mode, color flow and specral Doppler. Exam performed in department. VL/Carotid Duplex Ultrasound Interpretation Summary Mild (<50%) stenosis right extracranial internal carotid. Normal left extracranial internal carotid. Patent and antegrade vertebrals bilaterally. Ordering Physician: Karlie Johnson Referring Physician: Yennifer Johnson Performed By: Luann Gillette RVT and Student 08/02/251405 Date Salazar Sim MD CC: RIVETING MACHINE OPERATOR AUTOMATIC-C Karlie Johnson; Dr. Yennifer Johnson MD Date Dictated: 08/01/25806 Date Transcribed: 08/02/251405 Sports Physiologist: Signed Normal [facility] Chloride assayOrdered By: Poonam Peterson on 08-01-2025 Chloride [Moles/Vol] 103 mmol/L 98-108 [facility] Comprehensive Metabolic Prof ilon 08-01-2025 Albumin [Mass/Vol] 4.6 g/dL Normal 3.4-4.8 [facility] Comment on above: Performed By: #### L 500.4100, L500.3400 #### [facility] [address] [place], [address] Albumin/Globulin [Mass ratio] 1.5 {ratio} Normal 0.9-2.4 [facility] Comment on above: Performed By: #### L 500.4100, L500.3400 #### [facility] [address] [place], [address] ALK PHOS 79 U/L Normal 35-104 [facility] Comment on above: Performed By: #### L 500.4100, L500.3400 #### [facility] [address] [place], [address] ALT [Catalytic activity/Vol] 14 U/L Normal <=34 [facility] Comment on above: Performed By: #### L 500.4100, L500.3400 #### [facility] [address] [place], [address] AST [Catalytic activity/Vol] 18 U/L Normal <=31 [facility] Comment on above: Performed By: #### L 500.4100, L500.3400 #### [facility] [address] [place], [address] Bilirubin [Mass/Vol] 0.37 mg/dL Normal 0.00-1.30 [facility] Comment on above: Performed By: #### L 500.4100, L500.3400 #### [facility] [address] [place], [address] BUN/CRE 24.7 RATIO High 10-20 [facility] Comment on above: Performed By: #### L 500.4100, L500.3400 #### [facility] [address] [place], [address] Calcium [Mass/Vol] 9.8 mg/dL Normal 7.6-11.0 [facility] Comment on above: Performed By: #### L 500.4100, L500.3400 #### [facility] [address] [place], [address] Chloride [Moles/Vol] 103 mmol/L Normal 98-108 [facility] Comment on above: Performed By: #### L 500.4100, L500.3400 #### [facility] [address] [place], [address] CO2 [Moles/Vol] 24.7 mmol/L Normal 21.0-32.0 [facility] Comment on above: Performed By: #### L 500.4100, L500.3400 #### [facility] [address] [place], [address] Creatinine [Mass/Vol] 0.85 mg/dL Normal 0.70-1.20 [facility] Comment on above: Performed By: #### L 500.4100, L500.3400 #### [facility] [address] [place], [address] ECRCL 61.66 ml/min Normal 50-250 [facility] Comment on above: Performed By: #### L 500.4100, L500.3400 #### [facility] [address] [place], [address] GAP 14 Normal 5-15 [facility] Comment on above: Performed By: #### L 500.4100, L500.3400 #### [facility] [address] [place], [address] GFR/1.73 sq M.predicted among non-blacks MDRD (S/P/Bld) [Vol rate/Area] 76 mL/min/{1.73_m2} Normal >60 [facility] Comment on above: Result Comment: mL/m in/1.73m2 CKD-EPI Creatinine Equation (2020) Performed By: #### L 500.4100, L500.3400 #### [facility] [address] [place], [address] Globulin (S) [Mass/Vol] 3.2 g/dL Normal 2.2-4.2 [facility] Comment on above: Performed By: #### L 500.4100, L500.3400 #### [facility] [address] [place], [address] Glucose [Mass/Vol] 99 mg/dL Normal 70-99 [facility] Comment on above: Performed By: #### L 500.4100, L500.3400 #### [facility] [address] [place], [address] Potassium [Moles/Vol] 4.1 mmol/L Normal 3.3-5.1 [facility] Comment on above: Performed By: #### L 500.4100, L500.3400 #### [facility] [address] [place], [address] Sodium [Moles/Vol] 141 mmol/L Normal 133-145 [facility] Comment on above: Performed By: #### L 500.4100, L500.3400 #### [facility] [address] [place], [address] T PROT 7.8 g/dL Normal 5.9-8.4 [facility] Comment on above: Performed By: #### L 500.4100, L500.3400 #### [facility] [address] [place], [address] Urea nitrogen [Mass/Vol] 21 mg/dL High 4-19 [facility] Comment on above: Performed By: #### L 500.4100, L500.3400 #### [facility] [address] [place], [address] Eosinophil percentageOrdered By: Cy Peterson on 08-01-2025 Eosinophils/100 WBC (Bld) 2.9 % 0-5 [facility] Erythrocyte Sed Rateon 08-01 SED RATE 6 mm/hr Normal 0-30 [facility] Comment on above: Performed By: #### L 100.0100, L3410.9992, L503.6030, L101.9900, L504.2610, L100.9950, L501.6710, L503.6550, L501.2300, L500.4050, L503.0106, L501.5200 #### [facility] [address] [place], [address] Erythrocyte distribution wid th ratioOrdered By: Cy Peterson on 08-01-2025 Erythrocyte distribution width (RBC) [Ratio] 12.2 % 11.6-14.6 [facility] Erythrocyte distribution wid th standard deviationOrdered By: Cy Peterson on 08-01-2025 Erythrocyte distribution width (RBC) [Ratio] 40.2 fl 35.1-43.9 [facility] Erythrocyte sedimentation ra teOrdered By: Cy Peterson on 08-01-2025 ESR (Bld) [Velocity] 6 mm/h 0-30 [facility] Ferritinon 08-01-2025 Ferritin [Mass/Vol] 62 ng/mL Normal 22-378 [facility] Comment on above: Performed By: #### L 500.4100, L500.3400 #### [facility] [address] [place], [address] Glomerular filtration rate ( GFR) estimation/1.73 sq m using serum, plasma, or whole bOrdered By: Cy Peterson on 08-01-2025 GFR/1.73 sq M.predicted among non-blacks MDRD (S/P/Bld) [Vol rate/Area] 76 mL/min/{1.73_m2} >60 [facility] Comment on above: mL/min/1.73m2 CKD-EP I Creatinine Equation (2020) Hematocrit Auto (Bld) [Volum e fraction]Ordered By: Cy Peterson on 08-01-2025 Hematocrit (Bld) [Volume fraction] 39.2 % 37-47 [facility] Hemoglobin measurementOrdere d By: Cy Peterson on 08-01-2025 Hemoglobin (Bld) [Mass/Vol] 13.0 g/dL 12.0-15.0 [facility] Immature granulocytes/100 WB C Auto (Bld)Ordered By: Cy Peterson on 08-01-2025 Immature granulocytes/100 WBC (Bld) 0.800 % 0.0-0.9 [facility] Comment on above: IG% - Immature Granu locytes (promyelocytes, myelocytes and metamyelocytes) > 1% indicates that a LEFT SHIFT is Present. Iron measurement (mass/mass) Ordered By: Cy Peterson on 08-01-2025 Iron (Unsp spec) [Mass/Mass] 93 ug/dL 50-170 [facility] Iron+Iron Binding Capacityon 08-01-2025 Iron [Mass/Vol] 93 ug/dL Normal 50-170 [facility] Comment on above: Performed By: #### L 500.4100, L500.3400 #### [facility] [address] [place], [address] IRON SATURATION 21.4 Normal 13-59 [facility] Comment on above: Performed By: #### L 500.4100, L500.3400 #### [facility] [address] [place], [address] TIBC 434 ug/dL Normal 250-450 [facility] Comment on above: Performed By: #### L 500.4100, L500.3400 #### [facility] [address] [place], [address] UIBC 341 ug/dL Normal 228-428 [facility] Comment on above: Performed By: #### L 500.4100, L500.3400 #### [facility] [address] [place], [address] LDHon 08-01-2025 LDH 148 U/L Normal 84-246 [facility] Comment on above: Order Comment: 1 Performed By: #### L 500.4100, L500.3400 #### [facility] [address] [place], [address] Laboratory - Chemistry and C hemistry - challengeOrdered By: Cy Peterson on 08-01-2025 AST [Catalytic activity/Vol] 18 U/L <32 [facility] Lactate dehydrogenase (LDH) measurementOrdered By: Cy Peterson on 08-01-2025 LDH [Catalytic activity/Vol] 148 U/L 84-246 [facility] MCV (mean corpuscular volume ) determinationOrdered By: Cy Peterson on 08-01-2025 MCV (RBC) [Entitic vol] 89.9 fL 81-[address] [facility] Magnesiumon 08-01-2025 Magnesium [Mass/Vol] 2.4 mg/dL High 1.5-2.2 [facility] Comment on above: Performed By: #### L 500.4100, L500.3400 #### [facility] [address] [place], [address] Magnesium measurement (mass/ volume)Ordered By: Cy Peterson on 08-01-2025 Magnesium (Unsp spec) [Mass/Vol] 2.4 mg/dL High 1.5-2.2 [facility] Mean corpuscular hemoglobin (MCH) determinationOrdered By: Cy Peterson on 08-01-2025 MCH (RBC) [Entitic mass] 29.8 pg 27.0-32.0 [facility] Mean corpuscular hemoglobin concentration (MCHC) determinationOrdered By: Cy Peterson on 08-01-2025 MCHC (RBC) [Mass/Vol] 33.2 g/dL 32-36 [facility] Mean platelet volume determi nationOrdered By: Cy Peterson on 08-01-2025 Platelet mean volume (Bld) [Entitic vol] 9.6 fL 6.2-12.0 [facility] Monocyte percentageOrdered B y: Cy Peterson on 08-01-2025 Monocytes/100 WBC (Bld) 10.2 % High 0-[address] [facility] Neutrophil percentageOrdered By: Cy Peterson on 08-01-2025 Neutrophils/100 WBC (Bld) 65.3 % 47-70 [facility] No Panel InformationOrdered By: Cy Peterson on 08-01-2025 Unsaturated Iron Binding Capacity 341 ug/dL 228-428 [facility] Nucleated red blood cell per centageOrdered By: Cy Peterson on 08-01-2025 Nucleated RBC/100 WBC (Bld) [Ratio] 0 % 0-5 [facility] Oncology Visit Reporton Oncology Visit Report [facility] [address] [place] [address] OFFICE VISIT Date of Service: 08/01/25 1048 MR#: [id number] Acct: [id number] Name: LEEANN CROCKETT Rep #: [id number] : 1960 From: Cy Peterson MD Age/Sex: 65/F Location: [facility] [place] Status: Signed HPI Subjective Date of Service 08/01/25 Chief Complaint F/u for thrombocytopenia. History of Present Illness 65y.o.woman was found to slight elevation of PLT and referred for evaluation. She denies bleeding disorders, anemia. She is on observation, comes for follow up. Feels well. [facility] Medical History Localized swelling of finger of [...] Rx multivita (more content not included)... Normal [facility] Phosphoruson 08-01-2025 Phosphate [Mass/Vol] 3.8 mg/dL Normal 2.7-4.5 [facility] Comment on above: Performed By: #### L 500.4100, L500.3400 #### [facility] [address] [place], [address] Platelet countOrdered By: Poonam Peterson on 08-01-2025 Platelets (Bld) [#/Vol] 419 10*3/uL 150-450 [facility] Potassium measurement (mass/ volume)Ordered By: Cy Peterson on 08-01-2025 Potassium (Unsp spec) [Mass/Vol] 4.1 mmol/L 3.3-5.1 [facility] RBC Auto (Bld) [#/Vol]Ordere d By: Cy Peterson on 08-01-2025 RBC (Bld) [#/Vol] 4.36 10*6/uL 4.2-5.4 [facility] Retic Panelon 08-01-2025 IM RET FRACTION 12.20 Normal 3.00-15.90 [facility] Comment on above: Performed By: #### L 500.4100, L500.3400 #### [facility] [address] [place], [address] RET-HE 32.9 pg Normal 30-35 [facility] Comment on above: Performed By: #### L 500.4100, L500.3400 #### [facility] [address] [place], [address] Retic Count 2.10 High 0.5-1.5 [facility] Comment on above: Performed By: #### L 500.4100, L500.3400 #### [facility] [address] [place], [address] Reticulocyte hemoglobin equi valent (RET-He) measurementOrdered By: Cy Peterson on 08-01-2025 Hemoglobin (Reticulocytes) [Entitic mass] 32.9 pg 30-35 [facility] Reticulocytes Auto (Bld) [#/ Vol]Ordered By: Cy Peterson on 08-01-2025 Reticulocytes/100 RBC (Bld) 2.10 % High 0.5-1.5 [facility] Serum creatinine measurement (mass/volume)Ordered By: Cy Peterson on 08-01-2025 Creatinine [Mass/Vol] 0.85 mg/dL 0.70-1.20 [facility] Serum globulin measurementOr dered By: Cy Peterson on 08-01-2025 Globulin (S) [Mass/Vol] 3.2 g/dL 2.2-4.[address] [facility] Serum glucose measurement (m ass/volume)Ordered By: Cy Peterson on 08-01-2025 Glucose [Mass/Vol] 99 mg/dL 70-99 [facility] Serum or plasma C reactive p rotein measurement (mass/volume)Ordered By: Cy Peterson on 08-01-2025 CRP [Mass/Vol] 3.44 mg/L High 0.0-3.0 [facility] Serum or plasma alanine castañeda otransferase (ALT) measurementOrdered By: Cy Peterson on 08-01-2025 ALT [Catalytic activity/Vol] 14 U/L <35 [facility] Serum or plasma albumin kyree urement (mass/volume)Ordered By: Cy Peterson on 08-01-2025 Albumin [Mass/Vol] 4.6 g/dL 3.4-4.8 [facility] Serum or plasma albumin/glob ulin mass ratioOrdered By: Cy Peterson on 08-01-2025 Albumin/Globulin [Mass ratio] 1.5 {ratio} 0.9-2.4 [facility] Serum or plasma alkaline tevin sphatase measurementOrdered By: Cy Peterson on 08-01-2025 ALP [Catalytic activity/Vol] 79 U/L 35-104 [facility] Serum or plasma calcium kyree urement (mass/volume)Ordered By: Cy Peterson on 08-01-2025 Calcium [Mass/Vol] 9.8 mg/dL 7.6-11.0 [facility] Serum or plasma ferritin terri surement (mass/volume)Ordered By: Cy Peterson on 08-01-2025 Ferritin [Mass/Vol] 62 ng/mL 22-378 [facility] Serum or plasma iron saturat ion measurement (mass fraction)Ordered By: Cy Peterson on 08-01-2025 Iron saturation [Mass fraction] 21.4 % 13-59 [facility] Serum or plasma urea nitroge n measurement (mass/volume)Ordered By: Cy Peterson on 08-01-2025 Urea nitrogen [Mass/Vol] 21 mg/dL High 4-19 [facility] Sodium levelOrdered By: Abdullahi Peterson on 08-01-2025 Sodium [Moles/Vol] 141 mmol/L 133-145 [facility] Total proteinOrdered By: Thomas Peterson on 08-01-2025 Protein [Mass/Vol] 7.8 g/dL 5.9-8.4 [facility] Vitamin B12on 08-01-2025 Cobalamin (Vitamin B12) [Mass/Vol] 241 pg/mL Normal 180-914 [facility] Comment on above: Performed By: #### L 500.4100, L500.3400 #### [facility] [address] [place], [place], [address] Vitamin B12 ser/plasOrdered By: Cy Peterson on 08-01-2025 Cobalamin (Vitamin B12) [Mass/Vol] 241 pg/mL 180-914 [facility] White blood cell (WBC) count Ordered By: Cy Peterson on 08-01-2025 WBC (Bld) [#/Vol] 8.3 10*3/uL 4.4-11.0 [facility] Cardiology Visit Reporton Cardiology Visit Report [facility] [address] [place], [place] [address] OFFICE VISIT Date of Service: 07/27/25 MR#: [id number] Acct: [id number] Name: LEEANN CROCKETT CHAZ Rep #: [id number] : 1960 Provider: GINO sesay Age/Sex: 65/F Location: [facility] [place] Status: Signed HPI HPI History of Present [...] air Intake Visit Reasons: 3 M FU Environmental Monitoring Technician Required: No Is patient in pain?: No [...] you fallen in the past year?: Yes PFSH Medical History (Reviewed 07/27/25 @ 09:22 by Karlie Johnson RIVETING MACHINE OPERATOR AUTOMATIC, RIVETING MACHINE OPERATOR AUTOMATIC-C) Localized swelling of finger of right hand Other bursal cyst, right hand Cyst of finger Insomnia Skin mole Thrombocytosis High cholesterol Tear of medial meniscus of left knee Osteoarthritis of left knee 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 Normal [facility] Internal Medicine Office Vis iton 07-27-2025 Internal Medicine Office Visit [facility] [address] [place] [address] [place] [address] OFFICE VISIT Date of Service: 07/27/25 MR#: [id number] Acct: [id number] Name: LEEANN CROCKETT Rep #: [id number] : 1960 Provider: Dr. Yennifer garza MD Age/Sex: 65/F Location: [facility] [place] Status: Signed Intake Vital Signs 05/28/25 07:36 [...] Reasons: 2 M FU Chief Complaint: fu Environmental Monitoring Technician Required: No Accompanied by: Self Is [...] 07/27/25 @ 09:28 by Karlie Johnson NP, RIVETING MACHINE OPERATOR AUTOMATIC-C) Localized swelling of finger of right hand [...] History (Reviewed (more content not included)... Normal [facility] Internal Medicine Office Vis aden 05-28-2025 Internal Medicine Office Visit [facility] [place] [address] [place] [address] OFFICE VISIT Date of Service: 05/28/25 MR#: [id number] Acct: [id number] Name: LEEANN CROCKETT Rep #: [id number] : 1960 Provider: Dr. Yennifer garza MD Age/Sex: 65/F Location: [facility] [place] Status: Signed Intake Vital Signs 07/10/24 14:39 05/28/25 07:36 Height 5 ft 2 in 5 ft 2 in Weight: 158 lb BMI 28.9 BP 120/68 Blood Pressure Location Lt brachial Position Sitting Respiration 16 Pulse 72 Pulse Source Monitor Temp 97 F L Temp Source Temporal Pulse Oximetry (%) 98 Oxygen Delivery Method room air Intake Visit Reasons: MED FU Chief Complaint: fu Environmental Monitoring Technician Required: No Accompanied by: Self Is [...] and mole would like them looked at [facility] Medical History (Updated 05/28/25 @ 08:09 by [...] quit smoking: (more content not included)... Normal [facility] Echocardiogram study reportO rdered By: Imtiaz Mccracken on 05-14-2025 Study report [facility] [address] [place] [address] Echo Complete 05/12/25 0803 MR#: [id number] Acct: [id number] Name: LEEANN CROCKETT Rep #:[id number] : 1960 65 From: Imtiaz Silva Attending Dr: Karlie Johnson, RIVETING MACHINE OPERATOR AUTOMATIC-C S tatus: REG CLI Ordering Dr: Karlie Johnson NP RIVETING MACHINE OPERATOR AUTOMATIC-C Loki e: 05/12/25 Location: [facility] Sex: F C Admitted: Reason For Study [...] Physician: Yennifer Johnson Performed By: Mariia Forrest, MICHELE, RVT 05/14/25739 Date _ Imtiaz Mccracken MD CC: GINO Johnson; Dr. Yennifer Johnson MD ~ Date Dictated: 05/12/25 08 Date Transcribed: 05/14/25739 Sports Physiologist: Signed [facility] Work Phone: Echo Completeon 05-12-2025 Echo Complete [facility] [place] [address] Echo Complete 05/12/25 0803 MR#: [id number] Acct: [id number] Name: LEEANN CROCKETT Rep #: [id number] : 1960 65 From: Imtiaz Mccracken MD Attending Dr: GINO Chamorro Status: REG C Ordering Dr: Karlie Johnson NP RIVETING MACHINE OPERATOR AUTOMATIC-C Date: 05/12/25 Location: [facility] Sex: F C Admitted: Reason For Study [...] Physician: Yennifer Johnson Performed By: Mariia Forrest, RDCS, RVT 05/14/25739 Date Imtiaz Mccracken MD CC: GINO Johnson; Dr. Yennifer Johnson MD Date Dictated: 05/12/25802 Date Transcribed: 05/14/25739 Sports Physiologist: Signed Normal [facility] Oncology Visit Reporton Oncology Visit Report [facility] [place] [address] OFFICE VISIT Date of Service: 05/02/25 09 MR#: [id number] Acct: [id number] Name: LEEANN CROCKETT Rep #: [id number] : 1960 From: Cy Peterson MD Age/Sex: 65/F Location: [facility] [place] Status: Signed HPI Subjective Date of Service 05/02/25 Chief Complaint Referred for thrombocytosis. History of Present Illness 65y.o.woman was found to slight elevation of PLT and referred for evaluation. She denies bleeding disorders, anemia. [facility] Medical History Thrombocytosis High cholesterol Tear of [...] room air (more content not included)... Normal [facility] Absolute lymphocyte countOrd ered By: Karlie Johnson on 04-26-2025 Lymphocytes Auto (Unsp spec) [#/Vol] 1.90 10*3/uL 0.83-4.51 [facility] Absolute neutrophil countOrd ered By: Karlie Johnson on 04-26-2025 Neutrophils (Bld) [#/Vol] 7.6 10*3/uL 2.0-7.7 [facility] Anion gap in Serum or Plasma Ordered By: Karlie Johnson on 04-26-2025 Anion gap [Moles/Vol] 11 mmol/L 5-15 [facility] Automated lymphocyte count a s percentage of total leukocytesOrdered By: Karlie Johnson on 04-26-2025 Lymphocytes/100 WBC Auto (Unsp spec) 17.5 % Low 19-41 [facility] BUN/creatinine ratioOrdered By: Karlie Johnson on 04-26-2025 Urea nitrogen/Creatinine [Mass ratio] 21.2 mg/mg High 10-20 [facility] Basic Metabolic Profile (BMP )on 04-26-2025 BUN/CRE 21.2 RATIO High 10-20 [facility] Comment on above: Performed By: #### L 501.5200, L501.9520, L503.7505, L100.0100, L500.2500 #### [facility] [address] [place], [address] Calcium [Mass/Vol] 9.8 mg/dL Normal 7.6-11.0 [facility] Comment on above: Performed By: #### L 501.5200, L501.9520, L503.7505, L100.0100, L500.2500 #### [facility] [address] [place], [address] Chloride [Moles/Vol] 102 mmol/L Normal 98-108 [facility] Comment on above: Performed By: #### L 501.5200, L501.9520, L503.7505, L100.0100, L500.2500 #### [facility] [address] [place], [address] CO2 [Moles/Vol] 26.5 mmol/L Normal 21.0-32.0 [facility] Comment on above: Performed By: #### L 501.5200, L501.9520, L503.7505, L100.0100, L500.2500 #### [facility] [address] [place], [address] Creatinine [Mass/Vol] 0.87 mg/dL Normal 0.70-1.20 [facility] Comment on above: Performed By: #### L 501.5200, L501.9520, L503.7505, L100.0100, L500.2500 #### [facility] [address] [place], [address] GAP 11 Normal 5-15 [facility] Comment on above: Performed By: #### L 501.5200, L501.9520, L503.7505, L100.0100, L500.2500 #### [facility] [address] [place], [address] GFR/1.73 sq M.predicted among non-blacks MDRD (S/P/Bld) [Vol rate/Area] 74 mL/min/{1.73_m2} Normal >60 [facility] Comment on above: Result Comment: mL/m in/1.73m2 CKD-EPI Creatinine Equation (2020) Performed By: #### L 501.5200, L501.9520, L503.7505, L100.0100, L500.2500 #### [facility] [address] [place], [address] Glucose [Mass/Vol] 97 mg/dL Normal 70-99 [facility] Comment on above: Performed By: #### L 501.5200, L501.9520, L503.7505, L100.0100, L500.2500 #### [facility] [address] [place], [address] Potassium [Moles/Vol] 3.7 mmol/L Normal 3.3-5.1 [facility] Comment on above: Performed By: #### L 501.5200, L501.9520, L503.7505, L100.0100, L500.2500 #### [facility] [address] [place], [address] Sodium [Moles/Vol] 139 mmol/L Normal 133-145 [facility] Comment on above: Performed By: #### L 501.5200, L501.9520, L503.7505, L100.0100, L500.2500 #### [facility] [address] [place], [address] Urea nitrogen [Mass/Vol] 18 mg/dL Normal 4-19 [facility] Comment on above: Performed By: #### L 501.5200, L501.9520, L503.7505, L100.0100, L500.2500 #### [facility] [address] [place], [address] Basophil percentageOrdered B y: Karlie Johnson on 04-26-2025 Basophils/100 WBC (Bld) 0.7 % 0-[address] [facility] CBC W/Diff, Automatedon Absolute Lymph 1.90 X10 3/uL Normal 0.83-4.51 [facility] Comment on above: Performed By: #### L 501.5200, L501.9520, L503.7505, L100.0100, L500.2500 #### [facility] [address] [place], [address] Absolute Neut 7.6 X10 3/uL Normal 2.0-7.7 [facility] Comment on above: Performed By: #### L 501.5200, L501.9520, L503.7505, L100.0100, L500.2500 #### [facility] [address] [place], [address] Basophils/100 WBC (Bld) 0.7 % Normal 0-[address] [facility] Comment on above: Performed By: #### L 501.5200, L501.9520, L503.7505, L100.0100, L500.2500 #### [facility] [address] [place], [address] Eosinophils/100 WBC (Bld) 2.2 % Normal 0-5 [facility] Comment on above: Performed By: #### L 501.5200, L501.9520, L503.7505, L100.0100, L500.2500 #### [facility] [address] [place], [address] Erythrocyte distribution width (RBC) [Ratio] 12.4 % Normal 11.6-14.6 [facility] Comment on above: Performed By: #### L 501.5200, L501.9520, L503.7505, L100.0100, L500.2500 #### [facility] [address] [place], [address] Hematocrit (Bld) [Volume fraction] 38.2 % Normal 37-47 [facility] Comment on above: Performed By: #### L 501.5200, L501.9520, L503.7505, L100.0100, L500.2500 #### [facility] [address] [place], [address] Hemoglobin (Bld) [Mass/Vol] 12.6 g/dL Normal 12.0-15.0 [facility] Comment on above: Performed By: #### L 501.5200, L501.9520, L503.7505, L100.0100, L500.2500 #### [facility] [address] [place], [address] IG% 0.600 Normal 0.0-0.9 [facility] Comment on above: Result Comment: IG% - Immature Granulocytes (promyelocytes, myelocytes and metamyelocytes) > 1% indicates that a LEFT SHIFT is Present. Performed By: #### L 501.5200, L501.9520, L503.7505, L100.0100, L500.2500 #### [facility] [address] [place], [address] Lymphocytes/100 WBC (Bld) 17.5 % Low 19-41 [facility] Comment on above: Performed By: #### L 501.5200, L501.9520, L503.7505, L100.0100, L500.2500 #### [facility] [address] [place], [address] MCH (RBC) [Entitic mass] 29.9 pg Normal 27.0-32.0 [facility] Comment on above: Performed By: #### L 501.5200, L501.9520, L503.7505, L100.0100, L500.2500 #### [facility] [address] [place], [address] MCHC (RBC) [Mass/Vol] 33.0 g/dL Normal 32-36 [facility] Comment on above: Performed By: #### L 501.5200, L501.9520, L503.7505, L100.0100, L500.2500 #### [facility] [address] [place], [address] MCV (RBC) [Entitic vol] 90.7 fL Normal 81-99 [facility] Comment on above: Performed By: #### L 501.5200, L501.9520, L503.7505, L100.0100, L500.2500 #### [facility] [address] [place], [address] Monocytes/100 WBC (Bld) 9.1 % Normal 0-10 [facility] Comment on above: Performed By: #### L 501.5200, L501.9520, L503.7505, L100.0100, L500.2500 #### [facility] [address] [place], [address] Neutrophils/100 WBC (Bld) 69.9 % Normal 47-70 [facility] Comment on above: Performed By: #### L 501.5200, L501.9520, L503.7505, L100.0100, L500.2500 #### [facility] [address] [place], [address] Nucleated RBC (Bld) [#/Vol] 0 10*3/uL Normal 0-5 [facility] Comment on above: Performed By: #### L 501.5200, L501.9520, L503.7505, L100.0100, L500.2500 #### [facility] [address] [place], [address] Platelet mean volume (Bld) [Entitic vol] 10.0 fL Normal 6.2-12.0 [facility] Comment on above: Performed By: #### L 501.5200, L501.9520, L503.7505, L100.0100, L500.2500 #### [facility] [address] [place], [address] Platelets (Bld) [#/Vol] 521 10*3/uL High 150-450 [facility] Comment on above: Performed By: #### L 501.5200, L501.9520, L503.7505, L100.0100, L500.2500 #### [facility] [address] [place], [address] RBC (Bld) [#/Vol] 4.21 10*6/uL Normal 4.2-5.4 [facility] Comment on above: Performed By: #### L 501.5200, L501.9520, L503.7505, L100.0100, L500.2500 #### [facility] [address] [place], [address] RDW SD 40.5 fl Normal 35.1-43.9 [facility] Comment on above: Performed By: #### L 501.5200, L501.9520, L503.7505, L100.0100, L500.2500 #### [facility] [address] [place], [address] WBC (Bld) [#/Vol] 10.9 10*3/uL Normal 4.4-11.0 [facility] Comment on above: Performed By: #### L 501.5200, L501.9520, L503.7505, L100.0100, L500.2500 #### [facility] [address] [place], [address] Carbon dioxide, total [Moles /volume] in Central venous bloodOrdered By: Karlie Johnson on 04-26-2025 CO2 [Moles/Vol] 26.5 mmol/L 21.0-32.0 [facility] Cardiology Visit Reporton Cardiology Visit Report [facility] 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 Normal [facility] Chloride assayOrdered By: Tarik Johnson on 04-26-2025 Chloride [Moles/Vol] 102 mmol/L 98-108 [facility] Eosinophil percentageOrdered By: Karlie Johnson on 04-26-2025 Eosinophils/100 WBC (Bld) 2.2 % 0-5 [facility] Erythrocyte distribution wid th ratioOrdered By: Karlie Johnson on 04-26-2025 Erythrocyte distribution width (RBC) [Ratio] 12.4 % 11.6-14.6 [facility] Erythrocyte distribution wid th standard deviationOrdered By: Karlie Johnson on 04-26-2025 Erythrocyte distribution width (RBC) [Ratio] 40.5 fl 35.1-43.9 [facility] Glomerular filtration rate ( GFR) estimation/1.73 sq m using serum, plasma, or whole bOrdered By: Karlie Johnson on 04-26-2025 GFR/1.73 sq M.predicted among non-blacks MDRD (S/P/Bld) [Vol rate/Area] 74 mL/min/{1.73_m2} >60 [facility] Comment on above: mL/min/1.73m2 CKD-EP I Creatinine Equation (2020) Hematocrit Auto (Bld) [Volum e fraction]Ordered By: Karlie Johnson on 04-26-2025 Hematocrit (Bld) [Volume fraction] 38.2 % 37-47 [facility] Hemoglobin measurementOrdere d By: Karlie Johnson on 04-26-2025 Hemoglobin (Bld) [Mass/Vol] 12.6 g/dL 12.0-15.0 [facility] Immature granulocytes/100 WB C Auto (Bld)Ordered By: Karlie Johnson on 04-26-2025 Immature granulocytes/100 WBC (Bld) 0.600 % 0.0-0.9 [facility] Comment on above: IG% - Immature Granu locytes (promyelocytes, myelocytes and metamyelocytes) > 1% indicates that a LEFT SHIFT is Present. Iron measurement (mass/mass) Ordered By: Yennifer Johnson on 04-26-2025 Iron (Unsp spec) [Mass/Mass] 65 ug/dL 50-170 [facility] L503.7505on 04-26-2025 proBNP < 36 Normal <=900 [facility] Comment on above: Result Comment: Hear t Failure Unlikely: < 300 pg/mL Heart Failure Likely < 50 Years: > 450 pg/mL 50-75 Years: > 900 pg/mL >75 Years: > 1800 pg/mL Performed By: #### L 501.4060, L501.9520, L503.7505, L100.0100, L500.2500 #### [facility] [address] [place], [address] MCV (mean corpuscular volume ) determinationOrdered By: Karlie Johnson on 04-26-2025 MCV (RBC) [Entitic vol] 90.7 fL 81-[address] [facility] Magnesiumon 04-26-2025 Magnesium [Mass/Vol] 2.5 mg/dL High 1.5-2.2 [facility] Comment on above: Performed By: #### L 501.5200, L501.9520, L503.7505, L100.0100, L500.2500 #### [facility] [address] [place], [place], [address] Magnesium measurement (mass/ volume)Ordered By: Karlie Johnson on 04-26-2025 Magnesium (Unsp spec) [Mass/Vol] 2.5 mg/dL High 1.5-2.2 [facility] Mean corpuscular hemoglobin (MCH) determinationOrdered By: Karlie Johnson on 04-26-2025 MCH (RBC) [Entitic mass] 29.9 pg 27.0-32.0 [facility] Mean corpuscular hemoglobin concentration (MCHC) determinationOrdered By: Karlie Johnson on 04-26-2025 MCHC (RBC) [Mass/Vol] 33.0 g/dL 32-36 [facility] Mean platelet volume determi nationOrdered By: Karlie Johnson on 04-26-2025 Platelet mean volume (Bld) [Entitic vol] 10.0 fL 6.2-12.0 [facility] Monocyte percentageOrdered B y: Karlie Johnson on 04-26-2025 Monocytes/100 WBC (Bld) 9.1 % 0-[address] [facility] Natriuretic peptide.B prohor franklyn N-Terminal [Mass/volume] in Serum or PlasmaOrdered By: Karlie Johnson on 04-26-2025 Natriuretic peptide.B prohormone N-Terminal [Mass/Vol] < 36 pg/mL <900 [facility] Comment on above: Heart Failure Unlike ly: < 300 pg/mLHeart Failure Likely< 50 Years: > 450 pg/mL50-75 Years: > 900 pg/mL>75 Years: > 1800 pg/mL Neutrophil percentageOrdered By: Karlie Johnson on 04-26-2025 Neutrophils/100 WBC (Bld) 69.9 % 47-70 [facility] No Panel InformationOrdered By: Yennifer Johnson on 04-26-2025 Unsaturated Iron Binding Capacity 356 ug/dL 228-428 [facility] Nucleated red blood cell per centageOrdered By: Karlie Johnson on 04-26-2025 Nucleated RBC/100 WBC (Bld) [Ratio] 0 % 0-5 [facility] Platelet countOrdered By: Tarik Johnson on 04-26-2025 Platelets (Bld) [#/Vol] 521 10*3/uL High 150-450 [facility] Potassium measurement (mass/ volume)Ordered By: Karlie Johnson on 04-26-2025 Potassium (Unsp spec) [Mass/Vol] 3.7 mmol/L 3.3-5.1 [facility] RBC Auto (Bld) [#/Vol]Ordere d By: Karlie Johnson on 04-26-2025 RBC (Bld) [#/Vol] 4.21 10*6/uL 4.2-5.4 [facility] Serum creatinine measurement (mass/volume)Ordered By: Karlie Johnson on 04-26-2025 Creatinine [Mass/Vol] 0.87 mg/dL 0.70-1.20 [facility] Serum glucose measurement (m ass/volume)Ordered By: Karlie Johnson on 04-26-2025 Glucose [Mass/Vol] 97 mg/dL 70-99 [facility] Serum or plasma calcium kyree urement (mass/volume)Ordered By: Karlie Johnson on 04-26-2025 Calcium [Mass/Vol] 9.8 mg/dL 7.6-11.0 [facility] Serum or plasma ferritin terri surement (mass/volume)Ordered By: Yennifer Johnson on 04-26-2025 Ferritin [Mass/Vol] 69 ng/mL 22-378 [facility] Serum or plasma iron saturat ion measurement (mass fraction)Ordered By: Yennifer Johnson on 04-26-2025 Iron saturation [Mass fraction] 15.0 % 13-59 [facility] Serum or plasma urea nitroge n measurement (mass/volume)Ordered By: Karlie Johnson on 04-26-2025 Urea nitrogen [Mass/Vol] 18 mg/dL 4-19 [facility] Sodium levelOrdered By: Adali Johnson on 04-26-2025 Sodium [Moles/Vol] 139 mmol/L 133-145 [facility] TSH DL <= 0.005 mIU/L QnOrde red By: Karlie Johnson on 04-26-2025 TSH Qn 1.970 uIU/mL 0.300-4.200 [facility] Thyroid Stim Hormone (TSH)on 04-26-2025 TSH 1.970 uIU/mL Normal 0.300-4.200 [facility] Comment on above: Performed By: #### L 501.5200, L501.9520, L503.7505, L100.0100, L500.2500 #### [facility] [address] [place], [address] White blood cell (WBC) count Ordered By: Karlie Johnson on 04-26-2025 WBC (Bld) [#/Vol] 10.9 10*3/uL 4.4-11.0 [facility] Bilirubin directOrdered By: Larry Rodriguez on 03-24-2025 Bilirubin.direct [Mass/Vol] 0.14 mg/dL 0.00-0.30 [facility] Bilirubin, totalOrdered By: Larry Rodriguez on 03-24-2025 Bilirubin [Mass/Vol] 0.32 mg/dL 0.00-1.30 [facility] Calculated very low density lipoprotein (VLDL) cholesterol measurementOrdered By: Larry Rodriguez on 03-24-2025 Calculated very low density lipoprotein (VLDL) cholesterol measurement 22 mg/dL 5-40 [facility] LDL calc ser/plasOrdered By: Larry Rodriguez on 03-24-2025 Cholesterol in LDL [Mass/Vol] 98 mg/dL [facility] Comment on above: Qnsgyudavy=889-283 m g/dL & Higher Gqkt=792 mg/dL or greater Laboratory - Chemistry and C hemistry - challengeOrdered By: Larry Rodriguez on 03-24-2025 AST [Catalytic activity/Vol] 18 U/L <32 [facility] Lipid Profileon 03-24-2025 CHOL:HDL 3.42 Normal [facility] Comment on above: Performed By: #### L 500.3400, L500.4100 #### [facility] [address] [place], [address] Cholesterol [Mass/Vol] 170 mg/dL Normal <=200 [facility] Comment on above: Result Comment: Chol esterol level, Desirable <200 mg/dL Borderline high cholesterol 200-239 mg/dL High cholesterol >=240 mg/dL Recommendations of the NCEP Adult Treatment Panel for the following risk-cutoff thresholds for the [place] population. Performed By: #### L 500.3400, L500.4100 #### [facility] [address] [place], [address] Cholesterol in HDL [Mass/Vol] 50 mg/dL Normal [facility] Comment on above: Result Comment: Alexandra onal Cholesterol Education Program (NCEP) guidelines: <40 mg/dL: Low HDL-cholesterol (major risk factor for CHD) >= 60 mg/dL: High HDL-cholesterol (negative risk factor for CHD) HDL-cholesterol is affected by a number of factors, e.g. smoking, exercise, hormones, sex and age. Performed By: #### L 500.3400, L500.4100 #### [facility] [address] [place], [address] Cholesterol in LDL [Mass/Vol] 98 mg/dL Normal [facility] Comment on above: Result Comment: Bord homkph=131-865 mg/dL Higher Accx=405 mg/dL or greater Performed By: #### L 500.3400, L500.4100 #### [facility] [address] [place], [address] Cholesterol in VLDL [Mass/Vol] 22 mg/dL Normal 5-40 [facility] Comment on above: Performed By: #### L 500.3400, L500.4100 #### [facility] [address] [place], [address] Triglyceride [Mass/Vol] 111 mg/dL Normal [facility] Comment on above: Result Comment: The drugs N-Acetylcysteine and Metamizole may falsely depress this assay. Normal range: <150 mg/dL Borderline High: 150-199 mg/dL High: 200-499 mg/dL Very High: >500 mg/dL Performed By: #### L 500.3400, L500.4100 #### [facility] [address] [place], [address] Liver Profileon 03-24-2025 Albumin [Mass/Vol] 4.5 g/dL Normal 3.4-4.8 [facility] Comment on above: Performed By: #### L 500.3400, L500.4100 #### [facility] [address] [place], [address] ALK PHOS 79 U/L Normal 35-104 [facility] Comment on above: Performed By: #### L 500.3400, L500.4100 #### [facility] [address] [place], [address] ALT [Catalytic activity/Vol] 16 U/L Normal <=34 [facility] Comment on above: Performed By: #### L 500.3400, L500.4100 #### [facility] [address] [place], [address] AST [Catalytic activity/Vol] 18 U/L Normal <=31 [facility] Comment on above: Performed By: #### L 500.3400, L500.4100 #### [facility] [address] [place], [address] Bilirubin [Mass/Vol] 0.32 mg/dL Normal 0.00-1.30 [facility] Comment on above: Performed By: #### L 500.3400, L500.4100 #### [facility] [address] [place], [address] Bilirubin.direct [Mass/Vol] 0.14 mg/dL Normal 0.00-0.30 [facility] [facility] Comment on above: Performed By: #### L 500.3400, L500.4100 #### [facility] [address] [place], [address] Globulin (S) [Mass/Vol] 2.9 g/dL Normal 2.2-4.[address] [facility] Comment on above: Performed By: #### L 500.3400, L500.4100 #### [facility] [address] [place], [address] T PROT 7.4 g/dL Normal 5.9-8.4 [facility] Comment on above: Performed By: #### L 500.3400, L500.4100 #### [facility] [address] [place], [address] Screening total cholesterol/ high density lipoprotein (HDL) cholesterol ratioOrdered By: Larry Rodriguez on 03-24-2025 Cholesterol.total/Jennifer sterol in HDL [Mass ratio] 3.42 {ratio} [facility] Serum globulin measurementOr dered By: Larry Rodriguez on 03-24-2025 Globulin (S) [Mass/Vol] 2.9 g/dL 2.2-4.2 [facility] Serum or plasma alanine castañeda otransferase (ALT) measurementOrdered By: Larry Rodriguez on 03-24-2025 ALT [Catalytic activity/Vol] 16 U/L <35 [facility] Serum or plasma albumin kyree urement (mass/volume)Ordered By: Larry Rodriguez on 03-24-2025 Albumin [Mass/Vol] 4.5 g/dL 3.4-4.8 [facility] Serum or plasma alkaline tevin sphatase measurementOrdered By: Larry Rodriguez on 03-24-2025 ALP [Catalytic activity/Vol] 79 U/L 35-104 [facility] Serum or plasma cholesterol in HDL measurement (mass/volume)Ordered By: Larry Rodriguez on 03-24-2025 Cholesterol in HDL [Mass/Vol] 50 mg/dL >40 [facility] Comment on above: National Cholesterol Education Program (NCEP) guidelines:<40 mg/dL: Low HDL-cholesterol (major risk factor for CHD)>= 60 mg/dL: High HDL-cholesterol (negative risk factor for CHD)HDL-cholesterol is affected by a number of factors, e.g. smoking, exercise, hormones, sex and age. Serum or plasma cholesterol measurement (mass/volume)Ordered By: Larry Rodriguez on 03-24-2025 Cholesterol [Mass/Vol] 170 mg/dL <201 [facility] Comment on above: Cholesterol level, D esirable <200 mg/dLBorderline high cholesterol 200-239 mg/dLHigh cholesterol >=240 mg/dLRecommendations of the NCEP Adult Treatment Panel for the following risk-cutoff thresholds for the [place] population. Total proteinOrdered By: Diallo Rodriguez on 03-24-2025 Protein [Mass/Vol] 7.4 g/dL 5.9-8.4 [facility] Triglycerides measurementOrd ered By: Larry Rodriguez on 03-24-2025 Triglyceride [Mass/Vol] 111 mg/dL <[address] [facility] Comment on above: The drugs N-Acetylcy steine and Metamizole may falsely depress this assay. Normal range: <150 mg/dLBorderline High: 150-199 mg/dLHigh: 200-499 mg/dLVery High: >500 mg/dL Dexa Bone Density Studyon Dexa Bone Density Study [facility] Imaging Services [address] [place] [address] [id number] Dexa Bone Density Study MR#: [id number] Acct: [id number] Name: LEEANN CROCKETT Rep #: [id number] : 1960 F 64 From: Deandre Ricks MD PCP: Dr. Yennifer Johnson MD Status: [facility] Study: Dexa Bone Density Study Date of Exam: 10/24/24 Exam# [id number] Ordering Dr: Yennifer Johnson MD [id number] STUDY: DUAL ENERGY X-RAY ABSORPTIOMETRY / DXA [...] EST , CC: Dr. Yennifer Johnson MD Sports Physiologist: Signed Normal [facility] SCRN MAMM (CAD)W/DARRELL BILATo n 10-24-2024 SCRN MAMM (CAD)W/DARRELL BILAT [facility] Imaging Services [address] [place] [address] SCRN MAMM (CAD)W/DARRELL BILAT MR#: [id number] Acct: [id number] Name: LEEANN CROCKETT Rep #: [id number] : 1960 F 64 From: Deandre Ricks MD PCP: Dr. Yennifer Johnson MD Status: REG [facility] Study: SCRN MAMM (CAD)W/DARRELL BILAT Date of Exam: 09/26 11/17 Exam# [id number] Ordering Dr: Yennifer Johnson [place] [id number] MAMMOGRAPHY - BILATERAL SCREENING 3-D TOMOSYNTHESIS REASON [...] EST , CC: Dr. Yennifer Johnson MD Sports Physiologist: Signed Normal [facility] Lipid Profileon 10-21-2024 Cholesterol [Mass/Vol] 184 mg/dL Normal 200 [facility] Comment on above: Result Comment: <200 mg/dL Desirable 200-240 mg/dL Borderline >240 mg/dL High Risk Performed By: #### L 500.4100, L500.3400 #### [facility] [address] [facility] [address] Cholesterol in HDL [Mass/Vol] 71 mg/dL Normal [facility] Comment on above: Result Comment: The drugs N-Acetylcysteine and Metamizole may falsely depress this assay. Reference Range HDL <40 mg/dL Low HDL Cholesterol HDL >or= 60 mg/dL High HDL Cholesterol Performed By: #### L 500.4100, L500.3400 #### [facility] [address] [place], [address] Cholesterol in LDL [Mass/Vol] 102 mg/dL Normal 0-130 [facility] Comment on above: Performed By: #### L 500.4100, L500.3400 #### [facility] [address] [place], [address] Cholesterol in VLDL [Mass/Vol] 11 mg/dL Normal 5-40 [facility] Comment on above: Performed By: #### L 500.4100, L500.3400 #### [facility] [address] [place], [address] Triglyceride [Mass/Vol] 55 mg/dL Normal [facility] Comment on above: Result Comment: The drugs N-Acetylcysteine and Metamizole may falsely depress this assay. Serum Triglycerides Reference Interval Normal <150 mg/dL Borderline high 150 - 199 mg/dL High 200 - 499 mg/dL Very High > or = 500 mg/dL Performed By: #### L 500.4100, L500.3400 #### [facility] [address] [place], [address] Liver Profileon 10-21-2024 Albumin [Mass/Vol] 3.7 g/dL Normal 3.2-5.0 [facility] Comment on above: Performed By: #### L 500.4100, L500.3400 #### [facility] [address] [place], [address] ALK P 90 U/L Normal 45-117 [facility] Comment on above: Performed By: #### L 500.4100, L500.3400 #### [facility] [address] [place], [address] ALT [Catalytic activity/Vol] 17 U/L Normal 13-56 [facility] Comment on above: Performed By: #### L 500.4100, L500.3400 #### [facility] [address] [place], [address] AST [Catalytic activity/Vol] 14 U/L Low 15-37 [facility] Comment on above: Performed By: #### L 500.4100, L500.3400 #### [facility] [address] [place], [address] Bilirubin [Mass/Vol] 0.40 mg/dL Normal 0.20-1.00 [facility] Comment on above: Result Comment: For patients on eltrombopag therapy, use of Dimension [place] TBIL is not recommended. Performed By: #### L 500.4100, L500.3400 #### [facility] [address] [place], [address] Bilirubin.direct [Mass/Vol] 0.14 mg/dL Normal 0.00-0.30 [facility] Comment on above: Performed By: #### L 500.4100, L500.3400 #### [facility] [address] [place], [address] Globulin (S) [Mass/Vol] 4.0 g/dL Normal 2.2-4.[address] [facility] Comment on above: Performed By: #### L 500.4100, L500.3400 #### [facility] [address] [place], [address] T PROT 7.7 g/dL Normal 6.4-8.2 [facility] Comment on above: Performed By: #### L 500.4100, L500.3400 #### [facility] [address] [place], [address] Bacteria identifiedon 2023 Bacteria identified Cx Nom (U) Test: Urine Culture Specimen Source: Clean Catch/Voided Specimen Type: Urine Specimen Date: 04/04/2024 1057 Result Date: 04/05/2024 1613 Result Status: Final result Abnormal: No Resulting Lab: [facility] [address] [place], [place] [id number] CULTURE No growth Normal [facility] Comment on above: Performed By: #### 6 30-4 #### HEATHER Grant ([id number]) [facility] ([facility]) [address] [place] [address] Basic metabolic 2000 panelon 04-04-2024 Anion gap [Moles/Vol] 10 mmol/L NINF - 19 mmol/L [facility] Calcium [Mass/Vol] 8.7 mg/dL 8.5 - 10. 4 mg/dL [facility] Chloride [Moles/Vol] 105 mmol/L 97 - 10 7 mmol/L [facility] CO2 [Moles/Vol] 24 mmol/L 24 - 31 mmol/L [facility] Creatinine [Mass/Vol] 0.70 mg/dL 0.40 - 1.60 mg/dL [facility] eGFR - PINF [facility] Comment on above: Calculations of perla mated GFR are performed using the 2020 CKD-EPI Study Refit equation without the race variable for the IDMS-Traceable creatinine methods. https://jasn.asnjournals.org/content//ASN.2020 920326 Glucose [Mass/Vol] 151 mg/dL High 65 - 99 mg/dL [facility] Interpretation and review of laboratory results Abnormal [facility] Potassium [Moles/Vol] 4.1 mmol/L 3.4 - 5.1 mmol/L [facility] Sodium [Moles/Vol] 139 mmol/L 133 - 145 mmol/L [facility] Urea nitrogen [Mass/Vol] 18 mg/dL 8 - 25 mg/dL [facility] Anion gap [Moles/Vol] 10 mmol/L Normal <=19 [facility] Comment on above: Performed By: #### 2 4321-2 #### RONAL Alvarez ([id number]) [facility] () [address] [place] [address] Calcium [Mass/Vol] 8.7 mg/dL Normal 8.5-10.4 [facility] Comment on above: Performed By: #### 2 4321-2 #### RONAL Alvarez ([id number]) [facility] () [address] [place] [address] Chloride [Moles/Vol] 105 mmol/L Normal 97-107 [facility] Comment on above: Performed By: #### 2 4321-2 #### RONAL Alvarez ([id number]) [facility] () [address] [place] [address] CO2 [Moles/Vol] 24 mmol/L Normal 24-31 [facility] Comment on above: Performed By: #### 2 4321-2 #### RONAL Alvarez ([id number]) [facility] () [address] [place] [address] Creatinine [Mass/Vol] 0.70 mg/dL Normal 0.40-1.60 [facility] Comment on above: Performed By: #### 2 4321-2 #### RONAL Alvarez ([id number]) [facility] () [address] [place] [address] GFR/1.73 sq M.predicted MDRD (S/P/Bld) [Vol rate/Area] mL/min/{1.73_m2} Normal >60 [facility] Comment on above: Result Comment: Calc ulations of estimated GFR are performed using the 2020 CKD-EPI Study Refit equation without the race variable for the IDMS-Traceable creatinine methods. https://jasn.asnjournals.org/content/early//ASN.2020 639310 Performed By: #### 2 4321-2 #### RONAL Alvarez ([id number]) [facility] () [address] [place] [address] Glucose [Mass/Vol] 151 mg/dL High 65-99 [facility] Comment on above: Performed By: #### 2 4321-2 #### RONAL Alvarez ([id number]) [facility] () [address] [place] [address] Potassium [Moles/Vol] 4.1 mmol/L Normal 3.4-5.1 [facility] Comment on above: Performed By: #### 2 4321-2 #### RONAL Alvarez ([id number]) [facility] () [address] [place] [address] Sodium [Moles/Vol] 139 mmol/L Normal 133-145 [facility] Comment on above: Performed By: #### 2 4321-2 #### RONAL Alvarez (73381) [facility] () [address] [place] [address] Urea nitrogen [Mass/Vol] 18 mg/dL Normal 8-25 [facility] Comment on above: Performed By: #### 2 4321-2 #### RONAL Alvarez ([id number]) [facility] () [address] [place] [address] CBC panel Auto (Bld)on 04-04 Erythrocyte distribution width (RBC) [Ratio] 12.0 % 11.5 - 14.5 % [facility] Hematocrit (Bld) [Volume fraction] 30.1 % Low 36.0 - 46.0 % [facility] Hemoglobin (Bld) [Mass/Vol] 10.5 g/dL Low 12.0 - 16.0 g/dL [facility] Interpretation and review of laboratory results Abnormal [facility] MCH (RBC) [Entitic mass] 29.9 pg 26.0 - 34.0 pg [facility] MCHC (RBC) [Mass/Vol] 34.9 g/dL 32.0 - 36.0 g/dL [facility] MCV (RBC) [Entitic vol] 86 fL 80 - 100 fL [facility] Nucleated RBC/100 WBC (Bld) [Ratio] 0.0 % [facility] Platelets (Bld) [#/Vol] 360 10*3/uL [facility] RBC (Bld) [#/Vol] 3.51 10*6/uL Low [facility] WBC (Bld) [#/Vol] 21.9 10*3/uL High [facility] Erythrocyte distribution width (RBC) [Ratio] 12.0 % Normal 11.5-14.5 [facility] Comment on above: Performed By: #### 5 8410-2 #### RONAL Alvarez ([id number]) [facility] () [address] [place] [address] Hematocrit (Bld) [Volume fraction] 30.1 % Low 36.0-46.0 [facility] Comment on above: Performed By: #### 5 8410-2 #### RONAL Alvarez (66525) [facility] () [address] [place] [address] Hemoglobin (Bld) [Mass/Vol] 10.5 g/dL Low 12.0-16.0 [facility] Comment on above: Performed By: #### 5 8410-2 #### RONAL Alvarez (52833) [facility] () [address] [place] [address] MCH (RBC) [Entitic mass] 29.9 pg Normal 26.0-34.0 [facility] Comment on above: Performed By: #### 5 8410-2 #### RONAL Alvarez (80162) [facility] () [address] [place] [address] MCHC (RBC) [Mass/Vol] 34.9 g/dL Normal 32.0-36.0 [facility] Comment on above: Performed By: #### 5 8410-2 #### RONAL Alvarez (40641) [facility] () [address] [place] [address] MCV (RBC) [Entitic vol] 86 fL Normal 80-100 [facility] Comment on above: Performed By: #### 5 8410-2 #### RONAL Alvarez ([id number]) [facility] () [address] [place] [address] Nucleated RBC/100 WBC (Bld) [Ratio] 0.0 /100 WBCs Normal 0.0-0.0 [facility] Comment on above: Performed By: #### 5 8410-2 #### RONAL Alvarez (73584) [facility] () [address] [place] [address] Platelets (Bld) [#/Vol] 360 x10*3/uL Normal 150-450 [facility] Comment on above: Performed By: #### 5 8410-2 #### RONAL Alvarez ([id number]) [facility] () [address] [place] [address] RBC (Bld) [#/Vol] 3.51 x10*6/uL Low 4.00-5.20 [facility] Comment on above: Performed By: #### 5 8410-2 #### RONAL Alvarez ([id number]) [facility] () [address] [place] [address] WBC (Bld) [#/Vol] 21.9 x10*3/uL High 4.4-11.3 [facility] Comment on above: Performed By: #### 5 8410-2 #### RONAL Alvarez (13702) [facility] () [address] [place] [address] No Panel Informationon 04-04 Interpretation and review of laboratory results Abnormal [facility] Urinalysis complete W Reflex Culture panel (U)on 04-04-2024 Appearance (U) Clear Clear [facility] Bilirubin (U) [Mass/Vol] Negative NEGATIVE [facility] Color (U) Light-Yellow Light-Yello w, Yellow, Dark-Yellow [facility] Glucose Auto test strip (U) [Mass/Vol] Normal Normal mg/dL [facility] Ketones (U) [Mass/Vol] Negative NEGAT AMANDA mg/dL [facility] Leukocyte esterase Auto test strip Ql (U) 75 Angi/ L Abnormal NEGATIVE [facility] Nitrite Auto test strip Ql (U) Negative NEGATIVE [facility] pH (U) 5.5 [pH] 5.0, 5.5, 6.0, 6.5, 7.0, 7.5, 8.0 [facility] Protein (U) [Mass/Vol] Negative NEGAT AMANDA, 10 (TRACE), 20 (TRACE) mg/dL [facility] RBC (U) [#/Vol] 0.1 (1+) Abnormal NEGATIVE [facility] Specific gravity (U) [Rel density] 1.011 1.005 - 1.035 [facility] Urobilinogen (U) [Mass/Vol] Normal Normal mg/dL [facility] Appearance (U) Clear Normal Clear [facility] Comment on above: Performed By: #### 5 8077-9 #### RONAL Alvarez ([id number]) [facility] () [address] [place] [address] Bilirubin (U) [Mass/Vol] Negative Normal NEGATIVE [facility] Comment on above: Performed By: #### 5 8077-9 #### RONAL Alvarez (48207) [facility] () [address] [place] [address] Color (U) Light-Yellow Normal Light-Yello w, Yellow, Dark-Yellow [facility] Comment on above: Performed By: #### 5 8077-9 #### RONAL Alvarez (80328) [facility] () [address] [place] [address] Glucose Auto test strip (U) [Mass/Vol] Normal Normal Normal [facility] Comment on above: Performed By: #### 5 8077-9 #### RONAL Alvarez (44283) [facility] () [address] [place] [address] Ketones (U) [Mass/Vol] Negative Normal [facility] on above: Performed By: #### 5 8077-9 #### RONAL Alvarez (59742) [facility] () [address] [place] [address] Leukocyte esterase Auto test strip Ql (U) 75 Angi/???L Abnormal NEGATIVE [facility] Comment on above: Performed By: #### 5 8077-9 #### RONAL Alvarez (25989) [facility] () [address] [place] [address] Nitrite Auto test strip Ql (U) Negative Normal NEGATIVE [facility] Comment on above: Performed By: #### 5 8077-9 #### RONAL Alvarez (38272) [facility] () [address] [place] [address] pH (U) 5.5 [pH] Normal 5.0, 5.5, 6.0, 6.5, 7.0, 7.5, 8.0 [facility] Comment on above: Performed By: #### 5 8077-9 #### RONAL Alvarez (85073) [facility] () [address] [place] [address] Protein (U) [Mass/Vol] Negative Normal NEGAT AMANDA, 10 (TRACE), 20 (TRACE) [facility] Comment on above: Performed By: #### 5 8077-9 #### RONAL Alvarez (67626) [facility] () [address] [place] [address] RBC (U) [#/Vol] 0.1 (1+) Abnormal NEGATIVE [facility] Comment on above: Performed By: #### 5 8077-9 #### RONAL Alvarez (38126) [facility] () [address] [place] [address] Specific gravity (U) [Rel density] 1.011 Normal 1.005-1.035 [facility] Comment on above: Performed By: #### 5 8077-9 #### RONAL Alvarez (82649) [facility] () [address] [place] [address] Urobilinogen (U) [Mass/Vol] Normal Normal Normal [facility] Comment on above: Performed By: #### 5 8077-9 #### RONAL Alvarez (99812) [facility] () [address] [place] [address] Urinalysis microscopic panel Auto Ql (U)on 04-04-2024 Epithelial cells.squamous Auto (Urine sed) [#/Area] 1-9 (SPARSE) Reference range not established . /HPF [facility] Mucus Auto (Urine sed) [#/Area] FEW Reference range not established . /LPF [facility] RBC Auto (Urine sed) [#/Area] 11-20 Abnormal NONE, 1-2, 3-5 /HPF [facility] WBC Auto (Urine sed) [#/Area] 6-10 Abnormal 1-5, NONE /HPF [facility] Epithelial cells.squamous Auto (Urine sed) [#/Area] 1-9 (SPARSE) Normal Reference range not established . [facility] Comment on above: Performed By: #### 5 3315-8 #### RONAL LOCKTIE T (22249) [facility] () [address] [place] [address] Mucus Auto (Urine sed) [#/Area] FEW Normal Reference range not established . [facility] Comment on above: Performed By: #### 5 3315-8 #### RONAL LOCKTIE T (96377) [facility] () [address] [place] [address] RBC Auto (Urine sed) [#/Area] 11-20 Abnormal NONE, 1-2, 3-5 [facility] Comment on above: Performed By: #### 5 7715-8 #### RONAL LOCKTIE T (09102) [facility] () [address] [place] [address] WBC Auto (Urine sed) [#/Area] 6-10 Abnormal 1-5, NONE [facility] Comment on above: Performed By: #### 5 3315-8 #### RONAL LOCKTIE T (37709) [facility] () [address] [place] [address] XR CHEST 1 VIEWon 04-04-2024 XR CHEST 1 VIEW Interpreted By: Rafael Ibanez, STUDY: XR CHEST 1 VIEW; ; 04/04/2024 8:59 am INDICATION: Signs/Symptoms:leukocy tosis. COMPARISON: None. ACCESSION NUMBER(S): [id number] ORDERING CLINICIAN: KESHAWN STEVENSON TECHNIQUE: Single AP view chest FINDINGS: Cardiac silhouette is within normal limits. No infiltrate or effusion identified. Visualized osseous structures demonstrate glenohumeral joint osteoarthritis bilaterally. IMPRESSION: 1. No acute process MACRO: None Signed by: Rafael Shepard 04/04/2024 9:46 AM Dictation workstation: [id number] [facility] XR Chest Single viewon 04-04 1. No acute process MACRO: None Signed by: Rafael Shepard 04/04/2024 9:46 AM Dictation workstation: [id number] [facility] Interpreted By: Rafael Ibanez, STUDY: XR CHEST 1 VIEW; ; 04/04/2024 8:59 am INDICATION: Signs/Symptoms:leukocy tosis. COMPARISON: None. ACCESSION NUMBER(S): [id number] ORDERING CLINICIAN: KESHAWN STEVENSON TECHNIQUE: Single AP view chest FINDINGS: Cardiac silhouette is within normal limits. No infiltrate or effusion identified. Visualized osseous structures demonstrate glenohumeral joint osteoarthritis bilaterally. [facility] Rafael Shepard MD - 04/04/2024 Interpreted By: Rafael Shepard, STUDY: XR CHEST 1 VIEW; ; 04/04/2024 8:59 am INDICATION: Signs/Symptoms:leukocy tosis. COMPARISON: None. ACCESSION NUMBER(S): [id number] ORDERING CLINICIAN: KESHAWN STEVENSON TECHNIQUE: Single AP view chest FINDINGS: Cardiac silhouette is within normal limits. No infiltrate or effusion identified. Visualized osseous structures demonstrate glenohumeral joint osteoarthritis bilaterally. IMPRESSION: 1. No acute process MACRO: None Signed by: Rafael Shepard 04/04/2024 9:46 AM Dictation workstation: [id number] [facility] Work Phone: Radiology Study observation (narrative) [facility] Work Phone: XR Chest Single viewOrdered By: Rafael Shepard on 04-04-2024 [facility] Work Phone: XR KNEE LEFT 1-2 VIEWSon XR KNEE LEFT 1-2 VIEWS Interpreted By: Herman Marquez, STUDY: XR KNEE LEFT 1-2 VIEWS; 04/03/2024 10:27 am INDICATION: Signs/Symptoms:Post-op knee. COMPARISON: None. ACCESSION NUMBER(S): [id number] ORDERING CLINICIAN: TIN WEST FINDINGS: Components of left knee arthroplasty are in anatomic alignment. Postoperative soft tissue gas. IMPRESSION: New left knee arthroplasty in anatomic alignment. MACRO: None Signed by: Herman Marquez 04/03/2024 11:33 AM Dictation workstation: [id number] [facility] Comment on above: Order Comment: AP an d Lateral view of (left) postoperative knee in PACU. XR Knee - left 1 or 2 Viewso n 04-03-2024 New left knee arthroplasty in anatomic alignment. MACRO: None Signed by: Herman Marquez 04/03/2024 11:33 AM Dictation workstation: [id number] [facility] Interpreted By: Herman Marquez, STUDY: XR KNEE LEFT 1-2 VIEWS; 04/03/2024 10:27 am INDICATION: Signs/Symptoms:Post-op knee. COMPARISON: None. ACCESSION NUMBER(S): [id number] ORDERING CLINICIAN: TIN WEST FINDINGS: Components of left knee arthroplasty are in anatomic alignment. Postoperative soft tissue gas. [facility] Herman Marquez MD - 04/03/2024 Interpreted By: Herman Marquez, STUDY: XR KNEE LEFT 1-2 VIEWS; 04/03/2024 10:27 am INDICATION: Signs/Symptoms:Post-op knee. COMPARISON: None. ACCESSION NUMBER(S): [id number] ORDERING CLINICIAN: TIN WEST FINDINGS: Components of left knee arthroplasty are in anatomic alignment. Postoperative soft tissue gas. IMPRESSION: New left knee arthroplasty in anatomic alignment. MACRO: None Signed by: Hemran Marquez 04/03/2024 11:33 AM Dictation workstation: [id number] [facility] Work Phone: Radiology Study observation (narrative) [facility] Work Phone: XR Knee - left 1 or 2 ViewsO rdered By: Herman Marquez on 04-03-2024 [facility] Work Phone: Basic metabolic 2000 panelon 03-21-2024 Anion gap [Moles/Vol] 15 mmol/L Normal <=19 [facility] Comment on above: Performed By: #### 2 4321-2 #### RONAL Alvarez ([id number]) [facility] () [address] [place] [address] Calcium [Mass/Vol] 10.2 mg/dL Normal 8.5-10.4 [facility] Comment on above: Performed By: #### 2 4321-2 #### RONAL Alvarez ([id number]) [facility] () [address] [place] [address] Chloride [Moles/Vol] 103 mmol/L Normal 97-107 [facility] Comment on above: Performed By: #### 2 4321-2 #### RONAL Alvarez ([id number]) [facility] () [address] [place] [address] CO2 [Moles/Vol] 24 mmol/L Normal 24-31 [facility] Comment on above: Performed By: #### 2 4321-2 #### RONAL Alvarez ([id number]) [facility] () [address] [place] [address] Creatinine [Mass/Vol] 0.90 mg/dL Normal 0.40-1.60 [facility] Comment on above: Performed By: #### 2 4321-2 #### RONAL FISHER T ([id number]) [facility] () [address] [place] [address] Glomerular filtration rate/1.73 sq M.predicted 72 mL/min/1.73m*2 Normal >60 [facility] Comment on above: Result Comment: Calc ulations of estimated GFR are performed using the 2020 CKD-EPI Study Refit equation without the race variable for the IDMS-Traceable creatinine methods. https://jasn.asnjournals.org/content/early/ASN 025493 Performed By: #### 2 4321-2 #### RONAL Alvarez ([id number]) [facility] () [address] [place] [address] Glucose [Mass/Vol] 84 mg/dL Normal 65-99 [facility] Comment on above: Performed By: #### 2 4321-2 #### RONAL Alvarez ([id number]) [facility] () [address] [place] [address] Potassium [Moles/Vol] 4.5 mmol/L Normal 3.4-5.1 [facility] Comment on above: Performed By: #### 2 4321-2 #### RONAL Alvarez ([id number]) [facility] () [address] [place] [address] Sodium [Moles/Vol] 142 mmol/L Normal 133-145 [facility] Comment on above: Performed By: #### 2 4321-2 #### RONAL Alvarez ([id number]) [facility] () [address] [place] [address] Urea nitrogen [Mass/Vol] 18 mg/dL Normal 8-25 [facility] Comment on above: Performed By: #### 2 4321-2 #### RONAL Alvarez ([id number]) [facility] () [address] [place] [address] CBC W Auto Differential pane l (Bld)on 03-21-2024 Basophils (Bld) [#/Vol] 0.07 x10*3/uL Normal 0.00-0.10 [facility] Comment on above: Performed By: #### 5 7021-8 #### RONAL Alvarez ([id number]) [facility] () [address] [place] [address] Basophils/100 WBC (Bld) 0.7 % Normal 0.0-2.0 [facility] Comment on above: Performed By: #### 5 7021-8 #### RONAL Alvarez ([id number]) [facility] () [address] [place] [address] Eosinophils (Bld) [#/Vol] 0.12 x10*3/uL Normal 0.00-0.70 [facility] Comment on above: Performed By: #### 5 7021-8 #### RONAL Alvarez ([id number]) [facility] () [address] [place] [address] Eosinophils/100 WBC (Bld) 1.2 % Normal 0.0-6.0 [facility] Comment on above: Performed By: #### 5 7021-8 #### RONAL Alvarez ([id number]) [facility] () [address] [place] [address] Erythrocyte distribution width (RBC) [Ratio] 12.3 % Normal 11.5-14.5 [facility] Comment on above: Performed By: #### 5 7021-8 #### RONAL Alvarez ([id number]) [facility] () [address] [place] [address] Hematocrit (Bld) [Volume fraction] 41.4 % Normal 36.0-46.0 [facility] Comment on above: Performed By: #### 5 7021-8 #### RONAL Alvarez ([id number]) [facility] () [address] [place] [address] Hemoglobin (Bld) [Mass/Vol] 13.5 g/dL Normal 12.0-16.0 [facility] Comment on above: Performed By: #### 5 7021-8 #### RONAL Alvarez ([id number]) [facility] () [address] [place] [address] Immature granulocytes (Bld) [#/Vol] 0.03 x10*3/uL Normal 0.00-0.70 [facility] Comment on above: Performed By: #### 5 7021-8 #### RONAL Alvarez ([id number]) [facility] () [address] [place] [address] Immature granulocytes/100 WBC (Bld) 0.3 % Normal 0.0-0.9 [facility] Comment on above: Result Comment: Анна ture Granulocyte Count (IG) includes promyelocytes, myelocytes and metamyelocytes but does not include bands. Percent differential counts (%) should be interpreted in the context of the absolute cell counts (cells/UL). Performed By: #### 5 7021-8 #### RONAL Alvarez ([id number]) [facility] () [address] [place] [address] Lymphocytes (Bld) [#/Vol] 2.15 x10*3/uL Normal 1.20-4.80 [facility] Comment on above: Performed By: #### 5 7021-8 #### RONAL Alvarez ([id number]) [facility] () [address] [place] [address] Lymphocytes/100 WBC (Bld) 21.7 % Normal 13.0-44.0 [facility] Comment on above: Performed By: #### 5 7021-8 #### RONAL Alvarez ([id number]) [facility] () [address] [place] [address] MCH (RBC) [Entitic mass] 29.3 pg Normal 26.0-34.0 [facility] Comment on above: Performed By: #### 5 7021-8 #### RONAL Alvarez ([id number]) [facility] () [address] [place] [address] MCHC (RBC) [Mass/Vol] 32.6 g/dL Normal 32.0-36.0 [facility] Comment on above: Performed By: #### 5 7021-8 #### RONAL Alvarez ([id number]) [facility] () [address] [place] [address] MCV (RBC) [Entitic vol] 90 fL Normal 80-100 [facility] Comment on above: Performed By: #### 5 7021-8 #### RONAL Alvarez ([id number]) [facility] () [address] [place] [address] Monocytes (Bld) [#/Vol] 0.76 x10*3/uL Normal 0.10-1.00 [facility] Comment on above: Performed By: #### 5 7021-8 #### RONAL Alvarez ([id number]) [facility] () [address] [place] [address] Monocytes/100 WBC (Bld) 7.7 % Normal 2.0-10.0 [facility] Comment on above: Performed By: #### 5 7021-8 #### RONAL Alvarez ([id number]) [facility] () [address] [place] [address] Neutrophils (Bld) [#/Vol] 6.78 x10*3/uL Normal 1.20-7.70 [facility] Comment on above: Result Comment: Perc ent differential counts (%) should be interpreted in the context of the absolute cell counts (cells/uL). Performed By: #### 5 7021-8 #### RONAL Alvarez ([id number]) [facility] () [address] [place] [address] Neutrophils/100 WBC (Bld) 68.4 % Normal 40.0-80.0 [facility] Comment on above: Performed By: #### 5 7021-8 #### RONAL Alvarez ([id number]) [facility] () [address] [place] [address] Nucleated RBC/100 WBC (Bld) [Ratio] 0.0 /100 WBCs Normal 0.0-0.0 [facility] Comment on above: Performed By: #### 5 7021-8 #### RONAL Alvarez ([id number]) [facility] () [address] [place] [address] Platelets (Bld) [#/Vol] 439 x10*3/uL Normal 150-450 [facility] Comment on above: Performed By: #### 5 7021-8 #### RONAL Alvarez ([id number]) [facility] () [address] [place] [address] RBC (Bld) [#/Vol] 4.60 x10*6/uL Normal 4.00-5.20 [facility] Comment on above: Performed By: #### 5 7021-8 #### RONAL Alvarez ([id number]) [facility] () [address] [place] [address] WBC (Bld) [#/Vol] 9.9 x10*3/uL Normal 4.4-11.3 [facility] Comment on above: Performed By: #### 5 7021-8 #### RONAL Alvarez ([id number]) [facility] () [address] [place] [address] Staphylococcus aureus.methic illin resistant isolateon 03-21-2024 MRSA isol Org specific cx Ql (Nose) Test: Staphylococcus aureus/MRSA colonization, Culture Specimen Source: Anterior Nares Specimen Type: Swab Specimen Date: 03/21/2024 1412 Result Date: 03/23/2024 0747 Result Status: Final result Abnormal: No Resulting Lab: [facility] [address] [place] [address] CULTURE No Staphylococcus aureus isolated Normal [facility] Comment on above: Performed By: #### 5 2969-3 #### HEATHER Grant ([id number]) [facility] ([facility]) [address] [place] [address] Urinalysis complete W Reflex Culture panel (U)on 03-21-2024 Appearance (U) Clear Normal Clear [facility] Comment on above: Performed By: #### 5 8077-9 #### RONAL Alvarez ([id number]) [facility] () [address] [place] [address] Bilirubin (U) [Mass/Vol] Negative Normal NEGATIVE [facility] Comment on above: Performed By: #### 5 8077-9 #### RONAL Alvarez ([id number]) [facility] () [address] [place] [address] Color (U) Light-Yellow Normal Light-Yello w, Yellow, Dark-Yellow [facility] Comment on above: Performed By: #### 5 8077-9 #### RONAL Alvarez ([id number]) [facility] () [address] [place] [address] Glucose Auto test strip (U) [Mass/Vol] Normal Normal Normal [facility] Comment on above: Performed By: #### 5 8077-9 #### RONAL Alvarez ([id number]) [facility] () [address] [place] [address] Ketones (U) [Mass/Vol] Negative Normal NEGATIVE [facility] Comment on above: Performed By: #### 5 8077-9 #### RONAL Alvarez ([id number]) [facility] () [address] [place] [address] Leukocyte esterase Auto test strip Ql (U) Negative Normal NEGATIVE [facility] Comment on above: Performed By: #### 5 8077-9 #### RONAL Alvarez ([id number]) [facility] () [address] [place] [address] Nitrite Auto test strip Ql (U) Negative Normal NEGATIVE [facility] Comment on above: Performed By: #### 5 8077-9 #### RONAL Alvarez ([id number]) [facility] () [address] [place] [address] pH (U) 5.5 [pH] Normal 5.0, 5.5, 6.0, 6.5, 7.0, 7.5, 8.0 [facility] Comment on above: Performed By: #### 5 8077-9 #### RONAL Alvarez ([id number]) [facility] () [address] [place] [address] Protein (U) [Mass/Vol] Negative Normal NEGAT AMANDA, 10 (TRACE), 20 (TRACE) [facility] Comment on above: Performed By: #### 5 8077-9 #### RONAL Alvarez ([id number]) [facility] () [address] [place] [address] RBC (U) [#/Vol] Negative Normal NEGATIVE [facility] Comment on above: Performed By: #### 5 8077-9 #### RONAL Alvarez ([id number]) [facility] () [address] [place] [address] Specific gravity (U) [Rel density] 1.016 Normal 1.005-1.035 [facility] Comment on above: Performed By: #### 5 8077-9 #### RONAL Alvarez ([id number]) [facility] () [address] [place] [address] Urobilinogen (U) [Mass/Vol] Normal Normal Normal [facility] Comment on above: Performed By: #### 5 8077-9 #### RONAL Alvarez ([id number]) [facility] () [address] [place] [address] Absolute lymphocyte countOrd ered By: Karlie Johnson on 12-16-2023 Lymphocytes Auto (Unsp spec) [#/Vol] 2.10 10*3/uL 0.83-4.51 [facility] Automated lymphocyte count a s percentage of total leukocytesOrdered By: Karlie Johnson on 12-16-2023 Lymphocytes/100 WBC Auto (Unsp spec) 20.1 % 19-41 [facility] Basophil percentageOrdered B y: Karlie Johnson on 12-16-2023 Basophils/100 WBC (Bld) 0.9 % 0-[address] [facility] Chloride [Moles/Vol] 107 mmol/L 98-107 [facility] Eosinophils/100 WBC (Bld) 3.5 % 0-5 [facility] Glucose [Mass/Vol] 95 mg/dL 74-106 [facility] Hemoglobin (Bld) [Mass/Vol] 12.4 g/dL 12.0-15.0 [facility] Monocytes/100 WBC (Bld) 8.6 % 0-[address] [facility] Neutrophils (Bld) [#/Vol] 6.9 10*3/uL 2.0-7.7 [facility] Neutrophils/100 WBC (Bld) 66.1 % 47-70 [facility] Potassium [Moles/Vol] 3.6 mmol/L 3.5-5.1 [facility] Sodium [Moles/Vol] 141 mmol/L 136-145 [facility] WBC (Bld) [#/Vol] 10.4 10*3/uL 4.4-11.0 [facility] Determination of erythrocyte mean corpuscular volume (MCV)Ordered By: Karlie Johnson on 12-16-2023 MCV (RBC) [Entitic vol] 90.7 fL 81-[address] [facility] Erythrocyte distribution wid th ratioOrdered By: Karlie Johnson on 12-16-2023 Erythrocyte distribution width (RBC) [Ratio] 12.6 % 11.6-14.6 [facility] Erythrocyte distribution wid th standard deviationOrdered By: Karlie Johnson on 12-16-2023 Erythrocyte distribution width (RBC) [Entitic vol] 41.3 fL 35.1-43.9 [facility] Hematocrit Auto (Bld) [Volum e fraction]Ordered By: Karlie Johnson on 12-16-2023 Hematocrit (Bld) [Volume fraction] 38.9 % 37-47 [facility] Immature granulocytes/100 WB C Auto (Bld)Ordered By: Karlie Johnson on 12-16-2023 Immature granulocytes/100 WBC (Bld) 0.800 % 0.0-0.9 [facility] Comment on above: IG% - Immature Granu locytes (promyelocytes, myelocytes and metamyelocytes) > 1% indicates that a LEFT SHIFT is Present. Laboratory - Chemistry and C hemistry - challengeOrdered By: Karlie Johnson on 12-16-2023 CO2 [Moles/Vol] 29.0 mmol/L 21.0-32.0 [facility] Magnesium [Mass/Vol] 2.5 mg/dL 1.6-2.6 [facility] Urea nitrogen/Creatinine [Mass ratio] 17.3 mg/mg 10-20 [facility] Laboratory - Hematology and Cell countsOrdered By: Karlie Johnson on 12-16-2023 MCH (RBC) [Entitic mass] 28.9 pg 27.0-32.0 [facility] MCHC (RBC) [Mass/Vol] 31.9 g/dL 32-36 [facility] Nucleated RBC/100 WBC (Bld) [Ratio] 0 % 0-5 [facility] Platelet mean volume (Bld) [Entitic vol] 9.8 fL 6.2-12.0 [facility] Platelets (Bld) [#/Vol] 453 10*3/uL 150-450 [facility] No Panel InformationOrdered By: Karlie Johnson on 12-16-2023 Estimated GFR (MDRD) Amer 85 mL/min >60 [facility] Comment on above: GFR Calc Estimated GFR (MDRD) Non-Af Amer 70 mL/min >60 [facility] Comment on above: Non- GFR Calc Free Triiodothyronine (T3) pg/dL 2.3 pg/mL 2.18-3.98 [facility] RBC Auto (Bld) [#/Vol]Ordere d By: Karlie Johnson on 12-16-2023 RBC (Bld) [#/Vol] 4.29 10*6/uL 4.2-5.4 [facility] Serum or plasma calcium kyree urement (mass/volume)Ordered By: Karlie Johnson on 12-16-2023 Calcium [Mass/Vol] 9.3 mg/dL 8.5-10.1 [facility] Serum or plasma creatinine m easurement (mass/volume)Ordered By: Karlie Johnson on 12-16-2023 Creatinine [Mass/Vol] 0.87 mg/dL 0.55-1.02 [facility] Comment on above: The validity of the calculated GFR & GFRAA in patients over 70 years has not been determined. Clinical correlation is essential. Serum or plasma thyroid stim ulating hormone (TSH) measurement (units/volume)Ordered By: Karlie Johnson on 12-16-2023 TSH Qn 1.76 uIU/mL 0.358-3.74 [facility] Serum or plasma urea nitroge n measurement (mass/volume)Ordered By: Karlie Johnson on 12-16-2023 Urea nitrogen [Mass/Vol] 15 mg/dL 7-18 [facility] Thin prep Papanicolaou smear with manual screeningOrdered By: Karlie Johnson on 12-16-2023 Thin prep Papanicolaou smear with manual screening 5 5-15 [facility] Thin prep Papanicolaou smear with manual screening 1.10 ng/dL 0.76-1.46 [facility] Laboratory - Microbiology an d Antimicrobial susceptibilityon 10-06-2023 SARS-CoV-2 (COVID-19) RNA NEIL+probe Ql (Unsp spec) Detected [facility] No Panel Informationon 10-06 Influenza Types A,B Rapid (Clinic) Not detected [facility] Absolute lymphocyte countOrd ered By: Yennifer Johnson on 09-27-2023 Lymphocytes Auto (Unsp spec) [#/Vol] 1.81 10*3/uL 0.83-4.51 [facility] Basophil percentageOrdered B y: Yennifer Johnson on 09-27-2023 Basophils/100 WBC (Bld) 0.6 % 0-1 [facility] Chloride [Moles/Vol] 106 mmol/L 98-107 [facility] Eosinophils/100 WBC (Bld) 1.4 % 0-5 [facility] Glucose [Mass/Vol] 90 mg/dL 74-106 [facility] Neutrophils (Bld) [#/Vol] 8.1 10*3/uL 2.0-7.7 [facility] Neutrophils/100 WBC (Bld) 73.3 % 47-70 [facility] Potassium [Moles/Vol] 3.8 mmol/L 3.5-5.1 [facility] Sodium [Moles/Vol] 139 mmol/L 136-145 [facility] WBC (Bld) [#/Vol] 11.0 10*3/uL 4.4-11.0 [facility] Blood erythrocytes count (nu mber/volume)Ordered By: Yennifer Johnson on 09-27-2023 RBC (Bld) [#/Vol] 4.37 10*6/uL 4.2-5.4 [facility] Blood hemoglobin measurement (mass/volume)Ordered By: Yennifer Johnson on 09-27-2023 Hemoglobin (Bld) [Mass/Vol] 12.9 g/dL 12.0-15.0 [facility] Blood lymphocytes/100 leukoc ytesOrdered By: Yenniefr Johnson on 09-27-2023 Lymphocytes/100 WBC (Bld) 16.5 % 19-41 [facility] Blood monocytes/100 leukocyt esOrdered By: Yennifer Johnson on 09-27-2023 Monocytes/100 WBC (Bld) 7.7 % 0-[address] [facility] Blood platelet mean volumeOr dered By: Yennifer Johnson on 09-27-2023 Platelet mean volume (Bld) [Entitic vol] 10.3 fL 6.2-12.0 [facility] Determination of erythrocyte mean corpuscular volume (MCV)Ordered By: Yennifer Johnson on 09-27-2023 MCV (RBC) [Entitic vol] 90.4 fL 81-[address] [facility] Hematocrit Auto (Bld) [Volum e fraction]Ordered By: Yennifer Johnson on 09-27-2023 Hematocrit (Bld) [Volume fraction] 39.5 % 37-47 [facility] Laboratory - Chemistry and C hemistry - challengeOrdered By: Yennifer Johnson on 09-27-2023 CO2 [Moles/Vol] 24.0 mmol/L 21.0-32.0 [facility] Urea nitrogen/Creatinine [Mass ratio] 20.6 mg/mg 10-20 [facility] Laboratory - Hematology and Cell countsOrdered By: Yennifer Johnson on 09-27-2023 Erythrocyte distribution width (RBC) [Entitic vol] 39.6 fL 35.1-43.9 [facility] Erythrocyte distribution width (RBC) [Ratio] 11.9 % 11.6-14.6 [facility] Immature granulocytes/100 WBC (Bld) 0.500 % 0.0-0.9 [facility] Comment on above: IG% - Immature Granu locytes (promyelocytes, myelocytes and metamyelocytes) > 1% indicates that a LEFT SHIFT is Present. MCH (RBC) [Entitic mass] 29.5 pg 27.0-32.0 [facility] Nucleated RBC/100 WBC (Bld) [Ratio] 0 % 0-5 [facility] MCHC Auto (RBC) [Mass/Vol]Or dered By: Yennifer Johnson on 09-27-2023 MCHC (RBC) [Mass/Vol] 32.7 g/dL 32-36 [facility] No Panel InformationOrdered By: Yennifer Johnson on 09-27-2023 Estimated GFR (MDRD) Amer 97 mL/min >60 [facility] Comment on above: GFR Calc Estimated GFR (MDRD) Non-Af Amer 80 mL/min >60 [facility] Comment on above: Non- GFR Calc Platelets bldOrdered By: Lokesh Johnson on 09-27-2023 Platelets (Bld) [#/Vol] 452 10*3/uL 150-450 [facility] Serum or plasma calcium kyree urement (mass/volume)Ordered By: Yennifer Johnson on 09-27-2023 Calcium [Mass/Vol] 9.4 mg/dL 8.5-10.1 [facility] Serum or plasma creatinine m easurement (mass/volume)Ordered By: Yennifer Johnson on 09-27-2023 Creatinine [Mass/Vol] 0.78 mg/dL 0.55-1.02 [facility] Comment on above: The validity of the calculated GFR & GFRAA in patients over 70 years has not been determined. Clinical correlation is essential. Serum or plasma urea nitroge n measurement (mass/volume)Ordered By: Yennifer Johnson on 09-27-2023 Urea nitrogen [Mass/Vol] 16 mg/dL 7-18 [facility] Thin prep Papanicolaou smear with manual screeningOrdered By: Yennifer Johnson on 09-27-2023 Thin prep Papanicolaou smear with manual screening 9 5-15 [facility] Basophil percentageOrdered B y: Karlie Johnson on 07-03-2023 Bilirubin [Mass/Vol] 0.40 mg/dL 0.20-1.00 [facility] Comment on above: For patients on eltr ombopag therapy, use of Dimension [place] TBIL is not recommended. Cholesterol [Mass/Vol] 153 mg/dL <200 [facility] Comment on above: <200 mg/dL Desirable 200-240 mg/dL Borderline >240 mg/dL High Risk Protein [Mass/Vol] 7.6 g/dL 6.4-8.2 [facility] Triglyceride [Mass/Vol] 81 mg/dL <199 [facility] Comment on above: The drugs N-Acetylcy steine and Metamizole may falsely depress this assay.Serum Triglycerides Reference Interval Normal <150 mg/dL Borderline high 150 - 199 mg/dL High 200 - 499 mg/dL Very High > or = 500 mg/dL Direct bilirubinOrdered By: Karlie Johnson on 07-03-2023 Bilirubin.direct [Mass/Vol] 0.14 mg/dL 0.00-0.30 [facility] Laboratory - Chemistry and C hemistry - challengeOrdered By: Karlie Johnson on 07-03-2023 ALP [Catalytic activity/Vol] 79 U/L 45-117 [facility] ALT [Catalytic activity/Vol] 20 U/L 13-56 [facility] Globulin (S) [Mass/Vol] 3.8 g/dL 2.2-4.2 [facility] Serum or plasma albumin kyree urement (mass/volume)Ordered By: Karlie Johnson on 07-03-2023 Albumin [Mass/Vol] 3.8 g/dL 3.2-5.0 [facility] Serum or plasma cholesterol in HDL measurement (mass/volume)Ordered By: Karlie Johnson on 07-03-2023 Cholesterol in HDL [Mass/Vol] 53 mg/dL >40 [facility] Comment on above: The drugs N-Acetylcy steine and Metamizole may falsely depress this assay. Reference Range HDL <40 mg/dL Low HDL Cholesterol HDL >or= 60 mg/dL High HDL Cholesterol Serum or plasma cholesterol in VLDL measurement (mass/volume)Ordered By: Karlie Johnson on 07-03-2023 Cholesterol in VLDL [Mass/Vol] 16 mg/dL 5-40 [facility] Serum or plasma low density lipoprotein (LDL) cholesterol measurement (mass/volume)Ordered By: Karlie Johnson on 07-03-2023 Cholesterol in LDL [Mass/Vol] 84 mg/dL 0-130 [facility] Thin prep Papanicolaou smear with manual screeningOrdered By: Karlie Johnson on 07-03-2023 Thin prep Papanicolaou smear with manual screening 15 U/L 15-37 [facility] Basophil percentageOrdered B y: Dr. Lopez on 03-16-2023 Bilirubin [Mass/Vol] 0.30 mg/dL 0.20-1.00 [facility] Comment on above: For patients on eltr ombopag therapy, use of Dimension [place] TBIL is not recommended. Cholesterol [Mass/Vol] 179 mg/dL <200 [facility] Comment on above: <200 mg/dL Desirable 200-240 mg/dL Borderline >240 mg/dL High Risk Protein [Mass/Vol] 7.8 g/dL 6.4-8.2 [facility] Triglyceride [Mass/Vol] 62 mg/dL <[address] [facility] Comment on above: The drugs N-Acetylcy steine and Metamizole may falsely depress this assay.Serum Triglycerides Reference Interval Normal <150 mg/dL Borderline high 150 - 199 mg/dL High 200 - 499 mg/dL Very High > or = 500 mg/dL Direct bilirubinOrdered By: Dr. Lopez on 03-16-2023 Bilirubin.direct [Mass/Vol] 0.12 mg/dL 0.00-0.30 [facility] Laboratory - Chemistry and C hemistry - challengeOrdered By: Dr. Lopez on 03-16-2023 ALP [Catalytic activity/Vol] 88 U/L 45-117 [facility] ALT [Catalytic activity/Vol] 22 U/L 13-56 [facility] Globulin (S) [Mass/Vol] 4.0 g/dL 2.2-4.2 [facility] Serum or plasma albumin kyree urement (mass/volume)Ordered By: Dr. Lopez on 03-16-2023 Albumin [Mass/Vol] 3.8 g/dL 3.2-5.0 [facility] Serum or plasma cholesterol in HDL measurement (mass/volume)Ordered By: Dr. Lopez on 03-16-2023 Cholesterol in HDL [Mass/Vol] 66 mg/dL >40 [facility] Comment on above: The drugs N-Acetylcy steine and Metamizole may falsely depress this assay. Reference Range HDL <40 mg/dL Low HDL Cholesterol HDL >or= 60 mg/dL High HDL Cholesterol Serum or plasma cholesterol in VLDL measurement (mass/volume)Ordered By: Dr. Lopez on 03-16-2023 Cholesterol in VLDL [Mass/Vol] 12 mg/dL 5-40 [facility] Serum or plasma low density lipoprotein (LDL) cholesterol measurement (mass/volume)Ordered By: Dr. Lopez on 03-16-2023 Cholesterol in LDL [Mass/Vol] 101 mg/dL 0-130 [facility] Thin prep Papanicolaou smear with manual screeningOrdered By: Dr. Lopez on 03-16-2023 Thin prep Papanicolaou smear with manual screening 17 U/L 15-37 [facility] Basophil percentageOrdered B y: Dr. Lopez on 10-31-2022 Bilirubin [Mass/Vol] 0.50 mg/dL 0.20-1.00 [facility] Comment on above: For patients on eltr ombopag therapy, use of Dimension [place] TBIL is not recommended. Cholesterol [Mass/Vol] 176 mg/dL <200 [facility] Comment on above: <200 mg/dL Desirable 200-240 mg/dL Borderline >240 mg/dL High Risk Protein [Mass/Vol] 7.6 g/dL 6.4-8.2 [facility] Triglyceride [Mass/Vol] 88 mg/dL <[address] [facility] Comment on above: The drugs N-Acetylcy steine and Metamizole may falsely depress this assay.Serum Triglycerides Reference Interval Normal <150 mg/dL Borderline high 150 - 199 mg/dL High 200 - 499 mg/dL Very High > or = 500 mg/dL Direct bilirubinOrdered By: Dr. Lopez on 10-31-2022 Bilirubin.direct [Mass/Vol] 0.10 mg/dL 0.00-0.30 [facility] Laboratory - Chemistry and C hemistry - challengeOrdered By: Dr. Lopez on 10-31-2022 ALP [Catalytic activity/Vol] 82 U/L 45-117 [facility] ALT [Catalytic activity/Vol] 22 U/L 13-56 [facility] Globulin (S) [Mass/Vol] 3.7 g/dL 2.2-4.[address] [facility] Serum or plasma albumin kyree urement (mass/volume)Ordered By: Dr. Lopez on 10-31-2022 Albumin [Mass/Vol] 3.9 g/dL 3.2-5.0 [facility] Serum or plasma cholesterol in HDL measurement (mass/volume)Ordered By: Dr. Lopez on 10-31-2022 Cholesterol in HDL [Mass/Vol] 68 mg/dL >40 [facility] Comment on above: The drugs N-Acetylcy steine and Metamizole may falsely depress this assay. Reference Range HDL <40 mg/dL Low HDL Cholesterol HDL >or= 60 mg/dL High HDL Cholesterol Serum or plasma cholesterol in VLDL measurement (mass/volume)Ordered By: Dr. Lopez on 10-31-2022 Cholesterol in VLDL [Mass/Vol] 18 mg/dL 5-40 [facility] Serum or plasma low density lipoprotein (LDL) cholesterol measurement (mass/volume)Ordered By: Dr. Lopez on 10-31-2022 Cholesterol in LDL [Mass/Vol] 90 mg/dL 0-130 [facility] Thin prep Papanicolaou smear with manual screeningOrdered By: Dr. Lopez on 10-31-2022 Thin prep Papanicolaou smear with manual screening 12 U/L 15-37 [facility] Absolute lymphocyte counton 06-24-2022 Lymphocytes Auto (Unsp spec) [#/Vol] 2.61 10*3/uL 0.83-4.51 [facility] Work Phone: Basophil percentageon 2021 Basophils/100 WBC (Bld) 0.7 % 0-[address] [facility] Work Phone: Chloride [Moles/Vol] 107 mmol/L 98-107 [facility] Work Phone: Eosinophils/100 WBC (Bld) 2.0 % 0-5 [facility] Work Phone: Glucose [Mass/Vol] 81 mg/dL 74-106 [facility] Work Phone: Neutrophils (Bld) [#/Vol] 6.7 10*3/uL 2.0-7.7 [facility] Work Phone: [phone] Neutrophils/100 WBC (Bld) 62.6 % 47-70 [facility] Work Phone: [phone] Potassium [Moles/Vol] 3.5 mmol/L 3.5-5.1 [facility]: [phone] Sodium [Moles/Vol] 142 mmol/L 136-145 [facility] Work Phone: [phone] WBC (Bld) [#/Vol] 10.8 10*3/uL 4.4-11.0 [facility] Work Phone: [phone] Blood erythrocytes count (nu mber/volume)on 06-24-2022 RBC (Bld) [#/Vol] 4.27 10*6/uL 4.2-5.4 [facility] Work Phone: [phone] Blood hemoglobin measurement (mass/volume)on 06-24-2022 Hemoglobin (Bld) [Mass/Vol] 13.0 g/dL 12.0-15.0 [facility] Work Phone: [phone] Blood lymphocytes/100 leukoc yteson 06-24-2022 Lymphocytes/100 WBC (Bld) 24.3 % 19-41 [facility] Work Phone: [phone] Blood monocytes/100 leukocyt eson 06-24-2022 Monocytes/100 WBC (Bld) 9.7 % 0-[address] [facility] Work Phone: [phone] Blood platelet mean volumeon 06-24-2022 Platelet mean volume (Bld) [Entitic vol] 10.1 fL 6.2-12.0 [facility] Work Phone: [phone] Determination of erythrocyte mean corpuscular volume (MCV)on 06-24-2022 MCV (RBC) [Entitic vol] 92.3 fL 81-[address] [facility] Work Phone: [phone] Hematocrit Auto (Bld) [Volum e fraction]on 06-24-2022 Hematocrit (Bld) [Volume fraction] 39.4 % 37-47 [facility] Work Phone: [phone] Laboratory - Chemistry and C hemistry - challengeon 06-24-2022 CO2 [Moles/Vol] 31.0 mmol/L 21.0-32.0 [facility] Work Phone: [phone] Magnesium [Mass/Vol] 2.4 mg/dL 1.6-2.6 [facility] Work Phone: [phone] Urea nitrogen/Creatinine [Mass ratio] 18.8 mg/mg 10-20 [facility] Work Phone: [phone] Laboratory - Hematology and Cell countson 06-24-2022 Erythrocyte distribution width (RBC) [Entitic vol] 41.0 fL 35.1-43.9 [facility] Work Phone: [phone] Erythrocyte distribution width (RBC) [Ratio] 12.2 % 11.6-14.6 [facility] Work Phone: [phone] Immature granulocytes/100 WBC (Bld) 0.700 % 0.0-0.9 [facility] Work Phone: [phone] Comment on above: IG% - Immature Granu locytes (promyelocytes, myelocytes and metamyelocytes) > 1% indicates that a LEFT SHIFT is Present. MCH (RBC) [Entitic mass] 30.4 pg 27.0-32.0 [facility] Work Phone: [phone] Nucleated RBC/100 WBC (Bld) [Ratio] 0 % 0-5 [facility] Work Phone: [phone] MCHC Auto (RBC) [Mass/Vol]on 06-24-2022 MCHC (RBC) [Mass/Vol] 33.0 g/dL 32-36 [facility] Work Phone: [phone] Panel Informationon 06-24 Estimated GFR (MDRD) Amer 81 mL/min >60 [facility] Work Phone: [phone] Comment on above: GFR Calc Estimated GFR (MDRD) Non-Af Amer 67 mL/min >60 [facility] Work Phone: Comment on above: Non- GFR Calc Platelets bldon 06-24-2022 Platelets (Bld) [#/Vol] 433 10*3/uL 150-450 [facility] Work Phone: Serum or plasma calcium kyree urement (mass/volume)on 06-24-2022 Calcium [Mass/Vol] 9.7 mg/dL 8.5-10.1 [facility] Work Phone: [phone] Serum or plasma creatinine m easurement (mass/volume)on 06-24-2022 Creatinine [Mass/Vol] 0.90 mg/dL 0.55-1.02 [facility] Work Phone: Comment on above: The validity of the calculated GFR & GFRAA in patients over 70 years has not been determined. Clinical correlation is essential. Serum or plasma urea nitroge n measurement (mass/volume)on 06-24-2022 Urea nitrogen [Mass/Vol] 17 mg/dL 7-18 [facility] Work Phone: [phone] Thin prep Papanicolaou smear with manual screeningon 06-24-2022 Thin prep Papanicolaou smear with manual screening 4 5-15 [facility] Work Phone: [phone] Laboratory - Chemistry and C hemistry - challengeon 06-09-2022 Cobalamin (Vitamin B12) [Mass/Vol] 362 pg/mL 211-911 [facility] Work Phone: [phone] Free T4 [Mass/Vol] 1.10 ng/dL 0.76-1.46 [facility] Work Phone: [phone] Panel Informationon 06-09 Thyroid Stimulating Hormone (TSH) 1.73 uIU/mL 0.358-3.74 [facility] Work Phone: Basophil percentageon 2021 Bilirubin [Mass/Vol] 0.40 mg/dL 0.20-1.00 [facility] Work Phone: Comment on above: For patients on eltr ombopag therapy, use of Dimension [place] TBIL is not recommended. Cholesterol [Mass/Vol] 162 mg/dL <200 [facility] Work Phone: Comment on above: <200 mg/dL Desirable 200-240 mg/dL Borderline >240 mg/dL High Risk Protein [Mass/Vol] 7.2 g/dL 6.4-8.2 [facility] Work Phone: Triglyceride [Mass/Vol] 85 mg/dL <[address] [facility] Work Phone: [phone] Comment on above: The drugs N-Acetylcy steine and Metamizole may falsely depress this assay.Serum Triglycerides Reference Interval Normal <150 mg/dL Borderline high 150 - 199 mg/dL High 200 - 499 mg/dL Very High > or = 500 mg/dL Direct bilirubinon 2 Bilirubin.direct [Mass/Vol] 0.10 mg/dL 0.00-0.30 [facility] Work Phone: Laboratory - Chemistry and C hemistry - challengeon 05-15-2022 ALP [Catalytic activity/Vol] 80 U/L 45-117 [facility] Work Phone: [phone] ALT [Catalytic activity/Vol] 19 U/L 13-56 [facility] Work Phone: [phone] Globulin (S) [Mass/Vol] 3.6 g/dL 2.2-4.[address] [facility] Work Phone: [phone] Serum or plasma albumin kyree urement (mass/volume)on 05-15-2022 Albumin [Mass/Vol] 3.6 g/dL 3.2-5.0 [facility] Work Phone: [phone] Serum or plasma cholesterol in HDL measurement (mass/volume)on 05-15-2022 Cholesterol in HDL [Mass/Vol] 56 mg/dL >40 [facility] Work Phone: [phone] Comment on above: The drugs N-Acetylcy steine and Metamizole may falsely depress this assay. Reference Range HDL <40 mg/dL Low HDL Cholesterol HDL >or= 60 mg/dL High HDL Cholesterol Serum or plasma cholesterol in VLDL measurement (mass/volume)on 05-15-2022 Cholesterol in VLDL [Mass/Vol] 17 mg/dL 5-40 [facility] Work Phone: Serum or plasma low density lipoprotein (LDL) cholesterol measurement (mass/volume)on 05-15-2022 Cholesterol in LDL [Mass/Vol] 89 mg/dL 0-130 [facility] Work Phone: Thin prep Papanicolaou smear with manual screeningon 05-15-2022 Thin prep Papanicolaou smear with manual screening 13 U/L 15-37 [facility] Work Phone: CNPNon 05-22-2020 [facility] Telephone ([facility]) LEEANN CROCKETT ([id number]) 1960 F Date Time Provider Department 05/22/20 NUSRAT HOLLAND [facility] During your visit today, we recorded the following information about you: Sara Polkcris ELIZALDE 05/22/2020 11:01 AM Signed Patient calling was in urgent care 05/19 and put on bactrim rx. Patient said she has been sick Wednesday and Wednesday lightheaded, nausea, almost going to ER. Patient stopped taking the bactrim rx not taken any today. Patient asking if rx needs changed? Patient uses [facility] for her pharmacy. Please advise [...] Status:Closed by LEEANN SAMSON LPN on 05/22/20 [facility] CNOVon 05-19-2020 CNOV Office Visit ([facility] ) LEEANN CROCKETT ([id number]) 1960 F Date Time Provider Department 05/19/20 8:15 AM [facility] During your visit today, we recorded the [...] have confirmed and edited as necessary, the [facility] Review of Systems Constitutional: Negative for chills [...] detail warranting prompt ER evaluation. Nusrat Holland APRN.CERTIFIED PEST CONTROL TECHNICIAN Referring Provider: SELF [200] Allergies As of [...] [N39.0] Dysuria [R30.0] Order(s):UA DIP, URINE (POC) [3986260] Order #: [id number] #:[id number] URINE CULTURE [SQURCUL] Order #: [id number] sulfamethoxazole-trime thoprim (BACTRIM DS) 800-160 mg per [...] Status:Closed by NUSRAT HOLLAND CNP on 05/19/20 [facility] PROGRESSon 05-19-2020 PROGRESS HNO ID: [id number] Author: Nusrat Holland Service: ? Author Type: [...] have confirmed and edited as necessary, the [facility] Review of Systems Constitutional: Negative for chills [...] detail warranting prompt ER evaluation. Nusrat Holland APRN.CERTIFIED PEST CONTROL TECHNICIAN Normal [facility] Urine [...] above: Performed By: #### U RCUL #### [facility] [address] [place], [place] [address] Vital Signs Date Time Vital Sign Value Performing Clinician Facility 08-01-2025 10:49-0400 Body height 157.[address] Yennifer Johnson MD Work Phone: [facility] 08-01-2025 10:49-0400 Body mass index (BMI) [Ratio] 29.3 kg/m2 Dr. Yennifer Johnson MD Work Phone: [facility] 08-01-2025 10:49-0400 Body temperature 98.4 [degF] Dr. Yennifer Johnson MD Work Phone: [facility] 08-01-2025 10:49-0400 Body weight 72.[address] Yennifer Johnson MD Work Phone: [facility] 08-01-2025 10:49-0400 Diastolic blood pressure 82 mm[Hg] Dr. Yennifer Johnson MD Work Phone: [facility] 08-01-2025 10:49-0400 Heart rate 69 /min Dr. Yennifer Johnson MD Work Phone: [facility] 08-01-2025 10:49-0400 Respiratory rate 16 /min Dr. Yennifer Johnson MD Work Phone: [facility] 08-01-2025 10:49-0400 SaO2% (BldA) [Mass fraction] 99 % Dr. Yennifer Johnson MD Work Phone: [facility] 08-01-2025 10:49-0400 Systolic blood pressure 121 mm[Hg] Dr. Yennifer Johnson MD Work Phone: [facility] 07-27-2025 08:48-0400 Body height 157.[address] Yennifer Johnson MD Work Phone: [facility] 07-27-2025 08:48-0400 Body mass index (BMI) [Ratio] 29.6 kg/m2 Dr. Yennifer Johnson MD Work Phone: [facility] 07-27-2025 08:48-0400 Body weight 73.[address] Yennifer Johnson MD Work Phone: [facility] 07-27-2025 08:48-0400 Diastolic blood pressure 80 mm[Hg] Dr. Yennifer Johnson MD Work Phone: [facility] 07-27-2025 08:48-0400 Heart rate 76 /min Dr. Yennifer Johnson MD Work Phone: [facility] 07-27-2025 08:48-0400 Respiratory rate 18 /min Dr. Yennifer Johnson MD Work Phone: [facility] 07-27-2025 08:48-0400 SaO2% (BldA) [Mass fraction] 98 % Dr. Yennifer Johnson MD Work Phone: [facility] 07-27-2025 08:48-0400 Systolic blood pressure 125 mm[Hg] Dr. Yennifer Johnson MD Work Phone: [facility] 07-27-2025 07:44-0400 Body height 157.[address] Yennifer Johnson MD Work Phone: [facility] 07-27-2025 07:44-0400 Body mass index (BMI) [Ratio] 29.7 kg/m2 Dr. Yennifer Johnson MD Work Phone: [facility] 07-27-2025 07:44-0400 Body temperature 97.5 [degF] Dr. Yennifer Johnson MD Work Phone: [facility] 07-27-2025 07:44-0400 Body weight 73.[address] Yennifer Johnson MD Work Phone: [facility] 07-27-2025 07:44-0400 Diastolic blood pressure 68 mm[Hg] Dr. Yennifer Johnson MD Work Phone: [facility] 07-27-2025 07:44-0400 Heart rate 75 /min Dr. Yennifer Johnson MD Work Phone: [facility] 07-27-2025 07:44-0400 Respiratory rate 16 /min Dr. Yennifer Johnson MD Work Phone: [facility] 07-27-2025 07:44-0400 SaO2% (BldA) [Mass fraction] 99 % Dr. Yennifer Johnson MD Work Phone: [facility] 07-27-2025 07:44-0400 Systolic blood pressure 128 mm[Hg] Dr. Yennifer Johnson MD Work Phone: [facility] 05-28-2025 07:36-0400 Body height 157.[address] Yennifer Johnson MD Work Phone: [facility] 05-28-2025 07:36-0400 Body mass index (BMI) [Ratio] 28.9 kg/m2 Dr. Yennifer Johnson MD Work Phone: [facility] 05-28-2025 07:36-0400 Body temperature 97 [degF] Dr. Yennifer Johnson MD Work Phone: [facility] 05-28-2025 07:36-0400 Body weight 71.[address] Yennifer Johnson MD Work Phone: [facility] 05-28-2025 07:36-0400 Diastolic blood pressure 68 mm[Hg] Dr. Yennifer Johnson MD Work Phone: [facility] 05-28-2025 07:36-0400 Heart rate 72 /min Dr. Yennifer Johnson MD Work Phone: [facility] 05-28-2025 07:36-0400 Respiratory rate 16 /min Dr. Yennifer Johnson MD Work Phone: [facility] 05-28-2025 07:36-0400 SaO2% (BldA) [Mass fraction] 98 % Dr. Yennifer Johnson MD Work Phone: [facility] 05-28-2025 07:36-0400 Systolic blood pressure 120 mm[Hg] Dr. Yennifer Johnson MD Work Phone: [facility] 05-02-2025 09:01-0400 Body height 157.[address] Yennifer Johnson MD Work Phone: [facility] 05-02-2025 09:01-0400 Body mass index (BMI) [Ratio] 29 kg/m2 Dr. Yennifer Johnson MD Work Phone: [facility] 05-02-2025 09:01-0400 Body weight 71.[address] Yennifer Johnson MD Work Phone: [facility] 05-02-2025 09:01-0400 Diastolic blood pressure 68 mm[Hg] Dr. Yennifer Johnson MD Work Phone: [facility] 05-02-2025 09:01-0400 Heart rate 67 /min Dr. Yennifer Johnson MD Work Phone: [facility] 05-02-2025 09:01-0400 Respiratory rate 15 /min Dr. Yennifer Johnson MD Work Phone: [facility] 05-02-2025 09:01-0400 SaO2% (BldA) [Mass fraction] 97 % Dr. Yennifer Johnson MD Work Phone: [facility] 05-02-2025 09:01-0400 Systolic blood pressure 124 mm[Hg] Dr. Yennifer Johnson MD Work Phone: [facility] 04-26-2025 13:01-0400 Body height 157.[address] Yennifer Johnson MD Work Phone: [facility] 04-26-2025 13:01-0400 Body mass index (BMI) [Ratio] 28.7 kg/m2 Dr. Yennifer Johnson MD Work Phone: [facility] 04-26-2025 13:01-0400 Body weight 71.[address] Yennifer Johnson MD Work Phone: [facility] 04-26-2025 13:01-0400 Diastolic blood pressure 72 mm[Hg] Dr. Yennifer Johnson MD Work Phone: [facility] 04-26-2025 13:01-0400 Heart rate 82 /min Dr. Yennifer Johnson MD Work Phone: [facility] 04-26-2025 13:01-0400 Respiratory rate 18 /min Dr. Yennifer Johnson MD Work Phone: [facility] 04-26-2025 13:01-0400 Systolic blood pressure 118 mm[Hg] Dr. Yennifer Johnson MD Work Phone: [facility] 04-04-2024 12:06-0400 Body temperature 98.4 [degF] Tin West MD Work Phone: [facility] 04-04-2024 12:06-0400 Diastolic blood pressure 66 mm[Hg] Tin West MD Work Phone: [facility] 04-04-2024 12:06-0400 Respiratory rate 16 /min Tin West MD Work Phone: [facility] 04-04-2024 12:06-0400 SaO2% (BldA) [Mass fraction] 99 % Tin West MD Work Phone: [facility] 04-04-2024 12:06-0400 Systolic blood pressure 133 mm[Hg] Tin West MD Work Phone: [facility] 04-04-2024 03:27-0400 Body mass index (BMI) [Ratio] 32.5 kg/m2 Tin West MD Work Phone: [facility] 04-04-2024 03:27-0400 Body weight 80.6 kg Tin West MD Work Phone: [facility] 04-03-2024 12:15-0400 Heart rate 76 /min Tin West MD Work Phone: [facility] 12-16-2023 13:11-0500 Body height 157.[address] Yennifer Johnson Work Phone: [facility] 12-16-2023 13:11-0500 Body mass index (BMI) [Ratio] 29.2 kg/m2 Dr. Yennifer Johnson Work Phone: [facility] 12-16-2023 13:11-0500 Body weight 72.[address] Yennifer Johnson Work Phone: [facility] 12-16-2023 13:11-0500 Diastolic blood pressure 77 mm[Hg] Dr. Yennifer Johnson Work Phone: [facility] 12-16-2023 13:11-0500 Heart rate 73 /min Dr. Yennifer Johnson Work Phone: [facility] 12-16-2023 13:11-0500 Respiratory rate 18 /min Dr. Yennifer Johnson Work Phone: [facility] 12-16-2023 13:11-0500 SaO2% (BldA) [Mass fraction] 97 % Dr. Yennifer Johnson Work Phone: [facility] 12-16-2023 13:11-0500 Systolic blood pressure 123 mm[Hg] Dr. Yennifer Johnson Work Phone: [facility] 10-06-2023 11:20-0500 Body height 157.[address] Yennifer Johnson Work Phone: [facility] 10-06-2023 11:20-0500 Body mass index (BMI) [Ratio] 27.8 kg/m2 Dr. Yennifer Johnson Work Phone: [facility] 10-06-2023 11:20-0500 Body temperature 98.2 [degF] Dr. Yennifer Johnson Work Phone: [facility] 10-06-2023 11:20-0500 Body weight 68.[address] Yennifer Johnson Work Phone: [facility] 10-06-2023 11:20-0500 Diastolic blood pressure 63 mm[Hg] Dr. Yennifer Johnson Work Phone: [facility] 10-06-2023 11:20-0500 Heart rate 92 /min Dr. Yennifer Johnson Work Phone: [facility] 10-06-2023 11:20-0500 Respiratory rate 16 /min Dr. Yennifer Johnson Work Phone: [facility] 10-06-2023 11:20-0500 SaO2% (BldA) [Mass fraction] 96 % Dr. Yennifer Johnson Work Phone: [facility] 10-06-2023 11:20-0500 Systolic blood pressure 100 mm[Hg] Dr. Yennifer Johnson Work Phone: [facility] 09-27-2023 13:05-0500 Body mass index (BMI) [Ratio] 27.8 kg/m2 Dr. Yennifer Johnson Work Phone: [facility] 09-27-2023 13:05-0500 Body temperature 98.4 [degF] Dr. Yennifer Johnson Work Phone: [facility] 09-27-2023 13:05-0500 Body weight 71.[address] Yennifer Johnson Work Phone: [facility] 09-27-2023 13:05-0500 Diastolic blood pressure 80 mm[Hg] Dr. Yennifer Johnson Work Phone: [facility] 09-27-2023 13:05-0500 Heart rate 77 /min Dr. Yennifer Johnson Work Phone: [facility] 09-27-2023 13:05-0500 Respiratory rate 16 /min Dr. Yennifer Johnson Work Phone: [facility] 09-27-2023 13:05-0500 SaO2% (BldA) [Mass fraction] 98 % Dr. Yennifer Johnson Work Phone: [facility] 09-27-2023 13:05-0500 Systolic blood pressure 120 mm[Hg] Dr. Yennifer Johnson Work Phone: [facility] 07-12-2023 09:13-0400 Body mass index (BMI) [Ratio] 27.4 kg/m2 Dr. Yennifer Johnson Work Phone: [facility] 07-12-2023 09:13-0400 Body weight 70.[address] Yennifer Johnson Work Phone: [facility] 07-12-2023 09:13-0400 Diastolic blood pressure 84 mm[Hg] Dr. Yennifer Johnson Work Phone: [facility] 07-12-2023 09:13-0400 Heart rate 69 /min Dr. Yennifer Johnson Work Phone: [facility] 07-12-2023 09:13-0400 Respiratory rate 18 /min Dr. Yennifer Johnson Work Phone: [facility] 07-12-2023 09:13-0400 SaO2% (BldA) [Mass fraction] 98 % Dr. Yennifer Johnson Work Phone: [facility] 07-12-2023 09:13-0400 Systolic blood pressure 129 mm[Hg] Dr. Yennifer Johnson Work Phone: [facility] 02-24-2023 13:25-0400 Body temperature 98.5 [degF] Dr. Yennifer Johnson Work Phone: [facility] 02-24-2023 13:25-0400 Diastolic blood pressure 77 mm[Hg] Dr. Yennifer Johnson Work Phone: [facility] 02-24-2023 13:25-0400 Heart rate 67 /min Dr. Yennifer Johnson Work Phone: [facility] 02-24-2023 13:25-0400 Respiratory rate 16 /min Dr. Yennifer Johnson Work Phone: [facility] 02-24-2023 13:25-0400 SaO2% (BldA) [Mass fraction] 99 % Dr. Yennifer Johnson Work Phone: [facility] 02-24-2023 13:25-0400 Systolic blood pressure 138 mm[Hg] Dr. Yennifer Johnson Work Phone: [facility] 02-24-2023 06:15-0400 Body height 160.[address] Yennifer Johnson Work Phone: [facility] 02-24-2023 06:15-0400 Body mass index (BMI) [Ratio] 28 kg/m2 Dr. Yennifer Johnson Work Phone: [facility] 02-24-2023 06:15-0400 Body weight [address] Yennifer Johnson Work Phone: [facility] 07-27-2022 13:39-0400 Body height 160.[address] Yennifer Johnson Work Phone: [facility] 07-27-2022 13:39-0400 Body mass index (BMI) [Ratio] 28.7 kg/m2 Dr. Yennifer Johnson Work Phone: [facility] 07-27-2022 13:39-0400 Body temperature 97.5 [degF] Dr. Yennifer Johnson Work Phone: [facility] 07-27-2022 13:39-0400 Body weight 73.[address] Yennifer Johnson Work Phone: [facility] 07-27-2022 13:39-0400 Diastolic blood pressure 80 mm[Hg] Dr. Yennifer Johnson Work Phone: [facility] 07-27-2022 13:39-0400 Heart rate 83 /min Dr. Yennifer Johnson Work Phone: [facility] 07-27-2022 13:39-0400 Respiratory rate 14 /min Dr. Yennifer Johnson Work Phone: [facility] 07-27-2022 13:39-0400 SaO2% (BldA) [Mass fraction] 98 % Dr. Yennifer Johnson Work Phone: [facility] 07-27-2022 13:39-0400 Systolic blood pressure 130 mm[Hg] Dr. Yennifer Johnson Work Phone: [facility] 07-10-2022 10:57-0400 Body mass index (BMI) [Ratio] 28.7 kg/m2 Dr. Yennifer Johnson Work Phone: [facility] Work Phone: 07-10-2022 10:57-0400 Body temperature 97.2 [degF] Dr. Yennifer Johnson Work Phone: [facility] Work Phone: 07-10-2022 10:57-0400 Body weight 73.[address] Yennifer Johnson Work Phone: [facility] Work Phone: 07-10-2022 10:57-0400 Diastolic blood pressure 80 mm[Hg] Dr. Yennifer Johnson Work Phone: [facility] Work Phone: 07-10-2022 10:57-0400 Heart rate 71 /min Dr. Yennifer Johnson Work Phone: [facility] Work Phone: 07-10-2022 10:57-0400 Respiratory rate 16 /min Dr. Yennifer Johnson Work Phone: [facility] Work Phone: 07-10-2022 10:57-0400 SaO2% (BldA) [Mass fraction] 98 % Dr. Yennifer Johnson Work Phone: [facility] Work Phone: 07-10-2022 10:57-0400 Systolic blood pressure 122 mm[Hg] Dr. Yennifer Johnson Work Phone: [facility] Work Phone: 07-01-2022 08:03-0400 Body mass index (BMI) [Ratio] 28.8 kg/m2 Dr. Yennifer Johnson Work Phone: [facility] Work Phone: 07-01-2022 08:03-0400 Body temperature 98.3 [degF] Dr. Yennifer Johnson Work Phone: [facility] Work Phone: 07-01-2022 08:03-0400 Body weight 73.[address] Yennifer Johnson Work Phone: [facility] Work Phone: 07-01-2022 08:03-0400 Diastolic blood pressure 80 mm[Hg] Dr. Yennifer Johnson Work Phone: [facility] Work Phone: 07-01-2022 08:03-0400 Heart rate 85 /min Dr. Yennifer Johnson Work Phone: [facility] Work Phone: 07-01-2022 08:03-0400 Respiratory rate 18 /min Dr. Yennifer Johnson Work Phone: [facility] Work Phone: 07-01-2022 08:03-0400 SaO2% (BldA) [Mass fraction] 98 % Dr. Yenniefr Johnson Work Phone: [facility] Work Phone: 07-01-2022 08:03-0400 Systolic blood pressure 130 mm[Hg] Dr. Yennifer Johnson Work Phone: [facility] Work Phone: 06-24-2022 14:49-0400 Body height 160.[address] Yennifer Johnson Work Phone: [facility] Work Phone: 06-24-2022 14:49-0400 Body mass index (BMI) [Ratio] 28.8 kg/m2 Dr. Yennifer Johnson Work Phone: [facility] Work Phone: 06-24-2022 14:49-0400 Body weight 73.[address] Yennifer Johnson Work Phone: [facility] Work Phone: 06-24-2022 14:49-0400 Diastolic blood pressure 79 mm[Hg] Dr. Yennifer Johnson Work Phone: [facility] Work Phone: 06-24-2022 14:49-0400 Heart rate 82 /min Dr. Yennifer Johnson Work Phone: [facility] Work Phone: 06-24-2022 14:49-0400 Respiratory rate 18 /min Dr. Yennifer Johnson Work Phone: [facility] Work Phone: 06-24-2022 14:49-0400 SaO2% (BldA) [Mass fraction] 97 % Dr. Yennifer Johnson Work Phone: [facility] Work Phone: 06-24-2022 14:49-0400 Systolic blood pressure 131 mm[Hg] Dr. Yennifer Johnson Work Phone: [facility] Work Phone: 06-09-2022 14:55-0400 Body height 160.[address] Yennifer Johnson Work Phone: [facility] Work Phone: 06-09-2022 14:55-0400 Body mass index (BMI) [Ratio] 28.3 kg/m2 Dr. Yennifer Johnson Work Phone: [facility] Work Phone: 06-09-2022 14:55-0400 Body temperature 97.9 [degF] Dr. Yennifer Johnson Work Phone: [facility] Work Phone: 06-09-2022 14:55-0400 Body weight 72.[address] Yennifer Johnson Work Phone: [facility] Work Phone: 06-09-2022 14:55-0400 Diastolic blood pressure 82 mm[Hg] Dr. Yennifer Johnson Work Phone: [facility] Work Phone: 06-09-2022 14:55-0400 Heart rate 80 /min Dr. Yennifer Johnson Work Phone: [facility] Work Phone: 06-09-2022 14:55-0400 Respiratory rate 14 /min Dr. Yennifer Johnson Work Phone: [facility] Work Phone: 06-09-2022 14:55-0400 SaO2% (BldA) [Mass fraction] 98 % Dr. Yennifer Johnson Work Phone: [facility] Work Phone: 06-09-2022 14:55-0400 Systolic blood pressure 134 mm[Hg] Dr. Yennifer Johnson Work Phone: [facility] Work Phone: 05-04-2022 18:49-0400 Diastolic blood pressure 74 mm[Hg] [facility] Work Phone: 05-04-2022 18:49-0400 Heart rate 74 /min [facility] Work Phone: 05-04-2022 18:49-0400 Respiratory rate 16 /min [facility] Work Phone: 05-04-2022 18:49-0400 Systolic blood pressure 132 mm[Hg] [facility] Work Phone: 05-04-2022 16:54-0400 Body height 160.02 cm [facility] Work Phone: 05-04-2022 16:54-0400 Body mass index (BMI) [Ratio] 30.4 kg/m2 [facility] Work Phone: 05-04-2022 16:54-0400 Body temperature 97.1 [degF] [facility] Work Phone: 05-04-2022 16:54-0400 Body weight 77.9 kg [facility] Work Phone: 05-04-2022 16:54-0400 SaO2% (BldA) [Mass fraction] 100 % [facility] Work Phone: Encounters Encounter Date Encounter Type Care Provider Facility Start: 08-16-2025 ambulatory Yennifer Brionesi ty:[facility] Start: 08-15-2025 ambulatory María Tevin Facility:[facility] Start: 08-15-2025 End: 08-15-2025 ambulatory Yennifer Johnson Facility:[facility] Start: 08-08-2025 End: 08-08-[address] Cy Maldonado DO [facility] Work Phone: Start: 08-08-2025 End: 08-08-[address] Yennifer Johnson MD Work Phone: [facility] Start: 08-02-2025 Non-patient / Non-visit Karlie rdz [employer]IVETING MACHINE [employer]PERATOR [employer]-C -[facility] Work Phone: Start: 08-02-2025 ambulatory Yennifer Jennings ty:[facility] Start: 08-01-2025 End: 08-01-[address] Cy Peterson MD -[facility] Work Phone: Start: 08-01-[address] Cy Peterson MD [facility] Start: 08-01-2025 End: 08-01-[address] Yennifer Johnson MD Work Phone: [facility] Start: 08-01-2025 ambulatory Salazar Sim Facility:[facility] Start: 08-01-2025 Non-patient / Non-visit Dr. Salazar ball MD -[facility] Start: 08-01-2025 End: 08-01-2025 Patient encounter procedure Karlie Johnson RIVETING MACHINE OPERATOR [employer]-C -[facility] Work Phone: Start: 08-01-2025 End: 08-01-2025 ambulatory Karlie Johnson NP Facility:[facility] Start: 07-27-2025 End: 07-27-2025 Patient encounter procedure Karlie Johnson RIVETING MACHINE OPERATOR [employer]-C -[facility] Work Phone: Start: 07-27-2025 End: 07-27-[address] Yennifer Johnson MD Work Phone: -[facility] Start: 07-27-2025 End: 07-27-[address] Yennifer Johnson MD -[facility] Work Phone: Start: 07-27-2025 End: 07-27-[address] Yennifer Johnson MD Work Phone: -[facility] Start: 05-28-2025 Encounter for genera l adult medical examination without abnormal findings tosin Johnson [facility] Start: 05-28-2025 End: 05-28-[address] Yennifer Johnson MD -[facility] Work Phone: Start: 05-28-2025 End: 05-28-[address] Yennifer Johnson MD [facility] Start: 05-28-2025 End: 05-28-[address] Yennifer Johnson MD Work Phone: -[facility] Start: 05-14-2025 Non-patient / Non-visit Karlie rdz NP-C -[facility] Work Phone: Start: 05-14-2025 ambulatory Karlie Johnson RIVETING MACHINE OPERATOR [employer] Facili ty:[facility] Start: 05-12-2025 Non-patient / Non-visit Dr. Kitchen Of emir SWARTZ -[facility] Start: 05-12-2025 End: 05-12-[address] Yennifer Johnson MD Work Phone: -Cardiovascular Services Start: 05-12-2025 End: 05-12-2025 Patient encounter procedure Karlie Johnson NP-C -[facility] Work Phone: Start: 05-11-2025 Non-patient / Non-visit Dr. Gina SWARTZ -[facility] Work Phone: Start: 05-11-2025 End: 05-12-[address] Yennifer Johnson MD Work Phone: -Pulmonary Services/Neurology Start: 05-11-2025 End: 05-11-2025 Patient encounter procedure Karlie Johnson NP-[facility] -Pulmonary Services/Neurology Work Phone: Start: 05-11-2025 End: 05-11-2025 ambulatory Yennifer Johnson Facility:[facility] Start: 05-02-2025 End: 05-02-[address] Cy Peterson MD -[facility] Work Phone: Start: 05-02-2025 End: 05-02-[address] 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 Yennifer Johnson MD Work Phone: [facility] Start: 04-26-2025 End: 04-26-2025 ambulatory [facility] Facility:[facility] Start: 03-24-2025 End: 03-24-[address] Yennifer Johnson MD Work Phone: [facility] Work Phone: Start: 03-24-2025 End: 03-24-2025 Patient encounter procedure Larry Rodriguez RIVETING MACHINE OPERATOR [employer]-C -Laboratory Work Phone: Start: 03-24-2025 End: 03-24-2025 ambulatory [facility] Facility:[facility] Start: 10-24-2024 End: 10-24-2024 ambulatory [facility] Facility:[facility] Start: 10-21-2024 End: 10-21-2024 ambulatory [facility] Facility:[facility] Start: 04-03-2024 End: 04-04-2024 Subsequent hospital visit by physician Tin West MD Work Phone: [facility] Comment on above: Arthritis of left kn ee (Primary Dx); Urinary tract infection without hematuria, site unspecified Start: 03-21-2024 End: 03-21-2024 ambulatory [facility] Start: 03-21-2024 End: 03-21-2024 Encounter for other preprocedural examination [facility] Start: 03-21-2024 End: 03-21-2024 ambulatory [facility] Start: 03-21-2024 End: 03-21-2024 Encounter for other preprocedural examination [facility] Start: 03-17-2024 ambulatory [facility] Start: 02-25-[address] Odessa Johnson MD Work Phone: [facility] Comment on above: The patient [...] / Non-visit Dr. Roz Johnson Work Phone: [facility] Work Phone: Start: 01-17-2024 Non-patient / Non-visit Dr. Roz Johnson Work Phone: [facility] Start: 01-17-2024 End: 01-17-[address] Yennifer Johnson Work Phone: [facility] Work Phone: Start: 01-17-2024 End: 01-17-[address] Yennifer Johnson Work Phone: [facility] Work Phone: Start: 12-27-2023 Non-patient / Non-visit Dr. Roz Johnson Work Phone: [facility] Work Phone: Start: 12-27-2023 Non-patient / Non-visit Dr. Roz Johnson Work Phone: [facility] Start: 12-27-2023 End: 12-27-[address] Yennifer Johnson Work Phone: [facility]-Cardiovascula r Services Work Phone: Start: 12-20-[address] Elder Johnson Work Phone: [facility]-Cardiovascula [facility] Services Work Phone: Start: 12-16-2023 End: 12-16-[address] Yennifer Johnson Work Phone: [facility] Work Phone: Start: 12-16-2023 End: 12-16-[address] Yennifer Johnson Work Phone: [facility] Work Phone: Start: 10-21-2023 End: 10-21-[address] Yennifer Johnson Work Phone: [facility] Work Phone: Start: 10-21-2023 End: 10-21-[address] Yennifer Johnson Work Phone: [facility]-Outpatient Breast Imaging Work Phone: Start: 10-06-2023 End: 10-06-[address] Yennifer Johnson Work Phone: [facility] Work Phone: Start: 09-27-2023 End: 09-27-2023 Encounter for general adult medical examination without abnormal findings Dr. Yennifer Johnson Work Phone: [facility] Start: 09-27-2023 End: 09-27-[address] Yennifer Johnson Work Phone: [facility] Work Phone: Start: 07-12-2023 End: 07-12-[address] Yennifer Johnson Work Phone: [facility] Work Phone: Start: 07-03-2023 End: 07-03-[address] Yennifer Johnson Work Phone: [facility] Work Phone: Start: 07-03-2023 End: 07-03-[address] Yennifer Johnson Work Phone: [facility]-Laboratory Work Phone: Start: 05-05-2023 End: 05-05-[address] Yennifer Johnson Work Phone: [facility] Work Phone: Start: 05-05-2023 End: 05-05-[address] Yennifer Johnson Work Phone: [facility]-Physical Therapy Work Phone: Start: 04-06-2023 End: 04-06-[address] Yennifer Johnson Work Phone: [facility] Work Phone: Start: 03-26-[address] Robert Johnson Work Phone: [facility]-Physical Therapy Start: 03-16-2023 End: 03-16-[address] Yennifer Johnson Work Phone: [facility] Work Phone: Start: 03-16-2023 End: 03-16-[address] Yennifer Johnson Work Phone: [facility]-Laboratory Start: 03-09-2023 End: 03-09-[address] Yennifer Johnson Work Phone: [facility] Start: 02-26-2023 End: 02-26-[address] Yennifer Johnson Work Phone: [facility] Start: 02-24-2023 Non-patient / Non-visit Dr. Roz Johnson Work Phone: [facility] Start: 02-24-2023 End: 02-24-2023 Admission to same day surgery center Dr. Yennifer Johnson Work Phone: [facility]-Surgical Day Care Start: 02-24-2023 End: 02-24-[address] Yennifer Johnosn Work Phone: [facility] Work Phone: Start: 02-04-2023 End: 02-04-[address] Yennifer Johnson Work Phone: [facility] Start: 02-02-2023 End: 02-02-[address] Yennifer Johnson Work Phone: [facility] Work Phone: Start: 02-02-2023 End: 02-02-[address] Yennifer Johnson Work Phone: [facility] Start: 01-19-2023 End: 01-19-[address] Yennifer Johnson Work Phone: [facility] Start: 10-31-2022 End: 10-31-[address] Yennifer Johnson Work Phone: [facility] Work Phone: Start: 10-31-2022 End: 10-31-[address] Yennifer Johnson Work Phone: [facility]-Laboratory Start: 09-28-2022 End: 09-28-[address] Yennifer Johnson Work Phone: [facility] Work Phone: Start: 09-28-2022 End: 09-28-[address] Yennifer Johnson Work Phone: [facility]-Outpatient Breast Imaging Start: 08-06-2022 End: 08-06-[address] Yennifer Johnson Work Phone: [facility] Start: 07-28-2022 End: 07-28-[address] Yennifer Johnson Work Phone: [facility] Work Phone: Start: 07-28-2022 End: 07-28-[address] Yennifer Johnson Work Phone: [facility]-Ultrasound, [facility] Start: 07-27-2022 End: 07-27-[address] Yennifer Johnson Work Phone: [facility] Start: 07-10-2022 End: 07-10-[address] Yennifer Johnson Work Phone: [facility] Start: 07-01-[address] Elder Johnson Work Phone: [facility]-Cardiovascula r Services Start: 07-01-2022 End: 07-01-2022 Encounter for general adult medical examination without abnormal findings Dr. Yennifer Johnson Work Phone: [facility] Start: 07-01-2022 End: 07-01-2022 Non-patient / Non-visit Dr. Yennifer Johnson Work Phone: [facility] Start: 06-24-2022 End: 06-24-[address] Yennifer Johnson Work Phone: [facility] Work Phone: Start: 06-24-2022 End: 06-24-[address] Yennifer Johnson Work Phone: [facility] Start: 06-09-2022 End: 06-09-[address] Yennifer Johnson Work Phone: [facility]-Laboratory, [facility] Start: 06-09-2022 End: 06-09-[address] Yennifer Johnson Work Phone: [facility] Start: 05-15-2022 End: 05-15-2022 Patient encounter procedure [facility] Start: 05-04-2022 End: 05-04-2022 [facility] Start: 07-08-[facility]21 Patient encounter status [facility] Start: 04-08-2021 Patient encounter status [facility] Procedures Date Procedure Procedure Detail Performing Clinician Start: 08-08-2025 Plain X-ray of finger Dr. Yennifer Johnson MD Work Phone: Start: 08-01-[address] Robert Johnson MD Work Phone: Start: 08-01-[address] Robert Johnson MD Work Phone: Start: 08-01-[address] Yennifer Johnson MD Work Phone: Comment on above: Test Ordered: [id number] JAK2 V617F rfx CALR /[id number](s) [id number] Resultwas developed and its performance characteristicsdetermined by [facility]. It has not been cleared or approvedby the Food and Drug Administration.Specimen Type Comment: ROBERTS Reference Range: .NOT PROVIDEDJAK2 V617F Result Comment ROBERTS Reference Range: .NEGATIVEThe JAK2 V617F mutation is not detected in the providedspecimen of this individual. Results should be interpretedin conjunction with clinical and other laboratory findingsfor the most accurate interpretation.Reflex Comment ROBERTS Reference Range: .Reflex to CALR Mutation Analysis, JAK2 Exon 12-15 MutationAnalysis, and MPL Mutation Analysis is indicated.CALR Result Comment ROBERTS Reference Range: .NEGATIVENo insertions or deletions were detected within theanalyzed region of the calreticulin (CALR) gene.A negative result does not entirely exclude the possibilityof a clonal population carrying CALR gene mutations thatare not covered by this assay. Results should beinterpreted in conjunction with clinical and laboratoryfindings for the most accurate interpretation.MPL Result Comment ROBERTS Reference Range: .NEGATIVENo MPL mutation was identified in the provided specimen ofthis individual. Results should be interpreted inconjunction with clinical and other laboratory findings forthe most accurate interpretation.E12-15 Result Comment ROBERTS Reference Range: .NEGATIVE JAK2 mutations were not detected in exons 12, 13, 14and 15. The G to T nucleotide change encoding the X046Pntzpaogc was not detected. This result does not rule outthe presence of JAK2 mutation at a level below thedetection sensitivity of this assay, the presence of othermutations outside the analyzed region of the JAK2 gene, orthe presence of a myeloproliferative or other neoplasm.Result must be correlated with other clinical data for themost accurate diagnosis.V617F Rfx CALR/MPL/E12-15 Bkgd Comment TG Reference Range: . Molecular testing of blood or bone marrow is useful inthe evaluation of suspected myeloproliferative neoplasms(MPN). Mutations in the JAK2, MPL, and CALR genes arepresent in virtually all MPNs and their presence helpdistinguish benign reactive processes from clonalneoplasms. These mutations are generally consideredmutually exclusive, although concurrent clones have beenreported in rare patients. This test will assess for [id number] (exon 14) mutation first and will reflex toCALR mutation analysis, MPL mutation analysis, and KPN2voji 12 to 15 mutation analysis if the [id number] mutationis negative. The JAK2 (Janus kinase 2) gene encodes fora non-receptor protein tyrosine kinase that activatescytokine and growth factor signaling. The V617F (c.1849G>T) mutation results in constitutive activation of OXA8vrx downstream STAT5 and ERK signaling. The V617F mutationis observed in approximately 95% of polycythemia vera (PV),60% of essential thrombocythemia (ET) and primarymyelofibrosis (PMF). It is also infrequently present(3-5%) in myelodysplastic syndrome, chronicmyelomonocytic leukemia, and other atypical chronic myeloiddisorders. A small percentage of JAK2 mutation positivepatients (3.3%) contain other non-V617F mutations withinexons 12 to 15. In particular, mutations in exon 12 of DTD6dpwi been described in approximately 3% of patients withPV. JAK2 allele burden correlates with clinical phenotype,with low levels of mutant allele characterized bythrombocytosis, intermediate levels with erythrocytosis,and high mutant allele burden correlating with enhancedmyelopoiesis of the BM, leukocytosis, increasing spleensize, and circulating ZC21-fvmeicjv cells. The CALR (Calreticulin) gene encodes for amultifunctional calcium-binding protein involved in manycellular activities such as growth, proliferation,adhesion, and programmed cell . Among patients withJAK2 negative MPNs, CALR are found in approximately 70% ofpatients with JAK2-negative essential thrombocythemia (ET)and 60-88% of patients with JAK2-negative primarymyelofibrosis(PMF). Only a minority of patients(approximately 8%) with myelodysplasia have mutations inthe CALR gene. CALR mutations are rarely detected inpatients with de royal acute myeloid leukemia, chronicmyelogenous leukemia, lymphoid leukemia, or solid tumors.CALR mutations are not detected in polycythemia andgenerally appear to be mutually exclusive with LPG9oejdzyqij and MPL mutations. The majority of mutationalchanges involve a variety of insertion deletion mutationsin exon 9 of the calreticulin gene: approximately 53% ofall CALR mutations are a 52 bp deletion (type-1) while thesecond most prevalent mutation (approximately 32%) containsa 5 bp insertion (type-2). Other mutations (non-type 1 ortype 2) are seen in a small minority of cases. CALRmutations in PMF tend to be with a favorable prognosiscompared to JAK2 V617F mutations, whereas primarymyelofibrosis negative for CALR, JAK2 V617F and MPLmutations (so-called triple negative) is associated with apoor prognosis and shorter survival. The MPL (myeloprolifer (more content not included)... Start: 08-01-2025 Serum inorganic phosphate measurement Dr. Yennifer Johnson MD Work Phone: Start: 08-01-2025 Total iron binding capacity measurement Dr. Yennifer Johnson MD Work Phone: Start: 04-26-2025 Total iron binding capacity measurement Dr. Yennifer Johnson MD Work Phone: Start: 04-04-2024 Urinalysis microscopic panel - Urine Qualitative by Automated Keshawn Shira Graham POLICE WORKER-CERTIFIED [employer]ST CONTROL TECHNICIAN Work Phone: Start: 04-04-2024 Urnls dip stick/tablet reagent auto microscopy Keshawn Shira Graham POLICE WORKER-CERTIFIED PEST CONTROL TECHNICIAN Work Phone: Start: 04-04-2024 Radiologic exam chest single view Keshawn Shira Stevenson POLICE WORKER-CERTIFIED PEST CONTROL TECHNICIAN Work Phone: Start: 04-04-2024 Basic metabolic panel calcium total Tin West MD Work Phone: Start: 04-03-2024 Radiologic examination knee 1/2 views Tin West MD Work Phone: Start: 04-03-2024 PULSE OXIMETRY, CONTINUOUS Israel muñoz MD Work Phone: Start: 10-21-[address] Yennifer Johnson Work Phone: Start: 02-24-[address] Yennifer Johnson Work Phone: Start: 02-02-2023 MRI of joint of lower extremity Dr. Regis Johnson Work Phone: Start: 09-28-[address] Yennifer Johnson Work Phone: Start: 08-06-2022 Radiologic examination of knee Dr. Robert Johnson Work Phone: Start: 07-28-[address] Yennifer Johnson Work Phone: Plan of Treatment Date Care Activity Detail Author Start: 01-23-2026 Lactate dehydrogenas e measurement [facility] Start: 08-16-2025 Non-patient / Non-visit Non-pa tient / Non-visit -[facility] Work Phone: Start: 08-15-2025 Non-patient / Non-visit Non-pa tient / Non-visit -[facility] Start: 08-15-2025 Radionuclide imaging of perfusion of myocardium under exercise stress Nuclear Stress Test - Treadmil [facility] Start: 08-15-2025 Patient encounter procedure [facility] Work Phone: Start: 08-01-2025 End: 08-01-2025 Lactate dehydrogenase measurement [facility] Start: 08-01-2025 End: 08-01-2025 Procedure [facility] Start: 08-01-2025 Reticulocyte count [facility] Start: 08-01-2025 End: 08-01-2025 Serum inorganic phosphate measurement [facility] Start: 08-01-2025 End: 08-01-2025 Vitamin B12 measurement [facility] Start: 08-01-2025 C reactive protein [Mass/volume] in Serum or Plasma [facility] Start: 08-01-2025 Comprehensive metabo lic 2000 panel - Serum or Plasma [facility] Start: 08-01-2025 Ferritin [Mass/volum e] in Serum or Plasma [facility] Start: 08-01-2025 Iron and Iron bindin g capacity panel - Serum or Plasma [facility] Start: 08-01-2025 Magnesium measurement [facility] Start: 08-01-2025 [facility] Start: 07-27-2025 Radionuclide imaging of perfusion of myocardium under exercise stress [facility] Start: 07-27-2025 End: 07-27-2025 Evaluation of diagnostic study results [facility] Start: 06-25-2024 Influenza vaccination Influenz a Vaccine (Season Ended) [facility] Start: 04-11-2024 End: 04-04-2025 Basic metabolic 2000 panel - Serum or Plasma Basic metabolic panel Lab Routine Arthritis of left knee Urinary tract infection without hematuria, site unspecified Expected: 04/11/2024 (Approximate), Expires: 04/04/2025 [facility] Work Phone: Comment on above: Expected: 04/11/2024 (Approximate), Expires: 04/04/2025 Start: 04-11-2024 End: 04-04-2025 CBC panel - Blood by Automated count CBC Lab Routine Arthritis of left knee Urinary tract infection without hematuria, site unspecified Expected: 04/11/2024 (Approximate), Expires: 04/04/2025 [facility] Work Phone: Comment on above: Expected: 04/11/2024 (Approximate), Expires: 04/04/2025 Start: 12-16-2023 Evaluation of diagno stic study results [facility] Start: 06-25-2023 COVID-19 Vaccine () COVID-19 Vaccine () [facility] Start: 03-09-2023 Patient referral [facility] Work Phone: Start: 02-24-2023 Anes open/surg arthroscopic proc knee joint nos ANESTH KNEE JOINT SURGERY [facility] Start: 02-24-2023 Arthrs kne surg w/meniscectomy med/lat w/shvg KNEE ARTHROSCOPY/SURGERY [facility] Start: 02-24-2023 Injection aa&/strd f emoral nerve NJX AA&/STRD FEMORAL NRV IMG [facility] Start: 02-24-2023 Notification of physician [facility] Start: 02-24-[address] [facility] Start: 02-24-2023 Application of ice c ollar, cap or bag [facility] Start: 02-24-2023 Assessment of risk o f venous thromboembolism [facility] Start: 02-24-2023 Catheterization of vein [facility] Start: 02-24-2023 Deep breathing and coughing exercises [facility] Start: 02-24-2023 Following clinical p athway protocol [facility] Start: 02-24-2023 Gait training procedure [facility] Start: 02-24-2023 Incentive spirometry [facility] Start: 02-24-2023 Introduction of urin jose c catheter [facility] Start: 02-24-2023 End: 02-24-2023 Patient discharge [facility] Start: 02-24-2023 Patient education [facility] Start: 02-24-2023 Provision of activit y privileges [facility] Start: 02-24-2023 Taking patient vital signs [facility] Start: 02-24-2023 Vital signs measurements [facility] Start: 02-24-2023 End: 02-24-2023 [facility] Start: 02-24-2023 Medication education [facility] Start: 06-09-2022 Patient referral [facility] Work Phone: Start: 2020 RSV patient s and/or patients aged 60+ years (1 - 1-dose 60+ series) RSV patients and/or patients aged 60+ years (1 - 1-dose 60+ series) [facility] Start: 01-14-2016 DTaP/Tdap/Td Vaccine s (2 - Tdap) DTaP/Tdap/Td Vaccines (2 - Tdap) [facility] Start: 2010 Zoster Vaccines (1 of 2) Zoste r Vaccines (1 of 2) [facility] Start: 2000 Screening for malign ant neoplasm of breast Mammogram [facility] Start: 1978 Diabetes mellitus screening Diabetes Screening [facility] Start: 1978 Hepatitis C screening Hepatitis C Sc reening [facility] Start: 1966 Pneumococcal Vaccine : 65+ Years (1 of 2 - PCV) Pneumococcal Vaccine: 65+ Years (1 of 2 - PCV) [facility] Start: 1966 Pneumococcal Vaccine : Pediatrics (0 to 5 Years) and At-Risk Patients (6 to 64 Years) (1 of 2 - PCV) Pneumococcal Vaccine: Pediatrics (0 to 5 Years) and At-Risk Patients (6 to 64 Years) (1 of 2 - PCV) [facility] Start: 1961 MMR Vaccines (1 of 1 - Standard series) MMR Vaccines (1 of 1 - Standard series) [facility] Start: 1960 HIV screening HIV Screening [facility] Start: 1960 Lipid panel Lipid Panel [facility] Start: 1960 Screening for malign ant neoplasm of colon [facility] Start: 1960 Yearly Adult Physical Yearly Adult P hysical [facility] 24 Hour ECG [facility] Alanine aminotransfe rase [Enzymatic activity/volume] in Serum or Plasma [facility] Albumin [Mass/volume ] in Serum or Plasma [facility] Alkaline phosphatase [Enzymatic activity/volume] in Serum or Plasma [facility] Anion gap in Serum o r Plasma [facility] End: 04-04-2024 Bacteria identified in Urine by Culture [facility] Work Phone: Comment on above: Once (Lab) for 1 Occ urrences starting 04/04/2024 until 04/04/2024 Bilirubin, total measurement [facility] BUN/Creatinine ratio [facility] C reactive protein [Mass/volume] in Serum or Plasma [facility] C reactive protein [Mass/volume] in Serum or Plasma [facility] Calcium [Mass/volume ] in Serum or Plasma [facility] Carbon dioxide, tota l [Moles/volume] in Central venous blood [facility] Cardiac event recording [facility] Work Phone: CBC W Auto Different ial panel - Blood [facility] CBC W Auto Different ial panel - Blood [facility] CBC W Auto Different ial panel - Blood [facility] Comprehensive metabo lic 1999 panel - Serum or Plasma [facility] Comprehensive metabo lic 1999 panel - Serum or Plasma [facility] Comprehensive metabo lic 1999 panel - Serum or Plasma [facility] Creatinine [Mass/vol ume] in Serum or Plasma [facility] Electrocardiogram, 1 2-lead PRN ACS symptoms Electrocardiogram, 12-lead PRN ACS symptoms ECG Routine As needed until discontinued starting 04/03/2024 [facility] Work Phone: Comment on above: As needed until disc ontinued starting 04/03/2024 Electrocardiogram, 1 2-lead PRN ACS symptoms Electrocardiogram, 12-lead PRN ACS symptoms ECG Routine 04/04/2024 7:42 AM EDT [facility] Work Phone: Erythrocyte sediment ation rate [facility] Erythrocyte sediment ation rate [facility] End: 04-04-[address]ube [facility] Work Phone: Comment on above: Once for 1 Occurrenc es starting 04/04/2024 until 04/04/2024 Ferritin [Mass/volum e] in Serum or Plasma [facility] Ferritin [Mass/volum e] in Serum or Plasma [facility] Folate [Moles/volume ] in Serum or Plasma [facility] Folate [Moles/volume ] in Serum or Plasma [facility] End: 04-04-2024 Rondon Catheter Removal Rodnon Catheter Removal Procedures Routine Once for 1 Occurrences starting 04/04/2024 until 04/04/2024 [facility] Work Phone: Comment on above: Once for 1 Occurrenc es starting 04/04/2024 until 04/04/2024 Glucose [Mass/volume ] in Serum or Plasma [facility] End: 04-03-2024 Incentive spirometry Instruct Incentive spirometry Instruct Respiratory Care Routine Once for 1 Occurrences starting 04/03/2024 until 04/03/2024 [facility] Service [facility] Work Phone: Comment on above: Once for 1 Occurrenc es starting 04/03/2024 until 04/03/2024 Iron [Mass/mass] in Unspecified specimen [facility] Iron and Iron bindin g capacity panel - Serum or Plasma [facility] Iron and Iron bindin g capacity panel - Serum or Plasma [facility] Iron saturation [Mas s Fraction] in Serum or Plasma [facility] Lactate dehydrogenas e measurement [facility] Magnesium measurement [facility] Magnesium measurement [facility] Measurement of renal function [facility] MG Breast - bilatera l Screening [facility] Work Phone: Patient Education [facility] Work Phone: Patient referral [facility] Work Phone: Potassium measurement [facility] Procedure [facility] Procedure [facility] Reticulocyte count [facility] Reticulocyte count [facility] Serum chloride measurement [facility] Serum inorganic phos phate measurement [facility] Serum inorganic phos phate measurement [facility] Sodium measurement [facility] Total iron binding capacity measurement [facility] Total protein measurement [facility] Urea nitrogen [Mass/volume] in Serum or Plasma [facility] End: 04-04-2024 Urinalysis complete W Reflex Culture panel - Urine [facility] Service Area Work Phone: Comment on above: Once (Lab) for 1 Occ urrences starting 04/04/2024 until 04/04/2024 Carotid arteries [facility] Carotid arteries [facility] Vitamin B12 measurement [facility] Vitamin B12 measurement [facility] Immunizations Immunization Date Immunization Notes Care Provider Fa cility 07-27-2025 Seasonal trivalent influenza vaccine, adjuvanted, preservative free Dr. Yennifer Johnson MD Work Phone: [facility] 07-29-2024 influenza, seasonal, injectable, preservative free Dr. Yennifer Johnson MD Work Phone: [facility] 07-29-2024 Pfizer Covid-19 (Comirnaty) Dr. Yennifer Johnson MD Work Phone: [facility] 11-20-2023 Influenza, injectabl e, Madin [place] Canine Kidney, preservative free, quadrivalent Dr. Yennifer Johnson MD Work Phone: [facility] 11-20-2023 Pfizer Covid-19 (Comirnaty) Dr. Yennifer Johnson MD Work Phone: [facility] 08-31-2022 Seasonal, quadrivalent, recombinant, injectable influenza vaccine, preservative free Dr. Yennifer Johnson MD Work Phone: [facility] 08-31-2022 influenza virus vaccine, unspecified formulation Tin West MD Work Phone: [facility] Work Phone: 12-20-2021 Covid (Pfizer) Dr. Yennifer Johnson MD Work Phone: [facility] 06-18-2021 Covid (Pfizer) Dr. Yennifer Johnson MD Work Phone: [facility] 06-17-2021 Covid (Pfizer) [facility] 05-28-2021 Covid (Pfizer) Dr. Yennifer Johnson MD Work Phone: [facility] 07-08-2020 Seasonal, quadrivalent, recombinant, injectable influenza vaccine, preservative free Dr. Yennifer Johnson MD Work Phone: [facility] 08-29-2018 influenza, injectabl e, quadrivalent, preservative free Dr. Yennifer Johnson MD Work Phone: [facility] 07-24-2017 influenza, injectabl e, quadrivalent, preservative free Dr. Yennifer Johnson MD Work Phone: [facility] 08-05-2016 influenza, injectabl e, quadrivalent, preservative free Dr. Yennifer Johnson MD Work Phone: [facility] 08-21-2015 influenza, seasonal, injectable, preservative free Dr. Yennifer Johnson MD Work Phone: [facility] Payers Date Payer Category Payer Self-pay [id number] 2023 Unknown [id number] 2017 Unknown [id number] 2005 Unknown [id number] 1960 Unknown [id number] 2.16.8 [id number] 1960 Unknown [id number] 2.16.8 40.1.837548.3.579.2.1244 1960 Unknown [id number] 2.16.8 40.1.317579.3.579.2.1244 Medicare [id number] 48c [id number] Unknown [id number] 2.16.8 40.1.401667.3.579.2.462 Unknown [id number] 2.16.8 40.1.473658.3.579.2.462 Unknown [id number] 2.16.8 40.1.326688.3.579.2.462 Unknown [id number] 2.16.8 40.1.594323.3.579.2.462 Unknown [id number] 2.16.8 40.1.276327.3.579.2.462 Unknown [id number] 2.16.8 40.1.299214.3.579.2.462 Unknown [id number] 2.16.8 40.1.921096.3.579.2.462 Unknown [id number] 2.16.8 40.1.836664.3.579.2.462 Unknown [id number] 2.16.8 40.1.639272.3.579.2.462 Unknown [id number] 2.16.8 40.1.474479.3.579.2.462 Unknown [id number] 2.16.8 40.1.098069.3.579.2.462 Unknown [id number] 2.16.8 40.1.944851.3.579.2.462 Unknown [id number] 2.16.8 40.1.152935.3.579.2.462 Unknown [id number] 2.16.8 40.1.241706.3.579.2.462 Unknown [id number] 2.16.8 40.1.149772.3.579.2.462 Unknown [id number] 2.16.8 40.1.937601.3.579.2.462 Unknown [id number] 2.16.8 40.1.785594.3.579.2.462 Unknown [id number] 2.16.8 40.1.143079.3.579.2.462 Unknown [id number] 2.16.8 40.1.417710.3.579.2.462 Unknown [id number] 2.16.8 40.1.617645.3.579.2.462 Unknown [id number] 2.16.8 40.1.148265.3.579.2.462 Unknown [id number] 2.16.8 40.1.799941.3.579.2.462 Unknown [id number] 2.16.8 40.1.952347.3.579.2.462 Unknown [id number] 2.16.8 40.1.902964.3.579.2.462 Social History Date Type Detail Facility Start: 05-04-2022 End: 12-16-2023 Tobacco smoking status [facility] Unknown if ever smoked [facility] Start: 07-18-2019 Non-smoker [facility] Start: 1960 Sex Assigned At Female [facility] Start: 12-16-2023 End: 03-21-2024 Tobacco smoking status NHIS Ex-smoker [facility] Work Phone: Start: 02-23-1980 End: 02-23-1996 History of tobacco use Current smoker [facility] Work Phone: Start: 02-23-1980 End: 02-23-1996 History of tobacco use Cigarette Smoker [facility] Work Phone: Start: 03-21-2024 End: 04-03-2024 Cigarettes smoked current (pack per day) - Reported 0.4 [facility] Start: 03-21-2024 Tobacco use and exposure Smokeless tobacco non-user [facility] Work Phone: Start: 04-03-2024 Alcoholic beverage intake Current drinker of alcohol (finding) [facility] Work Phone: Start: 04-03-2024 B1300 Health Literacy [facility] How often do you nee d to have someone help you when you read instructions, pamphlets, or other written material from your doctor or pharmacy [SILS] Never [facility] Has the electric, gas, oil, or water company threatened to shut off services in your home in past 12Mo No [facility] Work Phone: Are you now , , , , never or living with a partner? [facility] Work Phone: How often to you hav e a drink containing alcohol? Never [facility] Work Phone: Do you feel stress - tense, restless, nervous, or anxious, or unable to sleep at night because your mind is troubled all the time - these days [OSQ] Not at all [facility] Work Phone: (I/We) worried whether (my/our) food would run out before (I/we) got money to buy more. Never true [facility] Work Phone: Start: 03-21-2024 Alcohol Comment Glass of wine maybe once a month [facility] Work Phone: Start: 03-19-2024 Gender identity Identifies as female gender (finding) [facility] Work Phone: Start: 03-24-2024 End: 04-03-2024 Exposure to SARS-CoV-2 (event) Not sure [facility] NEGATED: Highlighted row [facility] Medical Equipment Procedure Code Equipment [...] Patella, Triathl on, Asymmetric, Size A32 - [id number] Start: 04-03-2024 Component, Ps Femoral, P3, Beaded W/Pa, Left - [id number] Start: 04-03-2024 Baseplate, Triathlon Tritanium, Size 3, 44mm - [id number] Start: 04-03-2024 Size 3, 11mm Triathlon Ps Tibial Insert - [id number] Start: 04-03-2024 Goals Date Patient Goal Desired Activity /State Mental Status Date Assessment Result Facility 02-24-2023 Cognitive function Level Of Cons ciousness Awake;Appropriate;Follows Commands;Drowsy [facility] Work Phone: 02-24-2023 Cognitive function Voice/Name [facility] Work Phone: Clinical Notes 02-24-2023 to 08-08-2025 Note Date & Type Note Facility 08-08-2025 Progress note [facility] 08-08-2025 Radiology Diagnostic study note [facility] Imaging Services [address] [place], [place] [address] Finger(s) Min 2 Views MR#: [id number] Acct: [id number] Name: LEEANN CROCKETT Rep #: [id number] : 1960 F 65 From: Chandler Garcia MD PCP: Dr. Yennifer Johnson MD Status: D EP AMB Study:Finger(s) Min 2 Views Date of Exam: 08/08/25 Exam# [id number] Ordering Dr: Cy Maldonado DO PROCEDURE: FINGER(S) [...] DEGENERATIVE OSTEOARTHROSIS. NO ACUTE FINDINGS. Reading [facility] CC: Dr. Yennifer Johnson MD; Dr. Cy Maldonado DO ~ Sports Physiologist: Signed [facility] 08-01-2025 Progress note [facility] 05-02-2025 Progress note [facility] 04-26-2025 Progress note Note Date/Time April 26, 2025 1:29pm [facility] [address] [place] [address]. [address] [place] [address] OFFICE VISIT Date of Service: 04/26/25 MR#: [id number] Acct: [id number] Name: LEEANN CROCKETT Rep #: [id number] : 1960 Provider: GINO Johnson Age/Sex: 65/F Location: [facility] Status: Signed HPI HPI History of Present [...] Monitor Intake Visit Reasons: 1 Y FU Environmental Monitoring Technician Required: No Accompanied by: Self Is [...] (Reviewed 04/26/25 @ 13:09 by Karlie Johnson RIVETING MACHINE OPERATOR AUTOMATIC, RIVETING MACHINE OPERATOR AUTOMATIC-C) History of knee surgery H/O arthroscopy of left knee History of cardiac catheterization Hx of colonoscopy History of bilateral breast reduction surgery History of left heart catheterization (05/25/18) History of lumpectomy of left breast History of partial hysterectomy Hx of tonsillectomy H/O tubal ligation Family History (Reviewed 04/26/25 @ 13:09 by Karlie Johnson RIVETING MACHINE OPERATOR AUTOMATIC, RIVETING MACHINE OPERATOR AUTOMATIC-C) Father CVA (cerebral vascular accident) Diabetes Hypertension [...] Leonarda CI: 3.03 PW: 08/03 7 PA: /8 14 RV: 27/-1 5 RA: 01/29 5 [...] updated, as necessary. Follow Up: 3 Months (RIVETING MACHINE OPERATOR AUTOMATIC/PA) Coding Level of Care Code Off vis,est,level 4 Diagnoses Paroxysmal atrial fibrillation I48.0 Mixed hyperlipidemia E78.2 Palpitations R00.2 Dyspnea on exertion R06.09 Coding Level of Care Code Off vis,est,level 4 Diagnoses Paroxysmal atrial fibrillation I48.0 Mixed hyperlipidemia E78.2 Palpitations R00.2 Dyspnea on exertion R06.09 Clinical Quality Measures Falls Risk Screening/Assistive Devices Have you fallen in the past year?: No 04/26/25 7469 <Electronically signed by Karlie Johnson NP RIVETING MACHINE OPERATOR AUTOMATIC-C> Date _ Karlie [place] Cosigner Signature: Date (if applicable) CC: Dr. Yennifer Johnson MD ~ [facility] Work Phone: 1(671) 344-363807-03-2025 Evaluation note* Diagnosis Onset Date Resolution Status Admit Date Dyspnea on exertion acute April 26, 2025 12:56pm Paroxysmal atrial fibrillation acute April 26, 2025 12:56pm Mixed hyperlipidemia chronic April 26, 2025 12:56pm Palpitations chronic April 26 12:56pm [facility] Work Phone: 1([phone]) [phone] Evaluation note* Diagnosis Onset Date Resolution Status Admit Date Dyspnea on exertion acute April 26, 2025 12:56pm Paroxysmal atrial fibrillation acute April 26, 2025 12:56pm Mixed hyperlipidemia chronic April 26, 2025 12:56pm Palpitations chronic April 26 12:56pm Thrombocytosis chronic May 02, 2025 8:49am [facility] Work Phone: 1([phone]) 280-943507-03-2025 Evaluation note* Diagnosis Onset Date Resolution Status [...] May 28 7:40am Thrombocytosis chronic May 7:40am [facility] Work Phone: 1([phone]) 221-879007-03-2025 Evaluation note* Diagnosis Onset Date Resolution Status [...] Octob er 2024 8:45am Dizziness chronic July 27 8:45am Mixed hyperlipidemia chronic Octo damian 2024 8:45am Palpitations chronic July 27, 2025 8:45am Paroxysmal atrial fibrillation chron ic July 27, 2025 8:45am [facility] Work Phone: 1([phone]) 575-757507-03-2025 Evaluation note* Diagnosis Onset Date Resolution Status Admit Date Dyspnea on exertion acute April 26, 2025 12:56pm Mixed hyperlipidemia chronic April 26, 2025 12:56pm Palpitations chronic April 26 12:56pm Paroxysmal atrial fibrillation chron ic April 26, 2025 12:56pm Thrombocytosis chronic May 02, 2025 8:49am Preventative health care acute May 28, 2025 7:40am Anxiety and depression chronic [facility] 2024 7:40am Essential (primary) hypertension chronic May [...] chronic July 27 8:45am Mixed hyperlipidemia chronic Octo damian 2024 8:45am Palpitations chronic July 27, 2025 8:45am Paroxysmal atrial fibrillation chron ic July 27, 2025 8:45am Thrombocytosis chronic July 10:00am [facility] Work Phone: 1([phone]) 519-657907-03-2025 Evaluation note* Diagnosis Onset Date Resolution Status [...] chronic July 27 8:45am Mixed hyperlipidemia chronic 2024 8:45am Palpitations chronic July 27, 2025 8:45am Paroxysmal atrial fibrillation chron ic July 27, 2025 8:45am Thrombocytosis chronic July 10:00am Arthritis of finger acute 2024 10:51am Mucous cyst of digit of hand acute August 08, 2025 10:51am [facility] Work Phone: 1([phone]) 163-535307-03-2025 Progress [facility] [place] [address] OFFICE VISIT Date of Service: 04/26/25 MR#: [id number] Acct: [id number] Name: LEEANN CROCKETT Rep #: [id number] : 1960 Provider: GINO Johnson Age/Sex: 65/F Location: [facility] Status: Signed HPI HPI History of Present [...] Monitor Intake Visit Reasons: 1 Y FU Environmental Monitoring Technician Required: No Accompanied by: Self Is [...] (Reviewed 04/26/25 @ 13:09 by Karlie Johnson RIVETING MACHINE OPERATOR AUTOMATIC, RIVETING MACHINE OPERATOR AUTOMATIC-C) High cholesterol Tear of medial meniscus of [...] (Reviewed 04/26/25 @ 13:09 by Karlie Johnson RIVETING MACHINE OPERATOR AUTOMATIC, RIVETING MACHINE OPERATOR AUTOMATIC-C) History of knee surgery H/O arthroscopy of left knee History of cardiac catheterization Hx of colonoscopy History of bilateral breast reduction surgery History of left heart catheterization (05/25/18) History of lumpectomy of left breast History of partial hysterectomy Hx of tonsillectomy H/O tubal ligation Family History (Reviewed 04/26/25 @ 13:09 by Karlie Johnson RIVETING MACHINE OPERATOR AUTOMATIC, RIVETING MACHINE OPERATOR AUTOMATIC-C) Father CVA (cerebral vascular accident) Diabetes Hypertension High cholesterol Mother Breast cancer Cancer Diabetes Hypertension Grandmother CAD (coronary artery disease) Myocardial infarction, Onset Age: 68 Brother Diabetes Aunt Cancer Social History (Reviewed 04/26/25 @ 13:09 by Karlie Johnson RIVETING MACHINE OPERATOR AUTOMATIC, RIVETING MACHINE OPERATOR AUTOMATIC-C) Smoking Status: Former smoker quit date: 06/25/96 [...] PW: 08/03 7 PA: 15/06 14 RV: /-1 5 RA: 01/29 5 PVR: 92 SVR: [...] updated, as necessary. Follow Up: 3 Months (RIVETING MACHINE OPERATOR AUTOMATIC/PA) Coding Level of Care Code Off vis,est,level 4 Diagnoses Paroxysmal atrial fibrillation I48.0 Mixed hyperlipidemia E78.2 Palpitations R00.2 Dyspnea on exertion R06.09 Coding Level of Care Code Off vis,est,level 4 Diagnoses Paroxysmal atrial fibrillation I48.0 Mixed hyperlipidemia E78.2 Palpitations R00.2 Dyspnea on exertion R06.09 Clinical Quality Measures Falls Risk Screening/Assistive Devices Have you fallen in the past year?: No 04/26/25 1329 RIVETING MACHINE OPERATOR AUTOMATIC RIVETING MACHINE OPERATOR AUTOMATIC-C> Date _ Karlie Johnson NP RIVETING MACHINE OPERATOR AUTOMATIC-C Raimundo Signature: Date (if applicable) CC: Dr. Yennifer Johnson MD ~ [facility]06-11-2024 History of Present illness Narrative* Elizabeth Song, [...] VCs for safe sequencing provided. Outcome Measures: [facility] Basic Mobility Turning from your [...] completion of functional mobility. * Keshawn Stevenson, [place]-CERTIFIED PEST CONTROL TECHNICIAN - 04/04/2024 11:59 AM EDT Celeste Crockett [...] am INDICATION: Signs/Symptoms:leukocytosis. COMPARISON: None. ACCESSION NUMBER(S): [id number] ORDERING CLINICIAN: KESHAWN STEVENSON TECHNIQUE: Single AP view chest FINDINGS: Cardiac silhouette is within normal limits. No infiltrate or effusion identified. Visualized osseous structures demonstrate glenohumeral joint osteoarthritis bilaterally. Impression: 1. No acute process MACRO: None Signed by: Rafael Shepard 04/04/2024 9:46 AM Dictation workstation: [id number] Physical Exam Vitals reviewed. Constitutional: Appearance: Normal [...] am INDICATION: Signs/Symptoms:leukocytosis. COMPARISON: None. ACCESSION NUMBER(S): [id number] ORDERING CLINICIAN: KESHAWN STEVENSON TECHNIQUE: Single AP view chest FINDINGS: Cardiac silhouette is within normal limits. No infiltrate or effusion identified. Visualized osseous structures demonstrate glenohumeral joint osteoarthritis bilaterally. 1. No acute process MACRO: None Signed by: Rafael Shepard 04/04/2024 9:46 AM Dictation workstation:[id number] XR knee left 1-2 views Result Date: 04/03/2024 Interpreted By: Herman Marquez, STUDY: XR KNEE LEFT 1-2 VIEWS; 04/03/2024 10:27 am INDICATION: Signs/Symptoms:Post-op knee. COMPARISON: None. ACCESSION NUMBER(S): [id number] ORDERING CLINICIAN: TIN WEST FINDINGS: Components of left knee arthroplasty are in anatomic alignment. Postoperative soft tissue gas. New left knee arthroplasty in anatomic alignment. MACRO: None Signed by: Herman Marquez 04/03/2024 11:33 AM Dictation workstation: [id number] Assessment/Plan Principal Problem: Arthritis of left knee [...] Yellow, Dark-Yellow Appearance, Urine Clear Clear Specific [place], Urine 1.011 1.005 - 1.035 pH, Urine [...] to full dose. Tin West MD * Irene No, SENIOR LITIGATION PARALEGAL - 04/04/2024 10:49 AM EDT Occupational Therapy [...] Up in chair, Alarm off, caregiver present (technology education teacher entering) OT Assessment Results: Decreased ADL status, [...] gown LE Dressing LE Dressing Adaptive Equipment: Mobile Disc Jockey, Sock aide Sock Level of Assistance: Setup, [...] fair balance during grooming tasks sinkside Outcome Measures:[facility] Daily Activity Putting on and [...] 1: VCs for safe sequencing Outcome Measures: [facility] Basic Mobility Turning from your [...] RADHA Quan - 04/04/2024 8:45 AM EDT [facility] sent referral information to pts choice [facility] via [employer] on 04/03, have not received any response. [facility] faxed information to them at [phone] this morning, contact information included on facesheet with request for response. Update: [facility] confirmed they can accept the pt. Hospitalist CERTIFIED PEST CONTROL TECHNICIAN able to input corrected homecare order, this along with other dc information was sent to [facility]. 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 [facility] received message from hospitalist RIVETING MACHINE OPERATOR AUTOMATIC with information on which homecare agency pt would like at [place]. [facility] called pts room and spoke with [...] PCP is Dr Johnson, prescriptions filled through [facility] [address] [facility], [facility]. Pt confirmed she would like [facility], referral sent via careport, await response. [...] expects to be discharged to: Home with [facility] Financial Resource Strain How hard is [...] steady place to sleep or slept in [place] (including now)? 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 documented in this [facility] Work Phone: 1(591) 234-127006-11-2024 Hospital course Narrative* Tin West MD - [...] appointments. Tin West MD documented in this [facility] Work Phone: 1(992) [phone] Nurse Note* Pao Foley RN - 04/04/2024 7:19 AM EDT Assumed care of patient. Patient is resting in bed, and talking on her phone. She was made aware that therapy would be in to work with her this morning. She will be up to a chair. Call light is in place will continue to monitor. [facility]06-11-2024 Nurse Note* Pao Foley RN - [...] iv fluids per order documented in this [facility] Work Phone: 1(184) 166-822206-11-2024 Plan of care note* Care Plan - [...] ability to cope with hospitalization/illness Outcome: Progressing [facility] Work Phone: 1([phone]) 713-485706-11-2024 Miscellaneous Notes* Care Plan - Alyssa Graham [...] detailed initial consult and physical exam in [place] by Larisa Stevenson. I talked in detail with CERTIFIED PEST CONTROL TECHNICIAN regarding assessment and plan. I agree with [...] dermatology disease. Atrial fibrillation Patient see regular trackman. Continue with flecainide, Cardizem ,Eliquis. Left knee osteoarthritis Status post left total knee arthroplasty Continue with pain medication Physical therapy to evaluate her Hypertension Fairly controlled Patient is on Cardizem Hyperlipidemia Patient lives in [place]. Discussed with care coordination on the case [...] 10:00 AM EDT Patient received to [facility] [place] #3 from OR. Anesthesia at bedside. Report received. Initial assessmentcomplete. VSS on Material Processor. Patient resting appears comfortable. No signs or symptoms of painnoted. * Op Note - Tin West MD - 04/03/2024 8:24 AM EDT Arthroplasty Resurfacing Total Knee 36181 - NE ARTHRP KNE CONDYLE&PLATU MEDIAL&LAT COMPARTMENTS Operative Note Date: 04/03/2024 OR Location: [facility] Name: Leeann Ordonez", : 1960, Age: 64 y.o., , Sex: female PRE Diagnosis Left knee osteoarthritis POST Diagnosis Same Procedures Left total knee arthroplasty subvastus approach Surgeons * Tin West - Primary Resident/Fellow/Other Night Club Manager: nitza Snowden joe Procedure Summary Implants: Styker Cemented Triathlon Total Knee: Femur size 3 posterior stabilized, size 3 primary tibial baseplate, size A32 N2Vac Patella, size 3x11 posterior stabilized N2Vac tibial bearing insert Anesthesia: LMA with adductor canal block ASA: III Anesthesia Staff: Anesthesiologist: Israel Corea MD FONDANT MACHINE OPERATOR: Nikki Alex APRN-FONDANT MACHINE OPERATOR Estimated Blood Loss: 50 mL Specimen: No specimens collected Staff: Detailer Pharmaceuticals: Katy Rodgers RN Scrub Person: Tesfaye Wright; Cy Sorto; Nikki Gr Drains and/or Catheters: 2 Hemovac Tourniquet Times: Total Tourniquet Time Documented: Thigh (Left) - 49 minutes Total: Thigh (Left) - 49 minutes Findings: Patient had severe degenerative changes with medial joint space [id number]-ao-ozsd apposition and peripheral osteophyte formation. Absent ACL. [...] tracking and varus valgus stability throughout. The [place] patella tracked normally. I everted the patella [...] WELL. PHOTO TO CHART [facility] Work Phone: 1([phone]) 264-363606-10-2024 Nurse Note* Alyssa Graham RN - 04/03/2024 7:30 PM EDT Assumed care of pt this evening, sitting up in bed, at bedside, denies pain, dressing to left knee c/d/I, hemovac with small amt bloody drainage noted, iv fluids per order [facility]06-10-2024 Note* Treatment Plan - Chante Ma MD - 04/03/2024 3:33 PM EDT Patient was seen and examined by me personally. He is see detailed initial consult and physical exam in [place] by Larisa Stevenson. I talked in detail with CERTIFIED PEST CONTROL TECHNICIAN regarding assessment and plan. I agree with [...] dermatology disease. Atrial fibrillation Patient see regular trackman. Continue with flecainide, Cardizem ,Eliquis. Left knee osteoarthritis Status post left total knee arthroplasty Continue with pain medication Physical therapy to evaluate her Hypertension Fairly controlled Patient is on Cardizem Hyperlipidemia Patient lives in [place]. Discussed with care coordination on the case plan to discharge with home health care. Discussed with her family present in the room. [facility] Work Phone: 1([phone]) [phone] Plan of care note* Care Plan - Joanne Shetty RN - 04/03/2024 2:04 PM EDT The patient's goals for the shift include No pain The clinical goals for the shift include No pain Over the shift, the patient did not make progress toward the following goals. [facility] Work Phone: 1([phone]) [phone] Consult note* SANDOVAL Marcos - 04/03/2024 1:51 [...] and aortic valve insufficiency who presented to [facility] for an anticipated left total [...] or vomiting. No abdominal discomfort. Admitted to [facility]. Medicine consulted for management of [...] General: Well developed. NAD. HEENT: PERRL. EOMI. [place] conjunctiva. Trachea midline. Cardiovascular: S1, S2. RRR. [...] INDICATION: Signs/Symptoms:Post-op knee. COMPARISON: None. ACCESSION NUMBER(S): [id number] ORDERING CLINICIAN: TIN WEST FINDINGS: Components of left knee arthroplasty are in anatomic alignment. Postoperative soft tissue gas. New left knee arthroplasty in anatomic alignment. MACRO: None Signed by: Herman Marquez 04/03/2024 11:33 AM Dictation workstation: [id number] Assessment/Plan Atrial fibrillation Eliquis resumed per orthopedic [...] consult. Will continue to follow. SANDOVAL Marcos [facility] Work Phone: [phone]) [phone] Consult note* SANDOVAL Marcos - 04/03/2024 1:51 [...] and aortic valve insufficiency who presented to [facility] for an anticipated left total [...] or vomiting. No abdominal discomfort. Admitted to [facility]. Medicine consulted for management of chronic medical conditions, HTN, A fib, HLD. Past Medical History She has a past medical history of Anxiety, Aortic valve insufficiency, Arthritis, Asthma ([facility]),Atrial fibrillation (Multi), Easy bruising, Heart disease [...] pulido Cancer Mother Brianda pulido Diabetes Mother Briandamendy pulido Hypertension Mother Brianda pulido Miscarriages / Stillbirths Mother Brianda pulido Hearing loss Father Silvestre pulido Heart disease Father Silvestre pulido Hypertension Father Silvestre pulido Kidney disease Father Silvestre duboison Stroke Father Silvestre pulido Arthritis Father Silvestre pulido Heart disease Brother Mian pulido Allergies Bee venom protein (honey bee), Codeine, Hydromorphone, Morphine, Oxycodone, Propoxyphene, Wasp venom, Atorvastatin calcium, Grass pollen, House dust, Mold, Rosuvastatin calcium, Simvastatin, and Niacin Review of Systems As per HPI. At least 10 systems reviewed and are otherwise negative Physical Exam General: Well developed. NAD. HEENT: PERRL. EOMI. [place] conjunctiva. Trachea midline. Cardiovascular: S1, S2. RRR. [...] INDICATION: Signs/Symptoms:Post-op knee. COMPARISON: None. ACCESSION NUMBER(S): [id number] ORDERING CLINICIAN: TIN WEST FINDINGS: Components of left knee arthroplasty are in anatomic alignment. Postoperative soft tissue gas. New left knee arthroplasty in anatomic alignment. MACRO: None Signed by: Herman Marquez 04/03/2024 11:33 AM Dictation workstation: [id number] Assessment/Plan Atrial fibrillation Eliquis resumed per orthopedic [...] to follow. SANDOVAL Marcos documented in this [facility] Work Phone: [phone]) 977-749506-10-2024 Note* Perioperative Nursing Note - Odilia Desai RN - 04/03/2024 11:50 AM EDT Transport at bedside. Patient transferred to Division Status Stable. [facility]06-10-2024 Note* Perioperative Nursing Note - Odilia Desai RN - 04/03/2024 10:00 AM EDT Patient received to [facility] [place] #3 from OR. Anesthesia at bedside. Report received. Initial assessmentcomplete. VSS on Material Processor. Patient resting appears comfortable. No signs or symptoms of painnoted. [facility] Work Phone: [phone]) [phone] Hospital Discharge instructions* Discharge Instructions* Tin West MD - 04/03/2024 9:41 AM EDT Dressing: remove after 1 week. Call if any drainage is coming out of the bandage. Weight bearing: weight bear as tolerated Showering: may shower Bathing: no tub bathing or pools Driving: no driving Call with any concerns. documented in this [facility]Un[facility] Work Phone: 1([phone]) 447-906406-10-2024 Note* Op Note - Tin West MD - 04/03/2024 8:24 AM EDT Arthroplasty Resurfacing Total Knee 92905 - NE ARTHRP KNE CONDYLE&PLATU MEDIAL&LAT COMPARTMENTS Operative Note Date: 04/03/2024 OR Location: [facility] Name: Leeann Ordonez", : 1960, Age: 64 y.o., , Sex: female PRE Diagnosis Left knee osteoarthritis POST Diagnosis Same Procedures Left total knee arthroplasty subvastus approach Surgeons * Tin West - Primary Resident/Fellow/Other Night Club Manager: nitza Snowden joe Procedure Summary Implants: Styker Cemented Triathlon Total Knee: Femur size 3 posterior stabilized, size 3 primary tibial baseplate, size A32 N2Vac Patella, size 3x11 posterior stabilized N2Vac tibial bearing insert Anesthesia: LMA with adductor canal block ASA: III Anesthesia Staff: Anesthesiologist: Israel Corea MD FONDANT MACHINE OPERATOR: Nikki Alex APRN-FONDANT MACHINE OPERATOR Estimated Blood Loss: 50 mL Specimen: No specimens collected Staff: Detailer [employer]aceuticals: Katy Rodgers RN Scrub Person: Tesfaye Wright; Cy Sorto; Nikki Gr Drains and/or Catheters: 2 Hemovac Tourniquet Times: Total Tourniquet Time Documented: Thigh (Left) - 49 minutes Total: Thigh (Left) - 49 minutes Findings: Patient had severe degenerative changes with medial joint space rfqp-sv-iuvo apposition and peripheral osteophyte formation. Absent ACL. [...] tracking and varus valgus stability throughout. The [place] patella tracked normally. I everted the patella [...] Attestation: I performed the procedure. Tin West [facility] Work Phone: 1([phone]) [phone] Note* Pre-Procedure Note - Cynthia Lopez RN - 04/03/2024 7:57 AM EDT PREOP NERVE BLOCK COMPLETED, PATIENT TOLERATED WELL. PHOTO TO CHART [facility]06-10-2024 Attending History and physical note * Tin West MD - 04/03/2024 7:34 AM EDT H&P reviewed. The patient was examined and there are no changes to the H&P. Source Note - Nikki Zaragoza APRN-CERTIFIED PEST CONTROL TECHNICIAN - 03/21/2024 1:45 PM EDT CPM/PAT Evaluation [...] 03/21/2024 under heading Epic notes. SANDOVAL Mcmullen [facility] Work Phone: 1(423) 272-502806-10-2024 History and physical note* Tin West MD - 04/03/2024 7:34 AM EDT H&P reviewed. The patient was examined and there are no changes to the H&P. Source Note - Nikki Zaragoza, POLICE WORKER-CERTIFIED PEST CONTROL TECHNICIAN - 03/21/2024 1:45 PM EDT CPM/PAT Evaluation [...] Epic notes. SANDOVAL Mcmullen documented in this [facility] Work Phone: [phone]) 359-502007-12-2023 Discharge summary Author Susan Zambrano [facility] May 05, 2023 5:28pm Note Date/Time May 05, 2023 5:28 pm [facility] Physical Therapy [facility] [address] [place] [address]. [address] [place] [address] / REHABILITATION SERVICES DISCHARGE SUMMARY MR#: [id number] Acct: [id number] Name: LEEANN CROCKETT Rep #: [id number] : 1960 63 From: Susan Zambrano [...] please feel free to call me at [phone]. Thank you for the referral of thispatient. Sincerely, JOYCE Siddiqui Balance/Gait/Functional tests Balance/Special Test Scores Lower Extremity Functional Score: 55 <Electronically signed by Susan Zambrano MPT> 05/05/23 3097 CC: Dr. Yennifer Johnson MD; Dr. Nate Rubio MD ~ Signed [facility] Work Phone: 1([phone]) 387-486705-03-[address] Rubio [facility] February 24, 2023 8:18am Note Date/Time February 24, 2023 8:18am [facility] Medical Records Department [address] [place] [address] Instructions for Home/Discharge Instructions 02/24/23 0817 MR#: [id number] Acct: [id number] Name: LEEANN CROCKETT Rep #:[id number] : 1960 62 From: Nate Rubio MD PCP: Dr. Yennifer Johnson MD Status:R [place] [facility] [place] Instructions Diet Discharge Diet: No restrictions [...] CC: Dr. Yennifer Johnson MD ~ Signed [facility] Work Phone: [phone]) 975-528205-03-2023 History and physical note Author Dr. Rubio [facility] February 24, 2023 7:11am Note Date/Time February 24, 2023 7:11am [facility] Medical Records Department [address] [place] [address] History & Physical Exam 02/24/23 0709 MR#: [id number] Acct: [id number] Name: LEEANN CROCKETT Rep #:[id number] : 1960 62 From: Nate Rubio MD PCP: Dr. Yennifer Johnson MD Status:R [facility] Location: [place] [address] HPI - General HPI Narrative LEEANN CROCKETT, is a 62 F who presents for left knee arthroscopy, MM and debridement. No changes to h and p. OK to proceed, left knee marked. RAB and post op WBAT with crutches discussed. Patient allergic to many narcotics, so getting spinal and block, will use tylenol and NSAIDs post op. No further questions. MR#: [id number] Acct: [id number] Name:? LEEANN CROCKETT Rep #: [id number] : 1960 ? ? Provider: Dr. Nate Rubio MD Age/Sex:? 62/F ? ? Location: [facility] Status: Signed Intake Vital Signs ? 07/27/2213:39 [...] Grind: Yes KNEE: normal gait Supplemental Info [facility] Imaging Services [address] [place] [address] Lower Ext Joint Only (Routine) MR#:? [id number] Acct: [id number] Name:? LEEANN CROCKETT Rep #: [id number] :?? 1960 F 62 ? From:? ? Maximilian Garnett MD PCP: Dr. Yennifer Johnson MD ? Status: REG CLI Study: Lower Ext Joint Only (Routine) ? Date of Exam: 02/02/23 Exam# [id number] ? Ordering Dr:? Nate Rubio MD STUDY:? [...] 23:49 EDT Reading Location ID and State: [facility] / [place] , Service support? , ? Agree with [...] proceed.? We will have to get her trackman Dr. Lopez clearance / opinion on when [...] surgery, and signed the informed consent documentation.? [facility] Medical History (Updated 02/17/23 @ 13:56 by [...] Johnson MD; Dr. Nate Rubio MD~ Signed [facility] Work Phone: [phone]) [phone] Procedure [facility] Evaluation noteNo assessment information availableUniversity [facility] Work Phone: evaluation note* Diagnosis Onset Date Resolution Status Anxiety and depression acute Change in bowel habits acute Fecal incontinence acute GERD (gastroesophageal reflux disease) acute [facility] Work Phone: Evaluation note* Diagnosis Onset Date Resolution Status Anxiety and depression acute Change in bowel habits acute Fecal incontinence acute GERD (gastroesophageal reflux disease) acute Chest pressure acute Fatigue acute Paroxysmal atrial fibrillation acute Essential (primary) hypertension chronic Mixed hyperlipidemia chronic Nonrheumatic aortic valve insufficiency chronic Palpitations chronic [facility] Work Phone: Evaluation note* Diagnosis [...] left knee pain non eactive Fall noneactive [facility] Work Phone: Evaluation note* Diagnosis [...] of popliteal space [Poe], left knee acute [facility] Work Phone: Evaluation note* Diagnosis Onset Date Resolution Status Palpable mass of soft tissue of knee noneactive Posterior left knee pain non eactive Fall noneactive Osteoarthritis of left knee acute Synovial cyst of popliteal space [Poe], left knee acute [facility] Work Phone: Evaluation note* Diagnosis Onset Date Resolution Status Osteoarthritis of left knee acute Osteoarthritis of left knee acute Synovial cyst of popliteal space [Poe], left knee acute Tear of medial meniscus of left knee acute [facility] Work Phone: Evaluation note* Diagnosis Onset Date Resolution Status Osteoarthritis of left knee acute Osteoarthritis of left knee acute Synovial cyst of popliteal space [Poe], left knee acute Tear of medial meniscus of left knee acute Osteoarthritis of left knee acute Tear of medial meniscus of left knee acute [facility] Work Phone: Evaluation note* Diagnosis [...] of medial meniscus of left knee acute [facility] Work Phone: Evaluation note* Diagnosis [...] of medial meniscus of left knee acute [facility] Work Phone: Evaluation note* Diagnosis Onset Date Resolution Status Tear of medial meniscus of left knee acute [facility] Work Phone: Evaluation note* Diagnosis Onset Date Resolution Status Paroxysmal atrial fibrillation acute Essential (primary) hypertension chronic Mixed hyperlipidemia chronic Nonrheumatic aortic valve insufficiency chronic Preventative health care acu te [facility] Work Phone: Evaluation note* Diagnosis Onset Date Resolution Status Preventative health care acu te Fatigue acute Paroxysmal atrial fibrillation acute Dizziness chronic Essential (primary) hypertension chronic Mixed hyperlipidemia chronic Nonrheumatic aortic valve insufficiency chronic Palpitations chronic [facility] Work Phone: Evaluation note* Diagnosis Arthritis of left knee- Primary Arthritis of left knee Urinary tract infection without hematuria, site unspecified HTN (hypertension) Unspecified essential hypertension Hyperlipidemia Other and unspecified hyperlipidemia Valvular heart disease Endocarditis, valve unspecified, unspecified cause Atrial fibrillation (Multi) Atrial fibrillation Asthma (HHS-HCC) Unspecified asthma Anxiety Anxiety state, unspecified documented in this encounter [facility] Work Phone: [facility] Work Phone: [facility] Work Phone: Hospital Discharge instructionsAmbulatory Orders* Dermatology Location: None [facility] Work Phone: Hospital Discharge instructionsAmbulatory Orders* Plastic surgery Location: None [facility] Work Phone: Hospital Discharge instructionsAmbulatory Orders* Ears, Nose and Throat Location: None [facility] Work Phone: Progress note Author Cy Peterson [facility] Note Date/Time May 02, 2025 9:37a m [facility] [address] [address] OFFICE VISIT Date of Service: 05/02/25 0900 MR#: [id number] Acct: [id number] Name: LEEANN CROCKETT Rep #: [id number] : 1960 From: Cy Peterson MD Age/Sex: 65/F Location: [facility] Status: Signed HPI Subjective Date of Service 05/02/25 Chief Complaint Referred for thrombocytosis. History of Present Illness 65y.o.woman was found to slight elevation of PLT and referred for evaluation. She denies bleeding disorders, anemia. [facility] Medical History Thrombocytosis High cholesterol Tear of [...] Cosigner Signature: Date (if applicable) CC: Dr. eYnnifer Johnson MD ~ [facility] Work Phone: Progress note Author Cy Peterson [facility] Note Date/Time August 01, 2025 11 :19am [facility] [address] [place] [address] OFFICE VISIT Date of Service: 08/01/25 1048 MR#: [id number] Acct: [id number] Name: LEEANN CROCKETT Rep #: [id number] : 1960 From: Cy Peterson MD Age/Sex: 65/F Location: [facility] Status: Signed HPI Subjective Date of Service 08/01/25 Chief Complaint F/u for thrombocytopenia. History of Present Illness 65y.o.woman was found to slight elevation of PLT and referred for evaluation. She denies bleeding disorders, anemia. She is on observation, comes for follow up. Feels well. [facility] Medical History Localized swelling of finger of [...] applicable) CC: Dr. Yennifer Johnson MD ~ [facility] Work Phone: Progress note Author Cy Maldonado [facility] Note Date/Time August 08, 2025 1 1:43am [facility] [address] [place] [address] OFFICE VISIT Date of Service: 08/08/25 MR#: [id number] Acct: [id number] Name: LEEANN CROCKETT Rep #: [id number] : 1960 Provider: Dr. Abdullahi Maldonado DO Age/Sex: 65/F Location: [facility] Status: Signed with Addenda ADDENDUM by Gale [...] for injection. Under sterile conditions, injected the patientsright index finger with .25cc bupivacaine .25cc depo medrol. The patient tolerated the injection well without any noted complication. Patient should call our office if redness develops, pain worsens or if they have any concerns. Office Meds Depo-Medrol 40 mg/mL suspension for injection Performing Provider: Cy Maldonado DO Performing Location: [facility] Administered by: Cy Maldonado DO on 08/08/25 15:58 Dose Route Admin Location Dispensed Lot Number Expiration Date Pack age NDC NDC Bung Dropper 10 mg intra-articular right index finger 0.25 mL [id number] 06/25/27 0009 -0280-03 [id number] [facility] Date _ cc: ~* Signed Intake Vital Signs 08/01/25 10:49 Height [...] Reaction (Mild, Verified 08/08/25 11:03) Other Medications ?Medication ?Instructions ?Recorded ?Confirmed ?Type disability placard #1 ea 01/20/21 10/15/25 Rx multivitamin (Daily Multi-Vitamin 1 tab PO DAILY 12/1608/08/25 History tablet) apixaban 5 mg tablet (Eliquis) 5 mg PO BID #180 tabs 0 11/06/24 08/08/25 Rx diltiazem HCl 240 mg 240 mg PO DAILY #90 caps 08/08/25 Rx capsule,extended release 24 hr ezetimibe 10 mg tablet 10 mg PO DAILY #90 tabs 10/2508/08/25 Rx flecainide 100 mg tablet 100 mg PO Q12H #180 tabs 03/1808/08/25 Rx gemfibrozil 600 mg tablet See Rx Instructions .Route 0 04/26/25 08/08/25 Rx .COMPLEX #180 tabs losartan 50 mg-hydrochlorothiazide 1 tab PO QDAY #90 T ABLETS 04/26/25 08/08/25 Rx 12.5 mg tablet eszopiclone 2 mg tablet (Lunesta) 1 mg (1/2 x 2 mg) PO QHS #30 tabs 07/27/25 08/08/25 Rx sertraline 50 mg tablet 50 mg PO QDAY #30 tabs 07/2708/08/25 Rx Have you fallen in the past [...] history: DOES USE ASPIRIN DOES USE IBUPROFEN HPI RIGHT HAND Details: This documentation accurately reflects the service provided and the decisions made by me, Dr. Cy Maldonado, DO 08/08/25 0759. Part of today?s visit was documented by Shirley VELÁZQUEZ, acting as scribe. LEEANN CROCKETT is a 65 year old F new to me with medical history significant for but not limited to thrombocytosis, left ventricular hypertrophy, atrial fibrillation on Eliquis twice daily 5 mg, here today for a cyst on her index finger that she has had 4 or 5 months. There has been no trauma to the finger that she can recall. She states that it started out fairly small then one day she woke up and noticed it was bigger. The cyst in tender and does prevent her from completely bending her finger. If she does try to bend the finger to a certain point it does become painful to bend as well. Ortho Exam General General: Yes no acute distress and Yes well groomed Neurologic: Yes alert and Yes oriented x3 Psychologic: Yes reasonable and appropriate Right Wrist/Hand Skin/Wound: No Swelling, No Ecchymosis, Yes nail intact and Yes capillary refill normal WRIST: stiffness at pip joint mucus cyst on dorsum of dip joint prominence of dorsal ulnar side of dip non tender corresponds with dorsal spur Left Wrist/Hand Skin/Wound: No Swelling and No Ecchymosis Supplemental Info 08/08/2025 x-ray right index finger: There is severe degenerative changes of the DIP joint with large dorsal osteophytes Coding Level of Care Code Off vis,est,level 4 Diagnoses Mucous cyst of digit of hand M67.449 Arthritis of finger M19.049 Assessment and Plan Assessment and Plan (1) Mucous cyst of digit of hand: Status: Acute (2) Arthritis of finger: Status: Acute Orders: Orders Finger(s) Min 2 Views Today R22.31 - Localized swelling, mass and lump, right upper limb Ortho Aspiration Today M71.341 - Other bursal cyst, right hand Ortho Injections Today M71.341 - Other bursal cyst, right hand Medications: New Kenalog (triamcinolone acetonide) 10 mg (0.25 mL) intra-articular ONCE 0.25 mL 0RF NS M71.341 - Other bursal cyst, right hand Plan Patient is here today for mucus cyst of her right index finger. 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 I spoke with patient that due to the arthritis this can cause fluid in the joint which does cause the pocket of fluid that she had. I spoke with patient that we can do an aspiration and injection but it is very likely that it would come back. Some other options are removal of the cyst, removal of the bone spur . If she wished to proceed with any of the surgical options I would refer her to an upper extremity specialist. Patient wishes to proceed with an aspiration and injection today. She tolerated this well a small amount of clear yellow gelatinous fluid was removed injection was given. Clinical Quality Measures Falls Risk Screening/Assistive Devices Have you fallen in the past year?: No 08/08/25 1217 <Electronically signed by Cy kirkpatrick DO> Date _ Cy Harden Signature: Date (if applicable) CC: ~ [facility] Work Phone: Reason for referral (narrative)No reason for referral information availableWSt. Mary[facility] Work Phone: Summary Purpose Family [...] Date/ Time Advance Directives No May 26 018 7:34am Living Will No May 04, 2022 4:57pm Power of Loan Broker No May 04 4:57pm Advance Directive Response Recorded Date/ Time Advance Directives No May 26 018 6:34am Living Will No May 04, 2022 3:57pm Power of Loan Broker No May 04 3:57pm Advance Directive Response Recorded Date/ Time Name of Medical Power of Loan Broker - STEPHANIE RIVERA February 17, 2023 1:47pm Advance Directives No May 26 018 7:34am Living Will Yes February 17, 2023 1:47pm Power of Loan Broker Yes February 17 1:47pm Advance Directive Response Recorded Date/ Time Advance Directives No May 26 018 7:34am Living Will Yes February 17, 2023 1:47pm Power of Loan Broker Yes February 17 1:47pm Advance Directive Response Recorded Date/ Time Advance Directives No May 26 018 6:34am Living Will Yes October 06, 023 10:45am Power of Loan Broker Yes October 06, 2023 10:45am Advance Directive Response Recorded Date/ Time Advance Directives No May 26 018 7:34am Living Will Yes October 06, 023 11:45am Power of Loan Broker Yes October 06, 2023 11:45am Date Activated Date Inactivated Comments 04/03/2024 6:17 AM Question Answer Comments Plan of Care: Code Status Discussion Not Compl eted Decision Maker: Provider Rationale: Patient condition does not warra nt discussion Advance Directive Response Recorded Date/ Time Advance Directives No May 26, 018 7:34am Chief Complaint and Reason for Visit [...] 8:45am Thrombocytosis August 01, 2025 10 :00am Chief Complaint Admit Date 1 Y FU April 26, 2025 12:56 pm E-ORDER April 26, 2025 1:25p m THROMBOCYTOSIS May 02, 2025 8:49a m palpitations May 11, 2025 6:48 am palpitations May 11, 2025 7:05 am dyspnea/SOB May 12, 2025 7:56 am Amb Documentation May 14, 2025 11:2 2am MED FU May 28, 2025 7:4 0am 2 M July 27, 2025 7: 35am 3 M FU July 27, 2025 8: 45am DIZZINESS August 01, 2025 7: 46am 3 MONTHS LABS August 01, 2025 9: 57am 3 MONTHS LABS August 01, 2025 10 :00am Amb Documentation August 02, 2025 2: 14pm RIGHT HAND August 08, 2025 1 0:51am RM 2 August 08, 2025 1 1:21am CHEST TIGHTNESS August 15, 2025 6 :11am CHEST TIGHTNESS August 15, 2025 9 :42am Amb Documentation August 16, 2025 8 :36am Reason for Visit Admit Date Dyspnea on [...] tightness July 27, 2025 8: 45am Dizziness October 3rd, 2025 8: 45am Mixed hyperlipidemia July 27, 2025 8 :45am Palpitations July 27, 2025 8: 45am Paroxysmal atrial fibrillation July 272024 8:45am Thrombocytosis August 01, 2025 10 :00am Arthritis of finger August 08, 2025 1 0:51am Mucous cyst of digit of hand July 10:51am Reason for Referral Specialty Diagnoses / Procedures Referred By Contac t Referred To Contact Home Health Services Diagnoses Arthritis of left knee Keshawn Stevenson, POLICE WORKER-CERTIFIED PEST CONTROL TECHNICIAN [address] [place] [id number] Referral ID Status Reason Start Date Expiration Date Visits Requested Visits Authorized [id number] Pending Review Specialty Services Required 04/04/2024 04/04/[phone] Additional Source Comments INFORMATION SOURCE (unrecogn ized section and content) DATE CREATED AUTHOR 05/23/2020 [facility] DATE CREATED AUTHOR AUTHOR'S ORGANIZ ATION 03/26/2024 [facility] DATE CREATED AUTHOR AUTHOR'S ORGANIZ ATION 04/07/2024 [facility] DATE CREATED AUTHOR AUTHOR'S ORGANIZ ATION 08/23/2025 [facility] Goals (unrecognized section and content) Goals [...] Primary Care Provider, Refer ring Provider Active Pallavi Amaya PA Attending Provider Active Team Status: Inactive Member [...] Yennifer Johnson MD Primary Care Provider Active Pallavi Amaya PA Attending Provider, Referring Pro vider Active Team [...] Attending Provider, Referring Provider Active Karlie Johnson RIVETING MACHINE OPERATOR AUTOMATIC, RIVETING MACHINE OPERATOR AUTOMATIC-C Other Provider Active Team Status: Inactive Member Role Status Dates Dr. Yennifer Johnson MD Primary Care Provider Active Nate Rubio MD Attending Provider Active Team Status: Inactive Member Role Status Dates Dr. Yennifer Johnson MD Primary Care Provider Active Karlie Johnson RIVETING MACHINE OPERATOR AUTOMATIC, RIVETING MACHINE OPERATOR AUTOMATIC-C Attending Provider, Referring P gaurav Active Team Status: Inactive Member Role Status Dates Dr. Yennifer Johnson MD Primary Care Provider, Refer ring Provider Active Karlie Johnson RIVETING MACHINE OPERATOR AUTOMATIC, RIVETING MACHINE OPERATOR AUTOMATIC-C Attending Provider Active Team Status: Inactive Member [...] MD Primary Care Provider Active Karlie Johnson RIVETING MACHINE OPERATOR AUTOMATIC, RIVETING MACHINE OPERATOR AUTOMATIC-C Attending Provider, Referring P rovider Active Team Status: Active Member Role Status Dates Dr. Yennifer Johnson MD Primary Care Provider Active Dr. Salazar Sim MD Attending Provider Active Karlie Johnson RIVETING MACHINE OPERATOR AUTOMATIC, RIVETING MACHINE OPERATOR AUTOMATIC-C Referring Provider Active Team Status: Active Member Role Status Dates Dr. Yennifer Johnson MD Primary Care Provider Active Karlie Johnson RIVETING MACHINE OPERATOR AUTOMATIC, RIVETING MACHINE OPERATOR AUTOMATIC-C Attending Provider Active Team Status: Active Member Role Status Dates Dr. Yennifer Johnson MD Primary Care Provider Active Dr. Imtiaz Mccracken MD Attending Provider Active Team Status: Inactive Member Role Status Dates Dr. Yennifer Johnson MD Primary Care Provider Active Start: March 24, 2025 End: March 24, 2025 Larry Rodriguez RIVETING MACHINE OPERATOR AUTOMATIC, RIVETING MACHINE OPERATOR AUTOMATIC-C Attending Provider Active S tart: March 24, 2025 End: March 24, 2025 Larry Rodriguez RIVETING MACHINE OPERATOR AUTOMATIC, RIVETING MACHINE OPERATOR AUTOMATIC-C Referring Provider Active S tart: March 24, 2025 End: March 24, 2025 Team Status: Active Member Role/Relationship Status Dates Dr. Yennifer Johnson MD Family Provider Active Dr. Yennifer Johnson MD Primary Care Provider Active Team Status: Inactive Member Role/Relationship Status Dates Dr. Yennifer Johnson MD Primary Care Provider Active Start: March 24, 2025 End: March 24, 2025 Larry Rodriguez RIVETING MACHINE OPERATOR AUTOMATIC, RIVETING MACHINE OPERATOR AUTOMATIC-C Attending Provider Active S tart: March 24, 2025 End: March 24, 2025 Larry Rodriguez RIVETING MACHINE OPERATOR AUTOMATIC, RIVETING MACHINE OPERATOR AUTOMATIC-C Referring Provider Active S tart: March 24, 2025 End: March 24, 2025 Team Status: Inactive Member Role/Relationship Status Dates Dr. Yennifer Johnson MD Primary Care Provider Active Start: April 26, 2025 End: April 26, 2025 Dr. Yennifer Johnson MD Referring Provider Active Start: April 26, 2025 End: April 26, 2025 Karlie Johnson RIVETING MACHINE OPERATOR AUTOMATIC, RIVETING MACHINE OPERATOR AUTOMATIC-C Attending Provider Active Start: April 26, 2025 End: April 26, 2025 Team Status: Active Member Role/Relationship Status Dates Dr. Yennifer Johnson MD Primary Care Provider Active Start: April 26, 2025 Karlie Johnson RIVETING MACHINE OPERATOR AUTOMATIC, RIVETING MACHINE OPERATOR AUTOMATIC-C Attending Provider Active Start: April 26, 2025 Karlie Johnson RIVETING MACHINE OPERATOR AUTOMATIC, RIVETING MACHINE OPERATOR AUTOMATIC-C Referring Provider Active Start: April 26, 2025 [...] 2025 End: April 26, 2025 Karlie Johnson RIVETING MACHINE OPERATOR AUTOMATIC, RIVETING MACHINE OPERATOR AUTOMATIC-C Attending Provider Active Start: April 26, 2025 End: April 26, 2025 Karlie Johnson RIVETING MACHINE OPERATOR AUTOMATIC, RIVETING MACHINE OPERATOR AUTOMATIC-C Referring Provider Active Start: April 26, 2025 End: April 26, 2025 Team Status: Active Member Role/Relationship Status Dates Dr. Yennifer Johnson MD Primary Care Provider Active Start: May 11, 2025 Karlie Johnson RIVETING MACHINE OPERATOR AUTOMATIC, RIVETING MACHINE OPERATOR AUTOMATIC-C Attending Provider Active Start: May 11, 2025 Karlie Johnson RIVETING MACHINE OPERATOR AUTOMATIC, RIVETING MACHINE OPERATOR AUTOMATIC-C Referring Provider Active Start: May 11, 2025 Team Status: Active Member Role/Relationship Status Dates Dr. Yennifer Johnson MD Primary Care Provider Active Start: May 11, 2025 Dr. Imtiaz Mccracken MD Attending Provider Active S tart: May 11, 2025 Karlie Johnson RIVETING MACHINE OPERATOR AUTOMATIC, RIVETING MACHINE OPERATOR AUTOMATIC-C Referring Provider Active Start: May 11, 2025 Team Status: Inactive Member Role/Relationship Status Dates Dr. Yennifer Johnson MD Primary Care Provider Active Start: May 12, 2025 End: May 12, 2025 Karlie Johnson RIVETING MACHINE OPERATOR AUTOMATIC, RIVETING MACHINE OPERATOR AUTOMATIC-C Attending Provider Active Start: May 12, 2025 End: May 12, 2025 Karlie Johnson RIVETING MACHINE OPERATOR AUTOMATIC, RIVETING MACHINE OPERATOR AUTOMATIC-C Referring Provider Active Start: May 12, 2025 End: May 12, 2025 Team Status: Active Member Role/Relationship Status Dates Dr. Yennifer Johnson MD Primary Care Provider Active Start: May 12, 2025 Dr. Imtiaz Mccracken MD Attending Provider Active S tart: May 12, 2025 Team Status: Active Member Role/Relationship Status Dates Dr. Yennifer Johnson MD Primary Care Provider Active Start: May 14, 2025 Karlie Johnson RIVETING MACHINE OPERATOR AUTOMATIC, RIVETING MACHINE OPERATOR AUTOMATIC-C Attending Provider Active Start: May 14, 2025 Team Status: Inactive Member Role/Relationship Status Dates Dr. Yennifer Johnson MD Primary Care Provider Active Start: May 11, 2025 End: May 11, 2025 Karlie Johnson RIVETING MACHINE OPERATOR AUTOMATIC, RIVETING MACHINE OPERATOR AUTOMATIC-C Attending Provider Active Start: May 11, 2025 End: May 11, 2025 Karlie Johnson RIVETING MACHINE OPERATOR AUTOMATIC, RIVETING MACHINE OPERATOR AUTOMATIC-C Referring Provider Active Start: May 11, 2025 [...] 2025 End: April 26, 2025 Karlie Johnson RIVETING MACHINE OPERATOR AUTOMATIC, RIVETING MACHINE OPERATOR AUTOMATIC-C Attending physician Active Start: April 26, 2025 End: April 26, 2025 Team Status: Inactive Member Role/Relationship Status Dates Dr. Yennifer Johnson MD Primary care physician Activ e Start: April 26, 2025 End: April 26, 2025 Karlie Johnson RIVETING MACHINE OPERATOR AUTOMATIC, RIVETING MACHINE OPERATOR AUTOMATIC-C Attending physician Active Start: April 26, 2025 End: April 26, 2025 Karlie Johnson RIVETING MACHINE OPERATOR AUTOMATIC, RIVETING MACHINE OPERATOR AUTOMATIC-C Referring Provider Active Start: April 26, 2025 [...] 2025 End: May 11, 2025 Karlie Johnson RIVETING MACHINE OPERATOR AUTOMATIC, RIVETING MACHINE OPERATOR AUTOMATIC-C Attending physician Active Start: May 11, 2025 End: May 11, 2025 Karlie Johnson RIVETING MACHINE OPERATOR AUTOMATIC, RIVETING MACHINE OPERATOR AUTOMATIC-C Referring Provider Active Start: May 11, 2025 End: May 11, 2025 Team Status: Active Member Role/Relationship Status Dates Dr. Yennifer Johnson MD Primary care physician Activ e Start: May 11, 2025 Dr. Imtiaz Mccracken MD Attending physician Active Start: May 11, 2025 Karlie Johnson RIVETING MACHINE OPERATOR AUTOMATIC, RIVETING MACHINE OPERATOR AUTOMATIC-C Referring Provider Active Start: May 11, 2025 Team Status: Inactive Member Role/Relationship Status Dates Dr. Yennifer Johnson MD Primary care physician Activ e Start: May 12, 2025 End: May 12, 2025 Karlie Johnson RIVETING MACHINE OPERATOR AUTOMATIC, RIVETING MACHINE OPERATOR AUTOMATIC-C Attending physician Active Start: May 12, 2025 End: May 12, 2025 Karlie Johnson RIVETING MACHINE OPERATOR AUTOMATIC, RIVETING MACHINE OPERATOR AUTOMATIC-C Referring Provider Active Start: May 12, 2025 [...] e Start: May 14, 2025 Karlie Johnson RIVETING MACHINE OPERATOR AUTOMATIC, RIVETING MACHINE OPERATOR AUTOMATIC-C Attending physician Active Start: May 14, 2025 [...] 2025 End: July 27, 2025 Karlie Johnson RIVETING MACHINE OPERATOR AUTOMATIC, RIVETING MACHINE OPERATOR AUTOMATIC-C Attending physician Active Start: July 27, 2025 End: July 27, 2025 Team Status: Active Member Role/Relationship Status Dates Dr. Yennifer Johnson MD Primary care physician Activ e Start: August 01, 2025 Karlie Johnson RIVETING MACHINE OPERATOR AUTOMATIC, RIVETING MACHINE OPERATOR AUTOMATIC-C Attending physician Active Start: August 01, 2025 Karlie Johnson RIVETING MACHINE OPERATOR AUTOMATIC, RIVETING MACHINE OPERATOR AUTOMATIC-C Referring Provider Active Start: August 01, 2025 [...] August 01, 2025 End: August 01, 2025 Team Status: Inactive Member Role/Relationship Status Dates Dr. Yennifer Johnson MD Primary care physician Activ e Start: August 01, 2025 End: August 01, 2025 Karlie Johnson RIVETING MACHINE OPERATOR AUTOMATIC, RIVETING MACHINE OPERATOR AUTOMATIC-C Attending physician Active Start: August 01, 2025 End: August 01, 2025 Karlie Johnson RIVETING MACHINE OPERATOR AUTOMATIC, RIVETING MACHINE OPERATOR AUTOMATIC-C Referring Provider Active Start: August 01, 2025 End: August 01, 2025 Team Status: Active Member Role/Relationship Status Dates Dr. Yennifer Johnson MD Primary care physician Activ e Start: August 01, 2025 Dr. Salazar Sim MD Attending physician Active Start: August 01, 2025 Karlie Johnson RIVETING MACHINE OPERATOR AUTOMATIC, RIVETING MACHINE OPERATOR AUTOMATIC-C Referring Provider Active Start: August 01, 2025 [...] August 01, 2025 End: August 01, 2025 Team Status: Active Member Role/Relationship Status Dates Dr. Yennifer Johnson MD Primary care physician Activ e Start: August 02, 2025 Karlie Johnson RIVETING MACHINE OPERATOR AUTOMATIC, RIVETING MACHINE OPERATOR AUTOMATIC-C Attending physician Active Start: August 02, 2025 Team Status: Inactive Member Role/Relationship Status Dates Dr. Yennifer Johnson MD Primary care physician Activ e Start: August 08, 2025 End: August 08, 2025 Dr. Yennifer Johnson MD Referring Provider Active Start: August 08, 2025 End: August 08, 2025 Dr. Cy Maldonado DO Attending physician Active Start: August 08, 2025 End: August 08, 2025 Team Status: Inactive Member Role/Relationship Status Dates Dr. Yennifer Johnson MD Primary care physician Activ e Start: August 08, 2025 End: August 08, 2025 Dr. Imtiaz Mccracken MD Attending physician Active Start: August 08, 2025 End: August 08, 2025 Team Status: Active Member Role/Relationship Status Dates Dr. Yennifer Johnson MD Primary care physician Activ e Start: August 15, 2025 Karlie Johnson RIVETING MACHINE OPERATOR AUTOMATIC, RIVETING MACHINE OPERATOR AUTOMATIC-C Attending physician Active Start: August 15, 2025 Karlie Johnson NP, RIVETING MACHINE OPERATOR AUTOMATIC-C Referring Provider Active Start: August 15, 2025 Team Status: Active Member Role/Relationship Status Dates Dr. Yennifer Johnson MD Primary care physician Activ e Start: August 15, 2025 Karlie Johnson RIVETING MACHINE OPERATOR AUTOMATIC, RIVETING MACHINE OPERATOR AUTOMATIC-C Referring Provider Active Start: August 15, 2025 Karlie Johnson NP, RIVETING MACHINE OPERATOR AUTOMATIC-C Nurse Practitioner Active Start: August 15, 2025 Dr. María Abarca MD Attending physician Active Start: August 15, 2025 Team Status: Active Member Role/Relationship Status Dates Dr. Yennifer Johnson MD Primary care physician Activ e Start: August 16, 2025 Karlie Johnson NP, RIVETING MACHINE OPERATOR AUTOMATIC-C Attending physician Active Start: August 16, 2025 Reason for Visit (unrecogniz ed section and content) Specialty Diagnoses / Procedures Referred By Arnie alvarez Referred To Contact Diagnoses Primary osteoarthritis of left knee LEFT KNEE OSTEOARTHRITIS Procedures NE ARTHRP KNE CONDYLE&PLATU MEDIAL&LAT COMPARTMENTS Arthroplasty Resurfacing Total Knee Tin West MD [address] [facility] [address] [place] [address] [facility] [place] [address] [place] [address] Referral ID Status Reason Start Date Expiration Date Visits Re quested Visits Authorized [id number] 1 1 Scheduled Active and Recently Administ ered Medications (unrecognized section and content) Medication Order 04/02/2024 04/03/2024 04/04/2024 acetaminophen (Tylenol) tablet 1,000 mg 1,000 mg, oral, Every 6 hours, First dose on 6/10/24 at 1300, Phase II/On Unit, If ordered PRN for pain, nurse is permitted to administer this medication for higher pain scores based on patient preference? Yes 1308 (Given - Provider: Joanne Shetty RN - Comment: scheduled q 6)1830 (Given - Provider: Pao Foley RN) 0023 (Given - Provider: Alyssa Graham, ANNI)0649 (Given - Provider: Alyssa Graham, RN)1352 (Given - Provider: Pao Foley RN)1900 [...] Indications: Surgical Prophylaxis 0809 (Given - Provider: Nikik Alex APRN-FONDANT MACHINE OPERATOR) ceFAZolin in dextrose (iso-os) (Ancef) IVPB 2 [...] Joanne Shetty RN)2153 (Given - Provider: Alyssa Graham, ANNI) 0850 (Given - Provider: Pao Foley RN)2100 [...] block 0751 (Given - Provider: Cynthia Lopez, ANNI - Comment: PREOP NERVE BLOCK) multivitamin 1 tablet 1 tablet, oral, Daily, First dose on Wed04/03/24 at 1230, Phase II/On Unit 1310 (Given - Provider: Joanne Shetty RN) 0850 (Given - Provider: Pao Foley, ANNI) polyethylene glycol (Glycolax, Miralax) packet 17 g [...] 0645, Preprocedure 0705 (New Bag - Provider: Alreth Ramon RN)0759 (Continued by Anesthesia - Provider: Nikki Alex APRN-FONDANT MACHINE OPERATOR)0915 (New Bag - Provider: ANNALEE Walsh)1212 (Stopped [...] 92% 1230 (Start - Provider: Héctor Simental, COLOR CONTROL OPERATOR) PRN Medication Order 04/02/2024 04/03/2024 04/04/2024 [id number] [...] Graham, ANNI) 0607 (Given - Provider: Alyssa Graham RN) ondansetron (Zofran) injection 4 mg 4 mg, [...] BE BASED ON THE PRIMARY CLINICAL RECORDS. [facility]. provides no warranty or guarantee of the accuracy or completeness of information in this document.
[2025-09-29 09:00] LABS: AST(SGOT) 23 U/L (<=31); Alanine Aminotransfer ALT/SGPT 18 U/L (<=34); Albumin, Serum 4.4 g/dL (3.4-4.8); Alkaline Phosphatase 77 U/L (35-104); Bilirubin, Direct 0.17 mg/dL (0.00-0.30); Cholesterol 194 mg/dL (<=200); Globulin 3.0 g/dL (2.2-4.2); Low Density Lipoprotein Calc. 123 mg/dL; Triglycerides 79 mg/dL; Very Low Density Lipoprotein 16 mg/dL (5-40); cholesterol:hdl ratio screen 3.42
== END | disposition home or self-care (01) ==
LOC: LAB 07:44
PROVIDERS: PCP Internal Medicine; Referring Provider Nurse Practitioner Family; Visit Provider Nurse Practitioner Family
DX: E78.2 Mixed hyperlipidemia (principal)
CPT/HCPCS: 36415; 80061; 80076